=== PATIENT | male | born 1955 | race African-American/Black ===

== ENCOUNTER 2016-07-21 11:48 | Inpatient (IN) | payer MEDICAID ==
[2016-07-21] MEDS ORDERED: FUROSEMIDE INJ/PF 100 MG/10 ML SDV IV ONE (12:00)
[2016-07-21] MEDS ORDERED: METHYLPREDNISOLONE INJ 125 MG/2 ML SDV IV ONE (12:01)
[2016-07-21] MEDS ORDERED: CEFTRIAXONE 2 GM/D5W RTU 50 ML IV ONE (12:02)
[2016-07-21] MEDS ORDERED: LORAZEPAM INJ 2 MG/1 ML VIAL IV ONE (12:03)
[2016-07-21] MEDS ORDERED: AZITHROMYCIN INJ 500 MG VIAL IV ONE (12:03)
[2016-07-21] MEDS: MAGNESIUM SULFATE/D5W 100 ML IV SCH ×2 (12:11→13:30)
[2016-07-21] MEDS ORDERED: ETOMIDATE INJ/PF 20 MG/10 ML SDV IV ONE ×2 (12:16→13:26)
[2016-07-21] MEDS ORDERED: PROPOFOL 100 ML IV ONE ×4 (12:16→17:48)
[2016-07-21] MEDS ORDERED: FENTANYL CITRATE INJ/PF 100 MCG/2 ML AMPUL ONE (12:34)
[2016-07-21 12:35] LABS: ARTERIAL BLOOD BASE EXCESS -7.3 mmol/L; ARTERIAL BLOOD O2 SATURATION 66.8 % (94-98)
[2016-07-21 12:36] LABS: ABSOLUTE BASOPHILS # (AUTO) 0.1 10^3/uL (0.0-0.2); ABSOLUTE EOSINOPHILS # (AUTO) 0.1 10^3/uL (0.0-0.6); ABSOLUTE LYMPHOCYTES (AUTO) 4.2 10^3/uL (0.5-4.7); ABSOLUTE NEUT (AUTO) 7.5 10^3/uL (1.7-8.2); BASOPHILS % (AUTO) 0.8 % (0-2); EOSINOPHILS % (AUTO) 1.1 % (0-6); HEMATOCRIT 41.4 % (37.9-51.0); HEMOGLOBIN 13.7 g/dL (13.5-17.0); HGB HCT DIFFERENCE -0.3; LYMPHOCYTES % (AUTO) 32.4 % (13-45); MEAN CORPUSCULAR HEMOGLOBIN 29.9 pg (27.0-33.4); MEAN CORPUSCULAR VOLUME 91 fl (80-97); MONOCYTES % (AUTO) 7.6 % (3-13); RED BLOOD COUNT 4.58 10^6/uL (4.35-5.55); RED CELL DISTRIBUTION WIDTH 15.5 % (11.5-14.0); SEGMENTED NEUTROPHILS % (AUTO) 58.1 % (42-78); WHITE BLOOD COUNT 12.8 10^3/uL (4.0-10.5)
[2016-07-21 12:56] LABS: ALANINE AMINOTRANSFERASE 103 U/L (21-72); ALBUMIN 3.4 g/dL (3.5-5.0); ALKALINE PHOSPHATASE 108 U/L (38-126); ANION GAP 15 (5-19); ASPARTATE AMINO TRANSFERASE 94 U/L (17-59); BILIRUBIN,TOTAL 0.3 mg/dL (0.2-1.3); BLOOD UREA NITROGEN 31 mg/dL (7-20); CALCIUM 8.5 mg/dL (8.4-10.2); CARBON DIOXIDE 21 mmol/L (22-30); CHLORIDE 109 mmol/L (98-107); CREATINE KINASE 73 U/L (55-170); CREATININE RESULT 3.71 mg/dL (0.52-1.25); GLUCOSE 215 mg/dL (75-110); POTASSIUM 4.3 mmol/L (3.6-5.0); SODIUM 144.7 mmol/L (137-145); TOTAL PROTEIN 6.2 g/dL (6.3-8.2)
--- NOTE | 2016-07-21 12:58 | ER Document Report ---
ED General - General Mode of Arrival: Medic Information source: Patient, Emergency Med Personnel TRAVEL OUTSIDE OF THE [place] IN LAST 30 DAYS: No - HPI Patient complains to provider of: Respiratory Distress Onset: This morning Onset/Duration: Gradual, Worse Associated symptoms: Shortness of breath <JOSÉ GARAY - Last Filed: 07/21/16 12:34> <LIZZETHGABRIELA - Last Filed: 07/21/16 13:58> <LUCIANA ANNE - Last Filed: 07/21/16 17:05> - General Chief Complaint: Breathing Difficulty Stated Complaint: SHORTNESS OF BREATH Notes: Patient is a 61-year-old male presenting to the emergency department via EMS concerned of difficulty breathing onset 06:00 this morning. EMS states that the patient called around 08:30 this morning, but he decided he did not want to come into the emergency department because his symptoms appeared to be resolving. Approximately 5 minutes after EMS left, they were called back to the patient's home, and the patient was in respiratory distress. Patient had a blood pressure of 206/119 and a heart rate of 109 according to EMS. Patient has a history of HIV, and patient states that yesterday he used a gram of cocaine. EMS states that patient's EKG was normal. Patient stated that his bilateral lower extremity amputation was due to blood clots. (JOSÉ GARAY) - Related Data Allergies/Adverse Reactions: No Known Allergies Allergy (Verified 02/27/16 15:21) Past Medical History - General Information source: Patient, Emergency Med Personnel - Social History Smoking Status: Current Every Day Smoker Drug Abuse: Cocaine Family History: Reviewed & Not Pertinent, CAD, CVA, DM, Hyperlipidemia, Hypertension, Malignancy - Past Medical History Cardiac Medical History: Reports: Hx DVT, Hx Heart Attack, Hx Hypercholesterolemia, Hx Hypertension, Hx Peripheral Vascular Disease, Hx Pulmonary Embolism Pulmonary Medical History: Reports: Hx Bronchitis Endocrine Medical History: Reports: Hx Diabetes Mellitus Type 1, Hx Diabetes Mellitus Type 2 Renal/ Medical History: Reports: Hx Renal Insufficiency GI Medical History: Reports: Hx Gastroesophageal Reflux Disease Musculoskeltal Medical History: 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, Reports Hx Musculoskeletal Trauma Infectious Medical History: Reports: Hx HIV Past Surgical History: Reports: Hx Orthopedic Surgery - bilateral amputation, R BKA, L AKA, Hx Vascular Surgery - stents right chest, left arm clot removed, IVC filter - Immunizations Immunizations up to date: Yes Hx Diphtheria, Pertussis, Tetanus Vaccination: Yes - 2012 Hx Pneumococcal Vaccination: 07/21/10 <JARRODJOSÉ - Last Filed: 07/21/16 12:34> Review of Systems - Review of Systems -: Yes ROS unobtainable due to patient's medical condition - Patient unable to speak well secondary severe respiratory distress. <JOSÉ GARAY - Last Filed: 07/21/16 12:34> Physical Exam - Vital signs Interpretation: Hypertensive, Tachycardic, Hypoxic, Tachypneic - General General appearance: Alert In distress: Severe - HEENT Head: Normocephalic, Atraumatic Eyes: Normal Pupils: PERRL - Respiratory Respiratory status: Respiratory distress, Tripod position Breath sounds: Decreased air movement - Bilaterally, Rales - Abdominal Inspection: Obese Bowel sounds: Normal Tenderness: Nontender Organomegaly: No organomegaly - Back Back: Normal, Nontender - Extremities General upper extremity: Normal inspection General lower extremity: Other - Bilateral Amputations. - Neurological Neuro grossly intact: Yes Cognition: Normal Star Coma Scale Eye Opening: Spontaneous Star Coma Scale Verbal: Oriented Sandy Coma Scale Motor: Obeys Commands Star Coma Scale Total: 15 Speech: Other - Only able to speak in one word sentences secondary respiratory distress. - Psychological Associated symptoms: Anxious - Skin Skin Temperature: Warm Skin Moisture: Diaphoretic Skin Color: Normal <JOSÉ GARAY - Last Filed: 07/21/16 12:34> Course - Laboratory Result Diagrams: 07/21/16 11:49 07/21/16 12:15 <JOSÉ GARAY - Last Filed: 07/21/16 12:34> - Laboratory Result Diagrams: 07/21/16 12:15 07/21/16 12:15 <GABRIELA MOREAU - Last Filed: 07/21/16 13:58> - Laboratory Result Diagrams: 07/21/16 12:15 07/21/16 12:15 - Diagnostic Test Radiology reviewed: Image reviewed, Reports reviewed <LUCIANA ANNE - Last Filed: 07/21/16 17:05> - Re-evaluation Re-evalutation: 07/21/16 13:58 I personally performed the services described in the documentation, reviewed and edited the documentation which was dictated to my scribe in my presence, and it accurately records my words and actions. Patient presented to the emergency department with severe respiratory distress and hypoxia tripoding also diaphoretic hypertensive reports a recent usage of cocaine. Immediately at the bedside he was satting only 75% on 100% nonrebreather. Acute stat portable chest x-ray interpreted by myself prior to radiology interpretation is acute CHF I gave him 100 of Lasix 125 of Solu- Medrol IV antibiotics he did not turn around blood gas came back after patient decision was made to intubate him. He was extremely difficult intubation which I got on one attempt but he had some deformity of his airway some soft tissue mass and very narrow cords is able to pass a 7/2 ET tube without any difficulty. Patient required multiple doses of differently and paralytics to keep him sedated. I ordered a CT PE study when asked the nurse why it hasn't been done yet she said that the tech said the radiologist refused to do because the elevated creatinine I called Dr. Jose Manuel Richard said that was my call and I'm assuming the risk because I think the the risk of missing a pulmonary embolism outweighs the creatinine level and at this time I wanted stat CT PE study because it would make a difference in her need to transfer this patient or not. (GABRIELA MOREAU) 07/21/16 17:04 Dr. Becerril contacted per Dr. Moreau request for admission to ICU. He agrees to admit to ICU. (LUCIANA ANNE) - Vital Signs Vital signs: Temp Pulse Resp BP Pulse Ox 96.3 F L 16 141/92 H 96 07/21/16 13:18 07/21/16 17:01 07/21/16 17:01 07/21/16 17:01 (GABRIELA MOREAU) (LUCIANA ANNE) - Laboratory Laboratory results interpreted by me: 07/21/16 07/21/16 07/21/16 12:11 12:15 12:15 WBC 12.8 H RDW 15.5 H Carbonic Acid 1.67 H ABG pH 7.20 L* ABG pCO2 55.4 H ABG pO2 42.3 L ABG O2 Saturation 66.8 L Chloride 109 H Carbon Dioxide 21 L BUN 31 H Creatinine 3.71 H Est GFR ( Amer) 20 L Est GFR (Non-Af Amer) 17 L Glucose 215 H Lactic Acid AST 94 H ALT 103 H Total Protein 6.2 L Albumin 3.4 L Urine Protein Urine Glucose (UA) 07/21/16 07/21/16 12:15 13:00 WBC RDW Carbonic Acid ABG pH ABG pCO2 ABG pO2 ABG O2 Saturation Chloride Carbon Dioxide BUN Creatinine Est GFR ( Amer) Est GFR (Non-Af Amer) Glucose Lactic Acid 2.6 H AST ALT Total Protein Albumin Urine Protein 100 H Urine Glucose (UA) 150 H (GABRIELA MOREAU) (LUCIANA ANNE) Procedures - Intubation Orotracheal Time of Intubation: 12:15 Airway evaluation: Poss. upper airway obst. - Large, soft fleshy tissue mass. Patient extremely difficult airway with very narrow cords. Just barely able to pass a 7 ETT tube. Seems to be some distortion of the anatomy. Medications: Etomidate, Succinylcholine, Fentanyl, Diprivan, Other - Rocuronium Intubation method: Orotracheal ETT size: 7.0 ETT secured at: Lips ETT secured at (cm): 24 Breath Sounds after Intubation: Equal End tidal CO2 confirmed: Yes Post Intubation Xray: Yes Intubation Complications: No complications <JOSÉ GARAY - Last Filed: 07/21/16 12:34> Discharge <JOSÉ GARAY - Last Filed: 07/21/16 12:34> <GABRIELA MOREAU - Last Filed: 07/21/16 13:58> - [facility] Unit Admitted: ICU <LUCIANA ANNE - Last Filed: 07/21/16 17:05> - Discharge Clinical Impression: Cocaine abuse Respiratory failure Qualifiers: Chronicity: acute Respiratory failure complication: hypoxia Qualified Code(s): J96.01 - Acute respiratory failure with hypoxia Condition: Fair Disposition: ADMITTED INPATIENT Scribe Documentation - Scribe Written by Scribe:: José Garay 07/21/2016 12:59 acting as scribe for :: Lizzeth <JOSÉ GARAY - Last Filed: 07/21/16 12:34>
[2016-07-21 13:08] LABS: CREATINE KINASE MB 2.13 ng/mL (<4.55)
[2016-07-21 13:12] LABS: TROPONIN I 0.092 ng/mL
[2016-07-21] MEDS ORDERED: VECURONIUM BROMIDE INJ 10 MG VIAL IV ONE ×2 (13:14→13:15)
[2016-07-21] MEDS ORDERED: LIDOCAINE 0.5% INJ-PF (5 MG/ML) 50 ML SDV NEB ONE (13:15)
[2016-07-21] MEDS ORDERED: SUCCINYLCHOLINE CHLORIDE INJ 200 MG/10 ML VIAL IV ONE (13:25)
[2016-07-21] MEDS ORDERED: FENTANYL CITRATE INJ/PF 100 MCG/2 ML AMPUL IV ONE (13:26)
[2016-07-21] MEDS ORDERED: ROCURONIUM BROMIDE INJ 50 MG/5 ML VIAL IV ONE ×2 (13:27→15:23)
[2016-07-21 14:01] LABS: APPEARANCE,URINE CLEAR; BILIRUBIN,URINE NEGATIVE (NEGATIVE); GLUCOSE, URINE 150 mg/dL (NEGATIVE); KETONES,URINE NEGATIVE (NEGATIVE); LEUKOCYTE ESTERASE,URINE NEGATIVE (NEGATIVE); NITRITE,URINE NEGATIVE (NEGATIVE); PROTEIN,URINE 100 mg/dL (NEGATIVE); URINE SPECIFIC GRAVITY 1.009; UROBILINOGEN,URINE NEGATIVE mg/dL (<2.0)
[2016-07-21 14:17] LABS: URINE BARBITURATES SCREEN NEGATIVE; URINE METHADONE SCREEN NEGATIVE; URINE PHENCYCLIDINE SCREEN NEGATIVE
--- NOTE | 2016-07-21 15:06 | EKG REPORT ---
SEVERITY:- ABNORMAL ECG - SINUS TACHYCARDIA LEFT AXIS DEVIATION LEFT VENTRICULAR HYPERTROPHY NONSPECIFIC ANTEROLATERAL ST-T CHANGES : Confirmed by: Marco Young MD 21-Jul-2016 15:05:54
[2016-07-21] MEDS ORDERED: SUCCINYLCHOLINE CHLORIDE INJ 200 MG/10 ML VIAL ONE (15:23)
[2016-07-21] MEDS ORDERED: ONDANSETRON HCL INJ/PF 4 MG/2 ML SDV IV PRN (17:46)
[2016-07-21] MEDS ORDERED: PROPOFOL 100 ML IV PRN (17:59)
[2016-07-21] MEDS ORDERED: FUROSEMIDE 80 MG TABLET PO SCH (18:00)
[2016-07-21] MEDS ORDERED: HYDRALAZINE HCL INJ/PF 20 MG/1 ML SDV IV PRN (18:02)
[2016-07-21] MEDS ORDERED: MIDAZOLAM HCL 100 ML IV PRN (18:02)
[2016-07-21] MEDS ORDERED: INSULIN REG, HUMAN 100 UNIT/ML 3 ML VIAL (PYX) SUBCUT PRN (18:04)
[2016-07-21] MEDS ORDERED: GLUCAGON,HUMAN RECOMB 1 MG INJ IM PRN (18:04)
[2016-07-21] MEDS ORDERED: DEXTROSE 50%-WATER 25 GM/50 ML DISP.SYRIN IV PRN ×2 (18:04)
[2016-07-21] MEDS ORDERED: DEXTROSE 40% GEL 15 GM TUBE PO PRN ×2 (18:04)
[2016-07-21] MEDS ORDERED: MIDAZOLAM HCL 100 ML IV ONE (18:17)
--- NOTE | 2016-07-21 18:26 | PDOC H&P ---
History of Present Illness Admission Date/PCP: 07/21/16 17:05 Patient complains of: Respiratory distress History of Present Illness: KRISTY CANTU is a 61 year old male with HIV and substance abuse with cocaine reportedly was doing well until early this morning an ambulance was called as the patient was complaining of shortness of breath. He was eventually getting better and the patient refused to go to the hospital as it is improving. No reported fever or chills temperature spikes or paroxysmal coughing. Patient apparently used cocaine. A few hours later the ambulance was called again as the patient is in respiratory distress. Upon arrival systolic blood pressure was 206/119. The patient was placed on nonrebreather mask and was transferred to the emergency room. In the emergency room the patient received 100 mg of Lasix as chest x-ray shows pulmonary vascular congestion. Intravenous steroid was likewise given as well as nebulizers. Magnesium were likewise given. O2 saturation in the 80s despite measures. Patient developing altered level of consciousness and eventually intubation was performed. Patient did diurese well. CT scan of the chest shows pleural effusion but no pulmonary embolism. Patient is intubated and sedated. No other information available at this time. Information unobtainable. Past Medical History Past Medical History: Medication reconciliation pending verification from the patient's pharmacist. Cardiac Medical History: Reports: DVT, Myocardial Infarction, Hyperlipidema, Hypertension, Peripheral Vascular Disease, Pulmonary Embolism Pulmonary Medical History: Reports: Bronchitis Denies: Asthma, Chronic Obstructive Pulmonary Disease (COPD), Pneumonia Neurological Medical History: Denies: Seizures GI Medical History: Reports: Gastroesophageal Reflux Disease Musculoskeltal Medical History: Denies: Arthritis Hematology: Denies: Anemia Infectious Medical History: Reports: HIV Past Surgical History Past Surgical History: Reports: Orthopedic Surgery - bilateral amputation, R BKA , L AKA, Vascular Surgery - stents right chest, left arm clot removed, IVC filter, Other - Endoscopy Social History Smoking Status: Current Every Day Smoker Frequency of Alcohol Use: Social Hx Recreational Drug Use: Yes Drugs: Cocaine Hx Prescription Drug Abuse: No Family History Family History: CAD, CVA, DM, Hyperlipidemia, Hypertension, Malignancy Family History: Unobtainable due to patient condition. Information obtained from prior records. Parental Family History Reviewed: No - unobtainable Children Family History Reviewed: No Sibling(s) Family History Reviewed.: No Medication/Allergy Home Medications: Amlodipine Besylate 10 mg PO DAILY 02/17/16 Emtricitabine/Tenofovir [Truvada 200 mg-300 mg Tablet] 1 each PO Q2D 09/06/15 Enoxaparin Sodium [Lovenox Inj 100 mg/1 ml Disp.syrin] 100 mg SUBCUT Q12 Lisinopril [Zestril] 2.5 mg PO Q12H 09/06/15 Lopinavir/Ritonavir [Kaletra 200-50 mg Tablet] 2 each PO BID 09/06/15 Pravastatin Sodium 40 mg PO DAILY 09/06/15 Oxycodone HCl/Acetaminophen [Percocet 5-325 mg Tablet] 1 - 2 tab PO Q4H PRN #15 tablet 02/09/16 Dicyclomine HCl [Bentyl 20 mg Tablet] 20 mg PO DAILY 02/27/16 Hydrocodone/Acetaminophen [[place] 5-325 mg Tablet] 1 tab PO Q4 PRN #16 tablet Ondansetron [Zofran Odt 4 mg Tablet] 1 tab PO Q4H PRN #15 tab.rapdis 03/02/16 Methylprednisolone [Medrol Dosepack (4 mg/Tab) 21 Tab/Dosepak] 4 mg PO ASDIR PRN #21 tab.ds.pk 03/05/16 Dicyclomine HCl [Bentyl 20 mg Tablet] 20 mg PO QID #20 tablet 03/15/16 Peg 3350/Na Sulf,Bicarb,Cl/KCl [Golytely Packet] 1 each PO ONCE PRN #1 powd.pack 03/15/16 Allergies/Adverse Reactions: No Known Allergies Allergy (Verified 02/27/16 15:21) Review of Systems ROS unobtainable: Due to endotracheal tube, Due to mental status Physical Exam Vital Signs: Temp Pulse Resp BP Pulse Ox 96.3 F L 16 141/92 H 97 07/21/16 13:18 07/21/16 17:06 07/21/16 17:06 07/21/16 17:06 Intake & Output 07/20/16 07/21/16 07/22/16 06:59 06:59 06:59 Output Total 1700 Balance -1700 General appearance: PRESENT: no acute distress, other - Intubated, sedated Head exam: PRESENT: atraumatic, normocephalic Eye exam: PRESENT: conjunctiva pale, other - Pupils are sluggish bilateral. ABSENT: conjunctival injection, nystagmus, scleral icterus Ear exam: PRESENT: normal external ear exam. ABSENT: drainage Mouth exam: PRESENT: moist, neck supple Neck exam: ABSENT: carotid bruit, JVD, thyromegaly Respiratory exam: PRESENT: clear to auscultation ramila - Anteriorly, crackles - Occasional posteriorly, rales - Posteriorly in the lower fisher. ABSENT: accessory muscle use, rhonchi, wheezes Cardiovascular exam: PRESENT: RRR, tachycardia. ABSENT: diastolic murmur, gallop, systolic murmur Pulses: PRESENT: normal carotid pulses Vascular exam: PRESENT: normal capillary refill GI/Abdominal exam: PRESENT: hypoactive bowel sounds, soft. ABSENT: distended, organolmegaly Rectal exam: PRESENT: deferred Gentrourinary exam: PRESENT: indwelling catheter Extremities exam: PRESENT: other - Above-knee amputation and left, below knee amputation on the right Neurological exam: PRESENT: altered - Sedated and intubated on Diprivan drip Psychiatric exam: ABSENT: agitated Focused psych exam: ABSENT: restlessness Skin exam: PRESENT: dry, warm. ABSENT: cyanosis Results Impressions: Chest X-Ray 07/21/16 11:49 IMPRESSION: CARDIAC ENLARGEMENT. VASCULAR CONGESTION WITH SMALL RIGHT PLEURAL EFFUSION. Chest/Abdomen CTA 07/21/16 13:00 IMPRESSION: NO PULMONARY EMBOLI. SMALL BILATERAL PLEURAL EFFUSIONS. SATISFACTORY PLACEMENT ENDOTRACHEAL TUBE AND NASOGASTRIC TUBE. OTHERWISE STABLE APPEARANCE OF THE CHEST. Assessment & Plan - Diagnosis (1) Acute hypoxemic respiratory failure Is this a current diagnosis for this admission?: Yes (2) Acute on chronic combined systolic and diastolic congestive heart failure Is this a current diagnosis for this admission?: Yes (3) Hypertensive emergency Is this a current diagnosis for this admission?: Yes (4) Leukocytosis Qualifiers: Leukocytosis type: unspecified Qualified Code(s): D72.829 - Elevated white blood cell count, unspecified Is this a current diagnosis for this admission?: Yes (5) Chronic kidney disease, stage IV (severe) Is this a current diagnosis for this admission?: Yes (6) Cocaine abuse Is this a current diagnosis for this admission?: Yes (7) History of pulmonary embolism Is this a current diagnosis for this admission?: Yes (8) Hyperlipidemia Qualifiers: Hyperlipidemia type: unspecified Qualified Code(s): E78.5 - Hyperlipidemia, unspecified Is this a current diagnosis for this admission?: Yes (9) Hypercoagulable state Is this a current diagnosis for this admission?: Yes (10) HIV (human immunodeficiency virus infection) Is this a current diagnosis for this admission?: Yes - Time Time Spent: 50 to 70 Minutes - Inpatient Certification Based on my medical assessment, after consideration of the patient's comorbidities, presenting symptoms, or acuity I expect that the services needed warrant INPATIENT care.: Yes I certify that my determination is in accordance with my understanding of Medicare's requirements for reasonable and necessary INPATIENT services [42 CFR 412.3e].: Yes Medical Necessity: Significant Comorbidiites Make Outpatient Treatment Too Risky , Need Close Monitoring Due to Risk of Patient Decompensation, Need For Continuous Telemetry Monitoring, Risk of Complication if Not Cared For in Hospital, Risk of Diagnosis Which Will Require Inpatient Eval/Care/Monitoring Post Hospital Care: D/C Fire Official Documentation - Plan Summary Plan Summary: The patient will be admitted to the intensive care unit. We will continue ventilatory support and consult pulmonary for management. In the meantime will obtain 2-D echocardiogram and begin intravenous Lasix with the addition of Zaroxolyn and serially monitoring creatinine and electrolytes. We will continue on antihypertensive medication at home, add nitroglycerin paste and as needed hydralazine intravenously for systolic blood pressure greater than 180. We will send cultures of the blood and sputum. We will send sputum for PCP. We will check CD4 count. Empiric antibiotic with cefepime intravenously. Heparin for DVT prophylaxis. We will continue diprivan, add Versed if needed. We will insert nasogastric tube. Place the patient on [place] catheter for input and output. Further testing depends on initial evaluation and response to treatment as outlined above.
[2016-07-21 18:30] LABS: ARTERIAL BLOOD BASE EXCESS -5.2 mmol/L; ARTERIAL BLOOD O2 SATURATION 95.5 % (94-98)
[2016-07-21] MEDS: PROPOFOL 100 ML IV PRN ×2 (18:56→20:48)
[2016-07-21 19:41] LABS: THYROID STIMULATING HORMONE 0.41 uIU/mL (0.47-4.68)
[2016-07-21] MEDS: NITROGLYCERIN 2% OINTMENT 1 GM PACKET TP SCH (19:59)
[2016-07-21] MEDS ORDERED: INFLUENZA ADLT QUAD (36MOS+) 2016-17 VAC 0.5 ML SYR IM PRN (21:12)
[2016-07-21] MEDS ORDERED: CEFEPIME 1 GM/D5W RTU 1 GM/50 ML RTUPB IV ONE (21:37)
[2016-07-21] MEDS: HEPARIN SOD (PORCINE) 5,000 UNIT/ML 1 ML SYRINGE SUBCUT SCH (21:49)
[2016-07-21] MEDS: FAMOTIDINE INJ/PF 20 MG/2 ML SDV IV SCH (21:49)
[2016-07-21] MEDS: CEFEPIME 1 GM/D5W RTU 50 ML IV SCH (21:50)
[2016-07-21] MEDS ORDERED: METOLAZONE 2.5 MG TABLET NG SCH (22:00)
[2016-07-22] MEDS: NITROGLYCERIN 2% OINTMENT 1 GM PACKET TP SCH ×4 (01:01→17:49)
[2016-07-22] MEDS: PROPOFOL 100 ML IV PRN ×4 (02:15→17:48)
[2016-07-22] MEDS: MIDAZOLAM HCL 100 ML IV PRN (02:15)
[2016-07-22] MEDS: HEPARIN SOD (PORCINE) 5,000 UNIT/ML 1 ML SYRINGE SUBCUT SCH ×3 (05:13→22:07)
[2016-07-22 05:43] LABS: ARTERIAL BLOOD O2 SATURATION 94.3 % (94-98)
[2016-07-22 06:17] LABS: ABSOLUTE BASOPHILS # (AUTO) 0.1 10^3/uL (0.0-0.2); ABSOLUTE LYMPHOCYTES (AUTO) 1.4 10^3/uL (0.5-4.7); ABSOLUTE MONOCYTES (AUTO) 1.1 10^3/uL (0.1-1.4); ABSOLUTE NEUT (AUTO) 8.3 10^3/uL (1.7-8.2); BASOPHILS % (AUTO) 0.5 % (0-2); EOSINOPHILS % (AUTO) 0.1 % (0-6); HEMATOCRIT 37.2 % (37.9-51.0); HEMOGLOBIN 12.5 g/dL (13.5-17.0); HGB HCT DIFFERENCE 0.3; LYMPHOCYTES % (AUTO) 12.6 % (13-45); MEAN CORPUSCULAR HEMOGLOBIN 30.2 pg (27.0-33.4); MEAN CORPUSCULAR HGB CONC 33.7 g/dL (32.0-36.0); MEAN CORPUSCULAR VOLUME 90 fl (80-97); MONOCYTES % (AUTO) 10.4 % (3-13); RED BLOOD COUNT 4.16 10^6/uL (4.35-5.55); RED CELL DISTRIBUTION WIDTH 15.2 % (11.5-14.0); SEGMENTED NEUTROPHILS % (AUTO) 76.4 % (42-78); WHITE BLOOD COUNT 10.9 10^3/uL (4.0-10.5)
[2016-07-22 06:36] LABS: ALANINE AMINOTRANSFERASE 86 U/L (21-72); ALBUMIN 3.5 g/dL (3.5-5.0); ALKALINE PHOSPHATASE 109 U/L (38-126); ANION GAP 13 (5-19); ASPARTATE AMINO TRANSFERASE 46 U/L (17-59); BILIRUBIN,TOTAL 0.3 mg/dL (0.2-1.3); BLOOD UREA NITROGEN 40 mg/dL (7-20); CALCIUM 8.4 mg/dL (8.4-10.2); CARBON DIOXIDE 22 mmol/L (22-30); CHLORIDE 106 mmol/L (98-107); CREATINE KINASE 53 U/L (55-170); CREATININE RESULT 4.22 mg/dL (0.52-1.25); GLUCOSE 90 mg/dL (75-110); MAGNESIUM 2.5 mg/dL (1.6-2.3); POTASSIUM 4.4 mmol/L (3.6-5.0); TOTAL PROTEIN 5.9 g/dL (6.3-8.2)
[2016-07-22 06:46] LABS: TROPONIN I 0.282 ng/mL
--- NOTE | 2016-07-22 08:21 | PDOC PROGRESS REPORT ---
Subjective Progress Note for:: 07/22/16 Subjective:: Patient on ventilator. On Versed and Diprivan for sedation. Blood pressure is in the low normal side. Chest x-ray shows some mild congestion. No reported chills or fever. No diarrhea or temperature spikes reported. Creatinine increased. Last ejection fraction is 35%. Patient presented acutely rather than chronic to suggest PCP. Physical Exam Vital Signs: Temp Pulse Resp BP Pulse Ox 99.1 F 92 16 127/87 H 95 07/22/16 07:00 07/22/16 04:00 07/22/16 06:00 07/22/16 05:46 07/22/16 07:00 Intake & Output 07/21/16 07/22/16 07/23/16 06:59 06:59 06:59 Intake Total 614 Output Total 1850 Balance -1236 Weight 70.5 kg General appearance: PRESENT: other - Intubated and sedated Head exam: PRESENT: normocephalic Eye exam: PRESENT: conjunctiva pale Mouth exam: PRESENT: moist, neck supple Neck exam: ABSENT: JVD Respiratory exam: PRESENT: clear to auscultation ramila. ABSENT: rhonchi, wheezes Cardiovascular exam: PRESENT: RRR GI/Abdominal exam: PRESENT: hypoactive bowel sounds, soft. ABSENT: distended, tenderness Extremities exam: PRESENT: other - Above-knee amputation on the left below-knee amputation on the right Neurological exam: PRESENT: altered - Sedated Skin exam: PRESENT: dry, warm. ABSENT: cyanosis Results Laboratory Results: 07/22/16 06:07 07/22/16 06:07 07/21/16 07/21/16 07/22/16 18:19 18:38 05:24 WBC RBC Hgb Hct MCV MCH MCHC RDW Plt Count Seg Neutrophils % Lymphocytes % Monocytes % Eosinophils % Basophils % Absolute Neutrophils Absolute Lymphocytes Absolute Monocytes Absolute Eosinophils Absolute Basophils Carbonic Acid 1.27 1.24 HCO3/H2CO3 Ratio 16:1 18:1 ABG pH 7.31 L 7.37 ABG pCO2 42.1 41.3 ABG pO2 84.3 73.1 L ABG HCO3 20.8 23.2 ABG O2 Saturation 95.5 94.3 ABG Base Excess -5.2 -2.0 FiO2 40% 30% Sodium Potassium Chloride Carbon Dioxide Anion Gap BUN Creatinine Est GFR ( Amer) Est GFR (Non-Af Amer) Glucose Calcium Magnesium Total Bilirubin AST ALT Alkaline Phosphatase Total Protein Albumin TSH 0.41 L Free T4 1.25 07/22/16 07/22/16 06:07 06:07 WBC 10.9 H RBC 4.16 L Hgb 12.5 L Hct 37.2 L MCV 90 MCH 30.2 MCHC 33.7 RDW 15.2 H Plt Count 215 Seg Neutrophils % 76.4 Lymphocytes % 12.6 L Monocytes % 10.4 Eosinophils % 0.1 Basophils % 0.5 Absolute Neutrophils 8.3 H Absolute Lymphocytes 1.4 Absolute Monocytes 1.1 Absolute Eosinophils 0.0 Absolute Basophils 0.1 Carbonic Acid HCO3/H2CO3 Ratio ABG pH ABG pCO2 ABG pO2 ABG HCO3 ABG O2 Saturation ABG Base Excess FiO2 Sodium 141.0 Potassium 4.4 Chloride 106 Carbon Dioxide 22 Anion Gap 13 BUN 40 H Creatinine 4.22 H Est GFR ( Amer) 17 L Est GFR (Non-Af Amer) 14 L Glucose 90 Calcium 8.4 Magnesium 2.5 H Total Bilirubin 0.3 AST 46 ALT 86 H Alkaline Phosphatase 109 Total Protein 5.9 L Albumin 3.5 TSH Free T4 07/21/16 07/21/16 07/22/16 18:38 18:38 00:29 Creatine Kinase 72 55 Troponin I 0.186 NT-Pro-B Natriuret Pep 07/22/16 07/22/16 07/22/16 00:29 06:07 06:07 Creatine Kinase 53 L Troponin I 0.261 0.282 NT-Pro-B Natriuret Pep 25932 H Impressions: Chest/Abdomen CTA 07/21/16 13:00 IMPRESSION: NO PULMONARY EMBOLI. SMALL BILATERAL PLEURAL EFFUSIONS. SATISFACTORY PLACEMENT ENDOTRACHEAL TUBE AND NASOGASTRIC TUBE. OTHERWISE STABLE APPEARANCE OF THE CHEST. Chest X-Ray 07/22/16 06:00 IMPRESSION: Stable cardiomegaly with mild pulmonary vascular congestion. No focal opacities. Support tubes and lines are unchanged. SUPPORT DEVICE(S) IN EXPECTED LOCATIONS. Assessment & Plan - Diagnosis (1) Acute hypoxemic respiratory failure Is this a current diagnosis for this admission?: Yes (2) Acute on chronic combined systolic and diastolic congestive heart failure Is this a current diagnosis for this admission?: Yes (3) Hypertensive emergency Is this a current diagnosis for this admission?: Yes (4) Leukocytosis Qualifiers: Leukocytosis type: unspecified Qualified Code(s): D72.829 - Elevated white blood cell count, unspecified Is this a current diagnosis for this admission?: Yes (5) Chronic kidney disease, stage IV (severe) Is this a current diagnosis for this admission?: Yes (6) Cocaine abuse Is this a current diagnosis for this admission?: Yes (7) History of pulmonary embolism Is this a current diagnosis for this admission?: Yes (8) Hyperlipidemia Qualifiers: Hyperlipidemia type: unspecified Qualified Code(s): E78.5 - Hyperlipidemia, unspecified Is this a current diagnosis for this admission?: Yes (9) Hypercoagulable state Is this a current diagnosis for this admission?: Yes (10) HIV (human immunodeficiency virus infection) Is this a current diagnosis for this admission?: Yes - Time Time Spent with patient: 25-34 minutes - Plan Summary Plan Summary: Consult pulmonary for ventilator management. Consult nephrology for worsening creatinine. Probably over diuresis. We will give 500 mL of normal saline and decrease diuretics to 40 mg daily of Lasix. We will discontinue Zaroxolyn. Recheck chest x-ray and creatinine. Obtain a renal ultrasound. We will continue current antibiotic. We will obtain sputum for PCP. Follow cultures. Awaiting echocardiogram.
[2016-07-22] MEDS: AMLODIPINE BESYLATE 10 MG TABLET NG SCH (10:24)
[2016-07-22] MEDS: FUROSEMIDE 80 MG TABLET PO SCH (10:24)
[2016-07-22] MEDS: FAMOTIDINE INJ/PF 20 MG/2 ML SDV IV SCH ×2 (10:24→22:08)
[2016-07-22] MEDS: CEFEPIME 1 GM/D5W RTU 50 ML IV SCH ×2 (11:16→22:08)
--- NOTE | 2016-07-22 12:20 | EKG REPORT ---
SEVERITY:- ABNORMAL ECG - SINUS RHYTHM PROLONGED QT INTERVAL : Confirmed by: Beulah Storm 22-Jul-2016 12:20:17
--- NOTE | 2016-07-22 12:33 | PDOC CONSULTATION ---
Consultation Consult Date: 07/22/16 Attending physician:: ALBERT BECERRIL Consult reason:: I was asked by Dr. Martinez to see this patient because of worsening kidney function. History of Present Illness Admission Date/PCP: 07/21/16 17:46 History of Present Illness: KRISTY CANTU is a 61 year old male with HIV and substance abuse with cocaine reportedly was doing well until early this morning an ambulance was called as the patient was complaining of shortness of breath. He was eventually getting better and the patient refused to go to the hospital as it is improving. No reported fever or chills temperature spikes or paroxysmal coughing. Patient apparently used cocaine. A few hours later the ambulance was called again as the patient is in respiratory distress. Upon arrival systolic blood pressure was 206/119. The patient was placed on nonrebreather mask and was transferred to the emergency room. In the emergency room the patient received 100 mg of Lasix as chest x-ray shows pulmonary vascular congestion. Intravenous steroid was likewise given as well as nebulizers. Magnesium were likewise given. O2 saturation in the 80s despite measures. Patient developing altered level of consciousness and eventually intubation was performed. Patient did diurese well. CT scan of the chest with IV contrast shows pleural effusion but no pulmonary embolism. Patient is intubated and sedated. There is a history of cocaine use in this patient and a possible use prior to admission. No other information available at this time. Information unobtainable. Patient was diurese overnight. So far he has -3 L of fluid balance based on intake and output. His blood pressure has gone down to as low as 76/50 for about 15 minutes according to the nurse early this morning. Currently his blood pressure ranging anywhere from 140s to 150s over 80s to 90s. When he came his kidney function shows a BUN of 31 creatinine of 3.71 today they are 40 and 4.22 with estimated GFR of 17 respectively. Review of records revealed that the patient does have underlying chronic kidney disease and on March 14, 2016 he had a BUN of 22 creatinine of 2.6 with estimated GFR for around 30. It' s not known whether he is following up with a casino attendant based from records. His urinalysis shows shown some mild amount of proteinuria. His diuretics dose has been reduced by Dr. Becerril on this morning. He also had a kidney ultrasound done which has not been officially read yet. I reviewed a kidney ultrasound and he does have bilateral small kidneys with right kidney measuring only at 7.8 cm in the left kidney is about 6.7 cm. There is increase in echogenicity bilaterally. The left kidney has some questionable either extrarenal pelvis or a complex is, we will wait for official radiology report to confirm this. Past Medical History Cardiac Medical History: Reports: DVT, Hyperlipidemia, Myocardial Infarction, Peripheral Vascular Disease, Pulmonary Embolism Pulmonary Medical History: Reports: Bronchitis Endocrine Medical History: Reports: Diabetes Mellitus Type 1, Diabetes Mellitus Type 2 GI Medical History: Reports: Gastroesophageal Reflux Disease Infectious Medical History: Reports: HIV Past Surgical History Past Surgical History: Reports: Orthopedic Surgery - bilateral amputation, R BKA , L AKA, Vascular Surgery - stents right chest, left arm clot removed, IVC filter, Other - Endoscopy Social History Information Source: [facility] Records Lives with: Alone Smoking Status: Current Every Day Smoker Frequency of Alcohol Use: Social Hx Recreational Drug Use: Yes Drugs: Cocaine Hx Prescription Drug Abuse: No Family History Family History: Other - Not obtainable at this time due to being sedated and intubated. Parental Family History Reviewed: No - patient sedated and intubated Children Family History Reviewed: No Sibling(s) Family History Reviewed.: No Medication/Allergy Home Medications: Amlodipine Besylate 10 mg PO DAILY 09/06/15 Emtricitabine/Tenofovir [Truvada 200 mg-300 mg Tablet] 1 each PO Q2D 09/06/15 Lisinopril [Zestril] 2.5 mg PO Q12H 09/06/15 Lopinavir/Ritonavir [Kaletra 200-50 mg Tablet] 2 each PO BID 09/06/15 Pravastatin Sodium 40 mg PO DAILY 09/06/15 Pantoprazole Sodium [Protonix] 40 mg PO DAILY 07/22/16 Allergies/Adverse Reactions: No Known Allergies Allergy (Verified 02/27/16 15:21) Review of Systems ROS unobtainable: Due to endotracheal tube, Due to mental status Physical Exam Vital Signs: Temp Pulse Resp BP Pulse Ox 99.9 F 100 13 151/92 H 99 07/22/16 10:25 07/22/16 10:00 07/22/16 10:25 07/22/16 10:25 07/22/16 10:25 Intake & Output 07/21/16 07/22/1607/23/17 06:59 06:59 06:59 Intake Total 614 Output Total 1850 200 Balance -1236 -200 Weight 70.5 kg 70.5 kg Exam: General appearance: Patient is intubated and sedated, well-developed, well- nourished Head exam: PRESENT: atraumatic, normocephalic Eye exam: PRESENT: Conjunctiva [place], EOMI, PERRLA. ABSENT: conjunctival injection, scleral icterus Mouth exam: PRESENT: ET tube in place Neck exam: PRESENT: full ROM. ABSENT: carotid bruit, JVD, lymphadenopathy, thyromegaly Respiratory exam: PRESENT: Coarse to auscultation bilaterally. Positive diffuse bilateral rhonchi and crackles ABSENT: stridor, wheezes Cardiovascular exam: PRESENT: RRR, +S1, +S2. ABSENT: systolic murmur Pulses: PRESENT: normal radial pulses GI/Abdominal exam: PRESENT: normal bowel sounds, soft. ABSENT: guarding, mass, tenderness Rectal exam: deferred Extremities exam: PRESENT: Has right BKA stump and left AKA stump ABSENT: pedal edema Musculoskeletal: PRESENT: full ROM. ABSENT: deformity Neurological exam: PRESENT: Sedated, CN II-XII grossly intact. ABSENT: motor sensory deficit Psychiatric exam: Cannot be assessed at this time Skin exam: PRESENT: intact, dry, warm. ABSENT: rash Results Laboratory Results: 07/22/16 06:07 07/22/16 06:07 07/21/16 07/21/16 07/22/16 18:19 18:38 05:24 WBC RBC Hgb Hct MCV MCH MCHC RDW Plt Count Seg Neutrophils % Lymphocytes % Monocytes % Eosinophils % Basophils % Absolute Neutrophils Absolute Lymphocytes Absolute Monocytes Absolute Eosinophils Absolute Basophils Carbonic Acid 1.27 1.24 HCO3/H2CO3 Ratio 16:1 18:1 ABG pH 7.31 L 7.37 ABG pCO2 42.1 41.3 ABG pO2 84.3 73.1 L ABG HCO3 20.8 23.2 ABG O2 Saturation 95.5 94.3 ABG Base Excess -5.2 -2.0 FiO2 40% 30% Sodium Potassium Chloride Carbon Dioxide Anion Gap BUN Creatinine Est GFR ( Amer) Est GFR (Non-Af Amer) Glucose Calcium Magnesium Total Bilirubin AST ALT Alkaline Phosphatase Total Protein Albumin TSH 0.41 L Free T4 1.25 07/22/16 07/22/16 06:07 06:07 WBC 10.9 H RBC 4.16 L Hgb 12.5 L Hct 37.2 L MCV 90 MCH 30.2 MCHC 33.7 RDW 15.2 H Plt Count 215 Seg Neutrophils % 76.4 Lymphocytes % 12.6 L Monocytes % 10.4 Eosinophils % 0.1 Basophils % 0.5 Absolute Neutrophils 8.3 H Absolute Lymphocytes 1.4 Absolute Monocytes 1.1 Absolute Eosinophils 0.0 Absolute Basophils 0.1 Carbonic Acid HCO3/H2CO3 Ratio ABG pH ABG pCO2 ABG pO2 ABG HCO3 ABG O2 Saturation ABG Base Excess FiO2 Sodium 141.0 Potassium 4.4 Chloride 106 Carbon Dioxide 22 Anion Gap 13 BUN 40 H Creatinine 4.22 H Est GFR ( Amer) 17 L Est GFR (Non-Af Amer) 14 L Glucose 90 Calcium 8.4 Magnesium 2.5 H Total Bilirubin 0.3 AST 46 ALT 86 H Alkaline Phosphatase 109 Total Protein 5.9 L Albumin 3.5 TSH Free T4 07/21/16 07/21/16 07/22/16 18:38 18:38 00:29 Creatine Kinase 72 55 Troponin I 0.186 NT-Pro-B Natriuret Pep 07/22/16 07/22/16 07/22/16 00:29 06:07 06:07 Creatine Kinase 53 L Troponin I 0.261 0.282 NT-Pro-B Natriuret Pep 60214 H 03/14/16 22:51 BUN 22 H Creatinine 2.61 H Est GFR ( Amer) 30 L Impressions: Chest/Abdomen CTA 07/21/16 13:00 IMPRESSION: NO PULMONARY EMBOLI. SMALL BILATERAL PLEURAL EFFUSIONS. SATISFACTORY PLACEMENT ENDOTRACHEAL TUBE AND NASOGASTRIC TUBE. OTHERWISE STABLE APPEARANCE OF THE CHEST. Chest X-Ray 07/22/16 06:00 IMPRESSION: Stable cardiomegaly with mild pulmonary vascular congestion. No focal opacities. Support tubes and lines are unchanged. SUPPORT DEVICE(S) IN EXPECTED LOCATIONS. Kidney ultrasound done and report is pending. Assessment & Plan - Diagnosis (1) Acute kidney injury superimposed on chronic kidney disease Is this a current diagnosis for this admission?: YesPlan: Patient is nonoliguric. There are multifactorial causes causing worsening of kidney function. This factors include giving IV contrast, hemodynamic factors including hypertensive emergency with drastic decrease of blood pressure and acute onset of congestive heart failure pulmonary edema, and rapid diuresis. The patient's underlying chronic kidney disease could be secondary to hypertension with HIV as a risk factor. Patient seems to have underlying mild proteinuria and possible microhematuria. Patient has bilateral small and echogenic kidneys which confirmed chronic kidney disease. Agree with decreasing the dose of diuretics today. Continue to monitor kidney function and urine output. There is no urgent indication for any renal replacement therapy today but needs to be monitored very closely. Avoid any nephrotoxic agents. Maintain systolic blood pressure to around the range of 140 to 150s since the patient seems to have a known elevated baseline blood pressure. We'll check some labs. I will closely monitor the patient follow the patient with you. (2) Contrast dye induced nephropathy Is this a current diagnosis for this admission?: YesPlan: This most likely has a significant effect on worsening of the patient's kidney function acutely. (3) Hypertensive emergency Is this a current diagnosis for this admission?: YesPlan: If the patient did use cocaine acutely this could be induced by cocaine use. This could also have resulted to acute flash pulmonary edema leading to acute congestive heart failure. As mentioned maintain systolic blood pressure between 140 to 150s in this patient. Continue current medication. (4) Acute on chronic combined systolic and diastolic congestive heart failure Is this a current diagnosis for this admission?: YesPlan: Agree with low-dose diuretics for now (5) Acute hypoxemic respiratory failure Is this a current diagnosis for this admission?: Yes (6) Cocaine abuse Is this a current diagnosis for this admission?: Yes (7) HIV (human immunodeficiency virus infection) Is this a current diagnosis for this admission?: Yes - Notes Notes: Thank you very much for this consultation. Discussed with Dr. Becerril. - Time Time Spent: 50 to 70 Minutes
[2016-07-23] MEDS: NITROGLYCERIN 2% OINTMENT 1 GM PACKET TP SCH ×4 (00:08→18:00)
[2016-07-23] MEDS: PROPOFOL 100 ML IV PRN ×6 (00:24→21:51)
[2016-07-23] MEDS: ACETAMINOPHEN 325 MG TABLET NG PRN (00:24)
[2016-07-23 04:07] LABS: HEMATOCRIT 37.1 % (37.9-51.0); HEMOGLOBIN 12.5 g/dL (13.5-17.0); HGB HCT DIFFERENCE 0.4; MEAN CORPUSCULAR HEMOGLOBIN 29.8 pg (27.0-33.4); MEAN CORPUSCULAR HGB CONC 33.7 g/dL (32.0-36.0); MEAN CORPUSCULAR VOLUME 89 fl (80-97); RED BLOOD COUNT 4.19 10^6/uL (4.35-5.55); RED CELL DISTRIBUTION WIDTH 15.6 % (11.5-14.0); WHITE BLOOD COUNT 9.2 10^3/uL (4.0-10.5)
[2016-07-23] MEDS: MIDAZOLAM HCL 100 ML IV PRN (04:23)
[2016-07-23 04:43] LABS: ANION GAP 15 (5-19); BLOOD UREA NITROGEN 52 mg/dL (7-20); CARBON DIOXIDE 22 mmol/L (22-30); CHLORIDE 103 mmol/L (98-107); CREATININE RESULT 5.14 mg/dL (0.52-1.25); GLUCOSE 94 mg/dL (75-110); MAGNESIUM 2.4 mg/dL (1.6-2.3); PHOSPHORUS 7.9 mg/dL (2.5-4.5); SODIUM 140.4 mmol/L (137-145)
[2016-07-23 05:53] LABS: ARTERIAL BLOOD BASE EXCESS -1.1 mmol/L; ARTERIAL BLOOD O2 SATURATION 97.8 % (94-98)
[2016-07-23] MEDS: HEPARIN SOD (PORCINE) 5,000 UNIT/ML 1 ML SYRINGE SUBCUT SCH ×3 (06:50→21:00)
--- NOTE | 2016-07-23 10:30 | PDOC PROGRESS REPORT ---
Subjective Progress Note for:: 07/23/16 Subjective:: Patient is intubated and sedated. Physical Exam Vital Signs: Temp Pulse Resp BP Pulse Ox 98.1 F 90 26 H 103/56 L 97 07/23/16 08:00 07/23/16 08:00 07/23/16 08:00 07/23/16 08:00 07/23/16 08:00 Intake & Output 07/22/16 07/23/16 07/24/16 06:59 06:59 06:59 Intake Total 614 727 Output Total 1850 2790 150 Balance -1236 -2063 -150 Weight 70.5 kg 69.6 kg General appearance: PRESENT: no acute distress Head exam: PRESENT: atraumatic, normocephalic Eye exam: PRESENT: conjunctiva pink Ear exam: PRESENT: normal external ear exam Mouth exam: PRESENT: moist, tongue midline, other - ET tube in place. Neck exam: ABSENT: JVD, lymphadenopathy Respiratory exam: PRESENT: clear to auscultation ramila Cardiovascular exam: PRESENT: RRR. ABSENT: diastolic murmur, rubs, systolic murmur GI/Abdominal exam: PRESENT: normal bowel sounds, soft. ABSENT: distended, guarding, mass, organolmegaly, rebound, tenderness Extremities exam: PRESENT: full ROM, other - Patient is status post bilateral amputations.. ABSENT: calf tenderness, clubbing Neurological exam: PRESENT: other - Intubated and sedated. Psychiatric exam: PRESENT: other - Unable to assess Skin exam: PRESENT: dry, intact, warm. ABSENT: cyanosis, rash Results Laboratory Results: 07/23/16 03:44 07/23/16 03:44 07/23/16 07/23/16 07/23/16 03:44 03:44 05:45 WBC 9.2 RBC 4.19 L Hgb 12.5 L Hct 37.1 L MCV 89 MCH 29.8 MCHC 33.7 RDW 15.6 H Plt Count 183 Carbonic Acid 1.26 HCO3/H2CO3 Ratio 19:1 ABG pH 7.38 ABG pCO2 41.9 ABG pO2 106.1 H ABG HCO3 24.1 ABG O2 Saturation 97.8 ABG Base Excess -1.1 FiO2 35% Sodium 140.4 Potassium 4.0 Chloride 103 Carbon Dioxide 22 Anion Gap 15 BUN 52 H Creatinine 5.14 H Est GFR ( Amer) 14 L Est GFR (Non-Af Amer) 11 L Glucose 94 Calcium 8.0 L Phosphorus 7.9 H Magnesium 2.4 H 07/21/16 07/21/16 07/22/16 18:38 18:38 00:29 Creatine Kinase 72 55 Troponin I 0.186 NT-Pro-B Natriuret Pep 07/22/16 07/22/16 07/22/16 00:29 06:07 06:07 Creatine Kinase 53 L Troponin I 0.261 0.282 NT-Pro-B Natriuret Pep 95576 H Impressions: Chest/Abdomen CTA 07/21/16 13:00 IMPRESSION: NO PULMONARY EMBOLI. SMALL BILATERAL PLEURAL EFFUSIONS. SATISFACTORY PLACEMENT ENDOTRACHEAL TUBE AND NASOGASTRIC TUBE. OTHERWISE STABLE APPEARANCE OF THE CHEST. Renal Ultrasound 07/22/16 00:00 IMPRESSION: As above. Since 2011, kidneys have undergone atrophy and are quite echogenic. No mass. No obstruction. Chest X-Ray 07/23/16 06:00 IMPRESSION: Endotracheal and nasogastric tubes in good positioning. Minimal left basilar atelectasis Assessment & Plan - Diagnosis (1) Acute hypoxemic respiratory failure Is this a current diagnosis for this admission?: YesPlan: Most likely this was secondary to hypertensive urgency with acute pulmonary edema. Patient has improved and will possibly check weaning parameters if his neck CT is unremarkable. There was concern there possibly might be a mass when he was intubated. (2) Acute kidney injury superimposed on chronic kidney disease Is this a current diagnosis for this admission?: YesPlan: Patient most likely has ATN from hypertensive urgency and cocaine use. He is still making urine and will try to match his I&O. Nephrology has been consulted and we appreciate their input. (3) Cocaine abuse Is this a current diagnosis for this admission?: YesPlan: This most likely led to his hypertensive emergency but is improving. (4) HIV (human immunodeficiency virus infection) Is this a current diagnosis for this admission?: YesPlan: We are awaiting a CD4 count. His overall white blood cell count however has been appropriate. (5) Hypertensive emergency Is this a current diagnosis for this admission?: YesPlan: Improving. Our goal is to keep his blood pressure around the 150. (6) History of pulmonary embolism Is this a current diagnosis for this admission?: YesPlan: Continue with subcutaneous heparin. (7) Hyperlipidemia Qualifiers: Hyperlipidemia type: unspecified Qualified Code(s): E78.5 - Hyperlipidemia, unspecified Is this a current diagnosis for this admission?: Yes - Time Critical Time spent with patient: 15-24 minutes - Inpatient Certification Medical Necessity: Need Close Monitoring Due to Risk of Patient Decompensation
[2016-07-23] MEDS: FUROSEMIDE 80 MG TABLET PO SCH (10:34)
[2016-07-23] MEDS: AMLODIPINE BESYLATE 10 MG TABLET NG SCH (10:34)
[2016-07-23] MEDS: FAMOTIDINE INJ/PF 20 MG/2 ML SDV IV SCH ×2 (10:34→21:00)
--- NOTE | 2016-07-23 16:07 | PDOC PROGRESS REPORT ---
Subjective Progress Note for:: 07/23/16 Subjective:: Patient remains to be intubated and sedated. He continues to make good amount of urine output and has been -6 L with cumulative fluid balance since admission here in the ICU. Physical Exam Vital Signs: Temp Pulse Resp BP Pulse Ox 98.8 F 93 18 151/97 H 96 07/23/16 12:00 07/23/16 14:00 07/23/16 14:00 07/23/16 14:00 07/23/16 14:00 Intake & Output 07/22/16 07/23/16 07/24/16 06:59 06:59 06:59 Intake Total 614 727 Output Total 1850 2790 850 Balance -1235 -2062 -850 Weight 70.5 kg 69.6 kg Exam: General appearance: PRESENT: Patient is intubated and sedated Head exam: PRESENT: atraumatic, normocephalic Eye exam: PRESENT: conjunctiva slightly pale, PERRLA. ABSENT: scleral icterus Neck exam: ABSENT: JVD Respiratory exam: PRESENT: Normal breath sounds. ABSENT: crackles, rales, rhonchi, unlabored, wheezes Cardiovascular exam: PRESENT: Regular rate rhythm -+S1, +S2. ABSENT: diastolic murmur, systolic murmur GI/Abdominal exam: PRESENT: normal bowel sounds, soft. ABSENT: guarding, mass, tenderness Extremities exam: ABSENT: No edema Neurological exam: PRESENT: See dictated Skin exam: PRESENT: dry, warm, Results Laboratory Results: 07/23/16 03:44 07/23/16 03:44 07/23/16 07/23/16 07/23/16 03:44 03:44 05:45 WBC 9.2 RBC 4.19 L Hgb 12.5 L Hct 37.1 L MCV 89 MCH 29.8 MCHC 33.7 RDW 15.6 H Plt Count 183 Carbonic Acid 1.26 HCO3/H2CO3 Ratio 19:1 ABG pH 7.38 ABG pCO2 41.9 ABG pO2 106.1 H ABG HCO3 24.1 ABG O2 Saturation 97.8 ABG Base Excess -1.1 FiO2 35% Sodium 140.4 Potassium 4.0 Chloride 103 Carbon Dioxide 22 Anion Gap 15 BUN 52 H Creatinine 5.14 H Est GFR ( Amer) 14 L Est GFR (Non-Af Amer) 11 L Glucose 94 Calcium 8.0 L Phosphorus 7.9 H Magnesium 2.4 H 07/21/16 07/21/16 07/22/16 18:38 18:38 00:29 Creatine Kinase 72 55 Troponin I 0.186 NT-Pro-B Natriuret Pep 07/22/16 07/22/16 07/22/16 00:29 06:07 06:07 Creatine Kinase 53 L Troponin I 0.261 0.282 NT-Pro-B Natriuret Pep 96756 H Impressions: Chest/Abdomen CTA 07/21/16 13:00 IMPRESSION: NO PULMONARY EMBOLI. SMALL BILATERAL PLEURAL EFFUSIONS. SATISFACTORY PLACEMENT ENDOTRACHEAL TUBE AND NASOGASTRIC TUBE. OTHERWISE STABLE APPEARANCE OF THE CHEST. Renal Ultrasound 07/22/16 00:00 IMPRESSION: As above. Since 2011, kidneys have undergone atrophy and are quite echogenic. No mass. No obstruction. Soft Tissue Neck CT 07/23/16 00:00 IMPRESSION: Patient has an endotracheal tube in place, this obscures visualization of the hypopharynx, supraglottic laryngeal structures, and vocal cords. Obstructive lung disease Endotracheal tube in good positioning Chest X-Ray 07/23/16 06:00 IMPRESSION: Endotracheal and nasogastric tubes in good positioning. Minimal left basilar atelectasis Assessment & Plan - Diagnosis (1) Acute kidney injury superimposed on chronic kidney disease Is this a current diagnosis for this admission?: YesPlan: Secondary to multifactorial ATN due to contrast, hemodynamic changes due to hypertensive emergency, lowering of blood pressure and diuresis. Currently still making excellent urine output with negative fluid balance. I will discontinue the Lasix. Continue to monitor kidney function and urine output and electrolytes. Currently he is on potassium and his bicarbonate are within acceptable normal limits. If however his kidney function continued to gets worse and he starts to have electrolyte abnormalities he may need renal replacement therapy. At this time there is no indication for [employer] yet. We'll continue to follow very closely. (2) Contrast dye induced nephropathy Is this a current diagnosis for this admission?: YesPlan: This most likely has a significant effect on worsening of the patient's kidney function acutely. (3) Hypertensive emergency Is this a current diagnosis for this admission?: YesPlan: If the patient did use cocaine acutely this could be induced by cocaine use. This could also have resulted to acute flash pulmonary edema leading to acute congestive heart failure. As mentioned maintain systolic blood pressure between 140 to 150s in this patient. Continue current medication. (4) Acute on chronic combined systolic and diastolic congestive heart failure Is this a current diagnosis for this admission?: YesPlan: Now resolved. (5) Acute hypoxemic respiratory failure Is this a current diagnosis for this admission?: Yes (6) Cocaine abuse Is this a current diagnosis for this admission?: Yes (7) HIV (human immunodeficiency virus infection) Is this a current diagnosis for this admission?: Yes - Time Time with patient: 15-25 minutes
--- NOTE | 2016-07-23 17:47 | XCELERA REPORT ---
[address] [address] Transthoracic Echocardiogram Report Name: KRISTY CANTU Age: 61 yrs Gender: Male : 1955 Patient Status: Inpatient Patient Location: ICU\S\602\S\A Study Date: 07/23/2016 09:22 AM Height: 50 in Weight: 168 lb BSA: 1.5 m2 Procedure: A two-dimensional transthoracic echocardiogram with color flow and Doppler was performed. The study was technically difficult with many images being suboptimal in quality. Reason For Study: CHF History: CHF. Ordering Physician: ALBERT DOMINIQUE Performed By: Jesenia George Interpretation Summary The left ventricle is borderline dilated. There is normal left ventricular wall thickness. LV EF is 25% to30% Left ventricular systolic function is severely reduced. Doppler measurements suggest impaired left ventricular relaxation, which is associated with grade I/IV or mild diastolic dysfunction In a setting of severe diffuse hypokinesis there is akinesis of the inferior wall. There is no thrombus. The left atrial size is normal. There is no evidence of mitral valve prolapse. There is no mitral valve stenosis. There is no mitral regurgitation noted. There is no aortic valve stenosis There is no LVOT obstruction. No aortic regurgitation is present. There is no tricuspid stenosis. No tricuspid regurgitation. Unable to calculate RVSP due to insufficient TR jet. There is no pericardial effusion. MMode/2D Measurements \T\ Calculations RVDd: 2.3 cm LVIDd: 5.6 cm FS: 17.1 % Ao root diam: 3.6 cm IVSd: 1.0 cm LVIDs: 4.6 cm EDV(Teich): 151.4 ml LVPWd: 0.99 cm ESV(Teich): 97.8 ml Ao root area: 10.2 cm2 EF(Teich): 35.4 % LA dimension: 3.7 cm Doppler Measurements \T\ Calculations MV E max kalyn: MV P1/2t max kalyn: Ao V2 max: LV V1 max P.1 cm/sec 39.0 cm/sec 97.7 cm/sec 2.9 mmHg MV A max kalyn: MV P1/2t: 54.6 msec Ao max PG: LV V1 max: 78.8 cm/sec 3.8 mmHg 85.7 cm/sec MV E/A: 0.48 MVA(P1/2t): 4.0 cm2 MV dec slope: 209.1 cm/sec2 MV dec time: 0.18 sec PA V2 max: 85.7 cm/sec PA max P.9 mmHg Left Ventricle The left ventricle is borderline dilated. There is normal left ventricular wall thickness. LV EF is 25% to30%. Left ventricular systolic function is severely reduced. Doppler measurements suggest impaired left ventricular relaxation, which is associated with grade I/IV or mild diastolic dysfunction. In a setting of severe diffuse hypokinesis there is akinesis of the inferior wall. There is no thrombus. Right Ventricle The right ventricle is grossly normal size. The right ventricle is not well visualized secondary to technical limitations. Atria The right atrium is normal. The left atrial size is normal. Mitral Valve There is no evidence of mitral valve prolapse. There is no vegetation seen on the mitral valve. There is no mitral valve stenosis. There is no mitral regurgitation noted. Aortic Valve There is no aortic valvular vegetation. There is no aortic valve stenosis. There is no LVOT obstruction. No aortic regurgitation is present. Tricuspid Valve There is no tricuspid stenosis. No tricuspid regurgitation. Unable to calculate RVSP due to insufficient TR jet. Pulmonic Valve There is no pulmonic valvular stenosis. There is no pulmonic valvular regurgitation. Great Vessels The aortic root is normal size. Effusions There is no pericardial effusion. : ALBERT DOMINIQUE > Annita Coker
[2016-07-23] MEDS: CEFEPIME 1 GM/D5W RTU 1 GM/50 ML RTUPB IV SCH (21:02)
[2016-07-24] MEDS: DEXAMETHASONE SOD PHOSPHATE INJ 4 MG/1 ML VIAL IV SCH ×5 (00:11→23:52)
[2016-07-24] MEDS: NITROGLYCERIN 2% OINTMENT 1 GM PACKET TP SCH ×5 (02:07→23:52)
[2016-07-24] MEDS: PROPOFOL 100 ML IV PRN ×2 (03:11→07:02)
[2016-07-24 04:16] LABS: ABSOLUTE LYMPHOCYTES (AUTO) 0.8 10^3/uL (0.5-4.7); ABSOLUTE MONOCYTES (AUTO) 0.7 10^3/uL (0.1-1.4); ABSOLUTE NEUT (AUTO) 7.3 10^3/uL (1.7-8.2); BASOPHILS % (AUTO) 0.5 % (0-2); EOSINOPHILS % (AUTO) 0.1 % (0-6); HEMATOCRIT 39.9 % (37.9-51.0); HEMOGLOBIN 13.4 g/dL (13.5-17.0); HGB HCT DIFFERENCE 0.3; LYMPHOCYTES % (AUTO) 9.4 % (13-45); MEAN CORPUSCULAR HEMOGLOBIN 29.9 pg (27.0-33.4); MEAN CORPUSCULAR HGB CONC 33.5 g/dL (32.0-36.0); MEAN CORPUSCULAR VOLUME 89 fl (80-97); MONOCYTES % (AUTO) 7.6 % (3-13); RED BLOOD COUNT 4.47 10^6/uL (4.35-5.55); RED CELL DISTRIBUTION WIDTH 15.5 % (11.5-14.0); SEGMENTED NEUTROPHILS % (AUTO) 82.4 % (42-78); WHITE BLOOD COUNT 8.9 10^3/uL (4.0-10.5)
[2016-07-24 04:27] LABS: ANION GAP 18 (5-19); BLOOD UREA NITROGEN 59 mg/dL (7-20); CALCIUM 7.9 mg/dL (8.4-10.2); CARBON DIOXIDE 22 mmol/L (22-30); CHLORIDE 103 mmol/L (98-107); GLUCOSE 99 mg/dL (75-110); MAGNESIUM 2.7 mg/dL (1.6-2.3); SODIUM 143.4 mmol/L (137-145)
[2016-07-24] MEDS: HEPARIN SOD (PORCINE) 5,000 UNIT/ML 1 ML SYRINGE SUBCUT SCH ×3 (06:17→21:43)
[2016-07-24 06:37] LABS: ARTERIAL BLOOD BASE EXCESS -3.2 mmol/L; ARTERIAL BLOOD O2 SATURATION 95.7 % (94-98)
[2016-07-24] MEDS ORDERED: LEVALBUTEROL HCL NEB 1.25 MG/3 ML AMPUL NEB ONE (10:21)
[2016-07-24] MEDS ORDERED: LEVALBUTEROL HCL NEB 1.25 MG/3 ML AMPUL NEB PRN (10:50)
[2016-07-24 11:39] LABS: ABSOLUTE CD 4 HELPER 473 /uL (359-1519); CD BASOPHILS 0 % (.); CD EOSINOPHILS 0 % (.); CD LYMPHS 15 % (.); CD MONOCYTES 7 % (.); CD NEUTROPHILS 78 % (.); HEMATOCRIT . 38.4 % (37.5-51.0); HEMOGLOBIN 12.3 g/dL (12.6-17.7); IMMATURE GRANULOCYTES 0 % (.); LYMPHS(ABSOLUTE) 1.5 x10E3/uL (0.7-3.1); MCH 29.4 pg (26.6-33.0); MCV 92 fL (79-97); PLATELETS 236 x10E3/uL (150-379); RBC 4.19 x10E6/uL (4.14-5.80); RDW 15.6 % (12.3-15.4); WBC 10.3 x10E3/uL (3.4-10.8)
[2016-07-24] MEDS: AMLODIPINE BESYLATE 10 MG TABLET NG SCH (11:40)
[2016-07-24] MEDS: FAMOTIDINE INJ/PF 20 MG/2 ML SDV IV SCH ×2 (11:40→21:42)
--- NOTE | 2016-07-24 12:40 | PDOC PROGRESS REPORT ---
Subjective Progress Note for:: 07/24/16 Subjective:: Patient is intubated and sedated at the time of my exam Physical Exam Vital Signs: Temp Pulse Resp BP Pulse Ox 98.8 F 91 19 150/87 H 97 07/24/16 12:00 07/24/16 10:09 07/24/16 12:00 07/24/16 11:20 07/24/16 12:00 Intake & Output 07/23/16 07/24/16 07/25/16 06:59 06:59 06:59 Intake Total 727 826 Output Total 2790 2030 275 Balance -2063 -1204 -275 Weight 69.6 kg 67.2 kg General appearance: PRESENT: no acute distress Eye exam: PRESENT: conjunctiva pink Mouth exam: PRESENT: moist, tongue midline Neck exam: ABSENT: JVD Respiratory exam: PRESENT: decreased breath sounds Cardiovascular exam: PRESENT: RRR. ABSENT: diastolic murmur, rubs, systolic murmur GI/Abdominal exam: PRESENT: normal bowel sounds, soft. ABSENT: distended, guarding, mass, organolmegaly, rebound, tenderness Extremities exam: PRESENT: other - Has had bilateral amputations. ABSENT: calf tenderness, clubbing Neurological exam: PRESENT: other - Sedated and intubated. Psychiatric exam: PRESENT: other - Unable to assess Skin exam: PRESENT: dry, intact, warm. ABSENT: cyanosis, rash Results Laboratory Results: 07/24/16 03:38 07/24/16 03:38 07/23/16 07/24/16 07/24/16 03:44 03:38 03:38 WBC 8.9 RBC 4.47 Hgb 13.4 L Hct 39.9 MCV 89 MCH 29.9 MCHC 33.5 RDW 15.5 H Plt Count 196 Seg Neutrophils % 82.4 H Lymphocytes % 9.4 L Monocytes % 7.6 Eosinophils % 0.1 Basophils % 0.5 Absolute Neutrophils 7.3 Absolute Lymphocytes 0.8 Absolute Monocytes 0.7 Absolute Eosinophils 0.0 Absolute Basophils 0.0 Carbonic Acid HCO3/H2CO3 Ratio ABG pH ABG pCO2 ABG pO2 ABG HCO3 ABG O2 Saturation ABG Base Excess FiO2 Sodium 143.4 Potassium 4.0 Chloride 103 Carbon Dioxide 22 Anion Gap 18 BUN 59 H Creatinine 5.30 H Est GFR ( Amer) 13 L Est GFR (Non-Af Amer) 11 L Glucose 99 Calcium 7.9 L Magnesium 2.7 H PTH Intact 693 H 07/24/16 06:30 WBC RBC Hgb Hct MCV MCH MCHC RDW Plt Count Seg Neutrophils % Lymphocytes % Monocytes % Eosinophils % Basophils % Absolute Neutrophils Absolute Lymphocytes Absolute Monocytes Absolute Eosinophils Absolute Basophils Carbonic Acid 1.13 HCO3/H2CO3 Ratio 19:1 ABG pH 7.38 ABG pCO2 37.7 ABG pO2 80.7 ABG HCO3 21.6 ABG O2 Saturation 95.7 ABG Base Excess -3.2 FiO2 30% Sodium Potassium Chloride Carbon Dioxide Anion Gap BUN Creatinine Est GFR ( Amer) Est GFR (Non-Af Amer) Glucose Calcium Magnesium PTH Intact 07/21/16 20:13 Tracheal Aspirate Gram Stain - Final 07/21/16 20:13 Tracheal Aspirate Sputum Culture - Final Group F Beta Streptococcus Normal Sarah 07/21/16 07/21/16 07/22/16 18:38 18:38 00:29 Creatine Kinase 72 55 Troponin I 0.186 NT-Pro-B Natriuret Pep 07/22/16 07/22/16 07/22/16 00:29 06:07 06:07 Creatine Kinase 53 L Troponin I 0.261 0.282 NT-Pro-B Natriuret Pep 89239 H Impressions: Chest/Abdomen CTA 07/21/16 13:00 IMPRESSION: NO PULMONARY EMBOLI. SMALL BILATERAL PLEURAL EFFUSIONS. SATISFACTORY PLACEMENT ENDOTRACHEAL TUBE AND NASOGASTRIC TUBE. OTHERWISE STABLE APPEARANCE OF THE CHEST. Renal Ultrasound 07/22/16 00:00 IMPRESSION: As above. Since 2011, kidneys have undergone atrophy and are quite echogenic. No mass. No obstruction. Soft Tissue Neck CT 07/23/16 00:00 IMPRESSION: Patient has an endotracheal tube in place, this obscures visualization of the hypopharynx, supraglottic laryngeal structures, and vocal cords. Obstructive lung disease Endotracheal tube in good positioning Chest X-Ray 07/24/16 06:00 IMPRESSION: Stable chest with appropriate support lines and tubes. Assessment & Plan - Diagnosis (1) Acute hypoxemic respiratory failure Is this a current diagnosis for this admission?: YesPlan: Most likely this was secondary to hypertensive urgency with acute pulmonary edema. The patient's neck CT did not show any obvious mass. There was concern there possibly might be a mass when he was intubated. He hopefully can be extubated today. Will defer to pulmonary medicine has been consulted. (2) Acute kidney injury superimposed on chronic kidney disease Is this a current diagnosis for this admission?: YesPlan: Patient most likely has ATN from hypertensive urgency and cocaine use. He is still making urine and will try to match his I&O. Nephrology has been consulted and we appreciate their input. (3) Cocaine abuse Is this a current diagnosis for this admission?: YesPlan: This most likely led to his hypertensive emergency but is improving. (4) HIV (human immunodeficiency virus infection) Is this a current diagnosis for this admission?: YesPlan: We are awaiting a CD4 count. His overall white blood cell count however has been appropriate. (5) Hypertensive emergency Is this a current diagnosis for this admission?: YesPlan: Improving. Our goal is to keep his blood pressure around the 150. (6) History of pulmonary embolism Is this a current diagnosis for this admission?: YesPlan: Continue with subcutaneous heparin. (7) Hyperlipidemia Qualifiers: Hyperlipidemia type: unspecified Qualified Code(s): E78.5 - Hyperlipidemia, unspecified Is this a current diagnosis for this admission?: Yes - Time Time Spent with patient: 25-34 minutes - Inpatient Certification Medical Necessity: Need Close Monitoring Due to Risk of Patient Decompensation - Plan Summary Plan Summary: We'll hopefully extubate the patient today.
[2016-07-24] MEDS: LEVALBUTEROL HCL NEB 1.25 MG/3 ML AMPUL NEB SCH ×2 (13:38→20:31)
--- NOTE | 2016-07-24 15:29 | PDOC PROGRESS REPORT ---
Subjective Progress Note for:: 07/24/16 Subjective:: Patient got extubated earlier this afternoon and is currently doing fine except his seems to be still lethargic somewhat. He answers few questions. He said his PCPs the care team in [place]. He could not tell me if he has seen a textile designer before. He denies any chest pains nor shortness of breath and didn 't voice any other complaints when prompted. His blood pressure fluctuates a little bit but acceptable at this point. He continues to make good amount of urine output and has been negative fluid balance until this time. Physical Exam Vital Signs: Temp Pulse Resp BP Pulse Ox 99.0 F 96 21 H 168/92 H 100 07/24/16 14:20 07/24/16 13:40 07/24/16 14:20 07/24/16 14:20 07/24/16 14:20 Intake & Output 07/23/16 07/24/16 07/25/16 06:59 06:59 06:59 Intake Total 727 826 Output Total 2790 2030 375 Balance -2062375 Weight 69.6 kg 67.2 kg Exam: General appearance: PRESENT: no acute distress, cooperative, well-developed, well-nourished Head exam: PRESENT: atraumatic, normocephalic Eye exam: PRESENT: conjunctiva pink, PERRLA. ABSENT: scleral icterus Neck exam: ABSENT: JVD Respiratory exam: PRESENT: Diminished breath sounds. ABSENT: crackles, rales, rhonchi, unlabored, wheezes Cardiovascular exam: PRESENT: Regular rate rhythm -+S1, +S2. ABSENT: diastolic murmur, systolic murmur GI/Abdominal exam: PRESENT: normal bowel sounds, soft. ABSENT: guarding, mass, tenderness Extremities exam: ABSENT: No edema Neurological exam: PRESENT: Lethargic, oriented to person, place but not to time. Skin exam: PRESENT: dry, warm, Results Laboratory Results: 07/24/16 03:38 07/24/16 03:38 07/23/16 07/24/16 07/24/16 03:44 03:38 03:38 WBC 8.9 RBC 4.47 Hgb 13.4 L Hct 39.9 MCV 89 MCH 29.9 MCHC 33.5 RDW 15.5 H Plt Count 196 Seg Neutrophils % 82.4 H Lymphocytes % 9.4 L Monocytes % 7.6 Eosinophils % 0.1 Basophils % 0.5 Absolute Neutrophils 7.3 Absolute Lymphocytes 0.8 Absolute Monocytes 0.7 Absolute Eosinophils 0.0 Absolute Basophils 0.0 Carbonic Acid HCO3/H2CO3 Ratio ABG pH ABG pCO2 ABG pO2 ABG HCO3 ABG O2 Saturation ABG Base Excess FiO2 Sodium 143.4 Potassium 4.0 Chloride 103 Carbon Dioxide 22 Anion Gap 18 BUN 59 H Creatinine 5.30 H Est GFR ( Amer) 13 L Est GFR (Non-Af Amer) 11 L Glucose 99 Calcium 7.9 L Magnesium 2.7 H PTH Intact 693 H 07/24/16 06:30 WBC RBC Hgb Hct MCV MCH MCHC RDW Plt Count Seg Neutrophils % Lymphocytes % Monocytes % Eosinophils % Basophils % Absolute Neutrophils Absolute Lymphocytes Absolute Monocytes Absolute Eosinophils Absolute Basophils Carbonic Acid 1.13 HCO3/H2CO3 Ratio 19:1 ABG pH 7.38 ABG pCO2 37.7 ABG pO2 80.7 ABG HCO3 21.6 ABG O2 Saturation 95.7 ABG Base Excess -3.2 FiO2 30% Sodium Potassium Chloride Carbon Dioxide Anion Gap BUN Creatinine Est GFR ( Amer) Est GFR (Non-Af Amer) Glucose Calcium Magnesium PTH Intact 07/21/16 20:13 Tracheal Aspirate Gram Stain - Final 07/21/16 20:13 Tracheal Aspirate Sputum Culture - Final Group F Beta Streptococcus Normal Sarah 07/21/16 07/21/16 07/22/16 18:38 18:38 00:29 Creatine Kinase 72 55 Troponin I 0.186 NT-Pro-B Natriuret Pep 07/22/16 07/22/16 07/22/16 00:29 06:07 06:07 Creatine Kinase 53 L Troponin I 0.261 0.282 NT-Pro-B Natriuret Pep 54410 H Impressions: Chest/Abdomen CTA 07/21/16 13:00 IMPRESSION: NO PULMONARY EMBOLI. SMALL BILATERAL PLEURAL EFFUSIONS. SATISFACTORY PLACEMENT ENDOTRACHEAL TUBE AND NASOGASTRIC TUBE. OTHERWISE STABLE APPEARANCE OF THE CHEST. Renal Ultrasound 07/22/16 00:00 IMPRESSION: As above. Since 2011, kidneys have undergone atrophy and are quite echogenic. No mass. No obstruction. Soft Tissue Neck CT 07/23/16 00:00 IMPRESSION: Patient has an endotracheal tube in place, this obscures visualization of the hypopharynx, supraglottic laryngeal structures, and vocal cords. Obstructive lung disease Endotracheal tube in good positioning Chest X-Ray 07/24/16 06:00 IMPRESSION: Stable chest with appropriate support lines and tubes. Assessment & Plan - Diagnosis (1) Acute kidney injury superimposed on chronic kidney disease Is this a current diagnosis for this admission?: YesPlan: Secondary to multifactorial ATN due to contrast, hemodynamic changes due to hypertensive emergency, lowering of blood pressure and diuresis. Currently still making excellent urine output with negative fluid balance. I will discontinue the Lasix. Continue to monitor kidney function and urine output and electrolytes. Currently his potassium and his bicarbonate are within acceptable normal limits. If however his kidney function continued to gets worse and he starts to have electrolyte abnormalities he may need renal replacement therapy. At this time there is no indication for [employer] LO[employer] yet. We'll continue to follow very closely. I will start the patient on half-normal saline at 150 mL/ hour for 1 L. I ask him if he would undergo dialysis if needed and he said he would need to. (2) Contrast dye induced nephropathy Is this a current diagnosis for this admission?: YesPlan: This most likely has a significant effect on worsening of the patient's kidney function acutely. (3) Hypertensive emergency Is this a current diagnosis for this admission?: YesPlan: If the patient did use cocaine acutely this could be induced by cocaine use. This could also have resulted to acute flash pulmonary edema leading to acute congestive heart failure. As mentioned maintain systolic blood pressure between 140 to 150s in this patient. Continue current medication. (4) Acute hypoxemic respiratory failure Is this a current diagnosis for this admission?: YesPlan: Status post extubation today. (5) Cocaine abuse Is this a current diagnosis for this admission?: Yes (6) HIV (human immunodeficiency virus infection) Is this a current diagnosis for this admission?: Yes (7) Hyperphosphatemia Is this a current diagnosis for this admission?: YesPlan: Secondary to kidney disease. We will start phosphorus binders once he starts eating. (8) Secondary hyperparathyroidism (of renal origin) Is this a current diagnosis for this admission?: YesPlan: We'll start vitamin D analog once he starts taking medicines by mouth. (9) Hypermagnesemia Is this a current diagnosis for this admission?: YesPlan: Due to kidney disease. - Time Time with patient: 15-25 minutes
[2016-07-24] MEDS ORDERED: 1/2 NORMAL SALINE 1,000 ML IV ONE (15:30)
--- NOTE | 2016-07-24 15:52 | EKG REPORT ---
SEVERITY:- ABNORMAL ECG - SINUS RHYTHM LEFT ATRIAL ABNORMALITY LVH BORDERLINE PROLONGED QT INTERVAL : Confirmed by: Beulah Storm 24-Jul-2016 15:51:35
--- NOTE | 2016-07-24 16:47 | PDOC CONSULTATION ---
Consultation Consult Date: 07/22/16 Attending physician:: ALBERT DOMINIQUE Consult reason:: acute resp fail History of Present Illness Admission Date/PCP: 07/21/16 17:46 History of Present Illness: KRISTY CANTU is a 61 year old male with HIV and substance abuse with cocaine reportedly was doing well until early this morning an ambulance was called as the patient was complaining of shortness of breath. He was eventually getting better and the patient refused to go to the hospital as it is improving. No reported fever or chills temperature spikes or paroxysmal coughing. Patient apparently used cocaine. A few hours later the ambulance was called again as the patient is in respiratory distress. Upon arrival systolic blood pressure was 206/119. The patient was placed on nonrebreather mask and was transferred to the emergency room. In the emergency room the patient received 100 mg of Lasix as chest x-ray shows pulmonary vascular congestion. Intravenous steroid was likewise given as well as nebulizers. Magnesium were likewise given. O2 saturation in the 80s despite measures. Patient developing altered level of consciousness and eventually intubation was performed. Patient did diurese well. CT scan of the chest with IV contrast shows no pulmonary embolism. Patient is intubated and sedated. There is a history of cocaine use in this patient and a possible use prior to admission. No other information available at this time. Patient currently intubated and sedated Past Medical History Cardiac Medical History: Reports: DVT, Myocardial Infarction, Hyperlipidema, Hypertension, Peripheral Vascular Disease, Pulmonary Embolism Pulmonary Medical History: Reports: Bronchitis Denies: Asthma, Chronic Obstructive Pulmonary Disease (COPD), Pneumonia Neurological Medical History: Denies: Seizures Endocrine Medical History: Reports: Diabetes Mellitus Type 1, Diabetes Mellitus Type 2 GI Medical History: Reports: Gastroesophageal Reflux Disease Musculoskeltal Medical History: Denies: Arthritis Hematology: Denies: Anemia Infectious Medical History: Reports: HIV Past Surgical History Past Surgical History: Reports: Orthopedic Surgery - bilateral amputation, R BKA , L AKA, Vascular Surgery - stents right chest, left arm clot removed, IVC filter, Other - Endoscopy Social History Information Source: [facility] Records Smoking Status: Current Every Day Smoker Cigarettes Packs Per Day: 2 Passive smoke exposure as: Both Frequency of Alcohol Use: Social Hx Recreational Drug Use: Yes Drugs: Cocaine Hx Prescription Drug Abuse: No Family History Family History: CAD, CVA, DM, Hyperlipidemia, Hypertension, Malignancy Parental Family History Reviewed: No Children Family History Reviewed: No Sibling(s) Family History Reviewed.: No Medication/Allergy Home Medications: Amlodipine Besylate 10 mg PO DAILY 09/06/15 Emtricitabine/Tenofovir [Truvada 200 mg-300 mg Tablet] 1 each PO Q2D 09/06/15 Lisinopril [Zestril] 2.5 mg PO Q12H 09/06/15 Lopinavir/Ritonavir [Kaletra 200-50 mg Tablet] 2 each PO BID 09/06/15 Pravastatin Sodium 40 mg PO DAILY 09/06/15 Pantoprazole Sodium [Protonix] 40 mg PO DAILY 07/22/16 Allergies/Adverse Reactions: No Known Allergies Allergy (Verified 02/27/16 15:21) Review of Systems ROS unobtainable: Due to endotracheal tube Physical Exam Vital Signs: Temp Pulse Resp BP Pulse Ox 99.9 F 100 13 151/92 H 99 07/22/16 10:25 07/22/16 10:00 07/22/16 10:25 07/22/16 10:25 07/22/16 10:25 Intake & Output 07/21/16 07/22/16 07/23/16 06:59 06:59 06:59 Intake Total 614 Output Total 1850 200 Balance -1236 -200 Weight 70.5 kg 70.5 kg General appearance: PRESENT: no acute distress, disheveled, well-developed, well -nourished Head exam: PRESENT: atraumatic, normocephalic Eye exam: PRESENT: conjunctiva pale Mouth exam: PRESENT: dry mucosa, neck supple, tongue midline, other - ET tube in place Neck exam: ABSENT: carotid bruit, JVD, lymphadenopathy, thyromegaly Respiratory exam: PRESENT: decreased breath sounds, prolonged expiratory phas, rhonchi, symmetrical, unlabored, wheezes Cardiovascular exam: PRESENT: rubs, +S1 GI/Abdominal exam: PRESENT: normal bowel sounds, soft. ABSENT: distended, guarding, mass, organolmegaly, rebound, tenderness Rectal exam: PRESENT: deferred Gentrourinary exam: PRESENT: indwelling catheter Musculoskeletal exam: PRESENT: other - Status post bilateral BKA's Skin exam: PRESENT: dry Results Laboratory Results: 07/22/16 06:07 07/22/16 06:07 07/21/16 07/21/16 07/22/16 18:19 18:38 05:24 WBC RBC Hgb Hct MCV MCH MCHC RDW Plt Count Seg Neutrophils % Lymphocytes % Monocytes % Eosinophils % Basophils % Absolute Neutrophils Absolute Lymphocytes Absolute Monocytes Absolute Eosinophils Absolute Basophils Carbonic Acid 1.27 1.24 HCO3/H2CO3 Ratio 16:1 18:1 ABG pH 7.31 L 7.37 ABG pCO2 42.1 41.3 ABG pO2 84.3 73.1 L ABG HCO3 20.8 23.2 ABG O2 Saturation 95.5 94.3 ABG Base Excess -5.2 -2.0 FiO2 40% 30% Sodium Potassium Chloride Carbon Dioxide Anion Gap BUN Creatinine Est GFR ( Amer) Est GFR (Non-Af Amer) Glucose Calcium Magnesium Total Bilirubin AST ALT Alkaline Phosphatase Total Protein Albumin TSH 0.41 L Free T4 1.25 07/22/16 07/22/16 06:07 06:07 WBC 10.9 H RBC 4.16 L Hgb 12.5 L Hct 37.2 L MCV 90 MCH 30.2 MCHC 33.7 RDW 15.2 H Plt Count 215 Seg Neutrophils % 76.4 Lymphocytes % 12.6 L Monocytes % 10.4 Eosinophils % 0.1 Basophils % 0.5 Absolute Neutrophils 8.3 H Absolute Lymphocytes 1.4 Absolute Monocytes 1.1 Absolute Eosinophils 0.0 Absolute Basophils 0.1 Carbonic Acid HCO3/H2CO3 Ratio ABG pH ABG pCO2 ABG pO2 ABG HCO3 ABG O2 Saturation ABG Base Excess FiO2 Sodium 141.0 Potassium 4.4 Chloride 106 Carbon Dioxide 22 Anion Gap 13 BUN 40 H Creatinine 4.22 H Est GFR ( Amer) 17 L Est GFR (Non-Af Amer) 14 L Glucose 90 Calcium 8.4 Magnesium 2.5 H Total Bilirubin 0.3 AST 46 ALT 86 H Alkaline Phosphatase 109 Total Protein 5.9 L Albumin 3.5 TSH Free T4 07/21/16 07/21/16 07/22/16 18:38 18:38 00:29 Creatine Kinase 72 55 Troponin I 0.186 NT-Pro-B Natriuret Pep 07/22/16 07/22/16 07/22/16 00:29 06:07 06:07 Creatine Kinase 53 L Troponin I 0.261 0.282 NT-Pro-B Natriuret Pep [id number] H Impressions: Chest/Abdomen CTA 07/21/16 13:00 IMPRESSION: NO PULMONARY EMBOLI. SMALL BILATERAL PLEURAL EFFUSIONS. SATISFACTORY PLACEMENT ENDOTRACHEAL TUBE AND NASOGASTRIC TUBE. OTHERWISE STABLE APPEARANCE OF THE CHEST. Chest X-Ray 07/22/16 06:00 IMPRESSION: Stable cardiomegaly with mild pulmonary vascular congestion. No focal opacities. Support tubes and lines are unchanged. SUPPORT DEVICE(S) IN EXPECTED LOCATIONS. Assessment & Plan - Diagnosis (1) Acute hypoxemic respiratory failure Is this a current diagnosis for this admission?: YesPlan: Suspect this is induced by acute congestive heart failure secondary to drug overdose (2) Cocaine abuse Is this a current diagnosis for this admission?: YesPlan: Chronic drug abuser (3) HIV (human immunodeficiency virus infection) Is this a current diagnosis for this admission?: YesPlan: Allegedly compliant with [facility]NE[facility] regimen (4) SIRS (systemic inflammatory response syndrome) Is this a current diagnosis for this admission?: Yes - Time Critical Time spent with patient: 35 or more minutes - 50 minute
--- NOTE | 2016-07-24 16:50 | PDOC PROGRESS REPORT ---
Subjective Progress Note for:: 07/23/16 Subjective:: Intubated and sedated Physical Exam Vital Signs: Temp Pulse Resp BP Pulse Ox 98.8 F 93 18 151/97 H 96 07/23/16 12:00 07/23/16 14:00 07/23/16 14:00 07/23/16 14:00 07/23/16 14:00 Intake & Output 07/22/16 07/23/16 07/24/16 06:59 06:59 06:59 Intake Total 614 727 Output Total 1859 2790 850 Balance -1236 -2063 -850 Weight 70.5 kg 69.6 kg General appearance: PRESENT: no acute distress, disheveled, well-developed, well -nourished Head exam: PRESENT: atraumatic, normocephalic Eye exam: PRESENT: conjunctiva pale Mouth exam: PRESENT: moist, neck supple, tongue midline, other Neck exam: ABSENT: carotid bruit, JVD, lymphadenopathy, thyromegaly Respiratory exam: PRESENT: prolonged expiratory phas, rhonchi, symmetrical, unlabored Cardiovascular exam: PRESENT: RRR, +S1, +S2 Pulses: PRESENT: normal radial pulses GI/Abdominal exam: PRESENT: normal bowel sounds, soft. ABSENT: distended, guarding, mass, organolmegaly, rebound, tenderness Rectal exam: PRESENT: deferred Gentrourinary exam: PRESENT: indwelling catheter Extremities exam: PRESENT: other - Status post bilateral BKA Skin exam: PRESENT: dry Results Laboratory Results: 07/23/16 03:44 07/23/16 03:44 07/23/16 07/23/16 07/23/16 03:44 03:44 05:45 WBC 9.2 RBC 4.19 L Hgb 12.5 L Hct 37.1 L MCV 89 MCH 29.8 MCHC 33.7 RDW 15.6 H Plt Count 183 Carbonic Acid 1.26 HCO3/H2CO3 Ratio 19:1 ABG pH 7.38 ABG pCO2 41.9 ABG pO2 106.1 H ABG HCO3 24.1 ABG O2 Saturation 97.8 ABG Base Excess -1.1 FiO2 35% Sodium 140.4 Potassium 4.0 Chloride 103 Carbon Dioxide 22 Anion Gap 15 BUN 52 H Creatinine 5.14 H Est GFR ( Amer) 14 L Est GFR (Non-Af Amer) 11 L Glucose 94 Calcium 8.0 L Phosphorus 7.9 H Magnesium 2.4 H 07/21/16 07/21/16 07/22/16 18:38 18:38 00:29 Creatine Kinase 72 55 Troponin I 0.186 NT-Pro-B Natriuret Pep 07/22/16 07/22/16 07/22/16 00:29 06:07 06:07 Creatine Kinase 53 L Troponin I 0.261 0.282 NT-Pro-B Natriuret Pep 15908 H Impressions: Chest/Abdomen CTA 07/21/16 13:00 IMPRESSION: NO PULMONARY EMBOLI. SMALL BILATERAL PLEURAL EFFUSIONS. SATISFACTORY PLACEMENT ENDOTRACHEAL TUBE AND NASOGASTRIC TUBE. OTHERWISE STABLE APPEARANCE OF THE CHEST. Renal Ultrasound 07/22/16 00:00 IMPRESSION: As above. Since 2011, kidneys have undergone atrophy and are quite echogenic. No mass. No obstruction. Soft Tissue Neck CT 07/23/16 00:00 IMPRESSION: Patient has an endotracheal tube in place, this obscures visualization of the hypopharynx, supraglottic laryngeal structures, and vocal cords. Obstructive lung disease Endotracheal tube in good positioning Chest X-Ray 07/23/16 06:00 IMPRESSION: Endotracheal and nasogastric tubes in good positioning. Minimal left basilar atelectasis Assessment & Plan - Diagnosis (1) Acute hypoxemic respiratory failure Is this a current diagnosis for this admission?: YesPlan: Upon reviewing ER records it appears that there was a "fleshy partially obstructive mass in the airway CT scan soft tissue of the neck (2) Chronic kidney disease, stage IV (severe) Is this a current diagnosis for this admission?: YesPlan: Unchanged (3) HIV (human immunodeficiency virus infection) Is this a current diagnosis for this admission?: YesPlan: Unchanged - Time Critical Time spent with patient: 35 or more minutes - 45 minutes
--- NOTE | 2016-07-24 16:52 | PDOC PROGRESS REPORT ---
Subjective Progress Note for:: 07/24/16 Subjective:: Intubated and sedated Physical Exam Vital Signs: Temp Pulse Resp BP Pulse Ox 98.2 F 88 16 135/86 H 96 07/24/16 08:20 07/24/16 08:27 07/24/16 08:20 07/24/16 08:20 07/24/16 08:20 Intake & Output 07/23/16 07/24/16 07/25/16 06:59 06:59 06:59 Intake Total 727 826 Output Total 8950 2030 60 Balance -2063 -1204 -60 Weight 69.6 kg 67.2 kg General appearance: PRESENT: no acute distress, disheveled, well-developed, well -nourished Head exam: PRESENT: atraumatic, normocephalic Eye exam: PRESENT: conjunctiva pale Mouth exam: PRESENT: moist, neck supple, tongue midline, other - ET tube in place Neck exam: ABSENT: carotid bruit, JVD, lymphadenopathy, thyromegaly Respiratory exam: PRESENT: decreased breath sounds, prolonged expiratory phas, rhonchi, symmetrical, unlabored Cardiovascular exam: PRESENT: RRR, +S1, +S2 Pulses: PRESENT: normal radial pulses GI/Abdominal exam: PRESENT: normal bowel sounds, soft. ABSENT: distended, guarding, mass, organolmegaly, rebound, tenderness Rectal exam: PRESENT: deferred Gentrourinary exam: PRESENT: indwelling catheter Extremities exam: PRESENT: other - Status post bilateral BKA Skin exam: PRESENT: dry, warm Results Laboratory Results: 07/24/16 03:38 07/24/16 03:38 07/23/16 07/24/16 07/24/16 03:44 03:38 03:38 WBC 8.9 RBC 4.47 Hgb 13.4 L Hct 39.9 MCV 89 MCH 29.9 MCHC 33.5 RDW 15.5 H Plt Count 196 Seg Neutrophils % 82.4 H Lymphocytes % 9.4 L Monocytes % 7.6 Eosinophils % 0.1 Basophils % 0.5 Absolute Neutrophils 7.3 Absolute Lymphocytes 0.8 Absolute Monocytes 0.7 Absolute Eosinophils 0.0 Absolute Basophils 0.0 Carbonic Acid HCO3/H2CO3 Ratio ABG pH ABG pCO2 ABG pO2 ABG HCO3 ABG O2 Saturation ABG Base Excess FiO2 Sodium 143.4 Potassium 4.0 Chloride 103 Carbon Dioxide 22 Anion Gap 18 BUN 59 H Creatinine 5.30 H Est GFR ( Amer) 13 L Est GFR (Non-Af Amer) 11 L Glucose 99 Calcium 7.9 L Magnesium 2.7 H PTH Intact 693 H 07/24/16 06:30 WBC RBC Hgb Hct MCV MCH MCHC RDW Plt Count Seg Neutrophils % Lymphocytes % Monocytes % Eosinophils % Basophils % Absolute Neutrophils Absolute Lymphocytes Absolute Monocytes Absolute Eosinophils Absolute Basophils Carbonic Acid 1.13 HCO3/H2CO3 Ratio 19:1 ABG pH 7.38 ABG pCO2 37.7 ABG pO2 80.7 ABG HCO3 21.6 ABG O2 Saturation 95.7 ABG Base Excess -3.2 FiO2 30% Sodium Potassium Chloride Carbon Dioxide Anion Gap BUN Creatinine Est GFR ( Amer) Est GFR (Non-Af Amer) Glucose Calcium Magnesium PTH Intact 07/21/16 20:13 Tracheal Aspirate Gram Stain - Final 07/21/16 20:13 Tracheal Aspirate Sputum Culture - Final Group F Beta Streptococcus Normal Sarah 07/21/16 07/21/16 07/22/16 18:38 18:38 00:29 Creatine Kinase 72 55 Troponin I 0.186 NT-Pro-B Natriuret Pep 07/22/16 07/22/16 07/22/16 00:29 06:07 06:07 Creatine Kinase 53 L Troponin I 0.261 0.282 NT-Pro-B Natriuret Pep 87411 H Impressions: Chest/Abdomen CTA 07/21/16 13:00 IMPRESSION: NO PULMONARY EMBOLI. SMALL BILATERAL PLEURAL EFFUSIONS. SATISFACTORY PLACEMENT ENDOTRACHEAL TUBE AND NASOGASTRIC TUBE. OTHERWISE STABLE APPEARANCE OF THE CHEST. Renal Ultrasound 07/22/16 00:00 IMPRESSION: As above. Since 2011, kidneys have undergone atrophy and are quite echogenic. No mass. No obstruction. Soft Tissue Neck CT 07/23/16 00:00 IMPRESSION: Patient has an endotracheal tube in place, this obscures visualization of the hypopharynx, supraglottic laryngeal structures, and vocal cords. Obstructive lung disease Endotracheal tube in good positioning Chest X-Ray 07/24/16 06:00 IMPRESSION: Stable chest with appropriate support lines and tubes. Assessment & Plan - Diagnosis (1) Acute hypoxemic respiratory failure Is this a current diagnosis for this admission?: YesPlan: Minute volume, FiO2, airway pressures, respiratory rate all suggest successful extubation patient had been placed on Decadron for the last 18 hours will proceed with extubation (2) Chronic kidney disease, stage IV (severe) Is this a current diagnosis for this admission?: YesPlan: Unchanged (3) HIV (human immunodeficiency virus infection) Is this a current diagnosis for this admission?: YesPlan: Unchanged - Time Critical Time spent with patient: 35 or more minutes - 55 minutes
[2016-07-24] MEDS: CEFEPIME 1 GM/D5W RTU 1 GM/50 ML RTUPB IV SCH (21:42)
[2016-07-25] MEDS: LEVALBUTEROL HCL NEB 1.25 MG/3 ML AMPUL NEB SCH ×4 (02:12→20:27)
[2016-07-25 04:40] LABS: ABSOLUTE BASOPHILS # (AUTO) 0.1 10^3/uL (0.0-0.2); ABSOLUTE LYMPHOCYTES (AUTO) 0.7 10^3/uL (0.5-4.7); ABSOLUTE MONOCYTES (AUTO) 0.5 10^3/uL (0.1-1.4); BASOPHILS % (AUTO) 0.6 % (0-2); EOSINOPHILS % (AUTO) 0.1 % (0-6); HEMOGLOBIN 13.1 g/dL (13.5-17.0); HGB HCT DIFFERENCE 1.3; LYMPHOCYTES % (AUTO) 7.4 % (13-45); MEAN CORPUSCULAR HEMOGLOBIN 30.3 pg (27.0-33.4); MEAN CORPUSCULAR HGB CONC 34.3 g/dL (32.0-36.0); MEAN CORPUSCULAR VOLUME 88 fl (80-97); MONOCYTES % (AUTO) 5.8 % (3-13); RED BLOOD COUNT 4.31 10^6/uL (4.35-5.55); RED CELL DISTRIBUTION WIDTH 15.1 % (11.5-14.0); SEGMENTED NEUTROPHILS % (AUTO) 86.1 % (42-78); WHITE BLOOD COUNT 9.3 10^3/uL (4.0-10.5)
[2016-07-25 05:01] LABS: BLOOD UREA NITROGEN 67 mg/dL (7-20); CALCIUM 8.7 mg/dL (8.4-10.2); GLUCOSE 100 mg/dL (75-110); POTASSIUM 3.4 mmol/L (3.6-5.0)
[2016-07-25] MEDS: HEPARIN SOD (PORCINE) 5,000 UNIT/ML 1 ML SYRINGE SUBCUT SCH ×3 (05:43→21:56)
[2016-07-25] MEDS: NITROGLYCERIN 2% OINTMENT 1 GM PACKET TP SCH ×3 (05:43→17:47)
[2016-07-25] MEDS: DEXAMETHASONE SOD PHOSPHATE INJ 4 MG/1 ML VIAL IV SCH ×3 (05:43→17:47)
[2016-07-25 05:53] LABS: ARTERIAL BLOOD BASE EXCESS -3.3 mmol/L; ARTERIAL BLOOD O2 SATURATION 93.8 % (94-98)
[2016-07-25 05:55] LABS: ALANINE AMINOTRANSFERASE 64 U/L (21-72); ALBUMIN 3.3 g/dL (3.5-5.0); ALKALINE PHOSPHATASE 96 U/L (38-126); ANION GAP 17 (5-19); ASPARTATE AMINO TRANSFERASE 36 U/L (17-59); BILIRUBIN,TOTAL 0.4 mg/dL (0.2-1.3); CARBON DIOXIDE 23 mmol/L (22-30); CHLORIDE 105 mmol/L (98-107); CREATININE RESULT 5.04 mg/dL (0.52-1.25); MAGNESIUM 2.9 mg/dL (1.6-2.3); SODIUM 144.9 mmol/L (137-145); TOTAL PROTEIN 6.1 g/dL (6.3-8.2)
[2016-07-25] MEDS: AMLODIPINE BESYLATE 10 MG TABLET NG SCH (09:08)
[2016-07-25] MEDS: FAMOTIDINE INJ/PF 20 MG/2 ML SDV IV SCH ×2 (09:08→21:56)
--- NOTE | 2016-07-25 11:13 | PDOC PROGRESS REPORT ---
Subjective Progress Note for:: 07/25/16 Subjective:: Patient denies any complains. He was extubated without difficulty. Physical Exam Vital Signs: Temp Pulse Resp BP Pulse Ox 97.0 F 62 12 140/84 H 100 07/25/16 08:00 07/25/16 08:32 07/25/16 08:32 07/25/16 08:00 07/25/16 08:32 Intake & Output 07/24/16 07/25/16 07/26/16 06:59 06:59 06:59 Intake Total 826 1075 300 Output Total 2030 1720 200 Balance -1204 -645 100 Weight 67.2 kg 65.3 kg General appearance: PRESENT: no acute distress Eye exam: PRESENT: conjunctiva pink Mouth exam: PRESENT: moist, tongue midline Neck exam: ABSENT: JVD Respiratory exam: PRESENT: clear to auscultation ramila. ABSENT: rales, rhonchi, wheezes Cardiovascular exam: PRESENT: RRR. ABSENT: diastolic murmur, rubs, systolic murmur GI/Abdominal exam: PRESENT: normal bowel sounds, soft. ABSENT: distended, guarding, mass, organolmegaly, rebound, tenderness Extremities exam: PRESENT: other - Bilateral amputee. Neurological exam: PRESENT: alert, awake, oriented to person, oriented to place , oriented to time, oriented to situation Psychiatric exam: PRESENT: appropriate affect Skin exam: PRESENT: dry, intact, warm. ABSENT: cyanosis, rash Results Laboratory Results: 07/25/16 04:10 07/25/16 04:10 07/25/16 07/25/16 07/25/16 04:10 04:10 05:40 WBC 9.3 RBC 4.31 L Hgb 13.1 L Hct 38.0 MCV 88 MCH 30.3 MCHC 34.3 RDW 15.1 H Plt Count 212 Seg Neutrophils % 86.1 H Lymphocytes % 7.4 L Monocytes % 5.8 Eosinophils % 0.1 Basophils % 0.6 Absolute Neutrophils 8.0 Absolute Lymphocytes 0.7 Absolute Monocytes 0.5 Absolute Eosinophils 0.0 Absolute Basophils 0.1 Carbonic Acid 1.09 HCO3/H2CO3 Ratio 19:1 ABG pH 7.38 ABG pCO2 36.3 ABG pO2 69.4 L ABG HCO3 21.1 ABG O2 Saturation 93.8 L ABG Base Excess -3.3 FiO2 ROOM AIR Sodium 144.9 Potassium 3.4 L Chloride 105 Carbon Dioxide 23 Anion Gap 17 BUN 67 H Creatinine 5.04 H Est GFR ( Amer) 14 L Est GFR (Non-Af Amer) 12 L Glucose 100 Calcium 8.7 Magnesium 2.9 H Total Bilirubin 0.4 AST 36 ALT 64 Alkaline Phosphatase 96 Total Protein 6.1 L Albumin 3.3 L 07/21/16 20:13 Tracheal Aspirate Gram Stain - Final 07/21/16 20:13 Tracheal Aspirate Sputum Culture - Final Group F Beta Streptococcus Normal Sarah 07/21/16 07/21/16 07/22/16 18:38 18:38 00:29 Creatine Kinase 72 55 Troponin I 0.186 NT-Pro-B Natriuret Pep 07/22/16 07/22/16 07/22/16 00:29 06:07 06:07 Creatine Kinase 53 L Troponin I 0.261 0.282 NT-Pro-B Natriuret Pep 51189 H Impressions: Chest/Abdomen CTA 07/21/16 13:00 IMPRESSION: NO PULMONARY EMBOLI. SMALL BILATERAL PLEURAL EFFUSIONS. SATISFACTORY PLACEMENT ENDOTRACHEAL TUBE AND NASOGASTRIC TUBE. OTHERWISE STABLE APPEARANCE OF THE CHEST. Renal Ultrasound 07/22/16 00:00 IMPRESSION: As above. Since 2011, kidneys have undergone atrophy and are quite echogenic. No mass. No obstruction. Soft Tissue Neck CT 07/23/16 00:00 IMPRESSION: Patient has an endotracheal tube in place, this obscures visualization of the hypopharynx, supraglottic laryngeal structures, and vocal cords. Obstructive lung disease Endotracheal tube in good positioning Chest X-Ray 07/25/16 06:00 IMPRESSION: Stable chest status post extubation. Assessment & Plan - Diagnosis (1) Acute hypoxemic respiratory failure Is this a current diagnosis for this admission?: YesPlan: Most likely this was secondary to hypertensive urgency with acute pulmonary edema. The patient's neck CT did not show any obvious mass. There was concern there possibly might be a mass when he was intubated. The patient has done well after being extubated. We'll try to quickly wean down his steroids. (2) Acute kidney injury superimposed on chronic kidney disease Is this a current diagnosis for this admission?: YesPlan: Patient most likely has ATN from hypertensive urgency and cocaine use. His creatinine appears to have stabilized. He is still making urine and will try to match his I&O. Nephrology has been consulted and we appreciate their input. (3) Cocaine abuse Is this a current diagnosis for this admission?: YesPlan: This most likely led to his hypertensive emergency but is improving. (4) HIV (human immunodeficiency virus infection) Is this a current diagnosis for this admission?: YesPlan: His CD4 count is 473. His overall white blood cell count however has been appropriate. (5) Hypertensive emergency Is this a current diagnosis for this admission?: YesPlan: Improving. Our goal is to keep his blood pressure around the 150. (6) History of pulmonary embolism Is this a current diagnosis for this admission?: YesPlan: Continue with subcutaneous heparin. (7) Hyperlipidemia Qualifiers: Hyperlipidemia type: unspecified Qualified Code(s): E78.5 - Hyperlipidemia, unspecified Is this a current diagnosis for this admission?: Yes - Time Time Spent with patient: 25-34 minutes - Inpatient Certification Medical Necessity: Need Close Monitoring Due to Risk of Patient Decompensation, Need For IV Fluids - Plan Summary Plan Summary: Patient will be transferred out of the intensive care unit to a floor bed.
[2016-07-25] MEDS ORDERED: POTASSIUM CHLORIDE 10 MEQ TABLET.SA PO ONE (13:00)
[2016-07-25] MEDS: POTASSI CL 20 MEQ/1/2NS 1L 20 MEQ/1,000 ML RTUINJ IV SCH (13:54)
[2016-07-25] MEDS ORDERED: EMTRICITABINE/TENOFOVIR 200-300 MG TABLET PO ONE (16:00)
--- NOTE | 2016-07-25 19:07 | PDOC PROGRESS REPORT ---
Subjective Progress Note for:: 07/25/16 Subjective:: Patient is doing good today. He was downgraded now to IMCU. He is still making good amount of urine output. Blood pressure so for acceptable. He complains of some headache. Otherwise he denies any chest pains nor shortness of breath nor any other complaints. He is now eating better. I asked the patient regarding any knowledge of any kidney disease in the past and patient told me that he was told he has normal kidney function. He doesn't seem to be aware of any abnormal kidney disease in the past. Physical Exam Vital Signs: Temp Pulse Resp BP Pulse Ox 97.8 F 84 19 158/82 H 97 07/25/16 15:25 07/25/16 15:25 07/25/16 15:25 07/25/16 15:25 07/25/16 15:25 Intake & Output 07/24/16 07/25/16 07/26/16 06:59 06:59 06:59 Intake Total 826 1075 2302 Output Total 2030 1720 200 Balance -1204 -645 2102 Weight 67.2 kg 65.3 kg Exam: General appearance: PRESENT: no acute distress, cooperative, well-developed, well-nourished Head exam: PRESENT: atraumatic, normocephalic Eye exam: PRESENT: conjunctiva pink, PERRLA. ABSENT: scleral icterus Neck exam: ABSENT: JVD Respiratory exam: PRESENT: Diminished breath sounds. ABSENT: crackles, rales, rhonchi, unlabored, wheezes Cardiovascular exam: PRESENT: Regular rate rhythm -+S1, +S2. ABSENT: diastolic murmur, systolic murmur GI/Abdominal exam: PRESENT: normal bowel sounds, soft. ABSENT: guarding, mass, tenderness Extremities exam: ABSENT: No edema on the lateral stumps Neurological exam: PRESENT: alert, awake, oriented to person, place and time. Skin exam: PRESENT: dry, warm, Results Laboratory Results: 07/25/16 04:10 07/25/16 04:10 07/25/16 07/25/16 07/25/16 04:10 04:10 05:40 WBC 9.3 RBC 4.31 L Hgb 13.1 L Hct 38.0 MCV 88 MCH 30.3 MCHC 34.3 RDW 15.1 H Plt Count 212 Seg Neutrophils % 86.1 H Lymphocytes % 7.4 L Monocytes % 5.8 Eosinophils % 0.1 Basophils % 0.6 Absolute Neutrophils 8.0 Absolute Lymphocytes 0.7 Absolute Monocytes 0.5 Absolute Eosinophils 0.0 Absolute Basophils 0.1 Carbonic Acid 1.09 HCO3/H2CO3 Ratio 19:1 ABG pH 7.38 ABG pCO2 36.3 ABG pO2 69.4 L ABG HCO3 21.1 ABG O2 Saturation 93.8 L ABG Base Excess -3.3 FiO2 ROOM AIR Sodium 144.9 Potassium 3.4 L Chloride 105 Carbon Dioxide 23 Anion Gap 17 BUN 67 H Creatinine 5.04 H Est GFR ( Amer) 14 L Est GFR (Non-Af Amer) 12 L Glucose 100 Calcium 8.7 Magnesium 2.9 H Total Bilirubin 0.4 AST 36 ALT 64 Alkaline Phosphatase 96 Total Protein 6.1 L Albumin 3.3 L 07/21/16 20:13 Tracheal Aspirate Gram Stain - Final 07/21/16 20:13 Tracheal Aspirate Sputum Culture - Final Group F Beta Streptococcus Normal Sarah 07/21/16 07/21/16 07/22/16 18:38 18:38 00:29 Creatine Kinase 72 55 Troponin I 0.186 NT-Pro-B Natriuret Pep 07/22/16 07/22/16 07/22/16 00:29 06:07 06:07 Creatine Kinase 53 L Troponin I 0.261 0.282 NT-Pro-B Natriuret Pep 47622 H Impressions: Chest/Abdomen CTA 07/21/16 13:00 IMPRESSION: NO PULMONARY EMBOLI. SMALL BILATERAL PLEURAL EFFUSIONS. SATISFACTORY PLACEMENT ENDOTRACHEAL TUBE AND NASOGASTRIC TUBE. OTHERWISE STABLE APPEARANCE OF THE CHEST. Renal Ultrasound 07/22/16 00:00 IMPRESSION: As above. Since 2011, kidneys have undergone atrophy and are quite echogenic. No mass. No obstruction. Soft Tissue Neck CT 07/23/16 00:00 IMPRESSION: Patient has an endotracheal tube in place, this obscures visualization of the hypopharynx, supraglottic laryngeal structures, and vocal cords. Obstructive lung disease Endotracheal tube in good positioning Chest X-Ray 07/25/16 06:00 IMPRESSION: Stable chest status post extubation. Assessment & Plan - Diagnosis (1) Acute kidney injury superimposed on chronic kidney disease Is this a current diagnosis for this admission?: YesPlan: Secondary to multifactorial ATN due to contrast, hemodynamic changes due to hypertensive emergency, lowering of blood pressure and diuresis. Currently still making excellent urine output with negative fluid balance. I discontinued the Lasix. Continue to monitor kidney function and urine output and electrolytes. Currently his potassium and his bicarbonate are within acceptable normal limits. If however his kidney function continued to gets worse and he starts to have electrolyte abnormalities he may need renal replacement therapy. At this time there is no indication for HEEL COVERER yet. We'll continue to follow very closely. I ask him if he would undergo dialysis if needed and he said he would need to. I started the patient on half-normal saline with 20 mEq of potassium at 100 mL an hour for 2 L today. Hoping that hydrating him a little bit though help improve his kidney function. We'll continue to follow. (2) Contrast dye induced nephropathy Is this a current diagnosis for this admission?: YesPlan: This most likely has a significant effect on worsening of the patient's kidney function acutely. (3) Hypertensive emergency Is this a current diagnosis for this admission?: YesPlan: If the patient did use cocaine acutely this could be induced by cocaine use. This could also have resulted to acute flash pulmonary edema leading to acute congestive heart failure. As mentioned maintain systolic blood pressure between 140 to 150s in this patient. Continue current medication. (4) Acute hypoxemic respiratory failure Is this a current diagnosis for this admission?: YesPlan: Status post extubation . (5) Cocaine abuse Is this a current diagnosis for this admission?: Yes (6) HIV (human immunodeficiency virus infection) Is this a current diagnosis for this admission?: Yes (7) Hyperphosphatemia Is this a current diagnosis for this admission?: YesPlan: Secondary to kidney disease. We will start phosphorus binders, PhosLo 3 times a day with meals. We will recheck phosphorus level tomorrow. (8) Secondary hyperparathyroidism (of renal origin) Is this a current diagnosis for this admission?: YesPlan: Start calcitriol 0.25 g by mouth daily. (9) Hypermagnesemia Is this a current diagnosis for this admission?: YesPlan: Due to kidney disease. - Time Time with patient: 15-25 minutes
[2016-07-25] MEDS: CEFEPIME 1 GM/D5W RTU 1 GM/50 ML RTUPB IV SCH (21:56)
[2016-07-25] MEDS ORDERED: LOPINAVIR/RITONAVIR 200-50 MG TABLET PO SCH (22:00)
[2016-07-26] MEDS: DEXAMETHASONE SOD PHOSPHATE INJ 4 MG/1 ML VIAL IV SCH ×2 (01:21→05:28)
[2016-07-26] MEDS: NITROGLYCERIN 2% OINTMENT 1 GM PACKET TP SCH ×2 (01:22→05:28)
[2016-07-26] MEDS: POTASSI CL 20 MEQ/1/2NS 1L 20 MEQ/1,000 ML RTUINJ IV SCH (01:28)
[2016-07-26] MEDS: LEVALBUTEROL HCL NEB 1.25 MG/3 ML AMPUL NEB SCH ×2 (02:15→08:09)
[2016-07-26 04:16] LABS: ABSOLUTE MONOCYTES (AUTO) 0.8 10^3/uL (0.1-1.4); ABSOLUTE NEUT (AUTO) 6.4 10^3/uL (1.7-8.2); BASOPHILS % (AUTO) 0.5 % (0-2); EOSINOPHILS % (AUTO) 0.1 % (0-6); HEMATOCRIT 35.8 % (37.9-51.0); HEMOGLOBIN 11.9 g/dL (13.5-17.0); HGB HCT DIFFERENCE -0.1; LYMPHOCYTES % (AUTO) 11.6 % (13-45); MEAN CORPUSCULAR HEMOGLOBIN 29.6 pg (27.0-33.4); MEAN CORPUSCULAR HGB CONC 33.3 g/dL (32.0-36.0); MEAN CORPUSCULAR VOLUME 89 fl (80-97); MONOCYTES % (AUTO) 10.1 % (3-13); RED BLOOD COUNT 4.03 10^6/uL (4.35-5.55); RED CELL DISTRIBUTION WIDTH 14.3 % (11.5-14.0); SEGMENTED NEUTROPHILS % (AUTO) 77.7 % (42-78); WHITE BLOOD COUNT 8.3 10^3/uL (4.0-10.5)
[2016-07-26 04:43] LABS: ANION GAP 13 (5-19); BLOOD UREA NITROGEN 69 mg/dL (7-20); CALCIUM 8.5 mg/dL (8.4-10.2); CARBON DIOXIDE 20 mmol/L (22-30); CHLORIDE 106 mmol/L (98-107); CREATININE RESULT 3.97 mg/dL (0.52-1.25); GLUCOSE 109 mg/dL (75-110); POTASSIUM 4.1 mmol/L (3.6-5.0)
--- NOTE | 2016-07-26 05:12 | EKG REPORT ---
SEVERITY:- ABNORMAL ECG - SINUS RHYTHM PROBABLE LEFT ATRIAL ABNORMALITY LEFT AXIS DEVIATION LEFT VENTRICULAR HYPERTROPHY BORDERLINE PROLONGED QT INTERVAL : Confirmed by: Beulah Storm 26-Jul-2016 05:10:44
[2016-07-26] MEDS: HEPARIN SOD (PORCINE) 5,000 UNIT/ML 1 ML SYRINGE SUBCUT SCH (05:27)
[2016-07-26] MEDS: ACETAMINOPHEN 325 MG TABLET NG PRN (06:40)
[2016-07-26] MEDS ORDERED: CALCIUM ACETATE 667 MG CAPSULE PO SCH (08:00)
[2016-07-26 09:14] VITALS: BP 173/94
[2016-07-26] MEDS ORDERED: CALCITRIOL 0.25 MCG CAPSULE PO SCH (10:00)
--- NOTE | 2016-07-26 10:59 | PDOC DISCHARGE SUMMARY ---
General - Admit/Disc Date/PCP Admission Date/Primary Care Provider: 07/21/16 17:46 Discharge Date: 07/26/16 - Discharge Diagnosis (1) Acute hypoxemic respiratory failure Is this a current diagnosis for this admission?: YesSummary: The patient had hypertensive emergency secondary to cocaine use that led to acute pulmonary edema requiring mechanical intubation. (2) Acute kidney injury superimposed on chronic kidney disease Is this a current diagnosis for this admission?: YesSummary: Secondary acute tubular necrosis because of the hypertensive emergency as well as cocaine. Creatinine reached as high as 5 but is now down to 3.9. (3) Cocaine abuse Is this a current diagnosis for this admission?: YesSummary: Patient has been counseled that he needs to quit using cocaine. (4) HIV (human immunodeficiency virus infection) Is this a current diagnosis for this admission?: Yes (5) Hypertensive emergency Is this a current diagnosis for this admission?: YesSummary: Secondary to cocaine. His blood pressure has returned to normal. (6) History of pulmonary embolism Is this a current diagnosis for this admission?: Yes (7) Hyperlipidemia Is this a current diagnosis for this admission?: Yes - Additional Information Resuscitation Status: Full Code Discharge Diet: Cardiac Discharge Activity: Activity As Tolerated, Balance Activity w/Rest, Weigh Daily Home Medications: Amlodipine Besylate 10 mg PO DAILY 09/06/15 Emtricitabine/Tenofovir [Truvada 200 mg-300 mg Tablet] 1 each PO Q2D 09/06/15 Lisinopril [Zestril] 2.5 mg PO Q12H 09/06/15 Lopinavir/Ritonavir [Kaletra 200-50 mg Tablet] 2 each PO BID 09/06/15 Pravastatin Sodium 40 mg PO DAILY 09/06/15 Pantoprazole Sodium [Protonix] 40 mg PO DAILY 07/22/16 Calcitriol [Rocaltrol 0.25 mcg Capsule] 0.25 mcg PO DAILY #30 capsule 07/26/16 Calcium Acetate [Phoslo 667 mg Capsule] 1,334 mg PO MEALS #90 capsule 07/26/16 Methylprednisolone [Medrol Dosepack (4 mg/Tab) 21 Tab/Dosepak] 4 mg PO ASDIR PRN #21 tab.ds.pk 07/26/16 History of Present Illness History of Present Illness: KRISTY CANTU is a 61 year old male who presented with respiratory distress. The patient is an HIV patient who had been abusing cocaine and he began complaining of shortness of breath. The patient called an ambulance and at the time that he was picked up by the ambulance his blood pressure was 206/119. Patient was found to be in congestive heart failure and because of a decreased level of consciousness he was intubated. Hospital Course Hospital Course: 61-year-old gentleman with HIV and cocaine abuse who presented with shortness of breath secondary to pulmonary edema. Patient was found to be very hypertensive and he had decreased level of consciousness requiring intubation. It's felt this patient had hypertensive emergency brought on by cocaine use. He did have mental status changes as well as pulmonary edema and acute renal failure. The patient blood pressure was lowered and his bradycardia was treated with diuretics. This improved. The patient also had acute renal failure felt secondary to acute tubular necrosis because of the hypertensive urgency as well as IV contrast that he received on admission. Nephrology was consulted and on the day of discharge the patient's creatinine was down to 3.9. The patient also had dilation by cardiology because of the pulmonary edema. The patient on the day of discharge is back to his baseline respiratory concepcion and his creatinine was improving and he was continued to make urine and it was felt that he was stable for discharge to home. The patient will follow-up with his infectious disease doctor the next 1-2 weeks. He also will follow up with Dr. Mitchell of nephrology in the next 1-2 weeks. During this hospitalization there was concern at the time of intubation there may be a soft tissue mass in the neck. CT of the neck showed no evidence of abnormalities. Because of the risk the patient was started on steroids prior to extubation and will finish a steroid taper. Physical Exam Vital Signs: Temp Pulse Resp BP Pulse Ox 97.8 F 71 18 173/94 H 96 07/26/16 09:11 07/26/16 09:11 07/26/16 09:11 07/26/16 09:11 07/26/16 09:11 Intake & Output 07/25/16 07/26/16 07/27/16 06:59 06:59 06:59 Intake Total 1075 4524 Output Total 1720 1300 Balance -645 3224 Weight 65.3 kg 65.7 kg General appearance: PRESENT: no acute distress Eye exam: PRESENT: conjunctiva pink Mouth exam: PRESENT: moist, tongue midline Neck exam: ABSENT: JVD Respiratory exam: PRESENT: clear to auscultation ramila. ABSENT: rales, rhonchi, wheezes Cardiovascular exam: PRESENT: RRR. ABSENT: diastolic murmur, rubs, systolic murmur GI/Abdominal exam: PRESENT: normal bowel sounds, soft. ABSENT: distended, guarding, mass, organolmegaly, rebound, tenderness Extremities exam: PRESENT: other - Status post bilateral amputation Neurological exam: PRESENT: alert, awake, oriented to person, oriented to place , oriented to time, oriented to situation Psychiatric exam: PRESENT: appropriate affect Skin exam: PRESENT: dry, intact, warm. ABSENT: cyanosis, rash Results Laboratory Results: 07/26/16 03:38 07/26/16 03:38 07/26/16 07/26/16 03:38 03:38 WBC 8.3 RBC 4.03 L Hgb 11.9 L Hct 35.8 L MCV 89 MCH 29.6 MCHC 33.3 RDW 14.3 H Plt Count 220 Seg Neutrophils % 77.7 Lymphocytes % 11.6 L Monocytes % 10.1 Eosinophils % 0.1 Basophils % 0.5 Absolute Neutrophils 6.4 Absolute Lymphocytes 1.0 Absolute Monocytes 0.8 Absolute Eosinophils 0.0 Absolute Basophils 0.0 Sodium 139.0 Potassium 4.1 Chloride 106 Carbon Dioxide 20 L Anion Gap 13 BUN 69 H Creatinine 3.97 H Est GFR ( Amer) 19 L Est GFR (Non-Af Amer) 15 L Glucose 109 Calcium 8.5 Phosphorus 5.0 H 07/21/16 07/21/16 07/22/16 18:38 18:38 00:29 Creatine Kinase 72 55 Troponin I 0.186 NT-Pro-B Natriuret Pep 07/22/16 07/22/16 07/22/16 00:29 06:07 06:07 Creatine Kinase 53 L Troponin I 0.261 0.282 NT-Pro-B Natriuret Pep 12159 H Impressions: Chest/Abdomen CTA 07/21/16 13:00 IMPRESSION: NO PULMONARY EMBOLI. SMALL BILATERAL PLEURAL EFFUSIONS. SATISFACTORY PLACEMENT ENDOTRACHEAL TUBE AND NASOGASTRIC TUBE. OTHERWISE STABLE APPEARANCE OF THE CHEST. Renal Ultrasound 07/22/16 00:00 IMPRESSION: As above. Since 2011, kidneys have undergone atrophy and are quite echogenic. No mass. No obstruction. Soft Tissue Neck CT 07/23/16 00:00 IMPRESSION: Patient has an endotracheal tube in place, this obscures visualization of the hypopharynx, supraglottic laryngeal structures, and vocal cords. Obstructive lung disease Endotracheal tube in good positioning Chest X-Ray 07/25/16 06:00 IMPRESSION: Stable chest status post extubation. Qualifiers PATEINT BEING DISCHARGED WITH ANY OF THE FOLLOWING DIAGNOSIS?: Heart Failure Reason(s) for not prescribing ACEI:: Procedure Contraindicated HF Pt being discharged on ARBS for LVEF less than 40%?: No Reason(s) for not prescribing ARBS:: Procedure Contraindicated HF Pt discharged on evidence-based Beta Johanna?: No Reason(s) for not prescribing evidence-based Beta Johanna:: Contraindicated Plan Discharge Plan: Discharge to home in stable condition.
[2016-07-27] MEDS ORDERED: EMTRICITABINE/TENOFOVIR 200-300 MG TABLET PO SCH (10:00)
== END 2016-07-26 09:44 | disposition home or self-care (01) | DRG 291 ==
LOC: ER 11:48 → UNDOADMIN 17:05 → EH 17:05 → ICU 17:35 → EH 17:46 → ICU 17:46 → 3N 07-25 15:19
PROC: 0BH17EZ Insertion of Endotracheal Airway into Trachea, Via Natural or Artificial Opening (ICD-10-PCS; principal; 2016-07-21)
PROC: 5A1945Z Respiratory Ventilation, 24-96 Consecutive Hours (ICD-10-PCS; 2016-07-21)
DX: I13.0 Hypertensive heart and chronic kidney disease with heart failure and stage 1 through stage 4 chronic kidney disease, or unspecified chronic kidney disease (principal); I50.43 Acute on chronic combined systolic (congestive) and diastolic (congestive) heart failure; J96.01 Acute respiratory failure with hypoxia; B20 Human immunodeficiency virus [HIV] disease; N17.0 Acute kidney failure with tubular necrosis; I16.1 Hypertensive emergency; N18.4 Chronic kidney disease, stage 4 (severe); N25.81 Secondary hyperparathyroidism of renal origin; F17.210 Nicotine dependence, cigarettes, uncomplicated; E11.51 Type 2 diabetes mellitus with diabetic peripheral angiopathy without gangrene; E11.22 Type 2 diabetes mellitus with diabetic chronic kidney disease; I25.2 Old myocardial infarction; K21.9 Gastro-esophageal reflux disease without esophagitis; F14.10 Cocaine abuse, uncomplicated; E78.5 Hyperlipidemia, unspecified; E83.41 Hypermagnesemia; T50.8X5A Adverse effect of diagnostic agents, initial encounter; R80.9 Proteinuria, unspecified; Z86.718 Personal history of other venous thrombosis and embolism; Z79.899 Other long term (current) drug therapy; R79.1 Abnormal coagulation profile; Z89.511 Acquired absence of right leg below knee; Z89.612 Acquired absence of left leg above knee; Z82.49 Family history of ischemic heart disease and other diseases of the circulatory system; Z83.3 Family history of diabetes mellitus; Z80.9 Family history of malignant neoplasm, unspecified
CPT/HCPCS: 36415; 70490; 71010; 71275; 76770; 80048; 80053; 80076; 80307; 81001; 82550; 82553; 82570; 82803; 82962; 83036; 83605; 83735; 83880; 83970; 84100; 84439; 84443; 84484; 85025; 85027; 86360; 87040; 87070; 87077; 87205; 88312; 93005; 93010; 93306; 94002; 94003; 94799; J0330; J0456; J0692; J0696; J1100; J1644; J1940; J2250; J2704; J2930; J3010; J3475; J3480; J3490; S0028

== ENCOUNTER → 2016-08-02 | Outpatient (CLI) | payer MEDICAID ==
[2016-08-02 12:31] LABS: HEMATOCRIT 41.6 % (37.9-51.0); HEMOGLOBIN 12.9 g/dL (13.5-17.0); HGB HCT DIFFERENCE -2.9; MEAN CORPUSCULAR HEMOGLOBIN 28.3 pg (27.0-33.4); MEAN CORPUSCULAR HGB CONC 31.1 g/dL (32.0-36.0); MEAN CORPUSCULAR VOLUME 91 fl (80-97); RED BLOOD COUNT 4.57 10^6/uL (4.35-5.55); RED CELL DISTRIBUTION WIDTH 14.8 % (11.5-14.0); WHITE BLOOD COUNT 7.9 10^3/uL (4.0-10.5)
[2016-08-05 15:38] LABS: ABSOLUTE CD 4 HELPER 636 /uL (359-1519); CD BASOPHILS 0 % (.); CD EOSINOPHILS 2 % (.); CD LYMPHS 27 % (.); CD MONOCYTES 12 % (.); CD NEUTROPHILS 59 % (.); HEMATOCRIT . 39.5 % (37.5-51.0); HEMOGLOBIN 13.3 g/dL (12.6-17.7); IMMATURE GRANULOCYTES 0 % (.); LYMPHS(ABSOLUTE) 2.1 x10E3/uL (0.7-3.1); MCH 29.4 pg (26.6-33.0); MCHC 33.7 g/dL (31.5-35.7); MCV 87 fL (79-97); NEUTROPHILS(ABSOLUTE) 4.6 x10E3/uL (1.4-7.0); PLATELETS 260 x10E3/uL (150-379); RBC 4.52 x10E6/uL (4.14-5.80); RDW 14.6 % (12.3-15.4); WBC 7.7 x10E3/uL (3.4-10.8)
[2016-08-06 07:09] LABS: HIV-1 RNA LOG10.. 2.342 (.); HIV-1 RNA PCR QUANT 220 copies/mL (.)
== END ==
LOC: OD 11:05
PROVIDERS: ATTEND Nurse Practitioner
DX: B20 Human immunodeficiency virus [HIV] disease (principal)
CPT/HCPCS: 36415; 85027; 86361; 87536

== ENCOUNTER 2016-10-07 08:39 | Observation (INO) | payer MEDICAID ==
[2016-10-07] MEDS ORDERED: IPRATROPIUM/ALBUTEROL 0.5-2.5 MG/3 ML AMPUL NEB ONE (08:55)
[2016-10-07 10:02] LABS: APPEARANCE,URINE CLEAR; BILIRUBIN,URINE NEGATIVE (NEGATIVE); GLUCOSE, URINE 50 mg/dL (NEGATIVE); KETONES,URINE NEGATIVE (NEGATIVE); LEUKOCYTE ESTERASE,URINE NEGATIVE (NEGATIVE); NITRITE,URINE NEGATIVE (NEGATIVE); PROTEIN,URINE 100 mg/dL (NEGATIVE); URINE SPECIFIC GRAVITY 1.006; UROBILINOGEN,URINE NEGATIVE mg/dL (<2.0)
[2016-10-07 10:14] LABS: ABSOLUTE EOSINOPHILS # (AUTO) 0.1 10^3/uL (0.0-0.6); ABSOLUTE LYMPHOCYTES (AUTO) 1.1 10^3/uL (0.5-4.7); ABSOLUTE MONOCYTES (AUTO) 0.6 10^3/uL (0.1-1.4); BASOPHILS % (AUTO) 0.6 % (0-2); EOSINOPHILS % (AUTO) 0.8 % (0-6); HEMATOCRIT 36.5 % (37.9-51.0); HEMOGLOBIN 12.1 g/dL (13.5-17.0); HGB HCT DIFFERENCE -0.2; LYMPHOCYTES % (AUTO) 14.7 % (13-45); MEAN CORPUSCULAR HEMOGLOBIN 30.7 pg (27.0-33.4); MEAN CORPUSCULAR HGB CONC 33.1 g/dL (32.0-36.0); MEAN CORPUSCULAR VOLUME 93 fl (80-97); MONOCYTES % (AUTO) 7.4 % (3-13); RED BLOOD COUNT 3.94 10^6/uL (4.35-5.55); RED CELL DISTRIBUTION WIDTH 15.5 % (11.5-14.0); SEGMENTED NEUTROPHILS % (AUTO) 76.5 % (42-78); WHITE BLOOD COUNT 7.8 10^3/uL (4.0-10.5)
[2016-10-07 10:33] LABS: ALANINE AMINOTRANSFERASE 183 U/L (21-72); ALBUMIN 3.6 g/dL (3.5-5.0); ALKALINE PHOSPHATASE 150 U/L (38-126); ANION GAP 13 (5-19); ASPARTATE AMINO TRANSFERASE 156 U/L (17-59); BILIRUBIN,DIRECT 0.2 mg/dL (0.0-0.4); BILIRUBIN,TOTAL 0.5 mg/dL (0.2-1.3); BLOOD UREA NITROGEN 25 mg/dL (7-20); CARBON DIOXIDE 17 mmol/L (22-30); CHLORIDE 119 mmol/L (98-107); CREATINE KINASE 87 U/L (55-170); CREATININE RESULT 3.87 mg/dL (0.52-1.25); GLUCOSE 128 mg/dL (75-110); POTASSIUM 4.3 mmol/L (3.6-5.0); TOTAL PROTEIN 6.3 g/dL (6.3-8.2)
[2016-10-07 10:45] LABS: CREATINE KINASE MB 2.12 ng/mL (<4.55)
[2016-10-07 10:51] LABS: TROPONIN I 0.054 ng/mL
[2016-10-07] MEDS ORDERED: ACETAMINOPHEN 325 MG TABLET PO ONE (11:59)
--- NOTE | 2016-10-07 13:40 | EKG REPORT ---
SEVERITY:- ABNORMAL ECG - SINUS RHYTHM PROBABLE LEFT ATRIAL ABNORMALITY LEFT AXIS DEVIATION LEFT VENTRICULAR HYPERTROPHY BORDERLINE PROLONGED QT INTERVAL : Confirmed by: Marco Young MD 07-Oct-2016 13:39:24
--- NOTE | 2016-10-07 13:48 | ER Document Report ---
ED General - General Chief Complaint: Shortness Of Breath Stated Complaint: DIFFICULTY BREATHING Mode of Arrival: Ambulatory Information source: Patient Notes: 61 yr old male hx of chf, bilateral lower extremity amputation post dvts presents with complaints of sob and chest pain. pt notes pain started today. pt admits ot cocaine use 2 days prior. pt notes sob with ambulation TRAVEL OUTSIDE OF THE [place] IN LAST 30 DAYS: No - HPI Onset: Just prior to arrival Onset/Duration: Sudden Quality of pain: Pressure Severity: Mild Pain Level: 1 Associated symptoms: Chest pain, Shortness of breath Exacerbated by: Walking Relieved by: Denies Similar symptoms previously: Yes Recently seen / treated by doctor: Yes - Related Data Allergies/Adverse Reactions: No Known Allergies Allergy (Verified 02/27/16 15:21) Past Medical History - Social History Smoking Status: Current Every Day Smoker Cigarette use (# per day): Yes Chew tobacco use (# tins/day): No Smoking Education Provided: Yes - Patient counselled regarding cessation for 4 minutes Frequency of alcohol use: None Drug Abuse: Cocaine Family History: CAD, CVA, DM, Hyperlipidemia, Hypertension, Malignancy Patient has suicidal ideation: No Patient has homicidal ideation: No - Past Medical History Cardiac Medical History: Reports: Hx DVT, Hx Heart Attack, Hx Hypercholesterolemia, Hx Hypertension, Hx Peripheral Vascular Disease, Hx Pulmonary Embolism Pulmonary Medical History: Reports: Hx Bronchitis, Hx Pneumonia Denies: Hx Asthma, Hx COPD Neurological Medical History: Denies: Hx Seizures Endocrine Medical History: Reports: Hx Diabetes Mellitus Type 1, Hx Diabetes Mellitus Type 2 Renal/ Medical History: Reports: Hx Renal Insufficiency. Denies: Hx Peritoneal Dialysis GI Medical History: Reports: Hx Gastroesophageal Reflux Disease Musculoskeltal Medical History: Denies Hx Arthritis, 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, Reports Hx Musculoskeletal Trauma Psychiatric Medical History: Infectious Medical History: Reports: Hx HIV Past Surgical History: Reports: Hx Orthopedic Surgery - bilateral amputation, R BKA, L AKA, Hx Vascular Surgery - stents right chest, left arm clot removed, IVC filter, Other - Endoscopy - Immunizations Immunizations up to date: Yes Hx Diphtheria, Pertussis, Tetanus Vaccination: Yes Hx Pneumococcal Vaccination: 07/21/10 Review of Systems - Review of Systems Notes: REVIEW OF SYSTEMS: CONSTITUTIONAL : Denies fever, chills, or sweats. Denies recent illness. EENT: Denies eye, ear, throat, or mouth pain or symptoms. Denies nasal or sinus congestion or discharge. Denies throat, tongue, or mouth swelling or difficulty swallowing. CARDIOVASCULAR: Admits to chest pain shortness breath RESPIRATORY: Denies cough, cold, or chest congestion. Denies shortness of breath, difficulty breathing, or wheezing. GASTROINTESTINAL: Denies abdominal pain or distention. Denies nausea, vomiting , or diarrhea. Denies blood in vomitus, stools, or per rectum. Denies black, tarry stools. Denies constipation. GENITOURINARY: Denies difficulty urinating, painful urination, burning, frequency, blood in urine, or discharge. MUSCULOSKELETAL: Denies back or neck pain or stiffness. Denies joint pain or swelling. SKIN: Denies rash, lesions or sores. HEMATOLOGIC : Denies easy bruising or bleeding. LYMPHATIC: Denies swollen, enlarged glands. NEUROLOGICAL: Denies confusion or altered mental status. Denies passing out or loss of consciousness. Denies dizziness or lightheadedness. Denies headache. Denies weakness or paralysis or loss of use of either side. Denies problems with gait or speech. Denies sensory loss, numbness, or tingling. Denies seizures. PSYCHIATRIC: Denies anxiety or stress. Denies depression, suicidal ideation, or homicidal ideation. ALL OTHER SYSTEMS REVIEWED AND NEGATIVE. Dictation was performed using [employer] voice recognition software PHYSICAL EXAMINATION: GENERAL: Well-appearing, well-nourished and in no acute distress. HEAD: Atraumatic, normocephalic. EYES: Pupils equal round and reactive to light, extraocular movements intact, sclera anicteric, conjunctiva are normal. ENT: Nares patent, oropharynx clear without exudates. Moist mucous membranes. NECK: Normal range of motion, supple without lymphadenopathy LUNGS: Breath sounds clear to auscultation bilaterally and equal. No wheezes rales or rhonchi. HEART: Regular rate and rhythm without murmurs ABDOMEN: Soft, nontender, nondistended abdomen. No guarding, no rebound. No masses appreciated. Musculoskeletal: Left knee below-knee amputation right above knee amputation NEUROLOGICAL: Cranial nerves grossly intact. Normal speech, normal gait. Normal sensory, motor exams PSYCH: Normal mood, normal affect. SKIN: Warm, Dry, normal turgor, no rashes or lesions noted. Physical Exam - Vital signs Vitals: Pulse Ox 94 03/20/17 08:41 Course - Re-evaluation Re-evalutation: 10/07/16 13:53 Patient's lab work notes chronic kidney disease with congestive heart failure. Patient appears in no distress at this time however given history of chest pain I do believe an ACS rule out is necessary with his cocaine abuse - Vital Signs Vital signs: Temp Pulse Resp BP Pulse Ox 18 158/73 H 97 10/07/16 13:15 10/07/16 13:15 10/07/16 13:15 - Laboratory Result Diagrams: 10/07/16 09:55 10/07/16 09:55 Laboratory results interpreted by me: 10/07/16 10/07/16 10/07/16 09:41 09:55 09:55 RBC 3.94 L Hgb 12.1 L Hct 36.5 L RDW 15.5 H Sodium 149.0 H Chloride 119 H Carbon Dioxide 17 L BUN 25 H Creatinine 3.87 H Est GFR ( Amer) 19 L Est GFR (Non-Af Amer) 16 L Glucose 128 H AST 156 H ALT 183 H Alkaline Phosphatase 150 H NT-Pro-B Natriuret Pep Urine Protein 100 H Urine Glucose (UA) 50 H Urine Blood SMALL H 10/07/16 09:55 RBC Hgb Hct RDW Sodium Chloride Carbon Dioxide BUN Creatinine Est GFR ( Amer) Est GFR (Non-Af Amer) Glucose AST ALT Alkaline Phosphatase NT-Pro-B Natriuret Pep 90408 H Urine Protein Urine Glucose (UA) Urine Blood - Diagnostic Test Radiology reviewed: Image reviewed, Reports reviewed - EKG Interpretation by Me EKG shows normal: Sinus rhythm, [place], Intervals, QRS Complexes Discharge - Discharge Clinical Impression: Cocaine abuse, Chronic kidney disease, stage IV (severe), Acute on chronic combined systolic and diastolic congestive heart failure Chest pain Qualifiers: Chest pain type: unspecified Qualified Code(s): R07.9 - Chest pain, unspecified Condition: Stable Disposition: ADMITTED OBSERVATION Admitting Provider: Hospitalist Unit Admitted: Telemetry
[2016-10-07] MEDS ORDERED: NITROGLYCERIN 0.4 MG/TAB 25 TAB/BOTTLE SL PRN (14:20)
[2016-10-07] MEDS ORDERED: ENOXAPARIN SODIUM INJ 30 MG/0.3 ML DISP.SYRIN SUBCUT ONE (16:00)
[2016-10-07] MEDS ORDERED: POTASSIUM CHLORIDE 10 MEQ TABLET.SA PO ONE (16:00)
[2016-10-07] MEDS ORDERED: FUROSEMIDE INJ/PF 100 MG/10 ML SDV IV ONE (16:00)
[2016-10-07] MEDS: LANSOPRAZOLE 30 MG TAB.RAP.DR PO SCH (17:40)
[2016-10-07] MEDS: HEPARIN SOD (PORCINE) 5,000 UNIT/ML 1 ML SYRINGE SUBCUT SCH (17:40)
[2016-10-07] MEDS ORDERED: BECLOMETHASONE DIPROPIONATE IH PRN (18:27)
[2016-10-07] MEDS ORDERED: ALBUTEROL SULFATE HFA (90 MCG/PUFF) 8 GM MDI (1 MDI/ER DISP) IH PRN (18:27)
[2016-10-07] MEDS ORDERED: ALBUTEROL SULFATE HFA (90 MCG/PUFF) 200 PUFF/8.5 GM MDI IH PRN (18:45)
[2016-10-07] MEDS ORDERED: LOPINAVIR PO SCH (22:00)
[2016-10-07] MEDS ORDERED: RITONAVIR PO SCH (22:00)
[2016-10-07] MEDS ORDERED: ATORVASTATIN CALCIUM 20 MG TABLET PO SCH (22:00)
[2016-10-07] MEDS: LOPINAVIR/RITONAVIR 200-50 MG TABLET PO SCH (22:26)
[2016-10-08 06:08] LABS: CHOLESTEROL 117.97 mg/dL (0-200); Direct HDL 48 mg/dL (>40); TRIGLYCERIDES 72 mg/dL (<150)
[2016-10-08 06:20] LABS: DIRECT LDL 44 mg/dL (<100)
[2016-10-08] MEDS: LANSOPRAZOLE 30 MG TAB.RAP.DR PO SCH (06:30)
[2016-10-08] MEDS: HEPARIN SOD (PORCINE) 5,000 UNIT/ML 1 ML SYRINGE SUBCUT SCH (06:30)
[2016-10-08] MEDS ORDERED: ENOXAPARIN SODIUM INJ 30 MG/0.3 ML DISP.SYRIN SUBCUT SCH (08:00)
[2016-10-08 08:16] VITALS: BP 166/96
[2016-10-08] MEDS ORDERED: AMLODIPINE BESYLATE 10 MG TABLET PO SCH (10:00)
[2016-10-08] MEDS ORDERED: CALCITRIOL 0.25 MCG CAPSULE PO SCH (10:00)
[2016-10-08] MEDS ORDERED: EMTRICITABINE/TENOFOVIR 200-300 MG TABLET PO SCH (10:00)
[2016-10-08] MEDS ORDERED: (PENDING PHARMACY ID) (Pravastatin Sodium [Pravachol] 40 MG) PO SCH (10:00)
[2016-10-08] MEDS ORDERED: CALCIUM ACETATE 667 MG CAPSULE PO SCH (10:00)
[2016-10-08] MEDS ORDERED: LISINOPRIL 5 MG TABLET PO SCH (10:00)
[2016-10-08] MEDS ORDERED: FUROSEMIDE 40 MG TABLET PO SCH (10:00)
[2016-10-08] MEDS ORDERED: ASPIRIN 81 MG TABLET, ENT COATED PO SCH (10:00)
[2016-10-08] MEDS: LOPINAVIR/RITONAVIR 200-50 MG TABLET PO SCH (10:23)
--- NOTE | 2016-10-08 16:35 | PDOC DISCHARGE SUMMARY ---
General - Admit/Disc Date/PCP Admission Date/Primary Care Provider: 10/07/16 14:47 Outpatient and consulting Barbering Teacher: Dr. Storm Discharge Date: 10/08/16 - Discharge Diagnosis (1) Acute on chronic combined systolic and diastolic congestive heart failure Is this a current diagnosis for this admission?: Yes (2) Chronic kidney disease, stage IV (severe) Is this a current diagnosis for this admission?: Yes (3) Cocaine abuse Is this a current diagnosis for this admission?: Yes (4) Tobacco abuse Is this a current diagnosis for this admission?: Yes (5) HIV (human immunodeficiency virus infection) Is this a current diagnosis for this admission?: Yes (6) Hyperlipidemia Is this a current diagnosis for this admission?: Yes (7) Secondary hyperparathyroidism (of renal origin) Is this a current diagnosis for this admission?: Yes (8) Sleep disorder breathing Is this a current diagnosis for this admission?: Yes (9) Hypertensive urgency Is this a current diagnosis for this admission?: Yes (10) Transaminitis Is this a current diagnosis for this admission?: YesSummary: Denies any abdominal pain and is elected to evaluate this in outpatient basis. - Additional Information Resuscitation Status: Full Code Discharge Diet: As Tolerated Discharge Activity: Activity As Tolerated, Balance Activity w/Rest, Weigh Daily Home Medications: Albuterol Sulfate [Proair HFA] 2 puff IH Q4 PRN 10/07/16 Amlodipine Besylate [Norvasc 10 mg Tablet] 10 mg PO DAILY 10/07/16 Beclomethasone Dipropionate [Qvar] 1 inh IH BID PRN 10/07/16 Calcitriol [Rocaltrol 0.25 mcg Capsule] 1 cap PO DAILY 10/07/16 Calcium Acetate [Phoslo 667 mg Capsule] 667 mg PO DAILY 10/07/16 Emtricitabine/Tenofovir [Truvada 200 mg-300 mg Tablet] 1 each PO Q2D 10/07/16 Lisinopril [Prinivil 5 mg Tablet] 5 mg PO DAILY 10/07/16 Lopinavir/Ritonavir [Kaletra 200-50 mg Tablet] 1 each PO Q12 10/07/16 Pantoprazole Sodium [Protonix] 40 mg PO DAILY 10/07/16 Pravastatin Sodium [Pravachol] 40 mg PO DAILY 10/07/16 Aspirin [Ecotrin 81 mg EC Tablet] 81 mg PO DAILY #30 tabec 10/08/16 Furosemide [Lasix] 40 mg PO DAILY #30 tablet 10/08/16 Additional Information: Hold statin until evaluated by primary care provider for transaminitis. 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 Patient notes pain started today. Patient admits to cocaine use 2 days prior. Patient notes sob with ambulation. The patient has been seen and evaluated by cardiology in the past. The patient is noted to have significant cardiomyopathy however the patient currently is not taking any diuretic at home. The patient is quite eager for discharge. Hospital Course Hospital Course: The patient was admitted to continuous telemetry unit. The patient was diuresed with IV diuretic and continued on home medications including aspirin, DANIE inhibitor. Beta gregorio has been deferred given the patient's consistent cocaine use. The patient had significant improvement in symptoms. The patient received education and was instructed on dietary habits as well as daily weights. The patient will follow-up with cardiology in outpatient basis. Physical Exam Vital Signs: Temp Pulse Resp BP Pulse Ox 98.7 F 88 16 166/96 H 100 10/08/16 10:28 10/08/16 10:28 10/08/16 10:28 10/08/16 10:28 10/08/16 10:28 Intake & Output 10/06/16 10/07/16 10/08/16 23:59 23:59 23:59 Intake Total 2 800 Output Total 1420 Balance 2 -620 Weight 68.3 kg Results Laboratory Results: Labs- Last Values WBC 7.8 10^3/uL (4.0-10.5) 10/07/16 09:55 RBC 3.94 10^6/uL (4.35-5.55) L 10/07/16 09:55 Hgb 12.1 g/dL (13.5-17.0) L 10/07/16 09:55 Hct 36.5 % (37.9-51.0) L 10/07/16 09:55 MCV 93 fl (80-97) 10/07/16 09:55 MCH 30.7 pg (27.0-33.4) 10/07/16 09:55 MCHC 33.1 g/dL (32.0-36.0) 10/07/16 09:55 RDW 15.5 % (11.5-14.0) H 10/07/16 09:55 Plt Count 173 10^3/uL (150-450) 10/07/16 09:55 Seg Neutrophils % 76.5 % (42-78) 10/07/16 09:55 Lymphocytes % 14.7 % (13-45) 10/07/16 09:55 Monocytes % 7.4 % (3-13) 10/07/16 09:55 Eosinophils % 0.8 % (0-6) 10/07/16 09:55 Basophils % 0.6 % (0-2) 10/07/16 09:55 Absolute Neutrophils 6.0 10^3/uL (1.7-8.2) 10/07/16 09:55 Absolute Lymphocytes 1.1 10^3/uL (0.5-4.7) 10/07/16 09:55 Absolute Monocytes 0.6 10^3/uL (0.1-1.4) 10/07/16 09:55 Absolute Eosinophils 0.1 10^3/uL (0.0-0.6) 10/07/16 09:55 Absolute Basophils 0.0 10^3/uL (0.0-0.2) 10/07/16 09:55 Sodium 149.0 mmol/L (137-145) H 10/07/16 09:55 Potassium 4.3 mmol/L (3.6-5.0) 10/07/16 09:55 Chloride 119 mmol/L (98-107) H 10/07/16 09:55 Carbon Dioxide 17 mmol/L (22-30) L 10/07/16 09:55 Anion Gap 13 (5-19) 10/07/16 09:55 BUN 25 mg/dL (7-20) H 10/07/16 09:55 Creatinine 3.87 mg/dL (0.52-1.25) H 10/07/16 09:55 Est GFR ( Amer) 19 (>60) L 10/07/16 09:55 Est GFR (Non-Af Amer) 16 (>60) L 10/07/16 09:55 Glucose 128 mg/dL (75-110) H 10/07/16 09:55 Calcium 9.0 mg/dL (8.4-10.2) 10/07/16 09:55 Total Bilirubin 0.5 mg/dL (0.2-1.3) 10/07/16 09:55 Direct Bilirubin 0.2 mg/dL (0.0-0.4) 10/07/16 09:55 AST 156 U/L (17-59) H 10/07/16 09:55 ALT 183 U/L (21-72) H 10/07/16 09:55 Alkaline Phosphatase 150 U/L (38-126) H 10/07/16 09:55 Creatine Kinase 87 U/L (55-170) 10/07/16 09:55 CK-MB (CK-2) 2.12 ng/mL (<4.55) 10/07/16 09:55 Troponin I 0.054 ng/mL 10/07/16 09:55 NT-Pro-B Natriuret Pep 41457 pg/mL (5-900) H 10/07/16 09:55 Total Protein 6.3 g/dL (6.3-8.2) 10/07/16 09:55 Albumin 3.6 g/dL (3.5-5.0) 10/07/16 09:55 Triglycerides 72 mg/dL (<150) 10/08/16 04:40 Cholesterol 117.97 mg/dL (0-200) 10/08/16 04:40 LDL Cholesterol Direct 44 mg/dL (<100) 10/08/16 04:40 VLDL Cholesterol 14.0 mg/dL (10-31) 10/08/16 04:40 HDL Cholesterol 48 mg/dL (>40) 10/08/16 04:40 Urine Color COLORLESS 10/07/16 09:41 Urine Appearance CLEAR 10/07/16 09:41 Urine pH 7.0 (5.0-9.0) 10/07/16 09:41 Ur Specific [place] 1.006 10/07/16 09:41 Urine Protein 100 mg/dL (NEGATIVE) H 10/07/16 09:41 Urine Glucose (UA) 50 mg/dL (NEGATIVE) H 10/07/16 09:41 Urine Ketones NEGATIVE mg/dL (NEGATIVE) 10/07/16 09:41 Urine Blood SMALL (NEGATIVE) H 10/07/16 09:41 Urine Nitrite NEGATIVE (NEGATIVE) 10/07/16 09:41 Urine Bilirubin NEGATIVE (NEGATIVE) 10/07/16 09:41 Urine Urobilinogen NEGATIVE mg/dL (<2.0) 10/07/16 09:41 Ur Leukocyte Esterase NEGATIVE (NEGATIVE) 10/07/16 09:41 Urine WBC (Auto) 0 /HPF 10/07/16 09:41 Urine RBC (Auto) 2 /HPF 10/07/16 09:41 Urine Ascorbic Acid NEGATIVE (NEGATIVE) 10/07/16 09:41 Impressions: Chest X-Ray 10/07/16 08:41 IMPRESSION: Borderline /slight cardiomegaly with slight vascular congestion and patchy right basilar density. Lung Scan-[facility] 10/07/16 10:37 IMPRESSION: NORMAL VENTILATION-PERFUSION LUNG SCAN. NEGATIVE FOR PULMONARY EMBOLI. Qualifiers PATEINT BEING DISCHARGED WITH ANY OF THE FOLLOWING DIAGNOSIS?: Heart Failure HF Pt being discharged on ACEI for LVEF less than 40%?: Yes HF Pt being discharged on ARBS for LVEF less than 40%?: No Reason(s) for not prescribing ARBS:: Not indicated HF Pt discharged on evidence-based Beta Gregorio?: No Reason(s) for not prescribing evidence-based Beta Gregorio:: Contraindicated - Cocaine use Plan Time Spent: Less than 30 Minutes
--- NOTE | 2016-10-08 18:18 | PDOC H&P ---
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 His oxygen saturation on room air is 95%. His chest x-ray showed mild vascular congestion. EKG was unremarkable for any ST or T-wave changes. He was hospitalized in July after doing crack cocaine with acute on chronic diastolic heart failure requiring intubation at that time. He reports no significant dietary modifications or restrictions. He has not been able to find a primary care provider. He admits to using crack cocaine 2 days prior to his presentation here. He is followed by [place] [facility] for his HIV. He is scheduled to follow with Dr. Renteria nephrology in October. He states his chest pain occurred at rest and after shortness of breath head are restarted. He does not ambulate. He has a jalil for transportation. He denies any chest pain at the present time. He states chest pain was only one time and short interval. It went away with no intervention. He has no prior history of SD after using cocaine. He smokes 1/2 pack per day. Pain was midsternal, it did not radiate There was no associated diaphoresis or palpitations. He denies any nausea. He denies any gastroesophageal reflux disease. Past Medical History Cardiac Medical History: Reports: DVT, Myocardial Infarction, Hyperlipidema, Hypertension, Peripheral Vascular Disease, Pulmonary Embolism Pulmonary Medical History: Reports: Bronchitis, Pneumonia Denies: Asthma, Chronic Obstructive Pulmonary Disease (COPD) EENT Medical History: Reports: None Neurological Medical History: Reports: None Denies: Seizures Renal/ Medical History: Reports: Chronic Kidney Disease Malignancy Medical History: Reports: None GI Medical History: Reports: Gastroesophageal Reflux Disease Musculoskeltal Medical History: Denies: Arthritis Skin Medical History: Reports: None Psychiatric Medical History: Reports: Alcohol Dependency Hematology: Reports: None Denies: Anemia Infectious Medical History: Reports: HIV Past Surgical History Past Surgical History: Reports: Orthopedic Surgery - bilateral amputation, R BKA , L AKA, Vascular Surgery - stents right chest, left arm clot removed, IVC filter, Other - Endoscopy Social History Information Source: Patient Lives with: Alone Smoking Status: Current Every Day Smoker Cigarettes Packs Per Day: 0.5 Number of Years Smokin Frequency of Alcohol Use: Social Hx Recreational Drug Use: Yes Drugs: Cocaine Hx Prescription Drug Abuse: No - Advance Directive Resuscitation Status: Full Code Surrogate healthcare decision maker:: Brother Kennedy in [place] Family History Family History: CAD, CVA, DM, Hyperlipidemia, Hypertension, Malignancy Parental Family History Reviewed: Yes Children Family History Reviewed: No Sibling(s) Family History Reviewed.: Yes Medication/Allergy Home Medications: Albuterol Sulfate [Proair HFA] 2 puff IH Q4 PRN 10/07/16 Amlodipine Besylate [Norvasc 10 mg Tablet] 10 mg PO DAILY 10/07/16 Beclomethasone Dipropionate [Qvar] 1 inh IH BID PRN 10/07/16 Calcitriol [Rocaltrol 0.25 Mcg Capsule] 1 cap PO DAILY 10/07/16 Calcium Acetate [Phoslo 667 Mg Capsule] 667 mg PO DAILY 10/07/16 Emtricitabine/Tenofovir [Truvada 200 mg-300 mg Tablet] 1 each PO Q2D 10/07/16 Lisinopril [Prinivil 5 mg Tablet] 5 mg PO DAILY 10/07/16 Lopinavir/Ritonavir [Kaletra 200-50 mg Tablet] 1 each PO Q12 10/07/16 Pantoprazole Sodium [Protonix] 40 mg PO DAILY 10/07/16 Pravastatin Sodium [Pravachol] 40 mg PO DAILY 10/07/16 Allergies/Adverse Reactions: No Known Allergies Allergy (Verified 02/27/16 15:21) Review of Systems Constitutional: ABSENT: chills, fever(s), headache(s), weight gain, weight loss Eyes: ABSENT: visual disturbances Ears: ABSENT: hearing changes Cardiovascular: PRESENT: chest pain, dyspnea on exertion Respiratory: PRESENT: cough Gastrointestinal: ABSENT: abdominal pain, constipation, diarrhea, hematemesis, hematochezia, nausea, vomiting Genitourinary: ABSENT: dysuria, hematuria Musculoskeletal: ABSENT: joint swelling Integumentary: ABSENT: rash, wounds Neurological: ABSENT: abnormal gait, abnormal speech, confusion, dizziness, focal weakness, syncope Psychiatric: ABSENT: anxiety, depression, homidical ideation, suicidal ideation Endocrine: ABSENT: cold intolerance, heat intolerance, polydipsia, polyuria Hematologic/Lymphatic: ABSENT: easy bleeding, easy bruising Physical Exam Vital Signs: Temp Pulse Resp BP Pulse Ox 15 146/79 H 99 10/07/16 16:31 10/07/16 16:31 10/07/16 16:31 General appearance: PRESENT: no acute distress, well-developed, well-nourished Head exam: PRESENT: atraumatic Eye exam: PRESENT: conjunctiva pink, EOMI, PERRLA. ABSENT: scleral icterus Ear exam: PRESENT: normal external ear exam Mouth exam: PRESENT: moist, tongue midline Neck exam: ABSENT: carotid bruit, JVD, lymphadenopathy, thyromegaly Respiratory exam: PRESENT: crackles, other - bilateral bases. ABSENT: rales, rhonchi, wheezes Cardiovascular exam: PRESENT: RRR. ABSENT: diastolic murmur, rubs, systolic murmur Pulses: PRESENT: normal dorsalis pedis pul Vascular exam: PRESENT: normal capillary refill GI/Abdominal exam: PRESENT: normal bowel sounds, soft. ABSENT: distended, guarding, mass, organolmegaly, rebound, tenderness Rectal exam: PRESENT: deferred Extremities exam: PRESENT: full ROM. ABSENT: calf tenderness, clubbing, pedal edema Musculoskeletal exam: PRESENT: other - bilateral BKA, no prosthesis Neurological exam: PRESENT: alert, awake, oriented to person, oriented to place , oriented to time, oriented to situation, CN II-XII grossly intact. ABSENT: motor sensory deficit Psychiatric exam: PRESENT: appropriate affect, normal mood. ABSENT: homicidal ideation, suicidal ideation Skin exam: PRESENT: dry, intact, warm. ABSENT: cyanosis, rash Results Impressions: Chest X-Ray 10/07/16 08:41 IMPRESSION: Borderline /slight cardiomegaly with slight vascular congestion and patchy right basilar density. Lung Scan-[facility] 10/07/16 10:37 IMPRESSION: NORMAL VENTILATION-PERFUSION LUNG SCAN. NEGATIVE FOR PULMONARY EMBOLI. Assessment & Plan - Diagnosis (1) Acute on chronic combined systolic and diastolic congestive heart failure Is this a current diagnosis for this admission?: YesPlan: Patient was given Lasix 80 mg 1. We'll continue to monitor. He presently does not require oxygen. His counseled on dietary modifications he needs to make. As well as not using crack cocaine. (2) Chest pain Qualifiers: Chest pain type: unspecified Qualified Code(s): R07.9 - Chest pain, unspecified Is this a current diagnosis for this admission?: YesPlan: Chief negative troponin and EKG. We will admit to telemetry as observation patient serial troponins overnight. (3) Chronic kidney disease, stage IV (severe) Is this a current diagnosis for this admission?: YesPlan: Patient has chronic kidney disease stage IV he is going to follow-up with Dr. Renteria, nephrology. We will avoid nephrotoxic drugs and dosages. She consult on him during his last hospitalization here. (4) Cocaine abuse Is this a current diagnosis for this admission?: YesPlan: Patient was counseled on the need to stop using cocaine with his heart. (5) Tobacco abuse Is this a current diagnosis for this admission?: YesPlan: Counseled - Time Time Spent: 50 to 70 Minutes Critical Time spent with patient: 25-34 minutes Smoking Cessation Education: 3 to 10 minutes Medications reviewed and adjusted accordingly: Yes - Inpatient Certification Based on my medical assessment, after consideration of the patient's comorbidities, presenting symptoms, or acuity I expect that the services needed warrant INPATIENT care.: Yes I certify that my determination is in accordance with my understanding of Medicare's requirements for reasonable and necessary INPATIENT services [42 CFR 412.3e].: Yes
== END 2016-10-08 11:00 | disposition home or self-care (01) ==
LOC: ER 08:39 → EH 14:47 → 5 17:19
PROVIDERS: ADMIT Family Medicine; ATTEND Family Medicine
DX: I13.2 Hypertensive heart and chronic kidney disease with heart failure and with stage 5 chronic kidney disease, or end stage renal disease (principal); N18.5 Chronic kidney disease, stage 5; I50.43 Acute on chronic combined systolic (congestive) and diastolic (congestive) heart failure; I16.0 Hypertensive urgency; F14.10 Cocaine abuse, uncomplicated; Z71.6 Tobacco abuse counseling; Z72.0 Tobacco use; B20 Human immunodeficiency virus [HIV] disease; E78.5 Hyperlipidemia, unspecified; G47.30 Sleep apnea, unspecified; R74.0 Nonspecific elevation of levels of transaminase and lactic acid dehydrogenase [LDH]
CPT/HCPCS: 93005; 99406; 94640; 99285; 96374; 36415 ×2; 82553; 82550; 85025; 80053; 81001; 84484; 80061; 83880; 71010; 78582; 93010; G0378 ×3; A9540; A9567; J3490 ×10; J1644 ×2; J1940; J7620; Q9969

== ENCOUNTER 2016-11-07 04:56 | Emergency (ER) | payer MEDICAID | END 2016-11-07 05:15 | disposition left against medical advice (07) | LOC: ER 04:56 | DX: Z53.21 Procedure and treatment not carried out due to patient leaving prior to being seen by health care provider (principal) ==

== ENCOUNTER → 2016-11-29 | Outpatient (CLI) | payer MEDICAID ==
[2016-11-29 12:15] LABS: APPEARANCE,URINE CLEAR; BILIRUBIN,URINE NEGATIVE (NEGATIVE); GLUCOSE, URINE NEGATIVE (NEGATIVE); KETONES,URINE NEGATIVE (NEGATIVE); LEUKOCYTE ESTERASE,URINE NEGATIVE (NEGATIVE); NITRITE,URINE NEGATIVE (NEGATIVE); PROTEIN,URINE 100 mg/dL (NEGATIVE); URINE SPECIFIC GRAVITY 1.008; UROBILINOGEN,URINE NEGATIVE mg/dL (<2.0)
[2016-11-29 12:19] LABS: ABSOLUTE BASOPHILS # (AUTO) 0.1 10^3/uL (0.0-0.2); ABSOLUTE EOSINOPHILS # (AUTO) 0.3 10^3/uL (0.0-0.6); ABSOLUTE LYMPHOCYTES (AUTO) 2.5 10^3/uL (0.5-4.7); ABSOLUTE MONOCYTES (AUTO) 0.4 10^3/uL (0.1-1.4); EOSINOPHILS % (AUTO) 6.5 % (0-6); HEMATOCRIT 37.5 % (37.9-51.0); HEMOGLOBIN 12.6 g/dL (13.5-17.0); HGB HCT DIFFERENCE 0.3; LYMPHOCYTES % (AUTO) 47.4 % (13-45); MEAN CORPUSCULAR HEMOGLOBIN 31.2 pg (27.0-33.4); MEAN CORPUSCULAR HGB CONC 33.7 g/dL (32.0-36.0); MEAN CORPUSCULAR VOLUME 93 fl (80-97); MONOCYTES % (AUTO) 8.1 % (3-13); RED BLOOD COUNT 4.04 10^6/uL (4.35-5.55); RED CELL DISTRIBUTION WIDTH 14.7 % (11.5-14.0); WHITE BLOOD COUNT 5.3 10^3/uL (4.0-10.5)
[2016-11-29 12:57] LABS: URINE CREATININE 59.3 mg/dL (22-328); URINE PROTEIN 110.5 mg/dL (<12)
[2016-11-29 13:53] LABS: FOLATE 7.69 ng/mL (>2.76)
[2016-11-29 13:58] LABS: CALCIUM 9.1 mg/dL (8.4-10.2); GLUCOSE 82 mg/dL (75-110)
[2016-11-29 13:59] LABS: ALBUMIN 3.6 g/dL (3.5-5.0); ANION GAP 11 (5-19); BLOOD UREA NITROGEN 30 mg/dL (7-20); CARBON DIOXIDE 14 mmol/L (22-30); CHLORIDE 115 mmol/L (98-107); CREATININE RESULT 3.98 mg/dL (0.52-1.25); PHOSPHORUS 4.6 mg/dL (2.5-4.5); POTASSIUM 4.8 mmol/L (3.6-5.0)
[2016-11-30 12:26] LABS: VITAMIN D 25-HYDROXY 19.5 ng/mL (30.0-100.0)
== END ==
LOC: OD 11:16
PROVIDERS: ATTEND Internal Medicine Nephrology
DX: N18.4 Chronic kidney disease, stage 4 (severe) (principal); E21.3 Hyperparathyroidism, unspecified
CPT/HCPCS: 36415; 80048; 81001; 82040; 82306; 82570; 82728; 82746; 83540; 83550; 83970; 84100; 84156; 85025

== ENCOUNTER → 2017-03-14 | Outpatient (CLI) | payer MEDICAID ==
[2017-03-14 15:19] LABS: ABSOLUTE EOSINOPHILS # (AUTO) 0.3 10^3/uL (0.0-0.6); ABSOLUTE LYMPHOCYTES (AUTO) 2.4 10^3/uL (0.5-4.7); ABSOLUTE MONOCYTES (AUTO) 0.6 10^3/uL (0.1-1.4); ABSOLUTE NEUT (AUTO) 2.2 10^3/uL (1.7-8.2); BASOPHILS % (AUTO) 0.8 % (0-2); EOSINOPHILS % (AUTO) 5.8 % (0-6); HEMATOCRIT 34.3 % (37.9-51.0); HEMOGLOBIN 11.7 g/dL (13.5-17.0); HGB HCT DIFFERENCE 0.8; MEAN CORPUSCULAR HEMOGLOBIN 31.8 pg (27.0-33.4); MEAN CORPUSCULAR VOLUME 93 fl (80-97); RED BLOOD COUNT 3.67 10^6/uL (4.35-5.55); RED CELL DISTRIBUTION WIDTH 13.6 % (11.5-14.0); SEGMENTED NEUTROPHILS % (AUTO) 39.4 % (42-78); WHITE BLOOD COUNT 5.5 10^3/uL (4.0-10.5)
[2017-03-14 15:26] LABS: APPEARANCE,URINE CLEAR; BILIRUBIN,URINE NEGATIVE (NEGATIVE); GLUCOSE, URINE NEGATIVE (NEGATIVE); KETONES,URINE NEGATIVE (NEGATIVE); LEUKOCYTE ESTERASE,URINE NEGATIVE (NEGATIVE); NITRITE,URINE NEGATIVE (NEGATIVE); PROTEIN,URINE 30 mg/dL (NEGATIVE); URINE SPECIFIC GRAVITY 1.009; UROBILINOGEN,URINE NEGATIVE mg/dL (<2.0)
[2017-03-14 15:48] LABS: ALANINE AMINOTRANSFERASE 23 U/L (21-72); ALBUMIN 3.8 g/dL (3.5-5.0); ALKALINE PHOSPHATASE 89 U/L (38-126); ANION GAP 10 (5-19); BILIRUBIN,DIRECT 0.4 mg/dL (0.0-0.4); BILIRUBIN,TOTAL 0.5 mg/dL (0.2-1.3); BLOOD UREA NITROGEN 65 mg/dL (7-20); CALCIUM 8.9 mg/dL (8.4-10.2); CARBON DIOXIDE 16 mmol/L (22-30); CHLORIDE 113 mmol/L (98-107); CREATININE RESULT 5.17 mg/dL (0.52-1.25); GLUCOSE 86 mg/dL (75-110); POTASSIUM 4.9 mmol/L (3.6-5.0); SODIUM 138.6 mmol/L (137-145); TOTAL PROTEIN 6.3 g/dL (6.3-8.2)
[2017-03-14 16:03] LABS: ASPARTATE AMINO TRANSFERASE 14 U/L (17-59)
[2017-03-14 16:47] LABS: CHLAM PCR NOT DETECTED (NOT DETECT)
[2017-03-16 21:07] LABS: ABSOLUTE CD 4 HELPER 777 /uL (359-1519); CD BASOPHILS 1 % (.); CD EOSINOPHILS 5 % (.); CD MONOCYTES 8 % (.); CD NEUTROPHILS 41 % (.); HEMATOCRIT . 34.8 % (37.5-51.0); HEMOGLOBIN 11.3 g/dL (12.6-17.7); IMMATURE GRANULOCYTES 0 % (.); LYMPHS(ABSOLUTE) 2.6 x10E3/uL (0.7-3.1); MCH 30.4 pg (26.6-33.0); MCHC 32.5 g/dL (31.5-35.7); MCV 94 fL (79-97); NEUTROPHILS(ABSOLUTE) 2.4 x10E3/uL (1.4-7.0); PLATELETS 183 x10E3/uL (150-379); RBC 3.72 x10E6/uL (4.14-5.80); RDW 14.2 % (12.3-15.4); WBC 5.8 x10E3/uL (3.4-10.8)
[2017-03-17 11:49] LABS: HIV-1 RNA PCR QUANT <20 copies/mL (.)
== END ==
LOC: OD 14:23
PROVIDERS: ATTEND Nurse Practitioner
DX: B20 Human immunodeficiency virus [HIV] disease (principal); Z11.3 Encounter for screening for infections with a predominantly sexual mode of transmission; Z79.899 Other long term (current) drug therapy
CPT/HCPCS: 36415; 80053; 81001; 85025; 86360; 86592; 87491; 87536; 87591

== ENCOUNTER 2017-03-29 04:15 | Inpatient (IN) | payer MEDICAID ==
[2017-03-29] MEDS ORDERED: ALBUTEROL SULFATE 0.083% NEB 2.5 MG/3 ML AMPUL NEB ONE (04:25)
[2017-03-29] MEDS ORDERED: ASPIRIN 81 MG TABLET, CHEWABLE PO ONE (04:28)
[2017-03-29] MEDS ORDERED: MAGNESIUM SULFATE/D5W 1 GM/100 ML RTUPB IV ONE (04:29)
[2017-03-29] MEDS ORDERED: NITROGLYCERIN/D5W 50 MG/250 ML RTUINJ IV PRN (04:29)
[2017-03-29] MEDS ORDERED: NITROGLYCERIN/D5W 50 MG/250 ML RTUINJ IV ONE (04:31)
[2017-03-29 04:37] LABS: ABSOLUTE BASOPHILS # (AUTO) 0.1 10^3/uL (0.0-0.2); ABSOLUTE EOSINOPHILS # (AUTO) 0.4 10^3/uL (0.0-0.6); ABSOLUTE LYMPHOCYTES (AUTO) 5.4 10^3/uL (0.5-4.7); ABSOLUTE MONOCYTES (AUTO) 0.8 10^3/uL (0.1-1.4); ABSOLUTE NEUT (AUTO) 4.1 10^3/uL (1.7-8.2); BASOPHILS % (AUTO) 0.6 % (0-2); EOSINOPHILS % (AUTO) 3.6 % (0-6); HEMATOCRIT 37.3 % (37.9-51.0); HGB HCT DIFFERENCE -1.3; LYMPHOCYTES % (AUTO) 50.7 % (13-45); MEAN CORPUSCULAR HEMOGLOBIN 31.1 pg (27.0-33.4); MEAN CORPUSCULAR HGB CONC 32.3 g/dL (32.0-36.0); MEAN CORPUSCULAR VOLUME 96 fl (80-97); MONOCYTES % (AUTO) 7.3 % (3-13); RED BLOOD COUNT 3.86 10^6/uL (4.35-5.55); RED CELL DISTRIBUTION WIDTH 13.8 % (11.5-14.0); SEGMENTED NEUTROPHILS % (AUTO) 37.8 % (42-78); WHITE BLOOD COUNT 10.7 10^3/uL (4.0-10.5)
--- NOTE | 2017-03-29 04:38 | ER Document Report ---
ED Respiratory Problem - General Stated Complaint: CHEST PAIN Time Seen by Provider: 03/29/17 04:37 Notes: Patient is a 61-year-old male that comes by EMS for chief complaint of difficulty breathing. He states he woke up at about 130 and felt like he could not breathe and he has just gotten worse. He denies fever. Past medical history of hypertension, OR, chronic kidney disease. He is not on dialysis. He also has a history of DVT with secondary BKA. He is supposed to be on Lovenox. He smokes daily. He denies any history of drug abuse. TRAVEL OUTSIDE OF THE [place] IN LAST 30 DAYS: No - Related Data Allergies/Adverse Reactions: No Known Allergies Allergy (Verified 02/27/16 15:21) Past Medical History - General Information source: Patient - Social History Smoking Status: Current Every Day Smoker Smoking Education Provided: Yes - <3 min Frequency of alcohol use: None Drug Abuse: Other - denies, but hx of cocaine Lives with: Alone Family History: CAD, CVA, DM, Hyperlipidemia, Hypertension, Malignancy - Past Medical History Cardiac Medical History: Reports: Hx DVT, Hx Heart Attack, Hx Hypercholesterolemia, Hx Hypertension, Hx Peripheral Vascular Disease, Hx Pulmonary Embolism Pulmonary Medical History: Reports: Hx Bronchitis, Hx Pneumonia Denies: Hx Asthma, Hx COPD Neurological Medical History: Denies: Hx Seizures Endocrine Medical History: Reports: Hx Diabetes Mellitus Type 2 Renal/ Medical History: Reports: Hx Renal Insufficiency. Denies: Hx Peritoneal Dialysis GI Medical History: Reports: Hx Gastroesophageal Reflux Disease Musculoskeltal Medical History: Denies Hx Arthritis, 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, Reports Hx Musculoskeletal Trauma Psychiatric Medical History: Infectious Medical History: Reports: Hx HIV Past Surgical History: Reports: Hx Orthopedic Surgery - bilateral amputation, R BKA, L AKA, Hx Vascular Surgery - stents right chest, left arm clot removed, IVC filter, Other - Endoscopy - Immunizations Immunizations up to date: Yes Hx Diphtheria, Pertussis, Tetanus Vaccination: Yes Hx Pneumococcal Vaccination: 07/21/10 Review of Systems - Review of Systems Constitutional: No symptoms reported EENT: No symptoms reported Cardiovascular: See HPI Respiratory: See HPI Gastrointestinal: No symptoms reported Genitourinary: No symptoms reported Male Genitourinary: No symptoms reported Musculoskeletal: No symptoms reported Skin: No symptoms reported Hematologic/Lymphatic: No symptoms reported Neurological/Psychological: No symptoms reported Physical Exam - Vital signs Vitals: Pulse Ox 93 03/29/17 04:21 Interpretation: Normal - General General appearance: Alert, Anxious In distress: Severe - Patient tachypneic, diaphoretic, appears to be in respiratory distress - HEENT Head: Normocephalic, Atraumatic Eyes: Normal Conjunctiva: Normal Extraocular movements intact: Yes Eyelashes: Normal Pupils: PERRL Nasal: Normal Mouth/Lips: Normal Mucous membranes: Normal Pharynx: Normal Neck: Normal - Respiratory Respiratory status: Respiratory distress, Labored, Tachypnea Breath sounds: Decreased air movement, Rales - Loud rales throughout all lung fisher Chest palpation: Normal - Cardiovascular Rhythm: Regular, Tachycardia Heart sounds: Normal auscultation, S1 appreciated, S2 appreciated Murmur: No - Abdominal Inspection: Normal Distension: No distension Bowel sounds: Normal Tenderness: Nontender. No: Tender, Guarding Organomegaly: No organomegaly - Back Back: Normal, Nontender. No: Tender - Extremities General lower extremity: Other - Bilateral BKA's - Neurological Neuro grossly intact: Yes Cognition: Normal Orientation: AAOx4 Star Coma Scale Eye Opening: Spontaneous Star Coma Scale Verbal: Oriented [place] Coma Scale Motor: Obeys Commands Star Coma Scale Total: 15 Speech: Normal Motor strength normal: LUE, RUE, LLE, RLE Sensory: Normal - Psychological Associated symptoms: Normal affect, Normal mood - Skin Skin Temperature: Warm Skin Moisture: Dry Skin Color: Normal Course - Re-evaluation Re-evalutation: On initial presentation patient in respiratory distress, diaphoretic, extremely hypertensive, lung auscultation consistent with rales and some scattered rhonchi. Patient immediately placed on BiPAP. Dr. Nunez to bedside, evaluated patient. Patient placed on nitroglycerin drip. He has also been given 324 mg of aspirin. He has Conor been given 1 sublingual nitroglycerin. Oxygen saturation 100%, patient mildly tachycardic. Workup pending. Will monitor closely. 03/29/17 04:41 Medical history shows history of HIV and cocaine abuse. Patient did deny this. Patient reevaluated at bedside, he is improving, breathing is less labored, he is no longer diaphoretic, he appears slightly more relaxed. He is still very hypertensive. Increased nitroglycerin drip to 100 mcg/min. Chest x-ray showing pulmonary vascular congestion. Mild leukocytosis. No fever. No reported fever. Chemistry shows chronic kidney disease without significant change from prior. BNP is of course elevated. Troponin is elevated at 0.21, similar to prior, suspect this is from flash pulmonary edema and probably cocaine abuse despite patient denying this. Potassium slightly elevated at 5.4, no peaked T waves. Discussed with Dr. Nunez recommends completing pending workup and discuss with hospitalist for admission. 03/29/17 05:37 Blood pressure improved. Given Lasix as well. Lowering nitroglycerin drip. Patient continues to look more comfortable. - Vital Signs Vital signs: Temp Pulse Resp BP Pulse Ox 14 149/90 H 99 03/29/17 07:00 03/29/17 06:56 03/29/17 07:00 - Laboratory Result Diagrams: 03/29/17 04:27 03/29/17 04:27 Laboratory results interpreted by me: 03/29/17 03/29/17 03/29/17 04:27 04:27 04:27 WBC 10.7 H RBC 3.86 L Hgb 12.0 L Hct 37.3 L Seg Neutrophils % 37.8 L Lymphocytes % 50.7 H Absolute Lymphocytes 5.4 H VBG pH VBG HCO3 Potassium 5.4 H Chloride 114 H Carbon Dioxide 18 L BUN 50 H Creatinine 5.01 H Est GFR ( Amer) 14 L Est GFR (Non-Af Amer) 12 L Glucose 133 H AST 172 H ALT 164 H NT-Pro-B Natriuret Pep 35812 H 03/29/17 05:30 WBC RBC Hgb Hct Seg Neutrophils % Lymphocytes % Absolute Lymphocytes VBG pH 7.18 L* VBG HCO3 17.3 L Potassium Chloride Carbon Dioxide BUN Creatinine Est GFR ( Amer) Est GFR (Non-Af Amer) Glucose AST ALT NT-Pro-B Natriuret Pep Critical Care Note - Critical Care Note Total time excluding time spent on procedures (mins): 40 - flash pulmonary edema , respiratory distress Comments: Please allow 40 minutes of critical care time for care of patient with flash pulmonary edema, respiratory distress. Treatments and intervention including nitroglycerin drip with multiple adjustments, Lasix, BiPAP therapy. Multiple re -evaluations. Review of previous records. Consultation and admission to the hospital. Discharge - Discharge Clinical Impression: Flash pulmonary edema, Respiratory distress, Cocaine abuse, Shortness of breath Condition: Stable Disposition: ADMITTED INPATIENT Admitting Provider: Hospitalist Unit Admitted: [facility]
[2017-03-29 04:45] LABS: PROTHROMBIN TIME 13.4 SEC (11.4-15.4)
[2017-03-29 04:52] LABS: ALANINE AMINOTRANSFERASE 164 U/L (21-72); ALKALINE PHOSPHATASE 112 U/L (38-126); ANION GAP 13 (5-19); ASPARTATE AMINO TRANSFERASE 172 U/L (17-59); BILIRUBIN,DIRECT 0.3 mg/dL (0.0-0.4); BILIRUBIN,TOTAL 0.3 mg/dL (0.2-1.3); BLOOD UREA NITROGEN 50 mg/dL (7-20); CALCIUM 9.1 mg/dL (8.4-10.2); CARBON DIOXIDE 18 mmol/L (22-30); CHLORIDE 114 mmol/L (98-107); CREATINE KINASE 78 U/L (55-170); CREATININE RESULT 5.01 mg/dL (0.52-1.25); GLUCOSE 133 mg/dL (75-110); POTASSIUM 5.4 mmol/L (3.6-5.0); SODIUM 144.7 mmol/L (137-145); TOTAL PROTEIN 6.6 g/dL (6.3-8.2)
[2017-03-29 05:04] LABS: CREATINE KINASE MB 1.62 ng/mL (<4.55)
[2017-03-29 05:06] LABS: TROPONIN I 0.217 ng/mL
--- NOTE | 2017-03-29 05:07 | RADIOLOGY REPORT (SQ) ---
EXAM DESCRIPTION: CHEST SINGLE VIEW COMPLETED DATE/TIME: 03/29/2017 4:55 am REASON FOR STUDY: shortness of breath COMPARISON: Chest x-ray 10/07/2016. CT angiogram chest 07/21/2016. EXAM PARAMETERS: NUMBER OF VIEWS: One view. TECHNIQUE: Single frontal radiographic view of the chest acquired. RADIATION DOSE: NA LIMITATIONS: None. FINDINGS: LUNGS AND PLEURA: Hyperlucent lungs, suggestive of emphysema. No consolidation, pleural e ffusion or pneumothorax. MEDIASTINUM AND HILAR STRUCTURES: No masses. Contour normal. HEART AND VASCULAR STRUCTURES: The heart is mildly enlarged. There is mild central vascular congesti on. BONES: Degenerative changes in the spine. HARDWARE: None in the chest. IMPRESSION: Mild cardiomegaly and central vascular congestion. Emphysema. TECHNICAL DOCUMENTATION: JOB ID: [id number]
[2017-03-29] MEDS ORDERED: FUROSEMIDE INJ/PF 40 MG/4 ML SDV IV ONE (05:20)
[2017-03-29 05:42] LABS: VENOUS BLOOD BASE EXCESS -10.7 mmol/L; VENOUS BLOOD HCO3 17.3 mmol/L (20-32)
[2017-03-29 05:48] LABS: VENOUS BLOOD PH 7.18 (7.30-7.42)
[2017-03-29 07:01] LABS: URINE BARBITURATES SCREEN NEGATIVE; URINE METHADONE SCREEN NEGATIVE; URINE OPIATES LOW NEGATIVE; URINE PHENCYCLIDINE SCREEN NEGATIVE
[2017-03-29] MEDS ORDERED: BECLOMETHASONE DIPROPIONATE IH PRN (08:16)
[2017-03-29] MEDS ORDERED: AMLODIPINE BESYLATE 10 MG TABLET PO ONE (08:18)
[2017-03-29] MEDS ORDERED: EMTRICITABINE/TENOFOVIR 200-300 MG TABLET PO SCH (08:30)
[2017-03-29] MEDS ORDERED: ONDANSETRON HCL INJ/PF 4 MG/2 ML SDV IV PRN (08:37)
--- NOTE | 2017-03-29 09:12 | PDOC H&P ---
History of Present Illness Admission Date/PCP: 03/29/17 07:57 Patient complains of: Shortness of breath History of Present Illness: KRISTY CANTU is a 61 year old male, with history of cardiomyopathy, HIV, hypertension, substance abuse with cocaine apparently ran out of medicines for the past few days started developing acute shortness of breath and chest congestion and discomfort last night. There is cough with clear phlegm. There is no chills nor fever. No sinus congestion or pressure. The patient went to the emergency room for evaluation. Systolic blood pressure was greater than 200 and diastolic blood pressure greater than 100, chest x-ray revealed pulmonary vascular congestion, intravenous Lasix was given. She was placed on BiPAP. Nitroglycerin drip was likewise started. The patient was then referred for admission. Patient currently feels better. He denies having any chest pressure but reports congestion. There is no nausea or vomiting nor abdominal pain. He is a bilateral amputee. Past Medical History Cardiac Medical History: Reports: DVT, Myocardial Infarction, Hyperlipidema, Hypertension, Peripheral Vascular Disease, Pulmonary Embolism Pulmonary Medical History: Reports: Bronchitis, Pneumonia Denies: Asthma, Chronic Obstructive Pulmonary Disease (COPD) Neurological Medical History: Denies: Seizures Endocrine Medical History: Reports: Diabetes Mellitus Type 1, Diabetes Mellitus Type 2 Renal/ Medical History: Reports: Chronic Kidney Disease GI Medical History: Reports: Gastroesophageal Reflux Disease Musculoskeltal Medical History: Denies: Arthritis Psychiatric Medical History: Hematology: Denies: Anemia Infectious Medical History: Reports: HIV Past Surgical History Past Surgical History: Reports: Orthopedic Surgery - bilateral amputation, R BKA , L AKA, Vascular Surgery - stents right chest, left arm clot removed, IVC filter, Other - Endoscopy Social History Information Source: Patient Lives with: Alone Smoking Status: Current Every Day Smoker Frequency of Alcohol Use: Social Hx Recreational Drug Use: Yes Drugs: Cocaine Hx Prescription Drug Abuse: No - Advance Directive Resuscitation Status: Full Code Family History Family History: CAD, CVA, DM, Hyperlipidemia, Hypertension, Malignancy Parental Family History Reviewed: Yes Children Family History Reviewed: Yes Sibling(s) Family History Reviewed.: Yes Medication/Allergy Allergies/Adverse Reactions: No Known Allergies Allergy (Verified 02/27/16 15:21) Review of Systems Constitutional: PRESENT: headache(s) - After started on nitroglycerin drip. ABSENT: chills, fever(s), weight gain, weight loss Eyes: ABSENT: visual disturbances Ears: ABSENT: hearing changes Nose, Mouth, and Throat: PRESENT: mouth pain, sore throat Cardiovascular: PRESENT: chest pain, dyspnea on exertion - Chronic. ABSENT: edema, orthropnea, palpitations Respiratory: PRESENT: cough, sputum - Clear. ABSENT: hemoptysis Gastrointestinal: ABSENT: abdominal pain, bloating, constipation, diarrhea, hematemesis, hematochezia, melena, nausea, vomiting Genitourinary: ABSENT: dysuria, hematuria Musculoskeletal: PRESENT: other - Right below-knee amputation left above-knee amputation. ABSENT: joint swelling Integumentary: ABSENT: rash, wounds Neurological: ABSENT: abnormal gait, abnormal speech, confusion, dizziness, focal weakness, syncope Psychiatric: ABSENT: anxiety, depression, homidical ideation, suicidal ideation Endocrine: ABSENT: cold intolerance, heat intolerance, polydipsia, polyuria Hematologic/Lymphatic: ABSENT: easy bleeding, easy bruising Physical Exam Vital Signs: Temp Pulse Resp BP Pulse Ox 14 161/91 H 99 03/29/17 08:36 03/29/17 08:36 03/29/17 08:36 General appearance: PRESENT: no acute distress, cooperative, other - On BiPAP Head exam: PRESENT: atraumatic, normocephalic Eye exam: PRESENT: conjunctiva pale, EOMI, PERRLA. ABSENT: scleral icterus Ear exam: PRESENT: normal external ear exam Mouth exam: PRESENT: moist, neck supple, tongue midline Throat exam: ABSENT: post pharyngeal erythema, tonsillar erythema Neck exam: ABSENT: carotid bruit, JVD, lymphadenopathy, thyromegaly Respiratory exam: PRESENT: clear to auscultation ramila, rales - Lower lung fisher posteriorly bilateral. ABSENT: rhonchi, wheezes Cardiovascular exam: PRESENT: RRR, +S1, +S2. ABSENT: diastolic murmur, rubs, systolic murmur Pulses: PRESENT: normal dorsalis pedis pul Vascular exam: PRESENT: normal capillary refill GI/Abdominal exam: PRESENT: normal bowel sounds, soft. ABSENT: distended, guarding, mass, organolmegaly, rebound, tenderness Rectal exam: PRESENT: deferred Extremities exam: PRESENT: full ROM. ABSENT: clubbing Neurological exam: PRESENT: alert, awake, oriented to person, oriented to place , oriented to time, oriented to situation Psychiatric exam: PRESENT: appropriate affect, normal mood. ABSENT: homicidal ideation, suicidal ideation Skin exam: PRESENT: dry, intact, warm. ABSENT: cyanosis, rash Results Impressions: Chest X-Ray 03/29/17 04:28 IMPRESSION: Mild cardiomegaly and central vascular congestion. Emphysema. Assessment & Plan - Diagnosis (1) Acute respiratory failure with hypoxia Is this a current diagnosis for this admission?: Yes (2) Flash pulmonary edema Is this a current diagnosis for this admission?: Yes (3) Hypertensive urgency Is this a current diagnosis for this admission?: Yes (4) Abnormal cardiac enzyme level Is this a current diagnosis for this admission?: Yes (5) Hyperkalemia Is this a current diagnosis for this admission?: Yes (6) Alcohol abuse Is this a current diagnosis for this admission?: Yes (7) Cocaine abuse Is this a current diagnosis for this admission?: Yes (8) Chronic kidney disease, stage IV (severe) Is this a current diagnosis for this admission?: Yes (9) HIV (human immunodeficiency virus infection) Is this a current diagnosis for this admission?: Yes (10) Hyperlipidemia Qualifiers: Hyperlipidemia type: unspecified Qualified Code(s): E78.5 - Hyperlipidemia , unspecified Is this a current diagnosis for this admission?: Yes (11) Secondary hyperparathyroidism (of renal origin) Is this a current diagnosis for this admission?: Yes (12) Transaminitis Is this a current diagnosis for this admission?: Yes - Time Time Spent: 50 to 70 Minutes Within: within 72 hours - Inpatient Certification Based on my medical assessment, after consideration of the patient's comorbidities, presenting symptoms, or acuity I expect that the services needed warrant INPATIENT care.: Yes I certify that my determination is in accordance with my understanding of Medicare's requirements for reasonable and necessary INPATIENT services [42 CFR 412.3e].: Yes Medical Necessity: Significant Comorbidiites Make Outpatient Treatment Too Risky , Need Close Monitoring Due to Risk of Patient Decompensation, Risk of Complication if Not Cared For in Hospital, Risk of Diagnosis Which Will Require Inpatient Eval/Care/Monitoring Post Hospital Care: D/C Pegger Dobby Looms Documentation - Plan Summary Plan Summary: The patient will be admitted to [facility]. We will wean nitroglycerin drip to off. We will begin metoprolol as well as resume the Norvasc. We will serially monitor cardiac enzymes and consult cardiology opinion regarding the mild elevation. This would be related to uncontrolled blood pressure as well as worsening kidney function. In the meantime I will put the patient on intravenous diuretics. Respiratory to titrate BiPAP per protocol. DVT prophylaxis with heparin will be placed. We will recheck potassium. I will resume the patient's HIV medications. Further testing depends on the initial evaluation and per cardiology recommendation as outlined above. Patient had a known low ejection fraction.
[2017-03-29] MEDS ORDERED: RITONAVIR PO SCH (10:00)
[2017-03-29] MEDS ORDERED: METOPROLOL TARTRATE 25 MG TABLET PO SCH (10:00)
[2017-03-29] MEDS ORDERED: ASPIRIN 81 MG TABLET, ENT COATED PO SCH (10:00)
[2017-03-29] MEDS ORDERED: LOPINAVIR PO SCH (10:00)
[2017-03-29 10:31] LABS: CREATINE KINASE MB 2.14 ng/mL (<4.55)
--- NOTE | 2017-03-29 10:41 | PDOC CONSULTATION ---
Consultation Consult Date: 03/29/17 Attending physician:: ALBERT DOMINIQUE Consult reason:: CHF History of Present Illness Admission Date/PCP: 03/29/17 08:37 Patient complains of: Shortness of breath History of Present Illness: KRISTY CANTU is a 61 year old male, with history of cardiomyopathy, HIV, hypertension, substance abuse with cocaine apparently ran out of medicines for the past few days started developing acute shortness of breath and chest congestion and discomfort last night. There is cough with clear phlegm. There is no chills nor fever. No sinus congestion or pressure. The patient went to the emergency room for evaluation. Systolic blood pressure was greater than 200 and diastolic blood pressure greater than 100, chest x-ray revealed pulmonary vascular congestion, intravenous Lasix was given. She was placed on BiPAP. Nitroglycerin drip was likewise started. The patient was then referred for admission. Patient currently feels better. He denies having any chest pressure but reports congestion. There is no nausea or vomiting nor abdominal pain. He is a bilateral amputee. Patient does give history of sleep apnea syndrome but claims that he lost significant amount of weight and no longer has sleep apnea. Patient did used to see me in the office but claims that he has not seen me recently. Patient currently denying any chest pain. His blood pressure is still high needing nitroglycerin drip. Past Medical History Cardiac Medical History: Reports: DVT, Myocardial Infarction, Hyperlipidema, Hypertension, Peripheral Vascular Disease, Pulmonary Embolism Pulmonary Medical History: Reports: Bronchitis, Pneumonia Denies: Asthma, Chronic Obstructive Pulmonary Disease (COPD) Neurological Medical History: Denies: Seizures Endocrine Medical History: Reports: Diabetes Mellitus Type 1, Diabetes Mellitus Type 2 Renal/ Medical History: Reports: Chronic Kidney Disease GI Medical History: Reports: Gastroesophageal Reflux Disease Musculoskeltal Medical History: Denies: Arthritis Psychiatric Medical History: Hematology: Denies: Anemia Infectious Medical History: Reports: HIV Past Surgical History Past Surgical History: Reports: Orthopedic Surgery - bilateral amputation, R BKA , L AKA, Vascular Surgery - stents right chest, left arm clot removed, IVC filter, Other - Endoscopy Social History Information Source: Patient Lives with: Alone Smoking Status: Current Every Day Smoker Cigarettes Packs Per Day: 1 Number of Years Smokin Last Time Smoked: 03/28/17 Frequency of Alcohol Use: None Hx Recreational Drug Use: Yes Drugs: Cocaine Hx Prescription Drug Abuse: No - Advance Directive Resuscitation Status: Full Code Surrogate healthcare decision maker:: Does not want to identify a surrogate decision maker. Family History Family History: CAD, CVA, DM, Hyperlipidemia, Hypertension, Malignancy Parental Family History Reviewed: Yes Children Family History Reviewed: Yes Sibling(s) Family History Reviewed.: Yes Medication/Allergy Allergies/Adverse Reactions: No Known Allergies Allergy (Verified 02/27/16 15:21) Review of Systems Review of Systems: Please see history of present illness and past medical history as wall. Constitutional: No fever or chills reported. Head : No recent chronic headaches, recent head injury. Currently complaining of headaches Eyes: No recent eye pain, diplopia, redness, discharge, acute visual changes. Ears: No recent chronic ear pain, acute hearing loss, ear discharge. Oral cavity: No recent ulcerations, bleeding, oral cavity discomfort. Neck: No recent acute neck pain reported. Hematologic: No recent easy bruising or bleeding or hematologic malignancy reported. History of blood clot formation very easily. Lymphatic: No recent lymphatic malignancy, chronic lymphadenopathy reported yet Cardiovascular system review: See history of present illness. Respiratory system review: No recent chronic cough, hemoptysis, positive history of blood clots in the lungs reported. Mild Shortness of breath on exertion Gastrointestinal system review: Negative for any recent acute or chronic abdominal pain, hematemesis, melena, recent change in bowel habits. Genitourinary system review: No recent acute or chronic hematuria, flank pain, UTI etc. reported. Skin system review: Negative for any recent abnormal bruising, no rash, no pruritus reported. Neurologic: No prior history of strokes, mini strokes, seizure disorder. Psychologic: No history of major psychosis or major depression reported. Musculoskeletal: Minor aches and pains reported. No acute joint swelling reported. Bilateral amputation of lower extremity. Endocrine: No recent polyuria, polydipsia, recent heat or cold intolerance. Physical Exam Vital Signs: Temp Pulse Resp BP Pulse Ox 76 14 161/91 H 99 03/29/17 09:43 03/29/17 08:36 03/29/17 08:36 03/29/17 08:36 Intake & Output 03/28/17 03/29/17 03/30/17 06:59 06:59 06:59 Weight 70.6 kg Exam: GENERAL: well-nourished and in no acute distress. Alert and oriented x3 HEAD: Atraumatic, normocephalic. EYES: Pupils equal round and reactive to light, extraocular movements intact, sclera anicteric, conjunctiva are normal. ENT: TMs normal, nares patent, oropharynx clear without exudates. Moist mucous membranes. No oral ulcerations or bleeding gums noted NECK: supple without lymphadenopathy. Trachea is central. No cervical or axillary lymphadenopathy noted. Carotids are 2+, JVD 8-10 cm LUNGS: Respiration seems nonlabored, no significant accessory muscle action noted. Bibasilar fine crackles noted. No dullness noted. CHEST: Palpation of the chest wall shows no significant chest wall tenderness. No other significant abnormalities noted. HEART: [place] [employer], No PSH, 1/6 SUJIT aortic area, 1/6 rodriguez systolic murmur mitral area, no rubs, no gallops. ABDOMEN: Soft, no significant tenderness appreciated, normoactive bowel sounds. No guarding, no rebound. No rigidity noted . No masses appreciated. EXTREMITIES: Above-knee amputation on the left and below knee amputation on the right. NEUROLOGICAL: Focused neurological exam showed no significant neurologic deficit. Normal speech, no focal weakness appreciated. PSYCH: Normal mood, normal affect. Judgment and insight within normal limits. SKIN: No significant ecchymosis, rash, ulcerations or signs of pruritus noted. MUSCULOSKELETAL EXAM: No significant joint swelling noted. Results Impressions: Chest X-Ray 03/29/17 04:28 IMPRESSION: Mild cardiomegaly and central vascular congestion. Emphysema. Assessment & Plan - Diagnosis (1) Abnormal cardiac enzyme level Is this a current diagnosis for this admission?: Yes (2) Acute on chronic combined systolic and diastolic congestive heart failure Is this a current diagnosis for this admission?: Yes (3) Hypertensive urgency Is this a current diagnosis for this admission?: Yes (4) Sleep disorder breathing Is this a current diagnosis for this admission?: Yes (5) Tobacco abuse Is this a current diagnosis for this admission?: Yes (6) Chronic kidney disease (CKD) Qualifiers: Chronic kidney disease stage: stage 5, not on chronic dialysis Qualified Code(s): N18.5 - Chronic kidney disease, stage 5 Is this a current diagnosis for this admission?: Yes - Notes Notes: Hypertensive urgency: Most likely precipitated by running out of medications. Have switched patient to carvedilol from metoprolol tartrate. Have also patient started patient on BiDil therapy. Patient would be a good candidate for entresto but currently have very advanced renal function abnormalities. Continue IV Lasix. Congestive heart failure: Acute on chronic combined systolic and diastolic heart failure. Continue with IV Lasix and good control of blood pressure. Chronic kidney disease: Currently probably stage V. Recommend renal consultation. Sleep disordered breathing: Patient used to have this diagnosis but claims that he no longer has it but may need to be restudied. Tobacco abuse: Patient advised to quit smoking. Hypercoagulable disorder: Patient has seen glove finisher oncologist Dr. Gonzales before. It may be worthwhile to consult him again in view of significant renal dysfunction. I believe he previously used to be on Lovenox therapy. Abnormal troponin I elevation: most likely related to severe hypertension. Patient to report any recurrence of chest pain. An EKG was not available for review, will be ordered. Patient may benefit from ischemia evaluation once CHF and blood pressure under good control. - Time Time Spent: 30 to 50 Minutes - CODE STATUS was discussed, patient remains full code. Surrogate decision-maker unchanged. Multiple medical problems were addressed. More than 50% of the time spent coordinating care, discussing management plans with involved caregivers. Management plans discussed with involved personnels. Medical decision making was of moderate to high complexity , patient's has multiple comorbidities. Medications reviewed and adjusted accordingly: Yes
[2017-03-29 10:44] LABS: TROPONIN I 0.213 ng/mL
[2017-03-29] MEDS: AMLODIPINE BESYLATE 10 MG TABLET PO SCH (11:10)
[2017-03-29] MEDS: CALCITRIOL 0.25 MCG CAPSULE PO SCH (11:11)
[2017-03-29] MEDS: ASPIRIN 81 MG TABLET, ENT COATED PO SCH (11:11)
[2017-03-29] MEDS: CLOPIDOGREL BISULFATE 75 MG TABLET PO SCH (11:12)
[2017-03-29] MEDS: CALCIUM ACETATE 667 MG CAPSULE PO SCH (11:12)
[2017-03-29] MEDS: CARVEDILOL 12.5 MG TABLET PO SCH ×2 (11:13→22:41)
[2017-03-29] MEDS: FUROSEMIDE INJ/PF 40 MG/4 ML SDV IV SCH ×2 (11:13→21:36)
[2017-03-29] MEDS: DOCUSATE SODIUM 100 MG CAPSULE PO SCH (11:20)
[2017-03-29] MEDS: ISOSORB DINIT/HYDRALAZINE HCL 20-37.5 MG TABLET PO SCH ×3 (12:36→19:35)
[2017-03-29] MEDS: LOPINAVIR/RITONAVIR 200-50 MG TABLET PO SCH ×2 (12:36→22:41)
[2017-03-29] MEDS: ACETAMINOPHEN 325 MG TABLET PO PRN ×2 (12:36→17:17)
[2017-03-29] MEDS: HEPARIN SOD (PORCINE) 5,000 UNIT/ML 1 ML SYRINGE SUBCUT SCH ×2 (15:01→21:36)
[2017-03-29 16:34] LABS: CREATINE KINASE MB 2.12 ng/mL (<4.55); TROPONIN I 0.217 ng/mL
[2017-03-29 17:18] LABS: APPEARANCE,URINE CLEAR; BILIRUBIN,URINE NEGATIVE (NEGATIVE); GLUCOSE, URINE NEGATIVE (NEGATIVE); KETONES,URINE NEGATIVE (NEGATIVE); LEUKOCYTE ESTERASE,URINE NEGATIVE (NEGATIVE); NITRITE,URINE NEGATIVE (NEGATIVE); PROTEIN,URINE 30 mg/dL (NEGATIVE); URINE SPECIFIC GRAVITY 1.005; UROBILINOGEN,URINE NEGATIVE mg/dL (<2.0)
[2017-03-29] MEDS ORDERED: MORPHINE SULFATE 10 MG/ML INJ IV ONE (21:00)
[2017-03-29 22:02] LABS: CREATINE KINASE MB 1.84 ng/mL (<4.55); TROPONIN I 0.221 ng/mL
[2017-03-30] MEDS: LANSOPRAZOLE 30 MG TAB.RAP.DR PO SCH (05:22)
[2017-03-30] MEDS: HEPARIN SOD (PORCINE) 5,000 UNIT/ML 1 ML SYRINGE SUBCUT SCH ×3 (05:22→22:32)
[2017-03-30 06:33] LABS: BLOOD UREA NITROGEN 55 mg/dL (7-20); CALCIUM 8.3 mg/dL (8.4-10.2); CHLORIDE 108 mmol/L (98-107); CREATININE RESULT 5.26 mg/dL (0.52-1.25); GLUCOSE 85 mg/dL (75-110); POTASSIUM 4.6 mmol/L (3.6-5.0)
[2017-03-30 06:34] LABS: ALANINE AMINOTRANSFERASE 96 U/L (21-72); ALBUMIN 3.5 g/dL (3.5-5.0); ALKALINE PHOSPHATASE 91 U/L (38-126); ANION GAP 12 (5-19); ASPARTATE AMINO TRANSFERASE 49 U/L (17-59); BILIRUBIN,DIRECT 0.4 mg/dL (0.0-0.4); BILIRUBIN,TOTAL 0.4 mg/dL (0.2-1.3); CARBON DIOXIDE 19 mmol/L (22-30); TOTAL PROTEIN 5.9 g/dL (6.3-8.2)
--- NOTE | 2017-03-30 08:08 | EKG REPORT ---
SEVERITY:- ABNORMAL ECG - SINUS RHYTHM ATRIAL PREMATURE COMPLEX LEFT AXIS DEVIATION LEFT VENTRICULAR HYPERTROPHY : Confirmed by: Marco Young MD 30-Mar-2017 08:07:59
[2017-03-30] MEDS: ASPIRIN 81 MG TABLET, ENT COATED PO SCH (10:36)
[2017-03-30] MEDS: CALCIUM ACETATE 667 MG CAPSULE PO SCH (10:36)
[2017-03-30] MEDS: CALCITRIOL 0.25 MCG CAPSULE PO SCH (10:36)
[2017-03-30] MEDS: CLOPIDOGREL BISULFATE 75 MG TABLET PO SCH (10:37)
[2017-03-30] MEDS: CARVEDILOL 12.5 MG TABLET PO SCH ×2 (10:37→22:32)
[2017-03-30] MEDS: AMLODIPINE BESYLATE 10 MG TABLET PO SCH (10:38)
[2017-03-30] MEDS: FUROSEMIDE INJ/PF 40 MG/4 ML SDV IV SCH (10:38)
[2017-03-30] MEDS: LOPINAVIR/RITONAVIR 200-50 MG TABLET PO SCH ×2 (10:39→22:32)
[2017-03-30] MEDS: DOCUSATE SODIUM 100 MG CAPSULE PO SCH (10:51)
--- NOTE | 2017-03-30 11:34 | PDOC PROGRESS REPORT ---
Subjective Progress Note for:: 03/30/17 Subjective:: Shortness of breath is much better. Denies any PND orthopnea. No chest pain, nausea or vomiting, abdominal pain chills nor fever. Patient started to have a headache however. He is off the nitroglycerin drip. Physical Exam Vital Signs: Temp Pulse Resp BP Pulse Ox 98.0 F 62 18 137/70 H 100 03/30/17 07:46 03/30/17 07:46 03/30/17 07:46 03/30/17 07:46 03/30/17 07:46 Intake & Output 03/29/17 03/30/17 03/31/17 06:59 06:59 06:59 Intake Total 3746 Output Total 3525 Balance 221 Weight 67.4 kg General appearance: PRESENT: no acute distress, cooperative Head exam: PRESENT: normocephalic Eye exam: PRESENT: EOMI Mouth exam: PRESENT: moist, neck supple Neck exam: ABSENT: JVD Respiratory exam: PRESENT: clear to auscultation ramila - Anteriorly bilateral, rales - Posteriorly on the lower lung fisher Cardiovascular exam: PRESENT: RRR. ABSENT: gallop GI/Abdominal exam: PRESENT: soft. ABSENT: distended, tenderness Extremities exam: PRESENT: other - Below-knee amputation on the right above- knee amputation on the left Neurological exam: PRESENT: alert, awake, oriented to situation Skin exam: PRESENT: dry, warm. ABSENT: cyanosis Results Laboratory Results: 03/30/17 05:30 03/29/17 03/29/17 03/30/17 12:30 17:00 05:30 Sodium 139.0 Potassium 4.2 D 4.6 Chloride 108 H Carbon Dioxide 19 L Anion Gap 12 BUN 55 H Creatinine 5.26 H Est GFR ( Amer) 13 L Est GFR (Non-Af Amer) 11 L Glucose 85 Calcium 8.3 L Total Bilirubin 0.4 AST 49 ALT 96 H Alkaline Phosphatase 91 Total Protein 5.9 L Albumin 3.5 Urine Color STRAW Urine Appearance CLEAR Urine pH 6.0 Ur Specific [place] 1.005 Urine Protein 30 H Urine Glucose (UA) NEGATIVE Urine Ketones NEGATIVE Urine Blood NEGATIVE Urine Nitrite NEGATIVE Ur Leukocyte Esterase NEGATIVE Urine WBC (Auto) 1 Urine RBC (Auto) 0 03/29/17 03/29/17 03/29/17 09:44 09:44 15:45 Creatine Kinase 82 83 CK-MB (CK-2) 2.14 Troponin I 0.213 NT-Pro-B Natriuret Pep 03/29/17 03/29/17 03/29/17 15:45 21:30 21:30 Creatine Kinase 91 CK-MB (CK-2) 2.12 1.84 Troponin I 0.217 0.221 NT-Pro-B Natriuret Pep 03/30/17 03/30/17 05:30 05:30 Creatine Kinase CK-MB (CK-2) Troponin I 0.199 NT-Pro-B Natriuret Pep 56285 H Impressions: Chest X-Ray 03/29/17 04:28 IMPRESSION: Mild cardiomegaly and central vascular congestion. Emphysema. Assessment & Plan - Diagnosis (1) Acute respiratory failure with hypoxia Is this a current diagnosis for this admission?: Yes (2) Flash pulmonary edema Is this a current diagnosis for this admission?: Yes (3) Hypertensive urgency Is this a current diagnosis for this admission?: Yes (4) Abnormal cardiac enzyme level Is this a current diagnosis for this admission?: Yes (5) Hyperkalemia Is this a current diagnosis for this admission?: Yes (6) Alcohol abuse Is this a current diagnosis for this admission?: Yes (7) Cocaine abuse Is this a current diagnosis for this admission?: Yes (8) Chronic kidney disease, stage IV (severe) Is this a current diagnosis for this admission?: Yes (9) HIV (human immunodeficiency virus infection) Is this a current diagnosis for this admission?: Yes (10) Hyperlipidemia Qualifiers: Hyperlipidemia type: unspecified Qualified Code(s): E78.5 - Hyperlipidemia , unspecified Is this a current diagnosis for this admission?: Yes (11) Secondary hyperparathyroidism (of renal origin) Is this a current diagnosis for this admission?: Yes (12) Transaminitis Is this a current diagnosis for this admission?: Yes - Time Time Spent with patient: 25-34 minutes - Plan Summary Plan Summary: We will decrease diuretics. As needed Percocet for headache. Continue cardiac medications. We will monitor creatinine and electrolytes. Continue supportive care.
[2017-03-30] MEDS: ISOSORB DINIT/HYDRALAZINE HCL 20-37.5 MG TABLET PO SCH ×3 (12:09→19:32)
[2017-03-30] MEDS: OXYCODONE-ACETAMINOPHEN 5-325 MG TABLET PO PRN ×2 (14:24→22:35)
[2017-03-31] MEDS: LANSOPRAZOLE 30 MG TAB.RAP.DR PO SCH (05:34)
[2017-03-31] MEDS: HEPARIN SOD (PORCINE) 5,000 UNIT/ML 1 ML SYRINGE SUBCUT SCH ×3 (05:35→21:09)
[2017-03-31 06:58] LABS: ANION GAP 15 (5-19); BLOOD UREA NITROGEN 67 mg/dL (7-20); CALCIUM 8.6 mg/dL (8.4-10.2); CARBON DIOXIDE 18 mmol/L (22-30); CHLORIDE 106 mmol/L (98-107); GLUCOSE 82 mg/dL (75-110); POTASSIUM 4.8 mmol/L (3.6-5.0); SODIUM 138.6 mmol/L (137-145)
[2017-03-31] MEDS: AMLODIPINE BESYLATE 10 MG TABLET PO SCH (09:08)
[2017-03-31] MEDS: CLOPIDOGREL BISULFATE 75 MG TABLET PO SCH (09:09)
[2017-03-31] MEDS: ASPIRIN 81 MG TABLET, ENT COATED PO SCH (09:09)
[2017-03-31] MEDS: CALCITRIOL 0.25 MCG CAPSULE PO SCH (09:09)
[2017-03-31] MEDS: CALCIUM ACETATE 667 MG CAPSULE PO SCH (09:09)
[2017-03-31] MEDS: ISOSORB DINIT/HYDRALAZINE HCL 20-37.5 MG TABLET PO SCH ×3 (09:09→18:30)
[2017-03-31] MEDS: DOCUSATE SODIUM 100 MG CAPSULE PO SCH ×2 (09:18→18:26)
[2017-03-31] MEDS ORDERED: FUROSEMIDE INJ/PF 40 MG/4 ML SDV IV SCH (10:00)
[2017-03-31] MEDS: CARVEDILOL 12.5 MG TABLET PO SCH ×2 (12:03→22:07)
[2017-03-31] MEDS: OXYCODONE-ACETAMINOPHEN 5-325 MG TABLET PO PRN ×2 (12:04→21:09)
[2017-03-31] MEDS: LOPINAVIR/RITONAVIR 200-50 MG TABLET PO SCH ×2 (12:04→22:07)
[2017-03-31] MEDS ORDERED: ACETAMINOPHEN 325 MG TABLET PO PRN (13:28)
[2017-03-31] MEDS ORDERED: ONDANSETRON HCL INJ/PF 4 MG/2 ML SDV IV PRN (13:30)
--- NOTE | 2017-03-31 16:07 | PDOC PROGRESS REPORT ---
Subjective Progress Note for:: 03/31/17 Subjective:: Still having some mild headache otherwise shortness of breath significantly improved. There is no wheezing. No PND orthopnea. There is no nausea vomiting or chest pain. Patient is off the BiPAP. Still w/ mild headache. Physical Exam Vital Signs: Temp Pulse Resp BP Pulse Ox 97.7 F 74 16 136/75 H 96 03/31/17 15:55 03/31/17 15:55 03/31/17 15:55 03/31/17 15:55 03/31/17 15:55 Intake & Output 03/30/17 03/31/17 04/01/17 06:59 06:59 06:59 Intake Total 3746 2497 573 Output Total 5881 2586 850 Balance 221 -079 -007 Weight 67.4 kg 67.4 kg General appearance: PRESENT: no acute distress, cooperative Head exam: PRESENT: normocephalic Eye exam: PRESENT: EOMI Mouth exam: PRESENT: moist, neck supple Neck exam: ABSENT: JVD Respiratory exam: PRESENT: clear to auscultation ramila - Anteriorly bilateral. ABSENT: rhonchi, wheezes Cardiovascular exam: PRESENT: RRR. ABSENT: gallop GI/Abdominal exam: PRESENT: normal bowel sounds, soft Extremities exam: PRESENT: other - Below knee amputation on the right above- knee amputation on the left Neurological exam: PRESENT: alert, awake, oriented to situation Skin exam: PRESENT: dry, warm. ABSENT: cyanosis Results Laboratory Results: 03/31/17 05:44 03/31/17 05:44 Sodium 138.6 Potassium 4.8 Chloride 106 Carbon Dioxide 18 L Anion Gap 15 BUN 67 H Creatinine 5.30 H Est GFR ( Amer) 13 L Est GFR (Non-Af Amer) 11 L Glucose 82 Calcium 8.6 03/29/17 03/29/17 03/29/17 09:44 09:44 15:45 Creatine Kinase 82 83 CK-MB (CK-2) 2.14 Troponin I 0.213 NT-Pro-B Natriuret Pep 03/29/17 03/29/17 03/29/17 15:45 21:30 21:30 Creatine Kinase 91 CK-MB (CK-2) 2.12 1.84 Troponin I 0.217 0.221 NT-Pro-B Natriuret Pep 03/30/17 03/30/17 05:30 05:30 Creatine Kinase CK-MB (CK-2) Troponin I 0.199 NT-Pro-B Natriuret Pep [id number] H Impressions: Chest X-Ray 03/29/17 04:28 IMPRESSION: Mild cardiomegaly and central vascular congestion. Emphysema. Assessment & Plan - Diagnosis (1) Acute respiratory failure with hypoxia Is this a current diagnosis for this admission?: Yes (2) Flash pulmonary edema Is this a current diagnosis for this admission?: Yes (3) Hypertensive urgency Is this a current diagnosis for this admission?: Yes (4) Abnormal cardiac enzyme level Is this a current diagnosis for this admission?: Yes (5) Hyperkalemia Is this a current diagnosis for this admission?: Yes (6) Alcohol abuse Is this a current diagnosis for this admission?: Yes (7) Cocaine abuse Is this a current diagnosis for this admission?: Yes (8) Chronic kidney disease, stage IV (severe) Is this a current diagnosis for this admission?: Yes (9) HIV (human immunodeficiency virus infection) Is this a current diagnosis for this admission?: Yes (10) Hyperlipidemia Qualifiers: Hyperlipidemia type: unspecified Qualified Code(s): E78.5 - Hyperlipidemia , unspecified Is this a current diagnosis for this admission?: Yes (11) Secondary hyperparathyroidism (of renal origin) Is this a current diagnosis for this admission?: Yes (12) Transaminitis Is this a current diagnosis for this admission?: Yes - Time Time Spent with patient: 25-34 minutes - Plan Summary Plan Summary: We will increase patient's pain medication for relief. Continue diuretics but shift to oral. Consult nephrology for the increasing creatinine. Had a recent renal ultrasound that was negative other than atrophy. We will continue to follow.
--- NOTE | 2017-03-31 20:52 | PDOC CONSULTATION ---
Consultation Consult Date: 03/31/17 Attending physician:: ALBERT BECERRIL Consult reason:: I was asked by Dr. Becerril to see this patient because of worsening kidney failure. History of Present Illness Admission Date/PCP: 03/29/17 08:37 History of Present Illness: The patient is a 61-year-old -[place] gentleman known to me with history of chronic kidney disease baseline stage IV secondary to hypertensive nephrosclerosis associated with bilateral atrophic kidney and nonnephrotic range proteinuria, hypertension, anemia of chronic kidney disease, chronic congestive heart failure, and renal osteodystrophy he was admitted on Friday, March 29 for acute onset of shortness of breath. Patient apparently ran out of his medications a day prior to presentation and his blood pressure shot up to 200/100 100. So on presentation he was diagnosed with acute respiratory failure with flash pulmonary edema likely secondary to hypertensive emergency. He also has mild hyperkalemia with potassium of 5.4. In terms of his kidney function he came in with a BUN of 50 creatinine of 5.01 estimated GFR 14 and today he has a BUN of 67 creatinine of 5.3 with estimated GFR of 13. When I saw him in the clinic last November he had a BUN of 30 creatinine of 3.98 with estimated GFR of 19. Patient was treated with intravenous Lasix 40 mg once a day which is now switched to oral. He was also initially on BiPAP and now has improved to the point that he is no longer on any oxygen supplement. Cardiology was also consulted who made some changes in his medications starting him on BiDil and carvedilol. Patient also has known HIV and is taking antiretrovirals. Currently the patient said that he just feels tired and have some little bit of a headache but denies any more chest pains no shortness of breath off oxygen therapy. He has a little bit of nausea but no vomiting. He claims he has good urine output and denies any swelling on his bilateral stumps. His blood pressure is currently well controlled on current regimen. His potassium is also within acceptable normal limits. His bicarbonate has been borderline low between 18-19. Patient supposed to be on oral sodium bicarbonate but is not being given at this point. He does not have any other complaints otherwise. Past Medical History Cardiac Medical History: Reports: CHF-Diastolic, DVT, Hyperlipidemia, Myocardial Infarction, Peripheral Vascular Disease, Pulmonary Embolism Pulmonary Medical History: Reports: Bronchitis, Chronic Obstructive Pulmonary Disease (COPD), Pneumonia Renal/ Medical History: Reports: Chronic Kidney Disease Stage IV, Hyperphosphatemia, Metabolic Acidosis, Secondary Hyperparathyroidism GI Medical History: Reports: Gastroesophageal Reflux Disease Musculoskeltal Medical History: Reports: Arthritis Psychiatric Medical History: Infectious Medical History: Reports: HIV Hematology Medical History: Reports Anemia of Chronic Kidney Disease Past Surgical History Past Surgical History: Reports: Orthopedic Surgery - bilateral amputation, R BKA , L AKA, Vascular Surgery - stents right chest, left arm clot removed, IVC filter, Other - Endoscopy Social History Information Source: Patient Lives with: Alone Smoking Status: Current Every Day Smoker Cigarettes Packs Per Day: 1 Number of Years Smokin Last Time Smoked: 03/28/17 Frequency of Alcohol Use: None Hx Recreational Drug Use: Yes Drugs: Cocaine Hx Prescription Drug Abuse: No - Advance Directive Resuscitation Status: Full Code Family History Family History: CAD - Father, Chronic Kidney Disease - Brother had ESRD and was , DM - Brother and grandmother, Malignancy - Mother and brother Parental Family History Reviewed: Yes Children Family History Reviewed: Unknown Sibling(s) Family History Reviewed.: Yes Medication/Allergy Home Medications: Albuterol Sulfate [Proair Hfa] 1 puff IH DAILY 03/29/17 Beclomethasone Dipropionate [Qvar] 80 mcg IH Q12 03/29/17 Cholecalciferol (Vitamin D3) [Vitamin D3 2000 unit Tablet] 2,000 unit PO DAILY 03/29/17 Emtricitabine/Tenofovir [Truvada 200 mg-300 mg Tablet] 1 tab PO Q2D 03/29/17 Hydralazine HCl 100 mg PO Q12 03/29/17 Lisinopril [Prinivil 5 mg Tablet] 5 mg PO Q12 03/29/17 Lopinavir/Ritonavir [Kaletra 200-50 mg Tablet] 2 tab PO Q12 03/29/17 Nitroglycerin [Nitrostat] 0.4 mg SL PRN PRN 03/29/17 Pravastatin Sodium [Pravachol] 40 mg PO DAILY 03/29/17 Allergies/Adverse Reactions: No Known Allergies Allergy (Verified 02/27/16 15:21) Review of Systems All systems: reviewed and no additional remarkable complaints except as stated Review of Systems: Constitutional: ABSENT: chills, fever(s), weight gain, weight loss; admits feeling tired Eyes: ABSENT: visual disturbances Ears: ABSENT: hearing changes Cardiovascular: ABSENT: chest pain, dyspnea on exertion, edema, orthropnea, palpitations Respiratory: ABSENT: cough, dyspnea, hemoptysis Gastrointestinal: ABSENT: abdominal pain, constipation, diarrhea, hematemesis, hematochezia, vomiting; admits nausea Genitourinary: ABSENT: dysuria, hematuria Musculoskeletal: ABSENT: joint swelling Integumentary: ABSENT: rash, wounds Neurological: ABSENT: abnormal gait, abnormal speech, confusion, dizziness, focal weakness, numbness, syncope; admits some headache Psychiatric: ABSENT: anxiety, depression Endocrine: ABSENT: cold intolerance, heat intolerance, polydipsia, polyuria Hematologic/Lymphatic: ABSENT: easy bleeding, easy bruising, lymphadenopathy Physical Exam Vital Signs: Temp Pulse Resp BP Pulse Ox 97.4 F 73 16 125/59 L 95 03/31/17 19:43 03/31/17 19:43 03/31/17 19:43 03/31/17 19:43 03/31/17 19:43 Intake & Output 03/30/17 03/31/17 04/01/17 06:59 06:59 06:59 Intake Total 3746 2497 938 Output Total 3525 3026 2150 Balance 221 -129 1212 Weight 67.4 kg 67.4 kg Exam: General appearance: no acute distress, cooperative, well-developed, well- nourished Head exam: PRESENT: atraumatic, normocephalic Eye exam: PRESENT: Conjunctiva [place], EOMI, PERRLA. ABSENT: conjunctival injection, scleral icterus Mouth exam: PRESENT: moist, neck supple, tongue midline Neck exam: PRESENT: full ROM. ABSENT: carotid bruit, JVD, lymphadenopathy, thyromegaly Respiratory exam: PRESENT: Diminished to auscultation bilaterally. ABSENT: rales, rhonchi, stridor, wheezes Cardiovascular exam: PRESENT: RRR, +S1, +S2. ABSENT: systolic murmur Pulses: PRESENT: normal radial pulses, normal dorsalis pedis pulses GI/Abdominal exam: PRESENT: normal bowel sounds, soft. ABSENT: guarding, mass, tenderness Rectal exam: deferred Extremities exam: PRESENT: full ROM. ABSENT: calf tenderness, pedal edema Musculoskeletal: PRESENT: Right AKA and left BKA Neurological exam: PRESENT: alert, Awake, Oriented to person, Oriented to place , Oriented to time, reflexes normal, CN II-XII grossly intact. ABSENT: motor sensory deficit Psychiatric exam: PRESENT: appropriate affect, normal mood. ABSENT: homicidal ideation, suicidal ideation Skin exam: PRESENT: intact, dry, warm. ABSENT: rash Results Laboratory Results: 03/31/17 05:44 03/31/17 05:44 Sodium 138.6 Potassium 4.8 Chloride 106 Carbon Dioxide 18 L Anion Gap 15 BUN 67 H Creatinine 5.30 H Est GFR ( Amer) 13 L Est GFR (Non-Af Amer) 11 L Glucose 82 Calcium 8.6 03/29/17 03/29/17 03/29/17 09:44 09:44 15:45 Creatine Kinase 82 83 CK-MB (CK-2) 2.14 Troponin I 0.213 NT-Pro-B Natriuret Pep 03/29/17 03/29/17 03/29/17 15:45 21:30 21:30 Creatine Kinase 91 CK-MB (CK-2) 2.12 1.84 Troponin I 0.217 0.221 NT-Pro-B Natriuret Pep 03/30/17 03/30/17 05:30 05:30 Creatine Kinase CK-MB (CK-2) Troponin I 0.199 NT-Pro-B Natriuret Pep [id number] H Impressions: Chest X-Ray 03/29/17 04:28 IMPRESSION: Mild cardiomegaly and central vascular congestion. Emphysema. Assessment & Plan - Diagnosis (1) Chronic kidney disease, stage V (very severe) Is this a current diagnosis for this admission?: Yes Plan: This is due to progressive deterioration of his baseline hypertensive nephrosclerosis associated with nonnephrotic range proteinuria and bilateral atrophic kidneys. The patient's kidney function seems to be deteriorating for the last couple months. This contributes to elevated blood pressure, and episode of flash pulmonary edema. Currently the patient seems to be fairly stable although his chronic kidney disease is stage V level. He does not need any urgent initiation of renal replacement therapy however he will soon need to be started on it. If his kidney function continues to deteriorate in the next few days he will need to be started on hemodialysis while here in the hospital. However if he remains to be stable at the same level and everything else is the same and he remains to be nonuremic that we might have time to prepare him with a vascular access by placing an AV fistula very very soon. I talked to the patient about this. Patient is agreeable to start on renal replacement therapy as deemed necessary. I talked to him about placing an AV fistula very soon or placing a PermCath if we need to initiate hemodialysis while here in the hospital. We will monitor the patient's kidney function in the next few days and decide accordingly. (2) Metabolic acidosis Is this a current diagnosis for this admission?: Yes Plan: Restart sodium bicarbonate 650 mg p.o. twice daily. (3) Anemia in chronic kidney disease (CKD) Qualifiers: Chronic kidney disease stage: stage 5, not on chronic dialysis Qualified Code(s): N18.5 - Chronic kidney disease, stage 5; D63.1 - Anemia in chronic kidney disease Is this a current diagnosis for this admission?: Yes (4) Hypertension Is this a current diagnosis for this admission?: Yes Plan: Currently improved and well controlled on current regimen. (5) Secondary hyperparathyroidism (of renal origin) Is this a current diagnosis for this admission?: Yes Plan: Continue calcitriol and PhosLo. Will check phosphorus and PTH levels. (6) Chronic diastolic (congestive) heart failure Is this a current diagnosis for this admission?: Yes Plan: Continue diuretics. (7) HIV (human immunodeficiency virus infection) Is this a current diagnosis for this admission?: Yes - Notes Notes: Thank you very much for allowing me to participate in the care of this patient. I will follow the patient with you. - Time Time Spent: Greater than 70 Minutes
[2017-03-31] MEDS: SODIUM BICARBONATE 650 MG TABLET PO SCH (21:42)
[2017-04-01] MEDS: HEPARIN SOD (PORCINE) 5,000 UNIT/ML 1 ML SYRINGE SUBCUT SCH ×3 (05:22→22:38)
[2017-04-01] MEDS: LANSOPRAZOLE 30 MG TAB.RAP.DR PO SCH (05:22)
[2017-04-01 07:34] LABS: ANION GAP 14 (5-19); BLOOD UREA NITROGEN 70 mg/dL (7-20); CARBON DIOXIDE 19 mmol/L (22-30); CHLORIDE 105 mmol/L (98-107); CREATININE RESULT 5.14 mg/dL (0.52-1.25); GLUCOSE 79 mg/dL (75-110); PHOSPHORUS 4.6 mg/dL (2.5-4.5); POTASSIUM 4.4 mmol/L (3.6-5.0)
[2017-04-01] MEDS: AMLODIPINE BESYLATE 10 MG TABLET PO SCH (10:17)
[2017-04-01] MEDS: CARVEDILOL 12.5 MG TABLET PO SCH ×2 (10:18→22:37)
[2017-04-01] MEDS: SODIUM BICARBONATE 650 MG TABLET PO SCH ×2 (10:18→22:38)
[2017-04-01] MEDS: DOCUSATE SODIUM 100 MG CAPSULE PO SCH (10:19)
[2017-04-01] MEDS: CLOPIDOGREL BISULFATE 75 MG TABLET PO SCH (10:20)
[2017-04-01] MEDS: FUROSEMIDE 40 MG TABLET PO SCH (10:20)
[2017-04-01] MEDS: CALCIUM ACETATE 667 MG CAPSULE PO SCH (10:20)
[2017-04-01] MEDS: ISOSORB DINIT/HYDRALAZINE HCL 20-37.5 MG TABLET PO SCH ×3 (10:20→17:32)
[2017-04-01] MEDS: ASPIRIN 81 MG TABLET, ENT COATED PO SCH (10:20)
[2017-04-01] MEDS: LOPINAVIR/RITONAVIR 200-50 MG TABLET PO SCH ×2 (10:21→22:37)
[2017-04-01] MEDS: CALCITRIOL 0.25 MCG CAPSULE PO SCH (10:26)
[2017-04-01] MEDS: OXYCODONE-ACETAMINOPHEN 5-325 MG TABLET PO PRN ×2 (14:09→22:40)
--- NOTE | 2017-04-01 15:19 | PDOC PROGRESS REPORT ---
Subjective Progress Note for:: 04/01/17 Subjective:: Denies any complaints Physical Exam Vital Signs: Temp Pulse Resp BP Pulse Ox 98.2 F 67 18 133/63 H 93 04/01/17 11:28 04/01/17 14:00 04/01/17 11:28 04/01/17 11:28 04/01/17 11:28 Intake & Output 03/31/17 04/01/17 04/02/17 06:59 06:59 06:59 Intake Total 2497 1223 711 Output Total 3026 3100 800 Balance -529 -1877 -89 Weight 67.4 kg 67.7 kg General appearance: PRESENT: no acute distress Eye exam: PRESENT: conjunctiva pink. ABSENT: scleral icterus Mouth exam: PRESENT: moist, tongue midline Neck exam: ABSENT: JVD Respiratory exam: PRESENT: clear to auscultation ramila. ABSENT: rales, rhonchi, wheezes Cardiovascular exam: PRESENT: RRR. ABSENT: diastolic murmur, rubs, systolic murmur GI/Abdominal exam: PRESENT: normal bowel sounds, soft. ABSENT: distended, guarding, mass, organolmegaly, rebound, tenderness Extremities exam: PRESENT: other - Bilateral amputee. ABSENT: calf tenderness, clubbing, pedal edema Neurological exam: PRESENT: alert, awake, oriented to person, oriented to place , oriented to time, oriented to situation, CN II-XII grossly intact. ABSENT: motor sensory deficit Psychiatric exam: PRESENT: appropriate affect Skin exam: PRESENT: dry, intact, warm. ABSENT: cyanosis, rash Results Laboratory Results: 04/01/17 06:10 04/01/17 06:10 Sodium 138.0 Potassium 4.4 Chloride 105 Carbon Dioxide 19 L Anion Gap 14 BUN 70 H Creatinine 5.14 H Est GFR ( Amer) 14 L Est GFR (Non-Af Amer) 11 L Glucose 79 Calcium 9.0 Phosphorus 4.6 H 03/29/17 03/29/17 03/29/17 09:44 09:44 15:45 Creatine Kinase 82 83 CK-MB (CK-2) 2.14 Troponin I 0.213 NT-Pro-B Natriuret Pep 03/29/17 03/29/17 03/29/17 15:45 21:30 21:30 Creatine Kinase 91 CK-MB (CK-2) 2.12 1.84 Troponin I 0.217 0.221 NT-Pro-B Natriuret Pep 03/30/17 03/30/17 05:30 05:30 Creatine Kinase CK-MB (CK-2) Troponin I 0.199 NT-Pro-B Natriuret Pep [id number] H Impressions: Chest X-Ray 03/29/17 04:28 IMPRESSION: Mild cardiomegaly and central vascular congestion. Emphysema. Assessment & Plan - Diagnosis (1) Acute respiratory failure with hypoxia Is this a current diagnosis for this admission?: Yes Plan: Patient most likely had flash pulmonary edema from hypertensive urgency. This has resolved. (2) Flash pulmonary edema Is this a current diagnosis for this admission?: Yes Plan: This was secondary to hypertensive urgency. His blood pressure is doing better and his pulmonary edema has improved. (3) Hypertensive urgency Is this a current diagnosis for this admission?: Yes Plan: Blood pressures are improved. (4) Anemia in chronic kidney disease (CKD) Qualifiers: Chronic kidney disease stage: stage 5, not on chronic dialysis Qualified Code(s): N18.5 - Chronic kidney disease, stage 5; D63.1 - Anemia in chronic kidney disease Is this a current diagnosis for this admission?: Yes (5) Chronic diastolic (congestive) heart failure Is this a current diagnosis for this admission?: Yes (6) Chronic kidney disease, stage V (very severe) Is this a current diagnosis for this admission?: Yes Plan: The patient is being followed by nephrology. His creatinine has remained stable. (7) Hyperkalemia Is this a current diagnosis for this admission?: Yes Plan: Resolved (8) HIV (human immunodeficiency virus infection) Is this a current diagnosis for this admission?: Yes (9) Hyperlipidemia Qualifiers: Hyperlipidemia type: unspecified Qualified Code(s): E78.5 - Hyperlipidemia , unspecified Is this a current diagnosis for this admission?: Yes (10) Tobacco abuse Is this a current diagnosis for this admission?: Yes Plan: He is encouraged to quit - Time Time Spent with patient: 25-34 minutes - Inpatient Certification Medical Necessity: Need Close Monitoring Due to Risk of Patient Decompensation
--- NOTE | 2017-04-01 16:54 | PDOC PROGRESS REPORT ---
Subjective Progress Note for:: 04/01/17 Subjective:: Patient is doing well. Except for the headache he does not really have any other complaints including chest pains or shortness of breath. He denies any nausea or vomiting. Physical Exam Vital Signs: Temp Pulse Resp BP Pulse Ox 98.3 F 71 18 138/65 H 94 04/01/17 15:16 04/01/17 15:16 04/01/17 15:16 04/01/17 15:16 04/01/17 15:16 Intake & Output 03/31/17 04/01/17 04/02/17 06:59 06:59 06:59 Intake Total 2497 1223 711 Output Total 3026 3100 800 Balance -529 -1877 -89 Weight 67.4 kg 67.7 kg Exam: General appearance: PRESENT: no acute distress, cooperative, well-developed, well-nourished Head exam: PRESENT: atraumatic, normocephalic Eye exam: PRESENT: conjunctiva pink, PERRLA. ABSENT: scleral icterus Neck exam: ABSENT: JVD Respiratory exam: PRESENT: Diminished breath sounds. ABSENT: crackles, rales, rhonchi, unlabored, wheezes Cardiovascular exam: PRESENT: Regular rate rhythm -+S1, +S2. ABSENT: diastolic murmur, systolic murmur GI/Abdominal exam: PRESENT: normal bowel sounds, soft. ABSENT: guarding, mass, tenderness Extremities exam: ABSENT: No edema Neurological exam: PRESENT: alert, awake, oriented to person, place and time. Skin exam: PRESENT: dry, warm, Results Laboratory Results: 04/01/17 06:10 04/01/17 06:10 Sodium 138.0 Potassium 4.4 Chloride 105 Carbon Dioxide 19 L Anion Gap 14 BUN 70 H Creatinine 5.14 H Est GFR ( Amer) 14 L Est GFR (Non-Af Amer) 11 L Glucose 79 Calcium 9.0 Phosphorus 4.6 H 03/29/17 03/29/17 03/29/17 09:44 09:44 15:45 Creatine Kinase 82 83 CK-MB (CK-2) 2.14 Troponin I 0.213 NT-Pro-B Natriuret Pep 03/29/17 03/29/17 03/29/17 15:45 21:30 21:30 Creatine Kinase 91 CK-MB (CK-2) 2.12 1.84 Troponin I 0.217 0.221 NT-Pro-B Natriuret Pep 03/30/17 03/30/17 05:30 05:30 Creatine Kinase CK-MB (CK-2) Troponin I 0.199 NT-Pro-B Natriuret Pep 27244 H Impressions: Chest X-Ray 03/29/17 04:28 IMPRESSION: Mild cardiomegaly and central vascular congestion. Emphysema. Assessment & Plan - Diagnosis (1) Chronic kidney disease, stage V (very severe) Is this a current diagnosis for this admission?: Yes Plan: This is due to progressive deterioration of his baseline hypertensive nephrosclerosis associated with nonnephrotic range proteinuria and bilateral atrophic kidneys. The patient's kidney function seems to be deteriorating for the last couple months. This contributes to elevated blood pressure, and episode of flash pulmonary edema. Currently the patient seems to be fairly stable although his chronic kidney disease is stage V level. He does not need any urgent initiation of renal replacement therapy however he will soon need to be started on it. If his kidney function continues to deteriorate in the next few days he will need to be started on hemodialysis while here in the hospital. However if he remains to be stable at the same level and everything else is the same and he remains to be nonuremic that we might have time to prepare him with a vascular access by placing an AV fistula very very soon. I talked to the patient about this. Patient is agreeable to start on renal replacement therapy as deemed necessary. I talked to him about placing an AV fistula very soon or placing a PermCath if we need to initiate hemodialysis while here in the hospital. We will monitor the patient's kidney function in the next few days and decide accordingly. Today the patient is clinically stable and the patient's kidney function is also stable. I think we have time to place AV fistula as an outpatient. From nephrology standpoint I think he can be discharged home to follow with me in the clinic in the next 1-2 weeks so we can arrange AV fistula placement. We will follow him closely as an outpatient. Emphasized to the patient importance of follow-up in the clinic. I discussed this recommendation with Dr. Su today. (2) Metabolic acidosis Is this a current diagnosis for this admission?: Yes Plan: Restart sodium bicarbonate 650 mg p.o. twice daily. (3) Anemia in chronic kidney disease (CKD) Qualifiers: Chronic kidney disease stage: stage 5, not on chronic dialysis Qualified Code(s): N18.5 - Chronic kidney disease, stage 5; D63.1 - Anemia in chronic kidney disease Is this a current diagnosis for this admission?: Yes (4) Hypertension Is this a current diagnosis for this admission?: Yes Plan: Currently improved and well controlled on current regimen. (5) Secondary hyperparathyroidism (of renal origin) Is this a current diagnosis for this admission?: Yes Plan: Continue calcitriol and PhosLo. Will check phosphorus and PTH levels. (6) Chronic diastolic (congestive) heart failure Is this a current diagnosis for this admission?: Yes Plan: Continue diuretics. (7) HIV (human immunodeficiency virus infection) Is this a current diagnosis for this admission?: Yes - Time Time with patient: 15-25 minutes
[2017-04-02] MEDS: HEPARIN SOD (PORCINE) 5,000 UNIT/ML 1 ML SYRINGE SUBCUT SCH (05:27)
[2017-04-02] MEDS: LANSOPRAZOLE 30 MG TAB.RAP.DR PO SCH (05:27)
[2017-04-02 05:57] LABS: ABSOLUTE BASOPHILS # (AUTO) 0.1 10^3/uL (0.0-0.2); ABSOLUTE EOSINOPHILS # (AUTO) 0.6 10^3/uL (0.0-0.6); ABSOLUTE LYMPHOCYTES (AUTO) 2.7 10^3/uL (0.5-4.7); ABSOLUTE MONOCYTES (AUTO) 0.8 10^3/uL (0.1-1.4); BASOPHILS % (AUTO) 0.9 % (0-2); EOSINOPHILS % (AUTO) 9.7 % (0-6); HEMATOCRIT 34.7 % (37.9-51.0); HEMOGLOBIN 11.6 g/dL (13.5-17.0); HGB HCT DIFFERENCE 0.1; MEAN CORPUSCULAR HEMOGLOBIN 31.3 pg (27.0-33.4); MEAN CORPUSCULAR HGB CONC 33.3 g/dL (32.0-36.0); MEAN CORPUSCULAR VOLUME 94 fl (80-97); MONOCYTES % (AUTO) 12.9 % (3-13); RED CELL DISTRIBUTION WIDTH 13.3 % (11.5-14.0); SEGMENTED NEUTROPHILS % (AUTO) 32.5 % (42-78); WHITE BLOOD COUNT 6.1 10^3/uL (4.0-10.5)
[2017-04-02 06:09] LABS: ANION GAP 14 (5-19); BLOOD UREA NITROGEN 71 mg/dL (7-20); CALCIUM 9.7 mg/dL (8.4-10.2); CARBON DIOXIDE 20 mmol/L (22-30); CHLORIDE 106 mmol/L (98-107); CREATININE RESULT 5.19 mg/dL (0.52-1.25); GLUCOSE 85 mg/dL (75-110); POTASSIUM 4.7 mmol/L (3.6-5.0); SODIUM 139.5 mmol/L (137-145)
[2017-04-02] MEDS: SODIUM BICARBONATE 650 MG TABLET PO SCH (09:46)
[2017-04-02] MEDS: ISOSORB DINIT/HYDRALAZINE HCL 20-37.5 MG TABLET PO SCH (09:46)
[2017-04-02] MEDS: OXYCODONE-ACETAMINOPHEN 5-325 MG TABLET PO PRN (09:47)
[2017-04-02] MEDS: CALCITRIOL 0.25 MCG CAPSULE PO SCH (09:47)
[2017-04-02] MEDS: CALCIUM ACETATE 667 MG CAPSULE PO SCH (09:47)
[2017-04-02] MEDS: FUROSEMIDE 40 MG TABLET PO SCH (09:48)
[2017-04-02] MEDS: ASPIRIN 81 MG TABLET, ENT COATED PO SCH (09:48)
[2017-04-02] MEDS: AMLODIPINE BESYLATE 10 MG TABLET PO SCH (09:48)
[2017-04-02] MEDS: CLOPIDOGREL BISULFATE 75 MG TABLET PO SCH (09:48)
[2017-04-02 10:07] VITALS: BP 148/86
[2017-04-02] MEDS: LOPINAVIR/RITONAVIR 200-50 MG TABLET PO SCH (10:20)
[2017-04-02] MEDS: CARVEDILOL 12.5 MG TABLET PO SCH (10:21)
--- NOTE | 2017-04-02 12:02 | PDOC DISCHARGE SUMMARY ---
General - Admit/Disc Date/PCP Admission Date/Primary Care Provider: 03/29/17 08:37 Discharge Date: 04/02/17 - Discharge Diagnosis (1) Acute respiratory failure with hypoxia Is this a current diagnosis for this admission?: Yes Summary: [place] to be secondary to acute pulmonary edema secondary to hypertensive emergency. (2) Flash pulmonary edema Is this a current diagnosis for this admission?: Yes Summary: Secondary to hypertensive emergency. (3) Hypertensive urgency Is this a current diagnosis for this admission?: Yes (4) Anemia in chronic kidney disease (CKD) Is this a current diagnosis for this admission?: Yes (5) Chronic diastolic (congestive) heart failure Is this a current diagnosis for this admission?: Yes Summary: Patient had acute on chronic congestive heart failure this hospitalization. (6) Chronic kidney disease, stage V (very severe) Is this a current diagnosis for this admission?: Yes (7) Hyperkalemia Is this a current diagnosis for this admission?: Yes (8) HIV (human immunodeficiency virus infection) Is this a current diagnosis for this admission?: Yes (9) Hyperlipidemia Is this a current diagnosis for this admission?: Yes (10) Tobacco abuse Is this a current diagnosis for this admission?: Yes - Additional Information Resuscitation Status: Full Code Discharge Diet: Cardiac Discharge Activity: Activity As Tolerated, Balance Activity w/Rest, Weigh Daily Home Medications: Albuterol Sulfate [Proair HFA] 1 puff IH DAILY 03/29/17 Beclomethasone Dipropionate [Qvar] 80 mcg IH Q12 03/29/17 Cholecalciferol (Vitamin D3) [Vitamin D3 2000 unit Tablet] 2,000 unit PO DAILY 03/29/17 Emtricitabine/Tenofovir [Truvada 200 mg-300 mg Tablet] 1 tab PO Q2D 03/29/17 Hydralazine HCl 100 mg PO Q12 03/29/17 Lisinopril [Prinivil 5 mg Tablet] 5 mg PO Q12 03/29/17 Lopinavir/Ritonavir [Kaletra 200-50 mg Tablet] 2 tab PO Q12 03/29/17 Nitroglycerin [Nitrostat] 0.4 mg SL PRN PRN 03/29/17 Pravastatin Sodium [Pravachol] 40 mg PO DAILY 03/29/17 Amlodipine Besylate [Norvasc 10 mg Tablet] 10 mg PO DAILY #30 tablet 04/02/17 Aspirin [Ecotrin 81 mg EC Tablet] 81 mg PO DAILY tabec 04/02/17 Calcitriol [Rocaltrol 0.25 mcg Capsule] 0.25 mcg PO DAILY #30 capsule 04/02/17 Calcium Acetate [Phoslo 667 mg Capsule] 667 mg PO DAILY #30 capsule 04/02/17 Carvedilol [Coreg 12.5 mg Tablet] 25 mg PO Q12@1100,2300 #60 tablet 04/02/17 Clopidogrel Bisulfate [Plavix 75 mg Tablet] 75 mg PO DAILY #30 tablet 04/02/17 Furosemide [Lasix 40 mg Tablet] 40 mg PO DAILY #30 tablet 04/02/17 Oxycodone HCl/Acetaminophen [Percocet 5-325 mg Tablet] 1 tab PO Q6HP PRN #10 tablet 04/02/17 Sodium Bicarbonate [Sodium Bicarbonate 650 mg Tablet] 650 mg PO Q12 #60 tablet 04/02/17 History of Present Illness History of Present Illness: KRISTY CANTU is a 61 year old male with history of diastolic congestive heart failure and history of substance abuse who ran out of his medications for the several days prior to admission. The patient developed worsening shortness of breath, chest congestion and orthopnea PND. The patient went to the emergency room and was found to have a systolic blood pressure greater than 200. Patient' s chest x-ray showed pulmonary edema and patient was started on BiPAP and given IV Lasix. [place] the patient has hypertensive urgency causing acute congestive heart failure. Hospital Course Hospital Course: 61-year-old gentleman with history diastolic congestive heart failure as well as chronic renal failure who presented with acute pulmonary edema and acute on chronic diastolic congestive heart failure secondary to hypertensive urgency. The patient had ran out of his medication several days prior to presentation. Patient was restarted on his medications and his blood pressure returned to the normal range. Patient was given IV Lasix also initially. The patient's creatinine was elevated and nephrology was consulted. His creatinine remained stable and was felt that he did not need dialysis at this time. Patient was started on a combination medication of nitrates and hydralazine but he has complained of significant headache and wishes to stop this. This medication was stopped and he was put back on his previous dose of hydralazine. The patient is back at his baseline and his blood pressure is under adequate control. 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 We will discharge the patient back to home and he is instructed to monitor his blood pressure at home. Physical Exam Vital Signs: Temp Pulse Resp BP Pulse Ox 98.5 F 72 20 148/86 H 94 04/02/17 10:02 04/02/17 10:02 04/02/17 10:02 04/02/17 10:02 04/02/17 10:02 Intake & Output 04/01/17 04/02/17 04/03/17 06:59 06:59 06:59 Intake Total 1223 1068 Output Total 3100 2150 Balance -1877 -1082 Weight 67.7 kg 67.5 kg General appearance: PRESENT: no acute distress Eye exam: PRESENT: conjunctiva pink. ABSENT: scleral icterus Mouth exam: PRESENT: moist, tongue midline Neck exam: ABSENT: JVD Respiratory exam: PRESENT: clear to auscultation ramila. ABSENT: rales, rhonchi, wheezes Cardiovascular exam: PRESENT: RRR. ABSENT: diastolic murmur, rubs, systolic murmur GI/Abdominal exam: PRESENT: normal bowel sounds, soft. ABSENT: distended, guarding, mass, organolmegaly, rebound, tenderness Extremities exam: PRESENT: other - Patient is a bilateral amputee.. ABSENT: calf tenderness, clubbing, pedal edema Neurological exam: PRESENT: alert, awake, oriented to person, oriented to place , oriented to time, oriented to situation, CN II-XII grossly intact. ABSENT: motor sensory deficit Psychiatric exam: PRESENT: appropriate affect Skin exam: PRESENT: dry, intact, warm. ABSENT: cyanosis, rash Results Laboratory Results: 04/02/17 05:11 04/02/17 05:11 04/01/17 04/02/17 04/02/17 06:10 05:11 05:11 WBC 6.1 RBC 3.70 L Hgb 11.6 L Hct 34.7 L MCV 94 MCH 31.3 MCHC 33.3 RDW 13.3 Plt Count 203 Seg Neutrophils % 32.5 L Lymphocytes % 44.0 Monocytes % 12.9 Eosinophils % 9.7 H Basophils % 0.9 Absolute Neutrophils 2.0 Absolute Lymphocytes 2.7 Absolute Monocytes 0.8 Absolute Eosinophils 0.6 Absolute Basophils 0.1 Sodium 139.5 Potassium 4.7 Chloride 106 Carbon Dioxide 20 L Anion Gap 14 BUN 71 H Creatinine 5.19 H Est GFR ( Amer) 14 L Est GFR (Non-Af Amer) 11 L Glucose 85 Calcium 9.7 PTH Intact 274 H 03/29/17 03/29/17 03/29/17 09:44 09:44 15:45 Creatine Kinase 82 83 CK-MB (CK-2) 2.14 Troponin I 0.213 NT-Pro-B Natriuret Pep 03/29/17 03/29/17 03/29/17 15:45 21:30 21:30 Creatine Kinase 91 CK-MB (CK-2) 2.12 1.84 Troponin I 0.217 0.221 NT-Pro-B Natriuret Pep 03/30/17 03/30/17 05:30 05:30 Creatine Kinase CK-MB (CK-2) Troponin I 0.199 NT-Pro-B Natriuret Pep 96352 H Impressions: Chest X-Ray 03/29/17 04:28 IMPRESSION: Mild cardiomegaly and central vascular congestion. Emphysema. Qualifiers PATEINT BEING DISCHARGED WITH ANY OF THE FOLLOWING DIAGNOSIS?: Heart Failure HF Pt discharged on evidence-based Beta Johanna:: Yes Plan Discharge Plan: Patient is discharged home in stable condition. Will follow up with Dr. Renteria in the next 2 weeks. Time Spent: Greater than 30 Minutes
== END 2017-04-02 10:36 | disposition home or self-care (01) | DRG 189 ==
LOC: ER 04:15 → UNDOADMIN 07:57 → EH 07:57 → 3S 08:37 → EH 09:06
PROC: 5A09357 Assistance with Respiratory Ventilation, Less than 24 Consecutive Hours, Continuous Positive Airway Pressure (ICD-10-PCS; principal; 2017-03-29)
DX: J96.01 Acute respiratory failure with hypoxia (principal); I13.0 Hypertensive heart and chronic kidney disease with heart failure and stage 1 through stage 4 chronic kidney disease, or unspecified chronic kidney disease; I50.32 Chronic diastolic (congestive) heart failure; N18.4 Chronic kidney disease, stage 4 (severe); D63.1 Anemia in chronic kidney disease; I16.0 Hypertensive urgency; E87.5 Hyperkalemia; Z21 Asymptomatic human immunodeficiency virus [HIV] infection status; K21.9 Gastro-esophageal reflux disease without esophagitis; E78.5 Hyperlipidemia, unspecified; Z79.899 Other long term (current) drug therapy; Z79.02 Long term (current) use of antithrombotics/antiplatelets; Z86.718 Personal history of other venous thrombosis and embolism; I25.2 Old myocardial infarction; Z89.511 Acquired absence of right leg below knee; Z89.612 Acquired absence of left leg above knee; F17.210 Nicotine dependence, cigarettes, uncomplicated
CPT/HCPCS: 36415; 71010; 80048; 80053; 80076; 80307; 81001; 82550; 82553; 82803; 83880; 83970; 84100; 84132; 84443; 84484; 85025; 85610; 87040; 93005; 93010; 94640; 94660; 96374; 99291; J1644; J1940; J2270; J3490

== ENCOUNTER 2017-05-05 15:42 | Emergency (ER) | payer MEDICAID ==
[2017-05-05 16:12] LABS: ABSOLUTE EOSINOPHILS # (AUTO) 0.5 10^3/uL (0.0-0.6); ABSOLUTE LYMPHOCYTES (AUTO) 2.9 10^3/uL (0.5-4.7); ABSOLUTE MONOCYTES (AUTO) 0.6 10^3/uL (0.1-1.4); ABSOLUTE NEUT (AUTO) 3.7 10^3/uL (1.7-8.2); BASOPHILS % (AUTO) 0.2 % (0-2); EOSINOPHILS % (AUTO) 6.4 % (0-6); HEMATOCRIT 36.3 % (37.9-51.0); HEMOGLOBIN 12.1 g/dL (13.5-17.0); LYMPHOCYTES % (AUTO) 37.6 % (13-45); MEAN CORPUSCULAR HEMOGLOBIN 30.1 pg (27.0-33.4); MEAN CORPUSCULAR HGB CONC 33.3 g/dL (32.0-36.0); MEAN CORPUSCULAR VOLUME 90 fl (80-97); MONOCYTES % (AUTO) 8.3 % (3-13); RED BLOOD COUNT 4.02 10^6/uL (4.35-5.55); RED CELL DISTRIBUTION WIDTH 13.1 % (11.5-14.0); SEGMENTED NEUTROPHILS % (AUTO) 47.5 % (42-78); WHITE BLOOD COUNT 7.8 10^3/uL (4.0-10.5)
--- NOTE | 2017-05-05 16:35 | ER Document Report ---
ED Cardiac - General Chief Complaint: Chest Pain Stated Complaint: CHEST PAIN Time Seen by Provider: 05/05/17 15:56 Notes: 61-year-old male presents emergency department complaining of shortness of breath and chest pain. This began last night. He reports pressure and tightness in the middle part of his chest. He reports having had a similar episode before when he had "fluid on the lungs". He confirms a history of congestive heart failure. He also confirms that he has had a heart attack in the past. The patient denies any peripheral edema in his arms. He is a bilateral amputee but denies any changes or swelling in his lower abdomen or stumps. Patient denies any nausea, vomiting, or diaphoresis. TRAVEL OUTSIDE OF THE [place] IN LAST 30 DAYS: No - Related Data Allergies/Adverse Reactions: No Known Allergies Allergy (Verified 05/05/17 16:07) Past Medical History - Social History Smoking Status: Current Every Day Smoker Chew tobacco use (# tins/day): No Frequency of alcohol use: None Drug Abuse: None Family History: CAD, CVA, DM, Hyperlipidemia, Hypertension, Malignancy - Past Medical History Cardiac Medical History: Reports: Hx DVT, Hx Heart Attack, Hx Hypercholesterolemia, Hx Hypertension, Hx Peripheral Vascular Disease, Hx Pulmonary Embolism Pulmonary Medical History: Reports: Hx Bronchitis, Hx COPD, Hx Pneumonia Denies: Hx Asthma Neurological Medical History: Denies: Hx Seizures Endocrine Medical History: Reports: Hx Diabetes Mellitus Type 1, Hx Diabetes Mellitus Type 2 Renal/ Medical History: Reports: Hx Renal Insufficiency. 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, Reports Hx Musculoskeletal Trauma Psychiatric Medical History: Infectious Medical History: Reports: Hx HIV Past Surgical History: Reports: Hx Orthopedic Surgery - bilateral amputation, R BKA, L AKA, Hx Vascular Surgery - stents right chest, left arm clot removed, IVC filter, Other - Endoscopy - Immunizations Immunizations up to date: Yes Hx Diphtheria, Pertussis, Tetanus Vaccination: Yes Hx Pneumococcal Vaccination: 07/21/10 Review of Systems - Review of Systems Notes: REVIEW OF SYSTEMS: CONSTITUTIONAL : Denies fever, chills, or sweats. Denies recent illness. EENT: Denies eye, ear, throat, or mouth pain or symptoms. Denies nasal or sinus congestion or discharge. CARDIOVASCULAR: Positive for chest pain. Denies palpitations or racing or irregular heart beat. RESPIRATORY: Denies cough, cold, or chest congestion. Positive for shortness of breath, see HPI. GASTROINTESTINAL: Denies abdominal pain or distention. Denies nausea, vomiting , or diarrhea. GENITOURINARY: Denies difficulty urinating, painful urination, burning, frequency, blood in urine, or discharge. MUSCULOSKELETAL: Denies back or neck pain or stiffness. Bilateral amputee. Below the knee on the right, above the knee on the left. SKIN: Denies rash, lesions or sores. LYMPHATIC: Denies swollen, enlarged glands. NEUROLOGICAL: Denies confusion or altered mental status. Denies passing out or loss of consciousness. Denies dizziness or lightheadedness. Denies headache. ALL OTHER SYSTEMS REVIEWED AND NEGATIVE. Physical Exam - Vital signs Vitals: Resp 22 H 05/05/17 15:49 - Notes Notes: PHYSICAL EXAMINATION: GENERAL: Health increased work of breathing. HEAD: Atraumatic, normocephalic. ENT: Nares patent, oropharynx clear without exudates. Moist mucous membranes. NECK: Normal range of motion, supple without lymphadenopathy LUNGS: Breath sounds clear to auscultation bilaterally and equal. No wheezes rales or rhonchi. HEART: Regular rate and rhythm without murmurs ABDOMEN: Soft, nontender, nondistended abdomen. No guarding, no rebound. No masses appreciated. Musculoskeletal: BKA on the right. AKA on the left. No deformity or edema noted in arms or elsewhere. NEUROLOGICAL: Cranial nerves grossly intact. Normal speech, normal gait. Normal sensory, motor exams PSYCH: Normal mood, normal affect. SKIN: Warm, Dry, no rashes or lesions noted. Course - Re-evaluation Re-evalutation: 05/05/17 18:28 Patient troponin is slightly elevated at 0.026. He has renal dysfunction. This appears to be slightly better than usual, but is still with a BUN in the 50s and creatinine of 4.5. Chest x-ray does show pulmonary edema. Reevaluation the patient find some with mild dyspnea but overall appearing comfortable. The patient tells me he was not aware of how bad his kidney function was. I have asked for the patient to agree to admission even his comorbidities, including prior myocardial infarction, congestive heart failure, and his noted renal dysfunction. He is agreed to do this. I spoke with the hospitalist service here at [facility]. They are advising it is best to transfer the patient due to lack of nephrology coverage this week and no dialysis. I discussed this with the patient. Will move to transfer him to [place] where he has been seen remotely before. Of note, the patient, who is a bilateral amputee, tells me he did lose his legs due to blood clots. He is supposed to be on Lovenox injections. He reports he discontinued this recently because he was tired of sticking himself with needles. With this additional piece of information, we would need to consider the possibility of pulmonary emboli for this patient. Due to his renal function, we are unable do a CTA. Given the need for transfer anyway, we will wait on definitive testing for pulmonary emboli. I will treat the patient with Lovenox currently. 05/05/17 19:[address] Mays at [facility]. She will accept him in transfer. 05/05/17 19:37 Patient accepted at [facility] pending bed availability. The attending physician who would be the accepting physician is Dr. Slava Malin. I have ordered nitroglycerin paste. I will ask 1 of my colleagues to assume care for the patient while we wait for a bed at [facility] and transportation. - Vital Signs Vital signs: Temp Pulse Resp BP Pulse Ox 98.1 F 77 19 169/94 H 98 05/05/17 16:05 05/05/17 16:05 05/05/17 19:15 05/05/17 16:05 05/05/17 19:15 - Laboratory Result Diagrams: 05/05/17 15:54 05/05/17 15:54 Laboratory results interpreted by me: 05/05/17 05/05/17 05/05/17 15:54 15:54 15:54 RBC 4.02 L Hgb 12.1 L Hct 36.3 L Eosinophils % 6.4 H Sodium 147.4 H Chloride 118 H Carbon Dioxide 15 L BUN 53 H Creatinine 4.58 H Est GFR ( Amer) 16 L Est GFR (Non-Af Amer) 13 L AST 151 H ALT 162 H Alkaline Phosphatase 129 H NT-Pro-B Natriuret Pep 6510 H Urine Protein Urine Blood 05/05/17 19:11 RBC Hgb Hct Eosinophils % Sodium Chloride Carbon Dioxide BUN Creatinine Est GFR ( Amer) Est GFR (Non-Af Amer) AST ALT Alkaline Phosphatase NT-Pro-B Natriuret Pep Urine Protein 100 H Urine Blood SMALL H - EKG Interpretation by Me Additional EKG results interpreted by me: 05/05/17 16:35 EKG obtained at 1549 shows sinus rhythm at a rate of 70 with evidence of left ventricular hypertrophy. No ST depression or elevation noted. Discharge - Discharge Clinical Impression: Chronic renal failure Qualifiers: Chronic kidney disease stage: unspecified stage Qualified Code(s): N18.9 - Chronic kidney disease, unspecified Congestive heart failure Qualifiers: Congestive heart failure type: unspecified congestive heart failure type Congestive heart failure chronicity: acute on chronic Qualified Code(s): I50.9 - Heart failure, unspecified Pulmonary edema Qualifiers: Chronicity: acute Qualified Code(s): J81.0 - Acute pulmonary edema Chest pain Qualifiers: Chest pain type: unspecified Qualified Code(s): R07.9 - Chest pain, unspecified Condition: Fair Disposition: [facility]LY [facility], [facility]
[2017-05-05 16:38] LABS: ALANINE AMINOTRANSFERASE 162 U/L (21-72); ALBUMIN 4.1 g/dL (3.5-5.0); ALKALINE PHOSPHATASE 129 U/L (38-126); ANION GAP 14 (5-19); ASPARTATE AMINO TRANSFERASE 151 U/L (17-59); BILIRUBIN,DIRECT 0.4 mg/dL (0.0-0.4); BILIRUBIN,TOTAL 0.4 mg/dL (0.2-1.3); BLOOD UREA NITROGEN 53 mg/dL (7-20); CALCIUM 8.4 mg/dL (8.4-10.2); CARBON DIOXIDE 15 mmol/L (22-30); CHLORIDE 118 mmol/L (98-107); CREATINE KINASE 89 U/L (55-170); CREATININE RESULT 4.58 mg/dL (0.52-1.25); GLUCOSE 86 mg/dL (75-110); POTASSIUM 4.8 mmol/L (3.6-5.0); SODIUM 147.4 mmol/L (137-145)
[2017-05-05 16:47] LABS: CREATINE KINASE MB 1.03 ng/mL (<4.55); TROPONIN I 0.026 ng/mL
--- NOTE | 2017-05-05 16:48 | RADIOLOGY REPORT (SQ) ---
EXAM DESCRIPTION: CHEST SINGLE VIEW COMPLETED DATE/TIME: 05/05/2017 4:33 pm REASON FOR STUDY: chest pain COMPARISON: CT angio chest 07/21/2016 Chest film 07/25/2016, 10/07/2016, 03/29/2017 EXAM PARAMETERS: NUMBER OF VIEWS: One view. TECHNIQUE: Single frontal radiographic view of the chest acquired. RADIATION DOSE: NA LIMITATIONS: None. FINDINGS: LUNGS AND PLEURA: Obstructive lung disease. Pulmonary vascular congestion with few Bogdan lines at both bases, worrisome for mild fluid overload or congestive failure superimposed on obstructive disease. No pneumothorax. MEDIASTINUM AND HILAR STRUCTURES: No masses. Contour normal. HEART AND VASCULAR STRUCTURES: Moderate cardiomegaly BONES: No acute findings. HARDWARE: None in the chest. OTHER: No other significant finding. IMPRESSION: Fluid overload or congestive failure superimposed on obstructive lung disease TECHNICAL DOCUMENTATION: JOB ID: [id number]
[2017-05-05] MEDS ORDERED: FUROSEMIDE INJ/PF 40 MG/4 ML SDV IV ONE (18:18)
--- NOTE | 2017-05-05 18:34 | EKG REPORT ---
SEVERITY:- ABNORMAL ECG - SINUS RHYTHM LEFT VENTRICULAR HYPERTROPHY : Confirmed by: Beulah Storm 05-May-2017 18:34:04
[2017-05-05] MEDS ORDERED: ENOXAPARIN SODIUM INJ 80 MG/0.8 ML DISP.SYRIN SUBCUT ONE (18:45)
[2017-05-05] MEDS ORDERED: NITROGLYCERIN 2% OINTMENT 1 GM PACKET TP ONE (19:02)
[2017-05-05 19:31] LABS: APPEARANCE,URINE CLEAR; BILIRUBIN,URINE NEGATIVE (NEGATIVE); GLUCOSE, URINE NEGATIVE (NEGATIVE); KETONES,URINE NEGATIVE (NEGATIVE); LEUKOCYTE ESTERASE,URINE NEGATIVE (NEGATIVE); NITRITE,URINE NEGATIVE (NEGATIVE); PROTEIN,URINE 100 mg/dL (NEGATIVE); URINE SPECIFIC GRAVITY 1.006; UROBILINOGEN,URINE NEGATIVE mg/dL (<2.0)
[2017-05-05 19:48] LABS: URINE BARBITURATES SCREEN NEGATIVE; URINE METHADONE SCREEN NEGATIVE; URINE OPIATES LOW NEGATIVE; URINE PHENCYCLIDINE SCREEN NEGATIVE
[2017-05-05 23:30] VITALS: BP 167/87
== END 2017-05-05 23:44 | disposition short-term general hospital (02) ==
LOC: ER 15:42
DX: N18.9 Chronic kidney disease, unspecified (principal); J81.0 Acute pulmonary edema; I50.9 Heart failure, unspecified; R07.9 Chest pain, unspecified; R06.02 Shortness of breath; I25.2 Old myocardial infarction; Z89.511 Acquired absence of right leg below knee; Z89.612 Acquired absence of left leg above knee; R79.89 Other specified abnormal findings of blood chemistry
CPT/HCPCS: 93005; 99285; 96372; 36415; 82553; 82550; 85025; 80053; 81001; 84484; 80307; 83880; 71010; 93010; J3490; J1650

== ENCOUNTER 2017-06-19 22:10 | Emergency (ER) | payer MEDICAID ==
[2017-06-19 23:03] LABS: ABSOLUTE BASOPHILS # (AUTO) 0.1 10^3/uL (0.0-0.2); ABSOLUTE EOSINOPHILS # (AUTO) 0.2 10^3/uL (0.0-0.6); ABSOLUTE LYMPHOCYTES (AUTO) 1.5 10^3/uL (0.5-4.7); ABSOLUTE MONOCYTES (AUTO) 0.7 10^3/uL (0.1-1.4); ABSOLUTE NEUT (AUTO) 4.9 10^3/uL (1.7-8.2); BASOPHILS % (AUTO) 0.8 % (0-2); EOSINOPHILS % (AUTO) 2.2 % (0-6); HEMATOCRIT 35.2 % (37.9-51.0); HEMOGLOBIN 11.8 g/dL (13.5-17.0); HGB HCT DIFFERENCE 0.2; LYMPHOCYTES % (AUTO) 20.3 % (13-45); MEAN CORPUSCULAR HEMOGLOBIN 30.4 pg (27.0-33.4); MEAN CORPUSCULAR HGB CONC 33.6 g/dL (32.0-36.0); MEAN CORPUSCULAR VOLUME 91 fl (80-97); MONOCYTES % (AUTO) 9.1 % (3-13); RED BLOOD COUNT 3.89 10^6/uL (4.35-5.55); SEGMENTED NEUTROPHILS % (AUTO) 67.6 % (42-78); WHITE BLOOD COUNT 7.2 10^3/uL (4.0-10.5)
--- NOTE | 2017-06-19 23:06 | RADIOLOGY REPORT (SQ) ---
EXAM DESCRIPTION: CHEST SINGLE VIEW COMPLETED DATE/TIME: 06/19/2017 10:31 pm REASON FOR STUDY: difficulty breathing COMPARISON: 05/05/2017 EXAM PARAMETERS: NUMBER OF VIEWS: One view. TECHNIQUE: Single frontal radiographic view of the chest acquired. RADIATION DOSE: NA LIMITATIONS: None. FINDINGS: LUNGS AND PLEURA: Increased interstitial thickening bilaterally with increased alveolar op acities in both lung bases. Small bilateral pleural effusions have increased since the prior study. MEDIASTINUM AND HILAR STRUCTURES: Stable. HEART AND VASCULAR STRUCTURES: Cardiomegaly. Mild increased vascularity. BONES: No acute findings. HARDWARE: None in the chest. OTHER: No other significant finding. IMPRESSION: Increased pulmonary edema and pleural effusions. TECHNICAL DOCUMENTATION: JOB ID: [id number] [employer]- All Rights Reserved
[2017-06-19] MEDS ORDERED: FUROSEMIDE INJ/PF 100 MG/10 ML SDV IV ONE (23:14)
[2017-06-19] MEDS ORDERED: NITROGLYCERIN/D5W 50 MG/250 ML RTUINJ IV ONE (23:18)
--- NOTE | 2017-06-19 23:20 | ER Document Report ---
ED General - General Chief Complaint: Breathing Difficulty Stated Complaint: DIFFICULTY BREATHING Time Seen by Provider: 06/19/17 23:04 Notes: Patient is a 62-year-old male with a past medical history of HIV, chronic kidney disease, hypertension, congestive heart failure, cocaine abuse, who presents with severe shortness of breath. Patient presents in distress by EMS. History is somewhat limited secondary to patient's initial vitals and air hunger. He reports that he ran out of all his medicines approximately 24 hours ago and has missed his most recent dose of furosemide 80 mg. He describes a progressively worsening shortness of breath over the last 2-3 hours. Nothing improves or worsens the symptoms. He states he has had similar symptoms in the past when his lungs have filled up with fluid. He denies any chest pain. He notes that he no longer has a primary care doctor. TRAVEL OUTSIDE OF THE [place] IN LAST 30 DAYS: No - Related Data Allergies/Adverse Reactions: No Known Allergies Allergy (Verified 05/05/17 16:07) Past Medical History - General Information source: Patient - Social History Smoking Status: Current Every Day Smoker Frequency of alcohol use: None Drug Abuse: Cocaine Lives with: Spouse/Significant other Family History: CAD, CVA, DM, Hyperlipidemia, Hypertension, Malignancy Patient has suicidal ideation: No Patient has homicidal ideation: No - Past Medical History Cardiac Medical History: Reports: Hx DVT, Hx Heart Attack, Hx Hypercholesterolemia, Hx Hypertension, Hx Peripheral Vascular Disease, Hx Pulmonary Embolism Pulmonary Medical History: Reports: Hx Bronchitis, Hx COPD, Hx Pneumonia Denies: Hx Asthma Neurological Medical History: Denies: Hx Seizures Endocrine Medical History: Reports: Hx Diabetes Mellitus Type 1, Hx Diabetes Mellitus Type 2 Renal/ Medical History: Reports: Hx Renal Insufficiency. 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, Reports Hx Musculoskeletal Trauma Psychiatric Medical History: Infectious Medical History: Reports: Hx HIV Past Surgical History: Reports: Hx Orthopedic Surgery - bilateral amputation, R BKA, L AKA, Hx Vascular Surgery - stents right chest, left arm clot removed, IVC filter, Other - Endoscopy - Immunizations Immunizations up to date: Yes Hx Diphtheria, Pertussis, Tetanus Vaccination: Yes Hx Pneumococcal Vaccination: 07/21/10 Review of Systems - Review of Systems Notes: Constitutional: Negative for fever. HENT: Negative for sore throat. Eyes: Negative for visual changes. Cardiovascular: Negative for chest pain. Respiratory: Positive for shortness of breath. Gastrointestinal: Negative for abdominal pain, vomiting or diarrhea. Genitourinary: Negative for dysuria. Musculoskeletal: Negative for back pain. Skin: Negative for rash. Neurological: Negative for headaches, weakness or numbness. 10 point ROS negative except as marked above and in HPI. Physical Exam - Vital signs Vitals: Resp 26 H 06/19/17 22:15 Interpretation: Tachycardic, Tachypneic Notes: PHYSICAL EXAMINATION: GENERAL: Appears uncomfortable, in moderate respiratory distress HEAD: Atraumatic, normocephalic. EYES: Pupils equal round and reactive to light, extraocular movements intact, sclera anicteric, conjunctiva are normal. ENT: nares patent, oropharynx clear without exudates. Moist mucous membranes. NECK: Normal range of motion, supple without lymphadenopathy LUNGS: Diminished breath sounds at the bases bilaterally. Scattered rales throughout. HEART: Regular rate and rhythm, systolic ejection murmur ABDOMEN: Soft, nontender, normoactive bowel sounds. No guarding, no rebound. No masses appreciated. EXTREMITIES: BKA's bilaterally NEUROLOGICAL: No focal neurological deficits. Moves all extremities spontaneously and on command. PSYCH: Normal mood, normal affect. SKIN: Warm, Dry, normal turgor, no rashes or lesions noted. Course - Re-evaluation Re-evalutation: 06/19/17 23:18 Patient presents in acute respiratory distress. Patient setting 90% on room air , tachypneic with initial respiratory rate of 28 and severely hypertensive with initial blood pressure of 211 and 144. Patient has a history of congestive heart failure, currently taking Lasix 80 mg daily but states he ran out yesterday. Presentation is most consistent with pulmonary edema in the setting of congestive heart failure. Initially patient was placed on a nitro paste and BiPAP. However unfortunately he can persisted with severe hypertension despite Nitropaste so he will be transitioned to a nitroglycerin infusion. Will start 80 mcg/min. Will also provide Lasix 80 mg IV. Labs will be obtained. Initial chest x-ray does demonstrate pulmonary edema and cardiomegaly. Will continue to reassess recently as patient is critically ill at this time. 06/19/17 23:50 Patient's laboratories do show market elevation of the patient's BNP at 30,000. Creatinine is also worsened and his GFR has gone from 16-11. Patient's work of breathing continues to improve on BiPAP and now on the nitroglycerin infusion his blood pressure is down trended to 166/97. Will continue to monitor closely 06/20/17 00:10 Patient continues to require BiPAP. Drip at 80mcg/min. He admits to cocaine use on friday. We do not have nephrology and given his worsening kidney function I have initiated transfer to [facility]. 06/20/17 01:16 I have discussed this case with and [facility] who has agreed to accepted that patient in transfer. He remains stable on 80mcg/min on nitro and bipap. 0220-patient remains stable for transport. Drip at 110 mcg/min - Vital Signs Vital signs: Temp Pulse Resp BP Pulse Ox 98 F 87 19 156/88 H 100 06/20/17 02:48 06/20/17 02:48 06/20/17 02:48 06/20/17 02:48 06/20/17 02:48 - Laboratory Result Diagrams: 06/19/17 22:40 06/19/17 22:40 Laboratory results interpreted by me: 06/19/17 06/19/17 06/19/17 22:40 22:40 22:40 RBC 3.89 L Hgb 11.8 L Hct 35.2 L VBG pCO2 VBG HCO3 Chloride 110 H Carbon Dioxide 18 L BUN 53 H Creatinine 6.35 H Est GFR ( Amer) 11 L Est GFR (Non-Af Amer) 9 L Calcium 7.2 L Direct Bilirubin 0.5 H AST 144 H ALT 229 H Alkaline Phosphatase 194 H NT-Pro-B Natriuret Pep 51613 H Urine Protein Urine Glucose (UA) 06/19/17 06/19/17 22:40 23:57 RBC Hgb Hct VBG pCO2 31.6 L VBG HCO3 17.6 L Chloride Carbon Dioxide BUN Creatinine Est GFR ( Amer) Est GFR (Non-Af Amer) Calcium Direct Bilirubin AST ALT Alkaline Phosphatase NT-Pro-B Natriuret Pep Urine Protein >=500 H Urine Glucose (UA) 50 H - Diagnostic Test Radiology reviewed: Image reviewed, Reports reviewed Radiology results interpreted by me: 06/20/17 01:19 Chest x-ray: Pulmonary vascular congestion, pulmonary edema, cardiomegaly - EKG Interpretation by Me Additional EKG results interpreted by me: 06/20/17 01:18 Sinus tachycardia. Rate 106. LVH. Repolarization abnormality associated with LVH. QTC is 498. Critical Care Note - Critical Care Note Total time excluding time spent on procedures (mins): 40 Comments: Critical care time spent obtaining history from patient or surrogate, discussions with consultants, development of treatment plan with patient or surrogate, evaluation of patient's response to treatment, examination of patient , ordering and performing treatments and interventions, ordering and review of laboratory studies, re-evaluation of patient's condition, ordering and review of radiographic studies and review of old charts Discharge - Discharge Clinical Impression: Cocaine abuse, HIV (human immunodeficiency virus infection), Hypertensive emergency, Flash pulmonary edema Acute on chronic renal failure Qualifiers: Acute renal failure type: unspecified Chronic kidney disease stage: unspecified stage Qualified Code(s): N17.9 - Acute kidney failure, unspecified; N18.9 - Chronic kidney disease, unspecified; N18.9 - Chronic kidney disease, unspecified Condition: Stable Disposition: [facility]
[2017-06-19] MEDS: NITROGLYCERIN/D5W 50 MG/250 ML RTUINJ IV PRN (23:23)
[2017-06-19 23:33] LABS: ALANINE AMINOTRANSFERASE 229 U/L (21-72); ALBUMIN 3.6 g/dL (3.5-5.0); ALKALINE PHOSPHATASE 194 U/L (38-126); ANION GAP 15 (5-19); ASPARTATE AMINO TRANSFERASE 144 U/L (17-59); BILIRUBIN,DIRECT 0.5 mg/dL (0.0-0.4); BILIRUBIN,TOTAL 0.5 mg/dL (0.2-1.3); BLOOD UREA NITROGEN 53 mg/dL (7-20); CALCIUM 7.2 mg/dL (8.4-10.2); CARBON DIOXIDE 18 mmol/L (22-30); CHLORIDE 110 mmol/L (98-107); CREATININE RESULT 6.35 mg/dL (0.52-1.25); GLUCOSE 107 mg/dL (75-110); POTASSIUM 3.7 mmol/L (3.6-5.0); SODIUM 142.7 mmol/L (137-145); TOTAL PROTEIN 6.3 g/dL (6.3-8.2)
[2017-06-19 23:39] LABS: VENOUS BLOOD BASE EXCESS -6.2 mmol/L; VENOUS BLOOD HCO3 17.6 mmol/L (20-32); VENOUS BLOOD PCO2 31.6 mmHg (35-63); VENOUS BLOOD PH 7.36 (7.30-7.42)
[2017-06-20 00:23] LABS: APPEARANCE,URINE CLEAR; BILIRUBIN,URINE NEGATIVE (NEGATIVE); GLUCOSE, URINE 50 mg/dL (NEGATIVE); KETONES,URINE NEGATIVE (NEGATIVE); LEUKOCYTE ESTERASE,URINE NEGATIVE (NEGATIVE); NITRITE,URINE NEGATIVE (NEGATIVE); PROTEIN,URINE >=500 mg/dL (NEGATIVE); URINE SPECIFIC GRAVITY 1.013; UROBILINOGEN,URINE NEGATIVE mg/dL (<2.0)
[2017-06-20] MEDS: NITROGLYCERIN/D5W 50 MG/250 ML RTUINJ IV PRN ×2 (01:05→01:38)
[2017-06-20 02:18] VITALS: BP 156/88
--- NOTE | 2017-06-20 06:38 | EKG REPORT ---
SEVERITY:- ABNORMAL ECG - SINUS TACHYCARDIA VENTRICULAR PREMATURE COMPLEX PROBABLE LEFT ATRIAL ABNORMALITY LVH WITH SECONDARY REPOLARIZATION ABNORMALITY BORDERLINE PROLONGED QT INTERVAL : Confirmed by: Marco Young MD 20-Jun-2017 06:37:53
== END 2017-06-20 02:27 | disposition short-term general hospital (02) ==
LOC: ER 22:10
DX: I12.9 Hypertensive chronic kidney disease with stage 1 through stage 4 chronic kidney disease, or unspecified chronic kidney disease (principal); N18.9 Chronic kidney disease, unspecified; N17.9 Acute kidney failure, unspecified; J81.1 Chronic pulmonary edema; I16.0 Hypertensive urgency; R06.02 Shortness of breath; B20 Human immunodeficiency virus [HIV] disease; I50.9 Heart failure, unspecified; F14.10 Cocaine abuse, uncomplicated; F17.200 Nicotine dependence, unspecified, uncomplicated
CPT/HCPCS: 93005; 99291; 96375; 96365; 96366; 36415; 85025; 80053; 81001; 84484; 82803; 83880; 71010; 93010; 94660; J1940; J3490 ×2

== ENCOUNTER 2017-07-07 21:34 | Emergency (ER) | payer MEDICAID ==
[2017-07-07] MEDS ORDERED: NITROGLYCERIN/D5W 50 MG/250 ML RTUINJ IV PRN (22:09)
--- NOTE | 2017-07-07 22:10 | ER Document Report ---
ED General - General Chief Complaint: Shortness Of Breath Stated Complaint: TROUBLE BREATHING Time Seen by Provider: 07/07/17 22:01 Notes: Patient is a pleasant 62-year-old male who is well-known to her ER. She presents frequently with difficulty breathing. Has a history of pulmonary edema this recurrent. He has history of cocaine abuse and poorly controlled hypertension. He also has a history of HIV. He says he takes medications as prescribed. He says his viral load is nondetectable and CD4 counts have been good. He says her phone some difficulty breathing tonight. When paramedics arrived he was 92% on room air with difficulty breathing. She says peaks in about 2-3 word sentences. He does have some tachypnea. Patient denies any chest pain. He denies any recent fevers or infections. She does have history of chronic kidney disease but has never required dialysis. During his last visit to the ER here was transferred to [facility] because of worsening creatinine. He says during his stay [facility] he did not require any dialysis and was eventually discharged home. He does have a history of cocaine abuse. Says his last cocaine abuse was probably Friday night. He has no other complaints at this time. TRAVEL OUTSIDE OF THE [place] IN LAST 30 DAYS: No - Related Data Allergies/Adverse Reactions: No Known Allergies Allergy (Verified 05/05/17 16:07) Past Medical History - Social History Smoking Status: Current Some Day Smoker Frequency of alcohol use: None Drug Abuse: Cocaine Family History: CAD, CVA, DM, Hyperlipidemia, Hypertension, Malignancy Patient has suicidal ideation: No Patient has homicidal ideation: No - Past Medical History Cardiac Medical History: Reports: Hx DVT, Hx Heart Attack, Hx Hypercholesterolemia, Hx Hypertension, Hx Peripheral Vascular Disease, Hx Pulmonary Embolism Pulmonary Medical History: Reports: Hx Bronchitis, Hx COPD, Hx Pneumonia Denies: Hx Asthma Neurological Medical History: Denies: Hx Seizures Endocrine Medical History: Reports: Hx Diabetes Mellitus Type 1, Hx Diabetes Mellitus Type 2 Renal/ Medical History: Reports: Hx Renal Insufficiency. 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, Reports Hx Musculoskeletal Trauma Psychiatric Medical History: Infectious Medical History: Reports: Hx HIV Past Surgical History: Reports: Hx Orthopedic Surgery - bilateral amputation, R BKA, L AKA, Hx Vascular Surgery - stents right chest, left arm clot removed, IVC filter, Other - Endoscopy - Immunizations Immunizations up to date: Yes Hx Diphtheria, Pertussis, Tetanus Vaccination: Yes Hx Pneumococcal Vaccination: 07/21/10 Review of Systems - Review of Systems Notes: My Normal Review Basic REVIEW OF SYSTEMS: CONSTITUTIONAL : Denies fever, chills, or sweats. Denies recent illness. EENT: Denies eye, ear, throat, or mouth pain or symptoms. Denies nasal or sinus congestion. CARDIOVASCULAR: Denies chest pain. RESPIRATORY: Denies cough, cold, or chest congestion. Difficulty breathing. GASTROINTESTINAL: Denies abdominal pain. Denies nausea, vomiting, or diarrhea. Denies constipation. Last BM: MUSCULOSKELETAL: Denies neck or back pain or joint pain or swelling. SKIN: Denies rash or skin lesions. NEUROLOGICAL: Denies altered mental status or loss of consciousness. Denies headache. Denies weakness or paralysis or loss of use of either side. Denies problems with gait or speech. Denies sensory or motor loss. ALL OTHER SYSTEMS REVIEWED AND NEGATIVE. Physical Exam - Vital signs Vitals: Temp Resp BP Pulse Ox 98.5 F 21 H 159/100 H 98 07/07/17 21:49 07/07/17 21:49 07/07/17 21:49 07/07/17 21:49 - Notes Notes: General Appearance: Well nourished, alert, cooperative, moderate acute distress , no obvious discomfort. Tachypnea Vitals: reviewed, See vital signs table. Head: no swelling or tenderness to the head Eyes: PERRL, EOMI, Conjuctiva clear Mouth: No decreasd moisture Throat: No tonsillar inflammation, No airway obstruction, No lymphadenopathy Neck: Supple, no neck tenderness, No thyromegaly Lungs: Basilar rales. Tachypnea. Speaking in 2-3 word sentences. Heart: Normal rate, Regular rythm, No murmur, no rub Abdomen: Normal BS, soft, No rigidity, No abdominal tenderness, No guarding, no rebound, no abdominal masses, no organomegaly Extremities: strength 5/5 in all extremities, good pulses in all extremities, bilateral lower leg amputations. Skin: warm, dry, appropriate color, no rash Neuro: speech clear, oriented x 3, normal affect, responds appropriately to questions. Course - Re-evaluation Re-evalutation: 07/07/17 23:42 Patient is much improved on BiPAP. His lung fisher now sound clear. I do not have a rales in the bases anymore. I did give him a trial off BiPAP. After approximately 5 minutes on BiPAP he started to have tachypnea again and started to speech and only 3 word sentences. I placed his BiPAP back on them. Patient initially said he did not want to be transferred to the facility. I did call our hospitalist. I did inform her of his request but also the concern about his continually increasing serum creatinine with some metabolic acidosis. Dr. Mayberry said should be willing to admit him here if he refuses to ever have dialysis as her concern is that if he worsens that she would not have acute dialysis to be able to improve him. This is a understandable concern and I therefore went back and spoke with the patient. I informed him of her concerns. I informed him that I cannot guarantee him that he will need dialysis in next 24-48 hours; however, there is a possibility based on his worsening creatinine and his current respiratory status. Patient says he understands now agrees to be transferred. 07/08/17 00:51 I discussed the case with Dr. Hank Marie. He agrees to accept the patient for transfer. 07/08/17 00:53 07/08/17 05:15 Paramedics arrived and tried to transition him to their CPAP. The patient does not like CPAP. We took him off of BiPAP and watched him. He continues that he feels fine. He continues have clear lung fisher with no rales. He is doing well with nasal cannula. I informed him that I am okay with him going by nasal cannula however if he starts having shortness of breath during transfer he must allow the paramedics to use their CPAP. He is agreeable to this. I explained this to the paramedics and they show understanding. Patient is stable for transfer. Dictation of this chart was performed using voice recognition software; therefore, there may be some unintended grammatical errors. - Vital Signs Vital signs: Temp Pulse Resp BP Pulse Ox 98.5 F 11 L 140/91 H 100 07/07/17 21:49 07/08/17 04:50 07/08/17 04:46 07/08/17 04:50 - Laboratory Result Diagrams: 07/07/17 22:11 07/07/17 22:11 Laboratory results interpreted by me: 07/07/17 07/07/17 07/07/17 22:11 22:11 22:11 Hgb 13.4 L RDW 14.8 H Chloride 109 H Carbon Dioxide 18 L BUN 55 H Creatinine 6.65 H Est GFR ( Amer) 10 L Est GFR (Non-Af Amer) 8 L Calcium 7.6 L AST 90 H ALT 120 H Alkaline Phosphatase 140 H NT-Pro-B Natriuret Pep 48690 H - EKG Interpretation by Me Additional EKG results interpreted by me: 07/07/17 22:11 EKG is reviewed and interpreted by me. EKG shows normal sinus rhythm with a rate of [address] segment elevation or depression. Patient does have T- wave inversion in lead aVL but this is unchanged comparison to his old EKG from June 19, 2017. NE interval, QRS duration are within normal range. QTc interval is prolonged. 07/07/17 22:11 Discharge - Discharge Referrals: DENIS SALOMON DO [Primary Care Provider] - Follow up as needed
[2017-07-07 22:33] LABS: ABSOLUTE BASOPHILS # (AUTO) 0.1 10^3/uL (0.0-0.2); ABSOLUTE EOSINOPHILS # (AUTO) 0.2 10^3/uL (0.0-0.6); ABSOLUTE LYMPHOCYTES (AUTO) 2.2 10^3/uL (0.5-4.7); ABSOLUTE MONOCYTES (AUTO) 0.7 10^3/uL (0.1-1.4); ABSOLUTE NEUT (AUTO) 2.8 10^3/uL (1.7-8.2); BASOPHILS % (AUTO) 1.1 % (0-2); EOSINOPHILS % (AUTO) 3.1 % (0-6); HEMATOCRIT 39.9 % (37.9-51.0); HEMOGLOBIN 13.4 g/dL (13.5-17.0); LYMPHOCYTES % (AUTO) 36.9 % (13-45); MEAN CORPUSCULAR HEMOGLOBIN 30.7 pg (27.0-33.4); MEAN CORPUSCULAR HGB CONC 33.4 g/dL (32.0-36.0); MEAN CORPUSCULAR VOLUME 92 fl (80-97); MONOCYTES % (AUTO) 11.6 % (3-13); PLATELET COUNT 208 10^3/uL (150-450); RED BLOOD COUNT 4.36 10^6/uL (4.35-5.55); RED CELL DISTRIBUTION WIDTH 14.8 % (11.5-14.0); SEGMENTED NEUTROPHILS % (AUTO) 47.3 % (42-78); TOTAL CELLS COUNTED % (AUTO) 100 %
[2017-07-07 22:37] LABS: VENOUS BLOOD BASE EXCESS -4.2 mmol/L; VENOUS BLOOD HCO3 20.4 mmol/L (20-32); VENOUS BLOOD PCO2 36.2 mmHg (35-63); VENOUS BLOOD PH 7.37 (7.30-7.42)
[2017-07-07 22:55] LABS: ALANINE AMINOTRANSFERASE 120 U/L (21-72); ALKALINE PHOSPHATASE 140 U/L (38-126); ANION GAP 16 (5-19); ASPARTATE AMINO TRANSFERASE 90 U/L (17-59); BILIRUBIN,DIRECT 0.3 mg/dL (0.0-0.4); BILIRUBIN,TOTAL 0.3 mg/dL (0.2-1.3); BLOOD UREA NITROGEN 55 mg/dL (7-20); CALCIUM 7.6 mg/dL (8.4-10.2); CARBON DIOXIDE 18 mmol/L (22-30); CHLORIDE 109 mmol/L (98-107); CREATINE KINASE 147 U/L (55-170); GLUCOSE 104 mg/dL (75-110); POTASSIUM 4.2 mmol/L (3.6-5.0); SODIUM 143.2 mmol/L (137-145)
[2017-07-07 23:07] LABS: CREATINE KINASE MB 1.98 ng/mL (<4.55)
[2017-07-07 23:09] LABS: TROPONIN I 0.055 ng/mL
--- NOTE | 2017-07-08 04:47 | RADIOLOGY REPORT (SQ) ---
EXAM DESCRIPTION: CHEST SINGLE VIEW CLINICAL HISTORY: 62 years, Male, dyspnea COMPARISON: None. NUMBER OF VIEWS: 1 FINDINGS: Mild interstitial markings with lower predominance, mild increased lung volume, normal cardiac silhouette size, right upper hemithoracic clips, and intact bony thorax. IMPRESSION: Mild interstitial markings; differential diagnosis includes mild pulmonary edema, mild chronic interstitial lung disease, and/or atypical pneumonitis. 2011 [employer]- All Rights Reserved
[2017-07-08 05:11] VITALS: BP 140/91
--- NOTE | 2017-07-08 08:05 | EKG REPORT ---
SEVERITY:- ABNORMAL ECG - SINUS RHYTHM PROBABLE LEFT ATRIAL ABNORMALITY LEFT ANTERIOR FASCICULAR BLOCK LEFT VENTRICULAR HYPERTROPHY BORDERLINE PROLONGED QT INTERVAL NONSPECIFIC ST-T CHANGES LATERAL LEADS. : Confirmed by: Marco Young MD 08-Jul-2017 08:05:21
== END 2017-07-08 05:17 | disposition short-term general hospital (02) ==
LOC: ER 21:34
DX: I12.9 Hypertensive chronic kidney disease with stage 1 through stage 4 chronic kidney disease, or unspecified chronic kidney disease (principal); E11.22 Type 2 diabetes mellitus with diabetic chronic kidney disease; N18.9 Chronic kidney disease, unspecified; N17.9 Acute kidney failure, unspecified; R06.02 Shortness of breath; I25.2 Old myocardial infarction; F14.10 Cocaine abuse, uncomplicated; F17.200 Nicotine dependence, unspecified, uncomplicated; Z21 Asymptomatic human immunodeficiency virus [HIV] infection status; Z86.718 Personal history of other venous thrombosis and embolism; Z86.711 Personal history of pulmonary embolism; Z82.49 Family history of ischemic heart disease and other diseases of the circulatory system; Z87.01 Personal history of pneumonia (recurrent)
CPT/HCPCS: 93005; 99285; 96365; 96366; 36415; 82553; 82550; 85025; 80053; 84484; 82803; 83880; 71010; 93010; 94660; J3490

== ENCOUNTER 2017-07-22 10:40 | Emergency (ER) | payer MEDICAID ==
[2017-07-22] MEDS ORDERED: IPRATROPIUM/ALBUTEROL 0.5-2.5 MG/3 ML AMPUL NEB ONE (11:15)
[2017-07-22] MEDS ORDERED: METHYLPREDNISOLONE INJ 125 MG/2 ML SDV IV ONE (11:15)
[2017-07-22] MEDS ORDERED: ALBUTEROL SULFATE 0.083% NEB 2.5 MG/3 ML AMPUL NEB ONE ×2 (11:16→11:17)
[2017-07-22 11:23] LABS: ABSOLUTE BASOPHILS # (AUTO) 0.1 10^3/uL (0.0-0.2); ABSOLUTE EOSINOPHILS # (AUTO) 0.1 10^3/uL (0.0-0.6); ABSOLUTE LYMPHOCYTES (AUTO) 1.9 10^3/uL (0.5-4.7); ABSOLUTE MONOCYTES (AUTO) 0.5 10^3/uL (0.1-1.4); BASOPHILS % (AUTO) 1.1 % (0-2); EOSINOPHILS % (AUTO) 2.3 % (0-6); HEMATOCRIT 37.4 % (37.9-51.0); HEMOGLOBIN 12.3 g/dL (13.5-17.0); LYMPHOCYTES % (AUTO) 33.3 % (13-45); MEAN CORPUSCULAR HEMOGLOBIN 29.8 pg (27.0-33.4); MEAN CORPUSCULAR HGB CONC 32.9 g/dL (32.0-36.0); MEAN CORPUSCULAR VOLUME 91 fl (80-97); MONOCYTES % (AUTO) 9.5 % (3-13); PLATELET COUNT 160 10^3/uL (150-450); RED BLOOD COUNT 4.13 10^6/uL (4.35-5.55); RED CELL DISTRIBUTION WIDTH 14.9 % (11.5-14.0); SEGMENTED NEUTROPHILS % (AUTO) 53.8 % (42-78); TOTAL CELLS COUNTED % (AUTO) 100 %; WHITE BLOOD COUNT 5.6 10^3/uL (4.0-10.5)
[2017-07-22 11:40] LABS: INTERNATIONAL RATION (INR) 1.79; PROTHROMBIN TIME 21.8 SEC (11.4-15.4)
[2017-07-22 11:42] LABS: ALANINE AMINOTRANSFERASE 71 U/L (21-72); ALBUMIN 3.6 g/dL (3.5-5.0); ALKALINE PHOSPHATASE 95 U/L (38-126); ANION GAP 14 (5-19); ASPARTATE AMINO TRANSFERASE 66 U/L (17-59); BILIRUBIN,DIRECT 0.3 mg/dL (0.0-0.4); BILIRUBIN,TOTAL 0.5 mg/dL (0.2-1.3); BLOOD UREA NITROGEN 64 mg/dL (7-20); CALCIUM 7.7 mg/dL (8.4-10.2); CARBON DIOXIDE 19 mmol/L (22-30); CHLORIDE 110 mmol/L (98-107); GLUCOSE 141 mg/dL (75-110); POTASSIUM 3.7 mmol/L (3.6-5.0); SODIUM 142.5 mmol/L (137-145); TOTAL PROTEIN 6.1 g/dL (6.3-8.2)
[2017-07-22 11:54] LABS: CREATINE KINASE MB 1.27 ng/mL (<4.55)
[2017-07-22 12:07] LABS: TROPONIN I 0.052 ng/mL
--- NOTE | 2017-07-22 12:09 | RADIOLOGY REPORT (SQ) ---
EXAM DESCRIPTION: CHEST SINGLE VIEW portable COMPLETED DATE/TIME: 07/22/2017 11:54 am REASON FOR STUDY: Shortness of breath, COPD COMPARISON: 07/07/2017 EXAM PARAMETERS: NUMBER OF VIEWS: One view. TECHNIQUE: Single frontal radiographic view of the chest acquired. Portable RADIATION DOSE: NA LIMITATIONS: None. FINDINGS: LUNGS AND PLEURA: No areas of consolidation or large pleural effusion. Minor interstitial / vascular prominence again noted, concerning for vascular congestion. MEDIASTINUM AND HILAR STRUCTURES: No masses. Contour normal. HEART AND VASCULAR STRUCTURES: Cardiomegaly stable. Mild interstitial/ vascular prominence. BONES: No acute findings. HARDWARE: Surgical clips high in the right axilla. OTHER: No other significant finding. IMPRESSION: Cardiomegaly stable. Mild interstitial/ vascular prominence noted. TECHNICAL DOCUMENTATION: JOB ID: [id number] [employer]- All Rights Reserved
--- NOTE | 2017-07-22 12:14 | ER Document Report ---
ED Respiratory Problem - General Chief Complaint: Shortness Of Breath Stated Complaint: SHORTNESS OF BREATH Time Seen by Provider: 07/22/17 11:14 Notes: Patient brought in by EMS for difficulty breathing. Patient has had multiple episodes like this 1 in the past, was in [facility] just before [place]. He was told he has bronchitis. He does have home nebulizer, but is not on home oxygen. Says he is had this problem for many years, off and on. At one time, he says he awakened from a 6 a day, that started like this. He says he has had a cough with congestion producing some phlegm. Denies any fever. Has some heavy feeling in the front of his chest. Patient has a history of kidney disease and insufficiency. 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 He is currently on warfarin. PMH: Hypertension, CHF, COPD, denies diabetes. TRAVEL OUTSIDE OF THE [place] IN LAST 30 DAYS: No - Related Data Allergies/Adverse Reactions: No Known Allergies Allergy (Verified 07/22/17 12:45) Past Medical History - Social History Smoking Status: Current Every Day Smoker Family History: Reviewed & Not Pertinent, CAD, CVA, DM, Hyperlipidemia, Hypertension, Malignancy - Past Medical History Cardiac Medical History: Reports: Hx DVT, Hx Heart Attack, Hx Hypercholesterolemia, Hx Hypertension, Hx Peripheral Vascular Disease, Hx Pulmonary Embolism Pulmonary Medical History: Reports: Hx Bronchitis, Hx COPD, Hx Pneumonia Neurological Medical History: Renal/ Medical History: Reports: Hx Renal Insufficiency GI Medical History: Reports: Hx Gastroesophageal Reflux Disease Musculoskeltal Medical History: Reports Hx Arthritis, 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, Reports Hx Musculoskeletal Trauma Psychiatric Medical History: Infectious Medical History: Reports: Hx HIV Past Surgical History: Reports: Hx Orthopedic Surgery - bilateral amputation, R BKA, L AKA, Hx Vascular Surgery - stents right chest, left arm clot removed, IVC filter, Other - Endoscopy - Immunizations Immunizations up to date: Yes Hx Diphtheria, Pertussis, Tetanus Vaccination: Yes Hx Pneumococcal Vaccination: 07/21/10 Review of Systems - Review of Systems Notes: REVIEW OF SYSTEMS: CONSTITUTIONAL : Denies fever. EENT: Denies eye, ear, nose or mouth or throat pain or other symptoms. CARDIOVASCULAR: Denies chest pain. Chest feels heavy at times. RESPIRATORY: See HPI. GASTROINTESTINAL: Denies abdominal pain or nausea, vomiting, or diarrhea. GENITOURINARY: Denies difficulty or painful urinating, urinary frequency, blood in urine. MUSCULOSKELETAL: Left AKA and right BKA. SKIN: Denies rash or skin lesions. NEUROLOGICAL: Denies LOC or altered mental status. Denies headache. Denies sensory loss or motor deficits. ALL OTHER SYSTEMS REVIEWED AND NEGATIVE. Physical Exam - Vital signs Vitals: Resp 17 07/22/17 10:50 Interpretation: Normal, Hypertensive - Minimal - Notes Notes: PHYSICAL EXAMINATION: GENERAL: Well-appearing, in no acute distress. Looks depressed. HEAD: Atraumatic, normocephalic. ENT: oropharynx clear without exudates. Moist mucous membranes. NECK: Normal range of motion, supple. LUNGS: Bilateral breath sounds with good airflow. O2 sat was 98% at the scene by EMS.. HEART: Regular rate and rhythm without murmurs. ABDOMEN: Soft, nontender. No guarding or rebound. No masses. BACK: No tenderness throughout entire back. EXTREMITIES: Left AKA and right BKA. Other or so unremarkable.. NEUROLOGICAL: Normal speech, normal gait. Normal sensory, motor, and reflex exams. Awake, alert, and oriented x3. Cranial nerves normal. PSYCH: Normal mood, normal affect. SKIN: Warm, dry, no rashes. Course - Re-evaluation Re-evalutation: 07/22/17 13:52 Patient is doing much better. He has had 3 nebulizer treatments. His lungs are clear bilaterally. Oxygen saturation is 97% on room air. Other vital signs are all normal. I think we can give him a try going home with steroids. His only complaint is of a headache. - Vital Signs Vital signs: Temp Pulse Resp BP Pulse Ox 98.2 F 25 H 140/95 H 99 07/22/17 14:20 07/22/17 14:02 07/22/17 14:02 07/22/17 14:02 - Laboratory Result Diagrams: 07/22/17 10:50 07/22/17 10:50 Laboratory results interpreted by me: 07/22/17 07/22/17 07/22/17 10:50 10:50 10:50 RBC 4.13 L Hgb 12.3 L Hct 37.4 L RDW 14.9 H PT 21.8 H Chloride 110 H Carbon Dioxide 19 L BUN 64 H Creatinine 6.60 H Est GFR ( Amer) 10 L Est GFR (Non-Af Amer) 9 L Glucose 141 H Calcium 7.7 L AST 66 H NT-Pro-B Natriuret Pep Total Protein 6.1 L 07/22/17 10:50 RBC Hgb Hct RDW PT Chloride Carbon Dioxide BUN Creatinine Est GFR ( Amer) Est GFR (Non-Af Amer) Glucose Calcium AST NT-Pro-B Natriuret Pep 18756 H Total Protein 07/22/17 18:36 Renal labs are about the same as they were on previous visits here. - Diagnostic Test Radiology results interpreted by me: 07/22/17 12:19 Chest x-ray shows cardiomegaly and some mild increased vascular congestion. - EKG Interpretation by Me EKG shows normal: Sinus rhythm Rate: Normal Rhythm: NSR Voltage: Consistant with LVH Discharge - Discharge Clinical Impression: COPD exacerbation Condition: Stable Disposition: HOME, SELF-CARE Additional Instructions: Chronic Obstructive Lung Disease You have chronic obstructive lung disease (COPD). The symptoms come from emphysema (damage to small airways, with trapping of air in large sacks in the lung) and chronic bronchitis (repeated infection and damage to larger airways). The cause is almost always cigarette smoking, although dust exposure, asthma, and infections contribute. You should avoid fumes, dust, and smoke (especially tobacco smoke). Your condition will flare from time to time. There is no cure, but the symptoms can be treated. Bronchodilators (asthma medicine) are often helpful. Antibiotics help when infection is present. When shortness of breath is severe, we may prescribe cortisone medication. If medicine doesn't help enough, we can arrange for you to have an oxygen tank at home. Notify your doctor at once if sputum becomes thick, foul, or bloody, if you develop a fever or chest pain, or if your shortness of breath worsens. STEROID MEDICATION: You have been given an injection of or oral medicine of the cortisone/ steroid class. This medication is used to control inflammation or allergy. Kaden t is usually only given for a short period of time, until the acute process subsides. There are usually no side effects from short-term use of cortisone-like medications. Some persons feel an increased sense of well-being and are not sleepy at bedtime. Long-term use of cortisone medications is best avoided, unless required for a severe condition. If your condition does not remit, or relapses after the course of corticosteroid medication, you should consult your physician. INHALED BRONCHODILATORS: You have received treatment(s) of and/or prescription for an inhaled bronchodilator -- a medication which stimulates the airways in the lung to dilate. This improves the flow of air in asthma, bronchitis, and emphysema. These medicines have some similarity to adrenaline, and can cause similar side effects: shakiness, racing heart, and a sense of nervousness. These side effects decrease with time. Contact your doctor if these side effects are severe. Do not over-use the medicine. Too-frequent use of the inhaler may make it ineffective. Call your doctor if the inhaler is not controlling your symptoms at the prescribed doses. SMOKING: If you smoke, you should stop smoking. The tar and chemicals in cigarette smoke are harmful. Smoking has been shown to cause: emphysema chronic bronchitis lung cancer mouth and throat cancer stomach and pancreas cancer premature aging defects In addition, smoking increases ear and lung infections in children of smokers. USE OF ACETAMINOPHEN: Acetaminophen may be taken for pain relief or fever control. It's much safer than aspirin, offering a wider range of "safe" dosages. It is safe during . Some brand names are Tylenol, Panadol, Datril, Anacin 3, Tempra, and Liquiprin. Acetaminophen can be repeated every four hours. The following are maximum recommended dosages: FOLLOW-UP CARE: If you have been referred to a physician for follow-up care, call the physician s office for an appointment as you were instructed or within the next two days. If you experience worsening or a significant change in your symptoms, notify the physician immediately or return to the Emergency Department at any time for re-evaluation. Prescriptions: Ipratropium/Albuterol Sulfate [Duoneb 3 ml Ampul] 3 ml NEB Q6HP PRN #30 vial.neb PRN Reason: Albuterol Sulfate [Albuterol Sulfate 2.5mg/3 mL] 2.5 mg IH Q4 #25 ml Prednisone [Deltasone 10 mg Tablet] 10 mg PO ASDIR PRN #21 tablet PRN Reason:
[2017-07-22] MEDS ORDERED: OXYCODONE-ACETAMINOPHEN 5-325 MG TABLET PO ONE (13:53)
[2017-07-22] MEDS ORDERED: PROMETHAZINE HCL 25 MG TABLET PO ONE (13:53)
[2017-07-22 14:20] VITALS: BP 140/95
--- NOTE | 2017-07-23 10:30 | EKG REPORT ---
SEVERITY:- ABNORMAL ECG - SINUS RHYTHM LEFT VENTRICULAR HYPERTROPHY PROLONGED QT INTERVAL : Confirmed by: Beulah Storm 23-Jul-2017 10:29:43
== END 2017-07-22 14:32 | disposition home or self-care (01) ==
LOC: ER 10:40
DX: J44.1 Chronic obstructive pulmonary disease with (acute) exacerbation (principal); F17.200 Nicotine dependence, unspecified, uncomplicated; E78.00 Pure hypercholesterolemia, unspecified; I10 Essential (primary) hypertension; Z21 Asymptomatic human immunodeficiency virus [HIV] infection status; Z86.718 Personal history of other venous thrombosis and embolism; I25.2 Old myocardial infarction; Z89.511 Acquired absence of right leg below knee; Z89.612 Acquired absence of left leg above knee
CPT/HCPCS: 93005; 94640 ×2; 99285; 96374; 36415; 82553; 85025; 85610; 80053; 84484; 83880; 71045; 93010; J2930; J3490; J7620

== ENCOUNTER 2017-07-24 20:39 | Emergency (ER) | payer MEDICAID ==
[2017-07-24] MEDS ORDERED: NITROGLYCERIN 2% OINTMENT 1 GM PACKET TP ONE (20:52)
[2017-07-24] MEDS ORDERED: MAGNESIUM SULFATE/D5W 1 GM/100 ML RTUPB IV ONE ×2 (20:52→20:53)
[2017-07-24] MEDS ORDERED: IPRATROPIUM/ALBUTEROL 0.5-2.5 MG/3 ML AMPUL NEB ONE ×3 (20:52→22:41)
[2017-07-24] MEDS ORDERED: NITROGLYCERIN 2% OINTMENT 1 GM PACKET ONE (20:53)
--- NOTE | 2017-07-24 21:07 | RADIOLOGY REPORT (SQ) ---
EXAM DESCRIPTION: CHEST SINGLE VIEW COMPLETED DATE/TIME: 07/24/2017 8:57 pm REASON FOR STUDY: sob COMPARISON: 07/22/2017. NUMBER OF VIEWS: One view. TECHNIQUE: Single frontal radiographic view of the chest acquired. LIMITATIONS: None. FINDINGS: LUNGS AND PLEURA: No opacities, masses or pneumothorax. No pleural effusion. MEDIASTINUM AND HILAR STRUCTURES: No masses. Contour normal. HEART AND VASCULAR STRUCTURES: Heart enlarged without failure. Normal vasculature. BONES: No acute findings. HARDWARE: None in the chest. OTHER: No other significant finding. IMPRESSION: HEART ENLARGED WITHOUT FAILURE. NO OTHER SIGNIFICANT RADIOGRAPHIC FINDING IN THE CHEST. TECHNICAL DOCUMENTATION: JOB ID: [id number] [employer]- All Rights Reserved
[2017-07-24 21:22] LABS: ABSOLUTE LYMPHOCYTES (AUTO) 2.5 10^3/uL (0.5-4.7); ABSOLUTE MONOCYTES (AUTO) 0.5 10^3/uL (0.1-1.4); BASOPHILS % (AUTO) 0.5 % (0-2); EOSINOPHILS % (AUTO) 0.4 % (0-6); HEMATOCRIT 40.1 % (37.9-51.0); HEMOGLOBIN 13.2 g/dL (13.5-17.0); LYMPHOCYTES % (AUTO) 34.7 % (13-45); MEAN CORPUSCULAR HEMOGLOBIN 29.9 pg (27.0-33.4); MEAN CORPUSCULAR HGB CONC 32.8 g/dL (32.0-36.0); MEAN CORPUSCULAR VOLUME 91 fl (80-97); MONOCYTES % (AUTO) 7.7 % (3-13); PLATELET COUNT 163 10^3/uL (150-450); RED CELL DISTRIBUTION WIDTH 15.5 % (11.5-14.0); SEGMENTED NEUTROPHILS % (AUTO) 56.7 % (42-78); TOTAL CELLS COUNTED % (AUTO) 100 %; WHITE BLOOD COUNT 7.1 10^3/uL (4.0-10.5)
--- NOTE | 2017-07-24 21:24 | ER Document Report ---
ED General - General Chief Complaint: Breathing Difficulty Stated Complaint: SHORTNESS OF BREATH Time Seen by Provider: 07/24/17 20:46 Mode of Arrival: Ambulatory Information source: Patient Notes: This is a 62-year-old man with a history of COPD, coronary artery disease ([place] in the past), chronic kidney disease, hypertension, HIV (left viral load nondetectable as per patient), peripheral vascular disease (status post right BKA, status post left AKA). The patient presents to the emergency room with shortness of breath and wheezing. He was brought in by EMS. He was given a dual neb and 125 mg of Solu-Medrol on transport. The patient was last in the emergency room 2 days ago and treated. He states he felt good and was discharged home. The shortness of breath slowly came back to the point where he called EMS tonight. TRAVEL OUTSIDE OF THE [place] IN LAST 30 DAYS: No - HPI Onset: Last week Onset/Duration: Gradual Quality of pain: No pain Severity: None Pain Level: Denies Associated symptoms: Chills, Fever, Shortness of breath Exacerbated by: Denies Relieved by: Denies Similar symptoms previously: No Recently seen / treated by doctor: No - Related Data Allergies/Adverse Reactions: No Known Allergies Allergy (Verified 07/22/17 12:45) Home Medications: Current Home Medications Abacavir Sulfate [Abacavir 300 mg Tablet] 300 mg PO DAILY 07/24/17 [History] Albuterol Sulfate [Proair HFA] 1 - 2 puff IH Q4 PRN 07/24/17 [History] Amlodipine Besylate [Norvasc 5 mg Tablet] 10 mg PO DAILY 07/24/17 [History] Beclomethasone Dipropionate [Qvar] 1 - 2 inh IH BID PRN 07/24/17 [History] Calcitriol 1 cap PO DAILY 07/24/17 [History] Carvedilol [Coreg 25 mg Tablet] 1 tab PO Q12 07/24/17 [History] Dolutegravir Sodium [Tivicay] 50 mg PO DAILY 07/24/17 [History] Furosemide [Lasix 80 mg Tablet] 80 mg PO QAM 07/24/17 [History] Hydralazine HCl 100 mg PO Q8H 07/24/17 [History] Isosorbide Mononitrate [Isosorbide Mononitrate ER] 120 mg PO DAILY 07/24/17 [ History] Lamivudine [Epivir] 5 ml PO DAILY 07/24/17 [History] Nitroglycerin [Nitrostat] 0.4 mg SL ASDIR PRN 07/24/17 [History] Pantoprazole Sodium [Protonix] 40 mg PO DAILY 07/24/17 [History] Pravastatin Sodium 40 mg PO QHS 07/24/17 [History] Prednisone [Sterapred Ds] 1 pkg PO ASDIR PRN 07/24/17 [History] Sodium Bicarbonate [Sodium Bicarbonate 650 mg Tablet] 2 tab PO TID 07/24/17 [ History] Warfarin Sodium 7.5 mg PO DAILY 07/24/17 [History] Past Medical History - General Information source: Patient - Social History Smoking Status: Never Smoker Cigarette use (# per day): No Chew tobacco use (# tins/day): No Frequency of alcohol use: None Drug Abuse: None Lives with: Family Family History: Reviewed & Not Pertinent, CAD, CVA, DM, Hyperlipidemia, Hypertension, Malignancy - Past Medical History Cardiac Medical History: Reports: Hx DVT, Hx Heart Attack, Hx Hypercholesterolemia, Hx Hypertension, Hx Peripheral Vascular Disease, Hx Pulmonary Embolism Pulmonary Medical History: Reports: Hx Bronchitis, Hx COPD, Hx Pneumonia Denies: Hx Asthma Neurological Medical History: Denies: Hx Seizures Endocrine Medical History: Reports: Hx Diabetes Mellitus Type 1, Hx Diabetes Mellitus Type 2 Renal/ Medical History: Reports: Hx Renal Insufficiency. 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, Reports Hx Musculoskeletal Trauma Psychiatric Medical History: Infectious Medical History: Reports: Hx HIV Past Surgical History: Reports: Hx Orthopedic Surgery - bilateral amputation, R BKA, L AKA, Hx Vascular Surgery - stents right chest, left arm clot removed, IVC filter, Other - Endoscopy - Immunizations Immunizations up to date: Yes Hx Diphtheria, Pertussis, Tetanus Vaccination: Yes Hx Pneumococcal Vaccination: 07/21/10 Review of Systems - Review of Systems Constitutional: denies: Chills, Fever EENT: No symptoms reported Cardiovascular: No symptoms reported Respiratory: See HPI Gastrointestinal: No symptoms reported Genitourinary: No symptoms reported Male Genitourinary: No symptoms reported Musculoskeletal: No symptoms reported Skin: No symptoms reported Hematologic/Lymphatic: No symptoms reported Neurological/Psychological: No symptoms reported Physical Exam - Vital signs Vitals: Pulse Ox 97 07/24/17 20:50 Notes: Physical exam: GENERAL: 62-year-old man, alert and oriented 3, moderate respiratory distress HEAD: Atraumatic, normocephalic. EYES: Pupils equal round and reactive to light, extraocular movements intact, sclera anicteric, conjunctiva are normal. ENT: TMs normal, nares patent, oropharynx clear without exudates. Dry mucous membranes. NECK: Normal range of motion, supple without obvious mass or JVD. LUNGS: Lateral wheezing HEART: Regular rate and rhythm without murmurs, rubs or gallops. ABDOMEN: Soft, normoactive bowel sounds. No tenderness to palpation. No guarding, no rebound. No masses appreciated. EXTREMITIES: Right lower extremity BKA, left lower extremity AKA. NEUROLOGICAL: Cranial nerves II through XII grossly intact. Normal speech. PSYCH: Normal mood, normal affect. SKIN: Warm, Dry, normal turgor, no rashes or lesions noted. Course - Re-evaluation Re-evalutation: 07/25/17 03:40 Note: The patient was given Solu-Medrol and duo nebs by EMS. Nebulizers were continued here. He was hypertensive and was treated for his blood pressure. He was also given IV Lasix and has had close to a liter output. On reassessment , is breathing much better and appears comfortable. I think the presentation of shortness of breath was a combination of his COPD, elevated blood pressure and mild fluid overload. I have advised him to follow-up with his primary care doctor. - Vital Signs Vital signs: Temp Pulse Resp BP Pulse Ox 97.9 F 85 16 160/90 H 99 07/24/17 21:05 07/25/17 02:15 07/25/17 02:15 07/25/17 02:15 07/25/17 02:15 - Laboratory Result Diagrams: 07/24/17 21:15 07/24/17 21:15 Laboratory results interpreted by me: 07/24/17 07/24/17 07/24/17 21:15 21:15 21:15 Hgb 13.2 L RDW 15.5 H PT 27.8 H Chloride 111 H Carbon Dioxide 20 L BUN 63 H Creatinine 6.29 H Est GFR ( Amer) 11 L Est GFR (Non-Af Amer) 9 L Calcium 7.8 L AST 71 H ALT 102 H - Diagnostic Test Radiology reviewed: Image reviewed, Reports reviewed - Chest x-ray shows cardiomegaly without signs of failure. - EKG Interpretation by Me Rate: Normal Rhythm: NSR - EKG shows normal sinus rhythm with a ventricular rate of 75, left anterior hemiblock, LVH, no significant change from previous. Discharge - Discharge Clinical Impression: COPD, Hypertension Condition: Stable Disposition: HOME, SELF-CARE Additional Instructions: Recommendations: Continue current medicines Continue the inhalers as needed. Follow-up with your primary care doctor as well as her specialist in [place]. Return to the emergency room for any worsening shortness of breath or concerns or getting worse per
[2017-07-24 21:38] LABS: ALANINE AMINOTRANSFERASE 102 U/L (21-72); ALKALINE PHOSPHATASE 107 U/L (38-126); ANION GAP 13 (5-19); ASPARTATE AMINO TRANSFERASE 71 U/L (17-59); BILIRUBIN,DIRECT 0.4 mg/dL (0.0-0.4); BILIRUBIN,TOTAL 0.5 mg/dL (0.2-1.3); BLOOD UREA NITROGEN 63 mg/dL (7-20); CALCIUM 7.8 mg/dL (8.4-10.2); CARBON DIOXIDE 20 mmol/L (22-30); CHLORIDE 111 mmol/L (98-107); CREATINE KINASE 109 U/L (55-170); GLUCOSE 105 mg/dL (75-110); POTASSIUM 4.2 mmol/L (3.6-5.0); SODIUM 143.5 mmol/L (137-145); TOTAL PROTEIN 6.8 g/dL (6.3-8.2)
[2017-07-24 21:50] LABS: CREATINE KINASE MB 1.76 ng/mL (<4.55)
[2017-07-24 21:55] LABS: TROPONIN I 0.039 ng/mL
[2017-07-24 23:34] LABS: A TYPE INFLUENZA AG NEGATIVE (NEGATIVE); B INFLUENZA AG NEGATIVE (NEGATIVE)
[2017-07-25 00:02] LABS: INTERNATIONAL RATION (INR) 2.45; PROTHROMBIN TIME 27.8 SEC (11.4-15.4)
[2017-07-25] MEDS ORDERED: FUROSEMIDE INJ/PF 40 MG/4 ML SDV IV ONE ×2 (00:07→01:24)
[2017-07-25] MEDS ORDERED: HYDRALAZINE HCL 50 MG TABLET PO ONE (01:23)
[2017-07-25 04:03] VITALS: BP 162/89
--- NOTE | 2017-07-25 09:20 | EKG REPORT ---
SEVERITY:- ABNORMAL ECG - SINUS RHYTHM LEFT ANTERIOR FASCICULAR BLOCK LEFT VENTRICULAR HYPERTROPHY : Confirmed by: Beulah Storm 25-Jul-2017 09:19:57
[2017-07-30] MEDS ORDERED: OXYCODONE-ACETAMINOPHEN 5-325 MG TABLET PO ONE (00:26)
== END 2017-07-25 04:50 | disposition home or self-care (01) ==
LOC: ER 20:39
DX: J44.9 Chronic obstructive pulmonary disease, unspecified (principal); I10 Essential (primary) hypertension; R06.02 Shortness of breath; R50.9 Fever, unspecified; I51.7 Cardiomegaly; I25.10 Atherosclerotic heart disease of native coronary artery without angina pectoris; I25.2 Old myocardial infarction; E11.51 Type 2 diabetes mellitus with diabetic peripheral angiopathy without gangrene; Z89.511 Acquired absence of right leg below knee; Z89.612 Acquired absence of left leg above knee; Z86.718 Personal history of other venous thrombosis and embolism; Z86.711 Personal history of pulmonary embolism; Z87.01 Personal history of pneumonia (recurrent); Z21 Asymptomatic human immunodeficiency virus [HIV] infection status
CPT/HCPCS: 93005; 96376; 94640 ×2; 99285; 96375; 96365; 36415; 82553; 82550; 85025; 85610; 80053; 84484; 87804; 71045; 93010; J3490 ×2; J1940; J3475; J7620

== ENCOUNTER 2017-07-27 13:00 | Inpatient (IN) | payer MEDICAID ==
[2017-07-28] MEDS ORDERED: NORMAL SALINE 1000 ML 1,000 ML IV PRN (00:46)
[2017-07-28] MEDS ORDERED: ACETAMINOPHEN 325 MG TABLET PO PRN (01:02)
[2017-07-28] MEDS ORDERED: LEVALBUTEROL HCL NEB 1.25 MG/3 ML AMPUL NEB PRN ×2 (01:02→15:30)
[2017-07-28] MEDS ORDERED: HYDRALAZINE HCL INJ/PF 20 MG/1 ML SDV IV PRN (01:03)
[2017-07-28] MEDS: IPRATROPIUM/ALBUTEROL 0.5-2.5 MG/3 ML AMPUL NEB SCH ×4 (01:45→20:47)
[2017-07-28 02:17] LABS: ABSOLUTE EOSINOPHILS # (AUTO) 0.1 10^3/uL (0.0-0.6); ABSOLUTE LYMPHOCYTES (AUTO) 2.3 10^3/uL (0.5-4.7); ABSOLUTE MONOCYTES (AUTO) 0.6 10^3/uL (0.1-1.4); ABSOLUTE NEUT (AUTO) 4.1 10^3/uL (1.7-8.2); BASOPHILS % (AUTO) 0.4 % (0-2); EOSINOPHILS % (AUTO) 0.9 % (0-6); HEMATOCRIT 31.9 % (37.9-51.0); HEMOGLOBIN 10.7 g/dL (13.5-17.0); LYMPHOCYTES % (AUTO) 32.2 % (13-45); MEAN CORPUSCULAR HEMOGLOBIN 30.2 pg (27.0-33.4); MEAN CORPUSCULAR HGB CONC 33.4 g/dL (32.0-36.0); MEAN CORPUSCULAR VOLUME 90 fl (80-97); MONOCYTES % (AUTO) 8.4 % (3-13); PLATELET COUNT 143 10^3/uL (150-450); RED BLOOD COUNT 3.53 10^6/uL (4.35-5.55); RED CELL DISTRIBUTION WIDTH 15.3 % (11.5-14.0); SEGMENTED NEUTROPHILS % (AUTO) 58.1 % (42-78); TOTAL CELLS COUNTED % (AUTO) 100 %; WHITE BLOOD COUNT 7.1 10^3/uL (4.0-10.5)
[2017-07-28 02:42] LABS: PROTHROMBIN TIME 31.7 SEC (11.4-15.4)
[2017-07-28 03:51] LABS: ABSOLUTE BASOPHILS # (AUTO) 0.1 10^3/uL (0.0-0.2); ABSOLUTE EOSINOPHILS # (AUTO) 0.1 10^3/uL (0.0-0.6); ABSOLUTE LYMPHOCYTES (AUTO) 2.3 10^3/uL (0.5-4.7); ABSOLUTE MONOCYTES (AUTO) 0.6 10^3/uL (0.1-1.4); ABSOLUTE NEUT (AUTO) 4.5 10^3/uL (1.7-8.2); BASOPHILS % (AUTO) 0.7 % (0-2); EOSINOPHILS % (AUTO) 1.5 % (0-6); HEMATOCRIT 35.3 % (37.9-51.0); HEMOGLOBIN 11.6 g/dL (13.5-17.0); LYMPHOCYTES % (AUTO) 30.3 % (13-45); MEAN CORPUSCULAR HEMOGLOBIN 29.7 pg (27.0-33.4); MEAN CORPUSCULAR HGB CONC 32.9 g/dL (32.0-36.0); MEAN CORPUSCULAR VOLUME 90 fl (80-97); MONOCYTES % (AUTO) 7.8 % (3-13); PLATELET COUNT 158 10^3/uL (150-450); RED BLOOD COUNT 3.91 10^6/uL (4.35-5.55); RED CELL DISTRIBUTION WIDTH 15.4 % (11.5-14.0); SEGMENTED NEUTROPHILS % (AUTO) 59.7 % (42-78); TOTAL CELLS COUNTED % (AUTO) 100 %; WHITE BLOOD COUNT 7.5 10^3/uL (4.0-10.5)
[2017-07-28] MEDS: METHYLPREDNISOLONE INJ 40 MG/1 ML SDV IV SCH ×2 (05:23→13:56)
[2017-07-28 06:13] LABS: A TYPE INFLUENZA AG NEGATIVE (NEGATIVE); B INFLUENZA AG NEGATIVE (NEGATIVE)
[2017-07-28 07:05] LABS: INTERNATIONAL RATION (INR) 2.63; PROTHROMBIN TIME 29.4 SEC (11.4-15.4)
--- NOTE | 2017-07-28 07:07 | ER Document Report ---
ED General - General Mode of Arrival: Medic Information source: Patient Notes: 62-year-old male extensive medical history HIV chronic kidney disease presents with complaints of shortness of breath. Patient notes he has been short of breath for the past week, he has a history of PE HIV CHF COPD. Patient was found by EMS to be satting 90% on room air, he has been here twice this week has been discharged home. Patient was given 2 DuoNeb's by EMS and continued to wheeze. TRAVEL OUTSIDE OF THE [place] IN LAST 30 DAYS: No - HPI Onset: Last week Onset/Duration: Persistent, Worse Quality of pain: Achy Severity: Mild Pain Level: 1 Associated symptoms: Body/muscle aches, Nonproductive cough, Shortness of breath Exacerbated by: Walking Relieved by: Denies Similar symptoms previously: Yes Recently seen / treated by doctor: Yes - Related Data Allergies/Adverse Reactions: No Known Allergies Allergy (Verified 07/22/17 12:45) Past Medical History - Social History Smoking Status: Current Every Day Smoker Cigarette use (# per day): Yes Chew tobacco use (# tins/day): No Smoking Education Provided: No Family History: Reviewed & Not Pertinent, CAD, CVA, DM, Hyperlipidemia, Hypertension, Malignancy - Past Medical History Cardiac Medical History: Reports: Hx Congestive Heart Failure, Hx DVT, Hx Heart Attack, Hx Hypercholesterolemia, Hx Hypertension, Hx Peripheral Vascular Disease , Hx Pulmonary Embolism Pulmonary Medical History: Reports: Hx Bronchitis, Hx COPD, Hx Pneumonia Denies: Hx Asthma Neurological Medical History: Denies: Hx Seizures Endocrine Medical History: Reports: Hx Diabetes Mellitus Type 1, Hx Diabetes Mellitus Type 2 Renal/ Medical History: Reports: Hx Renal Insufficiency. 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, Reports Hx Musculoskeletal Trauma Psychiatric Medical History: Infectious Medical History: Reports: Hx HIV Past Surgical History: Reports: Hx Orthopedic Surgery - bilateral amputation, R BKA, L AKA, Hx Vascular Surgery - stents right chest, left arm clot removed, IVC filter, Other - Endoscopy - Immunizations Immunizations up to date: Yes Hx Diphtheria, Pertussis, Tetanus Vaccination: Yes Hx Pneumococcal Vaccination: 07/21/10 Review of Systems - Review of Systems Notes: REVIEW OF SYSTEMS: CONSTITUTIONAL : Denies fever, chills, or sweats. Denies recent illness. EENT: Denies eye, ear, throat, or mouth pain or symptoms. Denies nasal or sinus congestion or discharge. Denies throat, tongue, or mouth swelling or difficulty swallowing. CARDIOVASCULAR: Denies chest pain. Denies palpitations or racing or irregular heart beat. Denies ankle edema. RESPIRATORY: Admits to difficulty breathing admits shortness of breath GASTROINTESTINAL: Denies abdominal pain or distention. Denies nausea, vomiting , or diarrhea. Denies blood in vomitus, stools, or per rectum. Denies black, tarry stools. Denies constipation. GENITOURINARY: Denies difficulty urinating, painful urination, burning, frequency, blood in urine, or discharge. MUSCULOSKELETAL: Denies back or neck pain or stiffness. Denies joint pain or swelling. SKIN: Denies rash, lesions or sores. HEMATOLOGIC : Denies easy bruising or bleeding. LYMPHATIC: Denies swollen, enlarged glands. NEUROLOGICAL: Denies confusion or altered mental status. Denies passing out or loss of consciousness. Denies dizziness or lightheadedness. Denies headache. Denies weakness or paralysis or loss of use of either side. Denies problems with gait or speech. Denies sensory loss, numbness, or tingling. Denies seizures. PSYCHIATRIC: Denies anxiety or stress. Denies depression, suicidal ideation, or homicidal ideation. ALL OTHER SYSTEMS REVIEWED AND NEGATIVE. Dictation was performed using [employer] voice recognition software PHYSICAL EXAMINATION: GENERAL: Well-appearing, well-nourished and in moderate respiratory acute distress. HEAD: Atraumatic, normocephalic. EYES: Pupils equal round and reactive to light, extraocular movements intact, sclera anicteric, conjunctiva are normal. ENT: Nares patent, oropharynx clear without exudates. Moist mucous membranes. NECK: Normal range of motion, supple without lymphadenopathy LUNGS: Coarse inspiratory expiratory wheezing HEART: Tachycardic ABDOMEN: Soft, nontender, nondistended abdomen. No guarding, no rebound. No masses appreciated. Musculoskeletal: Lower extremity amputations NEUROLOGICAL: Cranial nerves grossly intact. Normal speech, normal gait. Normal sensory, motor exams PSYCH: Normal mood, normal affect. SKIN: Warm, Dry, normal turgor, no rashes or lesions noted. Physical Exam - Vital signs Vitals: Pulse 77 07/27/17 19:00 Course - Re-evaluation Re-evalutation: 07/28/17 07:21 Patient's presentation is consistent with COPD versus CHF exacerbation, he was diagnosed as CHF exacerbation a few days prior was given Lasix and its did not improve his symptoms. Patient is wheezing extensively, he was immediately given further breathing treatments, his O2 saturation did improve but was placed on 4 L nasal cannula to do so. Given patient's presentation I will admit him to the hospitalist service, they did request a ventilation perfusion scan which has been ordered as well - Vital Signs Vital signs: Temp Pulse Resp BP Pulse Ox 98.5 F 80 16 159/87 H 96 07/28/17 03:00 07/28/17 03:00 07/28/17 03:00 07/28/17 03:00 07/28/17 03:00 - Laboratory Result Diagrams: 07/28/17 01:17 07/27/17 11:56 Laboratory results interpreted by me: 07/27/17 07/27/17 11:56 15:32 RBC 3.91 L Hgb 11.6 L Hct 35.3 L RDW 15.4 H PT 31.7 H - Diagnostic Test Radiology reviewed: Image reviewed, Reports reviewed Discharge - Discharge Clinical Impression: Acute on chronic combined systolic and diastolic congestive heart failure, COPD exacerbation Condition: Fair Disposition: ADMITTED INPATIENT Admitting Provider: Hospitalist Unit Admitted: Telemetry
[2017-07-28] MEDS ORDERED: FUROSEMIDE INJ/PF 20 MG/2 ML SDV IV ONE (08:15)
--- NOTE | 2017-07-28 08:50 | Physician Advisory Note ---
Physician Advisor ProgressNote .: Pursuant to the plan for [facility], I have reviewed the medical record for this patient. Physician Advisor Statement: (H&P not yet available for review - please forgive the mention of dx.s that are already being noted in H&P.) Please consider documenting, if you agree: 1. ? - "Acute Hypoxemic REspiratory FAilure, evidenced by requiring '4L O2 in ED to improve O2 sat', with 'mod acute resp distress' in ED" - Has there been an O2 sat <90% on RA, or <96% on 2L? If so, please mention it. 2. "Acute on Chronic systolic & diastolic CHF, EF 25-30%" 3. "Acute exac COPD" 4. Medical necessity: see below Status: 62yo Medicaid pt has spent 1 night already in ED under tx, & sounds highly likely to require at least a 2nd [place] of hospital care & monitoring. Has already failed outpt mgmt via the ED this week w/2 visits. If he cannot be safely d/c'd later today, please document ongoing reasons & consider change to Inpatient status before end of day. Thanks! CK
--- NOTE | 2017-07-28 08:56 | RADIOLOGY REPORT (SQ) ---
EXAM DESCRIPTION: NM LUNG VENT/PERF SCAN COMPLETED DATE/TIME: 07/28/2017 8:10 am REASON FOR STUDY: dyspnea COMPARISON: None. RADIONUCLIDE AND DOSE: 5.41 millicuries TC-99m MAA Intravenous 31.4 millicuries TC-99m DTPA Inhaled aerosol TECHNIQUE: Eight views of the lungs acquired post ventilation of DTPA aerosol. Eight matching views of the lungs acquired following injection of MAA. LIMITATIONS: None. FINDINGS: VENTILATION: Symmetric and homogeneous distribution of DTPA aerosol during ventilatory pha se. No significant areas of photopenia. PERFUSION: Perfusion images with normal homogenous activity and no wedge-shaped or segmental defects. No ventilation-perfusion mismatches. OTHER: No other significant finding. IMPRESSION: NORMAL VENTILATION-PERFUSION LUNG SCAN. NEGATIVE FOR PULMONARY EMBOLI. TECHNICAL DOCUMENTATION: JOB ID: [id number] [employer]- All Rights Reserved
[2017-07-28 09:22] LABS: INTERNATIONAL RATION (INR) 2.29; PROTHROMBIN TIME 26.4 SEC (11.4-15.4)
[2017-07-28 09:34] LABS: ANION GAP 11 (5-19); BLOOD UREA NITROGEN 56 mg/dL (7-20); CALCIUM 7.2 mg/dL (8.4-10.2); CARBON DIOXIDE 21 mmol/L (22-30); CHLORIDE 107 mmol/L (98-107); GLUCOSE 221 mg/dL (75-110); POTASSIUM 4.7 mmol/L (3.6-5.0); SODIUM 138.9 mmol/L (137-145)
--- NOTE | 2017-07-28 09:51 | RADIOLOGY REPORT (SQ) ---
EXAM DESCRIPTION: CHEST PA/LAT COMPLETED DATE/TIME: 07/28/2017 2:58 am REASON FOR STUDY: SOB COMPARISON: None. NUMBER OF VIEWS: Two views. TECHNIQUE: Frontal and lateral radiographic views of the chest acquired. LIMITATIONS: None. FINDINGS: LUNGS AND PLEURA: No opacities, masses or pneumothorax. No pleural effusion. MEDIASTINUM AND HILAR STRUCTURES: No masses or contour abnormality. HEART AND VASCULAR STRUCTURES: Cardiac enlargement. Vascular congestion. BONES: No acute findings. HARDWARE: None in the chest. OTHER: No other significant finding. IMPRESSION: CARDIAC ENLARGEMENT. VASCULAR CONGESTION. TECHNICAL DOCUMENTATION: JOB ID: [id number] [employer]- All Rights Reserved
[2017-07-28] MEDS ORDERED: WARFARIN SODIUM 7.5 MG TABLET PO SCH (10:00)
[2017-07-28] MEDS ORDERED: GUAIFENESIN 600 MG TABLET.SA PO SCH (10:00)
[2017-07-28 10:59] LABS: BLOOD UREA NITROGEN 55 mg/dL (7-20); CALCIUM 7.3 mg/dL (8.4-10.2); GLUCOSE 99 mg/dL (75-110); POTASSIUM 4.8 mmol/L (3.6-5.0)
[2017-07-28 11:00] LABS: ANION GAP 11 (5-19); CARBON DIOXIDE 21 mmol/L (22-30); CHLORIDE 109 mmol/L (98-107); SODIUM 140.6 mmol/L (137-145)
[2017-07-28 11:01] LABS: CREATINE KINASE MB 1.32 ng/mL (<4.55)
[2017-07-28 11:02] LABS: TROPONIN I 0.041 ng/mL
[2017-07-28 11:03] LABS: BLOOD UREA NITROGEN 51 mg/dL (7-20); CALCIUM 7.2 mg/dL (8.4-10.2); GLUCOSE 92 mg/dL (75-110); POTASSIUM 4.3 mmol/L (3.6-5.0)
[2017-07-28 11:04] LABS: CARBON DIOXIDE 20 mmol/L (22-30); CHLORIDE 110 mmol/L (98-107)
[2017-07-28 11:05] LABS: ANION GAP 12 (5-19); SODIUM 141.9 mmol/L (137-145)
[2017-07-28 11:06] LABS: ALANINE AMINOTRANSFERASE 101 U/L (21-72); ALBUMIN 3.4 g/dL (3.5-5.0); ALKALINE PHOSPHATASE 85 U/L (38-126); ASPARTATE AMINO TRANSFERASE 81 U/L (17-59); BILIRUBIN,DIRECT 0.1 mg/dL (0.0-0.4); BILIRUBIN,TOTAL 0.1 mg/dL (0.2-1.3); CREATINE KINASE 64 U/L (55-170); TOTAL PROTEIN 5.7 g/dL (6.3-8.2)
--- NOTE | 2017-07-28 14:38 | PDOC H&P ---
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 This is actually his third evaluation by the emergency department for the same complaint this week. He was previously placed on a prednisone taper and discharged to home. Today, he woke with worsening dyspnea that did not improve after nebulizer treatments prompting him to call EMS who found him to be hypoxic in the 80s. He was placed on BiPAP and provided Solu-Medrol and neb treatments. Evaluation in the ER revealed a creatinine of 5.7 with a normal potassium and a chest x-ray demonstrating cardiac enlargement and vascular congestion. The patient is now maintaining saturations on supplemental oxygen via nasal cannula. He is referred to the hospitalist service for admission. Past Medical History Cardiac Medical History: Reports: Congestive Heart Failure, DVT, Myocardial Infarction, Hyperlipidema, Hypertension, Peripheral Vascular Disease, Pulmonary Embolism Pulmonary Medical History: Reports: Bronchitis, Chronic Obstructive Pulmonary Disease (COPD), Pneumonia Denies: Asthma Neurological Medical History: Denies: Hemorrhagic CVA, Ischemic CVA, Migraine, Seizures Endocrine Medical History: Reports: Diabetes Mellitus Type 1, Diabetes Mellitus Type 2 Renal/ Medical History: Reports: Chronic Kidney Disease Malignancy Medical History: Reports: None GI Medical History: Reports: Gastroesophageal Reflux Disease Musculoskeltal Medical History: Reports: Arthritis Skin Medical History: Reports: None Psychiatric Medical History: Reports: None Hematology: Denies: Anemia Infectious Medical History: Reports: HIV Past Surgical History Past Surgical History: Reports: Orthopedic Surgery - bilateral amputation, R BKA , L AKA, Vascular Surgery - stents right chest, left arm clot removed, IVC filter, Other - Endoscopy Social History Information Source: Patient Lives with: Alone Smoking Status: Current Every Day Smoker Frequency of Alcohol Use: None Hx Recreational Drug Use: Yes Drugs: Cocaine Hx Prescription Drug Abuse: No - Advance Directive Resuscitation Status: Full Code Family History Family History: Reviewed & Not Pertinent, CAD, CVA, DM, Hyperlipidemia, Hypertension, Malignancy Parental Family History Reviewed: Yes Children Family History Reviewed: Yes Sibling(s) Family History Reviewed.: Yes Medication/Allergy Home Medications: Abacavir Sulfate [Abacavir 300 mg Tablet] 600 mg PO DAILY 07/24/17 Albuterol Sulfate [Proair HFA] 2 puff IH Q6HP PRN 07/24/17 Amlodipine Besylate [Norvasc 5 mg Tablet] 5 mg PO DAILY 07/24/17 Beclomethasone Dipropionate [Qvar] 1 puff IH BID 07/24/17 Calcitriol 0.25 mcg PO DAILY 07/24/17 Carvedilol [Coreg 25 mg Tablet] 25 mg PO Q12 07/24/17 Dolutegravir Sodium [Tivicay] 50 mg PO DAILY 07/24/17 Furosemide [Lasix 80 mg Tablet] 80 mg PO QAM 07/24/17 Hydralazine HCl 100 mg PO Q8 07/24/17 Isosorbide Mononitrate [Isosorbide Mononitrate ER] 120 mg PO DAILY 07/24/17 Lamivudine [Epivir] 5 ml PO DAILY 07/24/17 Nitroglycerin [Nitrostat] 0.4 mg SL Q5MP PRN 07/24/17 Pantoprazole Sodium [Protonix] 40 mg PO DAILY 07/24/17 Pravastatin Sodium 40 mg PO QHS 07/24/17 Sodium Bicarbonate [Sodium Bicarbonate 650 mg Tablet] 650 mg PO BID 07/24/17 Warfarin Sodium 7.5 mg PO DAILY 07/24/17 Allergies/Adverse Reactions: No Known Allergies Allergy (Verified 07/22/17 12:45) Review of Systems Constitutional: ABSENT: chills, fever(s), headache(s), weight gain, weight loss Eyes: ABSENT: visual disturbances Ears: ABSENT: hearing changes Cardiovascular: PRESENT: as per HPI, dyspnea on exertion, orthropnea. ABSENT: chest pain, edema, palpitations Respiratory: PRESENT: cough, dyspnea. ABSENT: hemoptysis Gastrointestinal: ABSENT: abdominal pain, constipation, diarrhea, hematemesis, hematochezia, nausea, vomiting Genitourinary: ABSENT: dysuria, hematuria Musculoskeletal: ABSENT: joint swelling Integumentary: ABSENT: rash, wounds Neurological: ABSENT: abnormal gait, abnormal speech, confusion, dizziness, focal weakness, syncope Psychiatric: ABSENT: anxiety, depression, homidical ideation, suicidal ideation Endocrine: ABSENT: cold intolerance, heat intolerance, polydipsia, polyuria Hematologic/Lymphatic: ABSENT: easy bleeding, easy bruising Physical Exam Vital Signs: Temp Pulse Resp BP Pulse Ox 98.5 F 84 16 159/87 H 96 07/28/17 03:00 07/28/17 13:22 07/28/17 13:22 07/28/17 03:00 07/28/17 13:22 Intake & Output 07/27/17 07/28/17 07/29/17 06:59 06:59 06:59 Intake Total 800 Output Total 300 Balance 500 Weight 76.6 kg General appearance: PRESENT: no acute distress, well-developed, well-nourished Head exam: PRESENT: atraumatic, normocephalic Eye exam: PRESENT: conjunctiva pink, EOMI, PERRLA. ABSENT: scleral icterus Ear exam: PRESENT: normal external ear exam Mouth exam: PRESENT: moist, tongue midline Neck exam: ABSENT: carotid bruit, JVD, lymphadenopathy, thyromegaly Respiratory exam: PRESENT: prolonged expiratory phas, wheezes. ABSENT: crackles , rales, rhonchi Cardiovascular exam: PRESENT: RRR. ABSENT: diastolic murmur, rubs, systolic murmur Pulses: PRESENT: normal radial pulses, normal femoral pulses Vascular exam: PRESENT: normal capillary refill GI/Abdominal exam: PRESENT: normal bowel sounds, soft. ABSENT: distended, guarding, mass, organolmegaly, rebound, tenderness Rectal exam: PRESENT: deferred Extremities exam: PRESENT: full ROM, other - Bilateral leg amputations. ABSENT : calf tenderness, clubbing, pedal edema Neurological exam: PRESENT: alert, awake, oriented to person, oriented to place , oriented to time, oriented to situation, CN II-XII grossly intact. ABSENT: motor sensory deficit Psychiatric exam: PRESENT: appropriate affect, normal mood. ABSENT: homicidal ideation, suicidal ideation Skin exam: PRESENT: dry, intact, warm. ABSENT: cyanosis, rash Results Laboratory Results: 07/28/17 01:17 07/28/17 08:54 07/28/17 07/28/17 01:17 08:54 WBC 7.1 RBC 3.53 L Hgb 10.7 L Hct 31.9 L MCV 90 MCH 30.2 MCHC 33.4 RDW 15.3 H Plt Count 143 L Seg Neutrophils % 58.1 Lymphocytes % 32.2 Monocytes % 8.4 Eosinophils % 0.9 Basophils % 0.4 Absolute Neutrophils 4.1 Absolute Lymphocytes 2.3 Absolute Monocytes 0.6 Absolute Eosinophils 0.1 Absolute Basophils 0.0 Sodium 138.9 Potassium 4.7 Chloride 107 Carbon Dioxide 21 L Anion Gap 11 BUN 56 H Creatinine 5.80 H Est GFR ( Amer) 12 L Est GFR (Non-Af Amer) 10 L Glucose 221 H Calcium 7.2 L 07/28/17 08:54 NT-Pro-B Natriuret Pep [id number] H Impressions: Chest X-Ray 07/27/17 00:00 IMPRESSION: CARDIAC ENLARGEMENT. VASCULAR CONGESTION. Lung Scan-VQ NM 07/27/17 00:00 IMPRESSION: NORMAL VENTILATION-PERFUSION LUNG SCAN. NEGATIVE FOR PULMONARY EMBOLI. Assessment & Plan - Diagnosis (1) Acute respiratory failure with hypoxia Is this a current diagnosis for this admission?: Yes Plan: The patient was initially found to be hypoxic at 80% on room air wearing BiPAP to maintain saturations. He was provided nebulizer treatments by the emergency department as well as 125 mg of IV Solu-Medrol with improved respiratory status. The patient is now maintaining his oxygen saturations on supplemental oxygen via nasal cannula at 4 L/min He will be admitted to the floor on continuous cardiac telemetry. Supplemental oxygen via nasal cannula to keep sats greater than 91%. BiPAP nightly and as needed. Scheduled duo nebs with Xopenex as needed for shortness of breath, wheeze. IV Solu-Medrol every 8 hours. Mucinex twice daily. The patient is afebrile with a normal WBC and no evidence of infiltrates on chest x-ray; no indications for antibiotic therapy at this time. (2) Acute on chronic combined systolic and diastolic congestive heart failure Is this a current diagnosis for this admission?: Yes Plan: Secondary to [employer] downtime, the patient's previous proBNP and echocardiogram were unavailable. Additionally, the patient's previous creatinine and GFR were unavailable for review. The patient was a poor historian and unable to provide details on these diagnoses. I was concerned that he may be having an acute worsening of his kidney failure. Therefore, his furosemide was held and the patient was placed on a cardiac diet , strict I's and O's, and daily weights. (3) Anticoagulated on Coumadin Is this a current diagnosis for this admission?: Yes Plan: PT/INR are appropriate. We will continue the patient's home dose of Coumadin 7.5 mg daily and monitor INR daily. (4) COPD exacerbation Is this a current diagnosis for this admission?: Yes Plan: The patient has been seen in the emergency department 2 other times for a similar complaint. He was previously diagnosed with a COPD exacerbation and placed on a steroid taper. Therefore will continue with IV Solu-Medrol. Remaining plan as above. (5) Chronic kidney disease, stage V (very severe) Is this a current diagnosis for this admission?: Yes Plan: The patient's creatinine on admission was noted to be 5.57. His previous kidney function is unavailable for review secondary to [employer] downtime. The patient's potassium is normal at 4.8 and he appears to be euvolemic. Fortunately, the patient is a poor historian and does not know his baseline kidney function. We will hold furosemide tonight and repeat chemistry in the a.m. He is placed on normal saline at 30 mL's per hour. He is placed on a cardiac diet with strict I's and O's and daily weights. (6) Hyperlipidemia Qualifiers: Hyperlipidemia type: unspecified Qualified Code(s): E78.5 - Hyperlipidemia , unspecified Is this a current diagnosis for this admission?: Yes Plan: We will continue the patient's home medications; atorvastatin. (7) Hypertensive urgency Is this a current diagnosis for this admission?: Yes Plan: IV hydralazine as needed for pressures. Will resume the patient's home medications once reconciliation is complete. (8) HIV (human immunodeficiency virus infection) Is this a current diagnosis for this admission?: Yes Plan: To continue his HAART therapy. (9) Tobacco use Is this a current diagnosis for this admission?: Yes Plan: Smoking cessation is encouraged and nicotine replacement therapy is provided - Time Time Spent: Greater than 70 Minutes Smoking Cessation Education: 3 to 10 minutes Medications reviewed and adjusted accordingly: Yes
--- NOTE | 2017-07-28 14:52 | PDOC PROGRESS REPORT ---
Subjective Progress Note for:: 07/28/17 Subjective:: The patient is seen on morning rounds for a follow-up of acute respiratory failure secondary to CHF and COPD exacerbations. He is found sitting upright in bed on room air eating his breakfast. He is very upset about his breakfast, stating that he is not been provided enough to eat. He states that he took off his oxygen sometime during the middle of the night. He does complain of continued dyspnea and orthopnea that is worse than his baseline but declines to put the oxygen back on at this time. He denies fever, chills, chest pain, cough. Reason For Visit: ACUTE RESPIRATORY FAILURE WITH HYPOXIA, COPD Physical Exam Vital Signs: Temp Pulse Resp BP Pulse Ox 98.5 F 84 16 159/87 H 96 07/28/17 03:00 07/28/17 13:22 07/28/17 13:22 07/28/17 03:00 07/28/17 13:22 Intake & Output 07/27/17 07/28/17 07/29/17 06:59 06:59 06:59 Intake Total 800 Output Total 300 Balance 500 Weight 76.6 kg General appearance: PRESENT: no acute distress, well-developed, well-nourished Head exam: PRESENT: atraumatic, normocephalic Eye exam: PRESENT: conjunctiva pink, EOMI, PERRLA. ABSENT: scleral icterus Ear exam: PRESENT: normal external ear exam Mouth exam: PRESENT: moist, tongue midline Neck exam: ABSENT: carotid bruit, JVD, lymphadenopathy, thyromegaly Respiratory exam: PRESENT: crackles - Bibasilar, symmetrical, unlabored. ABSENT : rales, rhonchi, wheezes Cardiovascular exam: PRESENT: RRR. ABSENT: diastolic murmur, rubs, systolic murmur Pulses: PRESENT: normal dorsalis pedis pul Vascular exam: PRESENT: normal capillary refill GI/Abdominal exam: PRESENT: normal bowel sounds, soft. ABSENT: distended, guarding, mass, organolmegaly, rebound, tenderness Rectal exam: PRESENT: deferred Extremities exam: PRESENT: full ROM, other - Bilateral leg amputations. ABSENT : calf tenderness, clubbing, pedal edema Neurological exam: PRESENT: alert, awake, oriented to person, oriented to place , oriented to time, oriented to situation, CN II-XII grossly intact. ABSENT: motor sensory deficit Psychiatric exam: PRESENT: appropriate affect, normal mood. ABSENT: homicidal ideation, suicidal ideation Skin exam: PRESENT: dry, intact, warm. ABSENT: cyanosis, rash Results Laboratory Results: 07/28/17 01:17 07/28/17 08:54 07/28/17 07/28/17 01:17 08:54 WBC 7.1 RBC 3.53 L Hgb 10.7 L Hct 31.9 L MCV 90 MCH 30.2 MCHC 33.4 RDW 15.3 H Plt Count 143 L Seg Neutrophils % 58.1 Lymphocytes % 32.2 Monocytes % 8.4 Eosinophils % 0.9 Basophils % 0.4 Absolute Neutrophils 4.1 Absolute Lymphocytes 2.3 Absolute Monocytes 0.6 Absolute Eosinophils 0.1 Absolute Basophils 0.0 Sodium 138.9 Potassium 4.7 Chloride 107 Carbon Dioxide 21 L Anion Gap 11 BUN 56 H Creatinine 5.80 H Est GFR ( Amer) 12 L Est GFR (Non-Af Amer) 10 L Glucose 221 H Calcium 7.2 L 07/28/17 08:54 NT-Pro-B Natriuret Pep [id number] H Impressions: Chest X-Ray 07/27/17 00:00 IMPRESSION: CARDIAC ENLARGEMENT. VASCULAR CONGESTION. Lung Scan-VQ NM 07/27/17 00:00 IMPRESSION: NORMAL VENTILATION-PERFUSION LUNG SCAN. NEGATIVE FOR PULMONARY EMBOLI. Assessment & Plan - Diagnosis (1) Acute respiratory failure with hypoxia Is this a current diagnosis for this admission?: Yes Plan: Improved. Although, the patient is clinically improved, I am concerned that he is not yet ready to discharge as he has previously failed outpatient therapy. Continue to observe him overnight and anticipate discharge in the a.m. The patient was initially found to be hypoxic at 80% on room air wearing BiPAP to maintain saturations. He was provided nebulizer treatments by the emergency department as well as 125 mg of IV Solu-Medrol with improved respiratory status. The patient is now maintaining his oxygen saturations on supplemental oxygen via nasal cannula at 4 L/min A VQ scan has ruled out pulmonary embolus. He will be admitted to the floor on continuous cardiac telemetry. Supplemental oxygen via nasal cannula to keep sats greater than 91%. BiPAP nightly and as needed. Scheduled duo nebs with Xopenex as needed. We will begin weaning steroids today. Will discontinue Mucinex. We will begin providing diuresis with IV Lasix. The patient is afebrile with a normal WBC and no evidence of infiltrates on chest x-ray; no indications for antibiotic therapy at this time. (2) Acute on chronic combined systolic and diastolic congestive heart failure Is this a current diagnosis for this admission?: Yes Plan: The patient was noted to have vascular congestion by x-ray with a proBNP of greater than 31,000 and crackles to the bilateral lower lung fisher. Echocardiogram completed at his previous admission on 07/23/16 showed an ejection fraction of 25-30% with severe systolic dysfunction and mild diastolic dysfunction. He is placed on a cardiac diet with strict I's and O's and daily weights. We will begin diuresing with IV furosemide. Patient's room air oxygen saturations are now 92% while at rest. Anticipate that the patient will be stable for discharge home in the morning. (3) COPD exacerbation Is this a current diagnosis for this admission?: Yes Plan: The patient has been seen in the emergency department 2 other times for a similar complaint. He was previously diagnosed with a COPD exacerbation and placed on a steroid taper. The patient denies a cough and therefore will discontinue Mucinex today. We will begin weaning steroids. Remaining plan as above. (4) Chronic kidney disease, stage V (very severe) Is this a current diagnosis for this admission?: Yes Plan: Stable. The patient's creatinine on admission was noted to be 5.57, which appears to be close to his baseline. Potassium is normal and he appears to be euvolemic. We will resume the patient's home medications; Calcitrol, sodium bicarb He is placed on a cardiac diet with strict I's and O's and daily weights. (5) Hyperlipidemia Qualifiers: Hyperlipidemia type: unspecified Qualified Code(s): E78.5 - Hyperlipidemia , unspecified Is this a current diagnosis for this admission?: Yes Plan: We will continue the patient's home medications; atorvastatin. (6) Hypertensive urgency Is this a current diagnosis for this admission?: Yes Plan: His home medications are resumed; carvedilol, hydralazine, isosorbide Continue IV hydralazine as needed for pressures. (7) HIV (human immunodeficiency virus infection) Is this a current diagnosis for this admission?: Yes Plan: To continue his HAART therapy. (8) Tobacco use Is this a current diagnosis for this admission?: Yes Plan: Smoking cessation is encouraged and nicotine replacement therapy is provided (9) Anticoagulated on Coumadin Is this a current diagnosis for this admission?: Yes Plan: PT/INR are appropriate. We will continue the patient's home dose of Coumadin 7.5 mg daily and monitor INR daily. - Time Time Spent with patient: 25-34 minutes Smoking Cessation Education: 3 to 10 minutes Medications reviewed and adjusted accordingly: Yes Anticipated discharge: Home Within: within 24 hours - Inpatient Certification Based on my medical assessment, after consideration of the patient's comorbidities, presenting symptoms, or acuity I expect that the services needed warrant INPATIENT care.: Yes I certify that my determination is in accordance with my understanding of Medicare's requirements for reasonable and necessary INPATIENT services [42 CFR 412.3e].: Yes Medical Necessity: Failure to Improve With Outpatient Therapy, Need Close Monitoring Due to Risk of Patient Decompensation
[2017-07-28] MEDS ORDERED: NICOTINE 21 MG/24 HR PATCH.TD24 TD ONE (15:45)
[2017-07-28] MEDS: SODIUM BICARBONATE 650 MG TABLET PO SCH (17:12)
[2017-07-28] MEDS: FUROSEMIDE INJ/PF 40 MG/4 ML SDV IV SCH (17:13)
[2017-07-28] MEDS ORDERED: METHYLPREDNISOLONE INJ 40 MG/1 ML SDV IV SCH (22:00)
[2017-07-28] MEDS ORDERED: (PENDING PHARMACY ID) (Pravastatin Sodium [Pravastatin Sodium] 40 MG) PO SCH (22:00)
[2017-07-28] MEDS ORDERED: (PENDING PHARMACY ID) (Hydralazine Hcl [Hydralazine Hcl] 100 MG) PO SCH (22:00)
[2017-07-28] MEDS: WARFARIN SODIUM 7.5 MG TABLET PO SCH (22:48)
[2017-07-28] MEDS: CARVEDILOL 12.5 MG TABLET PO SCH (22:48)
[2017-07-28] MEDS: HYDRALAZINE HCL 50 MG TABLET PO SCH (22:49)
[2017-07-29] MEDS: IPRATROPIUM/ALBUTEROL 0.5-2.5 MG/3 ML AMPUL NEB SCH ×3 (02:02→16:13)
[2017-07-29] MEDS: HYDRALAZINE HCL 50 MG TABLET PO SCH ×3 (06:51→21:06)
[2017-07-29] MEDS: FUROSEMIDE INJ/PF 40 MG/4 ML SDV IV SCH ×2 (06:51→17:50)
[2017-07-29 07:05] LABS: HEMATOCRIT 32.2 % (37.9-51.0); HEMOGLOBIN 10.7 g/dL (13.5-17.0); MEAN CORPUSCULAR HEMOGLOBIN 30.1 pg (27.0-33.4); MEAN CORPUSCULAR HGB CONC 33.3 g/dL (32.0-36.0); MEAN CORPUSCULAR VOLUME 90 fl (80-97); PLATELET COUNT 151 10^3/uL (150-450); RED BLOOD COUNT 3.56 10^6/uL (4.35-5.55); RED CELL DISTRIBUTION WIDTH 15.2 % (11.5-14.0); WHITE BLOOD COUNT 6.6 10^3/uL (4.0-10.5)
[2017-07-29 07:14] LABS: INTERNATIONAL RATION (INR) 2.69; PROTHROMBIN TIME 29.9 SEC (11.4-15.4)
[2017-07-29 07:30] LABS: ANION GAP 13 (5-19); BLOOD UREA NITROGEN 65 mg/dL (7-20); CARBON DIOXIDE 19 mmol/L (22-30); CHLORIDE 104 mmol/L (98-107); GLUCOSE 140 mg/dL (75-110); POTASSIUM 4.7 mmol/L (3.6-5.0); SODIUM 136.2 mmol/L (137-145)
[2017-07-29 07:38] LABS: CALCIUM 7.2 mg/dL (8.4-10.2)
[2017-07-29] MEDS ORDERED: FUROSEMIDE 80 MG TABLET PO SCH (08:00)
[2017-07-29] MEDS: ATORVASTATIN CALCIUM 10 MG TABLET PO SCH ×2 (08:16→21:06)
[2017-07-29] MEDS ORDERED: AMLODIPINE BESYLATE 5 MG TABLET PO SCH ×2 (10:00→10:14)
[2017-07-29] MEDS ORDERED: ABACAVIR SULFATE 600 MG PO SCH (10:00)
[2017-07-29] MEDS ORDERED: (PENDING PHARMACY ID) (Dolutegravir Sodium [Tivicay] 50 MG) PO SCH (10:00)
[2017-07-29] MEDS ORDERED: CALCITRIOL 0.25 MCG CAPSULE PO SCH (10:00)
[2017-07-29] MEDS ORDERED: LAMIVUDINE PO SCH (10:00)
[2017-07-29] MEDS ORDERED: (PENDING PHARMACY ID) (Isosorbide Mononitrate [Isosorbide Mononitrate Er] 120 MG) PO SCH (10:00)
[2017-07-29] MEDS ORDERED: (PENDING PHARMACY ID) (Warfarin Sodium 7.5 MG) PO SCH (10:00)
[2017-07-29] MEDS ORDERED: ISOSORBIDE MONONITRATE 60 MG TAB.ER.24H PO SCH (10:00)
[2017-07-29] MEDS ORDERED: NICOTINE 21 MG/24 HR PATCH.TD24 TD SCH (10:00)
[2017-07-29] MEDS: CARVEDILOL 12.5 MG TABLET PO SCH ×2 (10:15→21:06)
[2017-07-29] MEDS: SODIUM BICARBONATE 650 MG TABLET PO SCH ×2 (10:17→17:51)
--- NOTE | 2017-07-29 10:18 | PDOC PROGRESS REPORT ---
Subjective Progress Note for:: 07/29/17 Subjective:: Patient reports that his breathing is better today. Patient states that he is trying to have the hospital help him with getting a battery for his wheelchair. Patient states without having a battery for his wheelchair he is not able to be mobile. Patient states that he is supposed to follow-up with a renal doctor here in town however has not made the appointment yet. Patient states he is aware that his renal function continues to worsen. Reason For Visit: ACUTE RESPIRATORY FAILURE WITH HYPOXIA Physical Exam Vital Signs: Temp Pulse Resp BP Pulse Ox 97.9 F 79 16 152/76 H 99 07/29/17 08:00 07/29/17 08:00 07/29/17 08:00 07/29/17 08:00 07/29/17 08:00 Intake & Output 07/28/17 07/29/17 07/30/17 06:59 06:59 06:59 Intake Total 413 Output Total 800 Balance -387 Weight 76.4 kg General appearance: PRESENT: no acute distress, well-developed, well-nourished Head exam: PRESENT: atraumatic, normocephalic Eye exam: PRESENT: conjunctiva pink, EOMI. ABSENT: scleral icterus Ear exam: PRESENT: normal external ear exam Mouth exam: PRESENT: moist, tongue midline Neck exam: ABSENT: carotid bruit, JVD, lymphadenopathy, thyromegaly Respiratory exam: PRESENT: clear to auscultation ramila. ABSENT: rales, rhonchi, wheezes Cardiovascular exam: PRESENT: RRR. ABSENT: diastolic murmur, rubs, systolic murmur Pulses: PRESENT: normal dorsalis pedis pul Vascular exam: PRESENT: normal capillary refill GI/Abdominal exam: PRESENT: normal bowel sounds, soft. ABSENT: distended, guarding, mass, organolmegaly, rebound, tenderness Rectal exam: PRESENT: deferred Extremities exam: PRESENT: other - Left leg thigh amputation, right below the knee amputation Musculoskeletal exam: PRESENT: other - Left mid thigh amputation of lower extremity, right below the knee amputation Neurological exam: PRESENT: alert, awake, oriented to person, oriented to place , oriented to time, oriented to situation, CN II-XII grossly intact. ABSENT: motor sensory deficit Psychiatric exam: PRESENT: appropriate affect, normal mood. ABSENT: homicidal ideation, suicidal ideation Skin exam: PRESENT: dry, intact, warm, other - Patient noted to have a lipoma on back of neck. ABSENT: cyanosis, rash Results Laboratory Results: 07/29/17 06:20 07/29/17 06:20 07/29/17 07/29/17 06:20 06:20 WBC 6.6 RBC 3.56 L Hgb 10.7 L Hct 32.2 L MCV 90 MCH 30.1 MCHC 33.3 RDW 15.2 H Plt Count 151 Sodium 136.2 L Potassium 4.7 Chloride 104 Carbon Dioxide 19 L Anion Gap 13 BUN 65 H Creatinine 5.47 H Est GFR ( Amer) 13 L Est GFR (Non-Af Amer) 11 L Glucose 140 H Calcium 7.2 L 07/29/17 06:40 NT-Pro-B Natriuret Pep [id number] H Impressions: Chest X-Ray 07/27/17 00:00 IMPRESSION: CARDIAC ENLARGEMENT. VASCULAR CONGESTION. Lung Scan-VQ NM 07/27/17 00:00 IMPRESSION: NORMAL VENTILATION-PERFUSION LUNG SCAN. NEGATIVE FOR PULMONARY EMBOLI. Assessment & Plan - Diagnosis (1) Acute respiratory failure with hypoxia Is this a current diagnosis for this admission?: Yes Plan: Secondary to COPD acute exacerbation and acute on chronic systolic/diastolic congestive heart failure: Resolved. Patient is on room air. Change Solu- Medrol to once daily. (2) Acute on chronic combined systolic and diastolic congestive heart failure Is this a current diagnosis for this admission?: Yes Plan: We will continue IV Lasix. (3) COPD exacerbation Is this a current diagnosis for this admission?: Yes Plan: Will change IV solumedrol Daily and DuoNeb treatments to every 8 hours. (4) HIV (human immunodeficiency virus infection) Is this a current diagnosis for this admission?: Yes Plan: We will continue patient's HAART therapy (5) Tobacco use Is this a current diagnosis for this admission?: Yes Plan: Encouraged discontinuation of tobacco use. (6) Chronic kidney disease, stage V (very severe) Is this a current diagnosis for this admission?: Yes Plan: Encourage patient to follow with renal. At time of discharge will refer patient to kidney doctor. (7) Hypertensive urgency Is this a current diagnosis for this admission?: Yes Plan: Will increase Norvasc 10 mg PO Qdaily. (8) DVT prophylaxis Is this a current diagnosis for this admission?: Yes Plan: Coumadin. - Time Time Spent with patient: 15-24 minutes - Plan to discharge home tomorrow.
--- NOTE | 2017-07-29 19:22 | XCELERA REPORT ---
[address] [address] Transthoracic Echocardiogram Report Name: KRISTY CANTU Age: 62 yrs Gender: Male : 1955 Patient Status: Inpatient Patient Location: [address] [place] [address] Study Date: 07/29/2017 01:51 PM Height: 48 in Weight: 168 lb BSA: 1.5 m2 Procedure: A complete two-dimensional transthoracic echocardiogram was performed (2D, M-mode, spectral and color flow Doppler). The study was technically adequate with some images being suboptimal in quality. Reason For Study: CHF exacerbation Ordering Physician: DARION MOISEC Performed By: Nella Machado Interpretation Summary LV EF is 40% Left ventricular systolic function is mild to moderately reduced. There is mild concentric left ventricular hypertrophy. The left ventricle is grossly normal size. Doppler measurements suggest pseudonormalized left ventricular relaxation, which is associated with grade II/IV or mild to moderate diastolic dysfunction There is mild to moderate global hypokinesis of the left ventricle. Regional wall motion abnormalities cannot be excluded due to limited visualization. The right ventricle is mildly dilated. The right ventricular systolic function is normal. The right atrium is mildly dilated. The left atrium is moderately dilated. There is a moderate amount of mitral regurgitation There is no mitral valve stenosis. There is no aortic valve stenosis There is a trace amount of aortic regurgitation There is a trace or physiologic amount of tricuspid regurgitation Tricuspid regurgitation jet envelope not well defined to measure RV systolic pressure accurately. The aortic root is not well visualized but is probably normal size. The inferior vena cava was not visualized Minimal pericardial effusion. MMode/2D Measurements & Calculations RVDd: 3.0 cm LVIDd: 5.6 cm FS: 18.1 % MV Diam: 2.6 cm IVSd: 1.2 cm LVIDs: 4.6 cm EDV(Teich): 151.0 ml LVPWd: 1.2 cm ESV(Teich): 94.9 ml EF(Teich): 37.2 % Ao root diam: 3.6 cm LVOT diam: 2.4 cm Ao root area: 10.0 om6HSLB area: 4.4 cm2 LA dimension: 4.4 cm Doppler Measurements & Calculations MV E max kalyn: MV area (1 diam): MV P1/2t max kalyn: Ao V2 max: 102.7 cm/sec 5.3 cm2 104.6 cm/sec 184.8 cm/sec MV A max kalyn: MV Flow area MV P1/2t: 53.9 msec Ao max P.8 cm/sec (1diam): 5.3 cm2 MVA(P1/2t): 4.1 cm2 13.7 mmHg MV E/A: 1.9 MV dec slope: THANG(V,D): 568.8 cm/sec2 2.0 cm2 LV V1 max PG: MR max kalyn: PA V2 max: 2.8 mmHg 551.6 cm/sec 57.3 cm/sec LV V1 max: MR max PG: PA max P.3 mmHg 84.4 cm/sec 121.7 mmHg LV dP/dt: 1010 mmHg/s Left Ventricle The left ventricle is grossly normal size. There is mild concentric left ventricular hypertrophy. Left ventricular systolic function is mild to moderately reduced. LV EF is 40%. Doppler measurements suggest pseudonormalized left ventricular relaxation, which is associated with grade II/IV or mild to moderate diastolic dysfunction. There is mild to moderate global hypokinesis of the left ventricle. Regional wall motion abnormalities cannot be excluded due to limited visualization. Right Ventricle The right ventricle is mildly dilated. There is normal right ventricular wall thickness. The right ventricular systolic function is normal. Atria The right atrium is mildly dilated. The left atrium is moderately dilated. Interarterial septum not well visualized and not well dopplered. Cannot comment on ASD/PFO presence. Mitral Valve The mitral valve leaflets are sclerotic, but show no functional abnormalities. There is no mitral valve stenosis. There is a moderate amount of mitral regurgitation. Aortic Valve The aortic valve is not well visualized secondary to technical limitations. There is no aortic valve stenosis. There is a trace amount of aortic regurgitation. Tricuspid Valve The tricuspid valve is not well visualized secondary to technical limitations. There is no tricuspid stenosis. There is a trace or physiologic amount of tricuspid regurgitation. Tricuspid regurgitation jet envelope not well defined to measure RV systolic pressure accurately. Pulmonic Valve The pulmonic valve is not well visualized. Great Vessels The aortic root is not well visualized but is probably normal size. The inferior vena cava was not visualized. Effusions Minimal pericardial effusion. : HEATHER MOISE > Beulah Storm
[2017-07-29] MEDS: WARFARIN SODIUM 7.5 MG TABLET PO SCH (21:06)
[2017-07-30] MEDS: IPRATROPIUM/ALBUTEROL 0.5-2.5 MG/3 ML AMPUL NEB SCH ×2 (00:42→07:56)
[2017-07-30] MEDS: OXYCODONE-ACETAMINOPHEN 5-325 MG TABLET PO PRN ×2 (01:55→08:10)
[2017-07-30] MEDS: FUROSEMIDE INJ/PF 40 MG/4 ML SDV IV SCH (05:51)
[2017-07-30] MEDS: HYDRALAZINE HCL 50 MG TABLET PO SCH (05:51)
[2017-07-30 06:59] LABS: ABSOLUTE LYMPHOCYTES (AUTO) 2.6 10^3/uL (0.5-4.7); ABSOLUTE MONOCYTES (AUTO) 0.8 10^3/uL (0.1-1.4); ABSOLUTE NEUT (AUTO) 5.7 10^3/uL (1.7-8.2); BASOPHILS % (AUTO) 0.2 % (0-2); HEMATOCRIT 34.3 % (37.9-51.0); HEMOGLOBIN 11.4 g/dL (13.5-17.0); LYMPHOCYTES % (AUTO) 28.5 % (13-45); MEAN CORPUSCULAR HGB CONC 33.2 g/dL (32.0-36.0); MEAN CORPUSCULAR VOLUME 90 fl (80-97); MONOCYTES % (AUTO) 8.9 % (3-13); PLATELET COUNT 170 10^3/uL (150-450); RED CELL DISTRIBUTION WIDTH 15.1 % (11.5-14.0); SEGMENTED NEUTROPHILS % (AUTO) 62.4 % (42-78); TOTAL CELLS COUNTED % (AUTO) 100 %; WHITE BLOOD COUNT 9.1 10^3/uL (4.0-10.5)
[2017-07-30 07:25] LABS: BLOOD UREA NITROGEN 74 mg/dL (7-20); CALCIUM 7.1 mg/dL (8.4-10.2); CARBON DIOXIDE 19 mmol/L (22-30); GLUCOSE 85 mg/dL (75-110); MAGNESIUM 2.2 mg/dL (1.6-2.3); POTASSIUM 4.3 mmol/L (3.6-5.0); SODIUM 139.5 mmol/L (137-145)
[2017-07-30 07:37] LABS: ANION GAP 15 (5-19); CHLORIDE 106 mmol/L (98-107)
--- NOTE | 2017-07-30 09:34 | DISCHARGE SUMMARY E ---
Discharge Summary NAME: KRISTY CANTU : 1955 AGE: 62Y ADMITTED: 07/28/2017 DISCHARGED: 07/30/2017 CODE STATUS: FULL CODE. PRIMARY CARE PROVIDER: Dr. Lopez DISCHARGE DIAGNOSES: Includes: 1. Acute on chronic systolic and diastolic congestive heart failure with an EF of 40%. 2. Acute respiratory failure with hypoxia, resolved. 3. Chronic obstructive pulmonary disease exacerbation. 4. Human immunodeficiency virus. 5. Tobacco dependency, continuous. 6. Chronic kidney disease stage 5. 7. Hypertensive urgency. 8. Medical noncompliance. 9. Secondary hyperparathyroidism. 10. Metabolic acidosis, chronic. 11. 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 DISCHARGE MEDICATIONS: Include: 1. Abacavir 600 mg p.o. daily. 2. ProAir HFA 2 puffs inhalation q. 6 hours p.r.n. 3. Norvasc 5 mg p.o. daily, 30 tablets, 0 refills. 4. Qvar 1 puff inhalation b.i.d. 5. Calcitriol 0.25 mcg p.o. daily. 6. Coreg 25 mg p.o. q. 12 hours. 7. Tivicay 50 mg p.o. daily. 8. Lasix 80 mg p.o. q. a.m. 9. Hydralazine 100 mg p.o. q. 8 hours. 10. Isosorbide mononitrate 120 mg p.o. daily. 11. Epivir 5 mL p.o. daily. 12. Nitrostat 0.4 mg sublingually q. 5 minutes p.r.n. 13. Protonix 40 mg p.o. daily. 14. Pravastatin 40 mg p.o. q. hour of sleep. 15. Sodium bicarbonate 650 mg p.o. b.i.d. 16. Warfarin 5 mg p.o. daily. DIET: Heart healthy, as tolerated. ACTIVITY: As tolerated. Home Health physical therapy. DIAGNOSTICS: Lab values are as follows: Hematology obtained on 07/30/2017: WBCs are 9.1, hemoglobin is 11.4, hematocrit is 34.3, platelet count is 170,000. Coagulation obtained on 07/29/2017: PT is 29.9, INR is 2.67. Chemistry obtained on 07/30/2017: Sodium is 139, potassium 4.3, chloride is 106, carbon dioxide 19, BUN 74, creatinine is 5.62. Glucose 85, calcium is 7.1, magnesium is 2.2. Bilirubin is 0.1, AST 81, ALT is 105, Alk phos 85, CK 64, CK-MB is 1.32, troponin is 0.041. Total protein 5.7, albumin 3.4. Serology: Influenza A and B are negative. Chest x-ray obtained on 07/27/2017 reveals cardiac enlargement and vascular congestion. V/Q scan obtained on 07/27/2017 reveals normal ventilation perfusion lung scan, negative for pulmonary emboli. Echocardiogram obtained on 07/29/2017 reveals EF of 40% with [id number] diastolic dysfunction with moderate global hypokinesis of the left ventricle. HISTORY OF PRESENT ILLNESS: The patient is a 62-year-old -Thai male with a past medical history of HIV and CHF. The patient presented to the emergency department with a chief complaint of dyspnea. The patient presented with a 1 week history of dyspnea and a productive cough. This is actually the third evaluation in the emergency department this week with the same complaint. The patient had previously been placed on a prednisone taper and discharged home. However, he was awakened worsening in the morning with dyspnea, which did not improve after a nebulizer. The patient notified EMS and he was found to be hypoxic in the 80s. The patient was placed on BiPAP and was given Solu-Medrol, nebs. Evaluation in the emergency department revealed a creatinine of 5.7, a normal potassium. Chest x-ray revealing cardiac enlargement, vascular congestion, and the patient was referred to the hospitalist for admission and management. HOSPITAL COURSE: The patient was admitted to continuous telemetry unit. The patient was placed on a steroid taper, but additionally was diuresed. The patient did have excellent output with diuresis. The patient's creatinine trended from 5.7 down to 5.62, which in review of previous labs, is not significantly off from baseline. The patient is actually followed by Nephrology and the patient's actual last outpatient lab was 6.29. The patient has been off oxygen for greater than 24 hours with no desaturation. The patient's INR is therapeutic. The patient has been weaned from steroids. The patient denies any significant cough. No sputum production. The patient is able to fully complete sentences and actually recite the alphabet without taking a breath. The patient's lungs are completely clear and he is ready for discharge. Spent 3 minutes discussing smoking cessation education. The patient declines any pharmacological intervention at this time. I have highly encouraged the patient to stop smoking due to his multiple comorbidities. DISCHARGE PLANNING: The patient is to follow up with Dr. Lowe as already scheduled for hospital followup. Time spent on this discharge including assessment, plan, physical examination, patient education, review of records is 25 minutes. DICTATING PHYSICIAN: MADI VIGIL NP [id number] PHY#: [id number] ID: [id number] JOB#: [id number] ACCT: [id number] cc:SEBASTIEN PAYAN M.D. >
[2017-07-30 09:38] VITALS: BP 159/87
[2017-07-30] MEDS ORDERED: METHYLPREDNISOLONE INJ 40 MG/1 ML SDV IV SCH (10:00)
== END 2017-07-30 10:20 | disposition home or self-care (01) | DRG 291 ==
LOC: ER 13:00 → EH 20:53 → INTOOBSV 20:53 → 5 21:36 → OBSVTOIN 07-28 16:28
PROVIDERS: ADMIT Internal Medicine; ATTEND Internal Medicine
DX: I13.2 Hypertensive heart and chronic kidney disease with heart failure and with stage 5 chronic kidney disease, or end stage renal disease (principal); B20 Human immunodeficiency virus [HIV] disease; J96.01 Acute respiratory failure with hypoxia; I50.43 Acute on chronic combined systolic (congestive) and diastolic (congestive) heart failure; J44.1 Chronic obstructive pulmonary disease with (acute) exacerbation; N18.5 Chronic kidney disease, stage 5; I16.0 Hypertensive urgency; E78.5 Hyperlipidemia, unspecified; F17.210 Nicotine dependence, cigarettes, uncomplicated; Z60.2 Problems related to living alone; Z86.711 Personal history of pulmonary embolism; Z79.01 Long term (current) use of anticoagulants; Z79.899 Other long term (current) drug therapy; Z79.51 Long term (current) use of inhaled steroids; Z89.511 Acquired absence of right leg below knee; Z89.612 Acquired absence of left leg above knee
CPT/HCPCS: 36415; 71046; 78582; 80048; 80053; 82550; 82553; 83735; 83880; 84484; 85025; 85027; 85610; 87804; 93306; 94640; 96374; 99285; A9540; A9567; G0378; J1940; J2920; J3490; J7620; Q9969

== ENCOUNTER 2017-08-11 09:42 | Emergency (ER) | payer MEDICAID ==
--- NOTE | 2017-08-11 10:57 | ER Document Report ---
ED Medical Screen (RME) - General Chief Complaint: Shortness Of Breath Stated Complaint: DIFFICULTY BREATHING Time Seen by Provider: 08/11/17 10:53 Notes: Patient was recently admitted for respiratory failure from CHF. He presents with chest pressure and shortness of breath. TRAVEL OUTSIDE OF THE [place] IN LAST 30 DAYS: No - Related Data Allergies/Adverse Reactions: No Known Allergies Allergy (Verified 08/11/17 09:44) Past Medical History - Social History Frequency of alcohol use: None Drug Abuse: None Family history: Reviewed & Not Pertinent - Past Medical History Cardiac Medical History: Reports: Hx Congestive Heart Failure, Hx DVT, Hx Heart Attack, Hx Hypercholesterolemia, Hx Hypertension, Hx Peripheral Vascular Disease , Hx Pulmonary Embolism Pulmonary Medical History: Reports: Hx Bronchitis, Hx COPD, Hx Pneumonia Denies: Hx Asthma Neurological Medical History: Denies: Hx Migraine, Hx Seizures Endocrine Medical History: Reports: Hx Diabetes Mellitus Type 1, Hx Diabetes Mellitus Type 2 Renal/ Medical History: Reports: Hx Renal Insufficiency. 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, Reports Hx Musculoskeletal Trauma Psychiatric Medical History: Infectious Medical History: Reports: Hx HIV Past Surgical History: Reports: Hx Orthopedic Surgery - bilateral amputation, R BKA, L AKA, Hx Vascular Surgery - stents right chest, left arm clot removed, IVC filter, Other - Endoscopy - Immunizations Immunizations up to date: Yes Hx Diphtheria, Pertussis, Tetanus Vaccination: Yes History of Influenza Vaccine for 04/2017 - 09/2017 Season: Yes Influenza Administration Date for 04/2017 - 09/2017 Season: 04/20/17 Physical Exam - Vital signs Vitals: Temp Pulse Resp BP Pulse Ox 98.2 F 77 18 172/93 H 96 08/11/17 10:15 08/11/17 10:15 08/11/17 10:15 08/11/17 10:15 08/11/17 10:15 Course - Vital Signs Vital signs: Temp Pulse Resp BP Pulse Ox 98.2 F 77 18 172/93 H 96 08/11/17 10:15 08/11/17 10:15 08/11/17 10:15 08/11/17 10:15 08/11/17 10:15
[2017-08-11 11:55] LABS: ABSOLUTE BASOPHILS # (AUTO) 0.1 10^3/uL (0.0-0.2); ABSOLUTE EOSINOPHILS # (AUTO) 0.1 10^3/uL (0.0-0.6); ABSOLUTE LYMPHOCYTES (AUTO) 1.4 10^3/uL (0.5-4.7); ABSOLUTE MONOCYTES (AUTO) 0.4 10^3/uL (0.1-1.4); ABSOLUTE NEUT (AUTO) 4.3 10^3/uL (1.7-8.2); BASOPHILS % (AUTO) 1.3 % (0-2); EOSINOPHILS % (AUTO) 2.1 % (0-6); HEMATOCRIT 37.6 % (37.9-51.0); HEMOGLOBIN 12.6 g/dL (13.5-17.0); LYMPHOCYTES % (AUTO) 21.7 % (13-45); MEAN CORPUSCULAR HEMOGLOBIN 29.9 pg (27.0-33.4); MEAN CORPUSCULAR HGB CONC 33.4 g/dL (32.0-36.0); MEAN CORPUSCULAR VOLUME 89 fl (80-97); MONOCYTES % (AUTO) 6.8 % (3-13); PLATELET COUNT 195 10^3/uL (150-450); RED BLOOD COUNT 4.21 10^6/uL (4.35-5.55); RED CELL DISTRIBUTION WIDTH 15.3 % (11.5-14.0); SEGMENTED NEUTROPHILS % (AUTO) 68.1 % (42-78); TOTAL CELLS COUNTED % (AUTO) 100 %; WHITE BLOOD COUNT 6.4 10^3/uL (4.0-10.5)
--- NOTE | 2017-08-11 12:07 | RADIOLOGY REPORT (SQ) ---
EXAM DESCRIPTION: CHEST PA/LAT COMPLETED DATE/TIME: 08/11/2017 11:52 am REASON FOR STUDY: cp/sob COMPARISON: 07/27/2017 EXAM PARAMETERS: NUMBER OF VIEWS: two views TECHNIQUE: Digital Frontal and Lateral radiographic views of the chest acquired. RADIATION DOSE: NA LIMITATIONS: none FINDINGS: LUNGS AND PLEURA: Residual blunting costophrenic angles. Interval improvement vascular co ngestion. No areas of consolidation. MEDIASTINUM AND HILAR STRUCTURES: Stable. HEART AND VASCULAR STRUCTURES: Cardiomegaly stable. Interval improvement vascular congestion. BONES: No acute findings. HARDWARE: Surgical clips right subclavicular region. OTHER: No other significant finding. IMPRESSION: Cardiomegaly. Interval improvement vascular congestion peer TECHNICAL DOCUMENTATION: JOB ID: [id number] [employer]- All Rights Reserved
[2017-08-11 12:16] LABS: ALANINE AMINOTRANSFERASE 74 U/L (21-72); ALBUMIN 3.8 g/dL (3.5-5.0); ALKALINE PHOSPHATASE 87 U/L (38-126); ANION GAP 15 (5-19); ASPARTATE AMINO TRANSFERASE 48 U/L (17-59); BILIRUBIN,DIRECT 0.3 mg/dL (0.0-0.4); BILIRUBIN,TOTAL 0.4 mg/dL (0.2-1.3); BLOOD UREA NITROGEN 71 mg/dL (7-20); CALCIUM 7.6 mg/dL (8.4-10.2); CARBON DIOXIDE 18 mmol/L (22-30); CHLORIDE 113 mmol/L (98-107); GLUCOSE 107 mg/dL (75-110); POTASSIUM 4.3 mmol/L (3.6-5.0); SODIUM 145.5 mmol/L (137-145); TOTAL PROTEIN 6.2 g/dL (6.3-8.2)
[2017-08-11 12:30] LABS: TROPONIN I 0.044 ng/mL
--- NOTE | 2017-08-11 13:06 | ER Document Report ---
ED General - General Chief Complaint: Shortness Of Breath Stated Complaint: DIFFICULTY BREATHING Time Seen by Provider: 08/11/17 10:53 Mode of Arrival: Ambulatory Information source: Patient Notes: 62-year-old male history COPD CHF with recent admission, HIV PE presents with complaints of shortness of breath only when he lays flat. He notes he gets short of breath but when he sits up he is in no distress. Patient denies any nausea vomiting or diarrhea. He denies any actual chest pain notes his chest gets tight when he is laying flat. Patient admits to a intermittent productive cough when lying flat. Patient notes this is similar to his previous presentations where he was admitted for CHF exacerbation TRAVEL OUTSIDE OF THE [place] IN LAST 30 DAYS: No - HPI Onset: Last week Onset/Duration: Intermittent Quality of pain: No pain Severity: Mild Pain Level: Denies Associated symptoms: Productive cough, Shortness of breath Exacerbated by: Supine Relieved by: Denies Similar symptoms previously: Yes Recently seen / treated by doctor: Yes - Related Data Allergies/Adverse Reactions: No Known Allergies Allergy (Verified 08/11/17 09:44) Past Medical History - Social History Smoking Status: Current Every Day Smoker Cigarette use (# per day): Yes Chew tobacco use (# tins/day): No Smoking Education Provided: No Frequency of alcohol use: None Drug Abuse: None Family History: Reviewed & Not Pertinent, CAD, CVA, DM, Hyperlipidemia, Hypertension, Malignancy Patient has suicidal ideation: No Patient has homicidal ideation: No - Past Medical History Cardiac Medical History: Reports: Hx Congestive Heart Failure, Hx DVT, Hx Heart Attack, Hx Hypercholesterolemia, Hx Hypertension, Hx Peripheral Vascular Disease , Hx Pulmonary Embolism Pulmonary Medical History: Reports: Hx Bronchitis, Hx COPD, Hx Pneumonia Denies: Hx Asthma Neurological Medical History: Denies: Hx Migraine, Hx Seizures Endocrine Medical History: Reports: Hx Diabetes Mellitus Type 1, Hx Diabetes Mellitus Type 2 Renal/ Medical History: Reports: Hx Renal Insufficiency. 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, Reports Hx Musculoskeletal Trauma Psychiatric Medical History: Infectious Medical History: Reports: Hx HIV Past Surgical History: Reports: Hx Orthopedic Surgery - bilateral amputation, R BKA, L AKA, Hx Vascular Surgery - stents right chest, left arm clot removed, IVC filter, Other - Endoscopy - Immunizations Immunizations up to date: Yes Hx Diphtheria, Pertussis, Tetanus Vaccination: Yes Hx Pneumococcal Vaccination: 07/21/10 Review of Systems - Review of Systems Notes: REVIEW OF SYSTEMS: CONSTITUTIONAL : Denies fever, chills, or sweats. Denies recent illness. EENT: Denies eye, ear, throat, or mouth pain or symptoms. Denies nasal or sinus congestion or discharge. Denies throat, tongue, or mouth swelling or difficulty swallowing. CARDIOVASCULAR: Denies chest pain. Denies palpitations or racing or irregular heart beat. Denies ankle edema. RESPIRATORY: Admits shortness breath difficulty breathing when lying flat GASTROINTESTINAL: Denies abdominal pain or distention. Denies nausea, vomiting , or diarrhea. Denies blood in vomitus, stools, or per rectum. Denies black, tarry stools. Denies constipation. GENITOURINARY: Denies difficulty urinating, painful urination, burning, frequency, blood in urine, or discharge. MUSCULOSKELETAL: Denies back or neck pain or stiffness. Denies joint pain or swelling. SKIN: Denies rash, lesions or sores. HEMATOLOGIC : Denies easy bruising or bleeding. LYMPHATIC: Denies swollen, enlarged glands. NEUROLOGICAL: Denies confusion or altered mental status. Denies passing out or loss of consciousness. Denies dizziness or lightheadedness. Denies headache. Denies weakness or paralysis or loss of use of either side. Denies problems with gait or speech. Denies sensory loss, numbness, or tingling. Denies seizures. PSYCHIATRIC: Denies anxiety or stress. Denies depression, suicidal ideation, or homicidal ideation. ALL OTHER SYSTEMS REVIEWED AND NEGATIVE. Dictation was performed using [employer] recognition software PHYSICAL EXAMINATION: GENERAL: Well-appearing, well-nourished and in no acute distress. Sitting up patient has absolutely no complaints HEAD: Atraumatic, normocephalic. EYES: Pupils equal round and reactive to light, extraocular movements intact, sclera anicteric, conjunctiva are normal. ENT: Nares patent, oropharynx clear without exudates. Moist mucous membranes. NECK: Normal range of motion, supple without lymphadenopathy LUNGS: Breath sounds clear to auscultation bilaterally and equal. No wheezes rales or rhonchi. HEART: Regular rate and rhythm without murmurs ABDOMEN: Soft, nontender, nondistended abdomen. No guarding, no rebound. No masses appreciated. Musculoskeletal: Normal range of motion, no pitting or edema. No cyanosis. NEUROLOGICAL: Cranial nerves grossly intact. Normal speech, normal gait. Normal sensory, motor exams PSYCH: Normal mood, normal affect. SKIN: Warm, Dry, normal turgor, no rashes or lesions noted. Physical Exam - Vital signs Vitals: Temp Pulse Resp BP Pulse Ox 98.2 F 77 18 172/93 H 96 08/11/17 10:15 08/11/17 10:15 08/11/17 10:15 08/11/17 10:15 08/11/17 10:15 Course - Re-evaluation Re-evalutation: 08/11/17 13:06 Dr Rios consulted for medications and dc patient looks well is in no distress, I believe medication changes need to be performed for the patient, the chest x- ray shows improvement in vascular congestion he is in no respiratory distress 08/11/17 13:13 - Vital Signs Vital signs: Temp Pulse Resp BP Pulse Ox 98.2 F 77 18 172/93 H 96 08/11/17 10:15 08/11/17 10:15 08/11/17 10:15 08/11/17 10:15 08/11/17 10:15 - Laboratory Result Diagrams: 08/11/17 11:39 08/11/17 11:39 Laboratory results interpreted by me: 08/11/17 08/11/17 08/11/17 11:39 11:39 11:39 RBC 4.21 L Hgb 12.6 L Hct 37.6 L RDW 15.3 H Sodium 145.5 H Chloride 113 H Carbon Dioxide 18 L BUN 71 H Creatinine 6.71 H Est GFR ( Amer) 10 L Est GFR (Non-Af Amer) 8 L Calcium 7.6 L ALT 74 H NT-Pro-B Natriuret Pep 24029 H Total Protein 6.2 L Discharge - Discharge Referrals: TRISTON FRANCOIS MD [Primary Care Provider] - Follow up as needed
[2017-08-11] MEDS ORDERED: HYDRALAZINE HCL INJ/PF 20 MG/1 ML SDV IV ONE (14:01)
[2017-08-11 14:39] VITALS: BP 172/90
--- NOTE | 2017-08-11 18:43 | EKG REPORT ---
SEVERITY:- ABNORMAL ECG - SINUS RHYTHM VENTRICULAR PREMATURE COMPLEX PROBABLE LEFT ATRIAL ABNORMALITY LEFT VENTRICULAR HYPERTROPHY PROLONGED QT INTERVAL : Confirmed by: Beulah Storm 11-Aug-2017 18:42:42
== END 2017-08-11 17:10 | disposition home or self-care (01) ==
LOC: ER 09:42
DX: I11.0 Hypertensive heart disease with heart failure (principal); I50.9 Heart failure, unspecified; J44.9 Chronic obstructive pulmonary disease, unspecified; R06.02 Shortness of breath; R05 Cough; I25.2 Old myocardial infarction; E11.51 Type 2 diabetes mellitus with diabetic peripheral angiopathy without gangrene; F17.210 Nicotine dependence, cigarettes, uncomplicated; Z86.711 Personal history of pulmonary embolism; Z21 Asymptomatic human immunodeficiency virus [HIV] infection status; Z82.49 Family history of ischemic heart disease and other diseases of the circulatory system
CPT/HCPCS: 36415; 71046; 80053; 83880; 84484; 85025; 93005; 93010; 99285

== ENCOUNTER 2017-09-02 05:40 | Inpatient (IN) | payer MEDICAID ==
--- NOTE | 2017-09-02 06:55 | RADIOLOGY REPORT (SQ) ---
EXAM DESCRIPTION: CHEST SINGLE VIEW CLINICAL HISTORY: 62 years, Male, DIFFICULTY BREATHING COMPARISON: August 11, 2017 NUMBER OF VIEWS: One TECHNIQUE: Frontal AP portable LIMITATIONS: None. FINDINGS: Small patchiness-effusion of the right lung base mild interstitial markings, small blunting-effusion of the left costophrenic angle mild enlargement of the cardiac silhouette, and mild osteoarthritis. Right upper thoracic clips. IMPRESSION: Interval worsening includes a mild CHF pattern. Differential diagnosis includes small right basilar pneumonia/atelectasis.
[2017-09-02 07:13] LABS: APPEARANCE,URINE CLEAR; BILIRUBIN,URINE NEGATIVE (NEGATIVE); COLOR,URINE YELLOW; GLUCOSE, URINE 50 mg/dL (NEGATIVE); KETONES,URINE NEGATIVE (NEGATIVE); LEUKOCYTE ESTERASE,URINE NEGATIVE (NEGATIVE); NITRITE,URINE NEGATIVE (NEGATIVE); PROTEIN,URINE >=500 mg/dL (NEGATIVE); URINE SPECIFIC GRAVITY 1.011; UROBILINOGEN,URINE NEGATIVE mg/dL (<2.0)
[2017-09-02 07:27] LABS: ABSOLUTE BASOPHILS # (AUTO) 0.1 10^3/uL (0.0-0.2); ABSOLUTE EOSINOPHILS # (AUTO) 0.2 10^3/uL (0.0-0.6); ABSOLUTE LYMPHOCYTES (AUTO) 1.5 10^3/uL (0.5-4.7); ABSOLUTE MONOCYTES (AUTO) 0.4 10^3/uL (0.1-1.4); ABSOLUTE NEUT (AUTO) 5.1 10^3/uL (1.7-8.2); BASOPHILS % (AUTO) 0.9 % (0-2); EOSINOPHILS % (AUTO) 2.4 % (0-6); HEMATOCRIT 37.6 % (37.9-51.0); HEMOGLOBIN 12.2 g/dL (13.5-17.0); LYMPHOCYTES % (AUTO) 20.5 % (13-45); MEAN CORPUSCULAR HEMOGLOBIN 29.5 pg (27.0-33.4); MEAN CORPUSCULAR HGB CONC 32.6 g/dL (32.0-36.0); MEAN CORPUSCULAR VOLUME 91 fl (80-97); MONOCYTES % (AUTO) 5.6 % (3-13); PLATELET COUNT 220 10^3/uL (150-450); RED BLOOD COUNT 4.15 10^6/uL (4.35-5.55); RED CELL DISTRIBUTION WIDTH 15.1 % (11.5-14.0); SEGMENTED NEUTROPHILS % (AUTO) 70.6 % (42-78); TOTAL CELLS COUNTED % (AUTO) 100 %; WHITE BLOOD COUNT 7.2 10^3/uL (4.0-10.5)
[2017-09-02 07:29] LABS: VENOUS BLOOD BASE EXCESS -9.2 mmol/L; VENOUS BLOOD HCO3 14.9 mmol/L (20-32); VENOUS BLOOD PCO2 27.6 mmHg (35-63); VENOUS BLOOD PH 7.35 (7.30-7.42)
[2017-09-02 07:49] LABS: ALANINE AMINOTRANSFERASE 78 U/L (21-72); ALBUMIN 3.9 g/dL (3.5-5.0); ALKALINE PHOSPHATASE 136 U/L (38-126); ANION GAP 11 (5-19); ASPARTATE AMINO TRANSFERASE 83 U/L (17-59); BILIRUBIN,DIRECT 0.5 mg/dL (0.0-0.4); BILIRUBIN,TOTAL 0.5 mg/dL (0.2-1.3); BLOOD UREA NITROGEN 54 mg/dL (7-20); CARBON DIOXIDE 17 mmol/L (22-30); CHLORIDE 115 mmol/L (98-107); CREATINE KINASE 76 U/L (55-170); GLUCOSE 105 mg/dL (75-110); POTASSIUM 4.4 mmol/L (3.6-5.0); SODIUM 143.2 mmol/L (137-145)
[2017-09-02 08:02] LABS: CREATINE KINASE MB 1.33 ng/mL (<4.55)
[2017-09-02 08:08] LABS: TROPONIN I 0.04 ng/mL
[2017-09-02 08:39] LABS: PARTIAL THROMBOPLASTIN TIME 36.1 SEC (23.5-35.8)
[2017-09-02] MEDS ORDERED: FUROSEMIDE INJ/PF 40 MG/4 ML SDV IV ONE (08:55)
--- NOTE | 2017-09-02 09:29 | EKG REPORT ---
SEVERITY:- ABNORMAL ECG - SINUS RHYTHM PROBABLE LEFT ATRIAL ABNORMALITY LEFT VENTRICULAR HYPERTROPHY PROLONGED QT INTERVAL : Confirmed by: Beulah Storm 02-Sep-2017 09:27:29
[2017-09-02] MEDS ORDERED: CLONIDINE HCL 0.1 MG TABLET PO ONE (10:11)
[2017-09-02] MEDS ORDERED: HYDRALAZINE HCL 50 MG TABLET PO ONE (10:11)
--- NOTE | 2017-09-02 10:25 | ER Document Report ---
ED General - General Chief Complaint: Shortness Of Breath Stated Complaint: TROUBLE BREATHING Time Seen by Provider: 09/02/17 06:18 TRAVEL OUTSIDE OF THE [place] IN LAST 30 DAYS: No - HPI Patient complains to provider of: Shortness of breath Notes: Patient coming in for evaluation of shortness of breath. Patient states he is compliant with medication has a history of HIV COPD severe renal disease diabetes patient does have amputations of his bilateral lower extremities. Patient states no new medications has been watching his fluid intake and also watching his salt intake. Patient denies any recent travel denies any changes medications. Patient denies fevers chills nausea vomiting chest pain abdominal pain. Patient states worsening some shortness of breath when moving around - Related Data Allergies/Adverse Reactions: No Known Allergies Allergy (Verified 08/11/17 09:44) Past Medical History - Social History Smoking Status: Smoker,Current Status Unk Family History: Reviewed & Not Pertinent, CAD, CVA, DM, Hyperlipidemia, Hypertension, Malignancy Patient has suicidal ideation: No Patient has homicidal ideation: No - Past Medical History Cardiac Medical History: Reports: Hx Congestive Heart Failure, Hx DVT, Hx Heart Attack, Hx Hypercholesterolemia, Hx Hypertension, Hx Peripheral Vascular Disease , Hx Pulmonary Embolism Pulmonary Medical History: Reports: Hx Bronchitis, Hx COPD, Hx Pneumonia Denies: Hx Asthma Neurological Medical History: Denies: Hx Migraine, Hx Seizures Endocrine Medical History: Reports: Hx Diabetes Mellitus Type 1, Hx Diabetes Mellitus Type 2 Renal/ Medical History: Reports: Hx Renal Insufficiency. 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, Reports Hx Musculoskeletal Trauma Psychiatric Medical History: Infectious Medical History: Reports: Hx HIV Past Surgical History: Reports: Hx Orthopedic Surgery - bilateral amputation, R BKA, L AKA, Hx Vascular Surgery - stents right chest, left arm clot removed, IVC filter, Other - Endoscopy - Immunizations Immunizations up to date: Yes Hx Diphtheria, Pertussis, Tetanus Vaccination: Yes Hx Pneumococcal Vaccination: 07/21/10 Review of Systems - Review of Systems Constitutional: No symptoms reported EENT: No symptoms reported Cardiovascular: No symptoms reported Respiratory: Short of breath Gastrointestinal: No symptoms reported Genitourinary: No symptoms reported Male Genitourinary: No symptoms reported Musculoskeletal: No symptoms reported Skin: No symptoms reported Hematologic/Lymphatic: No symptoms reported Neurological/Psychological: No symptoms reported -: Yes All other systems reviewed and negative Physical Exam - Vital signs Vitals: Temp Pulse Resp BP Pulse Ox 97.8 F 91 19 177/109 H 99 09/02/17 05:42 09/02/17 05:42 09/02/17 05:42 09/02/17 05:42 09/02/17 05:42 Interpretation: Normal - General General appearance: Appears well, Alert - HEENT Head: Normocephalic, Atraumatic Eyes: Normal Pupils: PERRL - Respiratory Respiratory status: No respiratory distress Chest status: Nontender Breath sounds: Rales, Rhonchi Chest palpation: Normal - Cardiovascular Rhythm: Regular Heart sounds: Normal auscultation Murmur: No - Abdominal Inspection: Normal Distension: No distension Bowel sounds: Normal Tenderness: Nontender Organomegaly: No organomegaly - Back Back: Normal, Nontender - Extremities General upper extremity: Normal inspection, Nontender, Normal color, Normal ROM , Normal temperature General lower extremity: Nontender, Normal temperature. No: Normal inspection - Bilateral amputations of lower extremity - Neurological Neuro grossly intact: Yes Cognition: Normal Orientation: AAOx4 Star Coma Scale Eye Opening: Spontaneous Star Coma Scale Verbal: Oriented Mccrory Coma Scale Motor: Obeys Commands Star Coma Scale Total: 15 Speech: Normal Motor strength normal: LUE, RUE, LLE, RLE Sensory: Normal - Psychological Associated symptoms: Normal affect, Normal mood - Skin Skin Temperature: Warm Skin Moisture: Dry Skin Color: Normal Course - Re-evaluation Re-evalutation: 09/02/17 15:02 Chest x-ray shows worsening CHF with elevated BNP. Patient was given 40 Lasix to p.o. approximate 500 cc however patient continues to complain of dyspnea and some difficulty breathing. Patient will be admitted for CHF exacerbation. - Vital Signs Vital signs: Temp Pulse Resp BP Pulse Ox 97.8 F 81 18 166/90 H 96 09/02/17 13:52 09/02/17 13:52 09/02/17 13:52 09/02/17 13:52 09/02/17 13:52 - Laboratory Result Diagrams: 09/02/17 07:12 09/02/17 07:12 Laboratory results interpreted by me: 02/13/18 02/13/18 02/13/18 06:55 07:12 07:12 RBC 4.15 L Hgb 12.2 L Hct 37.6 L RDW 15.1 H PT APTT VBG pCO2 VBG HCO3 Chloride 115 H Carbon Dioxide 17 L BUN 54 H Creatinine 6.82 H Est GFR ( Amer) 10 L Est GFR (Non-Af Amer) 8 L Calcium 8.0 L Direct Bilirubin 0.5 H AST 83 H ALT 78 H Alkaline Phosphatase 136 H NT-Pro-B Natriuret Pep Urine Protein >=500 H Urine Glucose (UA) 50 H 09/02/17 09/02/17 09/02/17 07:12 07:12 07:12 RBC Hgb Hct RDW PT 16.0 H APTT 36.1 H VBG pCO2 27.6 L VBG HCO3 14.9 L Chloride Carbon Dioxide BUN Creatinine Est GFR ( Amer) Est GFR (Non-Af Amer) Calcium Direct Bilirubin AST ALT Alkaline Phosphatase NT-Pro-B Natriuret Pep 52925 H Urine Protein Urine Glucose (UA) Discharge - Discharge Clinical Impression: Anticoagulated on Coumadin, HIV (human immunodeficiency virus infection) Chronic kidney disease (CKD) Qualifiers: Chronic kidney disease stage: unspecified stage Qualified Code(s): N18.9 - Chronic kidney disease, unspecified CHF (congestive heart failure) Qualifiers: Heart failure type: unspecified Heart failure chronicity: unspecified Qualified Code(s): I50.9 - Heart failure, unspecified Condition: Good Disposition: ADMITTED INPATIENT Admitting Provider: Hospitalist - Omar/Sascha Unit Admitted: [facility]
[2017-09-02] MEDS ORDERED: HYDRALAZINE HCL INJ/PF 20 MG/1 ML SDV IV PRN (10:57)
[2017-09-02] MEDS ORDERED: FUROSEMIDE INJ/PF 20 MG/2 ML SDV IV PRN (11:53)
[2017-09-02] MEDS ORDERED: ONDANSETRON HCL INJ/PF 4 MG/2 ML SDV IV PRN (11:53)
[2017-09-02] MEDS ORDERED: AMLODIPINE BESYLATE 10 MG TABLET PO ONE (12:30)
[2017-09-02] MEDS ORDERED: SODIUM BICARBONATE 650 MG TABLET PO ONE (13:00)
[2017-09-02 13:16] LABS: INTERNATIONAL RATION (INR) 1.15; PROTHROMBIN TIME 15.5 SEC (11.4-15.4)
--- NOTE | 2017-09-02 15:27 | RADIOLOGY REPORT (SQ) ---
EXAM DESCRIPTION: CT CHEST WITHOUT COMPLETED DATE/TIME: 09/02/2017 3:13 pm REASON FOR STUDY: respiratory failure, hypoxia, rule out pna COMPARISON: Chest x-ray dated 09/02/2017. Chest CTA dated 07/21/2016. TECHNIQUE: CT scan performed of the chest without intravenous contrast. Images reviewed with lung, soft tissue and bone windows. Reconstructed coronal and sagittal MPR images reviewed. All images st ored on PACS. All CT scanners at this facility use dose modulation, iterative reconstruction, and/or weight based d osing when appropriate to reduce radiation dose to as low as reasonably achievable (ALARA). [facility]: Dose Right [facility]: CareDose [facility]: Dose Right [facility]: Teradose 4D [facility]: [employer] RADIATION DOSE: CT Rad equipment meets quality standard of care and radiation dose reduction techniq ues were employed. CTDIvol: 8.8 mGy. DLP: 342 mGy-cm. mGy. LIMITATIONS: No technical limitations. FINDINGS: LUNGS AND PLEURA: Emphysematous changes primarily in the upper lobes. Scattered linear ma rkings in the lower lobes. Small pleural effusions. No focal consolidation. HILAR AND MEDIASTINAL STRUCTURES: No identified masses or abnormal nodes. No obvious aneurysm. HEART AND VASCULAR STRUCTURES: No aneurysm. Cardiomegaly. No pericardial effusion. UPPER ABDOMEN: No significant findings. Limited exam. THYROID AND OTHER SOFT TISSUES: No masses. No adenopathy. BONES: No significant finding. HARDWARE: Vascular shunt in the soft tissues of the right chest. OTHER: No other significant findings. IMPRESSION: 1. EMPHYSEMATOUS CHANGES. SMALL PLEURAL EFFUSIONS WITH LINEAR BASILAR ATELECTASIS/SCARRING. 2. CARDIOMEGALY. TECHNICAL DOCUMENTATION: JOB ID: [id number] Quality ID # [id number]: Final reports with documentation of one or more dose reduction techniques (e.g., Au tomated exposure control, adjustment of the mA and/or kV according to patient size, use of iterative reconstruction technique) 2010 [employer]- All Rights Reserved
[2017-09-02] MEDS ORDERED: NITROGLYCERIN 0.4 MG/TAB 25 TAB/BOTTLE SL PRN (16:31)
[2017-09-02] MEDS ORDERED: LAMIVUDINE 50 MG PO SCH (16:45)
[2017-09-02] MEDS ORDERED: (PENDING PHARMACY ID) (Pravastatin Sodium [Pravachol] 40 MG) PO SCH (16:45)
[2017-09-02] MEDS ORDERED: ABACAVIR SULFATE 600 MG PO SCH (16:45)
--- NOTE | 2017-09-02 17:07 | PDOC H&P ---
History of Present Illness Admission Date/PCP: 09/02/17 10:31 Dr Forbes [employer] Aide: Dr Lowe History of Present Illness: The patient is an extremely pleasant but unfortunate 62-year-old - [place] male. His past medical history is significant for chronic kidney disease stage V. He has not yet been transitioned to dialysis. He apparently has been seen referred to Dr. Lowe's office but his nose showed a rescheduled on several occasions. In addition the patient has a history of peripheral vascular disease and has bilateral amputations of his lower extremities. He has known congestive heart failure, hypertension, COPD etc. as well as cocaine abuse. He also has a history of HIV maintained on antiretrovirals. He states his last viral load was undetectable. In any event the patient presented to the emergency room with increased shortness of breath and cough. He states that he was unable to lay flat. In the emergency room labs were drawn revealing a creatinine of 6.8, BNP of 35,000, CO2 of 17 and a calcium of 8.0. He was treated with IV Lasix. A chest x-ray and CT scan of the chest were both performed which revealed volume overload due to see congestive heart failure. There was no evidence of pneumonia. Past Medical History Cardiac Medical History: Reports: Congestive Heart Failure, DVT, Myocardial Infarction, Hyperlipidema, Hypertension, Peripheral Vascular Disease, Pulmonary Embolism Pulmonary Medical History: Reports: Bronchitis, Chronic Obstructive Pulmonary Disease (COPD), Pneumonia Denies: Asthma Neurological Medical History: Denies: Migraine, Seizures Endocrine Medical History: Reports: Diabetes Mellitus Type 1, Diabetes Mellitus Type 2 Renal/ Medical History: Reports: Chronic Kidney Disease, Other - The patient has chronic kidney disease stage V Malignancy Medical History: Reports: None GI Medical History: Reports: Gastroesophageal Reflux Disease Musculoskeltal Medical History: Reports: Arthritis Psychiatric Medical History: Reports: Substance Abuse Traumatic Medical History: Reports: None Hematology: Denies: Anemia Infectious Medical History: Reports: HIV Past Surgical History Past Surgical History: Reports: Orthopedic Surgery - bilateral amputation, R BKA , L AKA, Vascular Surgery - stents right chest, left arm clot removed, IVC filter, Other - The patient has bilateral amputations of his lower extremities. Social History Information Source: Patient Lives with: Alone Smoking Status: Smoker,Current Status Unk Cigarettes Packs Per Day: 1 Frequency of Alcohol Use: None Hx Recreational Drug Use: Yes Drugs: Cocaine Hx Prescription Drug Abuse: No - Advance Directive Resuscitation Status: Full Code Surrogate healthcare decision maker:: Mary Marin (sister) [phone], Parmjit Peraza (brother) Family History Family History: CAD, CVA, DM, Hyperlipidemia, Hypertension, Malignancy Parental Family History Reviewed: Yes Children Family History Reviewed: Yes Sibling(s) Family History Reviewed.: Yes Medication/Allergy Home Medications: Abacavir Sulfate [Ziagen] 600 mg PO DAILY 09/02/17 Albuterol Sulfate [Albuterol Sulfate 2.5mg/3 mL] 3 ml NEB Q8 09/02/17 Albuterol Sulfate [Ventolin HFA MDI 18 GM] 2 puff IH Q6HP PRN 09/02/17 Amlodipine Besylate [Norvasc 5 mg Tablet] 5 mg PO DAILY 09/02/17 Beclomethasone Dipropionate [Qvar] 2 puff IH Q12 09/02/17 Calcitriol [Rocaltrol 0.25 mcg Capsule] 0.25 mcg PO DAILY 09/02/17 Carvedilol [Coreg 25 mg Tablet] 25 mg PO Q12 09/02/17 Clonidine HCl [Catapres 0.1 mg Tablet] 0.1 mg PO Q12 09/02/17 Dolutegravir Sodium [Tivicay] 50 mg PO DAILY 09/02/17 Furosemide [Lasix 80 mg Tablet] 80 mg PO DAILY 09/02/17 Hydralazine HCl 100 mg PO Q8 09/02/17 Ipratropium/Albuterol Sulfate [Iprat-Albut 0.5-3(2.5) mg/3 ml] 3 ml NEB Q6 09/02 Isosorbide Mononitrate [Isosorbide Mononitrate ER] 120 mg PO DAILY 09/02/17 Lamivudine [Epivir] 50 mg PO DAILY 09/02/17 Nicotine [Nicoderm 21 mg/24 Hr Transderm Patch] 1 patch TOP DAILY 09/02/17 Nitroglycerin [Nitrostat] 0.4 mg SL Q5MP PRN 09/02/17 Pantoprazole Sodium [Protonix] 40 mg PO DAILY 09/02/17 Pravastatin Sodium [Pravachol] 40 mg PO DAILY 09/02/17 Sodium Bicarbonate [Sodium Bicarbonate 650 mg Tablet] 1,300 mg PO TID 09/02/17 Warfarin Sodium [Coumadin] 10 mg PO DAILY 09/02/17 Allergies/Adverse Reactions: No Known Allergies Allergy (Verified 08/11/17 09:44) Review of Systems Constitutional: PRESENT: fatigue. ABSENT: chills, fever(s), headache(s) Eyes: ABSENT: visual disturbances Ears: ABSENT: hearing changes Cardiovascular: PRESENT: chest pain, dyspnea on exertion, orthropnea Respiratory: PRESENT: cough, dyspnea. ABSENT: sputum Gastrointestinal: ABSENT: abdominal pain, constipation, diarrhea, hematemesis, hematochezia, nausea, vomiting Genitourinary: PRESENT: other - Decreased urine production Musculoskeletal: ABSENT: joint swelling Integumentary: ABSENT: rash, wounds Neurological: ABSENT: abnormal gait, abnormal speech, confusion, dizziness, focal weakness, syncope Psychiatric: ABSENT: anxiety, depression, homidical ideation, suicidal ideation Endocrine: ABSENT: cold intolerance, heat intolerance, polydipsia, polyuria Hematologic/Lymphatic: ABSENT: easy bleeding, easy bruising Physical Exam Vital Signs: Temp Pulse Resp BP Pulse Ox 98.0 F 81 22 H 165/91 H 99 09/02/17 15:34 09/02/17 15:34 09/02/17 15:34 09/02/17 15:34 09/02/17 15:34 Intake & Output 09/01/17 09/02/17 09/03/17 06:59 06:59 06:59 Weight 73 kg General appearance: PRESENT: no acute distress, cooperative, disheveled Head exam: PRESENT: atraumatic, normocephalic Eye exam: PRESENT: conjunctiva pink, EOMI, PERRLA. ABSENT: scleral icterus Mouth exam: PRESENT: moist, tongue midline Neck exam: ABSENT: carotid bruit, JVD, lymphadenopathy, thyromegaly Respiratory exam: PRESENT: crackles, rales. ABSENT: chest wall tenderness Cardiovascular exam: PRESENT: RRR. ABSENT: diastolic murmur, rubs, systolic murmur Vascular exam: PRESENT: other - Bilateral lower extremity amputations GI/Abdominal exam: PRESENT: normal bowel sounds, soft. ABSENT: distended, guarding, mass, organolmegaly, rebound, tenderness Rectal exam: PRESENT: deferred Extremities exam: PRESENT: other - Both lower extremities are surgically absent Musculoskeletal exam: PRESENT: other - He is wheelchair-bound. ABSENT: ambulatory Neurological exam: PRESENT: alert, awake, oriented to person, oriented to place , oriented to time, oriented to situation, CN II-XII grossly intact. ABSENT: motor sensory deficit Psychiatric exam: PRESENT: appropriate affect, normal mood. ABSENT: homicidal ideation, suicidal ideation Skin exam: PRESENT: dry, intact, warm. ABSENT: cyanosis, rash Results Impressions: Chest CT 09/02/17 00:00 IMPRESSION: 1. EMPHYSEMATOUS CHANGES. SMALL PLEURAL EFFUSIONS WITH LINEAR BASILAR ATELECTASIS/SCARRING. 2. CARDIOMEGALY. Chest X-Ray 09/02/17 06:15 IMPRESSION: Interval worsening includes a mild CHF pattern. Differential diagnosis includes small right basilar pneumonia/atelectasis. Assessment & Plan - Diagnosis (1) Acute and chronic respiratory failure Qualifiers: Respiratory failure complication: hypoxia Qualified Code(s): J96.21 - Acute and chronic respiratory failure with hypoxia Is this a current diagnosis for this admission?: Yes Plan: The patient is requiring more oxygen than baseline. This is due to his congestive heart failure exacerbation and volume overloaded state. (2) Acute on chronic combined systolic and diastolic congestive heart failure Is this a current diagnosis for this admission?: Yes Plan: He was given 80 mg of IV Lasix in the emergency room. I gave him an additional 40 mg as well. I will start him on 80 mg twice daily starting tonight. Hopefully we will get some fluid off. We will obtain strict I's and O's and await further recommendations from nephrology. (3) Acute on chronic renal failure Qualifiers: Chronic kidney disease stage: stage 5, not on chronic dialysis Is this a current diagnosis for this admission?: Yes Plan: The patient seems to have worsening renal function. He does have a history of noncompliance. I am not sure what nephrology is going to want to do about this. I have consulted Dr. Lowe for his recommendations we certainly appreciate his assistance. For now I will place him back on his home regimen of medications and we will let them adjust further. He will be diuresed 80 mg of IV Lasix twice daily. (4) Hypertensive emergency Is this a current diagnosis for this admission?: Yes Plan: Improving. He had markedly high blood pressures at the time of admission. He has been placed back on his home regimen of medication. He has IV hydralazine available as needed. (5) History of DVT (deep vein thrombosis) Is this a current diagnosis for this admission?: Yes Plan: The patient will continue Coumadin. We will obtain daily PT/INRs. He does have an IVC filter in place. (6) Anticoagulated on Coumadin Is this a current diagnosis for this admission?: Yes Plan: As above (7) Peripheral vascular disease Is this a current diagnosis for this admission?: Yes Plan: The patient certainly is a vasculopath. He has had multiple interventions. He will continue his home regimen at this point. He seems to be stable from a vascular disease standpoint. (8) COPD (chronic obstructive pulmonary disease) Is this a current diagnosis for this admission?: Yes Plan: Continue bronchodilators. He does have underlying emphysema. He will have DuoNeb treatments available as well. At this point I believe this is more a congestive heart failure event. He does not seem to be having an acute exacerbation just yet. (9) HIV (human immunodeficiency virus infection) Is this a current diagnosis for this admission?: Yes Plan: Fortunately he has his medications with him. I have informed the nursing staff that these may be relabeled for him to use here in the hospital. He only has about 3 or 4 days left however. We need to make efforts to either get family members to refill his medications or the pharmacy here to get the here if he is not discharged in the next day or 2. I am ordering a CD4 count as well as a viral load. He states his last viral load was undetectable. He does have a history of noncompliance. We will see where we are at with this. (10) GERD (gastroesophageal reflux disease) Is this a current diagnosis for this admission?: Yes Plan: Continue PPI (11) Cocaine abuse Is this a current diagnosis for this admission?: Yes Plan: I will obtain a urine drug screen (12) Tobacco abuse Is this a current diagnosis for this admission?: Yes Plan: The patient states that he has been wearing a nicotine patch. He states he is only smoked 1 cigarette in the past couple of weeks. He was commended for this. We will continue nicotine patch here in the hospital (13) Anemia in chronic kidney disease (CKD) Qualifiers: Chronic kidney disease stage: stage 5, not on chronic dialysis Qualified Code(s): N18.5 - Chronic kidney disease, stage 5; D63.1 - Anemia in chronic kidney disease Is this a current diagnosis for this admission?: Yes Plan: He will have a CBC drawn in the morning (14) Full code status Is this a current diagnosis for this admission?: Yes Plan: I did discuss this with the patient and he states that he is not ready to . He would want full aggressive measures to include chest compressions, pressors and intubation if necessary. - Time Time Spent: 50 to 70 Minutes - Inpatient Certification Medical Necessity: Significant Comorbidiites Make Outpatient Treatment Too Risky , Need Close Monitoring Due to Risk of Patient Decompensation, Other - The patient has multiple comorbidities. He has renal function that is worsened to the point that he will likely be requiring dialysis. I am not sure due to his complicated history of noncompliance and drug abuse whether nephrology is going to want to dialyze him or not. He is being treated for congestive heart failure exacerbation with IV Lasix. Timing of disposition will be determined by his clinical course. His prognosis is quite guarded at this point. It is not safe for him to go home. I fully expect his hospitalization to span greater than 2 midnights. He will be made an inpatient.
[2017-09-02] MEDS: LANSOPRAZOLE 30 MG TAB.RAP.DR PO SCH (17:32)
[2017-09-02] MEDS: FUROSEMIDE INJ/PF 40 MG/4 ML SDV IV SCH (17:32)
[2017-09-02] MEDS: NICOTINE 21 MG/24 HR PATCH.TD24 TOP SCH (17:32)
--- NOTE | 2017-09-02 19:20 | PDOC CONSULTATION ---
Consultation Consult Date: 09/02/17 Consult reason:: Worsening renal failure History of Present Illness Admission Date/PCP: 09/02/17 10:31 History of Present Illness: KRISTY CANTU is a 62 year old male who has a history CKD 5, CHF, hypertension, COPD, cocaine abuse, and HIV. [facility] by [facility] 2017 and June 2017 for CHF and uncontrolled hypertension. In April his creatinine was 4.2. In June of 2017 it was 6.2. He has been referred to Dr. Lowe' office, but has no showed or rescheduled 4 times. According to notes from [facility] he has history of non-compliance. He came in to the ER due to SOB. He says that his shortness of breath started on Friday and got worse as the week went on. This morning he decided that he need to go to the ER because his SOB was getting worse. He denied having chest pain at the time. He does have a cough with occasional clearish production. In the ER labs were drawn showing a creatinine of 6.8, BNP of 35,700, CO2 of 17 and calcium of 8.0. He was given an inital dose of IV lasix, which helped with urine production. Chest CT and X-ray were done, both showing possible fluid overload due to CHF. Upon examination the patient denies decreased urine production, decreased appetite, nausea/vomiting or any other uremic s/s. Past Medical History Cardiac Medical History: Reports: CHF-Diastolic, DVT, Hyperlipidemia, Myocardial Infarction, Pulmonary Embolism Pulmonary Medical History: Reports: Bronchitis, Chronic Obstructive Pulmonary Disease (COPD), Pneumonia Denies: Asthma Neurological Medical History: Denies: Migraine, Seizures Endocrine Medical History: Reports: Diabetes Mellitus Type 1, Diabetes Mellitus Type 2 Renal/ Medical History: Reports: Chronic Kidney Disease Stage IV, Hyperphosphatemia, Metabolic Acidosis GI Medical History: Reports: Gastroesophageal Reflux Disease Musculoskeltal Medical History: Reports: Arthritis Psychiatric Medical History: Infectious Medical History: Reports: HIV Past Surgical History Past Surgical History: Reports: Orthopedic Surgery - bilateral amputation, R BKA , L AKA, Vascular Surgery - stents right chest, left arm clot removed, IVC filter, Other - Endoscopy Social History Smoking Status: Smoker,Current Status Unk Cigarettes Packs Per Day: 1 Frequency of Alcohol Use: None Hx Recreational Drug Use: Yes Drugs: Cocaine Hx Prescription Drug Abuse: No - Advance Directive Resuscitation Status: Full Code Family History Parental Family History Reviewed: No Children Family History Reviewed: NA Sibling(s) Family History Reviewed.: NA Medication/Allergy Home Medications: Abacavir Sulfate [Ziagen] 600 mg PO DAILY 09/02/17 Albuterol Sulfate [Albuterol Sulfate 2.5mg/3 mL] 3 ml NEB Q8 09/02/17 Albuterol Sulfate [Ventolin HFA MDI 18 GM] 2 puff IH Q6HP PRN 09/02/17 Amlodipine Besylate [Norvasc 5 mg Tablet] 5 mg PO DAILY 09/02/17 Beclomethasone Dipropionate [Qvar] 2 puff IH Q12 09/02/17 Calcitriol [Rocaltrol 0.25 mcg Capsule] 0.25 mcg PO DAILY 09/02/17 Carvedilol [Coreg 25 mg Tablet] 25 mg PO Q12 09/02/17 Clonidine HCl [Catapres 0.1 mg Tablet] 0.1 mg PO Q12 09/02/17 Dolutegravir Sodium [Tivicay] 50 mg PO DAILY 09/02/17 Furosemide [Lasix 80 mg Tablet] 80 mg PO DAILY 09/02/17 Hydralazine HCl 100 mg PO Q8 09/02/17 Ipratropium/Albuterol Sulfate [Iprat-Albut 0.5-3(2.5) mg/3 ml] 3 ml NEB Q6 09/02 Isosorbide Mononitrate [Isosorbide Mononitrate ER] 120 mg PO DAILY 09/02/17 Lamivudine [Epivir] 50 mg PO DAILY 09/02/17 Nicotine [Nicoderm 21 mg/24 Hr Transderm Patch] 1 patch TOP DAILY 09/02/17 Nitroglycerin [Nitrostat] 0.4 mg SL Q5MP PRN 09/02/17 Pantoprazole Sodium [Protonix] 40 mg PO DAILY 09/02/17 Pravastatin Sodium [Pravachol] 40 mg PO DAILY 09/02/17 Sodium Bicarbonate [Sodium Bicarbonate 650 mg Tablet] 1,300 mg PO TID 09/02/17 Warfarin Sodium [Coumadin] 10 mg PO DAILY 09/02/17 Allergies/Adverse Reactions: No Known Allergies Allergy (Verified 08/11/17 09:44) Review of Systems Constitutional: PRESENT: headache(s). ABSENT: anorexia, chills, fever(s), weakness Eyes: ABSENT: visual disturbances Cardiovascular: PRESENT: dyspnea on exertion. ABSENT: chest pain, edema, orthropnea, palpitations Respiratory: PRESENT: cough, dyspnea Genitourinary: ABSENT: difficulty urinating, dysuria Musculoskeletal: ABSENT: muscle weakness Neurological: ABSENT: confusion, dizziness, numbness, weakness Physical Exam Vital Signs: Temp Pulse Resp BP Pulse Ox 97.8 F 81 18 166/90 H 96 09/02/17 13:52 09/02/17 13:52 09/02/17 13:52 09/02/17 13:52 09/02/17 13:52 Intake & Output 09/01/17 09/02/17 09/03/17 06:59 06:59 06:59 Weight 73 kg General appearance: PRESENT: no acute distress, well-developed, well-nourished Eye exam: PRESENT: PERRLA. ABSENT: scleral icterus Mouth exam: PRESENT: moist, neck supple Neck exam: PRESENT: full ROM. ABSENT: JVD Respiratory exam: PRESENT: crackles, rales, rhonchi, wheezes. ABSENT: accessory muscle use, clear to auscultation ramila Cardiovascular exam: PRESENT: RRR, +S1, +S2 GI/Abdominal exam: PRESENT: soft. ABSENT: ascites, firm, tenderness Extremities exam: PRESENT: pedal edema - -trace+ Musculoskeletal exam: PRESENT: normal inspection. ABSENT: tenderness Neurological exam: PRESENT: alert, awake, oriented to person, oriented to place , oriented to time, oriented to situation Psychiatric exam: PRESENT: appropriate affect, normal mood Skin exam: PRESENT: dry, intact, warm Results Impressions: Chest CT 09/02/17 00:00 IMPRESSION: 1. EMPHYSEMATOUS CHANGES. SMALL PLEURAL EFFUSIONS WITH LINEAR BASILAR ATELECTASIS/SCARRING. 2. CARDIOMEGALY. Chest X-Ray 09/02/17 06:15 IMPRESSION: Interval worsening includes a mild CHF pattern. Differential diagnosis includes small right basilar pneumonia/atelectasis. Assessment & Plan - Diagnosis (1) Acute and chronic respiratory failure Qualifiers: Respiratory failure complication: hypoxia Qualified Code(s): J96.21 - Acute and chronic respiratory failure with hypoxia Is this a current diagnosis for this admission?: Yes Plan: currently on O2 and duonebs. Also diuresing fluid off. Other differentials include COPD exacerbation and pneumonia. Pneumonia is less likely because the CT did no show strong evidence towards pneumonia. (2) Acute on chronic combined systolic and diastolic congestive heart failure Plan: Will continue current lasix regiment. May need metolazone if he does not react to being given the high dose lasix. Also agree with strict I/O's. (3) Chronic kidney disease, stage V (very severe) Plan: Patient looks to have worsening chronic kidney disease. This due to noncompliance with home bp medications and the current CHF exacerbation. 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 Currently there is no indication for dialysis. Will reassess fluid states tomorrow after he has received lasix for 24 hours. (4) Hypocalcemia Plan: starting him on PO calcium replacement, also checking a phos and PTH (5) HIV (human immunodeficiency virus infection) Plan: currently on antiretrovirals, getting a current CD4 count,last CD4 count was from 1 year ago (6) Hypertension Plan: currently better controlled, as fluid comes off he will be better controlled. Will reassess now that he is on home bp regiment. (8) Metabolic acidosis Plan: currently on sodium bicarb - Notes Notes: Patient case and care plan was discussed with Dr. Lowe.
[2017-09-02] MEDS: IPRATROPIUM/ALBUTEROL 0.5-2.5 MG/3 ML AMPUL NEB SCH (20:14)
[2017-09-02] MEDS: SODIUM BICARBONATE 650 MG TABLET PO SCH (21:45)
[2017-09-02] MEDS: HYDRALAZINE HCL 50 MG TABLET PO SCH (21:45)
[2017-09-02] MEDS: ATORVASTATIN CALCIUM 10 MG TABLET PO SCH (21:46)
[2017-09-02] MEDS: CLONIDINE HCL 0.1 MG TABLET PO SCH (21:47)
[2017-09-02] MEDS: WARFARIN SODIUM 5 MG TABLET PO SCH (21:47)
[2017-09-02] MEDS: CARVEDILOL 12.5 MG TABLET PO SCH (21:47)
[2017-09-02] MEDS ORDERED: (PENDING PHARMACY ID) (Hydralazine Hcl [Hydralazine Hcl] 100 MG) PO SCH (22:00)
[2017-09-02] MEDS ORDERED: BECLOMETHASONE DIPROPIONATE IH SCH (22:00)
[2017-09-02 23:45] LABS: URINE AMPHETAMINES SCREEN NEGATIVE; URINE BARBITURATES SCREEN NEGATIVE; URINE BENZODIAZEPINES SCREEN NEGATIVE; URINE MARIJUANA (THC) SCREEN NEGATIVE; URINE METHADONE SCREEN NEGATIVE; URINE PHENCYCLIDINE SCREEN NEGATIVE
[2017-09-02 23:47] LABS: URINE COCAINE SCREEN UNCONFIRMED POSITIVE
[2017-09-03] MEDS: IPRATROPIUM/ALBUTEROL 0.5-2.5 MG/3 ML AMPUL NEB SCH ×4 (01:37→20:45)
[2017-09-03] MEDS: SODIUM BICARBONATE 650 MG TABLET PO SCH ×3 (05:32→21:44)
[2017-09-03] MEDS: HYDRALAZINE HCL 50 MG TABLET PO SCH ×3 (05:32→21:45)
[2017-09-03] MEDS: FUROSEMIDE INJ/PF 40 MG/4 ML SDV IV SCH (05:32)
[2017-09-03 06:49] LABS: ABSOLUTE LYMPHOCYTES (AUTO) 1.9 10^3/uL (0.5-4.7); ABSOLUTE MONOCYTES (AUTO) 0.7 10^3/uL (0.1-1.4); ABSOLUTE NEUT (AUTO) 3.5 10^3/uL (1.7-8.2); BASOPHILS % (AUTO) 0.2 % (0-2); EOSINOPHILS % (AUTO) 0.2 % (0-6); HEMATOCRIT 33.3 % (37.9-51.0); HEMOGLOBIN 11.1 g/dL (13.5-17.0); LYMPHOCYTES % (AUTO) 30.7 % (13-45); MEAN CORPUSCULAR HEMOGLOBIN 29.5 pg (27.0-33.4); MEAN CORPUSCULAR HGB CONC 33.2 g/dL (32.0-36.0); MEAN CORPUSCULAR VOLUME 89 fl (80-97); MONOCYTES % (AUTO) 11.7 % (3-13); PLATELET COUNT 188 10^3/uL (150-450); RED BLOOD COUNT 3.75 10^6/uL (4.35-5.55); RED CELL DISTRIBUTION WIDTH 15.5 % (11.5-14.0); SEGMENTED NEUTROPHILS % (AUTO) 57.2 % (42-78); TOTAL CELLS COUNTED % (AUTO) 100 %; WHITE BLOOD COUNT 6.1 10^3/uL (4.0-10.5)
[2017-09-03 07:01] LABS: ALANINE AMINOTRANSFERASE 55 U/L (21-72); ALBUMIN 3.5 g/dL (3.5-5.0); ALKALINE PHOSPHATASE 105 U/L (38-126); ANION GAP 13 (5-19); ASPARTATE AMINO TRANSFERASE 30 U/L (17-59); BILIRUBIN,DIRECT 0.2 mg/dL (0.0-0.4); BILIRUBIN,TOTAL 0.2 mg/dL (0.2-1.3); BLOOD UREA NITROGEN 59 mg/dL (7-20); CALCIUM 7.8 mg/dL (8.4-10.2); CARBON DIOXIDE 18 mmol/L (22-30); CHLORIDE 111 mmol/L (98-107); CHOLESTEROL 141.04 mg/dL (0-200); GLUCOSE 107 mg/dL (75-110); POTASSIUM 3.9 mmol/L (3.6-5.0); SODIUM 141.6 mmol/L (137-145); TOTAL PROTEIN 5.7 g/dL (6.3-8.2); TRIGLYCERIDES 61 mg/dL (<150)
[2017-09-03 07:12] LABS: DIRECT LDL 76 mg/dL (<100)
[2017-09-03] MEDS: CALCITRIOL 0.25 MCG CAPSULE PO SCH (09:01)
[2017-09-03] MEDS: AMLODIPINE BESYLATE 5 MG TABLET PO SCH (09:03)
[2017-09-03] MEDS: DOCUSATE SODIUM 100 MG CAPSULE PO SCH (09:03)
[2017-09-03] MEDS: CLONIDINE HCL 0.1 MG TABLET PO SCH ×2 (09:04→21:48)
[2017-09-03] MEDS: CARVEDILOL 12.5 MG TABLET PO SCH ×2 (09:04→21:48)
[2017-09-03] MEDS: ISOSORBIDE MONONITRATE 60 MG TAB.ER.24H PO SCH (09:04)
--- NOTE | 2017-09-03 09:30 | EKG REPORT ---
SEVERITY:- ABNORMAL ECG - SINUS RHYTHM LEFT VENTRICULAR HYPERTROPHY ANTERIOR Q WAVES, POSSIBLY DUE TO LVH PROLONGED QT INTERVAL : Confirmed by: Beulah Storm 03-Sep-2017 09:29:38
--- NOTE | 2017-09-03 09:54 | RADIOLOGY REPORT (SQ) ---
EXAM DESCRIPTION: CHEST SINGLE VIEW COMPLETED DATE/TIME: 09/03/2017 9:41 am REASON FOR STUDY: chf COMPARISON: 09/02/2017 NUMBER OF VIEWS: One view. TECHNIQUE: Single frontal radiographic image of the chest acquired. LIMITATIONS: None. FINDINGS: LUNGS AND PLEURA: Increasing parenchymal density partially silhouetting the left diaphrag m. Residual subsegmental airspace disease in the right lower lobe. There is a background of chronic interstitial changes. MEDIASTINUM AND HEART: Stable heart size and mediastinal structures. BONY STRUCTURES: No acute findings. HARDWARE: None. OTHER: No other significant finding. IMPRESSION: Residual asymmetric edema versus superimposed infection or aspiration left lower lobe. Clinical correlation is needed. TECHNICAL DOCUMENTATION: JOB ID: [id number]
[2017-09-03] MEDS ORDERED: (PENDING PHARMACY ID) (Dolutegravir Sodium [Tivicay] 50 MG) PO SCH (10:00)
[2017-09-03] MEDS ORDERED: FUROSEMIDE 80 MG TABLET PO SCH (10:00)
[2017-09-03] MEDS ORDERED: (PENDING PHARMACY ID) (Isosorbide Mononitrate [Isosorbide Mononitrate Er] 120 MG) PO SCH (10:00)
[2017-09-03] MEDS ORDERED: (PENDING PHARMACY ID) (Warfarin Sodium [Coumadin] 10 MG) PO SCH (10:00)
[2017-09-03] MEDS ORDERED: CALCIUM CARBONATE 500 MG TABLET PO ONE (11:30)
[2017-09-03 13:14] LABS: APPEARANCE,URINE CLEAR; BILIRUBIN,URINE NEGATIVE (NEGATIVE); COLOR,URINE STRAW; GLUCOSE, URINE 50 mg/dL (NEGATIVE); KETONES,URINE NEGATIVE (NEGATIVE); LEUKOCYTE ESTERASE,URINE NEGATIVE (NEGATIVE); NITRITE,URINE NEGATIVE (NEGATIVE); PROTEIN,URINE 100 mg/dL (NEGATIVE); URINE SPECIFIC GRAVITY 1.005; UROBILINOGEN,URINE NEGATIVE mg/dL (<2.0)
[2017-09-03] MEDS ORDERED: 1/2 NORMAL SALINE 1,000 ML IV PRN (16:22)
[2017-09-03] MEDS: CALCIUM CARBONATE 500 MG TABLET PO SCH (17:01)
[2017-09-03] MEDS: LANSOPRAZOLE 30 MG TAB.RAP.DR PO SCH (17:01)
[2017-09-03] MEDS: NICOTINE 21 MG/24 HR PATCH.TD24 TOP SCH (17:01)
--- NOTE | 2017-09-03 17:05 | PDOC PROGRESS REPORT ---
Subjective Progress Note for:: 09/03/17 Reason For Visit: Patient sen today. He is generally feeling almost back to his old self.Dyspnea is relieved.No uremic symptoms. No chest pains. Labs and medications were reviewed with patient. I also did review his recent ECHO showing systolic/diastolic heart failure with EF of 40 %. Physical Exam Vital Signs: Temp Pulse Resp BP Pulse Ox 97.6 F 70 17 122/72 100 09/03/17 12:50 09/03/17 14:15 09/03/17 14:15 09/03/17 12:50 09/03/17 12:50 Intake & Output 09/02/17 09/03/17 09/04/17 06:59 06:59 06:59 Intake Total 425 Output Total 1400 Balance -975 Weight 73.9 kg General appearance: PRESENT: no acute distress Respiratory exam: PRESENT: clear to auscultation ramila. ABSENT: crackles, rhonchi Cardiovascular exam: PRESENT: RRR, +S1, +S2 GI/Abdominal exam: PRESENT: normal bowel sounds, soft. ABSENT: ascites, firm, organomegaly, tenderness Extremities exam: ABSENT: pedal edema Neurological exam: PRESENT: alert, awake, oriented to person, oriented to place , oriented to time Skin exam: PRESENT: dry. ABSENT: cyanosis, erythema Results Laboratory Results: 09/03/17 06:38 09/03/17 06:38 09/03/17 09/03/17 09/03/17 06:38 06:38 06:38 WBC 6.1 RBC 3.75 L Hgb 11.1 L Hct 33.3 L MCV 89 MCH 29.5 MCHC 33.2 RDW 15.5 H Plt Count 188 Seg Neutrophils % 57.2 Lymphocytes % 30.7 Monocytes % 11.7 Eosinophils % 0.2 Basophils % 0.2 Absolute Neutrophils 3.5 Absolute Lymphocytes 1.9 Absolute Monocytes 0.7 Absolute Eosinophils 0.0 Absolute Basophils 0.0 Sodium 141.6 Potassium 3.9 Chloride 111 H Carbon Dioxide 18 L Anion Gap 13 BUN 59 H Creatinine 7.35 H Est GFR ( Amer) 9 L Est GFR (Non-Af Amer) 8 L Glucose 107 Calcium 7.8 L Phosphorus Magnesium 2.2 Total Bilirubin 0.2 AST 30 ALT 55 Alkaline Phosphatase 105 Total Protein 5.7 L Albumin 3.5 Triglycerides 61 Cholesterol 141.04 LDL Cholesterol Direct 76 VLDL Cholesterol 12.0 HDL Cholesterol 57 TSH 0.28 L PTH Intact Urine Color Urine Appearance Urine pH Ur Specific [place] Urine Protein Urine Glucose (UA) Urine Ketones Urine Blood Urine Nitrite Ur Leukocyte Esterase Urine RBC (Auto) 09/03/17 09/03/17 09/03/17 06:38 12:24 12:35 WBC RBC Hgb Hct MCV MCH MCHC RDW Plt Count Seg Neutrophils % Lymphocytes % Monocytes % Eosinophils % Basophils % Absolute Neutrophils Absolute Lymphocytes Absolute Monocytes Absolute Eosinophils Absolute Basophils Sodium Potassium Chloride Carbon Dioxide Anion Gap BUN Creatinine Est GFR ( Amer) Est GFR (Non-Af Amer) Glucose Calcium Phosphorus 4.4 Magnesium Total Bilirubin AST ALT Alkaline Phosphatase Total Protein Albumin Triglycerides Cholesterol LDL Cholesterol Direct VLDL Cholesterol HDL Cholesterol TSH PTH Intact 680.4 H Urine Color STRAW Urine Appearance CLEAR Urine pH 7.0 Ur Specific [place] 1.005 Urine Protein 100 H Urine Glucose (UA) 50 H Urine Ketones NEGATIVE Urine Blood NEGATIVE Urine Nitrite NEGATIVE Ur Leukocyte Esterase NEGATIVE Urine RBC (Auto) 0 09/03/17 06:38 NT-Pro-B Natriuret Pep [id number] H Impressions: Chest CT 09/02/17 00:00 IMPRESSION: 1. EMPHYSEMATOUS CHANGES. SMALL PLEURAL EFFUSIONS WITH LINEAR BASILAR ATELECTASIS/SCARRING. 2. CARDIOMEGALY. Chest X-Ray 09/03/17 06:00 IMPRESSION: Residual asymmetric edema versus superimposed infection or aspiration left lower lobe. Clinical correlation is needed. Assessment & Plan - Diagnosis (1) Combined systolic and diastolic congestive heart failure Plan: Currently resloved. Overdiursed. So hold off diuretics and monitor. (2) Acute on chronic renal failure Qualifiers: Chronic kidney disease stage: stage 5, not on chronic dialysis Is this a current diagnosis for this admission?: Yes Plan: Initially from CHF and now over diuresis. Holding off diuretics temporarily and start gentle hydration. No acute indication for DIRECTOR COMPENSATION.Needs to follow as OP as he is very close to being on DIRECTOR COMPENSATION. Adv patient to follow with me as OP when released as he has failed to keep multiple appts earlier. (3) CKD stage 5 secondary to hypertension Plan: Now with WALT.Monitor. Needs OP follow up to start preparing for initiation of DIRECTOR COMPENSATION . (4) HIV (human immunodeficiency virus infection) Is this a current diagnosis for this admission?: Yes Plan: On HAART. (5) History of DVT (deep vein thrombosis) Is this a current diagnosis for this admission?: Yes (6) Hypertensive emergency Is this a current diagnosis for this admission?: Yes Plan: Improved. (7) Metabolic acidosis Plan: On bicarb.Monitor. (8) Secondary hyperparathyroidism (of renal origin) Plan: Began on Calcitriol.Monitor as OP.
--- NOTE | 2017-09-03 18:12 | PDOC PROGRESS REPORT ---
Subjective Progress Note for:: 09/03/17 Subjective:: Patient is a 62-year-old male who has multiple underlying medical problems to include chronic kidney disease stage V, both systolic and diastolic congestive heart failure and underlying HIV. He came in with uncontrolled hypertension and volume overload. He was diuresed. He is now back to baseline. However he has had an increase in his creatinine. Reason For Visit: HEART FAILURE,RENAL FAILURE,HIV Physical Exam Vital Signs: Temp Pulse Resp BP Pulse Ox 97.6 F 70 17 122/72 100 09/03/17 12:50 09/03/17 14:15 09/03/17 14:15 09/03/17 12:50 09/03/17 12:50 Intake & Output 09/02/17 09/03/17 09/04/17 06:59 06:59 06:59 Intake Total 425 Output Total 1400 Balance -975 Weight 73.9 kg Additional comments: The patient was on room air when I walked in. He does not appear to be uncomfortable whatsoever. His cognition and mentation are appropriate. His facial appearance is unremarkable. He had minimal crackles in the posterior lung fisher. His cardiac exam demonstrated a regular rate and rhythm without murmurs, gallops or rubs. The abdomen is soft and flat. The patient has bilateral amputations of the legs. Otherwise, his skin is clean, warm, dry and intact. Results Laboratory Results: 09/03/17 06:38 09/03/17 06:38 09/03/17 09/03/17 09/03/17 06:38 06:38 06:38 WBC 6.1 RBC 3.75 L Hgb 11.1 L Hct 33.3 L MCV 89 MCH 29.5 MCHC 33.2 RDW 15.5 H Plt Count 188 Seg Neutrophils % 57.2 Lymphocytes % 30.7 Monocytes % 11.7 Eosinophils % 0.2 Basophils % 0.2 Absolute Neutrophils 3.5 Absolute Lymphocytes 1.9 Absolute Monocytes 0.7 Absolute Eosinophils 0.0 Absolute Basophils 0.0 Sodium 141.6 Potassium 3.9 Chloride 111 H Carbon Dioxide 18 L Anion Gap 13 BUN 59 H Creatinine 7.35 H Est GFR ( Amer) 9 L Est GFR (Non-Af Amer) 8 L Glucose 107 Calcium 7.8 L Phosphorus Magnesium 2.2 Total Bilirubin 0.2 AST 30 ALT 55 Alkaline Phosphatase 105 Total Protein 5.7 L Albumin 3.5 Triglycerides 61 Cholesterol 141.04 LDL Cholesterol Direct 76 VLDL Cholesterol 12.0 HDL Cholesterol 57 TSH 0.28 L PTH Intact Urine Color Urine Appearance Urine pH Ur Specific [place] Urine Protein Urine Glucose (UA) Urine Ketones Urine Blood Urine Nitrite Ur Leukocyte Esterase Urine RBC (Auto) 09/03/17 09/03/17 09/03/17 06:38 12:24 12:35 WBC RBC Hgb Hct MCV MCH MCHC RDW Plt Count Seg Neutrophils % Lymphocytes % Monocytes % Eosinophils % Basophils % Absolute Neutrophils Absolute Lymphocytes Absolute Monocytes Absolute Eosinophils Absolute Basophils Sodium Potassium Chloride Carbon Dioxide Anion Gap BUN Creatinine Est GFR ( Amer) Est GFR (Non-Af Amer) Glucose Calcium Phosphorus 4.4 Magnesium Total Bilirubin AST ALT Alkaline Phosphatase Total Protein Albumin Triglycerides Cholesterol LDL Cholesterol Direct VLDL Cholesterol HDL Cholesterol TSH PTH Intact 680.4 H Urine Color STRAW Urine Appearance CLEAR Urine pH 7.0 Ur Specific [place] 1.005 Urine Protein 100 H Urine Glucose (UA) 50 H Urine Ketones NEGATIVE Urine Blood NEGATIVE Urine Nitrite NEGATIVE Ur Leukocyte Esterase NEGATIVE Urine RBC (Auto) 0 09/03/17 06:38 NT-Pro-B Natriuret Pep [id number] H Impressions: Chest CT 09/02/17 00:00 IMPRESSION: 1. EMPHYSEMATOUS CHANGES. SMALL PLEURAL EFFUSIONS WITH LINEAR BASILAR ATELECTASIS/SCARRING. 2. CARDIOMEGALY. Chest X-Ray 09/03/17 06:00 IMPRESSION: Residual asymmetric edema versus superimposed infection or aspiration left lower lobe. Clinical correlation is needed. Assessment & Plan - Diagnosis (1) Anticoagulated on Coumadin Is this a current diagnosis for this admission?: Yes (2) CHF (congestive heart failure) Qualifiers: Heart failure type: unspecified Heart failure chronicity: unspecified Qualified Code(s): I50.9 - Heart failure, unspecified Is this a current diagnosis for this admission?: Yes (3) CKD stage 5 secondary to hypertension Is this a current diagnosis for this admission?: Yes (4) COPD (chronic obstructive pulmonary disease) Is this a current diagnosis for this admission?: Yes (5) HIV (human immunodeficiency virus infection) Is this a current diagnosis for this admission?: Yes (6) Hypertensive urgency Is this a current diagnosis for this admission?: Yes - Time Time Spent with patient: 15-24 minutes - Inpatient Certification Medical Necessity: Failure to Improve With Outpatient Therapy, Significant Comorbidiites Make Outpatient Treatment Too Risky, Need Close Monitoring Due to Risk of Patient Decompensation, Risk of Complication if Not Cared For in Hospital - Plan Summary Plan Summary: Dr. Lowe's input is greatly appreciated. At this point in time we are not giving the patient any additional Lasix, but I will refrain from IV fluids. He is on therapy for metabolic acidosis. He will be continued on his HIV medications. We will repeat labs in the morning. Discharge is expected in the morning.
[2017-09-03] MEDS: WARFARIN SODIUM 5 MG TABLET PO SCH (21:45)
[2017-09-03] MEDS: ATORVASTATIN CALCIUM 10 MG TABLET PO SCH (21:48)
[2017-09-03] MEDS: ACETAMINOPHEN 325 MG TABLET PO PRN (23:42)
[2017-09-04] MEDS: IPRATROPIUM/ALBUTEROL 0.5-2.5 MG/3 ML AMPUL NEB SCH ×4 (02:24→21:06)
[2017-09-04] MEDS: HYDRALAZINE HCL 50 MG TABLET PO SCH ×3 (05:29→23:04)
[2017-09-04] MEDS: SODIUM BICARBONATE 650 MG TABLET PO SCH ×3 (05:30→23:05)
--- NOTE | 2017-09-04 08:45 | RADIOLOGY REPORT (SQ) ---
EXAM DESCRIPTION: CHEST SINGLE VIEW COMPLETED DATE/TIME: 09/04/2017 8:35 am REASON FOR STUDY: chf COMPARISON: 09/03/2017. EXAM PARAMETERS: NUMBER OF VIEWS: One view. TECHNIQUE: Single frontal radiographic view of the chest acquired. RADIATION DOSE: NA LIMITATIONS: None. FINDINGS: LUNGS AND PLEURA: There is no significant change in left retrocardiac infiltrate and right basilar infiltrate. Bilateral pleural thickening noted. MEDIASTINUM AND HILAR STRUCTURES: No masses . Contour normal. HEART AND VASCULAR STRUCTURES: Persistent cardiomegaly. The pulmonary vasculature is unchanged. BONES: Degenerative changes both AC joints. HARDWARE: None in the chest. OTHER: Postsurgical changes right axilla. IMPRESSION: Cardiomegaly. Persistent bibasilar infiltrates and pleural thickening. TECHNICAL DOCUMENTATION: JOB ID: [id number] [employer]- All Rights Reserved
--- NOTE | 2017-09-04 08:54 | EKG REPORT ---
SEVERITY:- ABNORMAL ECG - SINUS RHYTHM PROBABLE LEFT ATRIAL ABNORMALITY LEFT VENTRICULAR HYPERTROPHY ABNORMAL T, CONSIDER ISCHEMIA, LATERAL LEADS BORDERLINE PROLONGED QT INTERVAL : Confirmed by: Beulah Storm 04-Sep-2017 08:54:05
[2017-09-04] MEDS: ISOSORBIDE MONONITRATE 60 MG TAB.ER.24H PO SCH (10:18)
[2017-09-04] MEDS: CLONIDINE HCL 0.1 MG TABLET PO SCH ×2 (10:18→23:06)
[2017-09-04] MEDS: DOCUSATE SODIUM 100 MG CAPSULE PO SCH (10:19)
[2017-09-04] MEDS: CALCIUM CARBONATE 500 MG TABLET PO SCH ×2 (10:19→17:41)
[2017-09-04] MEDS: CALCITRIOL 0.25 MCG CAPSULE PO SCH (10:19)
[2017-09-04] MEDS: CARVEDILOL 12.5 MG TABLET PO SCH ×2 (10:20→23:05)
[2017-09-04] MEDS: AMLODIPINE BESYLATE 5 MG TABLET PO SCH (10:23)
[2017-09-04 11:40] LABS: % CD 4 POS LYMPH 20.3 % (30.8-58.5); ABSOLUTE CD 4 HELPER 203 /uL (359-1519); ABSOLUTE CD 8 SUPPRESSOR 650 /uL (109-897); CD BASOPHILS 0 % (Not Estab.); CD EOSINOPHILS 0 % (Not Estab.); CD MONOCYTES 1 % (Not Estab.); CD NEUTROPHILS 73 % (Not Estab.); CD4/CD8 RATIO 0.31 (0.92-3.72); HEMOGLOBIN 11.4 g/dL (13.0-17.7); IMMATURE GRANULOCYTES 0 % (Not Estab.); MCH 29.3 pg (26.6-33.0); MCHC 33.5 g/dL (31.5-35.7); MCV 87 fL (79-97); MONOCYTES(ABSOLUTE) 0.1 x10E3/uL (0.1-0.9); NEUTROPHILS(ABSOLUTE) 2.8 x10E3/uL (1.4-7.0); PLATELETS 222 x10E3/uL (150-379); RBC 3.89 x10E6/uL (4.14-5.80); RDW 15.6 % (12.3-15.4); WBC 3.8 x10E3/uL (3.4-10.8)
--- NOTE | 2017-09-04 11:41 | Physician Advisory Note ---
Physician Advisor ProgressNote .: Pursuant to the plan for [facility], I have reviewed the medical record for this patient. Physician Advisor Statement: Please consider documenting, if you agree: 1. "Acute on chronic systolic & diastolic CHF, evidenced by SOB, cough, orthopnea, rales, , cardiomegaly, & acute pleural effusions" 2. "Acute on chronic respiratory failure requiring more O2 than baseline initially" 3. "Anemia of CKD" 4. Please list Principal Dx requiring admission as dx #1 in each note. Thanks! CK
[2017-09-04 13:38] LABS: % CD 4 POS LYMPH 32.8 % (30.8-58.5); ABSOLUTE CD 4 HELPER 656 /uL (359-1519); ABSOLUTE CD 8 SUPPRESSOR 1100 /uL (109-897); CD BASOPHILS 0 % (Not Estab.); CD EOSINOPHILS 0 % (Not Estab.); CD MONOCYTES 12 % (Not Estab.); CD NEUTROPHILS 57 % (Not Estab.); HEMOGLOBIN 10.5 g/dL (13.0-17.7); IMMATURE GRANULOCYTES 0 % (Not Estab.); MCHC 33.1 g/dL (31.5-35.7); MCV 88 fL (79-97); MONOCYTES(ABSOLUTE) 0.8 x10E3/uL (0.1-0.9); NEUTROPHILS(ABSOLUTE) 3.7 x10E3/uL (1.4-7.0); PLATELETS 194 x10E3/uL (150-379); RBC 3.62 x10E6/uL (4.14-5.80); RDW 15.3 % (12.3-15.4); WBC 6.5 x10E3/uL (3.4-10.8)
--- NOTE | 2017-09-04 16:55 | RADIOLOGY REPORT (SQ) ---
EXAM DESCRIPTION: CAROTID DOPPLER COMPLETED DATE/TIME: 09/04/2017 4:44 pm REASON FOR STUDY: carotid bruit COMPARISON: None. TECHNIQUE: Grayscale ultrasound, Doppler velocity and spectra, and color Doppler images acquired of the extra-cranial carotid and vertebral arteries. Images stored on PACS. LIMITATIONS: None. FINDINGS: RIGHT CAROTID CCA Velocities: Within normal limits. ICA Velocities Peak systolic 0.68 m/s. End diastolic 0.24 m/s. Proximal ICA/CCA peak systolic ratio 0.6. Spectra normal. No significant plaque. LEFT CAROTID CCA Velocities: Within normal limits. ICA Velocities Peak systolic 0.80 m/s. End diastolic 0.23 m/s. Proximal ICA/CCA peak systolic ratio 0.8. Spectra normal. No significant plaque. VERTEBRAL ARTERIES: Antegrade flow. Normal waveforms. SUBCLAVIAN ARTERIES: No finding. OTHER: No other significant finding. IMPRESSION: NO HEMODYNAMICALLY SIGNIFICANT STENOSIS. COMMENT: Quality ID #[id number]: Velocity criteria are extrapolated from the diameter data as defined by t he Society of Radiologists in Ultrasound Consensus Conference. Radiology 2003: 229; 340-346. TECHNICAL DOCUMENTATION: JOB ID: [id number] [employer]- All Rights Reserved
--- NOTE | 2017-09-04 17:06 | PDOC PROGRESS REPORT ---
Subjective Progress Note for:: 09/04/17 Subjective:: The patient presented with acute on chronic systolic and diastolic congestive heart failure. He presented with respiratory distress, shortness of breath, cough, orthopnea, rails. He required noninvasive ventilation with BiPAP followed by oxygen. His radiographs indicated cardiomegaly and acute pleural effusions consistent with acute congestive heart failure exacerbation. The patient is now on room air. He was initially treated with noninvasive ventilation and Lasix. However, he did have an increase in his creatinine and therefore the Lasix was discontinued. Carotid Dopplers were performed and they do not show any significant stenosis. Nephrology has been consulted and they are assisting with management. Supplemental calcium has been added. The patient remains on bicarbonate for his metabolic acidosis. Dr. Lowe also wants to get Doppler information prior to when the patient leaves. I am assuming that this will assist with planning and management for dialysis access. Reason For Visit: HEART FAILURE,RENAL FAILURE,HIV Physical Exam Vital Signs: Temp Pulse Resp BP Pulse Ox 97.3 F 67 18 140/93 H 100 09/04/17 08:41 09/04/17 14:00 09/04/17 08:41 09/04/17 08:41 09/04/17 08:41 Intake & Output 09/03/17 09/04/17 09/05/17 06:59 06:59 06:59 Intake Total 425 3285 Output Total 1400 2250 Balance -975 1035 Weight 73.9 kg 72.8 kg Additional comments: The patient is sitting up in bed. He is on room air. He does complain of a slight sore throat but says this is been present well before this current admission. His facial appearance and oropharynx are benign. The patient's lungs are clear again today. They are both clear both anteriorly and posteriorly. His cardiac exam is slightly distant but regular. I do not appreciate any murmurs, gallops or rubs. The patient's abdominal exam is benign. He does not have any guarding or rebound noted there are no hernias or masses present. The patient is a bilateral amputee. Results Laboratory Results: 09/03/17 06:38 09/03/17 06:38 09/03/17 06:38 NT-Pro-B Natriuret Pep [id number] H Impressions: Chest CT 09/02/17 00:00 IMPRESSION: 1. EMPHYSEMATOUS CHANGES. SMALL PLEURAL EFFUSIONS WITH LINEAR BASILAR ATELECTASIS/SCARRING. 2. CARDIOMEGALY. Carotid Doppler Study 09/04/17 00:00 IMPRESSION: NO HEMODYNAMICALLY SIGNIFICANT STENOSIS. Chest X-Ray 09/04/17 06:00 IMPRESSION: Cardiomegaly. Persistent bibasilar infiltrates and pleural thickening. Assessment & Plan - Diagnosis (1) CHF (congestive heart failure) Qualifiers: Heart failure type: unspecified Heart failure chronicity: unspecified Qualified Code(s): I50.9 - Heart failure, unspecified Is this a current diagnosis for this admission?: Yes (2) Hypertensive urgency Is this a current diagnosis for this admission?: Yes (3) Anticoagulated on Coumadin Is this a current diagnosis for this admission?: Yes (4) CKD stage 5 secondary to hypertension Is this a current diagnosis for this admission?: Yes (5) COPD (chronic obstructive pulmonary disease) Is this a current diagnosis for this admission?: Yes (6) HIV (human immunodeficiency virus infection) Is this a current diagnosis for this admission?: Yes - Time Time Spent with patient: 15-24 minutes - Plan Summary Plan Summary: The patient presented with acute on chronic decompensated systolic and diastolic congestive heart failure. He presented with respiratory distress initially requiring noninvasive ventilation. He was then titrated to supplemental oxygen. After diuresis with Lasix he is now on room air. Additional doses of Lasix have been held per nephrology's recommendation secondary to an increase in the patient's creatinine. He has underlying chronic kidney disease stage V which is being managed intermittently with Lasix. He is receiving supplemental bicarbonate, calcitriol and he now he is on calcium. He will need access for dialysis which is thought will be needed in the near future. He had carotid Dopplers today which did not demonstrate any significant disease. HIV labs are pending at this time.
[2017-09-04] MEDS: NICOTINE 21 MG/24 HR PATCH.TD24 TOP SCH (17:42)
[2017-09-04] MEDS: LANSOPRAZOLE 30 MG TAB.RAP.DR PO SCH (17:43)
--- NOTE | 2017-09-04 20:57 | PDOC PROGRESS REPORT ---
Subjective Progress Note for:: 09/04/17 Subjective:: Patient was seen sitting up in his bed. At the time he was not short of breath but he was complaining of a sore throat. Reason For Visit: HEART FAILURE,RENAL FAILURE,HIV Physical Exam Vital Signs: Temp Pulse Resp BP Pulse Ox 98.1 F 83 16 132/68 H 98 09/04/17 16:03 09/04/17 16:03 09/04/17 16:03 09/04/17 16:03 09/04/17 16:03 Intake & Output 09/03/17 09/04/17 09/05/17 06:59 06:59 06:59 Intake Total 425 3285 980 Output Total 1400 2250 900 Balance -975 1035 80 Weight 73.9 kg 72.8 kg General appearance: PRESENT: no acute distress, well-developed, well-nourished Mouth exam: PRESENT: moist, neck supple Throat exam: ABSENT: post pharyngeal erythema, tonsillar exudate Neck exam: PRESENT: full ROM. ABSENT: JVD, lymphadenopathy, tracheal deviation Respiratory exam: PRESENT: clear to auscultation ramila. ABSENT: accessory muscle use, crackles, rales, rhonchi, wheezes Cardiovascular exam: PRESENT: RRR, +S1, +S2 GI/Abdominal exam: PRESENT: normal bowel sounds, soft. ABSENT: ascites, firm, organomegaly, tenderness Extremities exam: ABSENT: joint swelling, pedal edema, tenderness Musculoskeletal exam: PRESENT: deformity - -BKA left and right. ABSENT: normal inspection, tenderness Neurological exam: PRESENT: alert, awake, oriented to person, oriented to place , oriented to time, oriented to situation Psychiatric exam: PRESENT: agitated. ABSENT: anxious Skin exam: PRESENT: dry, intact, warm Results Laboratory Results: 09/03/17 06:38 09/03/17 06:38 09/04/17 06:38 Free T4 1.30 09/03/17 06:38 NT-Pro-B Natriuret Pep [id number] H Impressions: Chest CT 09/02/17 00:00 IMPRESSION: 1. EMPHYSEMATOUS CHANGES. SMALL PLEURAL EFFUSIONS WITH LINEAR BASILAR ATELECTASIS/SCARRING. 2. CARDIOMEGALY. Carotid Doppler Study 09/04/17 00:00 IMPRESSION: NO HEMODYNAMICALLY SIGNIFICANT STENOSIS. Chest X-Ray 09/04/17 06:00 IMPRESSION: Cardiomegaly. Persistent bibasilar infiltrates and pleural thickening. Assessment & Plan - Diagnosis (1) Acute and chronic respiratory failure Qualifiers: Respiratory failure complication: hypoxia Qualified Code(s): J96.21 - Acute and chronic respiratory failure with hypoxia Is this a current diagnosis for this admission?: Yes Plan: After a day of hydration will assess the kidney function. Labs that were ordered today were not drawn. If labs are not drawn tomorrow patient can be followed up as out patient at Dr. Lowe' office (2) Acute on chronic combined systolic and diastolic congestive heart failure Is this a current diagnosis for this admission?: Yes Plan: looks to have resolved (5) HIV (human immunodeficiency virus infection) Is this a current diagnosis for this admission?: Yes Plan: currently on HAART (6) Hypertension Plan: looks to be better controlled (7) Cocaine abuse Is this a current diagnosis for this admission?: Yes - Notes Notes: Patients case and plan was discussed with Dr. Lowe.
[2017-09-04] MEDS ORDERED: SODIUM CHLORIDE NASAL SPRAY 44 ML NASL PRN (21:30)
[2017-09-04] MEDS: ACETAMINOPHEN 325 MG TABLET PO PRN (21:58)
[2017-09-04] MEDS: WARFARIN SODIUM 5 MG TABLET PO SCH (23:06)
[2017-09-04] MEDS: ATORVASTATIN CALCIUM 10 MG TABLET PO SCH (23:07)
[2017-09-05] MEDS: IPRATROPIUM/ALBUTEROL 0.5-2.5 MG/3 ML AMPUL NEB SCH ×3 (02:17→14:24)
[2017-09-05] MEDS: SODIUM BICARBONATE 650 MG TABLET PO SCH ×2 (06:41→13:00)
[2017-09-05] MEDS: HYDRALAZINE HCL 50 MG TABLET PO SCH ×2 (06:42→13:00)
[2017-09-05 07:27] LABS: ALANINE AMINOTRANSFERASE 41 U/L (21-72); ALBUMIN 3.4 g/dL (3.5-5.0); ALKALINE PHOSPHATASE 82 U/L (38-126); ANION GAP 14 (5-19); ASPARTATE AMINO TRANSFERASE 17 U/L (17-59); BILIRUBIN,TOTAL < 0.1 mg/dL (0.2-1.3); BLOOD UREA NITROGEN 64 mg/dL (7-20); CALCIUM 7.6 mg/dL (8.4-10.2); CARBON DIOXIDE 19 mmol/L (22-30); CHLORIDE 108 mmol/L (98-107); GLUCOSE 84 mg/dL (75-110); POTASSIUM 4.4 mmol/L (3.6-5.0); SODIUM 140.6 mmol/L (137-145); TOTAL PROTEIN 5.5 g/dL (6.3-8.2)
[2017-09-05] MEDS: CLONIDINE HCL 0.1 MG TABLET PO SCH (09:09)
[2017-09-05] MEDS: ISOSORBIDE MONONITRATE 60 MG TAB.ER.24H PO SCH (09:09)
[2017-09-05] MEDS: CALCITRIOL 0.25 MCG CAPSULE PO SCH (09:10)
[2017-09-05] MEDS: DOCUSATE SODIUM 100 MG CAPSULE PO SCH (09:10)
[2017-09-05] MEDS: CARVEDILOL 12.5 MG TABLET PO SCH (09:11)
[2017-09-05] MEDS: CALCIUM CARBONATE 500 MG TABLET PO SCH (09:11)
[2017-09-05] MEDS: AMLODIPINE BESYLATE 5 MG TABLET PO SCH (09:11)
[2017-09-05 09:35] LABS: INTERNATIONAL RATION (INR) 1.66; PROTHROMBIN TIME 20.6 SEC (11.4-15.4)
[2017-09-05 10:51] LABS: HIV-1 RNA PCR QUANT <20 copies/mL (.)
--- NOTE | 2017-09-05 11:03 | EKG REPORT ---
SEVERITY:- ABNORMAL ECG - SINUS RHYTHM LEFT VENTRICULAR HYPERTROPHY ABNORMAL T, CONSIDER ISCHEMIA, LATERAL LEADS VS LVH PROLONGED QT INTERVAL : Confirmed by: Beulah Storm 05-Sep-2017 11:02:10
--- NOTE | 2017-09-05 12:08 | RADIOLOGY REPORT (SQ) ---
EXAM DESCRIPTION: CHEST SINGLE VIEW COMPLETED DATE/TIME: 09/05/2017 10:17 am REASON FOR STUDY: chf COMPARISON: 09/04/2017 NUMBER OF VIEWS: One view. TECHNIQUE: Single frontal radiographic image of the chest acquired. LIMITATIONS: None. FINDINGS: LUNGS AND PLEURA: Improved aeration in the right lung. Persistent small left pleural effu hever and associated airspace disease. MEDIASTINUM AND HEART: Stable heart size and mediastinal structures. BONY STRUCTURES: No acute findings. HARDWARE: None. OTHER: No other significant finding. IMPRESSION: Improving CHF. TECHNICAL DOCUMENTATION: JOB ID: [id number]
--- NOTE | 2017-09-05 12:52 | PDOC DISCHARGE SUMMARY ---
General - Admit/Disc Date/PCP Admission Date/Primary Care Provider: 09/02/17 10:31 Discharge Date: 09/05/17 - Discharge Diagnosis (1) CHF (congestive heart failure) Is this a current diagnosis for this admission?: Yes (2) Hypertensive urgency Is this a current diagnosis for this admission?: Yes (3) Anticoagulated on Coumadin Is this a current diagnosis for this admission?: Yes (4) CKD stage 5 secondary to hypertension Is this a current diagnosis for this admission?: Yes (5) COPD (chronic obstructive pulmonary disease) Is this a current diagnosis for this admission?: Yes (6) HIV (human immunodeficiency virus infection) Is this a current diagnosis for this admission?: Yes - Additional Information Resuscitation Status: Full Code Discharge Diet: Cardiac, Other (Comments) Discharge Activity: Activity As Tolerated, Balance Activity w/Rest Home Medications: Abacavir Sulfate [Ziagen] 600 mg PO DAILY 09/02/17 Albuterol Sulfate [Albuterol Sulfate 2.5mg/3 mL] 3 ml NEB Q8 09/02/17 Albuterol Sulfate [Ventolin HFA MDI 18 GM] 2 puff IH Q6HP PRN 09/02/17 Amlodipine Besylate [Norvasc 5 mg Tablet] 5 mg PO DAILY 09/02/17 Beclomethasone Dipropionate [Qvar] 2 puff IH Q12 09/02/17 Calcitriol [Rocaltrol 0.25 mcg Capsule] 0.25 mcg PO DAILY 09/02/17 Carvedilol [Coreg 25 mg Tablet] 25 mg PO Q12 09/02/17 Clonidine HCl [Catapres 0.1 mg Tablet] 0.1 mg PO Q12 09/02/17 Dolutegravir Sodium [Tivicay] 50 mg PO DAILY 09/02/17 Furosemide [Lasix 80 mg Tablet] 80 mg PO DAILY 09/02/17 Hydralazine HCl 100 mg PO Q8 09/02/17 Ipratropium/Albuterol Sulfate [Iprat-Albut 0.5-3(2.5) mg/3 ml] 3 ml NEB Q6 09/02 Isosorbide Mononitrate [Isosorbide Mononitrate ER] 120 mg PO DAILY 09/02/17 Lamivudine [Epivir] 50 mg PO DAILY 09/02/17 Nicotine [Nicoderm 21 mg/24 Hr Transderm Patch] 1 patch TOP DAILY 09/02/17 Nitroglycerin [Nitrostat] 0.4 mg SL Q5MP PRN 09/02/17 Pantoprazole Sodium [Protonix] 40 mg PO DAILY 09/02/17 Pravastatin Sodium [Pravachol] 40 mg PO DAILY 09/02/17 Sodium Bicarbonate [Sodium Bicarbonate 650 mg Tablet] 1,300 mg PO TID 09/02/17 Warfarin Sodium [Coumadin] 10 mg PO DAILY 09/02/17 Calcium Carbonate [Os-Farhad 500 mg Tablet (Oyster-Shell)] 500 mg PO BID tablet Sodium Chloride [Venango Nasal Telferner 44 ml Bottle] 1 spray NASL Q4HP PRN bottle 09/05/17 History of Present Illness History of Present Illness: KRISTY CANTU is a 62 year old male. The patient is an extremely pleasant but unfortunate 62-year-old -English male. His past medical history is significant for chronic kidney disease stage V. He has not yet been transitioned to dialysis. He apparently has been seen referred to Dr. Lowe's office but his nose showed a rescheduled on several occasions. In addition the patient has a history of peripheral vascular disease and has bilateral amputations of his lower extremities. He has known congestive heart failure, hypertension, COPD etc. as well as cocaine abuse. He also has a history of HIV maintained on antiretrovirals. He states his last viral load was undetectable. In any event the patient presented to the emergency room with increased shortness of breath and cough. He states that he was unable to lay flat. In the emergency room labs were drawn revealing a creatinine of 6.8, BNP of 35,000 , CO2 of 17 and a calcium of 8.0. He was treated with IV Lasix. A chest x-ray and CT scan of the chest were both performed which revealed volume overload due to see congestive heart failure. There was no evidence of pneumonia. Hospital Course Hospital Course: The patient presented with acute on chronic systolic and diastolic congestive heart failure. He presented with respiratory distress, shortness of breath, cough, orthopnea, rales on exam. He required noninvasive ventilation with BiPAP followed by oxygen. His radiographs indicated cardiomegaly and acute pleural effusions consistent with acute congestive heart failure exacerbation. The patient is now on room air. He was initially treated with noninvasive ventilation and Lasix. However, he did have an increase in his creatinine and therefore the Lasix was discontinued. Carotid Dopplers were performed and they do not show any significant stenosis. Nephrology has been consulted and they are assisting with management. Supplemental calcium has been added. The patient remains on bicarbonate for his metabolic acidosis. The patient also has a history of cocaine use. His tox screen is positive for cocaine. At the present time the patient is on all of his routine medications. He is on room air. He appears to be back to his baseline. Dr. Lowe has arranged for the patient have close follow-up as he is nearing the need for dialysis. Physical Exam Vital Signs: Temp Pulse Resp BP Pulse Ox 98.0 F 73 16 130/73 H 97 09/05/17 11:27 09/05/17 11:27 09/05/17 11:27 09/05/17 11:27 09/05/17 11:27 Intake & Output 09/04/17 09/05/17 09/06/17 06:59 06:59 06:59 Intake Total 3285 1485 Output Total 2250 1350 Balance 1035 135 Weight 72.8 kg 73.4 kg Additional comments: The patient was not in any distress this morning. His cognition and mentation are appropriate. He is again extremely pleasant and polite. His facial appearance is unremarkable. His lungs remain clear to auscultation bilaterally. His cardiac exam is regular. I do not appreciate any murmurs, gallops or rubs. The abdomen is soft. Bowel sounds are present in the lower quadrants. He does not have guarding or rebound present. There are no hernias or masses present. The patient is a bilateral amputee. Results Laboratory Results: 09/03/17 06:38 09/05/17 07:03 09/04/17 09/05/17 06:38 07:03 Sodium 140.6 Potassium 4.4 Chloride 108 H Carbon Dioxide 19 L Anion Gap 14 BUN 64 H Creatinine 6.97 H Est GFR ( Amer) 10 L Est GFR (Non-Af Amer) 8 L Glucose 84 Calcium 7.6 L Total Bilirubin < 0.1 L AST 17 ALT 41 Alkaline Phosphatase 82 Total Protein 5.5 L Albumin 3.4 L Free T4 1.30 09/03/17 06:38 NT-Pro-B Natriuret Pep 58223 H Impressions: Chest CT 09/02/17 00:00 IMPRESSION: 1. EMPHYSEMATOUS CHANGES. SMALL PLEURAL EFFUSIONS WITH LINEAR BASILAR ATELECTASIS/SCARRING. 2. CARDIOMEGALY. Carotid Doppler Study 09/04/17 00:00 IMPRESSION: NO HEMODYNAMICALLY SIGNIFICANT STENOSIS. Chest X-Ray 09/05/17 06:00 IMPRESSION: Improving CHF. Plan Discharge Plan: The patient will be discharged to home. He will need close follow-up with Dr. Lowe of nephrology. He will need to initiate dialysis in the near future. The patient will also be an panel to a new primary care provider and he will continue to follow-up with his HIV specialist. Time Spent: Less than 30 Minutes
[2017-09-05 13:55] VITALS: BP 132/70
--- NOTE | 2017-09-05 14:52 | PDOC PROGRESS REPORT ---
Subjective Progress Note for:: 09/05/17 Subjective:: Patient was seen sitting in his chair. He was comfortable and said that his throat no longer hurt. He said that he is ready to get out of the hospital. Reason For Visit: HEART FAILURE,RENAL FAILURE,HIV Physical Exam Vital Signs: Temp Pulse Resp BP Pulse Ox 98.0 F 73 16 132/70 H 97 09/05/17 13:53 09/05/17 13:53 09/05/17 13:53 09/05/17 13:53 09/05/17 13:53 Intake & Output 09/04/17 09/05/17 09/06/17 06:59 06:59 06:59 Intake Total 3285 1485 Output Total 2250 1350 Balance 1035 135 Weight 72.8 kg 73.4 kg General appearance: PRESENT: no acute distress, well-developed, well-nourished Mouth exam: PRESENT: moist, neck supple Throat exam: ABSENT: post pharyngeal erythema, tonsillar erythema, tonsillar exudate, tonsillogmegaly Neck exam: PRESENT: full ROM. ABSENT: JVD, lymphadenopathy Respiratory exam: PRESENT: clear to auscultation ramila. ABSENT: accessory muscle use, crackles, rales, rhonchi, wheezes Cardiovascular exam: PRESENT: RRR, +S1, +S2 GI/Abdominal exam: PRESENT: normal bowel sounds, soft. ABSENT: ascites, firm, organomegaly, tenderness Extremities exam: ABSENT: pedal edema, tenderness Musculoskeletal exam: PRESENT: deformity - Bilaterial BKA. ABSENT: tenderness Neurological exam: PRESENT: alert, awake, oriented to person, oriented to place , oriented to time, oriented to situation Psychiatric exam: PRESENT: appropriate affect, normal mood Skin exam: PRESENT: dry, intact, warm Results Laboratory Results: 09/03/17 06:38 09/05/17 07:03 09/04/17 09/05/17 06:38 07:03 Sodium 140.6 Potassium 4.4 Chloride 108 H Carbon Dioxide 19 L Anion Gap 14 BUN 64 H Creatinine 6.97 H Est GFR ( Amer) 10 L Est GFR (Non-Af Amer) 8 L Glucose 84 Calcium 7.6 L Total Bilirubin < 0.1 L AST 17 ALT 41 Alkaline Phosphatase 82 Total Protein 5.5 L Albumin 3.4 L Free T4 1.30 09/03/17 06:38 NT-Pro-B Natriuret Pep [id number] H Impressions: Chest CT 09/02/17 00:00 IMPRESSION: 1. EMPHYSEMATOUS CHANGES. SMALL PLEURAL EFFUSIONS WITH LINEAR BASILAR ATELECTASIS/SCARRING. 2. CARDIOMEGALY. Carotid Doppler Study 09/04/17 00:00 IMPRESSION: NO HEMODYNAMICALLY SIGNIFICANT STENOSIS. Chest X-Ray 09/05/17 06:00 IMPRESSION: Improving CHF. Assessment & Plan - Diagnosis (1) Acute and chronic respiratory failure Qualifiers: Respiratory failure complication: hypoxia Qualified Code(s): J96.21 - Acute and chronic respiratory failure with hypoxia Is this a current diagnosis for this admission?: Yes Plan: resolved (2) Acute on chronic combined systolic and diastolic congestive heart failure Is this a current diagnosis for this admission?: Yes Plan: resolved (3) Chronic kidney disease, stage V (very severe) Plan: looks to be remaining in the 6s, closely evaluate as outpatient. (4) Renal osteodystrophy Plan: PTH was elevated, starting on calcitriol (5) Hypocalcemia Plan: corrected calcium is 8.2, on calcium replacement. (6) HIV (human immunodeficiency virus infection) Is this a current diagnosis for this admission?: Yes Plan: currently on HAART (7) Hypertension Plan: looks to be better controlled (8) Cocaine abuse Is this a current diagnosis for this admission?: Yes
== END 2017-09-05 14:46 | disposition home or self-care (01) | DRG 291 ==
LOC: ER 05:40 → EH 10:31 → 3S 13:31
PROVIDERS: ADMIT Emergency Medicine; ATTEND Emergency Medicine
DX: I13.2 Hypertensive heart and chronic kidney disease with heart failure and with stage 5 chronic kidney disease, or end stage renal disease (principal); B20 Human immunodeficiency virus [HIV] disease; I50.43 Acute on chronic combined systolic (congestive) and diastolic (congestive) heart failure; J96.21 Acute and chronic respiratory failure with hypoxia; N17.9 Acute kidney failure, unspecified; N18.5 Chronic kidney disease, stage 5; N25.81 Secondary hyperparathyroidism of renal origin; E87.2 Acidosis; I16.0 Hypertensive urgency; E11.22 Type 2 diabetes mellitus with diabetic chronic kidney disease; J44.9 Chronic obstructive pulmonary disease, unspecified; D63.1 Anemia in chronic kidney disease; E83.51 Hypocalcemia; K21.9 Gastro-esophageal reflux disease without esophagitis; J02.9 Acute pharyngitis, unspecified; I73.9 Peripheral vascular disease, unspecified; F14.10 Cocaine abuse, uncomplicated; F17.210 Nicotine dependence, cigarettes, uncomplicated; Z79.01 Long term (current) use of anticoagulants; Z79.51 Long term (current) use of inhaled steroids; Z79.899 Other long term (current) drug therapy; Z89.512 Acquired absence of left leg below knee; Z89.511 Acquired absence of right leg below knee; Z91.19 Patient's noncompliance with other medical treatment and regimen
CPT/HCPCS: 36415; 71045; 71250; 80048; 80053; 80061; 80076; 80307; 81001; 82550; 82553; 82803; 82962; 83036; 83735; 83880; 83970; 84100; 84439; 84443; 84484; 85025; 85610; 85730; 86360; 87086; 87088; 87186; 87536; 93005; 93010; 93880; 94640; 96374; 99285; J1940; J3490; J7620

== ENCOUNTER 2017-09-08 05:42 | Emergency (ER) | payer MEDICAID ==
[2017-09-08] MEDS ORDERED: FUROSEMIDE INJ/PF 40 MG/4 ML SDV IV ONE (06:25)
[2017-09-08] MEDS ORDERED: HYDRALAZINE HCL 50 MG TABLET PO ONE (06:27)
[2017-09-08] MEDS ORDERED: CLONIDINE HCL 0.1 MG TABLET PO ONE (06:27)
--- NOTE | 2017-09-08 06:45 | EKG REPORT ---
SEVERITY:- ABNORMAL ECG - SINUS RHYTHM PROBABLE LEFT ATRIAL ABNORMALITY LEFT VENTRICULAR HYPERTROPHY PROLONGED QT INTERVAL : Confirmed by: Marco Young MD 08-Sep-2017 06:45:14
[2017-09-08 06:49] LABS: ABSOLUTE BASOPHILS # (AUTO) 0.1 10^3/uL (0.0-0.2); ABSOLUTE EOSINOPHILS # (AUTO) 0.1 10^3/uL (0.0-0.6); ABSOLUTE LYMPHOCYTES (AUTO) 2.1 10^3/uL (0.5-4.7); ABSOLUTE MONOCYTES (AUTO) 0.6 10^3/uL (0.1-1.4); ABSOLUTE NEUT (AUTO) 3.1 10^3/uL (1.7-8.2); BASOPHILS % (AUTO) 0.9 % (0-2); EOSINOPHILS % (AUTO) 2.2 % (0-6); HEMATOCRIT 32.9 % (37.9-51.0); HEMOGLOBIN 10.9 g/dL (13.5-17.0); LYMPHOCYTES % (AUTO) 35.3 % (13-45); MEAN CORPUSCULAR HEMOGLOBIN 29.7 pg (27.0-33.4); MEAN CORPUSCULAR HGB CONC 33.3 g/dL (32.0-36.0); MEAN CORPUSCULAR VOLUME 89 fl (80-97); MONOCYTES % (AUTO) 9.5 % (3-13); PLATELET COUNT 199 10^3/uL (150-450); RED BLOOD COUNT 3.69 10^6/uL (4.35-5.55); RED CELL DISTRIBUTION WIDTH 15.4 % (11.5-14.0); SEGMENTED NEUTROPHILS % (AUTO) 52.1 % (42-78); TOTAL CELLS COUNTED % (AUTO) 100 %; WHITE BLOOD COUNT 5.9 10^3/uL (4.0-10.5)
[2017-09-08 06:54] LABS: INTERNATIONAL RATION (INR) 2.57; PROTHROMBIN TIME 28.9 SEC (11.4-15.4)
--- NOTE | 2017-09-08 07:17 | RADIOLOGY REPORT (SQ) ---
EXAM DESCRIPTION: CHEST SINGLE VIEW CLINICAL HISTORY: 62 years Male, cp COMPARISON: 09/05/17 NUMBER OF VIEWS/TECHNIQUE: 1/AP LIMITATIONS: None. FINDINGS: Mild interstitial markings, small streakiness of the right lung base, improved aeration of the left lung base, small blunting-effusion of bilateral costophrenic angles, small right hilar fullness, no pneumothorax, moderate enlargement cardiac silhouette, right upper thoracic clips. No acute bone defect. IMPRESSION: No significant change.
[2017-09-08 08:27] LABS: ALANINE AMINOTRANSFERASE 87 U/L (21-72); ALBUMIN 3.3 g/dL (3.5-5.0); ALKALINE PHOSPHATASE 90 U/L (38-126); ANION GAP 11 (5-19); ASPARTATE AMINO TRANSFERASE 92 U/L (17-59); BILIRUBIN,DIRECT 0.3 mg/dL (0.0-0.4); BILIRUBIN,TOTAL 0.3 mg/dL (0.2-1.3); BLOOD UREA NITROGEN 63 mg/dL (7-20); CALCIUM 7.3 mg/dL (8.4-10.2); CARBON DIOXIDE 19 mmol/L (22-30); CHLORIDE 112 mmol/L (98-107); CREATINE KINASE 76 U/L (55-170); GLUCOSE 92 mg/dL (75-110); POTASSIUM 4.2 mmol/L (3.6-5.0); SODIUM 141.6 mmol/L (137-145); TOTAL PROTEIN 5.7 g/dL (6.3-8.2)
[2017-09-08 08:37] LABS: CREATINE KINASE MB 1.07 ng/mL (<4.55)
[2017-09-08 08:40] LABS: TROPONIN I 0.035 ng/mL
--- NOTE | 2017-09-08 08:55 | ER Document Report ---
ED General - General Chief Complaint: Breathing Difficulty Stated Complaint: CHEST PAIN,PRESSURE Time Seen by Provider: 09/08/17 06:14 TRAVEL OUTSIDE OF THE [place] IN LAST 30 DAYS: No - HPI Patient complains to provider of: Shortness of breath chest pressure Notes: Patient coming in for evaluation shortness of breath and chest pressure. Patient recently seen by myself in admitted for acute exacerbation of CHF. Patient also has HIV COPD and renal failure. At that time patient was discharged plans for the patient start dialysis approximately 2 weeks. Patient states otherwise compliant with medication workup around 1 2:00 was and chest pressure and shortness of breath. Upon my evaluation patient sleeping easily arousable. Patient on monitor no signs of tachycardia or hypoxia. Again patient is compliant with his medication. Denies any fever chills abdominal pain denies any chest pain at this time. Patient is complaining of his right BKA stump being slightly swollen. - Related Data Allergies/Adverse Reactions: No Known Allergies Allergy (Verified 08/11/17 09:44) Past Medical History - Social History Smoking Status: Unknown if Ever Smoked Family History: CAD, CVA, DM, Hyperlipidemia, Hypertension, Malignancy Patient has suicidal ideation: No Patient has homicidal ideation: No - Past Medical History Cardiac Medical History: Reports: Hx Congestive Heart Failure, Hx DVT, Hx Heart Attack, Hx Hypercholesterolemia, Hx Hypertension, Hx Peripheral Vascular Disease , Hx Pulmonary Embolism Pulmonary Medical History: Reports: Hx Bronchitis, Hx COPD, Hx Pneumonia Denies: Hx Asthma Neurological Medical History: Denies: Hx Migraine, Hx Seizures Endocrine Medical History: Reports: Hx Diabetes Mellitus Type 1, Hx Diabetes Mellitus Type 2 Renal/ Medical History: Reports: Hx Renal Insufficiency. 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, Reports Hx Musculoskeletal Trauma Psychiatric Medical History: Infectious Medical History: Reports: Hx HIV Past Surgical History: Reports: Hx Orthopedic Surgery - bilateral amputation, R BKA, L AKA, Hx Vascular Surgery - stents right chest, left arm clot removed, IVC filter, Other - Endoscopy - Immunizations Immunizations up to date: Yes Hx Diphtheria, Pertussis, Tetanus Vaccination: Yes Hx Pneumococcal Vaccination: 07/21/10 Review of Systems - Review of Systems Constitutional: No symptoms reported EENT: No symptoms reported Cardiovascular: Chest pain Respiratory: Short of breath Gastrointestinal: No symptoms reported Genitourinary: No symptoms reported Male Genitourinary: No symptoms reported Musculoskeletal: No symptoms reported Skin: No symptoms reported Hematologic/Lymphatic: No symptoms reported Neurological/Psychological: No symptoms reported -: Yes All other systems reviewed and negative Physical Exam - Vital signs Vitals: Resp Pulse Ox 18 98 09/08/17 06:00 09/08/17 06:00 Interpretation: Normal - General General appearance: Appears well, Alert - HEENT Head: Normocephalic, Atraumatic Eyes: Normal Pupils: PERRL - Respiratory Respiratory status: No respiratory distress Chest status: Nontender Breath sounds: Normal Chest palpation: Normal - Cardiovascular Rhythm: Regular Heart sounds: Normal auscultation Murmur: No - Abdominal Inspection: Normal Distension: No distension Bowel sounds: Normal Tenderness: Nontender Organomegaly: No organomegaly - Back Back: Normal, Nontender - Extremities General upper extremity: Normal inspection, Nontender, Normal color, Normal ROM , Normal temperature General lower extremity: Nontender. No: Normal inspection - Bilateral lower leg and patient's - Neurological Neuro grossly intact: Yes Cognition: Normal Orientation: AAOx4 [place] Coma Scale Eye Opening: Spontaneous Star Coma Scale Verbal: Oriented Star Coma Scale Motor: Obeys Commands [place] Coma Scale Total: 15 Speech: Normal Motor strength normal: LUE, RUE, LLE, RLE Sensory: Normal - Psychological Associated symptoms: Normal affect, Normal mood - Skin Skin Temperature: Warm Skin Moisture: Dry Skin Color: Normal Course - Re-evaluation Re-evalutation: 09/08/17 11:53 Patient chest x-ray laboratory findings did not show any signs of any acute disease. coumadin therapeutic patient again resting comfortably upon my reevaluation. No signs of hypoxia. Patient was given a dose of his home Lasix and a dose of his blood pressure medications. No signs of acute distress at this time patient was encouraged follow-up primary care physician will be transported back to his place of residence. Transport unfortunately would not be available to 1500 hrs. this afternoon. 09/08/17 11:53 - Vital Signs Vital signs: Temp Pulse Resp BP Pulse Ox 98.3 F 16 152/91 H 97 09/08/17 06:10 09/08/17 08:01 09/08/17 08:01 09/08/17 08:01 - Laboratory Result Diagrams: 09/08/17 06:25 09/08/17 07:57 Laboratory results interpreted by me: 09/08/17 09/08/17 09/08/17 06:25 06:25 07:57 RBC 3.69 L Hgb 10.9 L Hct 32.9 L RDW 15.4 H PT 28.9 H Chloride 112 H Carbon Dioxide 19 L BUN 63 H Creatinine 6.29 H Est GFR ( Amer) 11 L Est GFR (Non-Af Amer) 9 L Calcium 7.3 L AST 92 H ALT 87 H Total Protein 5.7 L Albumin 3.3 L Discharge - Discharge Clinical Impression: Anticoagulated on Coumadin, HIV (human immunodeficiency virus infection), Chest pressure, dyspena reported Chronic kidney disease (CKD) Qualifiers: Chronic kidney disease stage: unspecified stage Qualified Code(s): N18.9 - Chronic kidney disease, unspecified CHF (congestive heart failure) Qualifiers: Heart failure type: unspecified Heart failure chronicity: unspecified Qualified Code(s): I50.9 - Heart failure, unspecified Condition: Good Disposition: HOME, SELF-CARE Instructions: Chest Wall Pain ([facility]), Chest Pain of Unclear Cause ([facility]), High Blood Pressure, Requiring Treatment ([facility]), Kidney Failure ([facility]) Additional Instructions: Your chest x-ray laboratory studies and monitoring of her vital signs not show any acute abnormalities today. Please continue to take all your home prescribed medications. We did give you a dose of Lasix 80 mg a dose of hydralazine and a dose of clonidine this morning here in the hospital. Please continue your other medications as scheduled. Please follow-up with your primary care physician.
[2017-09-08 13:20] VITALS: BP 150/84
== END 2017-09-08 13:40 | disposition home or self-care (01) ==
LOC: ER 05:42
DX: R07.9 Chest pain, unspecified (principal); R06.00 Dyspnea, unspecified; I50.9 Heart failure, unspecified; B20 Human immunodeficiency virus [HIV] disease; N18.9 Chronic kidney disease, unspecified; J44.9 Chronic obstructive pulmonary disease, unspecified; Z79.01 Long term (current) use of anticoagulants
CPT/HCPCS: 93005; 99285; 96374; 36415; 82553; 82550; 85025; 85610; 80053; 84484; 71045; 93010; J3490 ×2; J1940

== ENCOUNTER 2017-09-10 14:15 | Inpatient (IN) | payer MEDICAID ==
--- NOTE | 2017-09-10 15:01 | ER Document Report ---
ED Medical Screen (RME) - General Chief Complaint: Leg Swelling Stated Complaint: LEGS SWOLLEN Time Seen by Provider: 09/10/17 15:00 Notes: states Dr. Lowe told him his kidneys are failing and he needed to come to hospital for dialysis TRAVEL OUTSIDE OF THE [place] IN LAST 30 DAYS: No - Related Data Allergies/Adverse Reactions: No Known Allergies Allergy (Verified 09/10/17 14:18) Past Medical History - Social History Chew tobacco use (# tins/day): No Frequency of alcohol use: None Drug Abuse: Cocaine Family history: Reviewed & Not Pertinent - Past Medical History Cardiac Medical History: Reports: Hx Congestive Heart Failure, Hx DVT, Hx Heart Attack, Hx Hypercholesterolemia, Hx Hypertension, Hx Peripheral Vascular Disease , Hx Pulmonary Embolism Pulmonary Medical History: Reports: Hx Bronchitis, Hx COPD, Hx Pneumonia Denies: Hx Asthma Neurological Medical History: Denies: Hx Migraine, Hx Seizures Endocrine Medical History: Reports: Hx Diabetes Mellitus Type 1, Hx Diabetes Mellitus Type 2 Renal/ Medical History: Reports: Hx Renal Insufficiency. 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, Reports Hx Musculoskeletal Trauma Psychiatric Medical History: Infectious Medical History: Reports: Hx HIV Past Surgical History: Reports: Hx Orthopedic Surgery - bilateral amputation, R BKA, L AKA, Hx Vascular Surgery - left arm clot removed, IVC filter, Other - Endoscopy - Immunizations Immunizations up to date: Yes Hx Diphtheria, Pertussis, Tetanus Vaccination: Yes History of Influenza Vaccine for 04/2017 - 09/2017 Season: Yes Influenza Administration Date for 04/2017 - 09/2017 Season: 04/20/17 Physical Exam - Vital signs Vitals: Temp Pulse Resp BP Pulse Ox 98.0 F 89 24 H 173/78 H 96 09/10/17 14:21 09/10/17 14:21 09/10/17 14:21 09/10/17 14:21 09/10/17 14:21 Course - Vital Signs Vital signs: Temp Pulse Resp BP Pulse Ox 98.0 F 89 24 H 173/78 H 96 09/10/17 14:21 09/10/17 14:21 09/10/17 14:21 09/10/17 14:21 09/10/17 14:21
[2017-09-10 16:19] LABS: ABSOLUTE BASOPHILS # (AUTO) 0.1 10^3/uL (0.0-0.2); ABSOLUTE MONOCYTES (AUTO) 0.4 10^3/uL (0.1-1.4); ABSOLUTE NEUT (AUTO) 5.5 10^3/uL (1.7-8.2); BASOPHILS % (AUTO) 0.7 % (0-2); EOSINOPHILS % (AUTO) 0.1 % (0-6); HEMATOCRIT 34.6 % (37.9-51.0); HEMOGLOBIN 11.5 g/dL (13.5-17.0); LYMPHOCYTES % (AUTO) 13.9 % (13-45); MEAN CORPUSCULAR HEMOGLOBIN 29.8 pg (27.0-33.4); MEAN CORPUSCULAR HGB CONC 33.4 g/dL (32.0-36.0); MEAN CORPUSCULAR VOLUME 89 fl (80-97); MONOCYTES % (AUTO) 5.8 % (3-13); PLATELET COUNT 192 10^3/uL (150-450); RED BLOOD COUNT 3.88 10^6/uL (4.35-5.55); RED CELL DISTRIBUTION WIDTH 15.3 % (11.5-14.0); SEGMENTED NEUTROPHILS % (AUTO) 79.5 % (42-78); TOTAL CELLS COUNTED % (AUTO) 100 %; WHITE BLOOD COUNT 6.9 10^3/uL (4.0-10.5)
[2017-09-10 16:41] LABS: ALANINE AMINOTRANSFERASE 59 U/L (21-72); ALBUMIN 3.8 g/dL (3.5-5.0); ALKALINE PHOSPHATASE 86 U/L (38-126); ANION GAP 15 (5-19); ASPARTATE AMINO TRANSFERASE 28 U/L (17-59); BILIRUBIN,DIRECT 0.3 mg/dL (0.0-0.4); BILIRUBIN,TOTAL 0.3 mg/dL (0.2-1.3); BLOOD UREA NITROGEN 67 mg/dL (7-20); CALCIUM 7.1 mg/dL (8.4-10.2); CARBON DIOXIDE 15 mmol/L (22-30); CHLORIDE 114 mmol/L (98-107); GLUCOSE 139 mg/dL (75-110); POTASSIUM 4.1 mmol/L (3.6-5.0); SODIUM 143.7 mmol/L (137-145); TOTAL PROTEIN 5.9 g/dL (6.3-8.2)
[2017-09-10] MEDS ORDERED: NORMAL SALINE 1000 ML 500 ML IV ONE (17:05)
--- NOTE | 2017-09-10 18:20 | ER Document Report ---
ED General - General Mode of Arrival: Wheelchair Information source: Patient TRAVEL OUTSIDE OF THE [place] IN LAST 30 DAYS: No <ARUN PAULA - Last Filed: 09/10/17 20:17> <MARTHAGRZEGORZ Ivan - Last Filed: 09/11/17 03:46> - General Chief Complaint: Leg Swelling Stated Complaint: LEGS SWOLLEN Time Seen by Provider: 09/10/17 15:00 Notes: Patient is a 62 year old male with a history of CHF, HIV, COPD, pulmonary embolism and renal failure was sent to the emergency department by Dr. Lowe for dialysis. Patient states he went to Dr. Lowe this morning due to bilateral leg swelling and difficulty breathing and was told his kidneys were failing and needed to come to the emergency department. Patient states he has not had dialysis before but aware of his history of chronic renal failure. Patient then reports he feels like he is fluid overloaded. Patient also complains of headaches and cough. Patient denies any fevers. Patient also states that he has been taking nebulizer treatments at home but feel it as not helped with his breathing. Patient has not been taking his Coumadin for the last 2 days due to him running out. (ARUN PAULA) - Related Data Allergies/Adverse Reactions: No Known Allergies Allergy (Verified 09/10/17 14:18) Past Medical History - General Information source: Patient - Social History Smoking Status: Current Every Day Smoker Chew tobacco use (# tins/day): No Frequency of alcohol use: None Drug Abuse: Cocaine Family History: CAD, CVA, DM, Hyperlipidemia, Hypertension, Malignancy Patient has suicidal ideation: No Patient has homicidal ideation: No - Past Medical History Cardiac Medical History: Reports: Hx Congestive Heart Failure, Hx DVT, Hx Heart Attack, Hx Hypercholesterolemia, Hx Hypertension, Hx Peripheral Vascular Disease , Hx Pulmonary Embolism Pulmonary Medical History: Reports: Hx Bronchitis, Hx COPD, Hx Pneumonia Neurological Medical History: Endocrine Medical History: Reports: Hx Diabetes Mellitus Type 1, Hx Diabetes Mellitus Type 2 Renal/ Medical History: Reports: Hx Renal Insufficiency GI Medical History: Reports: Hx Gastroesophageal Reflux Disease Musculoskeltal Medical History: Reports Hx Arthritis, 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, Reports Hx Musculoskeletal Trauma Psychiatric Medical History: Infectious Medical History: Reports: Hx HIV Past Surgical History: Reports: Hx Orthopedic Surgery - bilateral amputation, R BKA, L AKA, Hx Vascular Surgery - left arm clot removed, IVC filter, Other - Endoscopy - Immunizations Immunizations up to date: Yes Hx Diphtheria, Pertussis, Tetanus Vaccination: Yes Hx Pneumococcal Vaccination: 07/21/10 <ARUN PAULA - Last Filed: 09/10/17 20:17> Review of Systems - Review of Systems Constitutional: No symptoms reported EENT: No symptoms reported Cardiovascular: No symptoms reported Respiratory: See HPI Gastrointestinal: No symptoms reported Genitourinary: No symptoms reported Male Genitourinary: No symptoms reported Musculoskeletal: See HPI Skin: No symptoms reported Hematologic/Lymphatic: No symptoms reported Neurological/Psychological: No symptoms reported -: Yes All other systems reviewed and negative <ARUN PAULA - Last Filed: 09/10/17 20:17> Physical Exam <ARUN PAULA - Last Filed: 09/10/17 20:17> <GRZEGORZ THOMAS - Last Filed: 09/11/17 03:46> - Vital signs Vitals: Temp Pulse Resp BP Pulse Ox 98.0 F 89 24 H 173/78 H 96 09/10/17 14:21 09/10/17 14:21 09/10/17 14:21 09/10/17 14:21 09/10/17 14:21 - Notes Notes: GENERAL: Alert, interacts well. No acute distress. HEAD: Normocephalic, atraumatic. EYES: Pupils equal, round, and reactive to light. Extraocular movements intact. ENT: Oral mucosa moist, tongue midline. NECK: Full range of motion. Supple. Trachea midline. LUNGS: Clear to auscultation bilaterally, no wheezes, rales, or rhonchi. No respiratory distress. HEART: Regular rate and rhythm. No murmurs, gallops, or rubs. ABDOMEN: Soft, non-tender. Non-distended. Bowel sounds present in all 4 quadrants. EXTREMITIES: Moves all 4 extremities spontaneously. BKA bilaterally. NEUROLOGICAL: Alert and oriented x3. Normal speech. PSYCH: Normal affect, normal mood. SKIN: Warm, dry, normal turgor. No rashes or lesions noted. (ARUN PAULA) Course - Laboratory Result Diagrams: 09/10/17 15:35 09/10/17 15:35 - Consults Dr. Lowe Time consulted: 16:28 - Dr. Lowe stated to consult Dr. Sutton in terms of placing port. Dr. Carrasco Time consulted: 20:06 - States she will visit patient. <ARUN PAULA - Last Filed: 09/10/17 20:17> - Laboratory Result Diagrams: 09/10/17 15:35 09/10/17 15:35 - Diagnostic Test Radiology reviewed: Image reviewed - EKG Interpretation by Me EKG shows normal: Sinus rhythm Rate: Normal Rhythm: NSR [place]/QRS: Left axis deviation When compared to previous EKG there are: No significant change <GRZEGORZ THOMAS Marzena - Last Filed: 09/11/17 03:46> - Re-evaluation Re-evalutation: 09/10/17 19:04 Patient no acute distress and is well-appearing upon initial encounter and revisit. Patient's x-ray does show some atelectasis although pneumonia cannot be excluded but patient does not have any recent fevers or chills and not coughing up any mucus. Pending INR and BNP at this time. Chest x-ray does not show any fluid overload and his bilateral lower extremity amputations do not have any pitting edema do not appear fluid overloaded to me. Discussed with patient providing hour-long DuoNeb nebulizer and need to take deeper breaths as he does not show fluid overload on chest x-ray but does show atelectasis. Will provide hour-long DuoNeb and reevaluate. 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 Sutton would be the one who placed the catheter but at this time do not feel there is any urgent nature at this time. If nebulizer helps I will discharge patient instructed to use nebulizer every 4 hours at his home and follow-up with his crop insurance claims adjuster regarding scheduled appointment for his vascular catheter for dialysis (GRZEGORZ THOMAS) - Vital Signs Vital signs: Temp Pulse Resp BP Pulse Ox 98.0 F 73 17 152/73 H 97 09/10/17 23:40 09/10/17 23:40 09/10/17 23:40 09/10/17 23:40 09/10/17 23:40 - Laboratory Laboratory results interpreted by me: 09/10/17 09/10/17 09/10/17 15:35 15:35 18:59 RBC 3.88 L Hgb 11.5 L Hct 34.6 L RDW 15.3 H Seg Neutrophils % 79.5 H PT Chloride 114 H Carbon Dioxide 15 L BUN 67 H Creatinine 6.77 H Est GFR ( Amer) 10 L Est GFR (Non-Af Amer) 8 L Glucose 139 H Calcium 7.1 L NT-Pro-B Natriuret Pep 67710 H Total Protein 5.9 L 09/10/17 18:59 RBC Hgb Hct RDW Seg Neutrophils % PT 19.8 H Chloride Carbon Dioxide BUN Creatinine Est GFR ( Amer) Est GFR (Non-Af Amer) Glucose Calcium NT-Pro-B Natriuret Pep Total Protein - Diagnostic Test Radiology results interpreted by me: 09/10/17 19:07 Atelectasis and no clinical signs of pneumonia (GRZEGORZ THOMAS) Discharge - Discharge Admitting Provider: Hospitalist - [facility] Unit Admitted: Telemetry <ARUN PAULA - Last Filed: 09/10/17 20:17> <GRZEGORZ THOMAS - Last Filed: 09/11/17 03:46> - Discharge Clinical Impression: Shortness of breath Chronic renal failure Qualifiers: Chronic kidney disease stage: unspecified stage Qualified Code(s): N18.9 - Chronic kidney disease, unspecified CHF (congestive heart failure) Qualifiers: Heart failure type: unspecified Heart failure chronicity: unspecified Qualified Code(s): I50.9 - Heart failure, unspecified Condition: Stable Disposition: ADMITTED INPATIENT Scribe Attestation: 09/11/17 03:46 I personally performed the services described documentation, reviewed and edited the documentation which was dictated to describe my presence, and it accurately records my words and actions. (GRZEGORZ THOMAS) Scribe Documentation - Scribe Written by Sammyibe:: Chayo Watters, 09/10/2017 18:44 acting as scribe for :: Martha <ARUN PAULA - Last Filed: 09/10/17 20:17>
--- NOTE | 2017-09-10 18:24 | EKG REPORT ---
SEVERITY:- ABNORMAL ECG - SINUS RHYTHM VENTRICULAR PREMATURE COMPLEX LEFT AXIS DEVIATION LEFT VENTRICULAR HYPERTROPHY PROLONGED QT INTERVAL NONSPECIFIC ST-T CHANGES LATERAL LEADS. : Confirmed by: Marco Young MD 10-Sep-2017 18:23:48
--- NOTE | 2017-09-10 18:49 | RADIOLOGY REPORT (SQ) ---
EXAM DESCRIPTION: CHEST PA/LAT COMPLETED DATE/TIME: 09/10/2017 6:35 pm REASON FOR STUDY: leg swelling, sob COMPARISON: None. EXAM PARAMETERS: NUMBER OF VIEWS: two views TECHNIQUE: Digital Frontal and Lateral radiographic views of the chest acquired. RADIATION DOSE: NA LIMITATIONS: none FINDINGS: LUNGS AND PLEURA: COPD most prominently in the right upper lobe. Minimal increased densit y in the bases primarily linear which may all represent atelectasis although component of pneumonia p articularly in the left base cannot be excluded. MEDIASTINUM AND HILAR STRUCTURES: No masses or contour abnormalities. HEART AND VASCULAR STRUCTURES: Mild cardiomegaly. No evidence failure. BONES: No acute findings. HARDWARE: None in the chest. OTHER: No other significant finding. IMPRESSION: 1. COPD. 2. Mild basilar atelectasis or pneumonia. 3. Mild cardiomegaly. TECHNICAL DOCUMENTATION: JOB ID: [id number] [employer]- All Rights Reserved
[2017-09-10 19:15] LABS: INTERNATIONAL RATION (INR) 1.58; PROTHROMBIN TIME 19.8 SEC (11.4-15.4)
[2017-09-10 19:16] LABS: PARTIAL THROMBOPLASTIN TIME 34.9 SEC (23.5-35.8)
[2017-09-10] MEDS ORDERED: ALBUTEROL SULFATE 0.083% NEB 2.5 MG/3 ML AMPUL NEB ONE (19:19)
[2017-09-10] MEDS ORDERED: IPRATROPIUM BROMIDE 0.02% NEB 0.5 MG/2.5 ML AMPUL NEB ONE (19:20)
[2017-09-10 19:55] LABS: TROPONIN I 0.045 ng/mL
[2017-09-10] MEDS ORDERED: DOCUSATE SODIUM 100 MG CAPSULE PO PRN (20:07)
[2017-09-10] MEDS ORDERED: ONDANSETRON 4 MG TAB.RAPDIS PO PRN (20:18)
[2017-09-10] MEDS ORDERED: ACETAMINOPHEN 325 MG TABLET PO PRN (20:23)
[2017-09-10] MEDS ORDERED: BUMETANIDE INJ/PF 1 MG/4 ML SDV IV STA (21:43)
[2017-09-10] MEDS ORDERED: NITROGLYCERIN 0.4 MG/TAB 25 TAB/BOTTLE SL PRN (21:44)
[2017-09-10] MEDS: HEPARIN SOD (PORCINE) 5,000 UNIT/ML 1 ML SYRINGE SUBCUT SCH (22:07)
[2017-09-10] MEDS: CLONIDINE HCL 0.1 MG TABLET PO SCH (22:07)
[2017-09-11] MEDS ORDERED: ATORVASTATIN CALCIUM 10 MG TABLET PO ONE (01:00)
[2017-09-11] MEDS ORDERED: CARVEDILOL 12.5 MG TABLET PO ONE (01:00)
[2017-09-11] MEDS ORDERED: HYDRALAZINE HCL 50 MG TABLET PO ONE (01:00)
--- NOTE | 2017-09-11 01:36 | PDOC H&P ---
History of Present Illness Admission Date/PCP: KENIA FRANCIS MD Patient complains of: Persistent shortness of breath for over a month. 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 The patient was last hospitalized here from 09/02/2017 08/22/2017 with CHF/COPD exacerbation. He was seen today at Dr. Lowe' office and was advised to come to the ED for further management and treatment. Patient complains of chest tightness intermittently, the last time was this morning. He also is complaining of worsening shortness of breath with productive cough, unable to bring up any sputum. He denies any fever chills or any sick contact. He uses his nebulizer every 6 hours with some relief. And He denies any abdominal pain but complains of feeling bloated. He also denies any nausea vomiting but complains of diaphoresis, no diarrhea or constipation. He is still able to void and he denies any urinary symptoms. He noticed increased swelling of his stumps bilaterally and he has orthopnea (he sleeps on the couch almost sitting up). He also has PND. He is able to transfer and uses an electric wheelchair. He is not on any home oxygen. In the ED, his temperature was 98, heart rate 89, respiratory rate 24, blood pressure 173/78 with oxygen saturation of 96% on room air. His WBC was 6.9 and his hemoglobin 11.5. His INR was 1.58 and his potassium was 4.1 with BUN/ creatinine = 67/6.77 respectively. His troponin was 0.045. He received DuoNeb treatment which seemed to help somewhat. Past Medical History Cardiac Medical History: Reports: Congestive Heart Failure, DVT, Myocardial Infarction, Hyperlipidema, Hypertension, Peripheral Vascular Disease Pulmonary Medical History: Reports: Bronchitis, Chronic Obstructive Pulmonary Disease (COPD), Pneumonia Denies: Asthma Neurological Medical History: Denies: Migraine, Seizures Renal/ Medical History: Reports: Chronic Kidney Disease, End Stage Renal Disease - not on dialysis yet. GI Medical History: Reports: Gastroesophageal Reflux Disease Musculoskeltal Medical History: Reports: Arthritis Psychiatric Medical History: Hematology: Denies: Anemia Infectious Medical History: Reports: HIV Past Surgical History Past Surgical History: Reports: Orthopedic Surgery - bilateral amputation, R BKA , L AKA, Vascular Surgery - left arm clot removed, IVC filter, Other - Endoscopy ; Vascular surgery. Social History Smoking Status: Current Every Day Smoker Cigarettes Packs Per Day: 0.5 - for 48 years Frequency of Alcohol Use: None Hx Recreational Drug Use: Yes Drugs: Cocaine Hx Prescription Drug Abuse: No Family History Family History: CAD, CVA, DM, Hyperlipidemia, Hypertension, Malignancy Parental Family History Reviewed: Yes - Father: [place], mother cancer, brother [place]/ chronic kidney disease. Children Family History Reviewed: No Sibling(s) Family History Reviewed.: Yes Medication/Allergy Home Medications: Abacavir Sulfate [Ziagen 300 mg Tablet] 600 mg PO DAILY 09/10/17 Albuterol Sulfate [Albuterol Sulfate 2.5mg/3 mL] 3 ml NEB Q8 09/10/17 Albuterol Sulfate [Ventolin HFA MDI 18 GM] 2 puff IH Q6HP PRN 09/10/17 Amlodipine Besylate [Norvasc 5 mg Tablet] 5 mg PO DAILY 09/10/17 Beclomethasone Dipropionate [Qvar] 2 puff IH Q12 09/10/17 Calcitriol [Rocaltrol 0.25 mcg Capsule] 0.25 mcg PO DAILY 09/10/17 Carvedilol [Coreg 25 mg Tablet] 25 mg PO Q12 09/10/17 Clonidine HCl [Catapres 0.1 mg Tablet] 0.1 mg PO Q12 09/10/17 Dolutegravir Sodium [Tivicay] 50 mg PO DAILY 09/10/17 Furosemide [Lasix 80 mg Tablet] 80 mg PO DAILY 09/10/17 Hydralazine HCl 100 mg PO Q8 09/10/17 Ipratropium/Albuterol Sulfate [Iprat-Albut 0.5-3(2.5) mg/3 ml] 3 ml NEB Q6 09/10 Isosorbide Mononitrate [Isosorbide Mononitrate ER] 120 mg PO DAILY 09/10/17 Lamivudine [Epivir] 50 mg PO DAILY 09/10/17 Nicotine [Nicoderm 21 mg/24 Hr Transderm Patch] 1 patch TOP DAILY 09/10/17 Nitroglycerin [Nitrostat] 0.4 mg SL Q5MP PRN 09/10/17 Pantoprazole Sodium [Protonix] 40 mg PO DAILY 09/10/17 Pravastatin Sodium [Pravachol] 40 mg PO DAILY 09/10/17 Sodium Bicarbonate [Sodium Bicarbonate 650 mg Tablet] 1,300 mg PO TID 09/10/17 Warfarin Sodium [Coumadin] 10 mg PO DAILY 09/10/17 Allergies/Adverse Reactions: No Known Allergies Allergy (Verified 09/10/17 14:18) Review of Systems Constitutional: PRESENT: as per HPI, weight gain. ABSENT: chills, fever(s), headache(s) Eyes: PRESENT: as per HPI Ears: PRESENT: as per HPI Nose, Mouth, and Throat: PRESENT: as per HPI Breasts: PRESENT: as per HPI Cardiovascular: PRESENT: dyspnea on exertion, orthropnea Respiratory: PRESENT: dyspnea. ABSENT: cough Gastrointestinal: ABSENT: abdominal pain, constipation, diarrhea, nausea, vomiting Genitourinary: ABSENT: dysuria, hematuria Musculoskeletal: PRESENT: joint swelling Integumentary: ABSENT: rash, wounds Neurological: ABSENT: focal weakness, syncope Psychiatric: ABSENT: homidical ideation, suicidal ideation Endocrine: ABSENT: polydipsia, polyuria Physical Exam Vital Signs: Temp Pulse Resp BP Pulse Ox 98.0 F 89 24 H 173/78 H 96 09/10/17 14:21 09/10/17 14:21 09/10/17 14:21 09/10/17 14:21 09/10/17 14:21 Intake & Output 09/09/17 09/10/17 09/11/17 06:59 06:59 06:59 Weight 74.1 kg General appearance: PRESENT: mild distress, well-developed, well-nourished Head exam: PRESENT: atraumatic, normocephalic Eye exam: PRESENT: conjunctiva pink, PERRLA. ABSENT: scleral icterus Mouth exam: PRESENT: moist, tongue midline Neck exam: ABSENT: carotid bruit, JVD Respiratory exam: PRESENT: decreased breath sounds - bilaterally. ABSENT: wheezes Cardiovascular exam: PRESENT: RRR - S1 S2 normal. Pulses: PRESENT: normal dorsalis pedis pul Vascular exam: PRESENT: normal capillary refill GI/Abdominal exam: PRESENT: distended, normal bowel sounds, soft. ABSENT: guarding, rebound, tenderness Rectal exam: PRESENT: deferred Extremities exam: PRESENT: other - stump edema right >left Neurological exam: PRESENT: alert, awake, oriented to person, oriented to place , oriented to time, oriented to situation Psychiatric exam: PRESENT: appropriate affect, normal mood. ABSENT: homicidal ideation, suicidal ideation Skin exam: PRESENT: dry, intact, warm. ABSENT: cyanosis, rash Results Laboratory Results: 09/10/17 15:35 09/10/17 15:35 09/10/17 09/10/17 09/10/17 15:35 15:35 15:35 WBC 6.9 RBC 3.88 L Hgb 11.5 L Hct 34.6 L MCV 89 MCH 29.8 MCHC 33.4 RDW 15.3 H Plt Count 192 Seg Neutrophils % 79.5 H Lymphocytes % 13.9 Monocytes % 5.8 Eosinophils % 0.1 Basophils % 0.7 Absolute Neutrophils 5.5 Absolute Lymphocytes 1.0 Absolute Monocytes 0.4 Absolute Eosinophils 0.0 Absolute Basophils 0.1 Sodium 143.7 Potassium 4.1 Chloride 114 H Carbon Dioxide 15 L Anion Gap 15 BUN 67 H Creatinine 6.77 H Est GFR ( Amer) 10 L Est GFR (Non-Af Amer) 8 L Glucose 139 H Calcium 7.1 L Magnesium 2.3 Total Bilirubin 0.3 AST 28 ALT 59 Alkaline Phosphatase 86 Total Protein 5.9 L Albumin 3.8 09/10/17 18:59 Troponin I 0.045 NT-Pro-B Natriuret Pep 76916 H EKG Comments: 12 lead EKG, sinus rhythm, ventricular rate 80, axis -30, QTc prolongation, LVH , no acute changes. No previous EKG to compare. Impressions: Chest X-Ray 09/10/17 18:10 IMPRESSION: 1. COPD. 2. Mild basilar atelectasis or pneumonia. 3. Mild cardiomegaly. Assessment & Plan - Diagnosis (1) Dyspnea Qualifiers: Dyspnea type: unspecified Qualified Code(s): R06.00 - Dyspnea, unspecified Is this a current diagnosis for this admission?: Yes Plan: Secondary to acute on chronic combined congestive heart failure (NYHA IV) and/ or volume overload in the setting of advanced kidney disease. We will continue to cycle cardiac enzymes and repeat 12 lead EKG. He had a recent echocardiogram on 07/29/2017 so will not repeat. Chest x-ray was reviewed. Will give Bumex 2 milligram IV 1 and started on BiPAP as needed. Strict I's and O' s. Further workup per nephrology consulted by the ED physician. (2) Elevated troponin Is this a current diagnosis for this admission?: Yes Plan: in the setting of acute CHF/cardiomyopathy and chronic kidney disease. His troponin levels seem to be in this range when reviewing previous records. Management as mentioned previously. (3) ESRD needing dialysis Is this a current diagnosis for this admission?: Yes Plan: Further management per nephrology consulted by the ED physician. The plan is to start him on dialysis but there is no need for urgent dialysis tonight. (4) Essential hypertension Is this a current diagnosis for this admission?: Yes Plan: We will resume his home BP medications and adjust doses as needed. (5) HIV (human immunodeficiency virus infection) Is this a current diagnosis for this admission?: Yes Plan: We will hold his HAART medications during hospitalization. the patient follows with ID as outpatient. (6) History of DVT (deep vein thrombosis) Is this a current diagnosis for this admission?: No Plan: Bilateral lower extremities and left arm. The patient is supposed to be on Coumadin. His INR is subtherapeutic. Will hold Coumadin for now awaiting further workup by nephrology. (7) Smoker Is this a current diagnosis for this admission?: Yes Plan: About half a pack a day for many years. He does not seem to be motivated to quit. He agreed to a nicotine patch. (8) Cocaine use Is this a current diagnosis for this admission?: Yes Plan: Possible abuse. The patient tested positive for cocaine during his most recent hospitalization. We will repeat a urine drug screen. - Time Time Spent: Greater than 70 Minutes Medications reviewed and adjusted accordingly: No - unable to verify at this time Anticipated discharge: Home - Inpatient Certification Based on my medical assessment, after consideration of the patient's comorbidities, presenting symptoms, or acuity I expect that the services needed warrant INPATIENT care.: Yes I certify that my determination is in accordance with my understanding of Medicare's requirements for reasonable and necessary INPATIENT services [42 CFR 412.3e].: Yes
[2017-09-11 07:22] LABS: HEMATOCRIT 31.7 % (37.9-51.0); HEMOGLOBIN 10.6 g/dL (13.5-17.0); MEAN CORPUSCULAR HGB CONC 33.3 g/dL (32.0-36.0); MEAN CORPUSCULAR VOLUME 90 fl (80-97); PLATELET COUNT 164 10^3/uL (150-450); RED BLOOD COUNT 3.52 10^6/uL (4.35-5.55); RED CELL DISTRIBUTION WIDTH 15.4 % (11.5-14.0); WHITE BLOOD COUNT 7.1 10^3/uL (4.0-10.5)
[2017-09-11 07:40] LABS: ANION GAP 13 (5-19); BLOOD UREA NITROGEN 69 mg/dL (7-20); CARBON DIOXIDE 16 mmol/L (22-30); CHLORIDE 114 mmol/L (98-107); GLUCOSE 90 mg/dL (75-110); PHOSPHORUS 4.9 mg/dL (2.5-4.5); POTASSIUM 4.4 mmol/L (3.6-5.0); SODIUM 142.6 mmol/L (137-145)
[2017-09-11 07:43] LABS: INTERNATIONAL RATION (INR) 1.42; PROTHROMBIN TIME 18.3 SEC (11.4-15.4)
--- NOTE | 2017-09-11 08:02 | EKG REPORT ---
SEVERITY:- ABNORMAL ECG - SINUS RHYTHM BORDERLINE LEFT AXIS DEVIATION NONSPECIFIC T ABNORMALITIES, LATERAL LEADS BORDERLINE PROLONGED QT INTERVAL : Confirmed by: Marco Young MD 11-Sep-2017 08:01:48
[2017-09-11] MEDS ORDERED: CALCIUM CHLORIDE 10% PF/INJ 1000 MG/10 ML SDV IV PRN (08:46)
[2017-09-11] MEDS: IPRATROPIUM/ALBUTEROL 0.5-2.5 MG/3 ML AMPUL NEB PRN ×2 (09:00→23:23)
[2017-09-11] MEDS: HEPARIN SOD (PORCINE) 5,000 UNIT/ML 1 ML SYRINGE SUBCUT SCH ×2 (09:42→21:36)
[2017-09-11] MEDS ORDERED: AMLODIPINE BESYLATE 5 MG TABLET PO SCH (10:00)
[2017-09-11] MEDS ORDERED: CALCIUM GLUCONATE 2,000 MG in DEXTROSE 5%-WATER 100 ML IV ONE (11:00)
[2017-09-11] MEDS: SODIUM BICARBONATE 650 MG TABLET PO SCH ×3 (12:44→18:11)
[2017-09-11] MEDS: CALCITRIOL 0.25 MCG CAPSULE PO SCH (12:44)
[2017-09-11] MEDS: ISOSORBIDE MONONITRATE 60 MG TAB.ER.24H PO SCH (12:45)
[2017-09-11] MEDS: LANSOPRAZOLE 30 MG TAB.RAP.DR PO SCH (12:45)
[2017-09-11] MEDS: CARVEDILOL 12.5 MG TABLET PO SCH ×2 (12:46→21:35)
[2017-09-11] MEDS: CLONIDINE HCL 0.1 MG TABLET PO SCH ×2 (12:46→21:35)
[2017-09-11] MEDS: HYDRALAZINE HCL 50 MG TABLET PO SCH ×2 (12:46→18:11)
[2017-09-11] MEDS: NICOTINE 14 MG/24 HR PATCH.TD24 TD SCH (12:48)
--- NOTE | 2017-09-11 14:12 | PDOC PROGRESS REPORT ---
Subjective Progress Note for:: 09/11/17 Reason For Visit: SHORTNESS OF BREATH Physical Exam Vital Signs: Temp Pulse Resp BP Pulse Ox 97.6 F 77 18 158/91 H 98 09/11/17 03:45 09/11/17 03:45 09/11/17 03:45 09/11/17 03:45 09/11/17 03:45 Intake & Output 09/10/17 09/11/17 09/12/17 06:59 06:59 06:59 Intake Total 0 Output Total 1000 Balance -1000 Weight 74 kg Results Laboratory Results: 09/11/17 06:51 09/11/17 06:51 WBC 7.1 RBC 3.52 L Hgb 10.6 L Hct 31.7 L MCV 90 MCH 30.0 MCHC 33.3 RDW 15.4 H Plt Count 164 09/11/17 00:56 Troponin I 0.038 Impressions: Chest X-Ray 09/10/17 18:10 IMPRESSION: 1. COPD. 2. Mild basilar atelectasis or pneumonia. 3. Mild cardiomegaly. Assessment & Plan - Diagnosis (1) Acute on chronic systolic and diastolic heart failure, NYHA class 3 Is this a current diagnosis for this admission?: Yes Plan: Clinically improved when compared to admission. Goal will be to diuresis (2) Anemia in chronic kidney disease (CKD) Qualifiers: Chronic kidney disease stage: stage 5, not on chronic dialysis Qualified Code(s): N18.5 - Chronic kidney disease, stage 5; D63.1 - Anemia in chronic kidney disease Is this a current diagnosis for this admission?: Yes Plan: Stable when considering advanced kidney disease. To trend (3) Chronic kidney disease, stage V (very severe) Is this a current diagnosis for this admission?: Yes Plan: Renal have been consulted and will proceed to consult endovascular for evaluation for dialysis cath (4) HIV (human immunodeficiency virus infection) Is this a current diagnosis for this admission?: Yes Plan: Will continue with outpatient regimen (5) History of DVT (deep vein thrombosis) Is this a current diagnosis for this admission?: Yes Plan: Patient is uncertain the reason for him being on long-standing Coumadin. He admits that he does not take it on a regular basis. PT and INR subtherapeutic. Since Eliquis recently approved for PE and DVT on end-stage renal disease will start after surgical procedure if any (6) Hypocalcemia Is this a current diagnosis for this admission?: Yes Plan: Will proceed to infuse calcium gluconate and will follow up CMP (7) Metabolic acidosis Is this a current diagnosis for this admission?: Yes Plan: Likely due to tubular acidosis. Manage as per renal (8) Secondary hyperparathyroidism (of renal origin) Is this a current diagnosis for this admission?: Yes Plan: Due to end-stage renal disease. Managed per renal (9) Uncontrolled hypertension Is this a current diagnosis for this admission?: Yes Plan: Will continue with outpatient regimen for now - Time Time Spent with patient: 15-24 minutes Medications reviewed and adjusted accordingly: Yes Anticipated discharge: Home with Homehealth Within: within 72 hours - Inpatient Certification Based on my medical assessment, after consideration of the patient's comorbidities, presenting symptoms, or acuity I expect that the services needed warrant INPATIENT care.: Yes I certify that my determination is in accordance with my understanding of Medicare's requirements for reasonable and necessary INPATIENT services [42 CFR 412.3e].: Yes Medical Necessity: Need For Continuous Telemetry Monitoring - May need initiation of dialysis
[2017-09-11 14:15] LABS: URINE AMPHETAMINES SCREEN NEGATIVE; URINE BARBITURATES SCREEN NEGATIVE; URINE BENZODIAZEPINES SCREEN NEGATIVE; URINE MARIJUANA (THC) SCREEN NEGATIVE; URINE METHADONE SCREEN NEGATIVE; URINE PHENCYCLIDINE SCREEN NEGATIVE
[2017-09-11 14:20] LABS: URINE COCAINE SCREEN UNCONFIRMED POSITIVE
--- NOTE | 2017-09-11 19:40 | PDOC CONSULTATION ---
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 He called Dr. Lowe office and spoke to one of the nurses about being short of breath. At that time the nurse told him that he needed to go to the ER for evaluation. He then stopped by the office on his way to the ER. The other nurse in the office say him and examined him finding abnormal lung sounds and pedal edema. He was told by her to keep going to the ER. The patient has never been seen at the office by Dr. Lowe or me. He has been scheduled several times but never showed up. He was scheduled to be seen at the beginning of september. The patient was last hospitalized here from 09/02/2017 09/05/2017 with CHF/COPD exacerbation. Patient complains of chest tightness intermittently, the last time was the morning he came into the hospital. He also is complaining of worsening shortness of breath with productive cough, unable to bring up any sputum. This has been going since the day after he got out of the office. He admits to orthopnea. He denies any fever or chills. He admits to drinking about 3L of water a day. He is urinating still. Denies N/V/D/C. He also admits to noncompliance on medications and proper diet. In the ED labs were drawn, chest x-ray was done and he received IV bumex. His calcium was also found to be low so he received calcium gluconate. Past Medical History Cardiac Medical History: Reports: CHF-Diastolic, DVT, Hyperlipidemia, Myocardial Infarction, Peripheral Vascular Disease, Pulmonary Embolism Pulmonary Medical History: Reports: Bronchitis, Chronic Obstructive Pulmonary Disease (COPD), Pneumonia Denies: Asthma Neurological Medical History: Denies: Migraine, Seizures Endocrine Medical History: Reports: Diabetes Mellitus Type 1, Diabetes Mellitus Type 2 Renal/ Medical History: Reports: Chronic Kidney Disease Stage IV, End Stage Renal Disease - not on dialysis yet., Hyperphosphatemia, Metabolic Acidosis GI Medical History: Reports: Gastroesophageal Reflux Disease Musculoskeltal Medical History: Reports: Arthritis Psychiatric Medical History: Infectious Medical History: Reports: HIV Past Surgical History Past Surgical History: Reports: Orthopedic Surgery - bilateral amputation, R BKA , L AKA, Vascular Surgery - left arm clot removed, IVC filter, Other - Endoscopy ; Vascular surgery. Social History Smoking Status: Current Every Day Smoker Cigarettes Packs Per Day: 0.5 - for 48 years Frequency of Alcohol Use: None Hx Recreational Drug Use: Yes Drugs: Cocaine Hx Prescription Drug Abuse: No Family History Parental Family History Reviewed: No Children Family History Reviewed: NA Sibling(s) Family History Reviewed.: NA Medication/Allergy Home Medications: Abacavir Sulfate [Ziagen 300 mg Tablet] 600 mg PO DAILY 09/10/17 Albuterol Sulfate [Albuterol Sulfate 2.5mg/3 mL] 3 ml NEB Q8 09/10/17 Albuterol Sulfate [Ventolin HFA MDI 18 GM] 2 puff IH Q6HP PRN 09/10/17 Amlodipine Besylate [Norvasc 5 mg Tablet] 5 mg PO DAILY 09/10/17 Beclomethasone Dipropionate [Qvar] 2 puff IH Q12 09/10/17 Calcitriol [Rocaltrol 0.25 mcg Capsule] 0.25 mcg PO DAILY 09/10/17 Carvedilol [Coreg 25 mg Tablet] 25 mg PO Q12 09/10/17 Clonidine HCl [Catapres 0.1 mg Tablet] 0.1 mg PO Q12 09/10/17 Dolutegravir Sodium [Tivicay] 50 mg PO DAILY 09/10/17 Furosemide [Lasix 80 mg Tablet] 80 mg PO DAILY 09/10/17 Hydralazine HCl 100 mg PO Q8 09/10/17 Ipratropium/Albuterol Sulfate [Iprat-Albut 0.5-3(2.5) mg/3 ml] 3 ml NEB Q6 09/10 Isosorbide Mononitrate [Isosorbide Mononitrate ER] 120 mg PO DAILY 09/10/17 Lamivudine [Epivir] 50 mg PO DAILY 09/10/17 Nicotine [Nicoderm 21 mg/24 Hr Transderm Patch] 1 patch TOP DAILY 09/10/17 Nitroglycerin [Nitrostat] 0.4 mg SL Q5MP PRN 09/10/17 Pantoprazole Sodium [Protonix] 40 mg PO DAILY 09/10/17 Pravastatin Sodium [Pravachol] 40 mg PO DAILY 09/10/17 Sodium Bicarbonate [Sodium Bicarbonate 650 mg Tablet] 1,300 mg PO TID 09/10/17 Warfarin Sodium [Coumadin] 10 mg PO DAILY 09/10/17 Allergies/Adverse Reactions: No Known Allergies Allergy (Verified 09/10/17 14:18) Review of Systems Constitutional: ABSENT: chills, fever(s), headache(s), weakness Eyes: ABSENT: visual disturbances Cardiovascular: PRESENT: dyspnea on exertion, edema, orthropnea. ABSENT: chest pain, palpitations Respiratory: PRESENT: cough, dyspnea. ABSENT: sputum Gastrointestinal: PRESENT: bloating. ABSENT: abdominal pain, constipation, diarrhea, nausea, vomiting Genitourinary: ABSENT: difficulty urinating, dysuria, hematuria Musculoskeletal: ABSENT: muscle weakness Neurological: ABSENT: confusion, dizziness, weakness Physical Exam Vital Signs: Temp Pulse Resp BP Pulse Ox 98.2 F 73 17 142/67 H 96 09/11/17 15:44 09/11/17 15:44 09/11/17 15:44 09/11/17 15:44 09/11/17 15:44 Intake & Output 09/10/17 09/11/17 09/12/17 06:59 06:59 06:59 Intake Total 0 488 Output Total 1000 400 Balance -1000 88 Weight 74 kg General appearance: PRESENT: no acute distress, well-developed, well-nourished Eye exam: PRESENT: EOMI, PERRLA Mouth exam: PRESENT: moist, neck supple Neck exam: PRESENT: full ROM, JVD. ABSENT: tracheal deviation Respiratory exam: PRESENT: crackles, wheezes. ABSENT: accessory muscle use, clear to auscultation ramila Cardiovascular exam: PRESENT: RRR, +S1, +S2 GI/Abdominal exam: PRESENT: soft. ABSENT: ascites, rebound, tenderness Extremities exam: PRESENT: pedal edema, +1 edema. ABSENT: tenderness Musculoskeletal exam: PRESENT: tenderness. ABSENT: normal inspection Neurological exam: PRESENT: alert, awake, oriented to person, oriented to place , oriented to time, oriented to situation Psychiatric exam: PRESENT: appropriate affect, normal mood Skin exam: PRESENT: dry, intact, warm. ABSENT: cyanosis Results Laboratory Results: 09/11/17 06:51 09/11/17 06:51 09/11/17 09/11/17 06:51 06:51 WBC 7.1 RBC 3.52 L Hgb 10.6 L Hct 31.7 L MCV 90 MCH 30.0 MCHC 33.3 RDW 15.4 H Plt Count 164 Sodium 142.6 Potassium 4.4 Chloride 114 H Carbon Dioxide 16 L Anion Gap 13 BUN 69 H Creatinine 6.19 H Est GFR ( Amer) 11 L Est GFR (Non-Af Amer) 9 L Glucose 90 Calcium 7.0 L* Phosphorus 4.9 H Magnesium 2.3 09/11/17 09/11/17 09/11/17 00:56 06:51 13:36 Troponin I 0.038 0.044 0.037 Impressions: Chest X-Ray 09/10/17 18:10 IMPRESSION: 1. COPD. 2. Mild basilar atelectasis or pneumonia. 3. Mild cardiomegaly. Assessment & Plan - Diagnosis (1) ESRD (end stage renal disease) Is this a current diagnosis for this admission?: Yes Plan: Patient was examined and appeared to be showing some improvement of fluid overload. Due to recurrent hospital admissions for fluid overload/CHF and noncompliance with medications and diet at this time I feel it appropriate to start him on dialysis. Patient agreed and Dr. Sutton was informed of the need of a perma cath. He is planning on evaluating and placing one tomorrow. The patient will hopefully start dialysis tomorrow afternoon. A PPD was ordered, Hep panel was ordered at last visit. (2) CHF (congestive heart failure) Qualifiers: Heart failure type: unspecified Heart failure chronicity: unspecified Qualified Code(s): I50.9 - Heart failure, unspecified Plan: will start dialysis tomorrow to stop the reoccurrence if CHF exacerbations. (3) Essential hypertension Is this a current diagnosis for this admission?: Yes Plan: currently medications are being managed by hospitalist, will re-evaluate tomorrow (4) Hypocalcemia Is this a current diagnosis for this admission?: Yes Plan: recently received calcium gluconate, will start him on PO calcium too. (5) Metabolic acidosis Is this a current diagnosis for this admission?: Yes Plan: on 1,300mg of sodium bicarb TID a day (6) COPD exacerbation Plan: receiving duonebs (7) Cocaine use Is this a current diagnosis for this admission?: Yes (8) HIV (human immunodeficiency virus infection) Is this a current diagnosis for this admission?: Yes Plan: being managed by hospitalist - Notes Notes: patient's case and plan was discussed with Dr. Lowe.
[2017-09-11] MEDS ORDERED: TUBERCULIN,PURIF.PROT.DERIV. 5 TU/0.1 ML TEST 1 ML VIAL ID ONE (20:30)
[2017-09-11] MEDS: ATORVASTATIN CALCIUM 10 MG TABLET PO SCH (21:35)
[2017-09-12] MEDS: HYDRALAZINE HCL 50 MG TABLET PO SCH ×3 (02:24→17:42)
[2017-09-12 08:03] LABS: INTERNATIONAL RATION (INR) 1.26; PROTHROMBIN TIME 16.7 SEC (11.4-15.4)
[2017-09-12 08:05] LABS: ALANINE AMINOTRANSFERASE 54 U/L (21-72); ALBUMIN 3.2 g/dL (3.5-5.0); ALKALINE PHOSPHATASE 67 U/L (38-126); ANION GAP 12 (5-19); ASPARTATE AMINO TRANSFERASE 18 U/L (17-59); BILIRUBIN,DIRECT 0.2 mg/dL (0.0-0.4); BILIRUBIN,TOTAL 0.2 mg/dL (0.2-1.3); BLOOD UREA NITROGEN 68 mg/dL (7-20); CALCIUM 7.2 mg/dL (8.4-10.2); CARBON DIOXIDE 18 mmol/L (22-30); CHLORIDE 113 mmol/L (98-107); GLUCOSE 88 mg/dL (75-110); POTASSIUM 4.8 mmol/L (3.6-5.0); SODIUM 142.5 mmol/L (137-145); TOTAL PROTEIN 5.3 g/dL (6.3-8.2)
[2017-09-12] MEDS ORDERED: CEFAZOLIN INJ 1 GM VIAL ONE (09:56)
[2017-09-12] MEDS ORDERED: LIDOCAINE 0.5% INJ-PF (5 MG/ML) 50 ML SDV ONE (09:56)
[2017-09-12] MEDS ORDERED: MIDAZOLAM 2 MG/2 ML INJ ONE (09:56)
[2017-09-12] MEDS ORDERED: FENTANYL CITRATE INJ/PF 100 MCG/2 ML AMPUL ONE (09:56)
[2017-09-12] MEDS ORDERED: BACITRACIN INJ 50,000 UNIT VIAL ONE (09:57)
--- NOTE | 2017-09-12 10:25 | PDOC PROGRESS REPORT ---
Subjective Progress Note for:: 09/12/17 Subjective:: No complaints. He is concerned about the procedure. He had been talking with his brother who is the POA and handed his cell phone to me. Patient's brother was advised as to contact surgeon that will perform procedure as to properly address his concerns. Talk to nurse and accordingly Dr. Sutton had discussed with patient the pros and cons and he verbalized understanding. Patient was also informed that he stated positive for cocaine and he states that he is planning to quit Review of systems All organ systems reviewed and negative except as in subjective All significant laboratories and diagnostics have been reviewed Reason For Visit: NEED FOR VASCULAR ACCESS Physical Exam Vital Signs: Temp Pulse Resp BP Pulse Ox 98.2 F 65 13 151/86 H 98 09/12/17 03:00 09/12/17 03:00 09/12/17 03:00 09/12/17 03:00 09/12/17 03:00 Intake & Output 09/10/17 09/11/17 09/12/17 06:59 06:59 06:59 Intake Total 0 854 Output Total 1000 1225 Balance -1000 -371 Weight 74 kg 75 kg General appearance: PRESENT: cooperative, well-developed, well-nourished Head exam: PRESENT: atraumatic, normocephalic Eye exam: PRESENT: conjunctiva pink, EOMI, PERRLA Mouth exam: PRESENT: moist Neck exam: PRESENT: full ROM. ABSENT: JVD, lymphadenopathy, tenderness Respiratory exam: PRESENT: crackles. ABSENT: tachypnea, unlabored Cardiovascular exam: PRESENT: RRR. ABSENT: diastolic murmur, systolic murmur Vascular exam: PRESENT: normal capillary refill GI/Abdominal exam: PRESENT: normal bowel sounds, soft. ABSENT: tenderness Extremities exam: ABSENT: joint swelling Neurological exam: PRESENT: alert, awake, oriented to person, oriented to place , oriented to time, oriented to situation, CN II-XII grossly intact Psychiatric exam: PRESENT: appropriate affect, normal mood Skin exam: PRESENT: intact, normal color Results Laboratory Results: 09/11/17 06:51 09/11/17 06:51 09/11/17 09/11/17 06:51 06:51 WBC 7.1 RBC 3.52 L Hgb 10.6 L Hct 31.7 L MCV 90 MCH 30.0 MCHC 33.3 RDW 15.4 H Plt Count 164 Sodium 142.6 Potassium 4.4 Chloride 114 H Carbon Dioxide 16 L Anion Gap 13 BUN 69 H Creatinine 6.19 H Est GFR ( Amer) 11 L Est GFR (Non-Af Amer) 9 L Glucose 90 Calcium 7.0 L* Phosphorus 4.9 H Magnesium 2.3 09/11/17 09/11/17 09/11/17 00:56 06:51 13:36 Troponin I 0.038 0.044 0.037 Impressions: Chest X-Ray 09/10/17 18:10 IMPRESSION: 1. COPD. 2. Mild basilar atelectasis or pneumonia. 3. Mild cardiomegaly. Assessment & Plan - Diagnosis (1) Acute on chronic systolic and diastolic heart failure, NYHA class 3 Is this a current diagnosis for this admission?: Yes Plan: Improved when compared to admission (2) Anemia in chronic kidney disease (CKD) Qualifiers: Chronic kidney disease stage: stage 5, not on chronic dialysis Qualified Code(s): N18.5 - Chronic kidney disease, stage 5; D63.1 - Anemia in chronic kidney disease Is this a current diagnosis for this admission?: Yes Plan: Stable when considering advanced kidney disease. (3) Chronic kidney disease, stage V (very severe) Is this a current diagnosis for this admission?: Yes Plan: For dialysis cath today and hopefully he will get dialysis once cleared by surgery (4) HIV (human immunodeficiency virus infection) Is this a current diagnosis for this admission?: Yes Plan: Continue with outpatient regimen (5) History of DVT (deep vein thrombosis) Is this a current diagnosis for this admission?: Yes Plan: We will continue Eliquis since recently for end-stage renal disease (6) Hypocalcemia Is this a current diagnosis for this admission?: Yes Plan: Replace IV and p.o. To trend (7) Metabolic acidosis Is this a current diagnosis for this admission?: Yes Plan: Likely due to tubular acidosis. Managed as per renal (8) Secondary hyperparathyroidism (of renal origin) Is this a current diagnosis for this admission?: Yes Plan: As per renal (9) Uncontrolled hypertension Is this a current diagnosis for this admission?: Yes Plan: Continue current regimen (10) Cocaine abuse Is this a current diagnosis for this admission?: Yes Plan: Patient advised to quit - Time Time Spent with patient: 15-24 minutes Medications reviewed and adjusted accordingly: Yes Anticipated discharge: Home with Homehealth Within: within 72 hours - Inpatient Certification Based on my medical assessment, after consideration of the patient's comorbidities, presenting symptoms, or acuity I expect that the services needed warrant INPATIENT care.: Yes I certify that my determination is in accordance with my understanding of Medicare's requirements for reasonable and necessary INPATIENT services [42 CFR 412.3e].: Yes Medical Necessity: Need Close Monitoring Due to Risk of Patient Decompensation
[2017-09-12] MEDS ORDERED: CALCIUM GLUCONATE 2,222 MG in DEXTROSE 5%-WATER 100 ML IV ONE (11:30)
[2017-09-12] MEDS ORDERED: NITROGLYCERIN 0.4 MG/TAB 25 TAB/BOTTLE SL PRN (12:27)
[2017-09-12] MEDS ORDERED: FUROSEMIDE INJ/PF 100 MG/10 ML SDV ONE (12:28)
[2017-09-12] MEDS ORDERED: NITROGLYCERIN 0.4 MG/TAB 25 TAB/BOTTLE ONE (12:28)
[2017-09-12] MEDS ORDERED: LABETALOL HCL INJ 20 MG/4 ML DISP.SYRIN IV ONE ×2 (12:37→12:38)
[2017-09-12] MEDS ORDERED: AMLODIPINE BESYLATE 5 MG TABLET PO ONE (12:38)
[2017-09-12] MEDS ORDERED: HYDRALAZINE HCL INJ/PF 20 MG/1 ML SDV IV PRN ×2 (12:39→12:56)
[2017-09-12] MEDS ORDERED: HYDRALAZINE HCL INJ/PF 20 MG/1 ML SDV ONE (12:42)
[2017-09-12] MEDS ORDERED: FUROSEMIDE INJ/PF 20 MG/2 ML SDV IV ONE (12:45)
[2017-09-12] MEDS ORDERED: MORPHINE SULFATE 10 MG/ML INJ ONE (12:47)
[2017-09-12] MEDS ORDERED: AMLODIPINE BESYLATE 10 MG TABLET PO ONE (12:59)
[2017-09-12] MEDS ORDERED: MORPHINE SULFATE 10 MG/ML INJ IV PRN (13:00)
--- NOTE | 2017-09-12 13:15 | PDOC PROGRESS REPORT ---
Subjective Progress Note for:: 09/12/17 Reason For Visit: Seen today.He was in the cath labs getting ready for a IJ cath. However he has been having progressive dyspnea since this AM finally culminating in severe orthopnea.Denied chest pains.However unable to lie flat to have any catheter placement as per discussion with Dr Sutton. He is being evaluated by hospitalist who has administered IV hydralazine, lasix and MS.Labs and meds reviewed.Given severity of his respiratory failure and inability to lie flat and still will have to postpone HD while we get him out of this crisis,Will order for vigorous diuresis while other temporising measures are being instituted.Labs and meds reviewed. Discussions done with treating hospitalist and RN. Physical Exam Vital Signs: Temp Pulse Resp BP Pulse Ox 97.9 F 65 18 157/88 H 98 09/12/17 08:34 09/12/17 08:34 09/12/17 12:28 09/12/17 08:34 09/12/17 12:28 Intake & Output 09/11/17 09/12/17 09/13/17 06:59 06:59 06:59 Intake Total 0 854 Output Total 1000 1225 Balance -1000 -371 Weight 74 kg 75 kg Exam: in severe distress as he is very orthopneic.He is a non rebreather and awaiting bipap placement Respiratory exam: PRESENT: clear to auscultation ramila, crackles - in bases, rhonchi, other - bilateral and scattered Cardiovascular exam: PRESENT: RRR, +S1, +S2 GI/Abdominal exam: PRESENT: soft. ABSENT: ascites, rebound, tenderness Extremities exam: PRESENT: +1 edema Neurological exam: PRESENT: awake, oriented to person Results Laboratory Results: 09/11/17 06:51 09/12/17 07:05 09/12/17 07:05 Sodium 142.5 Potassium 4.8 Chloride 113 H Carbon Dioxide 18 L Anion Gap 12 BUN 68 H Creatinine 6.04 H Est GFR ( Amer) 11 L Est GFR (Non-Af Amer) 9 L Glucose 88 Calcium 7.2 L Total Bilirubin 0.2 AST 18 ALT 54 Alkaline Phosphatase 67 Total Protein 5.3 L Albumin 3.2 L 09/11/17 09/11/17 09/11/17 00:56 06:51 13:36 Troponin I 0.038 0.044 0.037 Assessment & Plan - Diagnosis (1) Acute on chronic systolic and diastolic heart failure, NYHA class 3 Is this a current diagnosis for this admission?: Yes Plan: Severe heart failure. Unable to get a IJ catheter for urgent dialysis as he is very orthopneic and liiks like in immediate need for intubation. patient examined and discussed with Hospitalist in the Cardiac cath labs and gain in the ICU. Will postpone plans for acute HD while he is getting over the current crisis.Meanwhile I have written orders for vigorous diuresis with IV diuretics and hope he responds and avoids to being intubated.Discussed with his treating RN at the ICU. (2) Cocaine use Is this a current diagnosis for this admission?: Yes Plan: Discussed to stop it. (3) ESRD needing dialysis Is this a current diagnosis for this admission?: Yes Plan: Plan was to initiate dialysis today but I have to postpone it given his severe Orthopnea and inability to lie flat and still to get any form of dialysis catheter. Discussed with Dr Sutton, Surgery and he will try later or on friday. Discussed with hospitalist and treating RN in the ICU.Meanwhile wrote orders for diuretics and other meds. (4) Nicotine abuse Is this a current diagnosis for this admission?: Yes Plan: discussed to quit.will broach this topic when out of crisis. (5) Acute respiratory failure with hypoxia Plan: Looks like he needs to be intubated.Monitor closely and see if he will respond to the medications beinbg given. He is to be put on CPAP in the mean while. (6) Hypocalcemia Is this a current diagnosis for this admission?: Yes Plan: Monitor. (7) Metabolic acidosis Is this a current diagnosis for this admission?: Yes Plan: monitor. (8) Renal osteodystrophy Plan: to start calcitriol.
--- NOTE | 2017-09-12 13:22 | Progress Note ---
Provider Note Provider Note: Patient was in the [facility] for insertion of the dialysis cath he became acutely short of breath. Accordingly patient was not able to lay flat. At that time Dr. Sutton aborted procedure. Nurse posteriorly notified about persistent distress despite repositioning patient. Order was given for Lasix 100 mg IV and And 3 nitroglycerin sublingual. Open arrival to seed analysis laboratory assistant noted that blood pressure was systolic higher than 220. Further orders were given for hydralazine, labetalol and morphine IV. BiPAP order had been given initially as well. Patient was then transferred to intensive care unit however at that time his heart rate was in the 70s and systolic blood pressure was 177. Patient began to report a small improvement in his breathing. We were able to find out that patient had not gotten all his regular medications prior to the procedure. A second dose of hydralazine was requested. Patient's nurse was advised to administer his regular medications which included an increase on Norvasc to [address] Lowe also saw the patient while he was in the [facility]. He had a diuretic to patient's regimen. Patient began telling the nurse that he was hungry
--- NOTE | 2017-09-12 13:36 | RADIOLOGY REPORT (SQ) ---
EXAM DESCRIPTION: CHEST SINGLE VIEW COMPLETED DATE/TIME: 09/12/2017 1:07 pm REASON FOR STUDY: Resp. Distress COMPARISON: Chest films 09/10/2017, 09/08/2017, 09/05/2017 EXAM PARAMETERS: NUMBER OF VIEWS: One view. TECHNIQUE: Single frontal radiographic view of the chest acquired. RADIATION DOSE: NA LIMITATIONS: None. FINDINGS: LUNGS AND PLEURA: Upper lobes are hyperlucent. Mid and lower lungs exhibit increased pulm onary vascularity with multiple Bogdan lines from mild fluid overload or congestive failure with inte rstitial edema. No gross pleural effusions or pneumothorax. Bandlike scarring or atelectasis left retrocardiac region MEDIASTINUM AND HILAR STRUCTURES: No masses. Contour normal. HEART AND VASCULAR STRUCTURES: Moderate cardiomegaly BONES: No acute findings. HARDWARE: None in the chest. OTHER: No other significant finding. IMPRESSION: Fluid overload with pulmonary vascular congestion and mild interstitial edema. This is similar compared to 09/10/2017 TECHNICAL DOCUMENTATION: JOB ID: [id number] [employer]- All Rights Reserved Reading location - IP/workstation name: [email or web address]
[2017-09-12] MEDS ORDERED: FUROSEMIDE INJ/PF 100 MG/10 ML SDV IV SCH (14:00)
[2017-09-12] MEDS: LANSOPRAZOLE 30 MG TAB.RAP.DR PO SCH (14:13)
[2017-09-12] MEDS: CALCITRIOL 0.25 MCG CAPSULE PO SCH (14:13)
[2017-09-12] MEDS: ISOSORBIDE MONONITRATE 60 MG TAB.ER.24H PO SCH (14:13)
[2017-09-12] MEDS: CALCIUM CARBONATE 500 MG TABLET PO SCH ×2 (14:13→18:00)
[2017-09-12] MEDS: HEPARIN SOD (PORCINE) 5,000 UNIT/ML 1 ML SYRINGE SUBCUT SCH ×2 (14:14→21:41)
[2017-09-12] MEDS: CARVEDILOL 12.5 MG TABLET PO SCH ×2 (14:14→21:40)
[2017-09-12] MEDS: NICOTINE 14 MG/24 HR PATCH.TD24 TD SCH (14:16)
[2017-09-12] MEDS: CLONIDINE HCL 0.1 MG TABLET PO SCH ×2 (15:19→21:41)
[2017-09-12] MEDS: IPRATROPIUM/ALBUTEROL 0.5-2.5 MG/3 ML AMPUL NEB PRN (19:40)
[2017-09-12] MEDS: FUROSEMIDE INJ/PF 100 MG/10 ML SDV IV SCH (21:39)
[2017-09-12] MEDS: LORAZEPAM 0.5 MG TABLET PO PRN (21:40)
[2017-09-12] MEDS: ATORVASTATIN CALCIUM 10 MG TABLET PO SCH (21:40)
[2017-09-13] MEDS: HYDRALAZINE HCL 50 MG TABLET PO SCH ×3 (01:08→17:07)
[2017-09-13 04:28] LABS: INTERNATIONAL RATION (INR) 1.08; PROTHROMBIN TIME 14.8 SEC (11.4-15.4)
[2017-09-13 04:36] LABS: ANION GAP 12 (5-19); BLOOD UREA NITROGEN 66 mg/dL (7-20); CALCIUM 7.5 mg/dL (8.4-10.2); CARBON DIOXIDE 18 mmol/L (22-30); CHLORIDE 111 mmol/L (98-107); GLUCOSE 83 mg/dL (75-110); POTASSIUM 4.4 mmol/L (3.6-5.0); SODIUM 140.8 mmol/L (137-145)
[2017-09-13] MEDS: CLONIDINE HCL 0.1 MG TABLET PO SCH ×3 (06:40→21:34)
[2017-09-13] MEDS: FUROSEMIDE INJ/PF 100 MG/10 ML SDV IV SCH ×3 (06:40→21:34)
[2017-09-13] MEDS: IPRATROPIUM/ALBUTEROL 0.5-2.5 MG/3 ML AMPUL NEB PRN ×2 (09:30→15:40)
[2017-09-13] MEDS: NICOTINE 14 MG/24 HR PATCH.TD24 TD SCH (10:07)
[2017-09-13] MEDS: CALCITRIOL 0.25 MCG CAPSULE PO SCH (10:08)
[2017-09-13] MEDS: CARVEDILOL 12.5 MG TABLET PO SCH ×2 (10:08→21:35)
[2017-09-13] MEDS: AMLODIPINE BESYLATE 5 MG TABLET PO SCH (10:09)
[2017-09-13] MEDS: METOLAZONE 5 MG TABLET PO SCH (10:09)
[2017-09-13] MEDS: ISOSORBIDE MONONITRATE 60 MG TAB.ER.24H PO SCH (10:09)
[2017-09-13] MEDS: LANSOPRAZOLE 30 MG TAB.RAP.DR PO SCH (10:09)
[2017-09-13] MEDS: HEPARIN SOD (PORCINE) 5,000 UNIT/ML 1 ML SYRINGE SUBCUT SCH ×2 (10:10→21:36)
[2017-09-13] MEDS: LORAZEPAM 0.5 MG TABLET PO PRN ×2 (10:22→21:35)
[2017-09-13] MEDS: CALCIUM CARBONATE 500 MG TABLET PO SCH ×2 (10:23→17:51)
--- NOTE | 2017-09-13 16:09 | PDOC PROGRESS REPORT ---
Subjective Progress Note for:: 09/13/17 Subjective:: Patient refers is still short of breath but is better. Patient was placed on the recumbent position and he was able to tolerate without immediately getting short of breath Review of systems All organ systems reviewed and negative except as in subjective All significant laboratories and diagnostics have been reviewed Reason For Visit: NEED FOR VASCULAR ACCESS Physical Exam Vital Signs: Temp Pulse Resp BP Pulse Ox 97.5 F 69 10 L 143/77 H 100 09/13/17 06:00 09/12/17 22:27 09/13/17 06:00 09/13/17 05:59 09/13/17 06:00 Intake & Output 09/12/17 09/13/17 09/14/17 06:59 06:59 06:59 Intake Total 854 50 Output Total 1225 6455 Balance -371 -3578 Weight 75 kg 74.1 kg General appearance: PRESENT: cooperative, obese Head exam: PRESENT: atraumatic, normocephalic Eye exam: PRESENT: conjunctiva pink, EOMI, PERRLA Ear exam: PRESENT: normal external ear exam Neck exam: PRESENT: full ROM. ABSENT: JVD, lymphadenopathy, tenderness Respiratory exam: PRESENT: crackles. ABSENT: tachypnea, unlabored Cardiovascular exam: PRESENT: RRR. ABSENT: diastolic murmur, systolic murmur Vascular exam: PRESENT: normal capillary refill GI/Abdominal exam: PRESENT: normal bowel sounds, soft. ABSENT: tenderness Extremities exam: ABSENT: full ROM, pedal edema Musculoskeletal exam: ABSENT: ambulatory Neurological exam: PRESENT: alert, awake, oriented to person, oriented to place , oriented to time, oriented to situation, CN II-XII grossly intact Psychiatric exam: PRESENT: appropriate affect, normal mood Skin exam: PRESENT: intact, normal color Results Laboratory Results: 09/11/17 06:51 09/13/17 04:00 09/12/17 09/13/17 07:05 04:00 Sodium 142.5 140.8 Potassium 4.8 4.4 Chloride 113 H 111 H Carbon Dioxide 18 L 18 L Anion Gap 12 12 BUN 68 H 66 H Creatinine 6.04 H 5.96 H Est GFR ( Amer) 11 L 12 L Est GFR (Non-Af Amer) 9 L 10 L Glucose 88 83 Calcium 7.2 L 7.5 L Magnesium 2.2 Total Bilirubin 0.2 AST 18 ALT 54 Alkaline Phosphatase 67 Total Protein 5.3 L Albumin 3.2 L 09/11/17 09/11/17 09/11/17 00:56 06:51 13:36 Troponin I 0.038 0.044 0.037 Impressions: Chest X-Ray 09/12/17 13:03 IMPRESSION: Fluid overload with pulmonary vascular congestion and mild interstitial edema. This is similar compared to 09/10/2017 Assessment & Plan - Diagnosis (1) Acute on chronic systolic and diastolic heart failure, NYHA class 3 Is this a current diagnosis for this admission?: Yes Plan: Continue with blood pressure management and diuresis (2) Anemia in chronic kidney disease (CKD) Qualifiers: Chronic kidney disease stage: stage 5, not on chronic dialysis Qualified Code(s): N18.5 - Chronic kidney disease, stage 5; D63.1 - Anemia in chronic kidney disease Is this a current diagnosis for this admission?: Yes (3) Chronic kidney disease, stage V (very severe) Is this a current diagnosis for this admission?: Yes Plan: Patient was unable to lay flat for dialysis cath. Renal had added diuretics. Hopefully patient will be ready for insertion of dialysis cath on Friday (4) HIV (human immunodeficiency virus infection) Is this a current diagnosis for this admission?: Yes Plan: Continue with outpatient regimen (5) History of DVT (deep vein thrombosis) Is this a current diagnosis for this admission?: Yes Plan: We will continue Eliquis since recently for end-stage renal disease (6) Hypocalcemia Is this a current diagnosis for this admission?: Yes Plan: Replaced (7) Metabolic acidosis Is this a current diagnosis for this admission?: Yes Plan: Likely due to tubular acidosis. Managed as per renal (8) Secondary hyperparathyroidism (of renal origin) Is this a current diagnosis for this admission?: Yes Plan: As per renal (9) Uncontrolled hypertension Is this a current diagnosis for this admission?: Yes Plan: Continue current regimen (10) Cocaine abuse Is this a current diagnosis for this admission?: Yes Plan: Patient advised to quit - Time Time Spent with patient: 15-24 minutes Medications reviewed and adjusted accordingly: Yes Anticipated discharge: Home with Homehealth Within: within 72 hours - Inpatient Certification Based on my medical assessment, after consideration of the patient's comorbidities, presenting symptoms, or acuity I expect that the services needed warrant INPATIENT care.: Yes I certify that my determination is in accordance with my understanding of Medicare's requirements for reasonable and necessary INPATIENT services [42 CFR 412.3e].: Yes Medical Necessity: Need Close Monitoring Due to Risk of Patient Decompensation
[2017-09-13] MEDS ORDERED: CALCIUM CARBONATE 500 MG TABLET ONE (17:47)
[2017-09-13] MEDS: ATORVASTATIN CALCIUM 10 MG TABLET PO SCH (21:35)
[2017-09-14] MEDS: HYDRALAZINE HCL 50 MG TABLET PO SCH ×3 (02:16→18:07)
[2017-09-14 04:10] LABS: ABSOLUTE BASOPHILS # (AUTO) 0.1 10^3/uL (0.0-0.2); ABSOLUTE EOSINOPHILS # (AUTO) 0.4 10^3/uL (0.0-0.6); ABSOLUTE LYMPHOCYTES (AUTO) 1.9 10^3/uL (0.5-4.7); ABSOLUTE NEUT (AUTO) 4.4 10^3/uL (1.7-8.2); BASOPHILS % (AUTO) 1.2 % (0-2); EOSINOPHILS % (AUTO) 4.6 % (0-6); HEMATOCRIT 30.4 % (37.9-51.0); HEMOGLOBIN 10.3 g/dL (13.5-17.0); LYMPHOCYTES % (AUTO) 24.5 % (13-45); MEAN CORPUSCULAR HEMOGLOBIN 30.1 pg (27.0-33.4); MEAN CORPUSCULAR HGB CONC 33.9 g/dL (32.0-36.0); MEAN CORPUSCULAR VOLUME 89 fl (80-97); MONOCYTES % (AUTO) 12.9 % (3-13); PLATELET COUNT 164 10^3/uL (150-450); RED BLOOD COUNT 3.43 10^6/uL (4.35-5.55); RED CELL DISTRIBUTION WIDTH 15.2 % (11.5-14.0); SEGMENTED NEUTROPHILS % (AUTO) 56.8 % (42-78); TOTAL CELLS COUNTED % (AUTO) 100 %; WHITE BLOOD COUNT 7.7 10^3/uL (4.0-10.5)
[2017-09-14 04:23] LABS: ALANINE AMINOTRANSFERASE 41 U/L (21-72); ALBUMIN 3.3 g/dL (3.5-5.0); ALKALINE PHOSPHATASE 66 U/L (38-126); ANION GAP 19 (5-19); ASPARTATE AMINO TRANSFERASE 20 U/L (17-59); BILIRUBIN,DIRECT 0.4 mg/dL (0.0-0.4); BILIRUBIN,TOTAL 0.4 mg/dL (0.2-1.3); BLOOD UREA NITROGEN 66 mg/dL (7-20); CALCIUM 7.3 mg/dL (8.4-10.2); CARBON DIOXIDE 19 mmol/L (22-30); CHLORIDE 101 mmol/L (98-107); GLUCOSE 114 mg/dL (75-110); POTASSIUM 4.2 mmol/L (3.6-5.0); SODIUM 138.6 mmol/L (137-145); TOTAL PROTEIN 5.7 g/dL (6.3-8.2)
[2017-09-14] MEDS: CLONIDINE HCL 0.1 MG TABLET PO SCH ×3 (06:24→22:57)
[2017-09-14] MEDS: FUROSEMIDE INJ/PF 100 MG/10 ML SDV IV SCH ×3 (06:24→22:55)
[2017-09-14] MEDS: NICOTINE 14 MG/24 HR PATCH.TD24 TD SCH (09:21)
[2017-09-14] MEDS: POLYETHYLENE GLYCOL 3350 POWDER 17 GM/1 PACKET PO SCH (09:21)
[2017-09-14] MEDS: ISOSORBIDE MONONITRATE 60 MG TAB.ER.24H PO SCH (09:23)
[2017-09-14] MEDS: METOLAZONE 5 MG TABLET PO SCH (09:24)
[2017-09-14] MEDS: CARVEDILOL 12.5 MG TABLET PO SCH ×2 (09:24→23:00)
[2017-09-14] MEDS: CALCITRIOL 0.25 MCG CAPSULE PO SCH (09:24)
[2017-09-14] MEDS: AMLODIPINE BESYLATE 5 MG TABLET PO SCH (09:25)
[2017-09-14] MEDS: LANSOPRAZOLE 30 MG TAB.RAP.DR PO SCH (09:25)
[2017-09-14] MEDS: HEPARIN SOD (PORCINE) 5,000 UNIT/ML 1 ML SYRINGE SUBCUT SCH ×2 (09:38→22:56)
[2017-09-14] MEDS: CALCIUM CARBONATE 500 MG TABLET PO SCH ×2 (10:44→18:08)
--- NOTE | 2017-09-14 14:55 | PDOC PROGRESS REPORT ---
Subjective Progress Note for:: 09/14/17 Subjective:: Patient refers that shortness of breath is better. He complains of constipation Review of systems All organ systems reviewed and negative except as in subjective All significant laboratories and diagnostics have been reviewed Reason For Visit: NEED FOR VASCULAR ACCESS Physical Exam Vital Signs: Temp Pulse Resp BP Pulse Ox 97.7 F 62 14 133/68 H 96 09/14/17 06:00 09/14/17 07:27 09/14/17 06:00 09/13/17 19:59 09/14/17 06:00 Intake & Output 09/13/17 09/14/17 09/15/17 06:59 06:59 06:59 Intake Total 50 20 Output Total 5027 7493 Balance -6712 -5996 Weight 74.1 kg 73 kg General appearance: PRESENT: cooperative, obese Head exam: PRESENT: atraumatic, normocephalic Eye exam: PRESENT: conjunctiva pink, EOMI, PERRLA Ear exam: PRESENT: normal external ear exam Mouth exam: PRESENT: moist Neck exam: PRESENT: full ROM. ABSENT: JVD, lymphadenopathy, tenderness Respiratory exam: PRESENT: crackles - Soft basilar crackles with adequate movement of air Cardiovascular exam: PRESENT: RRR. ABSENT: diastolic murmur, systolic murmur Vascular exam: PRESENT: normal capillary refill GI/Abdominal exam: PRESENT: normal bowel sounds, soft. ABSENT: tenderness Extremities exam: ABSENT: joint swelling Musculoskeletal exam: ABSENT: ambulatory Neurological exam: PRESENT: alert, awake, oriented to person, oriented to place , oriented to time, oriented to situation, CN II-XII grossly intact Psychiatric exam: PRESENT: appropriate affect, normal mood Skin exam: PRESENT: intact, normal color Results Laboratory Results: 09/14/17 04:01 09/14/17 04:01 09/14/17 09/14/17 04:01 04:01 WBC 7.7 RBC 3.43 L Hgb 10.3 L Hct 30.4 L MCV 89 MCH 30.1 MCHC 33.9 RDW 15.2 H Plt Count 164 Seg Neutrophils % 56.8 Lymphocytes % 24.5 Monocytes % 12.9 Eosinophils % 4.6 Basophils % 1.2 Absolute Neutrophils 4.4 Absolute Lymphocytes 1.9 Absolute Monocytes 1.0 Absolute Eosinophils 0.4 Absolute Basophils 0.1 Sodium 138.6 Potassium 4.2 Chloride 101 Carbon Dioxide 19 L Anion Gap 19 BUN 66 H Creatinine 6.15 H Est GFR ( Amer) 11 L Est GFR (Non-Af Amer) 9 L Glucose 114 H Calcium 7.3 L Total Bilirubin 0.4 AST 20 ALT 41 Alkaline Phosphatase 66 Total Protein 5.7 L Albumin 3.3 L 09/11/17 09/11/17 09/11/17 00:56 06:51 13:36 Troponin I 0.038 0.044 0.037 Impressions: Chest X-Ray 09/12/17 13:03 IMPRESSION: Fluid overload with pulmonary vascular congestion and mild interstitial edema. This is similar compared to 09/10/2017 Assessment & Plan - Diagnosis (1) Acute on chronic systolic and diastolic heart failure, NYHA class 3 Is this a current diagnosis for this admission?: Yes Plan: Acute component resolved now recommending chronic. Hopefully patient might be able to tolerate laying flat for placement of a dialysis cath in a.m. (2) Anemia in chronic kidney disease (CKD) Qualifiers: Chronic kidney disease stage: stage 5, not on chronic dialysis Qualified Code(s): N18.5 - Chronic kidney disease, stage 5; D63.1 - Anemia in chronic kidney disease Is this a current diagnosis for this admission?: Yes Plan: Stable when considering advanced kidney disease. (3) Chronic kidney disease, stage V (very severe) Is this a current diagnosis for this admission?: Yes Plan: Patient was unable to lay flat for dialysis cath. Renal had added diuretics. Hopefully patient will be ready for insertion of dialysis cath tomorrow (4) HIV (human immunodeficiency virus infection) Is this a current diagnosis for this admission?: Yes Plan: Continue with outpatient regimen (5) History of DVT (deep vein thrombosis) Is this a current diagnosis for this admission?: Yes Plan: Patient had been on Coumadin as outpatient but he was not taking it consistently. Once he gets a dialysis cath placed recommend to place him on Eliquis since recently approved for end-stage renal disease patients (6) Hypocalcemia Is this a current diagnosis for this admission?: Yes Plan: Replaced (7) Metabolic acidosis Is this a current diagnosis for this admission?: Yes Plan: Likely due to tubular acidosis. Managed as per renal (8) Secondary hyperparathyroidism (of renal origin) Is this a current diagnosis for this admission?: Yes Plan: As per renal (9) Uncontrolled hypertension Is this a current diagnosis for this admission?: Yes Plan: Continue current regimen. Input from renal appreciated since sometimes renal refers higher blood pressures (10) Cocaine abuse Is this a current diagnosis for this admission?: Yes Plan: Patient advised to quit (11) Nicotine abuse Is this a current diagnosis for this admission?: Yes Plan: Continue nicotine patch. Patient educated about quitting smoking. Relates that is somewhat difficult because he had been smoking for a good amount of time (12) Constipation Qualifiers: Constipation type: unspecified constipation type Qualified Code(s): K59.00 - Constipation, unspecified Is this a current diagnosis for this admission?: Yes Plan: To place on bowel regimen - Time Time Spent with patient: 15-24 minutes Medications reviewed and adjusted accordingly: Yes Anticipated discharge: Home with Homehealth Within: within 72 hours - Inpatient Certification Based on my medical assessment, after consideration of the patient's comorbidities, presenting symptoms, or acuity I expect that the services needed warrant INPATIENT care.: Yes I certify that my determination is in accordance with my understanding of Medicare's requirements for reasonable and necessary INPATIENT services [42 CFR 412.3e].: Yes Medical Necessity: Need Close Monitoring Due to Risk of Patient Decompensation, Need For Continuous Telemetry Monitoring
[2017-09-14] MEDS: LACTULOSE SYRUP 20 GM/30 ML UDCUP PO SCH (22:55)
[2017-09-14] MEDS: ATORVASTATIN CALCIUM 10 MG TABLET PO SCH (22:58)
[2017-09-14] MEDS: LORAZEPAM 0.5 MG TABLET PO PRN (23:00)
[2017-09-15] MEDS: HYDRALAZINE HCL 50 MG TABLET PO SCH ×3 (01:10→17:33)
[2017-09-15] MEDS: FUROSEMIDE INJ/PF 100 MG/10 ML SDV IV SCH ×2 (05:36→13:34)
[2017-09-15] MEDS: CLONIDINE HCL 0.1 MG TABLET PO SCH ×3 (05:38→21:43)
[2017-09-15 06:13] LABS: ABSOLUTE BASOPHILS # (AUTO) 0.1 10^3/uL (0.0-0.2); ABSOLUTE EOSINOPHILS # (AUTO) 0.3 10^3/uL (0.0-0.6); ABSOLUTE LYMPHOCYTES (AUTO) 2.5 10^3/uL (0.5-4.7); ABSOLUTE MONOCYTES (AUTO) 0.9 10^3/uL (0.1-1.4); ABSOLUTE NEUT (AUTO) 2.9 10^3/uL (1.7-8.2); BASOPHILS % (AUTO) 0.9 % (0-2); EOSINOPHILS % (AUTO) 5.1 % (0-6); HEMATOCRIT 34.7 % (37.9-51.0); HEMOGLOBIN 11.7 g/dL (13.5-17.0); LYMPHOCYTES % (AUTO) 37.3 % (13-45); MEAN CORPUSCULAR HEMOGLOBIN 29.9 pg (27.0-33.4); MEAN CORPUSCULAR HGB CONC 33.9 g/dL (32.0-36.0); MEAN CORPUSCULAR VOLUME 88 fl (80-97); MONOCYTES % (AUTO) 13.6 % (3-13); PLATELET COUNT 201 10^3/uL (150-450); RED BLOOD COUNT 3.93 10^6/uL (4.35-5.55); RED CELL DISTRIBUTION WIDTH 15.1 % (11.5-14.0); SEGMENTED NEUTROPHILS % (AUTO) 43.1 % (42-78); TOTAL CELLS COUNTED % (AUTO) 100 %; WHITE BLOOD COUNT 6.8 10^3/uL (4.0-10.5)
[2017-09-15 06:30] LABS: ANION GAP 19 (5-19); BLOOD UREA NITROGEN 76 mg/dL (7-20); CARBON DIOXIDE 24 mmol/L (22-30); CHLORIDE 97 mmol/L (98-107); GLUCOSE 96 mg/dL (75-110); POTASSIUM 4.2 mmol/L (3.6-5.0)
[2017-09-15] MEDS ORDERED: MIDAZOLAM 2 MG/2 ML INJ ONE (07:55)
[2017-09-15] MEDS ORDERED: CEFAZOLIN INJ 1 GM VIAL ONE (07:55)
[2017-09-15] MEDS ORDERED: LIDOCAINE 0.5% INJ-PF (5 MG/ML) 50 ML SDV ONE (07:55)
[2017-09-15] MEDS ORDERED: FENTANYL CITRATE INJ/PF 100 MCG/2 ML AMPUL ONE (07:56)
[2017-09-15] MEDS ORDERED: BACITRACIN INJ 50,000 UNIT VIAL ONE (07:56)
--- NOTE | 2017-09-15 09:56 | RADIOLOGY REPORT (SQ) ---
EXAM DESCRIPTION: TUNNELED CENTRAL LINE; GUIDANCE FLUOROSCOPIC COMPLETED DATE/TIME: 09/15/2017 9:32 am REASON FOR STUDY: NEED FOR VASCULAR ACCESS COMPARISON: AP chest 09/12/2017, 09/10/2017 FLUOROSCOPY TIME: 1 minutes 21 series of digital images saved to PACS. TECHNIQUE: Intra-operative images acquired during surgical procedure to evaluate progress. NUMBER OF IMAGES: Cine fluoroscopic images. LIMITATIONS: None. FINDINGS: Intra procedural imaging and fluoro during placement of a left-sided tunneled central veno us dialysis catheter with the tip in the SVC/right atrium. IMPRESSION: Intra procedural imaging and fluoro COMMENT: Quality ID [id number]: Final reports for procedures using fluoroscopy that document radiation exp osure indices, or exposure time and number of fluorographic images (if radiation exposure indices are not available) Please consult full operative report of the attending physician for description of the procedure. TECHNICAL DOCUMENTATION: JOB ID: [id number] [employer]- All Rights Reserved Reading location - IP/workstation name: [email or web address]
--- NOTE | 2017-09-15 09:56 | RADIOLOGY REPORT (SQ) ---
EXAM DESCRIPTION: TUNNELED CENTRAL LINE; GUIDANCE FLUOROSCOPIC COMPLETED DATE/TIME: 09/15/2017 9:32 am REASON FOR STUDY: NEED FOR VASCULAR ACCESS COMPARISON: AP chest 09/12/2017, 09/10/2017 FLUOROSCOPY TIME: 1 minutes 21 series of digital images saved to PACS. TECHNIQUE: Intra-operative images acquired during surgical procedure to evaluate progress. NUMBER OF IMAGES: Cine fluoroscopic images. LIMITATIONS: None. FINDINGS: Intra procedural imaging and fluoro during placement of a left-sided tunneled central veno us dialysis catheter with the tip in the SVC/right atrium. IMPRESSION: Intra procedural imaging and fluoro COMMENT: Quality ID [id number]: Final reports for procedures using fluoroscopy that document radiation exp osure indices, or exposure time and number of fluorographic images (if radiation exposure indices are not available) Please consult full operative report of the attending physician for description of the procedure. TECHNICAL DOCUMENTATION: JOB ID: [id number] [employer]- All Rights Reserved Reading location - IP/workstation name: [email or web address]
[2017-09-15] MEDS: HEPARIN SOD (PORCINE) 5,000 UNIT/ML 1 ML SYRINGE SUBCUT SCH ×2 (09:59→21:43)
[2017-09-15] MEDS: METOLAZONE 5 MG TABLET PO SCH (10:00)
[2017-09-15] MEDS ORDERED: ONDANSETRON 4 MG TAB.RAPDIS PO PRN (10:00)
[2017-09-15] MEDS: AMLODIPINE BESYLATE 5 MG TABLET PO SCH (10:00)
[2017-09-15] MEDS: CARVEDILOL 12.5 MG TABLET PO SCH ×2 (10:00→21:43)
[2017-09-15] MEDS: ISOSORBIDE MONONITRATE 60 MG TAB.ER.24H PO SCH (10:01)
[2017-09-15] MEDS: CALCIUM CARBONATE 500 MG TABLET PO SCH ×2 (10:01→17:33)
[2017-09-15] MEDS: LANSOPRAZOLE 30 MG TAB.RAP.DR PO SCH (10:01)
[2017-09-15] MEDS: CALCITRIOL 0.25 MCG CAPSULE PO SCH (10:01)
[2017-09-15] MEDS: NICOTINE 14 MG/24 HR PATCH.TD24 TD SCH (10:02)
[2017-09-15] MEDS: POLYETHYLENE GLYCOL 3350 POWDER 17 GM/1 PACKET PO SCH (10:02)
[2017-09-15] MEDS ORDERED: HEPARIN SOD (PORCINE) 1,000 UNIT/ML 10 ML VIAL IV PRN (10:08)
[2017-09-15] MEDS: OXYCODONE HCL IR 5 MG TABLET PO PRN ×2 (12:12→21:43)
[2017-09-15] MEDS ORDERED: LORAZEPAM 0.5 MG TABLET PO PRN (15:00)
[2017-09-15] MEDS ORDERED: ACETAMINOPHEN 325 MG TABLET PO PRN (15:00)
[2017-09-15] MEDS ORDERED: HYDRALAZINE HCL INJ/PF 20 MG/1 ML SDV IV PRN (15:00)
--- NOTE | 2017-09-15 16:19 | PDOC PROGRESS REPORT ---
Subjective Progress Note for:: 09/15/17 Reason For Visit: Seen on dialysis.Patient feeling lots better regards his dyspnea especially the orthopnea. Had a IJ catheter done this AM. No issues with that. Now undergoing dialysis without any issues. No chest pains, fever or chills.Labs and meds were reviewed with him.Very good urine out put.Has foleys. Physical Exam Vital Signs: Temp Pulse Resp BP Pulse Ox 97.8 F 73 18 100/56 L 97 09/15/17 15:17 09/15/17 15:17 09/15/17 15:17 09/15/17 15:17 09/15/17 15:17 Intake & Output 09/14/17 09/15/17 09/16/17 06:59 06:59 06:59 Intake Total 20 1477 Output Total 5526 5308 Balance -2867 -9366 Weight 73 kg 65.5 kg General appearance: PRESENT: no acute distress Respiratory exam: PRESENT: clear to auscultation ramila. ABSENT: crackles, rhonchi Cardiovascular exam: PRESENT: RRR, +S1, +S2 GI/Abdominal exam: PRESENT: soft. ABSENT: ascites, rebound, tenderness Neurological exam: PRESENT: alert, awake, oriented to person, oriented to place Results Laboratory Results: 09/15/17 05:42 09/15/17 05:42 09/15/17 09/15/17 05:42 05:42 WBC 6.8 RBC 3.93 L Hgb 11.7 L Hct 34.7 L MCV 88 MCH 29.9 MCHC 33.9 RDW 15.1 H Plt Count 201 Seg Neutrophils % 43.1 Lymphocytes % 37.3 Monocytes % 13.6 H Eosinophils % 5.1 Basophils % 0.9 Absolute Neutrophils 2.9 Absolute Lymphocytes 2.5 Absolute Monocytes 0.9 Absolute Eosinophils 0.3 Absolute Basophils 0.1 Sodium 140.0 Potassium 4.2 Chloride 97 L Carbon Dioxide 24 Anion Gap 19 BUN 76 H Creatinine 6.94 H Est GFR ( Amer) 10 L Est GFR (Non-Af Amer) 8 L Glucose 96 Calcium 8.0 L 09/11/17 09/11/17 09/11/17 00:56 06:51 13:36 Troponin I 0.038 0.044 0.037 Impressions: Chest X-Ray 09/12/17 13:03 IMPRESSION: Fluid overload with pulmonary vascular congestion and mild interstitial edema. This is similar compared to 09/10/2017 Central Venous Line 09/15/17 00:00 IMPRESSION: Intra procedural imaging and fluoro Guidance Fluoroscopy 09/15/17 00:00 IMPRESSION: Intra procedural imaging and fluoro Assessment & Plan - Diagnosis (1) Acute on chronic systolic and diastolic heart failure, NYHA class 3 Is this a current diagnosis for this admission?: Yes Plan: Resolved.Titrate down diuretics. (2) Cocaine use Is this a current diagnosis for this admission?: Yes Plan: adv to quit. (3) ESRD (end stage renal disease) Is this a current diagnosis for this admission?: Yes Plan: Initiated on HD.Beingseen onHD which is being supervised to ensure a safe and smooth procedure. VS stable but for mild episode of hypotension as he is clinically dry. Will therefore keep him positive by 400 cc. Orders were discussed with treating JARROD Fontaine. conference planner to cordinate next dialysis as an out patient at [facility]. (4) HIV (human immunodeficiency virus infection) Is this a current diagnosis for this admission?: Yes Plan: As per hospitalist. (5) Metabolic acidosis Is this a current diagnosis for this admission?: Yes Plan: Resolved. (6) Renal osteodystrophy Plan: On calcitriol.
--- NOTE | 2017-09-15 16:56 | PDOC PROGRESS REPORT ---
Subjective Progress Note for:: 09/15/17 Subjective:: PermCath catheter placed today Patient to undergo dialysis Patient was somewhat nauseous and hypotensive when he reached the floor; blood pressure meds were held No chest pain no shortness of breath Recheck later is feeling better; patient likely had a vasovagal episode Reason For Visit: NEED FOR VASCULAR ACCESS Physical Exam Vital Signs: Temp Pulse Resp BP Pulse Ox 97.8 F 73 18 100/56 L 97 09/15/17 15:17 09/15/17 15:17 09/15/17 15:17 09/15/17 15:17 09/15/17 15:17 Intake & Output 09/14/17 09/15/17 09/16/17 00:59 00:59 00:59 Intake Total 20 1467 10 Output Total 5470 5325 1600 Balance -5613 -3334 -5780 Weight 74.1 kg 73 kg 65.5 kg General appearance: PRESENT: Appears chronically ill in no acute distress; anxious Head exam: PRESENT: atraumatic, normocephalic Eye exam: PRESENT: conjunctiva pink, EOMI, PERRLA Ear exam: PRESENT: normal external ear exam Mouth exam: PRESENT: moist Left chest : PermCath in place Neck exam: PRESENT: full ROM. ABSENT: JVD, lymphadenopathy, tenderness Respiratory exam: PRESENT: crackles - Soft basilar crackles with adequate movement of air Cardiovascular exam: PRESENT: RRR. ABSENT: diastolic murmur, systolic murmur Vascular exam: PRESENT: normal capillary refill GI/Abdominal exam: PRESENT: normal bowel sounds, soft. ABSENT: tenderness Extremities exam: ABSENT: joint swelling Musculoskeletal exam: ABSENT: ambulatory Neurological exam: PRESENT: alert, awake, oriented to person, oriented to place , oriented to time, oriented to situation, CN II-XII grossly intact Results Laboratory Results: 09/15/17 05:42 09/15/17 05:42 09/15/17 09/15/17 05:42 05:42 WBC 6.8 RBC 3.93 L Hgb 11.7 L Hct 34.7 L MCV 88 MCH 29.9 MCHC 33.9 RDW 15.1 H Plt Count 201 Seg Neutrophils % 43.1 Lymphocytes % 37.3 Monocytes % 13.6 H Eosinophils % 5.1 Basophils % 0.9 Absolute Neutrophils 2.9 Absolute Lymphocytes 2.5 Absolute Monocytes 0.9 Absolute Eosinophils 0.3 Absolute Basophils 0.1 Sodium 140.0 Potassium 4.2 Chloride 97 L Carbon Dioxide 24 Anion Gap 19 BUN 76 H Creatinine 6.94 H Est GFR ( Amer) 10 L Est GFR (Non-Af Amer) 8 L Glucose 96 Calcium 8.0 L 09/11/17 09/11/17 09/11/17 00:56 06:51 13:36 Troponin I 0.038 0.044 0.037 Impressions: Chest X-Ray 09/12/17 13:03 IMPRESSION: Fluid overload with pulmonary vascular congestion and mild interstitial edema. This is similar compared to 09/10/2017 Central Venous Line 09/15/17 00:00 IMPRESSION: Intra procedural imaging and fluoro Guidance Fluoroscopy 09/15/17 00:00 IMPRESSION: Intra procedural imaging and fluoro Assessment & Plan - Time Time Spent with patient: (1) Acute on chronic systolic and diastolic heart failure, NYHA class 3 Is this a current diagnosis for this admission?: Yes Plan: Initiate hemodialysis as per nephrology (2) Anemia in chronic kidney disease (CKD) Qualifiers: Chronic kidney disease stage: stage 5, not on chronic dialysis Qualified Code(s): N18.5 - Chronic kidney disease, stage 5; D63.1 - Anemia in chronic kidney disease Is this a current diagnosis for this admission?: Yes Plan: Stable when considering advanced kidney disease. (3) Chronic kidney disease, stage V (very severe) Is this a current diagnosis for this admission?: Yes Plan: Patient was unable to lay flat for dialysis cath. Renal had added diuretics. Hopefully patient will be ready for insertion of dialysis cath tomorrow (4) HIV (human immunodeficiency virus infection) Is this a current diagnosis for this admission?: Yes Plan: Continue with outpatient regimen (5) History of DVT (deep vein thrombosis) Is this a current diagnosis for this admission?: Yes Plan: Patient had been on Coumadin as outpatient but he was not taking it consistently. Once he gets a dialysis cath placed recommend to place him on Eliquis since recently approved for end-stage renal disease patients; will discuss anticoagulation with Dr. Lowe in a.m. (6) Hypocalcemia Is this a current diagnosis for this admission?: Yes Plan: Replaced (7) Metabolic acidosis Is this a current diagnosis for this admission?: Yes Plan: Likely due to tubular acidosis. Managed as per renal (8) Secondary hyperparathyroidism (of renal origin) Is this a current diagnosis for this admission?: Yes Plan: As per renal (9) Uncontrolled hypertension Is this a current diagnosis for this admission?: Yes Plan: Continue current regimen. Input from renal appreciated since sometimes renal refers higher blood pressures (10) Cocaine abuse Is this a current diagnosis for this admission?: Yes Plan: Patient advised to quit (11) Nicotine abuse Is this a current diagnosis for this admission?: Yes Plan: Continue nicotine patch. Patient educated about quitting smoking. Relates that is somewhat difficult because he had been smoking for a good amount of time (12) Constipation Qualifiers: Constipation type: unspecified constipation type Qualified Code(s): K59.00 - Constipation, unspecified Is this a current diagnosis for this admission?: Yes Plan: To place on bowel regimen continue present management Time Spent with patient: 25-34 minutes
[2017-09-15] MEDS: ATORVASTATIN CALCIUM 10 MG TABLET PO SCH (21:43)
[2017-09-15] MEDS: LACTULOSE SYRUP 20 GM/30 ML UDCUP PO SCH (21:44)
[2017-09-15] MEDS ORDERED: FUROSEMIDE INJ/PF 20 MG/2 ML SDV IV SCH (22:00)
[2017-09-16] MEDS: HYDRALAZINE HCL 50 MG TABLET PO SCH ×3 (02:04→18:08)
[2017-09-16] MEDS: OXYCODONE HCL IR 5 MG TABLET PO PRN ×3 (02:06→21:22)
[2017-09-16] MEDS: CLONIDINE HCL 0.1 MG TABLET PO SCH ×3 (06:03→21:23)
[2017-09-16] MEDS: LANSOPRAZOLE 30 MG TAB.RAP.DR PO SCH (06:03)
[2017-09-16 06:39] LABS: HEPATITS B SURFACE ANTIGEN Negative (Negative)
[2017-09-16 07:10] LABS: ANION GAP 14 (5-19); BLOOD UREA NITROGEN 50 mg/dL (7-20); CALCIUM 7.5 mg/dL (8.4-10.2); CARBON DIOXIDE 23 mmol/L (22-30); CHLORIDE 100 mmol/L (98-107); GLUCOSE 117 mg/dL (75-110); POTASSIUM 4.1 mmol/L (3.6-5.0); SODIUM 136.5 mmol/L (137-145)
[2017-09-16 07:16] LABS: HEPATITIS B CORE AB TOT Positive (Negative); HEPATITIS B SURFACE AB QUANT >1000.0 mIU/mL (Immunity>9.9)
--- NOTE | 2017-09-16 08:44 | Operative Report ---
Operative Report DATE OF SURGERY: 09/15/17 PREOPERATIVE DIAGNOSIS: 1. End-stage renal disease requiring hemodynamic dialysis. 2. Multiple comorbidities. POSTOPERATIVE DIAGNOSIS: 1. End-stage renal disease requiring hemodynamic dialysis. 2. Multiple comorbidities. OPERATION: 1. Ultrasound evaluation of the left internal jugular vein. 2. Insertion of PermCath via real-time access in the left internal jugular vein. 3. Angiogram and interpretation. SURGEON: SHIV GIVENS ROLLED MATERIALS WORKER: None ANESTHESIA: Moderate Sedation TISSUE REMOVED OR ALTERED: Not applicable. COMPLICATIONS: None. ESTIMATED BLOOD LOSS: 5 mL. INTRAOPERATIVE FINDINGS: Of satisfactory and safe axis in the left internal jugular vein. Negotiating recurrence of the junctions of the innominate and superior vena cava challenging for the larger catheters. Soft by use of a stiff Glidewire. Satisfactory position with the tip down in the right atrium. Easy egress of blood and ingress of heparinized solution. Satisfactory angiogram with smooth flow of contrast through the right atrium, ventricle and pulmonary outflow tract. PROCEDURE: After obtaining informed consent, the patient was taken to the [[facility]] and positioned supine. The [left neck] and chest were prepared with chlorhexidine and draped out with sterile linen. After the " universal timeout", in which it was verified that the patient continued to receive antibiotic, the procedure commenced. A steriley sheathed ultrasound probe was used to evaluate the [ left internal jugular] vein. Local anesthesia was infiltrated adjacent to the probe. Access into the [left internal jugular] vein was obtained using a micropuncture needle, followed by micropuncture wire and then a micropuncture catheter. This was followed by introduction of a 0.035 guidewire the tip of which was placed down into the inferior vena cava . A 27 cm long [split catheter] was now positioned over the chest and an exit site marked and locally anesthetized ,the catheter was placed between the 2 incisions. It proved difficult to transit the innominate, superior vena cava junction. For this reason the guidewire was switched to the Glidewire. Still challenging at this the entrance of the junction. The Glidewire was now replaced using a Kumpe catheter and then a zip Glidewire. This proved satisfactory support. Proximally, the catheter was now positioned using a peel-away sheath, after dilation. Easy ingress of heparinized solution and egress of blood obtained through both ports. A completion angiogram was done by injecting contrast. The findings were as dictated. The neck incision was now closed using interrupted 3-0 PDS to the subcutaneous tissues, the catheter was anchored at the exit site using 3-0 PDS. A Biopatch device was now placed adjacent to the catheter. Dressings were applied and the procedure concluded. Copies of the dictated operative report for Dr. Shiv Sutton MD.concluded. Copies of the dictated operative report for Dr. Shiv Sutton MD.
[2017-09-16] MEDS ORDERED: AMLODIPINE BESYLATE 10 MG TABLET PO SCH (10:00)
[2017-09-16] MEDS: HEPARIN SOD (PORCINE) 5,000 UNIT/ML 1 ML SYRINGE SUBCUT SCH ×2 (10:03→21:23)
[2017-09-16] MEDS: CARVEDILOL 12.5 MG TABLET PO SCH ×2 (10:04→21:23)
[2017-09-16] MEDS: CALCITRIOL 0.25 MCG CAPSULE PO SCH (10:04)
[2017-09-16] MEDS: ISOSORBIDE MONONITRATE 60 MG TAB.ER.24H PO SCH (10:04)
[2017-09-16] MEDS: CALCIUM CARBONATE 500 MG TABLET PO SCH ×2 (10:04→18:08)
[2017-09-16] MEDS: FUROSEMIDE 20 MG TABLET PO SCH (10:05)
[2017-09-16] MEDS: POLYETHYLENE GLYCOL 3350 POWDER 17 GM/1 PACKET PO SCH (10:06)
[2017-09-16] MEDS: NICOTINE 14 MG/24 HR PATCH.TD24 TD SCH (10:06)
--- NOTE | 2017-09-16 18:11 | PDOC PROGRESS REPORT ---
Subjective Progress Note for:: 09/16/17 Subjective:: Patient has no complaints today and is feeling well Blood pressures improved Patient to undergo dialysis tomorrow and will be discharged after Reason For Visit: NEED FOR VASCULAR ACCESS Physical Exam Vital Signs: Temp Pulse Resp BP Pulse Ox 98.3 F 75 16 124/71 97 09/16/17 16:00 09/16/17 16:00 09/16/17 16:00 09/16/17 16:00 09/16/17 16:00 Intake & Output 09/15/17 09/16/17 09/17/17 00:59 00:59 00:59 Intake Total 1467 10 Output Total 5325 1600 Balance -1711 -7467 Weight 73 kg 65.5 kg 77.1 kg General appearance: PRESENT: Appears chronically ill in no acute distress; anxious Head exam: PRESENT: atraumatic, normocephalic Eye exam: PRESENT: conjunctiva pink, EOMI, PERRLA Ear exam: PRESENT: normal external ear exam Mouth exam: PRESENT: moist Left chest : PermCath in place Neck exam: PRESENT: full ROM. ABSENT: JVD, lymphadenopathy, tenderness Respiratory exam: PRESENT: crackles - Soft basilar crackles with adequate movement of air Cardiovascular exam: PRESENT: RRR. ABSENT: diastolic murmur, systolic murmur Vascular exam: PRESENT: normal capillary refill GI/Abdominal exam: PRESENT: normal bowel sounds, soft. ABSENT: tenderness Extremities exam: ABSENT: joint swelling Musculoskeletal exam: ABSENT: ambulatory Neurological exam: PRESENT: alert, awake, oriented to person, oriented to place , oriented to time, oriented to situation, CN II-XII grossly intact Results Laboratory Results: 09/15/17 05:42 09/16/17 06:36 09/16/17 06:36 Sodium 136.5 L Potassium 4.1 Chloride 100 Carbon Dioxide 23 Anion Gap 14 BUN 50 H Creatinine 4.96 H Est GFR ( Amer) 14 L Est GFR (Non-Af Amer) 12 L Glucose 117 H Calcium 7.5 L 09/11/17 09/11/17 09/11/17 00:56 06:51 13:36 Troponin I 0.038 0.044 0.037 Impressions: Chest X-Ray 09/12/17 13:03 IMPRESSION: Fluid overload with pulmonary vascular congestion and mild interstitial edema. This is similar compared to 09/10/2017 Central Venous Line 09/15/17 00:00 IMPRESSION: Intra procedural imaging and fluoro Guidance Fluoroscopy 09/15/17 00:00 IMPRESSION: Intra procedural imaging and fluoro Assessment & Plan - Time Time Spent with patient: (1) Acute on chronic systolic and diastolic heart failure, NYHA class 3 Is this a current diagnosis for this admission?: Yes Plan: Initiate hemodialysis as per nephrology (2) Anemia in chronic kidney disease (CKD) Qualifiers: Chronic kidney disease stage: stage 5, not on chronic dialysis Qualified Code(s): N18.5 - Chronic kidney disease, stage 5; D63.1 - Anemia in chronic kidney disease Is this a current diagnosis for this admission?: Yes Plan: Stable when considering advanced kidney disease. (3) Chronic kidney disease, stage V (very severe) Is this a current diagnosis for this admission?: Yes Plan: Patient was unable to lay flat for dialysis cath. Renal had added diuretics. Hopefully patient will be ready for insertion of dialysis cath tomorrow (4) HIV (human immunodeficiency virus infection) Is this a current diagnosis for this admission?: Yes Plan: Continue with outpatient regimen (5) History of DVT (deep vein thrombosis) Is this a current diagnosis for this admission?: Yes Plan: Patient had been on Coumadin as outpatient but he was not taking it consistently. Once he gets a dialysis cath placed recommend to place him on Eliquis since recently approved for end-stage renal disease patients; will discuss anticoagulation with Dr. Lowe in a.m. (6) Hypocalcemia Is this a current diagnosis for this admission?: Yes Plan: Replaced (7) Metabolic acidosis Is this a current diagnosis for this admission?: Yes Plan: Likely due to tubular acidosis. Managed as per renal (8) Secondary hyperparathyroidism (of renal origin) Is this a current diagnosis for this admission?: Yes Plan: As per renal (9) Uncontrolled hypertension Is this a current diagnosis for this admission?: Yes Plan: Continue current regimen. Input from renal appreciated since sometimes renal refers higher blood pressures (10) Cocaine abuse Is this a current diagnosis for this admission?: Yes Plan: Patient advised to quit (11) Nicotine abuse Is this a current diagnosis for this admission?: Yes Plan: Continue nicotine patch. Patient educated about quitting smoking. Relates that is somewhat difficult because he had been smoking for a good amount of time Time Spent with patient: 25-34 minutes - Plan Summary Plan Summary: Discharge patient after dialysis tomorrow Patient will continue dialysis at [facility] on Friday
--- NOTE | 2017-09-16 20:21 | PDOC PROGRESS REPORT ---
Subjective Progress Note for:: 09/16/17 Subjective:: At the time he was laying in bed comfortably, not short of breath. Admits to being tired after dialysis. Currently denies chest pain, fevers or chills. He does have a cough and says it is producing clear sputum occasionally. Reason For Visit: NEED FOR VASCULAR ACCESS Physical Exam Vital Signs: Temp Pulse Resp BP Pulse Ox 98.3 F 75 16 124/71 97 09/16/17 16:00 09/16/17 16:00 09/16/17 16:00 09/16/17 16:00 09/16/17 16:00 Intake & Output 09/15/17 09/16/17 09/17/17 06:59 06:59 06:59 Intake Total 1477 810 Output Total 5300 950 Balance -3823 -140 Weight 65.5 kg 77.1 kg General appearance: PRESENT: no acute distress, well-developed, well-nourished Neck exam: PRESENT: full ROM. ABSENT: JVD Respiratory exam: PRESENT: crackles, rales. ABSENT: accessory muscle use, clear to auscultation ramila, wheezes Cardiovascular exam: PRESENT: RRR, +S1, +S2 GI/Abdominal exam: PRESENT: soft. ABSENT: ascites, rebound, tenderness Extremities exam: PRESENT: pedal edema - -trace+. ABSENT: tenderness Musculoskeletal exam: PRESENT: normal inspection. ABSENT: tenderness Neurological exam: PRESENT: alert, awake, oriented to person, oriented to place , oriented to time, oriented to situation Skin exam: PRESENT: dry, intact, warm Results Laboratory Results: 09/15/17 05:42 09/16/17 06:36 09/16/17 06:36 Sodium 136.5 L Potassium 4.1 Chloride 100 Carbon Dioxide 23 Anion Gap 14 BUN 50 H Creatinine 4.96 H Est GFR ( Amer) 14 L Est GFR (Non-Af Amer) 12 L Glucose 117 H Calcium 7.5 L 09/11/17 09/11/17 09/11/17 00:56 06:51 13:36 Troponin I 0.038 0.044 0.037 Impressions: Chest X-Ray 09/12/17 13:03 IMPRESSION: Fluid overload with pulmonary vascular congestion and mild interstitial edema. This is similar compared to 09/10/2017 Central Venous Line 09/15/17 00:00 IMPRESSION: Intra procedural imaging and fluoro Guidance Fluoroscopy 09/15/17 00:00 IMPRESSION: Intra procedural imaging and fluoro Assessment & Plan - Diagnosis (1) ESRD (end stage renal disease) Is this a current diagnosis for this admission?: Yes Plan: will arrange for more dialysis tomorrow. Then look to discharge. Need to coordinate discharge planning for outpatient dialysis at [facility] dialysis unit (2) CHF (congestive heart failure) Qualifiers: Heart failure type: unspecified Heart failure chronicity: unspecified Qualified Code(s): I50.9 - Heart failure, unspecified Plan: patient is noncompliant with fluid restriction, will dialysis to remove fluid. (3) Essential hypertension Is this a current diagnosis for this admission?: Yes Plan: improved at the hospital, patient needs compliance and to stop using cocaine (4) Hypocalcemia Is this a current diagnosis for this admission?: Yes Plan: on PO calcium replacement (5) Metabolic acidosis Is this a current diagnosis for this admission?: Yes Plan: on 1,300mg of sodium bicarb TID a day, will look to decrease due to being on dialysis (6) COPD exacerbation Plan: receiving duonebs (7) Cocaine use Is this a current diagnosis for this admission?: Yes (8) HIV (human immunodeficiency virus infection) Is this a current diagnosis for this admission?: Yes Plan: being managed by hospitalist - Notes Notes: patient was discussed with Dr. Lowe
[2017-09-16] MEDS: LACTULOSE SYRUP 20 GM/30 ML UDCUP PO SCH (21:08)
[2017-09-16] MEDS: ATORVASTATIN CALCIUM 10 MG TABLET PO SCH (21:22)
[2017-09-17] MEDS: HYDRALAZINE HCL 50 MG TABLET PO SCH ×2 (01:27→12:53)
[2017-09-17] MEDS: CLONIDINE HCL 0.1 MG TABLET PO SCH (05:28)
[2017-09-17] MEDS: LANSOPRAZOLE 30 MG TAB.RAP.DR PO SCH (05:28)
[2017-09-17 07:30] LABS: ANION GAP 15 (5-19); BLOOD UREA NITROGEN 58 mg/dL (7-20); CALCIUM 7.8 mg/dL (8.4-10.2); CARBON DIOXIDE 23 mmol/L (22-30); CHLORIDE 98 mmol/L (98-107); GLUCOSE 193 mg/dL (75-110); POTASSIUM 3.8 mmol/L (3.6-5.0); SODIUM 136.2 mmol/L (137-145)
[2017-09-17 10:38] LABS: HEPATITIS C QUANTITATION HCV Not Detected IU/mL (.)
[2017-09-17] MEDS ORDERED: HEPARIN SOD (PORCINE) 1,000 UNIT/ML 10 ML VIAL IV PRN (11:11)
[2017-09-17] MEDS: HEPARIN SOD (PORCINE) 5,000 UNIT/ML 1 ML SYRINGE SUBCUT SCH (12:51)
--- NOTE | 2017-09-17 12:51 | PDOC DISCHARGE SUMMARY ---
General - Admit/Disc Date/PCP Admission Date/Primary Care Provider: 09/10/17 20:58 KENIA FRANCIS MD Discharge Date: 09/17/17 - Additional Information Resuscitation Status: Full Code Discharge Diet: Cardiac Discharge Activity: Activity As Tolerated, Balance Activity w/Rest Prescriptions: Oxycodone HCl [Oxy-Ir 5 mg Tablet] 5 mg PO Q4HP PRN #15 tablet PRN Reason: Apixaban [Eliquis 2.5 mg Tablet] 2.5 mg PO BID 30 Days #60 tablet Furosemide [Lasix 20 mg Tablet] 20 mg PO DAILY 30 Days #30 tablet Nicotine [Nicoderm 14 mg/24 Hr Transdermal Patch] 1 each TD DAILY 30 Days #30 patch.td24 Polyethylene Glycol 3350 [Miralax Powder 17 gm/Packet] 17 gm PO DAILY 30 Days # 30 powd.pack Home Medications: Abacavir Sulfate [Ziagen 300 mg Tablet] 600 mg PO DAILY 09/10/17 Albuterol Sulfate [Albuterol Sulfate 2.5mg/3 mL] 3 ml NEB Q8 09/10/17 Albuterol Sulfate [Ventolin HFA MDI 18 GM] 2 puff IH Q6HP PRN 09/10/17 Beclomethasone Dipropionate [Qvar] 2 puff IH Q12 09/10/17 Calcitriol [Rocaltrol 0.25 mcg Capsule] 0.25 mcg PO DAILY 09/10/17 Carvedilol [Coreg 25 mg Tablet] 25 mg PO Q12 09/10/17 Clonidine HCl [Catapres 0.1 mg Tablet] 0.1 mg PO Q12 09/10/17 Dolutegravir Sodium [Tivicay] 50 mg PO DAILY 09/10/17 Hydralazine HCl 100 mg PO Q8 09/10/17 Ipratropium/Albuterol Sulfate [Iprat-Albut 0.5-3(2.5) mg/3 ml] 3 ml NEB Q6 09/10 Isosorbide Mononitrate [Isosorbide Mononitrate ER] 120 mg PO DAILY 09/10/17 Lamivudine [Epivir] 50 mg PO DAILY 09/10/17 Nicotine [Nicoderm 21 mg/24 Hr Transderm Patch] 1 patch TOP DAILY 09/10/17 Nitroglycerin [Nitrostat] 0.4 mg SL Q5MP PRN 09/10/17 Pantoprazole Sodium [Protonix] 40 mg PO DAILY 09/10/17 Pravastatin Sodium [Pravachol] 40 mg PO DAILY 09/10/17 Sodium Bicarbonate [Sodium Bicarbonate 650 mg Tablet] 1,300 mg PO TID 09/10/17 Apixaban [Eliquis 2.5 mg Tablet] 2.5 mg PO BID 30 Days #60 tablet 09/17/17 Furosemide [Lasix 20 mg Tablet] 20 mg PO DAILY 30 Days #30 tablet 09/17/17 Lactulose [Cephulac Syrup 20 gm/30 ml Udcup] 20 gm PO QHS 30 Days #120 udc 09/17 Nicotine [Nicoderm 14 mg/24 Hr Transdermal Patch] 1 each TD DAILY 30 Days #30 patch.td24 09/17/17 Oxycodone HCl [Oxy-Ir 5 mg Tablet] 5 mg PO Q4HP PRN #15 tablet 09/17/17 Polyethylene Glycol 3350 [Miralax Powder 17 gm/Packet] 17 gm PO DAILY 30 Days # 30 powd.pack 09/17/17 History of Present Illness Patient complains of: swelling legs , SOB , needs dialysis History of Present Illness: KRISTY CANTU is a 62 year old male smoker with history of CHF/cardiomyopathy, 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 The patient was last hospitalized here from 09/02/2017 08/22/2017 with CHF/COPD exacerbation. He was seen today at Dr. Lowe' office and was advised to come to the ED for further management and treatment. Hospital Course Hospital Course: (1) Acute on chronic systolic and diastolic heart failure, NYHA class 3 Echocardiogram performed on 07/24/2017 showed an EF of 40% and moderate diastolic dysfunction Open admission patient was in pulmonary edema; vigorous diuresis was ordered, hydralazine Lasix and morphine He was admitted to the intensive care unit Patient was scheduled to have hemodialysis access to initiate dialysis as soon as possible Patient did extremely well fluid overload improved (2) Anemia in chronic kidney disease (CKD (3) Chronic kidney disease, stage V (very severe) Patient is now hemodialysis dependent Will have dialysis at [facility] Wednesdays and Fridays ; transportation has been arranged (4) HIV (human immunodeficiency virus infection) patient was continued on his outpatient regimen (5) History of DVT (deep vein thrombosis) Patient has been on Coumadin in the past 18 years on and off patient gives a history of arterial and Venous thrombosis . Likely has a diagnosis of hypercoagulability syndrome We will discharge him on Eliquis 2.5 mg po bid Physical Exam Vital Signs: Temp Pulse Resp BP Pulse Ox 98.3 F 70 16 141/83 H 98 09/17/17 05:21 09/17/17 07:00 09/17/17 05:21 09/17/17 05:21 09/17/17 05:21 Intake & Output 09/16/17 09/17/17 09/18/17 00:59 00:59 00:59 Intake Total 10 810 940 Output Total 7714 993 1936 Balance -1590 -140 -410 Weight 65.5 kg 77.1 kg 81.5 kg General appearance: PRESENT: Appears chronically ill in no acute distress; anxious Head exam: PRESENT: atraumatic, normocephalic Eye exam: PRESENT: conjunctiva pink, EOMI, PERRLA Ear exam: PRESENT: normal external ear exam Mouth exam: PRESENT: moist Left chest : PermCath in place Neck exam: PRESENT: full ROM. ABSENT: JVD, lymphadenopathy, tenderness Respiratory exam: PRESENT: crackles - Soft basilar crackles with adequate movement of air Cardiovascular exam: PRESENT: RRR. ABSENT: diastolic murmur, systolic murmur Vascular exam: PRESENT: normal capillary refill GI/Abdominal exam: PRESENT: normal bowel sounds, soft. ABSENT: tenderness Extremities exam: ABSENT:bilateral amputations Musculoskeletal exam: ABSENT: ambulatory Neurological exam: PRESENT: alert, awake, oriented to person, oriented to place , oriented to time, oriented to situation, CN II-XII grossly intact Results Laboratory Results: 09/15/17 05:42 09/17/17 06:18 09/17/17 06:18 Sodium 136.2 L Potassium 3.8 Chloride 98 Carbon Dioxide 23 Anion Gap 15 BUN 58 H Creatinine 5.72 H Est GFR ( Amer) 12 L Est GFR (Non-Af Amer) 10 L Glucose 193 H Calcium 7.8 L 09/11/17 09/11/17 09/11/17 00:56 06:51 13:36 Troponin I 0.038 0.044 0.037 Impressions: Chest X-Ray 09/12/17 13:03 IMPRESSION: Fluid overload with pulmonary vascular congestion and mild interstitial edema. This is similar compared to 09/10/2017 Central Venous Line 09/15/17 00:00 IMPRESSION: Intra procedural imaging and fluoro Guidance Fluoroscopy 09/15/17 00:00 IMPRESSION: Intra procedural imaging and fluoro Qualifiers - * PATEINT BEING DISCHARGED WITH ANY OF THE FOLLOWING DIAGNOSIS?: Heart Failure HF Pt being discharged on ACEI for LVEF less than 40%?: No Reason(s) for not prescribing ACEI:: Medical Contraindication - CKD HF Pt being discharged on ARBS for LVEF less than 40%?: No Reason(s) for not prescribing ARBS:: Medical Contraindication - CKD HF Pt with Afib discharged with Warfarin?: No Reason(s) for not prescribing Warfarin:: Not indicated - discharged patient on eliquis HF Pt discharged on evidence-based Beta Johanna:: Yes Plan Discharge Plan: discharge home dialysis on friday
[2017-09-17] MEDS: CALCIUM CARBONATE 500 MG TABLET PO SCH (12:52)
[2017-09-17] MEDS: ISOSORBIDE MONONITRATE 60 MG TAB.ER.24H PO SCH (12:52)
[2017-09-17] MEDS: CARVEDILOL 12.5 MG TABLET PO SCH (12:52)
[2017-09-17] MEDS: CALCITRIOL 0.25 MCG CAPSULE PO SCH (12:53)
[2017-09-17] MEDS: FUROSEMIDE 20 MG TABLET PO SCH (12:53)
[2017-09-17] MEDS: NICOTINE 14 MG/24 HR PATCH.TD24 TD SCH (12:55)
[2017-09-17] MEDS: POLYETHYLENE GLYCOL 3350 POWDER 17 GM/1 PACKET PO SCH (12:55)
--- NOTE | 2017-09-17 13:07 | PDOC PROGRESS REPORT ---
Subjective Progress Note for:: 09/17/17 Reason For Visit: Seen on dialysis today.Undergoing procedure without any issues.He denies any chest pains, dyspnea. Eating good.Labs and meds were reviewed with him. Physical Exam Vital Signs: Temp Pulse Resp BP Pulse Ox 98.3 F 70 16 141/83 H 98 09/17/17 05:21 09/17/17 07:00 09/17/17 05:21 09/17/17 05:21 09/17/17 05:21 Intake & Output 09/16/17 09/17/17 09/18/17 06:59 06:59 06:59 Intake Total 1750 Output Total 2300 Balance -550 Weight 77.1 kg 81.5 kg General appearance: PRESENT: no acute distress Respiratory exam: PRESENT: clear to auscultation ramila. ABSENT: crackles Cardiovascular exam: PRESENT: RRR, +S1, +S2 GI/Abdominal exam: PRESENT: soft. ABSENT: ascites, rebound, tenderness Extremities exam: ABSENT: pedal edema Neurological exam: PRESENT: alert, awake, oriented to person, oriented to place Results Laboratory Results: 09/15/17 05:42 09/17/17 06:18 09/17/17 06:18 Sodium 136.2 L Potassium 3.8 Chloride 98 Carbon Dioxide 23 Anion Gap 15 BUN 58 H Creatinine 5.72 H Est GFR ( Amer) 12 L Est GFR (Non-Af Amer) 10 L Glucose 193 H Calcium 7.8 L 09/11/17 09/11/17 09/11/17 00:56 06:51 13:36 Troponin I 0.038 0.044 0.037 Impressions: Chest X-Ray 09/12/17 13:03 IMPRESSION: Fluid overload with pulmonary vascular congestion and mild interstitial edema. This is similar compared to 09/10/2017 Central Venous Line 09/15/17 00:00 IMPRESSION: Intra procedural imaging and fluoro Guidance Fluoroscopy 09/15/17 00:00 IMPRESSION: Intra procedural imaging and fluoro Assessment & Plan - Diagnosis (1) Acute on chronic systolic and diastolic heart failure, NYHA class 3 Is this a current diagnosis for this admission?: Yes Plan: Resolved.Compensated.Discussed on diet and compliance with meds and HD rxs.Adv on quitting Cocaine which can lead to hypertensive crisis and CHF (2) Cocaine use Is this a current diagnosis for this admission?: Yes Plan: Discussed to stop it. (3) ESRD needing dialysis Is this a current diagnosis for this admission?: Yes Plan: Sen on dialysis today. Undergoing Dialysis without any issues.Its being supervised to ensure a safe and smooth procedure.Orders discussed with treating RN.He can be discharged to [facility] later today and continue OP dialysis. (4) Nicotine abuse Is this a current diagnosis for this admission?: Yes (5) Acute respiratory failure with hypoxia Plan: Resolved. (6) Hypocalcemia Is this a current diagnosis for this admission?: Yes Plan: Resolved. Monitor. (7) Metabolic acidosis Is this a current diagnosis for this admission?: Yes Plan: Resolved. (8) Renal osteodystrophy Plan: On calcitriol.
[2017-09-17 13:21] VITALS: BP 169/93
== END 2017-09-17 13:38 | disposition home or self-care (01) | DRG 291 ==
LOC: ER 14:15 → EH 20:58 → 5 23:05 → ICU 09-12 13:00 → 5 09-14 23:19
PROVIDERS: ADMIT Internal Medicine Geriatric Medicine; ATTEND Internal Medicine Geriatric Medicine
PROC: 3E0F73Z Introduction of Anti-inflammatory into Respiratory Tract, Via Natural or Artificial Opening (ICD-10-PCS; 2017-09-11)
PROC: 5A09457 Assistance with Respiratory Ventilation, 24-96 Consecutive Hours, Continuous Positive Airway Pressure (ICD-10-PCS; 2017-09-12)
PROC: 5A1D70Z Performance of Urinary Filtration, Intermittent, Less than 6 Hours Per Day (ICD-10-PCS; principal; 2017-09-15)
PROC: 02HV33Z Insertion of Infusion Device into Superior Vena Cava, Percutaneous Approach (ICD-10-PCS; 2017-09-15)
PROC: B548ZZA Ultrasonography of Superior Vena Cava, Guidance (ICD-10-PCS; 2017-09-15)
PROC: B5181ZZ Fluoroscopy of Superior Vena Cava using Low Osmolar Contrast (ICD-10-PCS; 2017-09-15)
PROC: 5A1D70Z Performance of Urinary Filtration, Intermittent, Less than 6 Hours Per Day (ICD-10-PCS; 2017-09-17)
DX: I13.2 Hypertensive heart and chronic kidney disease with heart failure and with stage 5 chronic kidney disease, or end stage renal disease (principal); N18.6 End stage renal disease; I50.43 Acute on chronic combined systolic (congestive) and diastolic (congestive) heart failure; J96.01 Acute respiratory failure with hypoxia; E87.2 Acidosis; J44.1 Chronic obstructive pulmonary disease with (acute) exacerbation; N25.81 Secondary hyperparathyroidism of renal origin; E78.00 Pure hypercholesterolemia, unspecified; E11.51 Type 2 diabetes mellitus with diabetic peripheral angiopathy without gangrene; K21.9 Gastro-esophageal reflux disease without esophagitis; M19.90 Unspecified osteoarthritis, unspecified site; F14.10 Cocaine abuse, uncomplicated; D63.1 Anemia in chronic kidney disease; F17.210 Nicotine dependence, cigarettes, uncomplicated; E83.51 Hypocalcemia; I42.9 Cardiomyopathy, unspecified; K59.00 Constipation, unspecified; N25.0 Renal osteodystrophy; Z21 Asymptomatic human immunodeficiency virus [HIV] infection status; Z91.14 Patient's other noncompliance with medication regimen; I25.2 Old myocardial infarction; Z86.711 Personal history of pulmonary embolism; Z89.511 Acquired absence of right leg below knee; Z89.612 Acquired absence of left leg above knee; Z79.899 Other long term (current) drug therapy; Z79.01 Long term (current) use of anticoagulants; Z99.2 Dependence on renal dialysis; Z91.11 Patient's noncompliance with dietary regimen; Z82.3 Family history of stroke; Z82.49 Family history of ischemic heart disease and other diseases of the circulatory system; Z83.3 Family history of diabetes mellitus; Z80.9 Family history of malignant neoplasm, unspecified
CPT/HCPCS: 36415; 36558; 71045; 71046; 76937; 77001; 80048; 80053; 80307; 80353; 83735; 83880; 84100; 84484; 85025; 85027; 85610; 85730; 86317; 86704; 87340; 87522; 93005; 93010; 94640; 94660; 99285; C1713; C1752; C1769; C1887; G0480; J0360; J0610; J0690; J1644; J1940; J2250; J2270; J3010; J3490; J7620; Q9967; S0119

== ENCOUNTER 2017-09-27 01:52 | Emergency (ER) | payer MEDICAID ==
[2017-09-27 02:33] LABS: ABSOLUTE EOSINOPHILS # (AUTO) 0.4 10^3/uL (0.0-0.6); ABSOLUTE LYMPHOCYTES (AUTO) 3.2 10^3/uL (0.5-4.7); ABSOLUTE MONOCYTES (AUTO) 0.9 10^3/uL (0.1-1.4); ABSOLUTE NEUT (AUTO) 3.3 10^3/uL (1.7-8.2); BASOPHILS % (AUTO) 0.5 % (0-2); EOSINOPHILS % (AUTO) 5.3 % (0-6); HEMATOCRIT 33.2 % (37.9-51.0); LYMPHOCYTES % (AUTO) 40.8 % (13-45); MEAN CORPUSCULAR HEMOGLOBIN 29.7 pg (27.0-33.4); MEAN CORPUSCULAR HGB CONC 33.2 g/dL (32.0-36.0); MEAN CORPUSCULAR VOLUME 90 fl (80-97); MONOCYTES % (AUTO) 11.2 % (3-13); PLATELET COUNT 149 10^3/uL (150-450); RED CELL DISTRIBUTION WIDTH 14.3 % (11.5-14.0); SEGMENTED NEUTROPHILS % (AUTO) 42.2 % (42-78); TOTAL CELLS COUNTED % (AUTO) 100 %; WHITE BLOOD COUNT 7.7 10^3/uL (4.0-10.5)
[2017-09-27 02:39] LABS: ALANINE AMINOTRANSFERASE 30 U/L (21-72); ALBUMIN 3.7 g/dL (3.5-5.0); ALKALINE PHOSPHATASE 77 U/L (38-126); ANION GAP 13 (5-19); ASPARTATE AMINO TRANSFERASE 25 U/L (17-59); BILIRUBIN,DIRECT 0.3 mg/dL (0.0-0.4); BILIRUBIN,TOTAL 0.3 mg/dL (0.2-1.3); BLOOD UREA NITROGEN 30 mg/dL (7-20); CALCIUM 7.1 mg/dL (8.4-10.2); CARBON DIOXIDE 23 mmol/L (22-30); CHLORIDE 106 mmol/L (98-107); GLUCOSE 113 mg/dL (75-110); POTASSIUM 3.6 mmol/L (3.6-5.0); SODIUM 142.4 mmol/L (137-145); TOTAL PROTEIN 6.3 g/dL (6.3-8.2)
--- NOTE | 2017-09-27 02:40 | RADIOLOGY REPORT (SQ) ---
EXAM DESCRIPTION: CHEST SINGLE VIEW CLINICAL HISTORY: cp COMPARISON: 07/12/2018 FINDINGS: Single frontal view of the chest. Left tunneled hemodialysis catheter with tip in the high right atrium. Cardiomegaly. Tortuosity of thoracic aorta. No consolidation, pneumothorax, or pleural effusion. No acute osseous abnormality. Postoperative change in the right chest wall. Upper abdominal soft tissues are unremarkable. IMPRESSION: 1. No acute pulmonary process identified.
[2017-09-27 02:45] LABS: INTERNATIONAL RATION (INR) 1.05; PROTHROMBIN TIME 14.5 SEC (11.4-15.4)
--- NOTE | 2017-09-27 02:56 | ER Document Report ---
ED General - General Chief Complaint: Chest Pain Stated Complaint: CHEST PAIN Time Seen by Provider: 09/27/17 01:58 Mode of Arrival: Medic Information source: Patient, Transfer Record, [facility] Records TRAVEL OUTSIDE OF THE [place] IN LAST 30 DAYS: No - HPI Patient complains to provider of: chest pain-now resolved Onset: Just prior to arrival Onset/Duration: Sudden Quality of pain: Pressure Severity: Moderate Associated symptoms: None Exacerbated by: Denies Relieved by: Denies Similar symptoms previously: Yes Recently seen / treated by doctor: Yes - HD today 3 hours(one hour short) - Related Data Allergies/Adverse Reactions: No Known Allergies Allergy (Verified 09/10/17 14:18) Past Medical History - General Information source: Patient, [facility] Records - Social History Smoking Status: Never Smoker Chew tobacco use (# tins/day): No Frequency of alcohol use: Rare Drug Abuse: None Lives with: Family Family History: CAD, CVA, DM, Hyperlipidemia, Hypertension, Malignancy Patient has suicidal ideation: No Patient has homicidal ideation: No - Past Medical History Cardiac Medical History: Reports: Hx Congestive Heart Failure, Hx DVT, Hx Heart Attack, Hx Hypercholesterolemia, Hx Hypertension, Hx Peripheral Vascular Disease , Hx Pulmonary Embolism Pulmonary Medical History: Reports: Hx Bronchitis, Hx COPD, Hx Pneumonia Denies: Hx Asthma Neurological Medical History: Denies: Hx Migraine, Hx Seizures Endocrine Medical History: Reports: Hx Diabetes Mellitus Type 1, Hx Diabetes Mellitus Type 2 Renal/ Medical History: Reports: Hx End Stage Renal Disease - not on dialysis yet., Hx Renal Insufficiency. 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, Reports Hx Musculoskeletal Trauma Psychiatric Medical History: Infectious Medical History: Reports: Hx HIV Past Surgical History: Reports: Hx Orthopedic Surgery - bilateral amputation, R BKA, L AKA, Hx Vascular Surgery - left arm clot removed, IVC filter, Other - Endoscopy; Vascular surgery. - Immunizations Immunizations up to date: Yes Hx Diphtheria, Pertussis, Tetanus Vaccination: Yes Hx Pneumococcal Vaccination: 07/21/10 Review of Systems - Review of Systems Constitutional: No symptoms reported EENT: No symptoms reported Cardiovascular: See HPI Respiratory: See HPI Gastrointestinal: No symptoms reported Genitourinary: No symptoms reported Male Genitourinary: No symptoms reported Musculoskeletal: No symptoms reported Skin: No symptoms reported Hematologic/Lymphatic: No symptoms reported Neurological/Psychological: No symptoms reported Physical Exam - Vital signs Vitals: Resp Pulse Ox 16 99 09/27/17 02:17 09/27/17 02:17 - Notes Notes: PHYSICAL EXAMINATION: GENERAL: Well-appearing, well-nourished and in no acute distress. Sitting up in bed talking in full sentences HEAD: Atraumatic, normocephalic. EYES: Pupils equal round and reactive to light, extraocular movements intact, sclera anicteric, conjunctiva are normal. ENT: Nares patent, oropharynx clear without exudates. Moist mucous membranes. NECK: Normal range of motion, supple without lymphadenopathy LUNGS: Breath sounds clear to auscultation bilaterally and equal. No wheezes rales or rhonchi. HEART: Regular rate and rhythm with murmur ABDOMEN: Soft, nontender, nondistended abdomen. No guarding, no rebound. No masses appreciated. Musculoskeletal: righ BKA L AKA NEUROLOGICAL: Cranial nerves grossly intact. Normal speech, normal gait. Normal sensory, motor exams PSYCH: Normal mood, normal affect. SKIN: Warm, Dry, normal turgor, no rashes or lesions noted. Course - Re-evaluation Re-evalutation: 09/27/17 03:27 He had no chest pain throughout his stay in the emergency department. Labs- All tests 24 hr 09/27/17 09/27/17 09/27/17 02:20 02:20 02:20 WBC 7.7 RBC 3.70 L Hgb 11.0 L Hct 33.2 L MCV 90 MCH 29.7 MCHC 33.2 RDW 14.3 H Plt Count 149 L Seg Neutrophils % 42.2 Lymphocytes % 40.8 Monocytes % 11.2 Eosinophils % 5.3 Basophils % 0.5 Absolute Neutrophils 3.3 Absolute Lymphocytes 3.2 Absolute Monocytes 0.9 Absolute Eosinophils 0.4 Absolute Basophils 0.0 PT 14.5 INR 1.05 Sodium 142.4 Potassium 3.6 Chloride 106 Carbon Dioxide 23 Anion Gap 13 BUN 30 H Creatinine 4.47 H Est GFR ( Amer) 16 L Est GFR (Non-Af Amer) 13 L Glucose 113 H Calcium 7.1 L Magnesium 1.8 Total Bilirubin 0.3 Direct Bilirubin 0.3 Neonat Total Bilirubin Not Reportable Neonat Direct Bilirubin Not Reportable Neonat Indirect Bili Not Reportable AST 25 ALT 30 Alkaline Phosphatase 77 Troponin I Total Protein 6.3 Albumin 3.7 09/27/17 02:20 WBC RBC Hgb Hct MCV MCH MCHC RDW Plt Count Seg Neutrophils % Lymphocytes % Monocytes % Eosinophils % Basophils % Absolute Neutrophils Absolute Lymphocytes Absolute Monocytes Absolute Eosinophils Absolute Basophils PT INR Sodium Potassium Chloride Carbon Dioxide Anion Gap BUN Creatinine Est GFR ( Amer) Est GFR (Non-Af Amer) Glucose Calcium Magnesium Total Bilirubin Direct Bilirubin Neonat Total Bilirubin Neonat Direct Bilirubin Neonat Indirect Bili AST ALT Alkaline Phosphatase Troponin I 0.031 Total Protein Albumin Chest X-Ray 09/27/17 01:58 IMPRESSION: 1. No acute pulmonary process identified. - Vital Signs Vital signs: Temp Pulse Resp BP Pulse Ox 18 163/91 H 98 09/27/17 02:33 09/27/17 02:33 09/27/17 02:33 - Laboratory Result Diagrams: 09/27/17 02:20 09/27/17 02:20 Laboratory results interpreted by me: 09/27/17 09/27/17 02:20 02:20 RBC 3.70 L Hgb 11.0 L Hct 33.2 L RDW 14.3 H Plt Count 149 L BUN 30 H Creatinine 4.47 H Est GFR ( Amer) 16 L Est GFR (Non-Af Amer) 13 L Glucose 113 H Calcium 7.1 L - Diagnostic Test Radiology reviewed: Image reviewed, Reports reviewed - EKG Interpretation by Mt EKG shows normal: Sinus rhythm - 91 When compared to previous EKG there are: No significant change Discharge - Discharge Clinical Impression: ESRD (end stage renal disease), Chest pain Condition: Stable Disposition: HOME, SELF-CARE Instructions: Chest Pain of Unclear Cause ([facility]) Additional Instructions: Follow up with your physician tomorrow for further care or return to the ED IMMEDIATELY if symptoms worsen or new concerns occur. If you cannot afford to follow up with your primary care physician a list of low cost clinics have been provided at the end of your discharge papers as well. Referrals: KENIA FRANCIS MD [Primary Care Provider] - Follow up as needed
[2017-09-27 03:59] VITALS: BP 144/87
--- NOTE | 2017-09-27 10:15 | EKG REPORT ---
SEVERITY:- ABNORMAL ECG - SINUS RHYTHM VENTRICULAR PREMATURE COMPLEX PROBABLE LEFT ATRIAL ABNORMALITY LEFT AXIS DEVIATION LVH WITH SECONDARY REPOLARIZATION ABNORMALITY BORDERLINE PROLONGED QT INTERVAL : Confirmed by: Beulah Storm 27-Sep-2017 10:14:56
== END 2017-09-27 03:59 | disposition home or self-care (01) ==
LOC: ER 01:52
DX: R07.9 Chest pain, unspecified (principal); I12.0 Hypertensive chronic kidney disease with stage 5 chronic kidney disease or end stage renal disease; E11.22 Type 2 diabetes mellitus with diabetic chronic kidney disease; N18.6 End stage renal disease; I25.2 Old myocardial infarction; Z86.711 Personal history of pulmonary embolism; Z86.718 Personal history of other venous thrombosis and embolism; Z82.49 Family history of ischemic heart disease and other diseases of the circulatory system
CPT/HCPCS: 36415; 71045; 80053; 83735; 84484; 85025; 85610; 93005; 93010; 99285

== ENCOUNTER 2017-10-27 13:36 | Emergency (ER) | payer MEDICAID ==
[2017-10-27] MEDS ORDERED: ASPIRIN 81 MG TABLET, CHEWABLE PO ONE (13:40)
--- NOTE | 2017-10-27 14:13 | RADIOLOGY REPORT (SQ) ---
EXAM DESCRIPTION: CHEST SINGLE VIEW COMPLETED DATE/TIME: 10/27/2017 1:57 pm REASON FOR STUDY: cp COMPARISON: CT chest 09/02/2017 Chest films 09/12/2017, 09/27/2017 EXAM PARAMETERS: NUMBER OF VIEWS: One view. TECHNIQUE: Single frontal radiographic view of the chest acquired. RADIATION DOSE: NA LIMITATIONS: None. FINDINGS: LUNGS AND PLEURA: Lungs are grossly clear. No pleural effusion, pneumothorax or acute inf iltrates. Upper lobes are hyperlucent from obstructive disease. MEDIASTINUM AND HILAR STRUCTURES: No masses. Contour normal. HEART AND VASCULAR STRUCTURES: Heart normal in size. Normal vasculature. BONES: No acute findings. HARDWARE: Left-sided central venous dialysis catheter tip in the superior vena cava OTHER: No other significant finding. IMPRESSION: Obstructive lung disease. No acute findings. TECHNICAL DOCUMENTATION: JOB ID: [id number] [employer]- All Rights Reserved Reading location - IP/workstation name: [facility]
[2017-10-27 14:24] LABS: ABSOLUTE EOSINOPHILS # (AUTO) 0.2 10^3/uL (0.0-0.6); ABSOLUTE LYMPHOCYTES (AUTO) 1.9 10^3/uL (0.5-4.7); ABSOLUTE MONOCYTES (AUTO) 0.4 10^3/uL (0.1-1.4); ABSOLUTE NEUT (AUTO) 7.5 10^3/uL (1.7-8.2); BASOPHILS % (AUTO) 0.4 % (0-2); EOSINOPHILS % (AUTO) 2.2 % (0-6); HEMATOCRIT 37.9 % (37.9-51.0); HEMOGLOBIN 12.7 g/dL (13.5-17.0); LYMPHOCYTES % (AUTO) 18.4 % (13-45); MEAN CORPUSCULAR HEMOGLOBIN 29.9 pg (27.0-33.4); MEAN CORPUSCULAR HGB CONC 33.5 g/dL (32.0-36.0); MEAN CORPUSCULAR VOLUME 89 fl (80-97); MONOCYTES % (AUTO) 4.3 % (3-13); PLATELET COUNT 178 10^3/uL (150-450); RED BLOOD COUNT 4.24 10^6/uL (4.35-5.55); RED CELL DISTRIBUTION WIDTH 15.5 % (11.5-14.0); SEGMENTED NEUTROPHILS % (AUTO) 74.7 % (42-78); TOTAL CELLS COUNTED % (AUTO) 100 %; WHITE BLOOD COUNT 10.1 10^3/uL (4.0-10.5)
[2017-10-27 14:42] LABS: ALANINE AMINOTRANSFERASE 17 U/L (21-72); ALBUMIN 3.8 g/dL (3.5-5.0); ALKALINE PHOSPHATASE 80 U/L (38-126); ANION GAP 13 (5-19); ASPARTATE AMINO TRANSFERASE 21 U/L (17-59); BILIRUBIN,DIRECT 0.3 mg/dL (0.0-0.4); BILIRUBIN,TOTAL 0.6 mg/dL (0.2-1.3); BLOOD UREA NITROGEN 39 mg/dL (7-20); CALCIUM 8.4 mg/dL (8.4-10.2); CARBON DIOXIDE 23 mmol/L (22-30); CHLORIDE 103 mmol/L (98-107); CREATINE KINASE 105 U/L (55-170); GLUCOSE 98 mg/dL (75-110); POTASSIUM 3.7 mmol/L (3.6-5.0); SODIUM 138.7 mmol/L (137-145); TOTAL PROTEIN 6.4 g/dL (6.3-8.2)
[2017-10-27 14:57] LABS: CREATINE KINASE MB 2.46 ng/mL (<4.55)
[2017-10-27 15:01] LABS: TROPONIN I 0.07 ng/mL
[2017-10-27 18:14] VITALS: BP 153/93
--- NOTE | 2017-10-27 18:37 | ER Document Report ---
ED General - General Chief Complaint: Chest Pain Stated Complaint: CHEST PAIN Time Seen by Provider: 10/27/17 14:15 TRAVEL OUTSIDE OF THE [place] IN LAST 30 DAYS: No - HPI Patient complains to provider of: Chest pain left leg pain Notes: Patient has a history of diabetes and is on dialysis states he was having chest pain earlier this morning however analysis chest pain worsened therefore his dialysis was stopped after an hour came in for evaluation in the ER. Patient currently chest pain-free denies any nausea vomiting fevers chills denies any radiation of his pain. Patient also complains of sharp shooting pain at the end of his stump. Patient states surgery was performed 2006. Patient resting comfortably upon my evaluation. - Related Data Allergies/Adverse Reactions: No Known Allergies Allergy (Verified 09/10/17 14:18) Past Medical History - Social History Smoking Status: Unknown if Ever Smoked Family History: CAD, CVA, DM, Hyperlipidemia, Hypertension, Malignancy Patient has suicidal ideation: No Patient has homicidal ideation: No - Past Medical History Cardiac Medical History: Reports: Hx Congestive Heart Failure, Hx DVT, Hx Heart Attack, Hx Hypercholesterolemia, Hx Hypertension, Hx Peripheral Vascular Disease , Hx Pulmonary Embolism Pulmonary Medical History: Reports: Hx Bronchitis, Hx COPD, Hx Pneumonia Denies: Hx Asthma Neurological Medical History: Denies: Hx Migraine, Hx Seizures Endocrine Medical History: Reports: Hx Diabetes Mellitus Type 1, Hx Diabetes Mellitus Type 2 Renal/ Medical History: Reports: Hx End Stage Renal Disease, Hx Renal Insufficiency. 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, Reports Hx Musculoskeletal Trauma Psychiatric Medical History: Infectious Medical History: Reports: Hx HIV Past Surgical History: Reports: Hx Orthopedic Surgery - bilateral amputation, R BKA, L AKA, Hx Vascular Surgery - left arm clot removed, IVC filter, Other - Endoscopy; Vascular surgery. - Immunizations Immunizations up to date: Yes Hx Diphtheria, Pertussis, Tetanus Vaccination: Yes Hx Pneumococcal Vaccination: 07/21/10 Review of Systems - Review of Systems Constitutional: No symptoms reported EENT: No symptoms reported Cardiovascular: Chest pain Respiratory: No symptoms reported Gastrointestinal: No symptoms reported Genitourinary: No symptoms reported Male Genitourinary: No symptoms reported Musculoskeletal: Other - Leg pain Skin: No symptoms reported Hematologic/Lymphatic: No symptoms reported Neurological/Psychological: No symptoms reported -: Yes All other systems reviewed and negative Physical Exam - Vital signs Vitals: Pulse Ox 98 10/27/17 13:40 Interpretation: Normal - General General appearance: Appears well, Alert - HEENT Head: Normocephalic, Atraumatic Eyes: Normal Pupils: PERRL - Respiratory Respiratory status: No respiratory distress Chest status: Nontender Breath sounds: Normal Chest palpation: Normal - Cardiovascular Rhythm: Regular Heart sounds: Normal auscultation Murmur: No - Abdominal Inspection: Normal Distension: No distension Bowel sounds: Normal Tenderness: Nontender Organomegaly: No organomegaly - Back Back: Normal, Nontender - Extremities General upper extremity: Normal inspection, Nontender, Normal color General lower extremity: Normal inspection, Nontender, Normal color, Other - Bilateral AKA's - Neurological Neuro grossly intact: Yes Cognition: Normal Orientation: AAOx4 Star Coma Scale Eye Opening: Spontaneous Star Coma Scale Verbal: Oriented [place] Coma Scale Motor: Obeys Commands Star Coma Scale Total: 15 Speech: Normal Motor strength normal: LUE, RUE, LLE, RLE Sensory: Normal - Psychological Associated symptoms: Normal affect, Normal mood - Skin Skin Temperature: Warm Skin Moisture: Dry Skin Color: Normal Course - Re-evaluation Re-evalutation: 10/27/17 23:09 Patient was evaluated here EKG did not show any signs of significant pathology. Troponins 2 were negative. Patient remained chest pain-free. Did discuss patient's neurologist resident with his dialysis team Dr. Lowe at this time no signs of fluid overload sometimes recommend the patient can continue with his normal dialysis schedule. The patient has atypical chest pain as the patient's chest pain is not suggestive of pulmonary embolus, cardiac ischemia, aortic dissection, or other serious etiology. Given the extremely low risk of these diagnoses further testing and evaluation for these possibilities does not appear to be indicated at this time. The patient has been instructed to return if the symptoms worsen or change in any way. - Vital Signs Vital signs: Temp Pulse Resp BP Pulse Ox 17 153/93 H 97 10/27/17 18:01 10/27/17 18:01 10/27/17 18:01 - Laboratory Result Diagrams: 10/27/17 13:55 10/27/17 13:55 Laboratory results interpreted by me: 10/27/17 10/27/17 13:55 13:55 RBC 4.24 L Hgb 12.7 L RDW 15.5 H BUN 39 H Creatinine 5.81 H Est GFR ( Amer) 12 L Est GFR (Non-Af Amer) 10 L ALT 17 L Discharge - Discharge Clinical Impression: ESRD needing dialysis Chest pain, unspecified Qualifiers: Chest pain type: unspecified Qualified Code(s): R07.9 - Chest pain, unspecified Condition: Good Disposition: HOME, SELF-CARE Instructions: Chest Pain of Unclear Cause ([facility]), Neuropathy ([facility]) Additional Instructions: Your evaluation does not show any signs of cardiac ischemia or heart attack. I believe your leg pain is due to nerve pain I would highly recurrent follow-up with your primary care physician for the management of this. I have discussed your dialysis plan with Dr. Lowe. Please make sure to follow-up with your dialysis on her next session. Did not need any dialysis any earlier than that. Return to the ER for any concerns. Referrals: TRISTON FRANCOIS MD [Primary Care Provider] - Follow up as needed
--- NOTE | 2017-10-28 07:31 | EKG REPORT ---
SEVERITY:- ABNORMAL ECG - SINUS RHYTHM LEFT VENTRICULAR HYPERTROPHY BORDERLINE PROLONGED QT INTERVAL : Confirmed by: Marco Young MD 28-Oct-2017 07:31:08
--- NOTE | 2017-10-28 07:32 | EKG REPORT ---
SEVERITY:- ABNORMAL ECG - SINUS TACHYCARDIA LEFT AXIS DEVIATION -LAFB LVH WITH SECONDARY REPOLARIZATION ABNORMALITY BORDERLINE PROLONGED QT INTERVAL : Confirmed by: Marco Young MD 28-Oct-2017 07:32:08
== END 2017-10-27 19:11 | disposition home or self-care (01) ==
LOC: ER 13:36
DX: R07.89 Other chest pain (principal); E11.22 Type 2 diabetes mellitus with diabetic chronic kidney disease; I12.0 Hypertensive chronic kidney disease with stage 5 chronic kidney disease or end stage renal disease; N18.6 End stage renal disease; Z99.2 Dependence on renal dialysis; M79.605 Pain in left leg; Z89.511 Acquired absence of right leg below knee; Z89.612 Acquired absence of left leg above knee
CPT/HCPCS: 36415; 71045; 80053; 82550; 82553; 83690; 84484; 85025; 93005; 93010; 99285

== ENCOUNTER 2017-12-22 04:37 | Emergency (ER) | payer MEDICAID ==
--- NOTE | 2017-12-22 04:53 | ER Document Report ---
ED General - General TRAVEL OUTSIDE OF THE [place] IN LAST 30 DAYS: No <GIN KATZ - Last Filed: 12/22/17 06:56> <ELAINA JIMÉNEZ - Last Filed: 12/22/17 09:43> - General Stated Complaint: CHEST TIGHTNESS Time Seen by Provider: 12/22/17 04:41 - HPI Notes: Patient is a 62-year-old male with a history of hypertension, HIV, COPD, congestive heart failure, chronic kidney disease (on dialysis every Friday and Friday), below-knee amputations bilaterally who presents to the ED complaining of a dry nonproductive cough 1 day accompanied by intermittent shortness of breath and a sharp sternal chest pain on the right side. He had 3 nitro's sl with EMS which did improve his symptoms. Patient states that the chest pain has since resolved, but he does continue to have a cough. His last complete dialysis session was Friday. He did not go this past Friday and he is scheduled for this morning. He is otherwise eating and drinking without difficulties. Patient states that he still is producing urine and he is having normal bowel movements. Patient states he also has felt a little feverish at times, but not right now. He has been on dialysis for about 3 months. Denies any drug allergies. Denies any headache, fever, head injury, neck pain, URI, sore throat, chest pain, palpitations, syncope, wheeze, abdominal pain, nausea/ vomiting/diarrhea, dysuria, hematuria, or rash. (GIN KATZ) - Related Data Allergies/Adverse Reactions: No Known Allergies Allergy (Verified 09/10/17 14:18) Past Medical History - Social History Smoking Status: Former Smoker Family History: CAD, CVA, DM, Hyperlipidemia, Hypertension, Malignancy - Past Medical History Cardiac Medical History: Reports: Hx Congestive Heart Failure, Hx DVT, Hx Heart Attack, Hx Hypercholesterolemia, Hx Hypertension, Hx Peripheral Vascular Disease , Hx Pulmonary Embolism Pulmonary Medical History: Reports: Hx Bronchitis, Hx COPD, Hx Pneumonia Denies: Hx Asthma Neurological Medical History: Denies: Hx Migraine, Hx Seizures Endocrine Medical History: Reports: Hx Diabetes Mellitus Type 1, Hx Diabetes Mellitus Type 2 Renal/ Medical History: Reports: Hx End Stage Renal Disease, Hx Renal Insufficiency. 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, Reports Hx Musculoskeletal Trauma Psychiatric Medical History: Infectious Medical History: Reports: Hx HIV Past Surgical History: Reports: Hx Orthopedic Surgery - bilateral amputation, R BKA, L AKA, Hx Vascular Surgery - left arm clot removed, IVC filter, Other - Endoscopy; Vascular surgery. - Immunizations Immunizations up to date: Yes Hx Diphtheria, Pertussis, Tetanus Vaccination: Yes Hx Pneumococcal Vaccination: 07/21/10 <GIN KATZ - Last Filed: 12/22/17 06:56> Review of Systems - Review of Systems -: Yes All other systems reviewed and negative <GIN KATZ - Last Filed: 12/22/17 06:56> Physical Exam <GNI KATZ - Last Filed: 12/22/17 06:56> <ELAINA JIMÉNEZ - Last Filed: 12/22/17 09:43> - Vital signs Vitals: Resp BP 18 183/99 H 12/22/17 04:39 12/22/17 04:39 - Notes Notes: PHYSICAL EXAMINATION: GENERAL: Well-appearing, well-nourished and in no acute distress. A&ox4. Answers questions appropriately. HEAD: Atraumatic, normocephalic. EYES: Pupils equal round and reactive to light, extraocular movements intact, sclera anicteric, conjunctiva are normal. ENT: Nares patent and without discharge. oropharynx clear without exudates. No tonsilar hypertrophy or erythema. Moist mucous membranes. NECK: Normal range of motion, supple without lymphadenopathy Chest: + mild tenderness to the rt sternal border, somewhat correlates with pain described per patient. LUNGS: Dec breath sounds b/ll. No wheezes rales or rhonchi. HEART: Regular rate and rhythm without murmurs, rubs, gallops. ABDOMEN: Soft, nontender, nondistended abdomen. No guarding, no rebound. No masses appreciated. Normal bowel sounds present. No CVA tenderness bilaterally. Musculoskeletal: BKA b/l. Extremities: No cyanosis, clubbing, or edema b/l. Peripheral pulses 2+. Capillary refill less than 3 seconds. NEUROLOGICAL: Cranial nerves grossly intact. Normal speech. PSYCH: Normal mood, normal affect. SKIN: Warm, Dry, normal turgor, no rashes or lesions noted. (GIN KATZ) Course - Laboratory Result Diagrams: 12/22/17 05:05 12/22/17 05:05 <GIN KATZ - Last Filed: 12/22/17 06:56> - Laboratory Result Diagrams: 12/22/17 05:05 12/22/17 05:05 <ELAINA JIMÉNEZ - Last Filed: 12/22/17 09:43> - Re-evaluation Re-evalutation: 12/22/17 07:00 CBC unremarkable for any acute pathology. CMP shows chronic kidney disease. Cardiac enzyme 0.121 which is higher than his typical baseline since May of this last year. His BNP was 61,600 which is significantly higher than previous. Again, patient has not been to dialysis for 5 days due to missing his last appointment. Patient did receive nitro 3 sl prior to arrival which did improve his pain. Patient currently does not have any chest pain at this time. Chest x-ray was unremarkable aside from cardiomegaly. Reviewed with Dr. Nunez. We will need another Trop check 3 hours from initial to further assess if this is leaning towards a cardiac or renal etiology. If the Trop is elevating, he will need to be transferred; otherwise, he we will need to do a phone consult with Dr. Lowe, his building maintenance supervisor, as he will need dialysis +/- admission. Vitals currently acceptable. Pt care transferred to Elaina HOWARD (GIN KATZ) 12/22/17 09:40 Second troponin III and a half hours after the first is essentially the same at 0.126. I do believe that his elevated troponins are due to his congestive heart failure as his BNP is also higher than it has ever been. He is not fluid overloaded on chest x-ray and only has some mild wheezing on lung exam. He has not had any further chest pain. EKG is essentially the same without any significant changes as previous EKGs. Patient in no distress, not even on oxygen with normal vital signs except for some hypertension of 160/100. Patient is due for dialysis in 1 hour. I did speak to Dr. Lowe, patient's building maintenance supervisor who states that there is no reason that patient needs to be inpatient for this dialysis as long as we do not suspect cardiac ischemia. Patient to follow-up with labor gang supervisor to schedule a stress test outpatient. ( ELAINA JIMÉNEZ) - Vital Signs Vital signs: Temp Pulse Resp BP Pulse Ox 98.5 F 20 182/97 H 97 12/22/17 04:59 12/22/17 06:01 12/22/17 06:01 12/22/17 06:01 - Laboratory Laboratory results interpreted by me: 12/22/17 12/22/17 12/22/17 05:05 05:05 05:05 RBC 3.75 L Hgb 11.6 L Hct 34.0 L RDW 15.4 H VBG pCO2 VBG HCO3 Chloride 111 H Carbon Dioxide 17 L BUN 61 H Creatinine 8.15 H Est GFR ( Amer) 8 L Est GFR (Non-Af Amer) 7 L Calcium 7.5 L NT-Pro-B Natriuret Pep 08650 H 12/22/17 05:05 RBC Hgb Hct RDW VBG pCO2 28.3 L VBG HCO3 17.0 L Chloride Carbon Dioxide BUN Creatinine Est GFR ( Amer) Est GFR (Non-Af Amer) Calcium NT-Pro-B Natriuret Pep Discharge <GIN KATZ - Last Filed: 12/22/17 06:56> <ELAINA JIMÉNEZ - Last Filed: 12/22/17 09:43> - Discharge Clinical Impression: Elevated troponin Chronic renal failure Qualifiers: Chronic kidney disease stage: unspecified stage Qualified Code(s): N18.9 - Chronic kidney disease, unspecified CHF (congestive heart failure) Qualifiers: Heart failure type: unspecified Heart failure chronicity: unspecified Qualified Code(s): I50.9 - Heart failure, unspecified Condition: Stable Disposition: [facility] Additional Instructions: Return immediately for any new or worsening symptoms. Follow up with primary care provider, call tomorrow to make followup appointment. Please schedule a stress test outpatient. Referrals: MATHIEU MACIAS FNP [NO LOCAL MD] - Follow up as needed MOE PARSONS MD [ACTIVE STAFF] - Follow up as needed
[2017-12-22 05:17] LABS: VENOUS BLOOD BASE EXCESS -6.5 mmol/L; VENOUS BLOOD PCO2 28.3 mmHg (35-63); VENOUS BLOOD PH 7.4 (7.30-7.42)
[2017-12-22 05:18] LABS: ABSOLUTE BASOPHILS # (AUTO) 0.1 10^3/uL (0.0-0.2); ABSOLUTE EOSINOPHILS # (AUTO) 0.1 10^3/uL (0.0-0.6); ABSOLUTE LYMPHOCYTES (AUTO) 1.4 10^3/uL (0.5-4.7); ABSOLUTE NEUT (AUTO) 5.2 10^3/uL (1.7-8.2); BASOPHILS % (AUTO) 1.2 % (0-2); EOSINOPHILS % (AUTO) 1.8 % (0-6); HEMOGLOBIN 11.6 g/dL (13.5-17.0); LYMPHOCYTES % (AUTO) 18.2 % (13-45); MEAN CORPUSCULAR HEMOGLOBIN 30.9 pg (27.0-33.4); MEAN CORPUSCULAR HGB CONC 34.1 g/dL (32.0-36.0); MEAN CORPUSCULAR VOLUME 91 fl (80-97); MONOCYTES % (AUTO) 12.2 % (3-13); PLATELET COUNT 156 10^3/uL (150-450); RED BLOOD COUNT 3.75 10^6/uL (4.35-5.55); RED CELL DISTRIBUTION WIDTH 15.4 % (11.5-14.0); SEGMENTED NEUTROPHILS % (AUTO) 66.6 % (42-78); TOTAL CELLS COUNTED % (AUTO) 100 %; WHITE BLOOD COUNT 7.8 10^3/uL (4.0-10.5)
[2017-12-22 05:23] LABS: INTERNATIONAL RATION (INR) 1.12
[2017-12-22 05:24] LABS: PARTIAL THROMBOPLASTIN TIME 24.7 SEC (23.5-35.8)
[2017-12-22 05:37] LABS: ALANINE AMINOTRANSFERASE 29 U/L (21-72); ALBUMIN 3.6 g/dL (3.5-5.0); ALKALINE PHOSPHATASE 68 U/L (38-126); ANION GAP 16 (5-19); ASPARTATE AMINO TRANSFERASE 28 U/L (17-59); BILIRUBIN,DIRECT 0.3 mg/dL (0.0-0.4); BILIRUBIN,TOTAL 0.3 mg/dL (0.2-1.3); BLOOD UREA NITROGEN 61 mg/dL (7-20); CALCIUM 7.5 mg/dL (8.4-10.2); CARBON DIOXIDE 17 mmol/L (22-30); CHLORIDE 111 mmol/L (98-107); GLUCOSE 96 mg/dL (75-110); POTASSIUM 3.8 mmol/L (3.6-5.0); SODIUM 143.6 mmol/L (137-145); TOTAL PROTEIN 6.6 g/dL (6.3-8.2)
--- NOTE | 2017-12-22 05:47 | RADIOLOGY REPORT (SQ) ---
EXAM DESCRIPTION: Single view of the chest CLINICAL HISTORY: cough, sob COMPARISON: 10/27/2017 FINDINGS: Single frontal view of the chest. Left IJ tunneled dialysis catheter with tip in the high right atrium. Cardiomegaly. Tortuosity of the thoracic aorta. No consolidation, pneumothorax, or pleural effusion. No displaced rib fractures identified. Leads overlie the chest. Upper abdominal soft tissues are unremarkable. IMPRESSION: 1. No acute pulmonary process identified. Cardiomegaly.
[2017-12-22 05:49] LABS: TROPONIN I 0.121 ng/mL
--- NOTE | 2017-12-22 07:23 | EKG REPORT ---
SEVERITY:- ABNORMAL ECG - SINUS RHYTHM VENTRICULAR PREMATURE COMPLEX PROBABLE LEFT ATRIAL ABNORMALITY LEFT AXIS DEVIATION LVH WITH SECONDARY REPOLARIZATION ABNORMALITY PROLONGED QT INTERVAL : Confirmed by: Annita Coker MD 22-Dec-2017 07:22:25
[2017-12-22] MEDS ORDERED: OXYCODONE HCL IR 5 MG TABLET PO ONE (09:31)
[2017-12-22] MEDS ORDERED: ALBUTEROL SULFATE 0.083% NEB 2.5 MG/3 ML AMPUL NEB ONE (09:31)
[2017-12-22 10:13] VITALS: BP 170/102
--- NOTE | 2017-12-22 19:58 | EKG REPORT ---
SEVERITY:- ABNORMAL ECG - SINUS RHYTHM PROBABLE LEFT ATRIAL ABNORMALITY LEFT AXIS DEVIATION LVH WITH SECONDARY REPOLARIZATION ABNORMALITY PROLONGED QT INTERVAL : Confirmed by: Annita Coker MD 22-Dec-2017 19:57:50
== END 2017-12-22 10:15 | disposition home health service (06) ==
LOC: ER 04:37
DX: I50.9 Heart failure, unspecified (principal); R79.89 Other specified abnormal findings of blood chemistry; I12.9 Hypertensive chronic kidney disease with stage 1 through stage 4 chronic kidney disease, or unspecified chronic kidney disease; N18.9 Chronic kidney disease, unspecified; R07.9 Chest pain, unspecified; R05 Cough; B20 Human immunodeficiency virus [HIV] disease; R06.02 Shortness of breath; R50.9 Fever, unspecified; J44.9 Chronic obstructive pulmonary disease, unspecified; Z87.891 Personal history of nicotine dependence; I25.2 Old myocardial infarction; I10 Essential (primary) hypertension; E11.9 Type 2 diabetes mellitus without complications
CPT/HCPCS: 93005; 94640; 99284; 36415; 85025; 85610; 85730; 80053; 84484; 82803; 83880; 71045; 93010; J3490

== ENCOUNTER 2017-12-31 07:59 | Inpatient (IN) | payer MEDICAID ==
[2017-12-31] MEDS ORDERED: KETAMINE HCL INJ 500 MG/10 ML VIAL ONE ×2 (08:05→09:22)
[2017-12-31] MEDS ORDERED: METOCLOPRAMIDE HCL INJ/PF 10 MG/2 ML SDV IV ONE ×2 (08:10→09:26)
[2017-12-31] MEDS ORDERED: METOCLOPRAMIDE HCL INJ/PF 10 MG/2 ML SDV ONE (08:10)
[2017-12-31] MEDS ORDERED: SUCCINYLCHOLINE CHLORIDE INJ 200 MG/10 ML VIAL IV ONE ×2 (08:11→09:26)
[2017-12-31] MEDS ORDERED: PROPOFOL 1,000 MG/100 ML INFUS..BTL IV ONE (08:12)
[2017-12-31] MEDS ORDERED: FENTANYL CITRATE INJ/PF 100 MCG/2 ML AMPUL ONE ×3 (08:13→09:09)
[2017-12-31 08:43] LABS: INTERNATIONAL RATION (INR) 1.07
[2017-12-31 08:44] LABS: PARTIAL THROMBOPLASTIN TIME 31.5 SEC (23.5-35.8)
[2017-12-31 08:45] LABS: HEMATOCRIT 39.8 % (37.9-51.0); MEAN CORPUSCULAR HEMOGLOBIN 30.4 pg (27.0-33.4); MEAN CORPUSCULAR HGB CONC 32.5 g/dL (32.0-36.0); MEAN CORPUSCULAR VOLUME 93 fl (80-97); PLATELET COUNT 196 10^3/uL (150-450); PROTHROMBIN TIME 14.4 SEC (11.4-15.4); RED BLOOD COUNT 4.26 10^6/uL (4.35-5.55); RED CELL DISTRIBUTION WIDTH 15.4 % (11.5-14.0); WHITE BLOOD COUNT 8.9 10^3/uL (4.0-10.5)
[2017-12-31 08:51] LABS: ALANINE AMINOTRANSFERASE 220 U/L (21-72); ALBUMIN 3.8 g/dL (3.5-5.0); ALKALINE PHOSPHATASE 112 U/L (38-126); ANION GAP 11 (5-19); ASPARTATE AMINO TRANSFERASE 268 U/L (17-59); BILIRUBIN,DIRECT 0.2 mg/dL (0.0-0.4); BILIRUBIN,TOTAL 0.2 mg/dL (0.2-1.3); BLOOD UREA NITROGEN 56 mg/dL (7-20); CALCIUM 8.6 mg/dL (8.4-10.2); CARBON DIOXIDE 23 mmol/L (22-30); CHLORIDE 111 mmol/L (98-107); CREATINE KINASE 56 U/L (55-170); GLUCOSE 226 mg/dL (75-110); POTASSIUM 5.6 mmol/L (3.6-5.0); SODIUM 145.2 mmol/L (137-145)
[2017-12-31 08:52] LABS: ACETAMINOPHEN < 10 ug/mL (10-30); ALCOHOL < 10 mg/dL (NONE DETECTED)
--- NOTE | 2017-12-31 08:52 | RADIOLOGY REPORT (SQ) ---
EXAM DESCRIPTION: CHEST SINGLE VIEW COMPLETED DATE/TIME: 12/31/2017 8:38 am REASON FOR STUDY: Postintubation COMPARISON: CT CHEST 09/02/2017 CHEST FILMS 09/05/2017, 10/27/2017, 12/22/2017 EXAM PARAMETERS: NUMBER OF VIEWS: One view. TECHNIQUE: Single frontal radiographic view of the chest acquired. RADIATION DOSE: NA LIMITATIONS: None. FINDINGS: LUNGS AND PLEURA: Mild pulmonary vascular congestion. Few Bogdan lines at both lung bases indicating mild interstitial edema. No pleural effusion. No pneumothorax. No dense consolidation worrisome for pneumonia. MEDIASTINUM AND HILAR STRUCTURES: No masses. Contour normal. HEART AND VASCULAR STRUCTURES: Borderline cardiomegaly BONES: No acute findings. HARDWARE: Endotracheal tube tip 5 cm above the carmen. Nasogastric tube tip and side port in the sto mach. Left-sided central venous dialysis catheter tip in the superior vena cava/right atrium. OTHER: Old surgical clips right infraclavicular region from axillary-femoral vascular graft IMPRESSION: Pulmonary vascular congestion and mild interstitial pulmonary edema TECHNICAL DOCUMENTATION: JOB ID: [id number] [employer]- All Rights Reserved Reading location - IP/workstation name: [email or web address]
--- NOTE | 2017-12-31 08:57 | ER Document Report ---
ED General - General Stated Complaint: DIFFICULTY BREATHING Time Seen by Provider: 12/31/17 08:16 Mode of Arrival: Medic Information source: Emergency Med Personnel, OM Records Cannot obtain history due to: Altered mental status Notes: 62-year-old male with congestive heart failure, coronary artery disease, HIV, hypertension, hyperlipidemia, chronic kidney disease, COPD, type 1 diabetes presents via EMS from home in respiratory distress on BiPAP. Patient unable to provide history. EMS reports that the patient states that his shortness of breath started 1 day prior to arrival. Upon their arrival patient had a blood pressure reading of 300 systolic. Patient was reported to be hypoxic, tachypneic. Upon his arrival into the emergency department he is altered, diaphoretic and in severe respiratory distress. TRAVEL OUTSIDE OF THE [place] IN LAST 30 DAYS: No - HPI Onset: Just prior to arrival Onset/Duration: Sudden - Related Data Allergies/Adverse Reactions: No Known Allergies Allergy (Verified 09/10/17 14:18) Past Medical History - General Information source: Emergency Med Personnel, [facility] Records Cannot obtain history due to: Intubated, Unstable vital signs, Altered mental status - Social History Smoking Status: Unknown if Ever Smoked Family History: CAD, CVA, DM, Hyperlipidemia, Hypertension, Malignancy - Past Medical History Cardiac Medical History: Reports: Hx Congestive Heart Failure, Hx DVT, Hx Heart Attack, Hx Hypercholesterolemia, Hx Hypertension, Hx Peripheral Vascular Disease , Hx Pulmonary Embolism Pulmonary Medical History: Reports: Hx Bronchitis, Hx COPD, Hx Pneumonia Denies: Hx Asthma Neurological Medical History: Denies: Hx Migraine, Hx Seizures Endocrine Medical History: Reports: Hx Diabetes Mellitus Type 1, Hx Diabetes Mellitus Type 2 Renal/ Medical History: Reports: Hx End Stage Renal Disease, Hx Renal Insufficiency. 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, Reports Hx Musculoskeletal Trauma Psychiatric Medical History: Infectious Medical History: Reports: Hx HIV Past Surgical History: Reports: Hx Orthopedic Surgery - bilateral amputation, R BKA, L AKA, Hx Vascular Surgery - left arm clot removed, IVC filter, Other - Endoscopy; Vascular surgery. - Immunizations Immunizations up to date: Yes Hx Diphtheria, Pertussis, Tetanus Vaccination: Yes Hx Pneumococcal Vaccination: 07/21/10 Review of Systems - Review of Systems -: Yes ROS unobtainable due to patient's medical condition Physical Exam - Vital signs Vitals: Resp 27 H 12/31/17 08:02 - Notes Notes: PHYSICAL EXAMINATION: GENERAL: Ill-appearing, diaphoretic, and severe distress HEAD: Atraumatic, normocephalic. EYES: Pupils equal round and reactive to light, extraocular movements intact, sclera anicteric, conjunctiva are normal. ENT: Nares patent, oropharynx clear without exudates. Moist mucous membranes. NECK: Normal range of motion, supple without lymphadenopathy LUNGS: Diminished breath sounds in all lung fisher HEART: Tachycardic, regular rhythm without murmurs ABDOMEN: Soft, nontender, nondistended abdomen. No guarding, no rebound. No masses appreciated. Musculoskeletal: Bilateral amputee AKA NEUROLOGICAL: GCS 8 PSYCH: Altered SKIN: Diaphoretic Course - Re-evaluation Re-evalutation: Laboratory 12/31/17 12/31/17 12/31/17 08:08 08:08 08:08 WBC 8.9 RBC 4.26 L Hgb 13.0 L Hct 39.8 MCV 93 MCH 30.4 MCHC 32.5 RDW 15.4 H Plt Count 196 Total Counted 100 Seg Neutrophils % Not Reportable Seg Neuts % (Manual) 25 L Lymphocytes % Not Reportable Lymphocytes % (Manual) 48 H Atypical Lymphs % 19 Monocytes % Not Reportable Monocytes % (Manual) 7 Eosinophils % Not Reportable Eosinophils % (Manual) 1 Basophils % Not Reportable Basophils % (Manual) 0 Absolute Neutrophils Not Reportable Abs Neuts (Manual) 2.2 Absolute Lymphocytes Not Reportable Abs Lymphs (Manual) 6.0 H Absolute Monocytes Not Reportable Abs Monocytes (Manual) 0.6 Absolute Eosinophils Not Reportable Absolute Eos (Manual) 0.1 Absolute Basophils Not Reportable Abs Basophils (Manual) 0.0 Toxic Granulation 1+ Large Platelets PRESENT Platelet Comment ADEQUATE Anisocytosis SLIGHT Tear Drop Cells SLIGHT Ovalocytes SLIGHT Angélica Cells SLIGHT PT INR APTT Carbonic Acid HCO3/H2CO3 Ratio ABG pH ABG pCO2 ABG pO2 ABG HCO3 ABG Total CO2 ABG O2 Saturation ABG Base Excess FiO2 Sodium 145.2 H Potassium 5.6 H Chloride 111 H Carbon Dioxide 23 Anion Gap 11 BUN 56 H Creatinine 6.49 H Est GFR ( Amer) 11 L Est GFR (Non-Af Amer) 9 L Glucose 226 H POC Glucose Lactic Acid Calcium 8.6 Total Bilirubin 0.2 Direct Bilirubin 0.2 Neonat Total Bilirubin Not Reportable Neonat Direct Bilirubin Not Reportable Neonat Indirect Bili Not Reportable AST 268 H ALT 220 H Alkaline Phosphatase 112 Creatine Kinase 56 CK-MB (CK-2) 1.21 Troponin I 0.060 NT-Pro-B Natriuret Pep 35620 H Total Protein 7.0 Albumin 3.8 Urine Color Urine Appearance Urine pH Ur Specific Gilbert Urine Protein Urine Glucose (UA) Urine Ketones Urine Blood Urine Nitrite Urine Bilirubin Urine Urobilinogen Ur Leukocyte Esterase Urine WBC (Auto) Urine RBC (Auto) Urine Mucus (Auto) Urine Ascorbic Acid Urine Opiates Screen Urine Methadone Screen Acetaminophen < 10 L Ur Barbiturates Screen Ur Phencyclidine Scrn Ur Amphetamines Screen U Benzodiazepines Scrn Urine Cocaine Screen U Marijuana (THC) Screen Serum Alcohol < 10 Slides for Path Review PATHOLOGIST REVIEWED 12/31/17 12/31/17 12/31/17 08:08 08:08 10:25 WBC RBC Hgb Hct MCV MCH MCHC RDW Plt Count Total Counted Seg Neutrophils % Seg Neuts % (Manual) Lymphocytes % Lymphocytes % (Manual) Atypical Lymphs % Monocytes % Monocytes % (Manual) Eosinophils % Eosinophils % (Manual) Basophils % Basophils % (Manual) Absolute Neutrophils Abs Neuts (Manual) Absolute Lymphocytes Abs Lymphs (Manual) Absolute Monocytes Abs Monocytes (Manual) Absolute Eosinophils Absolute Eos (Manual) Absolute Basophils Abs Basophils (Manual) Toxic Granulation Large Platelets Platelet Comment Anisocytosis Tear Drop Cells Ovalocytes Johnson Cells PT 14.4 INR 1.07 APTT 31.5 Carbonic Acid 1.55 H HCO3/H2CO3 Ratio 13:1 ABG pH 7.21 L ABG pCO2 51.5 H ABG pO2 84.0 ABG HCO3 20.3 ABG Total CO2 21.9 L ABG O2 Saturation 94.1 ABG Base Excess -7.6 FiO2 35 Sodium Potassium Chloride Carbon Dioxide Anion Gap BUN Creatinine Est GFR ( Amer) Est GFR (Non-Af Amer) Glucose POC Glucose Lactic Acid 1.8 Calcium Total Bilirubin Direct Bilirubin Neonat Total Bilirubin Neonat Direct Bilirubin Neonat Indirect Bili AST ALT Alkaline Phosphatase Creatine Kinase CK-MB (CK-2) Troponin I NT-Pro-B Natriuret Pep Total Protein Albumin Urine Color Urine Appearance Urine pH Ur Specific Gilbert Urine Protein Urine Glucose (UA) Urine Ketones Urine Blood Urine Nitrite Urine Bilirubin Urine Urobilinogen Ur Leukocyte Esterase Urine WBC (Auto) Urine RBC (Auto) Urine Mucus (Auto) Urine Ascorbic Acid Urine Opiates Screen Urine Methadone Screen Acetaminophen Ur Barbiturates Screen Ur Phencyclidine Scrn Ur Amphetamines Screen U Benzodiazepines Scrn Urine Cocaine Screen U Marijuana (THC) Screen Serum Alcohol Slides for Path Review 12/31/17 12/31/17 12/31/17 10:49 10:49 13:00 WBC RBC Hgb Hct MCV MCH MCHC RDW Plt Count Total Counted Seg Neutrophils % Seg Neuts % (Manual) Lymphocytes % Lymphocytes % (Manual) Atypical Lymphs % Monocytes % Monocytes % (Manual) Eosinophils % Eosinophils % (Manual) Basophils % Basophils % (Manual) Absolute Neutrophils Abs Neuts (Manual) Absolute Lymphocytes Abs Lymphs (Manual) Absolute Monocytes Abs Monocytes (Manual) Absolute Eosinophils Absolute Eos (Manual) Absolute Basophils Abs Basophils (Manual) Toxic Granulation Large Platelets Platelet Comment Anisocytosis Tear Drop Cells Ovalocytes Angélica Cells PT INR APTT Carbonic Acid 1.28 HCO3/H2CO3 Ratio 16:1 ABG pH 7.32 L ABG pCO2 42.4 ABG pO2 65.5 L ABG HCO3 21.5 ABG Total CO2 22.8 L ABG O2 Saturation 91.4 L ABG Base Excess -4.4 FiO2 35% Sodium Potassium Chloride Carbon Dioxide Anion Gap BUN Creatinine Est GFR ( Amer) Est GFR (Non-Af Amer) Glucose POC Glucose Lactic Acid Calcium Total Bilirubin Direct Bilirubin Neonat Total Bilirubin Neonat Direct Bilirubin Neonat Indirect Bili AST ALT Alkaline Phosphatase Creatine Kinase CK-MB (CK-2) Troponin I NT-Pro-B Natriuret Pep Total Protein Albumin Urine Color YELLOW Urine Appearance CLOUDY Urine pH 7.0 Ur Specific Gilbert 1.015 Urine Protein >=500 H Urine Glucose (UA) 50 H Urine Ketones NEGATIVE Urine Blood NEGATIVE Urine Nitrite NEGATIVE Urine Bilirubin NEGATIVE Urine Urobilinogen NEGATIVE Ur Leukocyte Esterase NEGATIVE Urine WBC (Auto) 4 Urine RBC (Auto) 2 Urine Mucus (Auto) RARE Urine Ascorbic Acid NEGATIVE Urine Opiates Screen NEGATIVE Urine Methadone Screen NEGATIVE Acetaminophen Ur Barbiturates Screen NEGATIVE Ur Phencyclidine Scrn NEGATIVE Ur Amphetamines Screen NEGATIVE U Benzodiazepines Scrn NEGATIVE Urine Cocaine Screen UNCONFIRMED POSITIVE U Marijuana (THC) Screen NEGATIVE Serum Alcohol Slides for Path Review 12/31/17 18:43 WBC RBC Hgb Hct MCV MCH MCHC RDW Plt Count Total Counted Seg Neutrophils % Seg Neuts % (Manual) Lymphocytes % Lymphocytes % (Manual) Atypical Lymphs % Monocytes % Monocytes % (Manual) Eosinophils % Eosinophils % (Manual) Basophils % Basophils % (Manual) Absolute Neutrophils Abs Neuts (Manual) Absolute Lymphocytes Abs Lymphs (Manual) Absolute Monocytes Abs Monocytes (Manual) Absolute Eosinophils Absolute Eos (Manual) Absolute Basophils Abs Basophils (Manual) Toxic Granulation Large Platelets Platelet Comment Anisocytosis Tear Drop Cells Ovalocytes Johnson Cells PT INR APTT Carbonic Acid HCO3/H2CO3 Ratio ABG pH ABG pCO2 ABG pO2 ABG HCO3 ABG Total CO2 ABG O2 Saturation ABG Base Excess FiO2 Sodium Potassium Chloride Carbon Dioxide Anion Gap BUN Creatinine Est GFR ( Amer) Est GFR (Non-Af Amer) Glucose POC Glucose 94 Lactic Acid Calcium Total Bilirubin Direct Bilirubin Neonat Total Bilirubin Neonat Direct Bilirubin Neonat Indirect Bili AST ALT Alkaline Phosphatase Creatine Kinase CK-MB (CK-2) Troponin I NT-Pro-B Natriuret Pep Total Protein Albumin Urine Color Urine Appearance Urine pH Ur Specific Gilbert Urine Protein Urine Glucose (UA) Urine Ketones Urine Blood Urine Nitrite Urine Bilirubin Urine Urobilinogen Ur Leukocyte Esterase Urine WBC (Auto) Urine RBC (Auto) Urine Mucus (Auto) Urine Ascorbic Acid Urine Opiates Screen Urine Methadone Screen Acetaminophen Ur Barbiturates Screen Ur Phencyclidine Scrn Ur Amphetamines Screen U Benzodiazepines Scrn Urine Cocaine Screen U Marijuana (THC) Screen Serum Alcohol Slides for Path Review Chest X-Ray 12/31/17 08:32 IMPRESSION: Pulmonary vascular congestion and mild interstitial pulmonary edema KUB X-Ray 12/31/17 08:33 IMPRESSION: NG tube with its tip in the left upper quadrant presumably in the fundus of the stomach 12/31/17 19:43 62-year-old male with congestive heart failure, coronary artery disease, HIV, hypertension, hyperlipidemia, chronic kidney disease, COPD, type 1 diabetes presents via EMS from home in respiratory distress on BiPAP. Patient unable to provide history. EMS reports that the patient states that his shortness of breath started 1 day prior to arrival. Upon their arrival patient had a blood pressure reading of 300 systolic. Patient was reported to be hypoxic, tachypneic. Upon his arrival into the emergency department he is altered, diaphoretic and in severe respiratory distress. Upon arrival patient is hypoxic , tachypneic, hypertensive, tachycardic. Patient was intubated shortly after arriving to the emergency department. Patient received 1 cc of nitroglycerin, Lasix, ketamine, succinylcholine prior to intubation. Patient was successfully intubated with the glide scope, Remak and 7.5 ET tube. Chest x-ray was obtained and shows proper placement of ET tube and NG tube. Post intubation sedation was initially fentanyl, propofol. After intubations patient's blood pressure rapidly declined and nitro drip was stopped. Sedation was changed to Versed and propofol which the patient tolerated more favorably. Chest x-ray consistent with congestive heart failure. Patient has a markedly elevated BNP of 31,000. Troponin is indeterminate. CBC is without leukocytosis, anemia. CMP shows hypernatremia, hyperkalemia, elevated BUN and creatinine consistent with end-stage renal. Urine drug screen positive for cocaine. Patient accepted by hospitalist to the ICU. 12/31/17 19:43 12/31/17 19:50 - Vital Signs Vital signs: Temp Pulse Resp BP Pulse Ox 99.9 F 100 16 155/107 H 99 12/31/17 18:35 12/31/17 18:00 12/31/17 18:35 12/31/17 18:35 12/31/17 18:35 - Laboratory Result Diagrams: 12/31/17 08:08 12/31/17 08:08 Laboratory results interpreted by me: 12/31/17 12/31/17 12/31/17 08:08 08:08 08:08 RBC 4.26 L Hgb 13.0 L RDW 15.4 H Seg Neuts % (Manual) 25 L Lymphocytes % (Manual) 48 H Abs Lymphs (Manual) 6.0 H Sodium 145.2 H Potassium 5.6 H Chloride 111 H BUN 56 H Creatinine 6.49 H Est GFR ( Amer) 11 L Est GFR (Non-Af Amer) 9 L Glucose 226 H AST 268 H ALT 220 H NT-Pro-B Natriuret Pep 46927 H Acetaminophen < 10 L - Diagnostic Test Radiology reviewed: Image reviewed, Reports reviewed Procedures - Intubation Orotracheal Time of Intubation: 08:56 Airway evaluation: Normal anatomy Mallampati Classification: Class 3 Medications: Succinylcholine, Ketamine Intubation method: Orotracheal Blade type: Lyndsay Blade size: 3 Equipment used: Glidescope ETT size: 7.5 ETT secured at: Teeth ETT secured at (cm): 23 Breath Sounds after Intubation: Equal End tidal CO2 confirmed: Yes Ventilator settings: AC Tidal volume: 400 FiO2: 100 Respirations: 12 PEEP: 5 Post Intubation Xray: Yes Intubation Complications: No complications Critical Care Note - Critical Care Note Total time excluding time spent on procedures (mins): 40 - minutes of critical care time spent in direct contact evaluating and reevaluating the patient, treating symptoms, reviewing labs and studies and speaking with family and consultants excluding any procedures Discharge - Discharge Clinical Impression: Essential hypertension, HIV (human immunodeficiency virus infection), Cocaine use Respiratory failure Qualifiers: Chronicity: acute on chronic Respiratory failure complication: hypoxia Qualified Code(s): J96.21 - Acute and chronic respiratory failure with hypoxia CHF exacerbation Qualifiers: Heart failure type: unspecified Qualified Code(s): I50.9 - Heart failure, unspecified Chronic renal failure Qualifiers: Chronic kidney disease stage: stage 3 (moderate) Qualified Code(s): N18.3 - Chronic kidney disease, stage 3 (moderate) Condition: Fair Disposition: ADMITTED INPATIENT Admitting Provider: Hospitalist Unit Admitted: ICU
[2017-12-31 09:03] LABS: CREATINE KINASE MB 1.21 ng/mL (<4.55)
[2017-12-31] MEDS ORDERED: FUROSEMIDE INJ/PF 40 MG/4 ML SDV IV ONE (09:04)
[2017-12-31 09:05] LABS: TROPONIN I 0.06 ng/mL
[2017-12-31] MEDS ORDERED: FENTANYL CITRATE INJ/PF 100 MCG/2 ML AMPUL IV ONE ×2 (09:11→09:26)
[2017-12-31] MEDS ORDERED: KETAMINE HCL INJ 500 MG/10 ML VIAL IV ONE ×2 (09:23→09:26)
--- NOTE | 2017-12-31 09:25 | RADIOLOGY REPORT (SQ) ---
EXAM DESCRIPTION: KUB/ABDOMEN (SINGLE VIEW) COMPLETED DATE/TIME: 12/31/2017 9:12 am REASON FOR STUDY: ng COMPARISON: None. TECHNIQUE: AP view of the lower thorax and upper abdomen LIMITATIONS: None. FINDINGS: NG tube is seen with its tip in the left upper quadrant presumably in the fundus of the st omach. No acute consolidations are identified. A nonspecific intestinal bowel gas pattern is identi fied in the visualized portions of the bowel. IMPRESSION: NG tube with its tip in the left upper quadrant presumably in the fundus of the stomach TECHNICAL DOCUMENTATION: JOB ID: [id number] [email or web address] All Rights Reserved Reading location - IP/workstation name: [email or web address]
[2017-12-31] MEDS ORDERED: NITROGLYCERIN/D5W 50 MG/250 ML RTUINJ IV PRN ×2 (09:26→09:37)
[2017-12-31] MEDS ORDERED: SUCCINYLCHOLINE CHLORIDE INJ 200 MG/10 ML VIAL ONE (09:28)
[2017-12-31 09:33] LABS: ABSOLUTE MONOCYTES # (MANUAL) 0.6 10^3/uL (0.1-1.4); ABSOLUTE NEUTROPHILS# (MANUAL) 2.2 10^3/uL (1.7-8.2); BASOPHILS % (MANUAL) 0 % (0-2); EOSINOPHILS % (MANUAL) 1 % (0-6); LYMPHOCYTES % (MANUAL) 48 % (13-45); MONOCYTES % (MANUAL) 7 % (3-13); SEGMENTED NEUTROPHILS % (MAN) 25 % (42-78); TOTAL CELLS COUNTED 100
[2017-12-31 09:39] LABS: BURR CELLS SLIGHT; OVALOCYTES SLIGHT; TOXIC GRANULATION 1+
[2017-12-31] MEDS: PROPOFOL 1,000 MG/100 ML INFUS..BTL IV PRN ×4 (09:39→22:47)
[2017-12-31 09:40] LABS: ANISOCYTOSIS SLIGHT; PLATELET COMMENT ADEQUATE; PLATELET LARGE PRESENT; TEAR DROP CELLS SLIGHT
[2017-12-31] MEDS ORDERED: MIDAZOLAM HCL 50 MG/100 ML RTUINJ ONE (09:48)
[2017-12-31] MEDS ORDERED: MIDAZOLAM HCL 50 MG/100 ML RTUINJ IV-INFUSE PRN (09:52)
[2017-12-31 10:09] LABS: PATH REVIEW PATHOLOGIST REVIEWED
[2017-12-31] MEDS ORDERED: DEXTROSE 50%-WATER 25 GM/50 ML DISP.SYRIN IV PRN ×2 (10:46)
[2017-12-31] MEDS ORDERED: IPRATROPIUM/ALBUTEROL 0.5-2.5 MG/3 ML AMPUL NEB PRN (10:46)
[2017-12-31] MEDS ORDERED: DEXTROSE 40% GEL 15 GM TUBE PO PRN ×2 (10:46)
[2017-12-31] MEDS ORDERED: ONDANSETRON HCL INJ/PF 4 MG/2 ML SDV IV PRN (10:46)
[2017-12-31] MEDS ORDERED: GLUCAGON,HUMAN RECOMB 1 MG INJ SUBCUT PRN (10:46)
[2017-12-31] MEDS ORDERED: ACETAMINOPHEN 325 MG TABLET NG PRN (10:46)
[2017-12-31 10:47] LABS: ARTERIAL BLOOD BASE EXCESS -7.6 mmol/L; ARTERIAL BLOOD H2CO3 1.55 mmol/L (1.05-1.35); ARTERIAL BLOOD HCO3 20.3 mmol/L (20-26); ARTERIAL BLOOD O2 SATURATION 94.1 % (94-98); ARTERIAL BLOOD PCO2 51.5 mmHg (35-45); ARTERIAL BLOOD PH 7.21 (7.35-7.45); ARTERIAL BLOOD TOTAL CO2 21.9 mmol/L (23-27)
[2017-12-31 10:50] LABS: ARTERIAL BLOOD FIO2 35
--- NOTE | 2017-12-31 11:35 | PDOC CONSULTATION ---
Consultation Consult Date: 12/31/17 Attending physician:: COCO MIRANDA Consult reason:: acute resp failure History of Present Illness Admission Date/PCP: 12/31/17 10:02 MARIPOSA MALAGON PA-C History of Present Illness: KRISTY CANTU is a 62 year old male,presented to the ED by EMS with complaints of increasing shortness of breath EMS to place a CPAP mask but it did not had little effect the time he presented to the emergency room saturations in the high 80s however he was profoundly tachypneic and was subsequently intubated on history of multiple medical problems including hypertension sleep disturbances end-stage renal disease with hemodialysis COPD. He was scheduled for his dialysis today and had not missed his dialysis on Friday. Past Medical History Cardiac Medical History: Reports: Congestive Heart Failure, DVT, Myocardial Infarction, Hyperlipidema, Hypertension, Peripheral Vascular Disease, Pulmonary Embolism Pulmonary Medical History: Reports: Bronchitis, Chronic Obstructive Pulmonary Disease (COPD), Pneumonia Denies: Asthma EENT Medical History: Denies: Nose, Throat Neurological Medical History: Denies: Migraine, Seizures Endocrine Medical History: Reports: Diabetes Mellitus Type 1, Diabetes Mellitus Type 2 Renal/ Medical History: Reports: End Stage Renal Disease GI Medical History: Reports: Gastroesophageal Reflux Disease Musculoskeltal Medical History: Reports: Arthritis Skin Medical History: Denies: Eczema Psychiatric Medical History: Reports: Substance Abuse Traumatic Medical History: Denies: Traumatic Brain Injury Hematology: Denies: Anemia Infectious Medical History: Reports: HIV Past Surgical History Past Surgical History: Reports: Orthopedic Surgery - bilateral amputation, R BKA , L AKA, Vascular Surgery - left arm clot removed, IVC filter, Other - Endoscopy ; Vascular surgery. Social History Smoking Status: Former Smoker Frequency of Alcohol Use: None Hx Recreational Drug Use: Yes Drugs: Cocaine Hx Prescription Drug Abuse: No Family History Family History: CAD, CVA, DM, Hyperlipidemia, Hypertension, Malignancy Parental Family History Reviewed: No Children Family History Reviewed: No Sibling(s) Family History Reviewed.: No Medication/Allergy Home Medications: Albuterol Sulfate [Albuterol Sulfate 2.5mg/3 mL] 3 ml NEB Q8 09/10/17 Albuterol Sulfate [Ventolin HFA MDI 18 GM] 2 puff IH Q6HP PRN 09/10/17 Calcitriol [Rocaltrol 0.25 mcg Capsule] 0.25 mcg PO DAILY 09/10/17 Carvedilol [Coreg 25 mg Tablet] 25 mg PO Q12 09/10/17 Dolutegravir Sodium [Tivicay] 50 mg PO DAILY 09/10/17 Hydralazine HCl 100 mg PO Q8 09/10/17 Isosorbide Mononitrate [Isosorbide Mononitrate ER] 120 mg PO DAILY 09/10/17 Pantoprazole Sodium [Protonix] 40 mg PO DAILY 09/10/17 Pravastatin Sodium [Pravachol] 40 mg PO DAILY 09/10/17 Apixaban [Eliquis 2.5 mg Tablet] 2.5 mg PO BID 30 Days #60 tablet 09/17/17 Furosemide [Lasix 20 mg Tablet] 20 mg PO DAILY 30 Days #30 tablet 09/17/17 Clonidine [Catapres-Tts 3 (0.3 mg/24 Hr) Transderm Patch] 1 patch TD Q7D Lamivudine [Epivir] 5 ml PO DAILY 12/31/17 Allergies/Adverse Reactions: No Known Allergies Allergy (Verified 09/10/17 14:18) Review of Systems ROS unobtainable: Due to endotracheal tube Physical Exam Vital Signs: Temp Pulse Resp BP Pulse Ox 9 L 132/90 H 99 12/31/17 10:11 12/31/17 10:11 12/31/17 10:11 General appearance: PRESENT: no acute distress, disheveled, morbidly obese, well -developed, well-nourished. ABSENT: cooperative Head exam: PRESENT: normocephalic Eye exam: PRESENT: conjunctiva pale. ABSENT: EOMI, nystagmus, periorbital swelling, scleral icterus Mouth exam: PRESENT: dry mucosa, neck supple, tongue midline, other - ET tube intact Respiratory exam: PRESENT: decreased breath sounds, prolonged expiratory phas, rales, rhonchi, unlabored. ABSENT: retraction, stridor Cardiovascular exam: PRESENT: RRR, +S1, +S2, systolic murmur, tachycardia Pulses: PRESENT: normal radial pulses GI/Abdominal exam: PRESENT: diminished bowel sounds, soft Extremities exam: ABSENT: calf tenderness, clubbing, joint swelling Musculoskeletal exam: ABSENT: ambulatory, deformity, dislocation Neurological exam: ABSENT: awake, oriented to person Skin exam: PRESENT: dry, warm Results Laboratory Results: 12/31/17 10:25 Carbonic Acid 1.55 H HCO3/H2CO3 Ratio 13:1 ABG pH 7.21 L ABG pCO2 51.5 H ABG pO2 84.0 ABG HCO3 20.3 ABG O2 Saturation 94.1 ABG Base Excess -7.6 FiO2 35 Impressions: Chest X-Ray 12/31/17 08:32 IMPRESSION: Pulmonary vascular congestion and mild interstitial pulmonary edema KUB X-Ray 12/31/17 08:33 IMPRESSION: NG tube with its tip in the left upper quadrant presumably in the fundus of the stomach Assessment & Plan - Diagnosis (1) Hypertensive urgency Is this a current diagnosis for this admission?: Yes Plan: Appears to be resolved with after nitroglycerin drip (2) Flash pulmonary edema Is this a current diagnosis for this admission?: Yes (3) Acute respiratory failure with hypoxia Is this a current diagnosis for this admission?: Yes (4) Chronic kidney disease, stage V (very severe) Is this a current diagnosis for this admission?: Yes Plan: Retaining PCO2 mechanical ventilation as required hopefully he will be able to maintain his appointment and get hemodialysis today (5) COPD exacerbation Is this a current diagnosis for this admission?: Yes Plan: Bronchodilator therapy (6) HIV (human immunodeficiency virus infection) Is this a current diagnosis for this admission?: Yes Plan: Check CD4 CD8 and/or viral load - Time Total Critical Time (Minutes): 55
[2017-12-31 11:54] LABS: APPEARANCE,URINE CLOUDY; BILIRUBIN,URINE NEGATIVE (NEGATIVE); COLOR,URINE YELLOW; GLUCOSE, URINE 50 mg/dL (NEGATIVE); KETONES,URINE NEGATIVE (NEGATIVE); LEUKOCYTE ESTERASE,URINE NEGATIVE (NEGATIVE); NITRITE,URINE NEGATIVE (NEGATIVE); PROTEIN,URINE >=500 mg/dL (NEGATIVE); URINE SPECIFIC GRAVITY 1.015; UROBILINOGEN,URINE NEGATIVE mg/dL (<2.0)
[2017-12-31 12:05] LABS: URINE AMPHETAMINES SCREEN NEGATIVE; URINE BARBITURATES SCREEN NEGATIVE; URINE BENZODIAZEPINES SCREEN NEGATIVE; URINE MARIJUANA (THC) SCREEN NEGATIVE; URINE METHADONE SCREEN NEGATIVE; URINE PHENCYCLIDINE SCREEN NEGATIVE
[2017-12-31 12:17] LABS: URINE COCAINE SCREEN UNCONFIRMED POSITIVE
--- NOTE | 2017-12-31 13:21 | EKG REPORT ---
SEVERITY:- ABNORMAL ECG - SINUS TACHYCARDIA PROBABLE LEFT ATRIAL ABNORMALITY LEFT AXIS DEVIATION LVH WITH SECONDARY REPOLARIZATION ABNORMALITY : Confirmed by: Marco Young MD 31-Dec-2017 13:20:53
[2017-12-31 13:25] LABS: ARTERIAL BLOOD BASE EXCESS -4.4 mmol/L; ARTERIAL BLOOD H2CO3 1.28 mmol/L (1.05-1.35); ARTERIAL BLOOD HCO3 21.5 mmol/L (20-26); ARTERIAL BLOOD O2 SATURATION 91.4 % (94-98); ARTERIAL BLOOD PCO2 42.4 mmHg (35-45); ARTERIAL BLOOD PH 7.32 (7.35-7.45); ARTERIAL BLOOD PO2 65.5 mmHg (80-100); ARTERIAL BLOOD TOTAL CO2 22.8 mmol/L (23-27)
[2017-12-31 13:27] LABS: ARTERIAL BLOOD FIO2 35%
[2017-12-31] MEDS ORDERED: ALTEPLASE INJ 2 MG VIAL (CATH CLEARANCE) INJ PRN (16:30)
--- NOTE | 2017-12-31 18:48 | PDOC CONSULTATION ---
Consultation Consult Date: 12/31/17 Consult reason:: Emergent dialysis in the setting of acute respiratory failure from Acute CHF. History of Present Illness Admission Date/PCP: 12/31/17 10:02 MARIPOSA MALAGON PA-C History of Present Illness: KRISTY CANTU is a 62 year old male with multiple co morbidities including ESRD on Dialysis, DM, Hypertension, HIV, DVT/PE, Cocaine use was admitted with hypertensive urgency in CHF. He failed to respond to BI pap and ended being intubated. His BP has responded to IV NTG.He s currently in the ICU undergoing emergent dialysis. We are having issues with his IJ permacath and that had to be altplased and it is getting to work.Orders were discussed with the treating limerock tower loader Jenni.Labs and medications were reviewed. Past Medical History Cardiac Medical History: Reports: CHF-Diastolic, DVT, Hyperlipidemia, Hypertension-primary, Myocardial Infarction, Peripheral Vascular Disease, Pulmonary Embolism Pulmonary Medical History: Reports: Bronchitis, Chronic Obstructive Pulmonary Disease (COPD), Pneumonia Denies: Asthma EENT Medical History: Denies: Nose, Throat Neurological Medical History: Denies: Migraine, Seizures Endocrine Medical History: Reports: Diabetes Mellitus Type 2 Renal/ Medical History: Reports: End Stage Renal Disease, Hyperphosphatemia, Metabolic Acidosis, Secondary Hyperparathyroidism GI Medical History: Reports: Gastroesophageal Reflux Disease Musculoskeltal Medical History: Reports: Arthritis Skin Medical History: Denies: Eczema Psychiatric Medical History: Reports: Substance Abuse Traumatic Medical History: Denies: Traumatic Brain Injury Infectious Medical History: Reports: HIV Past Surgical History Past Surgical History: Reports: Orthopedic Surgery - bilateral amputation, R BKA , L AKA, Vascular Surgery - left arm clot removed, IVC filter, Other - Endoscopy ; Vascular surgery. Social History Lives with: Other - Unknown Smoking Status: Current Every Day Smoker Frequency of Alcohol Use: None Hx Recreational Drug Use: Yes Drugs: Cocaine Hx Prescription Drug Abuse: No - Advance Directive Resuscitation Status: Full Code Family History Parental Family History Reviewed: Yes - negative for esrd Children Family History Reviewed: No Sibling(s) Family History Reviewed.: No Medication/Allergy Home Medications: Albuterol Sulfate [Albuterol Sulfate 2.5mg/3 mL] 3 ml NEB Q8 09/10/17 Albuterol Sulfate [Ventolin HFA MDI 18 GM] 2 puff IH Q6HP PRN 09/10/17 Calcitriol [Rocaltrol 0.25 mcg Capsule] 0.25 mcg PO DAILY 09/10/17 Carvedilol [Coreg 25 mg Tablet] 25 mg PO Q12 09/10/17 Dolutegravir Sodium [Tivicay] 50 mg PO DAILY 09/10/17 Hydralazine HCl 100 mg PO Q8 09/10/17 Isosorbide Mononitrate [Isosorbide Mononitrate ER] 120 mg PO DAILY 09/10/17 Pantoprazole Sodium [Protonix] 40 mg PO DAILY 09/10/17 Pravastatin Sodium [Pravachol] 40 mg PO DAILY 09/10/17 Apixaban [Eliquis 2.5 mg Tablet] 2.5 mg PO BID 30 Days #60 tablet 09/17/17 Furosemide [Lasix 20 mg Tablet] 20 mg PO DAILY 30 Days #30 tablet 09/17/17 Clonidine [Catapres-Tts 3 (0.3 mg/24 Hr) Transderm Patch] 1 patch TD Q7D Lamivudine [Epivir] 5 ml PO DAILY 12/31/17 Allergies/Adverse Reactions: No Known Allergies Allergy (Verified 09/10/17 14:18) Review of Systems ROS unobtainable: Due to endotracheal tube, Due to mental status Review of Systems: chart review was done.discussed with 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 Constitutional: PRESENT: as per HPI Physical Exam Vital Signs: Temp Pulse Resp BP Pulse Ox 99.7 F 100 18 163/107 H 99 12/31/17 18:00 12/31/17 18:00 12/31/17 18:00 12/31/17 18:00 12/31/17 18:00 Intake & Output 12/30/17 12/31/17 01/01/18 06:59 06:59 06:59 Intake Total 0 Output Total 208 Balance -208 Weight 66.9 kg Exam: intubated and sedated. Eye exam: PRESENT: conjunctiva pink, EOMI, PERRLA Neck exam: ABSENT: lymphadenopathy, meningismus, tenderness, thyromegaly, tracheal deviation Respiratory exam: PRESENT: clear to auscultation ramila, crackles, symmetrical Cardiovascular exam: PRESENT: +S1, +S2, systolic murmur GI/Abdominal exam: PRESENT: normal bowel sounds, soft. ABSENT: distended, organomegaly, tenderness Extremities exam: PRESENT: pedal edema, other - Bilateral amputee Skin exam: ABSENT: erythema, mottled, rash Results Laboratory Results: 12/31/17 12/31/17 12/31/17 10:25 10:49 13:00 Carbonic Acid 1.55 H 1.28 HCO3/H2CO3 Ratio 13:1 16:1 ABG pH 7.21 L 7.32 L ABG pCO2 51.5 H 42.4 ABG pO2 84.0 65.5 L ABG HCO3 20.3 21.5 ABG O2 Saturation 94.1 91.4 L ABG Base Excess -7.6 -4.4 FiO2 35 35% Urine Color YELLOW Urine Appearance CLOUDY Urine pH 7.0 Ur Specific [place] 1.015 Urine Protein >=500 H Urine Glucose (UA) 50 H Urine Ketones NEGATIVE Urine Blood NEGATIVE Urine Nitrite NEGATIVE Ur Leukocyte Esterase NEGATIVE Urine WBC (Auto) 4 Urine RBC (Auto) 2 Impressions: Chest X-Ray 12/31/17 08:32 IMPRESSION: Pulmonary vascular congestion and mild interstitial pulmonary edema KUB X-Ray 12/31/17 08:33 IMPRESSION: NG tube with its tip in the left upper quadrant presumably in the fundus of the stomach Assessment & Plan - Diagnosis (1) ESRD (end stage renal disease) on dialysis Plan: Currently undergoing emergent dialysis for acute CHF.LIkely severe hypertension from cocaine use leading to flash pulmonary edema and Acute CHF. Orders discussed and reviewed with Jenni.Will plan t remove 4-5 l of fluid as tolerated.His hyperkalemia should respond to the dialysis as well. (2) HIV (human immunodeficiency virus infection) Plan: On hiv meds. (3) Acute on chronic combined systolic and diastolic congestive heart failure Plan: See response to dialysis. (4) Acute respiratory failure with hypoxia Is this a current diagnosis for this admission?: Yes Plan: FRom Acute CHF.See response to dialysis. (5) Cocaine abuse Plan: Positive drug screen.Unfortunate. (6) History of DVT (deep vein thrombosis) Plan: Recommend DVT prophylaxis. (7) Hyperkalemia Plan: Should respond to HD.Follow up with labs. (8) Hypertensive emergency Plan: Improved with NTG and also see the response to HD.
[2017-12-31] MEDS ORDERED: HEPARIN SOD (PORCINE) 1,000 UNIT/ML 10 ML VIAL ONE (18:51)
[2017-12-31] MEDS ORDERED: HEPARIN SOD (PORCINE) 1,000 UNIT/ML 10 ML VIAL IV PRN ×2 (19:00)
--- NOTE | 2017-12-31 19:16 | PDOC H&P ---
History of Present Illness Admission Date/PCP: 12/31/17 10:02 MARIPOSA MALAGON PA-C Patient complains of: Difficulty breathing and shortness of breath History of Present Illness: KRISTY CANTU is a 62 year old male Brought to the emergency room in respiratory distress. Please note this history was obtained solely from the computer records as patient is currently intubated and there is no family member available. Separately found to be in distress and was initially placed on BiPAP. He was subsequently intubated due to progressive respiratory failure. Patient's blood pressure was reportedly as high as a systolic of 300. He was started on intra-venous nitroglycerin drip and this did improve his blood pressure and was subsequently discontinued. Patient does have end-stage renal disease and his last dialysis was apparently on Friday 2 days ago. His chest x-ray did show some evidence of pulmonary vascular congestion. Although his BNP is 31,000 this is of questionable value due to his ESRD. Past Medical History Cardiac Medical History: Reports: Congestive Heart Failure, DVT, Myocardial Infarction, Hyperlipidema, Hypertension, Peripheral Vascular Disease, Pulmonary Embolism Pulmonary Medical History: Reports: Bronchitis, Chronic Obstructive Pulmonary Disease (COPD), Pneumonia Denies: Asthma EENT Medical History: Denies: Nose, Throat Neurological Medical History: Denies: Migraine, Seizures Endocrine Medical History: Reports: Diabetes Mellitus Type 1, Diabetes Mellitus Type 2 Renal/ Medical History: Reports: End Stage Renal Disease GI Medical History: Reports: Gastroesophageal Reflux Disease Musculoskeltal Medical History: Reports: Arthritis Skin Medical History: Denies: Eczema Psychiatric Medical History: Reports: Substance Abuse Traumatic Medical History: Denies: Traumatic Brain Injury Hematology: Denies: Anemia Infectious Medical History: Reports: HIV Past Surgical History Past Surgical History: Reports: Orthopedic Surgery - bilateral amputation, R BKA , L AKA, Vascular Surgery - left arm clot removed, IVC filter, Other - Endoscopy ; Vascular surgery. Social History Information Source: [facility] Records Lives with: Other - Unknown Smoking Status: Current Every Day Smoker Frequency of Alcohol Use: None Hx Recreational Drug Use: Yes Drugs: Cocaine Hx Prescription Drug Abuse: No - Advance Directive Resuscitation Status: Full Code Family History Family History: CAD, CVA, DM, Hyperlipidemia, Hypertension, Malignancy Parental Family History Reviewed: No Children Family History Reviewed: No Sibling(s) Family History Reviewed.: No Medication/Allergy Home Medications: Albuterol Sulfate [Albuterol Sulfate 2.5mg/3 mL] 3 ml NEB Q8 09/10/17 Albuterol Sulfate [Ventolin HFA MDI 18 GM] 2 puff IH Q6HP PRN 09/10/17 Calcitriol [Rocaltrol 0.25 mcg Capsule] 0.25 mcg PO DAILY 09/10/17 Carvedilol [Coreg 25 mg Tablet] 25 mg PO Q12 09/10/17 Dolutegravir Sodium [Tivicay] 50 mg PO DAILY 09/10/17 Hydralazine HCl 100 mg PO Q8 09/10/17 Isosorbide Mononitrate [Isosorbide Mononitrate ER] 120 mg PO DAILY 09/10/17 Pantoprazole Sodium [Protonix] 40 mg PO DAILY 09/10/17 Pravastatin Sodium [Pravachol] 40 mg PO DAILY 09/10/17 Apixaban [Eliquis 2.5 mg Tablet] 2.5 mg PO BID 30 Days #60 tablet 09/17/17 Furosemide [Lasix 20 mg Tablet] 20 mg PO DAILY 30 Days #30 tablet 09/17/17 Clonidine [Catapres-Tts 3 (0.3 mg/24 Hr) Transderm Patch] 1 patch TD Q7D Lamivudine [Epivir] 5 ml PO DAILY 12/31/17 Allergies/Adverse Reactions: No Known Allergies Allergy (Verified 09/10/17 14:18) Review of Systems ROS unobtainable: Due to endotracheal tube Physical Exam Vital Signs: Temp Pulse Resp BP Pulse Ox 98.8 F 92 18 150/96 H 98 12/31/17 14:00 12/31/17 16:25 12/31/17 16:25 12/31/17 14:00 12/31/17 16:25 Intake & Output 12/30/17 12/31/17 01/01/18 06:59 06:59 06:59 Intake Total 0 Output Total 125 Balance -125 Weight 66.9 kg General appearance: PRESENT: other - Patient is currently intubated sedated Head exam: PRESENT: atraumatic Eye exam: PRESENT: PERRLA Neck exam: ABSENT: carotid bruit Extremities exam: PRESENT: +1 edema, other - bilateral lower extremity amputation. L AKA, R BKA Neurological exam: PRESENT: other - sedated and intubated Results Laboratory Results: 12/31/17 12/31/17 12/31/17 10:25 10:49 13:00 Carbonic Acid 1.55 H 1.28 HCO3/H2CO3 Ratio 13:1 16:1 ABG pH 7.21 L 7.32 L ABG pCO2 51.5 H 42.4 ABG pO2 84.0 65.5 L ABG HCO3 20.3 21.5 ABG O2 Saturation 94.1 91.4 L ABG Base Excess -7.6 -4.4 FiO2 35 35% Urine Color YELLOW Urine Appearance CLOUDY Urine pH 7.0 Ur Specific [place] 1.015 Urine Protein >=500 H Urine Glucose (UA) 50 H Urine Ketones NEGATIVE Urine Blood NEGATIVE Urine Nitrite NEGATIVE Ur Leukocyte Esterase NEGATIVE Urine WBC (Auto) 4 Urine RBC (Auto) 2 Impressions: Chest X-Ray 12/31/17 08:32 IMPRESSION: Pulmonary vascular congestion and mild interstitial pulmonary edema KUB X-Ray 12/31/17 08:33 IMPRESSION: NG tube with its tip in the left upper quadrant presumably in the fundus of the stomach Assessment & Plan - Diagnosis (1) Respiratory failure Qualifiers: Chronicity: acute on chronic Respiratory failure complication: hypoxia Qualified Code(s): J96.21 - Acute and chronic respiratory failure with hypoxia Is this a current diagnosis for this admission?: Yes (2) ESRD (end stage renal disease) on dialysis Is this a current diagnosis for this admission?: Yes (3) HIV (human immunodeficiency virus infection) Is this a current diagnosis for this admission?: Yes (4) Acute on chronic systolic and diastolic heart failure, NYHA class 3 Is this a current diagnosis for this admission?: Yes (5) Acute respiratory failure with hypoxia Is this a current diagnosis for this admission?: Yes (6) Flash pulmonary edema Is this a current diagnosis for this admission?: Yes (7) Transaminitis Is this a current diagnosis for this admission?: Yes - Time Time Spent: 50 to 70 Minutes Medications reviewed and adjusted accordingly: Yes Anticipated discharge: Home Within: within 72 hours - Inpatient Certification Based on my medical assessment, after consideration of the patient's comorbidities, presenting symptoms, or acuity I expect that the services needed warrant INPATIENT care.: Yes Medical Necessity: Need For Continuous Telemetry Monitoring, Risk of Complication if Not Cared For in Hospital
[2017-12-31] MEDS ORDERED: HEPARIN SOD (PORCINE) 5,000 UNIT/ML 1 ML SYRINGE SUBCUT SCH (22:00)
[2017-12-31] MEDS: MIDAZOLAM HCL 50 MG/100 ML RTUINJ IV-INFUSE PRN (22:48)
[2018-01-01] MEDS: PROPOFOL 1,000 MG/100 ML INFUS..BTL IV PRN ×4 (03:51→23:37)
[2018-01-01 04:11] LABS: ABSOLUTE LYMPHOCYTES (AUTO) 2.2 10^3/uL (0.5-4.7); ABSOLUTE NEUT (AUTO) 3.5 10^3/uL (1.7-8.2); BASOPHILS % (AUTO) 0.5 % (0-2); EOSINOPHILS % (AUTO) 0.2 % (0-6); HEMATOCRIT 38.6 % (37.9-51.0); HEMOGLOBIN 13.1 g/dL (13.5-17.0); LYMPHOCYTES % (AUTO) 32.7 % (13-45); MEAN CORPUSCULAR HEMOGLOBIN 30.7 pg (27.0-33.4); MEAN CORPUSCULAR HGB CONC 33.9 g/dL (32.0-36.0); MEAN CORPUSCULAR VOLUME 91 fl (80-97); MONOCYTES % (AUTO) 14.4 % (3-13); PLATELET COUNT 144 10^3/uL (150-450); RED BLOOD COUNT 4.26 10^6/uL (4.35-5.55); RED CELL DISTRIBUTION WIDTH 15.3 % (11.5-14.0); SEGMENTED NEUTROPHILS % (AUTO) 52.2 % (42-78); TOTAL CELLS COUNTED % (AUTO) 100 %; WHITE BLOOD COUNT 6.6 10^3/uL (4.0-10.5)
[2018-01-01 04:21] LABS: ANION GAP 14 (5-19); BLOOD UREA NITROGEN 43 mg/dL (7-20); CALCIUM 8.9 mg/dL (8.4-10.2); CARBON DIOXIDE 24 mmol/L (22-30); CHLORIDE 106 mmol/L (98-107); GLUCOSE 96 mg/dL (75-110); POTASSIUM 4.7 mmol/L (3.6-5.0)
[2018-01-01 05:29] LABS: ARTERIAL BLOOD BASE EXCESS 1.5 mmol/L; ARTERIAL BLOOD H2CO3 1.16 mmol/L (1.05-1.35); ARTERIAL BLOOD HCO3 25.6 mmol/L (20-26); ARTERIAL BLOOD O2 SATURATION 98.3 % (94-98); ARTERIAL BLOOD PCO2 38.7 mmHg (35-45); ARTERIAL BLOOD PH 7.44 (7.35-7.45); ARTERIAL BLOOD PO2 114.3 mmHg (80-100); ARTERIAL BLOOD TOTAL CO2 26.8 mmol/L (23-27)
[2018-01-01 05:30] LABS: ARTERIAL BLOOD FIO2 40%
--- NOTE | 2018-01-01 06:36 | RADIOLOGY REPORT (SQ) ---
EXAM DESCRIPTION: XR CHEST 1 VIEW COMPLETED DATE/TME: 01/01/2018 06:00 CLINICAL HISTORY: acute ressp failure COMPARISON: 12/22/2017 FINDINGS: Single frontal view of the chest. Left IJ tunneled dialysis catheter with tip in the high right atrium. Cardiomegaly. Tortuosity of the thoracic aorta. No consolidation, pneumothorax, or pleural effusion. No displaced rib fractures identified. Leads overlie the chest. Upper abdominal soft tissues are unremarkable. IMPRESSION: 1. No acute pulmonary process identified. Cardiomegaly. Electronically signed by: Shaquille Mackey 01/01/2018 5:35 AM
[2018-01-01] MEDS ORDERED: LAMIVUDINE PO SCH (10:00)
[2018-01-01] MEDS ORDERED: (PENDING PHARMACY ID) (Dolutegravir Sodium [Tivicay] 50 MG) PO SCH (10:00)
[2018-01-01] MEDS: CALCITRIOL 0.25 MCG CAPSULE PO SCH (10:24)
[2018-01-01] MEDS: PANTOPRAZOLE SODIUM 40 MG VIAL IV SCH (10:24)
[2018-01-01] MEDS: APIXABAN 2.5 MG TABLET PO SCH ×2 (10:24→18:00)
--- NOTE | 2018-01-01 11:23 | PDOC PROGRESS REPORT ---
Subjective Progress Note for:: 01/01/18 Subjective:: intubated and sedated Reason For Visit: ACUTE RESPIRATORY FAILURE, ESRD, HIV POSITIVE Physical Exam Vital Signs: Temp Pulse Resp BP Pulse Ox 99.3 F 90 18 156/101 H 98 01/01/18 08:00 01/01/18 08:00 01/01/18 08:00 01/01/18 06:05 01/01/18 08:00 Intake & Output 12/31/17 01/01/18 01/02/18 06:59 06:59 06:59 Intake Total 328 Output Total 3113 22 Balance -2785 -22 Weight 64.4 kg General appearance: PRESENT: no acute distress, disheveled Head exam: PRESENT: atraumatic, normocephalic Eye exam: PRESENT: conjunctiva pale. ABSENT: EOMI, nystagmus, periorbital swelling, scleral icterus Mouth exam: PRESENT: dry mucosa, neck supple, tongue midline, other - ET tube Neck exam: ABSENT: carotid bruit, JVD, lymphadenopathy, thyromegaly, tracheal deviation, tracheostomy Respiratory exam: PRESENT: decreased breath sounds, prolonged expiratory phas, rhonchi, unlabored. ABSENT: retraction, stridor, tachypnea Cardiovascular exam: PRESENT: RRR, +S1, +S2 Pulses: PRESENT: normal radial pulses GI/Abdominal exam: PRESENT: diminished bowel sounds, soft Gentrourinary exam: PRESENT: urethral discharge Extremities exam: ABSENT: calf tenderness, clubbing, joint swelling Musculoskeletal exam: ABSENT: ambulatory, deformity, dislocation Neurological exam: ABSENT: awake, oriented to person Skin exam: PRESENT: dry, warm Results Laboratory Results: 01/01/18 03:46 01/01/18 03:46 12/31/17 12/31/17 12/31/17 10:25 10:49 13:00 WBC RBC Hgb Hct MCV MCH MCHC RDW Plt Count Seg Neutrophils % Lymphocytes % Monocytes % Eosinophils % Basophils % Absolute Neutrophils Absolute Lymphocytes Absolute Monocytes Absolute Eosinophils Absolute Basophils Carbonic Acid 1.55 H 1.28 HCO3/H2CO3 Ratio 13:1 16:1 ABG pH 7.21 L 7.32 L ABG pCO2 51.5 H 42.4 ABG pO2 84.0 65.5 L ABG HCO3 20.3 21.5 ABG O2 Saturation 94.1 91.4 L ABG Base Excess -7.6 -4.4 FiO2 35 35% Sodium Potassium Chloride Carbon Dioxide Anion Gap BUN Creatinine Est GFR ( Amer) Est GFR (Non-Af Amer) Glucose Calcium Phosphorus Magnesium Urine Color YELLOW Urine Appearance CLOUDY Urine pH 7.0 Ur Specific [place] 1.015 Urine Protein >=500 H Urine Glucose (UA) 50 H Urine Ketones NEGATIVE Urine Blood NEGATIVE Urine Nitrite NEGATIVE Ur Leukocyte Esterase NEGATIVE Urine WBC (Auto) 4 Urine RBC (Auto) 2 01/01/18 01/01/18 01/01/18 03:46 03:46 05:15 WBC 6.6 RBC 4.26 L Hgb 13.1 L Hct 38.6 MCV 91 MCH 30.7 MCHC 33.9 RDW 15.3 H Plt Count 144 L Seg Neutrophils % 52.2 Lymphocytes % 32.7 Monocytes % 14.4 H Eosinophils % 0.2 Basophils % 0.5 Absolute Neutrophils 3.5 Absolute Lymphocytes 2.2 Absolute Monocytes 1.0 Absolute Eosinophils 0.0 Absolute Basophils 0.0 Carbonic Acid 1.16 HCO3/H2CO3 Ratio 22:1 ABG pH 7.44 ABG pCO2 38.7 ABG pO2 114.3 H ABG HCO3 25.6 ABG O2 Saturation 98.3 H ABG Base Excess 1.5 FiO2 40% Sodium 144.0 Potassium 4.7 Chloride 106 Carbon Dioxide 24 Anion Gap 14 BUN 43 H Creatinine 6.00 H Est GFR ( Amer) 12 L Est GFR (Non-Af Amer) 10 L Glucose 96 Calcium 8.9 Phosphorus 5.0 H Magnesium 2.2 Urine Color Urine Appearance Urine pH Ur Specific [place] Urine Protein Urine Glucose (UA) Urine Ketones Urine Blood Urine Nitrite Ur Leukocyte Esterase Urine WBC (Auto) Urine RBC (Auto) Impressions: KUB X-Ray 12/31/17 08:33 IMPRESSION: NG tube with its tip in the left upper quadrant presumably in the fundus of the stomach Chest X-Ray 01/01/18 06:00 IMPRESSION: 1. No acute pulmonary process identified. Cardiomegaly. Assessment & Plan - Diagnosis (1) Hypertensive urgency Is this a current diagnosis for this admission?: Yes Plan: Appears to be resolved with after nitroglycerin drip (2) Flash pulmonary edema Is this a current diagnosis for this admission?: Yes Plan: improved (3) Acute respiratory failure with hypoxia Is this a current diagnosis for this admission?: Yes (4) Chronic kidney disease, stage V (very severe) Is this a current diagnosis for this admission?: Yes Plan: Retaining PCO2 mechanical ventilation as required hopefully he will be able to maintain his appointment and get hemodialysis today (5) COPD exacerbation Is this a current diagnosis for this admission?: Yes Plan: Bronchodilator therapy (6) HIV (human immunodeficiency virus infection) Is this a current diagnosis for this admission?: Yes Plan: Check CD4 CD8 and/or viral load - Time Total Critical Time (Minutes): 50
[2018-01-01] MEDS ORDERED: ACETAMINOPHEN SOLN 325 MG/10.15 ML UDCUP NG PRN (14:12)
--- NOTE | 2018-01-01 17:49 | PDOC PROGRESS REPORT ---
Subjective Progress Note for:: 01/01/18 Subjective:: Admitted with respiratory failure and currently intubated Reason For Visit: ACUTE RESPIRATORY FAILURE, ESRD, HIV POSITIVE Physical Exam Vital Signs: Temp Pulse Resp BP Pulse Ox 99.5 F 92 18 143/96 H 92 01/01/18 14:00 01/01/18 14:00 01/01/18 14:00 01/01/18 14:00 01/01/18 14:00 Intake & Output 12/31/17 01/01/18 01/02/18 06:59 06:59 06:59 Intake Total 328 Output Total 3113 147 Balance -3735 -147 Weight 64.4 kg General appearance: PRESENT: no acute distress, other - On mechanical ventilation Head exam: PRESENT: atraumatic Mouth exam: PRESENT: dry mucosa Respiratory exam: PRESENT: unlabored, other - Intubated. ABSENT: retraction, wheezes Cardiovascular exam: PRESENT: RRR. ABSENT: diastolic murmur, rubs, systolic murmur GI/Abdominal exam: PRESENT: normal bowel sounds, soft, tenderness. ABSENT: distended, guarding, mass, organolmegaly, rebound Gentrourinary exam: PRESENT: indwelling catheter Extremities exam: PRESENT: other - Left AKA and right below-knee amputation Neurological exam: PRESENT: other - Sedated Results Laboratory Results: 01/01/18 03:46 01/01/18 03:46 01/01/18 01/01/18 01/01/18 03:46 03:46 05:15 WBC 6.6 RBC 4.26 L Hgb 13.1 L Hct 38.6 MCV 91 MCH 30.7 MCHC 33.9 RDW 15.3 H Plt Count 144 L Seg Neutrophils % 52.2 Lymphocytes % 32.7 Monocytes % 14.4 H Eosinophils % 0.2 Basophils % 0.5 Absolute Neutrophils 3.5 Absolute Lymphocytes 2.2 Absolute Monocytes 1.0 Absolute Eosinophils 0.0 Absolute Basophils 0.0 Carbonic Acid 1.16 HCO3/H2CO3 Ratio 22:1 ABG pH 7.44 ABG pCO2 38.7 ABG pO2 114.3 H ABG HCO3 25.6 ABG O2 Saturation 98.3 H ABG Base Excess 1.5 FiO2 40% Sodium 144.0 Potassium 4.7 Chloride 106 Carbon Dioxide 24 Anion Gap 14 BUN 43 H Creatinine 6.00 H Est GFR ( Amer) 12 L Est GFR (Non-Af Amer) 10 L Glucose 96 Calcium 8.9 Phosphorus 5.0 H Magnesium 2.2 Impressions: KUB X-Ray 12/31/17 08:33 IMPRESSION: NG tube with its tip in the left upper quadrant presumably in the fundus of the stomach Chest X-Ray 01/01/18 06:00 IMPRESSION: 1. No acute pulmonary process identified. Cardiomegaly. Assessment & Plan - Diagnosis (1) Respiratory failure Qualifiers: Chronicity: acute on chronic Respiratory failure complication: hypoxia Qualified Code(s): J96.21 - Acute and chronic respiratory failure with hypoxia Is this a current diagnosis for this admission?: Yes Plan: Appreciate market master input. We will continue with mechanical ventilation and wean as tolerated (2) ESRD (end stage renal disease) on dialysis Is this a current diagnosis for this admission?: Yes Plan: Continue hemodialysis as per nephrology orders (3) HIV (human immunodeficiency virus infection) Is this a current diagnosis for this admission?: Yes Plan: We will continue his HIDAL[place] ART medications (4) Acute on chronic systolic and diastolic heart failure, NYHA class 3 Is this a current diagnosis for this admission?: Yes Plan: Although patient came with pulmonary edema this is likely related to volume overload from his ESRD. Echocardiogram done in July of this year reveal mild to moderate reduced LV ejection fraction at about 40% as well as grade 2 diastolic dysfunction with mild to moderate global hypokinesis of the left ventricle. His BNP is more than 30,000 however this is of limited value due to his kidney function as well as his other comorbidities. I will hold off obtaining another echo at this time. (5) Acute respiratory failure with hypoxia Is this a current diagnosis for this admission?: Yes Plan: There is concern that patient may also have had cardiogenic edema due to a drug use as there is a history of substance abuse. Drug screen is positive for cocaine. As patient apparently had not missed any dialysis yet this is a possible etiology for his pulmonary edema (6) Flash pulmonary edema Is this a current diagnosis for this admission?: Yes Plan: Likely multifactorial including cocaine, ESRD and CHF (7) Transaminitis Is this a current diagnosis for this admission?: Yes (8) Hypertensive urgency, malignant Is this a current diagnosis for this admission?: Yes Plan: This goes along with cocaine ingestion. Blood pressure has been better controlled today. Will adjust his medications for optimal blood pressure control - Time Time Spent with patient: 25-34 minutes Medications reviewed and adjusted accordingly: Yes Anticipated discharge: Home Within: within 72 hours - Inpatient Certification Based on my medical assessment, after consideration of the patient's comorbidities, presenting symptoms, or acuity I expect that the services needed warrant INPATIENT care.: Yes Medical Necessity: Risk of Complication if Not Cared For in Hospital, Risk of Diagnosis Which Will Require Inpatient Eval/Care/Monitoring, Other - Mechanical ventilation
[2018-01-01] MEDS: MIDAZOLAM HCL 50 MG/100 ML RTUINJ IV-INFUSE PRN (18:01)
[2018-01-02] MEDS: PROPOFOL 1,000 MG/100 ML INFUS..BTL IV PRN ×3 (03:46→22:21)
[2018-01-02 04:17] LABS: ABSOLUTE BASOPHILS # (AUTO) 0.1 10^3/uL (0.0-0.2); ABSOLUTE EOSINOPHILS # (AUTO) 0.1 10^3/uL (0.0-0.6); ABSOLUTE LYMPHOCYTES (AUTO) 1.7 10^3/uL (0.5-4.7); ABSOLUTE MONOCYTES (AUTO) 0.9 10^3/uL (0.1-1.4); ABSOLUTE NEUT (AUTO) 4.5 10^3/uL (1.7-8.2); BASOPHILS % (AUTO) 0.9 % (0-2); EOSINOPHILS % (AUTO) 0.8 % (0-6); HEMATOCRIT 38.4 % (37.9-51.0); HEMOGLOBIN 12.9 g/dL (13.5-17.0); LYMPHOCYTES % (AUTO) 23.1 % (13-45); MEAN CORPUSCULAR HEMOGLOBIN 30.5 pg (27.0-33.4); MEAN CORPUSCULAR HGB CONC 33.7 g/dL (32.0-36.0); MEAN CORPUSCULAR VOLUME 91 fl (80-97); MONOCYTES % (AUTO) 12.4 % (3-13); PLATELET COUNT 143 10^3/uL (150-450); RED BLOOD COUNT 4.23 10^6/uL (4.35-5.55); RED CELL DISTRIBUTION WIDTH 15.4 % (11.5-14.0); SEGMENTED NEUTROPHILS % (AUTO) 62.8 % (42-78); TOTAL CELLS COUNTED % (AUTO) 100 %; WHITE BLOOD COUNT 7.1 10^3/uL (4.0-10.5)
[2018-01-02 04:34] LABS: ANION GAP 17 (5-19); BLOOD UREA NITROGEN 54 mg/dL (7-20); CALCIUM 8.5 mg/dL (8.4-10.2); CARBON DIOXIDE 21 mmol/L (22-30); CHLORIDE 106 mmol/L (98-107); GLUCOSE 96 mg/dL (75-110); POTASSIUM 4.8 mmol/L (3.6-5.0)
[2018-01-02 05:59] LABS: ARTERIAL BLOOD BASE EXCESS -2.5 mmol/L; ARTERIAL BLOOD HCO3 21.2 mmol/L (20-26); ARTERIAL BLOOD PCO2 33.3 mmHg (35-45); ARTERIAL BLOOD PH 7.42 (7.35-7.45); ARTERIAL BLOOD PO2 88.7 mmHg (80-100); ARTERIAL BLOOD TOTAL CO2 22.2 mmol/L (23-27)
[2018-01-02 06:04] LABS: ARTERIAL BLOOD FIO2 28%
[2018-01-02] MEDS ORDERED: PHENYLEPHRINE HCL INJ/PF 10 MG/1 ML SDV ONE (08:09)
[2018-01-02] MEDS ORDERED: HEPARIN SOD (PORCINE) 1,000 UNIT/ML 10 ML VIAL IV PRN (08:13)
--- NOTE | 2018-01-02 09:01 | RADIOLOGY REPORT (SQ) ---
EXAM DESCRIPTION: CHEST SINGLE VIEW COMPLETED DATE/TIME: 01/02/2018 5:12 am REASON FOR STUDY: resp failure COMPARISON: 01/01/2018. EXAM PARAMETERS: NUMBER OF VIEWS: One view. TECHNIQUE: Single frontal radiographic view of the chest acquired. RADIATION DOSE: NA LIMITATIONS: None. FINDINGS: LUNGS AND PLEURA: No opacities, masses or pneumothorax. No pleural effusion. MEDIASTINUM AND HILAR STRUCTURES: No masses. Contour normal. HEART AND VASCULAR STRUCTURES: Heart normal in size. Normal vasculature. BONES: No acute findings. HARDWARE: Stable endotracheal tube, nasogastric tube, and central line. Surgical clips. OTHER: No other significant finding. IMPRESSION: STABLE APPEARANCE. NO ACUTE RADIOGRAPHIC FINDING IN THE CHEST. TECHNICAL DOCUMENTATION: JOB ID: [id number] [employer]- All Rights Reserved Reading location - IP/workstation name: [email or web address]
[2018-01-02] MEDS: ACETAMINOPHEN SOLN 325 MG/10.15 ML UDCUP NG PRN ×2 (09:35→19:48)
--- NOTE | 2018-01-02 11:11 | PDOC PROGRESS REPORT ---
Subjective Progress Note for:: 01/02/18 Subjective:: intubated and sedated Reason For Visit: ACUTE RESPIRATORY FAILURE, ESRD, HIV POSITIVE Physical Exam Vital Signs: Temp Pulse Resp BP Pulse Ox 99.3 F 99 20 183/108 H 100 01/02/18 08:00 01/02/18 08:00 01/02/18 08:00 01/02/18 08:00 01/02/18 08:00 Intake & Output 01/01/18 01/02/18 01/03/18 06:59 06:59 06:59 Intake Total 328 472 Output Total 3113 397 25 Balance -2785 75 -25 Weight 64.4 kg 62.5 kg General appearance: PRESENT: no acute distress, disheveled. ABSENT: cooperative Head exam: PRESENT: atraumatic, normocephalic Eye exam: PRESENT: conjunctiva pale, EOMI. ABSENT: nystagmus, periorbital swelling, scleral icterus Mouth exam: PRESENT: dry mucosa, neck supple, tongue midline, other - ET tube Neck exam: ABSENT: carotid bruit, JVD, lymphadenopathy, thyromegaly, tracheal deviation, tracheostomy Respiratory exam: PRESENT: decreased breath sounds, prolonged expiratory phas, rhonchi, unlabored. ABSENT: retraction, stridor Cardiovascular exam: PRESENT: RRR, +S1, +S2 Pulses: PRESENT: normal radial pulses GI/Abdominal exam: PRESENT: hypoactive bowel sounds, soft Extremities exam: ABSENT: calf tenderness, clubbing Musculoskeletal exam: ABSENT: ambulatory, deformity, dislocation Neurological exam: PRESENT: awake. ABSENT: oriented to person, oriented to place, oriented to time, oriented to situation Skin exam: PRESENT: dry, warm Results Laboratory Results: 01/02/18 04:01 01/02/18 04:01 01/02/18 01/02/18 01/02/18 04:01 04:01 05:50 WBC 7.1 RBC 4.23 L Hgb 12.9 L Hct 38.4 MCV 91 MCH 30.5 MCHC 33.7 RDW 15.4 H Plt Count 143 L Seg Neutrophils % 62.8 Lymphocytes % 23.1 Monocytes % 12.4 Eosinophils % 0.8 Basophils % 0.9 Absolute Neutrophils 4.5 Absolute Lymphocytes 1.7 Absolute Monocytes 0.9 Absolute Eosinophils 0.1 Absolute Basophils 0.1 Carbonic Acid 1.00 L HCO3/H2CO3 Ratio 21:1 ABG pH 7.42 ABG pCO2 33.3 L ABG pO2 88.7 ABG HCO3 21.2 ABG O2 Saturation 97.0 ABG Base Excess -2.5 FiO2 28% Sodium 144.0 Potassium 4.8 Chloride 106 Carbon Dioxide 21 L Anion Gap 17 BUN 54 H Creatinine 8.17 H Est GFR ( Amer) 8 L Est GFR (Non-Af Amer) 7 L Glucose 96 Calcium 8.5 Magnesium 2.2 Impressions: KUB X-Ray 12/31/17 08:33 IMPRESSION: NG tube with its tip in the left upper quadrant presumably in the fundus of the stomach Assessment & Plan - Diagnosis (1) Hypertensive urgency Is this a current diagnosis for this admission?: Yes Plan: Appears to be resolved with after nitroglycerin drip (2) Flash pulmonary edema Is this a current diagnosis for this admission?: Yes (3) Acute respiratory failure with hypoxia Is this a current diagnosis for this admission?: Yes (4) Chronic kidney disease, stage V (very severe) Is this a current diagnosis for this admission?: Yes Plan: Labs- All tests 24 hr 12/31/17 12/31/17 01/01/18 08:08 08:08 03:46 BUN 56 H 43 H Creatinine 6.49 H 6.00 H NT-Pro-B Natriuret Pep 07322 H 01/02/18 04:01 BUN 54 H Creatinine 8.17 H NT-Pro-B Natriuret Pep (5) COPD exacerbation Is this a current diagnosis for this admission?: Yes Plan: Bronchodilator therapy (6) HIV (human immunodeficiency virus infection) Is this a current diagnosis for this admission?: Yes Plan: Check CD4 CD8 and/or viral load - Time Total Critical Time (Minutes): 45
--- NOTE | 2018-01-02 11:15 | PDOC PROGRESS REPORT ---
Subjective Progress Note for:: 01/02/18 Reason For Visit: ACUTE RESPIRATORY FAILURE, ESRD, HIV POSITIVE was seen on dialysis.Still intubated and in the process of starting weaning .Orders were reviewed with treating sausage smoker.Labs and medications were reviewed. Physical Exam Vital Signs: Temp Pulse Resp BP Pulse Ox 99.5 F 103 H 18 137/90 H 99 01/02/18 10:00 01/02/18 10:00 01/02/18 10:00 01/02/18 10:00 01/02/18 10:00 Intake & Output 01/01/18 01/02/18 01/03/18 06:59 06:59 06:59 Intake Total 328 472 Output Total 3113 397 65 Balance -2785 75 -65 Weight 64.4 kg 62.5 kg General appearance: PRESENT: no acute distress Respiratory exam: PRESENT: clear to auscultation ramila. ABSENT: crackles, rhonchi Cardiovascular exam: PRESENT: +S1, +S2, systolic murmur GI/Abdominal exam: PRESENT: normal bowel sounds, soft. ABSENT: distended, organomegaly, tenderness Results Laboratory Results: 01/02/18 04:01 01/02/18 04:01 01/02/18 01/02/18 01/02/18 04:01 04:01 05:50 WBC 7.1 RBC 4.23 L Hgb 12.9 L Hct 38.4 MCV 91 MCH 30.5 MCHC 33.7 RDW 15.4 H Plt Count 143 L Seg Neutrophils % 62.8 Lymphocytes % 23.1 Monocytes % 12.4 Eosinophils % 0.8 Basophils % 0.9 Absolute Neutrophils 4.5 Absolute Lymphocytes 1.7 Absolute Monocytes 0.9 Absolute Eosinophils 0.1 Absolute Basophils 0.1 Carbonic Acid 1.00 L HCO3/H2CO3 Ratio 21:1 ABG pH 7.42 ABG pCO2 33.3 L ABG pO2 88.7 ABG HCO3 21.2 ABG O2 Saturation 97.0 ABG Base Excess -2.5 FiO2 28% Sodium 144.0 Potassium 4.8 Chloride 106 Carbon Dioxide 21 L Anion Gap 17 BUN 54 H Creatinine 8.17 H Est GFR ( Amer) 8 L Est GFR (Non-Af Amer) 7 L Glucose 96 Calcium 8.5 Magnesium 2.2 Impressions: KUB X-Ray 12/31/17 08:33 IMPRESSION: NG tube with its tip in the left upper quadrant presumably in the fundus of the stomach Chest X-Ray 01/02/18 06:00 IMPRESSION: STABLE APPEARANCE. NO ACUTE RADIOGRAPHIC FINDING IN THE CHEST. Assessment & Plan - Diagnosis (1) ESRD (end stage renal disease) on dialysis Is this a current diagnosis for this admission?: Yes Plan: Patient still intubated but undergoing HD without any issues.VS stable.Its being supervised to ensure a safe and smooth procedure. Orders were discussed with treating RN.Plan to UF 1-2 L as tolerated. (2) HIV (human immunodeficiency virus infection) Is this a current diagnosis for this admission?: Yes Plan: As per hospitalist. (3) Acute on chronic combined systolic and diastolic congestive heart failure Plan: Improving.Continue current meds. (4) Acute respiratory failure with hypoxia Is this a current diagnosis for this admission?: Yes Plan: Stable and being weaned. (5) Cocaine abuse Plan: Unfortunate. (6) History of DVT (deep vein thrombosis) Plan: ON DVT prophylaxis. (7) Hyperkalemia Plan: Resolved. (8) Hypertensive emergency Plan: Resolved.Likely cocaine induced?.
[2018-01-02] MEDS: MIDAZOLAM HCL 50 MG/100 ML RTUINJ IV-INFUSE PRN ×2 (11:16→22:22)
[2018-01-02] MEDS: APIXABAN 2.5 MG TABLET PO SCH (13:02)
[2018-01-02] MEDS: CALCITRIOL 0.25 MCG CAPSULE PO SCH (13:02)
[2018-01-02] MEDS: PANTOPRAZOLE SODIUM 40 MG VIAL IV SCH (13:03)
--- NOTE | 2018-01-02 13:54 | PDOC PROGRESS REPORT ---
Subjective Progress Note for:: 01/02/18 Subjective:: Admitted with respiratory failure and still intubated and sedated, unable to obtain any information Reason For Visit: ACUTE RESPIRATORY FAILURE, ESRD, HIV POSITIVE Physical Exam Vital Signs: Temp Pulse Resp BP Pulse Ox 99.5 F 104 H 18 163/103 H 99 01/02/18 13:00 01/02/18 13:00 01/02/18 13:00 01/02/18 13:00 01/02/18 13:00 Intake & Output 01/01/18 01/02/18 01/03/18 06:59 06:59 06:59 Intake Total 328 472 Output Total 3113 397 115 Balance -2785 75 -115 Weight 64.4 kg 62.5 kg General appearance: PRESENT: no acute distress, well-developed, well-nourished, other - intubated Head exam: PRESENT: atraumatic, normocephalic Eye exam: PRESENT: EOMI, PERRLA, scleral icterus Ear exam: PRESENT: normal external ear exam Mouth exam: PRESENT: moist Neck exam: ABSENT: carotid bruit, JVD, lymphadenopathy, thyromegaly Respiratory exam: PRESENT: decreased breath sounds. ABSENT: rales, rhonchi, wheezes Cardiovascular exam: PRESENT: RRR. ABSENT: diastolic murmur, rubs, systolic murmur Pulses: PRESENT: normal dorsalis pedis pul Vascular exam: PRESENT: normal capillary refill GI/Abdominal exam: PRESENT: normal bowel sounds, soft. ABSENT: distended, guarding, mass, organolmegaly, rebound Rectal exam: PRESENT: deferred Extremities exam: PRESENT: full ROM. ABSENT: calf tenderness, clubbing, pedal edema Musculoskeletal exam: PRESENT: other - L AKA, R BKA Neurological exam: PRESENT: other - sedated. ABSENT: motor sensory deficit Psychiatric exam: ABSENT: homicidal ideation, suicidal ideation Skin exam: PRESENT: intact, warm. ABSENT: cyanosis, rash Results Laboratory Results: 01/02/18 04:01 01/02/18 04:01 01/02/18 01/02/18 01/02/18 04:01 04:01 05:50 WBC 7.1 RBC 4.23 L Hgb 12.9 L Hct 38.4 MCV 91 MCH 30.5 MCHC 33.7 RDW 15.4 H Plt Count 143 L Seg Neutrophils % 62.8 Lymphocytes % 23.1 Monocytes % 12.4 Eosinophils % 0.8 Basophils % 0.9 Absolute Neutrophils 4.5 Absolute Lymphocytes 1.7 Absolute Monocytes 0.9 Absolute Eosinophils 0.1 Absolute Basophils 0.1 Carbonic Acid 1.00 L HCO3/H2CO3 Ratio 21:1 ABG pH 7.42 ABG pCO2 33.3 L ABG pO2 88.7 ABG HCO3 21.2 ABG O2 Saturation 97.0 ABG Base Excess -2.5 FiO2 28% Sodium 144.0 Potassium 4.8 Chloride 106 Carbon Dioxide 21 L Anion Gap 17 BUN 54 H Creatinine 8.17 H Est GFR ( Amer) 8 L Est GFR (Non-Af Amer) 7 L Glucose 96 Calcium 8.5 Magnesium 2.2 12/31/17 16:30 Tracheal Aspirate Gram Stain - Final 12/31/17 16:30 Tracheal Aspirate Sputum Culture - Final NORMAL FADI Impressions: KUB X-Ray 12/31/17 08:33 IMPRESSION: NG tube with its tip in the left upper quadrant presumably in the fundus of the stomach Chest X-Ray 01/02/18 06:00 IMPRESSION: STABLE APPEARANCE. NO ACUTE RADIOGRAPHIC FINDING IN THE CHEST. Assessment & Plan - Diagnosis (1) Respiratory failure Qualifiers: Chronicity: acute on chronic Respiratory failure complication: hypoxia Qualified Code(s): J96.21 - Acute and chronic respiratory failure with hypoxia Is this a current diagnosis for this admission?: Yes (2) ESRD (end stage renal disease) on dialysis Is this a current diagnosis for this admission?: Yes (3) HIV (human immunodeficiency virus infection) Is this a current diagnosis for this admission?: Yes (4) Acute on chronic systolic and diastolic heart failure, NYHA class 3 Is this a current diagnosis for this admission?: Yes (5) Acute respiratory failure with hypoxia Is this a current diagnosis for this admission?: Yes (6) Flash pulmonary edema Is this a current diagnosis for this admission?: Yes (7) Transaminitis Is this a current diagnosis for this admission?: Yes (8) Hypertensive urgency, malignant Is this a current diagnosis for this admission?: Yes - Time Time Spent with patient: 15-24 minutes Medications reviewed and adjusted accordingly: Yes Anticipated discharge: Home Within: within 72 hours - Inpatient Certification Based on my medical assessment, after consideration of the patient's comorbidities, presenting symptoms, or acuity I expect that the services needed warrant INPATIENT care.: Yes Medical Necessity: Other - Mechanical Ventilation
[2018-01-02] MEDS ORDERED: (PENDING PHARMACY ID) (Isosorbide Mononitrate [Isosorbide Mononitrate Er] 120 MG) PO SCH (14:00)
[2018-01-02] MEDS ORDERED: (PENDING PHARMACY ID) (Hydralazine Hcl [Hydralazine Hcl] 100 MG) PO SCH (14:00)
[2018-01-02] MEDS ORDERED: METOPROLOL TARTRATE PF/INJ 5 MG/5 ML SDV IV ONE (15:10)
[2018-01-02] MEDS ORDERED: CLONIDINE 0.3 MG/24 HR PATCH.TDWK TD SCH (16:00)
[2018-01-02] MEDS: APIXABAN 2.5 MG TABLET NG SCH (17:18)
--- NOTE | 2018-01-02 19:32 | EKG REPORT ---
SEVERITY:- ABNORMAL ECG - SINUS TACHYCARDIA MULTIFORM VENTRICULAR PREMATURE COMPLEXES BIATRIAL ABNORMALITIES BORDERLINE LEFT AXIS DEVIATION ABNORMAL T, CONSIDER ISCHEMIA, ANT-LAT LEADS BORDERLINE PROLONGED QT INTERVAL : Confirmed by: Marco Young MD 02-Jan-2018 19:32:26
[2018-01-02] MEDS: HYDRALAZINE HCL 50 MG TABLET NG SCH (21:27)
[2018-01-02] MEDS ORDERED: ATORVASTATIN CALCIUM 10 MG TABLET NG SCH (22:00)
[2018-01-02] MEDS ORDERED: CARVEDILOL 12.5 MG TABLET NG SCH (22:00)
[2018-01-02] MEDS ORDERED: HYDRALAZINE HCL 50 MG TABLET PO SCH (22:00)
[2018-01-02] MEDS ORDERED: CARVEDILOL 12.5 MG TABLET PO SCH (22:00)
[2018-01-02] MEDS ORDERED: ATORVASTATIN CALCIUM 10 MG TABLET PO SCH (22:00)
[2018-01-03 04:26] LABS: HEMATOCRIT 39.5 % (37.9-51.0); HEMOGLOBIN 13.1 g/dL (13.5-17.0); MEAN CORPUSCULAR HGB CONC 33.2 g/dL (32.0-36.0); MEAN CORPUSCULAR VOLUME 90 fl (80-97); PLATELET COUNT 153 10^3/uL (150-450); RED BLOOD COUNT 4.39 10^6/uL (4.35-5.55); RED CELL DISTRIBUTION WIDTH 15.2 % (11.5-14.0); WHITE BLOOD COUNT 6.3 10^3/uL (4.0-10.5)
[2018-01-03 04:38] LABS: BLOOD UREA NITROGEN 33 mg/dL (7-20); CALCIUM 8.3 mg/dL (8.4-10.2); CARBON DIOXIDE 23 mmol/L (22-30); CHLORIDE 100 mmol/L (98-107); GLUCOSE 96 mg/dL (75-110); PHOSPHORUS 6.6 mg/dL (2.5-4.5); POTASSIUM 4.2 mmol/L (3.6-5.0)
[2018-01-03 04:51] LABS: SODIUM 142.5 mmol/L (137-145)
[2018-01-03 04:54] LABS: ANION GAP 20 (5-19)
[2018-01-03 04:58] LABS: ABSOLUTE LYMPHOCYTES# (MANUAL) 1.4 10^3/uL (0.5-4.7); ABSOLUTE MONOCYTES # (MANUAL) 0.6 10^3/uL (0.1-1.4); ABSOLUTE NEUTROPHILS# (MANUAL) 4.2 10^3/uL (1.7-8.2); BASOPHILS % (MANUAL) 1 % (0-2); EOSINOPHILS % (MANUAL) 0 % (0-6); LYMPHOCYTES % (MANUAL) 23 % (13-45); MONOCYTES % (MANUAL) 9 % (3-13); SEGMENTED NEUTROPHILS % (MAN) 67 % (42-78); TOTAL CELLS COUNTED 100
[2018-01-03 04:59] LABS: PLATELET COMMENT ADEQUATE; RBC MORPHOLOGY COMMENT NORMO-CYTIC/CHROMIC
[2018-01-03 05:02] LABS: ARTERIAL BLOOD BASE EXCESS 2.9 mmol/L; ARTERIAL BLOOD HCO3 25.5 mmol/L (20-26); ARTERIAL BLOOD O2 SATURATION 97.8 % (94-98); ARTERIAL BLOOD PCO2 33.2 mmHg (35-45); ARTERIAL BLOOD PO2 93.7 mmHg (80-100); ARTERIAL BLOOD TOTAL CO2 26.6 mmol/L (23-27)
[2018-01-03 05:04] LABS: ARTERIAL BLOOD FIO2 28%
[2018-01-03] MEDS: PROPOFOL 1,000 MG/100 ML INFUS..BTL IV PRN (05:26)
[2018-01-03] MEDS: HYDRALAZINE HCL 50 MG TABLET NG SCH ×2 (05:27→14:45)
[2018-01-03] MEDS ORDERED: METOPROLOL TARTRATE PF/INJ 5 MG/5 ML SDV IV ONE ×2 (05:56→06:15)
[2018-01-03] MEDS ORDERED: CARVEDILOL 12.5 MG TABLET NG ONE (08:00)
--- NOTE | 2018-01-03 08:34 | RADIOLOGY REPORT (SQ) ---
EXAM DESCRIPTION: CHEST SINGLE VIEW COMPLETED DATE/TIME: 01/03/2018 6:52 am REASON FOR STUDY: resp failure COMPARISON: Chest films 01/02/2018, 01/01/2018, 12/31/2017, 12/22/2017 EXAM PARAMETERS: NUMBER OF VIEWS: One view. TECHNIQUE: Single frontal radiographic view of the chest acquired. RADIATION DOSE: NA LIMITATIONS: None. FINDINGS: LUNGS AND PLEURA: Hyperinflated. Grossly free of focal infiltrates. No pleural effusion. No pneumothorax. MEDIASTINUM AND HILAR STRUCTURES: No masses. Contour normal. HEART AND VASCULAR STRUCTURES: Heart normal in size. Normal vasculature. BONES: No acute findings. HARDWARE: And endotracheal tube tip 7 cm above the carmen. Left-sided central venous dialysis cathet er tip in the superior vena cava. Nasogastric tube tip and side port in the stomach. Old surgical c lips in the right axilla. OTHER: No other significant finding. IMPRESSION: No focal infiltrates. Lungs are hyperlucent and hyperinflated PICC clear. Tubes and lines in good positioning. TECHNICAL DOCUMENTATION: JOB ID: [id number] [employer]- All Rights Reserved Reading location - IP/workstation name: [email or web address]
[2018-01-03] MEDS ORDERED: (PENDING PHARMACY ID) (Pravastatin Sodium [Pravachol] 40 MG) PO SCH (10:00)
[2018-01-03] MEDS ORDERED: AMLODIPINE BESYLATE 10 MG TABLET NG SCH (10:00)
[2018-01-03] MEDS: CALCITRIOL 0.25 MCG CAPSULE PO SCH (10:27)
[2018-01-03] MEDS: APIXABAN 2.5 MG TABLET NG SCH (10:27)
[2018-01-03] MEDS: PANTOPRAZOLE SODIUM 40 MG VIAL IV SCH (10:28)
[2018-01-03] MEDS: ISOSORBIDE MONONITRATE 60 MG TAB.ER.24H PO SCH (10:30)
--- NOTE | 2018-01-03 11:26 | PDOC PROGRESS REPORT ---
Subjective Progress Note for:: 01/03/18 Subjective:: intubated and sedated Reason For Visit: ACUTE RESPIRATORY FAILURE, ESRD, HIV POSITIVE Physical Exam Vital Signs: Temp Pulse Resp BP Pulse Ox 97.7 F 80 18 181/117 H 97 01/03/18 06:00 01/03/18 04:00 01/03/18 06:00 01/03/18 05:48 01/03/18 06:00 Intake & Output 01/02/18 01/03/18 01/04/18 06:59 06:59 06:59 Intake Total 472 468 Output Total 397 1275 30 Balance 75 -807 -30 Weight 62.5 kg 60 kg General appearance: PRESENT: no acute distress, disheveled Head exam: PRESENT: atraumatic, normocephalic Eye exam: PRESENT: conjunctiva pale. ABSENT: nystagmus, periorbital swelling, scleral icterus Mouth exam: PRESENT: dry mucosa, neck supple, tongue midline, other - ET tube in place Neck exam: ABSENT: carotid bruit, JVD, lymphadenopathy, thyromegaly, tracheal deviation, tracheostomy Respiratory exam: PRESENT: decreased breath sounds, prolonged expiratory phas, rhonchi, unlabored. ABSENT: rales, retraction, stridor, tachypnea Cardiovascular exam: PRESENT: RRR, +S1, +S2. ABSENT: tachycardia Pulses: PRESENT: normal radial pulses GI/Abdominal exam: PRESENT: diminished bowel sounds, soft Extremities exam: ABSENT: calf tenderness, clubbing Musculoskeletal exam: ABSENT: ambulatory, deformity, dislocation Neurological exam: ABSENT: awake Skin exam: PRESENT: dry, warm Results Laboratory Results: 01/03/18 04:03 01/03/18 04:03 01/03/18 01/03/18 01/03/18 04:03 04:03 04:54 WBC 6.3 RBC 4.39 Hgb 13.1 L Hct 39.5 MCV 90 MCH 30.0 MCHC 33.2 RDW 15.2 H Plt Count 153 Seg Neutrophils % Not Reportable Lymphocytes % Not Reportable Monocytes % Not Reportable Eosinophils % Not Reportable Basophils % Not Reportable Absolute Neutrophils Not Reportable Absolute Lymphocytes Not Reportable Absolute Monocytes Not Reportable Absolute Eosinophils Not Reportable Absolute Basophils Not Reportable Carbonic Acid 1.00 L HCO3/H2CO3 Ratio 25:1 ABG pH 7.50 H ABG pCO2 33.2 L ABG pO2 93.7 ABG HCO3 25.5 ABG O2 Saturation 97.8 ABG Base Excess 2.9 FiO2 28% Sodium 142.5 Potassium 4.2 Chloride 100 Carbon Dioxide 23 Anion Gap 20 H BUN 33 H Creatinine 6.52 H Est GFR ( Amer) 10 L Est GFR (Non-Af Amer) 9 L Glucose 96 Calcium 8.3 L Phosphorus 6.6 H Magnesium 2.1 12/31/17 16:30 Tracheal Aspirate Gram Stain - Final 12/31/17 16:30 Tracheal Aspirate Sputum Culture - Final NORMAL FADI Impressions: KUB X-Ray 12/31/17 08:33 IMPRESSION: NG tube with its tip in the left upper quadrant presumably in the fundus of the stomach Chest X-Ray 01/03/18 06:00 IMPRESSION: No focal infiltrates. Lungs are hyperlucent and hyperinflated PICC clear. Tubes and lines in good positioning. Assessment & Plan - Diagnosis (1) Hypertensive urgency Is this a current diagnosis for this admission?: Yes Plan: Appears to be resolved (2) Flash pulmonary edema Is this a current diagnosis for this admission?: Yes Plan: Resolved (3) Acute respiratory failure with hypoxia Is this a current diagnosis for this admission?: Yes Plan: Respiratory rate FiO2 minute ventilation airway pressures all suggest successful extubation will proceed with extubation (4) Chronic kidney disease, stage V (very severe) Is this a current diagnosis for this admission?: Yes Plan: Labs- All tests 24 hr 12/31/17 12/31/17 01/01/18 08:08 08:08 03:46 BUN 56 H 43 H Creatinine 6.49 H 6.00 H NT-Pro-B Natriuret Pep 01086 H 01/02/18 04:01 BUN 54 H Creatinine 8.17 H NT-Pro-B Natriuret Pep (5) COPD exacerbation Is this a current diagnosis for this admission?: Yes Plan: Bronchodilator therapy (6) HIV (human immunodeficiency virus infection) Is this a current diagnosis for this admission?: Yes - Time Total Critical Time (Minutes): 55
--- NOTE | 2018-01-03 14:52 | PDOC PROGRESS REPORT ---
Subjective Progress Note for:: 01/03/18 Subjective:: Admitted with respiratory failure and still intubated and sedated, Patient appears to be improving and tentatively plan for extubation today if weaning successful Reason For Visit: ACUTE RESPIRATORY FAILURE, ESRD, HIV POSITIVE Physical Exam Vital Signs: Temp Pulse Resp BP Pulse Ox 98.1 F 78 17 176/112 H 96 01/03/18 10:23 01/03/18 10:00 01/03/18 10:23 01/03/18 10:23 01/03/18 10:23 Intake & Output 01/02/18 01/03/18 01/04/18 06:59 06:59 06:59 Intake Total 472 468 20 Output Total 397 1275 40 Balance 75 -807 -20 Weight 62.5 kg 60 kg General appearance: PRESENT: no acute distress, well-developed, well-nourished Head exam: PRESENT: atraumatic, normocephalic Eye exam: PRESENT: conjunctiva pink, EOMI, PERRLA. ABSENT: scleral icterus Ear exam: PRESENT: normal external ear exam Mouth exam: PRESENT: moist, tongue midline Neck exam: ABSENT: carotid bruit, JVD, lymphadenopathy, thyromegaly Respiratory exam: PRESENT: clear to auscultation ramila, other - On mechanical ventilation. ABSENT: rales, rhonchi, wheezes Cardiovascular exam: PRESENT: RRR. ABSENT: diastolic murmur, rubs, systolic murmur Vascular exam: PRESENT: normal capillary refill GI/Abdominal exam: PRESENT: normal bowel sounds, soft. ABSENT: distended, guarding, mass, organolmegaly, rebound, tenderness Rectal exam: PRESENT: deferred Extremities exam: PRESENT: pedal edema. ABSENT: calf tenderness, clubbing Musculoskeletal exam: PRESENT: other - Left AKA right BKA Neurological exam: ABSENT: motor sensory deficit Psychiatric exam: PRESENT: appropriate affect, normal mood. ABSENT: homicidal ideation, suicidal ideation Skin exam: PRESENT: dry, intact, warm. ABSENT: cyanosis, rash Results Laboratory Results: 01/03/18 04:03 01/03/18 04:03 01/03/18 01/03/18 01/03/18 04:03 04:03 04:54 WBC 6.3 RBC 4.39 Hgb 13.1 L Hct 39.5 MCV 90 MCH 30.0 MCHC 33.2 RDW 15.2 H Plt Count 153 Seg Neutrophils % Not Reportable Lymphocytes % Not Reportable Monocytes % Not Reportable Eosinophils % Not Reportable Basophils % Not Reportable Absolute Neutrophils Not Reportable Absolute Lymphocytes Not Reportable Absolute Monocytes Not Reportable Absolute Eosinophils Not Reportable Absolute Basophils Not Reportable Carbonic Acid 1.00 L HCO3/H2CO3 Ratio 25:1 ABG pH 7.50 H ABG pCO2 33.2 L ABG pO2 93.7 ABG HCO3 25.5 ABG O2 Saturation 97.8 ABG Base Excess 2.9 FiO2 28% Sodium 142.5 Potassium 4.2 Chloride 100 Carbon Dioxide 23 Anion Gap 20 H BUN 33 H Creatinine 6.52 H Est GFR ( Amer) 10 L Est GFR (Non-Af Amer) 9 L Glucose 96 Calcium 8.3 L Phosphorus 6.6 H Magnesium 2.1 12/31/17 16:30 Tracheal Aspirate Gram Stain - Final 12/31/17 16:30 Tracheal Aspirate Sputum Culture - Final NORMAL FADI Impressions: KUB X-Ray 12/31/17 08:33 IMPRESSION: NG tube with its tip in the left upper quadrant presumably in the fundus of the stomach Chest X-Ray 01/03/18 06:00 IMPRESSION: No focal infiltrates. Lungs are hyperlucent and hyperinflated PICC clear. Tubes and lines in good positioning. Assessment & Plan - Diagnosis (1) Respiratory failure Qualifiers: Chronicity: acute on chronic Respiratory failure complication: hypoxia Qualified Code(s): J96.21 - Acute and chronic respiratory failure with hypoxia Is this a current diagnosis for this admission?: Yes Plan: Wean and extubate as tolerated (2) ESRD (end stage renal disease) on dialysis Is this a current diagnosis for this admission?: Yes (3) HIV (human immunodeficiency virus infection) Is this a current diagnosis for this admission?: Yes Plan: Continue HAART (4) Acute on chronic systolic and diastolic heart failure, NYHA class 3 Is this a current diagnosis for this admission?: Yes Plan: Although patient came with pulmonary edema this is likely related to volume overload from his ESRD. Echocardiogram done in July of this year reveal mild to moderate reduced LV ejection fraction at about 40% as well as grade 2 diastolic dysfunction with mild to moderate global hypokinesis of the left ventricle. His BNP is more than 30,000 however this is of limited value due to his kidney function as well as his other comorbidities. I will hold off obtaining another echo at this time. (5) Acute respiratory failure with hypoxia Is this a current diagnosis for this admission?: Yes Plan: There is concern that patient may also have had cardiogenic edema due to a drug use as there is a history of substance abuse. Drug screen is positive for cocaine. As patient apparently had not missed any dialysis yet this is a possible etiology for his pulmonary edema respiratory failure (6) Flash pulmonary edema Is this a current diagnosis for this admission?: Yes (7) Transaminitis Is this a current diagnosis for this admission?: Yes Plan: We will follow-up on liver function test (8) Hypertensive urgency, malignant Is this a current diagnosis for this admission?: Yes Plan: Resolved - Time Time Spent with patient: 15-24 minutes Medications reviewed and adjusted accordingly: Yes Anticipated discharge: Home Within: within 72 hours - Inpatient Certification Based on my medical assessment, after consideration of the patient's comorbidities, presenting symptoms, or acuity I expect that the services needed warrant INPATIENT care.: Yes Medical Necessity: Other - Patient is still intubated and needs intensive care
[2018-01-03 15:37] LABS: ARTERIAL BLOOD BASE EXCESS 0.3 mmol/L; ARTERIAL BLOOD H2CO3 1.03 mmol/L (1.05-1.35); ARTERIAL BLOOD HCO3 23.6 mmol/L (20-26); ARTERIAL BLOOD O2 SATURATION 96.7 % (94-98); ARTERIAL BLOOD PCO2 34.1 mmHg (35-45); ARTERIAL BLOOD PH 7.46 (7.35-7.45); ARTERIAL BLOOD PO2 82.2 mmHg (80-100); ARTERIAL BLOOD TOTAL CO2 24.6 mmol/L (23-27)
[2018-01-03 15:38] LABS: ARTERIAL BLOOD FIO2 40%
[2018-01-03] MEDS ORDERED: ACETAMINOPHEN SOLN 325 MG/10.15 ML UDCUP PO PRN (18:00)
[2018-01-03] MEDS: APIXABAN 2.5 MG TABLET PO SCH (18:45)
[2018-01-03] MEDS: HYDRALAZINE HCL 50 MG TABLET PO SCH (22:38)
[2018-01-03] MEDS: CARVEDILOL 12.5 MG TABLET PO SCH (22:38)
[2018-01-03] MEDS: ATORVASTATIN CALCIUM 10 MG TABLET PO SCH (22:38)
[2018-01-04] MEDS ORDERED: MORPHINE SULFATE 10 MG/ML INJ IV PRN (01:54)
[2018-01-04 04:11] LABS: ABSOLUTE EOSINOPHILS # (AUTO) 0.1 10^3/uL (0.0-0.6); ABSOLUTE LYMPHOCYTES (AUTO) 1.4 10^3/uL (0.5-4.7); ABSOLUTE MONOCYTES (AUTO) 0.9 10^3/uL (0.1-1.4); ABSOLUTE NEUT (AUTO) 2.9 10^3/uL (1.7-8.2); BASOPHILS % (AUTO) 0.6 % (0-2); EOSINOPHILS % (AUTO) 2.7 % (0-6); HEMATOCRIT 37.5 % (37.9-51.0); HEMOGLOBIN 12.7 g/dL (13.5-17.0); LYMPHOCYTES % (AUTO) 26.9 % (13-45); MEAN CORPUSCULAR HEMOGLOBIN 30.5 pg (27.0-33.4); MEAN CORPUSCULAR HGB CONC 33.7 g/dL (32.0-36.0); MEAN CORPUSCULAR VOLUME 90 fl (80-97); MONOCYTES % (AUTO) 16.4 % (3-13); PLATELET COUNT 162 10^3/uL (150-450); RED BLOOD COUNT 4.16 10^6/uL (4.35-5.55); RED CELL DISTRIBUTION WIDTH 15.1 % (11.5-14.0); SEGMENTED NEUTROPHILS % (AUTO) 53.4 % (42-78); TOTAL CELLS COUNTED % (AUTO) 100 %; WHITE BLOOD COUNT 5.4 10^3/uL (4.0-10.5)
[2018-01-04 04:32] LABS: BLOOD UREA NITROGEN 44 mg/dL (7-20); CALCIUM 7.5 mg/dL (8.4-10.2); GLUCOSE 79 mg/dL (75-110)
[2018-01-04 04:38] LABS: CARBON DIOXIDE 22 mmol/L (22-30); CHLORIDE 101 mmol/L (98-107); SODIUM 144.1 mmol/L (137-145)
[2018-01-04 04:47] LABS: ANION GAP 21 (5-19)
[2018-01-04 06:20] LABS: ARTERIAL BLOOD BASE EXCESS -0.9 mmol/L; ARTERIAL BLOOD H2CO3 1.12 mmol/L (1.05-1.35); ARTERIAL BLOOD HCO3 23.3 mmol/L (20-26); ARTERIAL BLOOD O2 SATURATION 96.5 % (94-98); ARTERIAL BLOOD PCO2 37.1 mmHg (35-45); ARTERIAL BLOOD PH 7.42 (7.35-7.45); ARTERIAL BLOOD TOTAL CO2 24.4 mmol/L (23-27)
[2018-01-04 06:21] LABS: ARTERIAL BLOOD FIO2 2L
[2018-01-04] MEDS: HYDRALAZINE HCL 50 MG TABLET PO SCH ×3 (07:10→21:42)
[2018-01-04] MEDS ORDERED: HYDROMORPHONE HCL INJ/PF 2 MG/ML AMPULE ONE (09:34)
[2018-01-04] MEDS: AMLODIPINE BESYLATE 10 MG TABLET PO SCH (09:40)
[2018-01-04] MEDS: CARVEDILOL 12.5 MG TABLET PO SCH ×2 (09:40→21:42)
[2018-01-04] MEDS: CALCITRIOL 0.25 MCG CAPSULE PO SCH (09:40)
[2018-01-04] MEDS: ISOSORBIDE MONONITRATE 60 MG TAB.ER.24H PO SCH (09:40)
[2018-01-04] MEDS: APIXABAN 2.5 MG TABLET PO SCH ×2 (09:40→18:55)
[2018-01-04] MEDS ORDERED: PHENOL/SODIUM PHENOLATE 100 SPRAY/177 ML BOTTLE PO PRN (10:49)
[2018-01-04] MEDS ORDERED: HYDRALAZINE HCL INJ/PF 20 MG/1 ML SDV IV ONE (11:00)
[2018-01-04] MEDS: HYDRALAZINE HCL INJ/PF 20 MG/1 ML SDV IV SCH ×2 (11:31→18:55)
[2018-01-04] MEDS: NITROGLYCERIN 2% OINTMENT 1 GM PACKET TP SCH ×2 (11:34→18:54)
--- NOTE | 2018-01-04 14:20 | PDOC PROGRESS REPORT ---
Subjective Progress Note for:: 01/04/18 Subjective:: Admitted with respiratory failure and still intubated and sedated, Patient extubated and respiratory concepcion he appears to be stable. He is having difficulty swallowing though so we unable to give him anything orally Reason For Visit: ACUTE RESPIRATORY FAILURE, ESRD, HIV POSITIVE Physical Exam Vital Signs: Temp Pulse Resp BP Pulse Ox 97.9 F 76 14 161/78 H 94 01/04/18 14:00 01/04/18 10:00 01/04/18 14:00 01/04/18 13:26 01/04/18 14:00 Intake & Output 01/03/18 01/04/18 01/05/18 06:59 06:59 06:59 Intake Total 468 199 0 Output Total 1275 520 190 Balance -807 -321 -190 Weight 60 kg 62.6 kg General appearance: PRESENT: no acute distress, well-developed, well-nourished, other - Lethargic but easily arousable Eye exam: PRESENT: PERRLA Neck exam: ABSENT: carotid bruit, JVD, lymphadenopathy, thyromegaly Respiratory exam: PRESENT: decreased breath sounds, unlabored. ABSENT: accessory muscle use, rhonchi, tachypnea, wheezes Cardiovascular exam: PRESENT: RRR. ABSENT: diastolic murmur, rubs, systolic murmur Pulses: PRESENT: normal dorsalis pedis pul Rectal exam: PRESENT: deferred Extremities exam: PRESENT: other - Left AKA and right BKA Neurological exam: PRESENT: alert, oriented to person, oriented to place, oriented to time, oriented to situation Psychiatric exam: PRESENT: appropriate affect Results Laboratory Results: 01/04/18 03:36 01/04/18 03:36 01/03/18 01/04/18 01/04/18 15:20 03:36 03:36 WBC 5.4 RBC 4.16 L Hgb 12.7 L Hct 37.5 L MCV 90 MCH 30.5 MCHC 33.7 RDW 15.1 H Plt Count 162 Seg Neutrophils % 53.4 Lymphocytes % 26.9 Monocytes % 16.4 H Eosinophils % 2.7 Basophils % 0.6 Absolute Neutrophils 2.9 Absolute Lymphocytes 1.4 Absolute Monocytes 0.9 Absolute Eosinophils 0.1 Absolute Basophils 0.0 Carbonic Acid 1.03 L HCO3/H2CO3 Ratio 22:1 ABG pH 7.46 H ABG pCO2 34.1 L ABG pO2 82.2 ABG HCO3 23.6 ABG O2 Saturation 96.7 ABG Base Excess 0.3 FiO2 40% Sodium 144.1 Potassium 4.0 Chloride 101 Carbon Dioxide 22 Anion Gap 21 H BUN 44 H Creatinine 7.84 H Est GFR ( Amer) 8 L Est GFR (Non-Af Amer) 7 L Glucose 79 Calcium 7.5 L Magnesium 2.2 01/04/18 06:00 WBC RBC Hgb Hct MCV MCH MCHC RDW Plt Count Seg Neutrophils % Lymphocytes % Monocytes % Eosinophils % Basophils % Absolute Neutrophils Absolute Lymphocytes Absolute Monocytes Absolute Eosinophils Absolute Basophils Carbonic Acid 1.12 HCO3/H2CO3 Ratio 20:1 ABG pH 7.42 ABG pCO2 37.1 ABG pO2 84.0 ABG HCO3 23.3 ABG O2 Saturation 96.5 ABG Base Excess -0.9 FiO2 2L Sodium Potassium Chloride Carbon Dioxide Anion Gap BUN Creatinine Est GFR ( Amer) Est GFR (Non-Af Amer) Glucose Calcium Magnesium Impressions: KUB X-Ray 12/31/17 08:33 IMPRESSION: NG tube with its tip in the left upper quadrant presumably in the fundus of the stomach Chest X-Ray 01/03/18 06:00 IMPRESSION: No focal infiltrates. Lungs are hyperlucent and hyperinflated PICC clear. Tubes and lines in good positioning. Assessment & Plan - Diagnosis (1) Respiratory failure Qualifiers: Chronicity: acute on chronic Respiratory failure complication: hypoxia Qualified Code(s): J96.21 - Acute and chronic respiratory failure with hypoxia Is this a current diagnosis for this admission?: Yes Plan: Status post mechanical ventilation. Patient's respiratory status appears to be relatively stable (2) ESRD (end stage renal disease) on dialysis Is this a current diagnosis for this admission?: Yes Plan: Continue hemodialysis as per nephrology (3) HIV (human immunodeficiency virus infection) Is this a current diagnosis for this admission?: Yes Plan: Continue his current medications (4) Acute on chronic systolic and diastolic heart failure, NYHA class 3 Is this a current diagnosis for this admission?: Yes Plan: Although patient came with pulmonary edema this is likely related to volume overload from his ESRD. Echocardiogram 2017 reveal mild to moderate reduced LV ejection fraction at about 40% as well as grade 2 diastolic dysfunction with mild to moderate global hypokinesis of the left ventricle. His BNP is more than 30,000 however this is of limited value due to his kidney function as well as his other comorbidities. (5) Acute respiratory failure with hypoxia Is this a current diagnosis for this admission?: Yes (6) Flash pulmonary edema Is this a current diagnosis for this admission?: Yes Plan: Likely multifactorial including cocaine, ESRD and CHF (7) Transaminitis Is this a current diagnosis for this admission?: Yes Plan: We will follow-up on liver function test (8) Hypertensive urgency, malignant Is this a current diagnosis for this admission?: Yes Plan: Resolved Continue his chronic antihypertensives - Time Time Spent with patient: 15-24 minutes Medications reviewed and adjusted accordingly: Yes Anticipated discharge: Home Within: within 48 hours - Inpatient Certification Based on my medical assessment, after consideration of the patient's comorbidities, presenting symptoms, or acuity I expect that the services needed warrant INPATIENT care.: Yes Medical Necessity: Significant Comorbidiites Make Outpatient Treatment Too Risky , Need Close Monitoring Due to Risk of Patient Decompensation - Plan Summary Plan Summary: He can be moved out of the intensive care unit
[2018-01-04] MEDS: HYDROMORPHONE HCL INJ/PF 2 MG/ML AMPULE IV PRN ×2 (14:25→20:00)
[2018-01-04] MEDS: ATORVASTATIN CALCIUM 10 MG TABLET PO SCH (21:42)
[2018-01-05] MEDS: NITROGLYCERIN 2% OINTMENT 1 GM PACKET TP SCH ×3 (00:05→13:08)
[2018-01-05] MEDS: HYDROMORPHONE HCL INJ/PF 2 MG/ML AMPULE IV PRN ×3 (00:06→19:10)
[2018-01-05] MEDS: HYDRALAZINE HCL INJ/PF 20 MG/1 ML SDV IV SCH ×3 (00:06→13:08)
[2018-01-05 04:29] LABS: HEMATOCRIT 41.7 % (37.9-51.0); MEAN CORPUSCULAR HEMOGLOBIN 29.9 pg (27.0-33.4); MEAN CORPUSCULAR HGB CONC 33.6 g/dL (32.0-36.0); MEAN CORPUSCULAR VOLUME 89 fl (80-97); RED BLOOD COUNT 4.69 10^6/uL (4.35-5.55); RED CELL DISTRIBUTION WIDTH 15.2 % (11.5-14.0)
[2018-01-05] MEDS: HYDRALAZINE HCL 50 MG TABLET PO SCH ×3 (05:01→17:41)
[2018-01-05 05:41] LABS: ABSOLUTE LYMPHOCYTES# (MANUAL) 2.1 10^3/uL (0.5-4.7); ABSOLUTE MONOCYTES # (MANUAL) 0.5 10^3/uL (0.1-1.4); ABSOLUTE NEUTROPHILS# (MANUAL) 3.9 10^3/uL (1.7-8.2); BASOPHILS % (MANUAL) 0 % (0-2); EOSINOPHILS % (MANUAL) 7 % (0-6); LYMPHOCYTES % (MANUAL) 30 % (13-45); MONOCYTES % (MANUAL) 7 % (3-13); SEGMENTED NEUTROPHILS % (MAN) 56 % (42-78); TOTAL CELLS COUNTED 100
[2018-01-05 05:42] LABS: PLATELET COMMENT DECREASED; RBC MORPHOLOGY COMMENT NORMO-CYTIC/CHROMIC
[2018-01-05 05:44] LABS: PLATELET COUNT 131 10^3/uL (150-450)
[2018-01-05 06:04] LABS: BLOOD UREA NITROGEN 64 mg/dL (7-20); CALCIUM 8.3 mg/dL (8.4-10.2); GLUCOSE 67 mg/dL (75-110); POTASSIUM 4.6 mmol/L (3.6-5.0)
[2018-01-05 06:05] LABS: CARBON DIOXIDE 18 mmol/L (22-30); CHLORIDE 104 mmol/L (98-107); SODIUM 146.9 mmol/L (137-145)
[2018-01-05 06:08] LABS: ANION GAP 25 (5-19)
[2018-01-05] MEDS: AMLODIPINE BESYLATE 10 MG TABLET PO SCH (09:32)
[2018-01-05] MEDS: APIXABAN 2.5 MG TABLET PO SCH ×2 (09:33→17:41)
[2018-01-05] MEDS: CARVEDILOL 12.5 MG TABLET PO SCH ×2 (09:33→17:41)
[2018-01-05] MEDS: CALCITRIOL 0.25 MCG CAPSULE PO SCH (09:33)
[2018-01-05] MEDS: ISOSORBIDE MONONITRATE 60 MG TAB.ER.24H PO SCH (09:34)
--- NOTE | 2018-01-05 11:09 | PDOC PROGRESS REPORT ---
Subjective Progress Note for:: 01/04/18 Subjective:: Complains of being hungry Reason For Visit: ACUTE RESPIRATORY FAILURE, ESRD, HIV POSITIVE Physical Exam Vital Signs: Temp Pulse Resp BP Pulse Ox 98.1 F 86 16 138/86 H 96 01/04/18 06:00 01/03/18 22:00 01/04/18 06:00 01/04/18 05:23 01/04/18 06:00 Intake & Output 01/03/18 01/04/18 01/05/18 06:59 06:59 06:59 Intake Total 468 199 Output Total 1275 520 Balance -807 -321 Weight 60 kg 62.6 kg General appearance: PRESENT: no acute distress, cooperative, disheveled Head exam: PRESENT: atraumatic, normocephalic Eye exam: PRESENT: conjunctiva pale, EOMI. ABSENT: nystagmus, periorbital swelling, scleral icterus Mouth exam: PRESENT: dry mucosa, neck supple, tongue midline Teeth exam: PRESENT: poor dentation Neck exam: ABSENT: carotid bruit, JVD, lymphadenopathy, thyromegaly, tracheal deviation, tracheostomy Respiratory exam: PRESENT: crackles, decreased breath sounds, prolonged expiratory phas, rhonchi, unlabored. ABSENT: rales, retraction, stridor Cardiovascular exam: PRESENT: RRR, +S1, +S2. ABSENT: tachycardia Pulses: PRESENT: normal radial pulses GI/Abdominal exam: PRESENT: hypoactive bowel sounds, soft Extremities exam: ABSENT: calf tenderness, clubbing Musculoskeletal exam: ABSENT: ambulatory, deformity, dislocation Neurological exam: PRESENT: awake Psychiatric exam: PRESENT: flat affect Skin exam: PRESENT: dry, warm Results Laboratory Results: 01/04/18 03:36 01/04/18 03:36 01/03/18 01/04/18 01/04/18 15:20 03:36 03:36 WBC 5.4 RBC 4.16 L Hgb 12.7 L Hct 37.5 L MCV 90 MCH 30.5 MCHC 33.7 RDW 15.1 H Plt Count 162 Seg Neutrophils % 53.4 Lymphocytes % 26.9 Monocytes % 16.4 H Eosinophils % 2.7 Basophils % 0.6 Absolute Neutrophils 2.9 Absolute Lymphocytes 1.4 Absolute Monocytes 0.9 Absolute Eosinophils 0.1 Absolute Basophils 0.0 Carbonic Acid 1.03 L HCO3/H2CO3 Ratio 22:1 ABG pH 7.46 H ABG pCO2 34.1 L ABG pO2 82.2 ABG HCO3 23.6 ABG O2 Saturation 96.7 ABG Base Excess 0.3 FiO2 40% Sodium 144.1 Potassium 4.0 Chloride 101 Carbon Dioxide 22 Anion Gap 21 H BUN 44 H Creatinine 7.84 H Est GFR ( Amer) 8 L Est GFR (Non-Af Amer) 7 L Glucose 79 Calcium 7.5 L Magnesium 2.2 01/04/18 06:00 WBC RBC Hgb Hct MCV MCH MCHC RDW Plt Count Seg Neutrophils % Lymphocytes % Monocytes % Eosinophils % Basophils % Absolute Neutrophils Absolute Lymphocytes Absolute Monocytes Absolute Eosinophils Absolute Basophils Carbonic Acid 1.12 HCO3/H2CO3 Ratio 20:1 ABG pH 7.42 ABG pCO2 37.1 ABG pO2 84.0 ABG HCO3 23.3 ABG O2 Saturation 96.5 ABG Base Excess -0.9 FiO2 2L Sodium Potassium Chloride Carbon Dioxide Anion Gap BUN Creatinine Est GFR ( Amer) Est GFR (Non-Af Amer) Glucose Calcium Magnesium Impressions: KUB X-Ray 12/31/17 08:33 IMPRESSION: NG tube with its tip in the left upper quadrant presumably in the fundus of the stomach Chest X-Ray 01/03/18 06:00 IMPRESSION: No focal infiltrates. Lungs are hyperlucent and hyperinflated PICC clear. Tubes and lines in good positioning. Assessment & Plan - Diagnosis (1) Hypertensive urgency Is this a current diagnosis for this admission?: No (2) Flash pulmonary edema Is this a current diagnosis for this admission?: Yes Plan: Resolved (3) Acute respiratory failure with hypoxia Is this a current diagnosis for this admission?: Yes Plan: 24 hours status post extubation stable on 2 L (4) Chronic kidney disease, stage V (very severe) Is this a current diagnosis for this admission?: Yes Plan: Labs- All tests 24 hr 12/31/17 12/31/17 01/01/18 08:08 08:08 03:46 BUN 56 H 43 H Creatinine 6.49 H 6.00 H NT-Pro-B Natriuret Pep [id number] H 01/02/18 04:01 BUN 54 H Creatinine 8.17 H NT-Pro-B Natriuret Pep (5) COPD exacerbation Is this a current diagnosis for this admission?: Yes Plan: Scattered wheezes and rhonchi (6) HIV (human immunodeficiency virus infection) Is this a current diagnosis for this admission?: Yes - Time Total Critical Time (Minutes): 45 - Plan Summary Plan Summary: Patient failed RN swallow study 3 will go for medical modified barium swallow
--- NOTE | 2018-01-05 11:11 | PDOC PROGRESS REPORT ---
Subjective Progress Note for:: 01/05/18 Subjective:: Complains of being hungry Reason For Visit: ACUTE RESPIRATORY FAILURE, ESRD, HIV POSITIVE Physical Exam Vital Signs: Temp Pulse Resp BP Pulse Ox 98.4 F 84 15 172/88 H 96 01/05/18 06:00 01/04/18 22:00 01/05/18 06:00 01/05/18 03:23 01/05/18 06:00 Intake & Output 01/04/18 01/05/18 01/06/18 06:59 06:59 06:59 Intake Total 199 80 Output Total 520 815 Balance -321 -735 Weight 62.6 kg 64.8 kg General appearance: PRESENT: no acute distress, cooperative, disheveled Head exam: PRESENT: atraumatic, normocephalic Eye exam: PRESENT: conjunctiva pale, EOMI. ABSENT: nystagmus, periorbital swelling, scleral icterus Mouth exam: PRESENT: dry mucosa, neck supple, tongue midline Teeth exam: PRESENT: poor dentation Neck exam: ABSENT: carotid bruit, JVD, lymphadenopathy, thyromegaly, tracheal deviation, tracheostomy Respiratory exam: PRESENT: crackles, decreased breath sounds, prolonged expiratory phas, rhonchi, unlabored. ABSENT: rales, retraction, stridor Cardiovascular exam: PRESENT: RRR, +S1, +S2. ABSENT: tachycardia Pulses: PRESENT: normal radial pulses GI/Abdominal exam: PRESENT: normal bowel sounds, soft Extremities exam: ABSENT: calf tenderness, clubbing Musculoskeletal exam: ABSENT: deformity, dislocation Neurological exam: PRESENT: awake, oriented to person, oriented to place Psychiatric exam: PRESENT: flat affect Skin exam: PRESENT: dry, warm Results Laboratory Results: 01/05/18 04:11 01/05/18 04:11 01/05/18 01/05/18 04:11 04:11 WBC 7.0 RBC 4.69 Hgb 14.0 Hct 41.7 MCV 89 MCH 29.9 MCHC 33.6 RDW 15.2 H Plt Count 131 L Seg Neutrophils % Not Reportable Lymphocytes % Not Reportable Monocytes % Not Reportable Eosinophils % Not Reportable Basophils % Not Reportable Absolute Neutrophils Not Reportable Absolute Lymphocytes Not Reportable Absolute Monocytes Not Reportable Absolute Eosinophils Not Reportable Absolute Basophils Not Reportable Sodium 146.9 H Potassium 4.6 Chloride 104 Carbon Dioxide 18 L Anion Gap 25 H BUN 64 H Creatinine 9.85 H Est GFR ( Amer) 6 L Est GFR (Non-Af Amer) 5 L Glucose 67 L Calcium 8.3 L Impressions: KUB X-Ray 12/31/17 08:33 IMPRESSION: NG tube with its tip in the left upper quadrant presumably in the fundus of the stomach Chest X-Ray 01/03/18 06:00 IMPRESSION: No focal infiltrates. Lungs are hyperlucent and hyperinflated PICC clear. Tubes and lines in good positioning. Assessment & Plan - Diagnosis (1) Hypertensive urgency Is this a current diagnosis for this admission?: No (2) Flash pulmonary edema Is this a current diagnosis for this admission?: No (3) Acute respiratory failure with hypoxia Is this a current diagnosis for this admission?: Yes Plan: 48 hours status post extubation stable on 2 L (4) Chronic kidney disease, stage V (very severe) Is this a current diagnosis for this admission?: Yes Plan: Labs- All tests 24 hr 12/31/17 12/31/17 01/01/18 08:08 08:08 03:46 BUN 56 H 43 H Creatinine 6.49 H 6.00 H NT-Pro-B Natriuret Pep [id number] H 01/02/18 04:01 BUN 54 H Creatinine 8.17 H NT-Pro-B Natriuret Pep (5) COPD exacerbation Is this a current diagnosis for this admission?: Yes (6) HIV (human immunodeficiency virus infection) Is this a current diagnosis for this admission?: Yes - Time Total Critical Time (Minutes): 45
--- NOTE | 2018-01-05 11:21 | RADIOLOGY REPORT (SQ) ---
EXAM DESCRIPTION: COOKIE SWALLOW COMPLETED DATE/TIME: 01/05/2018 9:11 am REASON FOR STUDY: Repeated failed swallow eval COMPARISON: None. TECHNIQUE: Videofluoroscopic swallowing examination was performed in conjunction with speech patholo gy. Videofluoroscopic imaging was obtained and reviewed and these are the findings: RADIATION DOSE: Fluoro time 1.46 minutes 1 images saved to PACS. LIMITATIONS: None FINDINGS: The patient was brought into the fluoro room and placed upright on a modified barium swall ow chair. The patient was then given multiple consistencies mixed with barium to swallow under live fluoroscopic video guidance. According to the Speech Pathologist there was laryngeal penetration wit hout aspiration was seen with thin barium. All other consistencies were swallowed without incident. Please refer to the speech pathology report for further details. IMPRESSION: LARYNGEAL PENETRATION WITHOUT ASPIRATION SEEN WITH THIN BARIUM.PLEASE SEE SPEECH PATHOLO GIST REPORT FOR OTHER FINDINGS AND RECOMMENDATIONS. COMMENT: NONE Quality ID [id number]: Final reports for procedures using fluoroscopy that document radiation exposure arlyn april, or exposure time and number of fluorographic images (if radiation exposure indices are not avail able) TECHNICAL DOCUMENTATION: JOB ID: [id number] [employer]- All Rights Reserved Reading location - IP/workstation name: [email or web address]
--- NOTE | 2018-01-05 13:50 | PDOC PROGRESS REPORT ---
Subjective Progress Note for:: 01/05/18 Reason For Visit: ACUTE RESPIRATORY FAILURE, ESRD, HIV POSITIVE was seen in the ICU today.He has been extubated and remained such. He is awake alert and oriented 3. He is being seen on dialysis. Undergoing dialysis without any issues.He says he get rid of the cocaine habit from now onwards. Labs and medications were reviewed with the patient. Physical Exam Vital Signs: Temp Pulse Resp BP Pulse Ox 98.4 F 91 18 155/105 H 93 01/05/18 09:23 01/05/18 09:49 01/05/18 10:00 01/05/18 09:23 01/05/18 10:00 Intake & Output 01/04/18 01/05/18 01/06/18 06:59 06:59 06:59 Intake Total 199 80 240 Output Total 520 815 35 Balance -321 -735 205 Weight 62.6 kg 64.8 kg General appearance: PRESENT: no acute distress Respiratory exam: PRESENT: clear to auscultation ramila. ABSENT: crackles, rhonchi Cardiovascular exam: PRESENT: +S1, +S2, systolic murmur GI/Abdominal exam: PRESENT: normal bowel sounds, soft. ABSENT: distended, organomegaly, tenderness Extremities exam: ABSENT: pedal edema Neurological exam: PRESENT: alert, awake, oriented to person, oriented to place , oriented to time Skin exam: ABSENT: erythema, mottled Results Laboratory Results: 01/05/18 04:11 01/05/18 04:11 01/05/18 01/05/18 04:11 04:11 WBC 7.0 RBC 4.69 Hgb 14.0 Hct 41.7 MCV 89 MCH 29.9 MCHC 33.6 RDW 15.2 H Plt Count 131 L Seg Neutrophils % Not Reportable Lymphocytes % Not Reportable Monocytes % Not Reportable Eosinophils % Not Reportable Basophils % Not Reportable Absolute Neutrophils Not Reportable Absolute Lymphocytes Not Reportable Absolute Monocytes Not Reportable Absolute Eosinophils Not Reportable Absolute Basophils Not Reportable Sodium 146.9 H Potassium 4.6 Chloride 104 Carbon Dioxide 18 L Anion Gap 25 H BUN 64 H Creatinine 9.85 H Est GFR ( Amer) 6 L Est GFR (Non-Af Amer) 5 L Glucose 67 L Calcium 8.3 L Impressions: KUB X-Ray 12/31/17 08:33 IMPRESSION: NG tube with its tip in the left upper quadrant presumably in the fundus of the stomach Chest X-Ray 01/03/18 06:00 IMPRESSION: No focal infiltrates. Lungs are hyperlucent and hyperinflated PICC clear. Tubes and lines in good positioning. Modified Barium Swallow 01/05/18 00:00 IMPRESSION: LARYNGEAL PENETRATION WITHOUT ASPIRATION SEEN WITH THIN BARIUM.PLEASE SEE SPEECH PATHOLOGIST REPORT FOR OTHER FINDINGS AND RECOMMENDATIONS. Assessment & Plan - Diagnosis (1) ESRD (end stage renal disease) on dialysis Is this a current diagnosis for this admission?: Yes Plan: Patient still intubated but undergoing HD without any issues.VS stable.Its being supervised to ensure a safe and smooth procedure. Orders were discussed with treating RN.Plan to UF 1-2 L as tolerated. (2) HIV (human immunodeficiency virus infection) Is this a current diagnosis for this admission?: Yes Plan: As per hospitalist. (3) Acute on chronic combined systolic and diastolic congestive heart failure Plan: Resolved.Continue current meds. (4) Acute respiratory failure with hypoxia Is this a current diagnosis for this admission?: Yes Plan: Resolved and is now extubated and stable.. (5) Cocaine abuse Plan: Unfortunate.Counseled. He states he will kick the habit from now onwards. We will wait and see.He has had this in the past before. (6) History of DVT (deep vein thrombosis) Plan: ON DVT prophylaxis. (8) Hypertensive emergency Plan: Resolved.Likely cocaine induced?.
--- NOTE | 2018-01-05 16:38 | ST Inp Modified Barium Swallow ---
Medical Diagnosis - Medical Diagnoses Medical Diagnosis Description & ICD-10 Code(s): Respiratory failure; dysphagia [place] [facility] [place]: 01/05/18 Date of Onset: 12/31/17 - History History Obtained From: Other - EMR -: Medical - Per EMR, history of end stage renal disease, pulmonary vascular congestion. Admitted on 12/31/17 due to difficulty breathing; intubated upon admission. Extubated on 01/03/18. Nursing reports difficulty with swallowing upon extubation. Medications: Medications Reviewed Allergies: Refer to medical record - Subjective Current Nutritional Means: NPO Current PO Diet: N/A (NPO) Current Symptoms: Coughing - Failed swallow screen Pain: 5/5 - Patient stated that he could tolerate procedure despite stating he had 5/5 arm pain., denies pain - Objective Assessment: Upright, Left Lateral - Food Trials Food Trials Used: Thin liquids, Pureed, Regular The Patient: Was Able to Self Feed, via cup, via spoon - Assessment Labial Function: Within Normal Limits Lingual Function: Within Normal Limits Mandibular Function: Within Normal Limits Dentition: Partial Laryngeal Function: Volitional Swallow, clear voicing - Pharyngeal Stage Initiation of Pharyngeal Stage: Normal Decreased Laryngeal Elevation: No Reduced Velo-Pharyngeal Closure: no Reduced Pressure Generation: No Reduced Tongue Base Retraction: No Pre-Swallowing Pooling in Valleculae: None Pre-Swallowing Pooling in Pyriforms: None Reduced Thyro-Hyiod Approximation: No Reduced Epiglottic Excursion: No Reduced Pharyngeal Peristalsis: No - Impression/Summary Laryngeal Penetration: Flash, during swallow - seen on thin liquid trials inconsistently Tracheal Aspiration: no Patient Presents With: Normal swallow at eval Risk of Aspiration: Mild Risk of Nutritional Compromise: None Risk Due To: flash penetration of thin liquids inconsistently - Recommendations Solid Diet Recommendations: Regular Liquid Diet Recommendations: Thin Regular Diet: Yes Dysphagia Therapy with TECHNICIAN INVENTORY SPECIALIST: No Recommended Techniques: Fully Upright During Meal, Small Bites and Sips Supervision: Independent - Time Total Time: 20 Total Timed Minutes: 20
--- NOTE | 2018-01-05 17:16 | PDOC PROGRESS REPORT ---
Subjective Progress Note for:: 01/05/18 Subjective:: Admitted with respiratory failure and still intubated and sedated, Patient extubated and respiratory concepcion he has been stable. Swallowing evaluation done today was acceptable so patient has been started on oral feeding as well as his medications Patient has no major complaints. His blood pressure is noted to be low after getting his oral antihypertensives today so I did decrease the dose of his hydralazine as well as Coreg. This can be re-adjusted once his blood pressure picks back up. Reason For Visit: ACUTE RESPIRATORY FAILURE, ESRD, HIV POSITIVE Physical Exam Vital Signs: Temp Pulse Resp BP Pulse Ox 98.4 F 91 18 110/66 96 01/05/18 09:23 01/05/18 09:49 01/05/18 14:45 01/05/18 14:45 01/05/18 14:45 Intake & Output 01/04/18 01/05/18 01/06/18 06:59 06:59 06:59 Intake Total 199 80 240 Output Total 520 815 35 Balance -321 -735 205 Weight 62.6 kg 64.8 kg General appearance: PRESENT: no acute distress, well-developed, well-nourished Head exam: PRESENT: atraumatic, normocephalic Eye exam: PRESENT: conjunctiva pink, EOMI, PERRLA. ABSENT: scleral icterus Ear exam: PRESENT: normal external ear exam Mouth exam: PRESENT: moist, tongue midline Neck exam: ABSENT: carotid bruit, JVD, lymphadenopathy, thyromegaly Respiratory exam: PRESENT: clear to auscultation ramila. ABSENT: rales, rhonchi, wheezes Cardiovascular exam: PRESENT: RRR. ABSENT: diastolic murmur, rubs, systolic murmur Pulses: PRESENT: normal dorsalis pedis pul Vascular exam: PRESENT: normal capillary refill GI/Abdominal exam: PRESENT: normal bowel sounds, soft. ABSENT: distended, guarding, mass, organolmegaly, rebound, tenderness Rectal exam: PRESENT: deferred Extremities exam: PRESENT: full ROM, other - L AKA, R BKA. ABSENT: calf tenderness, clubbing, pedal edema Neurological exam: PRESENT: alert, awake, oriented to person, oriented to place , oriented to time, oriented to situation, CN II-XII grossly intact. ABSENT: motor sensory deficit Psychiatric exam: PRESENT: appropriate affect, normal mood. ABSENT: homicidal ideation, suicidal ideation Skin exam: PRESENT: dry, intact, warm. ABSENT: cyanosis, rash Results Laboratory Results: 01/05/18 04:11 01/05/18 04:11 01/05/18 01/05/18 04:11 04:11 WBC 7.0 RBC 4.69 Hgb 14.0 Hct 41.7 MCV 89 MCH 29.9 MCHC 33.6 RDW 15.2 H Plt Count 131 L Seg Neutrophils % Not Reportable Lymphocytes % Not Reportable Monocytes % Not Reportable Eosinophils % Not Reportable Basophils % Not Reportable Absolute Neutrophils Not Reportable Absolute Lymphocytes Not Reportable Absolute Monocytes Not Reportable Absolute Eosinophils Not Reportable Absolute Basophils Not Reportable Sodium 146.9 H Potassium 4.6 Chloride 104 Carbon Dioxide 18 L Anion Gap 25 H BUN 64 H Creatinine 9.85 H Est GFR ( Amer) 6 L Est GFR (Non-Af Amer) 5 L Glucose 67 L Calcium 8.3 L Impressions: KUB X-Ray 12/31/17 08:33 IMPRESSION: NG tube with its tip in the left upper quadrant presumably in the fundus of the stomach Chest X-Ray 01/03/18 06:00 IMPRESSION: No focal infiltrates. Lungs are hyperlucent and hyperinflated PICC clear. Tubes and lines in good positioning. Modified Barium Swallow 01/05/18 00:00 IMPRESSION: LARYNGEAL PENETRATION WITHOUT ASPIRATION SEEN WITH THIN BARIUM.PLEASE SEE SPEECH PATHOLOGIST REPORT FOR OTHER FINDINGS AND RECOMMENDATIONS. Assessment & Plan - Diagnosis (1) Respiratory failure Qualifiers: Chronicity: acute on chronic Respiratory failure complication: hypoxia Qualified Code(s): J96.21 - Acute and chronic respiratory failure with hypoxia Is this a current diagnosis for this admission?: Yes Plan: Status post mechanical ventilation. Patient's respiratory status remains relatively stable (2) ESRD (end stage renal disease) on dialysis Is this a current diagnosis for this admission?: Yes Plan: Continue hemodialysis as per nephrology (3) HIV (human immunodeficiency virus infection) Is this a current diagnosis for this admission?: Yes Plan: Continue his current medications (4) Acute on chronic systolic and diastolic heart failure, NYHA class 3 Is this a current diagnosis for this admission?: Yes Plan: Although patient came with pulmonary edema this is likely related to volume overload from his ESRD. Echocardiogram 2017 reveal mild to moderate reduced LV ejection fraction at about 40% as well as grade 2 diastolic dysfunction with mild to moderate global hypokinesis of the left ventricle. (5) Acute respiratory failure with hypoxia Is this a current diagnosis for this admission?: Yes Plan: Likely from cardiogenic edema due to drug use as there is a history of substance abuse. Drug screen is positive for cocaine. (6) Flash pulmonary edema Is this a current diagnosis for this admission?: No Plan: Likely multifactorial including cocaine, ESRD and CHF (7) Transaminitis Is this a current diagnosis for this admission?: Yes (8) Hypertensive urgency, malignant Is this a current diagnosis for this admission?: Yes Plan: Resolved Continue his chronic antihypertensives, see discussions above - Time Time Spent with patient: 15-24 minutes Medications reviewed and adjusted accordingly: Yes Anticipated discharge: Home Within: within 48 hours - Inpatient Certification Based on my medical assessment, after consideration of the patient's comorbidities, presenting symptoms, or acuity I expect that the services needed warrant INPATIENT care.: Yes Medical Necessity: Need Close Monitoring Due to Risk of Patient Decompensation, Risk of Complication if Not Cared For in Hospital
[2018-01-05] MEDS: ATORVASTATIN CALCIUM 10 MG TABLET PO SCH (21:05)
[2018-01-06] MEDS: HYDRALAZINE HCL 50 MG TABLET PO SCH ×2 (02:32→09:38)
[2018-01-06] MEDS: HYDROMORPHONE HCL INJ/PF 2 MG/ML AMPULE IV PRN ×2 (02:39→09:38)
[2018-01-06] MEDS: CARVEDILOL 12.5 MG TABLET PO SCH (06:26)
[2018-01-06 09:11] VITALS: BP 118/68
[2018-01-06] MEDS: CALCITRIOL 0.25 MCG CAPSULE PO SCH (09:38)
[2018-01-06] MEDS: APIXABAN 2.5 MG TABLET PO SCH (09:38)
[2018-01-06] MEDS: ISOSORBIDE MONONITRATE 60 MG TAB.ER.24H PO SCH (09:39)
[2018-01-06] MEDS: AMLODIPINE BESYLATE 10 MG TABLET PO SCH (09:39)
--- NOTE | 2018-01-06 20:08 | PDOC DISCHARGE SUMMARY ---
General - Admit/Disc Date/PCP Admission Date/Primary Care Provider: 12/31/17 10:02 MARIPOSA MALAGON PA-C Discharge Date: 01/06/18 - Discharge Diagnosis (1) Acute respiratory failure with hypoxia Is this a current diagnosis for this admission?: Yes Summary: Required intubation, and once we got the fluid off of him were able to extubate him successfully. (2) Acute on chronic systolic and diastolic heart failure, NYHA class 3 Is this a current diagnosis for this admission?: Yes Summary: He has heart failure, and he also has ESRD on dialysis, and he was smoking crack and the resulting hypertension and increased workload on his heart probably got him fluid overloaded, and so when he missed dialysis he got even more so, and subsequently went up here in the hospital. We were able to dialyze him and get fluid off and this resolved the fluid overload (3) ESRD (end stage renal disease) on dialysis Is this a current diagnosis for this admission?: Yes Summary: Nephrology was consulted and ordered his dialysis. (4) Cocaine use Is this a current diagnosis for this admission?: Yes Summary: He says he is going to quit. - Additional Information Resuscitation Status: Full Code Discharge Diet: Other (Comments) - cardiac diet with renal restrictions Discharge Activity: Activity As Tolerated, Balance Activity w/Rest Prescriptions: Amlodipine Besylate [Norvasc 10 mg Tablet] 10 mg PO DAILY #30 tablet Carvedilol [Coreg 12.5 mg Tablet] 25 mg PO Q12A #60 tablet Hydralazine HCl [Apresoline 50 mg Tablet] 50 mg PO Q8A #90 tablet Isosorbide Mononitrate [Imdur 60 mg Tablet.er] 120 mg PO DAILY #30 tab.er.24h Home Medications: Albuterol Sulfate [Albuterol Sulfate 2.5mg/3 mL] 3 ml NEB Q8 09/10/17 Albuterol Sulfate [Ventolin HFA MDI 18 GM] 2 puff IH Q6HP PRN 09/10/17 Calcitriol [Rocaltrol 0.25 mcg Capsule] 0.25 mcg PO DAILY 09/10/17 Dolutegravir Sodium [Tivicay] 50 mg PO DAILY 09/10/17 Pantoprazole Sodium [Protonix] 40 mg PO DAILY 09/10/17 Pravastatin Sodium [Pravachol] 40 mg PO DAILY 09/10/17 Apixaban [Eliquis 2.5 mg Tablet] 2.5 mg PO BID 30 Days #60 tablet 09/17/17 Furosemide [Lasix 20 mg Tablet] 20 mg PO DAILY 30 Days #30 tablet 09/17/17 Clonidine [Catapres-Tts 3 (0.3 mg/24 Hr) Transderm Patch] 1 patch TD Q7D Lamivudine [Epivir] 5 ml PO DAILY 12/31/17 Amlodipine Besylate [Norvasc 10 mg Tablet] 10 mg PO DAILY #30 tablet 01/06/18 Carvedilol [Coreg 12.5 mg Tablet] 25 mg PO Q12A #60 tablet 01/06/18 Hydralazine HCl [Apresoline 50 mg Tablet] 50 mg PO Q8A #90 tablet 01/06/18 Isosorbide Mononitrate [Imdur 60 mg Tablet.er] 120 mg PO DAILY #30 tab.er.24h History of Present Illness History of Present Illness: KRISTY CANTU is a 62 year old male Hospital Course Hospital Course: This 62-year-old male with a history of HIV, chronic systolic and diastolic heart failure with reduced ejection fraction, end-stage renal disease on hemodialysis, and a history of chronic crack cocaine use smoked crack again and the increased workload on his heart got him fluid overloaded. He was supposed to go to dialysis and missed his session this made the problem even worse. He came in the hospital in respiratory failure and required intubation and mechanical ventilation. Once we are able to dialyze him reduce the workload on his heart rate would get his fluid status poor balance. He was successfully extubated. He was hypertensive and once he had been off the cocaine for a few days his blood pressure was actually pretty easy to control we actually had to reduce the dosages of several of his home medications. He was provided prescriptions with new dosages. We strongly encouraged him to stop using drugs as he has multiple major chronic medical problems and even for a healthy person , use of crack cocaine is dangerous. He says he is going to quit. His labs were reassuring and he was discharged home today in good condition. Physical Exam Vital Signs: Temp Pulse Resp BP Pulse Ox 98.5 F 69 14 118/68 94 01/06/18 10:29 01/06/18 10:29 01/06/18 10:29 01/06/18 10:29 01/06/18 10:29 Intake & Output 01/05/18 01/06/18 01/07/18 06:59 06:59 06:59 Intake Total 80 250 210 Output Total 815 35 Balance -735 215 210 Weight 64.8 kg 61.2 kg General appearance: PRESENT: no acute distress, cooperative, disheveled Head exam: PRESENT: atraumatic, normocephalic Teeth exam: PRESENT: poor dentation Respiratory exam: PRESENT: clear to auscultation ramila, unlabored. ABSENT: accessory muscle use, chest wall tenderness, crackles, rales, rhonchi, wheezes Cardiovascular exam: PRESENT: RRR. ABSENT: diastolic murmur, gallop, rubs, systolic murmur Vascular exam: PRESENT: normal capillary refill GI/Abdominal exam: PRESENT: normal bowel sounds, soft. ABSENT: ascites, distended, guarding, rebound, tenderness Extremities exam: PRESENT: other - He had a left AKA with unremarkable stump, and he had a right BKA with an unremarkable stump. Results Laboratory Results: 01/05/18 04:11 01/05/18 04:11 Impressions: KUB X-Ray 12/31/17 08:33 IMPRESSION: NG tube with its tip in the left upper quadrant presumably in the fundus of the stomach Chest X-Ray 01/03/18 06:00 IMPRESSION: No focal infiltrates. Lungs are hyperlucent and hyperinflated PICC clear. Tubes and lines in good positioning. Modified Barium Swallow 01/05/18 00:00 IMPRESSION: LARYNGEAL PENETRATION WITHOUT ASPIRATION SEEN WITH THIN BARIUM.PLEASE SEE SPEECH PATHOLOGIST REPORT FOR OTHER FINDINGS AND RECOMMENDATIONS. Qualifiers - * PATIENT BEING DISCHARGED WITH ANY OF THE FOLLOWING DIAGNOSIS: Heart Failure HF Pt being discharged on ACEI for LVEF less than 40%?: No Reason(s) for not prescribing ACEI:: Medical Contraindication - ESRD HF Pt being discharged on [facility] for LVEF less than 40%?: No Reason(s) for not prescribing [facility]:: Medical Contraindication - ESRD HF Pt with Afib discharged with Warfarin?: No Reason(s) for not prescribing Warfarin:: Procedure not indicated HF Pt discharged on evidence-based Beta Johanna:: Yes
== END 2018-01-06 11:30 | disposition home or self-care (01) | DRG 208 ==
LOC: ER 07:59 → EH 10:02 → ICU 12:55
PROVIDERS: ADMIT Internal Medicine; ATTEND Internal Medicine
PROC: 5A1945Z Respiratory Ventilation, 24-96 Consecutive Hours (ICD-10-PCS; principal; 2017-12-31)
PROC: 0BH17EZ Insertion of Endotracheal Airway into Trachea, Via Natural or Artificial Opening (ICD-10-PCS; 2017-12-31)
PROC: 3E0F73Z Introduction of Anti-inflammatory into Respiratory Tract, Via Natural or Artificial Opening (ICD-10-PCS; 2017-12-31)
PROC: 5A1D70Z Performance of Urinary Filtration, Intermittent, Less than 6 Hours Per Day (ICD-10-PCS; 2017-12-31)
PROC: 5A1D70Z Performance of Urinary Filtration, Intermittent, Less than 6 Hours Per Day (ICD-10-PCS; 2018-01-02)
PROC: 5A09357 Assistance with Respiratory Ventilation, Less than 24 Consecutive Hours, Continuous Positive Airway Pressure (ICD-10-PCS; 2018-01-03)
PROC: 5A1D70Z Performance of Urinary Filtration, Intermittent, Less than 6 Hours Per Day (ICD-10-PCS; 2018-01-05)
DX: J96.21 Acute and chronic respiratory failure with hypoxia (principal); N18.6 End stage renal disease; I50.43 Acute on chronic combined systolic (congestive) and diastolic (congestive) heart failure; I13.2 Hypertensive heart and chronic kidney disease with heart failure and with stage 5 chronic kidney disease, or end stage renal disease; N25.81 Secondary hyperparathyroidism of renal origin; I16.1 Hypertensive emergency; J44.1 Chronic obstructive pulmonary disease with (acute) exacerbation; Z21 Asymptomatic human immunodeficiency virus [HIV] infection status; F14.90 Cocaine use, unspecified, uncomplicated; E11.22 Type 2 diabetes mellitus with diabetic chronic kidney disease; E78.00 Pure hypercholesterolemia, unspecified; E11.51 Type 2 diabetes mellitus with diabetic peripheral angiopathy without gangrene; E83.39 Other disorders of phosphorus metabolism; K21.9 Gastro-esophageal reflux disease without esophagitis; M19.90 Unspecified osteoarthritis, unspecified site; F17.210 Nicotine dependence, cigarettes, uncomplicated; I16.0 Hypertensive urgency; E87.5 Hyperkalemia; I25.2 Old myocardial infarction; Z86.711 Personal history of pulmonary embolism; Z86.718 Personal history of other venous thrombosis and embolism; Z89.612 Acquired absence of left leg above knee; Z91.15 Patient's noncompliance with renal dialysis; Z79.899 Other long term (current) drug therapy; Z78.1 Physical restraint status; Z89.511 Acquired absence of right leg below knee; Z82.3 Family history of stroke; Z83.3 Family history of diabetes mellitus; Z80.9 Family history of malignant neoplasm, unspecified; Z82.49 Family history of ischemic heart disease and other diseases of the circulatory system
CPT/HCPCS: 36415; 71045; 74018; 74230; 80048; 80053; 80307; 81001; 82550; 82553; 82803; 82962; 83605; 83735; 83880; 84100; 84484; 85025; 85610; 85730; 87070; 87205; 93005; 93010; 94002; 94003; 94799; 96374; 99291; J0330; J0360; J1170; J1644; J1940; J2250; J2270; J2704; J2765; J2997; J3010; J3490; S0164

== ENCOUNTER 2018-03-11 02:00 | Emergency (ER) | payer MEDICAID ==
[2018-03-11] MEDS ORDERED: MORPHINE SULFATE 10 MG/ML INJ IV ONE ×2 (02:07→05:11)
[2018-03-11] MEDS ORDERED: HYDRALAZINE HCL INJ/PF 20 MG/1 ML SDV IV ONE ×2 (02:08→04:09)
--- NOTE | 2018-03-11 02:10 | ER Document Report ---
ED General - General Stated Complaint: TROUBLE BREATHING Time Seen by Provider: 03/11/18 02:07 Notes: Patient is a 62-year-old male who is on dialysis he does dialysis Friday who presents with complaint of difficulty breathing. Some chest pressure. Said that she is per the paramedics got there is should have a headache as well. Blood pressure has been high. Supposed to take hydralazine 3 times a day. He just took it this morning. He also takes carvedilol which he did take. He does have a clonidine patch on that he abuses both on Sundays but he forgot to put it on. He denies any fevers. No vomiting. No abdominal pain. No other complaints at this time. His senior piping designer is Dr. Lowe. Patient missed dialysis Friday. Therefore, his last dialysis was Friday of last week. TRAVEL OUTSIDE OF THE [place] IN LAST 30 DAYS: No - Related Data Allergies/Adverse Reactions: No Known Allergies Allergy (Verified 09/10/17 14:18) Past Medical History - Social History Smoking Status: Unknown if Ever Smoked Frequency of alcohol use: None Drug Abuse: None Family History: CAD, CVA, DM, Hyperlipidemia, Hypertension, Malignancy - Past Medical History Cardiac Medical History: Reports: Hx Congestive Heart Failure, Hx DVT, Hx Heart Attack, Hx Hypercholesterolemia, Hx Hypertension, Hx Peripheral Vascular Disease , Hx Pulmonary Embolism Pulmonary Medical History: Reports: Hx Bronchitis, Hx COPD, Hx Pneumonia Denies: Hx Asthma Neurological Medical History: Denies: Hx Migraine, Hx Seizures Endocrine Medical History: Reports: Hx Diabetes Mellitus Type 1, Hx Diabetes Mellitus Type 2 Renal/ Medical History: Reports: Hx End Stage Renal Disease, Hx Renal Insufficiency. Denies: Hx Peritoneal Dialysis GI Medical History: Reports: Hx Gastroesophageal Reflux Disease Musculoskeletal Medical History: Reports Hx Arthritis, 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, Reports Hx Musculoskeletal Trauma Skin Medical History: Denies Hx Eczema Psychiatric Medical History: Traumatic Medical History: Denies: Hx Traumatic Brain Injury Infectious Medical History: Reports: Hx HIV Past Surgical History: Reports: Hx Orthopedic Surgery - bilateral amputation, R BKA, L AKA, Hx Vascular Surgery - left arm clot removed, IVC filter, Other - Endoscopy; Vascular surgery. - Immunizations Immunizations up to date: Yes Hx Diphtheria, Pertussis, Tetanus Vaccination: Yes Hx Pneumococcal Vaccination: 07/21/10 Review of Systems - Review of Systems Notes: My Normal Review Basic REVIEW OF SYSTEMS: CONSTITUTIONAL : Denies fever, chills, or sweats. Denies recent illness. EENT: Denies eye, ear, throat, or mouth pain or symptoms. Denies nasal or sinus congestion. CARDIOVASCULAR: Chest Tightness RESPIRATORY: Difficulty breathing GASTROINTESTINAL: Denies abdominal pain. Denies nausea, vomiting, or diarrhea. GENITOURINARY: Denies difficulty urinating, painful urination, burning, frequency, or blood in urine. MUSCULOSKELETAL: Denies neck or back pain or joint pain or swelling. SKIN: Denies rash or skin lesions. NEUROLOGICAL: Denies altered mental status or loss of consciousness. Has a headache. Denies weakness or paralysis or loss of use of either side. Denies problems with gait or speech. Denies sensory or motor loss. ALL OTHER SYSTEMS REVIEWED AND NEGATIVE. Physical Exam - Vital signs Vitals: BP 201/120 H 03/11/18 02:05 - Notes Notes: General Appearance: Well nourished, alert, cooperative, mild acute distress, no obvious discomfort. Vitals: reviewed, See vital signs table. Head: no swelling or tenderness to the head Eyes: PERRL, EOMI, Conjuctiva clear Mouth: No decreasd moisture Throat: No tonsillar inflammation, No airway obstruction, No lymphadenopathy Neck: Supple, no neck tenderness, No thyromegaly Lungs: Scattered wheezing, some basilar rales, No rhonci, No accessory muscle use, good air exchange bilaterally. Heart: Normal rate, Regular rythm, No murmur, no rub Abdomen: Normal BS, soft, No rigidity, No abdominal tenderness, No guarding, no rebound, no abdominal masses, no organomegaly Extremities:amputation of lower extremities., good pulses in all extremities, no swelling or tenderness in the extremities, no edema. Skin: warm, dry, appropriate color, no rash Neuro: speech clear, oriented x 3, normal affect, responds appropriately to questions. Cranial nerves II through XII are intact. Distal sensation intact. Patient moves upper extremities without difficulty. Lower extremities are amputated. Course - Re-evaluation Re-evalutation: 03/11/18 05:11 Patient is feeling some better but she still feels some dyspnea still has mild headache. Headache is a lot better than when he first arrived. No chest pain at this time. I will try 1 more dose of IV antihypertensive. If this does not work then he will have to be admitted for dialysis. 03/11/18 05:59 Patient symptoms are slowly improving but he still fairly hypertensive and still has low tachycardia with heart rate in the low 100s. Oxygen saturations 96% on 2 L. He said oxygen does help him feel some better. His chest pain is improving. His headache is improving. I am still concerned that he is having some continued symptoms with hypertension that is somewhat refractory to medication. I feel it is appropriate to admit for hypertensive urgency. Suspect his blood pressure probably improve once he does get dialysis. His senior piping designer is Dr. Pablo Lowe and therefore I have ordered a consult for him. I did speak with the hospitalist, , who agrees to take down the patient's information for admission. I did speak with the warehouse freight handler, Amber, who says we do have beds with dialysis capacity today. - Vital Signs Vital signs: Temp Pulse Resp BP Pulse Ox 16 201/102 H 96 03/11/18 03:45 03/11/18 03:45 03/11/18 03:30 - Laboratory Result Diagrams: 03/11/18 02:07 03/11/18 02:21 Laboratory results interpreted by me: 03/11/18 03/11/18 02:07 02:21 RBC 4.34 L Hgb 13.1 L RDW 14.6 H Plt Count 149 L Seg Neutrophils % 39.8 L Lymphocytes % 47.9 H Sodium 145.2 H Chloride 111 H Carbon Dioxide 16 L BUN 45 H Creatinine 8.74 H Est GFR ( Amer) 7 L Est GFR (Non-Af Amer) 6 L Calcium 8.3 L - EKG Interpretation by Me Additional EKG results interpreted by me: 03/11/18 02:47 EKG is reviewed and interpreted by me. EKG shows sinus rhythm with rate [address] segment elevation or depression. AK interval, QRS duration are within normal range. QTc interval is borderline. Discharge - Discharge Clinical Impression: Hypertensive urgency Chronic renal failure Qualifiers: Chronic kidney disease stage: unspecified stage Qualified Code(s): N18.9 - Chronic kidney disease, unspecified Hypertension Qualifiers: Hypertension type: renovascular hypertension Qualified Code(s): I15.0 - Renovascular hypertension Condition: Stable Disposition: ADMITTED OBSERVATION Admitting Provider: Hospitalist Unit Admitted: [facility]
[2018-03-11 02:44] LABS: ABSOLUTE EOSINOPHILS # (AUTO) 0.1 10^3/uL (0.0-0.6); ABSOLUTE LYMPHOCYTES (AUTO) 4.1 10^3/uL (0.5-4.7); ABSOLUTE MONOCYTES (AUTO) 0.9 10^3/uL (0.1-1.4); ABSOLUTE NEUT (AUTO) 3.4 10^3/uL (1.7-8.2); BASOPHILS % (AUTO) 0.5 % (0-2); EOSINOPHILS % (AUTO) 1.6 % (0-6); HEMATOCRIT 39.7 % (37.9-51.0); HEMOGLOBIN 13.1 g/dL (13.5-17.0); LYMPHOCYTES % (AUTO) 47.9 % (13-45); MEAN CORPUSCULAR HEMOGLOBIN 30.1 pg (27.0-33.4); MEAN CORPUSCULAR HGB CONC 32.9 g/dL (32.0-36.0); MEAN CORPUSCULAR VOLUME 91 fl (80-97); MONOCYTES % (AUTO) 10.2 % (3-13); PLATELET COUNT 149 10^3/uL (150-450); RED BLOOD COUNT 4.34 10^6/uL (4.35-5.55); RED CELL DISTRIBUTION WIDTH 14.6 % (11.5-14.0); SEGMENTED NEUTROPHILS % (AUTO) 39.8 % (42-78); TOTAL CELLS COUNTED % (AUTO) 100 %; WHITE BLOOD COUNT 8.6 10^3/uL (4.0-10.5)
[2018-03-11 03:05] LABS: ALANINE AMINOTRANSFERASE 34 U/L (21-72); ALBUMIN 3.7 g/dL (3.5-5.0); ALKALINE PHOSPHATASE 68 U/L (38-126); ANION GAP 18 (5-19); ASPARTATE AMINO TRANSFERASE 49 U/L (17-59); BILIRUBIN,DIRECT 0.3 mg/dL (0.0-0.4); BILIRUBIN,TOTAL 0.3 mg/dL (0.2-1.3); BLOOD UREA NITROGEN 45 mg/dL (7-20); CALCIUM 8.3 mg/dL (8.4-10.2); CARBON DIOXIDE 16 mmol/L (22-30); CHLORIDE 111 mmol/L (98-107); GLUCOSE 109 mg/dL (75-110); POTASSIUM 4.9 mmol/L (3.6-5.0); SODIUM 145.2 mmol/L (137-145); TOTAL PROTEIN 7.5 g/dL (6.3-8.2)
--- NOTE | 2018-03-11 03:19 | RADIOLOGY REPORT (SQ) ---
EXAM DESCRIPTION: XR CHEST 1 VIEW COMPLETED DATE/TIME: 03/11/2018 02:07 CLINICAL HISTORY: 62 years, Male, dyspnea COMPARISON: Prior chest x-ray performed on 01/03/2018. NUMBER OF VIEWS: One view TECHNIQUE: Portable AP upright LIMITATIONS: None. FINDINGS: The lungs are hyperinflated. There is stable increased lucency in the right upper lobe likely due to underlying emphysema. There is trace blunting of the lateral costophrenic sulci possibly due to small effusions or atelectasis. No dense airspace consolidation is identified. The cardiac silhouette is mildly enlarged. A dual-lumen left-sided dialysis catheter is present. The tip overlies the region of the superior vena cava. Surgical clips project over the superior lateral right chest wall. IMPRESSION: 1. Hyperinflation of the lungs with increased lucency in the right upper lobe likely due to underlying emphysema. 2. Blunting of the lateral costophrenic sulci possibly due to small effusions or atelectasis. 3. Cardiomegaly. 4. Grossly stable left sided dual lumen dialysis catheter.
[2018-03-11] MEDS ORDERED: CLONIDINE 0.3 MG/24 HR PATCH.TDWK TD ONE (03:54)
--- NOTE | 2018-03-11 04:32 | RADIOLOGY REPORT (SQ) ---
EXAM DESCRIPTION: CT HEAD WITHOUT IV CONTRAST COMPLETED DATE/TME: 03/11/2018 02:07 CLINICAL HISTORY: headache COMPARISON: 10/31/2015 TECHNIQUE: Axial CT of the head obtained from the skull apex to the skull base without contrast. FINDINGS: No acute intracranial hemorrhage identified. No mass, mass effect, shift of the midline, abnormal extra-axial fluid collection or CT evidence of acute ischemic change identified. The ventricular system and sulcal spaces are mildly enlarged compatible with mild cerebral atrophy. Scattered areas of hypodensity throughout the supratentorial white matter are nonspecific and may be related to chronic small vessel ischemic change. The visualized paranasal sinuses and the mastoids are clear. No skull fracture identified. Visualized orbits and globes are unremarkable. Atherosclerotic calcification of the intracranial internal carotid arteries. DLP: 1096.98 mGy-cm IMPRESSION: 1. No acute intracranial abnormality by CT criteria. This exam was performed according to our departmental dose-optimization program, which includes automated exposure control, adjustment of the mA and/or kV according to patient size and/or use of iterative reconstruction technique.
[2018-03-11] MEDS ORDERED: LABETALOL HCL INJ 20 MG/4 ML DISP.SYRIN IV ONE (05:10)
--- NOTE | 2018-03-11 08:00 | ER Document Report ---
Doctor's Note Notes: 03/11/18 07:58 This 62-year-old male patient came to the emergency room with high blood pressure shortness of breath. He did not put his Catapres patch on on Friday, 3 days ago and he did not go to dialysis on Friday as he is supposed to. His chemistries are reviewed and he is stable to go to dialysis this morning. His blood pressure has come down with treatment and he is stable to go to dialysis this morning. Dr. Lowe was consulted, and he agrees with sending the patient to dialysis, and made arrangements for him to start about 1130 this morning. The financial secretary will make arrangements for transport to come crab picker the patient at 11:00 to take him to dialysis this morning.
--- NOTE | 2018-03-11 08:40 | EKG REPORT ---
SEVERITY:- ABNORMAL ECG - SINUS RHYTHM PROBABLE LEFT ATRIAL ABNORMALITY LEFT ANTERIOR FASCICULAR BLOCK LVH WITH SECONDARY REPOLARIZATION ABNORMALITY BORDERLINE PROLONGED QT INTERVAL : Confirmed by: Beulah Storm 11-Mar-2018 08:38:40
[2018-03-11 11:04] VITALS: BP 171/96
== END 2018-03-11 11:05 | disposition home health service (06) ==
LOC: ER 02:00 → UNDOADMOB 06:07 → EH 06:07
DX: I16.0 Hypertensive urgency (principal); I12.0 Hypertensive chronic kidney disease with stage 5 chronic kidney disease or end stage renal disease; N18.9 Chronic kidney disease, unspecified; R51 Headache; R06.02 Shortness of breath; E11.22 Type 2 diabetes mellitus with diabetic chronic kidney disease; N18.6 End stage renal disease; E78.00 Pure hypercholesterolemia, unspecified; B20 Human immunodeficiency virus [HIV] disease; Z86.718 Personal history of other venous thrombosis and embolism; Z89.511 Acquired absence of right leg below knee; Z89.612 Acquired absence of left leg above knee
CPT/HCPCS: 93005; 96376; 99285; 96374; 96375; 36415; 85025; 80053; 84484; 71045; 70450; 93010; J3490; J0360; J2270

== ENCOUNTER 2018-03-14 12:19 | Emergency (ER) | payer MEDICAID ==
[2018-03-14] MEDS ORDERED: DIPHENHYDRAMINE HCL 50 MG/ML VIAL IV ONE (13:10)
[2018-03-14] MEDS ORDERED: IPRATROPIUM/ALBUTEROL 0.5-2.5 MG/3 ML AMPUL NEB ONE (13:10)
[2018-03-14] MEDS ORDERED: METOCLOPRAMIDE HCL INJ/PF 10 MG/2 ML SDV IV ONE (13:10)
[2018-03-14] MEDS ORDERED: FENTANYL CITRATE INJ/PF 100 MCG/2 ML AMPUL IV ONE (13:37)
[2018-03-14 13:49] LABS: ABSOLUTE EOSINOPHILS # (AUTO) 0.2 10^3/uL (0.0-0.6); ABSOLUTE LYMPHOCYTES (AUTO) 2.1 10^3/uL (0.5-4.7); ABSOLUTE MONOCYTES (AUTO) 0.5 10^3/uL (0.1-1.4); ABSOLUTE NEUT (AUTO) 3.6 10^3/uL (1.7-8.2); BASOPHILS % (AUTO) 0.5 % (0-2); EOSINOPHILS % (AUTO) 2.5 % (0-6); HEMATOCRIT 37.6 % (37.9-51.0); HEMOGLOBIN 12.7 g/dL (13.5-17.0); LYMPHOCYTES % (AUTO) 32.8 % (13-45); MEAN CORPUSCULAR HEMOGLOBIN 30.8 pg (27.0-33.4); MEAN CORPUSCULAR HGB CONC 33.7 g/dL (32.0-36.0); MEAN CORPUSCULAR VOLUME 91 fl (80-97); MONOCYTES % (AUTO) 7.7 % (3-13); PLATELET COUNT 133 10^3/uL (150-450); RED BLOOD COUNT 4.12 10^6/uL (4.35-5.55); RED CELL DISTRIBUTION WIDTH 14.3 % (11.5-14.0); SEGMENTED NEUTROPHILS % (AUTO) 56.5 % (42-78); TOTAL CELLS COUNTED % (AUTO) 100 %; WHITE BLOOD COUNT 6.4 10^3/uL (4.0-10.5)
[2018-03-14 13:52] LABS: APPEARANCE,URINE CLEAR; BILIRUBIN,URINE NEGATIVE (NEGATIVE); COLOR,URINE YELLOW; GLUCOSE, URINE 150 mg/dL (NEGATIVE); KETONES,URINE NEGATIVE (NEGATIVE); LEUKOCYTE ESTERASE,URINE TRACE (NEGATIVE); NITRITE,URINE NEGATIVE (NEGATIVE); PROTEIN,URINE >=500 mg/dL (NEGATIVE); URINE SPECIFIC GRAVITY 1.011; UROBILINOGEN,URINE NEGATIVE mg/dL (<2.0)
[2018-03-14 13:54] LABS: ALANINE AMINOTRANSFERASE 24 U/L (21-72); ALBUMIN 3.5 g/dL (3.5-5.0); ALKALINE PHOSPHATASE 51 U/L (38-126); ANION GAP 13 (5-19); ASPARTATE AMINO TRANSFERASE 24 U/L (17-59); BILIRUBIN,DIRECT 0.4 mg/dL (0.0-0.4); BILIRUBIN,TOTAL 0.4 mg/dL (0.2-1.3); BLOOD UREA NITROGEN 36 mg/dL (7-20); CALCIUM 8.5 mg/dL (8.4-10.2); CARBON DIOXIDE 21 mmol/L (22-30); CHLORIDE 108 mmol/L (98-107); CREATINE KINASE 53 U/L (55-170); GLUCOSE 158 mg/dL (75-110); POTASSIUM 4.3 mmol/L (3.6-5.0)
--- NOTE | 2018-03-14 13:55 | RADIOLOGY REPORT (SQ) ---
EXAM DESCRIPTION: CHEST 2 VIEWS COMPLETED DATE/TIME: 03/14/2018 1:46 pm REASON FOR STUDY: sob COMPARISON: 09/10/2017. NUMBER OF VIEWS: Two view. TECHNIQUE: Frontal and lateral radiographic views of the chest acquired. LIMITATIONS: None. FINDINGS: LUNGS AND PLEURA: No opacities, masses or pneumothorax. No pleural effusion. Attenuated bl ood vessels and flattened franklin-diaphragms. MEDIASTINUM AND HILAR STRUCTURES: No masses. No contour abnormalities. HEART AND VASCULAR STRUCTURES: Heart normal in size and contour. No evidence for failure. BONES: No acute findings. HARDWARE: Multi lumen catheter. Surgical clips. OTHER: No other significant finding. IMPRESSION: COPD. NO ACUTE RADIOGRAPHIC FINDING IN THE CHEST. TECHNICAL DOCUMENTATION: JOB ID: [id number] [employer]- All Rights Reserved Reading location - IP/workstation name: [email or web address]
[2018-03-14 14:10] LABS: TROPONIN I 0.04 ng/mL
[2018-03-14 14:19] LABS: CREATINE KINASE MB 0.9 ng/mL (<4.55)
--- NOTE | 2018-03-14 15:02 | ER Document Report ---
ED General - General Chief Complaint: Chest Pain Stated Complaint: HEADACHE,COUGH,DIFFICULTY BREATHING Time Seen by Provider: 03/14/18 12:54 Mode of Arrival: Medic Information source: Patient, [facility] Records Notes: 62-year-old male with coronary artery disease, congestive heart failure, hypertension, chronic kidney disease, hyperlipidemia, type 1 diabetes presents with complaint of headache, shortness of breath that started just prior to arrival. Patient is wheelchair bound secondary to bilateral BKA's and states that he has experienced dyspnea on exertion. He denies any leg swelling, abdominal distention, chest pain. Patient also complaining of a generalized headache. Headache is described as aching, throbbing and without associated nausea, vomiting or photophobia. Patient denies fever, chills, chest pain. He does admit to associated productive cough. TRAVEL OUTSIDE OF THE [place] IN LAST 30 DAYS: No - HPI Onset: Just prior to arrival Onset/Duration: Sudden, Persistent Quality of pain: Achy, Throbbing Severity: Mild Associated symptoms: Productive cough, Headache, Shortness of breath. denies: Chest pain Exacerbated by: Denies Relieved by: Denies Similar symptoms previously: Yes Recently seen / treated by doctor: Yes - 03/08/18 [facility] emergency department - Related Data Allergies/Adverse Reactions: No Known Allergies Allergy (Verified 03/15/18 08:44) Past Medical History - General Information source: Patient, [facility] Records - Social History Smoking Status: Former Smoker Frequency of alcohol use: Rare Drug Abuse: Cocaine Lives with: Alone Family History: CAD, CVA, DM, Hyperlipidemia, Hypertension, Malignancy Patient has suicidal ideation: No Patient has homicidal ideation: No - Past Medical History Cardiac Medical History: Reports: Hx Congestive Heart Failure, Hx DVT, Hx Heart Attack, Hx Hypercholesterolemia, Hx Hypertension, Hx Peripheral Vascular Disease , Hx Pulmonary Embolism Pulmonary Medical History: Reports: Hx Bronchitis, Hx COPD, Hx Pneumonia Denies: Hx Asthma Neurological Medical History: Denies: Hx Migraine, Hx Seizures Endocrine Medical History: Reports: Hx Diabetes Mellitus Type 1, Hx Diabetes Mellitus Type 2 Renal/ Medical History: Reports: Hx End Stage Renal Disease, Hx Renal Insufficiency. Denies: Hx Peritoneal Dialysis GI Medical History: Reports: Hx Gastroesophageal Reflux Disease Musculoskeletal Medical History: Reports Hx Arthritis, 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, Reports Hx Musculoskeletal Trauma Skin Medical History: Denies Hx Eczema Psychiatric Medical History: Traumatic Medical History: Denies: Hx Traumatic Brain Injury Infectious Medical History: Reports: Hx HIV Past Surgical History: Reports: Hx Orthopedic Surgery - bilateral amputation, R BKA, L AKA, Hx Vascular Surgery - left arm clot removed, IVC filter, Other - Endoscopy; Vascular surgery. - Immunizations Immunizations up to date: Yes Hx Diphtheria, Pertussis, Tetanus Vaccination: Yes Hx Pneumococcal Vaccination: 07/21/10 Review of Systems - Review of Systems Notes: REVIEW OF SYSTEMS: CONSTITUTIONAL : Denies fever, chills, or sweats. Denies recent illness. Denies weight loss, recent hospitalizations. EENT: Denies visual changes, eye pain. Denies nasal or sinus congestion or discharge. Denies sore throat, oral lesions, difficulty swallowing. CARDIOVASCULAR: Denies chest pain. Denies palpitations. Denies lower extremity edema. RESPIRATORY: Denies cough, cold, or chest congestion. GASTROINTESTINAL: Denies abdominal pain or distention. Denies nausea, vomiting , or diarrhea. Denies blood in vomitus, stools, or per rectum. Denies black, tarry stools. Denies constipation. GENITOURINARY: Denies difficulty urinating, painful urination, frequency, blood in urine, or vaginal discharge. MUSCULOSKELETAL: Denies back or neck pain or stiffness. Denies joint pain or swelling. SKIN: Denies rash, lesions or sores. HEMATOLOGIC : Denies easy bruising or bleeding. LYMPHATIC: Denies swollen glands. NEUROLOGICAL: Denies confusion or altered mental status. Denies passing out or loss of consciousness. Denies dizziness or lightheadedness. Denies weakness or paralysis. Denies problems difficulty with ambulation, slurred speech. Denies sensory loss, numbness, or tingling. Denies seizures. PSYCHIATRIC: Denies anxiety or stress. Denies depression, suicidal ideation, or homicidal ideation. Denies visual or auditory hallucinations. Physical Exam - Vital signs Vitals: Temp Pulse Resp BP Pulse Ox 98.8 F 92 18 174/84 H 97 03/14/18 12:35 03/14/18 12:35 03/14/18 12:35 03/14/18 12:35 03/14/18 12:35 - Notes Notes: PHYSICAL EXAMINATION: GENERAL: Well-appearing, well-nourished and in no acute distress. HEAD: Atraumatic, normocephalic. EYES: Pupils equal round and reactive to light, extraocular movements intact, sclera anicteric, conjunctiva are normal. ENT: Nares patent, oropharynx clear without exudates. Moist mucous membranes. NECK: Normal range of motion, supple without lymphadenopathy LUNGS: Breath sounds clear to auscultation bilaterally and equal. No wheezes rales or rhonchi. No respiratory distress, no retractions, patient is able to speak in full sentences. HEART: Regular rate and rhythm without murmurs ABDOMEN: Soft, nontender, nondistended abdomen. No guarding, no rebound. No masses appreciated. Musculoskeletal: Normal range of motion, no pitting or edema. No cyanosis. NEUROLOGICAL: Cranial nerves grossly intact. Normal speech, normal gait. Normal sensory, motor exams PSYCH: Normal mood, normal affect. SKIN: Warm, Dry, normal turgor, no rashes or lesions noted. Course - Re-evaluation Re-evalutation: Laboratory 03/14/18 03/14/18 03/14/18 12:57 12:57 12:57 WBC 6.4 RBC 4.12 L Hgb 12.7 L Hct 37.6 L MCV 91 MCH 30.8 MCHC 33.7 RDW 14.3 H Plt Count 133 L Seg Neutrophils % 56.5 Lymphocytes % 32.8 Monocytes % 7.7 Eosinophils % 2.5 Basophils % 0.5 Absolute Neutrophils 3.6 Absolute Lymphocytes 2.1 Absolute Monocytes 0.5 Absolute Eosinophils 0.2 Absolute Basophils 0.0 Sodium 142.0 Potassium 4.3 Chloride 108 H Carbon Dioxide 21 L Anion Gap 13 BUN 36 H Creatinine 5.63 H Est GFR ( Amer) 12 L Est GFR (Non-Af Amer) 10 L Glucose 158 H Calcium 8.5 Total Bilirubin 0.4 Direct Bilirubin 0.4 Neonat Total Bilirubin Not Reportable Neonat Direct Bilirubin Not Reportable Neonat Indirect Bili Not Reportable AST 24 ALT 24 Alkaline Phosphatase 51 Creatine Kinase 53 L CK-MB (CK-2) 0.90 Troponin I 0.040 NT-Pro-B Natriuret Pep 86429 H Total Protein 7.0 Albumin 3.5 Urine Color Urine Appearance Urine pH Ur Specific [place] Urine Protein Urine Glucose (UA) Urine Ketones Urine Blood Urine Nitrite Urine Bilirubin Urine Urobilinogen Ur Leukocyte Esterase Urine WBC (Auto) Urine RBC (Auto) Urine Mucus (Auto) Urine Ascorbic Acid 03/14/18 12:57 WBC RBC Hgb Hct MCV MCH MCHC RDW Plt Count Seg Neutrophils % Lymphocytes % Monocytes % Eosinophils % Basophils % Absolute Neutrophils Absolute Lymphocytes Absolute Monocytes Absolute Eosinophils Absolute Basophils Sodium Potassium Chloride Carbon Dioxide Anion Gap BUN Creatinine Est GFR ( Amer) Est GFR (Non-Af Amer) Glucose Calcium Total Bilirubin Direct Bilirubin Neonat Total Bilirubin Neonat Direct Bilirubin Neonat Indirect Bili AST ALT Alkaline Phosphatase Creatine Kinase CK-MB (CK-2) Troponin I NT-Pro-B Natriuret Pep Total Protein Albumin Urine Color YELLOW Urine Appearance CLEAR Urine pH 8.0 Ur Specific [place] 1.011 Urine Protein >=500 H Urine Glucose (UA) 150 H Urine Ketones NEGATIVE Urine Blood NEGATIVE Urine Nitrite NEGATIVE Urine Bilirubin NEGATIVE Urine Urobilinogen NEGATIVE Ur Leukocyte Esterase TRACE H Urine WBC (Auto) 6 Urine RBC (Auto) 1 Urine Mucus (Auto) RARE Urine Ascorbic Acid NEGATIVE Chest X-Ray 03/14/18 13:01 IMPRESSION: COPD. NO ACUTE RADIOGRAPHIC FINDING IN THE CHEST. 62-year-old male with coronary artery disease, congestive heart failure, hypertension, chronic kidney disease, hyperlipidemia, type 1 diabetes presents with complaint of headache, shortness of breath that started just prior to arrival. Patient is wheelchair bound secondary to bilateral BKA's and states that he has experienced dyspnea on exertion. He denies any leg swelling, abdominal distention, chest pain. Patient also complaining of a generalized headache. Headache is described as aching, throbbing and without associated nausea, vomiting or photophobia. Patient denies fever, chills, chest pain. He does admit to associated productive cough. Upon arrival patient is well- appearing. He has no retractions, tachypnea, hypoxia or respiratory distress. He is saturating percent on room air. Patient did receive Reglan, Benadryl for his headache as well as a DuoNeb for his shortness of breath. CBC shows no leukocytosis and mild anemia. CMP is consistent with chronic kidney disease. Patient does have an elevated BNP but no evidence of vascular congestion on chest x-ray. Elevated BNP could be associated with chronic kidney disease. Patient does not have any peripheral edema. Vital signs stable. Patient did receive Reglan, Benadryl for his headache and a DuoNeb breathing treatment for his shortness of breath. Bedside ultrasound shows a lines with out multiple B lines that would be consistent with interstitial edema. I did discuss the findings with the patient who is agreeable with discharge home. 03/14/18 15:01 Patient reports complete resolution of his headache and shortness of breath after receiving Reglan, Benadryl and a DuoNeb. Patient provided the opportunity to ask questions, and express concerns. Discharge instructions discussed. Patient is agreeable with discharge home. Return indications explained and discussed with the patient who displays understanding. Patient encouraged to return to the emergency department immediately with any concerns. - Vital Signs Vital signs: Temp Pulse Resp BP Pulse Ox 98.2 F 92 18 162/85 H 99 03/14/18 15:00 03/14/18 12:35 03/14/18 14:01 03/14/18 14:01 03/14/18 14:01 - Laboratory Result Diagrams: 03/14/18 12:57 03/14/18 12:57 Laboratory results interpreted by me: 03/14/18 03/14/18 03/14/18 12:57 12:57 12:57 RBC 4.12 L Hgb 12.7 L Hct 37.6 L RDW 14.3 H Plt Count 133 L Chloride 108 H Carbon Dioxide 21 L BUN 36 H Creatinine 5.63 H Est GFR ( Amer) 12 L Est GFR (Non-Af Amer) 10 L Glucose 158 H Creatine Kinase 53 L NT-Pro-B Natriuret Pep 94625 H Urine Protein Urine Glucose (UA) Ur Leukocyte Esterase 03/14/18 12:57 RBC Hgb Hct RDW Plt Count Chloride Carbon Dioxide BUN Creatinine Est GFR ( Amer) Est GFR (Non-Af Amer) Glucose Creatine Kinase NT-Pro-B Natriuret Pep Urine Protein >=500 H Urine Glucose (UA) 150 H Ur Leukocyte Esterase TRACE H - Diagnostic Test Radiology reviewed: Image reviewed, Reports reviewed - EKG Interpretation by Me EKG shows normal: Sinus rhythm Rate: Normal Rhythm: NSR [place]/QRS: Left axis deviation When compared to previous EKG there are: No significant change Discharge - Discharge Clinical Impression: Essential hypertension, ESRD (end stage renal disease) on dialysis, Elevated brain natriuretic peptide (BNP) level Dyspnea Qualifiers: Dyspnea type: dyspnea on exertion Qualified Code(s): R06.09 - Other forms of dyspnea Chronic renal failure Qualifiers: Chronic kidney disease stage: unspecified stage Qualified Code(s): N18.9 - Chronic kidney disease, unspecified COPD (chronic obstructive pulmonary disease) Qualifiers: COPD type: unspecified COPD Qualified Code(s): J44.9 - Chronic obstructive pulmonary disease, unspecified Headache Qualifiers: Headache type: unspecified Headache chronicity pattern: unspecified pattern Intractability: not intractable Qualified Code(s): R51 - Headache Condition: Good Disposition: HOME, SELF-CARE Instructions: Chronic Obstructive Lung Disease ([facility]), Chest Pain of Unclear Cause ([facility]), Headache ([facility]) Forms: Elevated Blood Pressure, Smoking Cessation Education
[2018-03-14 15:23] VITALS: BP 162/85
--- NOTE | 2018-03-14 20:49 | EKG REPORT ---
SEVERITY:- ABNORMAL ECG - SINUS RHYTHM PROBABLE LEFT ATRIAL ABNORMALITY LEFT AXIS DEVIATION LVH WITH SECONDARY REPOLARIZATION ABNORMALITY CONSIDER ANTERIOR INFARCT BORDERLINE PROLONGED QT INTERVAL : Confirmed by: Beulah Strom 14-Mar-2018 20:49:09
--- NOTE | 2018-03-16 07:55 | EKG REPORT ---
SEVERITY:- ABNORMAL ECG - SINUS TACHYCARDIA PROBABLE LEFT ATRIAL ABNORMALITY LEFT ANTERIOR FASCICULAR BLOCK LVH WITH SECONDARY REPOLARIZATION ABNORMALITY : Confirmed by: Marco Young MD 16-Mar-2018 07:54:39
== END 2018-03-14 15:22 | disposition home or self-care (01) ==
LOC: ER 12:19
DX: I11.0 Hypertensive heart disease with heart failure (principal); N18.6 End stage renal disease; I13.2 Hypertensive heart and chronic kidney disease with heart failure and with stage 5 chronic kidney disease, or end stage renal disease; E10.22 Type 1 diabetes mellitus with diabetic chronic kidney disease; R07.9 Chest pain, unspecified; R51 Headache; R06.09 Other forms of dyspnea; J44.9 Chronic obstructive pulmonary disease, unspecified; R05 Cough; I25.10 Atherosclerotic heart disease of native coronary artery without angina pectoris; I50.9 Heart failure, unspecified; B20 Human immunodeficiency virus [HIV] disease; Z89.612 Acquired absence of left leg above knee; Z89.511 Acquired absence of right leg below knee; I25.2 Old myocardial infarction; Z86.711 Personal history of pulmonary embolism; Z99.2 Dependence on renal dialysis
CPT/HCPCS: 93005; 94640; 99285; 96374; 96375; 36415; 82553; 82550; 85025; 80053; 81001; 84484; 83880; 71046; 93010; J1200; J2765; J7620

== ENCOUNTER 2018-03-15 08:14 | Inpatient (IN) | payer MEDICAID ==
[2018-03-15] MEDS ORDERED: NITROGLYCERIN/D5W 50 MG/250 ML RTUINJ IV ONE (08:18)
[2018-03-15 08:44] LABS: ABSOLUTE EOSINOPHILS # (AUTO) 0.2 10^3/uL (0.0-0.6); ABSOLUTE LYMPHOCYTES (AUTO) 4.8 10^3/uL (0.5-4.7); ABSOLUTE MONOCYTES (AUTO) 0.7 10^3/uL (0.1-1.4); ABSOLUTE NEUT (AUTO) 3.3 10^3/uL (1.7-8.2); BASOPHILS % (AUTO) 0.4 % (0-2); EOSINOPHILS % (AUTO) 2.4 % (0-6); HEMATOCRIT 40.9 % (37.9-51.0); HEMOGLOBIN 13.7 g/dL (13.5-17.0); LYMPHOCYTES % (AUTO) 53.4 % (13-45); MEAN CORPUSCULAR HEMOGLOBIN 30.9 pg (27.0-33.4); MEAN CORPUSCULAR HGB CONC 33.4 g/dL (32.0-36.0); MEAN CORPUSCULAR VOLUME 92 fl (80-97); MONOCYTES % (AUTO) 7.5 % (3-13); PLATELET COUNT 149 10^3/uL (150-450); RED BLOOD COUNT 4.43 10^6/uL (4.35-5.55); RED CELL DISTRIBUTION WIDTH 14.8 % (11.5-14.0); SEGMENTED NEUTROPHILS % (AUTO) 36.3 % (42-78); TOTAL CELLS COUNTED % (AUTO) 100 %
[2018-03-15 08:45] LABS: VENOUS BLOOD BASE EXCESS -10.9 mmol/L; VENOUS BLOOD HCO3 18.2 mmol/L (20-32)
[2018-03-15 08:48] LABS: VENOUS BLOOD PH 7.15 (7.30-7.42)
[2018-03-15 08:49] LABS: INTERNATIONAL RATION (INR) 1.06; PROTHROMBIN TIME 14.4 SEC (11.4-15.4)
--- NOTE | 2018-03-15 08:49 | RADIOLOGY REPORT (SQ) ---
EXAM DESCRIPTION: CHEST SINGLE VIEW COMPLETED DATE/TIME: 03/15/2018 8:41 am REASON FOR STUDY: sob COMPARISON: 03/14/2018. NUMBER OF VIEWS: One view. TECHNIQUE: Single frontal radiographic view of the chest acquired. LIMITATIONS: None. FINDINGS: LUNGS AND PLEURA: Mild chronic interstitial changes. No opacities, masses or pneumothorax . No pleural effusion. Attenuated blood vessels and flattened franklin-diaphragms. MEDIASTINUM AND HILAR STRUCTURES: No masses. Contour normal. HEART AND VASCULAR STRUCTURES: Heart normal in size. Normal vasculature. BONES: No acute findings. HARDWARE: Multi lumen catheter. OTHER: No other significant finding. IMPRESSION: COPD. NO ACUTE RADIOGRAPHIC FINDING IN THE CHEST. TECHNICAL DOCUMENTATION: JOB ID: [id number] [email or web address] Rights Reserved Reading location - IP/workstation name: [email or web address]
[2018-03-15] MEDS ORDERED: NITROGLYCERIN/D5W 50 MG/250 ML RTUINJ IV PRN (09:14)
[2018-03-15 09:18] LABS: ALANINE AMINOTRANSFERASE 96 U/L (21-72); ALBUMIN 3.7 g/dL (3.5-5.0); ALKALINE PHOSPHATASE 70 U/L (38-126); ANION GAP 15 (5-19); ASPARTATE AMINO TRANSFERASE 106 U/L (17-59); BILIRUBIN,DIRECT 0.5 mg/dL (0.0-0.4); BILIRUBIN,TOTAL 0.5 mg/dL (0.2-1.3); BLOOD UREA NITROGEN 46 mg/dL (7-20); CALCIUM 8.4 mg/dL (8.4-10.2); CARBON DIOXIDE 16 mmol/L (22-30); CHLORIDE 113 mmol/L (98-107); GLUCOSE 179 mg/dL (75-110); SODIUM 144.2 mmol/L (137-145); TOTAL PROTEIN 7.3 g/dL (6.3-8.2)
[2018-03-15 09:25] LABS: POTASSIUM 5.5 mmol/L (3.6-5.0)
[2018-03-15 09:31] LABS: TROPONIN I 0.053 ng/mL
[2018-03-15] MEDS ORDERED: ACETAMINOPHEN 325 MG TABLET PO ONE (10:22)
--- NOTE | 2018-03-15 11:31 | ER Document Report ---
ED General - General Chief Complaint: Respiratory Distress Stated Complaint: BREATHING DIFFICULTY Time Seen by Provider: 03/15/18 08:26 TRAVEL OUTSIDE OF THE [place] IN LAST 30 DAYS: No - HPI Patient complains to provider of: Difficulty breathing respiratory distress Notes: Patient coming in for evaluation shortness of breath. Patient according EMS was found the patient hypoxic with SPO2 of 79. Patient had a heart rate 150 with a blood pressure greater than 250. Patient does have a history of HIV and end-stage renal disease on dialysis CHF diabetes. Patient upon our evaluation here in ER transition over to BiPAP. Patient was diaphoretic at the time was tachycardic with a blood pressure now in the 180s. Patient received albuterol Solu-Medrol by EMS in transport. Patient was able to speak stating he has minimal improvement at this time. Patient states he has been compliant with his dialysis Friday has not missed any. Patient also has a significant history for cocaine abuse however currently denies any cocaine ingestion. Patient was monitored in the trauma bay for approximate 5 minutes with great improvement after BiPAP heart rate continues to gradually go down from 150s-110. Blood pressure also improved from EMS 251st check in the ER 180 systolic and gradually came down to 150 patient also had 1 inch of Nitropaste on his chest. Denies any chest pain fevers chills nausea vomiting - Related Data Allergies/Adverse Reactions: No Known Allergies Allergy (Verified 03/15/18 08:44) Past Medical History - Social History Smoking Status: Current Some Day Smoker Frequency of alcohol use: None Drug Abuse: None Family History: CAD, CVA, DM, Hyperlipidemia, Hypertension, Malignancy Patient has suicidal ideation: No Patient has homicidal ideation: No - Past Medical History Cardiac Medical History: Reports: Hx Congestive Heart Failure, Hx DVT, Hx Heart Attack, Hx Hypercholesterolemia, Hx Hypertension, Hx Peripheral Vascular Disease , Hx Pulmonary Embolism Pulmonary Medical History: Reports: Hx Bronchitis, Hx COPD, Hx Pneumonia Denies: Hx Asthma Neurological Medical History: Denies: Hx Migraine, Hx Seizures Endocrine Medical History: Reports: Hx Diabetes Mellitus Type 1, Hx Diabetes Mellitus Type 2 Renal/ Medical History: Reports: Hx End Stage Renal Disease, Hx Renal Insufficiency. Denies: Hx Peritoneal Dialysis - dialysis M/W/F GI Medical History: Reports: Hx Gastroesophageal Reflux Disease Musculoskeletal Medical History: Reports Hx Arthritis, 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, Reports Hx Musculoskeletal Trauma Skin Medical History: Denies Hx Eczema Psychiatric Medical History: Traumatic Medical History: Denies: Hx Traumatic Brain Injury Infectious Medical History: Reports: Hx HIV Past Surgical History: Reports: Hx Orthopedic Surgery - bilateral amputation, R BKA, L AKA, Hx Vascular Surgery - left arm clot removed, IVC filter, Other - Endoscopy; Vascular surgery. - Immunizations Immunizations up to date: Yes Hx Diphtheria, Pertussis, Tetanus Vaccination: Yes Hx Pneumococcal Vaccination: 07/21/10 Review of Systems - Review of Systems Constitutional: No symptoms reported EENT: No symptoms reported Cardiovascular: No symptoms reported Respiratory: Short of breath Gastrointestinal: No symptoms reported Genitourinary: No symptoms reported Male Genitourinary: No symptoms reported Musculoskeletal: No symptoms reported Skin: No symptoms reported Hematologic/Lymphatic: No symptoms reported Neurological/Psychological: No symptoms reported -: Yes All other systems reviewed and negative Physical Exam - Vital signs Vitals: Resp Pulse Ox 28 H 100 03/15/18 08:17 03/15/18 08:17 Interpretation: Hypertensive, Tachycardic - General General appearance: Alert In distress: Moderate - HEENT Head: Normocephalic, Atraumatic Eyes: Normal Pupils: PERRL - Respiratory Respiratory status: Respiratory distress Chest status: Nontender Breath sounds: Rhonchi, Wheezing Chest palpation: Normal Notes: Dialysis port left upper chest with no blushing of the dressing no signs of infection - Cardiovascular Rhythm: Regular Heart sounds: Normal auscultation Murmur: No - Abdominal Inspection: Normal Distension: No distension Bowel sounds: Normal Tenderness: Nontender Organomegaly: No organomegaly - Back Back: Normal, Nontender - Extremities General upper extremity: Normal inspection, Nontender, Normal color, Normal ROM , Normal temperature General lower extremity: Nontender, Normal color, Normal temperature. No: Normal inspection - Bilateral lower leg amputations - Neurological Neuro grossly intact: Yes Cognition: Normal Orientation: AAOx4 Star Coma Scale Eye Opening: Spontaneous Star Coma Scale Verbal: Oriented [place] Coma Scale Motor: Obeys Commands [place] Coma Scale Total: 15 Speech: Normal Motor strength normal: LUE, RUE, LLE, RLE Sensory: Normal - Psychological Associated symptoms: Normal affect, Normal mood - Skin Skin Temperature: Warm Skin Moisture: Dry Skin Color: Normal Course - Re-evaluation Re-evalutation: 03/15/18 11:30 Patient coming in for evaluation of respiratory distress. Patient was transitioned from CPAP to BiPAP. He in this report and significantly elevated blood pressure and tachycardia. Chest x-ray showed some slight cephalization consistent with vascular congestion. Patient does have end-stage renal disease and is on dialysis. At the BiPAP patient's respiratory distress improved dramatically. Laboratory studies also showed a slight hyperkalemia with a potassium of 5.4. EKG does not show any acute changes consistent with hyperkalemia. 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 Lowe waiting on a return phone call. Otherwise patient stable at this time. 03/15/18 15:07 Did not receive a phone call back from Dr. Lowe. Did discuss with the hospitalist at this time patient does not look to require emergent dialysis but will require dialysis tomorrow. Continue using BiPAP however we were able to initially wean him off to nasal cannula 3 L. Patient urinalysis that was done day prior to arrival had a drug screen performed on that showing positive for cocaine. Most likely etiology of the patient's acute respiratory distress and acute compromise. Patient's case was discussed with the hospitalist will admit the patient for further evaluation - Vital Signs Vital signs: Temp Pulse Resp BP Pulse Ox 18 167/101 H 99 03/15/18 13:51 03/15/18 13:51 03/15/18 13:51 - Laboratory Result Diagrams: 03/15/18 08:20 03/15/18 12:55 Laboratory results interpreted by me: 03/15/18 03/15/18 03/15/18 08:20 08:20 08:20 RDW 14.8 H Plt Count 149 L Seg Neutrophils % 36.3 L Lymphocytes % 53.4 H Absolute Lymphocytes 4.8 H ABG pO2 ABG HCO3 ABG Total CO2 VBG pH 7.15 L* VBG HCO3 18.2 L Potassium 5.5 H D Chloride 113 H Carbon Dioxide 16 L BUN 46 H Creatinine 6.65 H Est GFR ( Amer) 10 L Est GFR (Non-Af Amer) 8 L Glucose 179 H Lactic Acid Direct Bilirubin 0.5 H AST 106 H ALT 96 H NT-Pro-B Natriuret Pep Urine Protein Urine Glucose (UA) Ur Leukocyte Esterase 03/15/18 03/15/18 03/15/18 08:20 11:33 12:47 RDW Plt Count Seg Neutrophils % Lymphocytes % Absolute Lymphocytes ABG pO2 110.3 H ABG HCO3 19.7 L ABG Total CO2 20.8 L VBG pH VBG HCO3 Potassium Chloride Carbon Dioxide BUN Creatinine Est GFR ( Amer) Est GFR (Non-Af Amer) Glucose Lactic Acid Direct Bilirubin AST ALT NT-Pro-B Natriuret Pep 82072 H Urine Protein 100 H Urine Glucose (UA) 50 H Ur Leukocyte Esterase TRACE H 03/15/18 03/15/18 12:55 12:55 RDW Plt Count Seg Neutrophils % Lymphocytes % Absolute Lymphocytes ABG pO2 ABG HCO3 ABG Total CO2 VBG pH VBG HCO3 Potassium 5.5 H Chloride 111 H Carbon Dioxide 16 L BUN 48 H Creatinine 6.76 H Est GFR ( Amer) 10 L Est GFR (Non-Af Amer) 8 L Glucose 152 H Lactic Acid 2.8 H Direct Bilirubin AST ALT NT-Pro-B Natriuret Pep Urine Protein Urine Glucose (UA) Ur Leukocyte Esterase Critical Care Note - Critical Care Note Total time excluding time spent on procedures (mins): 40 Comments: Multiple evaluation for patient requiring BiPAP respiratory distress Discharge - Discharge Clinical Impression: Chronic renal failure, HIV (human immunodeficiency virus infection), Cocaine abuse, Tobacco abuse, CHF (congestive heart failure), Hyperkalemia, Respiratory distress Condition: Good Disposition: ADMITTED INPATIENT Admitting Provider: Hospitalist - Eugenio Unit Admitted: [facility]
[2018-03-15 12:16] LABS: ARTERIAL BLOOD BASE EXCESS -5.2 mmol/L; ARTERIAL BLOOD H2CO3 1.09 mmol/L (1.05-1.35); ARTERIAL BLOOD HCO3 19.7 mmol/L (20-26); ARTERIAL BLOOD O2 SATURATION 97.9 % (94-98); ARTERIAL BLOOD PCO2 36.3 mmHg (35-45); ARTERIAL BLOOD PH 7.35 (7.35-7.45); ARTERIAL BLOOD PO2 110.3 mmHg (80-100); ARTERIAL BLOOD TOTAL CO2 20.8 mmol/L (23-27)
[2018-03-15 12:17] LABS: ARTERIAL BLOOD FIO2 30%
[2018-03-15] MEDS ORDERED: NITROGLYCERIN 2% OINTMENT 1 GM PACKET TP ONE ×2 (12:33→17:30)
[2018-03-15 13:18] LABS: APPEARANCE,URINE CLEAR; BILIRUBIN,URINE NEGATIVE (NEGATIVE); COLOR,URINE YELLOW; GLUCOSE, URINE 50 mg/dL (NEGATIVE); KETONES,URINE NEGATIVE (NEGATIVE); LEUKOCYTE ESTERASE,URINE TRACE (NEGATIVE); NITRITE,URINE NEGATIVE (NEGATIVE); PROTEIN,URINE 100 mg/dL (NEGATIVE); URINE SPECIFIC GRAVITY 1.011; UROBILINOGEN,URINE NEGATIVE mg/dL (<2.0)
[2018-03-15 13:22] LABS: ANION GAP 16 (5-19); BLOOD UREA NITROGEN 48 mg/dL (7-20); CALCIUM 8.5 mg/dL (8.4-10.2); CARBON DIOXIDE 16 mmol/L (22-30); CHLORIDE 111 mmol/L (98-107); GLUCOSE 152 mg/dL (75-110); POTASSIUM 5.5 mmol/L (3.6-5.0); SODIUM 142.6 mmol/L (137-145)
[2018-03-15 13:23] LABS: URINE AMPHETAMINES SCREEN NEGATIVE; URINE BARBITURATES SCREEN NEGATIVE; URINE BENZODIAZEPINES SCREEN NEGATIVE; URINE COCAINE SCREEN UNCONFIRMED POSITIVE; URINE MARIJUANA (THC) SCREEN NEGATIVE; URINE METHADONE SCREEN NEGATIVE; URINE PHENCYCLIDINE SCREEN NEGATIVE
[2018-03-15] MEDS: HEPARIN SOD (PORCINE) 5,000 UNIT/ML 1 ML SYRINGE SUBCUT SCH ×2 (15:18→21:11)
[2018-03-15] MEDS ORDERED: HYDRALAZINE HCL INJ/PF 20 MG/1 ML SDV IV PRN (16:45)
[2018-03-15] MEDS ORDERED: BUMETANIDE INJ/PF 1 MG/4 ML SDV IV SCH (16:45)
[2018-03-15] MEDS ORDERED: AMLODIPINE BESYLATE 10 MG TABLET PO ONE (17:00)
[2018-03-15] MEDS ORDERED: ISOSORBIDE MONONITRATE 60 MG TAB.ER.24H PO ONE (17:00)
[2018-03-15] MEDS ORDERED: CARVEDILOL 12.5 MG TABLET PO SCH (17:00)
--- NOTE | 2018-03-15 17:31 | RADIOLOGY REPORT (SQ) ---
EXAM DESCRIPTION: CHEST SINGLE VIEW COMPLETED DATE/TIME: 03/15/2018 5:22 pm REASON FOR STUDY: Dyspnea, hypoxia, ?pulmonary edema COMPARISON: 03/15/2018 EXAM PARAMETERS: NUMBER OF VIEWS: One view. TECHNIQUE: Single frontal radiographic view of the chest acquired. RADIATION DOSE: NA LIMITATIONS: None. FINDINGS: LUNGS AND PLEURA: Minimal bibasilar densities are identified which could represent develop ing infiltrates or pulmonary edema. Remaining lung fisher are clear. Again there is evidence for pu lmonary embolic disease. MEDIASTINUM AND HILAR STRUCTURES: No masses. Contour normal. HEART AND VASCULAR STRUCTURES: The configuration of the heart mediastinal structures is unchanged BONES: No acute findings. HARDWARE: Dual lumen central line is unchanged in position OTHER: No other significant finding. IMPRESSION: Minimal bibasilar densities as noted above which could represent developing infiltrates or pulmonary edema. Remaining lung fisher are clear. Other findings as noted above. TECHNICAL DOCUMENTATION: JOB ID: [id number] [email or web address] All Rights Reserved Reading location - IP/workstation name: [email or web address]
[2018-03-15] MEDS ORDERED: BUMETANIDE INJ/PF 1 MG/4 ML SDV IV ONE (18:15)
[2018-03-15] MEDS ORDERED: BUMETANIDE INJ/PF 1 MG/4 ML SDV ONE (18:35)
[2018-03-15] MEDS: LEVALBUTEROL HCL NEB 1.25 MG/3 ML AMPUL NEB PRN (18:43)
[2018-03-15] MEDS ORDERED: NICOTINE 21 MG/24 HR PATCH.TD24 TD PRN (18:59)
--- NOTE | 2018-03-15 18:59 | PDOC H&P ---
History of Present Illness Admission Date/PCP: 03/15/18 13:48 Primary CARE provider: CAIO Childress Outpatient chief of hospital medicine: Dr. Lowe Patient complains of: "I cannot breathe" History of Present Illness: KRISTY CANTU is a 62 year old male with a past medical history of end-stage renal disease on hemodialysis and human immunodeficiency virus. The patient presented to the emergency department via EMS with a chief complaint of not being able to breathe. The patient is well-known to the hospitalist service and was last seen in the emergency department 24 hours prior to this presentation. Since July of this year the patient has been seen in the emergency department on 9 separate visits and has been admitted an additional 5 visits. According EMS was found the patient hypoxic with SPO2 of 79. Patient had a heart rate 150 with a systolic blood pressure greater than 250. Upon our evaluation in ER the patient was transitioned over to BiPAP. Patient was diaphoretic at the time was tachycardic with a presenting systolic blood pressure of 180. Patient received albuterol and Solu-Medrol by EMS in transport. Patient was able to speak stating he had minimal improvement at that time. Patient stated he has been compliant with his dialysis Friday has not missed any. Patient also has a significant history for cocaine abuse however currently denies any cocaine ingestion in spite of persistently positive urine drug screens. Patient was monitored in the trauma bay for approximate 5 minutes with great improvement after BiPAP heart rate continued to gradually go down from 150s- 110. Blood pressure gradually came down to 150 systolically patient also had 1 inch of Nitropaste on his chest. Denied any chest pain fevers chills nausea vomiting. While in the emergency department chest x-ray showed some slight cephalization consistent with vascular congestion. The BiPAP patient's respiratory distress improved dramatically. The patient was started on a nitro drip and has been titrated off of this and transitioned over to Nitropaste. Laboratory studies also showed a slight hyperkalemia with a potassium of 5.4. EKG does not show any acute changes consistent with hyperkalemia. Patient urinalysis that was done day prior to arrival had a drug screen performed on that showing positive for cocaine. Most likely etiology of the patient's acute respiratory distress and acute compromise. Past Medical History Cardiac Medical History: Reports: Congestive Heart Failure - EF is 40%, with moderate diastolic dysfunction, DVT, Myocardial Infarction, Hyperlipidema, Hypertension, Peripheral Vascular Disease, Pulmonary Embolism Pulmonary Medical History: Reports: Bronchitis, Chronic Obstructive Pulmonary Disease (COPD), Pneumonia Endocrine Medical History: Reports: Diabetes Mellitus Type 1 - 1.5 Renal/ Medical History: Reports: End Stage Renal Disease - Stage GI Medical History: Reports: Gastroesophageal Reflux Disease Musculoskeltal Medical History: Reports: Arthritis Psychiatric Medical History: Reports: Substance Abuse Infectious Medical History: Reports: HIV Past Surgical History Past Surgical History: Reports: Orthopedic Surgery - bilateral amputation, R BKA , L AKA, Vascular Surgery - left arm clot removed, IVC filter, Other - Endoscopy ; Vascular surgery. Social History Information Source: Patient Occupation: Unemployed Lives with: Family Smoking Status: Current Some Day Smoker Cigarettes Packs Per Day: 0.5 Number of Years Smokin Frequency of Alcohol Use: Heavy - Denies currently drinking Hx Recreational Drug Use: Yes Drugs: Cocaine Hx Prescription Drug Abuse: No - Advance Directive Resuscitation Status: Full Code Surrogate healthcare decision maker:: Deon Cantu he can be reached at [phone] Family History Family History: CAD, CVA, DM, Hyperlipidemia, Hypertension, Malignancy Parental Family History Reviewed: Yes Children Family History Reviewed: Yes Sibling(s) Family History Reviewed.: Yes Medication/Allergy Home Medications: Amlodipine Besylate [Norvasc 10 mg Tablet] 10 mg PO DAILY 03/15/18 Apixaban [Eliquis 2.5 mg Tablet] 2.5 mg PO Q12 03/15/18 Calcitriol [Rocaltrol 0.5 mcg Capsule] 0.5 mcg PO DAILY 03/15/18 Carvedilol [Coreg 12.5 mg Tablet] 12.5 mg PO Q12 03/15/18 Clonidine [Catapres-Tts 3 (0.3 mg/24 Hr) Transderm Patch] 0.3 mg TOP GUTIÉRREZ@1000 Dolutegravir Sodium [Tivicay] 50 mg PO DAILY 03/15/18 Furosemide [Lasix 20 mg Tablet] 20 mg PO QAM 03/15/18 Isosorbide Mononitrate [Imdur 60 mg Tablet.er] 60 mg PO DAILY 03/15/18 Lamivudine [Epivir Hbv] 5 mg PO DAILY 03/15/18 Allergies/Adverse Reactions: No Known Allergies Allergy (Verified 03/15/18 08:44) Review of Systems Constitutional: PRESENT: weight gain. ABSENT: chills, fever(s), headache(s), weight loss Eyes: ABSENT: visual disturbances Ears: ABSENT: hearing changes Cardiovascular: PRESENT: edema, orthropnea, palpitations. ABSENT: chest pain Respiratory: PRESENT: dyspnea. ABSENT: cough, hemoptysis, sputum Gastrointestinal: ABSENT: abdominal pain, constipation, diarrhea, hematemesis, hematochezia, nausea, vomiting Genitourinary: ABSENT: dysuria, hematuria Musculoskeletal: ABSENT: joint swelling Integumentary: ABSENT: rash, wounds Neurological: ABSENT: abnormal gait, abnormal speech, confusion, dizziness, focal weakness, syncope Psychiatric: ABSENT: anxiety, depression, homidical ideation, suicidal ideation Endocrine: ABSENT: cold intolerance, heat intolerance, polydipsia, polyuria Hematologic/Lymphatic: ABSENT: easy bleeding, easy bruising Physical Exam Vital Signs: Temp Pulse Resp BP Pulse Ox 98.1 F 18 157/94 H 98 03/15/18 15:21 03/15/18 15:51 03/15/18 15:41 03/15/18 15:51 General appearance: PRESENT: cooperative, mild distress, well-nourished Head exam: PRESENT: atraumatic, normocephalic Eye exam: PRESENT: conjunctiva pink, EOMI, PERRLA, other - [place] sclera. ABSENT : scleral icterus Ear exam: PRESENT: normal external ear exam Mouth exam: PRESENT: moist, tongue midline Neck exam: PRESENT: JVD - To the right clavicle. ABSENT: lymphadenopathy, thyromegaly, tracheal deviation Respiratory exam: PRESENT: crackles - Bilateral basal crackles, decreased breath sounds, symmetrical, unlabored. ABSENT: rales, rhonchi, tachypnea, wheezes Cardiovascular exam: PRESENT: RRR. ABSENT: rubs Pulses: PRESENT: other - Bilateral amputee Vascular exam: PRESENT: normal capillary refill GI/Abdominal exam: PRESENT: firm, normal bowel sounds. ABSENT: distended, guarding, mass, organolmegaly, rebound, tenderness Rectal exam: PRESENT: deferred Extremities exam: ABSENT: clubbing Musculoskeletal exam: ABSENT: ambulatory Neurological exam: PRESENT: alert, awake, oriented to person, oriented to place , oriented to time, oriented to situation, CN II-XII grossly intact. ABSENT: motor sensory deficit Psychiatric exam: PRESENT: unusual affect. ABSENT: homicidal ideation, suicidal ideation Skin exam: PRESENT: dry, intact, warm. ABSENT: cyanosis, rash Results Laboratory Results: Labs- Last Values WBC 9.0 10^3/uL (4.0-10.5) 03/15/18 08:20 RBC 4.43 10^6/uL (4.35-5.55) 03/15/18 08:20 Hgb 13.7 g/dL (13.5-17.0) 03/15/18 08:20 Hct 40.9 % (37.9-51.0) 03/15/18 08:20 MCV 92 fl (80-97) 03/15/18 08:20 MCH 30.9 pg (27.0-33.4) 03/15/18 08:20 MCHC 33.4 g/dL (32.0-36.0) 03/15/18 08:20 RDW 14.8 % (11.5-14.0) H 03/15/18 08:20 Plt Count 149 10^3/uL (150-450) L 03/15/18 08:20 Seg Neutrophils % 36.3 % (42-78) L 03/15/18 08:20 Lymphocytes % 53.4 % (13-45) H 03/15/18 08:20 Monocytes % 7.5 % (3-13) 03/15/18 08:20 Eosinophils % 2.4 % (0-6) 03/15/18 08:20 Basophils % 0.4 % (0-2) 03/15/18 08:20 Absolute Neutrophils 3.3 10^3/uL (1.7-8.2) 03/15/18 08:20 Absolute Lymphocytes 4.8 10^3/uL (0.5-4.7) H 03/15/18 08:20 Absolute Monocytes 0.7 10^3/uL (0.1-1.4) 03/15/18 08:20 Absolute Eosinophils 0.2 10^3/uL (0.0-0.6) 03/15/18 08:20 Absolute Basophils 0.0 10^3/uL (0.0-0.2) 03/15/18 08:20 PT 14.4 SEC (11.4-15.4) 03/15/18 08:20 INR 1.06 03/15/18 08:20 Carbonic Acid 1.09 mmol/L (1.05-1.35) 03/15/18 11:33 HCO3/H2CO3 Ratio 18:1 03/15/18 11:33 ABG pH 7.35 (7.35-7.45) 03/15/18 11:33 ABG pCO2 36.3 mmHg (35-45) 03/15/18 11:33 ABG pO2 110.3 mmHg (80-100) H 03/15/18 11:33 ABG HCO3 19.7 mmol/L (20-26) L 03/15/18 11:33 ABG Total CO2 20.8 mmol/L (23-27) L 03/15/18 11:33 ABG O2 Saturation 97.9 % (94-98) 03/15/18 11:33 ABG Base Excess -5.2 mmol/L 03/15/18 11:33 VBG pH 7.15 (7.30-7.42) L* 03/15/18 08:20 VBG pCO2 53.0 mmHg (35-63) 03/15/18 08:20 VBG HCO3 18.2 mmol/L (20-32) L 03/15/18 08:20 VBG Base Excess -10.9 mmol/L 03/15/18 08:20 FiO2 30% 03/15/18 11:33 Sodium 142.6 mmol/L (137-145) 03/15/18 12:55 Potassium 5.5 mmol/L (3.6-5.0) H 03/15/18 12:55 Chloride 111 mmol/L (98-107) H 03/15/18 12:55 Carbon Dioxide 16 mmol/L (22-30) L 03/15/18 12:55 Anion Gap 16 (5-19) 03/15/18 12:55 BUN 48 mg/dL (7-20) H 03/15/18 12:55 Creatinine 6.76 mg/dL (0.52-1.25) H 03/15/18 12:55 Est GFR ( Amer) 10 (>60) L 03/15/18 12:55 Est GFR (Non-Af Amer) 8 (>60) L 03/15/18 12:55 Glucose 152 mg/dL (75-110) H 03/15/18 12:55 Lactic Acid 2.8 mmol/L (0.7-2.1) H 03/15/18 12:55 Calcium 8.5 mg/dL (8.4-10.2) 03/15/18 12:55 Total Bilirubin 0.5 mg/dL (0.2-1.3) 03/15/18 08:20 Direct Bilirubin 0.5 mg/dL (0.0-0.4) H 03/15/18 08:20 Neonat Total Bilirubin Not Reportable 03/15/18 08:20 Neonat Direct Bilirubin Not Reportable 03/15/18 08:20 Neonat Indirect Bili Not Reportable 03/15/18 08:20 AST 106 U/L (17-59) H 03/15/18 08:20 ALT 96 U/L (21-72) H 03/15/18 08:20 Alkaline Phosphatase 70 U/L (38-126) 03/15/18 08:20 Troponin I 0.053 ng/mL 03/15/18 08:20 NT-Pro-B Natriuret Pep 58427 pg/mL (5-900) H 03/15/18 08:20 Total Protein 7.3 g/dL (6.3-8.2) 03/15/18 08:20 Albumin 3.7 g/dL (3.5-5.0) 03/15/18 08:20 Urine Color YELLOW 03/15/18 12:47 Urine Appearance CLEAR 03/15/18 12:47 Urine pH 8.0 (5.0-9.0) 03/15/18 12:47 Ur Specific [place] 1.011 03/15/18 12:47 Urine Protein 100 mg/dL (NEGATIVE) H 03/15/18 12:47 Urine Glucose (UA) 50 mg/dL (NEGATIVE) H 03/15/18 12:47 Urine Ketones NEGATIVE mg/dL (NEGATIVE) 03/15/18 12:47 Urine Blood NEGATIVE (NEGATIVE) 03/15/18 12:47 Urine Nitrite NEGATIVE (NEGATIVE) 03/15/18 12:47 Urine Bilirubin NEGATIVE (NEGATIVE) 03/15/18 12:47 Urine Urobilinogen NEGATIVE mg/dL (<2.0) 03/15/18 12:47 Ur Leukocyte Esterase TRACE (NEGATIVE) H 03/15/18 12:47 Urine WBC (Auto) 11 /HPF 03/15/18 12:47 Urine RBC (Auto) 1 /HPF 03/15/18 12:47 Urine Mucus (Auto) RARE /LPF 03/15/18 12:47 Urine Ascorbic Acid NEGATIVE (NEGATIVE) 03/15/18 12:47 Urine Opiates Screen NEGATIVE 03/14/18 13:10 Urine Methadone Screen NEGATIVE 03/14/18 13:10 Ur Barbiturates Screen NEGATIVE 03/14/18 13:10 Ur Phencyclidine Scrn NEGATIVE 03/14/18 13:10 Ur Amphetamines Screen NEGATIVE 03/14/18 13:10 U Benzodiazepines Scrn NEGATIVE 03/14/18 13:10 Urine Cocaine Screen UNCONFIRMED POSITIVE 03/14/18 13:10 U Marijuana (THC) Screen NEGATIVE 03/14/18 13:10 Impressions: Chest X-Ray 03/15/18 08:28 IMPRESSION: COPD. NO ACUTE RADIOGRAPHIC FINDING IN THE CHEST. Assessment & Plan - Diagnosis (1) Pulmonary edema Qualifiers: Chronicity: acute Qualified Code(s): J81.0 - Acute pulmonary edema Is this a current diagnosis for this admission?: Yes Plan: In reading the patient's previous admissions it appears that this is been a cycle of the patient using crack cocaine and subsequently increasing cardiac output resulting in failure and pulmonary edema. Patient is stable at this point in time from the airway and does not appear to need urgent dialysis. Will consult nephrology, repeat chemistries in the a.m. the patient still makes a decent amount of urine therefore we will give him a dose of Bumex and monitor for output. (2) Acute on chronic combined systolic and diastolic heart failure Is this a current diagnosis for this admission?: Yes Plan: We will hold the patient's beta blockers at this point given he is current cocaine use. The patient is also hyperkalemic will defer DANIE inhibitor. In the interim we will continue Nitropaste. (3) Acute on chronic respiratory failure with hypoxemia Is this a current diagnosis for this admission?: Yes Plan: Secondary to the above. We will use the BiPAP as needed. At the time of admission the patient is tolerating nasal cannula without issue. The patient does not have any conversational dyspnea and oxygen saturations have been in the high 90s on 2 L. Patient has been treated and released from the emergency department as well as had admissions associated with the exact same presentation. The patient does get acutely short of breath and pulmonary edema happens after this. It appears this is related to the patient's cocaine use. Both myself and various providers as well as ER providers is counseled the patient regarding this however he will adamantly refuses use although he has persistently positive cocaine screens. (4) Hypertensive emergency Is this a current diagnosis for this admission?: Yes Plan: Of course this is contributory to the patient's pulmonary edema. Patient has a long history of this. Patient has been titrated off the nitro drip will continue nitro paste as well as Norvasc and add as needed Apresoline. The patient's beta blockers are on hold at this point. (5) Cocaine use Is this a current diagnosis for this admission?: Yes Plan: Has been counseled (6) Chronic kidney disease stage Is this a current diagnosis for this admission?: Yes Plan: Consult nephrology for dialysis in the a.m. (7) HIV (human immunodeficiency virus infection) Is this a current diagnosis for this admission?: Yes Plan: Resume home antiviral medications (8) Metabolic acidosis Is this a current diagnosis for this admission?: Yes Plan: Chronic and secondary to ESRD (9) Hyperkalemia Is this a current diagnosis for this admission?: Yes Plan: Appears to have a persistent issue with this. No acute EKG changes. Will repeat chemistries in the a.m. and follow. (10) GERD (gastroesophageal reflux disease) Qualifiers: Esophagitis presence: esophagitis presence not specified Qualified Code(s) : K21.9 - Gastro-esophageal reflux disease without esophagitis Is this a current diagnosis for this admission?: Yes Plan: Will continue home medications. (11) Hyperlipidemia Qualifiers: Hyperlipidemia type: unspecified Qualified Code(s): E78.5 - Hyperlipidemia , unspecified Is this a current diagnosis for this admission?: Yes (12) COPD (chronic obstructive pulmonary disease) Qualifiers: COPD type: unspecified COPD Qualified Code(s): J44.9 - Chronic obstructive pulmonary disease, unspecified Is this a current diagnosis for this admission?: Yes Plan: Defer steroids does not sound wheezy at this point. (13) History of DVT (deep vein thrombosis) Is this a current diagnosis for this admission?: Yes Plan: Continue renal dose apixaban (14) Anemia of chronic disease Is this a current diagnosis for this admission?: Yes Plan: Hemoglobin appears to be at baseline. (15) Secondary hyperparathyroidism (of renal origin) Is this a current diagnosis for this admission?: Yes Plan: As per nephrology. (16) Peripheral vascular disease Is this a current diagnosis for this admission?: Yes (17) Tobacco abuse Is this a current diagnosis for this admission?: Yes Plan: Spent 3 minutes discussing smoking cessation education. The patient declines any pharmacological intervention at this time however will add a PRN nicotine patch. (18) Full code status Is this a current diagnosis for this admission?: Yes - Time Time Spent: Greater than 70 Minutes Medications reviewed and adjusted accordingly: Yes Anticipated discharge: Home Within: within 48 hours Disposition: The patient is a full code. Pending patient's symptomatology and diagnostic findings will reevaluate in the a.m. Will admit the patient to inpatient IMCU as the patient suspected length of sedation surpass 2 midnights. - Inpatient Certification Based on my medical assessment, after consideration of the patient's comorbidities, presenting symptoms, or acuity I expect that the services needed warrant INPATIENT care.: Yes I certify that my determination is in accordance with my understanding of Medicare's requirements for reasonable and necessary INPATIENT services [42 CFR 412.3e].: Yes Medical Necessity: Failure to Improve With Outpatient Therapy, Need For Continuous Telemetry Monitoring, Risk of Complication if Not Cared For in Hospital Post Hospital Care: D/C Private Investigator Documentation
[2018-03-15] MEDS ORDERED: APIXABAN 2.5 MG TABLET PO SCH (22:00)
[2018-03-16] MEDS ORDERED: TRAMADOL HCL 50 MG TABLET PO ONE (02:00)
[2018-03-16] MEDS: HEPARIN SOD (PORCINE) 5,000 UNIT/ML 1 ML SYRINGE SUBCUT SCH ×2 (05:51→14:00)
[2018-03-16 07:13] LABS: HEMATOCRIT 31.8 % (37.9-51.0); MEAN CORPUSCULAR HEMOGLOBIN 30.5 pg (27.0-33.4); MEAN CORPUSCULAR HGB CONC 33.6 g/dL (32.0-36.0); MEAN CORPUSCULAR VOLUME 91 fl (80-97); PLATELET COUNT 124 10^3/uL (150-450); RED CELL DISTRIBUTION WIDTH 14.5 % (11.5-14.0); WHITE BLOOD COUNT 7.3 10^3/uL (4.0-10.5)
[2018-03-16 07:15] LABS: HEMOGLOBIN 10.7 g/dL (13.5-17.0)
[2018-03-16 07:39] LABS: ANION GAP 13 (5-19); BLOOD UREA NITROGEN 62 mg/dL (7-20); CALCIUM 8.4 mg/dL (8.4-10.2); CARBON DIOXIDE 18 mmol/L (22-30); CHLORIDE 108 mmol/L (98-107); GLUCOSE 84 mg/dL (75-110); PHOSPHORUS 4.3 mg/dL (2.5-4.5); POTASSIUM 5.2 mmol/L (3.6-5.0); SODIUM 138.8 mmol/L (137-145)
[2018-03-16] MEDS: LEVALBUTEROL HCL NEB 1.25 MG/3 ML AMPUL NEB PRN (09:48)
[2018-03-16] MEDS ORDERED: (PENDING PHARMACY ID) (Dolutegravir Sodium [Tivicay] 50 MG) PO SCH (10:00)
[2018-03-16] MEDS ORDERED: CALCITRIOL 0.25 MCG CAPSULE PO SCH (10:00)
[2018-03-16] MEDS ORDERED: LAMIVUDINE PO SCH (10:00)
[2018-03-16] MEDS: ISOSORBIDE MONONITRATE 60 MG TAB.ER.24H PO SCH ×2 (11:16→17:28)
[2018-03-16] MEDS: AMLODIPINE BESYLATE 10 MG TABLET PO SCH ×2 (11:16→17:28)
--- NOTE | 2018-03-16 13:43 | PDOC CONSULTATION ---
Consultation Consult Date: 03/16/18 Consult reason:: Urgent dialysis. History of Present Illness Admission Date/PCP: 03/15/18 13:48 History of Present Illness: KRISTY CANTU is a 62 year old male with a history of ESRD in the background of HIV, hypertension and cocaine abuse was admitted with history of progressive shortness of breath. Evaluations in the ER revealed that the patient was in congestive heart failure with hypertensive emergency. He was treated conservatively with IV nitro/Nitropaste/BiPAP and responded conservatively. He is now currently feeling better. Currently being seen while he is undergoing dialysis. Vital signs better. He was found to be positive for cocaine even the patient denies that he has been taking it!!!.He denies any history of chest pains, fever or chills. Patient has had multiple admissions with hypertensive emergency and congestive heart failure the background of repeated and persistent cocaine abuse. Labs and vital signs were reviewed. Orders were reviewed with the treating dialysis nurse. Past Medical History Cardiac Medical History: Reports: CHF-Diastolic, DVT, Hyperlipidemia, Hypertension-primary, Myocardial Infarction, Peripheral Vascular Disease, Pulmonary Embolism Pulmonary Medical History: Reports: Bronchitis, Chronic Obstructive Pulmonary Disease (COPD), Pneumonia Denies: Asthma Neurological Medical History: Denies: Migraine, Seizures Endocrine Medical History: Reports: Diabetes Mellitus Type 2 Renal/ Medical History: Reports: End Stage Renal Disease - Stage , Hyperphosphatemia, Metabolic Acidosis, Secondary Hyperparathyroidism GI Medical History: Reports: Gastroesophageal Reflux Disease Musculoskeltal Medical History: Reports: Arthritis Skin Medical History: Denies: Eczema Psychiatric Medical History: Reports: Substance Abuse Denies: Depression Traumatic Medical History: Denies: Traumatic Brain Injury Infectious Medical History: Reports: HIV Hematology Medical History: Reports Anemia of Chronic Kidney Disease Past Surgical History Past Surgical History: Reports: Orthopedic Surgery - bilateral amputation, R BKA , L AKA, Vascular Surgery - left arm clot removed, IVC filter, Other - Endoscopy ; Vascular surgery. Social History Lives with: Family Smoking Status: Current Some Day Smoker Cigarettes Packs Per Day: 0.5 Number of Years Smokin Frequency of Alcohol Use: Heavy - Denies currently drinking Hx Recreational Drug Use: Yes Drugs: Cocaine Hx Prescription Drug Abuse: No - Advance Directive Resuscitation Status: Full Code Family History Parental Family History Reviewed: Yes - Negative for ESRD Children Family History Reviewed: No Sibling(s) Family History Reviewed.: No Medication/Allergy Home Medications: Amlodipine Besylate [Norvasc 10 mg Tablet] 10 mg PO DAILY 03/15/18 Apixaban [Eliquis 2.5 mg Tablet] 2.5 mg PO Q12 03/15/18 Calcitriol [Rocaltrol 0.5 mcg Capsule] 0.5 mcg PO DAILY 03/15/18 Carvedilol [Coreg 12.5 mg Tablet] 12.5 mg PO Q12 03/15/18 Clonidine [Catapres-Tts 3 (0.3 mg/24 Hr) Transderm Patch] 0.3 mg TOP GUTIÉRREZ@1000 Dolutegravir Sodium [Tivicay] 50 mg PO DAILY 03/15/18 Furosemide [Lasix 20 mg Tablet] 20 mg PO QAM 03/15/18 Isosorbide Mononitrate [Imdur 60 mg Tablet.er] 60 mg PO DAILY 03/15/18 Lamivudine [Epivir Hbv] 5 mg PO DAILY 03/15/18 Allergies/Adverse Reactions: No Known Allergies Allergy (Verified 03/15/18 08:44) Review of Systems Constitutional: PRESENT: headache(s). ABSENT: fatigue, fever(s), night sweats, weakness Nose, Mouth, and Throat: ABSENT: mouth pain, sore throat Cardiovascular: PRESENT: dyspnea on exertion. ABSENT: chest pain, edema, orthropnea, palpitations Respiratory: PRESENT: dyspnea. ABSENT: cough, hemoptysis Gastrointestinal: ABSENT: abdominal pain, bloating, coffee ground emesis, hematemesis Genitourinary: ABSENT: dysuria, hematuria Neurological: ABSENT: confusion, convulsions, focal weakness Hematologic/Lymphatic: ABSENT: easy bruising, lymphadenopathy Physical Exam Vital Signs: Temp Pulse Resp BP Pulse Ox 98.1 F 95 17 151/84 H 100 03/16/18 11:54 03/16/18 11:54 03/16/18 11:54 03/16/18 11:54 03/16/18 11:54 Intake & Output 03/15/18 03/16/18 03/17/18 06:59 06:59 06:59 Intake Total 605 355 Output Total 450 200 Balance 155 155 Weight 74 kg General appearance: PRESENT: no acute distress Eye exam: PRESENT: conjunctiva pink, EOMI, PERRLA Ear exam: PRESENT: normal external ear exam Mouth exam: PRESENT: moist, neck supple Neck exam: ABSENT: lymphadenopathy, meningismus, tenderness, thyromegaly, tracheal deviation Respiratory exam: PRESENT: clear to auscultation ramila, crackles. ABSENT: rhonchi Cardiovascular exam: PRESENT: +S1, +S2, systolic murmur GI/Abdominal exam: PRESENT: normal bowel sounds, soft. ABSENT: organomegaly, tenderness Extremities exam: PRESENT: other - Bilateral amputee. Neurological exam: PRESENT: alert, awake, oriented to person, oriented to place , oriented to time Skin exam: ABSENT: mottled, rash Results Laboratory Results: 03/16/18 06:24 03/16/18 06:24 03/16/18 03/16/18 06:24 06:24 WBC 7.3 RBC 3.50 L Hgb 10.7 L D Hct 31.8 L MCV 91 MCH 30.5 MCHC 33.6 RDW 14.5 H Plt Count 124 L Sodium 138.8 Potassium 5.2 H Chloride 108 H Carbon Dioxide 18 L Anion Gap 13 BUN 62 H Creatinine 7.29 H Est GFR ( Amer) 9 L Est GFR (Non-Af Amer) 8 L Glucose 84 Calcium 8.4 Phosphorus 4.3 Magnesium 2.6 H Impressions: Chest X-Ray 03/15/18 08:28 IMPRESSION: COPD. NO ACUTE RADIOGRAPHIC FINDING IN THE CHEST. Assessment & Plan - Diagnosis (1) ESRD on hemodialysis Is this a current diagnosis for this admission?: Yes Plan: Patient admitted with hypertensive urgency and congestive heart failure. Initially has responded partially to conservative measures. Now undergoing dialysis without any issues vital signs are stable blood pressure under better control dialysis is being supervised to ensure safe and smooth procedure. We will plan to remove between 3 and 4 L as tolerated. Orders were reviewed with the treating dialysis nurse. (2) Acute on chronic combined systolic and diastolic heart failure Is this a current diagnosis for this admission?: Yes Plan: Patient has unfortunate persistent cocaine abuse which is obviously leading to his heart disease and hypertensive emergencies. Multiple admissions for similar presentation. Multiple advised to stop cocaine as failed on diffuse. Reviewed echocardiogram done earlier this year. Patient responding to conservative management followed by urgent hemodialysis. (3) Anemia of chronic disease Is this a current diagnosis for this admission?: Yes Plan: Hemoglobin at 10.7 with no indications for erythropoietin currently. (4) COPD (chronic obstructive pulmonary disease) Qualifiers: COPD type: unspecified COPD Qualified Code(s): J44.9 - Chronic obstructive pulmonary disease, unspecified Is this a current diagnosis for this admission?: Yes Plan: As per hospitalist. (5) Cocaine use Is this a current diagnosis for this admission?: Yes Plan: Positive again. Multiple admissions with cocaine as a precipitant for similar admissions. Discussed the implications but always falling on deaf years unfortunately. (6) HIV (human immunodeficiency virus infection) Is this a current diagnosis for this admission?: Yes Plan: As per hospitalist. (7) History of DVT (deep vein thrombosis) Is this a current diagnosis for this admission?: Yes Plan: Recommend DVT prophylaxis appropriately. (8) Hypertensive emergency Is this a current diagnosis for this admission?: Yes Plan: Has responded partially to conservative measures and currently undergoing dialysis which should also add to better control. Advised compliance with his blood pressure medications and to stop using cocaine. (9) Secondary hyperparathyroidism (of renal origin) Is this a current diagnosis for this admission?: Yes Plan: on his calcitriol.
--- NOTE | 2018-03-16 13:56 | PDOC DISCHARGE SUMMARY ---
General - Admit/Disc Date/PCP Admission Date/Primary Care Provider: 03/15/18 13:48 Discharge Date: 03/16/18 - Discharge Diagnosis (1) Anemia of chronic disease Is this a current diagnosis for this admission?: Yes (2) ESRD on hemodialysis Is this a current diagnosis for this admission?: Yes (3) Hyperkalemia Is this a current diagnosis for this admission?: Yes (4) COPD (chronic obstructive pulmonary disease) Is this a current diagnosis for this admission?: Yes (5) Cocaine use Is this a current diagnosis for this admission?: Yes (6) HIV (human immunodeficiency virus infection) Is this a current diagnosis for this admission?: Yes (7) History of DVT (deep vein thrombosis) Is this a current diagnosis for this admission?: Yes (8) Hypertensive emergency Is this a current diagnosis for this admission?: Yes (9) Peripheral vascular disease Is this a current diagnosis for this admission?: Yes (10) Secondary hyperparathyroidism (of renal origin) Is this a current diagnosis for this admission?: Yes (11) Tobacco abuse Is this a current diagnosis for this admission?: Yes - Additional Information Resuscitation Status: Full Code Discharge Diet: As Tolerated Discharge Activity: Activity As Tolerated, Weigh Daily Home Medications: Amlodipine Besylate [Norvasc 10 mg Tablet] 10 mg PO DAILY 03/15/18 Apixaban [Eliquis 2.5 mg Tablet] 2.5 mg PO Q12 03/15/18 Calcitriol [Rocaltrol 0.5 mcg Capsule] 0.5 mcg PO DAILY 03/15/18 Carvedilol [Coreg 12.5 mg Tablet] 12.5 mg PO Q12 03/15/18 Clonidine [Catapres-Tts 3 (0.3 mg/24 Hr) Transderm Patch] 0.3 mg TOP GUTIÉRREZ@1000 Dolutegravir Sodium [Tivicay] 50 mg PO DAILY 03/15/18 Furosemide [Lasix 20 mg Tablet] 20 mg PO QAM 03/15/18 Isosorbide Mononitrate [Imdur 60 mg Tablet.er] 60 mg PO DAILY 03/15/18 Lamivudine [Epivir Hbv] 5 mg PO DAILY 03/15/18 Levalbuterol HCl [Xopenex Neb 1.25 mg/3 ml Ampul] 1.25 mg NEB [id number] PRN vial.neb 03/16/18 Nicotine [Nicoderm 21 mg/24 Hr Transderm Patch] 1 each TD DAILYP PRN patch.td24 03/16/18 History of Present Illness History of Present Illness: KRISTY CANTU is a 62 year old male with a past medical history of end-stage renal disease on hemodialysis and human immunodeficiency virus. The patient presented to the emergency department via EMS with a chief complaint of not being able to breathe. The patient is well-known to the hospitalist service and was last seen in the emergency department 24 hours prior to this presentation. Since July of this year the patient has been seen in the emergency department on 9 separate visits and has been admitted an additional 5 visits. According EMS was found the patient hypoxic with SPO2 of 79. Patient had a heart rate 150 with a systolic blood pressure greater than 250. Upon our evaluation in ER the patient was transitioned over to BiPAP. Patient was diaphoretic at the time was tachycardic with a presenting systolic blood pressure of 180. Patient received albuterol and Solu-Medrol by EMS in transport. Patient was able to speak stating he had minimal improvement at that time. Patient stated he has been compliant with his dialysis Friday has not missed any. Patient also has a significant history for cocaine abuse however currently denies any cocaine ingestion in spite of persistently positive urine drug screens. Patient was monitored in the trauma bay for approximate 5 minutes with great improvement after BiPAP heart rate continued to gradually go down from 150s- 110. Blood pressure gradually came down to 150 systolically patient also had 1 inch of Nitropaste on his chest. Denied any chest pain fevers chills nausea vomiting. While in the emergency department chest x-ray showed some slight cephalization consistent with vascular congestion. The BiPAP patient's respiratory distress improved dramatically. The patient was started on a nitro drip and has been titrated off of this and transitioned over to Nitropaste. Laboratory studies also showed a slight hyperkalemia with a potassium of 5.4. EKG does not show any acute changes consistent with hyperkalemia. Patient urinalysis that was done day prior to arrival had a drug screen performed on that showing positive for cocaine. Most likely etiology of the patient's acute respiratory distress and acute compromise. Hospital Course Hospital Course: Patient received BiPAP treatment and nitro drip. He also received dialysis. He significantly improved and currently off oxygen altogether. He was seen on dialysis. His pressure improved and respiratory status improved. He has stable for discharge. He was counseled extensively regarding stopping cocaine. He mentioned that he was hanging out with friends that he might have inhaled secondhand but denies any use. Physical Exam Vital Signs: Temp Pulse Resp BP Pulse Ox 98.1 F 95 17 151/84 H 100 03/16/18 11:54 03/16/18 11:54 03/16/18 11:54 03/16/18 11:54 03/16/18 11:54 Intake & Output 03/15/18 03/16/18 03/17/18 06:59 06:59 06:59 Intake Total 605 355 Output Total 450 200 Balance 155 155 Weight 163 lb 2.273 oz General appearance: PRESENT: no acute distress, cooperative Head exam: PRESENT: atraumatic Eye exam: ABSENT: conjunctival injection Mouth exam: PRESENT: moist Throat exam: ABSENT: post pharyngeal erythema Neck exam: ABSENT: meningismus, tenderness, thyromegaly Respiratory exam: PRESENT: clear to auscultation ramila. ABSENT: accessory muscle use Cardiovascular exam: PRESENT: RRR Pulses: PRESENT: normal radial pulses GI/Abdominal exam: PRESENT: normal bowel sounds. ABSENT: ascites Extremities exam: PRESENT: other - Bilateral amputee Psychiatric exam: ABSENT: agitated, anxious, depressed Results Laboratory Results: 03/16/18 06:24 03/16/18 06:24 03/16/18 03/16/18 06:24 06:24 WBC 7.3 RBC 3.50 L Hgb 10.7 L D Hct 31.8 L MCV 91 MCH 30.5 MCHC 33.6 RDW 14.5 H Plt Count 124 L Sodium 138.8 Potassium 5.2 H Chloride 108 H Carbon Dioxide 18 L Anion Gap 13 BUN 62 H Creatinine 7.29 H Est GFR ( Amer) 9 L Est GFR (Non-Af Amer) 8 L Glucose 84 Calcium 8.4 Phosphorus 4.3 Magnesium 2.6 H Impressions: Chest X-Ray 03/15/18 08:28 IMPRESSION: COPD. NO ACUTE RADIOGRAPHIC FINDING IN THE CHEST. Qualifiers - * PATIENT BEING DISCHARGED WITH ANY OF THE FOLLOWING DIAGNOSIS: No
[2018-03-16] MEDS ORDERED: HEPARIN SOD (PORCINE) 1,000 UNIT/ML 10 ML VIAL IV SCH (14:30)
[2018-03-16] MEDS ORDERED: HEPARIN SOD (PORCINE) 1,000 UNIT/ML 10 ML VIAL IV ONE ×4 (14:30→16:15)
[2018-03-16 18:55] VITALS: BP 137/72
[2018-03-22] MEDS ORDERED: CLONIDINE 0.3 MG/24 HR PATCH.TDWK TOP SCH (10:00)
== END 2018-03-16 19:26 | disposition home or self-care (01) | DRG 291 ==
LOC: ER 08:14 → EH 13:48 → 3S 16:17
PROVIDERS: ADMIT Internal Medicine; ATTEND Internal Medicine
PROC: 5A09457 Assistance with Respiratory Ventilation, 24-96 Consecutive Hours, Continuous Positive Airway Pressure (ICD-10-PCS; 2018-03-15)
PROC: 5A1D70Z Performance of Urinary Filtration, Intermittent, Less than 6 Hours Per Day (ICD-10-PCS; principal; 2018-03-16)
DX: I13.0 Hypertensive heart and chronic kidney disease with heart failure and stage 1 through stage 4 chronic kidney disease, or unspecified chronic kidney disease (principal); I50.43 Acute on chronic combined systolic (congestive) and diastolic (congestive) heart failure; J96.01 Acute respiratory failure with hypoxia; N18.6 End stage renal disease; J96.21 Acute and chronic respiratory failure with hypoxia; I16.1 Hypertensive emergency; N18.4 Chronic kidney disease, stage 4 (severe); E87.2 Acidosis; N25.81 Secondary hyperparathyroidism of renal origin; Z21 Asymptomatic human immunodeficiency virus [HIV] infection status; E11.22 Type 2 diabetes mellitus with diabetic chronic kidney disease; E87.5 Hyperkalemia; E11.51 Type 2 diabetes mellitus with diabetic peripheral angiopathy without gangrene; D63.1 Anemia in chronic kidney disease; E21.3 Hyperparathyroidism, unspecified; F14.10 Cocaine abuse, uncomplicated; Z86.718 Personal history of other venous thrombosis and embolism; E78.5 Hyperlipidemia, unspecified; J44.9 Chronic obstructive pulmonary disease, unspecified; K21.9 Gastro-esophageal reflux disease without esophagitis; M19.90 Unspecified osteoarthritis, unspecified site; F17.210 Nicotine dependence, cigarettes, uncomplicated; Z99.2 Dependence on renal dialysis; I25.2 Old myocardial infarction; Z89.511 Acquired absence of right leg below knee; Z79.899 Other long term (current) drug therapy; Z83.3 Family history of diabetes mellitus; Z82.49 Family history of ischemic heart disease and other diseases of the circulatory system
CPT/HCPCS: 36415; 71045; 80048; 80053; 80307; 81001; 82803; 83605; 83735; 83880; 84100; 84484; 85025; 85027; 85610; 87040; 87086; 94640; 94660; 96365; 96366; 99291; J1644; J3490

== ENCOUNTER 2018-03-22 03:07 | Emergency (ER) | payer MEDICAID ==
--- NOTE | 2018-03-22 03:32 | ER Document Report ---
Addendum entered and electronically signed by KAYLAH BHAGAT NP 03/28/18 15:52 : Discharge - Discharge Clinical Impression: Right-sided chest pain, Cough Condition: Stable Disposition: [facility] Additional Instructions: Your workup shows potassium that is slowly elevating. Please follow-up with your dialysis first thing in the morning tomorrow. Your liver enzymes are slightly trending upwards, these need to be monitored with repeat testing. Your chest x-ray is normal. Remaining workup was nonspecific. Return to the emergency department if you worsen including difficulty breathing , passing out, fever, or any other concerning or worsening symptoms. Referrals: YOSHI JEAN-BAPTISTE NP [Primary Care Provider] - Follow up as needed Addendum entered and electronically signed by CATRINA ESPOSITO PA 03/22/18 19:10: Discharge - Discharge Clinical Impression: Right-sided chest pain, Cough Condition: Stable Disposition: HOME, SELF-CARE Additional Instructions: Your workup shows potassium that is slowly elevating. Please follow-up with your dialysis first thing in the morning tomorrow. Your liver enzymes are slightly trending upwards, these need to be monitored with repeat testing. Your chest x-ray is normal. Remaining workup was nonspecific. Return to the emergency department if you worsen including difficulty breathing , passing out, fever, or any other concerning or worsening symptoms. Referrals: YOSHI JEAN-BAPTISTE NP [Primary Care Provider] - Follow up as needed Original Note: ED General - General TRAVEL OUTSIDE OF THE [place] IN LAST 30 DAYS: No <CATRINA ESPOSITO - Last Filed: 03/22/18 05:43> <KAYLAH BHAGAT - Last Filed: 03/22/18 11:50> - General Stated Complaint: BREATHING ISSUES Time Seen by Provider: 03/22/18 03:17 Notes: Patient is a 62-year-old male that comes to the emergency department by EMS for chief complaint of worsening cough and right-sided chest pain. He also complains of shooting pain going into his left leg. Patient denies fever, he was given 324 mg of aspirin and 3 sublingual nitro doses by EMS and he states he no longer has pain. Past medical history includes hypertension, end-stage renal disease (Friday dialysis, had dialysis Friday), COPD, tobacco abuse, HIV, CHF, cocaine abuse. He has an IVC filter. He has bilateral BKAs. He is not on home oxygen. He continues to smoke, his last cocaine use he reports was almost 1 week ago on Friday. Patient was discharged from the hospital on Friday. (CATRINA ESPOSITO) - Related Data Allergies/Adverse Reactions: No Known Allergies Allergy (Verified 03/22/18 03:56) Past Medical History - General Information source: Patient - Social History Smoking Status: Current Every Day Smoker Smoking Education Provided: Yes - <3 min Drug Abuse: Cocaine Lives with: Alone Family History: CAD, CVA, DM, Hyperlipidemia, Hypertension, Malignancy - Past Medical History Cardiac Medical History: Reports: Hx Congestive Heart Failure - EF is 40%, with moderate diastolic dysfunction, Hx DVT, Hx Heart Attack, Hx Hypercholesterolemia , Hx Hypertension, Hx Peripheral Vascular Disease, Hx Pulmonary Embolism Pulmonary Medical History: Reports: Hx Bronchitis, Hx COPD, Hx Pneumonia Denies: Hx Asthma Neurological Medical History: Denies: Hx Migraine, Hx Seizures Endocrine Medical History: Reports: Hx Diabetes Mellitus Type 2 - insulin dependent Renal/ Medical History: Reports: Hx End Stage Renal Disease - Stage , Hx Renal Insufficiency. Denies: Hx Peritoneal Dialysis - dialysis M/W/F GI Medical History: Reports: Hx Gastroesophageal Reflux Disease Musculoskeletal Medical History: Reports Hx Arthritis, 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, Reports Hx Musculoskeletal Trauma Skin Medical History: Denies Hx Eczema Psychiatric Medical History: Denies: Hx Depression Traumatic Medical History: Denies: Hx Traumatic Brain Injury Infectious Medical History: Reports: Hx HIV Past Surgical History: Reports: Hx Orthopedic Surgery - bilateral amputation, R BKA, L AKA, Hx Vascular Surgery - left arm clot removed, IVC filter, Other - Endoscopy; Vascular surgery. - Immunizations Immunizations up to date: Yes Hx Diphtheria, Pertussis, Tetanus Vaccination: Yes Hx Pneumococcal Vaccination: 07/21/10 <CATRINA ESPOSITO - Last Filed: 03/22/18 05:43> Review of Systems - Review of Systems Constitutional: No symptoms reported EENT: No symptoms reported Cardiovascular: See HPI Respiratory: See HPI Gastrointestinal: No symptoms reported Genitourinary: No symptoms reported Male Genitourinary: No symptoms reported Musculoskeletal: No symptoms reported Skin: No symptoms reported Hematologic/Lymphatic: No symptoms reported Neurological/Psychological: No symptoms reported <CATRINA ESPOSITO - Last Filed: 03/22/18 05:43> Physical Exam <CATRINA ESPOSITO - Last Filed: 03/22/18 05:43> <KAYLAH BHAGAT - Last Filed: 03/22/18 11:50> - Vital signs Vitals: Temp Resp Pulse Ox 98.3 F 23 H 94 03/22/18 03:14 03/22/18 03:14 03/22/18 03:14 - Notes Notes: GENERAL: Alert, interacts well. No acute distress. HEAD: Normocephalic, atraumatic. EYES: Pupils equal, round, and reactive to light. Extraocular movements intact. ENT: Oral mucosa moist, tongue midline. Unremarkable oral pharyngeal exam. NECK: Full range of motion. Supple. Trachea midline. LUNGS: Decreased breath sounds bilaterally. Soft rales in the right lower lung. No overt wheezes, no tachypnea, no respiratory distress. HEART: Borderline tachycardia, regular rate, no murmur ABDOMEN: Soft, non-tender. Non-distended. Bowel sounds present in all 4 quadrants. EXTREMITIES: Bilateral BKA's. BACK: no cervical, thoracic, lumbar midline tenderness. No saddle anesthesia, normal distal neurovascular exam. NEUROLOGICAL: Alert and oriented x3. Normal speech. [cranial nerves II through XII grossly intact]. PSYCH: Normal affect, normal mood. SKIN: Warm, dry, normal turgor. No rashes or lesions noted. (CATRINA ESPOSITO) Course - Laboratory Result Diagrams: 03/22/18 03:40 03/22/18 03:40 <CATRINA ESPOSITO - Last Filed: 03/22/18 05:43> - Laboratory Result Diagrams: 03/22/18 03:40 03/22/18 03:40 <KAYLAH BHAGAT - Last Filed: 03/22/18 11:50> - Re-evaluation Re-evalutation: Patient without any chest pain on my evaluation. He is alert, talkative, well- appearing. Benign abdomen. He does have decreased breath sounds and some minimal soft rales in the right lower lung, he is not in respiratory distress, no hypoxia. Borderline tachycardia. Patient's chest pain was very atypical, he states he comes back when he has coughing episodes. EKG showing borderline T-wave inversions laterally, no ST segment changes, no significant change from prior. Borderline QTC, left axis deviation. Chest x-ray unremarkable with no rales or consolidation. CBC unremarkable. Blood gas is normal. (CATRINA ESPOSITO) 03/22/18 08:16 Patient's troponin mildly elevated from previous, currently 0.217. Spoke with my attending physician, Dr. Villanueva who recommends patient be transferred. Discussed this with the patient who is requesting [facility] as he states he has been there before. Call placed to transfer center, awaiting callback. 03/22/18 08:40 Dr Nelson from [facility] is accepting this patient under the service of Dr. Menjivar. Pending bed placement at this time. Patient continues to be chest pain-free. 03/22/18 11:20 Patient requesting medication for headache as well as shortness of breath. Medication orders placed. 03/22/18 11:49 [facility] transport crew is at bedside at this time. Patient reexamined, denies any chest pain. Vital signs are stable. Patient stable for transport. (KAYLAH BHAGAT) - Vital Signs Vital signs: Temp Pulse Resp BP Pulse Ox 98.3 F 19 151/86 H 94 03/22/18 09:01 03/22/18 10:30 03/22/18 10:30 03/22/18 10:30 - Laboratory Laboratory results interpreted by me: 03/22/18 03/22/18 03/22/18 03:40 03:40 03:40 RBC 3.85 L Hgb 11.8 L Hct 34.8 L RDW 14.5 H Plt Count 137 L Potassium 5.7 H Chloride 110 H Carbon Dioxide 19 L BUN 53 H Creatinine 9.16 H Est GFR ( Amer) 7 L Est GFR (Non-Af Amer) 6 L Calcium 8.2 L AST 175 H ALT 110 H Lipase 534.2 H Discharge <CATRINA ESPOSITO - Last Filed: 03/22/18 05:43> <KAYLAH BHAGAT - Last Filed: 03/22/18 11:50> - Discharge Clinical Impression: Right-sided chest pain, Cough Condition: Stable Disposition: HOME, SELF-CARE Additional Instructions: Your workup shows potassium that is slowly elevating. Please follow-up with your dialysis first thing in the morning tomorrow. Your liver enzymes are slightly trending upwards, these need to be monitored with repeat testing. Your chest x-ray is normal. Remaining workup was nonspecific. Return to the emergency department if you worsen including difficulty breathing , passing out, fever, or any other concerning or worsening symptoms. Referrals: YOSHI JEAN-BAPTISTE, DYE WORKER [Primary Care Provider] - Follow up as needed
[2018-03-22 03:55] LABS: ABSOLUTE BASOPHILS # (AUTO) 0.1 10^3/uL (0.0-0.2); ABSOLUTE EOSINOPHILS # (AUTO) 0.2 10^3/uL (0.0-0.6); ABSOLUTE LYMPHOCYTES (AUTO) 1.6 10^3/uL (0.5-4.7); ABSOLUTE MONOCYTES (AUTO) 0.9 10^3/uL (0.1-1.4); ABSOLUTE NEUT (AUTO) 4.2 10^3/uL (1.7-8.2); BASOPHILS % (AUTO) 0.8 % (0-2); EOSINOPHILS % (AUTO) 2.3 % (0-6); HEMATOCRIT 34.8 % (37.9-51.0); HEMOGLOBIN 11.8 g/dL (13.5-17.0); LYMPHOCYTES % (AUTO) 23.9 % (13-45); MEAN CORPUSCULAR HEMOGLOBIN 30.6 pg (27.0-33.4); MEAN CORPUSCULAR HGB CONC 33.8 g/dL (32.0-36.0); MEAN CORPUSCULAR VOLUME 90 fl (80-97); MONOCYTES % (AUTO) 12.9 % (3-13); PLATELET COUNT 137 10^3/uL (150-450); RED BLOOD COUNT 3.85 10^6/uL (4.35-5.55); RED CELL DISTRIBUTION WIDTH 14.5 % (11.5-14.0); SEGMENTED NEUTROPHILS % (AUTO) 60.1 % (42-78); TOTAL CELLS COUNTED % (AUTO) 100 %; WHITE BLOOD COUNT 6.9 10^3/uL (4.0-10.5)
[2018-03-22 03:56] LABS: VENOUS BLOOD BASE EXCESS -3.7 mmol/L; VENOUS BLOOD HCO3 20.9 mmol/L (20-32); VENOUS BLOOD PH 7.38 (7.30-7.42)
--- NOTE | 2018-03-22 03:59 | RADIOLOGY REPORT (SQ) ---
PROCEDURE: XR CHEST 1 VIEW HISTORY: chest pain, cough COMPARISON: 03/15/2018 TECHNIQUE: The study was done on 03/22/2018 at 3:50 AM Single projection of the chest was done. FINDINGS: There is no interval change in the position of the left-sided venous access catheter . There are no discrete airspace infiltrates, pneumothoraces or pleural effusions. The pulmonary vascularity is normal. The cardiomediastinal silhouette is stable. IMPRESSION: There is no acute pleural-parenchymal process seen in the imaged lung fisher. Location of Interpretation: [facility]
[2018-03-22 04:09] LABS: ALANINE AMINOTRANSFERASE 110 U/L (21-72); ALBUMIN 3.6 g/dL (3.5-5.0); ALKALINE PHOSPHATASE 95 U/L (38-126); ANION GAP 13 (5-19); ASPARTATE AMINO TRANSFERASE 175 U/L (17-59); BILIRUBIN,DIRECT 0.4 mg/dL (0.0-0.4); BILIRUBIN,TOTAL 0.5 mg/dL (0.2-1.3); BLOOD UREA NITROGEN 53 mg/dL (7-20); CALCIUM 8.2 mg/dL (8.4-10.2); CARBON DIOXIDE 19 mmol/L (22-30); CHLORIDE 110 mmol/L (98-107); GLUCOSE 101 mg/dL (75-110); POTASSIUM 5.7 mmol/L (3.6-5.0); SODIUM 141.9 mmol/L (137-145); TOTAL PROTEIN 6.7 g/dL (6.3-8.2)
[2018-03-22] MEDS ORDERED: LEVALBUTEROL HCL NEB 1.25 MG/3 ML AMPUL NEB ONE (06:01)
[2018-03-22] MEDS ORDERED: ISOSORBIDE MONONITRATE 60 MG TAB.ER.24H PO ONE (06:04)
[2018-03-22] MEDS ORDERED: APIXABAN 2.5 MG TABLET PO ONE (06:04)
[2018-03-22] MEDS ORDERED: AMLODIPINE BESYLATE 10 MG TABLET PO ONE (06:04)
[2018-03-22] MEDS ORDERED: CARVEDILOL 12.5 MG TABLET PO ONE (06:05)
[2018-03-22] MEDS ORDERED: FUROSEMIDE INJ/PF 40 MG/4 ML SDV IV ONE (06:06)
--- NOTE | 2018-03-22 09:39 | EKG REPORT ---
SEVERITY:- ABNORMAL ECG - SINUS RHYTHM PROBABLE LEFT ATRIAL ABNORMALITY LVH WITH SECONDARY REPOLARIZATION ABNORMALITY BORDERLINE PROLONGED QT INTERVAL : Confirmed by: Marco Young MD 22-Mar-2018 09:38:44
[2018-03-22 10:47] VITALS: BP 151/86
[2018-03-22] MEDS ORDERED: IPRATROPIUM/ALBUTEROL 0.5-2.5 MG/3 ML AMPUL NEB ONE (11:04)
[2018-03-22] MEDS ORDERED: MORPHINE SULFATE 10 MG/ML INJ IV ONE (11:04)
== END 2018-03-22 12:00 | disposition short-term general hospital (02) ==
LOC: ER 03:07
DX: R07.9 Chest pain, unspecified (principal); R05 Cough; M79.605 Pain in left leg; J44.9 Chronic obstructive pulmonary disease, unspecified; R74.8 Abnormal levels of other serum enzymes; I12.0 Hypertensive chronic kidney disease with stage 5 chronic kidney disease or end stage renal disease; E11.22 Type 2 diabetes mellitus with diabetic chronic kidney disease; N18.6 End stage renal disease; Z99.2 Dependence on renal dialysis; Z79.4 Long term (current) use of insulin; F17.200 Nicotine dependence, unspecified, uncomplicated; R51 Headache; R06.02 Shortness of breath; Z21 Asymptomatic human immunodeficiency virus [HIV] infection status; Z89.512 Acquired absence of left leg below knee; Z89.511 Acquired absence of right leg below knee; Z86.718 Personal history of other venous thrombosis and embolism; Z86.711 Personal history of pulmonary embolism
CPT/HCPCS: 93005; 94640; 99285; 96374; 96375; 36415; 87040; 83690; 85025; 80053; 84484; 82803; 71045; 93010; J1940; J2270; J3490; J7620

== ENCOUNTER 2018-04-02 05:58 | Emergency (ER) | payer MEDICAID ==
--- NOTE | 2018-04-02 06:26 | RADIOLOGY REPORT (SQ) ---
EXAM DESCRIPTION: XR CHEST 1 VIEW COMPLETED DATE/TME: 04/02/2018 06:08 CLINICAL HISTORY: 62 years Male, sob COMPARISON: 9.2.18 NUMBER OF VIEWS/TECHNIQUE: 1/AP FINDINGS: Small obscuration-fusion of bilateral costophrenic angles, pulmonary vascular congestion, small left lower retrocardiac atelectasis or scar, right upper thoracic clips, left jugular double lumen catheter tip at the cavoatrial junction. No pneumothorax. Stable bony thorax. IMPRESSION: No significant change.
[2018-04-02 06:32] LABS: ABSOLUTE EOSINOPHILS # (AUTO) 0.2 10^3/uL (0.0-0.6); ABSOLUTE LYMPHOCYTES (AUTO) 2.1 10^3/uL (0.5-4.7); ABSOLUTE MONOCYTES (AUTO) 0.7 10^3/uL (0.1-1.4); ABSOLUTE NEUT (AUTO) 4.5 10^3/uL (1.7-8.2); BASOPHILS % (AUTO) 0.4 % (0-2); EOSINOPHILS % (AUTO) 2.6 % (0-6); HEMATOCRIT 34.9 % (37.9-51.0); HEMOGLOBIN 11.6 g/dL (13.5-17.0); LYMPHOCYTES % (AUTO) 28.5 % (13-45); MEAN CORPUSCULAR HEMOGLOBIN 30.3 pg (27.0-33.4); MEAN CORPUSCULAR HGB CONC 33.2 g/dL (32.0-36.0); MEAN CORPUSCULAR VOLUME 91 fl (80-97); MONOCYTES % (AUTO) 8.8 % (3-13); PLATELET COUNT 217 10^3/uL (150-450); RED BLOOD COUNT 3.82 10^6/uL (4.35-5.55); SEGMENTED NEUTROPHILS % (AUTO) 59.7 % (42-78); TOTAL CELLS COUNTED % (AUTO) 100 %; WHITE BLOOD COUNT 7.5 10^3/uL (4.0-10.5)
[2018-04-02] MEDS ORDERED: IPRATROPIUM/ALBUTEROL 0.5-2.5 MG/3 ML AMPUL NEB ONE (06:37)
[2018-04-02] MEDS ORDERED: FUROSEMIDE INJ/PF 40 MG/4 ML SDV IV ONE (06:38)
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
[2018-04-02 06:49] LABS: ALANINE AMINOTRANSFERASE 90 U/L (21-72); ALBUMIN 3.7 g/dL (3.5-5.0); ALKALINE PHOSPHATASE 106 U/L (38-126); ANION GAP 12 (5-19); ASPARTATE AMINO TRANSFERASE 122 U/L (17-59); BILIRUBIN,DIRECT 0.4 mg/dL (0.0-0.4); BILIRUBIN,TOTAL 0.4 mg/dL (0.2-1.3); BLOOD UREA NITROGEN 84 mg/dL (7-20); CALCIUM 7.9 mg/dL (8.4-10.2); CARBON DIOXIDE 15 mmol/L (22-30); CHLORIDE 115 mmol/L (98-107); GLUCOSE 106 mg/dL (75-110); POTASSIUM 5.3 mmol/L (3.6-5.0); TOTAL PROTEIN 7.4 g/dL (6.3-8.2)
[2018-04-02] MEDS ORDERED: ALBUTEROL SULFATE 0.083% NEB 2.5 MG/3 ML AMPUL NEB ONE (07:31)
[2018-04-02] MEDS ORDERED: SODIUM POLYSTYRENE SULFONATE 15 GM/60 ML PO ONE ×2 (07:31→08:00)
[2018-04-02] MEDS ORDERED: METHYLPREDNISOLONE INJ 125 MG/2 ML SDV IV ONE (07:52)
[2018-04-02] MEDS ORDERED: NITROGLYCERIN 2% OINTMENT 1 GM PACKET TP ONE (08:58)
--- NOTE | 2018-04-02 09:26 | EKG REPORT ---
SEVERITY:- ABNORMAL ECG - SINUS RHYTHM LEFT AXIS DEVIATION LVH WITH SECONDARY REPOLARIZATION ABNORMALITY PROLONGED QT INTERVAL : Confirmed by: Beulah Storm 02-Apr-2018 09:26:02
[2018-04-02 10:20] VITALS: BP 168/95
== END 2018-04-02 10:20 | disposition home or self-care (01) ==
LOC: ER 05:58
DX: I13.2 Hypertensive heart and chronic kidney disease with heart failure and with stage 5 chronic kidney disease, or end stage renal disease (principal); E11.22 Type 2 diabetes mellitus with diabetic chronic kidney disease; N18.6 End stage renal disease; Z99.2 Dependence on renal dialysis; R06.00 Dyspnea, unspecified; Z91.15 Patient's noncompliance with renal dialysis; Z79.4 Long term (current) use of insulin; F17.200 Nicotine dependence, unspecified, uncomplicated; J44.9 Chronic obstructive pulmonary disease, unspecified; K21.9 Gastro-esophageal reflux disease without esophagitis; I25.2 Old myocardial infarction; Z86.711 Personal history of pulmonary embolism; Z86.718 Personal history of other venous thrombosis and embolism; Z89.511 Acquired absence of right leg below knee; Z89.612 Acquired absence of left leg above knee
CPT/HCPCS: 93005; 94640 ×2; 99285; 96374; 96375; 36415; 85025; 80053; 84484; 71045; 93010; J3490 ×2; J1940; J2930; J7620

== ENCOUNTER 2018-04-04 12:38 | Emergency (ER) | payer MEDICAID ==
[2018-04-04] MEDS ORDERED: FUROSEMIDE INJ/PF 40 MG/4 ML SDV IV ONE (12:57)
[2018-04-04 14:47] LABS: ABSOLUTE BASOPHILS # (AUTO) 0.1 10^3/uL (0.0-0.2); ABSOLUTE EOSINOPHILS # (AUTO) 0.1 10^3/uL (0.0-0.6); ABSOLUTE LYMPHOCYTES (AUTO) 1.7 10^3/uL (0.5-4.7); ABSOLUTE MONOCYTES (AUTO) 0.5 10^3/uL (0.1-1.4); ABSOLUTE NEUT (AUTO) 2.3 10^3/uL (1.7-8.2); BASOPHILS % (AUTO) 1.1 % (0-2); EOSINOPHILS % (AUTO) 2.4 % (0-6); HEMOGLOBIN 10.2 g/dL (13.5-17.0); LYMPHOCYTES % (AUTO) 37.1 % (13-45); MEAN CORPUSCULAR HEMOGLOBIN 30.7 pg (27.0-33.4); MEAN CORPUSCULAR HGB CONC 34.1 g/dL (32.0-36.0); MEAN CORPUSCULAR VOLUME 90 fl (80-97); MONOCYTES % (AUTO) 11.5 % (3-13); PLATELET COUNT 215 10^3/uL (150-450); RED BLOOD COUNT 3.34 10^6/uL (4.35-5.55); RED CELL DISTRIBUTION WIDTH 15.2 % (11.5-14.0); SEGMENTED NEUTROPHILS % (AUTO) 47.9 % (42-78); TOTAL CELLS COUNTED % (AUTO) 100 %; WHITE BLOOD COUNT 4.7 10^3/uL (4.0-10.5)
[2018-04-04 15:04] LABS: ANION GAP 12 (5-19); BLOOD UREA NITROGEN 88 mg/dL (7-20); CARBON DIOXIDE 16 mmol/L (22-30); CHLORIDE 114 mmol/L (98-107); GLUCOSE 96 mg/dL (75-110); POTASSIUM 4.3 mmol/L (3.6-5.0); SODIUM 141.8 mmol/L (137-145)
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
[2018-04-04 15:51] VITALS: BP 148/85
--- NOTE | 2018-04-04 21:20 | EKG REPORT ---
SEVERITY:- ABNORMAL ECG - SINUS RHYTHM PROBABLE LEFT ATRIAL ABNORMALITY LEFT VENTRICULAR HYPERTROPHY PROLONGED QT INTERVAL : Confirmed by: Beulah Storm 04-Apr-2018 21:20:04
== END 2018-04-04 15:51 | disposition home or self-care (01) ==
LOC: ER 12:38
DX: T82.9XXA Unspecified complication of cardiac and vascular prosthetic device, implant and graft, initial encounter (principal); R06.02 Shortness of breath; F14.10 Cocaine abuse, uncomplicated; I12.0 Hypertensive chronic kidney disease with stage 5 chronic kidney disease or end stage renal disease; E11.22 Type 2 diabetes mellitus with diabetic chronic kidney disease; N18.6 End stage renal disease; Z99.2 Dependence on renal dialysis; Z79.4 Long term (current) use of insulin; X06.3XXA Exposure to melting of other clothing and apparel, initial encounter
CPT/HCPCS: 93005; 99285; 96374; 36415; 85025; 80048; 93010; J1940

== ENCOUNTER → 2018-04-22 | Outpatient (CLI) | payer MEDICAID ==
[2018-04-22 17:31] LABS: ABSOLUTE EOSINOPHILS # (AUTO) 0.2 10^3/uL (0.0-0.6); ABSOLUTE MONOCYTES (AUTO) 0.7 10^3/uL (0.1-1.4); ABSOLUTE NEUT (AUTO) 2.3 10^3/uL (1.7-8.2); BASOPHILS % (AUTO) 0.7 % (0-2); EOSINOPHILS % (AUTO) 4.1 % (0-6); HEMOGLOBIN 14.2 g/dL (13.5-17.0); LYMPHOCYTES % (AUTO) 38.2 % (13-45); MEAN CORPUSCULAR HEMOGLOBIN 31.9 pg (27.0-33.4); MEAN CORPUSCULAR HGB CONC 34.6 g/dL (32.0-36.0); MEAN CORPUSCULAR VOLUME 92 fl (80-97); MONOCYTES % (AUTO) 13.6 % (3-13); PLATELET COUNT 150 10^3/uL (150-450); RED BLOOD COUNT 4.44 10^6/uL (4.35-5.55); RED CELL DISTRIBUTION WIDTH 15.9 % (11.5-14.0); SEGMENTED NEUTROPHILS % (AUTO) 43.4 % (42-78); TOTAL CELLS COUNTED % (AUTO) 100 %; WHITE BLOOD COUNT 5.2 10^3/uL (4.0-10.5)
[2018-04-22 18:19] LABS: ALANINE AMINOTRANSFERASE 58 U/L (21-72); ALBUMIN 4.6 g/dL (3.5-5.0); ALKALINE PHOSPHATASE 85 U/L (38-126); ANION GAP 17 (5-19); ASPARTATE AMINO TRANSFERASE 38 U/L (17-59); BILIRUBIN,DIRECT 0.5 mg/dL (0.0-0.4); BILIRUBIN,TOTAL 0.5 mg/dL (0.2-1.3); BLOOD UREA NITROGEN 41 mg/dL (7-20); CALCIUM 8.4 mg/dL (8.4-10.2); CARBON DIOXIDE 22 mmol/L (22-30); CHLORIDE 104 mmol/L (98-107); GLUCOSE 81 mg/dL (75-110); SODIUM 142.5 mmol/L (137-145); TOTAL PROTEIN 8.4 g/dL (6.3-8.2)
[2018-04-24 16:39] LABS: % CD 4 POS LYMPH 20.9 % (30.8-58.5); ABSOLUTE CD 4 HELPER 481 /uL (359-1519); CD BASOPHILS 1 % (Not Estab.); CD EOSINOPHILS 3 % (Not Estab.); CD MONOCYTES 10 % (Not Estab.); CD NEUTROPHILS 45 % (Not Estab.); EOSINOPHILS (ABSOLUTE) 0.2 x10E3/uL (0.0-0.4); HEMOGLOBIN 13.6 g/dL (13.0-17.7); IMMATURE GRANULOCYTES 0 % (Not Estab.); LYMPHS(ABSOLUTE) 2.3 x10E3/uL (0.7-3.1); MCH 30.4 pg (26.6-33.0); MCHC 32.8 g/dL (31.5-35.7); MCV 93 fL (79-97); MONOCYTES(ABSOLUTE) 0.5 x10E3/uL (0.1-0.9); NEUTROPHILS(ABSOLUTE) 2.6 x10E3/uL (1.4-7.0); PLATELETS 153 x10E3/uL (150-379); RBC 4.48 x10E6/uL (4.14-5.80); RDW 15.8 % (12.3-15.4); WBC 5.6 x10E3/uL (3.4-10.8)
== END ==
LOC: OD 16:14
PROVIDERS: ATTEND Nurse Practitioner
DX: B20 Human immunodeficiency virus [HIV] disease (principal); Z11.3 Encounter for screening for infections with a predominantly sexual mode of transmission
CPT/HCPCS: 36415; 80053; 85025; 86361; 86592; 87536

== ENCOUNTER 2018-05-02 05:09 | Observation (INO) | payer MEDICAID ==
[2018-05-02] MEDS ORDERED: ASPIRIN 81 MG TABLET, CHEWABLE PO ONE (05:20)
--- NOTE | 2018-05-02 05:29 | ER Document Report ---
ED Medical Screen (RME) - General Stated Complaint: CHEST TIGHTNESS Time Seen by Provider: 05/02/18 05:27 Mode of Arrival: Ambulatory Information source: Patient Notes: Patient is a 62-year-old male who presents with chief complaint of chest pain and hypertension. Patient reports he is a dialysis patient and yesterday during dialysis he began having chest pain and they measured his blood pressure and it was 200 systolic. Patient reports he then went and picked up his blood pressure medications from the pharmacy and decided not to come to the ER. Patient reports when he woke up this morning at 4 AM he had increased chest pain with shortness of breath. Patient is a known cocaine user states he last used cocaine on Friday. Patient denies any nausea or diaphoresis. Exam: Chest wall nontender with palpation. Heart sounds S1-S2 present. Lung sounds clear to auscultation bilaterally. Patient alert and oriented with no distress noted. Skin warm and dry. I have greeted and performed a rapid initial assessment of this patient. A comprehensive ED assessment and evaluation of the patient, analysis of test results and completion of the medical decision making process will be conducted by additional ED providers. Dictation of this chart was performed using voice recognition software; therefore, there may be some unintended grammatical errors. TRAVEL OUTSIDE OF THE [place] IN LAST 30 DAYS: No - Related Data Allergies/Adverse Reactions: No Known Allergies Allergy (Verified 03/22/18 03:56) Past Medical History - Social History Family history: Reviewed & Not Pertinent - Past Medical History Cardiac Medical History: Reports: Hx Congestive Heart Failure - EF is 40%, with moderate diastolic dysfunction, Hx DVT, Hx Heart Attack, Hx Hypercholesterolemia , Hx Hypertension, Hx Peripheral Vascular Disease, Hx Pulmonary Embolism Pulmonary Medical History: Reports: Hx Bronchitis, Hx COPD, Hx Pneumonia Denies: Hx Asthma Neurological Medical History: Denies: Hx Migraine, Hx Seizures Endocrine Medical History: Reports: Hx Diabetes Mellitus Type 1 - 1.5, Hx Diabetes Mellitus Type 2 - insulin dependent Renal/ Medical History: Reports: Hx End Stage Renal Disease - Stage , Hx Peritoneal Dialysis, Hx Renal Insufficiency GI Medical History: Reports: Hx Gastroesophageal Reflux Disease Musculoskeltal Medical History: Reports Hx Arthritis, 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, Reports Hx Musculoskeletal Trauma Skin Medical History: Denies Hx Eczema Psychiatric Medical History: Denies: Hx Depression Traumatic Medical History: Denies: Hx Traumatic Brain Injury Infectious Medical History: Reports: Hx HIV Past Surgical History: Reports: Hx Orthopedic Surgery - bilateral amputation, R BKA, L AKA, Hx Vascular Surgery - left arm clot removed, IVC filter, Other - Endoscopy; Vascular surgery. - Immunizations Immunizations up to date: Yes Hx Diphtheria, Pertussis, Tetanus Vaccination: Yes History of Influenza Vaccine for 04/2017 - 09/2017 Season: Yes Influenza Administration Date for 04/2017 - 09/2017 Season: 04/20/17 Doctor's Discharge - Discharge Referrals: MATHIEU MACIAS FNP [Primary Care Provider] - Follow up as needed
[2018-05-02 05:33] LABS: ABSOLUTE BASOPHILS # (AUTO) 0.1 10^3/uL (0.0-0.2); ABSOLUTE EOSINOPHILS # (AUTO) 0.3 10^3/uL (0.0-0.6); ABSOLUTE LYMPHOCYTES (AUTO) 2.8 10^3/uL (0.5-4.7); ABSOLUTE MONOCYTES (AUTO) 0.7 10^3/uL (0.1-1.4); ABSOLUTE NEUT (AUTO) 2.2 10^3/uL (1.7-8.2); EOSINOPHILS % (AUTO) 4.4 % (0-6); HEMOGLOBIN 12.6 g/dL (13.5-17.0); LYMPHOCYTES % (AUTO) 46.2 % (13-45); MEAN CORPUSCULAR HGB CONC 34.1 g/dL (32.0-36.0); MEAN CORPUSCULAR VOLUME 91 fl (80-97); MONOCYTES % (AUTO) 11.4 % (3-13); PLATELET COUNT 153 10^3/uL (150-450); RED BLOOD COUNT 4.07 10^6/uL (4.35-5.55); RED CELL DISTRIBUTION WIDTH 15.1 % (11.5-14.0); TOTAL CELLS COUNTED % (AUTO) 100 %
[2018-05-02 05:46] LABS: ALANINE AMINOTRANSFERASE 17 U/L (21-72); ALBUMIN 3.5 g/dL (3.5-5.0); ALKALINE PHOSPHATASE 78 U/L (38-126); ANION GAP 12 (5-19); ASPARTATE AMINO TRANSFERASE 20 U/L (17-59); BILIRUBIN,DIRECT 0.4 mg/dL (0.0-0.4); BILIRUBIN,TOTAL 0.4 mg/dL (0.2-1.3); BLOOD UREA NITROGEN 54 mg/dL (7-20); CALCIUM 7.1 mg/dL (8.4-10.2); CARBON DIOXIDE 23 mmol/L (22-30); CHLORIDE 108 mmol/L (98-107); CREATINE KINASE 60 U/L (55-170); GLUCOSE 98 mg/dL (75-110); POTASSIUM 3.9 mmol/L (3.6-5.0); SODIUM 142.8 mmol/L (137-145); TOTAL PROTEIN 6.6 g/dL (6.3-8.2)
--- NOTE | 2018-05-02 05:49 | RADIOLOGY REPORT (SQ) ---
EXAM DESCRIPTION: XR CHEST 1 VIEW COMPLETED DATE/TME: 05/02/2018 05:20 CLINICAL HISTORY: 62 years, Male, chest pain COMPARISON: 04/02/2018 NUMBER OF VIEWS: One TECHNIQUE: AP view the chest LIMITATIONS: None. FINDINGS: There is improvement of the pulmonary vascular congestion. There is no focal consolidation. There is left basilar scarring/atelectasis. The heart size is stable. There is no pneumothorax or pleural effusion. The left-sided dialysis catheter has been removed. There is no acute fracture. IMPRESSION: No acute cardiopulmonary abnormality 2010 [employer]- All Rights Reserved
[2018-05-02 05:59] LABS: CREATINE KINASE MB 1.58 ng/mL (<4.55)
[2018-05-02 06:15] LABS: TROPONIN I 0.085 ng/mL
[2018-05-02] MEDS ORDERED: NITROGLYCERIN 2% OINTMENT 1 GM PACKET TP ONE (06:43)
--- NOTE | 2018-05-02 06:49 | ER Document Report ---
ED General - General Chief Complaint: Chest Tightness Stated Complaint: CHEST TIGHTNESS Time Seen by Provider: 05/02/18 05:27 Mode of Arrival: Ambulatory TRAVEL OUTSIDE OF THE [place] IN LAST 30 DAYS: No - HPI Notes: Patient is a 82-year-old male that presents to the emergency department for chief complaint of chest pain. Patient reports around 4 AM this morning he started having chest tightness. It is substernal and nonradiating. He reports associated nausea diaphoresis and shortness of breath. He has a history of SC in the past but is not sure how long ago. He is also on dialysis and had a treatment yesterday that was stopped early because of an issue with his fistula. Patient did receive aspirin and 2 sublingual nitro prior to arrival and states he feels much better. His pain has almost completely resolved. Past Medical History: Hypertension, DVT, SC, CKD Past Surgical History: Bilateral leg amputations Social History: Denies drugs alcohol and tobacco Family History: Reviewed and noncontributory for presenting illness Allergies: Reviewed, see documented allergy list. REVIEW OF SYSTEMS: CONSTITUTIONAL : No fever No chills diaphoresis No recent illness EENT: No vision changes No congestion No sore throat CARDIOVASCULAR: chest pain No palpitations RESPIRATORY: shortness of breath No cough No difficulty breathing GASTROINTESTINAL: No abdominal pain nausea No vomiting No diarrhea GENITOURINARY: No dysuria No hematuria No difficulty urinating MUSCULOSKELETAL: No back pain No leg pain No arm pain SKIN: No rashes No lesions LYMPHATIC: No swollen, enlarged glands. NEUROLOGICAL: No lightheadedness No headache No weakness No paresthesias PSYCHIATRIC: No anxiety No depression PHYSICAL EXAMINATION: Vital signs reviewed, nursing noted reviewed. GENERAL: Well-appearing, well-nourished and in no acute distress. HEAD: Atraumatic, normocephalic. EYES: Eyes appear normal, extraocular movements intact, sclera anicteric, conjunctiva are normal. ENT: nares patent, oropharynx clear without exudates. Moist mucous membranes. NECK: Normal range of motion, supple without lymphadenopathy LUNGS: Breath sounds clear to auscultation bilaterally and equal. No wheezes rales or rhonchi. HEART: Regular rate and rhythm without murmurs. Left arm dialysis fistula good bruit and thrill, no bleeding. ABDOMEN: Soft, nontender, normoactive bowel sounds. No rebound, guarding, or rigidity. No masses appreciated. EXTREMITIES: Nontender, good range of motion, no pitting or edema. NEUROLOGICAL: No focal neurological deficits. Moves all extremities spontaneously Motor and sensory grossly intact on exam. Left AKA, right BKA PSYCH: Normal mood, normal affect. SKIN: Warm, Dry, normal turgor, no rashes or lesions noted on exposed skin - Related Data Allergies/Adverse Reactions: No Known Allergies Allergy (Verified 03/22/18 03:56) Past Medical History - General Information source: Patient - Social History Smoking Status: Current Every Day Smoker Frequency of alcohol use: Rare Drug Abuse: Cocaine Family History: CAD, CVA, DM, Hyperlipidemia, Hypertension, Malignancy Patient has suicidal ideation: No Patient has homicidal ideation: No - Past Medical History Cardiac Medical History: Reports: Hx Congestive Heart Failure - EF is 40%, with moderate diastolic dysfunction, Hx DVT, Hx Heart Attack, Hx Hypercholesterolemia , Hx Hypertension, Hx Peripheral Vascular Disease, Hx Pulmonary Embolism Pulmonary Medical History: Reports: Hx Bronchitis, Hx COPD, Hx Pneumonia Denies: Hx Asthma Neurological Medical History: Denies: Hx Migraine, Hx Seizures Endocrine Medical History: Reports: Hx Diabetes Mellitus Type 1 - 1.5, Hx Diabetes Mellitus Type 2 - insulin dependent Renal/ Medical History: Reports: Hx End Stage Renal Disease - Stage , Hx Renal Insufficiency. Denies: Hx Peritoneal Dialysis GI Medical History: Reports: Hx Gastroesophageal Reflux Disease Musculoskeletal Medical History: Reports Hx Arthritis, 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, Reports Hx Musculoskeletal Trauma Skin Medical History: Denies Hx Eczema Psychiatric Medical History: Denies: Hx Depression Traumatic Medical History: Denies: Hx Traumatic Brain Injury Infectious Medical History: Reports: Hx HIV Past Surgical History: Reports: Hx Orthopedic Surgery - bilateral amputation, R BKA, L AKA, Hx Vascular Surgery - left arm clot removed, IVC filter, Other - Endoscopy; Vascular surgery. - Immunizations Immunizations up to date: Yes Hx Diphtheria, Pertussis, Tetanus Vaccination: Yes Hx Pneumococcal Vaccination: 07/21/10 Review of Systems - Review of Systems Notes: Dictated Physical Exam - Vital signs Vitals: Resp Pulse Ox 15 96 05/02/18 05:14 05/02/18 05:14 - Notes Notes: Dictated Course - Re-evaluation Re-evalutation: 05/02/18 06:47 Vitals reviewed. Nursing notes reviewed. EKG shows no acute ischemia. Patient had significant relief after nitro and nitro paste was placed on his chest. Patient remained on telemetry monitoring. His lab work shows his chronic renal failure with a normal potassium. Troponin is indeterminate at 0.085. Patient will be admitted to the hospital for continued evaluation of his chest pain and indeterminate troponin. Laboratory 05/02/18 05/02/18 05/02/18 05:22 05:22 05:22 WBC 6.0 RBC 4.07 L Hgb 12.6 L Hct 37.0 L MCV 91 MCH 31.0 MCHC 34.1 RDW 15.1 H Plt Count 153 Seg Neutrophils % 37.0 L Lymphocytes % 46.2 H Monocytes % 11.4 Eosinophils % 4.4 Basophils % 1.0 Absolute Neutrophils 2.2 Absolute Lymphocytes 2.8 Absolute Monocytes 0.7 Absolute Eosinophils 0.3 Absolute Basophils 0.1 Sodium 142.8 Potassium 3.9 Chloride 108 H Carbon Dioxide 23 Anion Gap 12 BUN 54 H Creatinine 6.30 H Est GFR ( Amer) 11 L Est GFR (Non-Af Amer) 9 L Glucose 98 Calcium 7.1 L Total Bilirubin 0.4 Direct Bilirubin 0.4 Neonat Total Bilirubin Not Reportable Neonat Direct Bilirubin Not Reportable Neonat Indirect Bili Not Reportable AST 20 ALT 17 L Alkaline Phosphatase 78 Creatine Kinase 60 CK-MB (CK-2) 1.58 Troponin I 0.085 NT-Pro-B Natriuret Pep 00395 H Total Protein 6.6 Albumin 3.5 Chest X-Ray 05/02/18 05:20 IMPRESSION: No acute cardiopulmonary abnormality 2010 [employer]- All Rights Reserved 05/02/18 07:58 Patient reports complete relief of chest pain. Case discussed with Dr. Newton and Deepti Almanza who accepts admission. - Vital Signs Vital signs: Temp Pulse Resp BP Pulse Ox 98.4 F 90 16 170/93 H 99 05/02/18 05:20 05/02/18 05:20 05/02/18 07:01 05/02/18 07:00 05/02/18 07:01 - Laboratory Result Diagrams: 05/02/18 05:22 05/02/18 05:22 Laboratory results interpreted by me: 05/02/18 05/02/18 05/02/18 05:22 05:22 05:22 RBC 4.07 L Hgb 12.6 L Hct 37.0 L RDW 15.1 H Seg Neutrophils % 37.0 L Lymphocytes % 46.2 H Chloride 108 H BUN 54 H Creatinine 6.30 H Est GFR ( Amer) 11 L Est GFR (Non-Af Amer) 9 L Calcium 7.1 L ALT 17 L NT-Pro-B Natriuret Pep 74878 H - EKG Interpretation by Me Additional EKG results interpreted by me: 05/02/18 06:48 Interpreted by myself 518: Normal sinus rhythm, rate 90, left axis, LVH, lateral T wave flattening Discharge - Discharge Clinical Impression: Elevated troponin Chest pain Qualifiers: Chest pain type: unspecified Qualified Code(s): R07.9 - Chest pain, unspecified Condition: Stable Disposition: ADMITTED OBSERVATION Admitting Provider: Hospitalist Unit Admitted: Telemetry Referrals: MATHIEU MACIAS FNP [Primary Care Provider] - Follow up as needed
[2018-05-02] MEDS ORDERED: ONDANSETRON HCL INJ/PF 4 MG/2 ML SDV IV PRN (08:43)
--- NOTE | 2018-05-02 09:34 | EKG REPORT ---
SEVERITY:- ABNORMAL ECG - SINUS RHYTHM LEFT AXIS DEVIATION LEFT VENTRICULAR HYPERTROPHY ABNORMAL T, CONSIDER ISCHEMIA, LATERAL LEADS PROLONGED QT INTERVAL : Confirmed by: Annita Coker MD 02-May-2018 09:34:00
[2018-05-02] MEDS ORDERED: CARVEDILOL 12.5 MG TABLET PO SCH (10:00)
[2018-05-02] MEDS ORDERED: LAMIVUDINE PO SCH (10:00)
[2018-05-02] MEDS ORDERED: (PENDING PHARMACY ID) (Dolutegravir Sodium [Tivicay] 50 MG) PO SCH (10:00)
[2018-05-02] MEDS ORDERED: (PENDING PHARMACY ID) (Calcitriol [Rocaltrol 0.5 Mcg Capsule] 0.5 MCG) PO SCH (10:00)
[2018-05-02] MEDS ORDERED: SODIUM POLYSTYRENE SULFONATE 15 GM/60 ML PO SCH (10:00)
[2018-05-02] MEDS: NITROGLYCERIN 2.5 MG (0.1 MG/HR) PATCH.TD24 TD SCH (10:05)
[2018-05-02] MEDS ORDERED: ACETAMINOPHEN 325 MG TABLET ONE (11:08)
[2018-05-02] MEDS ORDERED: ACETAMINOPHEN 325 MG TABLET PO PRN (11:08)
[2018-05-02] MEDS: APIXABAN 2.5 MG TABLET PO SCH ×2 (11:22→22:51)
[2018-05-02] MEDS: ASPIRIN 81 MG TABLET, ENT COATED PO SCH (11:22)
[2018-05-02] MEDS: AMLODIPINE BESYLATE 10 MG TABLET PO SCH (11:22)
[2018-05-02] MEDS: FAMOTIDINE 20 MG TABLET PO SCH ×2 (11:23→22:52)
[2018-05-02] MEDS: CALCITRIOL 0.25 MCG CAPSULE PO SCH ×2 (11:45→12:07)
[2018-05-02] MEDS ORDERED: IBUPROFEN 600 MG TABLET PO PRN (12:46)
[2018-05-02] MEDS ORDERED: CLONIDINE 0.3 MG/24 HR PATCH.TDWK TD SCH (13:00)
[2018-05-02] MEDS: CLONIDINE HCL 0.2 MG TABLET PO SCH ×2 (13:59→22:52)
[2018-05-02] MEDS ORDERED: DEXTROSE 50%-WATER 25 GM/50 ML DISP.SYRIN IV PRN ×2 (17:16)
[2018-05-02] MEDS ORDERED: DEXTROSE 40% GEL 15 GM TUBE PO PRN ×2 (17:16)
[2018-05-02] MEDS ORDERED: INSULIN LISPRO 100 UNIT/ML 3 ML VIAL SUBCUT PRN (17:16)
[2018-05-02] MEDS ORDERED: GLUCAGON,HUMAN RECOMB 1 MG INJ IM PRN (17:16)
--- NOTE | 2018-05-02 17:40 | PDOC H&P ---
History of Present Illness Admission Date/PCP: 05/02/18 08:28 ARUN MORA Patient complains of: chest tightness History of Present Illness: KRISTY CANTU is a 62 year old male, who is well-known to our service, with a past medical history of ESRD on hemodialysis MWF, CHF (LVEF 40%), DVT, UT, PE, chronically anticoagulated on Eliquis, HTN, HLD, PVD, COPD, GERD, substance abuse with continuous use, and HIV who presented to the emergency department today with a complaint of chest tightness and shortness of breath he noted after waking this morning. He reports that he had a half session of dialysis yesterday which was discontinued early when his AV fistula began leaking and malfunctioning. He states he was told at that time to report to the emergency department for evaluation of the fistula and management of severe hypertension. Instead, the patient decided to go home and attempt his home medications ( which he is known to be frequently noncompliant with). The remainder of his evening was uneventful. This morning, he called EMS due to his chest discomfort which was relieved by 2 tabs of nitroglycerin. He does endorse recent cocaine use. Evaluation in the emergency department reveals his baseline anemia, mildly elevated creatinine and BUN compared to his baseline, normal potassium, indeterminately elevated troponins (again minimally elevated compared to his baseline), and elevated proBNP of 46,000 (at baseline), an unremarkable chest x- ray, and EKG demonstrating normal sinus with LVH, inverted T waves to lateral leads, and a prolonged QT interval which is essentially unchanged from his previous EKG in March 2018. He is referred to the hospitalist service for observational admission and chest pain rule out. Past Medical History Cardiac Medical History: Reports: Congestive Heart Failure - EF is 40%, with moderate diastolic dysfunction, DVT, Myocardial Infarction, Hyperlipidema, Hypertension, Peripheral Vascular Disease, Pulmonary Embolism Pulmonary Medical History: Reports: Bronchitis, Chronic Obstructive Pulmonary Disease (COPD), Pneumonia Denies: Asthma EENT Medical History: Reports: None Neurological Medical History: Denies: Migraine, Seizures Endocrine Medical History: Reports: Diabetes Mellitus Type 2 - insulin dependent Renal/ Medical History: Reports: End Stage Renal Disease - on dialysis Malignancy Medical History: Reports: None GI Medical History: Reports: Gastroesophageal Reflux Disease Musculoskeltal Medical History: Reports: Arthritis Skin Medical History: Denies: Eczema Psychiatric Medical History: Reports: Substance Abuse Denies: Depression Traumatic Medical History: Denies: Traumatic Brain Injury Hematology: Reports: Anemia Infectious Medical History: Reports: HIV Past Surgical History Past Surgical History: Reports: Orthopedic Surgery - bilateral amputation, R BKA , L AKA, Vascular Surgery - left arm clot removed, IVC filter, Other - Endoscopy ; Vascular surgery. Social History Information Source: Patient Lives with: Alone Smoking Status: Current Every Day Smoker Cigarettes Packs Per Day: 0.5 Cigars Per Day: 0 Pipes Per Day: 0 Frequency of Alcohol Use: None Hx Recreational Drug Use: Yes - last used 04/29/2018 Drugs: Cocaine Hx Prescription Drug Abuse: No - Advance Directive Resuscitation Status: Full Code Family History Family History: CAD, CVA, DM, Hyperlipidemia, Hypertension, Malignancy Parental Family History Reviewed: Yes Children Family History Reviewed: Yes Sibling(s) Family History Reviewed.: Yes Medication/Allergy Home Medications: Amlodipine Besylate [Norvasc 10 mg Tablet] 10 mg PO DAILY 05/02/18 Apixaban [Eliquis] 2.5 mg PO Q12 05/02/18 Calcitriol [Rocaltrol 0.5 mcg Capsule] 0.5 mcg PO DAILY 05/02/18 Carvedilol [Coreg 12.5 mg Tablet] 12.5 mg PO Q12 05/02/18 Clonidine [Catapres-Tts 3 (0.3 mg/24 Hr) Transderm Patch] 1 patch TD GUTIÉRREZ@1000 Dolutegravir Sodium [Tivicay] 50 mg PO DAILY 05/02/18 Furosemide [Lasix 20 mg Tablet] 20 mg PO QAM 05/02/18 Isosorbide Mononitrate [Isosorbide Mononitrate ER] 60 mg PO DAILY 05/02/18 Lamivudine [Lamivudine Hbv] 5 mg PO DAILY 05/02/18 Sodium Polystyrene Sulfonate [Kayexalate 15 gm/60 ml Susp 60 ml] 15 gm PO DAILY 05/02/18 Allergies/Adverse Reactions: No Known Allergies Allergy (Verified 05/02/18 14:44) Review of Systems Constitutional: PRESENT: headache(s). ABSENT: chills, fever(s), weight gain, weight loss Eyes: ABSENT: visual disturbances Ears: ABSENT: hearing changes Cardiovascular: PRESENT: chest pain. ABSENT: dyspnea on exertion, edema, orthropnea, palpitations Respiratory: PRESENT: dyspnea. ABSENT: cough, hemoptysis Gastrointestinal: ABSENT: abdominal pain, constipation, diarrhea, hematemesis, hematochezia, nausea, vomiting Genitourinary: ABSENT: dysuria, hematuria Musculoskeletal: ABSENT: joint swelling Integumentary: ABSENT: rash, wounds Neurological: ABSENT: abnormal gait, abnormal speech, confusion, dizziness, focal weakness, syncope Psychiatric: ABSENT: anxiety, depression, homidical ideation, suicidal ideation Endocrine: ABSENT: cold intolerance, heat intolerance, polydipsia, polyuria Hematologic/Lymphatic: ABSENT: easy bleeding, easy bruising Physical Exam Vital Signs: Temp Pulse Resp BP Pulse Ox 98.3 F 87 17 154/84 H 99 05/02/18 15:16 05/02/18 15:16 05/02/18 15:16 05/02/18 15:16 05/02/18 15:16 Intake & Output 05/01/18 05/02/18 05/03/18 06:59 06:59 06:59 Weight 72.7 kg General appearance: PRESENT: no acute distress, obese, well-developed, well- nourished Head exam: PRESENT: atraumatic, normocephalic Eye exam: PRESENT: conjunctiva pink, EOMI, PERRLA. ABSENT: scleral icterus Ear exam: PRESENT: normal external ear exam Mouth exam: PRESENT: moist, tongue midline Neck exam: ABSENT: carotid bruit, JVD, lymphadenopathy, thyromegaly Respiratory exam: PRESENT: clear to auscultation ramila, symmetrical, unlabored. ABSENT: rales, rhonchi, wheezes Cardiovascular exam: PRESENT: RRR, +S1, +S2. ABSENT: diastolic murmur, rubs, systolic murmur Pulses: PRESENT: normal radial pulses Vascular exam: PRESENT: normal capillary refill GI/Abdominal exam: PRESENT: normal bowel sounds, soft. ABSENT: distended, guarding, mass, organolmegaly, rebound, tenderness Rectal exam: PRESENT: deferred Extremities exam: PRESENT: other - Bilateral leg amputee. ABSENT: calf tenderness, clubbing, pedal edema Neurological exam: PRESENT: alert, awake, oriented to person, oriented to place , oriented to time, oriented to situation, CN II-XII grossly intact. ABSENT: motor sensory deficit Psychiatric exam: PRESENT: appropriate affect, normal mood. ABSENT: homicidal ideation, suicidal ideation Skin exam: PRESENT: dry, intact, warm. ABSENT: cyanosis, rash Results Laboratory Results: 05/02/18 05/02/18 05/02/18 09:58 09:58 14:55 CK-MB (CK-2) 1.54 Troponin I 0.064 0.053 Impressions: Chest X-Ray 05/02/18 05:20 IMPRESSION: No acute cardiopulmonary abnormality 2010 [employer]- All Rights Reserved Assessment & Plan - Diagnosis (1) Chest pain Qualifiers: Chest pain type: unspecified Qualified Code(s): R07.9 - Chest pain, unspecified Is this a current diagnosis for this admission?: Yes Plan: After waking this morning the patient noted chest discomfort described as tightness associated with shortness of breath. The pain was nonradiating; no aggravating factors. He reports that the pain improved following sublingual nitroglycerin. Discomfort was likely multifactorial secondary to severe HTN ( BP 160/100 at time of arrival), CHF and COPD resulting in increased work of breathing in patient with continuous tobacco use, and possible vasospasm r/t recent cocaine use. EKG is unchanged from his previous study in March 2018. Initial troponin was indeterminately elevated, but near his baseline given his end-stage renal disease. Trended down x3 and no longer following. CKMB nml. ProBNP is elevated to >40k; at baseline. CXR unremarkable. The patient is admitted on continuous telemetry. We will continue his home dose of Eliquis 2.5 mg twice daily. Daily aspirin and atorvastatin therapy. Cardiac diet. Aggressive blood pressure control. We will ask cardiology to evaluate for necessity of stress testing. (2) Hypertension Is this a current diagnosis for this admission?: Yes Plan: The patient presented with blood pressure 160/100; improved to 154/84 with resumption of antihypertensives. He is placed on a cardiac and renal diet. Continue amlodipine 10 mg daily. Increase carvedilol to 25 mg twice daily. Clonidine 0.3 mg every 8 hours. Lisinopril 5 mg daily. Nitroglycerin 0.1 mg/h transdermal patch. Daily weights and strict I&Os. (3) Elevated troponin Is this a current diagnosis for this admission?: Yes Plan: Likely related to partial dialysis session yesterday. On arrival the patient was found to have an indeterminably elevated troponin; 0.085--> 0.064--> 0.053. Baseline of 0.06 Plan as above. (4) Anemia of chronic disease Is this a current diagnosis for this admission?: Yes Plan: Hgb 12.6 on arrival; baseline 11.0 No evidence of active bleeding. The registered phlebotomist part time is consulted. Nephrology is consulted. Will continue to monitor. (5) ESRD on hemodialysis Is this a current diagnosis for this admission?: Yes Plan: Dialysis patient on Mon, Wed, Fri. Sees Dr. Lowe. The patient reports a partial dialysis session yesterday due to fistula malfunction. AV fistula site to Lt forearm did not have a palpable thrill today. Will obtain a Duplex of the fistula. Nephrology is consulted. Continue outpatient meds: Eliquis, Calcitrol, Kayexalate. Renal and Cardiac diet. Daily weights, strict I&Os. (6) GERD (gastroesophageal reflux disease) Qualifiers: Esophagitis presence: esophagitis presence not specified Qualified Code(s) : K21.9 - Gastro-esophageal reflux disease without esophagitis Is this a current diagnosis for this admission?: Yes Plan: Pepcid twice daily. (7) HIV (human immunodeficiency virus infection) Is this a current diagnosis for this admission?: Yes Plan: Continue his home medications. (8) Tobacco abuse Is this a current diagnosis for this admission?: Yes Plan: Tobacco cessation encouraged; nicotine replacement therapy is provided. (9) Substance abuse, continuous Is this a current diagnosis for this admission?: Yes Plan: Pt endorses recent cocaine use. He acknowledges that this has been the cause of previous MIs and is likely complicating his current cardiac health; "I know is bad for me, I just got angry and turned to it." Declines mental health consultation. Discharge planning is consulted. (10) Full code status Is this a current diagnosis for this admission?: Yes - Time Time Spent: 50 to 70 Minutes Medications reviewed and adjusted accordingly: Yes Anticipated discharge: Home Within: within 24 hours
[2018-05-02] MEDS: NICOTINE 7 MG/24 HR PATCH.TD24 TD SCH (19:19)
[2018-05-02 21:19] LABS: APPEARANCE,URINE CLEAR; BILIRUBIN,URINE NEGATIVE (NEGATIVE); COLOR,URINE YELLOW; GLUCOSE, URINE 150 mg/dL (NEGATIVE); KETONES,URINE NEGATIVE (NEGATIVE); LEUKOCYTE ESTERASE,URINE SMALL (NEGATIVE); NITRITE,URINE NEGATIVE (NEGATIVE); PROTEIN,URINE 100 mg/dL (NEGATIVE); URINE SPECIFIC GRAVITY 1.013; UROBILINOGEN,URINE NEGATIVE mg/dL (<2.0)
[2018-05-02 21:28] LABS: URINE AMPHETAMINES SCREEN NEGATIVE; URINE BARBITURATES SCREEN NEGATIVE; URINE BENZODIAZEPINES SCREEN NEGATIVE; URINE MARIJUANA (THC) SCREEN NEGATIVE; URINE METHADONE SCREEN NEGATIVE; URINE PHENCYCLIDINE SCREEN NEGATIVE
[2018-05-02] MEDS ORDERED: APIXABAN 2.5 MG TABLET PO SCH (22:00)
[2018-05-02 22:22] LABS: URINE COCAINE SCREEN UNCONFIRMED POSITIVE
[2018-05-02] MEDS: ATORVASTATIN CALCIUM 80 MG TABLET PO SCH (22:51)
[2018-05-02] MEDS: CARVEDILOL 12.5 MG TABLET PO SCH (22:51)
[2018-05-03 05:42] LABS: HEMATOCRIT 32.7 % (37.9-51.0); HEMOGLOBIN 11.1 g/dL (13.5-17.0); MEAN CORPUSCULAR HEMOGLOBIN 31.4 pg (27.0-33.4); MEAN CORPUSCULAR HGB CONC 33.9 g/dL (32.0-36.0); MEAN CORPUSCULAR VOLUME 93 fl (80-97); PLATELET COUNT 144 10^3/uL (150-450); RED BLOOD COUNT 3.53 10^6/uL (4.35-5.55); RED CELL DISTRIBUTION WIDTH 15.5 % (11.5-14.0); WHITE BLOOD COUNT 5.1 10^3/uL (4.0-10.5)
[2018-05-03 06:05] LABS: ANION GAP 17 (5-19); BLOOD UREA NITROGEN 63 mg/dL (7-20); CALCIUM 7.1 mg/dL (8.4-10.2); CARBON DIOXIDE 19 mmol/L (22-30); CHLORIDE 103 mmol/L (98-107); GLUCOSE 94 mg/dL (75-110); POTASSIUM 4.1 mmol/L (3.6-5.0); SODIUM 138.8 mmol/L (137-145)
[2018-05-03] MEDS: CLONIDINE HCL 0.2 MG TABLET PO SCH ×3 (06:19→21:34)
[2018-05-03] MEDS: FUROSEMIDE 20 MG TABLET PO SCH (08:40)
[2018-05-03] MEDS: NICOTINE 7 MG/24 HR PATCH.TD24 TD SCH (09:46)
[2018-05-03] MEDS: LISINOPRIL 5 MG TABLET PO SCH (09:47)
[2018-05-03] MEDS: ASPIRIN 81 MG TABLET, ENT COATED PO SCH (09:47)
[2018-05-03] MEDS: APIXABAN 2.5 MG TABLET PO SCH ×2 (09:47→21:34)
[2018-05-03] MEDS: NITROGLYCERIN 2.5 MG (0.1 MG/HR) PATCH.TD24 TD SCH (09:47)
[2018-05-03] MEDS: AMLODIPINE BESYLATE 10 MG TABLET PO SCH (09:47)
[2018-05-03] MEDS: CARVEDILOL 12.5 MG TABLET PO SCH ×2 (09:47→21:34)
[2018-05-03] MEDS: FAMOTIDINE 20 MG TABLET PO SCH ×2 (09:47→21:34)
[2018-05-03] MEDS: CALCITRIOL 0.25 MCG CAPSULE PO SCH (09:48)
[2018-05-03] MEDS ORDERED: (PENDING PHARMACY ID) (Dolutegravir Sodium [Tivicay] 50 MG) PO SCH (10:00)
[2018-05-03] MEDS ORDERED: LAMIVUDINE PO SCH (10:00)
[2018-05-03] MEDS ORDERED: (PENDING PHARMACY ID) (Calcitriol [Rocaltrol 0.5 Mcg Capsule] 0.5 MCG) PO SCH (10:00)
--- NOTE | 2018-05-03 15:42 | PDOC CONSULTATION ---
Consultation Consult Date: 05/02/18 Attending physician:: TARIK MENDEZ Consult reason:: Chest pain History of Present Illness Admission Date/PCP: 05/02/18 08:28 ARUN MORA Patient complains of: Chest pain History of Present Illness: KRISTY CANTU is a 62 year old male, who is well-known to our service, with a past medical history of ESRD on hemodialysis MWF, CHF (LVEF 40%), DVT, IL, PE, chronically anticoagulated on Eliquis, HTN, HLD, PVD, COPD, GERD, substance abuse with cocaine use, and HIV who presented to the emergency department today with a complaint of chest tightness and shortness of breath he noted after waking this morning. He reports that he had a half session of dialysis yesterday which was discontinued early when his AV fistula began leaking and malfunctioning. He states he was told at that time to report to the emergency department for evaluation of the fistula and management of severe hypertension. Instead, the patient decided to go home and attempt his home medications ( which he is known to be frequently noncompliant with). The remainder of his evening was uneventful. This morning, he called EMS due to his chest discomfort which was relieved by 2 tabs of nitroglycerin. He does endorse recent cocaine use. Evaluation in the emergency department reveals his baseline anemia, mildly elevated creatinine and BUN compared to his baseline, normal potassium, indeterminately elevated troponins (again minimally elevated compared to his baseline), and elevated proBNP of 46,000 (at baseline), an unremarkable chest x- ray, and EKG demonstrating normal sinus with LVH, inverted T waves to lateral leads, and a prolonged QT interval which is essentially unchanged from his previous EKG in March 2018. He is referred to the hospitalist service for observational admission and chest pain rule out. This history was reviewed and confirmed with the patient. Patient did tell me that he had recently evaluated both at [facility] and subsequently at [facility]. He had a heart catheterization towards the middle of March through right radial approach during which he was told that he had no blockages. These reports are being requested. Past Medical History Cardiac Medical History: Reports: Congestive Heart Failure - EF is 40%, with moderate diastolic dysfunction, DVT, Myocardial Infarction, Hyperlipidema, Hypertension, Peripheral Vascular Disease, Pulmonary Embolism Pulmonary Medical History: Reports: Bronchitis, Chronic Obstructive Pulmonary Disease (COPD), Pneumonia Denies: Asthma EENT Medical History: Reports: None Neurological Medical History: Denies: Migraine, Seizures Endocrine Medical History: Reports: Diabetes Mellitus Type 1 - 1.5, Diabetes Mellitus Type 2 - insulin dependent Renal/ Medical History: Reports: End Stage Renal Disease - on dialysis Malignancy Medical History: Reports: None GI Medical History: Reports: Gastroesophageal Reflux Disease Musculoskeltal Medical History: Reports: Arthritis Skin Medical History: Denies: Eczema Psychiatric Medical History: Reports: Substance Abuse Denies: Depression Traumatic Medical History: Denies: Traumatic Brain Injury Hematology: Reports: Anemia Infectious Medical History: Reports: HIV Past Surgical History Past Surgical History: Reports: Orthopedic Surgery - bilateral amputation, R BKA , L AKA, Vascular Surgery - left arm clot removed, IVC filter, Other - Endoscopy ; Vascular surgery. Social History Information Source: Patient Lives with: Alone Smoking Status: Current Every Day Smoker Cigarettes Packs Per Day: 0.5 Cigars Per Day: 0 Pipes Per Day: 0 Frequency of Alcohol Use: None Hx Recreational Drug Use: Yes - last used 04/29/2018 Drugs: Cocaine Hx Prescription Drug Abuse: No - Advance Directive Resuscitation Status: Full Code Family History Family History: CAD, CVA, DM, Hyperlipidemia, Hypertension, Malignancy Parental Family History Reviewed: Yes Children Family History Reviewed: Yes Sibling(s) Family History Reviewed.: Yes Medication/Allergy Home Medications: Amlodipine Besylate [Norvasc 10 mg Tablet] 10 mg PO DAILY 05/02/18 Apixaban [Eliquis] 2.5 mg PO Q12 05/02/18 Calcitriol [Rocaltrol 0.5 mcg Capsule] 0.5 mcg PO DAILY 05/02/18 Carvedilol [Coreg 12.5 mg Tablet] 12.5 mg PO Q12 05/02/18 Clonidine [Catapres-Tts 3 (0.3 mg/24 Hr) Transderm Patch] 1 patch TD GUTIÉRREZ@1000 Dolutegravir Sodium [Tivicay] 50 mg PO DAILY 05/02/18 Furosemide [Lasix 20 mg Tablet] 20 mg PO QAM 05/02/18 Isosorbide Mononitrate [Isosorbide Mononitrate ER] 60 mg PO DAILY 05/02/18 Lamivudine [Lamivudine Hbv] 5 mg PO DAILY 05/02/18 Sodium Polystyrene Sulfonate [Kayexalate 15 gm/60 ml Susp 60 ml] 15 gm PO DAILY 05/02/18 Allergies/Adverse Reactions: No Known Allergies Allergy (Verified 05/02/18 14:44) Review of Systems Review of Systems: Please see history of present illness and past medical history as wall. Constitutional: No fever or chills reported. History of HIV, substance abuse. Head : No recent chronic headaches, recent head injury. Eyes: No recent eye pain, diplopia, redness, discharge, acute visual changes. Ears: No recent chronic ear pain, acute hearing loss, ear discharge. Oral cavity: No recent ulcerations, bleeding, oral cavity discomfort. Neck: No recent acute neck pain reported. Hematologic: No recent easy bruising or bleeding. Lymphatic: No recent lymph node enlargement reported. Cardiovascular system review: See history of present illness. Respiratory system review: No hemoptysis or blood clots in the lungs reported.Shortness of breath on exertion Gastrointestinal system review: Negative for any recent acute hematemesis, melena. Genitourinary system review: No recent acute or chronic hematuria, flank pain, UTI etc. reported. Skin system review: Negative for any recent abnormal bruising, no rash, no pruritus reported. Neurologic: No prior history of strokes, mini strokes, seizure disorder. Psychologic: No history of major psychosis or major depression reported. Musculoskeletal: Minor aches and pains reported. No acute joint swelling reported. bilateral amputation, R BKA, L AKA Endocrine: No recent polyuria, polydipsia, recent heat or cold intolerance. Physical Exam Vital Signs: Temp Pulse Resp BP Pulse Ox 98.0 F 83 14 148/78 H 99 05/02/18 19:34 05/02/18 19:34 05/02/18 19:34 05/02/18 19:34 05/02/18 19:34 Intake & Output 05/01/18 05/02/18 05/03/18 06:59 06:59 06:59 Intake Total 266 Balance 266 Weight 72.7 kg Exam: GENERAL: well-nourished and in no acute distress. Alert and oriented x3 HEAD: Atraumatic, normocephalic. EYES: Pupils equal round and reactive to light, extraocular movements intact, sclera anicteric, conjunctiva are normal. ENT: TMs normal, nares patent, oropharynx clear without exudates. Moist mucous membranes. No oral ulcerations or bleeding gums noted NECK: supple without lymphadenopathy. Trachea is central. No cervical or axillary lymphadenopathy noted. Carotids are 2+, JVD WNL LUNGS: Respiration seems nonlabored, no significant accessory muscle action noted. Breath sounds clear to auscultation bilaterally and equal noted. No wheezes rales or rhonchi noted. No significant dullness noted on percussion. CHEST: Palpation of the chest wall shows no significant chest wall tenderness. HEART: [place] [employer], No PSH, 2/6 SUJIT aortic area, 1/6 rodriguez systolic murmur mitral area , no rubs, no gallops. ABDOMEN: Soft, no significant tenderness appreciated, normoactive bowel sounds. No guarding, no rebound. No rigidity noted . No masses appreciated. EXTREMITIES: Pedal pulses are 1-2+, no calf tenderness noted. No clubbing or cyanosis. negative pedal edema noted NEUROLOGICAL: Focused neurological exam showed no significant neurologic deficit. Normal speech, no focal weakness appreciated. PSYCH: Normal mood, normal affect. Judgment and insight within normal limits. SKIN: No significant ecchymosis, skin is noted to be warm. MUSCULOSKELETAL EXAM: No significant acute joint swelling noted. Patient is status post bilateral amputation, R BKA, L AKA Results Laboratory Results: 05/02/18 05/02/18 05/02/18 09:58 09:58 14:55 CK-MB (CK-2) 1.54 Troponin I 0.064 0.053 Impressions: Chest X-Ray 05/02/18 05:20 IMPRESSION: No acute cardiopulmonary abnormality 2010 [employer]- All Rights Reserved Assessment & Plan - Diagnosis (1) Chest pain Qualifiers: Chest pain type: unspecified Qualified Code(s): R07.9 - Chest pain, unspecified Is this a current diagnosis for this admission?: Yes (2) Hypertension Qualifiers: Hypertension type: essential hypertension Qualified Code(s): I10 - Essential (primary) hypertension Is this a current diagnosis for this admission?: Yes (3) Acute on chronic combined systolic and diastolic heart failure Is this a current diagnosis for this admission?: Yes (4) ESRD on hemodialysis Is this a current diagnosis for this admission?: Yes (5) Substance abuse, continuous Is this a current diagnosis for this admission?: Yes (6) Elevated troponin Is this a current diagnosis for this admission?: Yes - Notes Notes: Patient had a recent heart catheterization at [facility]. We will try to obtain those records. Patient is having some problems at hemodialysis due to AV fistula problems. Chest pain: Exact etiology not clear but cannot rule out vasospasm. Patient has been advised to quit smoking and cocaine abuse. At this point recommend dual antiplatelet therapy for 1 month. No ischemia workup planned and until we get the reports of his previous evaluation. Recommend nitroglycerin and Norvasc. Beta-blockers currently relatively contraindicated. Hypertension: Blood pressure goal should be 140/90. Will let bench assembly inspector handle this. Acute on chronic combined systolic and diastolic heart failure: Patient would benefit from intermittent fluid removal on dialysis. Recommend DANIE inhibitor/ ARB/entresto therapy. End-stage renal disease on dialysis: Currently stable. Patient has dialysis access site problem, this is being handled by the bench assembly inspector and vascular surgeon. Substance abuse: Patient has polysubstance abuse. Patient advised to quit these abuses. Elevated troponin I: Probably not significant in the setting of end-stage renal disease CHF etc. could be related to coronary vasospasm. No ischemia workup planned at this point. May consider a 2D echocardiogram. - Time Time Spent: 30 to 50 Minutes - More than 50% of the time spent coordinating care , discussing management plans with involved caregivers. Management plans discussed with involved personnels. Medical decision making was of moderate to high complexity, patient's has multiple comorbidities.
--- NOTE | 2018-05-03 15:46 | PDOC PROGRESS REPORT ---
Subjective Progress Note for:: 05/03/18 Subjective:: Patient seems to be doing better with gradual improvement. Patient somewhat upset as he is out of HIV meds and the hospital pharmacy does not carry it. Also patient cardiac catheter report is available from [facility]. He is noted to have widely patent coronary arteries. LVEDP was noted to be elevated. This was just recently performed within the last 1 month. Pt is denying any chest arm or neck discomfort. Patient denying any PND, orthopnea. Patient denied any sustained palpitations, dizziness, syncope, near syncope. Patient denying any fever chills. Patient denying any other significant discomfort. Patient is maintaining sinus rhythm. Review of systems: Rest review of systems negative. Medications: Medications have been reviewed. Reason For Visit: CHEST PAIN,HTN,ESRD ON DIALYSIS Physical Exam Vital Signs: Temp Pulse Resp BP Pulse Ox 98.0 F 65 16 119/69 99 05/03/18 15:00 05/03/18 15:00 05/03/18 15:00 05/03/18 15:00 05/03/18 15:00 Intake & Output 05/02/18 05/03/18 05/04/18 06:59 06:59 06:59 Intake Total 532 Output Total 600 Balance -68 Weight 72.7 kg Exam: GENERAL: well-nourished and in no acute distress. Alert and oriented x3 HEAD: Atraumatic, normocephalic. EYES: Pupils equal round and reactive to light, extraocular movements intact, sclera anicteric, conjunctiva are normal. ENT: TMs normal, nares patent, oropharynx clear without exudates. Moist mucous membranes. No oral ulcerations or bleeding gums noted NECK: supple without lymphadenopathy. Trachea is central. No cervical or axillary lymphadenopathy noted. Carotids are 2+, JVD WNL LUNGS: Respiration seems nonlabored, no significant accessory muscle action noted. Breath sounds clear to auscultation bilaterally and equal noted. No wheezes rales or rhonchi noted. No significant dullness noted on percussion. CHEST: Palpation of the chest wall shows no significant chest wall tenderness. 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 ABDOMEN: Soft, no significant tenderness appreciated, normoactive bowel sounds. No guarding, no rebound. No rigidity noted . No masses appreciated. EXTREMITIES: Pedal pulses are 1-2+, no calf tenderness noted. No clubbing or cyanosis. negative pedal edema noted NEUROLOGICAL: Focused neurological exam showed no significant neurologic deficit. Normal speech, no focal weakness appreciated. PSYCH: Normal mood, normal affect. Judgment and insight within normal limits. SKIN: No significant ecchymosis, skin is noted to be warm. MUSCULOSKELETAL EXAM: No significant acute joint swelling noted. Patient is status post bilateral amputation, R BKA, L AKA Results Laboratory Results: 05/03/18 04:42 05/03/18 04:42 05/02/18 05/03/18 05/03/18 21:02 04:42 04:42 WBC 5.1 RBC 3.53 L Hgb 11.1 L Hct 32.7 L MCV 93 MCH 31.4 MCHC 33.9 RDW 15.5 H Plt Count 144 L Sodium 138.8 Potassium 4.1 Chloride 103 Carbon Dioxide 19 L Anion Gap 17 BUN 63 H Creatinine 7.43 H Est GFR ( Amer) 9 L Est GFR (Non-Af Amer) 7 L Glucose 94 Calcium 7.1 L Urine Color YELLOW Urine Appearance CLEAR Urine pH 6.0 Ur Specific [place] 1.013 Urine Protein 100 H Urine Glucose (UA) 150 H Urine Ketones NEGATIVE Urine Blood NEGATIVE Urine Nitrite NEGATIVE Ur Leukocyte Esterase SMALL H Urine WBC (Auto) 8 Urine RBC (Auto) 1 05/02/18 05/02/18 05/02/18 09:58 09:58 14:55 CK-MB (CK-2) 1.54 Troponin I 0.064 0.053 EKG Comments: Sinus rhythm, no sustained tachycardia or bradycardia arrhythmias noted. Impressions: Chest X-Ray 05/02/18 05:20 IMPRESSION: No acute cardiopulmonary abnormality 2010 [employer]- All Rights Reserved Assessment & Plan - Diagnosis (1) Chest pain Qualifiers: Chest pain type: unspecified Qualified Code(s): R07.9 - Chest pain, unspecified Is this a current diagnosis for this admission?: Yes (2) Hypertension Qualifiers: Hypertension type: essential hypertension Qualified Code(s): I10 - Essential (primary) hypertension Is this a current diagnosis for this admission?: Yes (3) Acute on chronic combined systolic and diastolic heart failure Is this a current diagnosis for this admission?: Yes (4) ESRD on hemodialysis Is this a current diagnosis for this admission?: Yes (5) Substance abuse, continuous Is this a current diagnosis for this admission?: Yes (6) Elevated troponin Is this a current diagnosis for this admission?: Yes - Notes Notes: Chest pain: [place] to be related to vasospasm in view of widely patent coronaries being noted on recent heart cath less than a month ago. Patient has been advised to quit smoking and cocaine abuse. At this point recommend dual antiplatelet therapy for 1 month. No ischemia workup planned. Recommend nitroglycerin and Norvasc. Beta-blockers currently relatively contraindicated. Hypertension: Blood pressure goal should be 140/90. Will let masticator handle this. Acute on chronic combined systolic and diastolic heart failure: Patient would benefit from intermittent fluid removal on dialysis. Recommend DANIE inhibitor/ ARB/entresto therapy. End-stage renal disease on dialysis: Currently stable. Patient has dialysis access site problem, this is being handled by the masticator and vascular surgeon. Substance abuse: Patient has polysubstance abuse. Patient advised to quit these abuses. Elevated troponin I: Probably not significant in the setting of end-stage renal disease CHF etc. could be related to coronary vasospasm. No ischemia workup planned at this point. May consider a 2D echocardiogram. - Time Time with patient: Greater than 35 minutes - Cardiac cath results were reviewed with the patient. More than 50% of the time spent coordinating care, discussing management plans with involved caregivers. Management plans discussed with involved personnels. Medical decision making was of moderate to high complexity, patient's has multiple comorbidities. Medications reviewed and adjusted accordingly: Yes
--- NOTE | 2018-05-03 16:50 | PDOC PROGRESS REPORT ---
Subjective Progress Note for:: 05/03/18 Subjective:: The patient is a 62 year old male, who is well-known to our service, with a past medical history of ESRD on hemodialysis MWF, CHF (LVEF 40%), DVT, GA, PE, chronically anticoagulated on Eliquis, HTN, HLD, PVD, COPD, GERD, substance abuse with continuous use, and HIV who was admitted 05/02/18 for chest pain and severe hypertension. The patient was seen on afternoon rounds. He was found resting in bed comfortably on room air. He reports a slight nonproductive cough but denies dyspnea, orthopnea. He also complains of constipation, although he did have a bowel movement today. He reports that he has a sensation of generalized abdominal fullness without discomfort, but denies nausea, vomiting, diarrhea. He further denies headache, dizziness, chest pain, and palpitations. Overall, he reports that he is feeling much better than he did yesterday. He has had no new questions or concerns. No concerns per nursing. Reason For Visit: CHEST PAIN,HTN,ESRD ON DIALYSIS Physical Exam Vital Signs: Temp Pulse Resp BP Pulse Ox 98.0 F 65 16 119/69 99 05/03/18 15:00 05/03/18 15:00 05/03/18 15:00 05/03/18 15:00 05/03/18 15:00 Intake & Output 05/02/18 05/03/18 05/04/18 06:59 06:59 06:59 Intake Total 532 Output Total 600 Balance -68 Weight 72.7 kg General appearance: PRESENT: no acute distress, obese, well-developed, well- nourished Head exam: PRESENT: atraumatic, normocephalic Eye exam: PRESENT: conjunctiva pink, EOMI, PERRLA. ABSENT: scleral icterus Ear exam: PRESENT: normal external ear exam Mouth exam: PRESENT: moist, tongue midline Neck exam: ABSENT: carotid bruit, JVD, lymphadenopathy, thyromegaly Respiratory exam: PRESENT: clear to auscultation ramila, symmetrical, unlabored, other - Room air. ABSENT: rales, rhonchi, wheezes Cardiovascular exam: PRESENT: RRR, +S1, +S2. ABSENT: diastolic murmur, rubs, systolic murmur Pulses: PRESENT: normal dorsalis pedis pul Vascular exam: PRESENT: normal capillary refill GI/Abdominal exam: PRESENT: normal bowel sounds, soft. ABSENT: distended, guarding, mass, organolmegaly, rebound, tenderness Rectal exam: PRESENT: deferred Extremities exam: PRESENT: other - Bilateral leg amputee. ABSENT: calf tenderness, clubbing, pedal edema Neurological exam: PRESENT: alert, awake, oriented to person, oriented to place , oriented to time, oriented to situation, CN II-XII grossly intact. ABSENT: motor sensory deficit Psychiatric exam: PRESENT: appropriate affect, normal mood. ABSENT: homicidal ideation, suicidal ideation Skin exam: PRESENT: dry, intact, warm. ABSENT: cyanosis, rash Results Laboratory Results: 05/03/18 04:42 05/03/18 04:42 05/02/18 05/03/18 05/03/18 21:02 04:42 04:42 WBC 5.1 RBC 3.53 L Hgb 11.1 L Hct 32.7 L MCV 93 MCH 31.4 MCHC 33.9 RDW 15.5 H Plt Count 144 L Sodium 138.8 Potassium 4.1 Chloride 103 Carbon Dioxide 19 L Anion Gap 17 BUN 63 H Creatinine 7.43 H Est GFR ( Amer) 9 L Est GFR (Non-Af Amer) 7 L Glucose 94 Calcium 7.1 L Urine Color YELLOW Urine Appearance CLEAR Urine pH 6.0 Ur Specific [place] 1.013 Urine Protein 100 H Urine Glucose (UA) 150 H Urine Ketones NEGATIVE Urine Blood NEGATIVE Urine Nitrite NEGATIVE Ur Leukocyte Esterase SMALL H Urine WBC (Auto) 8 Urine RBC (Auto) 1 05/02/18 05/02/18 05/02/18 09:58 09:58 14:55 CK-MB (CK-2) 1.54 Troponin I 0.064 0.053 Impressions: Chest X-Ray 05/02/18 05:20 IMPRESSION: No acute cardiopulmonary abnormality 2010 [employer]- All Rights Reserved Assessment & Plan - Diagnosis (1) Chest pain Qualifiers: Chest pain type: unspecified Qualified Code(s): R07.9 - Chest pain, unspecified Is this a current diagnosis for this admission?: Yes Plan: Resolved; discomfort was likely multifactorial secondary to severe HTN (BP 160/ 100 at time of arrival), CHF and COPD resulting in increased work of breathing in patient with continuous tobacco use, and possible vasospasm r/t recent cocaine use. EKG is unchanged from his previous study in March 2018. Initial troponin was indeterminately elevated, but near his baseline given his end-stage renal disease. Trended down x3 and no longer following. CKMB nml. ProBNP is elevated to >40k; at baseline. CXR unremarkable. The patient is admitted on continuous telemetry. We will continue his home dose of Eliquis 2.5 mg twice daily. Daily aspirin and atorvastatin therapy. Dual antiplatelet therapy recommended by cardiology; have started Plavix. Cardiac diet. Aggressive blood pressure control. Cardiology was consulted; appreciate their evaluation recommendations. At this time, they have no further plans for cardiac workup. (2) Hypertension Qualifiers: Hypertension type: essential hypertension Qualified Code(s): I10 - Essential (primary) hypertension Is this a current diagnosis for this admission?: Yes Plan: Significantly improved; blood pressures now 119/69. He is placed on a cardiac and renal diet. Continue amlodipine 10 mg daily. Increase carvedilol to 25 mg twice daily. Clonidine 0.3 mg every 8 hours. Lisinopril 5 mg daily. Nitroglycerin 0.1 mg/h transdermal patch. Daily weights and strict I&Os. (3) Elevated troponin Is this a current diagnosis for this admission?: Yes Plan: Likely related to partial dialysis session yesterday. On arrival the patient was found to have an indeterminably elevated troponin; 0.085--> 0.064--> 0.053. Baseline of 0.06 Plan as above. (4) Anemia of chronic disease Is this a current diagnosis for this admission?: Yes Plan: Hgb 12.6 on arrival; baseline 11.0 No evidence of active bleeding. The registered mail clerk is consulted. Nephrology is consulted. Will continue to monitor. (5) ESRD on hemodialysis Is this a current diagnosis for this admission?: Yes Plan: Dialysis patient on Fri, Fri, Fri. Sees Dr. Lowe. The patient reports a partial dialysis session Friday due to fistula malfunction. AV fistula site to Lt forearm has a very slight palpable thrill distally. Will obtain a Duplex of the fistula; exam has been completed, report is not yet available. Nephrology is consulted. Continue outpatient meds: Eliquis, Calcitrol, Kayexalate. Renal and Cardiac diet. Daily weights, strict I&Os. (6) GERD (gastroesophageal reflux disease) Qualifiers: Esophagitis presence: esophagitis presence not specified Qualified Code(s) : K21.9 - Gastro-esophageal reflux disease without esophagitis Is this a current diagnosis for this admission?: Yes Plan: Pepcid twice daily. (7) HIV (human immunodeficiency virus infection) Is this a current diagnosis for this admission?: Yes Plan: Continue his home medications. The patient reports that he ran out of his medications on Friday; he is instructed to contact his pharmacy to request refills and have a friend or family member bring them to him. (8) Tobacco abuse Is this a current diagnosis for this admission?: Yes Plan: Tobacco cessation encouraged; nicotine replacement therapy is provided. (9) Substance abuse, continuous Is this a current diagnosis for this admission?: Yes Plan: Pt endorses recent cocaine use. He acknowledges that this has been the cause of previous MIs and is likely complicating his current cardiac health; "I know is bad for me, I just got angry and turned to it." Declines mental health consultation. Discharge planning is consulted. (10) Full code status Is this a current diagnosis for this admission?: Yes - Time Time Spent with patient: 15-24 minutes Medications reviewed and adjusted accordingly: Yes Anticipated discharge: Home Within: within 24 hours - Once cleared by Dr. Lowe; may require dialysis prior to discharge.
[2018-05-03] MEDS: ATORVASTATIN CALCIUM 80 MG TABLET PO SCH (21:34)
[2018-05-04 04:57] LABS: HEMATOCRIT 32.9 % (37.9-51.0); HEMOGLOBIN 11.2 g/dL (13.5-17.0); MEAN CORPUSCULAR HEMOGLOBIN 31.4 pg (27.0-33.4); MEAN CORPUSCULAR HGB CONC 33.9 g/dL (32.0-36.0); MEAN CORPUSCULAR VOLUME 93 fl (80-97); PLATELET COUNT 151 10^3/uL (150-450); RED BLOOD COUNT 3.56 10^6/uL (4.35-5.55); RED CELL DISTRIBUTION WIDTH 15.1 % (11.5-14.0); WHITE BLOOD COUNT 5.4 10^3/uL (4.0-10.5)
[2018-05-04 05:25] LABS: ANION GAP 16 (5-19); BLOOD UREA NITROGEN 74 mg/dL (7-20); CALCIUM 7.5 mg/dL (8.4-10.2); CARBON DIOXIDE 18 mmol/L (22-30); CHLORIDE 104 mmol/L (98-107); GLUCOSE 101 mg/dL (75-110); POTASSIUM 4.2 mmol/L (3.6-5.0); SODIUM 137.6 mmol/L (137-145)
--- NOTE | 2018-05-04 08:45 | XCELERA REPORT ---
[address] [address] Upper Extremity Venous Evaluation Name: KRISTY CANTU Age: 62 yrs Gender: Male : 1955 Patient Status: Inpatient Patient Location: [address] [place] [address] Study Date: 05/03/2018 02:15 PM Procedure: Unilateral duplex scan of the left upper extremity veins was performed, including responses to compression and other maneuvers. Reason For Study: Fistula malfunction during dialysis, no thrill Ordering Physician: HEATHER MOISE Performed By: Faye Villa Left Sided Venous Evaluation Slurred waveform, consistent with open AV fistula noted in the Radial artery. Fistula itself not completely evaluated. Normal vessel filling wall to wall, compression and augmentation as well as Colour flow down to the forearm veins. Interpretation Summary No duplex evidence of DVT or obstruction in the left upper extremity. AV fistula functioning, degree of function not evaluated. : HEATHER MOISE > Eusebio Sutton
[2018-05-04] MEDS ORDERED: CLOPIDOGREL BISULFATE 75 MG TABLET PO SCH (10:00)
[2018-05-04] MEDS: CALCITRIOL 0.25 MCG CAPSULE PO SCH ×2 (10:05→10:39)
[2018-05-04] MEDS: FAMOTIDINE 20 MG TABLET PO SCH (10:06)
[2018-05-04] MEDS: FUROSEMIDE 20 MG TABLET PO SCH (10:06)
[2018-05-04] MEDS ORDERED: ALBUTEROL SULFATE HFA (90 MCG/PUFF) 200 PUFF/8.5 GM MDI IH PRN (10:53)
[2018-05-04] MEDS ORDERED: ALBUTEROL SULFATE 0.083% NEB 2.5 MG/3 ML AMPUL NEB SCH (11:00)
[2018-05-04] MEDS ORDERED: ONDANSETRON HCL INJ/PF 4 MG/2 ML SDV IV PRN (11:30)
[2018-05-04] MEDS ORDERED: ACETAMINOPHEN 325 MG TABLET PO PRN (12:00)
[2018-05-04 12:11] VITALS: BP 119/69
[2018-05-04] MEDS: NICOTINE 7 MG/24 HR PATCH.TD24 TD SCH (12:21)
[2018-05-04] MEDS: APIXABAN 2.5 MG TABLET PO SCH (12:24)
[2018-05-04] MEDS: AMLODIPINE BESYLATE 10 MG TABLET PO SCH (12:24)
[2018-05-04] MEDS: CARVEDILOL 12.5 MG TABLET PO SCH (12:24)
[2018-05-04] MEDS: CLONIDINE HCL 0.2 MG TABLET PO SCH ×2 (12:24→13:10)
[2018-05-04] MEDS: NITROGLYCERIN 2.5 MG (0.1 MG/HR) PATCH.TD24 TD SCH (12:25)
[2018-05-04] MEDS: LISINOPRIL 5 MG TABLET PO SCH (12:26)
--- NOTE | 2018-05-04 12:52 | XCELERA REPORT ---
[address] [address] Transthoracic Echocardiogram Report Name: KRISTY CANTU Age: 62 yrs Gender: Male : 1955 Patient Status: Inpatient Patient Location: [address] [place] [address] Study Date: 05/04/2018 09:36 AM Procedure: A complete two-dimensional transthoracic echocardiogram was performed (2D, M-mode, spectral and color flow Doppler). The study was technically adequate with some images being suboptimal in quality. Reason For Study: CHF, elevated troponin I Ordering Physician: BEULAH HERNANDEZ Performed By: Jany Cuevas Interpretation Summary The left ventricular ejection fraction is normal. There is mild concentric left ventricular hypertrophy. The left ventricle is grossly normal size. Doppler measurements suggest pseudonormalized left ventricular relaxation, which is associated with grade II/IV or mild to moderate diastolic dysfunction Wall motion cannot be accurately commented on, but no definite regional wall motion abnormalities noted. The right ventricular systolic function is normal. Borderline left atrial enlargement. The right atrium is normal in size There is a trace to mild amount of mitral regurgitation There is no mitral valve stenosis. There is a trace amount of aortic regurgitation There is no aortic valve stenosis There is a trace amount of tricuspid regurgitation Tricuspid regurgitation jet envelope not well defined to measure RV systolic pressure accurately. The aortic root is not well visualized but is probably normal size. The inferior vena cava appeared normal and decreased > 50% with respiration (RAP 5-10 mmHg) There is no pericardial effusion. MMode/2D Measurements & Calculations RVDd: 3.4 cm LVIDd: 6.1 cm FS: 32.3 % Ao root diam: 3.8 cm IVSd: 0.93 cm LVIDs: 4.1 cm EDV(Teich): 187.2 ml Ao root area: 11.1 cm2 LVPWd: 1.2 cm ESV(Teich): 75.6 ml EF(Teich): 59.6 % Doppler Measurements & Calculations MV E max kalyn: MV dec slope: Ao V2 max: LV V1 max P.5 cm/sec 132.7 cm/sec 4.8 mmHg MV A max kalyn: 511.7 cm/sec2 Ao max PG: LV V1 max: 79.4 cm/sec MV dec time: 0.15 sec7.0 mmHg 110.1 cm/sec MV E/A: 0.96 PA V2 max: TR max kalyn: 101.3 cm/sec 257.3 cm/sec PA max P.1 mmHg TR max P.5 mmHg Left Ventricle The left ventricle is grossly normal size. There is mild concentric left ventricular hypertrophy. The left ventricular ejection fraction is normal. Doppler measurements suggest pseudonormalized left ventricular relaxation, which is associated with grade II/IV or mild to moderate diastolic dysfunction. Wall motion cannot be accurately commented on, but no definite regional wall motion abnormalities noted. Right Ventricle The right ventricle is grossly normal size. There is normal right ventricular wall thickness. The right ventricular systolic function is normal. Atria The right atrium is normal in size. Borderline left atrial enlargement. Interarterial septum not well visualized and not well dopplered. Cannot comment on ASD/PFO presence. Mitral Valve The mitral valve is grossly normal. There is no mitral valve stenosis. There is a trace to mild amount of mitral regurgitation. Aortic Valve The aortic valve is not well visualized secondary to technical limitations. There is no aortic valve stenosis. There is a trace amount of aortic regurgitation. Tricuspid Valve The tricuspid valve is not well visualized, but is grossly normal. There is no tricuspid stenosis. There is a trace amount of tricuspid regurgitation. Tricuspid regurgitation jet envelope not well defined to measure RV systolic pressure accurately. Pulmonic Valve The pulmonic valve is not well visualized. Great Vessels The aortic root is not well visualized but is probably normal size. The inferior vena cava appeared normal and decreased > 50% with respiration (RAP 5-10 mmHg). Effusions There is no pericardial effusion. : BEULAH HERNANDEZ > Beulah Hernandez
[2018-05-04] MEDS ORDERED: (PENDING PHARMACY ID) (Beclomethasone Dipropionate [Qvar] 1 PUFF) IH SCH (18:00)
--- NOTE | 2018-05-04 18:21 | PDOC PROGRESS REPORT ---
Subjective Progress Note for:: 05/04/18 Subjective:: Patient seems to be doing better with gradual improvement. Patient denied any chest arm or neck discomfort. He claims to be doing reasonably well. Also patient cardiac catheter report is available from [facility]. He is noted to have widely patent coronary arteries. LVEDP was noted to be elevated. This was just recently performed within the last 1 month. Pt is denying any chest arm or neck discomfort. Patient denying any PND, orthopnea. Patient denied any sustained palpitations, dizziness, syncope, near syncope. Patient denying any fever chills. Patient denying any other significant discomfort. Patient is maintaining sinus rhythm. 2D echocardiogram reviewed showed actually normal LVEF. This is surprising since patient has history of LV systolic dysfunction as well as diastolic dysfunction. Review of systems: Rest review of systems negative. Medications: Medications have been reviewed. Reason For Visit: CHEST PAIN,HTN,ESRD ON DIALYSIS Physical Exam Vital Signs: Temp Pulse Resp BP Pulse Ox 97.7 F 73 12 119/69 96 05/04/18 11:47 05/04/18 11:47 05/04/18 11:47 05/04/18 11:47 05/04/18 11:47 Intake & Output 05/03/18 05/04/18 05/05/18 06:59 06:59 06:59 Intake Total 532 1381 Output Total 600 1000 Balance -68 381 Weight 72.7 kg 71.9 kg Exam: GENERAL: well-nourished and in no acute distress. Alert and oriented x3 HEAD: Atraumatic, normocephalic. EYES: Pupils equal round and reactive to light, extraocular movements intact, sclera anicteric, conjunctiva are normal. ENT: TMs normal, nares patent, oropharynx clear without exudates. Moist mucous membranes. No oral ulcerations or bleeding gums noted NECK: supple without lymphadenopathy. Trachea is central. No cervical or axillary lymphadenopathy noted. Carotids are 2+, JVD WNL LUNGS: Respiration seems nonlabored, no significant accessory muscle action noted. Breath sounds clear to auscultation bilaterally and equal noted. No wheezes rales or rhonchi noted. No significant dullness noted on percussion. CHEST: Palpation of the chest wall shows no significant chest wall tenderness. HEART: [place] [employer], No PSH, 1/6 SUJIT aortic area, 1/6 rodriguez systolic murmur mitral area, no rubs, no gallops. ABDOMEN: Soft, no significant tenderness appreciated, normoactive bowel sounds. No guarding, no rebound. No rigidity noted . No masses appreciated. EXTREMITIES: Pedal pulses are 1-2+, no calf tenderness noted. No clubbing or cyanosis. negative pedal edema noted NEUROLOGICAL: Focused neurological exam showed no significant neurologic deficit. Normal speech, no focal weakness appreciated. PSYCH: Normal mood, normal affect. Judgment and insight within normal limits. SKIN: No significant ecchymosis, skin is noted to be warm. MUSCULOSKELETAL EXAM: No significant acute joint swelling noted. 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 Results Laboratory Results: 05/04/18 04:09 05/04/18 04:09 05/04/18 05/04/18 04:09 04:09 WBC 5.4 RBC 3.56 L Hgb 11.2 L Hct 32.9 L MCV 93 MCH 31.4 MCHC 33.9 RDW 15.1 H Plt Count 151 Sodium 137.6 Potassium 4.2 Chloride 104 Carbon Dioxide 18 L Anion Gap 16 BUN 74 H Creatinine 8.04 H Est GFR ( Amer) 8 L Est GFR (Non-Af Amer) 7 L Glucose 101 Calcium 7.5 L 05/02/18 05/02/18 05/02/18 09:58 09:58 14:55 CK-MB (CK-2) 1.54 Troponin I 0.064 0.053 EKG Comments: Telemetry shows sinus rhythm, no sustained tachycardia or bradycardia noted. Impressions: Chest X-Ray 05/02/18 05:20 IMPRESSION: No acute cardiopulmonary abnormality 2010 [employer]- All Rights Reserved Assessment & Plan - Diagnosis (1) Chest pain Qualifiers: Chest pain type: unspecified Qualified Code(s): R07.9 - Chest pain, unspecified Is this a current diagnosis for this admission?: Yes (2) Hypertension Qualifiers: Hypertension type: essential hypertension Qualified Code(s): I10 - Essential (primary) hypertension Is this a current diagnosis for this admission?: Yes (3) Acute on chronic combined systolic and diastolic heart failure Is this a current diagnosis for this admission?: Yes (4) ESRD on hemodialysis Is this a current diagnosis for this admission?: Yes (5) Substance abuse, continuous Is this a current diagnosis for this admission?: Yes (6) Elevated troponin Is this a current diagnosis for this admission?: Yes - Notes Notes: Chest pain: [place] to be related to vasospasm in view of widely patent coronaries being noted on recent heart cath less than a month ago. Patient has been advised to quit smoking and cocaine abuse. At this point recommend dual antiplatelet therapy for 1 month. No ischemia workup planned. Recommend nitroglycerin and Norvasc. Hypertension: Blood pressure goal should be 140/90. Will let regional refrigerated cdl truck driver handle this. Diastolic heart failure: Patient would benefit from intermittent fluid removal on dialysis. 2D echo actually shows significant improvement in his LVEF. This was surprising. End-stage renal disease on dialysis: Currently stable. Patient has dialysis access site problem, this is being handled by the regional refrigerated cdl truck driver and vascular surgeon. Substance abuse: Patient has polysubstance abuse. Patient advised to quit these abuses. Elevated troponin I: Probably not significant in the setting of end-stage renal disease CHF etc. could be related to coronary vasospasm. No ischemia workup planned at this point. 2D echocardiogram obtained showed normal LVEF, no definite wall motion normalities noted. 2D echo report was reviewed with the patient. Patient has been encouraged to quit tobacco, alcohol and illicit drug abuse. - Time Time with patient: Greater than 35 minutes - CODE STATUS was discussed, patient remains full code. More than 50% of the time spent coordinating care, discussing management plans with involved caregivers. Management plans discussed with involved personnels. Medical decision making was of moderate to high complexity, patient's has multiple comorbidities. Medications reviewed and adjusted accordingly: Yes
[2018-05-05] MEDS ORDERED: FAMOTIDINE 20 MG TABLET PO SCH (10:00)
[2018-05-05] MEDS ORDERED: ASPIRIN 81 MG TABLET, ENT COATED PO SCH (10:00)
--- NOTE | 2018-05-05 17:10 | PDOC DISCHARGE SUMMARY ---
General - Admit/Disc Date/PCP Admission Date/Primary Care Provider: 05/02/18 08:28 MATHIEU MACIAS ARUN Discharge Date: 05/04/18 - Discharge Diagnosis (1) Chest pain Is this a current diagnosis for this admission?: Yes Summary: Resolved; discomfort was likely multifactorial secondary to severe HTN (BP 160/ 100 at time of arrival), CHF and COPD resulting in increased work of breathing in patient with continuous tobacco use, and possible vasospasm r/t recent cocaine use. EKG is unchanged from his previous study in March 2018. Initial troponin was indeterminately elevated, but near his baseline given his end-stage renal disease. Trended down x3 and no longer following. CKMB nml. ProBNP is elevated to >40k; at baseline. CXR unremarkable. The patient was admitted on continuous telemetry. His home antihypertensives, aspirin, statin, and Eliquis were continued. Cardiology was consulted and recommended dual antiplatelet therapy; he was placed on Plavix. No further plans for cardiac workup. At time of discharge, the patient was in stable condition and had been chest- pain free for >24 hours. (2) Hypertension Is this a current diagnosis for this admission?: Yes Summary: Normotensive with resumption of his home medication regiment. (3) Elevated troponin Is this a current diagnosis for this admission?: Yes Summary: Likely related to partial dialysis session on Friday. On arrival the patient was found to have an indeterminably elevated troponin; 0.085--> 0.064--> 0.053. Baseline of 0.06 (4) Anemia of chronic disease Is this a current diagnosis for this admission?: Yes Summary: Hgb 12.6 on arrival has trended down to 11.2. Baseline 11.0 No evidence of active bleeding. (5) ESRD on hemodialysis Is this a current diagnosis for this admission?: Yes Summary: Dialysis patient on Fri, Fri, Fri. Sees Dr. Lowe. The patient reports a partial dialysis session Friday due to fistula malfunction. AV fistula site to Lt forearm has a very slight palpable thrill distally. Duplex ultrasound of the fistula is normal. Arrangements were made for the patient to have a dialysis session Friday. The patients nephrology PA, Mr. Doe Maged was notified of the admission, evaluation, and plan. (6) GERD (gastroesophageal reflux disease) Is this a current diagnosis for this admission?: Yes (7) HIV (human immunodeficiency virus infection) Is this a current diagnosis for this admission?: Yes Summary: The patient is instructed to follow up with the HIV clinic as scheduled. (8) Tobacco abuse Is this a current diagnosis for this admission?: Yes Summary: The patient reports that he recently resumed cigarettes; he was strongly encouraged to stop smoking and was provided a prescription for Nicoderm patches at discharge. (9) Substance abuse, continuous Is this a current diagnosis for this admission?: Yes Summary: Pt endorses recent cocaine use. He acknowledges that this has been the cause of previous MIs and is likely complicating his current cardiac health; "I know is bad for me, I just got angry and turned to it." UDS positive for cocaine only. Declines mental health consultation or outpatient substance abuse referral. (10) Full code status Is this a current diagnosis for this admission?: Yes - Additional Information Resuscitation Status: Full Code Discharge Diet: Cardiac, Other (Comments) Discharge Activity: Activity As Tolerated, Balance Activity w/Rest, Weigh Daily Prescriptions: Lisinopril [Prinivil 5 mg Tablet] 5 mg PO DAILY #30 tablet Nicotine [Nicoderm 7 mg/24 Hr Transdermal Patch] 1 each TD DAILY #14 patch.td24 Home Medications: Amlodipine Besylate [Norvasc 10 mg Tablet] 10 mg PO DAILY 05/02/18 Apixaban [Eliquis] 2.5 mg PO Q12 05/02/18 Calcitriol [Rocaltrol 0.5 mcg Capsule] 0.5 mcg PO DAILY 05/02/18 Carvedilol [Coreg 12.5 mg Tablet] 12.5 mg PO Q12 05/02/18 Clonidine [Catapres-Tts 3 (0.3 mg/24 Hr) Transderm Patch] 1 patch TD GUTIÉRREZ@1000 Dolutegravir Sodium [Tivicay] 50 mg PO DAILY 05/02/18 Furosemide [Lasix 20 mg Tablet] 20 mg PO QAM 05/02/18 Isosorbide Mononitrate [Isosorbide Mononitrate ER] 60 mg PO DAILY 05/02/18 Lamivudine [Lamivudine Hbv] 5 mg PO DAILY 05/02/18 Sodium Polystyrene Sulfonate [Kayexalate 15 gm/60 ml Susp 60 ml] 15 gm PO DAILY 05/02/18 Acetaminophen [Tylenol 325 mg Tablet] 650 mg PO Q6HP PRN tablet 05/04/18 Albuterol Sulfate [Proair HFA Inhalation Aerosol 8.5 gm MDI] 2 puff IH Q6HP PRN 05/04/18 Amlodipine Besylate [Norvasc 10 mg Tablet] 10 mg PO DAILY tablet 05/04/18 Apixaban [Eliquis 2.5 mg Tablet] 2.5 mg PO Q12 tablet 05/04/18 Aspirin [Ecotrin 81 mg EC Tablet] 81 mg PO DAILY tabec 05/04/18 Beclomethasone Dipropionate [Qvar] 1 puff IH BID 05/04/18 Carvedilol [Coreg 12.5 mg Tablet] 25 mg PO Q12 tablet 05/04/18 Furosemide [Lasix 20 mg Tablet] 20 mg PO QAM tablet 05/04/18 Lisinopril [Prinivil 5 mg Tablet] 5 mg PO DAILY #30 tablet 05/04/18 Nicotine [Nicoderm 7 mg/24 Hr Transdermal Patch] 1 each TD DAILY #14 patch.td24 05/04/18 History of Present Illness History of Present Illness: KRISTY CANTU is a 62 year old male, who is well-known to our service, with a past medical history of ESRD on hemodialysis MWF, CHF (LVEF 40%), DVT, VT, PE, chronically anticoagulated on Eliquis, HTN, HLD, PVD, COPD, GERD, substance abuse with continuous use, and HIV who presented to the emergency department today with a complaint of chest tightness and shortness of breath he noted after waking this morning. He reports that he had a half session of dialysis yesterday which was discontinued early when his AV fistula began leaking and malfunctioning. He states he was told at that time to report to the emergency department for evaluation of the fistula and management of severe hypertension. Instead, the patient decided to go home and attempt his home medications ( which he is known to be frequently noncompliant with). The remainder of his evening was uneventful. This morning, he called EMS due to his chest discomfort which was relieved by 2 tabs of nitroglycerin. He does endorse recent cocaine use. Evaluation in the emergency department reveals his baseline anemia, mildly elevated creatinine and BUN compared to his baseline, normal potassium, indeterminately elevated troponins (again minimally elevated compared to his baseline), and elevated proBNP of 46,000 (at baseline), an unremarkable chest x- ray, and EKG demonstrating normal sinus with LVH, inverted T waves to lateral leads, and a prolonged QT interval which is essentially unchanged from his previous EKG in March 2018. He is referred to the hospitalist service for observational admission and chest pain rule out. Physical Exam Vital Signs: Temp Pulse Resp BP Pulse Ox 97.7 F 73 12 119/69 96 05/04/18 11:47 05/04/18 11:47 05/04/18 11:47 05/04/18 11:47 05/04/18 11:47 Intake & Output 05/04/18 05/05/18 05/06/18 06:59 06:59 06:59 Intake Total 1381 Output Total 1000 Balance 381 Weight 71.9 kg General appearance: PRESENT: no acute distress, well-developed, well-nourished Head exam: PRESENT: atraumatic, normocephalic Eye exam: PRESENT: conjunctiva pink, EOMI, PERRLA. ABSENT: scleral icterus Ear exam: PRESENT: normal external ear exam Mouth exam: PRESENT: moist, tongue midline Neck exam: ABSENT: carotid bruit, JVD, lymphadenopathy, thyromegaly Respiratory exam: PRESENT: clear to auscultation ramila. ABSENT: rales, rhonchi, wheezes Cardiovascular exam: PRESENT: RRR. ABSENT: diastolic murmur, rubs, systolic murmur Pulses: PRESENT: normal dorsalis pedis pul Vascular exam: PRESENT: normal capillary refill GI/Abdominal exam: PRESENT: normal bowel sounds, soft. ABSENT: distended, guarding, mass, organolmegaly, rebound, tenderness Rectal exam: PRESENT: deferred Extremities exam: PRESENT: full ROM, other - bilateral amputee. ABSENT: calf tenderness, clubbing, pedal edema Neurological exam: PRESENT: alert, awake, oriented to person, oriented to place , oriented to time, oriented to situation, CN II-XII grossly intact. ABSENT: motor sensory deficit Psychiatric exam: PRESENT: appropriate affect, normal mood. ABSENT: homicidal ideation, suicidal ideation Skin exam: PRESENT: dry, intact, warm. ABSENT: cyanosis, rash Results Laboratory Results: 05/04/18 04:09 05/04/18 04:09 10/05/02/18 05/02/18 09:58 09:58 14:55 CK-MB (CK-2) 1.54 Troponin I 0.064 0.053 Impressions: Chest X-Ray 05/02/18 05:20 IMPRESSION: No acute cardiopulmonary abnormality 2010 [employer]- All Rights Reserved Qualifiers - * PATIENT BEING DISCHARGED WITH ANY OF THE FOLLOWING DIAGNOSIS: Heart Failure HF Pt being discharged on ACEI for LVEF less than 40%?: Yes HF Pt being discharged on ARBS for LVEF less than 40%?: No Reason(s) for not prescribing ARBS:: Not indicated - Patient on DANIE. HF Pt with Afib discharged with Warfarin?: No Reason(s) for not prescribing Warfarin:: Not indicated - Does not have afib. HF Pt discharged on evidence-based Beta Johanna:: Yes Plan Discharge Plan: Patient is discharged to home. Arrangements have been made for the patient to have dialysis tomorrow, Friday, as he had only a partial dialysis on Friday and will have transportation difficulty to/from dialysis following discharge today. He is to follow up with his primary care provider within 1 week. Follow up with nephrology and cardiology as previously scheduled. Time Spent: Less than 30 Minutes
== END 2018-05-04 13:46 | disposition home or self-care (01) ==
LOC: ER 05:09 → EH 08:28 → 4S 11:01
PROVIDERS: ADMIT Internal Medicine; ATTEND Internal Medicine
DX: R07.89 Other chest pain (principal); J44.9 Chronic obstructive pulmonary disease, unspecified; I13.2 Hypertensive heart and chronic kidney disease with heart failure and with stage 5 chronic kidney disease, or end stage renal disease; N18.6 End stage renal disease; I50.43 Acute on chronic combined systolic (congestive) and diastolic (congestive) heart failure; E11.22 Type 2 diabetes mellitus with diabetic chronic kidney disease; I50.9 Heart failure, unspecified; D63.8 Anemia in other chronic diseases classified elsewhere; R79.89 Other specified abnormal findings of blood chemistry; K21.9 Gastro-esophageal reflux disease without esophagitis; B20 Human immunodeficiency virus [HIV] disease; F14.10 Cocaine abuse, uncomplicated; I73.9 Peripheral vascular disease, unspecified; F17.210 Nicotine dependence, cigarettes, uncomplicated; R51 Headache; F19.10 Other psychoactive substance abuse, uncomplicated; K59.00 Constipation, unspecified; E66.9 Obesity, unspecified; Z68.41 Body mass index [BMI] 40.0-44.9, adult; I25.2 Old myocardial infarction; Z99.2 Dependence on renal dialysis; Z79.899 Other long term (current) drug therapy; Z79.82 Long term (current) use of aspirin; Z86.718 Personal history of other venous thrombosis and embolism; Z79.02 Long term (current) use of antithrombotics/antiplatelets; Z86.711 Personal history of pulmonary embolism; Z89.511 Acquired absence of right leg below knee; Z89.612 Acquired absence of left leg above knee; Z82.49 Family history of ischemic heart disease and other diseases of the circulatory system; Z79.4 Long term (current) use of insulin; Z23 Encounter for immunization
CPT/HCPCS: 93005; 99285; 36415 ×3; 82553; 82550; 85025; 85027 ×2; 80048 ×2; 80053; 81001; 84484; 80307; 83880; 93971 ×2; 93306; 71045; 90686; 93010; 94640; G0378 ×4; G0008; J3490 ×19; 90471

== ENCOUNTER 2018-05-14 06:02 | Emergency (ER) | payer MEDICAID ==
--- NOTE | 2018-05-14 06:26 | ER Document Report ---
ED General - General Mode of Arrival: Ambulatory Information source: Patient TRAVEL OUTSIDE OF THE [place] IN LAST 30 DAYS: No <DANIEL HERNANDEZ - Last Filed: 05/14/18 06:36> <JORGE DAY - Last Filed: 05/14/18 10:26> - General Chief Complaint: Headache Stated Complaint: BLOOD PRESSURE PROBLEMS Time Seen by Provider: 05/14/18 06:06 Notes: 62-year-old male who presents to the emergency department today with complaints of a chest burning sensation upon awakening with elevated blood pressures. Patient states today his blood pressure was 208/150 when he woke up. Patient states he normally takes his blood pressure medicine at about 0630 or 0700 in the morning. Patient adds that he had not taken his medicine yet this morning when he took his blood pressure. Patient states his blood pressures usually run 170s-180s systolic. Patient states he missed dialysis yesterday because of diarrhea. Patient does make urine, stating he urinates x1-3 times a day usually. Patient states he feels like he has to take short breaths because when he takes deep breaths he coughs. Patient states the burning has somewhat subsided but he now has a tightness. Patient was asked if he was continuing to wear his Catapres patches as prescribed and states he is not. Patient states the last time he went to pick them up from the pharmacy he was told the insurance company would no longer cover them. Patient neglected to tell his doctor this. The patient is not sure how long it has been since he has been out of them but it has been at least since the last time he was discharged from this facility on 05/02. (DANIEL HERNANDEZ) - Related Data Allergies/Adverse Reactions: calcitriol Allergy (Verified 05/04/18 10:50) itching Past Medical History - General Information source: Patient, [facility] Records - Social History Smoking Status: Current Every Day Smoker Cigarette use (# per day): Yes Frequency of alcohol use: Social Drug Abuse: Cocaine Family History: Reviewed & Not Pertinent, CAD, CVA, DM, Hyperlipidemia, Hypertension, Malignancy - Past Medical History Cardiac Medical History: Reports: Hx Congestive Heart Failure - EF is 40%, with moderate diastolic dysfunction, Hx DVT, Hx Heart Attack, Hx Hypercholesterolemia , Hx Hypertension, Hx Peripheral Vascular Disease, Hx Pulmonary Embolism Pulmonary Medical History: Reports: Hx Bronchitis, Hx COPD, Hx Pneumonia Neurological Medical History: Endocrine Medical History: Reports: Hx Diabetes Mellitus Type 2 - insulin dependent Renal/ Medical History: Reports: Hx End Stage Renal Disease - on dialysis, Hx Peritoneal Dialysis, Hx Renal Insufficiency GI Medical History: Reports: Hx Gastroesophageal Reflux Disease Musculoskeletal Medical History: Reports Hx Arthritis, 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, Reports Hx Musculoskeletal Trauma Infectious Medical History: Reports: Hx HIV Past Surgical History: Reports: Hx Orthopedic Surgery - bilateral amputation, R BKA, L AKA, Hx Vascular Surgery - left arm clot removed, IVC filter, Other - Endoscopy; Vascular surgery. - Immunizations Immunizations up to date: Yes Hx Diphtheria, Pertussis, Tetanus Vaccination: Yes Hx Pneumococcal Vaccination: 07/21/10 <DANIEL HERNANDEZ - Last Filed: 05/14/18 06:36> Review of Systems - Review of Systems Constitutional: No symptoms reported EENT: No symptoms reported Cardiovascular: See HPI, Other - chest burning upon awakening, now described as "tightness". elevated blood pressures. Respiratory: No symptoms reported Gastrointestinal: No symptoms reported Genitourinary: No symptoms reported Male Genitourinary: No symptoms reported Musculoskeletal: No symptoms reported Skin: No symptoms reported Hematologic/Lymphatic: No symptoms reported Neurological/Psychological: No symptoms reported -: Yes All other systems reviewed and negative <DANIEL HERNANDEZ - Last Filed: 05/14/18 06:36> Physical Exam <DANIEL HERNANDEZ - Last Filed: 05/14/18 06:36> <JROGE DAY - Last Filed: 05/14/18 10:26> - Vital signs Vitals: Temp Resp BP Pulse Ox 98.2 F 16 155/115 H 98 05/14/18 06:05 05/14/18 06:05 05/14/18 06:05 05/14/18 06:05 - Notes Notes: Physical Exam: General: Alert. HEENT: Normocephalic. Atraumatic. PERRL. Extraocular movements intact. Oropharynx clear. Neck: Supple. Non-tender. Respiratory: No respiratory distress. Diffuse wheezing consistent with smoking history. Anterior chest wall tenderness with palpation. Cardiovascular: Regular rate and rhythm. Abdominal: Epigastric tenderness with palpation. No distension. Normal Bowel Sounds. Back: Non-tender. No deformity or step off. Extremities: Moves all four extremities. Upper extremities: Normal inspection. Normal ROM. Lower extremities: Right BKA left AKA. Normal ROM. Neurological: Normal cognition. AAOx4. Normal speech. Psychological: Normal affect. Normal Mood. Skin: Warm. Dry. Normal color. (DANIEL HERNANDEZ) Course - Laboratory Result Diagrams: 05/14/18 06:10 05/14/18 06:10 <DANIEL HERNANDEZ - Last Filed: 05/14/18 06:36> - Laboratory Result Diagrams: 05/14/18 06:10 05/14/18 06:10 - Diagnostic Test Radiology reviewed: Image reviewed, Reports reviewed - Chest x-ray does not show any pulmonary vascular congestion or heart failure - EKG Interpretation by Md EKG shows normal: Sinus rhythm, [place], QRS Complexes, ST-T Waves. abnormal: Intervals - Prolonged QT interval Rate: Normal - 98 Rhythm: NSR Voltage: Consistant with LVH P Waves: LAE - Consults Dr. Lowe Time consulted: 07:50 Consulted provider: other - Will make arrangements for patient to go over to dialysis from here. <JORGE DAY - Last Filed: 05/14/18 10:26> - Vital Signs Vital signs: Temp Pulse Resp BP Pulse Ox 98.2 F 15 144/90 H 95 05/14/18 06:05 05/14/18 10:01 05/14/18 10:00 05/14/18 10:01 - Laboratory Laboratory results interpreted by sc: 05/14/18 05/14/18 05/14/18 06:10 06:10 06:10 RBC 4.10 L Hgb 12.6 L Hct 37.6 L RDW 14.9 H Seg Neutrophils % 38.6 L Lymphocytes % 46.0 H Potassium 5.5 H Chloride 110 H Carbon Dioxide 19 L BUN 56 H Creatinine 8.11 H Est GFR ( Amer) 8 L Est GFR (Non-Af Amer) 7 L Calcium 8.0 L ALT 17 L NT-Pro-B Natriuret Pep 81907 H Critical Care Note - Critical Care Note Total time excluding time spent on procedures (mins): 35 <JORGE DAY - Last Filed: 05/14/18 10:26> Discharge <DANIEL HERNANDEZ - Last Filed: 05/14/18 06:36> <JORGE DAY - Last Filed: 05/14/18 10:26> - Discharge Clinical Impression: Epigastric abdominal tenderness on direct palpation, Chest wall pain, ESRD on hemodialysis, Hyperkalemia, Non-compliance Hypertension Qualifiers: Hypertension type: essential hypertension Qualified Code(s): I10 - Essential ( primary) hypertension GERD (gastroesophageal reflux disease) Qualifiers: Esophagitis presence: esophagitis presence not specified Qualified Code(s): K21.9 - Gastro-esophageal reflux disease without esophagitis Chest pain Qualifiers: Chest pain type: unspecified Qualified Code(s): R07.9 - Chest pain, unspecified Condition: Stable Disposition: DAVITA Additional Instructions: Try not to miss your regularly scheduled dialysis in the future. Be sure to take your regular medications as prescribed on time. Get your Clonidine patch medication refilled--- talk with your doctor if there are issues getting that medication refilled. RETURN TO THE EMERGENCY ROOM IF ANY NEW OR WORSENING SYMPTOMS. Referrals: MATHIEU MACIAS FNP [NO LOCAL MD] - Follow up as needed Scribe Attestation: 05/14/18 08:45 I personally performed the services described in the documentation, reviewed and edited the documentation which was dictated to the scribe in my presence, and it accurately records my words and actions. (JORGE DAY) Scribe Documentation - Scribe Written by Chayo:: Chayo Ortiz, 05/14/2018 0626 acting as scribe for :: Saida <DANIEL HERNANDEZ - Last Filed: 05/14/18 06:36>
[2018-05-14] MEDS ORDERED: LIDOCAINE 2% VISCOUS SOLN 20 ML UDCUP PO ONE (06:30)
[2018-05-14] MEDS ORDERED: MAG HYDROX/AL HYDROX/SIMETH SUSP 30 ML UDCUP PO ONE (06:30)
[2018-05-14] MEDS ORDERED: IPRATROPIUM/ALBUTEROL 0.5-2.5 MG/3 ML AMPUL NEB ONE (06:30)
[2018-05-14 06:31] LABS: ABSOLUTE EOSINOPHILS # (AUTO) 0.2 10^3/uL (0.0-0.6); ABSOLUTE LYMPHOCYTES (AUTO) 3.6 10^3/uL (0.5-4.7); BASOPHILS % (AUTO) 0.4 % (0-2); EOSINOPHILS % (AUTO) 2.6 % (0-6); HEMATOCRIT 37.6 % (37.9-51.0); HEMOGLOBIN 12.6 g/dL (13.5-17.0); MEAN CORPUSCULAR HEMOGLOBIN 30.6 pg (27.0-33.4); MEAN CORPUSCULAR HGB CONC 33.4 g/dL (32.0-36.0); MEAN CORPUSCULAR VOLUME 92 fl (80-97); MONOCYTES % (AUTO) 12.4 % (3-13); PLATELET COUNT 199 10^3/uL (150-450); RED CELL DISTRIBUTION WIDTH 14.9 % (11.5-14.0); SEGMENTED NEUTROPHILS % (AUTO) 38.6 % (42-78); TOTAL CELLS COUNTED % (AUTO) 100 %; WHITE BLOOD COUNT 7.9 10^3/uL (4.0-10.5)
[2018-05-14 06:36] LABS: ALANINE AMINOTRANSFERASE 17 U/L (21-72); ALBUMIN 3.9 g/dL (3.5-5.0); ALKALINE PHOSPHATASE 82 U/L (38-126); ANION GAP 11 (5-19); ASPARTATE AMINO TRANSFERASE 39 U/L (17-59); BILIRUBIN,DIRECT 0.3 mg/dL (0.0-0.4); BILIRUBIN,TOTAL 0.4 mg/dL (0.2-1.3); BLOOD UREA NITROGEN 56 mg/dL (7-20); CARBON DIOXIDE 19 mmol/L (22-30); CHLORIDE 110 mmol/L (98-107); CREATINE KINASE 71 U/L (55-170); GLUCOSE 95 mg/dL (75-110); POTASSIUM 5.5 mmol/L (3.6-5.0); SODIUM 140.2 mmol/L (137-145); TOTAL PROTEIN 7.3 g/dL (6.3-8.2)
[2018-05-14 06:39] LABS: INTERNATIONAL RATION (INR) 1.02; PROTHROMBIN TIME 13.9 SEC (11.4-15.4)
[2018-05-14 06:48] LABS: CREATINE KINASE MB 1.51 ng/mL (<4.55)
[2018-05-14 06:52] LABS: TROPONIN I 0.062 ng/mL
--- NOTE | 2018-05-14 06:52 | RADIOLOGY REPORT (SQ) ---
EXAM DESCRIPTION: XR CHEST 1 VIEW COMPLETED DATE/TME: 05/14/2018 06:22 CLINICAL HISTORY: 62 years, Male, SOB, CP COMPARISON: 05/02/2018 NUMBER OF VIEWS: One TECHNIQUE: AP view of the chest LIMITATIONS: None. FINDINGS: The lungs are clear. The heart is enlarged. There is no pneumothorax or pleural effusion. There is no acute fracture. IMPRESSION: No acute cardiopulmonary abnormality 2010 [employer]- All Rights Reserved
[2018-05-14] MEDS ORDERED: CLONIDINE HCL 0.2 MG TABLET PO ONE (06:57)
[2018-05-14] MEDS ORDERED: SODIUM POLYSTYRENE SULFONATE 15 GM/60 ML PO ONE (06:57)
--- NOTE | 2018-05-14 09:12 | EKG REPORT ---
SEVERITY:- ABNORMAL ECG - SINUS RHYTHM PROBABLE LEFT ATRIAL ABNORMALITY LEFT VENTRICULAR HYPERTROPHY PROLONGED QT INTERVAL : Confirmed by: Beulah Storm 14-May-2018 09:11:34
[2018-05-14] MEDS ORDERED: ACETAMINOPHEN 325 MG TABLET PO ONE (10:03)
[2018-05-14 11:36] VITALS: BP 152/94
== END 2018-05-14 11:36 | disposition home health service (06) ==
LOC: ER 06:02
DX: I12.0 Hypertensive chronic kidney disease with stage 5 chronic kidney disease or end stage renal disease (principal); N18.6 End stage renal disease; R07.9 Chest pain, unspecified; E87.5 Hyperkalemia; Z91.19 Patient's noncompliance with other medical treatment and regimen; R10.13 Epigastric pain; K21.9 Gastro-esophageal reflux disease without esophagitis; R51 Headache; F17.200 Nicotine dependence, unspecified, uncomplicated
CPT/HCPCS: 93005; 94640; 99291; 36415; 82553; 82550; 85025; 85610; 80053; 84484; 83880; 71045; 93010; J3490 ×5; J7620

== ENCOUNTER 2018-06-03 11:03 | Emergency (ER) | payer MEDICARE, MEDICAID ==
[2018-06-03] MEDS ORDERED: IPRATROPIUM/ALBUTEROL 0.5-2.5 MG/3 ML AMPUL NEB ONE (11:33)
[2018-06-03] MEDS ORDERED: PREDNISONE 20 MG TABLET PO ONE (11:33)
--- NOTE | 2018-06-03 11:34 | ER Document Report ---
ED Medical Screen (RME) - General Chief Complaint: Congestion Stated Complaint: COUGH CONGESTION Time Seen by Provider: 06/03/18 11:30 Notes: 63 years old male was seen couple weeks ago in the ER presents back again with cough and wheezing for the last couple of days. Claims that she is short of breath. No fever chills or other constitutional symptoms. No chest pain. Bilateral expiratory rhonchi's were heard throughout the lung field. Scattered TRAVEL OUTSIDE OF THE [place] IN LAST 30 DAYS: No - Related Data Allergies/Adverse Reactions: calcitriol Allergy (Verified 06/03/18 11:07) itching Past Medical History - Social History Family history: Reviewed & Not Pertinent - Past Medical History Cardiac Medical History: Reports: Hx Congestive Heart Failure - EF is 40%, with moderate diastolic dysfunction, Hx DVT, Hx Heart Attack, Hx Hypercholesterolemia , Hx Hypertension, Hx Peripheral Vascular Disease, Hx Pulmonary Embolism Pulmonary Medical History: Reports: Hx Bronchitis, Hx COPD, Hx Pneumonia Denies: Hx Asthma Neurological Medical History: Denies: Hx Migraine, Hx Seizures Endocrine Medical History: Reports: Hx Diabetes Mellitus Type 2 - insulin dependentComment Only: Hx Diabetes Mellitus Type 1 - 1.5 Renal/ Medical History: Reports: Hx End Stage Renal Disease - on dialysis, Hx Renal Insufficiency. 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, Reports Hx Musculoskeletal Trauma Psychiatric Medical History: Denies: Hx Depression Infectious Medical History: Reports: Hx HIV Past Surgical History: Reports: Hx Orthopedic Surgery - bilateral amputation, R BKA, L AKA, Hx Vascular Surgery - left arm clot removed, IVC filter, thrombectomy 05/18/2018 left arm, Other - Endoscopy; Vascular surgery. - Immunizations Immunizations up to date: Yes Hx Diphtheria, Pertussis, Tetanus Vaccination: Yes History of Influenza Vaccine for 04/2017 - 09/2017 Season: Yes Influenza Administration Date for 04/2017 - 09/2017 Season: 04/20/17 Physical Exam - Vital signs Vitals: Temp Pulse Resp BP Pulse Ox 98.5 F 96 20 160/78 H 95 06/03/18 11:10 06/03/18 11:10 06/03/18 11:10 06/03/18 11:10 06/03/18 11:10 Course - Vital Signs Vital signs: Temp Pulse Resp BP Pulse Ox 98.5 F 96 20 160/78 H 95 06/03/18 11:10 06/03/18 11:10 06/03/18 11:10 06/03/18 11:10 06/03/18 11:10 Doctor's Discharge - Discharge Referrals: [facility]OS[facility] [employer] [Primary Care Provider] - Follow up as needed
[2018-06-03] MEDS: ALBUTEROL SULFATE 0.083% NEB 2.5 MG/3 ML AMPUL NEB SCH ×2 (11:42→12:08)
--- NOTE | 2018-06-03 12:15 | RADIOLOGY REPORT (SQ) ---
EXAM DESCRIPTION: CHEST SINGLE VIEW COMPLETED DATE/TIME: 06/03/2018 12:00 pm REASON FOR STUDY: Cough and shortness of breath COMPARISON: 05/14/2018 EXAM PARAMETERS: NUMBER OF VIEWS: One view. TECHNIQUE: Single frontal radiographic view of the chest acquired. RADIATION DOSE: NA LIMITATIONS: None. FINDINGS: LUNGS AND PLEURA: No opacities, masses or pneumothorax. No pleural effusion. MEDIASTINUM AND HILAR STRUCTURES: No masses. Contour normal. HEART AND VASCULAR STRUCTURES: Cardiac silhouette remains enlarged and is unchanged in configuration BONES: No acute findings. HARDWARE: None in the chest. OTHER: No other significant finding. IMPRESSION: NO ACUTE RADIOGRAPHIC FINDING IN THE CHEST. Other findings as noted above TECHNICAL DOCUMENTATION: JOB ID: [id number] [employer]- All Rights Reserved Reading location - IP/workstation name: [email or web address]
--- NOTE | 2018-06-03 12:38 | ER Document Report ---
ED Respiratory Problem - General Chief Complaint: Congestion Stated Complaint: COUGH CONGESTION Time Seen by Provider: 06/03/18 11:30 Notes: Patient is here to be evaluated for a "bad cough" that is causing him to be short of breath. He says he is coughing up yellow mucus. Also says he has a sore throat. Having generalized body aches. Began feeling badly in the past 24 hours. Patient has had a flu shot. Has also had some diarrhea. Has a history of COPD and uses home inhalers. Has had a headache as well. Patient is a dialysis patient who normally goes Friday, Friday, and Friday. He did not go Friday because of the holiday but was dialyzed yesterday. History of hypertension. On dialysis. Makes urine independently as well. 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 TRAVEL OUTSIDE OF THE [place] IN LAST 30 DAYS: No - Related Data Allergies/Adverse Reactions: calcitriol Allergy (Verified 06/03/18 11:07) itching Past Medical History - Social History Smoking Status: Current Every Day Smoker Chew tobacco use (# tins/day): No Frequency of alcohol use: None Drug Abuse: None Family History: Reviewed & Not Pertinent, CAD, CVA, DM, Hyperlipidemia, Hypertension, Malignancy Patient has suicidal ideation: No Patient has homicidal ideation: No - Past Medical History Cardiac Medical History: Reports: Hx Congestive Heart Failure - EF is 40%, with moderate diastolic dysfunction, Hx DVT, Hx Heart Attack, Hx Hypercholesterolemia , Hx Hypertension, Hx Peripheral Vascular Disease, Hx Pulmonary Embolism Pulmonary Medical History: Reports: Hx Bronchitis, Hx COPD, Hx Pneumonia Neurological Medical History: Endocrine Medical History: Reports: Hx Diabetes Mellitus Type 2 - insulin dependentComment Only: Hx Diabetes Mellitus Type 1 - 1.5 Renal/ Medical History: Reports: Hx End Stage Renal Disease - on dialysis, Hx Renal Insufficiency GI Medical History: Reports: Hx Gastroesophageal Reflux Disease Musculoskeletal Medical History: Reports Hx Arthritis, 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, Reports Hx Musculoskeletal Trauma Infectious Medical History: Reports: Hx HIV Past Surgical History: Reports: Hx Orthopedic Surgery - bilateral amputation, R BKA, L AKA, Hx Vascular Surgery - left arm clot removed, IVC filter, thrombectomy 05/18/2018 left arm, Other - Endoscopy; Vascular surgery. - Immunizations Immunizations up to date: Yes Hx Diphtheria, Pertussis, Tetanus Vaccination: Yes Hx Pneumococcal Vaccination: 07/21/10 Review of Systems - Review of Systems Notes: REVIEW OF SYSTEMS: CONSTITUTIONAL : Denies fever. EENT: Denies eye, ear, nose or mouth or throat pain or other symptoms. CARDIOVASCULAR: Denies chest pain. RESPIRATORY: See HPI GASTROINTESTINAL: See HPI. GENITOURINARY: Denies difficulty or painful urinating, urinary frequency, blood in urine. MUSCULOSKELETAL: Denies back or neck pain. Denies joint pain or swelling. SKIN: Denies rash or skin lesions. NEUROLOGICAL: Denies LOC or altered mental status. Has a headache. Denies sensory loss or motor deficits. ALL OTHER SYSTEMS REVIEWED AND NEGATIVE. Physical Exam - Vital signs Vitals: Temp Pulse Resp BP Pulse Ox 98.5 F 96 20 160/78 H 95 06/03/18 11:10 06/03/18 11:10 06/03/18 11:10 06/03/18 11:10 06/03/18 11:10 Interpretation: Normal, Hypertensive - Mild - Notes Notes: PHYSICAL EXAMINATION: GENERAL: Well-appearing, in no acute distress. Vital signs all essentially normal except for mild hypertension. HEAD: Atraumatic, normocephalic. EYES: Pupils equal round and reactive to light, extraocular movements intact. ENT: oropharynx clear without exudates. Moist mucous membranes. NECK: Normal range of motion, supple. LUNGS: Breath sounds clear and equal bilaterally. No wheezes heard. HEART: Regular rate and rhythm without murmurs. ABDOMEN: Soft, nontender. No guarding or rebound. No masses. BACK: No tenderness throughout entire back. EXTREMITIES: Bilateral leg amputations, right BKA, left AKA. NEUROLOGICAL: Normal speech, normal gait. Normal sensory, motor, and reflex exams. Awake, alert, and oriented x3. Cranial nerves normal. PSYCH: Normal mood, normal affect. SKIN: Warm, dry, no rashes. Course - Vital Signs Vital signs: Temp Pulse Resp BP Pulse Ox 98.2 F 89 18 153/75 H 97 06/03/18 13:01 06/03/18 13:01 06/03/18 13:01 06/03/18 13:01 06/03/18 13:01 - Diagnostic Test Radiology results interpreted by me: 06/03/18 20:15 Chest x-ray shows no evidence of pneumonia or infiltrates. Discharge - Discharge Clinical Impression: Respiratory illness, Bronchitis Condition: Stable Disposition: HOME, SELF-CARE Additional Instructions: UPPER RESPIRATORY ILLNESS: You have a viral infection of the respiratory passages -- a "cold." This common infection causes nasal congestion, drainage, and often sore throat and cough. It is highly contagious. The disease usually lasts about 10 to 14 days. There is no "cure" for the viral infection -- it must run its course. If there is a complication, such as bacterial infection in the nose, sinuses, middle ear, or bronchial tubes, antibiotics may be required. The antibiotics won't affect the virus. Drink plenty of fluids. A humidifier may help. An expectorant medication or decongestant may make you more comfortable. Use acetaminophen or ibuprofen for fever or aches. See the doctor if fever persists over two days, if there is any significant worsening of your symptoms, or if you simply fail to improve as expected. Bronchitis You have acute bronchitis. This disease is an infection or inflammation of the air passageways in your lungs. Symptoms usually include cough, low grade fever, shortness of breath, and wheezing. The cough usually persists for a couple of weeks. Most cases of bronchitis get better without antibiotics. We prescribe antibiotics when we believe bacteria are damaging your airways, or if there's high risk the bronchitis will worsen into pneumonia. Increase your fluid intake. A cool mist humidifier may make your lungs more comfortable. An expectorant (cough medicine that loosens phlegm) can help. If you smoke, STOP!!! Recovery from bronchitis can be somewhat slow, but you should see improvement within a day or two. Repeated episodes of bronchitis may result in lung damage -- for example, chronic bronchitis, recurrent pneumonias, or emphysema. Call the doctor if you develop increasing fever, shortness of breath, chest pain, bloody sputum, or otherwise worsen. If you have not improved at all after several days, contact the physician. Azithromycin Azithromycin (Zithromax) is a broad spectrum antibiotic in the same class as erythromycin. It can treat a variety of bacterial infections, but is most frequently used for respiratory infections. Azithromycin is extremely long-lasting. It accumulates in body tissues and continues to kill bacteria for many days. In order to improve absorption, Azithromycin should be taken at least one hour before or two hours after a meal. It does not have the same strong tendency to upset the stomach as erythromycin and is usually very well tolerated. Patients who have had a rash or other true allergic reactions to erythromycin should not take this medication. Call if you develop gastrointestinal distress, severe diarrhea, rash, hives, itching, or shortness of breath. COUGH-SUPPRESSANT & EXPECTORANT MEDICATION: You are to use a cough medication as needed for relief of symptoms. This medicine is a combination of an expectorant (to make the mucous thinner and more easily "coughed up") and a cough suppressant (to reduce the frequency of coughing). The cough-suppressant medicine is related to narcotics. You may experience mild nausea and sleepiness. Some patients who are very sensitive to narcotics may have stomach pain from this medicine. Taking the medicine with food reduces these side effects. Do not drive or work with machinery until you know how this medicine affects you. The expectorant should have no side effects. Iodine-containing expectorants (such as organidin) should not be taken by persons with active thyroid disease unless approved by your doctor. Call the doctor if you develop shortness of breath, hives, rash, itching, lightheadedness, or severe nausea and vomiting. SMOKING: If you smoke, you should stop smoking. The tar and chemicals in cigarette smoke are harmful. Smoking has been shown to cause: emphysema chronic bronchitis lung cancer mouth and throat cancer stomach and pancreas cancer premature aging defects In addition, smoking increases ear and lung infections in children of smokers. FOLLOW-UP CARE: If you have been referred to a physician for follow-up care, call the physician s office for an appointment as you were instructed or within the next two days. If you experience worsening or a significant change in your symptoms, notify the physician immediately or return to the Emergency Department at any time for re-evaluation. Prescriptions: Hydrocodone/Acetaminophen [Tracy 5-325 mg Tablet] 1 tab PO Q4HP PRN #10 tablet PRN Reason: Cough Azithromycin [Zithromax 250 mg Tablet] 250 mg PO ASDIR PRN #6 tablet PRN Reason: Referrals: YOSHI JEAN-BAPTISTE NP [Primary Care Provider] - Follow up as needed
[2018-06-03] MEDS ORDERED: AZITHROMYCIN 250 MG TABLET PO ONE (12:52)
[2018-06-03] MEDS ORDERED: HYDROCODONE/ACETAMINOPHEN 5-325 MG (6 TAB/ER DISP) PO PRN (12:53)
[2018-06-03 13:03] VITALS: BP 153/75
== END 2018-06-03 13:01 | disposition home or self-care (01) ==
LOC: ER 11:03
DX: J40 Bronchitis, not specified as acute or chronic (principal); J44.9 Chronic obstructive pulmonary disease, unspecified; Z79.899 Other long term (current) drug therapy; R05 Cough; R06.02 Shortness of breath; J02.9 Acute pharyngitis, unspecified; R19.7 Diarrhea, unspecified; R51 Headache; I12.0 Hypertensive chronic kidney disease with stage 5 chronic kidney disease or end stage renal disease; E11.22 Type 2 diabetes mellitus with diabetic chronic kidney disease; N18.6 End stage renal disease; Z99.2 Dependence on renal dialysis; E11.51 Type 2 diabetes mellitus with diabetic peripheral angiopathy without gangrene; F17.200 Nicotine dependence, unspecified, uncomplicated; Z88.8 Allergy status to other drugs, medicaments and biological substances
CPT/HCPCS: 94640; 99284; 71045; A9270 ×5; J7512; J7620

== ENCOUNTER → 2018-06-08 | Outpatient (CLI) | payer MEDICARE, MEDICAID ==
[2018-06-08 13:11] LABS: ABSOLUTE EOSINOPHILS # (AUTO) 0.4 10^3/uL (0.0-0.6); ABSOLUTE LYMPHOCYTES (AUTO) 2.6 10^3/uL (0.5-4.7); ABSOLUTE MONOCYTES (AUTO) 0.5 10^3/uL (0.1-1.4); ABSOLUTE NEUT (AUTO) 3.3 10^3/uL (1.7-8.2); BASOPHILS % (AUTO) 0.7 % (0-2); EOSINOPHILS % (AUTO) 5.1 % (0-6); HEMATOCRIT 30.9 % (37.9-51.0); HEMOGLOBIN 10.6 g/dL (13.5-17.0); LYMPHOCYTES % (AUTO) 38.1 % (13-45); MEAN CORPUSCULAR HEMOGLOBIN 32.9 pg (27.0-33.4); MEAN CORPUSCULAR HGB CONC 34.5 g/dL (32.0-36.0); MEAN CORPUSCULAR VOLUME 95 fl (80-97); MONOCYTES % (AUTO) 7.9 % (3-13); PLATELET COUNT 189 10^3/uL (150-450); RED BLOOD COUNT 3.24 10^6/uL (4.35-5.55); RED CELL DISTRIBUTION WIDTH 15.1 % (11.5-14.0); SEGMENTED NEUTROPHILS % (AUTO) 48.2 % (42-78); TOTAL CELLS COUNTED % (AUTO) 100 %; WHITE BLOOD COUNT 6.8 10^3/uL (4.0-10.5)
[2018-06-08 13:33] LABS: ALANINE AMINOTRANSFERASE 10 U/L (21-72); ALBUMIN 3.6 g/dL (3.5-5.0); ALKALINE PHOSPHATASE 66 U/L (38-126); ANION GAP 16 (5-19); ASPARTATE AMINO TRANSFERASE 16 U/L (17-59); BILIRUBIN,DIRECT 0.4 mg/dL (0.0-0.4); BILIRUBIN,TOTAL 0.4 mg/dL (0.2-1.3); BLOOD UREA NITROGEN 41 mg/dL (7-20); CALCIUM 8.3 mg/dL (8.4-10.2); CARBON DIOXIDE 18 mmol/L (22-30); CHLORIDE 110 mmol/L (98-107); GLUCOSE 92 mg/dL (75-110); POTASSIUM 4.2 mmol/L (3.6-5.0); SODIUM 143.9 mmol/L (137-145); TOTAL PROTEIN 6.6 g/dL (6.3-8.2)
[2018-06-09 12:38] LABS: ABSOLUTE CD 4 HELPER 650 /uL (359-1519); CD BASOPHILS 0 % (Not Estab.); CD EOSINOPHILS 5 % (Not Estab.); CD MONOCYTES 9 % (Not Estab.); CD NEUTROPHILS 46 % (Not Estab.); EOSINOPHILS (ABSOLUTE) 0.3 x10E3/uL (0.0-0.4); HEMOGLOBIN 10.2 g/dL (13.0-17.7); IMMATURE GRANULOCYTES 0 % (Not Estab.); LYMPHS(ABSOLUTE) 2.6 x10E3/uL (0.7-3.1); MCH 30.3 pg (26.6-33.0); MCHC 34.1 g/dL (31.5-35.7); MCV 89 fL (79-97); MONOCYTES(ABSOLUTE) 0.6 x10E3/uL (0.1-0.9); PLATELETS 201 x10E3/uL (150-379); RBC 3.37 x10E6/uL (4.14-5.80); RDW 15.3 % (12.3-15.4); WBC 6.6 x10E3/uL (3.4-10.8)
[2018-06-11 09:54] LABS: HIV-1 RNA LOG10.. 1.699 (.); HIV-1 RNA PCR QUANT 50 copies/mL (.)
== END ==
LOC: OD 12:07
PROVIDERS: ATTEND Nurse Practitioner
DX: B20 Human immunodeficiency virus [HIV] disease (principal)
CPT/HCPCS: 36415; 80053; 85025; 86361; 87536

== ENCOUNTER 2018-06-17 06:34 | Emergency (ER) | payer MEDICARE, MEDICAID ==
[2018-06-17] MEDS ORDERED: ASPIRIN 81 MG TABLET, CHEWABLE PO ONE (07:10)
--- NOTE | 2018-06-17 07:37 | EKG REPORT ---
SEVERITY:- ABNORMAL ECG - SINUS RHYTHM LEFT AXIS DEVIATION LEFT VENTRICULAR HYPERTROPHY BORDERLINE PROLONGED QT INTERVAL : Confirmed by: Marco Young MD 17-Jun-2018 07:36:47
[2018-06-17 07:41] LABS: ALANINE AMINOTRANSFERASE 56 U/L (21-72); ALBUMIN 3.5 g/dL (3.5-5.0); ALKALINE PHOSPHATASE 102 U/L (38-126); ANION GAP 14 (5-19); ASPARTATE AMINO TRANSFERASE 86 U/L (17-59); BILIRUBIN,DIRECT 0.4 mg/dL (0.0-0.4); BILIRUBIN,TOTAL 0.4 mg/dL (0.2-1.3); BLOOD UREA NITROGEN 60 mg/dL (7-20); CALCIUM 7.6 mg/dL (8.4-10.2); CARBON DIOXIDE 16 mmol/L (22-30); CHLORIDE 113 mmol/L (98-107); CREATINE KINASE 139 U/L (55-170); GLUCOSE 102 mg/dL (75-110); SODIUM 143.2 mmol/L (137-145); TOTAL PROTEIN 6.4 g/dL (6.3-8.2)
[2018-06-17 07:44] LABS: INTERNATIONAL RATION (INR) 1.06; PROTHROMBIN TIME 14.4 SEC (11.4-15.4)
[2018-06-17 07:46] LABS: D-DIMER 3.07 ug/mL (0.00-0.50)
--- NOTE | 2018-06-17 07:50 | RADIOLOGY REPORT (SQ) ---
EXAM DESCRIPTION: X-ray single view chest. CLINICAL HISTORY: 63 years Male, chest pain COMPARISON: 06/03/2018 TECHNIQUE: Single portable view of the chest performed on 06/17/2018 at 7:26 AM FINDINGS: The lungs are hyperinflated. No airspace process is identified. There is stable blunting of the lateral costophrenic sulci. There is no evidence of a pneumothorax. The cardiac silhouette is stable and appears mildly enlarged. The mediastinal contours are normal. No acute osseous abnormality is identified. There is an old fracture through the mid left clavicle. No focal soft tissue abnormalities are seen. Multiple surgical clips are noted projecting over the right superior lateral hemithorax. Lines and tubes: None. IMPRESSION: 1. No definite acute intrathoracic disease. 2. Stable hyperinflation of the lungs and stable prominence of the cardiac silhouette. 3. Other chronic findings as described above.
[2018-06-17 07:51] LABS: CREATINE KINASE MB 2.71 ng/mL (<4.55)
[2018-06-17 07:54] LABS: ABSOLUTE EOSINOPHILS # (AUTO) 0.7 10^3/uL (0.0-0.6); ABSOLUTE LYMPHOCYTES (AUTO) 2.7 10^3/uL (0.5-4.7); ABSOLUTE MONOCYTES (AUTO) 0.5 10^3/uL (0.1-1.4); ABSOLUTE NEUT (AUTO) 4.2 10^3/uL (1.7-8.2); BASOPHILS % (AUTO) 0.6 % (0-2); EOSINOPHILS % (AUTO) 8.3 % (0-6); HEMATOCRIT 31.3 % (37.9-51.0); HEMOGLOBIN 10.6 g/dL (13.5-17.0); LYMPHOCYTES % (AUTO) 33.7 % (13-45); MEAN CORPUSCULAR HEMOGLOBIN 31.8 pg (27.0-33.4); MEAN CORPUSCULAR HGB CONC 33.9 g/dL (32.0-36.0); MEAN CORPUSCULAR VOLUME 94 fl (80-97); MONOCYTES % (AUTO) 6.2 % (3-13); PLATELET COUNT 186 10^3/uL (150-450); RED BLOOD COUNT 3.33 10^6/uL (4.35-5.55); RED CELL DISTRIBUTION WIDTH 15.9 % (11.5-14.0); SEGMENTED NEUTROPHILS % (AUTO) 51.2 % (42-78); TOTAL CELLS COUNTED % (AUTO) 100 %; WHITE BLOOD COUNT 8.1 10^3/uL (4.0-10.5)
[2018-06-17 08:05] LABS: TROPONIN I 0.073 ng/mL
--- NOTE | 2018-06-17 09:03 | ER Document Report ---
ED Respiratory Problem - General Chief Complaint: Shortness Of Breath Stated Complaint: shortness of breath Time Seen by Provider: 06/17/18 07:01 Mode of Arrival: Wheelchair Notes: Patient is a well-nourished well-developed 63-year-old male who has a history of AKA, BKA. States these were due to severe blood clots. He also has a history of HIV, congestive heart failure and renal failure. Patient is currently a dialysis patient who sees Dr. Lowe and is on dialysis Wednesdays and Fridays. Comes into the emergency room today complaining of a 2- 3-day onset of increasing shortness of breath with exertion. 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 Went home last night ate dinner got up this morning to go to the bathroom while in the bathroom became exceptionally short of breath and contacted EMS. They came out he was able to recover from his shortness of breath. Went back to bed and laid there for a while got up to go take a shower and again during the shower he became excessively short of breath again and has some anterior chest discomfort with deep inhalation. He states he has had some coughing fits that he is producing yellowish sputum. He also states he was seen here approximately a week or 10 days ago for similar presentation of shortness of breath and was placed on an antibiotic. He states that the antibiotic did not help at all. He also informs me that his breathing machine at home broke down so he does not have access to his nebulized treatments. He also informs me that this past week he went to [facility] and had blood clots removed from around his dialysis shunt. He also denies being on any type of blood thinner. TRAVEL OUTSIDE OF THE [place] IN LAST 30 DAYS: No - HPI Patient complains to provider of: Chest pain, CHF, Cough, Hurts to breath, Short of breath Onset: Other - 3 days ago Duration: Continuous, Worse/persistent Initiating Event: URI Quality of pain: Achy Severity: Moderate Pain Level: 3 Context: Hx CHF, Smoker Short of Breath: Severe Cough: Productive Sputum amount: Small Sputum color: Yellow Sputum consistency: Thick At home treatment: Bronchodilators, Diuretics Associated symptoms: Congestion, Cough, Difficulty breathing, PND Worsened by: Any type of activity Similar symptoms previously: Yes Recently seen / treated by doctor: Yes - Related Data Allergies/Adverse Reactions: calcitriol Allergy (Verified 06/03/18 11:07) itching Past Medical History - General Information source: Patient, [facility] Records - Social History Smoking Status: Current Every Day Smoker Cigarette use (# per day): Yes - Quarter pack of cigarettes a day Chew tobacco use (# tins/day): No Smoking Education Provided: Yes Frequency of alcohol use: None Drug Abuse: None Lives with: Alone Family History: Reviewed & Not Pertinent, CAD, CVA, DM, Hyperlipidemia, Hypertension, Malignancy Patient has suicidal ideation: No Patient has homicidal ideation: No - Past Medical History Cardiac Medical History: Reports: Hx Congestive Heart Failure - EF is 40%, with moderate diastolic dysfunction, Hx DVT, Hx Heart Attack, Hx Hypercholesterolemia , Hx Hypertension, Hx Peripheral Vascular Disease, Hx Pulmonary Embolism Pulmonary Medical History: Reports: Hx Bronchitis, Hx COPD, Hx Pneumonia Denies: Hx Asthma Neurological Medical History: Denies: Hx Migraine, Hx Seizures Endocrine Medical History: Reports: Hx Diabetes Mellitus Type 2 - insulin dependentComment Only: Hx Diabetes Mellitus Type 1 - 1.5 Renal/ Medical History: Reports: Hx End Stage Renal Disease - on dialysis, Hx Renal Insufficiency. Denies: Hx Peritoneal Dialysis GI Medical History: Reports: Hx Gastroesophageal Reflux Disease Musculoskeletal Medical History: Reports Hx Arthritis, 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, Reports Hx Musculoskeletal Trauma Skin Medical History: Denies Hx Eczema Psychiatric Medical History: Denies: Hx Depression Traumatic Medical History: Denies: Hx Traumatic Brain Injury Infectious Medical History: Reports: Hx HIV Past Surgical History: Reports: Hx Orthopedic Surgery - bilateral amputation, R BKA, L AKA, Hx Vascular Surgery - left arm clot removed, IVC filter, thrombectomy 05/18/2018 left arm, Other - Endoscopy; Vascular surgery. - Immunizations Immunizations up to date: Yes Hx Diphtheria, Pertussis, Tetanus Vaccination: Yes Hx Pneumococcal Vaccination: 07/21/10 Review of Systems - Review of Systems Constitutional: No symptoms reported EENT: No symptoms reported Cardiovascular: See HPI, Chest pain Respiratory: See HPI, Cough, Short of breath Gastrointestinal: No symptoms reported Genitourinary: No symptoms reported Male Genitourinary: No symptoms reported Musculoskeletal: No symptoms reported Skin: No symptoms reported Hematologic/Lymphatic: No symptoms reported Neurological/Psychological: No symptoms reported -: Yes All other systems reviewed and negative Physical Exam - Vital signs Vitals: Temp Pulse Resp BP Pulse Ox 97.9 F 82 19 177/99 H 99 06/17/18 07:00 06/17/18 07:00 06/17/18 07:00 06/17/18 07:00 06/17/18 07:00 Interpretation: Normal, Hypertensive - Notes Notes: PHYSICAL EXAMINATION: GENERAL: Patient is a well-nourished well-developed 63-year-old male who does have a BKA and AKA. These were just secondary to blood clots in the past. Patient is no distress at this time although does appear to be mildly short of breath and slightly worried. HEAD: Atraumatic, normocephalic. EYES: Pupils equal round and reactive to light, extraocular movements intact, sclera anicteric, conjunctiva are normal. ENT: Examination head and upper airway showed nasal mucosa to be erythematous and edematous with some rhinorrhea noted. He has bilateral nasal congestion is also noted. There is no frontal or maxillary sinus tenderness to palpation. Bilateral TMs bulging with air but no fluid levels. External canals have some moderate amount of cerumen although they do not obscured the view of the TM. Further examination of the oral cavity shows the posterior pharynx to be mildly erythematous with no exudate noted uvula is midline with erythema no exudate. There is no encroachment upon the uvula. Airway is patent currently. NECK: Normal range of motion, supple without lymphadenopathy LUNGS: Patient displays bilateral breath sounds breath sounds moderately decreased throughout there is a faint inspiratory expiratory wheeze noted. There is no rhonchi or rales heard at this time. HEART: Regular rate and rhythm without murmurs ABDOMEN: Soft, nontender, nondistended abdomen. No guarding, no rebound. No masses appreciated. Musculoskeletal: As stated patient has a BKA and AKA. Examination of his left upper arm where he had a blood clot removed this past week shows no sign of infection and good flow distally in the nailbeds of the left hand. NEUROLOGICAL: Normal speech, normal gait. Normal sensory, motor exams PSYCH: Normal mood, normal affect. SKIN: Warm, Dry, normal turgor, no rashes or lesions noted. Course - Re-evaluation Re-evalutation: 06/17/18 09:08 I have discussed case with Dr. Jami Caldera secondary to patient having an elevated d-dimer to 3.4. Patient's renal functions are baseline for him with a creatinine of 8.8. So we have decided to contact Dr. Lowe the test and turn up technician and we are waiting on his call back. At this point to discuss the options of doing a CT with contrast with Dr. Lowe and the availability of getting believe the patient has clinical PE until proven otherwise. Dialysis afterwards. Also possibility to go ahead and anticoagulate the as well. We find out that Dr. Lowe is taking a personal leave today and Dr. Renteria is covering for him at this time. She did return my call and I informed her of the situation and asked her opinion on which way we needed to go. She agrees with the CTA of the chest with contrast and we have 2 scenarios. One is if patient is negative on his PE I am to call her back and she will try to get him into dialysis either later today or first thing in the morning. 2 is that if he is positive for PE we are going to have to transport for him to another facility because we are full in-house on her dialysis. Either way I will contact her back for more guidance and to inform her of how patient is doing. Which is called by the radiologist who informed me the patient does have a PE right lower lobe. I recontacted Dr. Renteria and she again reinforced the patient want needs to be transferred to a hospital for the PE and dialysis and transition to Eliquis. I first attempted patient's normal hospital which is [facility] and I was informed by the transfer center there that they are not taking any patients unless they are STEMI patients or trauma patients. I then started with the next hospital for availability which was [facility] and was also informed that they were taken no patient's either unless they were trauma patients or cardiac patients. I contacted [facility] and personally spoke to their place me holding contacted the test and turn up technician whom I did not speak with and was able to find the connect to Dr. Haq the hospitalist. I explained to Dr. Haq that we have already started the heparin drip and gave a bolus. He did wonder why we just did not bolus the patient and sending to dialysis outpatient and put him on Eliquis. In my response to that was the Dr. Henning's orders were to me to have them shipped to hospital to start that process and to transition into the Eliquis. This way patient could be monitored for hemodynamic stability and to make sure that everything went well. Dr. Catherine was kind enough to accept the patient and we are be sending him over to [facility] as soon as a transport is available. Prior to all of the above going on I was concerned as to why patient is stopped his Eliquis R who had stopped his Eliquis. I contacted the pharmacy [facility] here in [place] I spoke with the pharmacist there and they told me that the last time he had Eliquis felt was in January. I then contacted his primary care provider who is Cindy Ignacio who is a nurse practitioner with [facility] physician group and their number is [phone]. I spoke with Cindy and she went back into her [employer] EMR and it was not able to tell me much more than patient had a shunt placement for his dialysis back in January by and Eliquis was stopped prior to surgery. Believe the most likely this was patient misunderstanding and he is never restarted it again. And he was admitted to the hospital here in April and the order said continue Eliquis so it is difficult to really say where the error occurred. But since it did and patient is now having a PE we will move forward. I have informed patient of all of these findings and informed him that he needs to be more diligent in his handling of his medications and of his body he is to ask questions and keep a log. Patient has been stable hemodynamically here in the hospital currently his vital signs show a blood pressure 168/94 a heart rate of 74 and a sat of 98% . 06/17/18 10:16 06/17/18 12:53 - Vital Signs Vital signs: Temp Pulse Resp BP Pulse Ox 97.9 F 82 19 177/99 H 99 06/17/18 07:00 06/17/18 07:00 06/17/18 07:00 06/17/18 07:00 06/17/18 14:03 - Laboratory Result Diagrams: 06/17/18 06:50 06/17/18 06:50 Laboratory results interpreted by me: 06/17/18 06/17/18 06/17/18 06:50 06:50 06:50 RBC 3.33 L Hgb 10.6 L Hct 31.3 L RDW 15.9 H Eosinophils % 8.3 H Absolute Eosinophils 0.7 H D-Dimer 3.07 H Chloride 113 H Carbon Dioxide 16 L BUN 60 H Creatinine 8.88 H Est GFR ( Amer) 7 L Est GFR (Non-Af Amer) 6 L Calcium 7.6 L AST 86 H NT-Pro-B Natriuret Pep 06/17/18 06:50 RBC Hgb Hct RDW Eosinophils % Absolute Eosinophils D-Dimer Chloride Carbon Dioxide BUN Creatinine Est GFR ( Amer) Est GFR (Non-Af Amer) Calcium AST NT-Pro-B Natriuret Pep 16308 H Critical Care Note - Critical Care Note Total time excluding time spent on procedures (mins): 100 Comments: Please read the notes in the section under course of stay. I spent extensive amount of time calling and making phone calls. Originally I called for Dr. Lowe who is patient's test and turn up technician I waited over an hour without a call back and I called the gear hobber operator again she called and found out the doctor Myra was covering for him waited for 15 minutes before she call back unable to leave the desk at that time because of the call. After which I attempted to contact her primary care provider the nurse practitioner and the pharmacy never made multiple calls to the hospital on hold waiting to find out if patient could be accepted. Because of all the phone calls and the weights I have extensively exhausted my time with him. For which she absolutely needed the time. Discharge - Discharge Clinical Impression: Pulmonary embolism Qualifiers: Pulmonary embolism type: other Chronicity: acute Acute cor pulmonale presence: without acute cor pulmonale Qualified Code(s): I26.99 - Other pulmonary embolism without acute cor pulmonale Renal failure (ARF), acute on chronic Qualifiers: Acute renal failure type: with other specified pathological lesion Chronic kidney disease stage: stage 4 (severe) Qualified Code(s): N17.8 - Other acute kidney failure; N18.4 - Chronic kidney disease, stage 4 (severe); N18.4 - Chronic kidney disease, stage 4 (severe); N18.4 - Chronic kidney disease, stage 4 (severe); N18.4 - Chronic kidney disease, stage 4 (severe) Condition: Stable Disposition: [facility] Admitting Provider: Hospitalist Unit Admitted: Telemetry Referrals: MACIAS,LESHONDA, WEB USER EXPERIENCE STRATEGIST [Primary Care Provider] - Follow up as needed
--- NOTE | 2018-06-17 12:13 | RADIOLOGY REPORT (SQ) ---
EXAM DESCRIPTION: CTA CHEST COMPLETED DATE/TIME: 06/17/2018 11:24 am REASON FOR STUDY: SOB,PE/ Cleared bY Dr Renteria to have contrast COMPARISON: AP chest 06/17/2018, 05/14/2018 CT chest without contrast 09/02/2017 TECHNIQUE: CT scan of the chest performed using helical scanning technique with dynamic intravenous contrast injection. Images reviewed with lung, soft tissue and bone windows. Reconstructed coronal and sagittal MPR images reviewed. Additional 3 dimensional post-processing performed to develop Maximal Intensity Projection images (CA P). All images stored on PACS. All CT scanners at this facility use dose modulation, iterative reconstruction, and/or weight based d osing when appropriate to reduce radiation dose to as low as reasonably achievable (ALARA). [facility]: Dose Right [facility]: CareDose [facility]: Dose Right [facility]: Teradose 4D [facility]: Soundwave CONTRAST TYPE AND DOSE: contrast/concentration: Isovue 350.00 mg/ml; Total Contrast Delivered: 67.0 ml; Total Saline Delivered: 90.0 ml Contrast bolus optimized for the pulmonary arteries. Not diagnostic for the aorta. RENAL FUNCTION: Creatinine 9, cleared by Dr. Renteria to have IV contrast, dialysis patient RADIATION DOSE: CT Rad equipment meets quality standard of care and radiation dose reduction techniq ues were employed. CTDIvol: 19.0 - 19.8 mGy. DLP: 765 mGy-cm. . LIMITATIONS: None. FINDINGS: LUNGS AND PLEURA: Wedge-shaped foci of airspace disease are present in the right and left posterior costophrenic sulci likely small pulmonary infarct. There are enlarged airspaces throughout the upper lobes from obstructive lung disease. No pleural effusion or pneumothorax. No worrisome pulmonary nodules. Airways are patent. AORTA AND GREAT VESSELS: No aneurysm. Contrast bolus not optimized for the aorta. HEART: No pericardial effusion. No significant coronary artery calcifications. PULMONARY ARTERIES: Filling defects in the right lower lobe segmental pulmonary arteries from acute p ulmonary emboli, lateral and anterior basal segments on axial images 75-87. This report was called t charles Crandall, 1150 hours 06/17/2018 HILAR AND MEDIASTINAL STRUCTURES: No identified masses or abnormal nodes. HARDWARE: Occluded right axillary-femoral arterial vascular graft UPPER ABDOMEN: Tiny nonfunctioning kidneys. THYROID AND OTHER SOFT TISSUES: No masses. No adenopathy. BONES: No acute or significant finding. 3D MIPS: Confirm above findings. OTHER: No other significant finding. IMPRESSION: Acute pulmonary emboli to the right lower lobe lateral and anterobasal segmental pulmona ry arteries COMMENT: Pertinent findings on the imaging study reported as a CRITICAL RESULT to JULITA TOSCANO at12:06 on 06/17/2018. Category of Critical Result: Acute right lower lobe pulmonary emboli Quality ID # [id number]: Final reports with documentation of one or more dose reduction techniques (e.g., Au tomated exposure control, adjustment of the mA and/or kV according to patient size, use of iterative reconstruction technique) TECHNICAL DOCUMENTATION: JOB ID: [id number] [employer]- All Rights Reserved Reading location - IP/workstation name: [email or web address]
[2018-06-17] MEDS ORDERED: HEPARIN SODIUM,PORCINE/D5W 25,000 UNIT/250 ML RTUINJ IV PRN (12:17)
[2018-06-17] MEDS ORDERED: HEPARIN SOD (PORCINE) 1,000 UNIT/ML 10 ML VIAL IV ONE (12:17)
[2018-06-17 13:58] LABS: INTERNATIONAL RATION (INR) 1.09; PROTHROMBIN TIME 14.6 SEC (11.4-15.4)
[2018-06-17 13:59] LABS: PARTIAL THROMBOPLASTIN TIME 33.9 SEC (23.5-35.8)
[2018-06-17 14:30] LABS: APPEARANCE,URINE CLEAR; BILIRUBIN,URINE NEGATIVE (NEGATIVE); COLOR,URINE STRAW; GLUCOSE, URINE 50 mg/dL (NEGATIVE); KETONES,URINE NEGATIVE (NEGATIVE); LEUKOCYTE ESTERASE,URINE NEGATIVE (NEGATIVE); NITRITE,URINE NEGATIVE (NEGATIVE); PROTEIN,URINE 100 mg/dL (NEGATIVE); URINE SPECIFIC GRAVITY 1.015; UROBILINOGEN,URINE NEGATIVE mg/dL (<2.0)
[2018-06-17] MEDS ORDERED: HEPARIN SOD (PORCINE) 1,000 UNIT/ML 10 ML VIAL IV PRN (15:18)
[2018-06-17] MEDS ORDERED: MORPHINE SULFATE 10 MG/ML INJ IV ONE (20:38)
[2018-06-17] MEDS ORDERED: ONDANSETRON HCL INJ/PF 4 MG/2 ML SDV IV ONE (20:38)
[2018-06-17] MEDS ORDERED: ACETAMINOPHEN WITH CODEINE #3 TABLET PO ONE (20:48)
[2018-06-17 21:28] VITALS: BP 180/109
== END 2018-06-17 20:50 | disposition short-term general hospital (02) ==
LOC: ER 06:34
DX: I26.99 Other pulmonary embolism without acute cor pulmonale (principal); I13.0 Hypertensive heart and chronic kidney disease with heart failure and stage 1 through stage 4 chronic kidney disease, or unspecified chronic kidney disease; E11.22 Type 2 diabetes mellitus with diabetic chronic kidney disease; E11.51 Type 2 diabetes mellitus with diabetic peripheral angiopathy without gangrene; N18.4 Chronic kidney disease, stage 4 (severe); I50.9 Heart failure, unspecified; N17.9 Acute kidney failure, unspecified; Z99.2 Dependence on renal dialysis; J44.9 Chronic obstructive pulmonary disease, unspecified; T48.6X6A Underdosing of antiasthmatics, initial encounter; Z91.128 Patient's intentional underdosing of medication regimen for other reason; Z91.14 Patient's other noncompliance with medication regimen; R05 Cough; R09.82 Postnasal drip; H61.23 Impacted cerumen, bilateral; R09.81 Nasal congestion; J34.89 Other specified disorders of nose and nasal sinuses; F17.210 Nicotine dependence, cigarettes, uncomplicated; Z21 Asymptomatic human immunodeficiency virus [HIV] infection status; Z87.01 Personal history of pneumonia (recurrent); Z98.890 Other specified postprocedural states; Z79.899 Other long term (current) drug therapy; Z88.8 Allergy status to other drugs, medicaments and biological substances; Z89.511 Acquired absence of right leg below knee; Z89.612 Acquired absence of left leg above knee
CPT/HCPCS: 93005; 96376; 99291; 99292; 96375; 96365; 96366; 36415; 82553; 82550; 85025; 85610; 85730; 80053; 81001; 84484; 85379; 83880; 71045; 71275; 93010; A9270 ×2; J1644 ×2; J2270; J2405

== ENCOUNTER 2018-06-27 16:10 | Emergency (ER) | payer MEDICARE, MEDICAID ==
--- NOTE | 2018-06-27 17:36 | ER Document Report ---
ED Medical Screen (RME) - General Chief Complaint: Breathing Difficulty Stated Complaint: DIFFICULTY BREATHING Time Seen by Provider: 06/27/18 17:31 Notes: Patient is here complaining of a sharp pain in the right chest area worsened by breathing. He feels short of breath, as well. He has a history of blood clots in his lungs. Was seen here about a week ago and sent to [facility] where he was started on Coumadin that he says he is taking. He was discharged from [facility] on . He is a dialysis patient and says he was dialyzed at [facility] on Friday. He says he does make a large amount of urine. Has had some cough and congestion. No fevers. Patient says he does use cocaine frequently and has had some in the past few days. History of right BKA and left AKA. TRAVEL OUTSIDE OF THE [place] IN LAST 30 DAYS: No - Related Data Allergies/Adverse Reactions: calcitriol Allergy (Verified 06/27/18 16:11) itching Past Medical History - Social History Chew tobacco use (# tins/day): No Frequency of alcohol use: None Drug Abuse: Cocaine Family history: Reviewed & Not Pertinent - Past Medical History Cardiac Medical History: Reports: Hx Congestive Heart Failure - EF is 40%, with moderate diastolic dysfunction, Hx DVT, Hx Heart Attack, Hx Hypercholesterolemia , Hx Hypertension, Hx Peripheral Vascular Disease, Hx Pulmonary Embolism Pulmonary Medical History: Reports: Hx Bronchitis, Hx COPD, Hx Pneumonia Denies: Hx Asthma Neurological Medical History: Denies: Hx Migraine, Hx Seizures Endocrine Medical History: Reports: Hx Diabetes Mellitus Type 2 - insulin dependentComment Only: Hx Diabetes Mellitus Type 1 - 1.5 Renal/ Medical History: Reports: Hx End Stage Renal Disease - on dialysis, Hx Renal Insufficiency. 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, Reports Hx Musculoskeletal Trauma Skin Medical History: Denies Hx Eczema Psychiatric Medical History: Denies: Hx Depression Traumatic Medical History: Denies: Hx Traumatic Brain Injury Infectious Medical History: Reports: Hx HIV Past Surgical History: Reports: Hx Orthopedic Surgery - bilateral amputation, R BKA, L AKA, Hx Vascular Surgery - left arm clot removed, IVC filter, thrombectomy 05/18/2018 left arm, Other - Endoscopy; Vascular surgery. - Immunizations Immunizations up to date: Yes Hx Diphtheria, Pertussis, Tetanus Vaccination: Yes History of Influenza Vaccine for 04/2017 - 09/2017 Season: Yes Influenza Administration Date for 04/2017 - 09/2017 Season: 04/20/17 Physical Exam - Vital signs Vitals: Temp Pulse Resp BP Pulse Ox 98.2 F 101 H 20 148/64 H 100 06/27/18 16:13 06/27/18 16:13 06/27/18 16:13 06/27/18 16:13 06/27/18 16:13 Course - Vital Signs Vital signs: Temp Pulse Resp BP Pulse Ox 98.2 F 101 H 20 148/64 H 100 06/27/18 16:13 06/27/18 16:13 06/27/18 16:13 06/27/18 16:13 06/27/18 16:13 Doctor's Discharge - Discharge Referrals: MATHIEU MACIAS FNP [Primary Care Provider] - Follow up as needed
[2018-06-27] MEDS ORDERED: IPRATROPIUM/ALBUTEROL 0.5-2.5 MG/3 ML AMPUL NEB ONE (18:04)
--- NOTE | 2018-06-27 18:07 | ER Document Report ---
ED General - General Chief Complaint: Breathing Difficulty Stated Complaint: DIFFICULTY BREATHING Time Seen by Provider: 06/27/18 17:31 Mode of Arrival: Wheelchair Information source: Patient Notes: This is a 63-year-old man with a history of HIV, CHF, end-stage renal disease ( hemodialysis Mondays, Wednesdays, Fridays), recent diagnosis of PE who presents to the emergency room with some chest heaviness, some shortness of breath with deep inspiration and nasal congestion. Patient was just released from [facility] 2 days ago. He was last dialyzed at that time. His next dialysis is scheduled for Friday. Patient states that his pain is not is worse when he originally came to this hospital (before transfer to [place]) but is not resolved completely. The patient does smoke a quarter of a pack of cigarettes a day and does have a history of some COPD as well. He does report nasal congestion and a runny nose. He denies fever or sputum production. TRAVEL OUTSIDE OF THE [place] IN LAST 30 DAYS: No - HPI Onset: Other - Symptoms over the past month Onset/Duration: Gradual Quality of pain: Dull Severity: Moderate Pain Level: 2 Associated symptoms: denies: Chills, Fever, Shortness of breath Exacerbated by: Deep breathing Relieved by: Denies Similar symptoms previously: Yes Recently seen / treated by doctor: Yes - Related Data Allergies/Adverse Reactions: calcitriol Allergy (Verified 06/27/18 16:11) itching Past Medical History - General Information source: Patient - Social History Smoking Status: Current Every Day Smoker Cigarette use (# per day): Yes - Half a pack per day Chew tobacco use (# tins/day): No Frequency of alcohol use: None Drug Abuse: Cocaine Lives with: Spouse/Significant other Family History: Reviewed & Not Pertinent, CAD, CVA, DM, Hyperlipidemia, Hypertension, Malignancy Patient has suicidal ideation: No Patient has homicidal ideation: No - Past Medical History Cardiac Medical History: Reports: Hx Congestive Heart Failure - EF is 40%, with moderate diastolic dysfunction, Hx DVT, Hx Heart Attack, Hx Hypercholesterolemia , Hx Hypertension, Hx Peripheral Vascular Disease, Hx Pulmonary Embolism Pulmonary Medical History: Reports: Hx Bronchitis, Hx COPD, Hx Pneumonia Denies: Hx Asthma Neurological Medical History: Denies: Hx Migraine, Hx Seizures Endocrine Medical History: Reports: Hx Diabetes Mellitus Type 2 - insulin dependentComment Only: Hx Diabetes Mellitus Type 1 - 1.5 Renal/ Medical History: Reports: Hx End Stage Renal Disease - on dialysis, Hx Renal Insufficiency. Denies: Hx Peritoneal Dialysis GI Medical History: Reports: Hx Gastroesophageal Reflux Disease Musculoskeletal Medical History: Reports Hx Arthritis, 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, Reports Hx Musculoskeletal Trauma Skin Medical History: Denies Hx Eczema Psychiatric Medical History: Denies: Hx Depression Traumatic Medical History: Denies: Hx Traumatic Brain Injury Infectious Medical History: Reports: Hx HIV Past Surgical History: Reports: Hx Orthopedic Surgery - bilateral amputation, R BKA, L AKA, Hx Vascular Surgery - left arm clot removed, IVC filter, thrombectomy 05/18/2018 left arm, Other - Endoscopy; Vascular surgery. - Immunizations Immunizations up to date: Yes Hx Diphtheria, Pertussis, Tetanus Vaccination: Yes Hx Pneumococcal Vaccination: 07/21/10 Review of Systems - Review of Systems Constitutional: denies: Chills, Fever EENT: No symptoms reported Cardiovascular: See HPI Respiratory: See HPI Gastrointestinal: No symptoms reported Genitourinary: No symptoms reported Male Genitourinary: No symptoms reported Musculoskeletal: See HPI Skin: No symptoms reported Hematologic/Lymphatic: No symptoms reported Neurological/Psychological: No symptoms reported Physical Exam - Vital signs Vitals: Temp Pulse Resp BP Pulse Ox 98.2 F 101 H 20 148/64 H 100 06/27/18 16:13 06/27/18 16:13 06/27/18 16:13 06/27/18 16:13 06/27/18 16:13 Notes: Physical exam: GENERAL: She is alert and oriented x3, he is in no distress, he looks very comfortable. He looks good. HEAD: Atraumatic, normocephalic. EYES: Pupils equal round and reactive to light, extraocular movements intact, sclera anicteric, conjunctiva are normal. ENT: TMs normal, nares patent, oropharynx clear without exudates. Moist mucous membranes. NECK: Normal range of motion, supple without obvious mass or JVD. LUNGS: Scattered wheezing, no significant respiratory distress, no accessory muscle use. HEART: Regular rate and rhythm without murmurs, rubs or gallops. ABDOMEN: Soft, normoactive bowel sounds. No tenderness to palpation. No guarding, no rebound. No masses appreciated. EXTREMITIES: Patient has a chronic right BKA, left AKA. NEUROLOGICAL: Cranial nerves II through XII grossly intact. Normal speech, moving all extremities. PSYCH: Normal mood, normal affect. SKIN: Warm, Dry, normal turgor, no rashes or lesions noted. Course - Re-evaluation Re-evalutation: 06/27/18 19:43 Note: Patient looks great today. His EKG is unchanged and his chest x-ray is clear. I did confront him about the cocaine in the urine and he states he had not had that until before his last hospitalization with [place]. He is adamant that he has not had any cocaine in the last 5 days. As far as his pain , he states that the chest wall pain seems to be actually better than it was during the first time he was evaluated (before transfer over to [place]). I did call Italia Maki who is over in [place] and found that the dose of Coumadin (5 mg daily) and I advised him to increase this to 10 mg daily for the next 2 days. I have advised him also to follow-up with his doctor on Friday for repeat Coumadin level. - Vital Signs Vital signs: Temp Pulse Resp BP Pulse Ox 98.0 F 87 16 135/61 H 97 06/27/18 19:28 06/27/18 19:28 06/27/18 19:28 06/27/18 19:28 06/27/18 19:28 - Laboratory Result Diagrams: 06/27/18 18:18 06/27/18 18:18 Laboratory results interpreted by me: 06/27/18 06/27/18 06/27/18 17:36 18:18 18:18 RBC 3.63 L Hgb 11.7 L Hct 34.2 L RDW 16.5 H Eosinophils % 6.3 H PT Potassium 5.3 H Chloride 113 H Carbon Dioxide 14 L BUN 75 H Creatinine 9.75 H Est GFR ( Amer) 7 L Est GFR (Non-Af Amer) 5 L Calcium 7.8 L Urine Protein 100 H Urine Glucose (UA) 50 H Urine Blood SMALL H Ur Leukocyte Esterase MODERATE H 06/27/18 18:18 RBC Hgb Hct RDW Eosinophils % PT 15.8 H Potassium Chloride Carbon Dioxide BUN Creatinine Est GFR ( Amer) Est GFR (Non-Af Amer) Calcium Urine Protein Urine Glucose (UA) Urine Blood Ur Leukocyte Esterase - Diagnostic Test Radiology reviewed: Image reviewed, Reports reviewed - Chest x-ray shows no infiltrates or effusions - EKG Interpretation by Me Rate: Normal Rhythm: NSR - EKG shows normal sinus rhythm with a ventricular rate of 79, no acute ST-T wave changes Discharge - Discharge Clinical Impression: Chest wall pain Condition: Stable Disposition: HOME, SELF-CARE Additional Instructions: As we discussed, your test x-ray looked good today. Your electrolytes were fine. I want you to take 2 Coumadin's tonight (10 mg) as well as to Coumadin's tomorrow (10 mg). I want you to follow-up with your primary care doctor or kidney doctor on Friday because his Coumadin level will have to get rechecked. The level was a little bit low and we wanted a little bit higher. The other concerning thing tonight is that I absolutely want you to not use cocaine. Even though you have not used it for 5 days, it is still in your system (the urine test showed it) and this can be dangerous. Cocaine can cause an acute stroke or an acute heart attack and lead to sudden . It is absolutely imperative that you know that this is very dangerous and you should not be doing it. Return to the ER for worsening chest pain or shortness of breath or any concerns or getting worse. Prescriptions: Oxycodone HCl 5 mg PO Q6HP PRN #20 ml PRN Reason: Referrals: MATHIEU MACIAS FNP [Primary Care Provider] - Follow up as needed
[2018-06-27 18:10] LABS: AMORPHOUS SEDIMENT,URINE TRACE /HPF; APPEARANCE,URINE CLEAR; BILIRUBIN,URINE NEGATIVE (NEGATIVE); COLOR,URINE STRAW; GLUCOSE, URINE 50 mg/dL (NEGATIVE); KETONES,URINE NEGATIVE (NEGATIVE); LEUKOCYTE ESTERASE,URINE MODERATE (NEGATIVE); NITRITE,URINE NEGATIVE (NEGATIVE); PROTEIN,URINE 100 mg/dL (NEGATIVE); UROBILINOGEN,URINE NEGATIVE mg/dL (<2.0)
[2018-06-27 18:25] LABS: URINE AMPHETAMINES SCREEN NEGATIVE; URINE BARBITURATES SCREEN NEGATIVE; URINE BENZODIAZEPINES SCREEN NEGATIVE; URINE COCAINE SCREEN UNCONFIRMED POSITIVE; URINE MARIJUANA (THC) SCREEN NEGATIVE; URINE METHADONE SCREEN NEGATIVE; URINE PHENCYCLIDINE SCREEN NEGATIVE
[2018-06-27 18:26] LABS: ABSOLUTE BASOPHILS # (AUTO) 0.1 10^3/uL (0.0-0.2); ABSOLUTE EOSINOPHILS # (AUTO) 0.4 10^3/uL (0.0-0.6); ABSOLUTE LYMPHOCYTES (AUTO) 2.3 10^3/uL (0.5-4.7); ABSOLUTE MONOCYTES (AUTO) 0.6 10^3/uL (0.1-1.4); ABSOLUTE NEUT (AUTO) 2.9 10^3/uL (1.7-8.2); BASOPHILS % (AUTO) 0.9 % (0-2); EOSINOPHILS % (AUTO) 6.3 % (0-6); HEMATOCRIT 34.2 % (37.9-51.0); HEMOGLOBIN 11.7 g/dL (13.5-17.0); LYMPHOCYTES % (AUTO) 36.3 % (13-45); MEAN CORPUSCULAR HEMOGLOBIN 32.2 pg (27.0-33.4); MEAN CORPUSCULAR HGB CONC 34.2 g/dL (32.0-36.0); MEAN CORPUSCULAR VOLUME 94 fl (80-97); MONOCYTES % (AUTO) 10.2 % (3-13); PLATELET COUNT 208 10^3/uL (150-450); RED BLOOD COUNT 3.63 10^6/uL (4.35-5.55); RED CELL DISTRIBUTION WIDTH 16.5 % (11.5-14.0); SEGMENTED NEUTROPHILS % (AUTO) 46.3 % (42-78); TOTAL CELLS COUNTED % (AUTO) 100 %; WHITE BLOOD COUNT 6.3 10^3/uL (4.0-10.5)
[2018-06-27 18:34] LABS: PROTHROMBIN TIME 15.8 SEC (11.4-15.4)
[2018-06-27 18:40] LABS: ALANINE AMINOTRANSFERASE 23 U/L (21-72); ALBUMIN 3.9 g/dL (3.5-5.0); ALKALINE PHOSPHATASE 79 U/L (38-126); ANION GAP 17 (5-19); ASPARTATE AMINO TRANSFERASE 17 U/L (17-59); BILIRUBIN,DIRECT 0.4 mg/dL (0.0-0.4); BILIRUBIN,TOTAL 0.4 mg/dL (0.2-1.3); BLOOD UREA NITROGEN 75 mg/dL (7-20); CALCIUM 7.8 mg/dL (8.4-10.2); CARBON DIOXIDE 14 mmol/L (22-30); CHLORIDE 113 mmol/L (98-107); GLUCOSE 84 mg/dL (75-110); POTASSIUM 5.3 mmol/L (3.6-5.0); SODIUM 143.5 mmol/L (137-145); TOTAL PROTEIN 6.7 g/dL (6.3-8.2)
[2018-06-27 18:52] LABS: CREATINE KINASE MB 1.59 ng/mL (<4.55)
[2018-06-27 18:58] LABS: TROPONIN I 0.05 ng/mL
--- NOTE | 2018-06-27 19:04 | RADIOLOGY REPORT (SQ) ---
EXAM DESCRIPTION: CHEST 2 VIEWS COMPLETED DATE/TIME: 06/27/2018 6:52 pm REASON FOR STUDY: Right-sided chest pain COMPARISON: 06/17/2018 EXAM PARAMETERS: NUMBER OF VIEWS: two views TECHNIQUE: Digital Frontal and Lateral radiographic views of the chest acquired. RADIATION DOSE: NA LIMITATIONS: none FINDINGS: LUNGS AND PLEURA: No opacities, masses or pneumothorax. No pleural effusion. MEDIASTINUM AND HILAR STRUCTURES: No masses or contour abnormalities. HEART AND VASCULAR STRUCTURES: Heart normal size. No evidence for failure. BONES: No acute findings. HARDWARE: None in the chest. OTHER: No other significant finding. IMPRESSION: NO ACUTE RADIOGRAPHIC FINDING IN THE CHEST. TECHNICAL DOCUMENTATION: JOB ID: [id number] [employer]- All Rights Reserved Reading location - IP/workstation name: [email or web address]
[2018-06-27 19:29] VITALS: BP 135/61
[2018-06-27] MEDS ORDERED: OXYCODONE HCL IR 5 MG TABLET PO ONE (19:40)
--- NOTE | 2018-06-28 10:38 | EKG REPORT ---
SEVERITY:- ABNORMAL ECG - SINUS RHYTHM PROBABLE LEFT VENTRICULAR HYPERTROPHY : Confirmed by: Beulah Storm 28-Jun-2018 10:38:07
== END 2018-06-27 19:57 | disposition home or self-care (01) ==
LOC: ER 16:10
DX: I26.99 Other pulmonary embolism without acute cor pulmonale (principal); R07.89 Other chest pain; I12.0 Hypertensive chronic kidney disease with stage 5 chronic kidney disease or end stage renal disease; E11.22 Type 2 diabetes mellitus with diabetic chronic kidney disease; N18.6 End stage renal disease; Z99.2 Dependence on renal dialysis; E11.51 Type 2 diabetes mellitus with diabetic peripheral angiopathy without gangrene; J44.9 Chronic obstructive pulmonary disease, unspecified; R09.81 Nasal congestion; R09.89 Other specified symptoms and signs involving the circulatory and respiratory systems; R06.02 Shortness of breath; F14.10 Cocaine abuse, uncomplicated; F17.210 Nicotine dependence, cigarettes, uncomplicated; Z21 Asymptomatic human immunodeficiency virus [HIV] infection status; Z89.511 Acquired absence of right leg below knee; Z89.612 Acquired absence of left leg above knee; Z88.8 Allergy status to other drugs, medicaments and biological substances
CPT/HCPCS: 93005; 94640; 99285; 36415; 82553; 85025; 85610; 80053; 81001; 84484; 80307; 71046; 93010; A9270 ×2; J7620

== ENCOUNTER 2018-07-06 17:56 | Emergency (ER) | payer MEDICARE, MEDICAID ==
[2018-07-06 18:04] VITALS: BP 171/90
[2018-07-06] MEDS ORDERED: ACETAMINOPHEN 325 MG TABLET PO ONE (18:25)
--- NOTE | 2018-07-06 18:30 | ER Document Report ---
ED Medical Screen (RME) - General Chief Complaint: Abnormal Lab Results Stated Complaint: HEADACHE,ABNORMAL LABS Time Seen by Provider: 07/06/18 18:23 Mode of Arrival: Wheelchair Information source: Patient, [facility] Records Notes: 63-year-old male with hypertension, DVT, PE, end-stage renal disease presents with complaint of "the doctor said my blood is too thick" and a headache. Patient reports that he is on Coumadin for pulmonary embolism. He did undergo dialysis today. States that he was called by the nurse and told to come to the emergency department for being subtherapeutic. INR drawn earlier today was 2.10. I have greeted and performed a rapid initial assessment of this patient. A comprehensive ED assessment and evaluation of the patient, analysis of test results and completion of medical decision making process we will be contacted by additional ED providers. PHYSICAL EXAMINATION: Vital signs reviewed-hypertensive GENERAL: Well-appearing, well-nourished and in no acute distress. LUNGS: No respiratory distress NEUROLOGICAL: Normal speech, PSYCH: Normal mood, normal affect. SKIN: Warm, Dry, normal turgor, no rashes or lesions noted. TRAVEL OUTSIDE OF THE [place] IN LAST 30 DAYS: No - HPI Onset: Just prior to arrival Onset/Duration: Gradual Quality of pain: Achy Associated Symptoms: Headache Exacerbated by: Denies Relieved by: Denies Similar symptoms previously: Yes Recently seen / treated by doctor: Yes - Related Data Smoking: Cigarettes Frequency of alcohol use: None Drug Abuse: Cocaine Allergies/Adverse Reactions: calcitriol Allergy (Verified 06/27/18 16:11) itching Past Medical History - Social History Family history: Reviewed & Not Pertinent - Past Medical History Cardiac Medical History: Reports: Hx Congestive Heart Failure - EF is 40%, with moderate diastolic dysfunction, Hx DVT, Hx Heart Attack, Hx Hypercholesterolemia , Hx Hypertension, Hx Peripheral Vascular Disease, Hx Pulmonary Embolism Pulmonary Medical History: Reports: Hx Bronchitis, Hx COPD, Hx Pneumonia Denies: Hx Asthma Neurological Medical History: Denies: Hx Migraine, Hx Seizures Endocrine Medical History: Reports: Hx Diabetes Mellitus Type 2 - insulin dependentComment Only: Hx Diabetes Mellitus Type 1 - 1.5 Renal/ Medical History: Reports: Hx End Stage Renal Disease - on dialysis, Hx Renal Insufficiency. 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, Reports Hx Musculoskeletal Trauma Skin Medical History: Denies Hx Eczema Psychiatric Medical History: Denies: Hx Depression Traumatic Medical History: Denies: Hx Traumatic Brain Injury Infectious Medical History: Reports: Hx HIV Past Surgical History: Reports: Hx Orthopedic Surgery - bilateral amputation, R BKA, L AKA, Hx Vascular Surgery - left arm clot removed, IVC filter, thrombectomy 05/18/2018 left arm, Other - Endoscopy; Vascular surgery. - Immunizations Immunizations up to date: Yes Hx Diphtheria, Pertussis, Tetanus Vaccination: Yes History of Influenza Vaccine for 04/2017 - 09/2017 Season: Yes Influenza Administration Date for 04/2017 - 09/2017 Season: 04/20/17 Physical Exam - Vital signs Vitals: Temp Pulse Resp BP Pulse Ox 98.5 F 78 16 171/90 H 97 07/06/18 18:03 07/06/18 18:03 07/06/18 18:03 07/06/18 18:03 07/06/18 18:03 Course - Vital Signs Vital signs: Temp Pulse Resp BP Pulse Ox 98.5 F 78 16 171/90 H 97 07/06/18 18:03 07/06/18 18:03 07/06/18 18:03 07/06/18 18:03 07/06/18 18:03 Doctor's Discharge - Discharge Referrals: YOSHI JEAN-BAPTISTE NP [Primary Care Provider] - Follow up as needed
[2018-07-06 18:58] LABS: ABSOLUTE BASOPHILS # (AUTO) 0.1 10^3/uL (0.0-0.2); ABSOLUTE EOSINOPHILS # (AUTO) 0.3 10^3/uL (0.0-0.6); ABSOLUTE LYMPHOCYTES (AUTO) 2.3 10^3/uL (0.5-4.7); ABSOLUTE MONOCYTES (AUTO) 0.5 10^3/uL (0.1-1.4); ABSOLUTE NEUT (AUTO) 1.9 10^3/uL (1.7-8.2); BASOPHILS % (AUTO) 1.1 % (0-2); EOSINOPHILS % (AUTO) 5.1 % (0-6); HEMATOCRIT 36.2 % (37.9-51.0); HEMOGLOBIN 12.4 g/dL (13.5-17.0); LYMPHOCYTES % (AUTO) 46.2 % (13-45); MEAN CORPUSCULAR HEMOGLOBIN 31.7 pg (27.0-33.4); MEAN CORPUSCULAR HGB CONC 34.1 g/dL (32.0-36.0); MEAN CORPUSCULAR VOLUME 93 fl (80-97); PLATELET COUNT 208 10^3/uL (150-450); RED CELL DISTRIBUTION WIDTH 15.7 % (11.5-14.0); SEGMENTED NEUTROPHILS % (AUTO) 37.6 % (42-78); TOTAL CELLS COUNTED % (AUTO) 100 %; WHITE BLOOD COUNT 4.9 10^3/uL (4.0-10.5)
[2018-07-06 19:06] LABS: INTERNATIONAL RATION (INR) 1.92; PROTHROMBIN TIME 22.9 SEC (11.4-15.4)
[2018-07-06 19:17] LABS: ALANINE AMINOTRANSFERASE 15 U/L (21-72); ALBUMIN 4.1 g/dL (3.5-5.0); ALKALINE PHOSPHATASE 93 U/L (38-126); ANION GAP 12 (5-19); ASPARTATE AMINO TRANSFERASE 21 U/L (17-59); BILIRUBIN,DIRECT 0.4 mg/dL (0.0-0.4); BILIRUBIN,TOTAL 0.5 mg/dL (0.2-1.3); BLOOD UREA NITROGEN 27 mg/dL (7-20); CALCIUM 8.9 mg/dL (8.4-10.2); CARBON DIOXIDE 26 mmol/L (22-30); CHLORIDE 103 mmol/L (98-107); GLUCOSE 89 mg/dL (75-110); POTASSIUM 3.5 mmol/L (3.6-5.0); SODIUM 141.4 mmol/L (137-145)
== END 2018-07-06 19:45 | disposition left against medical advice (07) ==
LOC: ER 17:56
DX: R51 Headache (principal); E11.22 Type 2 diabetes mellitus with diabetic chronic kidney disease; I13.2 Hypertensive heart and chronic kidney disease with heart failure and with stage 5 chronic kidney disease, or end stage renal disease; N18.6 End stage renal disease; E78.00 Pure hypercholesterolemia, unspecified; J44.9 Chronic obstructive pulmonary disease, unspecified; B20 Human immunodeficiency virus [HIV] disease; Z99.2 Dependence on renal dialysis; I25.2 Old myocardial infarction; Z79.01 Long term (current) use of anticoagulants; Z86.718 Personal history of other venous thrombosis and embolism; Z86.711 Personal history of pulmonary embolism; Z89.512 Acquired absence of left leg below knee; Z89.511 Acquired absence of right leg below knee
CPT/HCPCS: 36415; 80053; 85025; 85610; 99281

== ENCOUNTER → 2018-07-06 | Outpatient (CLI) | payer MEDICARE, MEDICAID ==
[2018-07-06 17:03] LABS: PROTHROMBIN TIME 24.6 SEC (11.4-15.4)
== END ==
LOC: OD 15:32
PROVIDERS: ATTEND Nurse Practitioner
DX: I26.99 Other pulmonary embolism without acute cor pulmonale (principal); Z79.01 Long term (current) use of anticoagulants
CPT/HCPCS: 36415; 85610

== ENCOUNTER 2018-07-15 04:00 | Observation (INO) | payer MEDICARE, MEDICAID ==
[2018-07-15 04:17] LABS: ABSOLUTE BASOPHILS # (AUTO) 0.1 10^3/uL (0.0-0.2); ABSOLUTE EOSINOPHILS # (AUTO) 0.3 10^3/uL (0.0-0.6); ABSOLUTE LYMPHOCYTES (AUTO) 1.9 10^3/uL (0.5-4.7); ABSOLUTE MONOCYTES (AUTO) 0.6 10^3/uL (0.1-1.4); ABSOLUTE NEUT (AUTO) 5.8 10^3/uL (1.7-8.2); BASOPHILS % (AUTO) 1.1 % (0-2); EOSINOPHILS % (AUTO) 3.6 % (0-6); HEMATOCRIT 33.7 % (37.9-51.0); HEMOGLOBIN 11.4 g/dL (13.5-17.0); MEAN CORPUSCULAR HEMOGLOBIN 31.8 pg (27.0-33.4); MEAN CORPUSCULAR HGB CONC 33.9 g/dL (32.0-36.0); MEAN CORPUSCULAR VOLUME 94 fl (80-97); MONOCYTES % (AUTO) 7.2 % (3-13); PLATELET COUNT 212 10^3/uL (150-450); RED BLOOD COUNT 3.59 10^6/uL (4.35-5.55); SEGMENTED NEUTROPHILS % (AUTO) 66.1 % (42-78); TOTAL CELLS COUNTED % (AUTO) 100 %; WHITE BLOOD COUNT 8.8 10^3/uL (4.0-10.5)
[2018-07-15 04:18] LABS: VENOUS BLOOD BASE EXCESS -11.1 mmol/L; VENOUS BLOOD HCO3 13.5 mmol/L (20-32); VENOUS BLOOD PH 7.32 (7.30-7.42)
[2018-07-15 04:32] LABS: ALANINE AMINOTRANSFERASE 66 U/L (21-72); ALBUMIN 3.9 g/dL (3.5-5.0); ALKALINE PHOSPHATASE 92 U/L (38-126); ANION GAP 16 (5-19); BILIRUBIN,DIRECT 0.5 mg/dL (0.0-0.4); BILIRUBIN,TOTAL 0.5 mg/dL (0.2-1.3); BLOOD UREA NITROGEN 64 mg/dL (7-20); CARBON DIOXIDE 13 mmol/L (22-30); CHLORIDE 115 mmol/L (98-107); CREATINE KINASE 211 U/L (55-170); GLUCOSE 94 mg/dL (75-110); POTASSIUM 4.3 mmol/L (3.6-5.0); SODIUM 143.6 mmol/L (137-145); TOTAL PROTEIN 6.7 g/dL (6.3-8.2)
[2018-07-15 04:33] LABS: ASPARTATE AMINO TRANSFERASE 79 U/L (17-59)
--- NOTE | 2018-07-15 04:37 | ER Document Report ---
ED Respiratory Problem - General Chief Complaint: Breathing Difficulty Stated Complaint: DIFFICULTY BREATHING Time Seen by Provider: 07/15/18 04:15 Notes: Patient is a 63-year-old male presents to the emergency department for generalized shortness of breath and chest tightness. Patient states he woke up to use the restroom and as he was trying to get himself to the bathroom he got very winded and developed tightness in his chest. Patient states at that time he got very diaphoretic. Patient states he then called 911. Patient also admits to a generalized cough, congestion and subjective fever for the last couple of weeks. States he was seen at this facility on 06/17/2018 dx with a PE and placed on Coumadin. Pt. has been to this facility twice since then for "thick blood" and CP, cough, congestion, SOB. Past medical history: Pulmonary embolism, chronic kidney failure with dialysis, COPD, HIV, hypertension, coronary artery disease, congestive heart failure Medications: Clonidine, Coumadin, nitroglycerin, Lasix, isosorbide, albuterol, Doluteqravir, Abacavir, Hydralazine Allergies: Calcitriol TRAVEL OUTSIDE OF THE [place] IN LAST 30 DAYS: No - Related Data Allergies/Adverse Reactions: calcitriol Allergy (Verified 06/27/18 16:11) itching Past Medical History - General Information source: Patient - Social History Smoking Status: Current Every Day Smoker Chew tobacco use (# tins/day): No Frequency of alcohol use: None Drug Abuse: Cocaine Family History: Reviewed & Not Pertinent, CAD, CVA, DM, Hyperlipidemia, Hypertension, Malignancy Patient has suicidal ideation: No Patient has homicidal ideation: No - Past Medical History Cardiac Medical History: Reports: Hx Congestive Heart Failure - EF is 40%, with moderate diastolic dysfunction, Hx DVT, Hx Heart Attack, Hx Hypercholesterolemia, Hx Hypertension, Hx Peripheral Vascular Disease, Hx Pulmonary Embolism Pulmonary Medical History: Reports: Hx Bronchitis, Hx COPD, Hx Pneumonia Denies: Hx Asthma Neurological Medical History: Denies: Hx Migraine, Hx Seizures Endocrine Medical History: Reports: Hx Diabetes Mellitus Type 2 - insulin dependentComment Only: Hx Diabetes Mellitus Type 1 - 1.5 Renal/ Medical History: Reports: Hx End Stage Renal Disease - on dialysis, Hx Renal Insufficiency. Denies: Hx Peritoneal Dialysis GI Medical History: Reports: Hx Gastroesophageal Reflux Disease Musculoskeletal Medical History: Reports Hx Arthritis, Reports Hx M usculoskeletal Deformity - double amputee, Reports Hx Musculoskeletal Trauma Skin Medical History: Denies Hx Eczema Psychiatric Medical History: Denies: Hx Depression Traumatic Medical History: Denies: Hx Traumatic Brain Injury Infectious Medical History: Reports: Hx HIV Past Surgical History: Reports: Hx Orthopedic Surgery - bilateral amputation, R BKA, L AKA, Hx Vascular Surgery - left arm clot removed, IVC filter, thrombectomy 05/18/2018 left arm, Other - Endoscopy; Vascular surgery. - Immunizations Immunizations up to date: Yes Hx Diphtheria, Pertussis, Tetanus Vaccination: Yes Hx Pneumococcal Vaccination: 07/21/10 Review of Systems - Review of Systems Constitutional: See HPI EENT: See HPI Cardiovascular: See HPI Respiratory: See HPI Gastrointestinal: No symptoms reported Genitourinary: No symptoms reported Male Genitourinary: No symptoms reported Musculoskeletal: No symptoms reported Skin: No symptoms reported Hematologic/Lymphatic: No symptoms reported Neurological/Psychological: No symptoms reported Physical Exam - Vital signs Vitals: Temp Resp BP Pulse Ox 97.9 F 20 181/107 H 94 07/15/18 04:04 07/15/18 04:04 07/15/18 04:04 07/15/18 04:04 - Notes Notes: GENERAL: Alert, interacts well. No acute distress. HEAD: Normocephalic, atraumatic. EYES: Pupils equal, round, and reactive to light. Extraocular movements intact. ENT: Oral mucosa moist, tongue midline. [Nares patent, no nasal septal hematoma, TM's intact.] NECK: Full range of motion. Supple. Trachea midline. LUNGS: Diminished to auscultation bilaterally, no distinct wheezes, rales, or rhonchi. No respiratory distress. HEART: Regular rate and rhythm. No murmur ABDOMEN: Soft, non-tender. Non-distended. Bowel sounds present in all 4 quadrants. EXTREMITIES: Moves all 4 extremities spontaneously. Patient is a bilateral leg amputee, right is below the knee, left is above the knee. BACK: no cervical, thoracic, lumbar midline tenderness. No saddle anesthesia, normal distal neurovascular exam. NEUROLOGICAL: Alert and oriented x3. Normal speech. cranial nerves II through XII grossly intact PSYCH: Normal affect, normal mood. SKIN: Warm, dry, normal turgor. No rashes or lesions noted. Course - Re-evaluation Re-evalutation: Patient's initial blood pressure was 221/111 was given 10 mg of labetalol by EMS. Patient denies headache, dizziness, lightheadedness, weakness. Discussed case with hospitalist Dr. Marin who states he will come down to see the patient in the emergency room. Patient labs did reveal hypocalcemia of 6.4 with Albumin of 3.9 and a total protein of 6.7, treated with 1 g of calcium gluconate. Patient's 12-lead shows a sinus rhythm at a rate of 95 with LVH and a prolonged QT at 523. No ST segment elevations or depressions noted. 07/15/18 07:14 Dr. Marin is requesting another serum calcium and ionized calcium after calcium gluconate in the emergency room. He states to recall the hospitalist at that time to discuss admission. Repeat calcium is 7.5 with an ionized calcium of 1.01. Discussed case with Dr. Schreiber who stated he will see the pt. Pt. report handed off to Dr. Villanueva for continued care. Hopeful admission via Dr. Schreiber. - Vital Signs Vital signs: Temp Pulse Resp BP Pulse Ox 97.9 F 22 H 179/104 H 98 07/15/18 04:04 07/15/18 07:06 07/15/18 07:06 07/15/18 07:06 - Laboratory Result Diagrams: 07/15/18 04:05 07/15/18 04:05 Laboratory results interpreted by me: 07/15/18 07/15/18 07/15/18 04:05 04:05 04:05 RBC 3.59 L Hgb 11.4 L Hct 33.7 L RDW 15.0 H PT VBG pCO2 27.0 L VBG HCO3 13.5 L Chloride 115 H Carbon Dioxide 13 L BUN 64 H Creatinine 9.27 H Est GFR ( Amer) 7 L Est GFR (Non-Af Amer) 6 L Calcium 6.4 L* Ionized Calcium Jane Direct Bilirubin 0.5 H AST 79 H Creatine Kinase 211 H NT-Pro-B Natriuret Pep 07/15/18 07/15/18 07/15/18 04:05 04:05 06:30 RBC Hgb Hct RDW PT 22.3 H VBG pCO2 VBG HCO3 Chloride Carbon Dioxide BUN Creatinine Est GFR ( Amer) Est GFR (Non-Af Amer) Calcium 7.5 L Ionized Calcium Jane Direct Bilirubin AST Creatine Kinase NT-Pro-B Natriuret Pep [id number] H 07/15/18 06:30 RBC Hgb Hct RDW PT VBG pCO2 VBG HCO3 Chloride Carbon Dioxide BUN Creatinine Est GFR ( Amer) Est GFR (Non-Af Amer) Calcium Ionized Calcium Jane 1.01 L Direct Bilirubin AST Creatine Kinase NT-Pro-B Natriuret Pep Discharge - Discharge Referrals: YOSHI JEAN-BAPTISTE NP [COMMUNITY BASED STAFF] - Follow up as needed
[2018-07-15 04:44] LABS: CREATINE KINASE MB 3.62 ng/mL (<4.55)
--- NOTE | 2018-07-15 04:47 | RADIOLOGY REPORT (SQ) ---
EXAM DESCRIPTION: XR CHEST 1 VIEW COMPLETED DATE/TME: 07/15/2018 04:12 CLINICAL HISTORY: 63 years, Male, shortness of breath and chest pain COMPARISON: 06/27/2018 chest NUMBER OF VIEWS: 1 TECHNIQUE: Portable upright chest LIMITATIONS: None. FINDINGS: Cardiomegaly. Osteopenia.. Mild interstitial edema. Tiny bibasilar effusions and/or pleural thickening. No pneumothorax. Surgical clips over the right hemithorax IMPRESSION: Cardiomegaly with interstitial edema and tiny bibasilar effusions and/or pleural thickening. copyright 2010 [employer]- All Rights Reserved
[2018-07-15] MEDS: NITROGLYCERIN 0.4 MG/TAB 25 TAB/BOTTLE SL PRN ×3 (04:48→05:01)
[2018-07-15 04:49] LABS: INTERNATIONAL RATION (INR) 1.86; PROTHROMBIN TIME 22.3 SEC (11.4-15.4)
[2018-07-15 04:55] LABS: CALCIUM 6.4 mg/dL (8.4-10.2); TROPONIN I 0.196 ng/mL
[2018-07-15 05:21] LABS: A TYPE INFLUENZA AG NEGATIVE (NEGATIVE)
[2018-07-15 05:22] LABS: B INFLUENZA AG NEGATIVE (NEGATIVE)
[2018-07-15] MEDS ORDERED: ACETAMINOPHEN 325 MG TABLET PO ONE (05:38)
[2018-07-15] MEDS ORDERED: CALCIUM GLUCONATE 1000 MG/10 ML INJ IV ONE (05:38)
[2018-07-15 07:02] LABS: ALBUMIN 3.6 g/dL (3.5-5.0); CALCIUM 7.5 mg/dL (8.4-10.2)
--- NOTE | 2018-07-15 08:38 | ER Document Report ---
Discharge - Discharge Clinical Impression: Hypocalcemia Hypertension Qualifiers: Hypertension type: unspecified Qualified Code(s): I10 - Essential (primary) hypertension Chest pain Qualifiers: Chest pain type: unspecified Qualified Code(s): R07.9 - Chest pain, unspecified Pulmonary edema Qualifiers: Chronicity: acute Qualified Code(s): J81.0 - Acute pulmonary edema Condition: Stable Disposition: ADMITTED INPATIENT Admitting Provider: Hospitalist Unit Admitted: Telemetry - [facility] Referrals: YOSHI JEAN-BAPTISTE NP [COMMUNITY BASED STAFF] - Follow up as needed
[2018-07-15] MEDS ORDERED: PROMETHAZINE HCL 25 MG TABLET PO PRN (09:09)
[2018-07-15] MEDS ORDERED: ACETAMINOPHEN 325 MG TABLET PO PRN (09:09)
[2018-07-15] MEDS ORDERED: (PENDING PHARMACY ID) (Oxycodone Hcl [Oxycodone Hcl] 5 MG) PO PRN (09:31)
[2018-07-15] MEDS ORDERED: ALBUTEROL SULFATE HFA (90 MCG/PUFF) 200 PUFF/8.5 GM MDI IH PRN (09:31)
[2018-07-15] MEDS ORDERED: (PENDING PHARMACY ID) (Dolutegravir Sodium [Tivicay] 50 MG) PO SCH (10:00)
[2018-07-15] MEDS ORDERED: (PENDING PHARMACY ID) (Calcitriol [Rocaltrol 0.5 Mcg Capsule] 0.5 MCG) PO SCH (10:00)
[2018-07-15] MEDS ORDERED: LAMIVUDINE PO SCH (10:00)
--- NOTE | 2018-07-15 10:10 | PDOC H&P ---
History of Present Illness Admission Date/PCP: 07/15/18 08:38 ARUN MORA Patient complains of: Nausea and vomiting. Shortness of breath. Cough History of Present Illness: KRISTY CANTU is a 63 year old male with a complex past medical history was fee ling short of breath and having chest discomfort and presented to the emergency room. He was just in the emergency room several weeks ago and diagnosed with bilateral pulmonary emboli. He has an end-stage kidney patient who undergoes hemodialysis on Friday, Friday and Friday. His blood pressure was elevated and he admits to cocaine use on Friday. He does have a cough but this is most likely from his congestive heart failure. He is afebrile and has no elevated white blood cell count. Serum calcium was low with an ionized calcium 1.01. Past Medical History Cardiac Medical History: Reports: Congestive Heart Failure - EF is 40%, with moderate diastolic dysfunction, DVT, Myocardial Infarction, Hyperlipidema, Hypertension, Peripheral Vascular Disease, Pulmonary Embolism Pulmonary Medical History: Reports: Bronchitis, Chronic Obstructive Pulmonary Disease (COPD), Pneumonia Denies: Asthma Neurological Medical History: Denies: Migraine, Seizures Endocrine Medical History: Reports: Diabetes Mellitus Type 2 - insulin dependent Comment Only: Diabetes Mellitus Type 1 - 1.5 Renal/ Medical History: Reports: End Stage Renal Disease - on dialysis GI Medical History: Reports: Gastroesophageal Reflux Disease Musculoskeltal Medical History: Reports: Arthritis Skin Medical History: Denies: Eczema Psychiatric Medical History: Denies: Depression Traumatic Medical History: Denies: Traumatic Brain Injury Hematology: Reports: Anemia Infectious Medical History: Reports: HIV Past Surgical History Past Surgical History: Reports: Orthopedic Surgery - bilateral amputation, R BKA, L AKA, Vascular Surgery - left arm clot removed, IVC filter, thrombectomy 05/18/2018 left arm, Other - Endoscopy; Vascular surgery. Social History Information Source: Patient Lives with: Alone Smoking Status: Current Every Day Smoker Frequency of Alcohol Use: None Hx Recreational Drug Use: Yes - Last used 07/11/2018 Drugs: Cocaine Hx Prescription Drug Abuse: No - Advance Directive Resuscitation Status: Full Code Family History Family History: CAD, CVA, DM, Hyperlipidemia, Hypertension, Malignancy Parental Family History Reviewed: Yes Children Family History Reviewed: Yes Sibling(s) Family History Reviewed.: Yes Medication/Allergy Home Medications: Amlodipine Besylate [Norvasc 10 mg Tablet] 10 mg PO DAILY 05/02/18 Apixaban [Eliquis] 2.5 mg PO Q12 05/02/18 Calcitriol [Rocaltrol 0.5 mcg Capsule] 0.5 mcg PO DAILY 05/02/18 Carvedilol [Coreg 12.5 mg Tablet] 12.5 mg PO Q12 05/02/18 Clonidine [Catapres-Tts 3 (0.3 mg/24 Hr) Transderm Patch] 1 patch TD GUTIÉRREZ@1000 05/02/18 Dolutegravir Sodium [Tivicay] 50 mg PO DAILY 05/02/18 Furosemide [Lasix 20 mg Tablet] 20 mg PO QAM 05/02/18 Isosorbide Mononitrate [Isosorbide Mononitrate ER] 60 mg PO DAILY 05/02/18 Lamivudine [Lamivudine Hbv] 5 mg PO DAILY 05/02/18 Sodium Polystyrene Sulfonate [Kayexalate 15 gm/60 ml Susp 60 ml] 15 gm PO DAILY 05/02/18 Acetaminophen [Tylenol 325 mg Tablet] 650 mg PO Q6HP PRN tablet 05/04/18 Albuterol Sulfate [Proair HFA Inhalation Aerosol 8.5 gm MDI] 2 puff IH Q6HP PRN 05/04/18 Amlodipine Besylate [Norvasc 10 mg Tablet] 10 mg PO DAILY tablet 05/04/18 Apixaban [Eliquis 2.5 mg Tablet] 2.5 mg PO Q12 tablet 05/04/18 Aspirin [Ecotrin 81 mg EC Tablet] 81 mg PO DAILY tabec 05/04/18 Beclomethasone Dipropionate [Qvar] 1 puff IH BID 05/04/18 Carvedilol [Coreg 12.5 mg Tablet] 25 mg PO Q12 tablet 05/04/18 Furosemide [Lasix 20 mg Tablet] 20 mg PO QAM tablet 05/04/18 Lisinopril [Prinivil 5 mg Tablet] 5 mg PO DAILY #30 tablet 05/04/18 Nicotine [Nicoderm 7 mg/24 Hr Transdermal Patch] 1 each TD DAILY #14 patch.td24 05/04/18 Azithromycin [Zithromax 250 mg Tablet] 250 mg PO ASDIR PRN #6 tablet 06/03/18 Hydrocodone/Acetaminophen [[place] 5-325 mg Tablet] 1 tab PO Q4HP PRN #10 tablet 11/14/18 Oxycodone HCl 5 mg PO Q6HP PRN #20 ml 06/27/18 Allergies/Adverse Reactions: calcitriol Allergy (Verified 06/27/18 16:11) itching Review of Systems Constitutional: PRESENT: fatigue, headache(s) Eyes: ABSENT: visual disturbances Ears: ABSENT: hearing changes Nose, Mouth, and Throat: ABSENT: mouth pain, sore throat Cardiovascular: PRESENT: chest pain, dyspnea on exertion. ABSENT: palpitations Respiratory: PRESENT: cough Gastrointestinal: PRESENT: nausea Genitourinary: ABSENT: dysuria, hematuria Musculoskeletal: PRESENT: other - Bilateral lower extremity amputee Neurological: ABSENT: abnormal movements, abnormal speech, confusion Psychiatric: PRESENT: depression Endocrine: ABSENT: cold intolerance, heat intolerance Hematologic/Lymphatic: ABSENT: easy bleeding, easy bruising Allergic/Immunologic: ABSENT: seasonal rhinorrhea Physical Exam Vital Signs: Temp Pulse Resp BP Pulse Ox 97.6 F 99 24 H 171/89 H 97 07/15/18 09:46 07/15/18 09:46 07/15/18 09:46 07/15/18 09:46 07/15/18 09:46 Intake & Output 07/14/18 07/15/18 07/16/18 06:59 06:59 06:59 Weight 69.4 kg 72.9 kg General appearance: PRESENT: no acute distress, cooperative, well-developed Head exam: PRESENT: atraumatic, normocephalic Eye exam: PRESENT: conjunctiva pink. ABSENT: conjunctival injection, scleral icterus Ear exam: PRESENT: normal external ear exam Mouth exam: PRESENT: moist, tongue midline Neck exam: PRESENT: other - Lipoma left occipital area Respiratory exam: PRESENT: crackles, symmetrical, unlabored. ABSENT: accessory muscle use, rhonchi, wheezes Cardiovascular exam: PRESENT: RRR, +S1, +S2 GI/Abdominal exam: PRESENT: normal bowel sounds, soft. ABSENT: tenderness Extremities exam: PRESENT: other - Bilateral lower extremity amputee Musculoskeletal exam: ABSENT: normal inspection Neurological exam: PRESENT: alert, awake, oriented to person, oriented to place, oriented to time, oriented to situation, CN II-XII grossly intact Psychiatric exam: PRESENT: appropriate affect. ABSENT: agitated, anxious Focused psych exam: ABSENT: restlessness Skin exam: PRESENT: other - Multiple scars. AV fistula left forearm. Results Laboratory Results: 07/15/18 04:05 07/15/18 04:05 07/15/18 07/15/18 07/15/18 04:05 04:05 04:05 WBC 8.8 RBC 3.59 L Hgb 11.4 L Hct 33.7 L MCV 94 MCH 31.8 MCHC 33.9 RDW 15.0 H Plt Count 212 Seg Neutrophils % 66.1 Lymphocytes % 22.0 Monocytes % 7.2 Eosinophils % 3.6 Basophils % 1.1 Absolute Neutrophils 5.8 Absolute Lymphocytes 1.9 Absolute Monocytes 0.6 Absolute Eosinophils 0.3 Absolute Basophils 0.1 VBG pH 7.32 VBG pCO2 27.0 L VBG HCO3 13.5 L VBG Base Excess -11.1 Sodium 143.6 Potassium 4.3 Chloride 115 H Carbon Dioxide 13 L Anion Gap 16 BUN 64 H Creatinine 9.27 H Est GFR ( Amer) 7 L Est GFR (Non-Af Amer) 6 L Glucose 94 Calcium 6.4 L* Ionized Calcium Jane Total Bilirubin 0.5 AST 79 H ALT 66 Alkaline Phosphatase 92 Total Protein 6.7 Albumin 3.9 07/15/18 07/15/18 06:30 06:30 WBC RBC Hgb Hct MCV MCH MCHC RDW Plt Count Seg Neutrophils % Lymphocytes % Monocytes % Eosinophils % Basophils % Absolute Neutrophils Absolute Lymphocytes Absolute Monocytes Absolute Eosinophils Absolute Basophils VBG pH VBG pCO2 VBG HCO3 VBG Base Excess Sodium Potassium Chloride Carbon Dioxide Anion Gap BUN Creatinine Est GFR ( Amer) Est GFR (Non-Af Amer) Glucose Calcium 7.5 L Ionized Calcium Jane 1.01 L Total Bilirubin AST ALT Alkaline Phosphatase Total Protein Albumin 3.6 07/15/18 07/15/18 07/15/18 04:05 04:05 04:05 Creatine Kinase 211 H CK-MB (CK-2) 3.62 Troponin I 0.196 NT-Pro-B Natriuret Pep [id number] H 07/15/18 07/15/18 04:48 06:30 Creatine Kinase CK-MB (CK-2) Troponin I Cancelled 0.184 NT-Pro-B Natriuret Pep Impressions: Chest X-Ray 07/15/18 04:12 IMPRESSION: Cardiomegaly with interstitial edema and tiny bibasilar effusions and/or pleural thickening. copyright 2011 [employer]- All Rights Reserved Assessment & Plan - Diagnosis (1) Chronic kidney disease requiring chronic dialysis Is this a current diagnosis for this admission?: Yes Plan: Today as a scheduled day for the patient's hemodialysis. Because of his blood pressure and low calcium levels he will be admitted to observation status and undergo hemodialysis later today. (2) Hypertension Qualifiers: Hypertension type: unspecified Qualified Code(s): I10 - Essential (primary) hypertension Is this a current diagnosis for this admission?: Yes Plan: We will continue his current medication regimen. We will continue to monitor his blood pressure. We will adjust medications if clinically indicated. Compliance has been an issue in the past. We will need to monitor for low blood pressure by continue his current regimen if he has not been taking his medications. (3) Hypocalcemia Is this a current diagnosis for this admission?: Yes Plan: He was given 1 g of calcium gluconate in the emergency room. He does admit that he is supposed to be on calcium supplement at home that she does not take. (4) Acute on chronic combined systolic and diastolic heart failure Is this a current diagnosis for this admission?: Yes Plan: He is on furosemide daily. He does make urine and with dialysis today this should resolve some of his failure issues (5) HIV (human immunodeficiency virus infection) Is this a current diagnosis for this admission?: Yes Plan: Continue current medications (6) Substance abuse, continuous Is this a current diagnosis for this admission?: Yes Plan: Continue to encourage cessation (7) Hx pulmonary embolism Is this a current diagnosis for this admission?: Yes Plan: Continue chronic anticoagulation - Time Time Spent: Greater than 70 Minutes Smoking Cessation Education: 3 to 10 minutes Medications reviewed and adjusted accordingly: Yes Anticipated discharge: Home Within: within 24 hours
[2018-07-15] MEDS: NICOTINE 7 MG/24 HR PATCH.TD24 TD SCH (10:37)
[2018-07-15] MEDS: LISINOPRIL 5 MG TABLET PO SCH (10:38)
[2018-07-15] MEDS: AMLODIPINE BESYLATE 10 MG TABLET PO SCH (10:38)
[2018-07-15] MEDS: ASPIRIN 81 MG TABLET, ENT COATED PO SCH (10:39)
[2018-07-15] MEDS: CALCIUM CARBONATE 500 MG TABLET PO SCH ×2 (10:39→18:36)
[2018-07-15] MEDS: CARVEDILOL 12.5 MG TABLET PO SCH ×2 (10:39→21:47)
[2018-07-15] MEDS: APIXABAN 2.5 MG TABLET PO SCH ×2 (10:39→21:47)
[2018-07-15] MEDS: ISOSORBIDE MONONITRATE 30 MG TAB.ER.24H PO SCH (10:39)
--- NOTE | 2018-07-15 13:11 | EKG REPORT ---
SEVERITY:- ABNORMAL ECG - SINUS RHYTHM VENTRICULAR PREMATURE COMPLEX PROBABLE LEFT ATRIAL ABNORMALITY LEFT AXIS DEVIATION LVH WITH SECONDARY REPOLARIZATION ABNORMALITY PROLONGED QT INTERVAL : Confirmed by: Beulah Storm 15-Jul-2018 13:10:46
--- NOTE | 2018-07-15 13:53 | PDOC CONSULTATION ---
Consultation Consult Date: 07/15/18 Consult reason:: ESRD for HD. History of Present Illness Admission Date/PCP: 07/15/18 08:38 ARUN MORA History of Present Illness: KRISTY CANTU is a 63 year old male with past medical history of ESRD on HD, Hypertension, cociane addiction, PVD was admitted with pogressive shortness of breath since yesterday leading to orthopnea early this AM and having chest discomfort. He was just in the emergency room several weeks ago and diagnosed with bilateral pulmonary emboli. He has an end-stage kidney patient who undergoes hemodialysis on Friday, Friday and Friday. His last HD was friday and then missed HD on Friday. Unfortunately he is known to be non compliant with dialysis treatments, medications and coupled with his addiction to cocaine makes him highly vulnerable to life shortening consequences. His blood pressure was severely elevated and he admits to cocaine use on Friday. Evaluations reveals he is in CHF.His labs and medications were reviewed with him.He is being seen on HD now. Past Medical History Cardiac Medical History: Reports: CHF-Diastolic, DVT, Hyperlipidemia, Hypertension-primary, Myocardial Infarction, Peripheral Vascular Disease, Pulmonary Embolism Pulmonary Medical History: Reports: Bronchitis, Chronic Obstructive Pulmonary Disease (COPD), Pneumonia Denies: Asthma Neurological Medical History: Denies: Migraine, Seizures Endocrine Medical History: Reports: Diabetes Mellitus Type 2 - insulin dependent Comment Only: Diabetes Mellitus Type 1 - 1.5 Renal/ Medical History: Reports: End Stage Renal Disease - on dialysis, Hyperphosphatemia, Metabolic Acidosis, Secondary Hyperparathyroidism GI Medical History: Reports: Gastroesophageal Reflux Disease Musculoskeltal Medical History: Reports: Arthritis Skin Medical History: Denies: Eczema Psychiatric Medical History: Denies: Depression Traumatic Medical History: Denies: Traumatic Brain Injury Infectious Medical History: Reports: HIV Hematology Medical History: Reports Anemia of Chronic Kidney Disease Past Surgical History Past Surgical History: Reports: Orthopedic Surgery - bilateral amputation, R BKA, L AKA, Vascular Surgery - left arm clot removed, IVC filter, thrombectomy 05/18/2018 left arm, Other - Endoscopy; Vascular surgery. Social History Lives with: Alone Smoking Status: Current Every Day Smoker Cigarettes Packs Per Day: 1 Number of Years Smokin Last Time Smoked: 07/14/18 Frequency of Alcohol Use: None Hx Recreational Drug Use: Yes - Last used 07/11/2018 Drugs: Cocaine Hx Prescription Drug Abuse: No - Advance Directive Resuscitation Status: Full Code Family History Parental Family History Reviewed: Yes - Negative for ESRD Children Family History Reviewed: No Sibling(s) Family History Reviewed.: No Medication/Allergy Home Medications: Abacavir Sulfate [Abacavir 300 mg Tablet] 600 mg PO DAILY 07/15/18 Clonidine [Catapres-Tts 3 (0.3 mg/24 Hr) Transderm Patch] 1 patch TD GUTIÉRREZ@1000 07/15/18 Dolutegravir Sodium [Tivicay] 50 mg PO DAILY 07/15/18 Furosemide [Lasix 80 mg Tablet] 80 mg PO DAILY 07/15/18 Isosorbide Mononitrate [Isosorbide Mononitrate ER] 120 mg PO DAILY 07/15/18 Nicotine [Nicoderm 14 mg/24 Hr Transdermal Patch] 1 patch TD DAILYP PRN 07/15/18 Nicotine [Nicoderm 7 mg/24 Hr Transdermal Patch] 1 patch TD DAILYP PRN 07/15/18 Nitroglycerin [Nitrostat 0.4 mg (1/150 Gr) Tabs 25/Bottle] 1 tab SL Q5MP PRN 07/15/18 RX: Hydralazine HCl 100 mg PO Q8 07/15/18 Warfarin Sodium [Coumadin 5 mg Tablet] 5 mg PO DAILY 07/15/18 Allergies/Adverse Reactions: calcitriol Allergy (Verified 06/27/18 16:11) itching Review of Systems Constitutional: PRESENT: fatigue. ABSENT: fever(s) Nose, Mouth, and Throat: ABSENT: mouth pain, sore throat Cardiovascular: PRESENT: dyspnea on exertion. ABSENT: chest pain, edema, orthropnea, palpitations Gastrointestinal: ABSENT: diarrhea, dysphagia, heartburn, hematemesis, hematochezia Genitourinary: ABSENT: dysuria, hematuria Integumentary: ABSENT: erythema, pruritus, rash Neurological: ABSENT: abnormal gait, abnormal speech, confusion, convulsions, focal weakness Hematologic/Lymphatic: ABSENT: easy bruising, lymphadenopathy Physical Exam Vital Signs: Temp Pulse Resp BP Pulse Ox 97.6 F 99 24 H 171/89 H 97 07/15/18 09:46 07/15/18 09:46 07/15/18 09:46 07/15/18 09:46 07/15/18 09:46 Intake & Output 07/14/18 07/15/18 07/16/18 06:59 06:59 06:59 Weight 69.4 kg 72.9 kg General appearance: PRESENT: no acute distress Eye exam: PRESENT: EOMI, PERRLA Mouth exam: PRESENT: moist, neck supple Neck exam: ABSENT: lymphadenopathy, meningismus, tenderness, thyromegaly, tracheal deviation Respiratory exam: PRESENT: clear to auscultation ramila, crackles, decreased breath sounds, tachypnea Cardiovascular exam: PRESENT: +S1, +S2 GI/Abdominal exam: PRESENT: normal bowel sounds, soft. ABSENT: organomegaly, tenderness Extremities exam: PRESENT: pedal edema Neurological exam: PRESENT: alert, awake, oriented to person, oriented to place Skin exam: ABSENT: erythema, mottled, rash Results Laboratory Results: 07/15/18 04:05 07/15/18 04:05 07/15/18 07/15/18 07/15/18 04:05 04:05 04:05 WBC 8.8 RBC 3.59 L Hgb 11.4 L Hct 33.7 L MCV 94 MCH 31.8 MCHC 33.9 RDW 15.0 H Plt Count 212 Seg Neutrophils % 66.1 Lymphocytes % 22.0 Monocytes % 7.2 Eosinophils % 3.6 Basophils % 1.1 Absolute Neutrophils 5.8 Absolute Lymphocytes 1.9 Absolute Monocytes 0.6 Absolute Eosinophils 0.3 Absolute Basophils 0.1 VBG pH 7.32 VBG pCO2 27.0 L VBG HCO3 13.5 L VBG Base Excess -11.1 Sodium 143.6 Potassium 4.3 Chloride 115 H Carbon Dioxide 13 L Anion Gap 16 BUN 64 H Creatinine 9.27 H Est GFR ( Amer) 7 L Est GFR (Non-Af Amer) 6 L Glucose 94 Calcium 6.4 L* Ionized Calcium Jane Total Bilirubin 0.5 AST 79 H ALT 66 Alkaline Phosphatase 92 Total Protein 6.7 Albumin 3.9 07/15/18 07/15/18 06:30 06:30 WBC RBC Hgb Hct MCV MCH MCHC RDW Plt Count Seg Neutrophils % Lymphocytes % Monocytes % Eosinophils % Basophils % Absolute Neutrophils Absolute Lymphocytes Absolute Monocytes Absolute Eosinophils Absolute Basophils VBG pH VBG pCO2 VBG HCO3 VBG Base Excess Sodium Potassium Chloride Carbon Dioxide Anion Gap BUN Creatinine Est GFR ( Amer) Est GFR (Non-Af Amer) Glucose Calcium 7.5 L Ionized Calcium Jane 1.01 L Total Bilirubin AST ALT Alkaline Phosphatase Total Protein Albumin 3.6 07/15/18 07/15/18 07/15/18 04:05 04:05 04:05 Creatine Kinase 211 H CK-MB (CK-2) 3.62 Troponin I 0.196 NT-Pro-B Natriuret Pep [id number] H 07/15/18 07/15/18 04:48 06:30 Creatine Kinase CK-MB (CK-2) Troponin I Cancelled 0.184 NT-Pro-B Natriuret Pep Impressions: Chest X-Ray 07/15/18 04:12 IMPRESSION: Cardiomegaly with interstitial edema and tiny bibasilar effusions and/or pleural thickening. copyright 2011 [employer]- All Rights Reserved Assessment & Plan - Diagnosis (1) Acute on chronic combined systolic and diastolic heart failure Is this a current diagnosis for this admission?: Yes Plan: Patient is in overt congestive heart failure. He presents with malignant hypertension and congestive heart failure because of noncompliance with his medications, dialysis treatments and usage of cocaine.He should respond to dialysis which has been instituted. We discussed the implications of the above especially the noncompliance issues. (2) ESRD needing dialysis Plan: Patient presenting with malignant hypertension and overt congestive heart failure requiring urgent hemodialysis which has been instituted. We discussed these issues at length about compliance issues. He is undergoing dialysis currently without any issues which is being supervised to ensure safe and smooth procedure. Vital signs are stable though blood pressure is high plan to remove approximately 5 L. Discuss orders with the treating dialysis nurse. (3) Hypocalcemia Is this a current diagnosis for this admission?: Yes Plan: Replace and monitor. (4) Hx pulmonary embolism Is this a current diagnosis for this admission?: Yes Plan: On anticoagulants. Discussed compliance with his medications for noncompliance can lead to fatal consequences. (5) HIV (human immunodeficiency virus infection) Is this a current diagnosis for this admission?: Yes Plan: As per hospitalist. Patient on appropriate medications. (6) Metabolic acidosis Plan: Patient has missed his last hemodialysis treatments. Should respond to current hemodialysis treatments. (7) Substance abuse, continuous Is this a current diagnosis for this admission?: Yes Plan: Discussed stopping his cocaine addiction. Many such advices in the past few years has fell on deaf years unfortunately. (8) Hypertensive urgency Plan: Presenting as overt congestive heart failure. Patient has been instituted on medications and now being started on dialysis should hopefully see the response.
[2018-07-15] MEDS ORDERED: OXYCODONE HCL IR 5 MG TABLET PO PRN (14:27)
[2018-07-15] MEDS: CALCITRIOL 0.25 MCG CAPSULE PO SCH (18:38)
[2018-07-16 06:19] LABS: ABSOLUTE BASOPHILS # (AUTO) 0.1 10^3/uL (0.0-0.2); ABSOLUTE EOSINOPHILS # (AUTO) 0.5 10^3/uL (0.0-0.6); ABSOLUTE MONOCYTES (AUTO) 0.7 10^3/uL (0.1-1.4); ABSOLUTE NEUT (AUTO) 3.3 10^3/uL (1.7-8.2); BASOPHILS % (AUTO) 0.9 % (0-2); EOSINOPHILS % (AUTO) 7.7 % (0-6); LYMPHOCYTES % (AUTO) 30.3 % (13-45); MEAN CORPUSCULAR HEMOGLOBIN 32.2 pg (27.0-33.4); MEAN CORPUSCULAR HGB CONC 34.4 g/dL (32.0-36.0); MEAN CORPUSCULAR VOLUME 94 fl (80-97); MONOCYTES % (AUTO) 10.7 % (3-13); PLATELET COUNT 195 10^3/uL (150-450); RED BLOOD COUNT 3.74 10^6/uL (4.35-5.55); RED CELL DISTRIBUTION WIDTH 14.9 % (11.5-14.0); SEGMENTED NEUTROPHILS % (AUTO) 50.4 % (42-78); TOTAL CELLS COUNTED % (AUTO) 100 %; WHITE BLOOD COUNT 6.5 10^3/uL (4.0-10.5)
[2018-07-16 06:39] LABS: ALBUMIN 3.9 g/dL (3.5-5.0); ANION GAP 13 (5-19); BLOOD UREA NITROGEN 34 mg/dL (7-20); CALCIUM 8.2 mg/dL (8.4-10.2); CARBON DIOXIDE 27 mmol/L (22-30); CHLORIDE 102 mmol/L (98-107); GLUCOSE 93 mg/dL (75-110); PHOSPHORUS 4.3 mg/dL (2.5-4.5); POTASSIUM 3.6 mmol/L (3.6-5.0); SODIUM 141.5 mmol/L (137-145)
[2018-07-16] MEDS ORDERED: FUROSEMIDE 20 MG TABLET PO SCH (08:00)
[2018-07-16] MEDS: ASPIRIN 81 MG TABLET, ENT COATED PO SCH (10:07)
[2018-07-16] MEDS: CALCITRIOL 0.25 MCG CAPSULE PO SCH ×2 (10:07→10:15)
[2018-07-16] MEDS: CALCIUM CARBONATE 500 MG TABLET PO SCH (10:07)
[2018-07-16] MEDS: CARVEDILOL 12.5 MG TABLET PO SCH (10:08)
[2018-07-16] MEDS: APIXABAN 2.5 MG TABLET PO SCH (10:08)
[2018-07-16] MEDS: AMLODIPINE BESYLATE 10 MG TABLET PO SCH (10:08)
[2018-07-16] MEDS: ISOSORBIDE MONONITRATE 30 MG TAB.ER.24H PO SCH (10:08)
[2018-07-16] MEDS: NICOTINE 7 MG/24 HR PATCH.TD24 TD SCH (10:09)
[2018-07-16] MEDS: LISINOPRIL 5 MG TABLET PO SCH (10:10)
[2018-07-16 16:16] VITALS: BP 147/62
[2018-07-19] MEDS ORDERED: CLONIDINE 0.3 MG/24 HR PATCH.TDWK TD SCH (10:00)
--- NOTE | 2018-07-20 08:55 | PDOC DISCHARGE SUMMARY ---
General - Admit/Disc Date/PCP Admission Date/Primary Care Provider: 07/15/18 08:38 ARUN MORA Discharge Date: 07/16/18 - Discharge Diagnosis (1) Hypocalcemia Is this a current diagnosis for this admission?: Yes (2) Chronic kidney disease requiring chronic dialysis Is this a current diagnosis for this admission?: Yes (3) Acute on chronic combined systolic and diastolic heart failure Is this a current diagnosis for this admission?: Yes (4) HIV (human immunodeficiency virus infection) Is this a current diagnosis for this admission?: Yes (5) Hx pulmonary embolism Is this a current diagnosis for this admission?: Yes (6) Hypertension Is this a current diagnosis for this admission?: Yes (7) Substance abuse, continuous Is this a current diagnosis for this admission?: Yes - Additional Information Resuscitation Status: Full Code Discharge Diet: Cardiac Discharge Activity: Activity As Tolerated, Balance Activity w/Rest, Weigh Daily Home Medications: Abacavir Sulfate [Abacavir 300 mg Tablet] 600 mg PO DAILY 07/15/18 Clonidine [Catapres-Tts 3 (0.3 mg/24 Hr) Transderm Patch] 1 patch TD GUTIÉRREZ@1000 07/15/18 Dolutegravir Sodium [Tivicay] 50 mg PO DAILY 07/15/18 Furosemide [Lasix 80 mg Tablet] 80 mg PO DAILY 07/15/18 Hydralazine HCl 100 mg PO Q8 07/15/18 Isosorbide Mononitrate [Isosorbide Mononitrate ER] 120 mg PO DAILY 07/15/18 Nicotine [Nicoderm 14 mg/24 Hr Transdermal Patch] 1 patch TD DAILYP PRN 07/15/18 Nicotine [Nicoderm 7 mg/24 Hr Transdermal Patch] 1 patch TD DAILYP PRN 07/15/18 Nitroglycerin [Nitrostat 0.4 mg (1/150 Gr) Tabs 25/Bottle] 1 tab SL Q5MP PRN 07/15/18 Warfarin Sodium [Coumadin 5 mg Tablet] 5 mg PO DAILY 07/15/18 History of Present Illness History of Present Illness: Patient was admitted after presentation as in HPI below: "KRISTY CANTU is a 63 year old male with a complex past medical history was feeling short of breath and having chest discomfort and presented to the emergency room. He was just in the emergency room several weeks ago and diagnosed with bilateral pulmonary emboli. He has an end-stage kidney patient who undergoes hemodialysis on Friday, Friday and Friday. His blood pressure was elevated and he admits to cocaine use on Friday. He does have a cough but this is most likely from his congestive heart failure. He is afebrile and has no elevated white blood cell count. Serum calcium was low with an ionized calcium 1.01." Physical Exam Vital Signs: Temp Pulse Resp BP Pulse Ox 98.1 F 85 16 120/59 L 92 07/16/18 12:23 07/16/18 12:23 07/16/18 12:23 07/16/18 12:23 07/16/18 12:23 Intake & Output 07/15/18 07/16/18 07/17/18 06:59 06:59 06:59 Intake Total 350 Output Total 4850 Balance -4500 Weight 69.4 kg 72.8 kg General appearance: PRESENT: no acute distress, cooperative, well-developed Head exam: PRESENT: atraumatic, normocephalic Neck exam: PRESENT: other - Lipoma left occipital area Respiratory exam: PRESENT: Clear bilaterally, symmetrical, unlabored. ABSENT: accessory muscle use, rhonchi, wheezes Cardiovascular exam: PRESENT: RRR, +S1, +S2 GI/Abdominal exam: PRESENT: normal bowel sounds, soft. ABSENT: tenderness Extremities exam: PRESENT: other - Bilateral lower extremity amputee Musculoskeletal exam: ABSENT: normal inspection Neurological exam: PRESENT: alert, awake, oriented to person, oriented to place, oriented to time, oriented to situation, CN II-XII grossly intact Psychiatric exam: PRESENT: appropriate affect. ABSENT: agitated, anxious Focused psych exam: ABSENT: restlessness Skin exam: PRESENT: other - Multiple scars. AV fistula left forearm. Results Laboratory Results: 07/16/18 05:30 07/16/18 05:30 07/16/18 07/16/18 05:30 05:30 WBC 6.5 RBC 3.74 L Hgb 12.0 L Hct 35.0 L MCV 94 MCH 32.2 MCHC 34.4 RDW 14.9 H Plt Count 195 Seg Neutrophils % 50.4 Lymphocytes % 30.3 Monocytes % 10.7 Eosinophils % 7.7 H Basophils % 0.9 Absolute Neutrophils 3.3 Absolute Lymphocytes 2.0 Absolute Monocytes 0.7 Absolute Eosinophils 0.5 Absolute Basophils 0.1 Sodium 141.5 Potassium 3.6 Chloride 102 Carbon Dioxide 27 Anion Gap 13 BUN 34 H Creatinine 5.80 H Est GFR ( Amer) 12 L Est GFR (Non-Af Amer) 10 L Glucose 93 Calcium 8.2 L Phosphorus 4.3 Magnesium 2.0 Albumin 3.9 07/15/18 07/15/18 07/15/18 04:05 04:05 04:05 Creatine Kinase 211 H CK-MB (CK-2) 3.62 Troponin I 0.196 NT-Pro-B Natriuret Pep 44068 H 07/15/18 07/15/18 04:48 06:30 Creatine Kinase CK-MB (CK-2) Troponin I Cancelled 0.184 NT-Pro-B Natriuret Pep Impressions: Chest X-Ray 07/15/18 04:12 IMPRESSION: Cardiomegaly with interstitial edema and tiny bibasilar effusions and/or pleural thickening. copyright 2010 [employer].- All Rights Reserved Qualifiers - * PATIENT BEING DISCHARGED WITH ANY OF THE FOLLOWING DIAGNOSIS: No Plan Discharge Plan: (1) Chronic kidney disease requiring chronic dialysis Is this a current diagnosis for this admission?: Yes Plan: Because of his blood pressure and low calcium levels he was admitted to observation status and had hemodialysis, which helped his blood pressure and calcium. (2) Hypertension Qualifiers: Hypertension type: unspecified Qualified Code(s): I10 - Essential (primary) hypertension Is this a current diagnosis for this admission?: Yes Plan: He wasl continued on his medication regimen. Compliance has been an issue in the past. He was counseled on the importance of taking his medications. (3) Hypocalcemia Is this a current diagnosis for this admission?: Yes Plan: He was given 1 g of calcium gluconate in the emergency room. He admitted that he is supposed to be on calcium supplement at home but that he does not take. He was counseled about compliance with his medications. (4) Acute on chronic combined systolic and diastolic heart failure Is this a current diagnosis for this admission?: Yes Plan: He had dialysis which resolved some of his failure issues. (5) HIV (human immunodeficiency virus infection) Is this a current diagnosis for this admission?: Yes Plan: Continued on his home medications (6) Substance abuse, continuous Is this a current diagnosis for this admission?: Yes Plan: Continued to encourage cessation. He is not interested in rehab at this time, states that he can stop and plans to. States he will go to outpatient programs if he feels he needs it. (7) Hx pulmonary embolism Is this a current diagnosis for this admission?: Yes Plan: Continue anticoagulation. Disposition: Patient is being discharged in stable condition. He is to follow-up with his PCP within 1 week. He is also to continue to follow-up with nephrology and dialysis clinics. Time Spent: Greater than 30 Minutes
== END 2018-07-16 15:30 | disposition home or self-care (01) ==
LOC: ER 04:00 → INTOOBSV 08:38 → EH 08:38 → 4N 09:30
PROVIDERS: ADMIT Hospitalist; ATTEND Hospitalist
PROC: HZ31ZZZ Individual Counseling for Substance Abuse Treatment, Behavioral (ICD-10-PCS; principal; 2018-07-15)
PROC: 5A1D70Z Performance of Urinary Filtration, Intermittent, Less than 6 Hours Per Day (ICD-10-PCS; 2018-07-15)
DX: E83.51 Hypocalcemia (principal); I13.2 Hypertensive heart and chronic kidney disease with heart failure and with stage 5 chronic kidney disease, or end stage renal disease; E11.22 Type 2 diabetes mellitus with diabetic chronic kidney disease; N18.6 End stage renal disease; I50.43 Acute on chronic combined systolic (congestive) and diastolic (congestive) heart failure; B20 Human immunodeficiency virus [HIV] disease; F19.10 Other psychoactive substance abuse, uncomplicated; R05 Cough; E11.51 Type 2 diabetes mellitus with diabetic peripheral angiopathy without gangrene; D17.79 Benign lipomatous neoplasm of other sites; F14.10 Cocaine abuse, uncomplicated; F17.210 Nicotine dependence, cigarettes, uncomplicated; E87.2 Acidosis; F32.9 Major depressive disorder, single episode, unspecified; Z91.14 Patient's other noncompliance with medication regimen; Z99.2 Dependence on renal dialysis; Z86.711 Personal history of pulmonary embolism; Z79.899 Other long term (current) drug therapy; Z79.01 Long term (current) use of anticoagulants; Z86.718 Personal history of other venous thrombosis and embolism; Z79.4 Long term (current) use of insulin; Z89.511 Acquired absence of right leg below knee; Z89.612 Acquired absence of left leg above knee; Z91.15 Patient's noncompliance with renal dialysis; Z82.49 Family history of ischemic heart disease and other diseases of the circulatory system
CPT/HCPCS: 99406; G0257; 36415; 71045; 80053; 80069; 82040; 82310; 82330; 82550; 82553; 82803; 83735; 83880; 84484; 85025; 85610; 87804; 93005; 93010; 96374; 99285; J0610; J3490

== ENCOUNTER 2018-07-27 06:13 | Emergency (ER) | payer MEDICARE, MEDICAID ==
[2018-07-27 06:38] LABS: ABSOLUTE BASOPHILS # (AUTO) 0.1 10^3/uL (0.0-0.2); ABSOLUTE EOSINOPHILS # (AUTO) 0.3 10^3/uL (0.0-0.6); ABSOLUTE LYMPHOCYTES (AUTO) 2.4 10^3/uL (0.5-4.7); ABSOLUTE MONOCYTES (AUTO) 0.5 10^3/uL (0.1-1.4); ABSOLUTE NEUT (AUTO) 4.8 10^3/uL (1.7-8.2); EOSINOPHILS % (AUTO) 4.1 % (0-6); HEMATOCRIT 33.1 % (37.9-51.0); HEMOGLOBIN 11.1 g/dL (13.5-17.0); LYMPHOCYTES % (AUTO) 29.3 % (13-45); MEAN CORPUSCULAR HEMOGLOBIN 31.7 pg (27.0-33.4); MEAN CORPUSCULAR HGB CONC 33.4 g/dL (32.0-36.0); MEAN CORPUSCULAR VOLUME 95 fl (80-97); MONOCYTES % (AUTO) 6.5 % (3-13); PLATELET COUNT 189 10^3/uL (150-450); RED BLOOD COUNT 3.49 10^6/uL (4.35-5.55); RED CELL DISTRIBUTION WIDTH 14.3 % (11.5-14.0); SEGMENTED NEUTROPHILS % (AUTO) 59.1 % (42-78); TOTAL CELLS COUNTED % (AUTO) 100 %; WHITE BLOOD COUNT 8.1 10^3/uL (4.0-10.5)
[2018-07-27 06:56] LABS: ALANINE AMINOTRANSFERASE 38 U/L (21-72); ALBUMIN 3.8 g/dL (3.5-5.0); ALKALINE PHOSPHATASE 81 U/L (38-126); ANION GAP 14 (5-19); ASPARTATE AMINO TRANSFERASE 65 U/L (17-59); BILIRUBIN,DIRECT 0.6 mg/dL (0.0-0.4); BILIRUBIN,TOTAL 0.6 mg/dL (0.2-1.3); BLOOD UREA NITROGEN 56 mg/dL (7-20); CALCIUM 7.7 mg/dL (8.4-10.2); CARBON DIOXIDE 17 mmol/L (22-30); CHLORIDE 110 mmol/L (98-107); GLUCOSE 97 mg/dL (75-110); SODIUM 140.9 mmol/L (137-145)
--- NOTE | 2018-07-27 07:14 | RADIOLOGY REPORT (SQ) ---
EXAM DESCRIPTION: XR CHEST 1 VIEW COMPLETED DATE/TME: 07/27/2018 06:28 CLINICAL HISTORY: 63 years Male, difficulty breathing COMPARISON: July 15, 2018 NUMBER OF VIEWS/TECHNIQUE: 1/AP FINDINGS: Mild interstitial markings, and normal cardiac silhouette. Right upper thoracic clips.Atherosclerotic vascular disease. No pneumothorax. Stable bony thorax. IMPRESSION: No significant change.
--- NOTE | 2018-07-27 07:17 | ER Document Report ---
ED General - General Chief Complaint: Shortness Of Breath Stated Complaint: SHORTNESS OF BREATH Time Seen by Provider: 07/27/18 06:55 Mode of Arrival: Medic Information source: Patient, Emergency Med Personnel, [facility] Records Notes: This 63-year-old male patient past history of HIV, diabetes, hypertension, chronic renal failure on dialysis, prior DVTs and possible PE. He reports he became short of breath at 4:00 this morning, did a breathing treatment before coming in. At this time his room air pulse ox is 99%. He also complains of stiffness in his neck and cramping causing a headache. That has been a complaint in the past. He also complains of tightness in his chest. He is supposed to be at dialysis at noon today. At one time in the past she was on Eliquis, I began asking him about that and he states that he is taking it, but he ran out because his doctor increased his dose. On reviewing the medicines in his bag it appears he is not on Eliquis but is on Coumadin and the Coumadin was the medication that was increased. He states he was on 5 mg a day and they increased him to 10 and then to 15 mg. He states he did take 15 mg yesterday morning at 7 AM, and that was the last of his medicine and there are no refills left on the bottle. Primary care provider is Cindy DIAS. Patient does continue to be a heavy smoker and periodically uses cocaine. TRAVEL OUTSIDE OF THE [place] IN LAST 30 DAYS: No - Related Data Allergies/Adverse Reactions: calcitriol Allergy (Verified 07/27/18 06:39) itching Past Medical History - General Information source: Patient, Emergency Med Personnel, [facility] Records - Social History Smoking Status: Current Every Day Smoker Cigarette use (# per day): Yes Frequency of alcohol use: None Drug Abuse: Cocaine Lives with: Friend Family History: CAD, CVA, DM, Hyperlipidemia, Hypertension, Malignancy Patient has suicidal ideation: No Patient has homicidal ideation: No - Past Medical History Cardiac Medical History: Reports: Hx Congestive Heart Failure - EF is 40%, with moderate diastolic dysfunction, Hx DVT, Hx Heart Attack, Hx Hypercholesterolemia, Hx Hypertension, Hx Peripheral Vascular Disease, Hx Pulmonary Embolism Pulmonary Medical History: Reports: Hx Bronchitis, Hx COPD, Hx Pneumonia Neurological Medical History: Reports: None Endocrine Medical History: Reports: Hx Diabetes Mellitus Type 2 - insulin dependent Renal/ Medical History: Reports: Hx End Stage Renal Disease, Hx Hemodialysis GI Medical History: Reports: Hx Gastroesophageal Reflux Disease Musculoskeletal Medical History: Reports Hx Arthritis, 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, Reports Hx Musculoskeletal Trauma Infectious Medical History: Reports: Hx HIV Past Surgical History: Reports: Hx Orthopedic Surgery - bilateral amputation, R BKA, L AKA, Hx Vascular Surgery - left arm clot removed, IVC filter, thrombectomy 05/18/2018 left arm, Other - Endoscopy; Vascular surgery. - Immunizations Immunizations up to date: Yes Hx Diphtheria, Pertussis, Tetanus Vaccination: Yes Hx Pneumococcal Vaccination: 07/21/10 Review of Systems - Review of Systems Constitutional: No symptoms reported EENT: No symptoms reported Cardiovascular: No symptoms reported Respiratory: Cough, Short of breath, Wheezing Gastrointestinal: No symptoms reported Musculoskeletal: No symptoms reported Skin: No symptoms reported Hematologic/Lymphatic: No symptoms reported Neurological/Psychological: Headaches Physical Exam - Vital signs Vitals: Temp Pulse Resp BP Pulse Ox 97.7 F 90 17 164/96 H 100 07/27/18 06:13 07/27/18 06:13 07/27/18 06:13 07/27/18 06:13 07/27/18 06:13 Interpretation: Hypertensive. No: Hypoxic - General General appearance: Appears well, Alert In distress: None - HEENT Head: Normocephalic, Atraumatic Eyes: Normal Pupils: PERRL Neck: Other - Posterior cervical and trapezius muscles are tender to palpate - Respiratory Respiratory status: No respiratory distress Chest status: Nontender Breath sounds: Rhonchi - Rhonchi and wheezes heard on forced cough Chest palpation: Normal - Cardiovascular Rhythm: Regular Heart sounds: Normal auscultation Murmur: No - Abdominal Inspection: Normal Bowel sounds: Normal Tenderness: Nontender - Back Back: Normal - Extremities General lower extremity: Other - Right BKA and left AKA - Neurological Neuro grossly intact: Yes - Psychological Associated symptoms: Depressed - Skin Skin Temperature: Warm Skin Moisture: Dry Skin Color: Normal Course - Re-evaluation Re-evalutation: 07/27/18 08:10 The patient's INR is only 1.25, he will be given 10 mg of warfarin PO and 65 mg of Lovenox SC at this time. His troponin is elevated at 0.503, this is much higher than his previous numbers over the past few years. The troponin level will be repeated, and a UDS to confirm his continued cocaine use will be done. 07/27/18 10:03 The patient's repeat troponin is 0.430 which is significantly lower than the initial troponin. Urine drug screen is once again positive for cocaine as it usually is. I suspect the elevated troponins are related to his cocaine abuse and his chronic renal failure. There are no acute EKG changes. The patient's room air pulse ox remains at 98%. He will be discharged to go to dialysis and follow-up with his doctor to get his prescriptions renewed that he has run out of. - Vital Signs Vital signs: Temp Pulse Resp BP Pulse Ox 97.7 F 90 17 164/96 H 100 07/27/18 06:13 07/27/18 06:13 07/27/18 06:13 07/27/18 06:13 07/27/18 06:13 - Laboratory Result Diagrams: 07/27/18 06:19 07/27/18 06:19 Laboratory results interpreted by me: 07/27/18 07/27/18 07/27/18 06:19 06:19 06:19 RBC 3.49 L Hgb 11.1 L Hct 33.1 L RDW 14.3 H PT 16.3 H Chloride 110 H Carbon Dioxide 17 L BUN 56 H Creatinine 7.74 H Est GFR ( Amer) 9 L Est GFR (Non-Af Amer) 7 L Calcium 7.7 L Direct Bilirubin 0.6 H AST 65 H Urine Protein Urine Glucose (UA) 07/27/18 09:00 RBC Hgb Hct RDW PT Chloride Carbon Dioxide BUN Creatinine Est GFR ( Amer) Est GFR (Non-Af Amer) Calcium Direct Bilirubin AST Urine Protein 100 H Urine Glucose (UA) 50 H - Diagnostic Test Radiology reviewed: Image reviewed, Reports reviewed - Chest x-ray shows mild interstitial changes without change from previous films - EKG Interpretation by Me EKG shows normal: Sinus rhythm, Griffin, QRS Complexes, ST-T Waves. abnormal: Intervals - Prolonged QT interval Rate: Normal - 86 Rhythm: NSR, PVC's Voltage: Consistant with LVH When compared to previous EKG there are: No significant change Critical Care Note - Critical Care Note Total time excluding time spent on procedures (mins): 40 Discharge - Discharge Clinical Impression: Shortness of breath, Chronic kidney disease requiring chronic dialysis, Cocaine abuse, Subtherapeutic international normalized ratio (INR) Condition: Stable Disposition: HOME, SELF-CARE Additional Instructions: Your chest x-ray and EKG did not show any acute changes. Your lab work shows an elevated troponin which is most likely due to a combination of your cocaine abuse and chronic renal failure. Your INR bleeding time was subtherapeutic at 1.25, you were given an additional dose of Coumadin and Lovenox. You should follow-up with your doctor today to get your Coumadin prescription refilled. You should be sure to go to dialysis today as scheduled. You may have to call your doctor from dialysis to get your Coumadin prescription refilled if you are unable to make it to the office today. RETURN TO THE EMERGENCY ROOM IF ANY NEW OR WORSENING SYMPTOMS. Referrals: MATHIEU MACIAS FNP [Primary Care Provider] - Follow up as needed
[2018-07-27 07:24] LABS: CREATINE KINASE 130 U/L (55-170)
[2018-07-27 07:33] LABS: INTERNATIONAL RATION (INR) 1.25; PROTHROMBIN TIME 16.3 SEC (11.4-15.4)
--- NOTE | 2018-07-27 07:36 | EKG REPORT ---
SEVERITY:- ABNORMAL ECG - SINUS RHYTHM VENTRICULAR PREMATURE COMPLEX LVH WITH SECONDARY REPOLARIZATION ABNORMALITY PROLONGED QT INTERVAL NONSPECIFIC ST-T CHANGES LATERAL LEADS. : Confirmed by: Marco Young MD 27-Jul-2018 07:34:56
[2018-07-27 07:38] LABS: CREATINE KINASE MB 2.77 ng/mL (<4.55)
[2018-07-27 07:40] LABS: TROPONIN I 0.503 ng/mL
[2018-07-27] MEDS ORDERED: ENOXAPARIN SODIUM INJ 80 MG/0.8 ML DISP.SYRIN SUBCUT ONE (08:09)
[2018-07-27] MEDS ORDERED: WARFARIN SODIUM 5 MG TABLET PO ONE (08:09)
[2018-07-27 09:22] LABS: APPEARANCE,URINE CLEAR; BILIRUBIN,URINE NEGATIVE (NEGATIVE); COLOR,URINE YELLOW; GLUCOSE, URINE 50 mg/dL (NEGATIVE); KETONES,URINE NEGATIVE (NEGATIVE); LEUKOCYTE ESTERASE,URINE NEGATIVE (NEGATIVE); NITRITE,URINE NEGATIVE (NEGATIVE); PROTEIN,URINE 100 mg/dL (NEGATIVE); URINE SPECIFIC GRAVITY 1.012; UROBILINOGEN,URINE NEGATIVE mg/dL (<2.0)
[2018-07-27 09:42] LABS: URINE AMPHETAMINES SCREEN NEGATIVE; URINE BARBITURATES SCREEN NEGATIVE; URINE BENZODIAZEPINES SCREEN NEGATIVE; URINE COCAINE SCREEN UNCONFIRMED POSITIVE; URINE MARIJUANA (THC) SCREEN NEGATIVE; URINE METHADONE SCREEN NEGATIVE; URINE PHENCYCLIDINE SCREEN NEGATIVE
[2018-07-27 10:22] VITALS: BP 155/98
== END 2018-07-27 10:22 | disposition home or self-care (01) ==
LOC: ER 06:13
DX: R06.02 Shortness of breath (principal); F14.10 Cocaine abuse, uncomplicated; R79.1 Abnormal coagulation profile; E11.22 Type 2 diabetes mellitus with diabetic chronic kidney disease; I13.2 Hypertensive heart and chronic kidney disease with heart failure and with stage 5 chronic kidney disease, or end stage renal disease; I50.9 Heart failure, unspecified; N18.6 End stage renal disease; Z99.2 Dependence on renal dialysis; Z79.4 Long term (current) use of insulin; F17.210 Nicotine dependence, cigarettes, uncomplicated; I25.2 Old myocardial infarction; Z86.718 Personal history of other venous thrombosis and embolism; E78.00 Pure hypercholesterolemia, unspecified; Z89.511 Acquired absence of right leg below knee; Z89.612 Acquired absence of left leg above knee; B20 Human immunodeficiency virus [HIV] disease; Z79.02 Long term (current) use of antithrombotics/antiplatelets
CPT/HCPCS: 93005; 99291; 96372; 36415; 82553; 82550; 85025; 85610; 80053; 81001; 84484; 80307; 71045; 93010; A9270; J1650

== ENCOUNTER 2018-07-28 18:29 | Inpatient (IN) | payer MEDICARE, MEDICAID ==
[2018-07-28] MEDS ORDERED: ASPIRIN 81 MG TABLET, CHEWABLE PO ONE (18:52)
[2018-07-28] MEDS ORDERED: FUROSEMIDE INJ/PF 40 MG/4 ML SDV IV ONE (18:58)
[2018-07-28 19:08] LABS: ABSOLUTE BASOPHILS # (AUTO) 0.1 10^3/uL (0.0-0.2); ABSOLUTE EOSINOPHILS # (AUTO) 0.3 10^3/uL (0.0-0.6); ABSOLUTE LYMPHOCYTES (AUTO) 3.3 10^3/uL (0.5-4.7); ABSOLUTE MONOCYTES (AUTO) 0.4 10^3/uL (0.1-1.4); ABSOLUTE NEUT (AUTO) 3.5 10^3/uL (1.7-8.2); BASOPHILS % (AUTO) 0.8 % (0-2); EOSINOPHILS % (AUTO) 4.1 % (0-6); HEMATOCRIT 38.9 % (37.9-51.0); HEMOGLOBIN 12.7 g/dL (13.5-17.0); LYMPHOCYTES % (AUTO) 43.5 % (13-45); MEAN CORPUSCULAR HEMOGLOBIN 31.7 pg (27.0-33.4); MEAN CORPUSCULAR HGB CONC 32.7 g/dL (32.0-36.0); MEAN CORPUSCULAR VOLUME 97 fl (80-97); MONOCYTES % (AUTO) 5.3 % (3-13); PLATELET COUNT 210 10^3/uL (150-450); RED BLOOD COUNT 4.01 10^6/uL (4.35-5.55); SEGMENTED NEUTROPHILS % (AUTO) 46.3 % (42-78); TOTAL CELLS COUNTED % (AUTO) 100 %; WHITE BLOOD COUNT 7.5 10^3/uL (4.0-10.5)
[2018-07-28 19:13] LABS: INTERNATIONAL RATION (INR) 1.31
[2018-07-28 19:14] LABS: PARTIAL THROMBOPLASTIN TIME 25.4 SEC (23.5-35.8)
--- NOTE | 2018-07-28 19:19 | ER Document Report ---
ED General - General Chief Complaint: Shortness Of Breath Stated Complaint: DIFFICULTY BREATHING Time Seen by Provider: 07/28/18 18:45 Mode of Arrival: Medic Notes: 63-year-old male with a past medical history of end-stage renal disease on hemodialysis, hypertension, cocaine addiction, pulmonary embolus, HIV, congestiv e heart failure presents the emergency department by EMS for respiratory distress. Patient missed his dialysis yesterday. His last dialysis was Friday. Patient was seen in the ED yesterday for shortness of breath and told to make his dialysis appointment. He said he didn't have a ride to dialysis. EMS placed on BiPAP and brought to the emergency department. EMS gave the patient 20 mg of labetalol in route as he was hypertensive and tachycardic. Patient admits to cocaine abuse. He states that the last time he used cocaine was on Friday. Patient's medication list was reviewed yesterday. Patient is not on Eliquis. He is currently on Coumadin. Patient was increased to 15 mg a day. He states that he did take his medication Friday morning. He did not take it since then because he ran out of pills and not have a refill. Patient was given Lovenox and warfarin in the emergency department yesterday. TRAVEL OUTSIDE OF THE [place] IN LAST 30 DAYS: No - HPI Onset: Just prior to arrival Onset/Duration: Sudden Quality of pain: No pain Severity: Severe Pain Level: Denies Associated symptoms: Shortness of breath Exacerbated by: Denies Relieved by: Denies Similar symptoms previously: Yes Recently seen / treated by doctor: Yes - Related Data Allergies/Adverse Reactions: calcitriol Allergy (Verified 07/27/18 06:39) itching Past Medical History - General Information source: Patient, Emergency Med Personnel - Social History Smoking Status: Current Some Day Smoker Family History: CAD, CVA, DM, Hyperlipidemia, Hypertension, Malignancy - Past Medical History Cardiac Medical History: Reports: Hx Congestive Heart Failure - EF is 40%, with moderate diastolic dysfunction, Hx DVT, Hx Heart Attack, Hx Hypercholesterolemia, Hx Hypertension, Hx Peripheral Vascular Disease, Hx Pulmonary Embolism Pulmonary Medical History: Reports: Hx Bronchitis, Hx COPD, Hx Pneumonia Denies: Hx Asthma Neurological Medical History: Denies: Hx Migraine, Hx Seizures Endocrine Medical History: Reports: Hx Diabetes Mellitus Type 2 - insulin dependentComment Only: Hx Diabetes Mellitus Type 1 - 1.5 Renal/ Medical History: Reports: Hx End Stage Renal Disease, Hx Hemodialysis, Hx Renal Insufficiency. Denies: Hx Peritoneal Dialysis GI Medical History: Reports: Hx Gastroesophageal Reflux Disease Musculoskeletal Medical History: Reports Hx Arthritis, 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, Reports Hx Musculoskeletal Trauma Skin Medical History: Denies Hx Eczema Psychiatric Medical History: Denies: Hx Depression Traumatic Medical History: Denies: Hx Traumatic Brain Injury Infectious Medical History: Reports: Hx HIV Past Surgical History: Reports: Hx Orthopedic Surgery - bilateral amputation, R BKA, L AKA, Hx Vascular Surgery - left arm clot removed, IVC filter, thrombectomy 05/18/2018 left arm, Other - Endoscopy; Vascular surgery. - Immunizations Immunizations up to date: Yes Hx Diphtheria, Pertussis, Tetanus Vaccination: Yes Hx Pneumococcal Vaccination: 07/21/10 Review of Systems - Review of Systems Constitutional: No symptoms reported EENT: No symptoms reported Cardiovascular: No symptoms reported Respiratory: Short of breath Gastrointestinal: No symptoms reported Genitourinary: No symptoms reported Musculoskeletal: No symptoms reported Skin: No symptoms reported Hematologic/Lymphatic: No symptoms reported Neurological/Psychological: No symptoms reported -: Yes All other systems reviewed and negative Physical Exam - Vital signs Vitals: Resp Pulse Ox 23 H 100 07/28/18 18:31 07/28/18 18:31 - Notes Notes: PHYSICAL EXAMINATION: GENERAL: patient in respiratory distress. HEAD: Atraumatic, normocephalic. EYES: Pupils equal round and reactive to light, extraocular movements intact, sclera anicteric, conjunctiva are normal. ENT: Nares patent, oropharynx clear without exudates. Moist mucous membranes. NECK: Normal range of motion, supple without lymphadenopathy LUNGS: Tight lung sounds with decreased air movement. No wheezing or rhonci appreciated. HEART: Regular rate and rhythm without murmurs ABDOMEN: Soft, nontender, nondistended abdomen. No guarding, no rebound. No masses appreciated. Musculoskeletal: Normal range of motion, no pitting or edema. No cyanosis. R BKA. L AKA. NEUROLOGICAL: Cranial nerves grossly intact. Normal speech, Normal sensory, motor exams PSYCH: Normal mood, normal affect. SKIN: Warm, Dry, normal turgor, no rashes or lesions noted. Course - Re-evaluation Re-evalutation: 07/28/18 19:18 EKG: Ventricular rate 104, WV interval 184, QRS duration 106, QTc 500, sinus tachycardia. No ST segment elevation. 07/29/18 02:55 Exam notable for tight lungs. Patient placed on bipap. Patient has history of COPD and CHF. Duoneb treatment and lasix ordered. Respiratory distress improved. Labs and imaging obtained. CXR shows vascular congestion. Labs significant for hyperkalemia. I contacted Dr. Lowe. He will consult on the patient. Patient to get dialysis at 6am. In the meantime, he would like patient treated with hyperkalemia protocol including insulin/glucose, bicarb, calcium gluconate, albuterol, kayexelate. I contacted the hospitalist, Dr. Marin. No ICU beds available. Patient to stay in the ED until a bed opens. Dr. Marin will see and evaluate the patient in the ED. 07/29/18 03:02 - Vital Signs Vital signs: Temp Pulse Resp BP Pulse Ox 16 148/110 H 100 07/29/18 00:55 07/28/18 23:00 07/29/18 00:55 - Laboratory Result Diagrams: 07/28/18 18:49 07/28/18 20:35 Laboratory results interpreted by me: 07/28/18 07/28/18 07/28/18 18:49 18:49 18:49 RBC 4.01 L Hgb 12.7 L RDW 15.0 H PT 17.0 H ABG pH ABG pO2 ABG HCO3 ABG Total CO2 ABG O2 Saturation Potassium Chloride Carbon Dioxide BUN Creatinine Est GFR ( Amer) Est GFR (Non-Af Amer) Calcium Magnesium AST ALT NT-Pro-B Natriuret Pep 21295 H Urine Protein Urine Glucose (UA) 07/28/18 07/28/18 07/28/18 20:15 20:35 22:18 RBC Hgb RDW PT ABG pH 7.27 L ABG pO2 129.9 H ABG HCO3 18.1 L ABG Total CO2 19.3 L ABG O2 Saturation 98.2 H Potassium 6.5 H* Chloride 110 H Carbon Dioxide 17 L BUN 66 H Creatinine 9.30 H Est GFR ( Amer) 7 L Est GFR (Non-Af Amer) 6 L Calcium 7.5 L Magnesium 2.7 H AST 223 H ALT 186 H NT-Pro-B Natriuret Pep Urine Protein 100 H Urine Glucose (UA) 50 H Discharge - Discharge Clinical Impression: Hyperkalemia, End stage renal disease Congestive heart failure Qualifiers: Heart failure type: unspecified Heart failure chronicity: acute on chronic Qualified Code(s): I50.9 - Heart failure, unspecified Condition: Serious Disposition: ADMITTED INPATIENT Admitting Provider: Hospitalist Unit Admitted: ICU
--- NOTE | 2018-07-28 19:23 | RADIOLOGY REPORT (SQ) ---
EXAM DESCRIPTION: CHEST SINGLE VIEW COMPLETED DATE/TIME: 07/28/2018 7:14 pm REASON FOR STUDY: shortness of breath COMPARISON: 07/27/2018 EXAM PARAMETERS: NUMBER OF VIEWS: One view. TECHNIQUE: Single frontal radiographic view of the chest acquired. RADIATION DOSE: NA LIMITATIONS: None. FINDINGS: LUNGS AND PLEURA: Basilar interstitial markings are prominent this may represent interstit ial edema. Findings may have progressed slightly from prior study. No focal consolidation. Lung fi elds are hyperexpanded. MEDIASTINUM AND HILAR STRUCTURES: No masses. Contour normal. HEART AND VASCULAR STRUCTURES: Heart remains enlarged. There is central vascular prominence. BONES: No acute findings. HARDWARE: None in the chest. OTHER: No other significant finding. IMPRESSION: Cardiomegaly. Suspect vascular congestion in the setting of COPD. TECHNICAL DOCUMENTATION: JOB ID: [id number] [employer]- All Rights Reserved Reading location - IP/workstation name: [email or web address]
[2018-07-28] MEDS ORDERED: IPRATROPIUM/ALBUTEROL 0.5-2.5 MG/3 ML AMPUL NEB ONE (20:16)
[2018-07-28 20:56] LABS: ARTERIAL BLOOD BASE EXCESS -8.4 mmol/L; ARTERIAL BLOOD FIO2 30%; ARTERIAL BLOOD H2CO3 1.22 mmol/L (1.05-1.35); ARTERIAL BLOOD HCO3 18.1 mmol/L (20-24); ARTERIAL BLOOD O2 SATURATION 98.2 % (94-98); ARTERIAL BLOOD PCO2 40.5 mmHg (35-45); ARTERIAL BLOOD PH 7.27 (7.35-7.45); ARTERIAL BLOOD PO2 129.9 mmHg (80-100); ARTERIAL BLOOD TOTAL CO2 19.3 mmol/L (23-27)
[2018-07-28 21:22] LABS: ALANINE AMINOTRANSFERASE 186 U/L (21-72); ALBUMIN 4.2 g/dL (3.5-5.0); ALKALINE PHOSPHATASE 121 U/L (38-126); ANION GAP 13 (5-19); ASPARTATE AMINO TRANSFERASE 223 U/L (17-59); BILIRUBIN,DIRECT 0.3 mg/dL (0.0-0.4); BILIRUBIN,TOTAL 0.3 mg/dL (0.2-1.3); BLOOD UREA NITROGEN 66 mg/dL (7-20); CALCIUM 7.5 mg/dL (8.4-10.2); CARBON DIOXIDE 17 mmol/L (22-30); CHLORIDE 110 mmol/L (98-107); GLUCOSE 90 mg/dL (75-110); SODIUM 139.7 mmol/L (137-145); TOTAL PROTEIN 6.9 g/dL (6.3-8.2)
[2018-07-28 21:26] LABS: POTASSIUM 6.5 mmol/L (3.6-5.0)
[2018-07-28] MEDS ORDERED: DEXTROSE 50%-WATER 25 GM/50 ML DISP.SYRIN IV ONE (22:45)
[2018-07-28] MEDS ORDERED: SODIUM POLYSTYRENE SULFONATE 15 GM/60 ML PO ONE (22:45)
[2018-07-28] MEDS ORDERED: INSULIN REG, HUMAN 100 UNIT/ML 3 ML VIAL (PYX) IV ONE (22:46)
[2018-07-28] MEDS ORDERED: CALCIUM GLUCONATE 1000 MG/10 ML INJ IV ONE (22:47)
[2018-07-28] MEDS ORDERED: SODIUM BICARBONATE 8.4% INJ 50 MEQ/50 ML DISP.SYRIN IV ONE (22:48)
[2018-07-28 23:48] LABS: APPEARANCE,URINE SLIGHTLY-CLOUDY; BILIRUBIN,URINE NEGATIVE (NEGATIVE); COLOR,URINE YELLOW; GLUCOSE, URINE 50 mg/dL (NEGATIVE); KETONES,URINE NEGATIVE (NEGATIVE); LEUKOCYTE ESTERASE,URINE NEGATIVE (NEGATIVE); NITRITE,URINE NEGATIVE (NEGATIVE); PROTEIN,URINE 100 mg/dL (NEGATIVE); URINE SPECIFIC GRAVITY 1.012; UROBILINOGEN,URINE NEGATIVE mg/dL (<2.0)
[2018-07-29 00:06] LABS: URINE AMPHETAMINES SCREEN NEGATIVE; URINE BARBITURATES SCREEN NEGATIVE; URINE BENZODIAZEPINES SCREEN NEGATIVE; URINE MARIJUANA (THC) SCREEN NEGATIVE; URINE METHADONE SCREEN NEGATIVE; URINE PHENCYCLIDINE SCREEN NEGATIVE
[2018-07-29 00:24] LABS: URINE COCAINE SCREEN UNCONFIRMED POSITIVE
[2018-07-29] MEDS ORDERED: MAGNESIUM HYDROXIDE SUSP 30 ML UDCUP PO PRN (00:36)
[2018-07-29] MEDS ORDERED: ONDANSETRON HCL INJ/PF 4 MG/2 ML SDV IV PRN (00:36)
[2018-07-29] MEDS ORDERED: MAG HYDROX/AL HYDROX/SIMETH SUSP 30 ML UDCUP PO PRN (00:36)
[2018-07-29] MEDS ORDERED: ONDANSETRON 4 MG TAB.RAPDIS PO PRN (00:36)
[2018-07-29] MEDS ORDERED: ACETAMINOPHEN 650 MG SUPP.RECT PR PRN (00:45)
[2018-07-29] MEDS ORDERED: ACETAMINOPHEN 325 MG TABLET PO PRN (00:45)
[2018-07-29] MEDS ORDERED: NALBUPHINE HCL INJ 10 MG/1 ML AMPULE IV PRN (00:45)
[2018-07-29] MEDS ORDERED: HYDRALAZINE HCL INJ/PF 20 MG/1 ML SDV IV PRN (00:45)
[2018-07-29] MEDS ORDERED: ALBUTEROL SULFATE HFA (90 MCG/PUFF) 200 PUFF/8.5 GM MDI IH PRN (00:46)
[2018-07-29] MEDS ORDERED: CALCIUM CARBONATE 500 MG TAB.CHEW PO PRN (00:46)
[2018-07-29] MEDS ORDERED: NITROGLYCERIN 0.4 MG/TAB 25 TAB/BOTTLE SL PRN (00:46)
--- NOTE | 2018-07-29 02:02 | PDOC H&P ---
History of Present Illness Admission Date/PCP: 07/28/18 22:58 ARUN MORA Patient complains of: Dyspnea History of Present Illness: KRISTY CANTU is a 63 year old male who presents the emergency room with a 1 day history of progressively worsening dyspnea. He states that he had a dialysis performed 4 days ago on Friday but missed his Friday appointment because he was in the emergency room and they would not send him from the ER to dialysis in time for him to get his dialysis performed. He states that his dyspnea is severe today and worse than it is many times when he comes to the emergency room. He admits to the accompanying symptoms of occasional brief sharp chest tightness and a continuous headache. The dyspnea has been present constantly as well as gradually worsening. He admits to many similar prior episodes and is certain that his dyspnea is worsened by not having dialysis performed and is definitely improved after having dialysis performed. The patient's alterations expert Dr. Lowe was contacted by the emergency room provider and agreed to treat the patient with emergency inpatient dialysis early in the morning tomorrow. Patient was therefore admitted to the hospitalist service for dialysis in the morning. Past Medical History Cardiac Medical History: Reports: Congestive Heart Failure - EF is 40%, with moderate diastolic dysfunction, DVT, Myocardial Infarction, Hyperlipidema, Hyper tension, Peripheral Vascular Disease, Pulmonary Embolism Pulmonary Medical History: Reports: Bronchitis, Chronic Obstructive Pulmonary Disease (COPD), Pneumonia, Respiratory Failure Denies: Asthma EENT Medical History: Reports: None Neurological Medical History: Reports: Other - Frequent headaches. Denies: Migraine, Multiple Sclerosis, Seizures Endocrine Medical History: Reports: Diabetes Mellitus Type 2 - insulin dependent Denies: Hyperthyroidism, Hypothyroidism Renal/ Medical History: Reports: Chronic Kidney Disease, End Stage Renal Disease Denies: Nephrolithiasis Malignancy Medical History: Reports: None GI Medical History: Reports: Gastroesophageal Reflux Disease Denies: Crohn's Disease, Ulcerative Colitis Musculoskeltal Medical History: Reports: Arthritis Denies: Fibromyalgia Skin Medical History: Denies: Eczema, Psoriasis Psychiatric Medical History: Reports: Substance Abuse, Tobacco Dependency Denies: Alcohol Dependency, Depression Traumatic Medical History: Reports: None Denies: Traumatic Brain Injury Hematology: Reports: Anemia, Bleeding Tendencies - Since being on warfarin Infectious Medical History: Reports: HIV Past Surgical History Past Surgical History: Reports: Orthopedic Surgery - bilateral amputation, R BKA, L AKA, Vascular Surgery - left arm clot removed, IVC filter, thrombectomy 05/18/2018 left arm, Other - Endoscopy; Vascular surgery. Social History Information Source: Patient Smoking Status: Current Every Day Smoker Frequency of Alcohol Use: None Hx Recreational Drug Use: Yes - Last used 07/11/2018 Drugs: Cocaine Hx Prescription Drug Abuse: No - Advance Directive Resuscitation Status: Full Code Surrogate healthcare decision maker:: Mary Marin Family History Family History: CAD, CVA, DM, Hyperlipidemia, Hypertension, Malignancy Parental Family History Reviewed: Yes Children Family History Reviewed: No Sibling(s) Family History Reviewed.: Yes Medication/Allergy Home Medications: Abacavir Sulfate [Abacavir 300 mg Tablet] 600 mg PO DAILY 07/15/18 Clonidine [Catapres-Tts 3 (0.3 mg/24 Hr) Transderm Patch] 1 patch TD GUTIÉRREZ@1000 07/15/18 Dolutegravir Sodium [Tivicay] 50 mg PO DAILY 07/15/18 Furosemide [Lasix 80 mg Tablet] 80 mg PO DAILY 07/15/18 Hydralazine HCl 100 mg PO Q8 07/15/18 Isosorbide Mononitrate [Isosorbide Mononitrate ER] 120 mg PO DAILY 07/15/18 Nitroglycerin [Nitrostat 0.4 mg (1/150 Gr) Tabs 25/Bottle] 1 tab SL Q5MP PRN 07/15/18 Warfarin Sodium [Coumadin 5 mg Tablet] 5 mg PO DAILY 07/15/18 Albuterol Sulfate [Proair Hfa Inhalation Aerosol 8.5 gm Mdi] 1 puff IH Q4 PRN 07/27/18 Calcium Acetate 667 mg PO TID 07/27/18 Calcium Carbonate [Tums Chewable 500 mg Tab.chew] 500 mg PO PRN PRN 07/27/18 Lamivudine [Epivir] 5 ml PO DAILY 07/27/18 Allergies/Adverse Reactions: calcitriol Allergy (Verified 07/27/18 06:39) itching Review of Systems Constitutional: PRESENT: as per HPI, headache(s). ABSENT: chills, fever(s) Eyes: ABSENT: visual disturbances, other - Ocular pain Ears: ABSENT: hearing changes, other - Ear pain Nose, Mouth, and Throat: ABSENT: mouth pain, sore throat Cardiovascular: PRESENT: as per HPI, chest pain, dyspnea on exertion, edema, orthropnea. ABSENT: palpitations Respiratory: PRESENT: as per HPI, dyspnea. ABSENT: cough Gastrointestinal: ABSENT: abdominal pain, constipation, diarrhea, nausea, vomiting Genitourinary: ABSENT: dysuria, hematuria Musculoskeletal: ABSENT: deformity, joint swelling Integumentary: ABSENT: pruritus, rash Neurological: ABSENT: confusion, convulsions, memory loss, tremor(s) Psychiatric: ABSENT: anxiety, depression Endocrine: ABSENT: cold intolerance, heat intolerance Hematologic/Lymphatic: PRESENT: easy bleeding, easy bruising Physical Exam Vital Signs: Temp Pulse Resp BP Pulse Ox 17 135/93 H 97 07/28/18 21:01 07/28/18 21:00 07/28/18 21:01 Intake & Output 07/26/18 07/27/18 07/28/18 23:59 23:59 23:59 Weight 74.389 kg General appearance: PRESENT: no acute distress, cooperative Head exam: PRESENT: atraumatic, normocephalic Eye exam: PRESENT: conjunctiva pink, EOMI. ABSENT: scleral icterus Ear exam: PRESENT: normal external ear exam. ABSENT: bleeding Mouth exam: PRESENT: dry mucosa, neck supple Neck exam: ABSENT: thyromegaly, tracheal deviation Respiratory exam: PRESENT: decreased breath sounds - Breath sounds are significantly decreased to the lower one half of both lung fisher with dullness to percussion also noted at the bases., rales - Bibasilar rales, symmetrical Cardiovascular exam: PRESENT: RRR. ABSENT: clicks, gallop, rubs Pulses: PRESENT: normal radial pulses Vascular exam: PRESENT: normal capillary refill. ABSENT: pallor GI/Abdominal exam: PRESENT: normal bowel sounds, soft Rectal exam: PRESENT: deferred Extremities exam: PRESENT: other - Status post BKA bilateral, LUE dialysis fistula noted.. ABSENT: joint swelling Musculoskeletal exam: ABSENT: deformity, dislocation Neurological exam: PRESENT: alert, oriented to person, oriented to place, oriented to time, oriented to situation, CN II-XII grossly intact. ABSENT: motor sensory deficit Psychiatric exam: PRESENT: appropriate affect, normal mood Skin exam: PRESENT: dry, intact, warm. ABSENT: jaundice, rash, urticaria Results Laboratory Results: 07/28/18 18:49 07/28/18 20:35 07/28/18 07/28/18 07/28/18 18:49 18:49 20:15 WBC 7.5 RBC 4.01 L Hgb 12.7 L Hct 38.9 MCV 97 MCH 31.7 MCHC 32.7 RDW 15.0 H Plt Count 210 Seg Neutrophils % 46.3 Lymphocytes % 43.5 Monocytes % 5.3 Eosinophils % 4.1 Basophils % 0.8 Absolute Neutrophils 3.5 Absolute Lymphocytes 3.3 Absolute Monocytes 0.4 Absolute Eosinophils 0.3 Absolute Basophils 0.1 Carbonic Acid 1.22 HCO3/H2CO3 Ratio 14:1 ABG pH 7.27 L ABG pCO2 40.5 ABG pO2 129.9 H ABG HCO3 18.1 L ABG O2 Saturation 98.2 H ABG Base Excess -8.4 FiO2 30% Sodium Cancelled Potassium Cancelled Chloride Cancelled Carbon Dioxide Cancelled Anion Gap Cancelled BUN Cancelled Creatinine Cancelled Est GFR ( Amer) Cancelled Est GFR (Non-Af Amer) Cancelled Glucose Cancelled Lactic Acid Calcium Cancelled Magnesium Cancelled Total Bilirubin Cancelled AST Cancelled ALT Cancelled Alkaline Phosphatase Cancelled Total Protein Cancelled Albumin Cancelled 07/28/18 07/28/18 20:35 20:35 WBC RBC Hgb Hct MCV MCH MCHC RDW Plt Count Seg Neutrophils % Lymphocytes % Monocytes % Eosinophils % Basophils % Absolute Neutrophils Absolute Lymphocytes Absolute Monocytes Absolute Eosinophils Absolute Basophils Carbonic Acid HCO3/H2CO3 Ratio ABG pH ABG pCO2 ABG pO2 ABG HCO3 ABG O2 Saturation ABG Base Excess FiO2 Sodium 139.7 Potassium 6.5 H* Chloride 110 H Carbon Dioxide 17 L Anion Gap 13 BUN 66 H Creatinine 9.30 H Est GFR ( Amer) 7 L Est GFR (Non-Af Amer) 6 L Glucose 90 Lactic Acid 0.9 Calcium 7.5 L Magnesium 2.7 H Total Bilirubin 0.3 AST 223 H ALT 186 H Alkaline Phosphatase 121 Total Protein 6.9 Albumin 4.2 07/28/18 07/28/18 07/28/18 18:49 18:49 20:35 Troponin I 0.310 0.330 NT-Pro-B Natriuret Pep [id number] H Impressions: Chest X-Ray 07/28/18 18:52 IMPRESSION: Cardiomegaly. Suspect vascular congestion in the setting of COPD. Assessment & Plan - Diagnosis (1) Acute on chronic respiratory failure with hypoxemia Is this a current diagnosis for this admission?: Yes Plan: Patient will be treated with BiPAP respiratory support for his hypoxia until he can have his fluid overload relieved with hemodialysis tomorrow. (2) Chronic kidney disease requiring chronic dialysis Is this a current diagnosis for this admission?: Yes Plan: Patient will have hemodialysis started tomorrow he has been treated for hyperkalemia in the emergency room with administration of sodium bicarbonate and Kayexalate. (3) Cephalgia Qualifiers: Headache type: unspecified Headache chronicity pattern: unspecified pattern Intractability: not intractable Qualified Code(s): R51 - Headache Is this a current diagnosis for this admission?: Yes Plan: Patient's headache will be treated with Nubain 10 mg IV every 3 hours as needed pain (4) Tobacco abuse Is this a current diagnosis for this admission?: Yes Plan: Patient will have a nicotine patch available for nicotine replacement if he desires. Smoking cessation is advised and smoking cessation counseling is given in brief. (5) HIV (human immunodeficiency virus infection) Is this a current diagnosis for this admission?: Yes Plan: Patient will be continued on his current antiviral therapy medications during his hospital course. - Time Time Spent: 30 to 50 Minutes Critical Time spent with patient: Less than 15 minutes Smoking Cessation Education: 3 to 10 minutes Medications reviewed and adjusted accordingly: Yes - Inpatient Certification Based on my medical assessment, after consideration of the patient's comorbidities, presenting symptoms, or acuity I expect that the services needed warrant INPATIENT care.: Yes I certify that my determination is in accordance with my understanding of Medicare's requirements for reasonable and necessary INPATIENT services [42 CFR 412.3e].: Yes Medical Necessity: Need Close Monitoring Due to Risk of Patient Decompensation, Need For Continuous Telemetry Monitoring, Risk of Complication if Not Cared For in Hospital
[2018-07-29] MEDS ORDERED: NICOTINE 21 MG/24 HR PATCH.TD24 TD PRN (02:19)
[2018-07-29 04:38] LABS: INTERNATIONAL RATION (INR) 1.28; PROTHROMBIN TIME 16.7 SEC (11.4-15.4)
[2018-07-29] MEDS ORDERED: HEPARIN SOD (PORCINE) 5,000 UNIT/ML 1 ML SYRINGE SUBCUT SCH (06:00)
[2018-07-29] MEDS ORDERED: HYDRALAZINE HCL 50 MG TABLET PO SCH (06:00)
--- NOTE | 2018-07-29 07:59 | EKG REPORT ---
SEVERITY:- ABNORMAL ECG - SINUS TACHYCARDIA LEFT ANTERIOR FASCICULAR BLOCK LVH WITH SECONDARY REPOLARIZATION ABNORMALITY BORDERLINE PROLONGED QT INTERVAL : Confirmed by: Marco Young MD 29-Jul-2018 07:59:10
--- NOTE | 2018-07-29 07:59 | EKG REPORT ---
SEVERITY:- ABNORMAL ECG - SINUS RHYTHM LVH WITH SECONDARY REPOLARIZATION ABNORMALITY CONSIDER ANTERIOR INFARCT PROLONGED QT INTERVAL : Confirmed by: Marco Young MD 29-Jul-2018 07:57:58
[2018-07-29] MEDS ORDERED: CALCIUM ACETATE 667 MG CAPSULE PO SCH (08:00)
[2018-07-29 08:05] LABS: ANION GAP 13 (5-19); BLOOD UREA NITROGEN 68 mg/dL (7-20); CALCIUM 7.3 mg/dL (8.4-10.2); CARBON DIOXIDE 20 mmol/L (22-30); CHLORIDE 108 mmol/L (98-107); GLUCOSE 115 mg/dL (75-110); SODIUM 141.1 mmol/L (137-145)
[2018-07-29 08:06] LABS: POTASSIUM 4.2 mmol/L (3.6-5.0)
[2018-07-29] MEDS ORDERED: HEPARIN SOD (PORCINE) 1,000 UNIT/ML 10 ML VIAL IV PRN (08:30)
[2018-07-29] MEDS ORDERED: FUROSEMIDE 80 MG TABLET PO SCH (10:00)
[2018-07-29] MEDS ORDERED: DOCUSATE SODIUM 100 MG CAPSULE PO SCH (10:00)
[2018-07-29] MEDS ORDERED: ISOSORBIDE MONONITRATE 60 MG TAB.ER.24H PO SCH (10:00)
[2018-07-29] MEDS ORDERED: (PENDING PHARMACY ID) (Warfarin Sodium 5 MG) PO SCH (10:00)
[2018-07-29] MEDS ORDERED: LAMIVUDINE PO SCH (10:00)
[2018-07-29] MEDS ORDERED: FAMOTIDINE 20 MG TABLET PO SCH (10:00)
[2018-07-29] MEDS ORDERED: ABACAVIR SULFATE 600 MG PO SCH (10:00)
[2018-07-29] MEDS ORDERED: (PENDING PHARMACY ID) (Dolutegravir Sodium [Tivicay] 50 MG) PO SCH (10:00)
--- NOTE | 2018-07-29 10:17 | PDOC PROGRESS REPORT ---
Subjective Progress Note for:: 07/29/18 Subjective:: Patient is currently on hemodialysis. He missed his Friday treatment. He is being dialyzed this morning. The goal is 5 L removal. He will be able to discharged home after hemodialysis if there are no other issues. Reason For Visit: ACUTE FLUID OVERLOAD DUE TO MISSED DIALYSIS Physical Exam Vital Signs: Temp Pulse Resp BP Pulse Ox 16 162/81 H 97 07/29/18 08:54 07/29/18 08:54 07/29/18 08:54 Intake & Output 07/28/18 07/29/18 07/30/18 06:59 06:59 06:59 Weight 74.389 kg General appearance: PRESENT: no acute distress, cooperative Head exam: PRESENT: normocephalic Respiratory exam: PRESENT: rales - At bases, symmetrical, unlabored. ABSENT: accessory muscle use, crackles, rhonchi, wheezes Cardiovascular exam: PRESENT: RRR, +S1, +S2 GI/Abdominal exam: PRESENT: normal bowel sounds, soft. ABSENT: distended, tenderness Extremities exam: PRESENT: other - Bilateral below-knee amputations Neurological exam: PRESENT: alert, awake, oriented to person, oriented to place, oriented to time, oriented to situation Psychiatric exam: PRESENT: appropriate affect. ABSENT: agitated, anxious Focused psych exam: ABSENT: delusional, restlessness Results Laboratory Results: 07/28/18 18:49 07/29/18 07:36 07/28/18 07/28/18 07/28/18 18:49 18:49 20:15 WBC 7.5 RBC 4.01 L Hgb 12.7 L Hct 38.9 MCV 97 MCH 31.7 MCHC 32.7 RDW 15.0 H Plt Count 210 Seg Neutrophils % 46.3 Lymphocytes % 43.5 Monocytes % 5.3 Eosinophils % 4.1 Basophils % 0.8 Absolute Neutrophils 3.5 Absolute Lymphocytes 3.3 Absolute Monocytes 0.4 Absolute Eosinophils 0.3 Absolute Basophils 0.1 Carbonic Acid 1.22 HCO3/H2CO3 Ratio 14:1 ABG pH 7.27 L ABG pCO2 40.5 ABG pO2 129.9 H ABG HCO3 18.1 L ABG O2 Saturation 98.2 H ABG Base Excess -8.4 FiO2 30% Sodium Cancelled Potassium Cancelled Chloride Cancelled Carbon Dioxide Cancelled Anion Gap Cancelled BUN Cancelled Creatinine Cancelled Est GFR ( Amer) Cancelled Est GFR (Non-Af Amer) Cancelled Glucose Cancelled Lactic Acid Calcium Cancelled Magnesium Cancelled Total Bilirubin Cancelled AST Cancelled ALT Cancelled Alkaline Phosphatase Cancelled Total Protein Cancelled Albumin Cancelled Urine Color Urine Appearance Urine pH Ur Specific [place] Urine Protein Urine Glucose (UA) Urine Ketones Urine Blood Urine Nitrite Ur Leukocyte Esterase Urine WBC (Auto) Urine RBC (Auto) 07/28/18 07/28/18 07/28/18 20:35 20:35 22:18 WBC RBC Hgb Hct MCV MCH MCHC RDW Plt Count Seg Neutrophils % Lymphocytes % Monocytes % Eosinophils % Basophils % Absolute Neutrophils Absolute Lymphocytes Absolute Monocytes Absolute Eosinophils Absolute Basophils Carbonic Acid HCO3/H2CO3 Ratio ABG pH ABG pCO2 ABG pO2 ABG HCO3 ABG O2 Saturation ABG Base Excess FiO2 Sodium 139.7 Potassium 6.5 H* Chloride 110 H Carbon Dioxide 17 L Anion Gap 13 BUN 66 H Creatinine 9.30 H Est GFR ( Amer) 7 L Est GFR (Non-Af Amer) 6 L Glucose 90 Lactic Acid 0.9 Calcium 7.5 L Magnesium 2.7 H Total Bilirubin 0.3 AST 223 H ALT 186 H Alkaline Phosphatase 121 Total Protein 6.9 Albumin 4.2 Urine Color YELLOW Urine Appearance SLIGHTLY-CLOUDY Urine pH 7.0 Ur Specific [place] 1.012 Urine Protein 100 H Urine Glucose (UA) 50 H Urine Ketones NEGATIVE Urine Blood NEGATIVE Urine Nitrite NEGATIVE Ur Leukocyte Esterase NEGATIVE Urine WBC (Auto) 7 Urine RBC (Auto) 1 07/29/18 07:36 WBC RBC Hgb Hct MCV MCH MCHC RDW Plt Count Seg Neutrophils % Lymphocytes % Monocytes % Eosinophils % Basophils % Absolute Neutrophils Absolute Lymphocytes Absolute Monocytes Absolute Eosinophils Absolute Basophils Carbonic Acid HCO3/H2CO3 Ratio ABG pH ABG pCO2 ABG pO2 ABG HCO3 ABG O2 Saturation ABG Base Excess FiO2 Sodium 141.1 Potassium 4.2 D Chloride 108 H Carbon Dioxide 20 L Anion Gap 13 BUN 68 H Creatinine 9.08 H Est GFR ( Amer) 7 L Est GFR (Non-Af Amer) 6 L Glucose 115 H Lactic Acid Calcium 7.3 L Magnesium Total Bilirubin AST ALT Alkaline Phosphatase Total Protein Albumin Urine Color Urine Appearance Urine pH Ur Specific [place] Urine Protein Urine Glucose (UA) Urine Ketones Urine Blood Urine Nitrite Ur Leukocyte Esterase Urine WBC (Auto) Urine RBC (Auto) 0107/28/18 07/28/18 18:49 18:49 20:35 Troponin I 0.310 0.330 NT-Pro-B Natriuret Pep [id number] H Impressions: Chest X-Ray 07/28/18 18:52 IMPRESSION: Cardiomegaly. Suspect vascular congestion in the setting of COPD. Assessment & Plan - Diagnosis (1) Acute on chronic combined systolic and diastolic heart failure Is this a current diagnosis for this admission?: Yes Plan: Patient has a history of heart failure. Unfortunately he is noncompliant with medications and his dialysis schedule. He continues to abuse cocaine. He was in the emergency department Friday night and was discharged Friday morning and instructed to go to his hemodialysis appointment. He reports that he did not have transportation. He missed his appointment. He is here today and will require hemodialysis and then be able to discharge and continue with his Friday schedule. (2) End stage renal disease Is this a current diagnosis for this admission?: Yes Plan: The goal today will be 5 L fluid removal (3) Hyperkalemia Is this a current diagnosis for this admission?: Yes Plan: Potassium was 6.5. Unfortunately he was aggressively treated for hyperkalemia despite the fact that he was going to have dialysis. At the beginning of dialysis potassium is only 4.2. I will draw a BMP after dialysis. He may need one-time supplementation prior to discharge. (4) Hypermagnesemia Is this a current diagnosis for this admission?: Yes Plan: I have asked the dietitian to educate the patient regarding foods low in magnesium. He also is not very compliant with low potassium and I suspect not very compliant with diabetic diet. We will recheck magnesium after dialysis. If he would stick to a low magnesium diet he should be stable. (5) Hypocalcemia Is this a current diagnosis for this admission?: Yes Plan: The patient acknowledges not taking his calcium supplement. We will try and encourage better compliance. (6) Cocaine abuse Is this a current diagnosis for this admission?: Yes Plan: Ongoing problem. This certainly contributes to his noncompliance. (7) Noncompliance Is this a current diagnosis for this admission?: Yes Plan: Long history of noncompliance not only with medications but diet and dialysis. - Time Time Spent with patient: 15-24 minutes Medications reviewed and adjusted accordingly: Yes Anticipated discharge: Home Within: within 24 hours
[2018-07-29 11:31] LABS: ANION GAP 15 (5-19); CALCIUM 9.2 mg/dL (8.4-10.2); CARBON DIOXIDE 28 mmol/L (22-30); CHLORIDE 98 mmol/L (98-107); GLUCOSE 90 mg/dL (75-110); SODIUM 141.4 mmol/L (137-145)
[2018-07-29 11:50] LABS: BLOOD UREA NITROGEN 24 mg/dL (7-20)
[2018-07-29 11:51] LABS: POTASSIUM 3.2 mmol/L (3.6-5.0)
[2018-07-29] MEDS ORDERED: FUROSEMIDE 80 MG TABLET PO ONE (12:00)
[2018-07-29] MEDS ORDERED: POTASSIUM CHLORIDE 10 MEQ CAPSULE.ER PO ONE (12:01)
[2018-07-29 13:55] VITALS: BP 155/90
--- NOTE | 2018-07-29 15:02 | PDOC CONSULTATION ---
Consultation Consult Date: 07/29/18 Consult reason:: Emergent dialysis for congestive heart failure and hyperkalemia. History of Present Illness Admission Date/PCP: 07/28/18 22:58 ARUN MORA History of Present Illness: KRISTY CANTU is a 63 year old male with the past medical history of hypertension,Cocaine addictionWas presented with severe hypertensive urgency in the past, HIV and severe noncompliance with diet, medications and hemodialysis treatments came to the ER with complaints of progressive shortness of breath over the last couple of days leading to orthopnea. He had missed his last dialysis on Friday and therefore his previous dialysis was on Friday. Evaluations revealed that he was in early congestive heart failure and his potassium was high at 6.5. He was given emergency treatments for both of these and instituted measures to counteract his hyperkalemia which fortunately had no EKG changes.Recently is undergoing dialysis without any issues. He admits to noncompliance. Dialysis orders were reviewed with the treating dialysis nurse. Stat potassium is being asked for. Past Medical History Cardiac Medical History: Reports: CHF-Diastolic, DVT, Hyperlipidemia, Hypertension-primary, Myocardial Infarction, Peripheral Vascular Disease, Pulmonary Embolism Pulmonary Medical History: Reports: Bronchitis, Chronic Obstructive Pulmonary Disease (COPD), Pneumonia, Respiratory Failure Denies: Asthma EENT Medical History: Reports: None Neurological Medical History: Reports: Other - Frequent headaches. Denies: Migraine, Multiple Sclerosis, Seizures Endocrine Medical History: Reports: Diabetes Mellitus Type 2 - insulin dependent Denies: Hyperthyroidism, Hypothyroidism Comment Only: Diabetes Mellitus Type 1 - 1.5 Complications of Diabetes: Reports: None Renal/ Medical History: Reports: End Stage Renal Disease, Hyperphosphatemia, Metabolic Acidosis, Secondary Hyperparathyroidism Denies: Nephrolithiasis Malignancy Medical History: Reports: None GI Medical History: Reports: Gastroesophageal Reflux Disease Denies: Crohn's Disease, Ulcerative Colitis Musculoskeltal Medical History: Reports: Arthritis Denies: Fibromyalgia Skin Medical History: Denies: Eczema, Psoriasis Psychiatric Medical History: Reports: Substance Abuse, Tobacco Dependency Denies: Alcohol Dependency, Depression Traumatic Medical History: Reports: None Denies: Traumatic Brain Injury Infectious Medical History: Reports: HIV Past Surgical History Past Surgical History: Reports: Orthopedic Surgery - bilateral amputation, R BKA, L AKA, Vascular Surgery - left arm clot removed, IVC filter, thrombectomy 05/18/2018 left arm, Other - Endoscopy; Vascular surgery. Social History Smoking Status: Current Some Day Smoker Frequency of Alcohol Use: None Hx Recreational Drug Use: Yes - Last used 07/11/2018 Drugs: Cocaine Hx Prescription Drug Abuse: No - Advance Directive Resuscitation Status: Full Code Family History Parental Family History Reviewed: Yes - Negative for ESRD Children Family History Reviewed: No Sibling(s) Family History Reviewed.: No Medication/Allergy Home Medications: Abacavir Sulfate [Abacavir 300 mg Tablet] 600 mg PO DAILY 07/15/18 Clonidine [Catapres-Tts 3 (0.3 mg/24 Hr) Transderm Patch] 1 patch TD GUTIÉRREZ@1000 07/15/18 Dolutegravir Sodium [Tivicay] 50 mg PO DAILY 07/15/18 Furosemide [Lasix 80 mg Tablet] 80 mg PO DAILY 07/15/18 Hydralazine HCl 100 mg PO Q8 07/15/18 Isosorbide Mononitrate [Isosorbide Mononitrate ER] 120 mg PO DAILY 07/15/18 Nitroglycerin [Nitrostat 0.4 mg (1/150 Gr) Tabs 25/Bottle] 1 tab SL Q5MP PRN 07/15/18 Warfarin Sodium [Coumadin 5 mg Tablet] 5 mg PO DAILY 07/15/18 Albuterol Sulfate [Proair HFA Inhalation Aerosol 8.5 gm MDI] 2 puff IH Q6HP PRN 07/27/18 Calcium Acetate 667 mg PO TID 07/27/18 Calcium Carbonate [Tums Chewable 500 mg Tab.chew] 1,000 mg PO DAILY 07/27/18 Lamivudine [Epivir] 5 ml PO DAILY 07/27/18 Allergies/Adverse Reactions: calcitriol Allergy (Verified 07/27/18 06:39) itching Review of Systems Constitutional: PRESENT: fatigue, headache(s), weakness. ABSENT: fever(s), night sweats Cardiovascular: PRESENT: dyspnea on exertion, orthropnea. ABSENT: chest pain, edema Respiratory: PRESENT: dyspnea. ABSENT: cough, hemoptysis Gastrointestinal: ABSENT: abdominal pain, diarrhea, dysphagia, heartburn, hematemesis, hematochezia Neurological: ABSENT: abnormal speech, confusion, focal weakness Hematologic/Lymphatic: ABSENT: easy bruising, lymphadenopathy Physical Exam Vital Signs: Temp Pulse Resp BP Pulse Ox 98.2 F 87 18 155/90 H 97 07/29/18 13:40 07/29/18 13:40 07/29/18 13:40 07/29/18 13:40 07/29/18 13:40 Intake & Output 07/28/18 07/29/18 07/30/18 06:59 06:59 06:59 Output Total 5000 Balance -5000 Weight 74.389 kg General appearance: PRESENT: mild distress Eye exam: PRESENT: conjunctiva pink, EOMI, PERRLA Ear exam: PRESENT: normal external ear exam Mouth exam: PRESENT: moist, neck supple Neck exam: ABSENT: lymphadenopathy, meningismus, tenderness, thyromegaly, tracheal deviation Respiratory exam: PRESENT: clear to auscultation ramila, crackles, decreased breath sounds Cardiovascular exam: PRESENT: +S1, +S2, systolic murmur GI/Abdominal exam: PRESENT: normal bowel sounds, soft. ABSENT: organomegaly, tenderness Extremities exam: PRESENT: pedal edema Neurological exam: PRESENT: alert, awake, oriented to person, oriented to place Psychiatric exam: PRESENT: anxious Skin exam: ABSENT: cyanosis, erythema, rash Results Laboratory Results: 07/28/18 18:49 07/29/18 10:47 07/28/18 07/28/18 07/28/18 18:49 18:49 20:15 WBC 7.5 RBC 4.01 L Hgb 12.7 L Hct 38.9 MCV 97 MCH 31.7 MCHC 32.7 RDW 15.0 H Plt Count 210 Seg Neutrophils % 46.3 Lymphocytes % 43.5 Monocytes % 5.3 Eosinophils % 4.1 Basophils % 0.8 Absolute Neutrophils 3.5 Absolute Lymphocytes 3.3 Absolute Monocytes 0.4 Absolute Eosinophils 0.3 Absolute Basophils 0.1 Carbonic Acid 1.22 HCO3/H2CO3 Ratio 14:1 ABG pH 7.27 L ABG pCO2 40.5 ABG pO2 129.9 H ABG HCO3 18.1 L ABG O2 Saturation 98.2 H ABG Base Excess -8.4 FiO2 30% Sodium Cancelled Potassium Cancelled Chloride Cancelled Carbon Dioxide Cancelled Anion Gap Cancelled BUN Cancelled Creatinine Cancelled Est GFR ( Amer) Cancelled Est GFR (Non-Af Amer) Cancelled Glucose Cancelled Lactic Acid Calcium Cancelled Magnesium Cancelled Total Bilirubin Cancelled AST Cancelled ALT Cancelled Alkaline Phosphatase Cancelled Total Protein Cancelled Albumin Cancelled Urine Color Urine Appearance Urine pH Ur Specific [place] Urine Protein Urine Glucose (UA) Urine Ketones Urine Blood Urine Nitrite Ur Leukocyte Esterase Urine WBC (Auto) Urine RBC (Auto) 07/28/18 07/28/18 07/28/18 20:35 20:35 22:18 WBC RBC Hgb Hct MCV MCH MCHC RDW Plt Count Seg Neutrophils % Lymphocytes % Monocytes % Eosinophils % Basophils % Absolute Neutrophils Absolute Lymphocytes Absolute Monocytes Absolute Eosinophils Absolute Basophils Carbonic Acid HCO3/H2CO3 Ratio ABG pH ABG pCO2 ABG pO2 ABG HCO3 ABG O2 Saturation ABG Base Excess FiO2 Sodium 139.7 Potassium 6.5 H* Chloride 110 H Carbon Dioxide 17 L Anion Gap 13 BUN 66 H Creatinine 9.30 H Est GFR ( Amer) 7 L Est GFR (Non-Af Amer) 6 L Glucose 90 Lactic Acid 0.9 Calcium 7.5 L Magnesium 2.7 H Total Bilirubin 0.3 AST 223 H ALT 186 H Alkaline Phosphatase 121 Total Protein 6.9 Albumin 4.2 Urine Color YELLOW Urine Appearance SLIGHTLY-CLOUDY Urine pH 7.0 Ur Specific [place] 1.012 Urine Protein 100 H Urine Glucose (UA) 50 H Urine Ketones NEGATIVE Urine Blood NEGATIVE Urine Nitrite NEGATIVE Ur Leukocyte Esterase NEGATIVE Urine WBC (Auto) 7 Urine RBC (Auto) 1 07/29/18 07/29/18 07:36 10:47 WBC RBC Hgb Hct MCV MCH MCHC RDW Plt Count Seg Neutrophils % Lymphocytes % Monocytes % Eosinophils % Basophils % Absolute Neutrophils Absolute Lymphocytes Absolute Monocytes Absolute Eosinophils Absolute Basophils Carbonic Acid HCO3/H2CO3 Ratio ABG pH ABG pCO2 ABG pO2 ABG HCO3 ABG O2 Saturation ABG Base Excess FiO2 Sodium 141.1 141.4 Potassium 4.2 D 3.2 L D Chloride 108 H 98 Carbon Dioxide 20 L 28 Anion Gap 13 15 BUN 68 H 24 H D Creatinine 9.08 H 3.86 H Est GFR ( Amer) 7 L 19 L Est GFR (Non-Af Amer) 6 L 16 L Glucose 115 H 90 Lactic Acid Calcium 7.3 L 9.2 Magnesium 2.1 Total Bilirubin AST ALT Alkaline Phosphatase Total Protein Albumin Urine Color Urine Appearance Urine pH Ur Specific [place] Urine Protein Urine Glucose (UA) Urine Ketones Urine Blood Urine Nitrite Ur Leukocyte Esterase Urine WBC (Auto) Urine RBC (Auto) 07/28/18 07/28/18 07/28/18 18:49 18:49 20:35 Troponin I 0.310 0.330 NT-Pro-B Natriuret Pep 29766 H Impressions: Chest X-Ray 07/28/18 18:52 IMPRESSION: Cardiomegaly. Suspect vascular congestion in the setting of COPD. Assessment & Plan - Diagnosis (1) Acute on chronic combined systolic and diastolic heart failure Is this a current diagnosis for this admission?: Yes Plan: Patient showing clinical features of congestive heart failure. He is being urgently dialyzed with plan to remove approximately 5 L of fluid as tolerated. Patient should get better and currently he is on nasal cannula from the BiPAP that he was on earlier. We discussed implications of noncompliance with diet medications and missing dialysis treatments. (2) End stage renal disease Is this a current diagnosis for this admission?: Yes Plan: Emergency hemodialysis being instituted. Is being supervised to ensure safe and smooth procedure. Plan to put him on a 2K bath and remove 5 L as tolerated. Check on stat potassium. Orders reviewed and discussed with the treating dialysis nurse Lucero. Discussed with patient about compliance with diet and not to miss treatments. Advised to stop cocaine use. (3) Hyperkalemia Is this a current diagnosis for this admission?: Yes Plan: Fortunately no EKG changes. He has been given dextrose, Insulin and Kayexalate. We will put him on a 2K bath and follow stat potassium labs. (4) Noncompliance Is this a current diagnosis for this admission?: Yes Plan: Discussed this at length. Unfortunately patient has been doing this for quite some time which is sad. (5) Substance abuse, continuous Plan: Discuss about stopping cocaine.
[2018-07-29] MEDS ORDERED: WARFARIN SODIUM 5 MG TABLET PO SCH (22:00)
--- NOTE | 2018-07-30 06:34 | PDOC DISCHARGE SUMMARY ---
General - Admit/Disc Date/PCP Admission Date/Primary Care Provider: 07/28/18 22:58 ARUN MOAR Discharge Date: 07/29/18 - Discharge Diagnosis (1) Acute on chronic combined systolic and diastolic heart failure Is this a current diagnosis for this admission?: Yes Summary: Primary treatment is dialysis. The patient is noncompliant with his dialysis schedule. I just admitted the patient to the hospital last month for cocaine use and missing his hemodialysis. He was dialyzed in the emergency department and released. (2) End stage renal disease Is this a current diagnosis for this admission?: Yes Summary: Continue hemodialysis (3) Hyperkalemia Is this a current diagnosis for this admission?: Yes Summary: Resolved with dialysis. In fact potassium was on the low side because the emergency department treated his hyperkalemia despite the patient needing hemodialysis. He was given 20 mEq of potassium chloride prior to discharge (4) Hypermagnesemia Is this a current diagnosis for this admission?: Yes Summary: Dietary consult was placed for education regarding low magnesium diet (5) Hypocalcemia Is this a current diagnosis for this admission?: Yes Summary: Due to noncompliance with his calcium supplement (6) Cocaine abuse Is this a current diagnosis for this admission?: Yes Summary: Recurrent problem causing severe noncompliance with his treatment plan (7) Noncompliance Is this a current diagnosis for this admission?: Yes Summary: As above - Additional Information Resuscitation Status: Full Code Discharge Diet: Other (Comments) - Renal/cardiac Discharge Activity: Activity As Tolerated, Balance Activity w/Rest, Weigh Daily Home Medications: Abacavir Sulfate [Abacavir 300 mg Tablet] 600 mg PO DAILY 07/15/18 Clonidine [Catapres-Tts 3 (0.3 mg/24 Hr) Transderm Patch] 1 patch TD GUTIÉRREZ@1000 07/15/18 Dolutegravir Sodium [Tivicay] 50 mg PO DAILY 07/15/18 Furosemide [Lasix 80 mg Tablet] 80 mg PO DAILY 07/15/18 Hydralazine HCl 100 mg PO Q8 07/15/18 Isosorbide Mononitrate [Isosorbide Mononitrate ER] 120 mg PO DAILY 07/15/18 Nitroglycerin [Nitrostat 0.4 mg (1/150 Gr) Tabs 25/Bottle] 1 tab SL Q5MP PRN 07/15/18 Warfarin Sodium [Coumadin 5 mg Tablet] 5 mg PO DAILY 07/15/18 Albuterol Sulfate [Proair HFA Inhalation Aerosol 8.5 gm MDI] 2 puff IH Q6HP PRN 07/27/18 Calcium Acetate 667 mg PO TID 07/27/18 Calcium Carbonate [Tums Chewable 500 mg Tab.chew] 1,000 mg PO DAILY 07/27/18 Lamivudine [Epivir] 5 ml PO DAILY 07/27/18 History of Present Illness Patient complains of: Shortness of breath History of Present Illness: KRISTY CANTU is a 63 year old male who continues to utilize cocaine and is noncompliant with his medical regimen. He presented to the emergency department once again with shortness of breath Hospital Course Hospital Course: Patient received hemodialysis and was discharged Physical Exam Vital Signs: Temp Pulse Resp BP Pulse Ox 98.2 F 87 18 155/90 H 97 07/29/18 13:40 07/29/18 13:40 07/29/18 13:40 07/29/18 13:40 07/29/18 13:40 Intake & Output 07/28/18 07/29/18 07/30/18 06:59 06:59 06:59 Output Total 5000 Balance -5000 Weight 74.389 kg General appearance: PRESENT: no acute distress Respiratory exam: PRESENT: rales - Bilateral Cardiovascular exam: PRESENT: RRR, +S1, +S2 GI/Abdominal exam: PRESENT: normal bowel sounds, soft. ABSENT: tenderness Extremities exam: PRESENT: other - Bilateral below-knee amputations Neurological exam: PRESENT: alert, awake, oriented to person, oriented to place, oriented to time, oriented to situation Results Laboratory Results: 07/28/18 18:49 07/29/18 10:47 07/29/18 07/29/18 07:36 10:47 Sodium 141.1 141.4 Potassium 4.2 D 3.2 L D Chloride 108 H 98 Carbon Dioxide 20 L 28 Anion Gap 13 15 BUN 68 H 24 H D Creatinine 9.08 H 3.86 H Est GFR ( Amer) 7 L 19 L Est GFR (Non-Af Amer) 6 L 16 L Glucose 115 H 90 Calcium 7.3 L 9.2 Magnesium 2.1 07/28/18 07/28/18 07/28/18 18:49 18:49 20:35 Troponin I 0.310 0.330 NT-Pro-B Natriuret Pep 53859 H Impressions: Chest X-Ray 07/28/18 18:52 IMPRESSION: Cardiomegaly. Suspect vascular congestion in the setting of COPD. Qualifiers - * PATIENT BEING DISCHARGED WITH ANY OF THE FOLLOWING DIAGNOSIS: No Plan Discharge Plan: Discharge to home. Time Spent: Less than 30 Minutes
--- NOTE | 2018-07-30 13:01 | Physician Advisory Note ---
Physician Advisor ProgressNote .: Pursuant to the plan for [facility], I have reviewed the medical record for this patient. Physician Advisor Statement: Status support: 63yo Medicare pt w/ESRD, chr syst/diast CHF w/EF 40%, HTN with episodes severe hypertensive urgency in past, ongoing cocaine abuse w/associated frequent noncompliance with meds/HD/appts, DM, HIV, prior DVT & PE being tx'd w/coumadin, COPD w/continued smoking, PVD, Rt BKA, Lt AKA, thrombectomy LUE, IVC filter, who had just been in ED 07/27 for SOB & was told to go to HD - presented 07/28 () PM to ED via EMS c/o resp distress. He reported he had no ride to HD on 07/27 (Fri) so missed HD. His last HD was Friday. EMS gave BIpap, & 20mg labetalol due to hypertension/tachycardia. In ED, initial HR 103, RR 23-24, O2 sat 100% on ? amount O2/BIpap. CXR showed vascular congestion. ED dr documents RR 23, "Resp distress, tight breath sounds, decreased air movement", and plan was Bipap, DUoneb, & Lasix - after which, ED dr documented pt did have some improvement. At 19:01, Bipap note documents "tachypnea", "unable to lie flat", FiO2 30%, "charge now". At 20:15, acute resp acidosis by ABG: ph 7.27, pCO2 19.3, bicarb 18.1, with pO2 >100 on FiO2 30%. At 21:49, nursing documentation in VS states resp effort was "SOB" and pt was receiving O2 per Bipap at that time. At 23:01, O2 sat documented 83% (presumably on RA). - Otherwise, O2 sats documented high 90s; amount O2 given not documented often, but when it is, it is consistently 30% FIO2 until mid-AM on 07/29 (Per VS section: at 19:01 on 07/28, and 00:55 & 16:54 on 07/29, + at 20:15 per ABG per Bipap notes at 19:01 & 00:55). At 23:07, attending documented bilateral rales, though also "NAD" at the time (while on Bipap). On 07/29 at 00:55, Bipap documentation note states "equipment in use" and FiO2 30%. At 07:58, Bipap documentation note states "equipment on standby", "pt stated used equipment all night and is presently receiving HD." Pt documented to be on room air on 07/29 at 10:04, 11:00, and 13:40. Therefore, pt's findings appear to have been consistent with Acute Hypoxemic Respiratory Failure at time of arrival, and ongoing until HD tx, with associated risks for progressive respiratory failure/intubation if he had not tolerated HD or worsened further before HD could be accomplished. 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 For these reasons, Inpatient status appears to have been appropriate at the time of Admission order, even though patient was able to be discharged in less than 2 MNs. CK
[2018-08-02] MEDS ORDERED: CLONIDINE 0.3 MG/24 HR PATCH.TDWK TD SCH (10:00)
== END 2018-07-29 18:31 | disposition home or self-care (01) | DRG 640 ==
LOC: ER 18:29 → EH 22:58
PROVIDERS: ADMIT Emergency Medicine; ATTEND Emergency Medicine
PROC: 5A09357 Assistance with Respiratory Ventilation, Less than 24 Consecutive Hours, Continuous Positive Airway Pressure (ICD-10-PCS; 2018-07-28)
PROC: 5A1D70Z Performance of Urinary Filtration, Intermittent, Less than 6 Hours Per Day (ICD-10-PCS; principal; 2018-07-29)
DX: E87.5 Hyperkalemia (principal); N18.6 End stage renal disease; J96.01 Acute respiratory failure with hypoxia; I13.2 Hypertensive heart and chronic kidney disease with heart failure and with stage 5 chronic kidney disease, or end stage renal disease; I50.42 Chronic combined systolic (congestive) and diastolic (congestive) heart failure; E11.22 Type 2 diabetes mellitus with diabetic chronic kidney disease; Z21 Asymptomatic human immunodeficiency virus [HIV] infection status; F14.10 Cocaine abuse, uncomplicated; E83.41 Hypermagnesemia; E11.51 Type 2 diabetes mellitus with diabetic peripheral angiopathy without gangrene; I50.84 End stage heart failure; M19.90 Unspecified osteoarthritis, unspecified site; K21.9 Gastro-esophageal reflux disease without esophagitis; E83.51 Hypocalcemia; E78.5 Hyperlipidemia, unspecified; F17.200 Nicotine dependence, unspecified, uncomplicated; R51 Headache; Z99.2 Dependence on renal dialysis; Z91.15 Patient's noncompliance with renal dialysis; Z86.718 Personal history of other venous thrombosis and embolism; Z79.01 Long term (current) use of anticoagulants; I25.2 Old myocardial infarction; Z86.711 Personal history of pulmonary embolism; Z79.4 Long term (current) use of insulin; Z89.511 Acquired absence of right leg below knee; Z89.612 Acquired absence of left leg above knee; Z82.49 Family history of ischemic heart disease and other diseases of the circulatory system; Z83.3 Family history of diabetes mellitus; Z82.3 Family history of stroke; Z91.19 Patient's noncompliance with other medical treatment and regimen
CPT/HCPCS: 36415; 71045; 80048; 80053; 80307; 81001; 82550; 82553; 82803; 82962; 83605; 83735; 83880; 84484; 85025; 85610; 85730; 87040; 87077; 93005; 93010; 94640; 94660; 96374; 99285; G0257; J0610; J1644; J1815; J1940; J3490; J7620

== ENCOUNTER 2018-08-07 01:37 | Emergency (ER) | payer MEDICARE, MEDICAID ==
--- NOTE | 2018-08-07 01:57 | ER Document Report ---
ED General - General Mode of Arrival: Medic Information source: Patient TRAVEL OUTSIDE OF THE [place] IN LAST 30 DAYS: No <ARUN PAULA - Last Filed: 08/07/18 02:04> <JORGE DAY - Last Filed: 08/07/18 03:59> - General Chief Complaint: Shortness Of Breath Stated Complaint: SHORTNESS OF BREATH Time Seen by Provider: 08/07/18 01:43 Notes: Patient is a 63 year old male with ESRD (on dialysis) HIV, diabetes, HTN, CHF and a history of DVT's, PE and cocaine abuse presents to the emergency department via EMS complaining of shortness of breath. Patient states he laid down and began to have chest tightness and shortness of breath around 0000 this morning. He proceeded to check his blood pressure and found it to be elevated. P josé miguelsami mentions running out of his Coumadin 4 days ago. (ARUN PAULA) The patient was seen here on 07/27/2018 and had not been taking his Coumadin at that time. He had been abusing cocaine as he frequently does. He was worked up, treated, and discharged in the morning and plenty of time to go to dialysis, but he did not go. He will return the emergency room the next day with pulmonary vascular congestion and was admitted. He told the hospitalist that he was not discharged in time to make it to dialysis, which is 1 of many untruths. Today he claims that he ran out of his Coumadin on 08/03/2018. He does not bring his medications with him to allow us to look at the bottles, and our computerized record systems did not show what occasions he fills or when he fills his medicines. He is complaining of feeling short of breath. He is not tachycardic and his room air pulse ox is 97%. He wants to know how can he tell that he is not getting blood clots. He does not seem so concerned about preventing the blood clots. He claims he has not been able to get his medication refilled because it has only been 2 days. I pointed out it is now 5 days since he ran out. He knew he was going to run out sooner than the day he ran out. He then states he does not have the money to get his medicine refilled, he is on Medicare and Medicaid and is on multiple medications and I do not believe that he has to pay for his Coumadin. Either way, he has plenty of money for his cocaine and cigarette abuse. (JORGE DAY) - Related Data Allergies/Adverse Reactions: calcitriol Allergy (Verified 07/27/18 06:39) itching Past Medical History - General Information source: Patient - Social History Smoking Status: Current Every Day Smoker Cigarette use (# per day): Yes Chew tobacco use (# tins/day): No Smoking Education Provided: No Drug Abuse: Cocaine Family History: CAD, CVA, DM, Hyperlipidemia, Hypertension, Malignancy - Past Medical History Cardiac Medical History: Reports: Hx Congestive Heart Failure - EF is 40%, with moderate diastolic dysfunction, Hx DVT, Hx Heart Attack, Hx Hypercholesterolemia, Hx Hypertension, Hx Peripheral Vascular Disease, Hx Pulmonary Embolism Pulmonary Medical History: Reports: Hx Bronchitis, Hx COPD, Hx Pneumonia, Hx Respiratory Failure Neurological Medical History: Endocrine Medical History: Reports: Hx Diabetes Mellitus Type 2 - insulin dependentComment Only: Hx Diabetes Mellitus Type 1 - 1.5 Renal/ Medical History: Reports: Hx End Stage Renal Disease, Hx Hemodialysis, Hx Renal Insufficiency GI Medical History: Reports: Hx Gastroesophageal Reflux Disease Musculoskeletal Medical History: Reports Hx Arthritis, 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, Reports Hx Musculoskeletal Trauma Infectious Medical History: Reports: Hx HIV Past Surgical History: Reports: Hx Orthopedic Surgery - bilateral amputation, R BKA, L AKA, Hx Vascular Surgery - left arm clot removed, IVC filter, thrombectom y 05/18/2018 left arm, Other - Endoscopy; Vascular surgery. - Immunizations Immunizations up to date: Yes Hx Diphtheria, Pertussis, Tetanus Vaccination: Yes Hx Pneumococcal Vaccination: 07/21/10 <ARUN PAULA - Last Filed: 08/07/18 02:04> Review of Systems - Review of Systems Constitutional: No symptoms reported EENT: No symptoms reported Cardiovascular: No symptoms reported Respiratory: See HPI, Short of breath Gastrointestinal: No symptoms reported Genitourinary: No symptoms reported Male Genitourinary: No symptoms reported Musculoskeletal: No symptoms reported Skin: No symptoms reported Hematologic/Lymphatic: No symptoms reported Neurological/Psychological: No symptoms reported -: Yes All other systems reviewed and negative <ARUN PAULA - Last Filed: 08/07/18 02:04> Physical Exam <ARUN PAULA - Last Filed: 08/07/18 02:04> - Vital signs Vitals: Resp 14 08/07/18 01:55 - Notes Notes: GENERAL: Alert, interacts well. No acute distress. HEAD: Normocephalic, atraumatic. EYES: Pupils equal, round, and reactive to light. Extraocular movements intact. ENT: Oral mucosa moist, tongue midline. NECK: Full range of motion. Supple. Trachea midline. LUNGS: Clear to auscultation bilaterally, no wheezes, rales, or rhonchi. No respiratory distress. HEART: Regular rate and rhythm, approximately 100 bpm. No murmurs, gallops, or rubs. ABDOMEN: Soft, non-tender. Non-distended. Bowel sounds present in all 4 quadrants. EXTREMITIES: Moves all 4 extremities spontaneously. Right BKA, left AKA. NEUROLOGICAL: Alert and oriented x3. Normal speech. PSYCH: Normal affect, normal mood. SKIN: Warm, dry, normal turgor. No rashes or lesions noted. (ARUN PAULA) Course - Laboratory Result Diagrams: 08/07/18 02:04 08/07/18 02:04 - Diagnostic Test Radiology reviewed: Image reviewed, Reports reviewed - Chest x-ray does not show any acute abnormality - EKG Interpretation by Me EKG shows normal: Sinus rhythm, [place], ST-T Waves. abnormal: Intervals - Prolonged QT interval, QRS Complexes - Consider anterior infarct Rate: Tachycardia - 101 [place]/QRS: LAHB/LAFB Voltage: Consistant with LVH When compared to previous EKG there are: No significant change <JORGE DAY - Last Filed: 08/07/18 03:59> - Re-evaluation Re-evalutation: 08/07/18 03:55 The patient is complaining of feeling shortness of breath, but his room air pulse ox is 98-99% with a pulse of about 96. His lungs are clear to auscultation, and his chest x-ray does not show infiltrate or pulmonary vascular congestion. He will receive a dose of Lovenox, Coumadin, hydralazine, Lasix, and Imdur and discharged home to take the rest of his daily medications. He is encouraged to go to dialysis today and talk with his doctors about his Coumadin acquisition problems. (JORGE DAY) - Vital Signs Vital signs: Temp Pulse Resp BP Pulse Ox 99.1 F 20 160/94 H 98 08/07/18 02:09 08/07/18 03:01 08/07/18 03:01 08/07/18 03:01 - Laboratory Laboratory results interpreted by me: 08/07/18 08/07/18 02:04 02:04 RBC 3.77 L Hgb 12.2 L Hct 35.3 L RDW 14.2 H Eosinophils % 7.2 H Chloride 108 H BUN 54 H Creatinine 6.93 H Est GFR ( Amer) 10 L Est GFR (Non-Af Amer) 8 L Calcium 7.9 L Creatine Kinase 212 H Discharge <ARUN PAULA - Last Filed: 08/07/18 02:04> <JORGE DAY - Last Filed: 08/07/18 03:59> - Discharge Clinical Impression: History of DVT (deep vein thrombosis), Substance abuse, continuous, Hx pulmonary embolism, ESRD needing dialysis, Noncompliance, Tobacco abuse Dyspnea Qualifiers: Dyspnea type: unspecified Qualified Code(s): R06.00 - Dyspnea, unspecified Hypertension Qualifiers: Hypertension type: essential hypertension Qualified Code(s): I10 - Essential (primary) hypertension HIV (human immunodeficiency virus infection) Qualifiers: HIV symptom status: unspecified Qualified Code(s): B20 - Human immunodeficiency virus [HIV] disease Condition: Stable Disposition: HOME, SELF-CARE Additional Instructions: Be sure to go to dialysis today. Talk to your doctors about obtaining your Coumadin prescription so you do not run out again. RETURN TO THE EMERGENCY ROOM IF ANY NEW OR WORSENING SYMPTOMS. Referrals: MATHIEU MACIAS FNP [Primary Care Provider] - Follow up as needed Scribe Attestation: 08/07/18 03:59 I personally performed the services described in the documentation, reviewed and edited the documentation which was dictated to the scribe in my presence, and it accurately records my words and actions. (JORGE DAY) Scribe Documentation - Scribe Written by Scribe:: Chayo Watters, 08/07/2018 01:59 acting as scribe for :: Saida <ARUN PAULA - Last Filed: 08/07/18 02:04>
[2018-08-07 02:22] LABS: ABSOLUTE BASOPHILS # (AUTO) 0.1 10^3/uL (0.0-0.2); ABSOLUTE EOSINOPHILS # (AUTO) 0.5 10^3/uL (0.0-0.6); ABSOLUTE MONOCYTES (AUTO) 0.8 10^3/uL (0.1-1.4); ABSOLUTE NEUT (AUTO) 3.9 10^3/uL (1.7-8.2); BASOPHILS % (AUTO) 1.1 % (0-2); EOSINOPHILS % (AUTO) 7.2 % (0-6); HEMATOCRIT 35.3 % (37.9-51.0); HEMOGLOBIN 12.2 g/dL (13.5-17.0); LYMPHOCYTES % (AUTO) 27.5 % (13-45); MEAN CORPUSCULAR HEMOGLOBIN 32.3 pg (27.0-33.4); MEAN CORPUSCULAR HGB CONC 34.5 g/dL (32.0-36.0); MEAN CORPUSCULAR VOLUME 94 fl (80-97); MONOCYTES % (AUTO) 10.5 % (3-13); PLATELET COUNT 219 10^3/uL (150-450); RED BLOOD COUNT 3.77 10^6/uL (4.35-5.55); RED CELL DISTRIBUTION WIDTH 14.2 % (11.5-14.0); SEGMENTED NEUTROPHILS % (AUTO) 53.7 % (42-78); TOTAL CELLS COUNTED % (AUTO) 100 %; WHITE BLOOD COUNT 7.3 10^3/uL (4.0-10.5)
[2018-08-07 02:29] LABS: INTERNATIONAL RATION (INR) 1.06; PROTHROMBIN TIME 14.3 SEC (11.4-15.4)
--- NOTE | 2018-08-07 02:42 | RADIOLOGY REPORT (SQ) ---
EXAM DESCRIPTION: XR CHEST 1 VIEW COMPLETED DATE/TME: 08/07/2018 01:54 CLINICAL HISTORY: 63 years, Male, SOB Comparison: July 28 2018 1914 hours FINDINGS: No focal lung consolidation. No pleural effusion. No pneumothorax. Cardiac and mediastinal silhouette is unremarkable. No acute osseous abnormality. Soft tissues are unremarkable. IMPRESSION: No acute findings. No focal lung consolidation.
[2018-08-07 02:44] LABS: ALANINE AMINOTRANSFERASE 27 U/L (21-72); ALBUMIN 4.4 g/dL (3.5-5.0); ALKALINE PHOSPHATASE 103 U/L (38-126); ANION GAP 11 (5-19); ASPARTATE AMINO TRANSFERASE 23 U/L (17-59); BILIRUBIN,DIRECT 0.4 mg/dL (0.0-0.4); BILIRUBIN,TOTAL 0.4 mg/dL (0.2-1.3); BLOOD UREA NITROGEN 54 mg/dL (7-20); CALCIUM 7.9 mg/dL (8.4-10.2); CARBON DIOXIDE 23 mmol/L (22-30); CHLORIDE 108 mmol/L (98-107); CREATINE KINASE 212 U/L (55-170); GLUCOSE 97 mg/dL (75-110); POTASSIUM 4.8 mmol/L (3.6-5.0); SODIUM 142.1 mmol/L (137-145); TOTAL PROTEIN 7.3 g/dL (6.3-8.2)
[2018-08-07 02:55] LABS: CREATINE KINASE MB 1.54 ng/mL (<4.55)
[2018-08-07 03:03] LABS: TROPONIN I 0.102 ng/mL
[2018-08-07] MEDS ORDERED: ENOXAPARIN SODIUM INJ 80 MG/0.8 ML DISP.SYRIN SUBCUT ONE (03:28)
[2018-08-07] MEDS ORDERED: WARFARIN SODIUM 5 MG TABLET PO ONE (03:33)
[2018-08-07] MEDS ORDERED: HYDRALAZINE HCL 50 MG TABLET PO ONE (03:36)
[2018-08-07] MEDS ORDERED: ISOSORBIDE MONONITRATE 60 MG TAB.ER.24H PO ONE (03:37)
[2018-08-07] MEDS ORDERED: FUROSEMIDE 80 MG TABLET PO ONE (03:44)
[2018-08-07] MEDS ORDERED: FUROSEMIDE 80 MG TABLET ONE (04:07)
[2018-08-07 06:35] VITALS: BP 168/96
--- NOTE | 2018-08-07 09:22 | EKG REPORT ---
SEVERITY:- ABNORMAL ECG - SINUS TACHYCARDIA LEFT ANTERIOR FASCICULAR BLOCK LVH WITH SECONDARY REPOLARIZATION ABNORMALITY CONSIDER ANTERIOR INFARCT PROLONGED QT INTERVAL : Confirmed by: Beulah Storm 07-Aug-2018 09:21:06
== END 2018-08-07 06:35 | disposition home or self-care (01) ==
LOC: ER 01:37
DX: I12.0 Hypertensive chronic kidney disease with stage 5 chronic kidney disease or end stage renal disease (principal); E11.22 Type 2 diabetes mellitus with diabetic chronic kidney disease; N18.6 End stage renal disease; Z99.2 Dependence on renal dialysis; E11.51 Type 2 diabetes mellitus with diabetic peripheral angiopathy without gangrene; J44.9 Chronic obstructive pulmonary disease, unspecified; Z86.711 Personal history of pulmonary embolism; Z86.718 Personal history of other venous thrombosis and embolism; T45.516A Underdosing of anticoagulants, initial encounter; Z91.120 Patient's intentional underdosing of medication regimen due to financial hardship; Z91.14 Patient's other noncompliance with medication regimen; F14.10 Cocaine abuse, uncomplicated; F17.210 Nicotine dependence, cigarettes, uncomplicated; Z21 Asymptomatic human immunodeficiency virus [HIV] infection status; R07.89 Other chest pain; R06.02 Shortness of breath; Z88.8 Allergy status to other drugs, medicaments and biological substances; I44.4 Left anterior fascicular block
CPT/HCPCS: 93005; 99285; 96372; 36415; 82553; 82550; 85025; 85610; 80053; 84484; 71045; 93010; A9270 ×4; J1650; J3490

== ENCOUNTER 2018-08-16 16:37 | Emergency (ER) | payer MEDICARE, MEDICAID ==
[2018-08-16 17:24] LABS: ABSOLUTE BASOPHILS # (AUTO) 0.1 10^3/uL (0.0-0.2); ABSOLUTE EOSINOPHILS # (AUTO) 0.3 10^3/uL (0.0-0.6); ABSOLUTE LYMPHOCYTES (AUTO) 2.2 10^3/uL (0.5-4.7); ABSOLUTE MONOCYTES (AUTO) 0.5 10^3/uL (0.1-1.4); ABSOLUTE NEUT (AUTO) 4.1 10^3/uL (1.7-8.2); EOSINOPHILS % (AUTO) 4.6 % (0-6); HEMOGLOBIN 11.8 g/dL (13.5-17.0); LYMPHOCYTES % (AUTO) 30.5 % (13-45); MEAN CORPUSCULAR HEMOGLOBIN 31.8 pg (27.0-33.4); MEAN CORPUSCULAR HGB CONC 33.7 g/dL (32.0-36.0); MEAN CORPUSCULAR VOLUME 94 fl (80-97); MONOCYTES % (AUTO) 7.1 % (3-13); PLATELET COUNT 195 10^3/uL (150-450); RED CELL DISTRIBUTION WIDTH 14.3 % (11.5-14.0); SEGMENTED NEUTROPHILS % (AUTO) 56.8 % (42-78); TOTAL CELLS COUNTED % (AUTO) 100 %; WHITE BLOOD COUNT 7.3 10^3/uL (4.0-10.5)
--- NOTE | 2018-08-16 17:25 | RADIOLOGY REPORT (SQ) ---
EXAM DESCRIPTION: CHEST SINGLE VIEW COMPLETED DATE/TIME: 08/16/2018 5:13 pm REASON FOR STUDY: cp COMPARISON: 08/07/2018 EXAM PARAMETERS: NUMBER OF VIEWS: One view. TECHNIQUE: Single frontal radiographic view of the chest acquired. RADIATION DOSE: NA LIMITATIONS: None. FINDINGS: LUNGS AND PLEURA: Linear opacity at the left base. Right lung is clear. MEDIASTINUM AND HILAR STRUCTURES: No masses. Contour normal. HEART AND VASCULAR STRUCTURES: Cardiac enlargement. Mild vascular congestion. Bogdan B-lines. BONES: No acute findings. HARDWARE: None in the chest. OTHER: No other significant finding. IMPRESSION: Acute pneumonitis at the left base. Interstitial pulmonary edema. TECHNICAL DOCUMENTATION: JOB ID: [id number] [employer]- All Rights Reserved Reading location - IP/workstation name: [email or web address]
[2018-08-16 17:43] LABS: ALANINE AMINOTRANSFERASE 49 U/L (21-72); ALBUMIN 4.1 g/dL (3.5-5.0); ALKALINE PHOSPHATASE 108 U/L (38-126); ANION GAP 9 (5-19); ASPARTATE AMINO TRANSFERASE 68 U/L (17-59); BILIRUBIN,DIRECT 0.3 mg/dL (0.0-0.4); BILIRUBIN,TOTAL 0.3 mg/dL (0.2-1.3); BLOOD UREA NITROGEN 47 mg/dL (7-20); CALCIUM 8.4 mg/dL (8.4-10.2); CARBON DIOXIDE 26 mmol/L (22-30); CHLORIDE 105 mmol/L (98-107); CREATINE KINASE 71 U/L (55-170); GLUCOSE 102 mg/dL (75-110); POTASSIUM 4.8 mmol/L (3.6-5.0); SODIUM 140.3 mmol/L (137-145); TOTAL PROTEIN 6.9 g/dL (6.3-8.2)
[2018-08-16 17:55] LABS: CREATINE KINASE MB 1.2 ng/mL (<4.55)
[2018-08-16 17:57] LABS: TROPONIN I 0.101 ng/mL
--- NOTE | 2018-08-16 18:07 | ER Document Report ---
ED General - General Chief Complaint: Chest Pain Stated Complaint: CHEST PAIN Time Seen by Provider: 08/16/18 17:35 Primary Care Provider: MATHIEU MACIAS FNP [Primary Care Provider] - Follow up as needed Mode of Arrival: Medic Information source: Patient TRAVEL OUTSIDE OF THE [place] IN LAST 30 DAYS: No - HPI Patient complains to provider of: Chest pain Onset: Other - 63-year-old man with a history of recurrent chest pain as well as cocaine abuse and a myriad of medical problems who presents for evaluation of right-sided chest pain which he says reminds him previously of similar episodes of pulmonary emboli, he is on blood thinning medications because of pulmonary emboli in the past as a result of DVTs which he has had mostly because of his loss of his limbs. He notes that the pain began today spontaneously without any preceding event. He is not take anything to try and help with it nothing is making it any better. Denies fevers or chills does note that he has been out of his warfarin because of the cost associated with it for 7 days he does not care to take any more. - Related Data Allergies/Adverse Reactions: calcitriol Allergy (Verified 08/16/18 17:54) itching Past Medical History - General Information source: Patient - Social History Smoking Status: Current Every Day Smoker Frequency of alcohol use: Occasional Drug Abuse: Cocaine Lives with: Alone Family History: CAD, CVA, DM, Hyperlipidemia, Hypertension, Malignancy Patient has suicidal ideation: No Patient has homicidal ideation: No - Past Medical History Cardiac Medical History: Reports: Hx Congestive Heart Failure - EF is 40%, with moderate diastolic dysfunction, Hx DVT, Hx Heart Attack, Hx Hypercholesterolemia, Hx Hypertension, Hx Peripheral Vascular Disease, Hx Pulmonary Embolism Pulmonary Medical History: Reports: Hx Bronchitis, Hx COPD, Hx Pneumonia, Hx Respiratory Failure Denies: Hx Asthma Neurological Medical History: Denies: Hx Migraine, Hx Seizures Endocrine Medical History: Reports: Hx Diabetes Mellitus Type 2 - insulin dependent. Denies: Hx Hyperthyroidism, Hx Hypothyroidism. Comment Only: Hx Diabetes Mellitus Type 1 - 1.5 Renal/ Medical History: Reports: Hx End Stage Renal Disease, Hx Hemodialysis, Hx Renal Insufficiency. Denies: Hx Peritoneal Dialysis GI Medical History: Reports: Hx Gastroesophageal Reflux Disease. Denies: Hx Crohn's Disease, Hx Ulcerative Colitis Musculoskeletal Medical History: Reports Hx Arthritis, Denies Hx Fibromyalgia, 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, Reports Hx Musculoskeletal Trauma Skin Medical History: Denies Hx Eczema, Denies Hx Psoriasis Psychiatric Medical History: Denies: Hx Depression Traumatic Medical History: Denies: Hx Traumatic Brain Injury Infectious Medical History: Reports: Hx HIV Past Surgical History: Reports: Hx Orthopedic Surgery - bilateral amputation, R BKA, L AKA, Hx Vascular Surgery - left arm clot removed, IVC filter, thrombectomy 05/18/2018 left arm, Other - Endoscopy; Vascular surgery. - Immunizations Immunizations up to date: Yes Hx Diphtheria, Pertussis, Tetanus Vaccination: Yes Hx Pneumococcal Vaccination: 07/21/10 Review of Systems - Review of Systems -: Yes All other systems reviewed and negative Physical Exam - Vital signs Vitals: Resp Pulse Ox 17 96 08/16/18 16:44 08/16/18 16:44 - General General appearance: Alert In distress: None - HEENT Head: Normocephalic Eyes: Normal Conjunctiva: Normal Cornea: Normal Extraocular movements intact: Yes Eyelashes: Normal Pupils: PERRL - Respiratory Respiratory status: No respiratory distress Chest status: Nontender Breath sounds: Normal Chest palpation: Normal - Cardiovascular Rhythm: Regular Heart sounds: Normal auscultation Murmur: No - Abdominal Inspection: Normal Distension: No distension Tenderness: Nontender - Back Back: Normal - Extremities General upper extremity: Normal inspection, Nontender, Normal color, Normal ROM, Normal temperature General lower extremity: Other - Bilateral lower amputee - Neurological Neuro grossly intact: Yes Cognition: Normal Orientation: AAOx4 [place] Coma Scale Eye Opening: Spontaneous [place] Coma Scale Verbal: Oriented [place] Coma Scale Motor: Obeys Commands [place] Coma Scale Total: 15 Speech: Normal Motor strength normal: LUE, RUE Sensory: Normal Course - Re-evaluation Re-evalutation: 63-year-old man with chronic chest pain as well as end-stage renal disease and multiple pulmonary embolisms in the past as well as cocaine abuse with chest pain on the right side. We will obtain CTA of the chest to troponins and reassess. Patient is a low level positive troponin which is consistent with his previous episodes, noteworthy that this is the patient's long interval for his dialysis and is not missed any episodes of dialysis. CTA does not demonstrate any blood clot in the lung. Will dose patient's warfarin, he notes that he is out of his warfarin in the out patient setting, did speak to him about the importance of obtaining warfarin, give him a prescription for warfarin, decided to dose him with Lovenox as a bridge until he is able to continue his low warfarin however he notes that he will just go to dialysis tomorrow and see what he can do. Rosalia this gentleman continues to smoke and use other medications stated that his blood thinning medications because he says it is inconvenient. Following 2- troponins in the emergency department with his CT I believe is likely safe for discharge with return precautions at this time he will follow-up in dialysis tomorrow to have his normal session - Vital Signs Vital signs: Temp Pulse Resp BP Pulse Ox 98.6 F 22 H 175/111 H 97 08/16/18 23:53 08/16/18 23:53 08/16/18 23:53 08/16/18 23:53 - Laboratory Result Diagrams: 08/16/18 17:11 08/16/18 17:11 Laboratory results interpreted by me: 08/16/18 08/16/18 17:11 17:11 RBC 3.70 L Hgb 11.8 L Hct 35.0 L RDW 14.3 H BUN 47 H Creatinine 7.32 H Est GFR ( Amer) 9 L Est GFR (Non-Af Amer) 8 L AST 68 H Discharge - Discharge Clinical Impression: ESRD needing dialysis, Noncompliance Chest pain Qualifiers: Chest pain type: unspecified Qualified Code(s): R07.9 - Chest pain, unspecified Hypertension Qualifiers: Hypertension type: unspecified Qualified Code(s): I10 - Essential (primary) hypertension Condition: Good Disposition: HOME, SELF-CARE Instructions: Coumadin (warfarin) ([facility]), Chest Pain of Unclear Cause ([facility]) Additional Instructions: You were seen today in the emergency department for the pain in your chest. You had evaluation including a physical exam as well as blood test and a CAT scan of your chest. No blood clot was identified. You have been given a prescription for your blood thinning medicine. You have been given a dose of blood thinning medicine to try and keep you from having a clot. You need to go for your dialysis tomorrow. In case of worsening chest pain shortness of breath coughing up blood or other symptoms please return to the emergency room as it could be a more serious condition. Prescriptions: Warfarin Sodium 5 mg PO DAILY #7 tablet Referrals: MATHIEU MACIAS FNP [Primary Care Provider] - Follow up as needed
--- NOTE | 2018-08-16 18:27 | RADIOLOGY REPORT (SQ) ---
EXAM DESCRIPTION: CTA CHEST COMPLETED DATE/TIME: 08/16/2018 6:11 pm REASON FOR STUDY: Shortness of breath. Dialysis patient. Concern for pulmonary emboli. COMPARISON: Chest x-ray 08/16/2018. CT angiogram chest 06/17/2018. TECHNIQUE: CT scan of the chest performed using helical scanning technique with dynamic intravenous contrast injection. Images reviewed with lung, soft tissue and bone windows. Reconstructed coronal and sagittal MPR images reviewed. Additional 3 dimensional post-processing performed to develop Maximal Intensity Projection images (OK P). All images stored on PACS. All CT scanners at this facility use dose modulation, iterative reconstruction, and/or weight based d osing when appropriate to reduce radiation dose to as low as reasonably achievable (ALARA). [facility]: Dose Right [facility]: CareDose [facility]: Dose Right [facility]: Teradose 4D [facility]: Health Essentials CONTRAST TYPE AND DOSE: contrast/concentration: Isovue 350.00 mg/ml; Total Contrast Delivered: 73.0 ml; Total Saline Delivered: 80.0 ml Contrast bolus optimized for the pulmonary arteries. Not diagnostic for the aorta. RENAL FUNCTION: Creatinine 6.93. Dialysis patient. RADIATION DOSE: CT Rad equipment meets quality standard of care and radiation dose reduction techniq ues were employed. CTDIvol: 16.3 - 19.8 mGy. DLP: 630 mGy-cm. . LIMITATIONS: None. FINDINGS: LUNGS AND PLEURA: There are mild bilateral emphysematous changes. Subsegmental atelectasi s at the lingula and the bilateral lower lobes. Trace right pleural effusion. No pneumothorax. AORTA AND GREAT VESSELS: No thoracic aortic aneurysm. Contrast bolus not optimized for the aorta. R edemonstration of occluded right axillary- femoral arterial vascular graft. HEART: No pericardial effusion. Scattered coronary artery calcifications. PULMONARY ARTERIES: No emboli visualized in the main pulmonary arteries or the segmental branches. HILAR AND MEDIASTINAL STRUCTURES: No identified masses or abnormal nodes. HARDWARE: None in the chest. UPPER ABDOMEN: Bilateral renal cortical atrophy. THYROID AND OTHER SOFT TISSUES: No masses. No adenopathy. BONES: Degenerative changes are noted at the spine. 3D MIPS: Confirm above findings. IMPRESSION: 1. No pulmonary emboli. 2. Mild emphysema. 3. Subsegmental atelectasis at the lingula and bilateral lower lobes. Trace right pleural effusion. COMMENT: Quality ID # [id number]: Final reports with documentation of one or more dose reduction techniques (e.g., Automated exposure control, adjustment of the mA and/or kV according to patient size, use of iterative reconstruction technique) TECHNICAL DOCUMENTATION: JOB ID: [id number] 2010 [employer]- All Rights Reserved Reading location - IP/workstation name: [email or web address]
[2018-08-16 19:21] LABS: INTERNATIONAL RATION (INR) 1.01; PROTHROMBIN TIME 13.8 SEC (11.4-15.4)
[2018-08-16] MEDS ORDERED: WARFARIN SODIUM 5 MG TABLET PO ONE (20:15)
[2018-08-16] MEDS ORDERED: CLONIDINE HCL 0.1 MG TABLET PO ONE (20:18)
[2018-08-16] MEDS ORDERED: ACETAMINOPHEN 325 MG TABLET PO ONE (20:18)
[2018-08-16] MEDS ORDERED: ENOXAPARIN SODIUM INJ 30 MG/0.3 ML DISP.SYRIN SUBCUT SCH (23:00)
[2018-08-16 23:56] VITALS: BP 175/111
--- NOTE | 2018-08-17 07:27 | EKG REPORT ---
SEVERITY:- ABNORMAL ECG - SINUS RHYTHM PROBABLE LEFT ATRIAL ABNORMALITY RIGHT AXIS DEVIATION ABNORMAL T, CONSIDER ISCHEMIA, INFERIOR LEADS PROLONGED QT INTERVAL : Confirmed by: Annita Coker MD 17-Aug-2018 07:26:35
== END 2018-08-16 23:56 | disposition home or self-care (01) ==
LOC: ER 16:37
DX: R07.9 Chest pain, unspecified (principal); E13.22 Other specified diabetes mellitus with diabetic chronic kidney disease; I13.2 Hypertensive heart and chronic kidney disease with heart failure and with stage 5 chronic kidney disease, or end stage renal disease; N18.6 End stage renal disease; F17.200 Nicotine dependence, unspecified, uncomplicated; I50.9 Heart failure, unspecified; E78.00 Pure hypercholesterolemia, unspecified; Z99.2 Dependence on renal dialysis; Z86.711 Personal history of pulmonary embolism; Z89.511 Acquired absence of right leg below knee; Z89.612 Acquired absence of left leg above knee; I25.2 Old myocardial infarction
CPT/HCPCS: 93005; 99285; 96372; 36415; 82553; 82550; 85025; 85610; 80053; 84484; 71045; 71275; 93010; A9270 ×3; J1650

== ENCOUNTER 2018-08-20 21:28 | Emergency (ER) | payer MEDICARE, MEDICAID ==
[2018-08-20 22:00] LABS: ABSOLUTE EOSINOPHILS # (AUTO) 0.2 10^3/uL (0.0-0.6); ABSOLUTE LYMPHOCYTES (AUTO) 1.9 10^3/uL (0.5-4.7); ABSOLUTE MONOCYTES (AUTO) 0.5 10^3/uL (0.1-1.4); ABSOLUTE NEUT (AUTO) 5.8 10^3/uL (1.7-8.2); BASOPHILS % (AUTO) 0.3 % (0-2); EOSINOPHILS % (AUTO) 2.1 % (0-6); HEMATOCRIT 34.6 % (37.9-51.0); HEMOGLOBIN 11.8 g/dL (13.5-17.0); LYMPHOCYTES % (AUTO) 22.4 % (13-45); MEAN CORPUSCULAR HGB CONC 34.2 g/dL (32.0-36.0); MEAN CORPUSCULAR VOLUME 94 fl (80-97); MONOCYTES % (AUTO) 5.7 % (3-13); PLATELET COUNT 198 10^3/uL (150-450); RED BLOOD COUNT 3.69 10^6/uL (4.35-5.55); RED CELL DISTRIBUTION WIDTH 14.1 % (11.5-14.0); SEGMENTED NEUTROPHILS % (AUTO) 69.5 % (42-78); TOTAL CELLS COUNTED % (AUTO) 100 %; WHITE BLOOD COUNT 8.3 10^3/uL (4.0-10.5)
[2018-08-20 22:15] LABS: ALANINE AMINOTRANSFERASE 38 U/L (21-72); ALBUMIN 4.2 g/dL (3.5-5.0); ALKALINE PHOSPHATASE 100 U/L (38-126); ANION GAP 16 (5-19); ASPARTATE AMINO TRANSFERASE 32 U/L (17-59); BILIRUBIN,DIRECT 0.3 mg/dL (0.0-0.4); BILIRUBIN,TOTAL 0.3 mg/dL (0.2-1.3); BLOOD UREA NITROGEN 66 mg/dL (7-20); CALCIUM 7.9 mg/dL (8.4-10.2); CARBON DIOXIDE 18 mmol/L (22-30); CHLORIDE 107 mmol/L (98-107); CREATINE KINASE 139 U/L (55-170); GLUCOSE 118 mg/dL (75-110); POTASSIUM 4.6 mmol/L (3.6-5.0); SODIUM 140.5 mmol/L (137-145); TOTAL PROTEIN 6.6 g/dL (6.3-8.2)
--- NOTE | 2018-08-20 22:29 | RADIOLOGY REPORT (SQ) ---
XR CHEST 1 VIEW HISTORY: sob COMPARISON: 08/16/2018 FINDINGS: Query cardiomegaly with mild pulmonary vascular congestion. There is unchanged opacity at the left lung base. Right lung base atelectasis is also present. No large pleural effusions or pneumothorax. There are no acute osseous findings. IMPRESSION: Left lung base opacity. No large pleural effusions. Mild pulmonary edema.
--- NOTE | 2018-08-20 22:37 | ER Document Report ---
ED General - General Chief Complaint: Respiratory Distress Stated Complaint: DIFFICULTY BREATHING Time Seen by Provider: 08/20/18 21:47 Primary Care Provider: GRZEGORZ SCHILLING DO [ASSOCIATE] - Follow up as needed MATHIEU MACIAS FNP [Primary Care Provider] - Follow up as needed JUNITO CALLEJAS MD [ACTIVE STAFF] - Follow up as needed Notes: 63-year-old -L[place] male, bilateral BKA, renal failure on dialysis, h istory of CVA, history of cocaine abuse to the emergency department for evaluation of shortness of breath. EMS arrived and found patient with significant difficulty breathing. Had reportedly used some bronchodilator but was not getting better. EMS states initial blood pressure was 250/120. Crack les at the base bilaterally. Nitropaste was placed. Patient was given Vasotec. Placed on CPAP. Brought to the ED. On arrival, patient feeling much better. Patient was immediately placed on BiPAP. Also, patient states that he has had a large amount of swelling in his neck. States that the swelling in the neck started today. TRAVEL OUTSIDE OF THE [place] IN LAST 30 DAYS: No - HPI Onset: This morning Onset/Duration: Gradual, Worse Severity: Severe Associated symptoms: Other - Neck swelling - Related Data Allergies/Adverse Reactions: calcitriol Allergy (Verified 08/16/18 17:54) itching Past Medical History - General Information source: Patient, Emergency Med Personnel - Social History Smoking Status: Current Every Day Smoker Frequency of alcohol use: Occasional Drug Abuse: Cocaine Lives with: Alone Family History: CAD, CVA, DM, Hyperlipidemia, Hypertension, Malignancy Patient has suicidal ideation: No Patient has homicidal ideation: No - Past Medical History Cardiac Medical History: Reports: Hx Congestive Heart Failure - EF is 40%, with moderate diastolic dysfunction, Hx DVT, Hx Heart Attack, Hx Hyperch olesterolemia, Hx Hypertension, Hx Peripheral Vascular Disease, Hx Pulmonary Embolism Pulmonary Medical History: Reports: Hx Bronchitis, Hx COPD, Hx Pneumonia, Hx Respiratory Failure Denies: Hx Asthma Neurological Medical History: Denies: Hx Migraine, Hx Seizures Endocrine Medical History: Reports: Hx Diabetes Mellitus Type 2 - insulin dependent. Denies: Hx Hyperthyroidism, Hx Hypothyroidism. Comment Only: Hx Diabetes Mellitus Type 1 - 1.5 Renal/ Medical History: Reports: Hx End Stage Renal Disease, Hx Hemodialysis, Hx Renal Insufficiency. Denies: Hx Peritoneal Dialysis GI Medical History: Reports: Hx Gastroesophageal Reflux Disease. Denies: Hx Crohn's Disease, Hx Ulcerative Colitis Musculoskeletal Medical History: Reports Hx Arthritis, Denies Hx Fibromyalgia, 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, Reports Hx Muscul oskeletal Trauma Skin Medical History: Denies Hx Eczema, Denies Hx Psoriasis Psychiatric Medical History: Denies: Hx Depression Traumatic Medical History: Denies: Hx Traumatic Brain Injury Infectious Medical History: Reports: Hx HIV Past Surgical History: Reports: Hx Orthopedic Surgery - bilateral amputation, R BKA, L AKA, Hx Vascular Surgery - left arm clot removed, IVC filter, thrombectomy 05/18/2018 left arm, Other - Endoscopy; Vascular surgery. - Immunizations Immunizations up to date: Yes Hx Diphtheria, Pertussis, Tetanus Vaccination: Yes Hx Pneumococcal Vaccination: 07/21/10 Review of Systems - Review of Systems -: Yes ROS unobtainable due to patient's medical condition - Patient is in in extremis and on BiPAP making communication nearly impossib Physical Exam - Vital signs Vitals: Pulse Ox 100 08/20/18 21:33 Interpretation: Hypertensive, Tachycardic, Tachypneic - General General appearance: Appears well, Alert, Anxious In distress: Moderate - HEENT Head: Normocephalic, Atraumatic Eyes: Normal Pupils: PERRL Nasal: Normal Mouth/Lips: Normal Mucous membranes: Normal Pharynx: Normal Neck: Neck mass, Other - Patient has very large swollen bilateral submandibular salivary glands versus lymph nodes. No liquids angina. No swelling of the tongue. Range of motion of the neck. No stridor.. No: Meningismus - Respiratory Respiratory status: No respiratory distress Chest status: Nontender Breath sounds: Rales. No: Stridor, Wheezing Chest palpation: Normal - Cardiovascular Rhythm: Tachycardia Heart sounds: Normal auscultation Murmur: No - Abdominal Inspection: Normal Distension: No distension Bowel sounds: Normal Tenderness: Nontender Organomegaly: No organomegaly - Back Back: Normal, Nontender - Extremities General upper extremity: Normal inspection, Nontender, Normal color, Normal ROM, Normal temperature, Other - Positive thrill and bruit in the left upper extremity AV fistula site. General lower extremity: Normal inspection, Nontender, Normal color, Normal ROM, Normal temperature, Other - Bilateral below the knee amputee.. No: Jun's sign - Neurological Neuro grossly intact: Yes Cognition: Normal Orientation: AAOx4 Star Coma Scale Eye Opening: Spontaneous [place] Coma Scale Verbal: Oriented Star Coma Scale Motor: Obeys Commands [place] Coma Scale Total: 15 Speech: Normal Motor strength normal: LUE, RUE, LLE, RLE Sensory: Normal - Psychological Associated symptoms: Normal affect, Normal mood - Skin Skin Temperature: Warm Skin Moisture: Dry Skin Color: Normal Course - Re-evaluation Re-evalutation: 08/21/18 03:50 08/20/18 21:41 08/20/18 21:41 MCV 94 fl (80-97) 08/20/18 21:41 MCH 32.0 pg (27.0-33.4) 08/20/18 21:41 MCHC 34.2 g/dL (32.0-36.0) 08/20/18 21:41 RDW 14.1 % (11.5-14.0) H 08/20/18 21:41 Seg Neutrophils % 69.5 % (42-78) 08/20/18 21:41 Lymphocytes % 22.4 % (13-45) 08/20/18 21:41 Monocytes % 5.7 % (3-13) 08/20/18 21:41 Eosinophils % 2.1 % (0-6) 08/20/18 21:41 Basophils % 0.3 % (0-2) 08/20/18 21:41 Absolute Neutrophils 5.8 10^3/uL (1.7-8.2) 08/20/18 21:41 Absolute Lymphocytes 1.9 10^3/uL (0.5-4.7) 08/20/18 21:41 Absolute Monocytes 0.5 10^3/uL (0.1-1.4) 08/20/18 21:41 Absolute Eosinophils 0.2 10^3/uL (0.0-0.6) 08/20/18 21:41 Absolute Basophils 0.0 10^3/uL (0.0-0.2) 08/20/18 21:41 Carbonic Acid 1.01 mmol/L (1.05-1.35) L 08/20/18 23:25 HCO3/H2CO3 Ratio 18:1 08/20/18 23:25 ABG pH 7.36 (7.35-7.45) 08/20/18 23:25 ABG pCO2 33.7 mmHg (35-45) L 08/20/18 23:25 ABG pO2 116.5 mmHg (80-100) H 08/20/18 23:25 ABG HCO3 18.7 mmol/L (20-24) L 08/20/18 23:25 ABG O2 Saturation 98.2 % (94-98) H 08/20/18 23:25 ABG Base Excess -5.9 mmol/L 08/20/18 23:25 FiO2 30% 08/20/18 23:25 Chloride 107 mmol/L (98-107) 08/20/18 21:41 Carbon Dioxide 18 mmol/L (22-30) L 08/20/18 21:41 Anion Gap 16 (5-19) 08/20/18 21:41 Est GFR ( Amer) 8 (>60) L 08/20/18 21:41 Est GFR (Non-Af Amer) 6 (>60) L 08/20/18 21:41 Glucose 118 mg/dL (75-110) H 08/20/18 21:41 Calcium 7.9 mg/dL (8.4-10.2) L 08/20/18 21:41 Total Bilirubin 0.3 mg/dL (0.2-1.3) 08/20/18 21:41 AST 32 U/L (17-59) 08/20/18 21:41 ALT 38 U/L (21-72) 08/20/18 21:41 Alkaline Phosphatase 100 U/L (38-126) 08/20/18 21:41 Total Protein 6.6 g/dL (6.3-8.2) 08/20/18 21:41 Albumin 4.2 g/dL (3.5-5.0) 08/20/18 21:41 Urine Color YELLOW 08/21/18 01:45 Urine Appearance CLEAR 08/21/18 01:45 Urine pH 8.0 (5.0-9.0) 08/21/18 01:45 Ur Specific [place] 1.013 08/21/18 01:45 Urine Protein 100 mg/dL (NEGATIVE) H 08/21/18 01:45 Urine Glucose (UA) 50 mg/dL (NEGATIVE) H 08/21/18 01:45 Urine Ketones NEGATIVE mg/dL (NEGATIVE) 08/21/18 01:45 Urine Blood NEGATIVE (NEGATIVE) 08/21/18 01:45 Urine Nitrite NEGATIVE (NEGATIVE) 08/21/18 01:45 Ur Leukocyte Esterase NEGATIVE (NEGATIVE) 08/21/18 01:45 Urine WBC (Auto) 4 /HPF 08/21/18 01:45 Urine RBC (Auto) 1 /HPF 08/21/18 01:45 08/20/18 08/20/18 21:41 21:41 Creatine Kinase 139 CK-MB (CK-2) 1.46 Troponin I 0.063 NT-Pro-B Natriuret Pep 53943 H Chest X-Ray 08/20/18 21:48 IMPRESSION: Left lung base opacity. No large pleural effusions. Mild pulmonary edema. Chest X-Ray 08/20/18 21:48 IMPRESSION: Left lung base opacity. No large pleural effusions. Mild pulmonary edema. Patient's blood pressure is normalized nicely. Has been off BiPAP now for enrike ral hours with oxygen levels normal, blood pressure in the 120s over 80s. Sats are 100% on room air. CT scan shows swollen salivary glands bilaterally but no airway involvement. At this time patient more likely had some flash pulmonary edema with his hypertension and dialysis as well as cocaine abuse. Patient advised that he needs to follow-up with ENT. Also advised strictly to have his dialysis today because of the contrast which we gave him for the CT scan. Patient's labs are at baseline or better. Will give some Decadron here today. Will DC in stable condition. - Vital Signs Vital signs: Temp Pulse Resp BP Pulse Ox 14 132/77 H 100 08/21/18 02:31 08/21/18 02:31 08/21/18 02:31 - Laboratory Result Diagrams: 08/20/18 21:41 08/20/18 21:41 Laboratory results interpreted by me: 08/20/18 08/20/18 08/20/18 21:41 21:41 21:41 RBC 3.69 L Hgb 11.8 L Hct 34.6 L RDW 14.1 H Carbonic Acid ABG pCO2 ABG pO2 ABG HCO3 ABG Total CO2 ABG O2 Saturation Carbon Dioxide 18 L BUN 66 H Creatinine 8.60 H Est GFR ( Amer) 8 L Est GFR (Non-Af Amer) 6 L Glucose 118 H Calcium 7.9 L NT-Pro-B Natriuret Pep 67557 H Urine Protein Urine Glucose (UA) 08/20/18 08/21/18 23:25 01:45 RBC Hgb Hct RDW Carbonic Acid 1.01 L ABG pCO2 33.7 L ABG pO2 116.5 H ABG HCO3 18.7 L ABG Total CO2 19.7 L ABG O2 Saturation 98.2 H Carbon Dioxide BUN Creatinine Est GFR ( Amer) Est GFR (Non-Af Amer) Glucose Calcium NT-Pro-B Natriuret Pep Urine Protein 100 H Urine Glucose (UA) 50 H Critical Care Note - Critical Care Note Total time excluding time spent on procedures (mins): 45 Comments: Hypertension, tachycardia, respiratory distress. Discharge - Discharge Clinical Impression: Flash pulmonary edema, Cocaine abuse, Acute sialoadenitis Condition: Good Disposition: HOME, SELF-CARE Instructions: Cocaine Abuse ([facility]), Congestive Heart Failure ([facility]) Additional Instructions: The salivary glands in her neck appear to be swollen. The most common cause for this on both sides would be a viral process. This more more than likely resolve on its own. We gave you some steroids here which may help. We are advising that you follow-up with a neck specialist called an ENT physician. Please call their office for an appointment as soon as possible. Referrals: MATHIEU MACIAS FNP [Primary Care Provider] - Follow up as needed JUNITO CALLEJAS MD [ACTIVE STAFF] - Follow up as needed GRZEGORZ SCHILLING DO [ASSOCIATE] - Follow up as needed
[2018-08-20 22:39] LABS: CREATINE KINASE MB 1.46 ng/mL (<4.55)
[2018-08-20 22:48] LABS: TROPONIN I 0.063 ng/mL
[2018-08-20 23:42] LABS: ARTERIAL BLOOD BASE EXCESS -5.9 mmol/L; ARTERIAL BLOOD H2CO3 1.01 mmol/L (1.05-1.35); ARTERIAL BLOOD HCO3 18.7 mmol/L (20-24); ARTERIAL BLOOD O2 SATURATION 98.2 % (94-98); ARTERIAL BLOOD PCO2 33.7 mmHg (35-45); ARTERIAL BLOOD PH 7.36 (7.35-7.45); ARTERIAL BLOOD PO2 116.5 mmHg (80-100); ARTERIAL BLOOD TOTAL CO2 19.7 mmol/L (23-27)
[2018-08-20 23:43] LABS: ARTERIAL BLOOD FIO2 30%
--- NOTE | 2018-08-21 01:45 | RADIOLOGY REPORT (SQ) ---
EXAM DESCRIPTION: CT NECK CHEST WITH IV CONTRAST COMPLETED DATE/TME: 08/20/2018 23:54 CLINICAL HISTORY: 63 years Male, neck mass Comparison: July 23, 2016. CT, head, March 11, 2018, March 01, 2016. Technique: IV contrast. Coronal and sagittal reformat. This exam was performed according to our departmental dose-optimization program, which includes automated exposure control, adjustment of the mA and/or kV according to patient size and/or use of iterative reconstruction technique. [facility]: Dose Right [facility]: CareDose [facility]: Dose Right [facility]: Teradose 4D [facility]: [employer] LIMITATIONS: None Findings: Orbits, paranasal sinuses, and skull base: Normal. Nasopharynx: Normal. Suprahyoid neck: Normal oropharynx, oral cavity, parapharyngeal space, and retropharyngeal space. Infrahyoid neck: Normal larynx, hypopharynx, and supraglottis. Thyroid: Normal. Thoracic inlet: Normal lung apices and brachial plexus. Lymph nodes: Normal. No lymphadenopathy. Vascular structures: Normal. Other findings: Mild-moderate diffuse enlargement of the salivary glands. No sialolith. Mild disc desiccation between the C4 and C6 levels. Small mucous at the carmen and right main bronchus. Atherosclerotic vascular disease. Impression: Mild/moderate diffuse enlargement of the salivary glands suggestive of acute viral sialadenitis. Differential etiologies include Sjogren's syndrome, sarcoidosis, and metastatic/neoplastic processes.
[2018-08-21 02:08] LABS: APPEARANCE,URINE CLEAR; BILIRUBIN,URINE NEGATIVE (NEGATIVE); COLOR,URINE YELLOW; GLUCOSE, URINE 50 mg/dL (NEGATIVE); KETONES,URINE NEGATIVE (NEGATIVE); LEUKOCYTE ESTERASE,URINE NEGATIVE (NEGATIVE); NITRITE,URINE NEGATIVE (NEGATIVE); PROTEIN,URINE 100 mg/dL (NEGATIVE); URINE SPECIFIC GRAVITY 1.013; UROBILINOGEN,URINE NEGATIVE mg/dL (<2.0)
[2018-08-21 02:30] LABS: URINE AMPHETAMINES SCREEN NEGATIVE; URINE BARBITURATES SCREEN NEGATIVE; URINE BENZODIAZEPINES SCREEN NEGATIVE; URINE COCAINE SCREEN UNCONFIRMED POSITIVE; URINE MARIJUANA (THC) SCREEN NEGATIVE; URINE METHADONE SCREEN NEGATIVE; URINE PHENCYCLIDINE SCREEN NEGATIVE
[2018-08-21] MEDS ORDERED: DEXAMETHASONE SOD PHOS INJ 10 MG/1 ML VIAL IV ONE (02:53)
[2018-08-21 04:48] VITALS: BP 141/74
--- NOTE | 2018-08-21 07:57 | EKG REPORT ---
SEVERITY:- ABNORMAL ECG - SINUS TACHYCARDIA PROBABLE LEFT ATRIAL ABNORMALITY LVH WITH SECONDARY REPOLARIZATION ABNORMALITY PROLONGED QT INTERVAL LAFB : Confirmed by: Marco Young MD 21-Aug-2018 07:57:09
== END 2018-08-21 03:48 | disposition home or self-care (01) ==
LOC: ER 21:28
DX: J81.1 Chronic pulmonary edema (principal); I12.0 Hypertensive chronic kidney disease with stage 5 chronic kidney disease or end stage renal disease; E11.22 Type 2 diabetes mellitus with diabetic chronic kidney disease; N18.6 End stage renal disease; Z99.2 Dependence on renal dialysis; E11.51 Type 2 diabetes mellitus with diabetic peripheral angiopathy without gangrene; F14.10 Cocaine abuse, uncomplicated; K11.21 Acute sialoadenitis; R00.0 Tachycardia, unspecified; F17.200 Nicotine dependence, unspecified, uncomplicated; R06.02 Shortness of breath; Z88.8 Allergy status to other drugs, medicaments and biological substances; Z21 Asymptomatic human immunodeficiency virus [HIV] infection status; Z89.512 Acquired absence of left leg below knee; Z89.511 Acquired absence of right leg below knee
CPT/HCPCS: 93005; 99291; 96374; 36415; 82553; 82803; 82550; 85025; 86308; 80053; 81001; 84484; 80307; 83880; 71045; 70491; 93010; 94660; J1100

== ENCOUNTER 2018-08-31 09:40 | Emergency (ER) | payer MEDICARE, MEDICAID ==
[2018-08-31] MEDS ORDERED: ACETAMINOPHEN 325 MG TABLET PO ONE (10:07)
[2018-08-31] MEDS ORDERED: IPRATROPIUM/ALBUTEROL 0.5-2.5 MG/3 ML AMPUL NEB ONE (10:07)
--- NOTE | 2018-08-31 10:42 | RADIOLOGY REPORT (SQ) ---
EXAM DESCRIPTION: CHEST SINGLE VIEW COMPLETED DATE/TIME: 08/31/2018 10:20 am REASON FOR STUDY: Dyspnea COMPARISON: 08/20/2018 EXAM PARAMETERS: NUMBER OF VIEWS: One view. TECHNIQUE: Single frontal radiographic view of the chest acquired. RADIATION DOSE: NA LIMITATIONS: None. FINDINGS: LUNGS AND PLEURA: Increased mild, diffuse bilateral interstitial pulmonary opacity. No si gnificant change in minimal left basilar heterogeneous opacity and small bilateral pleural effusions and/or pleural thickening. MEDIASTINUM AND HILAR STRUCTURES: No masses. Contour normal. HEART AND VASCULAR STRUCTURES: Unchanged cardiomegaly. BONES: No acute findings. HARDWARE: None in the chest. OTHER: No other significant finding. IMPRESSION: Increased mild, diffuse bilateral interstitial pulmonary opacity, likely pulmonary edema in the setting of cardiomegaly. No significant change in minimal left basilar heterogeneous opacity and small bilateral pleural effusions and/or pleural thickening. TECHNICAL DOCUMENTATION: JOB ID: [id number] [employer]- All Rights Reserved Reading location - IP/workstation name: [email or web address]
[2018-08-31 10:54] LABS: ABSOLUTE LYMPHOCYTES (AUTO) 1.1 10^3/uL (0.5-4.7); ABSOLUTE MONOCYTES (AUTO) 0.4 10^3/uL (0.1-1.4); ABSOLUTE NEUT (AUTO) 4.6 10^3/uL (1.7-8.2); BASOPHILS % (AUTO) 0.3 % (0-2); EOSINOPHILS % (AUTO) 0.6 % (0-6); HEMATOCRIT 32.2 % (37.9-51.0); HEMOGLOBIN 10.9 g/dL (13.5-17.0); LYMPHOCYTES % (AUTO) 18.3 % (13-45); MEAN CORPUSCULAR HEMOGLOBIN 31.7 pg (27.0-33.4); MEAN CORPUSCULAR HGB CONC 33.6 g/dL (32.0-36.0); MEAN CORPUSCULAR VOLUME 94 fl (80-97); MONOCYTES % (AUTO) 6.3 % (3-13); PLATELET COUNT 212 10^3/uL (150-450); RED BLOOD COUNT 3.42 10^6/uL (4.35-5.55); RED CELL DISTRIBUTION WIDTH 14.2 % (11.5-14.0); SEGMENTED NEUTROPHILS % (AUTO) 74.5 % (42-78); TOTAL CELLS COUNTED % (AUTO) 100 %; WHITE BLOOD COUNT 6.2 10^3/uL (4.0-10.5)
[2018-08-31 11:14] LABS: ALANINE AMINOTRANSFERASE 186 U/L (21-72); ALBUMIN 3.8 g/dL (3.5-5.0); ALKALINE PHOSPHATASE 107 U/L (38-126); ANION GAP 15 (5-19); ASPARTATE AMINO TRANSFERASE 187 U/L (17-59); BILIRUBIN,DIRECT 0.3 mg/dL (0.0-0.4); BILIRUBIN,TOTAL 0.3 mg/dL (0.2-1.3); BLOOD UREA NITROGEN 80 mg/dL (7-20); CALCIUM 7.4 mg/dL (8.4-10.2); CARBON DIOXIDE 19 mmol/L (22-30); CHLORIDE 109 mmol/L (98-107); CREATINE KINASE 118 U/L (55-170); GLUCOSE 116 mg/dL (75-110); POTASSIUM 4.6 mmol/L (3.6-5.0); SODIUM 142.8 mmol/L (137-145); TOTAL PROTEIN 6.3 g/dL (6.3-8.2)
[2018-08-31] MEDS ORDERED: FUROSEMIDE INJ/PF 100 MG/10 ML SDV IV ONE (12:38)
[2018-08-31 13:06] LABS: INTERNATIONAL RATION (INR) 1.11; PROTHROMBIN TIME 14.9 SEC (11.4-15.4)
[2018-08-31 13:56] LABS: APPEARANCE,URINE CLEAR; BILIRUBIN,URINE NEGATIVE (NEGATIVE); COLOR,URINE YELLOW; GLUCOSE, URINE 50 mg/dL (NEGATIVE); KETONES,URINE NEGATIVE (NEGATIVE); LEUKOCYTE ESTERASE,URINE TRACE (NEGATIVE); NITRITE,URINE NEGATIVE (NEGATIVE); PROTEIN,URINE 100 mg/dL (NEGATIVE); URINE SPECIFIC GRAVITY 1.013; UROBILINOGEN,URINE NEGATIVE mg/dL (<2.0)
[2018-08-31 14:14] LABS: URINE AMPHETAMINES SCREEN NEGATIVE; URINE BARBITURATES SCREEN NEGATIVE; URINE BENZODIAZEPINES SCREEN NEGATIVE; URINE COCAINE SCREEN UNCONFIRMED POSITIVE; URINE MARIJUANA (THC) SCREEN NEGATIVE; URINE METHADONE SCREEN NEGATIVE; URINE PHENCYCLIDINE SCREEN NEGATIVE
--- NOTE | 2018-08-31 19:24 | PDOC CONSULTATION ---
Consultation Consult Date: 08/31/18 Attending physician:: JORGE DAY Consult reason:: I was asked to see the patient to evaluate for need for emergency dialysis due to acute pulmonary edema. History of Present Illness Admission Date/PCP: ARUN MORA History of Present Illness: KRISTY CANTU is a 63 year old male with known history of end-stage renal disease on hemodialysis on Mondays, Wednesdays and Fridays, hypertension, HIV positive, cocaine addiction, and peripheral vascular disease status post bilateral amputation who presented himself to the emergency room today because of shortness of breath. Patient relates that he was just discharged from [facility] yesterday after he was admitted from Friday, August 29 to yesterday August 30. This paperwork indicated that he must have been admitted for possibility of bronchitis and pneumonia as he claims. He was discharged on doxycycline and prednisone and has an appointment with infectious disease on September 03. He relates that this morning while he was preparing getting dressed up to go to [facility] for his hemodialysis he felt short of breath so he went to the emergency room instead. Initial chest x-ray showed findings consistent with acute pulmonary edema. Patient's last dialysis was Friday of last week. He has an appointment on Friday to see an ENT specialist for his lymphadenopathy so he arranged for dialysis at [facility] here in [place] on Friday. However as mentioned above he was admitted to [facility] but unfortunately did not get any dialysis treatment over there. He reports some dry cough and some chest tightness but denies any fever, nausea or vomiting. He claims he had a diarrhea this morning but has now resolved. Since today is the patient's dialysis day and he has missed his dialysis treatment on Friday with findings of acute pulmonary edema today I arrange for an emergency dialysis treatment in the emergency room. So I am seeing the pat iegasper on dialysis in the emergency room earlier tonight. He seems to be very comfortable actually not requiring any oxygen. He is tolerating dialysis very well without any problems. He is being closely monitored by our dialysis nurse. Past Medical History Cardiac Medical History: Reports: CHF-Diastolic, DVT, Hyperlipidemia, Hypertension-primary, Myocardial Infarction, Peripheral Vascular Disease, Pulmonary Embolism Pulmonary Medical History: Reports: Bronchitis, Chronic Obstructive Pulmonary Disease (COPD), Pneumonia, Respiratory Failure Endocrine Medical History: Reports: Diabetes Mellitus Type 2 - insulin dependent Comment Only: Diabetes Mellitus Type 1 - 1.5 Renal/ Medical History: Reports: End Stage Renal Disease, Hyperphosphatemia, Metabolic Acidosis, Secondary Hyperparathyroidism GI Medical History: Reports: Gastroesophageal Reflux Disease Musculoskeltal Medical History: Reports: Arthritis Infectious Medical History: Reports: HIV Hematology Medical History: Reports Anemia of Chronic Kidney Disease Past Surgical History Past Surgical History: Reports: Dialysis Access Surgery AVF, Orthopedic Surgery - bilateral amputation: R BKA, L AKA, Vascular Surgery - left arm clot removed, IVC filter, thrombectomy 05/18/2018 left arm, Other - Endoscopy; Vascular surgery. Social History Information Source: Patient Lives with: Alone Smoking Status: Current Every Day Smoker Frequency of Alcohol Use: None Hx Recreational Drug Use: Yes - Last used 07/11/2018 Drugs: Cocaine Hx Prescription Drug Abuse: No Family History Family History: End Stage Renal Disease - Brother was on dialysis, Hypertension - Brother Parental Family History Reviewed: Yes Children Family History Reviewed: NA Sibling(s) Family History Reviewed.: Yes Medication/Allergy Home Medications: Abacavir Sulfate [Abacavir 300 mg Tablet] 600 mg PO DAILY 07/15/18 Clonidine [Catapres-Tts 3 (0.3 mg/24 Hr) Transderm Patch] 1 patch TD GUTIÉRREZ@1000 07/15/18 Dolutegravir Sodium [Tivicay] 50 mg PO DAILY 07/15/18 Furosemide [Lasix 80 mg Tablet] 80 mg PO DAILY 07/15/18 Hydralazine HCl 100 mg PO Q8 07/15/18 Isosorbide Mononitrate [Isosorbide Mononitrate ER] 120 mg PO DAILY 07/15/18 Nitroglycerin [Nitrostat 0.4 mg (1/150 Gr) Tabs 25/Bottle] 1 tab SL Q5MP PRN 07/15/18 Warfarin Sodium [Coumadin 5 mg Tablet] 5 mg PO DAILY 07/15/18 Albuterol Sulfate [Proair HFA Inhalation Aerosol 8.5 gm MDI] 2 puff IH Q6HP PRN 07/27/18 Calcium Acetate 667 mg PO TID 07/27/18 Calcium Carbonate [Tums Chewable 500 mg Tab.chew] 1,000 mg PO DAILY 07/27/18 Lamivudine [Epivir] 5 ml PO DAILY 07/27/18 Warfarin Sodium 5 mg PO DAILY #7 tablet 08/16/18 Allergies/Adverse Reactions: calcitriol Allergy (Verified 08/31/18 14:27) itching Review of Systems All systems: reviewed and no additional remarkable complaints except as stated Review of Systems: Constitutional: ABSENT: chills, fatigue, fever(s), headache(s), weight gain, weight loss Eyes: ABSENT: visual disturbances Ears: ABSENT: hearing changes Cardiovascular: ABSENT: chest pain, edema, orthropnea, palpitations; admits shortness of breath Respiratory: ABSENT: Hemoptysis; admits some dry cough Gastrointestinal: ABSENT: abdominal pain, constipation, diarrhea, hematemesis, hematochezia, nausea, vomiting Genitourinary: ABSENT: dysuria, hematuria Musculoskeletal: ABSENT: joint swelling Integumentary: ABSENT: rash, wounds Neurological: ABSENT: abnormal gait, abnormal speech, confusion, dizziness, focal weakness, numbness, syncope Psychiatric: ABSENT: anxiety, depression Endocrine: ABSENT: cold intolerance, heat intolerance, polydipsia, polyuria Hematologic/Lymphatic: ABSENT: easy bleeding, easy bruising, lymphadenopathy Physical Exam Vital Signs: Temp Pulse Resp BP Pulse Ox 98.2 F 93 17 120/69 97 08/31/18 14:34 08/31/18 09:48 08/31/18 18:45 08/31/18 18:45 08/31/18 18:45 Intake & Output 08/30/18 08/31/18 09/01/18 06:59 06:59 06:59 Weight 73.5 kg Vitals during dialysis: Blood pressure 130/71, heart rate of 89, oxygen saturation of 97%, respiration of 20, blood flow rate of 450 mL/min, dialysate flow rate of 800 mL/min. Exam: General appearance: No acute distress, cooperative, well-developed, well- nourished Head exam: PRESENT: atraumatic, normocephalic Eye exam: PRESENT: Conjunctiva [place], EOMI, PERRLA. ABSENT: conjunctival in jection, scleral icterus Mouth exam: PRESENT: moist, neck supple, tongue midline Neck exam: PRESENT: full ROM. Positive lymphadenopathy ABSENT: carotid bruit, JVD, thyromegaly Respiratory exam: PRESENT: Diminished to auscultation bilaterally. ABSENT: rales, rhonchi, stridor, wheezes Cardiovascular exam: PRESENT: RRR, +S1, +S2. ABSENT: systolic murmur Pulses: PRESENT: normal radial pulses, normal dorsalis pedis pulses GI/Abdominal exam: PRESENT: normal bowel sounds, soft. ABSENT: guarding, mass, tenderness Rectal exam: Deferred Extremities exam: PRESENT: Bilateral amputee ABSENT: calf tenderness, pedal edema Musculoskeletal: PRESENT: full ROM. ABSENT: deformity Neurological exam: PRESENT: alert, Awake, Oriented to person, Oriented to place, Oriented to time, reflexes normal, CN II-XII grossly intact. ABSENT: motor sensory deficit Psychiatric exam: PRESENT: appropriate affect, normal mood. ABSENT: homicidal ideation, suicidal ideation Skin exam: PRESENT: intact, dry, warm. ABSENT: rash Results Laboratory Results: 08/31/18 10:27 08/31/18 10:27 08/31/18 08/31/18 08/31/18 10:27 10:27 12:37 WBC 6.2 RBC 3.42 L Hgb 10.9 L Hct 32.2 L MCV 94 MCH 31.7 MCHC 33.6 RDW 14.2 H Plt Count 212 Seg Neutrophils % 74.5 Lymphocytes % 18.3 Monocytes % 6.3 Eosinophils % 0.6 Basophils % 0.3 Absolute Neutrophils 4.6 Absolute Lymphocytes 1.1 Absolute Monocytes 0.4 Absolute Eosinophils 0.0 Absolute Basophils 0.0 Sodium 142.8 Potassium 4.6 Chloride 109 H Carbon Dioxide 19 L Anion Gap 15 BUN 80 H Creatinine 9.08 H Est GFR ( Amer) 7 L Est GFR (Non-Af Amer) 6 L Glucose 116 H Calcium 7.4 L Magnesium 2.2 Total Bilirubin 0.3 AST 187 H ALT 186 H Alkaline Phosphatase 107 Total Protein 6.3 Albumin 3.8 Urine Color YELLOW Urine Appearance CLEAR Urine pH 7.0 Ur Specific [place] 1.013 Urine Protein 100 H Urine Glucose (UA) 50 H Urine Ketones NEGATIVE Urine Blood NEGATIVE Urine Nitrite NEGATIVE Ur Leukocyte Esterase TRACE H Urine WBC (Auto) 1 Urine RBC (Auto) 0 08/31/18 08/31/18 10:27 10:27 Creatine Kinase 118 Troponin I 0.090 Impressions: Chest X-Ray 08/31/18 10:06 IMPRESSION: Increased mild, diffuse bilateral interstitial pulmonary opacity, likely pulmonary edema in the setting of cardiomegaly. No significant change in minimal left basilar heterogeneous opacity and small bilateral pleural effusions and/or pleural thickening. Assessment & Plan - Diagnosis (1) Pulmonary edema Qualifiers: Chronicity: acute Qualified Code(s): J81.0 - Acute pulmonary edema Is this a current diagnosis for this admission?: Yes Plan: Is likely secondary to missing dialysis treatment on Friday. Patient requires hemodialysis with ultrafiltration today urgently in the emergency room. (2) End stage renal disease Is this a current diagnosis for this admission?: Yes Plan: I arrange urgent hemodialysis treatment in the emergency room today. We will do dialysis today for 3 hours, using the patient's left arm AV fistula, with 2 potassium bath, blood flow rate of 450 mL per minute, dialysate flow rate of 800 mL per minute, ultrafiltration 3-4 L as tolerated, no heparin and no Procrit. Patient is closely monitored during dialysis treatment. When I saw the patient he is very comfortable and not requiring any oxygen. From nephrology standpoint if there are no other clinical issues I think he can be discharged home after dialysis treatment today. Once discharged patient to resume his regular dialysis treatment at [facility] on Mondays, Wednesdays and Fridays. (3) Anemia of chronic disease Is this a current diagnosis for this admission?: Yes (4) Hypocalcemia Is this a current diagnosis for this admission?: Yes - Notes Notes: Thank you very much for this consultation. - Time Time Spent: 50 to 70 Minutes
[2018-08-31 19:57] VITALS: BP 149/84
[2018-08-31] MEDS ORDERED: WARFARIN SODIUM 7.5 MG TABLET PO SCH (22:00)
--- NOTE | 2018-08-31 23:20 | EKG REPORT ---
SEVERITY:- ABNORMAL ECG - SINUS RHYTHM PROBABLE LEFT ATRIAL ABNORMALITY LEFT AXIS DEVIATION LEFT VENTRICULAR HYPERTROPHY BORDERLINE PROLONGED QT INTERVAL : Confirmed by: Annita Coker MD 31-Aug-2018 23:20:28
--- NOTE | 2018-09-04 07:51 | ER Document Report ---
Entered by DANIEL HERNANDEZ, JANNIEIBBeatriz 08/31/18 1005 Acting as scribe for:JORGE DAY MD ED Respiratory Problem - General Information source: Patient TRAVEL OUTSIDE OF THE [place] IN LAST 30 DAYS: No <JORGE DAY - Last Filed: 09/04/18 07:51> <BEASLEYSOL - Last Filed: 09/07/18 21:05> - General Chief Complaint: Shortness Of Breath Stated Complaint: CHEST PAIN Time Seen by Provider: 08/31/18 09:52 Primary Care Provider: MATHIEU MACIAS FNP [Primary Care Provider] - Follow up as needed Notes: 63-year-old male with HIV on dialysis who presents to the emergency department today with complaints of shortness of breath which began at 0300 this morning. Patient states he was just discharged from [facility] yesterday for a "touch of pneumonia". Patient was sent home on doxycycline. Patient states that he called EMS at 0300 this morning, they came out and gave him a breathing treatment and he went back to sleep. Patient states this morning when trying to wake up to go to dialysis he developed shortness of breath again. (DANIEL HERNANDEZ) 63-year-old male with HIV on dialysis who presents to the emergency department today with complaints of shortness of breath which began at 0300 this morning. Patient states he was just discharged from [facility] yesterday for a "touch of pneumonia". Patient was sent home on doxycycline. Patient states that he called EMS at 0300 this morning, they came out and gave him a breathing treatment and he went back to sleep. Patient states this morning when trying to wake up to go to dialysis he developed shortness of breath again. The patient is positive for cocaine metabolites in his urine 15 out of the last 16 times he has been tested over the past 3 years. (JORGE DAY) - Related Data Allergies/Adverse Reactions: calcitriol Allergy (Verified 08/31/18 14:27) itching Past Medical History - General Information source: Patient - Social History Smoking Status: Current Every Day Smoker Cigarette use (# per day): Yes Drug Abuse: Cocaine Family History: CAD, CVA, DM, Hyperlipidemia, Hypertension, Malignancy - Past Medical History Cardiac Medical History: Reports: Hx Congestive Heart Failure - EF is 40%, with moderate diastolic dysfunction, Hx DVT, Hx Heart Attack, Hx Hypercho lesterolemia, Hx Hypertension, Hx Peripheral Vascular Disease, Hx Pulmonary Embolism Pulmonary Medical History: Reports: Hx Bronchitis, Hx COPD, Hx Pneumonia, Hx Respiratory Failure Neurological Medical History: Endocrine Medical History: Reports: Hx Diabetes Mellitus Type 2 - insulin dependentComment Only: Hx Diabetes Mellitus Type 1 - 1.5 Renal/ Medical History: Reports: Hx End Stage Renal Disease, Hx Hemodialysis, Hx Renal Insufficiency GI Medical History: Reports: Hx Gastroesophageal Reflux Disease Musculoskeletal Medical History: Reports Hx Arthritis, 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, Reports Hx Musculoskeletal Trauma Infectious Medical History: Reports: Hx HIV Past Surgical History: Reports: Hx Orthopedic Surgery - bilateral amputation, R BKA, L AKA, Hx Vascular Surgery - left arm clot removed, IVC filter, thrombectomy 05/18/2018 left arm, Other - Endoscopy; Vascular surgery. - Immunizations Immunizations up to date: Yes Hx Diphtheria, Pertussis, Tetanus Vaccination: Yes Hx Pneumococcal Vaccination: 07/21/10 <JORGE DAY - Last Filed: 09/04/18 07:51> Review of Systems - Review of Systems Constitutional: No symptoms reported EENT: No symptoms reported Cardiovascular: No symptoms reported Respiratory: See HPI, Short of breath, Wheezing Gastrointestinal: No symptoms reported Genitourinary: No symptoms reported Male Genitourinary: No symptoms reported Musculoskeletal: No symptoms reported Skin: No symptoms reported Hematologic/Lymphatic: No symptoms reported Neurological/Psychological: No symptoms reported -: Yes All other systems reviewed and negative <JORGE DAY - Last Filed: 09/04/18 07:51> Physical Exam <JORGE DAY - Last Filed: 09/04/18 07:51> - Vital signs Vitals: Temp Pulse Resp BP Pulse Ox 97.8 F 93 20 162/91 H 98 08/31/18 09:48 08/31/18 09:48 08/31/18 09:48 08/31/18 09:48 08/31/18 09:48 - Notes Notes: Physical Exam: General: Alert, appears at baseline. HEENT: Normocephalic. Atraumatic. PERRL. Extraocular movements intact. Oropharynx clear. Neck: Supple. Non-tender. Respiratory: No respiratory distress. Left-sided wheezing, tachypneic with a 98% oxygen saturation. Rhonchi with forced cough. Cardiovascular: Tachycardic, regular rhythm. Abdominal: Normal Inspection. Non-tender. No distension. Normal Bowel Sounds. Back: Non-tender. No deformity or step off. Extremities: Moves all four extremities. Upper extremities: Normal inspection. Normal ROM. Lower extremities: Bilateral lower extremity amputee. Neurological: Normal cognition. AAOx4. Normal speech. Psychological: Normal affect. Normal Mood. Skin: Warm. Dry. Normal color. (DANIEL HERNANDEZ) Physical Exam: General: Alert, appears at baseline. HEENT: Normocephalic. Atraumatic. PERRL. Extraocular movements intact. Oropharynx clear. Neck: Supple. Non-tender. Respiratory: No respiratory distress. Left-sided wheezing, tachypneic with a 98% oxygen saturation. Rhonchi with forced cough. Cardiovascular: Tachycardic, regular rhythm. Abdominal: Normal Inspection. Non-tender. No distension. Normal Bowel Sounds. Back: Non-tender. No deformity or step off. Extremities: Moves all four extremities. Upper extremities: Normal inspection. Normal ROM. Lower extremities: Bilateral lower extremity amputee. Neurological: Normal cognition. AAOx4. Normal speech. Psychological: Normal affect. Normal Mood. Skin: Warm. Dry. Normal color. (JORGE DAY) Course - Laboratory Result Diagrams: 08/31/18 10:27 08/31/18 10:27 - Diagnostic Test Radiology reviewed: Image reviewed, Reports reviewed - Chest x-ray shows increased mild diffuse interstitial pulmonary opacity most likely due to pulmonary edema. - EKG Interpretation by Pr EKG shows normal: Sinus rhythm, [place], QRS Complexes, ST-T Waves. abnormal: Intervals Rate: Normal - 82 Rhythm: NSR [place]/QRS: Left axis deviation Voltage: Consistant with LVH P Waves: LAE When compared to previous EKG there are: No significant change - Consults Dr. Renteria Time consulted: 12:28 Consulted provider: other - Will dialyze in the ER, then we can see if he needs to stay or can be discharged home. - Transfer of Care Care transferred to following provider: Dr. Vincent Beasley <JOREG DAY - Last Filed: 09/04/18 07:51> - Laboratory Result Diagrams: 08/31/18 10:27 08/31/18 10:27 <SOL BEASLEY - Last Filed: 09/07/18 21:05> - Re-evaluation Re-evalutation: 08/31/18 12:30 Patient states his breathing might be a little bit better after the breathing treatment but if he tries to move around he gets short of breath. (DANIEL HERNANDEZ) 08/31/18 12:30 Patient states his breathing might be a little bit better after the breathing treatment but if he tries to move around he gets short of breath. (JORGE DAY) Was much improved after dialysis, and tolerated well, was up eating a meal, and was ready to be discharge, patient was discharged with follow-up instructions as provided by Dr. Day. (SOL BEASLEY) - Vital Signs Vital signs: Temp Pulse Resp BP Pulse Ox 98.3 F 93 22 H 149/84 H 98 08/31/18 20:01 08/31/18 09:48 08/31/18 19:45 08/31/18 19:45 08/31/18 19:45 - Laboratory Laboratory results interpreted by me: 08/31/18 08/31/18 08/31/18 10:27 10:27 12:37 RBC 3.42 L Hgb 10.9 L Hct 32.2 L RDW 14.2 H Chloride 109 H Carbon Dioxide 19 L BUN 80 H Creatinine 9.08 H Est GFR ( Amer) 7 L Est GFR (Non-Af Amer) 6 L Glucose 116 H Calcium 7.4 L AST 187 H ALT 186 H Urine Protein 100 H Urine Glucose (UA) 50 H Ur Leukocyte Esterase TRACE H - Transfer of Care Notes: 08/31/18 16:22 Patient is pending dialysis. After he has dialyzed, a repeat physical exam to check his respiratory rate and oxygenation to determine if fluid removal has improved his respiratory difficulty. The patient's discharge instructions are written up to print out if his physical exam is back to baseline. (JORGE DAY) Critical Care Note - Critical Care Note Total time excluding time spent on procedures (mins): 60 <JORGE DAY - Last Filed: 09/04/18 07:51> Discharge <JORGE DAY - Last Filed: 09/04/18 07:51> <SOL BEASLEY - Last Filed: 09/07/18 21:05> - Discharge Clinical Impression: Pulmonary edema, Dyspnea on exertion, Noncompliance, Hypertension, ESRD needing dialysis, Inadequate anticoagulation, Cocaine abuse Condition: Stable Disposition: HOME, SELF-CARE Additional Instructions: Your exam today suggests that your shortness of breath was due to fluid accumulating in your lungs. This may be due to your renal failure, and your cocaine abuse. Your bleeding time was quite low today. You should not skip your doses of Coumadin. Be sure to take all of your regular medications the way they are prescribed. Stop using cocaine. Be sure not to miss dialysis on Friday. 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 Referrals: MATHIEU MACIAS FNP [Primary Care Provider] - Follow up as needed I personally performed the services described in the documentation, reviewed and edited the documentation which was dictated to the scribe in my presence, and it accurately records my words and actions.
== END 2018-08-31 20:01 | disposition home or self-care (01) ==
LOC: ER 09:40
DX: I13.2 Hypertensive heart and chronic kidney disease with heart failure and with stage 5 chronic kidney disease, or end stage renal disease (principal); E11.22 Type 2 diabetes mellitus with diabetic chronic kidney disease; N18.6 End stage renal disease; I50.30 Unspecified diastolic (congestive) heart failure; J81.1 Chronic pulmonary edema; R06.00 Dyspnea, unspecified; Z91.19 Patient's noncompliance with other medical treatment and regimen; R06.02 Shortness of breath; R07.9 Chest pain, unspecified; B20 Human immunodeficiency virus [HIV] disease; Z99.2 Dependence on renal dialysis; F17.210 Nicotine dependence, cigarettes, uncomplicated; J44.9 Chronic obstructive pulmonary disease, unspecified; F14.10 Cocaine abuse, uncomplicated; R79.1 Abnormal coagulation profile; Z79.01 Long term (current) use of anticoagulants; Z79.899 Other long term (current) drug therapy
CPT/HCPCS: 93005; 94640; 99285; 96374; 36415; 82550; 83735; 85025; 85610; 80053; 81001; 84484; 80307; 71045; 93010; G0257; A9270 ×2; J1940; J7620

== ENCOUNTER 2018-09-28 09:49 | Observation (INO) | payer MEDICAID, MEDICARE ==
[2018-09-28 10:24] LABS: ABSOLUTE EOSINOPHILS # (AUTO) 0.3 10^3/uL (0.0-0.6); ABSOLUTE LYMPHOCYTES (AUTO) 2.6 10^3/uL (0.5-4.7); ABSOLUTE MONOCYTES (AUTO) 0.5 10^3/uL (0.1-1.4); ABSOLUTE NEUT (AUTO) 6.5 10^3/uL (1.7-8.2); BASOPHILS % (AUTO) 0.4 % (0-2); EOSINOPHILS % (AUTO) 3.3 % (0-6); HEMATOCRIT 35.7 % (37.9-51.0); HEMOGLOBIN 12.3 g/dL (13.5-17.0); LYMPHOCYTES % (AUTO) 26.2 % (13-45); MEAN CORPUSCULAR HEMOGLOBIN 31.8 pg (27.0-33.4); MEAN CORPUSCULAR HGB CONC 34.3 g/dL (32.0-36.0); MEAN CORPUSCULAR VOLUME 93 fl (80-97); MONOCYTES % (AUTO) 5.4 % (3-13); PLATELET COUNT 219 10^3/uL (150-450); RED BLOOD COUNT 3.85 10^6/uL (4.35-5.55); RED CELL DISTRIBUTION WIDTH 13.9 % (11.5-14.0); SEGMENTED NEUTROPHILS % (AUTO) 64.7 % (42-78); TOTAL CELLS COUNTED % (AUTO) 100 %
[2018-09-28 10:43] LABS: ALANINE AMINOTRANSFERASE 69 U/L (21-72); ALBUMIN 4.3 g/dL (3.5-5.0); ALKALINE PHOSPHATASE 96 U/L (38-126); ANION GAP 17 (5-19); ASPARTATE AMINO TRANSFERASE 119 U/L (17-59); BILIRUBIN,DIRECT 0.4 mg/dL (0.0-0.4); BILIRUBIN,TOTAL 0.4 mg/dL (0.2-1.3); BLOOD UREA NITROGEN 76 mg/dL (7-20); CALCIUM 7.2 mg/dL (8.4-10.2); CARBON DIOXIDE 16 mmol/L (22-30); CHLORIDE 106 mmol/L (98-107); CREATINE KINASE 281 U/L (55-170); GLUCOSE 108 mg/dL (75-110); TOTAL PROTEIN 7.3 g/dL (6.3-8.2)
[2018-09-28 10:54] LABS: CREATINE KINASE MB 3.16 ng/mL (<4.55)
[2018-09-28 10:57] LABS: TROPONIN I 0.151 ng/mL
--- NOTE | 2018-09-28 11:10 | RADIOLOGY REPORT (SQ) ---
EXAM DESCRIPTION: CHEST SINGLE VIEW COMPLETED DATE/TIME: 09/28/2018 10:53 am REASON FOR STUDY: Dyspnea COMPARISON: 08/31/2018 EXAM PARAMETERS: NUMBER OF VIEWS: One view. TECHNIQUE: Single frontal radiographic view of the chest acquired. RADIATION DOSE: NA LIMITATIONS: None. FINDINGS: LUNGS AND PLEURA: Mild prominence of the interstitial markings bilaterally with increasin g acute superimposed mixed airspace -interstitial disease suggested in the right lower lung. Slight to very mild changes also suggested in the left mid-lower lung zones. No evidence of pneumothorax or pleural effusion. MEDIASTINUM AND HILAR STRUCTURES: No masses. Contour normal. HEART AND VASCULAR STRUCTURES: Stable appearance. BONES: No acute findings. HARDWARE: Multiple stable surgical clips overlying the periphery of the right apex - upper lobe. OTHER: No other significant finding. IMPRESSION: 1. Since the previous examination dated 08/31/2018, increasing acute superimposed mixed interstitial and airspace disease in the right lower lung. Slight to very mild changes are also sugg ested in the left mid-lower lung zones. Correlation suggested. TECHNICAL DOCUMENTATION: JOB ID: [id number] [employer]- All Rights Reserved Reading location - IP/workstation name: [email or web address]
[2018-09-28 11:25] LABS: INTERNATIONAL RATION (INR) 1.32
[2018-09-28] MEDS ORDERED: ACETAMINOPHEN 325 MG TABLET PO ONE (11:42)
[2018-09-28] MEDS ORDERED: IPRATROPIUM/ALBUTEROL 0.5-2.5 MG/3 ML AMPUL NEB ONE (11:42)
[2018-09-28] MEDS ORDERED: FUROSEMIDE INJ/PF 100 MG/10 ML SDV IV ONE (12:15)
[2018-09-28] MEDS ORDERED: WARFARIN SODIUM 5 MG TABLET PO ONE (12:17)
[2018-09-28 13:02] LABS: VENOUS BLOOD BASE EXCESS -8.6 mmol/L; VENOUS BLOOD HCO3 17.1 mmol/L (20-32); VENOUS BLOOD PCO2 36.2 mmHg (35-63); VENOUS BLOOD PH 7.29 (7.30-7.42)
--- NOTE | 2018-09-28 13:34 | EKG REPORT ---
SEVERITY:- ABNORMAL ECG - SINUS TACHYCARDIA LEFT ANTERIOR FASCICULAR BLOCK LVH WITH SECONDARY REPOLARIZATION ABNORMALITY CONSIDER ANTERIOR INFARCT PROLONGED QT INTERVAL : Confirmed by: Marco Young MD 28-Sep-2018 13:33:55
[2018-09-28 14:00] LABS: APPEARANCE,URINE CLEAR; BILIRUBIN,URINE NEGATIVE (NEGATIVE); COLOR,URINE STRAW; GLUCOSE, URINE 50 mg/dL (NEGATIVE); KETONES,URINE NEGATIVE (NEGATIVE); LEUKOCYTE ESTERASE,URINE SMALL (NEGATIVE); NITRITE,URINE NEGATIVE (NEGATIVE); PROTEIN,URINE 100 mg/dL (NEGATIVE); UROBILINOGEN,URINE NEGATIVE mg/dL (<2.0)
--- NOTE | 2018-09-28 14:49 | ER Document Report ---
Entered by ARUN PAULA SCRIBE 09/28/18 1005 Acting as scribe for:JORGE DAY MD ED Respiratory Problem - General Stated Complaint: SHORTNESS OF BREATH Time Seen by Provider: 09/28/18 09:53 Primary Care Provider: MATHIEU MACIAS FNP [Primary Care Provider] - Follow up as needed Mode of Arrival: Medic Information source: Patient Notes: Patient is a 63 year old male with ESRD (MWF dialysis) HIV, HTN, CHF, and a history of cocaine abuse, DVTs and PE presents to the emergency department via EMS complaining of shortness of breath onset this morning. Patient states he was recently prescribed a Zpak although he feels this did not help his symptoms. Upon EMS arrival to the scene, EMS reports an oxygen saturation of 81% on room air. They proceeded to administer breathing treatments and 2g of mag sulfate IV and placed the patient on CPAP. Upon arrival to the ED patient was switched over to BiPAP and his pulse ox read 100%. This 63-year-old male dialysis patient who is chronically noncompliant with his medication regimen and dialysis treatment regimen. He comes emergency room for short of breath this morning. He was seen here 4 weeks ago for the same problem and ultimately dialyzed in the emergency room. Reviewing records shows that he has not taken Lasix or refill the prescription and at least a week or more. His INR remains quite subtherapeutic as it usually is. He did not bother to go to his dialysis treatment on Friday, so his last dialysis was on 09/23/2018. He chronically tests positive for cocaine on urine drug screening. TRAVEL OUTSIDE OF THE [place] IN LAST 30 DAYS: No - Related Data Allergies/Adverse Reactions: calcitriol Allergy (Verified 08/31/18 14:27) itching Past Medical History - General Information source: Patient - Social History Smoking Status: Current Every Day Smoker Cigarette use (# per day): Yes Chew tobacco use (# tins/day): No Drug Abuse: Cocaine Family History: CAD, CVA, DM, Hyperlipidemia, Hypertension, Malignancy - Past Medical History Cardiac Medical History: Reports: Hx Congestive Heart Failure - EF is 40%, with moderate diastolic dysfunction, Hx DVT, Hx Heart Attack, Hx Hypercholest erolemia, Hx Hypertension, Hx Peripheral Vascular Disease, Hx Pulmonary Embolism Pulmonary Medical History: Reports: Hx Bronchitis, Hx COPD, Hx Pneumonia, Hx Respiratory Failure Neurological Medical History: Endocrine Medical History: Reports: Hx Diabetes Mellitus Type 2 - insulin dependentComment Only: Hx Diabetes Mellitus Type 1 - 1.5 Renal/ Medical History: Reports: Hx End Stage Renal Disease, Hx Hemodialysis, Hx Renal Insufficiency GI Medical History: Reports: Hx Gastroesophageal Reflux Disease Musculoskeletal Medical History: Reports Hx Arthritis, Reports Hx Mu sculoskeletal Deformity - double amputee, Reports Hx Musculoskeletal Trauma Infectious Medical History: Reports: Hx HIV Past Surgical History: Reports: Hx Orthopedic Surgery - bilateral amputation, R BKA, L AKA, Hx Vascular Surgery - left arm clot removed, IVC filter, thrombectomy 05/18/2018 left arm, Other - Endoscopy; Vascular surgery. - Immunizations Immunizations up to date: Yes Hx Diphtheria, Pertussis, Tetanus Vaccination: Yes Hx Pneumococcal Vaccination: 07/21/10 Review of Systems - Review of Systems Constitutional: No symptoms reported EENT: No symptoms reported Cardiovascular: No symptoms reported Respiratory: See HPI, Short of breath Gastrointestinal: No symptoms reported Genitourinary: No symptoms reported Male Genitourinary: No symptoms reported Musculoskeletal: No symptoms reported Skin: No symptoms reported Hematologic/Lymphatic: No symptoms reported Neurological/Psychological: No symptoms reported -: Yes All other systems reviewed and negative Physical Exam - Vital signs Vitals: Resp Pulse Ox 21 H 100 09/28/18 09:52 09/28/18 09:52 - Notes Notes: GENERAL: Alert, interacts well. Respiratory distress. HEAD: Normocephalic, atraumatic. EYES: Pupils equal, round, and reactive to light. Extraocular movements intact. ENT: Oral mucosa moist, tongue midline. NECK: Full range of motion. Supple. Trachea midline. LUNGS: On BiPAP, 100% oxygen saturation. Tachypneic. Rales and rhonchi. Respiratory distress. HEART: Tachycardic. No murmurs, gallops, or rubs. ABDOMEN: Soft, non-tender. Non-distended. Bowel sounds present in all 4 quadrants. No guarding, rigidity, or rebound. EXTREMITIES: Moves all 4 extremities spontaneously. Right BKA, left AKA. NEUROLOGICAL: Alert and oriented x3. Normal speech. PSYCH: Normal affect, normal mood. SKIN: Warm, dry, normal turgor. No rashes or lesions noted. Course - Re-evaluation Re-evalutation: 09/28/18 13:32 I discussed the case with Dr. Renteria from nephrology service. She reports we do not have capability to do additional dialysis patients and that he would need to be transferred. I called [facility], and they are on diversion for everything except strokes, STEMI's, and major trauma. 09/28/18 13:49 I called [facility] and learned that the are not able to take any more dialysis patient today and recommended I try another facility. 09/28/18 14:55 The elementary secretary called me about 40 minutes ago to tell me she has been asked to call around to [facility] to see about dialysis capability, and found none that would be able to take this patient today. 09/28/18 15:36 The patient has remained stable on BiPAP. His potassium is 4.0, so he is not an urgent need of dialysis for any reason other than his fluid overload. Given the limited options at this point to get this patient treated, the forms examiner and hospitalist are agreeable to admitting the patient, leaving him on on BiPAP, and getting him dialyzed tomorrow. - Vital Signs Vital signs: Temp Pulse Resp BP Pulse Ox 97.4 F 21 H 191/103 H 99 09/28/18 09:56 09/28/18 13:01 09/28/18 13:01 09/28/18 13:00 - Laboratory Result Diagrams: 09/28/18 10:00 09/28/18 10:00 Laboratory results interpreted by me: 09/28/18 09/28/18 09/28/18 10:00 10:00 10:00 RBC 3.85 L Hgb 12.3 L Hct 35.7 L PT VBG pH VBG HCO3 Carbon Dioxide 16 L BUN 76 H Creatinine 10.36 H Est GFR ( Amer) 6 L Est GFR (Non-Af Amer) 5 L Lactic Acid < 0.5 L Calcium 7.2 L AST 119 H Creatine Kinase 281 H Urine Protein Urine Glucose (UA) Urine Blood Ur Leukocyte Esterase 09/28/18 09/28/18 09/28/18 10:00 12:50 13:45 RBC Hgb Hct PT 17.0 H VBG pH 7.29 L VBG HCO3 17.1 L Carbon Dioxide BUN Creatinine Est GFR ( Amer) Est GFR (Non-Af Amer) Lactic Acid Calcium AST Creatine Kinase Urine Protein 100 H Urine Glucose (UA) 50 H Urine Blood SMALL H Ur Leukocyte Esterase SMALL H - Diagnostic Test Radiology reviewed: Image reviewed, Reports reviewed - Chest x-ray shows an increase in the acute superimposed mixed interstitial and airspace disease in the right lower lung with very mild changes in the left mid lower lung zones. This is all new since the previous exam of 08/31/2018. - EKG Interpretation by Me EKG shows normal: Sinus rhythm, [place], QRS Complexes, ST-T Waves. abnormal: Intervals - Prolonged QT interval Rate: Tachycardia - 100 [place]/QRS: LAHB/LAFB Voltage: Consistant with LVH When compared to previous EKG there are: No significant change - Consults Dr. Schreiber Time consulted: 15:25 Consulted provider: will come to ER - telemetry admit. Dr. Renteria will consult. Critical Care Note - Critical Care Note Total time excluding time spent on procedures (mins): 40 Discharge - Discharge Clinical Impression: Hypoxemia, Viral upper respiratory tract infection with cough, Pulmonary vascular congestion, Non-compliant patient, Chronic kidney disease requiring chronic dialysis Dyspnea Qualifiers: Dyspnea type: shortness of breath Qualified Code(s): R06.02 - Shortness of breath; R06.00 - Dyspnea, unspecified; R06.01 - Orthopnea Chronic renal failure Qualifiers: Chronic kidney disease stage: stage 5 Qualified Code(s): N18.5 - Chronic kidney disease, stage 5 Hypertension Qualifiers: Hypertension type: essential hypertension Qualified Code(s): I10 - Essential (primary) hypertension Condition: Stable Disposition: ADMITTED OBSERVATION Admitting Provider: Hospitalist Unit Admitted: Telemetry Referrals: MATHIEU MACIAS FNP [Primary Care Provider] - Follow up as needed Scribe Attestation: 09/28/18 10:52 I personally performed the services described in the documentation, reviewed and edited the documentation which was dictated to the scribe in my presence, and it accurately records my words and actions. I personally performed the services described in the documentation, reviewed and edited the documentation which was dictated to the scribe in my presence, and it accurately records my words and actions.
[2018-09-28] MEDS ORDERED: HYDRALAZINE HCL INJ/PF 20 MG/1 ML SDV IV ONE (16:10)
[2018-09-28 16:35] LABS: URINE AMPHETAMINES SCREEN NEGATIVE; URINE BARBITURATES SCREEN NEGATIVE; URINE BENZODIAZEPINES SCREEN NEGATIVE; URINE COCAINE SCREEN UNCONFIRMED POSITIVE; URINE MARIJUANA (THC) SCREEN NEGATIVE; URINE METHADONE SCREEN NEGATIVE; URINE PHENCYCLIDINE SCREEN NEGATIVE
[2018-09-28] MEDS ORDERED: ACETAMINOPHEN 325 MG TABLET PO PRN (16:44)
[2018-09-28] MEDS ORDERED: LEVALBUTEROL HCL NEB 1.25 MG/3 ML AMPUL NEB PRN (16:44)
[2018-09-28] MEDS ORDERED: MAG HYDROX/AL HYDROX/SIMETH SUSP 30 ML UDCUP PO PRN (16:44)
[2018-09-28] MEDS ORDERED: MAGNESIUM HYDROXIDE SUSP 30 ML UDCUP PO PRN (16:44)
[2018-09-28] MEDS ORDERED: ZOLPIDEM TARTRATE 5 MG TABLET PO PRN (16:44)
[2018-09-28] MEDS ORDERED: PROMETHAZINE HCL INJ 25 MG/1 ML VIAL IV PRN (16:44)
[2018-09-28 16:57] LABS: HEMOGLOBIN 11.9 g/dL (13.5-17.0); MEAN CORPUSCULAR HEMOGLOBIN 31.4 pg (27.0-33.4); MEAN CORPUSCULAR VOLUME 93 fl (80-97); PLATELET COUNT 213 10^3/uL (150-450); RED BLOOD COUNT 3.78 10^6/uL (4.35-5.55); RED CELL DISTRIBUTION WIDTH 13.8 % (11.5-14.0); WHITE BLOOD COUNT 7.3 10^3/uL (4.0-10.5)
--- NOTE | 2018-09-28 17:20 | PDOC H&P ---
History of Present Illness Admission Date/PCP: 09/28/18 15:35 ARUN MORA Patient complains of: shortness of breath History of Present Illness: KRISTY CANTU is a 63 year old male with a past medical history significant for COPD, systolic CHF, ESRD on dialysis, noncompliance with dialysis schedule, HIV, substance abuse with continuous use, anemia of chronic disease, hypertension, hyperlipidemia, and multiple PEs/DVTs on chronic warfarin who presents to the emergency department today with a complaint of sudden onset shortness of breath upon waking this morning with intermittent productive cough over the last several days. Patient denies fever, chills, body aches, rhinorrhea, sore throat or other upper respiratory symptoms. He does report having missed his dialysis on Friday and Friday as well as having missed multiple doses of his antihyper tensive medications. He also endorses recent cocaine use. He further denies chest pain, palpitations, strokelike symptoms. On EMSs arrival, patient was found to be hypoxic to 81% on room air. He was administered breathing treatments, magnesium, and placed on CPAP. Evaluation in the emergency department is unremarkable other than his chronic anemia (hemoglobin 12.3), subtherapeutic INR (usual for patient who is persistently noncompliant with medications), known CKD but normal potassium (K4.0), troponin elevated to 0.151 (likely incidental finding as the patient has chronically elevated troponins in the setting of CHF and CKD with noncompliance; patient denies active chest pain, did recently use cocaine), unremarkable urinalysis, and UDS positive for cocaine. The patient is referred to the hospitalist service for admission and management of the above stated complaints and findings. Past Medical History Cardiac Medical History: Reports: Congestive Heart Failure - EF is 40%, with moderate diastolic dysfunction, DVT, Myocardial Infarction, Hyperlipidema, Hypertension, Peripheral Vascular Disease, Pulmonary Embolism Pulmonary Medical History: Reports: Bronchitis, Chronic Obstructive Pulmonary Disease (COPD), Pneumonia, Respiratory Failure Denies: Asthma Neurological Medical History: Denies: Migraine, Seizures Endocrine Medical History: Denies: Hyperthyroidism, Hypothyroidism Renal/ Medical History: Reports: End Stage Renal Disease - Dialysis MWF Malignancy Medical History: Reports: None GI Medical History: Reports: Gastroesophageal Reflux Disease Denies: Crohn's Disease, Ulcerative Colitis Musculoskeltal Medical History: Reports: Arthritis Denies: Fibromyalgia Skin Medical History: Denies: Eczema, Psoriasis Psychiatric Medical History: Reports: Depression, Substance Abuse, Tobacco Dependency Traumatic Medical History: Denies: Traumatic Brain Injury Hematology: Reports: Anemia Infectious Medical History: Reports: HIV Past Surgical History Past Surgical History: Reports: Orthopedic Surgery - bilateral amputation, R BKA, L AKA, Vascular Surgery - left arm clot removed, IVC filter, thrombectomy 05/18/2018 left arm, Other - Endoscopy; Vascular surgery. Social History Information Source: Patient Lives with: Alone Smoking Status: Current Every Day Smoker Frequency of Alcohol Use: None Hx Recreational Drug Use: Yes - Last used 09/26/18 Drugs: Cocaine Hx Prescription Drug Abuse: No - Advance Directive Resuscitation Status: Full Code Surrogate healthcare decision maker:: The patient's brother, Deon Cantu, Family History Family History: CAD, CVA, DM, Hyperlipidemia, Hypertension, Malignancy Parental Family History Reviewed: Yes Children Family History Reviewed: Yes Sibling(s) Family History Reviewed.: Yes Medication/Allergy Home Medications: Abacavir Sulfate [Abacavir 300 mg Tablet] 600 mg PO DAILY 07/15/18 Clonidine [Catapres-Tts 3 (0.3 mg/24 Hr) Transderm Patch] 1 patch TD GUTIÉRREZ@1000 07/15/18 Dolutegravir Sodium [Tivicay] 50 mg PO DAILY 07/15/18 Furosemide [Lasix 80 mg Tablet] 80 mg PO DAILY 07/15/18 Hydralazine HCl 100 mg PO Q8 07/15/18 Isosorbide Mononitrate [Isosorbide Mononitrate ER] 120 mg PO DAILY 07/15/18 Nitroglycerin [Nitrostat 0.4 mg (1/150 Gr) Tabs 25/Bottle] 1 tab SL Q5MP PRN 07/15/18 Warfarin Sodium [Coumadin 5 mg Tablet] 5 mg PO DAILY 07/15/18 Albuterol Sulfate [Proair HFA Inhalation Aerosol 8.5 gm MDI] 2 puff IH Q6HP PRN 07/27/18 Calcium Acetate 667 mg PO TID 07/27/18 Calcium Carbonate [Tums Chewable 500 mg Tab.chew] 1,000 mg PO DAILY 07/27/18 Lamivudine [Epivir] 5 ml PO DAILY 07/27/18 Warfarin Sodium 5 mg PO DAILY #7 tablet 08/16/18 Allergies/Adverse Reactions: calcitriol Allergy (Verified 08/31/18 14:27) itching Review of Systems Constitutional: ABSENT: chills, fever(s), headache(s), weight gain, weight loss Eyes: ABSENT: visual disturbances Ears: ABSENT: hearing changes Cardiovascular: ABSENT: chest pain, dyspnea on exertion, edema, orthropnea, palpitations Respiratory: PRESENT: cough, dyspnea, sputum. ABSENT: hemoptysis Gastrointestinal: ABSENT: abdominal pain, constipation, diarrhea, hematemesis, hematochezia, nausea, vomiting Genitourinary: ABSENT: dysuria, hematuria Musculoskeletal: ABSENT: joint swelling Integumentary: ABSENT: rash, wounds Neurological: ABSENT: abnormal gait, abnormal speech, confusion, dizziness, focal weakness, syncope Psychiatric: ABSENT: anxiety, depression, homidical ideation, suicidal ideation Endocrine: ABSENT: cold intolerance, heat intolerance, polydipsia, polyuria Hematologic/Lymphatic: ABSENT: easy bleeding, easy bruising Physical Exam Vital Signs: Temp Pulse Resp BP Pulse Ox 97.4 F 19 169/89 H 100 09/28/18 09:56 09/28/18 16:01 09/28/18 16:01 09/28/18 16:01 Intake & Output 09/27/18 09/28/18 09/29/18 06:59 06:59 06:59 Weight 75 kg General appearance: PRESENT: no acute distress, well-developed, well-nourished Head exam: PRESENT: atraumatic, normocephalic Eye exam: PRESENT: conjunctiva pink, EOMI, PERRLA. ABSENT: scleral icterus Ear exam: PRESENT: normal external ear exam Mouth exam: PRESENT: moist, tongue midline Teeth exam: PRESENT: poor dentation Neck exam: ABSENT: carotid bruit, JVD, lymphadenopathy, thyromegaly Respiratory exam: PRESENT: crackles, prolonged expiratory phas, rhonchi, symmetrical, unlabored. ABSENT: rales, wheezes Cardiovascular exam: PRESENT: RRR. ABSENT: diastolic murmur, rubs, systolic murmur Vascular exam: PRESENT: normal capillary refill GI/Abdominal exam: PRESENT: normal bowel sounds, soft. ABSENT: distended, guarding, mass, organolmegaly, rebound, tenderness Rectal exam: PRESENT: deferred Extremities exam: PRESENT: full ROM, other - Right BKA, left AKA. ABSENT: calf tenderness, clubbing, pedal edema Neurological exam: PRESENT: alert, awake, oriented to person, oriented to place, oriented to time, oriented to situation, CN II-XII grossly intact. ABSENT: motor sensory deficit Psychiatric exam: PRESENT: appropriate affect, normal mood. ABSENT: homicidal ideation, suicidal ideation Skin exam: PRESENT: dry, intact, warm. ABSENT: cyanosis, rash Results Laboratory Results: 09/28/18 10:00 09/28/18 09/28/18 09/28/18 10:00 10:00 10:00 WBC 10.0 RBC 3.85 L Hgb 12.3 L Hct 35.7 L MCV 93 MCH 31.8 MCHC 34.3 RDW 13.9 Plt Count 219 Seg Neutrophils % 64.7 Lymphocytes % 26.2 Monocytes % 5.4 Eosinophils % 3.3 Basophils % 0.4 Absolute Neutrophils 6.5 Absolute Lymphocytes 2.6 Absolute Monocytes 0.5 Absolute Eosinophils 0.3 Absolute Basophils 0.0 VBG pH VBG pCO2 VBG HCO3 VBG Base Excess Sodium 139.0 Potassium 4.0 Chloride 106 Carbon Dioxide 16 L Anion Gap 17 BUN 76 H Creatinine 10.36 H Est GFR ( Amer) 6 L Est GFR (Non-Af Amer) 5 L Glucose 108 Lactic Acid < 0.5 L Calcium 7.2 L Total Bilirubin 0.4 AST 119 H ALT 69 Alkaline Phosphatase 96 Total Protein 7.3 Albumin 4.3 Urine Color Urine Appearance Urine pH Ur Specific [place] Urine Protein Urine Glucose (UA) Urine Ketones Urine Blood Urine Nitrite Ur Leukocyte Esterase Urine WBC (Auto) Urine RBC (Auto) 09/28/18 09/28/18 12:50 13:45 WBC RBC Hgb Hct MCV MCH MCHC RDW Plt Count Seg Neutrophils % Lymphocytes % Monocytes % Eosinophils % Basophils % Absolute Neutrophils Absolute Lymphocytes Absolute Monocytes Absolute Eosinophils Absolute Basophils VBG pH 7.29 L VBG pCO2 36.2 VBG HCO3 17.1 L VBG Base Excess -8.6 Sodium Potassium Chloride Carbon Dioxide Anion Gap BUN Creatinine Est GFR ( Amer) Est GFR (Non-Af Amer) Glucose Lactic Acid Calcium Total Bilirubin AST ALT Alkaline Phosphatase Total Protein Albumin Urine Color STRAW Urine Appearance CLEAR Urine pH 6.0 Ur Specific [place] 1.010 Urine Protein 100 H Urine Glucose (UA) 50 H Urine Ketones NEGATIVE Urine Blood SMALL H Urine Nitrite NEGATIVE Ur Leukocyte Esterase SMALL H Urine WBC (Auto) 9 Urine RBC (Auto) 1 09/28/18 09/28/18 10:00 10:00 Creatine Kinase 281 H CK-MB (CK-2) 3.16 Troponin I 0.151 Impressions: Chest X-Ray 09/28/18 09:59 IMPRESSION: 1. Since the previous examination dated 08/31/2018, increasing a cute superimposed mixed interstitial and airspace disease in the right lower lung. Slight to very mild changes are also suggested in the left mid-lower lung zones. Correlation suggested. Assessment & Plan - Diagnosis (1) Acute on chronic respiratory failure with hypoxemia Is this a current diagnosis for this admission?: Yes Plan: Improved following initial treatment. Upon EMS arrival, patient was found to be hypoxic with saturation of 81% on room air, accessory muscle use, tripoding. He was provided nebulizer treatments IV magnesium, placed on BiPAP with subsequent improvement in his breathing. Emergency department provider has provided IV furosemide with additional improvement in the patient's respiratory status. He was recently treated with a Z-Moreno for upper respiratory symptoms; patient confirms continued intermittent productive cough although denies fever, chills, rhinorrhea, sore throat, body aches. WBCs are normal and patient is afebrile; unlikely to be a pneumonia. Chest x-ray does reveal interval worsening of mixed interstitial and airspace disease bibasilarly. Sputum cultures ordered. Blood cultures pending. Acute exacerbation is likely secondary to multiple missed dialysis sessions resulting in pulmonary vascular congestion. Patient is admitted to the medical floor on continuous cardiac telemetry. He is provided supplemental oxygen and BiPAP as needed to maintain oxygen saturations greater than 89%. He is placed on scheduled and as needed nebulizer treatments. We will continue to diurese with his home dose of furosemide. Nephrology has been consulted; plans for dialysis tomorrow. No indications for steroid or antibiotic therapy at this time. (2) ESRD needing dialysis Is this a current diagnosis for this admission?: Yes Plan: The patient is on a Friday, Friday, Friday schedule. He reports that he did not go to dialysis on Friday because it was raining and missed dialysis this morning due to not feeling well. Dr. Renteria is consulted; appreciate her expert assistance. (3) Congestive heart failure Qualifiers: Heart failure type: systolic Heart failure chronicity: chronic Qualified Code(s): I50.22 - Chronic systolic (congestive) heart failure Is this a current diagnosis for this admission?: Yes Plan: Echocardiogram dated 07/29/2017 demonstrated LVEF 40% with moderate diastolic dysfunction. ProBNP is and troponins are chronically elevated. On exam, patient is noted to have bilateral crackles but no dependent or periorbital edema. Patient does admit to having missed 2 dialysis sessions and having recently been noncompliant with his home medication regiment. We will resume his home medication regiment of Clonidine 0.3 mg transdermal patch, hydralazine 100 mg every 8 hours, and Imdur 120 mg daily. Will monitor blood pressures closely and consider initiating beta-gregorio. Daily weights; strict I&O's. Plans for dialysis tomorrow. (4) Elevated troponin Is this a current diagnosis for this admission?: Yes Plan: Likely secondary to ESRD, CHF, and Hypertensive urgency. Patient denies chest pain. No acute EKG changes noted. Troponin 0.151; will continue to trend. Baseline 0.090 Continue daily warfarin. Hypertensive medications as below. (5) HIV (human immunodeficiency virus infection) Qualifiers: HIV symptom status: unspecified Qualified Code(s): B20 - Human immunodeficiency virus [HIV] disease Is this a current diagnosis for this admission?: Yes Plan: Continue home medication regiment. (6) Hypertensive urgency Is this a current diagnosis for this admission?: Yes Plan: Blood pressures 190/108 on arrival to the ED; improved following IV furosemide. Currently 154/87 We will resume his home medication regiment of Clonidine 0.3 mg transdermal patch, hydralazine 100 mg every 8 hours, and Imdur 120 mg daily. Will monitor blood pressures closely and consider initiating beta-gregorio. Nephrology is consulted. (7) Substance abuse, continuous Is this a current diagnosis for this admission?: Yes Plan: UDS is positive for cocaine. Patient endorses recent use due to "being bored and lonely at home." He is advised on the importance of discontinuing illicit substances as they are likely contributing to his hypertensive urgency, CHF, and have the strong pot ential of causing a fatal event. The patient expresses understanding; "I know I made a mistake." Consider mental health consultation. (8) Tobacco abuse Is this a current diagnosis for this admission?: Yes Plan: Smoking cessation encouraged; nicotine replacement therapies are provided. (9) Noncompliance Is this a current diagnosis for this admission?: Yes Plan: Noncompliance with dialysis schedule and hypertensive medications is the primary cause of the patient's acute respiratory failure with hypoxia. - Time Time Spent: 50 to 70 Minutes Medications reviewed and adjusted accordingly: Yes Anticipated discharge: Home Within: within 24 hours - Plan Summary Plan Summary: Nephrology has been consulted; anticipate dialysis session tomorrow. Likely stable for discharge to home following dialysis.
--- NOTE | 2018-09-28 17:39 | PDOC CONSULTATION ---
Consultation Consult Date: 09/28/18 Attending physician:: TARIK MENDEZ Consult reason:: I was asked to see the patient due to acute hypoxemia with pulmonary vascular congestion in a patient who missed his hemodialysis. History of Present Illness Admission Date/PCP: 09/28/18 15:35 ARUN MORA History of Present Illness: KRISTY CANTU is a 63 year old male with history of end-stage renal disease on hemodialysis on Mondays, Wednesdays and Fridays, hypertension, HIV positive, cocaine addiction, and peripheral vascular disease status post bilateral amputation who was brought into the emergency room via EMS this morning because of acute onset of shortness of breath. Patient's last hemodialysis was last week Friday on September 23. He missed his dialysis last Friday, September 25 because he said it was raining and he could not get up through his ramp at home. So this morning while preparing and dressing up to go to hemodialysis he started having shortness of breathing to the point that he could not speak. He was trying to communicate with his sister who came down and actually called EMS for him. In route he was found to have a pulse oxygenation of 81% so he was given oxygen and magnesium sulfate 2 g IV. In the ER he was placed on BiPAP and his oxygenation was 100%. Patient usually takes Lasix 80 mg daily but ran out last Friday. He has some cough which she thought was worse than his usual cough with sputum production of any air from clear to yellowish. He otherwise denies any fever, nor chills. His chest x-ray showed increase acute superimposed mixed interstitial and airspace disease in the right lower lung. So patient has been maintained on BiPAP in the emergency room. Patient was also given 160 mg IV of Lasix as well as 10 mg IV of hydralazine. His blood pressure was elevated initially and the 196/97. He admitted missing some of his blood pressure medi cations and is currently an active cocaine user. Past Medical History Cardiac Medical History: Reports: CHF-Diastolic, DVT, Hyperlipidemia, Hypertension-primary, Myocardial Infarction, Peripheral Vascular Disease, Pulmonary Embolism Pulmonary Medical History: Reports: Bronchitis, Chronic Obstructive Pulmonary Disease (COPD), Pneumonia, Respiratory Failure Endocrine Medical History: Reports: Diabetes Mellitus Type 2 - insulin dependent Comment Only: Diabetes Mellitus Type 1 - 1.5 Renal/ Medical History: Reports: End Stage Renal Disease - Dialysis MWF, Hyperphosphatemia, Metabolic Acidosis GI Medical History: Reports: Gastroesophageal Reflux Disease Musculoskeltal Medical History: Reports: Arthritis Psychiatric Medical History: Reports: Depression, Substance Abuse, Tobacco Dependency Traumatic Medical History: Denies: Traumatic Brain Injury Infectious Medical History: Reports: HIV Hematology Medical History: Reports Anemia of Chronic Kidney Disease Past Surgical History Past Surgical History: Reports: Dialysis Access Surgery AVF, Orthopedic Surgery - bilateral amputation, R BKA, L AKA, Vascular Surgery - left arm clot removed, IVC filter, thrombectomy 05/18/2018 left arm, Other - Endoscopy; Vascular surgery. Social History Information Source: Patient Lives with: Alone Smoking Status: Current Every Day Smoker Frequency of Alcohol Use: None Hx Recreational Drug Use: Yes - Last used 09/26/18 Drugs: Cocaine Hx Prescription Drug Abuse: No - Advance Directive Resuscitation Status: Full Code Family History Family History: End Stage Renal Disease - brother who was on dialysis, Hypertension - Brother Parental Family History Reviewed: Yes Children Family History Reviewed: NA Sibling(s) Family History Reviewed.: Yes Medication/Allergy Home Medications: Abacavir Sulfate [Abacavir 300 mg Tablet] 600 mg PO DAILY 07/15/18 Clonidine [Catapres-Tts 3 (0.3 mg/24 Hr) Transderm Patch] 1 patch TD GUTIÉRREZ@1000 07/15/18 Dolutegravir Sodium [Tivicay] 50 mg PO DAILY 07/15/18 Furosemide [Lasix 80 mg Tablet] 80 mg PO DAILY 07/15/18 Hydralazine HCl 100 mg PO Q8 07/15/18 Isosorbide Mononitrate [Isosorbide Mononitrate ER] 120 mg PO DAILY 07/15/18 Nitroglycerin [Nitrostat 0.4 mg (1/150 Gr) Tabs 25/Bottle] 1 tab SL Q5MP PRN 07/15/18 Warfarin Sodium [Coumadin 5 mg Tablet] 5 mg PO DAILY 07/15/18 Albuterol Sulfate [Proair HFA Inhalation Aerosol 8.5 gm MDI] 2 puff IH Q6HP PRN 07/27/18 Calcium Acetate 667 mg PO TID 07/27/18 Calcium Carbonate [Tums Chewable 500 mg Tab.chew] 1,000 mg PO DAILY 07/27/18 Lamivudine [Epivir] 5 ml PO DAILY 07/27/18 Warfarin Sodium 5 mg PO DAILY #7 tablet 08/16/18 Allergies/Adverse Reactions: calcitriol Allergy (Verified 08/31/18 14:27) itching Review of Systems All systems: reviewed and no additional remarkable complaints except as stated Review of Systems: Constitutional: ABSENT: chills, fatigue, fever(s), headache(s), weight gain, weight loss Eyes: ABSENT: visual disturbances Ears: ABSENT: hearing changes Cardiovascular: ABSENT: chest pain, dyspnea on exertion, edema, orthropnea, palpitations Respiratory: ABSENT: Hemoptysis; admits acute onset of shortness of breath and worsening cough Gastrointestinal: ABSENT: abdominal pain, constipation, diarrhea, hematemesis, hematochezia, nausea, vomiting Genitourinary: ABSENT: dysuria, hematuria Musculoskeletal: ABSENT: joint swelling Integumentary: ABSENT: rash, wounds Neurological: ABSENT: abnormal gait, abnormal speech, confusion, dizziness, focal weakness, numbness, syncope Psychiatric: ABSENT: anxiety, depression Endocrine: ABSENT: cold intolerance, heat intolerance, polydipsia, polyuria Hematologic/Lymphatic: ABSENT: easy bleeding, easy bruising, lymphadenopathy Physical Exam Vital Signs: Temp Pulse Resp BP Pulse Ox 97.4 F 19 169/89 H 100 09/28/18 09:56 09/28/18 16:01 09/28/18 16:01 09/28/18 16:01 Intake & Output 09/27/18 09/28/18 09/29/18 06:59 06:59 06:59 Weight 75 kg Exam: General appearance: Patient was just taken off the BiPAP to see if he can tolerate without it when I walked in the room, seems to be comfortable without it and he did claim that he feels much better. Head exam: PRESENT: atraumatic, normocephalic Eye exam: PRESENT: Conjunctiva pale, EOMI, PERRLA. ABSENT: conjunctival injection, scleral icterus Mouth exam: PRESENT: moist, neck supple, tongue midline Neck exam: PRESENT: full ROM. ABSENT: carotid bruit, JVD, lymphadenopathy, thyromegaly Respiratory exam: PRESENT: Diminished to auscultation bilaterally. Bilateral b celestina crackles ABSENT: Rhonchi, stridor, wheezes Cardiovascular exam: PRESENT: RRR, +S1, +S2. ABSENT: systolic murmur Pulses: PRESENT: normal radial pulses, normal dorsalis pedis pulses GI/Abdominal exam: PRESENT: normal bowel sounds, soft. ABSENT: guarding, mass, tenderness Rectal exam: Deferred Extremities exam: PRESENT: Bilateral amputee ABSENT: calf tenderness, pedal edema Musculoskeletal: PRESENT: full ROM. ABSENT: deformity Neurological exam: PRESENT: alert, Awake, Oriented to person, Oriented to place, Oriented to time, reflexes normal, CN II-XII grossly intact. ABSENT: motor sensory deficit Psychiatric exam: PRESENT: appropriate affect, normal mood. ABSENT: homicidal ideation, suicidal ideation Skin exam: PRESENT: intact, dry, warm. ABSENT: rash Results Laboratory Results: 09/28/18 16:32 09/28/18 10:00 09/28/18 09/28/18 09/28/18 10:00 10:00 10:00 WBC 10.0 RBC 3.85 L Hgb 12.3 L Hct 35.7 L MCV 93 MCH 31.8 MCHC 34.3 RDW 13.9 Plt Count 219 Seg Neutrophils % 64.7 Lymphocytes % 26.2 Monocytes % 5.4 Eosinophils % 3.3 Basophils % 0.4 Absolute Neutrophils 6.5 Absolute Lymphocytes 2.6 Absolute Monocytes 0.5 Absolute Eosinophils 0.3 Absolute Basophils 0.0 VBG pH VBG pCO2 VBG HCO3 VBG Base Excess Sodium 139.0 Potassium 4.0 Chloride 106 Carbon Dioxide 16 L Anion Gap 17 BUN 76 H Creatinine 10.36 H Est GFR ( Amer) 6 L Est GFR (Non-Af Amer) 5 L Glucose 108 Lactic Acid < 0.5 L Calcium 7.2 L Total Bilirubin 0.4 AST 119 H ALT 69 Alkaline Phosphatase 96 Total Protein 7.3 Albumin 4.3 Urine Color Urine Appearance Urine pH Ur Specific [place] Urine Protein Urine Glucose (UA) Urine Ketones Urine Blood Urine Nitrite Ur Leukocyte Esterase Urine WBC (Auto) Urine RBC (Auto) 09/28/18 09/28/18 09/28/18 12:50 13:45 16:32 WBC 7.3 RBC 3.78 L Hgb 11.9 L Hct 35.0 L MCV 93 MCH 31.4 MCHC 34.0 RDW 13.8 Plt Count 213 Seg Neutrophils % Lymphocytes % Monocytes % Eosinophils % Basophils % Absolute Neutrophils Absolute Lymphocytes Absolute Monocytes Absolute Eosinophils Absolute Basophils VBG pH 7.29 L VBG pCO2 36.2 VBG HCO3 17.1 L VBG Base Excess -8.6 Sodium Potassium Chloride Carbon Dioxide Anion Gap BUN Creatinine Est GFR ( Amer) Est GFR (Non-Af Amer) Glucose Lactic Acid Calcium Total Bilirubin AST ALT Alkaline Phosphatase Total Protein Albumin Urine Color STRAW Urine Appearance CLEAR Urine pH 6.0 Ur Specific [place] 1.010 Urine Protein 100 H Urine Glucose (UA) 50 H Urine Ketones NEGATIVE Urine Blood SMALL H Urine Nitrite NEGATIVE Ur Leukocyte Esterase SMALL H Urine WBC (Auto) 9 Urine RBC (Auto) 1 09/28/18 09/28/18 10:00 10:00 Creatine Kinase 281 H CK-MB (CK-2) 3.16 Troponin I 0.151 Impressions: Chest X-Ray 09/28/18 09:59 IMPRESSION: 1. Since the previous examination dated 08/31/2018, increasing acute superimposed mixed interstitial and airspace disease in the right lower lung. Slight to very mild changes are also suggested in the left mid-lower lung zones. Correlation suggested. Assessment & Plan - Diagnosis (1) Acute on chronic respiratory failure with hypoxemia Is this a current diagnosis for this admission?: Yes Plan: Likely due to pulmonary vascular congestion due to missing dialysis treatment. Patient would require dialysis. Continue BiPAP and the other oxygen suppleme ntation as necessary until patient can be dialyzed. (2) End stage renal disease Is this a current diagnosis for this admission?: Yes Plan: Ideally patient could have been dialyzed today for pulmonary vascular congestion however unfortunately we do not have adequate dialysis staff to do dialysis on the patient today. Patient was attempted to be transferred to other facilities but they could not find anywhere that would accept the patient at this time. So we will upon discussion with her chief operating officer, Shira Welch in our [facility] coordinator Ora Carter agreed to have the patient admitted and be maintained on BiPAP as necessary for dialysis tomorrow morning for pulmonary congestion and fluid overload. Fortunately the patient's potassium is still acceptable. (3) Hypertension Qualifiers: Hypertension type: essential hypertension Qualified Code(s): I10 - Essential (primary) hypertension Is this a current diagnosis for this admission?: Yes Plan: Resume all home blood pressure medications. May give as needed medications with IV hydralazine as necessary. Fluid overload in hypervolemic state can also make this worse. (4) Metabolic acidosis Is this a current diagnosis for this admission?: Yes Plan: Dialysis tomorrow. (5) Noncompliance Is this a current diagnosis for this admission?: Yes (6) Anemia of chronic disease Is this a current diagnosis for this admission?: Yes (7) Hypocalcemia Is this a current diagnosis for this admission?: Yes Plan: Will use of a higher calcium bath. (8) HIV (human immunodeficiency virus infection) Qualifiers: HIV symptom status: unspecified Qualified Code(s): B20 - Human immunodeficiency virus [HIV] disease Is this a current diagnosis for this admission?: Yes Plan: Patient will try to get his medications from home to be brought by his sister so he can continue taking them while here in the hospital. (9) Substance abuse, continuous Is this a current diagnosis for this admission?: Yes Plan: Cocaine user. - Notes Notes: Case discussed the emergency room physician Dr. Cintron. Plan for dialysis tomorrow also discussed with her dialysis nurse. - Time Time Spent: 50 to 70 Minutes
[2018-09-28] MEDS ORDERED: ARIPIPRAZOLE 5 MG TABLET PO ONE (19:30)
[2018-09-28] MEDS ORDERED: DIAZEPAM INJ 10 MG/2 ML DISP.SYRIN IV ONE (19:30)
[2018-09-28] MEDS: IPRATROPIUM/ALBUTEROL 0.5-2.5 MG/3 ML AMPUL NEB SCH (19:36)
[2018-09-28] MEDS ORDERED: NITROGLYCERIN 2% OINTMENT 1 GM PACKET TP ONE (19:44)
[2018-09-28] MEDS ORDERED: CALCIUM GLUCONATE 1,000 MG in DEXTROSE 5%-WATER 50 ML IV ONE (20:03)
[2018-09-28] MEDS ORDERED: CLONIDINE HCL 0.2 MG TABLET ONE (20:03)
[2018-09-28] MEDS ORDERED: NITROGLYCERIN 2% OINTMENT 1 GM PACKET ONE (20:03)
[2018-09-28] MEDS ORDERED: CALCIUM GLUCONATE 1000 MG/10 ML INJ IV ONE ×2 (20:15→23:01)
[2018-09-28] MEDS ORDERED: FENTANYL CITRATE INJ/PF 100 MCG/2 ML AMPUL IV PRN (20:20)
[2018-09-28] MEDS ORDERED: ASPIRIN 81 MG TABLET, CHEWABLE PO ONE (20:30)
[2018-09-28] MEDS ORDERED: CLONIDINE HCL 0.2 MG TABLET PO ONE (20:30)
[2018-09-28 21:22] LABS: CREATINE KINASE MB 4.78 ng/mL (<4.55)
[2018-09-28 21:31] LABS: TROPONIN I 0.216 ng/mL
[2018-09-28] MEDS ORDERED: (PENDING PHARMACY ID) (Hydralazine Hcl [Hydralazine Hcl] 100 MG) PO SCH (22:00)
[2018-09-28] MEDS ORDERED: ASPIRIN 81 MG TABLET, CHEWABLE ONE (23:00)
[2018-09-28] MEDS: HYDRALAZINE HCL 50 MG TABLET PO SCH (23:06)
[2018-09-28] MEDS: FAMOTIDINE 20 MG TABLET PO SCH (23:08)
[2018-09-29] MEDS: DIAZEPAM INJ 10 MG/2 ML DISP.SYRIN IV PRN ×2 (02:51→09:19)
[2018-09-29 02:57] LABS: CREATINE KINASE MB 4.6 ng/mL (<4.55)
[2018-09-29 03:02] LABS: TROPONIN I 0.241 ng/mL
[2018-09-29] MEDS ORDERED: NORMAL SALINE 1000 ML 1,000 ML IV PRN (05:00)
[2018-09-29] MEDS: HYDRALAZINE HCL 50 MG TABLET PO SCH ×3 (05:43→22:51)
[2018-09-29] MEDS: IPRATROPIUM/ALBUTEROL 0.5-2.5 MG/3 ML AMPUL NEB SCH ×2 (08:24→20:06)
[2018-09-29] MEDS: CALCIUM ACETATE 667 MG CAPSULE PO SCH ×3 (08:46→16:22)
[2018-09-29] MEDS: FAMOTIDINE 20 MG TABLET PO SCH ×2 (09:17→22:51)
[2018-09-29] MEDS: ASPIRIN 81 MG TABLET, CHEWABLE PO SCH (09:17)
[2018-09-29] MEDS: NIFEDIPINE 30 MG TAB.ER.24 PO SCH (09:17)
[2018-09-29] MEDS: FUROSEMIDE 80 MG TABLET PO SCH (09:17)
[2018-09-29] MEDS: ISOSORBIDE MONONITRATE 60 MG TAB.ER.24H PO SCH (09:18)
[2018-09-29] MEDS: DOCUSATE SODIUM 100 MG CAPSULE PO SCH (09:18)
[2018-09-29] MEDS: CALCIUM CARBONATE 500 MG TAB.CHEW PO SCH (09:18)
[2018-09-29] MEDS: NICOTINE 7 MG/24 HR PATCH.TD24 TD SCH (09:18)
[2018-09-29] MEDS ORDERED: ABACAVIR SULFATE 600 MG PO SCH (10:00)
[2018-09-29] MEDS ORDERED: LAMIVUDINE PO SCH (10:00)
[2018-09-29] MEDS ORDERED: (PENDING PHARMACY ID) (Dolutegravir Sodium [Tivicay] 50 MG) PO SCH (10:00)
[2018-09-29] MEDS ORDERED: (PENDING PHARMACY ID) (Isosorbide Mononitrate [Isosorbide Mononitrate Er] 120 MG) PO SCH (10:00)
--- NOTE | 2018-09-29 10:04 | RADIOLOGY REPORT (SQ) ---
EXAM DESCRIPTION: CHEST SINGLE VIEW COMPLETED DATE/TIME: 09/29/2018 9:51 am REASON FOR STUDY: chest pain COMPARISON: CT angio chest 08/16/2018 Chest films 08/20/2018, 08/31/2018, 09/28/2018 EXAM PARAMETERS: NUMBER OF VIEWS: One view. TECHNIQUE: Single frontal radiographic view of the chest acquired. RADIATION DOSE: NA LIMITATIONS: None. FINDINGS: LUNGS AND PLEURA: Minimal bibasilar airspace disease likely atelectasis. No pleural effusions. No pneumothorax. MEDIASTINUM AND HILAR STRUCTURES: No masses. Contour normal. HEART AND VASCULAR STRUCTURES: Stable moderate cardiomegaly BONES: No acute findings. HARDWARE: Old surgical clips in the right infraclavicular region OTHER: No other significant finding. IMPRESSION: Minimal bibasilar atelectasis TECHNICAL DOCUMENTATION: JOB ID: [id number] [employer]- All Rights Reserved Reading location - IP/workstation name: [email or web address]
[2018-09-29 10:08] LABS: INTERNATIONAL RATION (INR) 1.34; PROTHROMBIN TIME 17.2 SEC (11.4-15.4)
[2018-09-29 10:18] LABS: CREATINE KINASE MB 4.04 ng/mL (<4.55); TROPONIN I 0.252 ng/mL
[2018-09-29 10:27] LABS: ANION GAP 18 (5-19); BLOOD UREA NITROGEN 82 mg/dL (7-20); CARBON DIOXIDE 14 mmol/L (22-30); CHLORIDE 104 mmol/L (98-107); CREATINE KINASE 229 U/L (55-170); GLUCOSE 217 mg/dL (75-110); POTASSIUM 3.9 mmol/L (3.6-5.0); SODIUM 136.2 mmol/L (137-145)
[2018-09-29 10:36] LABS: CALCIUM 6.9 mg/dL (8.4-10.2)
[2018-09-29] MEDS ORDERED: CALCIUM GLUCONATE 1,000 MG in DEXTROSE 5%-WATER 50 ML IV ONE (11:44)
--- NOTE | 2018-09-29 11:52 | PDOC PROGRESS REPORT ---
Subjective Progress Note for:: 09/29/18 Subjective:: I am seeing the patient during initiation of hemodialysis today. Patient seems comfortable just on nasal cannula and not on BiPAP anymore. He is not complaining of shortness of breath no chest pains at the moment. His blood pressure is better. Reason For Visit: ACUTE RESPIRATORY FAILURE WITH HYPOXIA,ESRD ON Physical Exam Vital Signs: Temp Pulse Resp BP Pulse Ox 97.8 F 77 20 148/73 H 99 09/29/18 08:23 09/29/18 08:23 09/29/18 08:23 09/29/18 08:23 09/29/18 08:23 Intake & Output 09/28/18 09/29/18 09/30/18 06:59 06:59 06:59 Weight 71.8 kg Vitals on dialysis: Blood pressure 150/73, heart rate of 86, blood flow 450 mL/min and dialysate flow rate 800ml/min. Exam: General appearance: PRESENT: no acute distress, cooperative, well-developed, well-nourished Head exam: PRESENT: atraumatic, normocephalic Eye exam: PRESENT: conjunctiva pink, PERRLA. ABSENT: scleral icterus Neck exam: ABSENT: JVD Respiratory exam: PRESENT: Diminished breath sounds. ABSENT: crackles, rales, rhonchi, unlabored, wheezes Cardiovascular exam: PRESENT: Regular rate rhythm -+S1, +S2. ABSENT: diastolic murmur, systolic murmur GI/Abdominal exam: PRESENT: normal bowel sounds, soft. ABSENT: guarding, mass, tenderness Extremities exam: ABSENT: No edema; right BKA and left AKA Neurological exam: PRESENT: alert, awake, oriented to person, place and time. Skin exam: PRESENT: dry, warm, Results Laboratory Results: 09/28/18 16:32 09/29/18 08:46 09/28/18 09/28/18 09/28/18 12:50 13:45 16:32 WBC 7.3 RBC 3.78 L Hgb 11.9 L Hct 35.0 L MCV 93 MCH 31.4 MCHC 34.0 RDW 13.8 Plt Count 213 VBG pH 7.29 L VBG pCO2 36.2 VBG HCO3 17.1 L VBG Base Excess -8.6 Sodium Potassium Chloride Carbon Dioxide Anion Gap BUN Creatinine Est GFR ( Amer) Est GFR (Non-Af Amer) Glucose Calcium Urine Color STRAW Urine Appearance CLEAR Urine pH 6.0 Ur Specific [place] 1.010 Urine Protein 100 H Urine Glucose (UA) 50 H Urine Ketones NEGATIVE Urine Blood SMALL H Urine Nitrite NEGATIVE Ur Leukocyte Esterase SMALL H Urine WBC (Auto) 9 Urine RBC (Auto) 1 09/29/18 08:46 WBC RBC Hgb Hct MCV MCH MCHC RDW Plt Count VBG pH VBG pCO2 VBG HCO3 VBG Base Excess Sodium 136.2 L Potassium 3.9 Chloride 104 Carbon Dioxide 14 L Anion Gap 18 BUN 82 H Creatinine 11.16 H Est GFR ( Amer) 6 L Est GFR (Non-Af Amer) 5 L Glucose 217 H Calcium 6.9 L* Urine Color Urine Appearance Urine pH Ur Specific [place] Urine Protein Urine Glucose (UA) Urine Ketones Urine Blood Urine Nitrite Ur Leukocyte Esterase Urine WBC (Auto) Urine RBC (Auto) 09/28/18 09/28/18 09/28/18 10:00 10:00 16:40 Creatine Kinase 281 H CK-MB (CK-2) 3.16 Troponin I 0.151 0.214 09/28/18 09/28/18 09/29/18 20:18 20:18 02:07 Creatine Kinase 281 H 238 H CK-MB (CK-2) 4.78 H Troponin I 0.216 09/29/18 09/29/18 09/29/18 02:07 08:46 08:46 Creatine Kinase 229 H CK-MB (CK-2) 4.60 H 4.04 Troponin I 0.241 0.252 Impressions: Chest X-Ray 09/29/18 00:00 IMPRESSION: Minimal bibasilar atelectasis Assessment & Plan - Diagnosis (1) Acute on chronic respiratory failure with hypoxemia Is this a current diagnosis for this admission?: Yes Plan: Currently improving on BiPAP anymore. (2) End stage renal disease Is this a current diagnosis for this admission?: Yes Plan: We will do dialysis today for 3 hours, using the patient's left arm AV fistula, with 3 potassium bath, blood flow rate of 450 mL per minute, dialysate flow rate of 800 mL per minute, ultrafiltration 3-4 L as tolerated, no heparin and no Procrit. We will also changed bath with 3 calcium bath and give the patient IV calcium gluconate. Treatment plan discussed with dialysis nurse. Patient will be monitored continuously throughout the treatment. (3) Hypertension Qualifiers: Hypertension type: essential hypertension Qualified Code(s): I10 - Essential (primary) hypertension Is this a current diagnosis for this admission?: Yes Plan: Improved blood pressure. (4) Metabolic acidosis Is this a current diagnosis for this admission?: Yes Plan: Due to missing dialysis treatments. Dialysis would improve this. (5) Noncompliance Is this a current diagnosis for this admission?: Yes (6) Anemia of chronic disease Is this a current diagnosis for this admission?: Yes (7) Hypocalcemia Is this a current diagnosis for this admission?: Yes Plan: Used 3 calcium bath on dialysis and give an amp of IV calcium gluconate (8) HIV (human immunodeficiency virus infection) Qualifiers: HIV symptom status: unspecified Qualified Code(s): B20 - Human immunodeficiency virus [HIV] disease Is this a current diagnosis for this admission?: Yes (9) Substance abuse, continuous Is this a current diagnosis for this admission?: Yes - Time Time with patient: 15-25 minutes
--- NOTE | 2018-09-29 12:12 | EKG REPORT ---
SEVERITY:- ABNORMAL ECG - SINUS RHYTHM LEFT ANTERIOR FASCICULAR BLOCK LEFT VENTRICULAR HYPERTROPHY PROLONGED QT INTERVAL : Confirmed by: Marco Young MD 29-Sep-2018 12:11:25
[2018-09-29] MEDS ORDERED: CALCIUM GLUCONATE 1000 MG/10 ML INJ IV ONE ×2 (13:00→14:00)
[2018-09-29] MEDS: LAMIVUDINE 10 MG/ML PO SCH (16:21)
[2018-09-29] MEDS: DOLUTEGRAVIR SODIUM 50 MG PO SCH (16:22)
--- NOTE | 2018-09-29 17:09 | PDOC PROGRESS REPORT ---
Subjective Progress Note for:: 09/29/18 Subjective:: The patient is resting in his bed. He has been weaned off of his BiPAP at this point. He is going to be dialyzed today and hopefully we can send him back to his facility tomorrow. He states his breathing is somewhat better. He denies fever or shaking chills. No chest pain or heart palpitations. No nausea vomiting or diarrhea. No urinary complaints. Reason For Visit: ACUTE RESPIRATORY FAILURE WITH HYPOXIA,ESRD ON Physical Exam Vital Signs: Temp Pulse Resp BP Pulse Ox 98.1 F 92 16 161/72 H 97 09/29/18 16:30 09/29/18 16:30 09/29/18 16:30 09/29/18 16:30 09/29/18 16:30 Intake & Output 09/28/18 09/29/18 09/30/18 06:59 06:59 06:59 Output Total 3500 Balance -3500 Weight 71.8 kg General appearance: PRESENT: no acute distress, well-developed, well-nourished Head exam: PRESENT: atraumatic, normocephalic Mouth exam: PRESENT: moist, tongue midline Respiratory exam: PRESENT: crackles - In the lower bases bilaterally Cardiovascular exam: PRESENT: RRR. ABSENT: diastolic murmur, rubs, systolic mu rmur GI/Abdominal exam: PRESENT: ascites Extremities exam: PRESENT: other - He has a right below the knee amputation and a left [id number] amputation. Neurological exam: PRESENT: alert, awake, oriented to person, oriented to place, oriented to time, oriented to situation, CN II-XII grossly intact. ABSENT: motor sensory deficit Psychiatric exam: PRESENT: appropriate affect, normal mood. ABSENT: homicidal ideation, suicidal ideation Skin exam: PRESENT: dry, intact, warm. ABSENT: cyanosis, rash Results Laboratory Results: 09/28/18 16:32 09/29/18 08:46 09/29/18 08:46 Sodium 136.2 L Potassium 3.9 Chloride 104 Carbon Dioxide 14 L Anion Gap 18 BUN 82 H Creatinine 11.16 H Est GFR ( Amer) 6 L Est GFR (Non-Af Amer) 5 L Glucose 217 H Calcium 6.9 L* 09/28/18 09/28/18 09/28/18 10:00 10:00 16:40 Creatine Kinase 281 H CK-MB (CK-2) 3.16 Troponin I 0.151 0.214 09/28/18 09/28/18 09/29/18 20:18 20:18 02:07 Creatine Kinase 281 H 238 H CK-MB (CK-2) 4.78 H Troponin I 0.216 09/29/18 09/29/18 09/29/18 02:07 08:46 08:46 Creatine Kinase 229 H CK-MB (CK-2) 4.60 H 4.04 Troponin I 0.241 0.252 Impressions: Chest X-Ray 09/29/18 00:00 IMPRESSION: Minimal bibasilar atelectasis Assessment & Plan - Diagnosis (1) Acute on chronic respiratory failure with hypoxemia Is this a current diagnosis for this admission?: Yes Plan: Improving. He is still requiring intermittent BiPAP support. Hopefully this will improve after dialysis today. (2) Acute on chronic combined systolic and diastolic heart failure Is this a current diagnosis for this admission?: Yes Plan: Nephrology is managing his volume status. He is decompensated because he missed dialysis (3) ESRD needing dialysis Is this a current diagnosis for this admission?: Yes Plan: He will be urgently dialyzed today. (4) HIV (human immunodeficiency virus infection) Qualifiers: HIV symptom status: unspecified Qualified Code(s): B20 - Human immunodeficiency virus [HIV] disease Is this a current diagnosis for this admission?: Yes Plan: Stable (5) Elevated troponin Is this a current diagnosis for this admission?: Yes Plan: Secondary to his underlying renal failure. Also decompensated heart failure. (6) Noncompliance Is this a current diagnosis for this admission?: Yes (7) Anemia Is this a current diagnosis for this admission?: Yes (8) Hypertensive urgency Is this a current diagnosis for this admission?: Yes Plan: Improved (9) Substance abuse, continuous Is this a current diagnosis for this admission?: Yes Plan: Certainly abstinence is recommended (10) Tobacco abuse Is this a current diagnosis for this admission?: Yes Plan: Certainly would be in his best interest to quit smoking (11) Full code status Is this a current diagnosis for this admission?: Yes - Time Time Spent with patient: 35 or more minutes - Inpatient Certification Medical Necessity: Other - Inpatient hospitalization remains necessary. The patient will be dialyzed today. He is likely volume overloaded because he had missed dialysis and still needed further fluid to get off. I am hopeful we can send him back to his facility tomorrow.
[2018-09-29] MEDS: WARFARIN SODIUM 5 MG TABLET PO SCH (22:52)
[2018-09-30 04:58] LABS: ABSOLUTE EOSINOPHILS # (AUTO) 0.4 10^3/uL (0.0-0.6); ABSOLUTE LYMPHOCYTES (AUTO) 2.3 10^3/uL (0.5-4.7); ABSOLUTE MONOCYTES (AUTO) 0.7 10^3/uL (0.1-1.4); ABSOLUTE NEUT (AUTO) 2.6 10^3/uL (1.7-8.2); BASOPHILS % (AUTO) 0.6 % (0-2); EOSINOPHILS % (AUTO) 7.2 % (0-6); HEMATOCRIT 33.2 % (37.9-51.0); HEMOGLOBIN 11.4 g/dL (13.5-17.0); LYMPHOCYTES % (AUTO) 37.3 % (13-45); MEAN CORPUSCULAR HEMOGLOBIN 31.5 pg (27.0-33.4); MEAN CORPUSCULAR HGB CONC 34.4 g/dL (32.0-36.0); MEAN CORPUSCULAR VOLUME 91 fl (80-97); MONOCYTES % (AUTO) 12.1 % (3-13); PLATELET COUNT 183 10^3/uL (150-450); RED BLOOD COUNT 3.63 10^6/uL (4.35-5.55); RED CELL DISTRIBUTION WIDTH 13.8 % (11.5-14.0); SEGMENTED NEUTROPHILS % (AUTO) 42.8 % (42-78); TOTAL CELLS COUNTED % (AUTO) 100 %; WHITE BLOOD COUNT 6.1 10^3/uL (4.0-10.5)
[2018-09-30] MEDS ORDERED: NORMAL SALINE 1000 ML 1,000 ML IV PRN (05:00)
[2018-09-30 05:06] LABS: PROTHROMBIN TIME 16.8 SEC (11.4-15.4)
[2018-09-30 05:21] LABS: CALCIUM 8.2 mg/dL (8.4-10.2); CHLORIDE 99 mmol/L (98-107); GLUCOSE 102 mg/dL (75-110); POTASSIUM 3.7 mmol/L (3.6-5.0); SODIUM 136.9 mmol/L (137-145)
[2018-09-30 05:31] LABS: ANION GAP 11 (5-19)
[2018-09-30 05:35] LABS: BLOOD UREA NITROGEN 44 mg/dL (7-20); CARBON DIOXIDE 27 mmol/L (22-30)
[2018-09-30] MEDS: HYDRALAZINE HCL 50 MG TABLET PO SCH ×3 (06:21→21:13)
[2018-09-30] MEDS: IPRATROPIUM/ALBUTEROL 0.5-2.5 MG/3 ML AMPUL NEB SCH ×2 (09:12→19:20)
[2018-09-30] MEDS: ISOSORBIDE MONONITRATE 60 MG TAB.ER.24H PO SCH (09:51)
[2018-09-30] MEDS: ASPIRIN 81 MG TABLET, CHEWABLE PO SCH (09:51)
[2018-09-30] MEDS: DOCUSATE SODIUM 100 MG CAPSULE PO SCH (09:51)
[2018-09-30] MEDS: FUROSEMIDE 80 MG TABLET PO SCH (09:51)
[2018-09-30] MEDS: CALCIUM ACETATE 667 MG CAPSULE PO SCH ×3 (09:51→18:15)
[2018-09-30] MEDS: NICOTINE 7 MG/24 HR PATCH.TD24 TD SCH (09:52)
[2018-09-30] MEDS: FAMOTIDINE 20 MG TABLET PO SCH ×2 (09:53→21:14)
[2018-09-30] MEDS: LAMIVUDINE 10 MG/ML PO SCH ×2 (09:54→14:41)
[2018-09-30] MEDS: DOLUTEGRAVIR SODIUM 50 MG PO SCH ×2 (09:54→14:41)
[2018-09-30] MEDS: NIFEDIPINE 30 MG TAB.ER.24 PO SCH (09:54)
[2018-09-30] MEDS: CALCIUM CARBONATE 500 MG TAB.CHEW PO SCH (09:54)
[2018-09-30] MEDS ORDERED: LIDOCAINE 2% VISCOUS SOLN 20 ML UDCUP PO PRN (13:52)
[2018-09-30] MEDS ORDERED: MAG HYDROX/AL HYDROX/SIMETH SUSP 30 ML UDCUP PO PRN (13:52)
[2018-09-30] MEDS ORDERED: METOCLOPRAMIDE HCL ORAL SOLN 10 MG/10 ML UDCUP PO PRN (13:52)
[2018-09-30] MEDS ORDERED: LANSOPRAZOLE 30 MG TAB.RAP.DR PO SCH (14:00)
--- NOTE | 2018-09-30 14:43 | RADIOLOGY REPORT (SQ) ---
EXAM DESCRIPTION: CHEST SINGLE VIEW COMPLETED DATE/TIME: 09/30/2018 2:28 pm REASON FOR STUDY: chest pain COMPARISON: 09/29/2018. EXAM PARAMETERS: NUMBER OF VIEWS: One view. TECHNIQUE: Single frontal radiographic view of the chest acquired. RADIATION DOSE: NA LIMITATIONS: None. FINDINGS: LUNGS AND PLEURA: Mild basilar atelectasis, slightly improved. No focal infiltrates, mass es or pneumothorax. No pleural effusion. MEDIASTINUM AND HILAR STRUCTURES: No masses. Contour normal. HEART AND VASCULAR STRUCTURES: Heart normal in size. Normal vasculature. BONES: No acute findings. HARDWARE: None in the chest. OTHER: No other significant finding. IMPRESSION: SLIGHT IMPROVEMENT IN THE MILD BASILAR ATELECTASIS. TECHNICAL DOCUMENTATION: JOB ID: [id number] [employer]- All Rights Reserved Reading location - IP/workstation name: [email or web address]
[2018-09-30] MEDS: TRAMADOL HCL 50 MG TABLET PO PRN ×2 (14:44→21:14)
[2018-09-30] MEDS: PANTOPRAZOLE SODIUM 40 MG TABLET.DR PO SCH (14:44)
--- NOTE | 2018-09-30 17:19 | PDOC PROGRESS REPORT ---
Subjective Progress Note for:: 09/30/18 Subjective:: The patient is an unfortunate 63-year-old -[place] male with a past medical history significant for COPD, chronic systolic congestive heart failure, end-stage renal disease on dialysis, noncompliance with his dialysis schedule at times. He also has a history of HIV, substance abuse anemia and multiple PEs/DVTs on chronic Coumadin therapy. He also is a bilateral amputee who lives by himself but is fully equipped at home. [facility] with sudden onset of shortness of breath. At the time of admission the patient was found to be quite hypoxic on room air. The patient has chronic only elevated troponins in the setting of CHF and chronic kidney disease. His initial troponins were trended and were flat. The patient did not have chest pain at the time of admission but had recently used cocaine. His urine drug screen confirmed this. In any event the patient had missed dialysis due to the rain and being unable to get to dialysis for treatment. He was found to be volume overloaded. He was urgently dialyzed. He was eventually weaned off of BiPAP and has been doing well. I went to see the patient this morning with the intention of discharging him. However he states that he has been having midsternal chest pain and is feeling quite nauseated. He does not feel good leaving the hospital while having active chest pain. A repeat EKG was obtained which basically is unchanged. We are going to keep him in the hospital overnight to make sure he remained stable but he likely can be discharged tomorrow. Today he denies fever or shaking chills. He states he is having chest discomfort. It is substernal and does not radiate. No heart palpitations. He does not have a cough. He is not feeling as short of breath. No vomiting but he has been nauseated. No abdominal pain. He does make a little urine and he does not have any urinary complaints Reason For Visit: ACUTE RESPIRATORY FAILURE WITH HYPOXIA,ESRD ON Physical Exam Vital Signs: Temp Pulse Resp BP Pulse Ox 98.7 F 104 H 16 154/81 H 95 09/30/18 12:01 09/30/18 14:00 09/30/18 12:01 09/30/18 12:01 09/30/18 12:01 Intake & Output 09/29/18 09/30/18 10/01/18 06:59 06:59 06:59 Intake Total 1622 Output Total 4125 3400 Balance -2503 -3400 Weight 71.8 kg 73.5 kg 73.5 kg General appearance: PRESENT: no acute distress, well-developed, well-nourished Head exam: PRESENT: atraumatic, normocephalic Respiratory exam: PRESENT: clear to auscultation ramila. ABSENT: rales, rhonchi, wheezes Cardiovascular exam: PRESENT: RRR. ABSENT: diastolic murmur, rubs, systolic murmur GI/Abdominal exam: PRESENT: normal bowel sounds, soft. ABSENT: distended, guarding, mass, organolmegaly, rebound, tenderness Rectal exam: PRESENT: deferred Extremities exam: PRESENT: other - Bilateral amputee. Neurological exam: PRESENT: alert, awake, oriented to person, oriented to place, oriented to time, oriented to situation, CN II-XII grossly intact. ABSENT: motor sensory deficit Psychiatric exam: PRESENT: appropriate affect, normal mood. ABSENT: homicidal ideation, suicidal ideation Results Laboratory Results: 09/30/18 03:56 09/30/18 03:56 09/29/18 09/30/18 09/30/18 19:50 03:56 03:56 WBC 6.1 RBC 3.63 L Hgb 11.4 L Hct 33.2 L MCV 91 MCH 31.5 MCHC 34.4 RDW 13.8 Plt Count 183 Seg Neutrophils % 42.8 Lymphocytes % 37.3 Monocytes % 12.1 Eosinophils % 7.2 H Basophils % 0.6 Absolute Neutrophils 2.6 Absolute Lymphocytes 2.3 Absolute Monocytes 0.7 Absolute Eosinophils 0.4 Absolute Basophils 0.0 Sodium 136.9 L Potassium 3.7 Chloride 99 Carbon Dioxide 27 D Anion Gap 11 BUN 44 H D Creatinine 6.55 H Est GFR ( Amer) 10 L Est GFR (Non-Af Amer) 9 L Glucose 102 Calcium 8.2 L Magnesium 2.3 Stool Occult Blood NEGATIVE 09/28/18 09/28/18 09/28/18 10:00 10:00 16:40 Creatine Kinase 281 H CK-MB (CK-2) 3.16 Troponin I 0.151 0.214 09/28/18 09/28/18 09/29/18 20:18 20:18 02:07 Creatine Kinase 281 H 238 H CK-MB (CK-2) 4.78 H Troponin I 0.216 09/29/18 09/29/18 09/29/18 02:07 08:46 08:46 Creatine Kinase 229 H CK-MB (CK-2) 4.60 H 4.04 Troponin I 0.241 0.252 09/30/18 14:18 Creatine Kinase CK-MB (CK-2) Troponin I 0.166 Impressions: Chest X-Ray 09/30/18 00:00 IMPRESSION: SLIGHT IMPROVEMENT IN THE MILD BASILAR ATELECTASIS. Assessment & Plan - Diagnosis (1) Acute on chronic respiratory failure with hypoxemia Is this a current diagnosis for this admission?: Yes Plan: Resolving. He is no longer requiring BiPAP. Currently stable on room air this morning. (2) Acute on chronic combined systolic and diastolic heart failure Is this a current diagnosis for this admission?: Yes Plan: He has been dialyzed with much improvement. Nephrology is managing his volume status. He became overloaded due to the fact that he missed dialysis. (3) Chest pain Is this a current diagnosis for this admission?: Yes Plan: I will trend his troponins again. EKG is reassuring. I am going to give him a GI cocktail as he is nauseated. He may be having some GI issues going on. We will follow-up with these results. (4) ESRD needing dialysis Is this a current diagnosis for this admission?: Yes Plan: He received dialysis both yesterday and today and is feeling much better. He dialyzes on Friday and Friday. Once again it was stressed the impo rtance of compliance (5) HIV (human immunodeficiency virus infection) Qualifiers: HIV symptom status: unspecified Qualified Code(s): B20 - Human immunodeficiency virus [HIV] disease Is this a current diagnosis for this admission?: Yes Plan: Stable (6) Elevated troponin Is this a current diagnosis for this admission?: Yes Plan: He has chronically elevated troponins due to his end-stage renal disease and heart failure. His initial troponins were flat. We will trend these today. (7) Noncompliance Is this a current diagnosis for this admission?: Yes Plan: Certainly the patient has a history of ongoing noncompliance. (8) Anemia Is this a current diagnosis for this admission?: Yes Plan: Related to his underlying end-stage renal disease. Stable (9) Hypertensive urgency Is this a current diagnosis for this admission?: Yes Plan: Resolved. Likely due to his volume overloaded state. (10) Substance abuse, continuous Is this a current diagnosis for this admission?: Yes Plan: He is recently used cocaine. He has been advised of the risks. The recommendation is abstinence. (11) Tobacco abuse Is this a current diagnosis for this admission?: Yes Plan: Certainly would be in his best interest to quit smoking (12) Full code status Is this a current diagnosis for this admission?: Yes - Time Time Spent with patient: 35 or more minutes - Inpatient Certification Medical Necessity: Other - The patient will remain in the hospital. I am concerned that he is having active chest pain. I would like to monitor him in the hospital overnight to make sure that he is not developing any sort of cardiac issue. He also could be having some GI issues as well. He will be started on Protonix and given a GI cocktail today to see if this helps.
--- NOTE | 2018-09-30 17:54 | PDOC PROGRESS REPORT ---
Subjective Progress Note for:: 09/30/18 Subjective:: I saw the patient during dialysis this morning at around 8:25 AM. Patient is very comfortable in room air and is not short of breath. He does not really have any new complaints. Reason For Visit: ACUTE RESPIRATORY FAILURE WITH HYPOXIA,ESRD ON Physical Exam Vital Signs: Temp Pulse Resp BP Pulse Ox 98.7 F 104 H 16 154/81 H 95 09/30/18 12:01 09/30/18 14:00 09/30/18 12:01 09/30/18 12:01 09/30/18 12:01 Intake & Output 09/29/18 09/30/18 10/01/18 06:59 06:59 06:59 Intake Total 1622 Output Total 4125 3400 Balance -2503 -3400 Weight 71.8 kg 73.5 kg 73.5 kg Vitals during dialysis: Blood pressure 184/85, heart rate of 85, blood flow rate of 400 mL/min, dialysate flow rate of 800 mL/min. Oxygen saturation 96% at room air. Exam: General appearance: PRESENT: no acute distress, cooperative, well-developed, well-nourished Head exam: PRESENT: atraumatic, normocephalic Eye exam: PRESENT: conjunctiva slightly pale, PERRLA. ABSENT: scleral icterus Neck exam: ABSENT: JVD Respiratory exam: PRESENT: Normal breath sounds. ABSENT: crackles, rales, rhonchi, unlabored, wheezes Cardiovascular exam: PRESENT: Regular rate rhythm -+S1, +S2. ABSENT: diastolic murmur, systolic murmur GI/Abdominal exam: PRESENT: normal bowel sounds, soft. ABSENT: guarding, mass, tenderness Extremities exam: ABSENT: No edema Neurological exam: PRESENT: alert, awake, oriented to person, place and time. Skin exam: PRESENT: dry, warm, Results Laboratory Results: 09/30/18 03:56 09/30/18 03:56 09/29/18 09/30/18 09/30/18 19:50 03:56 03:56 WBC 6.1 RBC 3.63 L Hgb 11.4 L Hct 33.2 L MCV 91 MCH 31.5 MCHC 34.4 RDW 13.8 Plt Count 183 Seg Neutrophils % 42.8 Lymphocytes % 37.3 Monocytes % 12.1 Eosinophils % 7.2 H Basophils % 0.6 Absolute Neutrophils 2.6 Absolute Lymphocytes 2.3 Absolute Monocytes 0.7 Absolute Eosinophils 0.4 Absolute Basophils 0.0 Sodium 136.9 L Potassium 3.7 Chloride 99 Carbon Dioxide 27 D Anion Gap 11 BUN 44 H D Creatinine 6.55 H Est GFR ( Amer) 10 L Est GFR (Non-Af Amer) 9 L Glucose 102 Calcium 8.2 L Magnesium 2.3 Stool Occult Blood NEGATIVE 09/28/18 09/28/18 09/28/18 10:00 10:00 16:40 Creatine Kinase 281 H CK-MB (CK-2) 3.16 Troponin I 0.151 0.214 09/28/18 09/28/18 09/29/18 20:18 20:18 02:07 Creatine Kinase 281 H 238 H CK-MB (CK-2) 4.78 H Troponin I 0.216 09/29/18 09/29/18 09/29/18 02:07 08:46 08:46 Creatine Kinase 229 H CK-MB (CK-2) 4.60 H 4.04 Troponin I 0.241 0.252 09/30/18 14:18 Creatine Kinase CK-MB (CK-2) Troponin I 0.166 Impressions: Chest X-Ray 09/30/18 00:00 IMPRESSION: SLIGHT IMPROVEMENT IN THE MILD BASILAR ATELECTASIS. Assessment & Plan - Diagnosis (1) End stage renal disease Is this a current diagnosis for this admission?: Yes Plan: We did dialysis today for 3 hours, using the patient's AV fistula, with 3 potassium bath, blood flow rate of 400 mL per minute, dialysate flow rate of 800 mL per minute, ultrafiltration 3-4 L as tolerated, no heparin and no Procrit. Patient was monitored throughout dialysis treatment and he was able to tolerate ultrafiltration without any complications. (2) Acute on chronic respiratory failure with hypoxemia Is this a current diagnosis for this admission?: Yes Plan: Resolved after dialysis last Friday. (3) Hypertension Qualifiers: Hypertension type: essential hypertension Qualified Code(s): I10 - Essential (primary) hypertension Is this a current diagnosis for this admission?: Yes Plan: Continue current blood pressure regimen. (4) Metabolic acidosis Is this a current diagnosis for this admission?: Yes Plan: Resolved with dialysis. (5) Noncompliance Is this a current diagnosis for this admission?: Yes (6) Anemia of chronic disease Is this a current diagnosis for this admission?: Yes (7) Hypocalcemia Is this a current diagnosis for this admission?: Yes Plan: Improved. Patient was dialyzed using 3 calcium bath. (8) HIV (human immunodeficiency virus infection) Qualifiers: HIV symptom status: unspecified Qualified Code(s): B20 - Human immunodeficiency virus [HIV] disease Is this a current diagnosis for this admission?: Yes (9) Substance abuse, continuous Is this a current diagnosis for this admission?: Yes - Notes Notes: From nephrology standpoint I think patient is stable enough to be discharged home. Once discharged she can continue his outpatient dialysis at [facility] on his regular scheduled time. - Time Time with patient: 15-25 minutes
--- NOTE | 2018-09-30 19:25 | EKG REPORT ---
SEVERITY:- ABNORMAL ECG - SINUS RHYTHM VENTRICULAR PREMATURE COMPLEX PROBABLE LEFT ATRIAL ABNORMALITY LEFT ANTERIOR FASCICULAR BLOCK LEFT VENTRICULAR HYPERTROPHY PROLONGED QT INTERVAL : Confirmed by: Marco Young MD 30-Sep-2018 19:24:39
[2018-09-30] MEDS: WARFARIN SODIUM 5 MG TABLET PO SCH (21:14)
[2018-10-01 05:24] LABS: PROTHROMBIN TIME 14.8 SEC (11.4-15.4)
[2018-10-01] MEDS: HYDRALAZINE HCL 50 MG TABLET PO SCH (05:34)
[2018-10-01] MEDS: PANTOPRAZOLE SODIUM 40 MG TABLET.DR PO SCH (05:36)
[2018-10-01] MEDS: IPRATROPIUM/ALBUTEROL 0.5-2.5 MG/3 ML AMPUL NEB SCH (07:34)
[2018-10-01] MEDS ORDERED: TRAMADOL HCL 50 MG TABLET PO PRN (07:48)
[2018-10-01] MEDS: CALCIUM ACETATE 667 MG CAPSULE PO SCH (09:19)
[2018-10-01] MEDS: NICOTINE 7 MG/24 HR PATCH.TD24 TD SCH (09:20)
[2018-10-01] MEDS: ISOSORBIDE MONONITRATE 60 MG TAB.ER.24H PO SCH (09:20)
[2018-10-01] MEDS: ASPIRIN 81 MG TABLET, CHEWABLE PO SCH (09:20)
[2018-10-01] MEDS: NIFEDIPINE 30 MG TAB.ER.24 PO SCH (09:20)
[2018-10-01] MEDS: FUROSEMIDE 80 MG TABLET PO SCH (09:20)
[2018-10-01] MEDS: CALCIUM CARBONATE 500 MG TAB.CHEW PO SCH (09:21)
[2018-10-01] MEDS: LAMIVUDINE 10 MG/ML PO SCH (09:23)
[2018-10-01] MEDS: DOLUTEGRAVIR SODIUM 50 MG PO SCH (09:23)
[2018-10-01] MEDS: DOCUSATE SODIUM 100 MG CAPSULE PO SCH (09:29)
[2018-10-01 11:04] VITALS: BP 170/92
--- NOTE | 2018-10-01 16:09 | PDOC DISCHARGE SUMMARY ---
General - Admit/Disc Date/PCP Admission Date/Primary Care Provider: 09/28/18 15:35 MATHIEU MACIAS ASSOCIATE PROFESSOR OF BIOLOGY Discharge Date: 10/01/18 - Discharge Diagnosis (1) Acute on chronic combined systolic and diastolic heart failure Is this a current diagnosis for this admission?: Yes Summary: We diuresed him through dialysis. He went into heart failure because he missed a couple of dialysis treatments. We got him back close to his dry weight. (2) Acute on chronic respiratory failure with hypoxemia Is this a current diagnosis for this admission?: Yes Summary: This resolved as we got the extra fluid off of him (3) Anemia of chronic disease Is this a current diagnosis for this admission?: Yes Summary: Being monitored by his reproductive endocrinologist (4) ESRD needing dialysis Is this a current diagnosis for this admission?: Yes Summary: Seen in consultation by nephrology for his hemodialysis treatments here (5) HIV (human immunodeficiency virus infection) Is this a current diagnosis for this admission?: Yes Summary: Stable on his current medication regimen (6) History of DVT (deep vein thrombosis) Is this a current diagnosis for this admission?: Yes Summary: Continued his warfarin (7) Hx pulmonary embolism Is this a current diagnosis for this admission?: Yes Summary: Continued warfarin (8) Substance abuse, continuous Is this a current diagnosis for this admission?: Yes Summary: we advised programs of abstinence - Additional Information Resuscitation Status: Full Code Discharge Diet: Cardiac Discharge Activity: Activity As Tolerated, Balance Activity w/Rest, Weigh Daily Home Medications: Abacavir Sulfate [Abacavir 300 mg Tablet] 600 mg PO BID 07/15/18 Clonidine [Catapres-Tts 3 (0.3 mg/24 Hr) Transderm Patch] 1 patch TD TH@1000 07/15/18 Dolutegravir Sodium [Tivicay] 50 mg PO DAILY 07/15/18 Furosemide [Lasix 80 mg Tablet] 80 mg PO DAILY 07/15/18 Isosorbide Mononitrate [Isosorbide Mononitrate ER] 120 mg PO DAILY 07/15/18 Nitroglycerin [Nitrostat 0.4 mg (1/150 Gr) Tabs 25/Bottle] 1 tab SL Q5MP PRN 07/15/18 Albuterol Sulfate [Proair HFA Inhalation Aerosol 8.5 gm MDI] 2 puff IH Q6HP PRN 07/27/18 Calcium Acetate 667 mg PO TID 07/27/18 Lamivudine [Epivir] 5 ml PO DAILY 07/27/18 Warfarin Sodium 5 mg PO DAILY #7 tablet 08/16/18 Nicotine [Nicoderm 14 mg/24 Hr Transdermal Patch] 1 patch TD DAILY 09/28/18 Nifedipine [Nifedipine ER] 60 mg PO DAILY 09/28/18 History of Present Illness History of Present Illness: KRISTY CANTU is a 63 year old male with a past medical history significant for COPD, systolic CHF, ESRD on dialysis, noncompliance with dialysis schedule, HIV, substance abuse with continuous use, anemia of chronic disease, hypertension, hyperlipidemia, and multiple PEs/DVTs on chronic warfarin who presents to the emergency department today with a complaint of sudden onset shortness of breath upon waking this morning with intermittent productive cough over the last several days. Patient denies fever, chills, body aches, rhinorrhea, sore throat or other upper respiratory symptoms. He does report having missed his dialysis on Friday and Friday as well as having missed multiple doses of his antihypertensive medications. He also endorses recent cocaine use. He further denies chest pain, palpitations, strokelike symptoms. On EMSs arrival, patient was found to be hypoxic to 81% on room air. He was administered breathing treatments, magnesium, and placed on CPAP. Evaluation in the emergency department is unremarkable other than his chronic anemia (hemoglobin 12.3), subtherapeutic INR (usual for patient who is persistently noncompliant with medications), known CKD but normal potassium (K4.0), troponin elevated to 0.151 (likely incidental finding as the patient has chronically elevated troponins in the setting of CHF and CKD with noncompliance; patient denies active chest pain, did recently use cocaine), unremarkable urinalysis, and UDS positive for cocaine. The patient is referred to the hospitalist service for admission and management of the above stated complaints and findings. Hospital Course Hospital Course: He got fluid overloaded because he stopped taking his antihypertensives, he missed 2 dialysis treatments, and did some coke. We got his blood pressure under control and got his fluid off through dialysis. We got him back on his medications I have advised him to quit using cocaine and other drugs and to follow-up with his surplus property disposal agent. His labs and examination were reassuring and he was discharged in good condition. Physical Exam Vital Signs: Temp Pulse Resp BP Pulse Ox 97.7 F 93 16 170/92 H 94 10/01/18 10:54 10/01/18 10:54 10/01/18 10:54 10/01/18 10:54 10/01/18 10:54 Intake & Output 09/30/18 10/01/18 10/02/18 06:59 06:59 06:59 Intake Total 1622 947 Output Total 4122 4748 Balance -4990 -2960 Weight 73.5 kg 70.9 kg General appearance: PRESENT: no acute distress, well-developed, well-nourished Head exam: PRESENT: atraumatic, normocephalic Respiratory exam: PRESENT: clear to auscultation ramila. ABSENT: rales, rhonchi, wheezes Cardiovascular exam: PRESENT: RRR. ABSENT: diastolic murmur, rubs, systolic murmur GI/Abdominal exam: PRESENT: normal bowel sounds, soft. ABSENT: distended, guarding, mass, organolmegaly, rebound, tenderness Rectal exam: PRESENT: deferred Extremities exam: PRESENT: other - Bilateral amputee. Neurological exam: PRESENT: alert, awake, oriented to person, oriented to place, oriented to time, oriented to situation, CN II-XII grossly intact. ABSENT: motor sensory deficit Psychiatric exam: PRESENT: appropriate affect, normal mood. ABSENT: homicidal ideation, suicidal ideation Results Laboratory Results: 09/30/18 03:56 09/30/18 03:56 09/29/18 15:40 Sputum Gram Stain - Final 09/29/18 15:40 Sputum Sputum Culture - Final NORMAL FADI 09/28/18 09/28/18 09/28/18 10:00 10:00 16:40 Creatine Kinase 281 H CK-MB (CK-2) 3.16 Troponin I 0.151 0.214 09/28/18 09/28/18 09/29/18 20:18 20:18 02:07 Creatine Kinase 281 H 238 H CK-MB (CK-2) 4.78 H Troponin I 0.216 09/29/18 09/29/18 09/29/18 02:07 08:46 08:46 Creatine Kinase 229 H CK-MB (CK-2) 4.60 H 4.04 Troponin I 0.241 0.252 09/30/18 14:18 Creatine Kinase CK-MB (CK-2) Troponin I 0.166 Impressions: Chest X-Ray 09/30/18 00:00 IMPRESSION: SLIGHT IMPROVEMENT IN THE MILD BASILAR ATELECTASIS. Qualifiers - * PATIENT BEING DISCHARGED WITH ANY OF THE FOLLOWING DIAGNOSIS: Heart Failure HF Pt being discharged on ACEI for LVEF less than 40%?: No Reason(s) for not prescribing ACEI:: Medical Contraindication HF Pt being discharged on ARBS for LVEF less than 40%?: No Reason(s) for not prescribing ARBS:: Medical Contraindication HF Pt with Afib discharged with Warfarin?: No Reason(s) for not prescribing Warfarin:: Not indicated HF Pt discharged on evidence-based Beta Johanna:: Yes
[2018-10-01] MEDS ORDERED: FAMOTIDINE 20 MG TABLET PO SCH (22:00)
[2018-10-04] MEDS ORDERED: CLONIDINE 0.3 MG/24 HR PATCH.TDWK TD SCH (10:00)
== END 2018-10-01 11:51 | disposition home or self-care (01) ==
LOC: ER 09:49 → EH 15:35 → 4N 18:42 → 3N 21:56
PROVIDERS: ADMIT Internal Medicine; ATTEND Internal Medicine
PROC: 5A1D70Z Performance of Urinary Filtration, Intermittent, Less than 6 Hours Per Day (ICD-10-PCS; principal; 2018-09-29)
DX: J96.21 Acute and chronic respiratory failure with hypoxia (principal); I13.2 Hypertensive heart and chronic kidney disease with heart failure and with stage 5 chronic kidney disease, or end stage renal disease; I50.43 Acute on chronic combined systolic (congestive) and diastolic (congestive) heart failure; I16.0 Hypertensive urgency; N18.6 End stage renal disease; D63.1 Anemia in chronic kidney disease; E11.22 Type 2 diabetes mellitus with diabetic chronic kidney disease; B20 Human immunodeficiency virus [HIV] disease; J44.9 Chronic obstructive pulmonary disease, unspecified; E11.51 Type 2 diabetes mellitus with diabetic peripheral angiopathy without gangrene; F14.10 Cocaine abuse, uncomplicated; E87.2 Acidosis; E83.51 Hypocalcemia; R79.89 Other specified abnormal findings of blood chemistry; R07.89 Other chest pain; R11.0 Nausea; F17.210 Nicotine dependence, cigarettes, uncomplicated; I25.2 Old myocardial infarction; Z99.2 Dependence on renal dialysis; Z91.15 Patient's noncompliance with renal dialysis; Z86.711 Personal history of pulmonary embolism; Z86.718 Personal history of other venous thrombosis and embolism; Z60.2 Problems related to living alone; Z79.899 Other long term (current) drug therapy; Z79.02 Long term (current) use of antithrombotics/antiplatelets; Z91.14 Patient's other noncompliance with medication regimen; Z89.511 Acquired absence of right leg below knee; Z89.612 Acquired absence of left leg above knee; Z84.1 Family history of disorders of kidney and ureter; Z82.49 Family history of ischemic heart disease and other diseases of the circulatory system
CPT/HCPCS: 93005 ×3; 94640 ×5; 99291; 96374; 36415 ×4; 87040; 87070; 87205; 82553 ×2; 82550 ×2; 83735; 85025 ×2; 85027; 85610 ×4; 82272; 80048 ×2; 80053; 81001; 84484 ×3; 80307; 82803; 83605; 71045 ×3; 93010 ×3; 94660 ×2; G0378 ×4; A9270 ×35; J0610 ×2; J3360 ×2; J3010; J1940; J3490 ×5; G0257; J7620

== ENCOUNTER 2018-11-04 02:47 | Emergency (ER) | payer MEDICARE, MEDICAID ==
--- NOTE | 2018-11-04 03:06 | ER Document Report ---
ED General - General Stated Complaint: TROUBLE BREATHING Time Seen by Provider: 11/04/18 02:58 Primary Care Provider: MATHIEU MACIAS FNP [Primary Care Provider] - Follow up as needed Notes: Patient is a 63-year-old male presents with complaint of sudden onset of difficulty breathing and some chest pain. She has had this happen before in the past. He has a history of hypertension and pulmonary edema. He also has history of cocaine use. He denies using any cocaine recently. He says once paramedics placed BiPAP on him given 1 single nitro his pain went away and his breathing is much improved. He is on dialysis. He gets dialysis Friday. He is due for dialysis tomorrow at noon. He did have dialysis Friday and says it was normal without any complications. Denies any recent fevers or infections. Says he did have an [place] back in July however he did not have a heart cath. He is followed by Dr. Storm. TRAVEL OUTSIDE OF THE [place] IN LAST 30 DAYS: No - Related Data Allergies/Adverse Reactions: calcitriol Allergy (Verified 08/31/18 14:27) itching Past Medical History - Social History Smoking Status: Unknown if Ever Smoked Frequency of alcohol use: None Drug Abuse: None Family History: CAD, CVA, DM, Hyperlipidemia, Hypertension, Malignancy - Past Medical History Cardiac Medical History: Reports: Hx Congestive Heart Failure - EF is 40%, with moderate diastolic dysfunction, Hx DVT, Hx Heart Attack, Hx Hypercholesterolemia, Hx Hypertension, Hx Peripheral Vascular Disease, Hx Pulmonary Embolism Pulmonary Medical History: Reports: Hx Bronchitis, Hx COPD, Hx Pneumonia, Hx Respiratory Failure Denies: Hx Asthma Neurological Medical History: Denies: Hx Migraine, Hx Seizures Endocrine Medical History: Reports: Hx Diabetes Mellitus Type 2 - insulin dependent. Denies: Hx Hyperthyroidism, Hx Hypothyroidism. Comment Only: Hx Diabetes Mellitus Type 1 - 1.5 Renal/ Medical History: Reports: Hx End Stage Renal Disease - Dialysis MWF, Hx Hemodialysis, Hx Peritoneal Dialysis, Hx Renal Insufficiency GI Medical History: Reports: Hx Gastroesophageal Reflux Disease. Denies: Hx Crohn's Disease, Hx Ulcerative Colitis Musculoskeletal Medical History: Reports Hx Arthritis, Denies Hx Fibromyalgia, 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, Reports Hx Musculoskeletal Trauma Skin Medical History: Denies Hx Eczema, Denies Hx Psoriasis Psychiatric Medical History: Reports: Hx Depression Traumatic Medical History: Denies: Hx Traumatic Brain Injury Infectious Medical History: Reports: Hx HIV Past Surgical History: Reports: Hx Orthopedic Surgery - bilateral amputation, R BKA, L AKA, Hx Vascular Surgery - left arm clot removed, IVC filter, thrombectomy 05/18/2018 left arm, Other - Endoscopy; Vascular surgery. - Immunizations Immunizations up to date: Yes Hx Diphtheria, Pertussis, Tetanus Vaccination: Yes Hx Pneumococcal Vaccination: 07/21/10 Review of Systems - Review of Systems Notes: My Normal Review Basic REVIEW OF SYSTEMS: CONSTITUTIONAL : Denies fever, chills, or sweats. Denies recent illness. CARDIOVASCULAR: had Chest pain RESPIRATORY: Difficulty breathing GASTROINTESTINAL: Denies abdominal pain. Denies nausea, vomiting, or diarrhea. GENITOURINARY: Denies difficulty urinating, painful urination, burning, frequency, or blood in urine. MUSCULOSKELETAL: Denies neck or back pain or joint pain or swelling. SKIN: Denies rash or skin lesions. NEUROLOGICAL: Denies altered mental status or loss of consciousness. Denies headache. Denies weakness or paralysis or loss of use of either side. Denies problems with gait or speech. Denies sensory or motor loss. ALL OTHER SYSTEMS REVIEWED AND NEGATIVE. Physical Exam - Vital signs Vitals: Resp 11/04/18 02:50 - Notes Notes: General Appearance: Well nourished, alert, cooperative, no acute distress, no obvious discomfort. Well-appearing on BiPAP Vitals: reviewed, See vital signs table. Head: no swelling or tenderness to the head Eyes: PERRL, EOMI, Conjuctiva clear Mouth: No decreasd moisture Lungs: No wheezing, No rales, No rhonci, No accessory muscle use, good air exchange bilaterally. Heart: Normal rate, Regular rythm, No murmur, no rub Abdomen: Normal BS, soft, No rigidity, No abdominal tenderness, No guarding, no rebound, no abdominal masses, no organomegaly Extremities: good pulses in all extremities, bilateral lower extremity amputation. Skin: warm, dry, appropriate color, no rash Neuro: speech clear, oriented x 3, normal affect, responds appropriately to questions. Course - Re-evaluation Re-evalutation: 11/04/18 04:23 Reevaluation patient continues to do well. I did take the BiPAP off from as his breathing is improved and he looks well. I will give him a trial of BiPAP to see how he does. His troponin did come back elevated. It is actually elevated to where he normally is based on his most recent admission and troponins. He is to be chest pain-free and continues to feel improved. 11/04/18 05:32 Evaluation patient continues to do well. He has been off oxygen now for over an hour. His O2 saturation is remained 95-97%. He has no increased work of breathing. Lung fisher are clear except for some very mild rales in the bases which is to be expected being that he is due for dialysis this coming morning. H is troponin again is improved in comparison to his last admission and is at what appears to be his baseline. He is not had any chest pain since he has been here. The only chest pain he had was immediately relieved with one nitro in the BiPAP. Since then his breathing has been well under control. As reviewing his records and he has been here several times for similar findings. He now does admit to me that he did do cocaine Friday night. He says he does occasionally do cocaine still and is trying to get away from it. When paramedics first picked him up he was significantly hypertensive. This is also greatly improved. I suspect he probably had hypertensive crisis which could be related to recent cocaine use which probably causes chest pain or difficulty breathing. Being the patient continues to not have any recurrent chest pain and he continues not have any recurrent difficulty breathing and looks well on room air feel that he is safe to be discharged home today can get his dialysis this morning. We will get him transport home. Strongly encouraged him return to ER immediately if he has recurrent chest pain, recurrent difficulty breathing, any fevers, or if he feels unwell. Patient agrees with plan will be discharged home. Dictation of this chart was performed using voice recognition software; therefore, there may be some unintended grammatical errors. - Vital Signs Vital signs: Temp Pulse Resp BP Pulse Ox 11/04/18 02:50 - Laboratory Result Diagrams: 11/04/18 03:04 11/04/18 03:04 Laboratory results interpreted by me: 11/04/18 11/04/18 03:04 03:04 RBC 3.84 L Hgb 12.0 L Hct 35.6 L RDW 14.5 H Eosinophils % 7.2 H Chloride 108 H Carbon Dioxide 21 L BUN 54 H Creatinine 7.18 H Est GFR ( Amer) 9 L Est GFR (Non-Af Amer) 8 L Calcium 7.2 L Direct Bilirubin 0.5 H - EKG Interpretation by Me Additional EKG results interpreted by me: 11/04/18 03:06 EKG is reviewed and interpreted by me. EKG shows sinus rhythm with a rate of [address] segment elevation or depression. No ischemic T wave inversions. MO interval, QRS duration are within normal range. QT interval is prolonged. Old EKG for comparison is from September 30, 2018. Discharge - Discharge Clinical Impression: ESRD (end stage renal disease) Chest pain Qualifiers: Chest pain type: unspecified Qualified Code(s): R07.9 - Chest pain, unspecified Dyspnea Qualifiers: Dyspnea type: shortness of breath Qualified Code(s): R06.02 - Shortness of breath; R06.00 - Dyspnea, unspecified; R06.01 - Orthopnea Condition: Good Disposition: HOME, SELF-CARE Additional Instructions: Please go to dialysis this morning. Do not miss dialysis. please have a low t hreshold to return to the ER if you have recurrent chest pain, recurrent difficulty breathing, or if you feel unwell in any way. Please continue to take your medications as prescribed. Referrals: MATHIEU MACIAS FNP [Primary Care Provider] - Follow up tomorrow
[2018-11-04 03:13] LABS: ABSOLUTE EOSINOPHILS # (AUTO) 0.6 10^3/uL (0.0-0.6); ABSOLUTE LYMPHOCYTES (AUTO) 2.6 10^3/uL (0.5-4.7); ABSOLUTE MONOCYTES (AUTO) 0.7 10^3/uL (0.1-1.4); ABSOLUTE NEUT (AUTO) 3.9 10^3/uL (1.7-8.2); BASOPHILS % (AUTO) 0.4 % (0-2); EOSINOPHILS % (AUTO) 7.2 % (0-6); HEMATOCRIT 35.6 % (37.9-51.0); MEAN CORPUSCULAR HEMOGLOBIN 31.4 pg (27.0-33.4); MEAN CORPUSCULAR HGB CONC 33.9 g/dL (32.0-36.0); MEAN CORPUSCULAR VOLUME 93 fl (80-97); PLATELET COUNT 193 10^3/uL (150-450); RED BLOOD COUNT 3.84 10^6/uL (4.35-5.55); RED CELL DISTRIBUTION WIDTH 14.5 % (11.5-14.0); SEGMENTED NEUTROPHILS % (AUTO) 50.4 % (42-78); TOTAL CELLS COUNTED % (AUTO) 100 %; WHITE BLOOD COUNT 7.8 10^3/uL (4.0-10.5)
[2018-11-04 03:25] LABS: ALANINE AMINOTRANSFERASE 35 U/L (21-72); ALKALINE PHOSPHATASE 80 U/L (38-126); ANION GAP 12 (5-19); ASPARTATE AMINO TRANSFERASE 47 U/L (17-59); BILIRUBIN,DIRECT 0.5 mg/dL (0.0-0.4); BILIRUBIN,TOTAL 0.6 mg/dL (0.2-1.3); BLOOD UREA NITROGEN 54 mg/dL (7-20); CALCIUM 7.2 mg/dL (8.4-10.2); CARBON DIOXIDE 21 mmol/L (22-30); CHLORIDE 108 mmol/L (98-107); GLUCOSE 100 mg/dL (75-110); POTASSIUM 4.7 mmol/L (3.6-5.0); SODIUM 141.3 mmol/L (137-145); TOTAL PROTEIN 7.2 g/dL (6.3-8.2)
--- NOTE | 2018-11-04 03:44 | RADIOLOGY REPORT (SQ) ---
EXAM DESCRIPTION: XR CHEST 1 VIEW COMPLETED DATE/TME: 11/04/2018 03:04 CLINICAL HISTORY: 63 years, Male, dyspnea COMPARISON: 09/30/2018 chest x-ray NUMBER OF VIEWS: 1 TECHNIQUE: Portable chest LIMITATIONS: None. FINDINGS: Cardiomegaly. Osteopenia. Mild interstitial edema. Tiny bibasilar effusions. No pneumothorax. Surgical clips right axilla IMPRESSION: Cardiomegaly with mild interstitial edema. Tiny bibasilar effusions copyright 2010 [employer]- All Rights Reserved
[2018-11-04 08:25] VITALS: BP 152/91
--- NOTE | 2018-11-04 08:31 | EKG REPORT ---
SEVERITY:- ABNORMAL ECG - SINUS RHYTHM PROBABLE LEFT ATRIAL ABNORMALITY LEFT AXIS DEVIATION LEFT VENTRICULAR HYPERTROPHY PROLONGED QT INTERVAL : Confirmed by: Annita Coker MD 04-Nov-2018 08:29:58
== END 2018-11-04 08:35 | disposition home or self-care (01) ==
LOC: ER 02:47
DX: R06.02 Shortness of breath (principal); R06.00 Dyspnea, unspecified; R06.01 Orthopnea; E11.22 Type 2 diabetes mellitus with diabetic chronic kidney disease; I13.2 Hypertensive heart and chronic kidney disease with heart failure and with stage 5 chronic kidney disease, or end stage renal disease; I50.9 Heart failure, unspecified; N18.6 End stage renal disease; J44.9 Chronic obstructive pulmonary disease, unspecified; Z99.2 Dependence on renal dialysis; Z79.4 Long term (current) use of insulin; Z86.718 Personal history of other venous thrombosis and embolism; I25.2 Old myocardial infarction; Z89.512 Acquired absence of left leg below knee; Z89.511 Acquired absence of right leg below knee
CPT/HCPCS: 36415; 71045; 80053; 84484; 85025; 93005; 93010; 94660; 99285

== ENCOUNTER 2018-11-20 07:53 | Emergency (ER) | payer MEDICARE, MEDICAID ==
[2018-11-20] MEDS ORDERED: IPRATROPIUM/ALBUTEROL 0.5-2.5 MG/3 ML AMPUL NEB ONE (08:29)
[2018-11-20 08:31] LABS: ABSOLUTE BASOPHILS # (AUTO) 0.1 10^3/uL (0.0-0.2); ABSOLUTE EOSINOPHILS # (AUTO) 0.3 10^3/uL (0.0-0.6); ABSOLUTE MONOCYTES (AUTO) 0.5 10^3/uL (0.1-1.4); ABSOLUTE NEUT (AUTO) 3.5 10^3/uL (1.7-8.2); BASOPHILS % (AUTO) 0.7 % (0-2); EOSINOPHILS % (AUTO) 3.7 % (0-6); HEMATOCRIT 36.8 % (37.9-51.0); HEMOGLOBIN 12.2 g/dL (13.5-17.0); LYMPHOCYTES % (AUTO) 41.6 % (13-45); MEAN CORPUSCULAR HEMOGLOBIN 30.5 pg (27.0-33.4); MEAN CORPUSCULAR HGB CONC 33.3 g/dL (32.0-36.0); MEAN CORPUSCULAR VOLUME 92 fl (80-97); MONOCYTES % (AUTO) 6.4 % (3-13); PLATELET COUNT 205 10^3/uL (150-450); RED BLOOD COUNT 4.01 10^6/uL (4.35-5.55); RED CELL DISTRIBUTION WIDTH 14.3 % (11.5-14.0); SEGMENTED NEUTROPHILS % (AUTO) 47.6 % (42-78); TOTAL CELLS COUNTED % (AUTO) 100 %; WHITE BLOOD COUNT 7.3 10^3/uL (4.0-10.5)
[2018-11-20] MEDS ORDERED: NITROGLYCERIN 2% OINTMENT 1 GM PACKET TP ONE (08:39)
--- NOTE | 2018-11-20 08:46 | ER Document Report ---
ED General - General Chief Complaint: Respiratory Distress Stated Complaint: DIFFICULTY BREATHING Time Seen by Provider: 11/20/18 08:19 Primary Care Provider: MATHIEU MACIAS FNP [NO LOCAL MD] - Follow up as needed Notes: 63 year old male with ESRD (MWF dialysis) HIV, HTN, CHF, and a history of cocaine abuse, DVTs and PE presents to the emergency department via EMS complaining of shortness of breath and chest pain onset this morning. Patient says he was going to go to dialysis when he started having the symptoms and called the ambulance instead. Patient is having difficulty breathing and is leaning forward in a position of comfort. Patient complains of chest pain over his left chest that is pressure-like. TRAVEL OUTSIDE OF THE [place] IN LAST 30 DAYS: No - Related Data Allergies/Adverse Reactions: calcitriol Allergy (Verified 08/31/18 14:27) itching Past Medical History - Social History Smoking Status: Unknown if Ever Smoked Family History: CAD, CVA, DM, Hyperlipidemia, Hypertension, Malignancy Patient has suicidal ideation: No Patient has homicidal ideation: No - Past Medical History Cardiac Medical History: Reports: Hx Congestive Heart Failure - EF is 40%, with moderate diastolic dysfunction, Hx DVT, Hx Heart Attack, Hx Hypercholesterolemia, Hx Hypertension, Hx Peripheral Vascular Disease, Hx Pulmonary Embolism Pulmonary Medical History: Reports: Hx Bronchitis, Hx COPD, Hx Pneumonia, Hx Respiratory Failure Denies: Hx Asthma Neurological Medical History: Denies: Hx Migraine, Hx Seizures Endocrine Medical History: Reports: Hx Diabetes Mellitus Type 2 - insulin dep endent. Denies: Hx Hyperthyroidism, Hx Hypothyroidism. Comment Only: Hx Diabetes Mellitus Type 1 - 1.5 Renal/ Medical History: Reports: Hx End Stage Renal Disease - Dialysis MWF, Hx Hemodialysis, Hx Renal Insufficiency. Denies: Hx Peritoneal Dialysis GI Medical History: Reports: Hx Gastroesophageal Reflux Disease. Denies: Hx Crohn's Disease, Hx Ulcerative Colitis Musculoskeletal Medical History: Reports Hx Arthritis, Denies Hx Fibromyalgia, 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, Reports Hx Musculos keletal Trauma Skin Medical History: Denies Hx Eczema, Denies Hx Psoriasis Psychiatric Medical History: Reports: Hx Depression Traumatic Medical History: Denies: Hx Traumatic Brain Injury Infectious Medical History: Reports: Hx HIV Past Surgical History: Reports: Hx Orthopedic Surgery - bilateral amputation, R BKA, L AKA, Hx Vascular Surgery - left arm clot removed, IVC filter, thrombectomy 05/18/2018 left arm, Other - Endoscopy; Vascular surgery. - Immunizations Immunizations up to date: Yes Hx Diphtheria, Pertussis, Tetanus Vaccination: Yes Hx Pneumococcal Vaccination: 07/21/10 Review of Systems - Review of Systems Constitutional: See HPI EENT: No symptoms reported Cardiovascular: See HPI Respiratory: See HPI Gastrointestinal: See HPI Genitourinary: See HPI Male Genitourinary: No symptoms reported Musculoskeletal: No symptoms reported Skin: No symptoms reported Hematologic/Lymphatic: No symptoms reported Neurological/Psychological: No symptoms reported Physical Exam - Vital signs Vitals: Resp Pulse Ox 17 93 11/20/18 08:03 11/20/18 08:03 - Notes Notes: PHYSICAL EXAMINATION: Reviewed vital signs and charting by RN GENERAL: Alert, interacts well. Mildly acute distress. HEAD: Normocephalic, atraumatic. EYES: Pupils equal and round. Extraocular movements intact. ENT: Oral mucosa moist, tongue midline. NECK: Full range of motion. Supple. Trachea midline. LUNGS: Patient sitting in tripod position with pursed lips, 2 L oxygen, and expiratory wheezes all fisher HEART: Regular rate and rhythm. No murmur ABDOMEN: soft, non-tender. Non-distended. Bowel sounds present. no McBurney's point tenderness, no Villalta sign. EXTREMITIES: Bilateral lower extremity amputations NEUROLOGIC: Oriented and appropriate. Normal speech. PSYCH: Normal affect, normal mood. SKIN: Warm, dry, normal turgor. No rashes or lesions noted. Course - Re-evaluation Re-evalutation: 11/20/18 08:46 Patient in mild distress. Went with Dr. Radford and used ultrasound to assess fluid status of lungs, B-lines seen in bilateral lung fisher. Will initiate BiPAP and Nitropaste. Will call Dr. Renteria, [facility] specialist on-call once work-up is complete to plan for dialysis. 11/20/18 11:[address] Renteria, and after the work-up, deemed that hE will not require admission but does need dialysis. I called [facility] and they said that they would see him this afternoon for his normally scheduled time. I arranged transport with [facility] and they will be here at 1215 to take him over. Patient has been feeling much better on the BiPAP and I am going to take him off of BiPAP now to see how he does over the next 30 minutes prior to going to dialysis treatment. - Vital Signs Vital signs: Temp Pulse Resp BP Pulse Ox 12 152/86 H 93 11/20/18 12:31 11/20/18 12:31 11/20/18 12:31 - Laboratory Result Diagrams: 11/20/18 08:08 11/20/18 08:08 Laboratory results interpreted by me: 11/20/18 11/20/18 08:08 08:08 RBC 4.01 L Hgb 12.2 L Hct 36.8 L RDW 14.3 H Carbon Dioxide 20 L BUN 77 H Creatinine 11.38 H Est GFR ( Amer) 5 L Est GFR (Non-Af Amer) 5 L Glucose 120 H Calcium 6.3 L* AST 140 H ALT 110 H Discharge - Discharge Clinical Impression: Shortness of breath Fluid overload Qualifiers: Hypervolemia type: unspecified Qualified Code(s): E87.70 - Fluid overload, unspecified Condition: Good Disposition: HOME, SELF-CARE Additional Instructions: You are seen the emergency department this morning for acute shortness of breath secondary to volume overload due to missing her dialysis. It is important that you get regular dialysis 3 days a week. We have stabilized you and are giving her right ear dialysis treatment. If you decompensate, develop acute shortness of breath, have severe chest pain, passout, or have any other concerns please immediately return to the emergency department in the future. Referrals: MATHIEU MACIAS FNP [NO LOCAL MD] - Follow up as needed
[2018-11-20 08:51] LABS: ALANINE AMINOTRANSFERASE 110 U/L (21-72); ALBUMIN 4.1 g/dL (3.5-5.0); ALKALINE PHOSPHATASE 102 U/L (38-126); ANION GAP 18 (5-19); ASPARTATE AMINO TRANSFERASE 140 U/L (17-59); BILIRUBIN,DIRECT 0.4 mg/dL (0.0-0.4); BILIRUBIN,TOTAL 0.4 mg/dL (0.2-1.3); BLOOD UREA NITROGEN 77 mg/dL (7-20); CARBON DIOXIDE 20 mmol/L (22-30); CHLORIDE 106 mmol/L (98-107); GLUCOSE 120 mg/dL (75-110); SODIUM 143.7 mmol/L (137-145); TOTAL PROTEIN 7.3 g/dL (6.3-8.2)
[2018-11-20 09:05] LABS: CALCIUM 6.3 mg/dL (8.4-10.2)
[2018-11-20] MEDS ORDERED: CALCIUM GLUCONATE 1000 MG/10 ML INJ IV ONE (09:12)
--- NOTE | 2018-11-20 10:14 | RADIOLOGY REPORT (SQ) ---
EXAM DESCRIPTION: CHEST SINGLE VIEW COMPLETED DATE/TIME: 11/20/2018 10:05 am REASON FOR STUDY: cp COMPARISON: 11/04/2018 EXAM PARAMETERS: NUMBER OF VIEWS: One view. TECHNIQUE: Single frontal radiographic view of the chest acquired. RADIATION DOSE: NA LIMITATIONS: None. FINDINGS: LUNGS AND PLEURA: No opacities, masses or pneumothorax. No pleural effusion. MEDIASTINUM AND HILAR STRUCTURES: No masses. Contour normal. HEART AND VASCULAR STRUCTURES: Cardiomegaly. BONES: No acute findings. HARDWARE: None in the chest. OTHER: No other significant finding. IMPRESSION: Cardiomegaly without acute abnormality of the lungs in AP projection. TECHNICAL DOCUMENTATION: JOB ID: [id number] [employer]- All Rights Reserved Reading location - IP/workstation name: [email or web address]
[2018-11-20 12:33] VITALS: BP 152/86
--- NOTE | 2018-11-21 11:13 | EKG REPORT ---
SEVERITY:- ABNORMAL ECG - SINUS TACHYCARDIA VENTRICULAR PREMATURE COMPLEX RIGHT ATRIAL ABNORMALITY NONSPECIFIC INTRAVENTRICULAR CONDUCTION DELAY LVH WITH SECONDARY REPOLARIZATION ABNORMALITY : Confirmed by: Beulah Storm 21-Nov-2018 11:12:52
== END 2018-11-20 12:45 | disposition home or self-care (01) ==
LOC: ER 07:53
DX: R06.02 Shortness of breath (principal); E87.70 Fluid overload, unspecified; I13.2 Hypertensive heart and chronic kidney disease with heart failure and with stage 5 chronic kidney disease, or end stage renal disease; E11.22 Type 2 diabetes mellitus with diabetic chronic kidney disease; N18.6 End stage renal disease; I50.9 Heart failure, unspecified; Z99.2 Dependence on renal dialysis; B20 Human immunodeficiency virus [HIV] disease; Z89.612 Acquired absence of left leg above knee; Z89.511 Acquired absence of right leg below knee; Z86.718 Personal history of other venous thrombosis and embolism; Z86.711 Personal history of pulmonary embolism
CPT/HCPCS: 93005; 94640; 99285; 96365; 96366; 36415; 85025; 80053; 84484; 71045; 93010; A9270 ×2; J0610; J7620

== ENCOUNTER 2018-11-29 03:44 | Emergency (ER) | payer MEDICARE, MEDICAID ==
--- NOTE | 2018-11-29 04:05 | ER Document Report ---
Addendum entered and electronically signed by CATRINA ESPOSITO PA 11/29/18 20:07: Discharge - Discharge Clinical Impression: Cough Chest pain Qualifiers: Chest pain type: unspecified Qualified Code(s): R07.9 - Chest pain, unspecified Condition: Stable Disposition: HOME, SELF-CARE Additional Instructions: Your evaluation does not show any significant change at this time. Follow-up with Dr. Storm tomorrow for additional evaluation and management. Return if you worsen including returned pain, worse pain, difficulty breathing, fever, or any other concerning symptoms. Referrals: YOSHI JEAN-BAPTISTE NP [Primary Care Provider] - Follow up as needed Original Note: ED General - General TRAVEL OUTSIDE OF THE [place] IN LAST 30 DAYS: No <CATRINA ESPOSITO - Last Filed: 11/29/18 08:08> <KAYLAH BHAGAT - Last Filed: 11/29/18 09:51> - General Chief Complaint: Shortness Of Breath Stated Complaint: CHEST PAIN Time Seen by Provider: 11/29/18 03:55 Primary Care Provider: YOSHI JEAN-BAPTISTE NP [Primary Care Provider] - Follow up as needed Notes: Patient is a 63-year-old male that comes emergency department by EMS for chief complaint of waking up tonight with pain in his chest, he states he has a cough with some sputum production, he states that he felt a little bit short of breath as well. He states now he only has chest pain when he coughs. He denies fever/chills, nausea/vomiting, abdominal pain, dizziness. Patient was given 324 mg of aspirin by EMS and also two sublingual nitroglycerin. Past medical history includes hypertension, ESRD on dialysis Friday (last dialysis was on Friday), PE, COPD, IDDM, and chronic cocaine abuse. He also smokes. He states he believes he had a heart attack in the past but he has never had stent or bypass. He follows with air cargo specialist Dr. Storm, director clinical operations Dr. Lowe. (CATRINA ESPOSITO) - Related Data Allergies/Adverse Reactions: calcitriol Allergy (Verified 08/31/18 14:27) itching Past Medical History - General Information source: Patient - Social History Smoking Status: Current Every Day Smoker Smoking Education Provided: Yes - <3 min Frequency of alcohol use: None Drug Abuse: Cocaine Lives with: Alone Family History: CAD, CVA, DM, Hyperlipidemia, Hypertension, Malignancy - Past Medical History Cardiac Medical History: Reports: Hx Congestive Heart Failure - EF is 40%, with moderate diastolic dysfunction, Hx DVT, Hx Heart Attack, Hx Hypercholesterolemia, Hx Hypertension, Hx Peripheral Vascular Disease, Hx Pulmonary Embolism Pulmonary Medical History: Reports: Hx Bronchitis, Hx COPD, Hx Pneumonia, Hx Respiratory Failure Denies: Hx Asthma Neurological Medical History: Denies: Hx Migraine, Hx Seizures Endocrine Medical History: Reports: Hx Diabetes Mellitus Type 2 - insulin dependent. Denies: Hx Hyperthyroidism, Hx Hypothyroidism. Comment Only: Hx Diabetes Mellitus Type 1 - 1.5 Renal/ Medical History: Reports: Hx End Stage Renal Disease - Dialysis MWF, Hx Hemodialysis, Hx Renal Insufficiency. Denies: Hx Peritoneal Dialysis GI Medical History: Reports: Hx Gastroesophageal Reflux Disease. Denies: Hx Crohn's Disease, Hx Ulcerative Colitis Musculoskeletal Medical History: Reports Hx Arthritis, Denies Hx Fibromyalgia, 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, Reports Hx Musculoskeletal Trauma Skin Medical History: Denies Hx Eczema, Denies Hx Psoriasis Psychiatric Medical History: Reports: Hx Depression Traumatic Medical History: Denies: Hx Traumatic Brain Injury Infectious Medical History: Reports: Hx HIV Past Surgical History: Reports: Hx Orthopedic Surgery - bilateral amputation, R BKA, L AKA, Hx Vascular Surgery - left arm clot removed, IVC filter, thrombe ctomy 05/18/2018 left arm, Other - Endoscopy; Vascular surgery. - Immunizations Immunizations up to date: Yes Hx Diphtheria, Pertussis, Tetanus Vaccination: Yes Hx Pneumococcal Vaccination: 07/21/10 <CATRINA ESPOSITO - Last Filed: 11/29/18 08:08> Review of Systems - Review of Systems Constitutional: No symptoms reported EENT: No symptoms reported Cardiovascular: See HPI Respiratory: See HPI Gastrointestinal: No symptoms reported Genitourinary: No symptoms reported Male Genitourinary: No symptoms reported Musculoskeletal: No symptoms reported Skin: No symptoms reported Hematologic/Lymphatic: No symptoms reported Neurological/Psychological: See HPI <CATRINA ESPOSITO - Last Filed: 11/29/18 08:08> Physical Exam <CATRINA ESPOSITO - Last Filed: 11/29/18 08:08> - Vital signs Vitals: Temp Pulse Resp BP Pulse Ox 98.3 F 102 H 19 180/105 H 99 11/29/18 03:48 11/29/18 03:48 11/29/18 03:48 11/29/18 03:48 11/29/18 03:48 - Notes Notes: GENERAL: Alert, interacts well. No acute distress. HEAD: Normocephalic, atraumatic. EYES: Pupils equal, round, and reactive to light. Extraocular movements intact. ENT: Oral mucosa moist, tongue midline. Oropharynx unremarkable. Airway patent. Nares patent, no nasal septal hematoma. NECK: Full range of motion. Supple. Trachea midline. LUNGS: Clear to auscultation bilaterally, no wheezes, rales, or rhonchi. No respiratory distress. HEART: Regular rate and rhythm. No murmur ABDOMEN: Soft, non-tender. Non-distended. Bowel sounds present in all 4 quadrants. GENITOURINARY: Deferred EXTREMITIES: Right BKA, left AKA BACK: no cervical, thoracic, lumbar midline tenderness. No saddle anesthesia, normal distal neurovascular exam. NEUROLOGICAL: Alert and oriented x3. Normal speech. [cranial nerves II through XII grossly intact]. PSYCH: Normal affect, normal mood. SKIN: Warm, dry, normal turgor. No rashes or lesions noted. (CATRINA ESPOSITO) Course - Laboratory Result Diagrams: 11/29/18 04:05 11/29/18 04:05 <CATRINA ESPOSITO - Last Filed: 11/29/18 08:08> - Laboratory Result Diagrams: 11/29/18 04:05 11/29/18 04:05 <KAYLAH BHAGAT - Last Filed: 11/29/18 09:51> - Re-evaluation Re-evalutation: On my evaluation patient is chest pain-free except for when he coughs. His lungs are clear, his physical examination is unremarkable. EKG without significant change from prior. Chest x-ray shows mild interstitial markings which are nonspecific. Patient does not have a fever, CBC does not show leukocytosis, chemistry at baseline. Troponin 0.136, this is actually better than prior, approximately baseline for patient as well. PT/INR shows that patient is not therapeutic with his reported Coumadin although this is also similar to prior. Patient sleeping on reevaluation. Discussed with patient. He is asymptomatic on reevaluation. Patient is here frequently for the same complaints, no significant change so far from prior. Plan is to repeat troponin, will attempt to contact patient's air cargo specialist Dr. Storm for additional recommendations, most likely patient will be going home. Patient states satisfaction agreement with plan. 11/29/18 08:06 L. Dexter ESTATE ADMINISTRATOR assuming care at this time, will follow troponin. (CATRINA ESPOSITO) 11/29/18 09:51 Repeat troponin is 0.127 which is down from previous. Patient continues to be c hest pain-free. Patient will be discharged home at this time. (KAYLAH BHAGAT) - Vital Signs Vital signs: Temp Pulse Resp BP Pulse Ox 98.3 F 102 H 18 183/106 H 98 11/29/18 03:48 11/29/18 03:48 11/29/18 08:10 11/29/18 08:10 11/29/18 08:10 - Laboratory Laboratory results interpreted by me: 11/29/18 11/29/18 04:05 04:05 RBC 3.86 L Hgb 11.9 L Hct 35.4 L BUN 43 H Creatinine 7.96 H Est GFR ( Amer) 8 L Est GFR (Non-Af Amer) 7 L Calcium 7.2 L - EKG Interpretation by Me Additional EKG results interpreted by me: 11/29/18 04:08 EKG shows sinus rhythm at a rate of 99, left axis deviation, no T wave inversions or ST segment changes in consecutive leads, no significant change from prior. Prolonged QT interval at 529, previous of 520. ND interval unremarkable. (CATRINA ESPOSITO) Discharge <CATRINA ESPOSITO - Last Filed: 11/29/18 08:08> <KAYLAH BHAGAT - Last Filed: 11/29/18 09:51> - Discharge Clinical Impression: Cough Chest pain Qualifiers: Chest pain type: unspecified Qualified Code(s): R07.9 - Chest pain, unspecified Condition: Stable Disposition: HOME, SELF-CARE Additional Instructions: Your evaluation does not show any significant change at this time. Follow-up with Dr. Storm tomorrow for additional evaluation and management. Return if you worsen including returned pain, worse pain, difficulty breathing, fever, or any other concerning symptoms. Referrals: YOSHI JEAN-BAPTISTE, [facility] RN [Primary Care Provider] - Follow up as needed
[2018-11-29] MEDS ORDERED: ACETAMINOPHEN 325 MG TABLET PO ONE (04:06)
[2018-11-29] MEDS ORDERED: ONDANSETRON HCL INJ/PF 4 MG/2 ML SDV IV ONE (04:06)
[2018-11-29 04:18] LABS: ABSOLUTE BASOPHILS # (AUTO) 0.1 10^3/uL (0.0-0.2); ABSOLUTE EOSINOPHILS # (AUTO) 0.2 10^3/uL (0.0-0.6); ABSOLUTE LYMPHOCYTES (AUTO) 2.6 10^3/uL (0.5-4.7); ABSOLUTE MONOCYTES (AUTO) 0.7 10^3/uL (0.1-1.4); ABSOLUTE NEUT (AUTO) 3.5 10^3/uL (1.7-8.2); BASOPHILS % (AUTO) 1.1 % (0-2); EOSINOPHILS % (AUTO) 2.8 % (0-6); HEMATOCRIT 35.4 % (37.9-51.0); HEMOGLOBIN 11.9 g/dL (13.5-17.0); LYMPHOCYTES % (AUTO) 37.2 % (13-45); MEAN CORPUSCULAR HEMOGLOBIN 30.7 pg (27.0-33.4); MEAN CORPUSCULAR HGB CONC 33.5 g/dL (32.0-36.0); MEAN CORPUSCULAR VOLUME 92 fl (80-97); MONOCYTES % (AUTO) 10.2 % (3-13); PLATELET COUNT 189 10^3/uL (150-450); RED BLOOD COUNT 3.86 10^6/uL (4.35-5.55); RED CELL DISTRIBUTION WIDTH 13.8 % (11.5-14.0); SEGMENTED NEUTROPHILS % (AUTO) 48.7 % (42-78); TOTAL CELLS COUNTED % (AUTO) 100 %; WHITE BLOOD COUNT 7.1 10^3/uL (4.0-10.5)
[2018-11-29 04:34] LABS: ALANINE AMINOTRANSFERASE 26 U/L (21-72); ALBUMIN 3.9 g/dL (3.5-5.0); ALKALINE PHOSPHATASE 84 U/L (38-126); ANION GAP 15 (5-19); ASPARTATE AMINO TRANSFERASE 25 U/L (17-59); BILIRUBIN,DIRECT 0.4 mg/dL (0.0-0.4); BILIRUBIN,TOTAL 0.4 mg/dL (0.2-1.3); BLOOD UREA NITROGEN 43 mg/dL (7-20); CALCIUM 7.2 mg/dL (8.4-10.2); CARBON DIOXIDE 22 mmol/L (22-30); CHLORIDE 106 mmol/L (98-107); GLUCOSE 100 mg/dL (75-110); POTASSIUM 3.8 mmol/L (3.6-5.0); TOTAL PROTEIN 6.9 g/dL (6.3-8.2)
--- NOTE | 2018-11-29 04:57 | RADIOLOGY REPORT (SQ) ---
EXAM DESCRIPTION: XR CHEST 1 VIEW COMPLETED DATE/TME: 11/29/2018 04:01 CLINICAL HISTORY: 63 years Male, cough, chest pain COMPARISON: November 20, 2018. September 29, 2018 NUMBER OF VIEWS/TECHNIQUE: 1/AP FINDINGS: Increased lung volume, mild interstitial markings, normal cardiac silhouette. No pneumothorax. Stable bony thorax. Right upper thoracic clips. IMPRESSION: Mild interstitial markings. Differential diagnosis includes pulmonary edema, atypical pneumonitis, and chronic interstitial lung disease.
[2018-11-29 05:02] LABS: INTERNATIONAL RATION (INR) 1.14; PROTHROMBIN TIME 15.2 SEC (11.4-15.4)
[2018-11-29 08:37] LABS: URINE AMPHETAMINES SCREEN NEGATIVE; URINE BARBITURATES SCREEN NEGATIVE; URINE BENZODIAZEPINES SCREEN NEGATIVE; URINE COCAINE SCREEN UNCONFIRMED POSITIVE; URINE MARIJUANA (THC) SCREEN NEGATIVE; URINE METHADONE SCREEN NEGATIVE; URINE PHENCYCLIDINE SCREEN NEGATIVE
--- NOTE | 2018-11-29 09:42 | EKG REPORT ---
SEVERITY:- ABNORMAL ECG - SINUS RHYTHM PROBABLE LEFT ATRIAL ABNORMALITY LEFT ANTERIOR FASCICULAR BLOCK LVH WITH SECONDARY REPOLARIZATION ABNORMALITY CONSIDER ANTERIOR INFARCT PROLONGED QT INTERVAL : Confirmed by: Annita Coker MD 29-Nov-2018 09:41:14
[2018-11-29 10:27] VITALS: BP 195/111
== END 2018-11-29 10:25 | disposition home or self-care (01) ==
LOC: ER 03:44
DX: R07.9 Chest pain, unspecified (principal); J44.9 Chronic obstructive pulmonary disease, unspecified; R05 Cough; R06.02 Shortness of breath; I12.0 Hypertensive chronic kidney disease with stage 5 chronic kidney disease or end stage renal disease; E11.22 Type 2 diabetes mellitus with diabetic chronic kidney disease; E11.51 Type 2 diabetes mellitus with diabetic peripheral angiopathy without gangrene; N18.6 End stage renal disease; Z99.2 Dependence on renal dialysis; Z79.4 Long term (current) use of insulin; Z87.01 Personal history of pneumonia (recurrent); F14.10 Cocaine abuse, uncomplicated; F17.200 Nicotine dependence, unspecified, uncomplicated; Z21 Asymptomatic human immunodeficiency virus [HIV] infection status; Z86.711 Personal history of pulmonary embolism; Z86.718 Personal history of other venous thrombosis and embolism; Z79.01 Long term (current) use of anticoagulants
CPT/HCPCS: 93005; 99285; 36415; 85025; 85610; 80053; 84484; 80307; 71045; 93010; A9270

== ENCOUNTER 2018-11-29 20:28 | Emergency (ER) | payer MEDICARE, MEDICAID ==
[2018-11-29] MEDS ORDERED: NITROGLYCERIN/D5W 50 MG/250 ML RTUINJ IV ONE (20:36)
[2018-11-29] MEDS: NITROGLYCERIN/D5W 50 MG/250 ML RTUINJ IV PRN (20:51)
[2018-11-29] MEDS ORDERED: FUROSEMIDE INJ/PF 40 MG/4 ML SDV IV ONE (20:54)
--- NOTE | 2018-11-29 21:00 | ER Document Report ---
ED General - General Stated Complaint: DIFFICULTY BREATHING Time Seen by Provider: 11/29/18 20:53 Primary Care Provider: YOSHI JEAN-BAPTISTE NP [Primary Care Provider] - Follow up as needed Cannot obtain history due to: Unstable vital signs Notes: Patient is a 63-year-old male with past medical history of CKD with dialysis dependence, CHF, cocaine abuse, presents in severe respiratory distress. Does arrive by EMS. Patient is not able to provide any meaningful history secondary to his degree of distress. He does report that his symptoms started several hours ago and have been worsening since that time. He denies ever having similar symptoms in the past. Due for dialysis on Friday. Denies recent cocaine use. TRAVEL OUTSIDE OF THE [place] IN LAST 30 DAYS: No - Related Data Allergies/Adverse Reactions: calcitriol Allergy (Verified 08/31/18 14:27) itching Past Medical History - General Information source: Patient - Social History Smoking Status: Current Every Day Smoker Frequency of alcohol use: None Drug Abuse: Cocaine Family History: CAD, CVA, DM, Hyperlipidemia, Hypertension, Malignancy - Past Medical History Cardiac Medical History: Reports: Hx Congestive Heart Failure - EF is 40%, with moderate diastolic dysfunction, Hx DVT, Hx Heart Attack, Hx Hypercholesterolemia, Hx Hypertension, Hx Peripheral Vascular Disease, Hx Pulmonary Embolism Pulmonary Medical History: Reports: Hx Bronchitis, Hx COPD, Hx Pneumonia, Hx Respiratory Failure Denies: Hx Asthma Neurological Medical History: Denies: Hx Migraine, Hx Seizures Endocrine Medical History: Reports: Hx Diabetes Mellitus Type 2 - insulin dependent. Denies: Hx Hyperthyroidism, Hx Hypothyroidism. Comment Only: Hx Diabetes Mellitus Type 1 - 1.5 Renal/ Medical History: Reports: Hx End Stage Renal Disease - Dialysis MWF, Hx Hemodialysis, Hx Renal Insufficiency. Denies: Hx Peritoneal Dialysis GI Medical History: Reports: Hx Gastroesophageal Reflux Disease. Denies: Hx Crohn's Disease, Hx Ulcerative Colitis Musculoskeletal Medical History: Reports Hx Arthritis, Denies Hx Fibromyalgia, 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, Reports Hx Musculoskeletal Trauma Skin Medical History: Denies Hx Eczema, Denies Hx Psoriasis Psychiatric Medical History: Reports: Hx Depression Traumatic Medical History: Denies: Hx Traumatic Brain Injury Infectious Medical History: Reports: Hx HIV Past Surgical History: Reports: Hx Orthopedic Surgery - bilateral amputation, R BKA, L AKA, Hx Vascular Surgery - left arm clot removed, IVC filter, thrombectomy 05/18/2018 left arm, Other - Endoscopy; Vascular surgery. - Immunizations Immunizations up to date: Yes Hx Diphtheria, Pertussis, Tetanus Vaccination: Yes Hx Pneumococcal Vaccination: 07/21/10 Review of Systems - Review of Systems Notes: Constitutional: Negative for fever. HENT: Negative for sore throat. Eyes: Negative for visual changes. Cardiovascular: Negative for chest pain. Respiratory: Positive for shortness of breath. Gastrointestinal: Negative for abdominal pain, vomiting or diarrhea. Genitourinary: Negative for dysuria. Musculoskeletal: Negative for back pain. Skin: Negative for rash. Neurological: Negative for headaches, weakness or numbness. 10 point ROS negative except as marked above and in HPI. Physical Exam - Vital signs Vitals: Pulse Ox 87 L 11/29/18 20:34 Interpretation: Hypertensive, Tachycardic, Hypoxic, Tachypneic Notes: PHYSICAL EXAMINATION: GENERAL: Extremely ill in appearance, diaphoretic, in severe distress HEAD: Atraumatic, normocephalic. EYES: Pupils equal round and reactive to light, extraocular movements intact, sclera anicteric, conjunctiva are normal. ENT: nares patent, oropharynx clear without exudates. Mildly dry mucous membranes. NECK: Normal range of motion, supple without lymphadenopathy LUNGS: Severe respiratory distress, rales in all lung with tachypnea rates ranging between 40 and 50 breaths/min. Retracting in the intercostal and supraclavicular spaces HEART: Regular tachycardia, unable to determine if there is a murmur secondary to adventitious lung sounds ABDOMEN: Soft, nontender, normoactive bowel sounds. No guarding, no rebound. No masses appreciated. EXTREMITIES: Normal range of motion, 2+ pitting edema in the bilateral lower extremities that is equal and symmetric NEUROLOGICAL: No focal neurological deficits. Moves all extremities spontaneou sly and on command. PSYCH: Highly anxious but appropriate to situation SKIN: Warm, diaphoretic Course - Re-evaluation Re-evalutation: 11/29/18 20:57 Documentation is delayed as I been at this patient's bedside continuously since his arrival. Patient arrives extremely ill in appearance, dripping sweat, unable to speak secondary to his labor of breathing, saturating 82% on room air. Patient was discharged from the emergency department roughly 12 hours ago, at that time had a elevated troponin but at his baseline, chronic kidney disease, chest x-ray did not show any acute infiltrates or evidence of pulmonary edema. The patient's initial blood pressures were in the 240s and 260s respectively here in the emergency department and for EMS. The patient had Nitropaste on his chest when he arrived in the emergency department. The patient immediately was bolused 1000 mcg of nitroglycerin by me. Recheck of his blood pressure continued to demonstrate markedly elevated blood pressures into the 220s systolic 3 minutes after the initial bolus of 1000 micro grams of nitroglycerin. A second bolus of 1000 mg of nitroglycerin was subsequently administered. Patient was started on a continuous infusion of nitroglycerin starting at 100 mcg/min. A stat portal chest x-ray was obtained that demonstrated pulmonary edema more prominent on the right versus the left. Bedside ultrasound was obtained prior to the chest x-ray and did demonstrate B-lines in all lung fisher. I was unable to get a good echocardiogram view as patient was unable to lie flat and there were B-lines prohibiting the appropriate view of the cardiac window. Labs are pending, patient was placed on BiPAP shortly after arrival to the emergency department with significant improvement of his work of breathing. Currently on BiPAP 12 on 6 at 50% FiO2 the patient is saturating 97% on his work of breathing is gradually improving currently breathing 27 times per minute. In critical condition and will be reassessed at regular intervals. 11/29/18 21:19 Patient's work of breathing continues to improve he is able to speak at least 4- 5 words in a sentence now at this time. He is saturating 98% on 50% FiO2 on BiPAP. His blood pressure is 188 on 108 currently nitroglycerin infusion at 140 mg/min we continued up titrate to a goal systolic of 160. We do not have dialysis of beds available in the hospital and he will require transfer as he is dialysis dependent and may need dialysis as part of his treatment plan. He is scheduled for dialysis in the morning. Awaiting laboratories. Will continue to reassess at regular intervals. 11/29/18 21:21 Chest x-ray has been read by radiology as being a possible acute pneumonia which does not make clinical sense in this context. Patient has no fever, no cough, no sputum production, no leukocytosis. His shortness of breath is also acute in onset and associated with market hypertension. The patient also has increased interstitial markings bilaterally and has diffuse B-lines bilaterally. I do not believe that he requires antibiotic treatment at this point given that his clinical history is not consistent with this diagnosis. 11/30/18 00:11 I have discussed this case with Dr. Haider as well as the stock transfer clerk on-call at [facility] . Case discussed in detail with both ysicians. Dr. Haider did accept the patient. Patient understands that he is being transferred. At this time the patient's blood pressure is currently 147/99 on 320 of nitroglycerin. I have informed nursing staff that they can continue to titrate again keeping the systolic ranges in the 160s. 11/30/18 03:06 Patient continues to clinically improve, nitroglycerin is being down titrated. The patient is frequently taking off his BiPAP mask stating that this is itching him. I have continue to advise the patient that he absolutely needs to continue to wear the BiPAP or he could have recurrence of pulmonary edema. Awaiting transport. Patient remains overall much improved and is currently in guarded condition. - Vital Signs Vital signs: Temp Pulse Resp BP Pulse Ox 97.2 F 15 155/95 H 98 11/29/18 23:00 11/30/18 02:20 11/30/18 02:20 11/30/18 02:20 - Laboratory Result Diagrams: 11/29/18 21:00 11/29/18 21:00 Laboratory results interpreted by me: 11/29/18 11/29/18 11/29/18 21:00 21:00 21:00 RBC 4.05 L Hgb 12.4 L Hct 37.4 L Seg Neutrophils % 40.4 L Lymphocytes % 48.0 H Chloride 108 H Carbon Dioxide 20 L BUN 51 H Creatinine 9.16 H Est GFR ( Amer) 7 L Est GFR (Non-Af Amer) 6 L Glucose 175 H Calcium 6.8 L* AST 68 H NT-Pro-B Natriuret Pep 05374 H - Diagnostic Test Radiology reviewed: Image reviewed, Reports reviewed Radiology results interpreted by me: 11/30/18 03:07 Chest x-ray: Pulmonary edema more dominant towards the right versus left - EKG Interpretation by Me Additional EKG results interpreted by me: 11/30/18 03:07 Sinus tachycardia, rate 101. LVH. QTC prolonged at 519. Critical Care Note - Critical Care Note Total time excluding time spent on procedures (mins): 75 Comments: Critical care time spent obtaining history from patient or surrogate, discussions with consultants, development of treatment plan with patient or surrogate, evaluation of patient's response to treatment, examination of patient, ordering and performing treatments and interventions, ordering and review of laboratory studies, re-evaluation of patient's condition, ordering and review of radiographic studies and review of old charts Discharge - Discharge Clinical Impression: Flash pulmonary edema, Respiratory distress, Acute and chronic respiratory failure with hypoxia, Hypertensive emergency Chronic kidney disease Qualifiers: Chronic kidney disease stage: unspecified stage Qualified Code(s): N18.9 - Chronic kidney disease, unspecified Condition: Fair Disposition: [facility] Referrals: YOSHI JEAN-BAPTISTE NP [Primary Care Provider] - Follow up as needed
[2018-11-29 21:08] LABS: ABSOLUTE BASOPHILS # (AUTO) 0.1 10^3/uL (0.0-0.2); ABSOLUTE EOSINOPHILS # (AUTO) 0.2 10^3/uL (0.0-0.6); ABSOLUTE MONOCYTES (AUTO) 0.7 10^3/uL (0.1-1.4); ABSOLUTE NEUT (AUTO) 3.3 10^3/uL (1.7-8.2); BASOPHILS % (AUTO) 0.7 % (0-2); EOSINOPHILS % (AUTO) 2.5 % (0-6); HEMATOCRIT 37.4 % (37.9-51.0); HEMOGLOBIN 12.4 g/dL (13.5-17.0); MEAN CORPUSCULAR HEMOGLOBIN 30.5 pg (27.0-33.4); MEAN CORPUSCULAR HGB CONC 33.1 g/dL (32.0-36.0); MEAN CORPUSCULAR VOLUME 92 fl (80-97); MONOCYTES % (AUTO) 8.4 % (3-13); PLATELET COUNT 205 10^3/uL (150-450); RED BLOOD COUNT 4.05 10^6/uL (4.35-5.55); SEGMENTED NEUTROPHILS % (AUTO) 40.4 % (42-78); TOTAL CELLS COUNTED % (AUTO) 100 %; WHITE BLOOD COUNT 8.3 10^3/uL (4.0-10.5)
[2018-11-29 21:19] LABS: INTERNATIONAL RATION (INR) 1.15; PROTHROMBIN TIME 15.3 SEC (11.4-15.4)
--- NOTE | 2018-11-29 21:19 | RADIOLOGY REPORT (SQ) ---
EXAM DESCRIPTION: [facility]: XR CHEST 1 VIEW CLINICAL HISTORY: 63 years Male, sob COMPARISON: 11/29/2018 at 0436 FINDINGS: A dense alveolar interstitial infiltrate has developed in the right lower lung field. Left lung is unchanged. No pneumothorax or pleural effusion. Right chest wall surgical clips are again noted. Mediastinum is within normal limits for this positioning. Bony structures are unremarkable. IMPRESSION: New right lower lobe infiltrate, likely acute pneumonia.
[2018-11-29 21:20] LABS: PARTIAL THROMBOPLASTIN TIME 30.6 SEC (23.5-35.8)
[2018-11-29 21:28] LABS: ALANINE AMINOTRANSFERASE 48 U/L (21-72); ALBUMIN 4.1 g/dL (3.5-5.0); ALKALINE PHOSPHATASE 99 U/L (38-126); ANION GAP 15 (5-19); ASPARTATE AMINO TRANSFERASE 68 U/L (17-59); BILIRUBIN,DIRECT 0.4 mg/dL (0.0-0.4); BILIRUBIN,TOTAL 0.4 mg/dL (0.2-1.3); BLOOD UREA NITROGEN 51 mg/dL (7-20); CARBON DIOXIDE 20 mmol/L (22-30); CHLORIDE 108 mmol/L (98-107); GLUCOSE 175 mg/dL (75-110); POTASSIUM 4.4 mmol/L (3.6-5.0); SODIUM 142.5 mmol/L (137-145); TOTAL PROTEIN 7.5 g/dL (6.3-8.2)
[2018-11-29 21:29] LABS: ALCOHOL < 10 mg/dL (NONE DETECTED)
[2018-11-29 21:34] LABS: CALCIUM 6.8 mg/dL (8.4-10.2)
[2018-11-29 22:14] LABS: TROPONIN I 0.126 ng/mL
[2018-11-30] MEDS: NITROGLYCERIN/D5W 50 MG/250 ML RTUINJ IV PRN ×2 (00:17→03:43)
[2018-11-30 03:47] VITALS: BP 161/106
[2018-11-30 03:59] LABS: APPEARANCE,URINE CLEAR; BILIRUBIN,URINE NEGATIVE (NEGATIVE); COLOR,URINE YELLOW; GLUCOSE, URINE 50 mg/dL (NEGATIVE); KETONES,URINE NEGATIVE (NEGATIVE); LEUKOCYTE ESTERASE,URINE NEGATIVE (NEGATIVE); NITRITE,URINE NEGATIVE (NEGATIVE); PROTEIN,URINE 100 mg/dL (NEGATIVE); UROBILINOGEN,URINE NEGATIVE mg/dL (<2.0)
[2018-11-30 04:14] LABS: URINE BARBITURATES SCREEN NEGATIVE; URINE BENZODIAZEPINES SCREEN NEGATIVE; URINE COCAINE SCREEN UNCONFIRMED POSITIVE; URINE MARIJUANA (THC) SCREEN NEGATIVE; URINE METHADONE SCREEN NEGATIVE; URINE PHENCYCLIDINE SCREEN NEGATIVE
[2018-11-30 04:15] LABS: URINE AMPHETAMINES SCREEN NEGATIVE
--- NOTE | 2018-11-30 07:52 | EKG REPORT ---
SEVERITY:- ABNORMAL ECG - SINUS TACHYCARDIA PROBABLE LEFT ATRIAL ABNORMALITY LEFT AXIS DEVIATION LEFT VENTRICULAR HYPERTROPHY NONSPECIFIC LATERAL ST-T CHANGES PROLONGED QT INTERVAL : Confirmed by: Marco Young MD 30-Nov-2018 07:51:44
== END 2018-11-30 03:45 | disposition short-term general hospital (02) ==
LOC: ER 20:28
DX: J96.21 Acute and chronic respiratory failure with hypoxia (principal); I16.1 Hypertensive emergency; I13.11 Hypertensive heart and chronic kidney disease without heart failure, with stage 5 chronic kidney disease, or end stage renal disease; E11.22 Type 2 diabetes mellitus with diabetic chronic kidney disease; N18.6 End stage renal disease; Z99.2 Dependence on renal dialysis; E11.51 Type 2 diabetes mellitus with diabetic peripheral angiopathy without gangrene; J81.0 Acute pulmonary edema; J44.9 Chronic obstructive pulmonary disease, unspecified; F14.10 Cocaine abuse, uncomplicated; F17.200 Nicotine dependence, unspecified, uncomplicated; R61 Generalized hyperhidrosis; R00.0 Tachycardia, unspecified; Z21 Asymptomatic human immunodeficiency virus [HIV] infection status; Z87.01 Personal history of pneumonia (recurrent); Z88.8 Allergy status to other drugs, medicaments and biological substances
CPT/HCPCS: 93005; 99291; 99292; 96375; 96365; 96366; 36415; 80307 ×2; 85025; 85610; 85730; 80053; 81001; 84484; 83880; 71045; 93010; 94660; J1940; J3490 ×2

== ENCOUNTER → 2019-01-08 | Outpatient (CLI) | payer MEDICARE, MEDICAID ==
[2019-01-08 16:29] LABS: APPEARANCE,URINE CLEAR; BILIRUBIN,URINE NEGATIVE (NEGATIVE); COLOR,URINE YELLOW; GLUCOSE, URINE 50 mg/dL (NEGATIVE); KETONES,URINE NEGATIVE (NEGATIVE); LEUKOCYTE ESTERASE,URINE NEGATIVE (NEGATIVE); NITRITE,URINE NEGATIVE (NEGATIVE); PROTEIN,URINE >=500 mg/dL (NEGATIVE); URINE SPECIFIC GRAVITY 1.013; UROBILINOGEN,URINE NEGATIVE mg/dL (<2.0)
[2019-01-08 16:55] LABS: ABSOLUTE EOSINOPHILS # (AUTO) 0.4 10^3/uL (0.0-0.6); ABSOLUTE LYMPHOCYTES (AUTO) 1.8 10^3/uL (0.5-4.7); ABSOLUTE MONOCYTES (AUTO) 0.8 10^3/uL (0.1-1.4); ABSOLUTE NEUT (AUTO) 2.4 10^3/uL (1.7-8.2); BASOPHILS % (AUTO) 0.8 % (0-2); EOSINOPHILS % (AUTO) 6.9 % (0-6); HEMATOCRIT 37.3 % (37.9-51.0); LYMPHOCYTES % (AUTO) 33.3 % (13-45); MEAN CORPUSCULAR HEMOGLOBIN 31.4 pg (27.0-33.4); MEAN CORPUSCULAR HGB CONC 34.7 g/dL (32.0-36.0); MEAN CORPUSCULAR VOLUME 90 fl (80-97); MONOCYTES % (AUTO) 15.2 % (3-13); PLATELET COUNT 197 10^3/uL (150-450); RED BLOOD COUNT 4.13 10^6/uL (4.35-5.55); RED CELL DISTRIBUTION WIDTH 14.7 % (11.5-14.0); SEGMENTED NEUTROPHILS % (AUTO) 43.8 % (42-78); TOTAL CELLS COUNTED % (AUTO) 100 %; WHITE BLOOD COUNT 5.5 10^3/uL (4.0-10.5)
[2019-01-08 17:14] LABS: ALANINE AMINOTRANSFERASE 19 U/L (21-72); ALBUMIN 4.6 g/dL (3.5-5.0); ALKALINE PHOSPHATASE 84 U/L (38-126); ANION GAP 17 (5-19); ASPARTATE AMINO TRANSFERASE 23 U/L (17-59); BILIRUBIN,DIRECT 0.5 mg/dL (0.0-0.4); BILIRUBIN,TOTAL 0.5 mg/dL (0.2-1.3); BLOOD UREA NITROGEN 30 mg/dL (7-20); CALCIUM 8.3 mg/dL (8.4-10.2); CARBON DIOXIDE 27 mmol/L (22-30); CHLORIDE 96 mmol/L (98-107); GLUCOSE 106 mg/dL (75-110); POTASSIUM 3.5 mmol/L (3.6-5.0); SODIUM 140.2 mmol/L (137-145)
[2019-01-10 17:36] LABS: % CD 4 POS LYMPH 30.7 % (30.8-58.5); ABSOLUTE CD 4 HELPER 645 /uL (359-1519); CD BASOPHILS 1 % (Not Estab.); CD EOSINOPHILS 6 % (Not Estab.); CD MONOCYTES 10 % (Not Estab.); CD NEUTROPHILS 48 % (Not Estab.); EOSINOPHILS (ABSOLUTE) 0.4 x10E3/uL (0.0-0.4); HEMOGLOBIN 12.7 g/dL (13.0-17.7); IMMATURE GRANULOCYTES 0 % (Not Estab.); LYMPHS(ABSOLUTE) 2.1 x10E3/uL (0.7-3.1); MCH 31.1 pg (26.6-33.0); MCHC 33.7 g/dL (31.5-35.7); MCV 92 fL (79-97); PLATELETS 205 x10E3/uL (150-450); RBC 4.08 x10E6/uL (4.14-5.80); RDW 15.2 % (12.3-15.4)
== END ==
LOC: OD 14:58
PROVIDERS: ATTEND Nurse Practitioner
DX: Z79.899 Other long term (current) drug therapy (principal); B20 Human immunodeficiency virus [HIV] disease; Z11.3 Encounter for screening for infections with a predominantly sexual mode of transmission
CPT/HCPCS: 36415; 80053; 81001; 85025; 86361; 86592

== ENCOUNTER 2019-01-15 01:31 | Inpatient (IN) | payer MEDICARE, MEDICAID ==
[2019-01-15] MEDS ORDERED: IPRATROPIUM/ALBUTEROL 0.5-2.5 MG/3 ML AMPUL NEB ONE (01:47)
--- NOTE | 2019-01-15 01:49 | ER Document Report ---
ED General - General Stated Complaint: CHEST PAIN Time Seen by Provider: 01/15/19 01:39 Primary Care Provider: MATHIEU MACIAS FNP [Primary Care Provider] - Follow up as needed Notes: Patient is a pleasant 63-year-old male who presents with complaint of pain in the chest. Patient states that he certainly has had some worsening difficulty breathing then developed some tightness on her left side of his chest. Patient is a dialysis patient. He says had previous NM but never had stents or heart cath. Does have previous history of cocaine use but says he has not used cocaine in 3 months because he is on a transplant list for kidney and does not want to mess up his chances of getting a kidney transplant. He gets dialysis Friday. Had dialysis Friday and said everything went well. Denies any fevers. No vomiting. No other complaints at this time. He is a smoker. Symptoms started around 11:30 PM tonight. TRAVEL OUTSIDE OF THE [place] IN LAST 30 DAYS: No - Related Data Allergies/Adverse Reactions: calcitriol Allergy (Verified 08/31/18 14:27) itching Past Medical History - Social History Smoking Status: Current Every Day Smoker Frequency of alcohol use: None Drug Abuse: None Family History: CAD, CVA, DM, Hyperlipidemia, Hypertension, Malignancy - Past Medical History Cardiac Medical History: Reports: Hx Congestive Heart Failure - EF is 40%, with moderate diastolic dysfunction, Hx DVT, Hx Heart Attack, Hx Hypercholesterolemia, Hx Hypertension, Hx Peripheral Vascular Disease, Hx Pulmonary Embolism Pulmonary Medical History: Reports: Hx Bronchitis, Hx COPD, Hx Pneumonia, Hx Respiratory Failure Denies: Hx Asthma Neurological Medical History: Denies: Hx Migraine, Hx Seizures Endocrine Medical History: Reports: Hx Diabetes Mellitus Type 2 - insulin dependent. Denies: Hx Hyperthyroidism, Hx Hypothyroidism. Comment Only: Hx Diabetes Mellitus Type 1 - 1.5 Renal/ Medical History: Reports: Hx End Stage Renal Disease - Dialysis MWF, Hx Hemodialysis, Hx Renal Insufficiency. Denies: Hx Peritoneal Dialysis GI Medical History: Reports: Hx Gastroesophageal Reflux Disease. Denies: Hx Crohn's Disease, Hx Ulcerative Colitis Musculoskeletal Medical History: Reports Hx Arthritis, Denies Hx Fibromyalgia, 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, Reports Hx Musculoskeletal Trauma Skin Medical History: Denies Hx Eczema, Denies Hx Psoriasis Psychiatric Medical History: Reports: Hx Depression Traumatic Medical History: Denies: Hx Traumatic Brain Injury Infectious Medical History: Reports: Hx HIV Past Surgical History: Reports: Hx Orthopedic Surgery - bilateral amputation, R BKA, L AKA, Hx Vascular Surgery - left arm clot removed, IVC filter, thrombectomy 05/18/2018 left arm, Other - Endoscopy; Vascular surgery. - Immunizations Immunizations up to date: Yes Hx Diphtheria, Pertussis, Tetanus Vaccination: Yes Hx Pneumococcal Vaccination: 07/21/10 Review of Systems - Review of Systems Notes: My Normal Review Basic REVIEW OF SYSTEMS: CONSTITUTIONAL : Denies fever, chills, or sweats. Denies recent illness. EENT: Denies eye, ear, throat, or mouth pain or symptoms. Denies nasal or sinus congestion. CARDIOVASCULAR: Chest tightness RESPIRATORY: Shortness of breath GASTROINTESTINAL: Denies abdominal pain. Denies nausea, vomiting, or diarrhea. MUSCULOSKELETAL: Denies neck or back pain or joint pain or swelling. SKIN: Denies rash or skin lesions. NEUROLOGICAL: Denies altered mental status or loss of consciousness. Denies headache. Denies weakness or paralysis or loss of use of either side. Denies problems with gait or speech. Denies sensory or motor loss. ALL OTHER SYSTEMS REVIEWED AND NEGATIVE. Physical Exam - Vital signs Vitals: Temp 98.1 F 01/15/19 03:12 - Notes Notes: General Appearance: Well nourished, alert, cooperative, no acute distress, no o bvious discomfort. Well-appearing. Vitals: reviewed, See vital signs table. Head: no swelling or tenderness to the head Eyes: PERRL, EOMI, Conjuctiva clear Mouth: No decreasd moisture Throat: No tonsillar inflammation, No airway obstruction, No lymphadenopathy Neck: Supple, no neck tenderness, No thyromegaly Lungs: Diffuse scattered wheezing, No rales, No rhonci, No accessory muscle use, good air exchange bilaterally. Heart: Normal rate, Regular rythm, No murmur, no rub Abdomen: Normal BS, soft, No rigidity, No abdominal tenderness, No guarding, no rebound, no abdominal masses, no organomegaly Extremities: Pulsations of bilateral lower extremities. Fistula in left forearm. Good palpable thrill and distal pulses., good pulses in all extremities, no swelling or tenderness in the extremities, no edema. Skin: warm, dry, appropriate color, no rash Neuro: speech clear, oriented x 3, normal affect, responds appropriately to questions. Course - Re-evaluation Re-evalutation: 01/15/19 04:04 Patient's chest pain improved with the nitro. He did develop a headache and therefore given morphine which relieved the headache. While bit of wheezing he had is cleared with the breathing treatment. Chest x-ray does not show any edema. Due to patient's multiple coronary artery risk factors and no stress test the last 2 years and no previous heart catheter think is appropriate to admit him for further ACS rule out. Patient is agreeable to this. I did speak with the hospitalist, Dr. Marin, who agrees to evaluate the patient for admission. Dictation of this chart was performed using voice recognition software; therefo re, there may be some unintended grammatical errors. - Vital Signs Vital signs: Temp Pulse Resp BP Pulse Ox 98.1 F 01/15/19 03:12 - Laboratory Result Diagrams: 01/15/19 02:06 01/15/19 02:06 Laboratory results interpreted by me: 01/15/19 01/15/19 02:06 02:06 RBC 3.69 L Hgb 11.5 L Hct 33.7 L RDW 14.8 H Monocytes % 13.7 H Carbon Dioxide 21 L BUN 56 H Creatinine 7.61 H Est GFR ( Amer) 9 L Est GFR (Non-Af Amer) 7 L Calcium 7.8 L - EKG Interpretation by Me Additional EKG results interpreted by me: 01/15/19 02:43 EKG is reviewed and interpreted by me. EKG shows sinus tachycardia with rate of [address] segment elevation or depression. No ischemic T wave inversions. NH interval, QRS duration are within normal range. QT interval is prolonged. Old EKG for comparison is from November 30, 2018. No concerning changes comparison to previous EKG. Discharge - Discharge Clinical Impression: End stage renal disease, ESRD needing dialysis Chest pain Qualifiers: Chest pain type: unspecified Qualified Code(s): R07.9 - Chest pain, unspecified Condition: Stable Disposition: ADMITTED OBSERVATION Admitting Provider: Tania (Hospitalist) Unit Admitted: Telemetry Referrals: MATHIEU MACIAS FNP [Primary Care Provider] - Follow up as needed
[2019-01-15 02:19] LABS: ABSOLUTE EOSINOPHILS # (AUTO) 0.4 10^3/uL (0.0-0.6); ABSOLUTE LYMPHOCYTES (AUTO) 2.5 10^3/uL (0.5-4.7); ABSOLUTE NEUT (AUTO) 3.7 10^3/uL (1.7-8.2); BASOPHILS % (AUTO) 0.3 % (0-2); EOSINOPHILS % (AUTO) 4.9 % (0-6); HEMATOCRIT 33.7 % (37.9-51.0); HEMOGLOBIN 11.5 g/dL (13.5-17.0); LYMPHOCYTES % (AUTO) 32.6 % (13-45); MEAN CORPUSCULAR HEMOGLOBIN 31.2 pg (27.0-33.4); MEAN CORPUSCULAR HGB CONC 34.2 g/dL (32.0-36.0); MEAN CORPUSCULAR VOLUME 91 fl (80-97); MONOCYTES % (AUTO) 13.7 % (3-13); PLATELET COUNT 191 10^3/uL (150-450); RED BLOOD COUNT 3.69 10^6/uL (4.35-5.55); RED CELL DISTRIBUTION WIDTH 14.8 % (11.5-14.0); SEGMENTED NEUTROPHILS % (AUTO) 48.5 % (42-78); TOTAL CELLS COUNTED % (AUTO) 100 %; WHITE BLOOD COUNT 7.6 10^3/uL (4.0-10.5)
[2019-01-15] MEDS ORDERED: NITROGLYCERIN 2% OINTMENT 1 GM PACKET TP ONE (02:21)
--- NOTE | 2019-01-15 02:33 | RADIOLOGY REPORT (SQ) ---
EXAM DESCRIPTION: XR CHEST 1 VIEW COMPLETED DATE/TME: 01/15/2019 01:46 CLINICAL HISTORY: 63 years, Male, chest pain COMPARISON: 11/29/2018 chest NUMBER OF VIEWS: 1 TECHNIQUE: Portable chest LIMITATIONS: None. FINDINGS: Stable cardiomegaly. Osteopenia. Improved aeration of the right lung base with persistent minimal airspace opacity as well as diffuse interstitial prominence. Surgical clips over the right hemithorax. No pneumothorax. IMPRESSION: Improved aeration of the right lung base. Minimal residual airspace opacity persists. Mild prominence of the pulmonary interstitium, likely reflecting mild interstitial edema copyright 2010 [employer]- All Rights Reserved
[2019-01-15 02:36] LABS: ALANINE AMINOTRANSFERASE 25 U/L (21-72); ALBUMIN 4.2 g/dL (3.5-5.0); ALKALINE PHOSPHATASE 79 U/L (38-126); ANION GAP 14 (5-19); ASPARTATE AMINO TRANSFERASE 30 U/L (17-59); BILIRUBIN,DIRECT 0.4 mg/dL (0.0-0.4); BILIRUBIN,TOTAL 0.4 mg/dL (0.2-1.3); BLOOD UREA NITROGEN 56 mg/dL (7-20); CALCIUM 7.8 mg/dL (8.4-10.2); CARBON DIOXIDE 21 mmol/L (22-30); CHLORIDE 106 mmol/L (98-107); GLUCOSE 91 mg/dL (75-110); SODIUM 141.3 mmol/L (137-145); TOTAL PROTEIN 7.9 g/dL (6.3-8.2)
[2019-01-15] MEDS ORDERED: MORPHINE SULFATE 10 MG/ML INJ IV ONE (02:42)
[2019-01-15 03:09] LABS: URINE AMPHETAMINES SCREEN NEGATIVE; URINE BARBITURATES SCREEN NEGATIVE; URINE BENZODIAZEPINES SCREEN NEGATIVE; URINE COCAINE SCREEN NEGATIVE; URINE MARIJUANA (THC) SCREEN NEGATIVE; URINE METHADONE SCREEN NEGATIVE; URINE PHENCYCLIDINE SCREEN NEGATIVE
[2019-01-15 03:55] LABS: INTERNATIONAL RATION (INR) 1.21; PROTHROMBIN TIME 15.4 SEC (11.4-15.4)
[2019-01-15] MEDS ORDERED: MAG HYDROX/AL HYDROX/SIMETH SUSP 30 ML UDCUP PO PRN (05:05)
[2019-01-15] MEDS ORDERED: MAGNESIUM HYDROXIDE SUSP 30 ML UDCUP PO PRN (05:05)
[2019-01-15] MEDS ORDERED: ONDANSETRON HCL INJ/PF 4 MG/2 ML SDV IV PRN (05:05)
[2019-01-15] MEDS ORDERED: ACETAMINOPHEN 325 MG TABLET PO PRN (05:14)
[2019-01-15] MEDS ORDERED: MORPHINE SULFATE 10 MG/ML INJ IV PRN ×5 (05:14→05:29)
[2019-01-15] MEDS ORDERED: NICOTINE 21 MG/24 HR PATCH.TD24 TD PRN (05:17)
[2019-01-15] MEDS ORDERED: HYDRALAZINE HCL INJ/PF 20 MG/1 ML SDV IV PRN (05:17)
[2019-01-15] MEDS: HEPARIN SOD (PORCINE) 5,000 UNIT/ML 1 ML SYRINGE SUBCUT SCH ×3 (06:45→22:18)
[2019-01-15] MEDS: PANTOPRAZOLE SODIUM 40 MG TABLET.DR PO SCH ×2 (06:56→17:09)
[2019-01-15] MEDS: NITROGLYCERIN 2% OINTMENT 1 GM PACKET TP SCH ×2 (06:56→12:54)
[2019-01-15] MEDS: MORPHINE SULFATE 10 MG/ML INJ IV PRN ×3 (07:02→22:14)
--- NOTE | 2019-01-15 07:03 | PDOC H&P ---
History of Present Illness Admission Date/PCP: 01/15/2019 03:59 ARUN MORA Patient complains of: Chest pain History of Present Illness: KRISTY CANTU is a 63 year old male who presented to the emergency room with acute chest pain. He admits that shortly before midnight he developed sudden onset of a constant severe tightness in the left side of his anterior mid-chest without radiation. The pain is accompanied by orthopnea and is worsened by lying flat. He admits prior similar episodes with a heart attack in the past and has not identified any other aggravating or ameliorating factors for his chest pain. The pain showed no signs of resolving after more than a half an polina r and subsequently the patient came to the emergency room for further evaluation and treatment. In the emergency room he was found to have a troponin lower than his usual baseline troponin level and an EKG that showed no evidence of acute myocardial ischemia or injury. His pain was relieved after treatment with nitroglycerin however the nitroglycerin caused a headache which then was treated with morphine. Patient was subsequently admitted to the hospital for further evaluation and treatment. Past Medical History Cardiac Medical History: Reports: Congestive Heart Failure - EF is 40%, with moderate diastolic dysfunction, Coronary Artery Disease, DVT, Myocardial Infarction, Hyperlipidema, Hypertension, Peripheral Vascular Disease, Pulmonary Embolism Denies: Atrial Fibrillation Pulmonary Medical History: Reports: Bronchitis, Chronic Obstructive Pulmonary Disease (COPD), Pneumonia, Respiratory Failure Denies: Asthma, Sleep Apnea EENT Medical History: Denies: Cataracts, Ears - Hearing aids Neurological Medical History: Denies: Hemorrhagic CVA, Ischemic CVA, Migraine, Multiple Sclerosis, Seizures Endocrine Medical History: Reports: Diabetes Mellitus Type 2 - insulin dependent Denies: Hyperthyroidism, Hypothyroidism Renal/ Medical History: Reports: End Stage Renal Disease - Dialysis MWF with Dr. Pablo Lowe Denies: Nephrolithiasis Malignancy Medical History: Reports: None GI Medical History: Reports: Gastroesophageal Reflux Disease Denies: Cirrhosis, Crohn's Disease, Hepatitis, Ulcerative Colitis Musculoskeltal Medical History: Reports: Arthritis Denies: Fibromyalgia Skin Medical History: Denies: Eczema, Psoriasis Psychiatric Medical History: Reports: Depression, Substance Abuse, Tobacco Dependency Denies: Alcohol Dependency Traumatic Medical History: Reports: None Hematology: Reports: Anemia, Bleeding Tendencies - Since being on warfarin Infectious Medical History: Reports: HIV Past Surgical History Past Surgical History: Reports: Orthopedic Surgery - bilateral amputation, R BKA, L AKA, Vascular Surgery - left arm clot removed, IVC filter, thrombectomy 05/18/2018 left arm Denies: Other - Endoscopy, dialysis shunt/tunnel graft Social History Information Source: Patient Lives with: Spouse/Significant other, Friend Smoking Status: Current Every Day Smoker Frequency of Alcohol Use: None Hx Recreational Drug Use: Yes - Last used 09/26/18 Drugs: Cocaine Hx Prescription Drug Abuse: No - Advance Directive Resuscitation Status: Full Code Surrogate healthcare decision maker:: Deon Cantu Family History Family History: CAD, CVA, DM, Hyperlipidemia, Hypertension, Malignancy Parental Family History Reviewed: Yes Children Family History Reviewed: No Sibling(s) Family History Reviewed.: Yes Medication/Allergy Home Medications: Abacavir Sulfate [Abacavir 300 mg Tablet] 600 mg PO BID 07/15/18 Clonidine [Catapres-Tts 3 (0.3 mg/24 Hr) Transderm Patch] 1 patch TD TH@1000 07/15/18 Dolutegravir Sodium [Tivicay] 50 mg PO DAILY 07/15/18 Furosemide [Lasix 80 mg Tablet] 80 mg PO DAILY 07/15/18 Isosorbide Mononitrate [Isosorbide Mononitrate ER] 120 mg PO DAILY 07/15/18 Nitroglycerin [Nitrostat 0.4 mg (1/150 Gr) Tabs 25/Bottle] 1 tab SL Q5MP PRN 07/15/18 Albuterol Sulfate [Proair HFA Inhalation Aerosol 8.5 gm MDI] 2 puff IH Q6HP PRN 07/27/18 Calcium Acetate 667 mg PO TID 07/27/18 Lamivudine [Epivir] 5 ml PO DAILY 07/27/18 Warfarin Sodium 5 mg PO DAILY #7 tablet 08/16/18 Nicotine [Nicoderm 14 mg/24 Hr Transdermal Patch] 1 patch TD DAILY 09/28/18 Nifedipine [Nifedipine ER] 60 mg PO DAILY 09/28/18 Allergies/Adverse Reactions: calcitriol Allergy (Verified 08/31/18 14:27) itching Review of Systems Constitutional: ABSENT: chills, fever(s) Eyes: ABSENT: visual disturbances, other - Eye pain Ears: ABSENT: hearing changes, other - Ear pain Nose, Mouth, and Throat: ABSENT: mouth pain, sore throat Cardiovascular: PRESENT: as per HPI, chest pain, dyspnea on exertion, orthropnea. ABSENT: edema, palpitations Respiratory: PRESENT: dyspnea. ABSENT: cough Gastrointestinal: ABSENT: abdominal pain, constipation, diarrhea, heartburn, nausea, vomiting Genitourinary: ABSENT: dysuria, hematuria Musculoskeletal: ABSENT: back pain, joint swelling, muscle weakness Integumentary: ABSENT: diaphoresis, pruritus, rash Neurological: ABSENT: confusion, convulsions, focal weakness, memory loss, syncope Psychiatric: ABSENT: anxiety, depression Endocrine: ABSENT: cold intolerance, heat intolerance Hematologic/Lymphatic: ABSENT: easy bleeding, easy bruising Physical Exam Vital Signs: Temp Pulse Resp BP Pulse Ox 98.1 F 01/15/19 03:12 Intake & Output 01/13/19 01/14/19 01/15/19 23:59 23:59 23:59 Weight 75.2 kg General appearance: PRESENT: no acute distress, cooperative Head exam: PRESENT: atraumatic, normocephalic Eye exam: ABSENT: conjunctival injection, scleral icterus Ear exam: PRESENT: normal external ear exam. ABSENT: bleeding, drainage Mouth exam: PRESENT: dry mucosa, neck supple Neck exam: PRESENT: JVD - Mild bilateral JVD @ 30 degrees HOB elevation. AB SENT: thyromegaly, tracheal deviation Respiratory exam: PRESENT: prolonged expiratory phas - Mildly prolonged expiratory phase throughout all fisher, rales - Bilateral fine basilar rales (lower one fourth of both lung fisher), symmetrical, wheezes - Mild expiratory wheezes throughout all fisher Cardiovascular exam: PRESENT: gallop - S4 gallop rhythm noted, RRR. ABSENT: clicks, rubs Pulses: PRESENT: normal radial pulses, normal dorsalis pedis pul Vascular exam: PRESENT: normal capillary refill, other - Trace presacral edema, mild edema of dependent areas of the bilateral lower extremities S/P bilateral amputation (Rt. BKA, Lft. AKA). ABSENT: pallor GI/Abdominal exam: PRESENT: normal bowel sounds, soft. ABSENT: tenderness Rectal exam: PRESENT: deferred Extremities exam: PRESENT: other - bilateral amputation, R BKA, L AKA. ABSENT: joint swelling, tenderness Musculoskeletal exam: PRESENT: other - bilateral amputation, R BKA, L AKA. ABSENT: dislocation, tenderness Neurological exam: PRESENT: alert, oriented to person, oriented to place, oriented to time, oriented to situation, CN II-XII grossly intact. ABSENT: motor sensory deficit Psychiatric exam: PRESENT: appropriate affect, normal mood Skin exam: PRESENT: dry, intact, warm. ABSENT: jaundice, rash, urticaria Results Laboratory Results: 01/15/19 02:06 01/15/19 02:06 01/15/19 01/15/19 02:06 02:06 WBC 7.6 RBC 3.69 L Hgb 11.5 L Hct 33.7 L MCV 91 MCH 31.2 MCHC 34.2 RDW 14.8 H Plt Count 191 Seg Neutrophils % 48.5 Lymphocytes % 32.6 Monocytes % 13.7 H Eosinophils % 4.9 Basophils % 0.3 Absolute Neutrophils 3.7 Absolute Lymphocytes 2.5 Absolute Monocytes 1.0 Absolute Eosinophils 0.4 Absolute Basophils 0.0 Sodium 141.3 Potassium 4.0 Chloride 106 Carbon Dioxide 21 L Anion Gap 14 BUN 56 H Creatinine 7.61 H Est GFR ( Amer) 9 L Est GFR (Non-Af Amer) 7 L Glucose 91 Calcium 7.8 L Total Bilirubin 0.4 AST 30 ALT 25 Alkaline Phosphatase 79 Total Protein 7.9 Albumin 4.2 01/15/19 02:06 Troponin I 0.086 EKG Comments: I personally reviewed this patient's electrocardiogram with the following findings there is noted to be a sinus tachycardia with a rate of 107. There is noted to be a prolonged QT interval. Is noted to be left ventricular hypertrophy with a strain pattern in the lateral leads. Left anterior hemiblock is present. Impressions: Chest X-Ray 01/15/19 01:46 IMPRESSION: Improved aeration of the right lung base. Minimal residual airspace opacity persists. Mild prominence of the pulmonary interstitium, likely reflecting mild interstitial edema copyright 2011 [employer]- All Rights Reserved Status: Image reviewed by me - I have personally reviewed this patient's chest x-ray which in my opinion reveals cardiomegaly with mild to moderate interstitial edema with a bilateral cephalization pattern noted in the pulmonary vasculature consistent with early pulmonary edema. No other acute changes are noted. Assessment and Plan - Diagnosis (1) Chest pain Qualifiers: Chest pain type: unspecified Qualified Code(s): R07.9 - Chest pain, unspecified Is this a current diagnosis for this admission?: Yes Plan: Patient will be admitted to telemetry unit for serial cardiac enzyme testing and serial EKG's. He will receive morphine sulfate 2 to 4 mg IV every 2 hours as needed for chest pain on a sliding scale basis. A cardiology consultation with Dr. Coker will be obtained. (2) ESRD needing dialysis Is this a current diagnosis for this admission?: Yes Plan: Patient will be admitted to inpatient services and will receive dialysis as an inpatient with Dr. Pablo Lowe being consulted for nephrology evaluation and treatment. (3) Acute on chronic combined systolic and diastolic heart failure Is this a current diagnosis for this admission?: Yes Plan: Patient has strong clinical evidence and radiographic evidence for acute congestive failure based on his pulmonary edema. This is most likely secondary to fluid overload due to his end-stage renal disease. In addition to a cardiac enzyme and EKG evaluation for chest pain patient will have serial CBCs, metabolic profiles and magnesium levels obtained as part of his overall evaluation for acute heart failure. He will also have a BNP obtained for comparison to baseline. (4) Pulmonary edema Qualifiers: Chronicity: acute Qualified Code(s): J81.0 - Acute pulmonary edema Is this a current diagnosis for this admission?: Yes Plan: Patient shows evidence of acute pulmonary edema both on physical exam and his chest x-ray. The pulmonary edema is relatively mild and will be treated with morphine sulfate 2 to 4 mg IV every 2 hours as needed for increased dyspnea or chest pain on a sliding scale basis. Patient will be continued on nitroglycerin paste 1 inch changed to every 6 hours until he goes to dialysis. (5) Hyperlipidemia Qualifiers: Hyperlipidemia type: unspecified Qualified Code(s): E78.5 - Hyperlipidemia, unspecified Is this a current diagnosis for this admission?: Yes Plan: Patient will be continued on his current statin therapy. A lipid profile will be obtained to assess efficacy of his current therapy. (6) Hypertension Qualifiers: Hypertension type: essential hypertension Qualified Code(s): I10 - Essential (primary) hypertension Is this a current diagnosis for this admission?: Yes Plan: Patient will begin continued on his current antihypertensive therapy. His blood pressure was monitored closely throughout his hospital course with changes to treatment made only as absolutely required. (7) HIV (human immunodeficiency virus infection) Qualifiers: HIV symptom status: unspecified Qualified Code(s): B20 - Human immunodeficiency virus [HIV] disease Is this a current diagnosis for this admission?: Yes Plan: Patient will be continued on his current HIV therapy. (8) Anemia in chronic kidney disease, on chronic dialysis Is this a current diagnosis for this admission?: Yes Plan: Patient will be continued on current therapy per Dr. Pablo Lowe's recommendations. (9) Tobacco abuse Is this a current diagnosis for this admission?: Yes Plan: Smoking cessation is advised and counseled briefly. A nicotine replacement patch is available for the patient's use. - Time Time Spent with patient: 25-34 minutes Smoking Cessation Education: 3 to 10 minutes Medications reviewed and adjusted accordingly: Yes Anticipated discharge: Home - Inpatient Certification Based on my medical assessment, after consideration of the patient's comorbidities, presenting symptoms, or acuity I expect that the services needed warrant INPATIENT care.: Yes I certify that my determination is in accordance with my understanding of Medicare's requirements for reasonable and necessary INPATIENT services [42 CFR 412.3e].: Yes Medical Necessity: Significant Comorbidiites Make Outpatient Treatment Too Risky, Need Close Monitoring Due to Risk of Patient Decompensation, Need For Continuous Telemetry Monitoring, Need for Pain Control, Risk of Complication if Not Cared For in Hospital, Risk of Diagnosis Which Will Require Inpatient Eval/Care/Monitoring
--- NOTE | 2019-01-15 07:03 | ADVANCED CARE ---
- Diagnosis (1) Chest pain Diagnosis Current: Yes (2) ESRD needing dialysis Diagnosis Current: Yes (3) Acute on chronic combined systolic and diastolic heart failure Diagnosis Current: Yes (4) Pulmonary edema Diagnosis Current: Yes (5) Hyperlipidemia Diagnosis Current: Yes (6) Hypertension Diagnosis Current: Yes (7) HIV (human immunodeficiency virus infection) Diagnosis Current: Yes (8) Anemia in chronic kidney disease, on chronic dialysis Diagnosis Current: Yes (9) Tobacco abuse Diagnosis Current: Yes Attendance: Patient and myself Resuscitation Status: Full Code Discussion: After discussion with patient is determined that he wishes to remain full code resuscitation status as his CODE STATUS for the remainder of his hospitalization in the event of a cardiac or respiratory arrest. Additionally he wishes to name Deon Peraza as his designated medical surrogate decision-maker. At this time he is not interested in discussing a living will. Care Planning Goals: 1. The patient will maintain a full code resuscitation CODE STATUS throughout his hospital course. 2. Deon Peraza will be named as the patient's designated surrogate medical decision-maker. Document(s) Completed: The following information is entered into the patient's permanent medical record and current medical orders via EMR purchase order checker: 1. The patient will maintain a full code resuscitation CODE STATUS throughout his hospital course. 2. Deon Peraza will be named as the patient's designated surrogate medical decision-maker. Time Spent: 7 minutes
[2019-01-15] MEDS: LEVALBUTEROL HCL NEB 0.63 MG/3 ML AMPUL NEB PRN (07:47)
[2019-01-15 08:40] LABS: CHOLESTEROL 182.57 mg/dL (0-200); TRIGLYCERIDES 105 mg/dL (<150)
[2019-01-15 08:52] LABS: DIRECT LDL 92 mg/dL (<100)
[2019-01-15 08:58] LABS: CREATINE KINASE MB 2.37 ng/mL (<4.55); TROPONIN I 0.088 ng/mL
[2019-01-15] MEDS: DOCUSATE SODIUM 100 MG CAPSULE PO SCH ×2 (12:53→17:09)
--- NOTE | 2019-01-15 13:01 | PDOC CONSULTATION ---
Consultation Consult Date: 01/15/19 Provider Consulted: Celeste LOWE Consult reason:: HD History of Present Illness Admission Date/PCP: 01/15/19 04:22 ARUN MORA History of Present Illness: KRISTY CANTU is a 63 year old male With a past history of ESRD on dialysis, HIV, hypertension, noncompliance, COPD, history of pulmonary embolism, history of CAD/CHF was admitted with history of chest pains. He complained of sharp anterior left-sided chest pain radiating to his right arm. It was apparently not relieved with nitroglycerin. He was then given morphine in the ER. Currently he is chest pain-free undergoing dialysis without any issues. He says he stopped using cocaine now for a few months. His tox screen was negative for cocaine. He has had a bad history of that in the past and has been admitted with history of severe hypertension and chest pains. Past Medical History Cardiac Medical History: Reports: CHF-Diastolic, Coronary Artery Disease, DVT, Hyperlipidemia, Hypertension-primary, Myocardial Infarction, Peripheral Vascular Disease, Pulmonary Embolism Denies: Atrial Fibrillation Pulmonary Medical History: Reports: Bronchitis, Chronic Obstructive Pulmonary Disease (COPD), Pneumonia, Respiratory Failure Denies: Asthma, Sleep Apnea EENT Medical History: Denies: Cataracts, Ears - Hearing aids Neurological Medical History: Denies: Hemorrhagic CVA, Ischemic CVA, Migraine, Multiple Sclerosis, Seizures Endocrine Medical History: Reports: Diabetes Mellitus Type 2 - insulin dependent Denies: Hyperthyroidism, Hypothyroidism Complications of Diabetes: Reports: None Renal/ Medical History: Reports: End Stage Renal Disease - Dialysis MWF with Dr. Pablo Lowe, Hyperphosphatemia, Metabolic Acidosis, Secondary Hyperparathyroidism Denies: Nephrolithiasis Malignancy Medical History: Reports: None GI Medical History: Reports: Gastroesophageal Reflux Disease Denies: Cirrhosis, Crohn's Disease, Hepatitis, Ulcerative Colitis Musculoskeltal Medical History: Reports: Arthritis Denies: Fibromyalgia Skin Medical History: Denies: Eczema, Psoriasis Psychiatric Medical History: Reports: Depression, Substance Abuse, Tobacco Dependency Denies: Alcohol Dependency Traumatic Medical History: Reports: None Denies: Traumatic Brain Injury Infectious Medical History: Reports: HIV Hematology Medical History: Reports Anemia of Chronic Kidney Disease Past Surgical History Past Surgical History: Reports: Dialysis Access Surgery AVF, Orthopedic Surgery - bilateral amputation, R BKA, L AKA, Vascular Surgery - left arm clot removed, IVC filter, thrombectomy 05/18/2018 left arm Denies: Other - Endoscopy, dialysis shunt/tunnel graft Social History Lives with: Spouse/Significant other, Friend Smoking Status: Current Every Day Smoker Cigars Per Day: 6 Frequency of Alcohol Use: None Hx Recreational Drug Use: Yes - Last used 09/26/18 Drugs: Cocaine Hx Prescription Drug Abuse: No - Advance Directive Resuscitation Status: Full Code Family History Parental Family History Reviewed: Yes - Negative for ESRD. Children Family History Reviewed: No Sibling(s) Family History Reviewed.: No Medication/Allergy Home Medications: Abacavir Sulfate [Abacavir 300 mg Tablet] 300 mg PO Q12 07/15/18 Clonidine [Catapres-Tts 3 (0.3 mg/24 Hr) Transderm Patch] 1 patch TD FR@1000 07/15/18 Dolutegravir Sodium [Tivicay] 50 mg PO DAILY 07/15/18 Isosorbide Mononitrate [Isosorbide Mononitrate ER] 120 mg PO DAILY 07/15/18 Nitroglycerin [Nitrostat 0.4 mg (1/150 Gr) Tabs 25/Bottle] 1 tab SL Q5MP PRN 07/15/18 Albuterol Sulfate [Proair HFA Inhalation Aerosol 8.5 gm MDI] 2 puff IH Q6HP PRN 07/27/18 Calcium Acetate 667 mg PO MEALS 07/27/18 Lamivudine [Epivir] 5 ml PO DAILY 07/27/18 Chlorthalidone [Hygroton 25 mg Tablet] 25 mg PO BID 01/15/19 Warfarin Sodium [Coumadin] 6 mg PO QHS 01/15/19 Allergies/Adverse Reactions: calcitriol Allergy (Verified 08/31/18 14:27) itching Review of Systems Constitutional: PRESENT: anorexia, headache(s). ABSENT: chills, fatigue, fever(s), night sweats, weakness Nose, Mouth, and Throat: ABSENT: mouth pain, sore throat Cardiovascular: ABSENT: chest pain, dyspnea on exertion, edema, orthropnea, palpitations Respiratory: ABSENT: cough, dyspnea, hemoptysis Gastrointestinal: PRESENT: constipation. ABSENT: abdominal pain, bloating, diarrhea, heartburn, hematemesis, nausea, vomiting Genitourinary: ABSENT: difficulty urinating, dysuria, hematuria Musculoskeletal: ABSENT: back pain Integumentary: ABSENT: diaphoresis, erythema, lesions, pruritus, rash, wounds Neurological: ABSENT: abnormal gait, abnormal movements, abnormal speech, confusion, convulsions, focal weakness, frequent falls, lack of coordination, vertigo Psychiatric: ABSENT: hallucinations, suicidal ideation Hematologic/Lymphatic: ABSENT: easy bleeding, easy bruising, lymphadenopathy Allergic/Immunologic: PRESENT: seasonal rhinorrhea Physical Exam Vital Signs: Temp Pulse Resp BP Pulse Ox 98.2 F 106 H 24 H 184/101 H 97 01/15/19 06:39 01/15/19 07:47 01/15/19 07:47 01/15/19 06:39 01/15/19 07:47 Intake & Output 01/14/19 01/15/19 01/16/19 06:59 06:59 06:59 Intake Total 0 360 Balance 0 360 Weight 74.8 kg General appearance: PRESENT: no acute distress Eye exam: PRESENT: EOMI, PERRLA Ear exam: PRESENT: normal external ear exam Mouth exam: PRESENT: moist, neck supple Neck exam: ABSENT: lymphadenopathy, meningismus, tenderness, thyromegaly, tracheal deviation Respiratory exam: PRESENT: clear to auscultation ramila, decreased breath sounds. ABSENT: accessory muscle use, crackles Cardiovascular exam: PRESENT: +S1, +S2 GI/Abdominal exam: PRESENT: normal bowel sounds, soft. ABSENT: organomegaly, tenderness Extremities exam: ABSENT: pedal edema - Of his thighs as he has bilateral amputee AKA. Neurological exam: PRESENT: alert, awake, oriented to person, oriented to place Psychiatric exam: PRESENT: appropriate affect Skin exam: ABSENT: cyanosis, erythema, mottled, rash Results Laboratory Results: 01/15/19 02:06 01/15/19 02:06 01/15/19 01/15/19 01/15/19 02:06 02:06 07:35 WBC 7.6 RBC 3.69 L Hgb 11.5 L Hct 33.7 L MCV 91 MCH 31.2 MCHC 34.2 RDW 14.8 H Plt Count 191 Seg Neutrophils % 48.5 Lymphocytes % 32.6 Monocytes % 13.7 H Eosinophils % 4.9 Basophils % 0.3 Absolute Neutrophils 3.7 Absolute Lymphocytes 2.5 Absolute Monocytes 1.0 Absolute Eosinophils 0.4 Absolute Basophils 0.0 Sodium 141.3 Potassium 4.0 Chloride 106 Carbon Dioxide 21 L Anion Gap 14 BUN 56 H Creatinine 7.61 H Est GFR ( Amer) 9 L Est GFR (Non-Af Amer) 7 L Glucose 91 Calcium 7.8 L Total Bilirubin 0.4 AST 30 ALT 25 Alkaline Phosphatase 79 Total Protein 7.9 Albumin 4.2 Triglycerides 105 Cholesterol 182.57 LDL Cholesterol Direct 92 VLDL Cholesterol 21.0 HDL Cholesterol 56 01/15/19 01/15/19 01/15/19 02:06 07:35 07:35 Creatine Kinase 187 H CK-MB (CK-2) 2.37 Troponin I 0.086 0.088 NT-Pro-B Natriuret Pep [id number] H Impressions: Chest X-Ray 01/15/19 01:46 IMPRESSION: Improved aeration of the right lung base. Minimal residual airspace opacity persists. Mild prominence of the pulmonary interstitium, likely reflecting mild interstitial edema copyright 2011 [employer]- All Rights Reserved Assessment & Plan - Diagnosis (1) Chest pain Qualifiers: Chest pain type: unspecified Qualified Code(s): R07.9 - Chest pain, unspecified Plan: As per hospitalist.Currently chest pain-free and stable. (2) ESRD needing dialysis Is this a current diagnosis for this admission?: Yes Plan: Patient currently undergoing dialysis without any issues. Dialysis is being supervised to ensure safe and smooth procedure. Vital signs are stable. Plan to remove between 2 and 3 L as tolerated. Dialysis orders were reviewed with the treating dialysis nurse. (3) Hypertensive urgency Plan: Patient on antihypertensives. See response to dialysis as well. (4) Anemia in chronic kidney disease, on chronic dialysis Is this a current diagnosis for this admission?: Yes Plan: Stable. No indication for erythropoietin now. (5) HIV (human immunodeficiency virus infection) Qualifiers: HIV symptom status: unspecified Qualified Code(s): B20 - Human immunodeficiency virus [HIV] disease Is this a current diagnosis for this admission?: Yes Plan: On HAART. (6) Hx pulmonary embolism Plan: Should be on prophylactics.
[2019-01-15 14:31] LABS: CREATINE KINASE MB 2.17 ng/mL (<4.55); TROPONIN I 0.087 ng/mL
--- NOTE | 2019-01-15 14:35 | PDOC PROGRESS REPORT ---
Subjective Progress Note for:: 01/15/19 Reason For Visit: CHEST PAIN, ACUTE ON CHRONIC COMBINED SYSTOLIC AND Physical Exam Vital Signs: Temp Pulse Resp BP Pulse Ox 98.5 F 117 H 20 152/87 H 98 01/15/19 13:23 01/15/19 13:23 01/15/19 13:23 01/15/19 13:23 01/15/19 13:23 Intake & Output 01/14/19 01/15/19 01/16/19 06:59 06:59 06:59 Intake Total 0 360 Balance 0 360 Weight 74.8 kg Results Laboratory Results: 01/15/19 02:06 01/15/19 02:06 01/15/19 01/15/19 01/15/19 02:06 02:06 07:35 WBC 7.6 RBC 3.69 L Hgb 11.5 L Hct 33.7 L MCV 91 MCH 31.2 MCHC 34.2 RDW 14.8 H Plt Count 191 Seg Neutrophils % 48.5 Lymphocytes % 32.6 Monocytes % 13.7 H Eosinophils % 4.9 Basophils % 0.3 Absolute Neutrophils 3.7 Absolute Lymphocytes 2.5 Absolute Monocytes 1.0 Absolute Eosinophils 0.4 Absolute Basophils 0.0 Sodium 141.3 Potassium 4.0 Chloride 106 Carbon Dioxide 21 L Anion Gap 14 BUN 56 H Creatinine 7.61 H Est GFR ( Amer) 9 L Est GFR (Non-Af Amer) 7 L Glucose 91 Calcium 7.8 L Total Bilirubin 0.4 AST 30 ALT 25 Alkaline Phosphatase 79 Total Protein 7.9 Albumin 4.2 Triglycerides 105 Cholesterol 182.57 LDL Cholesterol Direct 92 VLDL Cholesterol 21.0 HDL Cholesterol 56 01/15/19 01/15/19 01/15/19 02:06 07:35 07:35 Creatine Kinase 187 H CK-MB (CK-2) 2.37 Troponin I 0.086 0.088 NT-Pro-B Natriuret Pep 20355 H 01/15/19 13:43 Creatine Kinase 173 H CK-MB (CK-2) Troponin I NT-Pro-B Natriuret Pep Impressions: Chest X-Ray 01/15/19 01:46 IMPRESSION: Improved aeration of the right lung base. Minimal residual airspace opacity persists. Mild prominence of the pulmonary interstitium, likely reflecting mild interstitial edema copyright 2011 [employer]- All Rights Reserved
[2019-01-15 16:37] LABS: INTERNATIONAL RATION (INR) 1.15; PROTHROMBIN TIME 14.8 SEC (11.4-15.4)
[2019-01-15] MEDS ORDERED: CALCIUM ACETATE 667 MG PO SCH (17:00)
[2019-01-15] MEDS: FUROSEMIDE 80 MG TABLET PO SCH (17:09)
[2019-01-15] MEDS: CALCIUM ACETATE 667 MG CAPSULE PO SCH (17:10)
[2019-01-15] MEDS: CHLORTHALIDONE 25 MG TABLET PO SCH (17:10)
[2019-01-15] MEDS ORDERED: CLONIDINE 0.3 MG/24 HR PATCH.TDWK TD SCH (18:00)
[2019-01-15 20:56] LABS: CREATINE KINASE MB 1.97 ng/mL (<4.55)
[2019-01-15 21:08] LABS: TROPONIN I 0.109 ng/mL
--- NOTE | 2019-01-15 21:53 | PDOC PROGRESS REPORT ---
Subjective Progress Note for:: 01/15/19 Subjective:: The patient is resting in bed. He complains of a headache. He was admitted earlier this morning. He did undergo hemodialysis earlier today. Reason For Visit: CHEST PAIN, ACUTE ON CHRONIC COMBINED SYSTOLIC AND Physical Exam Vital Signs: Temp Pulse Resp BP Pulse Ox 98.7 F 94 18 165/90 H 96 01/15/19 20:13 01/15/19 20:13 01/15/19 20:13 01/15/19 20:13 01/15/19 20:13 Intake & Output 01/14/19 01/15/19 01/16/19 06:59 06:59 06:59 Intake Total 0 1080 Output Total 4050 Balance 0 -2970 Weight 74.8 kg General appearance: PRESENT: cooperative, mild distress, well-developed Head exam: PRESENT: atraumatic, normocephalic Eye exam: PRESENT: conjunctiva pink. ABSENT: scleral icterus Ear exam: PRESENT: normal external ear exam Mouth exam: PRESENT: dry mucosa, tongue midline Respiratory exam: PRESENT: rales - At bases, symmetrical, unlabored. ABSENT: accessory muscle use, rhonchi, tachypnea, wheezes Cardiovascular exam: PRESENT: RRR, +S1, +S2 GI/Abdominal exam: PRESENT: normal bowel sounds, soft. ABSENT: distended, tenderness Rectal exam: PRESENT: deferred Gentrourinary exam: ABSENT: indwelling catheter Extremities exam: PRESENT: other - Bilateral amputations Neurological exam: PRESENT: alert, awake, oriented to person, oriented to place, oriented to time, oriented to situation, CN II-XII grossly intact Psychiatric exam: PRESENT: appropriate affect - Affect reflects his current discomfort. ABSENT: agitated, anxious Focused psych exam: ABSENT: delusional, restlessness Results Laboratory Results: 01/15/19 02:06 01/15/19 02:06 01/15/19 01/15/19 01/15/19 02:06 02:06 07:35 WBC 7.6 RBC 3.69 L Hgb 11.5 L Hct 33.7 L MCV 91 MCH 31.2 MCHC 34.2 RDW 14.8 H Plt Count 191 Seg Neutrophils % 48.5 Lymphocytes % 32.6 Monocytes % 13.7 H Eosinophils % 4.9 Basophils % 0.3 Absolute Neutrophils 3.7 Absolute Lymphocytes 2.5 Absolute Monocytes 1.0 Absolute Eosinophils 0.4 Absolute Basophils 0.0 Sodium 141.3 Potassium 4.0 Chloride 106 Carbon Dioxide 21 L Anion Gap 14 BUN 56 H Creatinine 7.61 H Est GFR ( Amer) 9 L Est GFR (Non-Af Amer) 7 L Glucose 91 Calcium 7.8 L Total Bilirubin 0.4 AST 30 ALT 25 Alkaline Phosphatase 79 Total Protein 7.9 Albumin 4.2 Triglycerides 105 Cholesterol 182.57 LDL Cholesterol Direct 92 VLDL Cholesterol 21.0 HDL Cholesterol 56 01/15/19 01/15/19 01/15/19 02:06 07:35 07:35 Creatine Kinase 187 H CK-MB (CK-2) 2.37 Troponin I 0.086 0.088 NT-Pro-B Natriuret Pep [id number] H 01/15/19 01/15/19 01/15/19 13:43 13:43 20:03 Creatine Kinase 173 H 141 CK-MB (CK-2) 2.17 Troponin I 0.087 NT-Pro-B Natriuret Pep 01/15/19 20:03 Creatine Kinase CK-MB (CK-2) 1.97 Troponin I 0.109 NT-Pro-B Natriuret Pep Impressions: Chest X-Ray 01/15/19 01:46 IMPRESSION: Improved aeration of the right lung base. Minimal residual airspace opacity persists. Mild prominence of the pulmonary interstitium, likely reflecting mild interstitial edema copyright 2010 [employer]- All Rights Reserved Assessment and Plan - Diagnosis (1) Chest pain Qualifiers: Chest pain type: unspecified Qualified Code(s): R07.9 - Chest pain, unspecified Is this a current diagnosis for this admission?: Yes Plan: Patient will be admitted to telemetry unit for serial cardiac enzyme testing and serial EKG's. He will receive morphine sulfate 2 to 4 mg IV every 2 hours as needed for chest pain on a sliding scale basis. A cardiology consultation with Dr. Coker will be obtained. 01/15/2019-patient does have a significant cardiac history. 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 He has not used cocaine over the last several months as he wishes to be placed on a kidney transplant list. From the lock technician. I will discontinue the Nitropaste and put him back on his isosorbide mononitrate 120 mg daily. In addition, he has morphine available for pain and sublingual nitroglycerin. Of note, his troponins were in the 0.08 range. His last troponin was 0.109. This could be due to the stress of dialysis. I will repeat a troponin level tomorrow. His EKGs did not show any acute changes. (2) ESRD needing dialysis Is this a current diagnosis for this admission?: Yes Plan: Patient will be admitted to inpatient services and will receive dialysis as an inpatient with Dr. Pablo Lowe being consulted for nephrology evaluation and treatment. 01/15/2019-the patient did undergo hemodialysis this morning. He states that his breathing is better. His next hemodialysis is due on Friday. (3) Acute on chronic combined systolic and diastolic heart failure Is this a current diagnosis for this admission?: Yes Plan: Patient has strong clinical evidence and radiographic evidence for acute congestive failure based on his pulmonary edema. This is most likely secondary to fluid overload due to his end-stage renal disease. In addition to a cardiac enzyme and EKG evaluation for chest pain patient will have serial CBCs, metab olic profiles and magnesium levels obtained as part of his overall evaluation for acute heart failure. He will also have a BNP obtained for comparison to baseline. 01/15/2019-the patient did have fluid removed with dialysis. With his current medication list and hand I have restarted his isosorbide mononitrate 120 mg daily, metolazone 5 mg daily, carvedilol 25 mg twice daily, nifedipine 90 mg carmelo ly, clonidine 0.3 mg patch changed weekly. He is also on furosemide 80 mg twice daily and hydralazine 100 mg every 8 hours. We will continue to monitor his blood pressure. We will also monitor his urine output. (4) Pulmonary edema Qualifiers: Chronicity: acute Qualified Code(s): J81.0 - Acute pulmonary edema Is this a current diagnosis for this admission?: Yes Plan: Patient shows evidence of acute pulmonary edema both on physical exam and his chest x-ray. The pulmonary edema is relatively mild and will be treated with morphine sulfate 2 to 4 mg IV every 2 hours as needed for increased dyspnea or chest pain on a sliding scale basis. Patient will be continued on nitroglycerin paste 1 inch changed to every 6 hours until he goes to dialysis. 01/07/2019-medications have been resumed as noted above. He also underwent dialysis. He reports breathing better. He still has some rales. This should improve with resumption of his normal medication regimen. Continue to monitor intake and output. (5) HIV (human immunodeficiency virus infection) Qualifiers: HIV symptom status: unspecified Qualified Code(s): B20 - Human immunodeficiency virus [HIV] disease Is this a current diagnosis for this admission?: Yes Plan: Patient will be continued on his current HIV therapy. 01/15/2019-we will resume his antiretroviral medications as listed on the current medication list supplied by hemodialysis. (6) Hyperlipidemia Qualifiers: Hyperlipidemia type: unspecified Qualified Code(s): E78.5 - Hyperlipidemia, unspecified Is this a current diagnosis for this admission?: Yes Plan: Patient will be continued on his current statin therapy. A lipid profile will be obtained to assess efficacy of his current therapy. 01/15/2019-as we do not have Pravachol on formulary I have substituted 20 mg of atorvastatin. He will return to his pravastatin at discharge. (7) Hypertension Qualifiers: Hypertension type: essential hypertension Qualified Code(s): I10 - Essential (primary) hypertension Is this a current diagnosis for this admission?: Yes Plan: Patient will begin continued on his current antihypertensive therapy. His blood pressure was monitored closely throughout his hospital course with changes to treatment made only as absolutely required. 01/15/2019-based on the list of current medications from the hemodialysis center, we have resumed all of the medications listed. We will continue to monitor his blood pressure. (8) Anemia in chronic kidney disease, on chronic dialysis Is this a current diagnosis for this admission?: Yes Plan: Patient will be continued on current therapy per Dr. Pablo Lowe's recomme ndations. 01/15/2019-we will continue to monitor his hemoglobin. Currently he does not have any type of erythropoietin analog listed. I will defer to hematology for management. (9) Tobacco abuse Is this a current diagnosis for this admission?: Yes Plan: Smoking cessation is advised and counseled briefly. A nicotine replacement patch is available for the patient's use. 01/07/2019-continue nicotine patch (10) care home (current) use of anticoagulants Is this a current diagnosis for this admission?: Yes Plan: 01/15/2019-the patient's warfarin has been restarted based on the current medication list. We will check INRs regularly. (11) Frontal headache Is this a current diagnosis for this admission?: Yes Plan: 01/15/2019-the patient has complained of a frontal headache. He does feel that there is some nasal congestion. This is not typical of a nitroglycerin headache however it certainly could be related. We will initiate Flonase therapy to see if we can achieve some relief. - Time Time Spent with patient: 15-24 minutes Medications reviewed and adjusted accordingly: Yes Anticipated discharge: Home
[2019-01-15] MEDS ORDERED: (PENDING PHARMACY ID) (Warfarin Sodium [Coumadin] 6 MG) PO SCH (22:00)
[2019-01-15] MEDS ORDERED: WARFARIN SODIUM 3 MG TABLET PO SCH (22:00)
[2019-01-15] MEDS ORDERED: ABACAVIR SULFATE 300 MG PO SCH (22:00)
[2019-01-15] MEDS ORDERED: ATORVASTATIN CALCIUM 20 MG TABLET PO SCH (22:00)
[2019-01-15] MEDS: CARVEDILOL 12.5 MG TABLET PO SCH (22:17)
[2019-01-15] MEDS: HYDRALAZINE HCL 50 MG TABLET PO SCH (22:18)
[2019-01-16 05:33] LABS: HEMATOCRIT 36.9 % (37.9-51.0); HEMOGLOBIN 12.5 g/dL (13.5-17.0); MEAN CORPUSCULAR HEMOGLOBIN 31.1 pg (27.0-33.4); MEAN CORPUSCULAR HGB CONC 33.7 g/dL (32.0-36.0); MEAN CORPUSCULAR VOLUME 92 fl (80-97); PLATELET COUNT 186 10^3/uL (150-450); RED BLOOD COUNT 4.01 10^6/uL (4.35-5.55); RED CELL DISTRIBUTION WIDTH 14.9 % (11.5-14.0); WHITE BLOOD COUNT 5.3 10^3/uL (4.0-10.5)
[2019-01-16 05:47] LABS: INTERNATIONAL RATION (INR) 1.15; PROTHROMBIN TIME 14.7 SEC (11.4-15.4)
[2019-01-16 05:55] LABS: ANION GAP 16 (5-19); BLOOD UREA NITROGEN 35 mg/dL (7-20); CALCIUM 8.2 mg/dL (8.4-10.2); CARBON DIOXIDE 26 mmol/L (22-30); CHLORIDE 98 mmol/L (98-107); GLUCOSE 95 mg/dL (75-110); POTASSIUM 4.9 mmol/L (3.6-5.0); SODIUM 140.2 mmol/L (137-145)
[2019-01-16] MEDS: PANTOPRAZOLE SODIUM 40 MG TABLET.DR PO SCH (06:30)
[2019-01-16] MEDS: HYDRALAZINE HCL 50 MG TABLET PO SCH (06:30)
[2019-01-16] MEDS: HEPARIN SOD (PORCINE) 5,000 UNIT/ML 1 ML SYRINGE SUBCUT SCH (06:31)
[2019-01-16] MEDS: LEVALBUTEROL HCL NEB 0.63 MG/3 ML AMPUL NEB PRN (09:03)
[2019-01-16] MEDS ORDERED: BUDESONIDE NEB 0.5 MG/2 ML AMPUL NEB ONE ×2 (09:18)
[2019-01-16] MEDS ORDERED: FUROSEMIDE INJ/PF 20 MG/2 ML SDV IV ONE (09:41)
[2019-01-16] MEDS ORDERED: FUROSEMIDE INJ/PF 20 MG/2 ML SDV ONE (09:51)
[2019-01-16] MEDS: CALCIUM ACETATE 667 MG CAPSULE PO SCH ×2 (09:56→12:49)
[2019-01-16] MEDS: CARVEDILOL 12.5 MG TABLET PO SCH (09:58)
[2019-01-16] MEDS: CHLORTHALIDONE 25 MG TABLET PO SCH (09:59)
[2019-01-16] MEDS ORDERED: METOLAZONE 5 MG TABLET PO SCH (10:00)
[2019-01-16] MEDS ORDERED: (PENDING PHARMACY ID) (Dolutegravir Sodium [Tivicay] 50 MG) PO SCH (10:00)
[2019-01-16] MEDS ORDERED: (PENDING PHARMACY ID) (Isosorbide Mononitrate [Isosorbide Mononitrate Er] 120 MG) PO SCH (10:00)
[2019-01-16] MEDS ORDERED: NIFEDIPINE 30 MG TAB.ER.24 PO SCH (10:00)
[2019-01-16] MEDS ORDERED: LAMIVUDINE PO SCH (10:00)
[2019-01-16] MEDS ORDERED: ISOSORBIDE MONONITRATE 60 MG TAB.ER.24H PO SCH (10:00)
[2019-01-16] MEDS: FUROSEMIDE 80 MG TABLET PO SCH (10:15)
[2019-01-16] MEDS: DOCUSATE SODIUM 100 MG CAPSULE PO SCH (10:16)
[2019-01-16] MEDS ORDERED: NITROGLYCERIN 2% OINTMENT 1 GM PACKET TP SCH (12:00)
--- NOTE | 2019-01-16 12:56 | PDOC DISCHARGE SUMMARY ---
General - Admit/Disc Date/PCP Admission Date/Primary Care Provider: 01/15/19 04:22 MATHIEU MACIAS CATTLE BROKER Discharge Date: 01/16/19 - Discharge Diagnosis (1) Chest pain Is this a current diagnosis for this admission?: Yes Summary: There were no acute EKG changes. Patient's troponins were elevated due to his kidney disease. They were higher in September of this year and hit 0.5. The chest pain is most likely noncardiac. It certainly could have been strain due to the volume overload from fluid accumulation. This would have been treated somewhat with dialysis and we will continue his diuretic therapy. (2) ESRD needing dialysis Is this a current diagnosis for this admission?: Yes Summary: The patient was dialyzed yesterday. Hemodialysis removed 3.7 L of fluid. The patient certainly feels better. Because the patient does make urine he is on diuretic therapy. I will give him additional Lasix today to try and resolve the faint rales that he has. I believe this is the etiology of his cough with white frothy sputum. (3) Acute on chronic diastolic heart failure Is this a current diagnosis for this admission?: Yes Summary: Review of the patient's last echocardiogram reveals grade 2/4 diastolic failure with preserved ejection fraction. Treatment will be a combination of medications, dialysis and salt restriction. (4) Pulmonary edema Is this a current diagnosis for this admission?: Yes Summary: Treated with dialysis and resumption of diuretics (5) Anemia in chronic kidney disease, on chronic dialysis Is this a current diagnosis for this admission?: Yes Summary: Hemoglobin currently stable. This is monitored at hemodialysis. Erythropoietin analogs administered accordingly. (6) HIV (human immunodeficiency virus infection) Is this a current diagnosis for this admission?: Yes Summary: Long-standing issue. Continue current antiretroviral medications. (7) Hyperlipidemia Is this a current diagnosis for this admission?: Yes Summary: Continue statin therapy. I believe the patient is on pravastatin at home and he can resume this. The atorvastatin in the hospital was a formulary substitution. (8) Hypertension Is this a current diagnosis for this admission?: Yes Summary: The patient has difficult to treat hypertension. He is on multiple medications. See the medication list. Nephrology manages the majority of his medications. (9) Tobacco abuse Is this a current diagnosis for this admission?: Yes Summary: Encourage tobacco cessation. The patient has stopped cocaine as he wants to be on the transplant list. It would be crucial to stop smoking as well. - Additional Information Resuscitation Status: Full Code Discharge Diet: Cardiac, Other (Comments) Discharge Activity: Activity As Tolerated, Balance Activity w/Rest Home Medications: Abacavir Sulfate [Abacavir 300 mg Tablet] 300 mg PO Q12 07/15/18 Clonidine [Catapres-Tts 3 (0.3 mg/24 Hr) Transderm Patch] 1 patch TD FR@1000 1 09/15/17 Dolutegravir Sodium [Tivicay] 50 mg PO DAILY 07/15/18 Isosorbide Mononitrate [Isosorbide Mononitrate ER] 120 mg PO DAILY 07/15/18 Nitroglycerin [Nitrostat 0.4 mg (1/150 Gr) Tabs 25/Bottle] 1 tab SL Q5MP PRN 07/15/18 Albuterol Sulfate [Proair HFA Inhalation Aerosol 8.5 gm MDI] 2 puff IH Q6HP PRN 07/27/18 Calcium Acetate 667 mg PO MEALS 07/27/18 Lamivudine [Epivir] 5 ml PO DAILY 07/27/18 Chlorthalidone [Hygroton 25 mg Tablet] 25 mg PO BID 01/15/19 Warfarin Sodium [Coumadin] 6 mg PO QHS 01/15/19 Atorvastatin Calcium [Lipitor 20 mg Tablet] 20 mg PO QHS tablet 01/16/19 Carvedilol [Coreg 12.5 mg Tablet] 25 mg PO Q12 tablet 01/16/19 Dolutegravir Sodium [Tivicay] 50 mg PO .DAILY 01/16/19 Furosemide [Lasix 80 mg Tablet] 80 mg PO BID tablet 01/16/19 Hydralazine HCl [Apresoline 50 mg Tablet] 100 mg PO Q8 tablet 01/16/19 Metolazone [Zaroxolyn 5 mg Tablet] 5 mg PO DAILY tablet 01/16/19 Nicotine [Nicoderm 21 mg/24 Hr Transderm Patch] 1 each TD DAILYP PRN patch.td24 01/16/19 Nifedipine [Procardia XL 30 mg Tablet] 90 mg PO DAILY tab.er.24 01/16/19 Nitroglycerin [Nitrol 2% Ointment 1Gm Packet] 1 gm TP Q6 oint..gm. 01/16/19 History of Present Illness Patient complains of: Chest pain History of Present Illness: KRISTY CANTU is a 63 year old male with a complex cardiorenal history. He is on many medications for hypertension as well as congestive failure. He states that prior to midnight on the day before admission he developed worsening shortness of breath including orthopnea and chest pain. He was transported to the emergency department. Investigations revealed pulmonary edema by chest x- ray as well as increased work of breathing. The patient was referred to the hospitalist service for admission with plans of hemodialysis the next day. Hospital Course Hospital Course: The patient did undergo hemodialysis. He was improved. He still had rales and a cough likely from some retained fluid despite dialysis removing 3.7 L of fluid. He does make urine and so I will give him extra furosemide this morning. His troponins are elevated but they are always high and this is likely result of cardiac strain and his kidney failure. There were no acute EKG changes. The patient will be returned to his current medication regimen. He will discharge home. He has dialysis scheduled on Friday. Physical Exam Vital Signs: Temp Pulse Resp BP Pulse Ox 98.4 F 89 18 145/83 H 94 01/16/19 07:42 01/16/19 09:21 01/16/19 09:21 01/16/19 07:42 01/16/19 09:21 Intake & Output 01/15/19 01/16/19 01/17/19 06:59 06:59 06:59 Intake Total 0 1080 Output Total 4150 Balance 0 -3070 Weight 74.8 kg 74.6 kg General appearance: PRESENT: cooperative, mild distress - Congested cough, well- developed Head exam: PRESENT: atraumatic, normocephalic Eye exam: PRESENT: conjunctiva pink, EOMI, other - Wearing glasses. ABSENT: scleral icterus Ear exam: PRESENT: normal external ear exam Mouth exam: PRESENT: moist, tongue midline Respiratory exam: PRESENT: rales - Faint at bases, symmetrical, unlabored, other - Consistent cough. ABSENT: tachypnea, wheezes Cardiovascular exam: PRESENT: RRR, +S1, +S2 GI/Abdominal exam: PRESENT: normal bowel sounds, soft. ABSENT: distended, tenderness Rectal exam: PRESENT: deferred Gentrourinary exam: ABSENT: indwelling catheter Extremities exam: PRESENT: other - Bilateral lower extremity amputations Neurological exam: PRESENT: alert, awake, oriented to person, oriented to place, oriented to time, oriented to situation, CN II-XII grossly intact Psychiatric exam: PRESENT: appropriate affect, normal mood. ABSENT: agitated, anxious Focused psych exam: PRESENT: restlessness. ABSENT: delusional Skin exam: PRESENT: dry, normal color, warm. ABSENT: rash Results Laboratory Results: 01/16/19 05:08 01/16/19 05:08 01/16/19 01/16/19 05:08 05:08 WBC 5.3 RBC 4.01 L Hgb 12.5 L Hct 36.9 L MCV 92 MCH 31.1 MCHC 33.7 RDW 14.9 H Plt Count 186 Sodium 140.2 Potassium 4.9 Chloride 98 Carbon Dioxide 26 Anion Gap 16 BUN 35 H Creatinine 6.47 H Est GFR ( Amer) 11 L Est GFR (Non-Af Amer) 9 L Glucose 95 Calcium 8.2 L Magnesium 2.2 01/15/19 01/15/19 01/15/19 02:06 07:35 07:35 Creatine Kinase 187 H CK-MB (CK-2) 2.37 Troponin I 0.086 0.088 NT-Pro-B Natriuret Pep 78543 H 01/15/19 01/15/19 01/15/19 13:43 13:43 20:03 Creatine Kinase 173 H 141 CK-MB (CK-2) 2.17 Troponin I 0.087 NT-Pro-B Natriuret Pep 01/15/19 01/16/19 20:03 05:08 Creatine Kinase CK-MB (CK-2) 1.97 Troponin I 0.109 0.118 NT-Pro-B Natriuret Pep Impressions: Chest X-Ray 01/15/19 01:46 IMPRESSION: Improved aeration of the right lung base. Minimal residual airspace opacity persists. Mild prominence of the pulmonary interstitium, likely reflecting mild interstitial edema copyright 2011 [employer]- All Rights Reserved Qualifiers - * PATIENT BEING DISCHARGED WITH ANY OF THE FOLLOWING DIAGNOSIS: No Acute Heart Failure - Is this a Heart Failure Patient?: No Plan Discharge Plan: Discharge to home on current medication regimen. We had a long discussion about sodium that is contained in foods that people may not be aware of. 1 of these sources is cold cuts. He states that he does have a bologna sandwich once in a while. This has a lot of sodium. He will need to be more careful. He acknowledges that information. Time Spent: Greater than 30 Minutes
[2019-01-16 13:02] VITALS: BP 145/83
--- NOTE | 2019-01-17 00:07 | EKG REPORT ---
SEVERITY:- ABNORMAL ECG - SINUS TACHYCARDIA PROBABLE LEFT ATRIAL ABNORMALITY LEFT ANTERIOR FASCICULAR BLOCK LEFT VENTRICULAR HYPERTROPHY PROLONGED QT INTERVAL : Confirmed by: Beulah Storm 17-Jan-2019 00:07:22
--- NOTE | 2019-01-17 00:09 | EKG REPORT ---
SEVERITY:- ABNORMAL ECG - SINUS TACHYCARDIA PROBABLE LEFT ATRIAL ABNORMALITY LEFT ANTERIOR FASCICULAR BLOCK LVH WITH SECONDARY REPOLARIZATION ABNORMALITY PROLONGED QT INTERVAL : Confirmed by: Beulah Storm 17-Jan-2019 00:07:31
== END 2019-01-16 13:30 | disposition home or self-care (01) | DRG 291 ==
LOC: ER 01:31 → EH 04:22 → OBSVTOIN 04:22 → 5 06:28
PROVIDERS: ADMIT Emergency Medicine; ATTEND Emergency Medicine
PROC: 5A1D70Z Performance of Urinary Filtration, Intermittent, Less than 6 Hours Per Day (ICD-10-PCS; principal; 2019-01-15)
DX: I13.2 Hypertensive heart and chronic kidney disease with heart failure and with stage 5 chronic kidney disease, or end stage renal disease (principal); N18.6 End stage renal disease; I50.33 Acute on chronic diastolic (congestive) heart failure; E11.22 Type 2 diabetes mellitus with diabetic chronic kidney disease; Z99.2 Dependence on renal dialysis; I25.10 Atherosclerotic heart disease of native coronary artery without angina pectoris; I25.2 Old myocardial infarction; E78.5 Hyperlipidemia, unspecified; E11.51 Type 2 diabetes mellitus with diabetic peripheral angiopathy without gangrene; D63.1 Anemia in chronic kidney disease; Z86.718 Personal history of other venous thrombosis and embolism; Z21 Asymptomatic human immunodeficiency virus [HIV] infection status; I16.0 Hypertensive urgency; F17.210 Nicotine dependence, cigarettes, uncomplicated; K21.9 Gastro-esophageal reflux disease without esophagitis; M19.90 Unspecified osteoarthritis, unspecified site; F32.9 Major depressive disorder, single episode, unspecified; Z89.511 Acquired absence of right leg below knee; Z89.612 Acquired absence of left leg above knee; Z83.3 Family history of diabetes mellitus; Z82.49 Family history of ischemic heart disease and other diseases of the circulatory system; Z86.711 Personal history of pulmonary embolism; Z79.02 Long term (current) use of antithrombotics/antiplatelets; Z79.899 Other long term (current) drug therapy
CPT/HCPCS: 36415; 71045; 80048; 80053; 80061; 80307; 82550; 82553; 83735; 83880; 84484; 85025; 85027; 85610; 93005; 93010; 94640; 99285; J0360; J1644; J1940; J2270; J2405; J3490; J7614; J7620

== ENCOUNTER 2019-02-05 08:05 | Inpatient (IN) | payer MEDICARE, MEDICAID ==
[2019-02-05] MEDS ORDERED: ASPIRIN 81 MG TABLET, CHEWABLE PO ONE (08:08)
--- NOTE | 2019-02-05 08:37 | ER Document Report ---
HPI - HPI Patient complains to provider of: chest pain, sob Time Seen by Provider: 02/05/19 08:26 Onset: This morning Onset/Duration: Sudden, Persistent, Waxing and waning Quality of pain: Pressure Severity: Moderate Associated Symptoms: Chest pain, Productive cough, Nausea, Shortness of breath Exacerbated by: Movement, Deep breathing Relieved by: Sitting, Remaining still Similar symptoms previously: Yes Recently seen / treated by doctor: No Notes: 63-year-old male with multiple comorbidities to include HIV with noncompliance with his medications since he has run out over a week ago-he doesn't know his last cd4 count or viral load, hx of CHF, COPD not on home oxygen, history of PE and DVT in the past noncompliant with Coumadin as he is ran out of his Coumadin about a week ago also along with most of his other meds. Here today for s ubsternal nonradiating chest pain and shortness of breath since about 4 this morning. Pain is worse with deep breathing. He states he has also had some increased dypsnea on exertion over the last several days to the point he is not able to do his ADLs and could not go to dialysis today secondary to his increasing shortness of breath so he came to the ER for evaluation. He has not had a stress test it appears since 2014. He denies any syncope or altered mental status. He states he has tried to call his PCP for refills of his medications but he cannot remember his PCPs name and PCP apparently not refilling medications electronically to the pharmacy per his pharmacy. He is also had a mild light frothy productive cough. He was recently on some unknown antibiotic a couple weeks ago for concern of possible bronchitis however he states his cough has persisted. 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 He still does make urine. He gets his dialysis Friday, Friday, and Friday however he did not get his dialysis again today secondary to his worsening symptoms so he came here for evaluation. No fall or trauma. No other changes in medication or diet. He also states he has some abdominal pain and bloating. Bowel movements are normal. Denies any urinary symptoms. No penile discharge or lesions/testicular pain or swelling. No other complaints at this time. He has not taken anything for his symptoms. He was given aspirin and nitro in route. He did have some relief of his symptoms and pain with this. - ROS Systems Reviewed and Negative: Yes All other systems reviewed and negative - to include 10 systems, unless mentioned in the hpi Past Medical History - General Information source: Patient - Social History Smoking Status: Unknown if Ever Smoked Frequency of alcohol use: unknown Drug Abuse: Cocaine - past Lives with: Other - at home, unknown if alone or not Family History: CAD, CVA, DM, Hyperlipidemia, Hypertension, Malignancy Patient has suicidal ideation: No Patient has homicidal ideation: No - Past Medical History Cardiac Medical History: Reports: Hx Congestive Heart Failure - EF is 40%, with moderate diastolic dysfunction, Hx Coronary Artery Disease, Hx DVT, Hx Heart Attack, Hx Hypercholesterolemia, Hx Hypertension, Hx Peripheral Vascular Disease, Hx Pulmonary Embolism Denies: Hx Atrial Fibrillation Pulmonary Medical History: Reports: Hx Bronchitis, Hx COPD, Hx Pneumonia, Hx Respiratory Failure Denies: Hx Asthma, Hx Sleep Apnea Neurological Medical History: Denies: Hx Migraine, Hx Seizures Endocrine Medical History: Reports: Hx Diabetes Mellitus Type 1 - insulin. Denies: Hx Hyperthyroidism, Hx Hypothyroidism Renal/ Medical History: Reports: Hx End Stage Renal Disease - Dialysis MWF with Dr. Pablo Lowe, Hx Hemodialysis, Hx Renal Insufficiency. Denies: Hx Peritoneal Dialysis GI Medical History: Reports: Hx Gastroesophageal Reflux Disease. Denies: Hx Cirrhosis, Hx Crohn's Disease, Hx Hepatitis, Hx Ulcerative Colitis Musculoskeletal Medical History: Reports Hx Arthritis, Denies Hx Fibromyalgia, 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 bilat AKA, Reports Hx Musculoskeletal Trauma Skin Medical History: Denies Hx Eczema, Denies Hx Psoriasis Psychiatric Medical History: Reports: Hx Depression Traumatic Medical History: Denies: Hx Traumatic Brain Injury Infectious Medical History: Reports: Hx HIV - noncompliant with meds. Denies: Hx Hepatitis Past Surgical History: Reports: Hx Orthopedic Surgery - bilateral amputation, R BKA, L AKA, Hx Vascular Surgery - left arm clot removed, IVC filter, thrombectomy 05/18/2018 left arm,. Denies: Other - Endoscopy, dialysis shunt /tunnel graft-right ax-fem bypass-chron occluded - Immunizations Immunizations up to date: Yes Hx Diphtheria, Pertussis, Tetanus Vaccination: Yes Hx Pneumococcal Vaccination: 07/21/10 Vertical Provider Document - CONSTITUTIONAL Notes: >>>> PHYSICAL_EXAM: GENERAL_APPEARANCE: well_nourished, alert, cooperative, no_acute_distress, no_obvious_discomfort. pleasant, obese middle aged appearing black male, with bilat AKAs it appears, sitting up in bed, smiling, speaking in full sentences, in no sign of pain or resp distress, no one is with him VITALS: reviewed, see vital signs table. HEAD: no_swelling\tenderness on the head. normocephalic. atraumatic. no stevenson signs. no raccoons eyes. EYES: PERRL, EOMI, conjunctiva_clear. NOSE: no_nasal_discharge. MOUTH: (-)decreased moisture. THROAT: no_tonsilar_inflammation, no_airway_obstruction. no_lymphadenopathy NECK: supple, no_neck_tenderness, full rom. full strength. no jvd. no meningeal signs. BACK: no_back_tenderness. CHEST_WALL: no_chest_tenderness. no overlying skin changes LUNGS: slight crackles at bases (-)accessory muscle use, good air exchange bilateral. HEART: normal_rate, normal_rhythm, ABDOMEN: normal_BS, soft, no_abd_tenderness, (-)guarding, (-)rebound, no distension or peritoneal signs. no cva ttp EXTREMITIES: strength 5/5 in all_extremities, good pulses in all_extremities, no_swelling\tenderness in the extremities, no_edema. full rom. gait not assessed due to known chronic bilat lower extremity AKAs, good pulses. brisk cap refill. 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 NEURO: motor and sensation intact, cranial nerves 2-12 intact, cerebellar fxn intact SKIN: warm, dry, good_color, no_rash. no grossly visible overlying skin changes or signs of trauma. MENTAL_STATUS: speech_clear, oriented_X_3, normal_affect, responds_appropriately to questions. - INFECTION CONTROL TRAVEL OUTSIDE OF THE [place] IN LAST 30 DAYS: No Course - Re-evaluation Re-evalutation: pt here for worsening cp, sob, and jaimes, due for dialysis today. couldn't make it today due to worsening sob, jaimes, and cp so he came here. no recent stress per pt. hx of chronic elevated trop leak due to chronic heart strain per prior notes, and chronically elevated bnp, also chronic anemia, all unchanged. he has a hx of medication noncompliance and has been off his hiv meds and blood thin ners for atleast a week now. has a hx pe's/dvts in the past. also states he has been out of most of his other meds also. it does appear he is fluid overloaded. labs otherwise unremarkable from his baseline. he did have some improvement of his cp with asa and nitro. secondary to his hx of pe's and now with worsening cp and sob, ed attending, dr clifford, and i did proceed with a cta of the chest to r ule out acute pe, he is a dialysis pt, and dr renteria, nephrology, did agree to be able to dialyze the pt in house, right after he got his contrasted ct so this was done after, his ct was neg for acute pe and showed his chronic occluded ax- fem bypass, but was otherwise neg for anything acute per rad and reviewed by myself. cxr showed some cardiomegaly but was otherwise neg per rad and reviewed by myself. he denies any cp to me currently. he has normal o2 sats on ra with no increased work of breathing. ekg unremarkable other than some mild flipped t waves in v6 that may appear new per dr clifford. given his need for dialysis, cp, sob, risk factors, medical receptionist of contrast, we do feel it is best to admit the pt to get him tuned back up and give him his best shot at best out come given he is also out of most of his meds to include his hiv meds. no fevers. no ams. pt understands and agrees to plan. case discussed with hospitalist, dr houston who informed me to call his partner, dr mendes, hospitalist, for admission. dr mendes did graciously agree to accept the pt to their service once he finished dialyzing today for further work up and tx. care transferred to hospitalist in stable condition. vss. please refer to their note for further details of the visit. heart score: 7 On reexam, pt remained stable. nontoxic. well appearing. pain free. npo until ct resulted. then likely cardiac and diabetic diet per hospitalist. case discussed with ER Attending, Dr. clifford, who directed and agrees with plan of care and advised to admit the pt for dialysis, acs rule out with serial cardiac enz/stress/cath, and to attempt to normalize his fluid overload. Documentation achieved through voice recording which my lead to some occasional accidental typographical errors. Extensive efforts have been made to proof read documentation to make sure these are the least as possible. Category Date Time Status Continuous Cardiac Monitoring (ED) CONTINUOUS Care 02/05/19 08:08 Completed EKG Documentation STAT Care 02/05/19 08:08 Completed Oxygen (ED) Nasal Cannula 2 lpm Care 02/05/19 08:08 Active Pulse Oximeter Continuous (ED) CONTINUOUS Care 02/05/19 08:08 Active Saline Lock (ED) NOW Care 02/05/19 08:08 Active CHEST 2 VIEWS [RAD] Stat Exams 02/05/19 08:27 Completed CTA CHEST [CT] Stat Exams 02/05/19 10:47 Completed ADD ON [ADD ON TESTING BLD IN LAB] [CHEM] Stat Lab 02/05/19 10:03 Completed BNP (In-House) [NT PRO BNP] [CHEM] Stat Lab 02/05/19 10:03 Completed CBC WITH DIFF [HEME] Stat Lab 02/05/19 10:03 Completed COMPREHENSIVE METABOLIC PANEL [CHEM] Stat Lab 02/05/19 10:03 Completed CREATINE KINASE MB [CHEM] Stat Lab 02/05/19 10:03 Completed CREATINE KINASE [CHEM] Stat Lab 02/05/19 10:03 Completed LIPASE [CHEM] Stat Lab 02/05/19 10:03 Completed MAGNESIUM [CHEM] Stat Lab 02/05/19 10:03 Completed PROTHROMBIN TIME/INR [COAG] Stat Lab 02/05/19 10:03 Completed PTT [PARTIAL THROMBOPLASTIN TIME] [COAG] Stat Lab 02/05/19 10:03 Completed T4 [FREE T4 (FREE THYROXINE)] [CHEM] Stat Lab 02/05/19 10:03 Completed TROPONIN I [CHEM] Stat Lab 02/05/19 10:03 Completed TROPONIN I [CHEM] Stat Lab 02/05/19 12:08 Ordered TSH [THYROID STIMULATING HORMONE] [CHEM] Stat Lab 02/05/19 10:03 Completed URINALYSIS [URIN] Stat Lab 02/05/19 09:47 Completed URINE DRUG SCREEN [CHEM] Stat Lab 02/05/19 09:47 Completed Aspirin [Aspirin 81 mg Chewable Tablet] Med 02/05/19 08:08 Discontinued 324 mg PO NOW ONE EKG ER ONLY [ER] Stat Oth 02/05/19 Completed EKG ER ONLY [ER] Stat Oth 02/05/19 08:08 Ordered 02/06/19 02:15 02/06/19 02:33 02/06/19 02:47 - Vital Signs Vital signs: 02/05/19 14:12 Temp Resp BP Pulse Ox 02/05/19 09:01 28 H 98 02/05/19 09:00 23 H 137/82 H 98 02/05/19 08:59 29 H 98 02/05/19 08:16 98.2 F 21 H 135/87 H 98 02/05/19 08:15 12 97 02/06/19 02:31 Temp Resp BP Pulse Ox 02/05/19 09:01 28 H 98 02/05/19 09:00 23 H 137/82 H 98 02/05/19 08:59 29 H 98 02/05/19 08:16 98.2 F 21 H 135/87 H 98 02/05/19 08:15 12 97 Temp Pulse Resp BP Pulse Ox 98.2 F 80 28 H 137/82 H 98 02/05/19 17:48 02/05/19 17:48 02/05/19 17:48 02/05/19 09:00 02/05/19 17:48 - Laboratory Result Diagrams: 02/05/19 10:03 02/05/19 10:03 Laboratory results interpreted by me: 02/05/19 14:12 Labs- All tests 24 hr 02/05/19 02/05/19 02/05/19 09:47 09:47 10:03 WBC 6.5 RBC 3.74 L Hgb 11.6 L Hct 33.8 L MCV 90 MCH 30.9 MCHC 34.2 RDW 14.8 H Plt Count 171 Seg Neutrophils % 54.2 Lymphocytes % 30.1 Monocytes % 11.2 Eosinophils % 3.7 Basophils % 0.8 Absolute Neutrophils 3.5 Absolute Lymphocytes 2.0 Absolute Monocytes 0.7 Absolute Eosinophils 0.2 Absolute Basophils 0.1 PT INR APTT Sodium Potassium Chloride Carbon Dioxide Anion Gap BUN Creatinine Est GFR ( Amer) Est GFR (Non-Af Amer) Glucose Calcium Magnesium Total Bilirubin Direct Bilirubin Neonat Total Bilirubin Neonat Direct Bilirubin Neonat Indirect Bili AST ALT Alkaline Phosphatase Creatine Kinase CK-MB (CK-2) Troponin I NT-Pro-B Natriuret Pep Total Protein Albumin Lipase TSH Free T4 Urine Color YELLOW Urine Appearance CLEAR Urine pH 7.0 Ur Specific [place] 1.012 Urine Protein 100 H Urine Glucose (UA) 50 H Urine Ketones NEGATIVE Urine Blood NEGATIVE Urine Nitrite NEGATIVE Urine Bilirubin NEGATIVE Urine Urobilinogen NEGATIVE Ur Leukocyte Esterase NEGATIVE Urine WBC (Auto) 1 Squamous Epi Cells Auto <1 Urine Mucus (Auto) RARE Urine Ascorbic Acid NEGATIVE Urine Opiates Screen NEGATIVE Urine Methadone Screen NEGATIVE Ur Barbiturates Screen NEGATIVE Ur Phencyclidine Scrn NEGATIVE Ur Amphetamines Screen NEGATIVE U Benzodiazepines Scrn NEGATIVE Urine Cocaine Screen NEGATIVE U Marijuana (THC) Screen NEGATIVE 02/05/19 02/05/19 02/05/19 10:03 10:03 10:03 WBC RBC Hgb Hct MCV MCH MCHC RDW Plt Count Seg Neutrophils % Lymphocytes % Monocytes % Eosinophils % Basophils % Absolute Neutrophils Absolute Lymphocytes Absolute Monocytes Absolute Eosinophils Absolute Basophils PT INR APTT Sodium 139.6 Potassium 5.1 H Chloride 105 Carbon Dioxide 19 L Anion Gap 16 BUN 63 H Creatinine 9.13 H Est GFR ( Amer) 7 L Est GFR (Non-Af Amer) 6 L Glucose 89 Calcium 8.0 L Magnesium 2.1 Total Bilirubin 0.4 Direct Bilirubin 0.4 Neonat Total Bilirubin Not Reportable Neonat Direct Bilirubin Not Reportable Neonat Indirect Bili Not Reportable AST 23 ALT 17 L Alkaline Phosphatase 69 Creatine Kinase 107 CK-MB (CK-2) 1.35 Troponin I 0.066 NT-Pro-B Natriuret Pep 10325 H Total Protein 7.1 Albumin 4.0 Lipase 350.2 H TSH 1.33 Free T4 1.09 Urine Color Urine Appearance Urine pH Ur Specific [place] Urine Protein Urine Glucose (UA) Urine Ketones Urine Blood Urine Nitrite Urine Bilirubin Urine Urobilinogen Ur Leukocyte Esterase Urine WBC (Auto) Squamous Epi Cells Auto Urine Mucus (Auto) Urine Ascorbic Acid Urine Opiates Screen Urine Methadone Screen Ur Barbiturates Screen Ur Phencyclidine Scrn Ur Amphetamines Screen U Benzodiazepines Scrn Urine Cocaine Screen U Marijuana (THC) Screen 02/05/19 10:03 WBC RBC Hgb Hct MCV MCH MCHC RDW Plt Count Seg Neutrophils % Lymphocytes % Monocytes % Eosinophils % Basophils % Absolute Neutrophils Absolute Lymphocytes Absolute Monocytes Absolute Eosinophils Absolute Basophils PT 14.2 INR 1.10 APTT 25.2 Sodium Potassium Chloride Carbon Dioxide Anion Gap BUN Creatinine Est GFR ( Amer) Est GFR (Non-Af Amer) Glucose Calcium Magnesium Total Bilirubin Direct Bilirubin Neonat Total Bilirubin Neonat Direct Bilirubin Neonat Indirect Bili AST ALT Alkaline Phosphatase Creatine Kinase CK-MB (CK-2) Troponin I NT-Pro-B Natriuret Pep Total Protein Albumin Lipase TSH Free T4 Urine Color Urine Appearance Urine pH Ur Specific [place] Urine Protein Urine Glucose (UA) Urine Ketones Urine Blood Urine Nitrite Urine Bilirubin Urine Urobilinogen Ur Leukocyte Esterase Urine WBC (Auto) Squamous Epi Cells Auto Urine Mucus (Auto) Urine Ascorbic Acid Urine Opiates Screen Urine Methadone Screen Ur Barbiturates Screen Ur Phencyclidine Scrn Ur Amphetamines Screen U Benzodiazepines Scrn Urine Cocaine Screen U Marijuana (THC) Screen - Diagnostic Test Radiology reviewed: Image reviewed, Reports reviewed Radiology results interpreted by me: 02/05/19 14:12 Chest X-Ray 02/05/19 08:27 IMPRESSION: Cardiomegaly without acute abnormality of the lungs. Chest/Abdomen CTA 02/05/19 10:47 IMPRESSION: 1. Negative examination for pulmonary embolism. 2. Emphysema. 3. Bibasilar atelectasis or scarring. 4. There appears to be atherosclerotic occlusion of the midportion of the abdominal aorta and very atrophic bilateral kidneys. There is a right axillary- femoral lower extremity bypass graft, partially imaged and chronically occluded. 02/06/19 02:32 - EKG Interpretation by Me EKG shows normal: Sinus rhythm Rate: Normal Rhythm: NSR Voltage: Consistant with LVH P Waves: DANISHA When compared to previous EKG there are: Changes noted - New flipped T waves in V6; however, otherwise nonspecific, no STEMI, reviewed by Dr. 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 CHF exacerbation Qualifiers: Heart failure type: unspecified Qualified Code(s): I50.9 - Heart failure, unspecified Dyspnea Qualifiers: Dyspnea type: unspecified Qualified Code(s): R06.00 - Dyspnea, unspecified Fluid overload Qualifiers: Hypervolemia type: unspecified Qualified Code(s): E87.70 - Fluid overload, unspecified Chronic renal failure Qualifiers: Chronic kidney disease stage: unspecified stage Qualified Code(s): N18.9 - Chronic kidney disease, unspecified HIV (human immunodeficiency virus infection) Qualifiers: HIV symptom status: unspecified Qualified Code(s): B20 - Human immunodeficiency virus [HIV] disease Condition: Fair Disposition: ADMITTED INPATIENT Admitting Provider: Abdoul (Hospitalist) - who agreed to accept the pt. Dr Renteria-nephr, also agreed to dialyse the pt emergently prior to dr mendes examining the pt. so pt went to dialysis and dr mendes will do admission h and p after that per dr mendes. he agreed to accept the pt their service. care transferred to hospitalist and butcher's assistant in stable condition. please refer to there note for further details of the visit. vss. normal o2 sats on ra. nontoxic. Unit Admitted: Telemetry
--- NOTE | 2019-02-05 08:58 | RADIOLOGY REPORT (SQ) ---
EXAM DESCRIPTION: CHEST 2 VIEWS COMPLETED DATE/TIME: 02/05/2019 8:51 am REASON FOR STUDY: cp COMPARISON: 01/15/2018 EXAM PARAMETERS: NUMBER OF VIEWS: two views TECHNIQUE: Digital Frontal and Lateral radiographic views of the chest acquired. RADIATION DOSE: NA LIMITATIONS: none FINDINGS: LUNGS AND PLEURA: No opacities, masses or pneumothorax. No pleural effusion. MEDIASTINUM AND HILAR STRUCTURES: No masses or contour abnormalities. HEART AND VASCULAR STRUCTURES: Cardiomegaly. BONES: Disc degenerative disease of the thoracic spine. HARDWARE: None in the chest. OTHER: No other significant finding. IMPRESSION: Cardiomegaly without acute abnormality of the lungs. TECHNICAL DOCUMENTATION: JOB ID: [id number] [employer] [facility] [employer]- All Rights Reserved Reading location - IP/workstation name: [email or web address]
[2019-02-05 09:20] VITALS: BP 137/82
[2019-02-05 10:14] LABS: APPEARANCE,URINE CLEAR; BILIRUBIN,URINE NEGATIVE (NEGATIVE); COLOR,URINE YELLOW; GLUCOSE, URINE 50 mg/dL (NEGATIVE); KETONES,URINE NEGATIVE (NEGATIVE); LEUKOCYTE ESTERASE,URINE NEGATIVE (NEGATIVE); NITRITE,URINE NEGATIVE (NEGATIVE); PROTEIN,URINE 100 mg/dL (NEGATIVE); URINE SPECIFIC GRAVITY 1.012; UROBILINOGEN,URINE NEGATIVE mg/dL (<2.0)
[2019-02-05 10:18] LABS: ABSOLUTE BASOPHILS # (AUTO) 0.1 10^3/uL (0.0-0.2); ABSOLUTE EOSINOPHILS # (AUTO) 0.2 10^3/uL (0.0-0.6); ABSOLUTE MONOCYTES (AUTO) 0.7 10^3/uL (0.1-1.4); ABSOLUTE NEUT (AUTO) 3.5 10^3/uL (1.7-8.2); BASOPHILS % (AUTO) 0.8 % (0-2); EOSINOPHILS % (AUTO) 3.7 % (0-6); HEMATOCRIT 33.8 % (37.9-51.0); HEMOGLOBIN 11.6 g/dL (13.5-17.0); LYMPHOCYTES % (AUTO) 30.1 % (13-45); MEAN CORPUSCULAR HEMOGLOBIN 30.9 pg (27.0-33.4); MEAN CORPUSCULAR HGB CONC 34.2 g/dL (32.0-36.0); MEAN CORPUSCULAR VOLUME 90 fl (80-97); MONOCYTES % (AUTO) 11.2 % (3-13); PLATELET COUNT 171 10^3/uL (150-450); RED BLOOD COUNT 3.74 10^6/uL (4.35-5.55); RED CELL DISTRIBUTION WIDTH 14.8 % (11.5-14.0); SEGMENTED NEUTROPHILS % (AUTO) 54.2 % (42-78); TOTAL CELLS COUNTED % (AUTO) 100 %; WHITE BLOOD COUNT 6.5 10^3/uL (4.0-10.5)
[2019-02-05 10:19] LABS: PROTHROMBIN TIME 14.2 SEC (11.4-15.4)
[2019-02-05 10:20] LABS: PARTIAL THROMBOPLASTIN TIME 25.2 SEC (23.5-35.8)
[2019-02-05 10:36] LABS: URINE AMPHETAMINES SCREEN NEGATIVE; URINE BARBITURATES SCREEN NEGATIVE; URINE BENZODIAZEPINES SCREEN NEGATIVE; URINE COCAINE SCREEN NEGATIVE; URINE MARIJUANA (THC) SCREEN NEGATIVE; URINE METHADONE SCREEN NEGATIVE; URINE PHENCYCLIDINE SCREEN NEGATIVE
[2019-02-05 10:38] LABS: ALANINE AMINOTRANSFERASE 17 U/L (21-72); ALKALINE PHOSPHATASE 69 U/L (38-126); ANION GAP 16 (5-19); ASPARTATE AMINO TRANSFERASE 23 U/L (17-59); BILIRUBIN,DIRECT 0.4 mg/dL (0.0-0.4); BILIRUBIN,TOTAL 0.4 mg/dL (0.2-1.3); BLOOD UREA NITROGEN 63 mg/dL (7-20); CARBON DIOXIDE 19 mmol/L (22-30); CHLORIDE 105 mmol/L (98-107); CREATINE KINASE 107 U/L (55-170); GLUCOSE 89 mg/dL (75-110); LIPASE 350.2 U/L (23-300); POTASSIUM 5.1 mmol/L (3.6-5.0); SODIUM 139.6 mmol/L (137-145); TOTAL PROTEIN 7.1 g/dL (6.3-8.2)
[2019-02-05 10:51] LABS: CREATINE KINASE MB 1.35 ng/mL (<4.55)
[2019-02-05 10:53] LABS: TROPONIN I 0.066 ng/mL
[2019-02-05 10:54] LABS: FREE T4 (FREE THYROXINE) 1.09 ng/dL (0.78-2.19)
[2019-02-05 11:07] LABS: THYROID STIMULATING HORMONE 1.33 uIU/mL (0.47-4.68)
--- NOTE | 2019-02-05 13:15 | RADIOLOGY REPORT (SQ) ---
EXAM DESCRIPTION: CTA CHEST COMPLETED DATE/TIME: 02/05/2019 12:57 pm REASON FOR STUDY: rule out pe., cp, sob COMPARISON: 08/16/2018 TECHNIQUE: CT scan of the chest performed using helical scanning technique with dynamic intravenous contrast injection. Images reviewed with lung, soft tissue and bone windows. Reconstructed coronal and sagittal MPR images reviewed. Additional 3 dimensional post-processing performed to develop Maximal Intensity Projection images (VA P). All images stored on PACS. All CT scanners at this facility use dose modulation, iterative reconstruction, and/or weight based d osing when appropriate to reduce radiation dose to as low as reasonably achievable (ALARA). [facility]: Dose Right [facility]: CareDose [facility]: Dose Right [facility]: Teradose 4D [facility]: [employer] CONTRAST TYPE AND DOSE: contrast/concentration: Isovue 350.00 mg/ml; Total Contrast Delivered: 53.0 ml; Total Saline Delivered: 60.0 ml Contrast bolus optimized for the pulmonary arteries. Not diagnostic for the aorta. RENAL FUNCTION: GFR > 60. RADIATION DOSE: CT Rad equipment meets quality standard of care and radiation dose reduction techniq ues were employed. CTDIvol: 15.8 - 16.5 mGy. DLP: 644 mGy-cm. . LIMITATIONS: None. FINDINGS: LUNGS AND PLEURA: Moderate centrilobular emphysema. There is bibasilar bronchial wall thi ckening and bibasilar atelectasis or scarring. No pleural effusions or pleural calcifications. AORTA AND GREAT VESSELS: No aneurysm. Contrast bolus not optimized for the aorta. HEART: No pericardial effusion. No significant coronary artery calcifications. Cardiomegaly. PULMONARY ARTERIES: No emboli visualized in the main pulmonary arteries or the segmental branches. HILAR AND MEDIASTINAL STRUCTURES: No identified masses or abnormal nodes. HARDWARE: None in the chest. UPPER ABDOMEN: There appears to be atherosclerotic occlusion of the midportion of the abdominal aorta and very atrophic bilateral kidneys. THYROID AND OTHER SOFT TISSUES: No masses. No adenopathy. BONES: No acute or significant finding. 3D MIPS: Confirm above findings. OTHER: There is a right axillary lower extremity bypass graft, partially imaged. IMPRESSION: 1. Negative examination for pulmonary embolism. 2. Emphysema. 3. Bibasilar atelectasis or scarring. 4. There appears to be atherosclerotic occlusion of the midportion of the abdominal aorta and very at rophic bilateral kidneys. There is a right axillary lower extremity bypass graft, partially imaged. COMMENT: Quality ID # [id number]: Final reports with documentation of one or more dose reduction techniques (e.g., Automated exposure control, adjustment of the mA and/or kV according to patient size, use of iterative reconstruction technique) TECHNICAL DOCUMENTATION: JOB ID: [id number] [employer]- All Rights Reserved Reading location - IP/workstation name: [email or web address]
--- NOTE | 2019-02-05 13:44 | EKG REPORT ---
SEVERITY:- ABNORMAL ECG - SINUS RHYTHM PROBABLE LEFT ATRIAL ABNORMALITY LEFT VENTRICULAR HYPERTROPHY PROLONGED QT INTERVAL : Confirmed by: Marco Young MD 05-Feb-2019 13:43:20
[2019-02-05] MEDS ORDERED: NORMAL SALINE 1000 ML 1,000 ML IV PRN (15:03)
--- NOTE | 2019-02-05 15:33 | PDOC CONSULTATION ---
Consultation Consult Date: 02/05/19 Provider Consulted: KELLI MAYNARD Consult reason:: I was asked to see the patient for hemodialysis today. History of Present Illness Admission Date/PCP: 02/05/19 14:25 History of Present Illness: KRISTY CANTU is a 63 year old male with history of end-stage renal disease on maintenance hemodialysis on Mondays, Wednesdays and Fridays, HIV, hypertension, COPD, history of pulmonary embolism, coronary artery disease and noncompliance who presented in the emergency room today because of substernal chest pains. Patient states that he woke up this morning to prepare for his usual hemodialysis treatment when he experienced chest tightness in the substernal area. He said is worse on exertion and on coughing. This is associated with slight shortness of breath. He also mentioned that his hands feels tight and swollen but denies any leg swelling on his bilateral stumps. He otherwise denies any nausea, vomiting or diarrhea. He has a little bit of abdominal discomfort. His last dialysis was Friday but he was 50 minutes short because he had cramping. In the emergency room part of the work-up was a CTA and he received contrast. This shows negative for acute pulmonary embolism. His troponin is 0.066 with a BNP of 20,600. Potassium is 5.1. Patient was subsequently admitted for the chest pains. I am seeing the patient on dialysis. He seems to be very comfortable and not in any kind of distress. Currently tolerating dialysis. Past Medical History Cardiac Medical History: Reports: CHF-Diastolic, Coronary Artery Disease, DVT, Hyperlipidemia, Hypertension-primary, Myocardial Infarction, Peripheral Vascular Disease, Pulmonary Embolism Pulmonary Medical History: Reports: Bronchitis, Chronic Obstructive Pulmonary Disease (COPD), Pneumonia, Respiratory Failure Endocrine Medical History: Reports: Diabetes Mellitus Type 2 - insulin dependent Renal/ Medical History: Reports: End Stage Renal Disease - Dialysis MWF with Olga Lowe, Hyperphosphatemia, Metabolic Acidosis GI Medical History: Reports: Gastroesophageal Reflux Disease Musculoskeltal Medical History: Reports: Arthritis Psychiatric Medical History: Reports: Depression Infectious Medical History: Reports: HIV Hematology Medical History: Reports Anemia of Chronic Kidney Disease Past Surgical History Past Surgical History: Reports: Dialysis Access Surgery AVF, Orthopedic Surgery - bilateral amputation, R BKA, L AKA, Vascular Surgery - left arm clot removed, IVC filter, thrombectomy 05/18/2018 left arm Social History Information Source: Patient, [facility] Records Smoking Status: Current Every Day Smoker Frequency of Alcohol Use: None Hx Recreational Drug Use: Yes - Last used 09/26/18 Drugs: Cocaine Hx Prescription Drug Abuse: No Family History Family History: Reviewed & Not Pertinent, End Stage Renal Disease - Brother was on dialysis. Parental Family History Reviewed: Yes Children Family History Reviewed: Unknown Sibling(s) Family History Reviewed.: Yes Medication/Allergy Home Medications: Abacavir Sulfate [Abacavir 300 mg Tablet] 300 mg PO Q12 07/15/18 Clonidine [Catapres-Tts 3 (0.3 mg/24 Hr) Transderm Patch] 1 patch TD FR@1000 07/15/18 Isosorbide Mononitrate [Isosorbide Mononitrate ER] 120 mg PO DAILY 07/15/18 Nitroglycerin [Nitrostat 0.4 mg (1/150 Gr) Tabs 25/Bottle] 1 tab SL Q5MP PRN 07/15/18 Albuterol Sulfate [Proair HFA Inhalation Aerosol 8.5 gm MDI] 2 puff IH Q6HP PRN 07/27/18 Calcium Acetate 667 mg PO MEALS 07/27/18 Chlorthalidone [Hygroton 25 mg Tablet] 25 mg PO BID 01/15/19 Dolutegravir Sodium [Tivicay] 50 mg PO DAILY 02/05/19 Furosemide [Lasix 80 mg Tablet] 80 mg PO DAILY 02/05/19 Lamivudine [Epivir] 50 mg PO DAILY 02/05/19 Warfarin Sodium [Coumadin] 6 mg PO QHS 02/05/19 Allergies/Adverse Reactions: calcitriol Allergy (Verified 08/31/18 14:27) itching Review of Systems All systems: reviewed and no additional remarkable complaints except as stated Review of Systems: Constitutional: ABSENT: chills, fatigue, fever(s), headache(s), weight gain, weight loss Eyes: ABSENT: visual disturbances Ears: ABSENT: hearing changes Cardiovascular: ABSENT: Dyspnea on exertion, edema, orthropnea, palpitations; admits to chest pains Respiratory: ABSENT: cough, dyspnea, hemoptysis Gastrointestinal: ABSENT: Constipation, diarrhea, hematemesis, hematochezia, nausea, vomiting; admits abdominal discomfort Genitourinary: ABSENT: dysuria, hematuria Musculoskeletal: ABSENT: joint swelling Integumentary: ABSENT: rash, wounds Neurological: ABSENT: abnormal gait, abnormal speech, confusion, dizziness, focal weakness, numbness, syncope Psychiatric: ABSENT: anxiety, depression Endocrine: ABSENT: cold intolerance, heat intolerance, polydipsia, polyuria Hematologic/Lymphatic: ABSENT: easy bleeding, easy bruising, lymphadenopathy Physical Exam Vital Signs: Temp Pulse Resp BP Pulse Ox 98.2 F 28 H 137/82 H 98 02/05/19 08:16 02/05/19 09:01 02/05/19 09:00 02/05/19 09:01 Intake & Output 02/04/19 02/05/19 02/06/19 06:59 06:59 06:59 Weight 67.5 kg Vitals on dialysis: Blood pressure 174/97, heart rate of 82, blood flow rate of 400 mL/min and dialysate flow rate of 800 mL/min. Exam: General appearance: No acute distress, cooperative, well-developed, well- nourished Head exam: PRESENT: atraumatic, normocephalic Eye exam: PRESENT: Conjunctiva [place], EOMI, PERRLA. ABSENT: conjunctival injection, scleral icterus Mouth exam: PRESENT: moist, neck supple, tongue midline Neck exam: PRESENT: full ROM. ABSENT: carotid bruit, JVD, lymphadenopathy, thyromegaly Respiratory exam: PRESENT: clear to auscultation bilaterally. ABSENT: rales, rhonchi, stridor, wheezes Cardiovascular exam: PRESENT: RRR, +S1, +S2. ABSENT: systolic murmur Pulses: PRESENT: normal radial pulses, normal dorsalis pedis pulses GI/Abdominal exam: PRESENT: normal bowel sounds, soft. ABSENT: guarding, mass, tenderness Rectal exam: Deferred Extremities exam: PRESENT: Bilateral amputee, right BKA and left AKA ABSENT: calf tenderness, pedal edema Musculoskeletal: PRESENT: full ROM. ABSENT: deformity Neurological exam: PRESENT: alert, Awake, Oriented to person, Oriented to place, Oriented to time, reflexes normal, CN II-XII grossly intact. ABSENT: motor sensory deficit Psychiatric exam: PRESENT: appropriate affect, normal mood. ABSENT: homicidal ideation, suicidal ideation Skin exam: PRESENT: intact, dry, warm. ABSENT: rash Results Laboratory Results: 02/05/19 10:03 02/05/19 10:03 07/02/05/19 02/05/19 09:47 10:03 10:03 WBC 6.5 RBC 3.74 L Hgb 11.6 L Hct 33.8 L MCV 90 MCH 30.9 MCHC 34.2 RDW 14.8 H Plt Count 171 Seg Neutrophils % 54.2 Lymphocytes % 30.1 Monocytes % 11.2 Eosinophils % 3.7 Basophils % 0.8 Absolute Neutrophils 3.5 Absolute Lymphocytes 2.0 Absolute Monocytes 0.7 Absolute Eosinophils 0.2 Absolute Basophils 0.1 Sodium 139.6 Potassium 5.1 H Chloride 105 Carbon Dioxide 19 L Anion Gap 16 BUN 63 H Creatinine 9.13 H Est GFR ( Amer) 7 L Est GFR (Non-Af Amer) 6 L Glucose 89 Calcium 8.0 L Magnesium 2.1 Total Bilirubin 0.4 AST 23 ALT 17 L Alkaline Phosphatase 69 Total Protein 7.1 Albumin 4.0 Lipase 350.2 H TSH Free T4 Urine Color YELLOW Urine Appearance CLEAR Urine pH 7.0 Ur Specific [place] 1.012 Urine Protein 100 H Urine Glucose (UA) 50 H Urine Ketones NEGATIVE Urine Blood NEGATIVE Urine Nitrite NEGATIVE Ur Leukocyte Esterase NEGATIVE Urine WBC (Auto) 1 02/05/19 10:03 WBC RBC Hgb Hct MCV MCH MCHC RDW Plt Count Seg Neutrophils % Lymphocytes % Monocytes % Eosinophils % Basophils % Absolute Neutrophils Absolute Lymphocytes Absolute Monocytes Absolute Eosinophils Absolute Basophils Sodium Potassium Chloride Carbon Dioxide Anion Gap BUN Creatinine Est GFR ( Amer) Est GFR (Non-Af Amer) Glucose Calcium Magnesium Total Bilirubin AST ALT Alkaline Phosphatase Total Protein Albumin Lipase TSH 1.33 Free T4 1.09 Urine Color Urine Appearance Urine pH Ur Specific [place] Urine Protein Urine Glucose (UA) Urine Ketones Urine Blood Urine Nitrite Ur Leukocyte Esterase Urine WBC (Auto) 02/05/19 02/05/19 10:03 10:03 Creatine Kinase 107 CK-MB (CK-2) 1.35 Troponin I 0.066 NT-Pro-B Natriuret Pep 13896 H Impressions: Chest X-Ray 02/05/19 08:27 IMPRESSION: Cardiomegaly without acute abnormality of the lungs. Chest/Abdomen CTA 02/05/19 10:47 IMPRESSION: 1. Negative examination for pulmonary embolism. 2. Emphysema. 3. Bibasilar atelectasis or scarring. 4. There appears to be atherosclerotic occlusion of the midportion of the abdominal aorta and very atrophic bilateral kidneys. There is a right axillary lower extremity bypass graft, partially imaged. Assessment & Plan - Diagnosis (1) ESRD needing dialysis Is this a current diagnosis for this admission?: Yes Plan: We will do dialysis today for 3 hours, using the patient's AV fistula, with 2 potassium bath, blood flow rate of 450 mL per minute, dialysate flow rate of 800 mL per minute, ultrafiltration 2 to 3 L as tolerated, no heparin and no Pr ocrit. She will be monitored throughout dialysis treatment by our dialysis nurse. (2) Chest pain, rule out acute myocardial infarction Is this a current diagnosis for this admission?: Yes Plan: Defer to hospitalist service. (3) Anemia in chronic kidney disease, on chronic dialysis Is this a current diagnosis for this admission?: Yes (4) Hypertension Qualifiers: Hypertension type: essential hypertension Qualified Code(s): I10 - Essential (primary) hypertension Is this a current diagnosis for this admission?: Yes - Notes Notes: Thank you very much for this consultation. From nephrology standpoint if the patient was proven to have no acute cardiac event I think he can be discharge per hospitalist discretion. Next hemodialysis will be on Friday. - Time Time Spent: 50 to 70 Minutes
[2019-02-05] MEDS ORDERED: IPRATROPIUM/ALBUTEROL 0.5-2.5 MG/3 ML AMPUL NEB PRN (16:55)
[2019-02-05] MEDS ORDERED: ACETAMINOPHEN 325 MG TABLET PO PRN (16:55)
[2019-02-05] MEDS ORDERED: CALCIUM ACETATE 667 MG PO SCH (17:00)
[2019-02-05] MEDS ORDERED: NITROGLYCERIN 0.4 MG/TAB 25 TAB/BOTTLE SL PRN (17:00)
[2019-02-05] MEDS ORDERED: ALBUTEROL SULFATE HFA (90 MCG/PUFF) 200 PUFF/8.5 GM MDI IH PRN (17:00)
--- NOTE | 2019-02-05 17:29 | PDOC H&P ---
History of Present Illness Admission Date/PCP: 02/05/19 14:25 Patient complains of: Chest Pain History of Present Illness: KRISTY CANTU is a 63 year old male Past Medical History Cardiac Medical History: Reports: Congestive Heart Failure - EF is 40%, with moderate diastolic dysfunction, Coronary Artery Disease, DVT, Myocardial Infarction, Hyperlipidema, Hypertension, Peripheral Vascular Disease, Pulmonary Embolism Denies: Atrial Fibrillation Pulmonary Medical History: Reports: Bronchitis, Chronic Obstructive Pulmonary Disease (COPD), Pneumonia, Respiratory Failure Denies: Asthma, Sleep Apnea Neurological Medical History: Denies: Migraine, Seizures Endocrine Medical History: Reports: Diabetes Mellitus Type 2 - insulin dependent Denies: Hyperthyroidism, Hypothyroidism Renal/ Medical History: Reports: End Stage Renal Disease - Dialysis MWF with Dr. Pablo Lowe GI Medical History: Reports: Gastroesophageal Reflux Disease Denies: Cirrhosis, Crohn's Disease, Hepatitis, Ulcerative Colitis Musculoskeltal Medical History: Reports: Arthritis Denies: Fibromyalgia Skin Medical History: Denies: Eczema, Psoriasis Psychiatric Medical History: Reports: Depression Traumatic Medical History: Denies: Traumatic Brain Injury Hematology: Reports: Anemia, Bleeding Tendencies - Since being on warfarin Infectious Medical History: Reports: HIV Past Surgical History Past Surgical History: Reports: Orthopedic Surgery - bilateral amputation, R BKA, L AKA, Vascular Surgery - left arm clot removed, IVC filter, thrombectomy 05/18/2018 left arm Denies: Other - Endoscopy, dialysis shunt/tunnel graft Social History Information Source: Patient, [facility] Records Lives with: Alone Smoking Status: Current Every Day Smoker Frequency of Alcohol Use: None Hx Recreational Drug Use: Yes - Last used 09/26/18 Drugs: Cocaine - Clean 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 Hx Prescription Drug Abuse: No - Advance Directive Resuscitation Status: Full Code Family History Family History: CAD, CVA, DM, Hyperlipidemia, Hypertension, Malignancy Parental Family History Reviewed: Yes Children Family History Reviewed: Yes Sibling(s) Family History Reviewed.: Yes Medication/Allergy Home Medications: Abacavir Sulfate [Abacavir 300 mg Tablet] 300 mg PO Q12 07/15/18 Clonidine [Catapres-Tts 3 (0.3 mg/24 Hr) Transderm Patch] 1 patch TD FR@1000 Isosorbide Mononitrate [Isosorbide Mononitrate ER] 120 mg PO DAILY 07/15/18 Nitroglycerin [Nitrostat 0.4 mg (1/150 Gr) Tabs 25/Bottle] 1 tab SL Q5MP PRN 07/15/18 Albuterol Sulfate [Proair HFA Inhalation Aerosol 8.5 gm MDI] 2 puff IH Q6HP PRN 07/27/18 Calcium Acetate 667 mg PO MEALS 07/27/18 Chlorthalidone [Hygroton 25 mg Tablet] 25 mg PO BID 01/15/19 Acetaminophen [Tylenol 325 mg Tablet] 650 mg PO Q4HP PRN tablet 02/05/19 Dolutegravir Sodium [Tivicay] 50 mg PO DAILY 02/05/19 Doxycycline Hyclate [Vibramycin 100 mg Tablet] 100 mg PO BID #20 tablet 02/05/19 Furosemide [Lasix 80 mg Tablet] 80 mg PO DAILY 02/05/19 Lamivudine [Epivir] 50 mg PO DAILY 02/05/19 Warfarin Sodium [Coumadin] 6 mg PO QHS 30 Days #30 tablet 02/05/19 Allergies/Adverse Reactions: calcitriol Allergy (Verified 08/31/18 14:27) itching Review of Systems Constitutional: ABSENT: chills, fever(s), night sweats Eyes: ABSENT: visual disturbances Ears: ABSENT: hearing changes Nose, Mouth, and Throat: ABSENT: mouth pain, sore throat Cardiovascular: PRESENT: chest pain. ABSENT: edema, palpitations Respiratory: PRESENT: cough, dyspnea, sputum Gastrointestinal: ABSENT: abdominal pain, constipation, diarrhea, hematemesis, melena, nausea, vomiting Genitourinary: ABSENT: dysuria, hematuria Musculoskeletal: PRESENT: other - Right BKA left AKA Neurological: ABSENT: abnormal speech, confusion, memory loss Psychiatric: ABSENT: anxiety, depression Endocrine: ABSENT: cold intolerance, flushing, heat intolerance Hematologic/Lymphatic: ABSENT: easy bleeding, easy bruising Physical Exam Vital Signs: Temp Pulse Resp BP Pulse Ox 98.2 F 28 H 137/82 H 98 02/05/19 08:16 02/05/19 09:01 02/05/19 09:00 02/05/19 09:01 Intake & Output 02/04/19 02/05/19 02/06/19 06:59 06:59 06:59 Weight 67.5 kg General appearance: PRESENT: no acute distress, cooperative, well-developed Head exam: PRESENT: atraumatic, normocephalic Eye exam: PRESENT: conjunctiva pink, EOMI. ABSENT: scleral icterus Ear exam: PRESENT: normal external ear exam Mouth exam: PRESENT: dry mucosa, tongue midline Respiratory exam: PRESENT: clear to auscultation ramila, symmetrical, unlabored. ABSENT: accessory muscle use, crackles, rales, rhonchi, tachypnea, wheezes Cardiovascular exam: PRESENT: RRR, +S1, +S2, systolic murmur - 3 of 6 GI/Abdominal exam: PRESENT: normal bowel sounds, soft. ABSENT: distended, tenderness Rectal exam: PRESENT: deferred Gentrourinary exam: ABSENT: indwelling catheter Extremities exam: PRESENT: other - Right BKA, left AKA Neurological exam: PRESENT: alert, awake, oriented to person, oriented to place, oriented to time, oriented to situation, CN II-XII grossly intact Psychiatric exam: PRESENT: appropriate affect, normal mood. ABSENT: agitated, anxious Focused psych exam: ABSENT: delusional, restlessness Skin exam: PRESENT: dry, warm. ABSENT: rash Results Laboratory Results: 02/05/19 10:03 02/05/19 10:03 02/05/19 02/05/19 02/05/19 09:47 10:03 10:03 WBC 6.5 RBC 3.74 L Hgb 11.6 L Hct 33.8 L MCV 90 MCH 30.9 MCHC 34.2 RDW 14.8 H Plt Count 171 Seg Neutrophils % 54.2 Lymphocytes % 30.1 Monocytes % 11.2 Eosinophils % 3.7 Basophils % 0.8 Absolute Neutrophils 3.5 Absolute Lymphocytes 2.0 Absolute Monocytes 0.7 Absolute Eosinophils 0.2 Absolute Basophils 0.1 Sodium 139.6 Potassium 5.1 H Chloride 105 Carbon Dioxide 19 L Anion Gap 16 BUN 63 H Creatinine 9.13 H Est GFR ( Amer) 7 L Est GFR (Non-Af Amer) 6 L Glucose 89 Calcium 8.0 L Magnesium 2.1 Total Bilirubin 0.4 AST 23 ALT 17 L Alkaline Phosphatase 69 Total Protein 7.1 Albumin 4.0 Lipase 350.2 H TSH Free T4 Urine Color YELLOW Urine Appearance CLEAR Urine pH 7.0 Ur Specific [place] 1.012 Urine Protein 100 H Urine Glucose (UA) 50 H Urine Ketones NEGATIVE Urine Blood NEGATIVE Urine Nitrite NEGATIVE Ur Leukocyte Esterase NEGATIVE Urine WBC (Auto) 1 02/05/19 10:03 WBC RBC Hgb Hct MCV MCH MCHC RDW Plt Count Seg Neutrophils % Lymphocytes % Monocytes % Eosinophils % Basophils % Absolute Neutrophils Absolute Lymphocytes Absolute Monocytes Absolute Eosinophils Absolute Basophils Sodium Potassium Chloride Carbon Dioxide Anion Gap BUN Creatinine Est GFR ( Amer) Est GFR (Non-Af Amer) Glucose Calcium Magnesium Total Bilirubin AST ALT Alkaline Phosphatase Total Protein Albumin Lipase TSH 1.33 Free T4 1.09 Urine Color Urine Appearance Urine pH Ur Specific [place] Urine Protein Urine Glucose (UA) Urine Ketones Urine Blood Urine Nitrite Ur Leukocyte Esterase Urine WBC (Auto) 02/05/19 02/05/19 10:03 10:03 Creatine Kinase 107 CK-MB (CK-2) 1.35 Troponin I 0.066 NT-Pro-B Natriuret Pep 00186 H Impressions: Chest X-Ray 02/05/19 08:27 IMPRESSION: Cardiomegaly without acute abnormality of the lungs. Chest/Abdomen CTA 02/05/19 10:47 IMPRESSION: 1. Negative examination for pulmonary embolism. 2. Emphysema. 3. Bibasilar atelectasis or scarring. 4. There appears to be atherosclerotic occlusion of the midportion of the abdominal aorta and very atrophic bilateral kidneys. There is a right axillary lower extremity bypass graft, partially imaged. Assessment and Plan - Diagnosis (1) Chest pain Qualifiers: Chest pain type: unspecified Qualified Code(s): R07.9 - Chest pain, unspecified Is this a current diagnosis for this admission?: Yes Plan: The patient has a long history of chest discomfort. He typically will have troponins higher than 0.06 with negative work-up. His second troponin was only 0.065 down from 0.066. He is chest pain-free. EKG was unremarkable and unchanged from prior visits. I have arranged for an outpatient appointment with Dr. Dotty Pitt at 10 AM. He will continue on his current medication regimen (2) ESRD needing dialysis Is this a current diagnosis for this admission?: Yes Plan: The patient received hemodialysis this afternoon. He should keep his appointment at outpatient dialysis on Friday. (3) Chronic obstructive pulmonary disease Qualifiers: COPD type: chronic bronchitis Is this a current diagnosis for this admission?: Yes Plan: The patient was worried about a pulmonary embolism. He has had this in the past. He ran out of his warfarin. The CT angiogram of the chest was negative. It did show some thickening of the bronchus. With his COPD and the fact that he was coughing up grayish thick sputum I have elected to treat him with doxycycline (azithromycin interacts with warfarin) for a chronic bronchitis. - Time Time Spent with patient: 35 or more minutes Smoking Cessation Education: 3 to 10 minutes Medications reviewed and adjusted accordingly: Yes Anticipated discharge: Home Within: within 24 hours
--- NOTE | 2019-02-05 17:34 | PDOC DISCHARGE SUMMARY ---
General - Admit/Disc Date/PCP Admission Date/Primary Care Provider: 02/05/19 14:25 Discharge Date: 02/05/19 - Discharge Diagnosis (1) Chest pain Is this a current diagnosis for this admission?: Yes Summary: Negative troponins x2. No new EKG changes. Discharged on current medications and follow-up with Dr. Storm on Friday (2) ESRD needing dialysis Is this a current diagnosis for this admission?: Yes Summary: Patient received hemodialysis at the hospital today. Follow-up with his regular outpatient hemodialysis appointment on Friday (3) Chronic obstructive pulmonary disease Is this a current diagnosis for this admission?: Yes Summary: The patient has been having a productive cough intermittently over the last 3 to 4 weeks. He coughs up thick grayish colored sputum. Review of the CT angiogram showed no pulmonary embolus but in fact there is some thickening of the bronchial wall. I have opted to treat with doxycycline because a azithromycin will interact with his warfarin and this is contraindicated. (4) Elevated troponin Is this a current diagnosis for this admission?: Yes Summary: Troponin was minimally elevated and for this patient is at or below his baseline due to his end-stage kidney disease. (5) Hx pulmonary embolism Is this a current diagnosis for this admission?: Yes Summary: The patient ran out of his warfarin and I have sent a prescription to [facility] for his 6 mg daily. - Additional Information Resuscitation Status: Full Code Discharge Diet: Other (Comments) Discharge Activity: Activity As Tolerated Prescriptions: Doxycycline Hyclate [Vibramycin 100 mg Tablet] 100 mg PO BID #20 tablet Warfarin Sodium [Coumadin] 6 mg PO QHS 30 Days #30 tablet Home Medications: Abacavir Sulfate [Abacavir 300 mg Tablet] 300 mg PO Q12 07/15/18 Clonidine [Catapres-Tts 3 (0.3 mg/24 Hr) Transderm Patch] 1 patch TD FR@1000 07/15/18 Isosorbide Mononitrate [Isosorbide Mononitrate ER] 120 mg PO DAILY 07/15/18 Nitroglycerin [Nitrostat 0.4 mg (1/150 Gr) Tabs 25/Bottle] 1 tab SL Q5MP PRN 07/15/18 Albuterol Sulfate [Proair HFA Inhalation Aerosol 8.5 gm MDI] 2 puff IH Q6HP PRN 07/27/18 Calcium Acetate 667 mg PO MEALS 07/27/18 Chlorthalidone [Hygroton 25 mg Tablet] 25 mg PO BID 01/15/19 Acetaminophen [Tylenol 325 mg Tablet] 650 mg PO Q4HP PRN tablet 02/05/19 Dolutegravir Sodium [Tivicay] 50 mg PO DAILY 02/05/19 Doxycycline Hyclate [Vibramycin 100 mg Tablet] 100 mg PO BID #20 tablet 02/05/19 Furosemide [Lasix 80 mg Tablet] 80 mg PO DAILY 02/05/19 Lamivudine [Epivir] 50 mg PO DAILY 02/05/19 Warfarin Sodium [Coumadin] 6 mg PO QHS 30 Days #30 tablet 02/05/19 History of Present Illness Patient complains of: Chest pain History of Present Illness: KRISTY CANTU is a 63 year old male Hospital Course Hospital Course: The patient tolerated hemodialysis. He had 2 troponins that were in the range of his normal only slightly elevated troponin levels because of his end-stage kidney disease. He will discharge on his regular medications and I have arranged for follow-up appointment with Dr. Storm on Friday at 10:00 in the morning. The patient is in full agreement with this plan. He also will try and contact Dr. Skelton as she was originally prescribing his warfarin. Physical Exam Vital Signs: Temp Pulse Resp BP Pulse Ox 98.2 F 28 H 137/82 H 98 02/05/19 08:16 02/05/19 09:01 02/05/19 09:00 02/05/19 09:01 Intake & Output 02/04/19 02/05/19 02/06/19 06:59 06:59 06:59 Weight 67.5 kg General appearance: PRESENT: no acute distress, well-developed Head exam: PRESENT: atraumatic, normocephalic Mouth exam: PRESENT: dry mucosa, tongue midline Respiratory exam: PRESENT: clear to auscultation ramila. ABSENT: rales, rhonchi, wheezes Cardiovascular exam: PRESENT: RRR, +S1, +S2, systolic murmur - 2/6 GI/Abdominal exam: PRESENT: normal bowel sounds, soft. ABSENT: tenderness Rectal exam: PRESENT: deferred Extremities exam: PRESENT: other - Right below-knee amputation, left above-knee amputation Neurological exam: PRESENT: alert, awake, oriented to person, oriented to place, oriented to time, oriented to situation, CN II-XII grossly intact Psychiatric exam: PRESENT: appropriate affect, normal mood. ABSENT: agitated, anxious Focused psych exam: ABSENT: delusional, restlessness Results Laboratory Results: 02/05/19 10:03 02/05/19 10:03 02/05/19 02/05/19 02/05/19 09:47 10:03 10:03 WBC 6.5 RBC 3.74 L Hgb 11.6 L Hct 33.8 L MCV 90 MCH 30.9 MCHC 34.2 RDW 14.8 H Plt Count 171 Seg Neutrophils % 54.2 Lymphocytes % 30.1 Monocytes % 11.2 Eosinophils % 3.7 Basophils % 0.8 Absolute Neutrophils 3.5 Absolute Lymphocytes 2.0 Absolute Monocytes 0.7 Absolute Eosinophils 0.2 Absolute Basophils 0.1 Sodium 139.6 Potassium 5.1 H Chloride 105 Carbon Dioxide 19 L Anion Gap 16 BUN 63 H Creatinine 9.13 H Est GFR ( Amer) 7 L Est GFR (Non-Af Amer) 6 L Glucose 89 Calcium 8.0 L Magnesium 2.1 Total Bilirubin 0.4 AST 23 ALT 17 L Alkaline Phosphatase 69 Total Protein 7.1 Albumin 4.0 Lipase 350.2 H TSH Free T4 Urine Color YELLOW Urine Appearance CLEAR Urine pH 7.0 Ur Specific [place] 1.012 Urine Protein 100 H Urine Glucose (UA) 50 H Urine Ketones NEGATIVE Urine Blood NEGATIVE Urine Nitrite NEGATIVE Ur Leukocyte Esterase NEGATIVE Urine WBC (Auto) 1 02/05/19 10:03 WBC RBC Hgb Hct MCV MCH MCHC RDW Plt Count Seg Neutrophils % Lymphocytes % Monocytes % Eosinophils % Basophils % Absolute Neutrophils Absolute Lymphocytes Absolute Monocytes Absolute Eosinophils Absolute Basophils Sodium Potassium Chloride Carbon Dioxide Anion Gap BUN Creatinine Est GFR ( Amer) Est GFR (Non-Af Amer) Glucose Calcium Magnesium Total Bilirubin AST ALT Alkaline Phosphatase Total Protein Albumin Lipase TSH 1.33 Free T4 1.09 Urine Color Urine Appearance Urine pH Ur Specific [place] Urine Protein Urine Glucose (UA) Urine Ketones Urine Blood Urine Nitrite Ur Leukocyte Esterase Urine WBC (Auto) 02/05/19 02/05/19 02/05/19 10:03 10:03 15:44 Creatine Kinase 107 CK-MB (CK-2) 1.35 Troponin I 0.066 0.065 NT-Pro-B Natriuret Pep 59527 H Impressions: Chest X-Ray 02/05/19 08:27 IMPRESSION: Cardiomegaly without acute abnormality of the lungs. Chest/Abdomen CTA 02/05/19 10:47 IMPRESSION: 1. Negative examination for pulmonary embolism. 2. Emphysema. 3. Bibasilar atelectasis or scarring. 4. There appears to be atherosclerotic occlusion of the midportion of the abdominal aorta and very atrophic bilateral kidneys. There is a right axillary lower extremity bypass graft, partially imaged. Qualifiers - * PATIENT BEING DISCHARGED WITH ANY OF THE FOLLOWING DIAGNOSIS: No Acute Heart Failure - Is this a Heart Failure Patient?: No Plan Discharge Plan: As above Time Spent: Greater than 30 Minutes
[2019-02-05] MEDS ORDERED: CHLORTHALIDONE 25 MG TABLET PO SCH (18:00)
[2019-02-05] MEDS ORDERED: ABACAVIR SULFATE 300 MG PO SCH (22:00)
[2019-02-05] MEDS ORDERED: (PENDING PHARMACY ID) (Warfarin Sodium [Coumadin] 6 MG) PO SCH (22:00)
[2019-02-06] MEDS ORDERED: CALCIUM ACETATE 667 MG CAPSULE PO SCH (08:00)
[2019-02-06] MEDS ORDERED: (PENDING PHARMACY ID) (Isosorbide Mononitrate [Isosorbide Mononitrate Er] 120 MG) PO SCH (10:00)
[2019-02-06] MEDS ORDERED: LAMIVUDINE 50 MG PO SCH (10:00)
[2019-02-06] MEDS ORDERED: FUROSEMIDE 80 MG TABLET PO SCH (10:00)
[2019-02-06] MEDS ORDERED: (PENDING PHARMACY ID) (Dolutegravir Sodium [Tivicay] 50 MG) PO SCH (10:00)
[2019-02-06] MEDS ORDERED: ISOSORBIDE MONONITRATE 60 MG TAB.ER.24H PO SCH (10:00)
[2019-02-12] MEDS ORDERED: CLONIDINE 0.3 MG/24 HR PATCH.TDWK TD SCH (10:00)
== END 2019-02-05 18:09 | disposition home or self-care (01) | DRG 291 ==
LOC: ER 08:05 → EH 14:25
PROVIDERS: ADMIT Hospitalist; ATTEND Hospitalist
DX: I13.2 Hypertensive heart and chronic kidney disease with heart failure and with stage 5 chronic kidney disease, or end stage renal disease (principal); N18.6 End stage renal disease; I50.32 Chronic diastolic (congestive) heart failure; J44.9 Chronic obstructive pulmonary disease, unspecified; I25.10 Atherosclerotic heart disease of native coronary artery without angina pectoris; E11.22 Type 2 diabetes mellitus with diabetic chronic kidney disease; E78.5 Hyperlipidemia, unspecified; E11.51 Type 2 diabetes mellitus with diabetic peripheral angiopathy without gangrene; Z21 Asymptomatic human immunodeficiency virus [HIV] infection status; F32.9 Major depressive disorder, single episode, unspecified; D63.1 Anemia in chronic kidney disease; K21.9 Gastro-esophageal reflux disease without esophagitis; F17.210 Nicotine dependence, cigarettes, uncomplicated; E78.00 Pure hypercholesterolemia, unspecified; Z60.2 Problems related to living alone; I25.2 Old myocardial infarction; Z79.01 Long term (current) use of anticoagulants; Z86.711 Personal history of pulmonary embolism; Z79.899 Other long term (current) drug therapy; Z99.2 Dependence on renal dialysis; Z91.19 Patient's noncompliance with other medical treatment and regimen; Z86.718 Personal history of other venous thrombosis and embolism; Z79.51 Long term (current) use of inhaled steroids; Z79.1 Long term (current) use of non-steroidal anti-inflammatories (NSAID); Z79.4 Long term (current) use of insulin; Z89.511 Acquired absence of right leg below knee; Z89.612 Acquired absence of left leg above knee; Z88.8 Allergy status to other drugs, medicaments and biological substances; Z82.49 Family history of ischemic heart disease and other diseases of the circulatory system; Z82.3 Family history of stroke; Z83.3 Family history of diabetes mellitus; Z80.9 Family history of malignant neoplasm, unspecified
CPT/HCPCS: 36415; 71046; 71275; 80053; 80307; 81001; 82550; 82553; 83690; 83735; 83880; 84439; 84443; 84484; 85025; 85610; 85730; 93005; 93010

== ENCOUNTER 2019-02-12 10:08 | Emergency (ER) | payer MEDICARE, MEDICAID ==
--- NOTE | 2019-02-12 10:34 | ER Document Report ---
ED Medical Screen (RME) - General Chief Complaint: Chest Pain Stated Complaint: CHEST PAIN Time Seen by Provider: 02/12/19 10:31 Primary Care Provider: WILI HERNANDEZ MD [Primary Care Provider] - Follow up as needed Mode of Arrival: Wheelchair Information source: Patient Notes: 63-year-old male presents to ED for complaint of chest pain substernal radiating to the right neck and down the right arm. He states he is also very short of breath feels like his throat is tight in his chest is tight. He states about 3:00 this morning he woke up having trouble breathing. He states he has a history of high blood pressure cholesterol and multiple heart attacks. He states he was in a coma one time from his heart attack. He also has you have been diagnosed with a clot in your extremity. You have been started on a blood thinner called rivaroxaban. You need to take 15 mg twice daily for the first 21 days. You have been prescribed this medication for the first 3 weeks. It is very important that you follow-up with your primary care physician because after the first 3 weeks, you will be transitioned to 20 mg once daily. Please return to emergency department if you notice worsening pain to the affected area, you began having rectal bleeding, hit your head, develop shortness of breath or chest pain, or have any other symptoms that are concerning to you. And blood clots in arms and legs. He is end-stage renal failure on dialysis. He lives with a friend. He states he smokes 4 cigarettes a day. Patient is alert and oriented respirations regular and unlabored at this time. He is speaking in full sentences. I have greeted and performed a rapid initial assessment of this patient. A comprehensive ED assessment and evaluation of the patient, analysis of test results and completion of medical decision making process will be conducted by an additional ED providers. Dictation of this chart was performed using voice recognition software; therefore, there may be some unintended grammatical errors. TRAVEL OUTSIDE OF THE [place] IN LAST 30 DAYS: No - Related Data Allergies/Adverse Reactions: calcitriol Allergy (Verified 08/31/18 14:27) itching Past Medical History - Social History Family history: Reviewed & Not Pertinent - Past Medical History Cardiac Medical History: Reports: Hx Congestive Heart Failure - EF is 40%, with moderate diastolic dysfunction, Hx Coronary Artery Disease, Hx DVT, Hx Heart Attack, Hx Hypercholesterolemia, Hx Hypertension, Hx Peripheral Vascular Disease, Hx Pulmonary Embolism Denies: Hx Atrial Fibrillation Pulmonary Medical History: Reports: Hx Bronchitis, Hx COPD, Hx Pneumonia, Hx Respiratory Failure Denies: Hx Asthma, Hx Sleep Apnea Neurological Medical History: Denies: Hx Migraine, Hx Seizures Endocrine Medical History: Reports: Hx Diabetes Mellitus Type 1 - insulin, Hx Diabetes Mellitus Type 2 - insulin dependent. Denies: Hx Hyperthyroidism, Hx Hypothyroidism Renal/ Medical History: Reports: Hx End Stage Renal Disease - Dialysis MWF with Dr. Pablo Lowe, Hx Hemodialysis, Hx Renal Insufficiency. Denies: Hx Per itoneal Dialysis GI Medical History: Reports: Hx Gastroesophageal Reflux Disease. Denies: Hx Cirrhosis, Hx Crohn's Disease, Hx Hepatitis, Hx Ulcerative Colitis Musculoskeltal Medical History: Reports Hx Arthritis, Denies Hx Fibromyalgia, 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 bilat AKA, Reports Hx Musculoskeletal Trauma Skin Medical History: Denies Hx Eczema, Denies Hx Psoriasis Psychiatric Medical History: Reports: Hx Depression Traumatic Medical History: Denies: Hx Traumatic Brain Injury Infectious Medical History: Reports: Hx HIV - noncompliant with meds. Denies: Hx Hepatitis Past Surgical History: Reports: Hx Orthopedic Surgery - bilateral amputation, R BKA, L AKA, Hx Vascular Surgery - left arm clot removed, IVC filter, thrombectomy 05/18/2018 left arm,. Denies: Other - Endoscopy, dialysis s cadet/tunnel graft-right ax-fem bypass-chron occluded - Immunizations Immunizations up to date: Yes Hx Diphtheria, Pertussis, Tetanus Vaccination: Yes History of Influenza Vaccine for 04/2017 - 09/2017 Season: Yes Influenza Administration Date for 04/2017 - 09/2017 Season: 04/20/17 Physical Exam - Vital signs Vitals: Temp Pulse Resp BP Pulse Ox 98.0 F 79 18 133/78 H 96 02/12/19 10:20 02/12/19 10:20 02/12/19 10:20 02/12/19 10:20 02/12/19 10:20 Course - Vital Signs Vital signs: Temp Pulse Resp BP Pulse Ox 98.0 F 79 18 133/78 H 96 02/12/19 10:20 02/12/19 10:20 02/12/19 10:20 02/12/19 10:20 02/12/19 10:20 Doctor's Discharge - Discharge Referrals: WILI HERNANDEZ MD [Primary Care Provider] - Follow up as needed
--- NOTE | 2019-02-12 11:17 | RADIOLOGY REPORT (SQ) ---
EXAM DESCRIPTION: CHEST 2 VIEWS COMPLETED DATE/TIME: 02/12/2019 11:09 am REASON FOR STUDY: chest pain radiates down right arm and neck COMPARISON: 02/05/2019 EXAM PARAMETERS: NUMBER OF VIEWS: two views TECHNIQUE: Digital Frontal and Lateral radiographic views of the chest acquired. RADIATION DOSE: NA LIMITATIONS: none FINDINGS: LUNGS AND PLEURA: No opacities, masses or pneumothorax. No pleural effusion. MEDIASTINUM AND HILAR STRUCTURES: No masses or contour abnormalities. HEART AND VASCULAR STRUCTURES: Cardiomegaly. BONES: No acute findings. HARDWARE: None in the chest. OTHER: No other significant finding. IMPRESSION: Cardiomegaly without acute abnormality of the lungs. TECHNICAL DOCUMENTATION: JOB ID: [id number] [employer]- All Rights Reserved Reading location - IP/workstation name: [email or web address]
[2019-02-12 11:48] LABS: ABSOLUTE EOSINOPHILS # (AUTO) 0.3 10^3/uL (0.0-0.6); ABSOLUTE LYMPHOCYTES (AUTO) 2.5 10^3/uL (0.5-4.7); ABSOLUTE MONOCYTES (AUTO) 0.7 10^3/uL (0.1-1.4); ABSOLUTE NEUT (AUTO) 2.7 10^3/uL (1.7-8.2); BASOPHILS % (AUTO) 0.8 % (0-2); HEMATOCRIT 34.8 % (37.9-51.0); HEMOGLOBIN 11.8 g/dL (13.5-17.0); LYMPHOCYTES % (AUTO) 39.8 % (13-45); MEAN CORPUSCULAR HEMOGLOBIN 30.7 pg (27.0-33.4); MEAN CORPUSCULAR HGB CONC 33.8 g/dL (32.0-36.0); MEAN CORPUSCULAR VOLUME 91 fl (80-97); MONOCYTES % (AUTO) 11.1 % (3-13); PLATELET COUNT 174 10^3/uL (150-450); RED BLOOD COUNT 3.84 10^6/uL (4.35-5.55); RED CELL DISTRIBUTION WIDTH 14.5 % (11.5-14.0); SEGMENTED NEUTROPHILS % (AUTO) 43.3 % (42-78); TOTAL CELLS COUNTED % (AUTO) 100 %; WHITE BLOOD COUNT 6.2 10^3/uL (4.0-10.5)
[2019-02-12 12:07] LABS: ALANINE AMINOTRANSFERASE 25 U/L (21-72); ALBUMIN 3.7 g/dL (3.5-5.0); ALKALINE PHOSPHATASE 67 U/L (38-126); ANION GAP 16 (5-19); ASPARTATE AMINO TRANSFERASE 27 U/L (17-59); BILIRUBIN,DIRECT 0.5 mg/dL (0.0-0.4); BILIRUBIN,TOTAL 0.5 mg/dL (0.2-1.3); BLOOD UREA NITROGEN 82 mg/dL (7-20); CALCIUM 7.4 mg/dL (8.4-10.2); CARBON DIOXIDE 18 mmol/L (22-30); CHLORIDE 105 mmol/L (98-107); CREATINE KINASE 98 U/L (55-170); GLUCOSE 87 mg/dL (75-110); POTASSIUM 4.9 mmol/L (3.6-5.0); TOTAL PROTEIN 6.9 g/dL (6.3-8.2)
[2019-02-12 12:19] LABS: CREATINE KINASE MB 1.27 ng/mL (<4.55)
[2019-02-12 12:23] LABS: TROPONIN I 0.044 ng/mL
--- NOTE | 2019-02-12 14:06 | ER Document Report ---
ED General - General Chief Complaint: Chest Pain Stated Complaint: CHEST PAIN Time Seen by Provider: 02/12/19 10:31 Primary Care Provider: WILI HERNANDEZ MD [Primary Care Provider] - Follow up in 3-5 days (follow up on Friday, call for appointment time. ) Mode of Arrival: Wheelchair Notes: Patient is a 63-year-old male with end-stage renal disease on dialysis, CAD, hypertension hyperlipidemia that presents to the emergency department for chief complaint of chest pain and shortness of breath. Patient reports that he started having chest pressure in the middle of his chest around 3 AM this morning, with radiation to his right arm, causing a numbness and tingling sensation in his right arm as well. He had associated shortness of breath. He was supposed to go to dialysis this morning, but was unable to make it because of his symptoms and he was advised to come to the emergency department. He states he has had chest pressure like this in the past, states he had a heart at [facility], but reports that he was in a "coma" when he had his heart attack. Denies having any stents. He states he was being scheduled to have a stress test in the next 24 to 48 hours, has not had one in some time otherwise. He states that his pain is minimal at this time, rates it as a 1 out of 10. Past Medical History: End-stage renal disease on dialysis, CAD, hypertension, hyperlipidemia Past Surgical History: Left forearm AV fistula, bilateral LE amputations Social History: Admits to smoking cigarettes, denies current alcohol or illicit drug use. Family History: Reviewed and noncontributory for presenting illness Allergies: Reviewed, see documented allergy list. REVIEW OF SYSTEMS: Other than noted above, the 12 point review of systems was reviewed with the patient and were negative, all pertinent findings are included in the HPI. PHYSICAL EXAMINATION: Vital signs reviewed, nursing noted reviewed. GENERAL: Well-appearing, well-nourished and in no acute distress. HEAD: Atraumatic, normocephalic. EYES: Eyes appear normal, extraocular movements intact, sclera anicteric, conju nctiva are normal. ENT: nares patent, oropharynx clear without exudates. Moist mucous membranes. NECK: Normal range of motion, supple without lymphadenopathy LUNGS: Breath sounds clear to auscultation bilaterally and equal. No wheezes rales or rhonchi. No chest wall tenderness. HEART: Regular rate and rhythm without murmurs ABDOMEN: Soft, nontender, normoactive bowel sounds. No rebound, guarding, or rigidity. No masses appreciated. EXTREMITIES: Bilateral lower extremity amputations, no peripheral edema, left forearm AV fistula, + bruit, + thrill. NEUROLOGICAL: No focal neurological deficits. Moves all extremities spontaneously Motor and sensory grossly intact on exam. PSYCH: Normal mood, normal affect. SKIN: Warm, Dry, normal turgor, no rashes or lesions noted on exposed skin TRAVEL OUTSIDE OF THE [place] IN LAST 30 DAYS: No - Related Data Allergies/Adverse Reactions: calcitriol Allergy (Verified 08/31/18 14:27) itching Past Medical History - General Information source: Patient - Social History Smoking Status: Current Every Day Smoker Chew tobacco use (# tins/day): No Frequency of alcohol use: None Drug Abuse: None Family History: CAD, CVA, DM, Hyperlipidemia, Hypertension, Malignancy Patient has suicidal ideation: No Patient has homicidal ideation: No - Past Medical History Cardiac Medical History: Reports: Hx Congestive Heart Failure - EF is 40%, with moderate diastolic dysfunction, Hx Coronary Artery Disease, Hx DVT, Hx Heart Attack, Hx Hypercholesterolemia, Hx Hypertension, Hx Peripheral Vascular Disease, Hx Pulmonary Embolism Denies: Hx Atrial Fibrillation Pulmonary Medical History: Reports: Hx Bronchitis, Hx COPD, Hx Pneumonia, Hx Respiratory Failure Denies: Hx Asthma, Hx Sleep Apnea Neurological Medical History: Denies: Hx Migraine, Hx Seizures Endocrine Medical History: Reports: Hx Diabetes Mellitus Type 1 - insulin, Hx Diabetes Mellitus Type 2 - insulin dependent. Denies: Hx Hyperthyroidism, Hx Hypothyroidism Renal/ Medical History: Reports: Hx End Stage Renal Disease - Dialysis MWF with Dr. Pablo Lowe, Hx Hemodialysis, Hx Renal Insufficiency. Denies: Hx Peritoneal Dialysis GI Medical History: Reports: Hx Gastroesophageal Reflux Disease. Denies: Hx Cirrhosis, Hx Crohn's Disease, Hx Hepatitis, Hx Ulcerative Colitis Musculoskeletal Medical History: Reports Hx Arthritis, Denies Hx Fibromyalgia, 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 bilat AKA, Reports Hx Musculoskeletal Trauma Skin Medical History: Denies Hx Eczema, Denies Hx Psoriasis Psychiatric Medical History: Reports: Hx Depression Traumatic Medical History: Denies: Hx Traumatic Brain Injury Infectious Medical History: Reports: Hx HIV - noncompliant with meds. Denies: Hx Hepatitis Past Surgical History: Reports: Hx Orthopedic Surgery - bilateral amputation, R BKA, L AKA, Hx Vascular Surgery - left arm clot removed, IVC filter, thrombectomy 05/18/2018 left arm,. Denies: Other - Endoscopy, dialysis shunt/tunnel graft-right ax-fem bypass-chron occluded - Immunizations Immunizations up to date: Yes Hx Diphtheria, Pertussis, Tetanus Vaccination: Yes Hx Pneumococcal Vaccination: 07/21/10 Physical Exam - Vital signs Vitals: Temp Pulse Resp BP Pulse Ox 98.0 F 79 18 133/78 H 96 02/12/19 10:20 02/12/19 10:20 02/12/19 10:20 02/12/19 10:20 02/12/19 10:20 Course - Re-evaluation Re-evalutation: Patient seen and examined vital signs reviewed. Laboratory data and/or imaging were ordered as appropriate for the patient's presenting symptoms and complaint, with consideration of any critical or life threatening conditions that may be associated with their obtained history and exam as noted above Results were reviewed when available and demonstrated stable troponins x2, mild anemia, chronic, patient's BUN and creatinine elevated, but he is a chronic renal patient and end-stage renal dialysis, no hyperkalemia, he did have a mild acidosis, was treated with sodium bicarbonate tablets The patient was re-evaluated and was stable, was chest pain-free, discussed with Dr. Hernandez his conche operator who states that he will see him in the office on Friday, and it ok with two unchanged troponins, and with follow-up, was recently in the hospital for serial troponins and was ruled out. I discussed his missed dialysis with his cd reactor operator and will be set up for tomorrow at 1045, patient was agreeable and understood this plan. Evaluation was most consistent with chest pain, metabolic acidosis. Results were discussed with the patient at this point, after careful consideration I feel that that patient can be discharged from the emergency department, the patient was educated treatments and reasons to return to the emergency department based on their presumed diagnosis as noted above, they were advised to followup with a primary care physician in 2-3 days. Patient was agreeable to plan of care. *Note is created using voice recognition software and may contain spelling, syntax or grammatical errors. Laboratory 02/12/19 02/12/19 02/12/19 11:28 11:29 11:29 WBC 6.2 RBC 3.84 L Hgb 11.8 L Hct 34.8 L MCV 91 MCH 30.7 MCHC 33.8 RDW 14.5 H Plt Count 174 Seg Neutrophils % 43.3 Lymphocytes % 39.8 Monocytes % 11.1 Eosinophils % 5.0 Basophils % 0.8 Absolute Neutrophils 2.7 Absolute Lymphocytes 2.5 Absolute Monocytes 0.7 Absolute Eosinophils 0.3 Absolute Basophils 0.0 PT 16.0 H INR 1.27 Sodium 139.0 Potassium 4.9 Chloride 105 Carbon Dioxide 18 L Anion Gap 16 BUN 82 H Creatinine 8.60 H Est GFR ( Amer) 8 L Est GFR (Non-Af Amer) 6 L Glucose 87 Calcium 7.4 L Total Bilirubin 0.5 Direct Bilirubin 0.5 H Neonat Total Bilirubin Not Reportable Neonat Direct Bilirubin Not Reportable Neonat Indirect Bili Not Reportable AST 27 ALT 25 Alkaline Phosphatase 67 Creatine Kinase 98 CK-MB (CK-2) Troponin I Total Protein 6.9 Albumin 3.7 Lipase 203.3 02/12/19 02/12/19 11:29 14:41 WBC RBC Hgb Hct MCV MCH MCHC RDW Plt Count Seg Neutrophils % Lymphocytes % Monocytes % Eosinophils % Basophils % Absolute Neutrophils Absolute Lymphocytes Absolute Monocytes Absolute Eosinophils Absolute Basophils PT INR Sodium Potassium Chloride Carbon Dioxide Anion Gap BUN Creatinine Est GFR ( Amer) Est GFR (Non-Af Amer) Glucose Calcium Total Bilirubin Direct Bilirubin Neonat Total Bilirubin Neonat Direct Bilirubin Neonat Indirect Bili AST ALT Alkaline Phosphatase Creatine Kinase CK-MB (CK-2) 1.27 Troponin I 0.044 0.040 Total Protein Albumin Lipase Chest X-Ray 02/12/19 10:31 IMPRESSION: Cardiomegaly without acute abnormality of the lungs. - Vital Signs Vital signs: Temp Pulse Resp BP Pulse Ox 98.0 F 79 18 159/74 H 98 02/12/19 10:20 02/12/19 10:20 02/12/19 15:12 02/12/19 15:12 02/12/19 15:12 - Laboratory Result Diagrams: 02/12/19 11:29 02/12/19 11:29 Laboratory results interpreted by me: 02/12/19 02/12/19 02/12/19 11:28 11:29 11:29 RBC 3.84 L Hgb 11.8 L Hct 34.8 L RDW 14.5 H PT 16.0 H Carbon Dioxide 18 L BUN 82 H Creatinine 8.60 H Est GFR ( Amer) 8 L Est GFR (Non-Af Amer) 6 L Calcium 7.4 L Direct Bilirubin 0.5 H - EKG Interpretation by Me Additional EKG results interpreted by me: EKG demonstrates sinus rhythm with a ventricular rate of 70 bpm, left axis deviation, QTC 506 ms, there is T wave inversions noted in leads I and aVL as well as the 5 and V6, compared with prior EKG from 02/05/2019, without significant change. Discharge - Discharge Clinical Impression: Metabolic acidosis Chest pain Qualifiers: Chest pain type: unspecified Qualified Code(s): R07.9 - Chest pain, unspecified Condition: Stable Disposition: HOME, SELF-CARE Instructions: Chest Pain of Unclear Cause ([facility]) Additional Instructions: Please follow-up with Dr. Hernandez on Friday in the office, to schedule stress testing, in the meantime if you have worsening pain or symptoms are not improving, do not hesitate to return to the emergency department to be reevaluated. Please follow-up with dialysis tomorrow. Referrals: WILI HERNANDEZ MD [Primary Care Provider] - Follow up in 3-5 days (follow up on Friday, call for appointment time. )
[2019-02-12 14:47] LABS: INTERNATIONAL RATION (INR) 1.27
[2019-02-12] MEDS ORDERED: SODIUM BICARBONATE 650 MG TABLET PO ONE (14:48)
[2019-02-12 15:47] VITALS: BP 159/74
--- NOTE | 2019-02-12 23:10 | EKG REPORT ---
SEVERITY:- ABNORMAL ECG - SINUS RHYTHM PROBABLE LEFT ATRIAL ABNORMALITY LEFT VENTRICULAR HYPERTROPHY ABNORMAL T, CONSIDER ISCHEMIA, LATERAL LEADS VS LVH PROLONGED QT INTERVAL : Confirmed by: Beulah Storm 12-Feb-2019 23:09:10
== END 2019-02-12 15:47 | disposition home or self-care (01) ==
LOC: ER 10:08
DX: R07.9 Chest pain, unspecified (principal); E10.22 Type 1 diabetes mellitus with diabetic chronic kidney disease; R06.02 Shortness of breath; I13.2 Hypertensive heart and chronic kidney disease with heart failure and with stage 5 chronic kidney disease, or end stage renal disease; N18.6 End stage renal disease; I50.9 Heart failure, unspecified; Z99.2 Dependence on renal dialysis; Z79.4 Long term (current) use of insulin; I25.10 Atherosclerotic heart disease of native coronary artery without angina pectoris; F17.210 Nicotine dependence, cigarettes, uncomplicated
CPT/HCPCS: 36415; 71046; 80053; 82550; 82553; 83690; 84484; 85025; 85610; 93005; 93010; 99285

== ENCOUNTER 2019-02-13 04:33 | Emergency (ER) | payer MEDICARE, MEDICAID ==
[2019-02-13] MEDS ORDERED: ASPIRIN 81 MG TABLET, CHEWABLE PO ONE (05:32)
[2019-02-13 05:42] LABS: ABSOLUTE EOSINOPHILS # (AUTO) 0.3 10^3/uL (0.0-0.6); ABSOLUTE LYMPHOCYTES (AUTO) 2.8 10^3/uL (0.5-4.7); ABSOLUTE MONOCYTES (AUTO) 0.7 10^3/uL (0.1-1.4); ABSOLUTE NEUT (AUTO) 3.8 10^3/uL (1.7-8.2); BASOPHILS % (AUTO) 0.4 % (0-2); EOSINOPHILS % (AUTO) 3.9 % (0-6); HEMATOCRIT 34.9 % (37.9-51.0); LYMPHOCYTES % (AUTO) 37.2 % (13-45); MEAN CORPUSCULAR HEMOGLOBIN 30.9 pg (27.0-33.4); MEAN CORPUSCULAR HGB CONC 34.3 g/dL (32.0-36.0); MEAN CORPUSCULAR VOLUME 90 fl (80-97); MONOCYTES % (AUTO) 8.8 % (3-13); PLATELET COUNT 185 10^3/uL (150-450); RED BLOOD COUNT 3.86 10^6/uL (4.35-5.55); RED CELL DISTRIBUTION WIDTH 14.7 % (11.5-14.0); SEGMENTED NEUTROPHILS % (AUTO) 49.7 % (42-78); TOTAL CELLS COUNTED % (AUTO) 100 %; WHITE BLOOD COUNT 7.6 10^3/uL (4.0-10.5)
[2019-02-13 05:50] LABS: ALANINE AMINOTRANSFERASE 121 U/L (21-72); ALBUMIN 3.9 g/dL (3.5-5.0); ALKALINE PHOSPHATASE 101 U/L (38-126); ANION GAP 18 (5-19); ASPARTATE AMINO TRANSFERASE 173 U/L (17-59); BILIRUBIN,DIRECT 0.3 mg/dL (0.0-0.4); BILIRUBIN,TOTAL 0.3 mg/dL (0.2-1.3); BLOOD UREA NITROGEN 98 mg/dL (7-20); CALCIUM 7.1 mg/dL (8.4-10.2); CARBON DIOXIDE 16 mmol/L (22-30); CHLORIDE 107 mmol/L (98-107); CREATINE KINASE 118 U/L (55-170); GLUCOSE 102 mg/dL (75-110); POTASSIUM 4.8 mmol/L (3.6-5.0); TOTAL PROTEIN 7.2 g/dL (6.3-8.2)
--- NOTE | 2019-02-13 05:57 | ER Document Report ---
Entered by DANIEL HERNANDEZ SCRIBE 02/13/19 0535 Acting as scribe for:XIOMY CASANOVA DO ED Medical Screen (RME) - General Chief Complaint: Chest Pain Stated Complaint: DIFFICULTY BREATHING Time Seen by Provider: 02/13/19 05:26 Primary Care Provider: WILI HERNANDEZ MD [Primary Care Provider] - Follow up as needed Notes: 63-year-old male who presents to the emergency department today with complaints of shortness of breath with associated chest tightness. Patient states he has had a productive cough with sputum that is sometimes "black and other times clear". Patient is a Friday dialysis patient and he missed yesterday's dialysis appointment secondary to being here in the emergency department. Patient states he woke up this morning with shortness of breath, u sed his inhalers which helped minimally, he went to the bathroom, and then became increasingly short of breath. Patient requested BiPAP to "break up the fungus in his lungs". Patient denies fevers. I have greeted and performed a rapid initial assessment of this patient. A comprehensive ED assessment and evaluation of the patient, analysis of test results, and completion of the medical decision making process will be conducted by additional ED providers. Review of systems: Constitutional: Denies fevers Cardiovascular: Chest pain. Respiratory: Cough. Shortness of breath. Physical Exam: General: Alert, appears well. HEENT: Normocephalic. Atraumatic. PERRLA. Extraocular movements intact. Oropharynx clear. Neck: Supple. Respiratory: No respiratory distress. Clear and equal breath sounds bilaterally. Saturating 100% on 2L via nasal cannula. Wet cough. Abdominal: Normal Inspection. No distension. Extremities: Left AKA, Right BKA. AV fistula with palpable thrill in the left upper extremity. Neurological: Normal cognition. AAOx4. Normal speech. Psychological: Normal affect. Normal Mood. Skin: Warm. Dry. Normal color. As the patient is not hypoxic and does have a history of COPD I have asked that the patient be taken off of oxygen and patient states that usually when he has a cough like this he is put on BiPAP and helps to break up the "fungus in his l ungs". I have ordered the patient to be put on BiPAP while we are waiting the rest of his work-up. TRAVEL OUTSIDE OF THE [place] IN LAST 30 DAYS: No - Related Data Allergies/Adverse Reactions: calcitriol Allergy (Verified 08/31/18 14:27) itching Past Medical History - Social History Family history: Reviewed & Not Pertinent - Past Medical History Cardiac Medical History: Reports: Hx Congestive Heart Failure - EF is 40%, with moderate diastolic dysfunction, Hx Coronary Artery Disease, Hx DVT, Hx Heart Attack, Hx Hypercholesterolemia, Hx Hypertension, Hx Peripheral Vascular Disease, Hx Pulmonary Embolism Denies: Hx Atrial Fibrillation Pulmonary Medical History: Reports: Hx Bronchitis, Hx COPD, Hx Pneumonia, Hx Respiratory Failure Denies: Hx Asthma, Hx Sleep Apnea Neurological Medical History: Denies: Hx Migraine, Hx Seizures Endocrine Medical History: Reports: Hx Diabetes Mellitus Type 1 - insulin, Hx Diabetes Mellitus Type 2 - insulin dependent. Denies: Hx Hyperthyroidism, Hx Hypothyroidism Renal/ Medical History: Reports: Hx End Stage Renal Disease - Dialysis MWF with Dr. Pablo Lowe, Hx Hemodialysis, Hx Renal Insufficiency. Denies: Hx Peritoneal Dialysis GI Medical History: Reports: Hx Gastroesophageal Reflux Disease. Denies: Hx Cirrhosis, Hx Crohn's Disease, Hx Hepatitis, Hx Ulcerative Colitis Musculoskeltal Medical History: Reports Hx Arthritis, Denies Hx Fibromyalgia, 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 bilat AKA, Reports Hx Musculoskeletal Trauma Skin Medical History: Denies Hx Eczema, Denies Hx Psoriasis Psychiatric Medical History: Reports: Hx Depression Traumatic Medical History: Denies: Hx Traumatic Brain Injury Infectious Medical History: Reports: Hx HIV - noncompliant with meds. Denies: Hx Hepatitis Past Surgical History: Reports: Hx Orthopedic Surgery - bilateral amputation, R BKA, L AKA, Hx Vascular Surgery - left arm clot removed, IVC filter, thrombectomy 05/18/2018 left arm,. Denies: Other - Endoscopy, dialysis shunt/tunnel graft-right ax-fem bypass-chron occluded - Immunizations Immunizations up to date: Yes Hx Diphtheria, Pertussis, Tetanus Vaccination: Yes History of Influenza Vaccine for 04/2017 - 09/2017 Season: Yes Influenza Administration Date for 04/2017 - 09/2017 Season: 04/20/17 Physical Exam - Vital signs Vitals: Resp BP Pulse Ox 21 H 164/95 H 96 02/13/19 04:50 02/13/19 04:50 02/13/19 04:50 Course - Vital Signs Vital signs: Temp Pulse Resp BP Pulse Ox 23 H 155/85 H 99 02/13/19 05:08 02/13/19 05:08 02/13/19 05:08 - Laboratory Result Diagrams: 02/13/19 04:52 02/13/19 04:52 Laboratory results interpreted by me: 02/13/19 04:52 RBC 3.86 L Hgb 12.0 L Hct 34.9 L RDW 14.7 H Doctor's Discharge - Discharge Referrals: WILI HERNANDEZ MD [Primary Care Provider] - Follow up as needed I personally performed the services described in the documentation, reviewed and edited the documentation which was dictated to the scribe in my presence, and it accurately records my words and actions.
[2019-02-13 06:01] LABS: CREATINE KINASE MB 1.64 ng/mL (<4.55)
[2019-02-13 06:04] LABS: TROPONIN I 0.051 ng/mL
--- NOTE | 2019-02-13 07:12 | RADIOLOGY REPORT (SQ) ---
CLINICAL HISTORY: cough, CP COMPARISON: January 07, 2019. TECHNIQUE: XR CHEST 1 VIEW 02/13/2019 5:32 AM CDT FINDINGS: The heart is mildly enlarged. Lungs are hyperinflated without consolidation. There is no pleural effusion. There is no pneumothorax. There are no acute osseous findings. IMPRESSION: No pneumonia.
[2019-02-13] MEDS ORDERED: IPRATROPIUM/ALBUTEROL 0.5-2.5 MG/3 ML AMPUL NEB ONE (07:33)
--- NOTE | 2019-02-13 08:59 | ER Document Report ---
ED General - General Chief Complaint: Chest Pain Stated Complaint: DIFFICULTY BREATHING Time Seen by Provider: 02/13/19 05:26 Primary Care Provider: WILI HERNANDEZ MD [Primary Care Provider] - Follow up as needed TRAVEL OUTSIDE OF THE [place] IN LAST 30 DAYS: No - HPI Notes: Patient is a 63-year-old gentleman who comes to the emergency department for evaluation of chest pain, cough, difficulty breathing. He has chest pain which may be described as chronic. He has been seen multiple times for this. He describes it as a pain that just hurts. It is worsened with coughing. He was actually seen here yesterday for chest pain. He had a negative work-up. He missed his dialysis secondary to this, so it was set up for today. He denies any fevers. He said this cough for about 2 months. He was actually recently admitted to the hospital for this, started on doxycycline, which he states he took in its entirety. He states he had little in the way of relief from in halers at home. - Related Data Allergies/Adverse Reactions: calcitriol Allergy (Verified 08/31/18 14:27) itching Past Medical History - General Information source: Patient - Social History Smoking Status: Current Every Day Smoker Family History: CAD, CVA, DM, Hyperlipidemia, Hypertension, Malignancy Patient has suicidal ideation: No Patient has homicidal ideation: No - Past Medical History Cardiac Medical History: Reports: Hx Congestive Heart Failure - EF is 40%, with moderate diastolic dysfunction, Hx Coronary Artery Disease, Hx DVT, Hx Heart Attack, Hx Hypercholesterolemia, Hx Hypertension, Hx Peripheral Vascular Disease, Hx Pulmonary Embolism Denies: Hx Atrial Fibrillation Pulmonary Medical History: Reports: Hx Bronchitis, Hx COPD, Hx Pneumonia, Hx Respiratory Failure Denies: Hx Asthma, Hx Sleep Apnea Neurological Medical History: Denies: Hx Migraine, Hx Seizures Endocrine Medical History: Reports: Hx Diabetes Mellitus Type 1 - insulin, Hx D iabetes Mellitus Type 2 - insulin dependent. Denies: Hx Hyperthyroidism, Hx Hypothyroidism Renal/ Medical History: Reports: Hx End Stage Renal Disease - Dialysis MWF with Dr. Pablo Lowe, Hx Hemodialysis, Hx Renal Insufficiency. Denies: Hx Peritoneal Dialysis GI Medical History: Reports: Hx Gastroesophageal Reflux Disease. Denies: Hx Cirrhosis, Hx Crohn's Disease, Hx Hepatitis, Hx Ulcerative Colitis Musculoskeletal Medical History: Reports Hx Arthritis, Denies Hx Fibromyalgia, 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 bilat AKA, Reports Hx Musculoskeletal Trauma Skin Medical History: Denies Hx Eczema, Denies Hx Psoriasis Psychiatric Medical History: Reports: Hx Depression Traumatic Medical History: Denies: Hx Traumatic Brain Injury Infectious Medical History: Reports: Hx HIV - noncompliant with meds. Denies: Hx Hepatitis Past Surgical History: Reports: Hx Orthopedic Surgery - bilateral amputation, R BKA, L AKA, Hx Vascular Surgery - left arm clot removed, IVC filter, thrombectomy 05/18/2018 left arm,. Denies: Other - Endoscopy, dialysis shunt/tunnel graft-right ax-fem bypass-chron occluded - Immunizations Immunizations up to date: Yes Hx Diphtheria, Pertussis, Tetanus Vaccination: Yes Hx Pneumococcal Vaccination: 07/21/10 Review of Systems - Review of Systems Constitutional: No symptoms reported EENT: No symptoms reported Cardiovascular: See HPI Respiratory: No symptoms reported Gastrointestinal: No symptoms reported Genitourinary: No symptoms reported Musculoskeletal: No symptoms reported Skin: No symptoms reported Neurological/Psychological: No symptoms reported Physical Exam - Vital signs Vitals: Resp BP Pulse Ox 21 H 164/95 H 96 02/13/19 04:50 02/13/19 04:50 02/13/19 04:50 - Notes Notes: This is a 63-year-old male appears stated age in no acute distress. Head is normal cephalic and atraumatic. Pupils are equal and round, reactive to light. Oral mucosa is moist. Uvula is midline. Neck is supple without meningismus. Heart is regular rate and rhythm, lungs reveal mildly diminished breath sounds at the bases, but no wheezes, rales, rhonchi. Abdomen is soft and nontender with normal active bowel sounds. Patient has a bilateral BKA. Skin is warm and dry. Patient is awake and alert, oriented x3. Patient is calm, cooperative examiner. Course - Re-evaluation Re-evalutation: 02/13/19 08:56 Patient is a 63-year-old male presents to the emergency department for evaluation. This is his second visit in less than 24 hours in regards to the same symptoms. He had a negative work-up at that time. He had images as initially placed after a rapid medical exam by a colleague. I did go ahead and add a breathing treatment. His troponin was indeterminately elevated, but the patient does need dialysis. It is actually on the lower end of the troponins he has had in the past. I do not suspect cardiac etiology for this patient's pain. He already has a follow-up with Dr. Hernandez scheduled. He needs to be dialyzed this morning. His labs reveal an acidosis and climbing potassium, but no acute abnormalities. I do believe that the patient needs dialyze more than anything else. I will get and send him directly from here to dialysis. He is to follow- up with his urologist and primary care providers, return to the ED with worsening or new concerning symptoms of any sort. - Vital Signs Vital signs: Temp Pulse Resp BP Pulse Ox 14 151/88 H 96 02/13/19 07:01 02/13/19 07:01 02/13/19 07:01 - Laboratory Result Diagrams: 02/13/19 04:52 02/13/19 04:52 Laboratory results interpreted by me: 02/13/19 02/13/19 04:52 04:52 RBC 3.86 L Hgb 12.0 L Hct 34.9 L RDW 14.7 H Carbon Dioxide 16 L BUN 98 H Creatinine 9.59 H Est GFR ( Amer) 7 L Est GFR (Non-Af Amer) 6 L Calcium 7.1 L AST 173 H ALT 121 H - Diagnostic Test Radiology reviewed: Reports reviewed Radiology results interpreted by me: 02/13/19 08:56 Chest X-Ray 02/13/19 05:32 IMPRESSION: No pneumonia. - EKG Interpretation by Me Additional EKG results interpreted by me: 02/13/19 08:58 Sinus mechanism with rate of 82 bpm. First-degree AV block. LVH with strain and associated ST changes. No ST elevation concerning for acute infarction. No significant change compared to prior study performed yesterday. Discharge - Discharge Clinical Impression: End stage renal disease Chest pain Qualifiers: Chest pain type: unspecified Qualified Code(s): R07.9 - Chest pain, unspecified Dyspnea Qualifiers: Dyspnea type: unspecified Qualified Code(s): R06.00 - Dyspnea, unspecified Condition: Stable Disposition: OTHER Instructions: Chest Pain of Unclear Cause ([facility]), Dyspnea, Nonspecific ([facility]) Additional Instructions: He will be taken directly from here to dialysis. Please follow-up with cardiology and primary care next week. Return to the emergency department with worsening or new concerning symptoms. Forms: Smoking Cessation Education Referrals: WILI HERNANDEZ MD [Primary Care Provider] - Follow up as needed
[2019-02-13 11:36] VITALS: BP 157/87
--- NOTE | 2019-02-13 23:15 | EKG REPORT ---
SEVERITY:- ABNORMAL ECG - SINUS RHYTHM PROBABLE LEFT ATRIAL ABNORMALITY LVH WITH IVCD AND SECONDARY REPOL ABNRM ANTEROLATERAL Q WAVES, PROBABLY DUE TO LVH : Confirmed by: Beulah Storm 13-Feb-2019 23:14:12
== END 2019-02-13 11:30 | disposition other institution (70) ==
LOC: ER 04:33
DX: R07.9 Chest pain, unspecified (principal); I44.0 Atrioventricular block, first degree; J44.9 Chronic obstructive pulmonary disease, unspecified; R05 Cough; I12.0 Hypertensive chronic kidney disease with stage 5 chronic kidney disease or end stage renal disease; N18.6 End stage renal disease; E11.22 Type 2 diabetes mellitus with diabetic chronic kidney disease; Z99.2 Dependence on renal dialysis; E87.2 Acidosis; I25.10 Atherosclerotic heart disease of native coronary artery without angina pectoris; I25.2 Old myocardial infarction; F17.200 Nicotine dependence, unspecified, uncomplicated; Z21 Asymptomatic human immunodeficiency virus [HIV] infection status; Z87.01 Personal history of pneumonia (recurrent); Z88.8 Allergy status to other drugs, medicaments and biological substances
CPT/HCPCS: 93005; 94640; 99285; 36415; 82553; 82550; 85025; 80053; 84484; 71045; 93010; A9270; J7620

== ENCOUNTER 2019-02-27 02:57 | Emergency (ER) | payer MEDICARE, MEDICAID ==
[2019-02-27] MEDS ORDERED: ONDANSETRON HCL INJ/PF 4 MG/2 ML SDV IV ONE (03:33)
[2019-02-27] MEDS ORDERED: MORPHINE SULFATE 10 MG/ML INJ IV ONE (03:33)
--- NOTE | 2019-02-27 03:33 | ER Document Report ---
ED Cardiac - General TRAVEL OUTSIDE OF THE [place] IN LAST 30 DAYS: No <CATRINA ALEXANDRE - Last Filed: 02/27/19 08:01> <GUILLENANGELITA - Last Filed: 02/27/19 10:56> - General Chief Complaint: Chest Pain Stated Complaint: CHEST PAIN Time Seen by Provider: 02/27/19 03:22 Primary Care Provider: WILI STORM MD [Primary Care Provider] - Follow up as needed Notes: Patient is a 63-year-old male that comes to the emergency department by EMS from home for chief complaint of chest pain. He states that he woke up with a chest pain at approximately 2 PM today, it is over the left side of his chest. Pain is intermittent. He states that when he lies flat or makes a lot of movement Heema for shortness of breath but denies shortness of breath otherwise. He denies fever/chills, nausea/vomiting. EMS gave him 324 mg of aspirin and 2 sublingual nitroglycerin. Patient also complains of a headache. Past medical history includes hypertension, ESRD on dialysis Friday (last dialysis was earlier today), PE, COPD, IDDM, and cocaine abuse He denies cocaine in the past 6 months. He still smokes. He states thinks he had a heart attack in the past but he has never had stent or bypass. He follows with it admin Dr. Storm, [employer] Dr. Lowe. He states he was supposed to have a test on Friday of this week but he missed it. He is unable to tell me the name of the test. (CATRINA ALEXANDRE) - Related Data Allergies/Adverse Reactions: calcitriol Allergy (Verified 08/31/18 14:27) itching Past Medical History - General Information source: Patient - Social History Smoking Status: Current Every Day Smoker Smoking Education Provided: Yes - <3 min Frequency of alcohol use: None Drug Abuse: Cocaine Lives with: Alone Family History: CAD, CVA, DM, Hyperlipidemia, Hypertension, Malignancy Patient has suicidal ideation: No Patient has homicidal ideation: No - Past Medical History Cardiac Medical History: Reports: Hx Congestive Heart Failure - EF is 40%, with moderate diastolic dysfunction, Hx Coronary Artery Disease, Hx DVT, Hx Heart Attack, Hx Hypercholesterolemia, Hx Hypertension, Hx Peripheral Vascular Disease, Hx Pulmonary Embolism Denies: Hx Atrial Fibrillation Pulmonary Medical History: Reports: Hx Bronchitis, Hx COPD, Hx Pneumonia, Hx Respiratory Failure Denies: Hx Asthma, Hx Sleep Apnea Neurological Medical History: Denies: Hx Migraine, Hx Seizures Endocrine Medical History: Reports: Hx Diabetes Mellitus Type 1 - insulin, Hx Diabetes Mellitus Type 2 - insulin dependent. Denies: Hx Hyperthyroidism, Hx Hypothyroidism Renal/ Medical History: Reports: Hx End Stage Renal Disease - Dialysis MWF with Dr. Pablo Lowe, Hx Hemodialysis, Hx Renal Insufficiency. Denies: Hx Peritoneal Dialysis GI Medical History: Reports: Hx Gastroesophageal Reflux Disease. Denies: Hx Cirrhosis, Hx Crohn's Disease, Hx Hepatitis, Hx Ulcerative Colitis Musculoskeletal Medical History: Reports Hx Arthritis, Denies Hx Fibromyalgia, 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 bilat AKA, Reports Hx Musculoskeletal Trauma Skin Medical History: Denies Hx Eczema, Denies Hx Psoriasis Psychiatric Medical History: Reports: Hx Depression Traumatic Medical History: Denies: Hx Traumatic Brain Injury Infectious Medical History: Reports: Hx HIV - noncompliant with meds. Denies: Hx Hepatitis Past Surgical History: Reports: Hx Orthopedic Surgery - bilateral amputation, R BKA, L AKA, Hx Vascular Surgery - left arm clot removed, IVC filter, thrombectomy 05/18/2018 left arm,. Denies: Other - Endoscopy, dialysis shunt/tunnel graft-right ax-fem bypass-chron occluded - Immunizations Immunizations up to date: Yes Hx Diphtheria, Pertussis, Tetanus Vaccination: Yes Hx Pneumococcal Vaccination: 07/21/10 <CATRINA ALEXANDRE - Last Filed: 02/27/19 08:01> Review of Systems - Review of Systems Constitutional: No symptoms reported EENT: No symptoms reported Cardiovascular: See HPI Respiratory: No symptoms reported Gastrointestinal: No symptoms reported Genitourinary: No symptoms reported Male Genitourinary: No symptoms reported Musculoskeletal: No symptoms reported Skin: No symptoms reported Hematologic/Lymphatic: No symptoms reported Neurological/Psychological: No symptoms reported <CATRINA ALEXANDRE - Last Filed: 02/27/19 08:01> Physical Exam <CATRINA ALEXANDRE - Last Filed: 02/27/19 08:01> - Vital signs Vitals: Resp 02/27/19 03:03 - Notes Notes: GENERAL: Alert, interacts well. No acute distress. HEAD: Normocephalic, atraumatic. EYES: Pupils equal, round, and reactive to light. Extraocular movements intact. ENT: Oral mucosa moist, tongue midline. Oropharynx unremarkable. Airway patent. LUNGS: Minimal Rales in the bilateral lower lung fisher, otherwise clear. No tachypnea or respiratory distress. HEART: Regular rate and rhythm. ABDOMEN: Soft, non-tender. Non-distended. EXTREMITIES: Bilateral lower extremity BKA. Otherwise unremarkable. BACK: no cervical, thoracic, lumbar midline tenderness. No saddle anesthesia, normal distal neurovascular exam. NEUROLOGICAL: Alert and oriented x3. Normal speech. Cranial nerves II through XII grossly intact. PSYCH: Normal affect, normal mood. SKIN: Warm, dry, normal turgor. No rashes or lesions noted. (CATRINA ALEXANDRE) Course - Laboratory Result Diagrams: 02/27/19 03:50 02/27/19 03:50 <CATRINA ALEXANDRE - Last Filed: 02/27/19 08:01> - Laboratory Result Diagrams: 02/27/19 03:50 02/27/19 03:50 - Diagnostic Test Radiology reviewed: Image reviewed, Reports reviewed <ANGELITA GUILLEN - Last Filed: 02/27/19 10:56> - Re-evaluation Re-evalutation: Patient is comfortable in appearance. He is not hypertensive, tachycardic, or febrile. He has no tachypnea or hypoxia. EKG without acute changes. Chest x-ray clear, CBC nonspecific, chemistry shows baseline renal failure with indeterminate troponin which is lower than most of the time. On reevaluation patient has no complaints. Patient states that he missed cardiac testing that he is supposed to perform on Friday although he is unsure of the testing that was supposed to be performed. Plan is to cycle his troponin to make sure he has not had an [place] with the chest pain today and contact his it admin to see what they prefer with his missed testing. Patient states agreement with this plan. 02/27/19 08:01 Report given to Wendi Guillen PA-C pending second troponin and disposition. (CATRINA ALEXANDRE) 02/27/19 10:48 -pt signed out to me by CAIO Alexandre at the end of his shift pending delta trop result and final dispo per cards recommendations. At 10:45 AM: I did speak with Dr. Storm-pts it admin, after the delta troponin had resulted and was pretty much unchanged from previous after discussing the case with ed attending, Dr. Brink, who advised to call Dr. Storm for his advise on dispo. Dr. Storm advised that the patient was supposed to have a stress test on Friday; however, he has missed multiple appointments to schedule the stress test outpatient. He states that no further work-up is indicated at this time and the patient is stable for close outpatient follow-up with them to reschedule his stress test. pt has remained cp free here. pt informed of his findings and the need to f/u closely without fail with cards in the next day or two to schedule his stress test. advised to return for any worsening sx. pt understands and agrees to plan. vss Temp Resp BP Pulse Ox 02/27/19 10:01 17 136/79 H 92 02/27/19 10:00 15 95 02/27/19 09:31 14 146/78 H 93 02/27/19 09:30 16 02/27/19 09:01 14 144/82 H 93 02/27/19 09:00 18 02/27/19 08:31 21 H 141/84 H 94 02/27/19 08:30 14 95 02/27/19 08:01 20 146/86 H 96 02/27/19 08:00 16 94 02/27/19 07:50 98 02/27/19 07:31 25 H 153/91 H 95 02/27/19 07:30 15 95 02/27/19 07:01 20 144/80 H 89 L 02/27/19 07:00 14 92 02/27/19 06:31 17 138/84 H 95 02/27/19 06:30 13 93 02/27/19 06:01 15 147/79 H 92 02/27/19 06:00 12 92 02/27/19 05:31 15 141/72 H 94 02/27/19 05:30 24 H 93 02/27/19 05:01 16 138/72 H 96 02/27/19 05:00 25 H 91 L 02/27/19 04:31 16 150/88 H 95 02/27/19 04:30 12 96 02/27/19 04:01 18 153/78 H 02/27/19 04:00 18 02/27/19 03:31 19 152/93 H 08/10/19 03:30 17 02/27/19 03:14 97.9 F 02/27/19 03:04 13 136/82 H 02/27/19 03:03 19 02/27/19 10:53 (ANGELITA GUILLEN) - Vital Signs Vital signs: Temp Pulse Resp BP Pulse Ox 97.9 F 17 136/79 H 92 02/27/19 03:14 02/27/19 10:01 02/27/19 10:01 02/27/19 10:01 - Laboratory Laboratory results interpreted by me: 02/27/19 02/27/19 03:50 03:50 RBC 4.24 L Hgb 13.0 L RDW 14.3 H Seg Neutrophils % 41.8 L BUN 36 H Creatinine 6.02 H Est GFR ( Amer) 11 L Est GFR (Non-Af Amer) 9 L Direct Bilirubin 0.5 H 02/27/19 10:52 Labs- Entire Visit 02/27/19 02/27/19 02/27/19 03:50 03:50 03:50 WBC 5.4 RBC 4.24 L Hgb 13.0 L Hct 38.5 MCV 91 MCH 30.6 MCHC 33.7 RDW 14.3 H Plt Count 159 Seg Neutrophils % 41.8 L Lymphocytes % 40.9 Monocytes % 12.3 Eosinophils % 4.4 Basophils % 0.6 Absolute Neutrophils 2.3 Absolute Lymphocytes 2.2 Absolute Monocytes 0.7 Absolute Eosinophils 0.2 Absolute Basophils 0.0 Sodium 140.2 Potassium 4.1 Chloride 102 Carbon Dioxide 25 Anion Gap 13 BUN 36 H Creatinine 6.02 H Est GFR ( Amer) 11 L Est GFR (Non-Af Amer) 9 L Glucose 108 Calcium 8.7 Total Bilirubin 0.5 Direct Bilirubin 0.5 H Neonat Total Bilirubin Not Reportable Neonat Direct Bilirubin Not Reportable Neonat Indirect Bili Not Reportable AST 35 ALT 31 Alkaline Phosphatase 77 Troponin I 0.054 Total Protein 7.6 Albumin 4.0 02/27/19 09:53 WBC RBC Hgb Hct MCV MCH MCHC RDW Plt Count Seg Neutrophils % Lymphocytes % Monocytes % Eosinophils % Basophils % Absolute Neutrophils Absolute Lymphocytes Absolute Monocytes Absolute Eosinophils Absolute Basophils Sodium Potassium Chloride Carbon Dioxide Anion Gap BUN Creatinine Est GFR ( Amer) Est GFR (Non-Af Amer) Glucose Calcium Total Bilirubin Direct Bilirubin Neonat Total Bilirubin Neonat Direct Bilirubin Neonat Indirect Bili AST ALT Alkaline Phosphatase Troponin I 0.067 Total Protein Albumin (ANGELITA GUILLEN) - Diagnostic Test Radiology results interpreted by me: 02/27/19 10:53 Chest X-Ray 02/27/19 04:56 IMPRESSION: Clear lungs. (ANGELITA GUILLEN) - EKG Interpretation by Me Additional EKG results interpreted by me: EKG shows sinus rhythm at a rate of 86, prolonged QT at 503, no T wave inversions or ST segment changes in consecutive leads. Left axis deviation present. (CATRINA ALEXANDRE) Discharge <CATRINA ALEXANDRE - Last Filed: 02/27/19 08:01> <ANGELITA GUILLEN - Last Filed: 02/27/19 10:56> - Discharge Clinical Impression: Chest pain of uncertain etiology Condition: Good Disposition: HOME, SELF-CARE Instructions: Chest Pain of Unclear Cause ([facility]) Additional Instructions: Follow-up with PCP/cardiology in 1 to 2 days. Return for any worsening symptoms. continue to take your meds as prescribed. call your it admin's office, dr storm, today to reschedule the stress test appointment that you missed. Referrals: WILI STORM MD [Primary Care Provider] - Follow up in 3-5 days
[2019-02-27 05:19] LABS: ABSOLUTE EOSINOPHILS # (AUTO) 0.2 10^3/uL (0.0-0.6); ABSOLUTE LYMPHOCYTES (AUTO) 2.2 10^3/uL (0.5-4.7); ABSOLUTE MONOCYTES (AUTO) 0.7 10^3/uL (0.1-1.4); ABSOLUTE NEUT (AUTO) 2.3 10^3/uL (1.7-8.2); BASOPHILS % (AUTO) 0.6 % (0-2); EOSINOPHILS % (AUTO) 4.4 % (0-6); HEMATOCRIT 38.5 % (37.9-51.0); LYMPHOCYTES % (AUTO) 40.9 % (13-45); MEAN CORPUSCULAR HEMOGLOBIN 30.6 pg (27.0-33.4); MEAN CORPUSCULAR HGB CONC 33.7 g/dL (32.0-36.0); MEAN CORPUSCULAR VOLUME 91 fl (80-97); MONOCYTES % (AUTO) 12.3 % (3-13); PLATELET COUNT 159 10^3/uL (150-450); RED BLOOD COUNT 4.24 10^6/uL (4.35-5.55); RED CELL DISTRIBUTION WIDTH 14.3 % (11.5-14.0); SEGMENTED NEUTROPHILS % (AUTO) 41.8 % (42-78); TOTAL CELLS COUNTED % (AUTO) 100 %; WHITE BLOOD COUNT 5.4 10^3/uL (4.0-10.5)
[2019-02-27 05:26] LABS: ALKALINE PHOSPHATASE 77 U/L (38-126); ANION GAP 13 (5-19); ASPARTATE AMINO TRANSFERASE 35 U/L (17-59); BILIRUBIN,DIRECT 0.5 mg/dL (0.0-0.4); BILIRUBIN,TOTAL 0.5 mg/dL (0.2-1.3); BLOOD UREA NITROGEN 36 mg/dL (7-20); CALCIUM 8.7 mg/dL (8.4-10.2); CARBON DIOXIDE 25 mmol/L (22-30); CHLORIDE 102 mmol/L (98-107); GLUCOSE 108 mg/dL (75-110); POTASSIUM 4.1 mmol/L (3.6-5.0); TOTAL PROTEIN 7.6 g/dL (6.3-8.2)
--- NOTE | 2019-02-27 05:38 | RADIOLOGY REPORT (SQ) ---
CLINICAL HISTORY: chest pain COMPARISON: 02/13/2019. TECHNIQUE: XR CHEST 1 VIEW 02/27/2019 4:56 AM CDT FINDINGS: Heart is borderline in size. There are surgical clips in the right upper chest. Lungs are clear without consolidation, atelectasis, mass or edema. There is no pleural effusion. There is no pneumothorax. There are no acute osseous findings. IMPRESSION: Clear lungs.
[2019-02-27] MEDS ORDERED: ACETAMINOPHEN 325 MG TABLET PO ONE (08:09)
--- NOTE | 2019-02-27 09:25 | EKG REPORT ---
SEVERITY:- ABNORMAL ECG - SINUS RHYTHM PROBABLE LEFT ATRIAL ABNORMALITY LEFT ANTERIOR FASCICULAR BLOCK LEFT VENTRICULAR HYPERTROPHY PROLONGED QT INTERVAL : Confirmed by: Marco Young MD 27-Feb-2019 09:24:33
[2019-02-27 11:04] VITALS: BP 148/77
== END 2019-02-27 11:20 | disposition home or self-care (01) ==
LOC: ER 02:57
DX: R07.9 Chest pain, unspecified (principal); R51 Headache; E11.22 Type 2 diabetes mellitus with diabetic chronic kidney disease; I12.0 Hypertensive chronic kidney disease with stage 5 chronic kidney disease or end stage renal disease; N18.6 End stage renal disease; F17.200 Nicotine dependence, unspecified, uncomplicated; B20 Human immunodeficiency virus [HIV] disease; Z99.2 Dependence on renal dialysis
CPT/HCPCS: 99285; 93005; 96374; 96375; 36415; 85025; 80053; 84484; 71045; 93010; J2270; J2405

== ENCOUNTER 2019-03-10 05:28 | Emergency (ER) | payer MEDICARE, MEDICAID ==
[2019-03-10] MEDS ORDERED: LIDOCAINE 1% INJ-PF (10 MG/ML) 30 ML SDV NEB ONE (06:02)
--- NOTE | 2019-03-10 06:10 | ER Document Report ---
ED General - General Chief Complaint: Cough Stated Complaint: SORE THROAT Time Seen by Provider: 03/10/19 05:53 Primary Care Provider: WILI HERNANDEZ MD [Primary Care Provider] - Follow up as needed TRAVEL OUTSIDE OF THE [place] IN LAST 30 DAYS: No - Related Data Allergies/Adverse Reactions: calcitriol Allergy (Verified 08/31/18 14:27) itching Past Medical History - Social History Family History: CAD, CVA, DM, Hyperlipidemia, Hypertension, Malignancy - Past Medical History Cardiac Medical History: Reports: Hx Congestive Heart Failure - EF is 40%, with moderate diastolic dysfunction, Hx Coronary Artery Disease, Hx DVT, Hx Heart Attack, Hx Hypercholesterolemia, Hx Hypertension, Hx Peripheral Vascular Disease, Hx Pulmonary Embolism Denies: Hx Atrial Fibrillation Pulmonary Medical History: Reports: Hx Bronchitis, Hx COPD, Hx Pneumonia, Hx Respiratory Failure Denies: Hx Asthma, Hx Sleep Apnea Neurological Medical History: Denies: Hx Migraine, Hx Seizures Endocrine Medical History: Reports: Hx Diabetes Mellitus Type 1 - insulin, Hx Diabetes Mellitus Type 2 - insulin dependent. Denies: Hx Hyperthyroidism, Hx Hypothyroidism Renal/ Medical History: Reports: Hx End Stage Renal Disease - Dialysis MWF with Dr. Pablo Lowe, Hx Hemodialysis, Hx Renal Insufficiency. Denies: Hx Peritoneal Dialysis GI Medical History: Reports: Hx Gastroesophageal Reflux Disease. Denies: Hx Cirrhosis, Hx Crohn's Disease, Hx Hepatitis, Hx Ulcerative Colitis Musculoskeletal Medical History: Reports Hx Arthritis, Denies Hx Fibromyalgia, 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 bilat AKA, Reports Hx Musculoskeletal Trauma Skin Medical History: Denies Hx Eczema, Denies Hx Psoriasis Psychiatric Medical History: Reports: Hx Depression Traumatic Medical History: Denies: Hx Traumatic Brain Injury Infectious Medical History: Reports: Hx HIV - noncompliant with meds. Denies: Hx Hepatitis Past Surgical History: Reports: Hx Orthopedic Surgery - bilateral amputation, R BKA, L AKA, Hx Vascular Surgery - left arm clot removed, IVC filter, thrombectomy 05/18/2018 left arm,. Denies: Other - Endoscopy, dialysis shunt/tunnel graft-right ax-fem bypass-chron occluded - Immunizations Immunizations up to date: Yes Hx Diphtheria, Pertussis, Tetanus Vaccination: Yes Hx Pneumococcal Vaccination: 07/21/10 Physical Exam - Vital signs Vitals: Temp Resp BP Pulse Ox 98.0 F 18 177/87 H 97 03/10/19 05:28 03/10/19 05:28 03/10/19 05:28 03/10/19 05:28 Course - Vital Signs Vital signs: Temp Pulse Resp BP Pulse Ox 98.0 F 18 177/87 H 97 03/10/19 05:28 03/10/19 05:28 03/10/19 05:28 03/10/19 05:28 Discharge - Discharge Referrals: WILI HERNANDEZ MD [Primary Care Provider] - Follow up as needed
--- NOTE | 2019-03-10 06:15 | ER Document Report ---
ED General - General Chief Complaint: Cough Stated Complaint: SORE THROAT Time Seen by Provider: 03/10/19 05:53 Primary Care Provider: WILI HERNANDEZ MD [Primary Care Provider] - Follow up as needed Notes: Patient is a 63-year-old male that comes emergency department for chief complaint of coughing fits, he states that when he coughs it hurts in his throat, and the chest, and in the top of the abdomen. He denies symptoms when he is not coughing. He states that he was having a sleep study last night, stat es that he was coughing a lot during the study and he was told by the personnel to come in and be seen in the emergency department. He denies fever/chills, nausea/vomiting, or any other complaints at this time. He has COPD and continues to smoke, past medical history includes end-stage renal disease on dialysis, he is due this morning for dialysis and had it on Friday. Remaining medical history includes PE, cocaine abuse, PE, HIV, and bilateral BKAs. TRAVEL OUTSIDE OF THE [place] IN LAST 30 DAYS: No - Related Data Allergies/Adverse Reactions: calcitriol Allergy (Verified 08/31/18 14:27) itching Past Medical History - General Information source: Patient - Social History Smoking Status: Current Every Day Smoker Smoking Education Provided: Yes - <3 min Drug Abuse: Cocaine Lives with: Alone Family History: CAD, CVA, DM, Hyperlipidemia, Hypertension, Malignancy Patient has suicidal ideation: No Patient has homicidal ideation: No - Past Medical History Cardiac Medical History: Reports: Hx Congestive Heart Failure - EF is 40%, with moderate diastolic dysfunction, Hx Coronary Artery Disease, Hx DVT, Hx Hypercholesterolemia, Hx Hypertension, Hx Peripheral Vascular Disease, Hx Pulmonary Embolism Denies: Hx Atrial Fibrillation Pulmonary Medical History: Reports: Hx Bronchitis, Hx COPD, Hx Pneumonia, Hx Respiratory Failure Denies: Hx Asthma, Hx Sleep Apnea Neurological Medical History: Denies: Hx Migraine, Hx Seizures Endocrine Medical History: Reports: Hx Diabetes Mellitus Type 2 - insulin dependent. Denies: Hx Hyperthyroidism, Hx Hypothyroidism Renal/ Medical History: Reports: Hx End Stage Renal Disease - Dialysis MWF with Dr. Pablo Lowe, Hx Hemodialysis, Hx Renal Insufficiency. Denies: Hx Peritoneal Dialysis GI Medical History: Reports: Hx Gastroesophageal Reflux Disease. Denies: Hx Cirrhosis, Hx Crohn's Disease, Hx Hepatitis, Hx Ulcerative Colitis Musculoskeletal Medical History: Reports Hx Arthritis, Denies Hx Fibromyalgia, 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 bilat AKA, Reports Hx Musculoskeletal Trauma Skin Medical History: Denies Hx Eczema, Denies Hx Psoriasis Psychiatric Medical History: Reports: Hx Depression Traumatic Medical History: Denies: Hx Traumatic Brain Injury Infectious Medical History: Reports: Hx HIV - noncompliant with meds. Denies: Hx Hepatitis Past Surgical History: Reports: Hx Orthopedic Surgery - bilateral amputation, R BKA, L AKA, Hx Vascular Surgery - left arm clot removed, IVC filter, thrombectomy 05/18/2018 left arm,. Denies: Other - Endoscopy, dialysis shunt/tunnel graft-right ax-fem bypass-chron occluded - Immunizations Immunizations up to date: Yes Hx Diphtheria, Pertussis, Tetanus Vaccination: Yes Hx Pneumococcal Vaccination: 07/21/10 Review of Systems - Review of Systems Constitutional: No symptoms reported EENT: See HPI Cardiovascular: No symptoms reported Respiratory: See HPI Gastrointestinal: No symptoms reported Genitourinary: No symptoms reported Male Genitourinary: No symptoms reported Musculoskeletal: No symptoms reported Skin: No symptoms reported Hematologic/Lymphatic: No symptoms reported Neurological/Psychological: No symptoms reported Physical Exam - Vital signs Vitals: Temp Resp BP Pulse Ox 98.0 F 18 177/87 H 97 03/10/19 05:28 03/10/19 05:28 03/10/19 05:28 03/10/19 05:28 - Notes Notes: GENERAL: Alert, interacts well. No acute distress. HEAD: Normocephalic, atraumatic. EYES: Pupils equal, round, and reactive to light. Extraocular movements intact. ENT: Oral mucosa moist, tongue midline. Oropharynx unremarkable except for some mild irritation and likely postnasal drip. Airway patent. Nares slightly congested, no nasal septal hematoma. Patient complains of tenderness with palpation over the maxillary sinuses but not over the sinuses otherwise. No severe tenderness. NECK: Full range of motion. Supple. Trachea midline. LUNGS: Occasional coughing episodes with congested cough, however no wheezes, rales, or rhonchi are noted. No respiratory distress. HEART: Regular rate and rhythm. No murmur ABDOMEN: Soft, non-tender. Non-distended. GENITOURINARY: Deferred EXTREMITIES: Bilateral BKAs. BACK: no cervical, thoracic, lumbar midline tenderness. NEUROLOGICAL: Alert and oriented x3. Normal speech. Cranial nerves II through XII grossly intact. PSYCH: Normal affect, normal mood. SKIN: Warm, dry, normal turgor. No rashes or lesions noted. Course - Re-evaluation Re-evalutation: Patient has sinus congestion, sinus tenderness, postnasal drip, cough. This is been going on for weeks. He states every time he lies flat he starts having drainage and starts coughing. Chest x-ray is unremarkable, CBC, chemistry nonspecific in approximately baseline, EKG without concerning changes. 03/10/19 07:47 Patient is talkative, smiling, well-appearing. He states he feels much better after the medications including the lidocaine nebulizer. He states he is ready to leave and go to dialysis. He has no current complaints. His lungs are clear to auscultation, he is not hypoxic, he has no tachypnea or signs of distress. D iscussed treatment of sinusitis, expectations, follow-up, return precautions, patient states satisfaction and agreement, stable at time of discharge. - Vital Signs Vital signs: Temp Pulse Resp BP Pulse Ox 98.0 F 18 177/87 H 97 03/10/19 05:28 03/10/19 05:28 03/10/19 05:28 03/10/19 05:28 - Laboratory Result Diagrams: 03/10/19 06:20 03/10/19 06:20 Laboratory results interpreted by me: 03/10/19 03/10/19 06:20 06:20 RBC 3.85 L Hgb 11.8 L Hct 34.6 L RDW 14.3 H BUN 55 H Creatinine 9.37 H Est GFR ( Amer) 7 L Est GFR (Non-Af Amer) 6 L Glucose 132 H Calcium 7.7 L - EKG Interpretation by Me Additional EKG results interpreted by me: EKG shows sinus rhythm at a rate of 77, QTC of 480, left axis deviation. No T wave inversions or ST segment changes in consecutive leads. Discharge - Discharge Clinical Impression: Cough, Sinus congestion, Post-nasal drainage, Tobacco abuse Sinusitis Qualifiers: Sinusitis location: maxillary Chronicity: acute Recurrence: not specified as recurrent Qualified Code(s): J01.00 - Acute maxillary sinusitis, unspecified Condition: Stable Disposition: HOME, SELF-CARE Additional Instructions: Your evaluation indicates sinus infection with postnasal drainage and this is most likely causing the ongoing cough. Take the Augmentin as prescribed, I recommend taking [id number] probiotic to avoid diarrhea as well. Use the Flonase as prescribed. Stop smoking. Follow-up with primary care for additional evaluation and management. Return if you worsen including difficulty breathing, fever, or any other concerning or worsening symptoms. Prescriptions: Amox Tr/Potassium Clavulanate [Augmentin 875-125 Tablet] 1 tab PO BID 7 Days #14 tablet Fluticasone Propionate [Flonase Nasal [place] 50 Mcg/[place] 16 gm] 2 sprays NASL Q12 #1 inhaler Referrals: WILI HERNANDEZ MD [Primary Care Provider] - Follow up as needed
[2019-03-10 06:32] LABS: ABSOLUTE BASOPHILS # (AUTO) 0.1 10^3/uL (0.0-0.2); ABSOLUTE EOSINOPHILS # (AUTO) 0.3 10^3/uL (0.0-0.6); ABSOLUTE LYMPHOCYTES (AUTO) 2.6 10^3/uL (0.5-4.7); ABSOLUTE MONOCYTES (AUTO) 0.8 10^3/uL (0.1-1.4); ABSOLUTE NEUT (AUTO) 2.9 10^3/uL (1.7-8.2); BASOPHILS % (AUTO) 0.9 % (0-2); EOSINOPHILS % (AUTO) 4.6 % (0-6); HEMATOCRIT 34.6 % (37.9-51.0); HEMOGLOBIN 11.8 g/dL (13.5-17.0); LYMPHOCYTES % (AUTO) 39.5 % (13-45); MEAN CORPUSCULAR HEMOGLOBIN 30.5 pg (27.0-33.4); MEAN CORPUSCULAR VOLUME 90 fl (80-97); MONOCYTES % (AUTO) 11.4 % (3-13); PLATELET COUNT 162 10^3/uL (150-450); RED BLOOD COUNT 3.85 10^6/uL (4.35-5.55); RED CELL DISTRIBUTION WIDTH 14.3 % (11.5-14.0); SEGMENTED NEUTROPHILS % (AUTO) 43.6 % (42-78); TOTAL CELLS COUNTED % (AUTO) 100 %; WHITE BLOOD COUNT 6.7 10^3/uL (4.0-10.5)
[2019-03-10] MEDS ORDERED: METOCLOPRAMIDE HCL 10 MG TABLET PO ONE (06:47)
[2019-03-10] MEDS ORDERED: ACETAMINOPHEN 325 MG TABLET PO ONE (06:47)
[2019-03-10] MEDS ORDERED: PROMETHAZINE HCL 25 MG TABLET PO ONE (06:48)
[2019-03-10 07:01] LABS: ALBUMIN 3.6 g/dL (3.5-5.0); ALKALINE PHOSPHATASE 70 U/L (38-126); ANION GAP 14 (5-19); ASPARTATE AMINO TRANSFERASE 23 U/L (17-59); BILIRUBIN,DIRECT 0.4 mg/dL (0.0-0.4); BILIRUBIN,TOTAL 0.4 mg/dL (0.2-1.3); BLOOD UREA NITROGEN 55 mg/dL (7-20); CALCIUM 7.7 mg/dL (8.4-10.2); CARBON DIOXIDE 22 mmol/L (22-30); CHLORIDE 102 mmol/L (98-107); GLUCOSE 132 mg/dL (75-110); POTASSIUM 4.2 mmol/L (3.6-5.0); TOTAL PROTEIN 6.9 g/dL (6.3-8.2)
--- NOTE | 2019-03-10 07:28 | RADIOLOGY REPORT (SQ) ---
EXAM DESCRIPTION: XR CHEST 2 VIEWS COMPLETED DATE/TME: 03/10/2019 06:02 CLINICAL HISTORY: persistent productive cough COMPARISON: None. FINDINGS: Frontal and lateral views of the chest. Atherosclerotic calcification of the thoracic aorta. Heart is not enlarged. Postoperative change in the right upper chest. Minimal linear left basilar opacities. Degenerative change of the spine. Healed mid left clavicular fracture. Upper abdominal soft tissues are unremarkable. IMPRESSION: 1. Minimal linear left basilar opacities may represent mild subsegmental atelectasis.
[2019-03-10 07:59] VITALS: BP 183/92
--- NOTE | 2019-03-10 17:36 | EKG REPORT ---
SEVERITY:- ABNORMAL ECG - SINUS RHYTHM LEFT VENTRICULAR HYPERTROPHY BORDERLINE PROLONGED QT INTERVAL : Confirmed by: Annita Coker MD 10-Mar-2019 17:34:17
== END 2019-03-10 07:57 | disposition home or self-care (01) ==
LOC: ER 05:28
DX: R05 Cough (principal); J44.9 Chronic obstructive pulmonary disease, unspecified; J01.00 Acute maxillary sinusitis, unspecified; R09.81 Nasal congestion; R07.9 Chest pain, unspecified; R07.0 Pain in throat; R09.82 Postnasal drip; R10.10 Upper abdominal pain, unspecified; I25.10 Atherosclerotic heart disease of native coronary artery without angina pectoris; I12.0 Hypertensive chronic kidney disease with stage 5 chronic kidney disease or end stage renal disease; E11.22 Type 2 diabetes mellitus with diabetic chronic kidney disease; N18.6 End stage renal disease; Z79.4 Long term (current) use of insulin; F17.200 Nicotine dependence, unspecified, uncomplicated; Z21 Asymptomatic human immunodeficiency virus [HIV] infection status; Z86.711 Personal history of pulmonary embolism; Z88.8 Allergy status to other drugs, medicaments and biological substances
CPT/HCPCS: 93005; 36415; 85025; 80053; 71046; 93010; A9270 ×2; J3490; 99284

== ENCOUNTER 2019-03-15 07:42 | Emergency (ER) | payer MEDICARE, MEDICAID ==
[2019-03-15] MEDS ORDERED: IPRATROPIUM/ALBUTEROL 0.5-2.5 MG/3 ML AMPUL NEB ONE (08:23)
--- NOTE | 2019-03-15 08:32 | ER Document Report ---
Entered by DANIEL HERNANDEZ SCRIBE 03/15/19 0887 Acting as scribe for:JORGE DAY MD ED General - General Stated Complaint: SHORTNESS OF BREATH Time Seen by Provider: 03/15/19 08:09 Primary Care Provider: WILI HERNANDEZ MD [ACTIVE STAFF] - Follow up as needed Mode of Arrival: Ambulatory Information source: Patient Notes: Patient is a 63 year old male well known to this ED including x5 visits over the last month that presents today with complaints of shortness of breath beginning this morning at around 0200. Patient is a MWF dialysis patient. Patient adds that when he is discharged from here he is "going to find a ride to [place] because every no one at this hospital can figure out what is wrong with his chest". Patient states he tried at home nebulizer treatments with no relief. Patient complains of a headache. TRAVEL OUTSIDE OF THE [place] IN LAST 30 DAYS: No - Related Data Allergies/Adverse Reactions: calcitriol Allergy (Verified 08/31/18 14:27) itching Past Medical History - General Information source: Patient - Social History Smoking Status: Current Every Day Smoker Cigarette use (# per day): Yes Drug Abuse: Cocaine Lives with: Family Family History: CAD, CVA, DM, Hyperlipidemia, Hypertension, Malignancy - Past Medical History Cardiac Medical History: Reports: Hx Congestive Heart Failure - EF is 40%, with moderate diastolic dysfunction, Hx Coronary Artery Disease, Hx DVT, Hx Heart Attack, Hx Hypercholesterolemia, Hx Hypertension, Hx Peripheral Vascular Disease, Hx Pulmonary Embolism Pulmonary Medical History: Reports: Hx Bronchitis, Hx COPD, Hx Pneumonia, Hx Respiratory Failure Neurological Medical History: Endocrine Medical History: Reports: Hx Diabetes Mellitus Type 2 - insulin dependent Renal/ Medical History: Reports: Hx End Stage Renal Disease - Dialysis MWF with Dr. 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, Reports Hx Musculoskeletal Trauma Psychiatric Medical History: Reports: Hx Depression Infectious Medical History: Reports: Hx HIV - noncompliant with meds Past Surgical History: Reports: Hx Orthopedic Surgery - bilateral amputation, R BKA, L AKA, Hx Vascular Surgery - left arm clot removed, IVC filter, thrombectomy 05/18/2018 left arm, Other - Tunnel graft right axillary femoral bypass, dialysis fistula LUE - Immunizations Immunizations up to date: Yes Hx Diphtheria, Pertussis, Tetanus Vaccination: Yes Hx Pneumococcal Vaccination: 07/21/10 Review of Systems - Review of Systems Constitutional: No symptoms reported EENT: No symptoms reported Cardiovascular: No symptoms reported Respiratory: See HPI, Short of breath Gastrointestinal: No symptoms reported Genitourinary: No symptoms reported Male Genitourinary: No symptoms reported Musculoskeletal: No symptoms reported Skin: No symptoms reported Hematologic/Lymphatic: No symptoms reported Neurological/Psychological: See HPI, Headaches -: Yes All other systems reviewed and negative Physical Exam - Vital signs Vitals: Resp BP Pulse Ox 18 165/78 H 96 03/15/19 07:52 03/15/19 07:52 03/15/19 07:52 - Notes Notes: Physical Exam: General: Alert, appears well. HEENT: Normocephalic. Atraumatic. PERRL. Extraocular movements intact. Oropharynx clear. Neck: Supple. Non-tender. Respiratory: No respiratory distress. Faint wheezing bilaterally consistent with extensive smoking history. Cardiovascular: Regular rate and rhythm. Abdominal: Normal Inspection. Non-tender. No distension. Normal Bowel Sounds. Back: No gross abnormalities. Extremities: Upper extremities: Normal inspection. Normal ROM. Lower extremities: Bilateral AKAs Neurological: Normal cognition. AAOx4. Normal speech. Psychological: Normal affect. Normal Mood. Skin: Warm. Dry. Normal color. Course - Re-evaluation Re-evalutation: 03/15/19 08:48 Patient did tell the nurse that he has a headache and would like something for it, but does not want Tylenol because it does not work. 03/15/19 09:22 I was later informed that the patient stated he was leaving, I expect this because I would not provide him narcotics. He is also not happy with the care, because when he makes statements that are not true or are misleading, I will call him out on that and have done so on multiple visits when I have seen him as a patient. For example, today he states that no one can figure out what is going on in his chest, so he is going to get a ride to [place] when he leaves here today. I pointed out that he has COPD due to the smoking that he will not stop doing, and that he has been told this on multiple occasions. - Vital Signs Vital signs: Temp Pulse Resp BP Pulse Ox 98.5 F 14 168/95 H 96 03/15/19 08:45 03/15/19 08:45 03/15/19 09:01 03/15/19 07:52 - Diagnostic Test Radiology reviewed: Image reviewed - Chest x-ray shows borderline enlarged heart with no acute findings. Discharge - Discharge Clinical Impression: Shortness of breath, Wheezing, Tobacco abuse Chronic obstructive pulmonary disease Qualifiers: COPD type: unspecified COPD Qualified Code(s): J44.9 - Chronic obstructive pulmonary disease, unspecified Condition: Stable Disposition: AGAINST MEDICAL ADVICE Referrals: WILI HERNANDEZ MD [ACTIVE STAFF] - Follow up as needed Scribe Attestation: 03/15/19 08:35 I personally performed the services described in the documentation, reviewed and edited the documentation which was dictated to the scribe in my presence, and it accurately records my words and actions. I personally performed the services described in the documentation, reviewed and edited the documentation which was dictated to the scribe in my presence, and it accurately records my words and actions.
--- NOTE | 2019-03-15 09:02 | RADIOLOGY REPORT (SQ) ---
EXAM DESCRIPTION: CHEST SINGLE VIEW COMPLETED DATE/TIME: 03/15/2019 8:47 am REASON FOR STUDY: SOB COMPARISON: 03/10/2019 NUMBER OF VIEWS: One view. TECHNIQUE: Single frontal radiographic view of the chest acquired. LIMITATIONS: None. FINDINGS: LUNGS AND PLEURA: No opacities, masses or pneumothorax. No pleural effusion. MEDIASTINUM AND HILAR STRUCTURES: No masses. Contour normal. HEART AND VASCULAR STRUCTURES: Heart size is stable. No failure. BONES: No acute findings. HARDWARE: None in the chest. OTHER: No other significant finding. IMPRESSION: NO SIGNIFICANT RADIOGRAPHIC FINDING IN THE CHEST. TECHNICAL DOCUMENTATION: JOB ID: [id number] [employer]- All Rights Reserved Reading location - IP/workstation name: [email or web address]
[2019-03-15] MEDS ORDERED: ALBUTEROL SULFATE 0.083% NEB 2.5 MG/3 ML AMPUL NEB ONE (09:10)
[2019-03-15] MEDS ORDERED: METHYLPREDNISOLONE INJ 125 MG/2 ML SDV IV ONE (09:10)
[2019-03-15 09:14] VITALS: BP 168/95
== END 2019-03-15 09:14 | disposition left against medical advice (07) ==
LOC: ER 07:42
DX: Z53.21 Procedure and treatment not carried out due to patient leaving prior to being seen by health care provider (principal); R06.9 Unspecified abnormalities of breathing
CPT/HCPCS: 94640; 99284; 71045; A9270; J7620

== ENCOUNTER 2019-03-17 00:35 | Emergency (ER) | payer MEDICARE, MEDICAID ==
[2019-03-17 00:44] VITALS: BP 153/90
== END 2019-03-17 01:03 | disposition left against medical advice (07) ==
LOC: ER 00:35
DX: Z53.21 Procedure and treatment not carried out due to patient leaving prior to being seen by health care provider (principal); R06.02 Shortness of breath

== ENCOUNTER 2019-04-16 19:05 | Emergency (ER) | payer MEDICARE, MEDICAID ==
[2019-04-16] MEDS ORDERED: PANTOPRAZOLE SODIUM 40 MG VIAL IV ONE (20:13)
[2019-04-16] MEDS ORDERED: MORPHINE SULFATE 10 MG/ML INJ IV ONE ×2 (20:13→23:05)
[2019-04-16] MEDS ORDERED: NORMAL SALINE 1000 ML 1,000 ML IV ONE (20:14)
--- NOTE | 2019-04-16 20:22 | ER Document Report ---
ED General - General Chief Complaint: Nausea/Vomiting Stated Complaint: HEADACHE Time Seen by Provider: 04/16/19 19:54 Primary Care Provider: KELLI MAYNARD MD [Primary Care Provider] - Follow up as needed TRAVEL OUTSIDE OF THE [place] IN LAST 30 DAYS: No - HPI Notes: This is a 63-year-old gentleman who presents today with a complaint of epigastric abdominal pain, nausea, vomiting that started today. The patient has a history of end-stage renal disease on dialysis earlier today. Patient states her symptoms started shortly after. He also describes a slight frontal headache which he states is from all the vomiting. He denies any diarrhea or constipation. He denies any fever or chills. Describes symptoms as moderate. Abdominal pain is worse with palpation. He denies any trauma. He denies any chest pain. - Related Data Allergies/Adverse Reactions: calcitriol Allergy (Verified 08/31/18 14:27) itching Past Medical History - Social History Smoking Status: Current Every Day Smoker Chew tobacco use (# tins/day): No Frequency of alcohol use: None Drug Abuse: None Family History: CAD, CVA, DM, Hyperlipidemia, Hypertension, Malignancy Patient has suicidal ideation: No Patient has homicidal ideation: No - Past Medical History Cardiac Medical History: Reports: Hx Congestive Heart Failure - EF is 40%, with moderate diastolic dysfunction, Hx Coronary Artery Disease, Hx DVT, Hx Heart Attack, Hx Hypercholesterolemia, Hx Hypertension, Hx Peripheral Vascular Diseas e, Hx Pulmonary Embolism Denies: Hx Atrial Fibrillation Pulmonary Medical History: Reports: Hx Bronchitis, Hx COPD, Hx Pneumonia, Hx Respiratory Failure Denies: Hx Asthma, Hx Sleep Apnea Neurological Medical History: Denies: Hx Migraine, Hx Seizures Endocrine Medical History: Reports: Hx Diabetes Mellitus Type 1 - insulin, Hx Diabetes Mellitus Type 2 - insulin dependent. Denies: Hx Hyperthyroidism, Hx Hypothyroidism Renal/ Medical History: Reports: Hx End Stage Renal Disease - Dialysis MWF with Dr. Pablo Lowe, Hx Hemodialysis, Hx Renal Insufficiency. Denies: Hx Peritoneal Dialysis GI Medical History: Reports: Hx Gastroesophageal Reflux Disease. Denies: Hx C irrhosis, Hx Crohn's Disease, Hx Hepatitis, Hx Ulcerative Colitis Musculoskeletal Medical History: Reports Hx Arthritis, Denies Hx Fibromyalgia, 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 bilat AKA, Reports Hx Musculoskeletal Trauma Skin Medical History: Denies Hx Eczema, Denies Hx Psoriasis Psychiatric Medical History: Reports: Hx Depression Traumatic Medical History: Denies: Hx Traumatic Brain Injury Infectious Medical History: Reports: Hx HIV - noncompliant with meds. Denies: Hx Hepatitis Past Surgical History: Reports: Hx Orthopedic Surgery - bilateral amputation, R BKA, L AKA, Hx Vascular Surgery - left arm clot removed, IVC filter, thrombectomy 05/18/2018 left arm, Other - Tunnel graft right axillary femoral bypass, dialysis fistula LUE - Immunizations Immunizations up to date: Yes Hx Diphtheria, Pertussis, Tetanus Vaccination: Yes Hx Pneumococcal Vaccination: 07/21/10 Review of Systems - Review of Systems Respiratory: denies: Cough, Hemoptysis, Short of breath, Wheezing Gastrointestinal: Abdominal pain, Nausea, Vomiting. denies: Diarrhea, Constipation Neurological/Psychological: Headaches - Slight headache -: Yes All other systems reviewed and negative Physical Exam - Vital signs Vitals: Temp Resp BP Pulse Ox 98.9 F 22 H 186/100 H 98 04/16/19 19:10 04/16/19 19:10 04/16/19 19:10 04/16/19 19:10 - General General appearance: Appears well, Alert - Respiratory Respiratory status: No respiratory distress Chest status: Nontender Breath sounds: Normal Chest palpation: Normal - Cardiovascular Rhythm: Regular Heart sounds: Normal auscultation Murmur: No - Abdominal Inspection: Normal Distension: No distension Bowel sounds: Normal Tenderness: Tender - There is epigastric right upper quadrant tenderness. No guarding or rebound. There is no lower abdominal tenderness. Organomegaly: No organomegaly - Neurological Neuro grossly intact: Yes Cognition: Normal Orientation: AAOx4 - Nonfocal neurologic exam. GCS is 15. Star Coma Scale Eye Opening: Spontaneous [place] Coma Scale Verbal: Oriented [place] Coma Scale Motor: Obeys Commands [place] Coma Scale Total: 15 Speech: Normal Sensory: Normal - Psychological Associated symptoms: Normal affect, Normal mood - Skin Skin Temperature: Warm Skin Moisture: Dry Skin Color: Normal Course - Re-evaluation Re-evalutation: 04/16/19 20:21 Differential diagnosis includes nonspecific abdominal pain versus viral syndrome versus gastritis versus pancreatitis versus gallbladder disease versus bowel obstruction. Will check basic labs. Will get ultrasound. We will also get abdominal series. 04/16/19 23:13 Patient reevaluated. Patient states his pain is slightly coming back. He was doing better earlier. Labs and imaging reviewed. We will put him on PPI for gastritis. We will also put him on something for constipation. He is stable for discharge. Discharge instructions discussed with patient. He understands. - Vital Signs Vital signs: Temp Pulse Resp BP Pulse Ox 98.9 F 17 173/98 H 95 04/16/19 19:10 04/16/19 22:00 04/16/19 21:31 04/16/19 21:31 - Laboratory Result Diagrams: 04/16/19 21:20 04/16/19 21:20 Laboratory results interpreted by me: 04/16/19 04/16/19 21:20 21:20 RBC 4.11 L Hgb 12.8 L Hct 37.3 L RDW 14.9 H Creatinine 5.57 H Est GFR ( Amer) 13 L Est GFR (MDRD) Non-Af 10 L Glucose 116 H Discharge - Discharge Clinical Impression: Abdominal pain Qualifiers: Abdominal location: upper abdomen, unspecified Qualified Code(s): R10.10 - Upper abdominal pain, unspecified Gastritis Qualifiers: Gastritis type: unspecified gastritis Chronicity: acute Gastritis bleeding: without bleeding Qualified Code(s): K29.00 - Acute gastritis without bleeding Constipation Qualifiers: Constipation type: unspecified constipation type Qualified Code(s): K59.00 - Constipation, unspecified Condition: Stable Disposition: HOME, SELF-CARE Instructions: Abdominal Pain ([facility]), Constipation ([facility]), Gastritis ([facility]) Additional Instructions: Return if worse or concerns. Prescriptions: Polyethylene Glycol 3350 [Miralax] 1 cap PO DAILY #527 powder Esomeprazole Magnesium [Nexium] 20 mg PO DAILY 30 Days #30 capsule. Ondansetron [Zofran Odt 4 mg Tablet] 1 - 2 tab PO Q4H PRN #15 tab.rapdis PRN Reason: For Nausea/Vomiting Referrals: KELLI MAYNARD MD [Primary Care Provider] - Follow up as needed
[2019-04-16 21:42] LABS: ABSOLUTE EOSINOPHILS # (AUTO) 0.2 10^3/uL (0.0-0.6); ABSOLUTE LYMPHOCYTES (AUTO) 1.7 10^3/uL (0.5-4.7); ABSOLUTE MONOCYTES (AUTO) 0.6 10^3/uL (0.1-1.4); ABSOLUTE NEUT (AUTO) 6.9 10^3/uL (1.7-8.2); BASOPHILS % (AUTO) 0.3 % (0-2); EOSINOPHILS % (AUTO) 2.3 % (0-6); HEMATOCRIT 37.3 % (37.9-51.0); HEMOGLOBIN 12.8 g/dL (13.5-17.0); LYMPHOCYTES % (AUTO) 17.7 % (13-45); MEAN CORPUSCULAR HEMOGLOBIN 31.1 pg (27.0-33.4); MEAN CORPUSCULAR HGB CONC 34.3 g/dL (32.0-36.0); MEAN CORPUSCULAR VOLUME 91 fl (80-97); MONOCYTES % (AUTO) 6.2 % (3-13); PLATELET COUNT 200 10^3/uL (150-450); RED BLOOD COUNT 4.11 10^6/uL (4.35-5.55); RED CELL DISTRIBUTION WIDTH 14.9 % (11.5-14.0); SEGMENTED NEUTROPHILS % (AUTO) 73.5 % (42-78); TOTAL CELLS COUNTED % (AUTO) 100 %; WHITE BLOOD COUNT 9.3 10^3/uL (4.0-10.5)
--- NOTE | 2019-04-16 21:50 | RADIOLOGY REPORT (SQ) ---
EXAM DESCRIPTION: [facility]: XR ABDOMEN SUPINE AND ERECT WITH CHEST (ABD ACUTE SERIES) Views: 3 CLINICAL HISTORY: 63 years Male, abdominal pain COMPARISON: Chest radiograph 03/15/2019 FINDINGS: AP Chest: Lungs are clear without infiltrate, effusion, pneumothorax. Mediastinum is within normal limits for positioning. No acute bone findings. Surgical clips in the right upper chest wall are again noted. Supine and erect AP abdomen: There is moderate colonic fecal retention, without distention. No small bowel distention. No free air or air-fluid levels. Mild degenerative changes are noted in the lower lumbar spine. Several surgical clips are seen in the left pelvis. IMPRESSION: 1. No acute pulmonary findings 2. Moderate colonic fecal retention, without distention. 3. No obstruction or free air.
[2019-04-16 21:56] LABS: ALBUMIN 4.5 g/dL (3.5-5.0); ALKALINE PHOSPHATASE 86 U/L (38-126); ANION GAP 15 (5-19); ASPARTATE AMINO TRANSFERASE 23 U/L (17-59); BILIRUBIN,DIRECT 0.3 mg/dL (0.0-0.4); BILIRUBIN,TOTAL 0.4 mg/dL (0.2-1.3); BLOOD UREA NITROGEN 18 mg/dL (7-20); CALCIUM 9.1 mg/dL (8.4-10.2); CARBON DIOXIDE 25 mmol/L (22-30); CHLORIDE 98 mmol/L (98-107); GLUCOSE 116 mg/dL (75-110); TOTAL PROTEIN 8.2 g/dL (6.3-8.2)
--- NOTE | 2019-04-16 23:01 | RADIOLOGY REPORT (SQ) ---
EXAM DESCRIPTION: [facility]: US ABDOMEN LIMITED CLINICAL HISTORY: 63 years Male; abdominal pain TECHNIQUE: Right upper quadrant ultrasound was performed. COMPARISON: None. FINDINGS: Pancreas: Duct 3 mm diameter. Visualized portions are unremarkable. Liver: 16 cm long. No ductal distention. Portal venous flow is hepatopedal, normal. Gallbladder: normal with no gallstones or sonographic evidence for acute cholecystitis. No pericholecystic fluid. No sonographic Villalta's sign. Common bile duct: 2 mm. Right kidney: 10.8 x 3.7 x 3.6 cm. No hydronephrosis. Cortex is somewhat thin and echogenic. IMPRESSION: 1. No acute findings 2. Right renal atrophy with cortical thinning, suggesting chronic renal disease.
[2019-04-16 23:48] VITALS: BP 156/89
--- NOTE | 2019-04-17 08:58 | EKG REPORT ---
SEVERITY:- ABNORMAL ECG - SINUS RHYTHM LEFT AXIS DEVIATION LEFT VENTRICULAR HYPERTROPHY PROLONGED QT INTERVAL BORDERLINE T ABNORMALITIES, LATERAL LEADS : Confirmed by: Beulah Storm 17-Apr-2019 08:58:05
== END 2019-04-17 00:05 | disposition home or self-care (01) ==
LOC: ER 19:05
DX: R10.10 Upper abdominal pain, unspecified (principal); R51 Headache; K29.00 Acute gastritis without bleeding; K59.00 Constipation, unspecified; I50.9 Heart failure, unspecified; E78.00 Pure hypercholesterolemia, unspecified; I11.0 Hypertensive heart disease with heart failure; E11.9 Type 2 diabetes mellitus without complications; I25.2 Old myocardial infarction; Z79.4 Long term (current) use of insulin; Z89.511 Acquired absence of right leg below knee; Z89.612 Acquired absence of left leg above knee
CPT/HCPCS: 93005; 36415; 83690; 85025; 80053; 74022; 76705; 93010; J2270; C9113; 96374; 96375; 96376; 99285; S0164

== ENCOUNTER 2019-04-26 15:00 | Emergency (ER) | payer MEDICARE, MEDICAID | END 2019-04-26 16:49 | disposition left against medical advice (07) | LOC: ER 15:00 | DX: Z53.21 Procedure and treatment not carried out due to patient leaving prior to being seen by health care provider (principal); R53.1 Weakness ==

== ENCOUNTER 2019-04-30 17:19 | Emergency (ER) | payer MEDICARE, MEDICAID ==
[2019-04-30 18:03] LABS: ABSOLUTE EOSINOPHILS # (AUTO) 0.3 10^3/uL (0.0-0.6); ABSOLUTE LYMPHOCYTES (AUTO) 2.1 10^3/uL (0.5-4.7); ABSOLUTE MONOCYTES (AUTO) 0.7 10^3/uL (0.1-1.4); ABSOLUTE NEUT (AUTO) 5.5 10^3/uL (1.7-8.2); BASOPHILS % (AUTO) 0.3 % (0-2); EOSINOPHILS % (AUTO) 3.6 % (0-6); HEMATOCRIT 36.9 % (37.9-51.0); HEMOGLOBIN 12.7 g/dL (13.5-17.0); LYMPHOCYTES % (AUTO) 24.1 % (13-45); MEAN CORPUSCULAR HGB CONC 34.5 g/dL (32.0-36.0); MEAN CORPUSCULAR VOLUME 90 fl (80-97); MONOCYTES % (AUTO) 8.5 % (3-13); PLATELET COUNT 187 10^3/uL (150-450); RED CELL DISTRIBUTION WIDTH 14.5 % (11.5-14.0); SEGMENTED NEUTROPHILS % (AUTO) 63.5 % (42-78); TOTAL CELLS COUNTED % (AUTO) 100 %; WHITE BLOOD COUNT 8.7 10^3/uL (4.0-10.5)
[2019-04-30] MEDS ORDERED: METOCLOPRAMIDE HCL INJ/PF 10 MG/2 ML SDV IV ONE (18:05)
--- NOTE | 2019-04-30 18:06 | ER Document Report ---
ED Medical Screen (RME) - General Chief Complaint: Nausea/Vomiting Stated Complaint: ABDOMINAL PAIN Time Seen by Provider: 04/30/19 18:03 Primary Care Provider: KELLI MAYNARD MD [Primary Care Provider] - Follow up as needed Mode of Arrival: Medic Information source: Patient Notes: 63-year-old dialysis patient presents emergency department with complaints of abdominal pain that started after he had dialysis today. Reports he has been vomiting since that time. Denies fever or diarrhea. Patient is actively vomiting. He did receive Zofran by EMS but reports it did not help him. I have greeted and performed a rapid initial assessment of this patient. A c omprehensive ED assessment and evaluation of the patient, analysis of test results and completion of the medical decision making process will be conducted by additional ED providers. Dictation of this chart was performed using voice recognition software; therefore, there may be some unintended grammatical errors. TRAVEL OUTSIDE OF THE [place] IN LAST 30 DAYS: No - Related Data Allergies/Adverse Reactions: calcitriol Allergy (Verified 08/31/18 14:27) itching Past Medical History - Social History Family history: Reviewed & Not Pertinent - Past Medical History Cardiac Medical History: Reports: Hx Congestive Heart Failure - EF is 40%, with moderate diastolic dysfunction, Hx Coronary Artery Disease, Hx DVT, Hx Heart Attack, Hx Hypercholesterolemia, Hx Hypertension, Hx Peripheral Vascular Disease, Hx Pulmonary Embolism Denies: Hx Atrial Fibrillation Pulmonary Medical History: Reports: Hx Bronchitis, Hx COPD, Hx Pneumonia, Hx Respiratory Failure Denies: Hx Asthma, Hx Sleep Apnea Neurological Medical History: Denies: Hx Migraine, Hx Seizures Endocrine Medical History: Reports: Hx Diabetes Mellitus Type 1 - insulin, Hx Diabetes Mellitus Type 2 - insulin dependent. Denies: Hx Hyperthyroidism, Hx Hypothyroidism Renal/ Medical History: Reports: Hx End Stage Renal Disease - Dialysis MWF with Dr. Pablo Lowe, Hx Hemodialysis, Hx Renal Insufficiency. Denies: Hx Peritoneal Dialysis GI Medical History: Reports: Hx Gastroesophageal Reflux Disease. Denies: Hx Cirrhosis, Hx Crohn's Disease, Hx Hepatitis, Hx Ulcerative Colitis Musculoskeltal Medical History: Reports Hx Arthritis, Denies Hx Fibromyalgia, 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 bilat AKA, Reports Hx Musculoskeletal Trauma Skin Medical History: Denies Hx Eczema, Denies Hx Psoriasis Psychiatric Medical History: Reports: Hx Depression Traumatic Medical History: Denies: Hx Traumatic Brain Injury Infectious Medical History: Reports: Hx HIV - noncompliant with meds. Denies: Hx Hepatitis Past Surgical History: Reports: Hx Orthopedic Surgery - bilateral amputation, R BKA, L AKA, Hx Vascular Surgery - left arm clot removed, IVC filter, thrombectomy 05/18/2018 left arm, Other - Tunnel graft right axillary femoral bypass, dialysis fistula LUE - Immunizations Immunizations up to date: Yes Hx Diphtheria, Pertussis, Tetanus Vaccination: Yes Physical Exam - Vital signs Vitals: Resp Pulse Ox 14 94 04/30/19 17:25 04/30/19 17:25 Course - Vital Signs Vital signs: Temp Pulse Resp BP Pulse Ox 13 193/89 H 94 04/30/19 17:27 04/30/19 17:27 04/30/19 17:27 - Laboratory Result Diagrams: 04/30/19 17:26 04/30/19 17:26 Doctor's Discharge - Discharge Referrals: KELLI MAYNARD MD [Primary Care Provider] - Follow up as needed
[2019-04-30 18:24] LABS: ALBUMIN 4.2 g/dL (3.5-5.0); ALKALINE PHOSPHATASE 68 U/L (38-126); ANION GAP 14 (5-19); ASPARTATE AMINO TRANSFERASE 21 U/L (17-59); BILIRUBIN,DIRECT 0.3 mg/dL (0.0-0.4); BILIRUBIN,TOTAL 0.3 mg/dL (0.2-1.3); BLOOD UREA NITROGEN 23 mg/dL (7-20); CALCIUM 8.7 mg/dL (8.4-10.2); CARBON DIOXIDE 29 mmol/L (22-30); CHLORIDE 94 mmol/L (98-107); GLUCOSE 109 mg/dL (75-110); POTASSIUM 3.6 mmol/L (3.6-5.0); TOTAL PROTEIN 7.9 g/dL (6.3-8.2)
[2019-04-30] MEDS ORDERED: DICYCLOMINE HCL INJ 20 MG/2 ML AMPULE IM ONE (18:53)
[2019-04-30] MEDS ORDERED: FAMOTIDINE INJ/PF 20 MG/2 ML SDV IV ONE (18:53)
[2019-04-30] MEDS ORDERED: PROMETHAZINE HCL INJ 25 MG/1 ML VIAL IM ONE (20:46)
[2019-04-30] MEDS ORDERED: PHENTOLAMINE MESYLATE INJ 5 MG VIAL IV ONE (20:46)
[2019-04-30] MEDS ORDERED: MORPHINE SULFATE 10 MG/ML INJ IV ONE (21:12)
--- NOTE | 2019-04-30 21:15 | EKG REPORT ---
SEVERITY:- ABNORMAL ECG - SINUS RHYTHM PROBABLE LEFT ATRIAL ABNORMALITY LEFT ANTERIOR FASCICULAR BLOCK LVH WITH SECONDARY REPOLARIZATION ABNORMALITY BORDERLINE PROLONGED QT INTERVAL : Confirmed by: Marco Young MD 30-Apr-2019 21:14:47
--- NOTE | 2019-04-30 23:02 | ER Document Report ---
ED General - General Chief Complaint: Nausea/Vomiting Stated Complaint: ABDOMINAL PAIN Time Seen by Provider: 04/30/19 18:03 Primary Care Provider: KELLI MAYNARD MD [Primary Care Provider] - Follow up as needed Mode of Arrival: Medic TRAVEL OUTSIDE OF THE [place] IN LAST 30 DAYS: No - HPI Notes: Patient is a 63-year-old gentleman who presents to the emergency department for evaluation of abdominal pain, nausea, vomiting. He states that his abdominal pain is generalized. It started after dialysis. He said nausea with a few episodes of nonbloody, nonbilious emesis. He states he had a normal bowel movement recently. He really cannot describe his pain for me other than the state it hurts. No neena fevers to his knowledge. - Related Data Allergies/Adverse Reactions: calcitriol Allergy (Verified 08/31/18 14:27) itching Past Medical History - General Information source: Patient - Social History Smoking Status: Unknown if Ever Smoked Family History: CAD, CVA, DM, Hyperlipidemia, Hypertension, Malignancy Patient has suicidal ideation: No Patient has homicidal ideation: No - Past Medical History Cardiac Medical History: Reports: Hx Congestive Heart Failure - EF is 40%, with moderate diastolic dysfunction, Hx Coronary Artery Disease, Hx DVT, Hx Heart Attack, Hx Hypercholesterolemia, Hx Hypertension, Hx Peripheral Vascular Disease, Hx Pulmonary Embolism Denies: Hx Atrial Fibrillation Pulmonary Medical History: Reports: Hx Bronchitis, Hx COPD, Hx Pneumonia, Hx Respiratory Failure Denies: Hx Asthma, Hx Sleep Apnea Neurological Medical History: Denies: Hx Migraine, Hx Seizures Endocrine Medical History: Reports: Hx Diabetes Mellitus Type 1 - insulin, Hx Diabetes Mellitus Type 2 - insulin dependent. Denies: Hx Hyperthyroidism, Hx Hypothyroidism Renal/ Medical History: Reports: Hx End Stage Renal Disease - Dialysis MWF with Dr. Pablo Lowe, Hx Hemodialysis, Hx Renal Insufficiency. Denies: Hx Peritoneal Dialysis GI Medical History: Reports: Hx Gastroesophageal Reflux Disease. Denies: Hx Cirrhosis, Hx Crohn's Disease, Hx Hepatitis, Hx Ulcerative Colitis Musculoskeletal Medical History: Reports Hx Arthritis, Denies Hx Fibromyalgia, 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 bilat AKA, Reports Hx Musculoskeletal Trauma Skin Medical History: Denies Hx Eczema, Denies Hx Psoriasis Psychiatric Medical History: Reports: Hx Depression Traumatic Medical History: Denies: Hx Traumatic Brain Injury Infectious Medical History: Reports: Hx HIV - noncompliant with meds. Denies: Hx Hepatitis Past Surgical History: Reports: Hx Orthopedic Surgery - bilateral amputation, R BKA, L AKA, Hx Vascular Surgery - left arm clot removed, IVC filter, thrombectomy 05/18/2018 left arm, Other - Tunnel graft right axillary femoral bypass, dialysis fistula LUE - Immunizations Immunizations up to date: Yes Hx Diphtheria, Pertussis, Tetanus Vaccination: Yes Hx Pneumococcal Vaccination: 07/21/10 Review of Systems - Review of Systems Constitutional: No symptoms reported EENT: No symptoms reported Cardiovascular: No symptoms reported Respiratory: No symptoms reported Gastrointestinal: See HPI Genitourinary: No symptoms reported Musculoskeletal: No symptoms reported Skin: No symptoms reported Neurological/Psychological: No symptoms reported Physical Exam - Vital signs Vitals: Resp Pulse Ox 14 94 04/30/19 17:25 04/30/19 17:25 - Notes Notes: Vital signs reviewed, please refer to chart. Head is normocephalic, atraumatic. Pupils equal round, reactive to light. Neck is supple without meningismus. Heart is regular rate and rhythm. Lungs are clear to auscultation bilaterally. Abdomen is soft, diffusely tender without rebound or guarding, normoactive bowel sounds throughout. Extremities without cyanosis, clubbing. Posterior calves are nontender. Peripheral pulses are equal. Skin is warm and dry. Patient is awake, alert, neurological exam is nonfocal. Course - Re-evaluation Re-evalutation: 04/30/19 22:58 Patient presents emergency department for evaluation of abdominal pain, nausea, vomiting. Laboratory investigations are largely unremarkable for anything acute. His pain improved significantly with facet, Bentyl, morphine. He has been resting comfortably. We will send him home with close follow-up. I am not comfortable giving this patient Zofran as a result of his prolonged QT interval. He is told to take small, frequent sips of clear liquids and return if he has worsening. - Vital Signs Vital signs: Temp Pulse Resp BP Pulse Ox 99.0 F 18 165/79 H 90 L 04/30/19 23:31 04/30/19 23:31 04/30/19 23:31 04/30/19 23:01 - Laboratory Result Diagrams: 04/30/19 17:26 04/30/19 17:26 Laboratory results interpreted by me: 04/30/19 04/30/19 17:26 17:26 RBC 4.10 L Hgb 12.7 L Hct 36.9 L RDW 14.5 H Sodium 136.7 L Chloride 94 L BUN 23 H Creatinine 5.34 H Est GFR ( Amer) 13 L Est GFR (MDRD) Non-Af 11 L - EKG Interpretation by Me Additional EKG results interpreted by me: 04/30/19 23:00 Sinus mechanism with a rate of 91 bpm. Left axis deviation, IVCD. Borderline prolonged QT interval. Nonspecific ST changes, but no acute changes concerning for ischemia or infarction. No significant change in compared to prior study. Discharge - Discharge Clinical Impression: Nausea and vomiting Qualifiers: Vomiting type: unspecified Vomiting Intractability: non-intractable Qualified Code(s): R11.2 - Nausea with vomiting, unspecified Abdominal pain Qualifiers: Abdominal location: generalized Qualified Code(s): R10.84 - Generalized abdominal pain Condition: Stable Disposition: HOME, SELF-CARE Instructions: Abdominal Pain ([facility]), Vomiting ([facility]) Additional Instructions: Rest. Small, frequent sips of clear fluids. Follow-up with your primary care provider on Friday. If you develop worsening or new concerning symptoms of any sort, return immediately to the emergency department for reevaluation. Referrals: KELLI MAYNARD MD [Primary Care Provider] - Follow up as needed
[2019-04-30 23:33] VITALS: BP 165/79
[2019-04-30] MEDS ORDERED: ACETAMINOPHEN 325 MG TABLET PO ONE (23:46)
== END 2019-04-30 23:56 | disposition home or self-care (01) ==
LOC: ER 17:19
DX: R11.2 Nausea with vomiting, unspecified (principal); R10.84 Generalized abdominal pain; E10.22 Type 1 diabetes mellitus with diabetic chronic kidney disease; I13.2 Hypertensive heart and chronic kidney disease with heart failure and with stage 5 chronic kidney disease, or end stage renal disease; I50.30 Unspecified diastolic (congestive) heart failure; N18.6 End stage renal disease; Z99.2 Dependence on renal dialysis; Z79.4 Long term (current) use of insulin; Z21 Asymptomatic human immunodeficiency virus [HIV] infection status; Z89.612 Acquired absence of left leg above knee; Z89.511 Acquired absence of right leg below knee
CPT/HCPCS: 93005; 36415; 83690; 85025; 80053; 93010; A9270; J0500; J2765; J2270; J2760; J2550; S0028; 96374; 96375; 99284

== ENCOUNTER 2019-08-03 10:08 | Emergency (ER) | payer MEDICARE, MEDICAID ==
--- NOTE | 2019-08-03 11:03 | ER Document Report ---
ED Medical Screen (RME) - General Chief Complaint: Shortness Of Breath Stated Complaint: SHORTNESS OF BREATH Time Seen by Provider: 08/03/19 10:53 Primary Care Provider: KELLI MAYNARD MD [Primary Care Provider] - Follow up as needed Mode of Arrival: Wheelchair Information source: Patient Notes: 64-year-old male patient with multiple comorbidities presenting to the emergency department with chief complaint of shortness of breath and abdominal pain. Patient has a history of multiple MIs, has a history of CHF. Patient is wheelchair-bound due to a right BKA. Patient is well-known to this facility. Patient is alert, oriented, stating that dialysis tried sending him over yesterday however he tried to wait out his symptoms but they got worse today. I have greeted and performed a rapid initial assessment of this patient. A comprehensive ED assessment and evaluation of the patient, analysis of test results and completion of the medical decision making process will be conducted by additional ED providers. I have specifically instructed the patient or family members with the patient to immediately return to any nursing staff should anything change in the patient's condition or with their chief complaint. TRAVEL OUTSIDE OF THE [place] IN LAST 30 DAYS: No - Related Data Allergies/Adverse Reactions: calcitriol Allergy (Verified 08/31/18 14:27) itching Past Medical History - Social History Family history: Reviewed & Not Pertinent - Past Medical History Cardiac Medical History: Reports: Hx Congestive Heart Failure - EF is 40%, with moderate diastolic dysfunction, Hx Coronary Artery Disease, Hx DVT, Hx Heart Attack, Hx Hypercholesterolemia, Hx Hypertension, Hx Peripheral Vascular Disease, Hx Pulmonary Embolism Denies: Hx Atrial Fibrillation Pulmonary Medical History: Reports: Hx Bronchitis, Hx COPD, Hx Pneumonia, Hx Respiratory Failure Denies: Hx Asthma, Hx Sleep Apnea Neurological Medical History: Denies: Hx Migraine, Hx Seizures Endocrine Medical History: Reports: Hx Diabetes Mellitus Type 1 - insulin, Hx Diabetes Mellitus Type 2 - insulin dependent. Denies: Hx Hyperthyroidism, Hx Hy pothyroidism Renal/ Medical History: Reports: Hx End Stage Renal Disease - Dialysis MWF with Dr. Pablo Lowe, Hx Hemodialysis, Hx Renal Insufficiency. Denies: Hx Peritoneal Dialysis GI Medical History: Reports: Hx Gastroesophageal Reflux Disease. Denies: Hx Cirrhosis, Hx Crohn's Disease, Hx Hepatitis, Hx Ulcerative Colitis Musculoskeltal Medical History: Reports Hx Arthritis, Denies Hx Fibromyalgia, 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 bilat AKA, Reports Hx Musculoskeletal Trauma Skin Medical History: Denies Hx Eczema, Denies Hx Psoriasis Psychiatric Medical History: Reports: Hx Depression Traumatic Medical History: Denies: Hx Traumatic Brain Injury Infectious Medical History: Reports: Hx HIV - noncompliant with meds. Denies: Hx Hepatitis Past Surgical History: Reports: Hx Orthopedic Surgery - bilateral amputation, R BKA, L AKA, Hx Vascular Surgery - left arm clot removed, IVC filter, thrombectomy 05/18/2018 left arm, Other - Tunnel graft right axillary femoral bypass, dialysis fistula LUE - Immunizations Immunizations up to date: Yes Hx Diphtheria, Pertussis, Tetanus Vaccination: Yes Physical Exam - Vital signs Vitals: Temp Pulse Resp BP Pulse Ox 97.8 F 79 20 129/70 H 99 08/03/19 10:56 08/03/19 10:56 08/03/19 10:56 08/03/19 10:56 08/03/19 10:56 Course - Vital Signs Vital signs: Temp Pulse Resp BP Pulse Ox 97.8 F 79 20 129/70 H 99 08/03/19 10:56 08/03/19 10:56 08/03/19 10:56 08/03/19 10:56 08/03/19 10:56 Doctor's Discharge - Discharge Referrals: KELLI MAYNARD MD [Primary Care Provider] - Follow up as needed
--- NOTE | 2019-08-03 11:21 | EKG REPORT ---
SEVERITY:- ABNORMAL ECG - SINUS RHYTHM VENTRICULAR PREMATURE COMPLEX LEFT AXIS DEVIATION LVH WITH SECONDARY REPOLARIZATION ABNORMALITY BORDERLINE PROLONGED QT INTERVAL : Confirmed by: Annita Coker MD 03-Aug-2019 11:21:21
[2019-08-03 12:29] LABS: ABSOLUTE EOSINOPHILS # (AUTO) 0.2 10^3/uL (0.0-0.6); ABSOLUTE LYMPHOCYTES (AUTO) 3.1 10^3/uL (0.5-4.7); ABSOLUTE MONOCYTES (AUTO) 0.5 10^3/uL (0.1-1.4); BASOPHILS % (AUTO) 0.3 % (0-2); EOSINOPHILS % (AUTO) 2.5 % (0-6); LYMPHOCYTES % (AUTO) 45.9 % (13-45); MEAN CORPUSCULAR HEMOGLOBIN 31.6 pg (27.0-33.4); MEAN CORPUSCULAR HGB CONC 34.2 g/dL (32.0-36.0); MEAN CORPUSCULAR VOLUME 92 fl (80-97); MONOCYTES % (AUTO) 6.8 % (3-13); PLATELET COUNT 175 10^3/uL (150-450); SEGMENTED NEUTROPHILS % (AUTO) 44.5 % (42-78); TOTAL CELLS COUNTED % (AUTO) 100 %; WHITE BLOOD COUNT 6.7 10^3/uL (4.0-10.5)
--- NOTE | 2019-08-03 12:55 | RADIOLOGY REPORT (SQ) ---
EXAM DESCRIPTION: CHEST SINGLE VIEW COMPLETED DATE/TIME: 08/03/2019 12:06 pm REASON FOR STUDY: shortness of breath COMPARISON: CT chest 02/05/2019 Chest films 02/12/2019, 03/15/2019 EXAM PARAMETERS: NUMBER OF VIEWS: One view. TECHNIQUE: Single frontal radiographic view of the chest acquired. RADIATION DOSE: NA LIMITATIONS: None. FINDINGS: LUNGS AND PLEURA: Upper lobes are hyperinflated and hyperlucent from obstructive disease. Minimal right basilar atelectasis. No fluffy alveolar infiltrates worrisome for edema or pneumonia. No pleural effusion. No pneumothor ax. MEDIASTINUM AND HILAR STRUCTURES: No masses. Contour normal. HEART AND VASCULAR STRUCTURES: Heart normal in size. Normal vasculature. BONES: No acute findings. HARDWARE: Surgical clips right axilla for a right-sided axillary to femoral bypass graft OTHER: No other significant finding. IMPRESSION: Obstructive lung disease Minimal right basilar atelectasis TECHNICAL DOCUMENTATION: JOB ID: [id number] [employer]- All Rights Reserved Reading location - IP/workstation name: [email or web address]
[2019-08-03 12:57] LABS: ALBUMIN 4.1 g/dL (3.5-5.0); ALKALINE PHOSPHATASE 65 U/L (38-126); ANION GAP 16 (5-19); ASPARTATE AMINO TRANSFERASE 30 U/L (17-59); BILIRUBIN,DIRECT 0.4 mg/dL (0.0-0.4); BILIRUBIN,TOTAL 0.4 mg/dL (0.2-1.3); BLOOD UREA NITROGEN 47 mg/dL (7-20); CALCIUM 8.2 mg/dL (8.4-10.2); CARBON DIOXIDE 23 mmol/L (22-30); CHLORIDE 100 mmol/L (98-107); GLUCOSE 130 mg/dL (75-110); POTASSIUM 3.8 mmol/L (3.6-5.0); TOTAL PROTEIN 7.8 g/dL (6.3-8.2)
[2019-08-03 13:15] LABS: TROPONIN I 0.05 ng/mL
--- NOTE | 2019-08-03 13:45 | ER Document Report ---
ED General - General Chief Complaint: Shortness Of Breath Stated Complaint: SHORTNESS OF BREATH Time Seen by Provider: 08/03/19 10:53 Primary Care Provider: KELLI MAYNARD MD [ACTIVE STAFF] - Follow up as needed Mode of Arrival: Wheelchair Notes: Patient takes Coumadin but is out for the last 24 to 36 hours. Usually takes 10 mg on Friday and 8 mg on Friday TRAVEL OUTSIDE OF THE [place] IN LAST 30 DAYS: No - HPI Patient complains to provider of: Complains of occasional productive green phlegm cough for 3 days. 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 Is oriented conversive very pleasant and laying in gurney watching television Exacerbated by: Denies Relieved by: Denies Similar symptoms previously: Yes Recently seen / treated by doctor: Yes - Patient reports he has had productive green phlegm - Related Data Allergies/Adverse Reactions: calcitriol Allergy (Verified 08/31/18 14:27) itching Home Medications: [employer] [facility] [employer] Past Medical History - General Information source: Patient - Social History Smoking Status: Current Every Day Smoker Cigarette use (# per day): Yes Chew tobacco use (# tins/day): No Smoking Education Provided: Yes Frequency of alcohol use: None Drug Abuse: None Lives with: Other - With roommate as well as his dog; both of whom are healthy at this time Family History: CAD, CVA, DM, Hyperlipidemia, Hypertension, Malignancy Patient has suicidal ideation: No Patient has homicidal ideation: No - Medical History Medical History: Other - Past Medical History Cardiac Medical History: Reports: Hx Congestive Heart Failure - EF is 40%, with moderate diastolic dysfunction, Hx Coronary Artery Disease, Hx DVT, Hx Heart Attack, Hx Hypercholesterolemia, Hx Hypertension, Hx Peripheral Vascular Diseas e, Hx Pulmonary Embolism Denies: Hx Atrial Fibrillation Pulmonary Medical History: Reports: Hx Bronchitis, Hx COPD, Hx Pneumonia, Hx Respiratory Failure Denies: Hx Asthma, Hx Sleep Apnea Neurological Medical History: Denies: Hx Migraine, Hx Seizures Endocrine Medical History: Reports: Hx Diabetes Mellitus Type 1 - insulin, Hx Diabetes Mellitus Type 2 - insulin dependent. Denies: Hx Hyperthyroidism, Hx Hypothyroidism Renal/ Medical History: Reports: Hx End Stage Renal Disease - Dialysis MWF with Dr. Pablo Lowe, Hx Hemodialysis, Hx Renal Insufficiency. Denies: Hx Peritoneal Dialysis GI Medical History: Reports: Hx Gastroesophageal Reflux Disease. Denies: Hx C irrhosis, Hx Crohn's Disease, Hx Hepatitis, Hx Ulcerative Colitis Musculoskeletal Medical History: Reports Hx Arthritis, Denies Hx Fibromyalgia, 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 bilat AKA, Reports Hx Musculoskeletal Trauma Skin Medical History: Denies Hx Eczema, Denies Hx Psoriasis Psychiatric Medical History: Reports: Hx Depression Traumatic Medical History: Denies: Hx Traumatic Brain Injury Infectious Medical History: Reports: Hx HIV - noncompliant with meds. Denies: Hx Hepatitis Past Surgical History: Reports: Hx Orthopedic Surgery - bilateral amputation, R BKA, L AKA, Hx Vascular Surgery - left arm clot removed, IVC filter, thrombectomy 05/18/2018 left arm, Other - Tunnel graft right axillary femoral bypass, dialysis fistula LUE - Immunizations Immunizations up to date: Yes Hx Diphtheria, Pertussis, Tetanus Vaccination: Yes Hx Pneumococcal Vaccination: 07/21/10 Review of Systems - Review of Systems -: Yes ROS unobtainable due to patient's medical condition Constitutional: Malaise, Weakness EENT: Nose congestion Cardiovascular: No symptoms reported Respiratory: Cough Gastrointestinal: No symptoms reported Physical Exam - Vital signs Vitals: Temp Pulse Resp BP Pulse Ox 97.8 F 79 20 129/70 H 99 08/03/19 10:56 08/03/19 10:56 08/03/19 10:56 08/03/19 10:56 08/03/19 10:56 Interpretation: Normal - General General appearance: Appears well, Alert In distress: None - HEENT Head: Normocephalic Eyes: Normal Conjunctiva: Normal Cornea: Normal Extraocular movements intact: Yes Eyelashes: Normal Pupils: PERRL Sinus: Normal Nasal: Normal Mouth/Lips: Normal Mucous membranes: Normal Pharynx: Normal Neck: Normal - Respiratory Respiratory status: No respiratory distress Chest status: Nontender Breath sounds: Nonproductive cough, Other - Patient wheeze clears with cough Chest palpation: Normal - Abdominal Inspection: Normal Distension: No distension - Back Back: Normal - Neurological Neuro grossly intact: Yes Cognition: Normal Orientation: AAOx4 Star Coma Scale Verbal: Oriented Speech: Normal Cranial nerves: Normal Cerebellar coordination: Normal Course - Re-evaluation Re-evalutation: 08/03/19 14:24 DeGeorge advised Rocephin Zithromax and follow-up for dialysis tomorrow - Vital Signs Vital signs: Temp Pulse Resp BP Pulse Ox 97.8 F 79 14 137/82 H 96 08/03/19 10:56 08/03/19 10:56 08/03/19 13:02 08/03/19 13:02 08/03/19 13:02 - Laboratory Result Diagrams: 08/03/19 12:17 08/03/19 12:17 Laboratory results interpreted by me: 08/03/19 08/03/19 08/03/19 12:17 12:17 12:17 RBC 3.80 L Hgb 12.0 L Hct 35.0 L RDW 15.0 H Lymph % (Auto) 45.9 H BUN 47 H Creatinine 7.99 H Est GFR ( Amer) 8 L Est GFR (MDRD) Non-Af 7 L Glucose 130 H Calcium 8.2 L NT-Pro-B Natriuret Pep 96615 H - Diagnostic Test Radiology reviewed: Reports reviewed - Transfer of Care Notes: 08/03/19 14:35 Patient received IV Rocephin and Zithromax and Rx for Zithromax and Tessalon Perles outpatient Critical Care Note - Critical Care Note Total time excluding time spent on procedures (mins): 30 Comments: Dr. Pablo Lowe nephrology was called at 1358. Patient is in no distress but has dialysis tomorrow Discharge - Discharge Clinical Impression: Bronchitis, CHF exacerbation, Fluid overload, ESRD on dialysis Condition: Good Disposition: HOME, SELF-CARE Additional Instructions: Follow-up with dialysis tomorrow return to ER as needed take medicines as directed make sure you take your Coumadin Prescriptions: Benzonatate [Tessalon Perles 100 mg Capsule] 100 mg PO Q8HP PRN #40 capsule PRN Reason: Azithromycin [Zithromax 250 mg Tablet] 250 mg PO ASDIR PRN #6 tablet PRN Reason: Azithromycin [Zithromax 250 mg Tablet] 250 mg PO ASDIR PRN #6 tablet PRN Reason: Referrals: KELLI MAYNARD MD [ACTIVE STAFF] - Follow up as needed
[2019-08-03] MEDS ORDERED: AZITHROMYCIN 250 MG TABLET PO ONE (13:59)
[2019-08-03] MEDS ORDERED: BENZONATATE 100 MG CAPSULE PO ONE (14:02)
[2019-08-03] MEDS ORDERED: CEFTRIAXONE 1 GM/D5W RTU 1 GM/50 ML RTUPB IV ONE (14:22)
[2019-08-03 15:20] VITALS: BP 154/103
== END 2019-08-03 15:54 | disposition home or self-care (01) ==
LOC: ER 10:08
DX: J40 Bronchitis, not specified as acute or chronic (principal); I13.2 Hypertensive heart and chronic kidney disease with heart failure and with stage 5 chronic kidney disease, or end stage renal disease; I50.30 Unspecified diastolic (congestive) heart failure; E11.22 Type 2 diabetes mellitus with diabetic chronic kidney disease; N18.6 End stage renal disease; Z99.2 Dependence on renal dialysis; E11.51 Type 2 diabetes mellitus with diabetic peripheral angiopathy without gangrene; I25.10 Atherosclerotic heart disease of native coronary artery without angina pectoris; J44.9 Chronic obstructive pulmonary disease, unspecified; R06.02 Shortness of breath; R05 Cough; R53.81 Other malaise; R09.81 Nasal congestion; R53.1 Weakness; F17.210 Nicotine dependence, cigarettes, uncomplicated; Z86.711 Personal history of pulmonary embolism; Z86.718 Personal history of other venous thrombosis and embolism; Z21 Asymptomatic human immunodeficiency virus [HIV] infection status
CPT/HCPCS: 93005; 99291; 96365; 36415; 85025; 80053; 84484; 83880; 71045; 93010; A9270 ×2; J0696

== ENCOUNTER 2019-08-22 01:04 | Inpatient (IN) | payer MEDICARE, MEDICAID ==
[2019-08-22 02:01] LABS: ABSOLUTE BASOPHILS # (AUTO) 0.1 10^3/uL (0.0-0.2); ABSOLUTE EOSINOPHILS # (AUTO) 0.4 10^3/uL (0.0-0.6); ABSOLUTE MONOCYTES (AUTO) 0.8 10^3/uL (0.1-1.4); TOTAL CELLS COUNTED % (AUTO) 100 %
[2019-08-22 02:06] LABS: ABSOLUTE LYMPHOCYTES (AUTO) 3.6 10^3/uL (0.5-4.7); ABSOLUTE NEUT (AUTO) 4.1 10^3/uL (1.7-8.2); BASOPHILS % (AUTO) 1.2 % (0-2); EOSINOPHILS % (AUTO) 4.5 % (0-6); HEMATOCRIT 31.9 % (37.9-51.0); MEAN CORPUSCULAR HEMOGLOBIN 31.9 pg (27.0-33.4); MEAN CORPUSCULAR HGB CONC 34.6 g/dL (32.0-36.0); MEAN CORPUSCULAR VOLUME 92 fl (80-97); MONOCYTES % (AUTO) 8.7 % (3-13); PLATELET COUNT 184 10^3/uL (150-450); RED BLOOD COUNT 3.46 10^6/uL (4.35-5.55); RED CELL DISTRIBUTION WIDTH 14.7 % (11.5-14.0); SEGMENTED NEUTROPHILS % (AUTO) 45.6 % (42-78)
[2019-08-22 02:13] LABS: ALKALINE PHOSPHATASE 70 U/L (38-126); ASPARTATE AMINO TRANSFERASE 27 U/L (17-59); BILIRUBIN,DIRECT 0.4 mg/dL (0.0-0.4); BILIRUBIN,TOTAL 0.4 mg/dL (0.2-1.3); BLOOD UREA NITROGEN 104 mg/dL (7-20); CREATINE KINASE 146 U/L (55-170); GLUCOSE 82 mg/dL (75-110); POTASSIUM 4.9 mmol/L (3.6-5.0); TOTAL PROTEIN 7.7 g/dL (6.3-8.2)
[2019-08-22 02:19] LABS: CARBON DIOXIDE 13 mmol/L (22-30); CHLORIDE 109 mmol/L (98-107)
[2019-08-22 02:29] LABS: CREATINE KINASE MB 2.94 ng/mL (<4.55)
[2019-08-22 02:34] LABS: ANION GAP 21 (5-19)
[2019-08-22 02:36] LABS: CALCIUM 6.9 mg/dL (8.4-10.2); TROPONIN I 0.049 ng/mL
--- NOTE | 2019-08-22 03:34 | RADIOLOGY REPORT (SQ) ---
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 Lungs are clear without consolidation, atelectasis, mass or edema. There is no pleural effusion. There is no pneumothorax. There are no acute osseous findings. IMPRESSION: Clear lungs.
--- NOTE | 2019-08-22 05:15 | ER Document Report ---
ED General - General Chief Complaint: Chest Pain > 30 Stated Complaint: CHEST PAIN Time Seen by Provider: 08/22/19 05:12 Primary Care Provider: OLIVER ARTHUR MD [Primary Care Provider] - Follow up as needed Notes: Patient is a 63-year-old male that comes emergency department by EMS for chief complaint of waking up tonight with pain in his chest, he states he has a cough with some sputum production, he states that he felt a little bit short of breath as well. He states now he only has chest pain when he coughs. He denies fever/chills, nausea/vomiting, abdominal pain, dizziness. Patient was given 324 mg of aspirin by EMS and also two sublingual nitroglycerin. Past medical history includes hypertension, ESRD on dialysis Friday (last dialysis was on Friday), PE, COPD, IDDM, and chronic cocaine abuse. He also smokes. He states he believes he had a heart attack in the past but he has never had stent or bypass. He follows with lead refiner Dr. Storm, rush seater Dr. Lowe. TRAVEL OUTSIDE OF THE [place] IN LAST 30 DAYS: No - Related Data Allergies/Adverse Reactions: calcitriol Allergy (Verified 08/31/18 14:27) itching Past Medical History - Social History Smoking Status: Current Every Day Smoker Family History: CAD, CVA, DM, Hyperlipidemia, Hypertension, Malignancy Patient has suicidal ideation: No Patient has homicidal ideation: No - Past Medical History Cardiac Medical History: Reports: Hx Congestive Heart Failure - EF is 40%, with moderate diastolic dysfunction, Hx Coronary Artery Disease, Hx DVT, Hx Heart Attack, Hx Hypercholesterolemia, Hx Hypertension, Hx Peripheral Vascular Disease, Hx Pulmonary Embolism Denies: Hx Atrial Fibrillation Pulmonary Medical History: Reports: Hx Bronchitis, Hx COPD, Hx Pneumonia, Hx Respiratory Failure Denies: Hx Asthma, Hx Sleep Apnea Neurological Medical History: Denies: Hx Migraine, Hx Seizures Endocrine Medical History: Reports: Hx Diabetes Mellitus Type 1 - insulin, Hx Diabetes Mellitus Type 2 - insulin dependent. Denies: Hx Hyperthyroidism, Hx Hypothyroidism Renal/ Medical History: Reports: Hx End Stage Renal Disease - Dialysis MWF with Dr. Pablo Lowe, Hx Hemodialysis, Hx Renal Insufficiency. Denies: Hx Peritoneal Dialysis GI Medical History: Reports: Hx Gastroesophageal Reflux Disease. Denies: Hx Cirrhosis, Hx Crohn's Disease, Hx Hepatitis, Hx Ulcerative Colitis Musculoskeletal Medical History: Reports Hx Arthritis, Denies Hx Fibromyalgia, 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 bilat AKA, Reports Hx Musculoskeletal Trauma Skin Medical History: Denies Hx Eczema, Denies Hx Psoriasis Psychiatric Medical History: Reports: Hx Depression Traumatic Medical History: Denies: Hx Traumatic Brain Injury Infectious Medical History: Reports: Hx HIV - noncompliant with meds. Denies: Hx Hepatitis Past Surgical History: Reports: Hx Orthopedic Surgery - bilateral amputation, R BKA, L AKA, Hx Vascular Surgery - left arm clot removed, IVC filter, thrombectomy 05/18/2018 left arm, Other - Tunnel graft right axillary femoral bypass, dialysis fistula LUE - Immunizations Immunizations up to date: Yes Hx Diphtheria, Pertussis, Tetanus Vaccination: Yes Hx Pneumococcal Vaccination: 07/21/10 Physical Exam - Vital signs Vitals: Temp Pulse Resp BP Pulse Ox 97.7 F 94 24 H 215/85 H 97 08/22/19 01:22 08/22/19 01:22 08/22/19 01:22 08/22/19 01:22 08/22/19 01:22 Course - Vital Signs Vital signs: Temp Pulse Resp BP Pulse Ox 97.7 F 94 17 162/95 H 95 08/22/19 01:22 08/22/19 01:22 08/22/19 03:01 08/22/19 03:01 08/22/19 03:01 - Laboratory Result Diagrams: 08/22/19 01:48 08/22/19 01:48 Laboratory results interpreted by me: 08/22/19 08/22/19 01:48 01:48 RBC 3.46 L Hgb 11.0 L Hct 31.9 L RDW 14.7 H Chloride 109 H Carbon Dioxide 13 L Anion Gap 21 H BUN 104 H Creatinine 14.99 H Est GFR ( Amer) 4 L Est GFR (MDRD) Non-Af 3 L Calcium 6.9 L* Discharge - Discharge Referrals: OLIVER ARTHUR MD [Primary Care Provider] - Follow up as needed
[2019-08-22] MEDS ORDERED: ASPIRIN 81 MG TABLET, CHEWABLE PO ONE (05:34)
--- NOTE | 2019-08-22 05:36 | ER Document Report ---
ED Medical Screen (RME) - General Chief Complaint: Chest Pain > 30 Stated Complaint: CHEST PAIN Time Seen by Provider: 08/22/19 05:12 Primary Care Provider: OLIVER ARTHUR MD [Primary Care Provider] - Follow up as needed Notes: 64-year-old male with chief complaint of shortness of breath and discomfort in his chest over the past couple of days. He states he missed dialysis on Friday and Friday, last dialysis was Friday. He states they changed his time and he could not make it at a later times. He also has a history of COPD, insulin-dependent diabetes, cocaine abuse, and smoking. TRAVEL OUTSIDE OF THE [place] IN LAST 30 DAYS: No - Related Data Allergies/Adverse Reactions: calcitriol Allergy (Verified 08/31/18 14:27) itching Past Medical History - Social History Family history: Reviewed & Not Pertinent - Past Medical History Cardiac Medical History: Reports: Hx Congestive Heart Failure - EF is 40%, with moderate diastolic dysfunction, Hx Coronary Artery Disease, Hx DVT, Hx Heart Attack, Hx Hypercholesterolemia, Hx Hypertension, Hx Peripheral Vascular Disease, Hx Pulmonary Embolism Denies: Hx Atrial Fibrillation Pulmonary Medical History: Reports: Hx Bronchitis, Hx COPD, Hx Pneumonia, Hx Respiratory Failure Denies: Hx Asthma, Hx Sleep Apnea Neurological Medical History: Denies: Hx Migraine, Hx Seizures Endocrine Medical History: Reports: Hx Diabetes Mellitus Type 1 - insulin, Hx Diabetes Mellitus Type 2 - insulin dependent. Denies: Hx Hyperthyroidism, Hx Hypothyroidism Renal/ Medical History: Reports: Hx End Stage Renal Disease - Dialysis MWF with Dr. Pablo Lowe, Hx Hemodialysis, Hx Renal Insufficiency. Denies: Hx Peritoneal Dialysis GI Medical History: Reports: Hx Gastroesophageal Reflux Disease. Denies: Hx Cirrhosis, Hx Crohn's Disease, Hx Hepatitis, Hx Ulcerative Colitis Musculoskeltal Medical History: Reports Hx Arthritis, Denies Hx Fibromyalgia, 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 bilat AKA, Reports Hx Musculoskeletal Trauma Skin Medical History: Denies Hx Eczema, Denies Hx Psoriasis Psychiatric Medical History: Reports: Hx Depression Traumatic Medical History: Denies: Hx Traumatic Brain Injury Infectious Medical History: Reports: Hx HIV - noncompliant with meds. Denies: Hx Hepatitis Past Surgical History: Reports: Hx Orthopedic Surgery - bilateral amputation, R BKA, L AKA, Hx Vascular Surgery - left arm clot removed, IVC filter, thrombectomy 05/18/2018 left arm, Other - Tunnel graft right axillary femoral bypass, dialysis fistula LUE - Immunizations Immunizations up to date: Yes Hx Diphtheria, Pertussis, Tetanus Vaccination: Yes Physical Exam - Vital signs Vitals: Temp Pulse Resp BP Pulse Ox 97.7 F 94 24 H 215/85 H 97 08/22/19 01:22 08/22/19 01:22 08/22/19 01:22 08/22/19 01:22 08/22/19 01:22 - Respiratory Breath sounds: Other - Soft rales in the left lung base Course - Re-evaluation Re-evalutation: I have greeted and performed a rapid initial assessment of this patient. A comprehensive ED assessment and evaluation of the patient, analysis of test results and completion of the medical decision making process will be conducted by additional ED providers. - Vital Signs Vital signs: Temp Pulse Resp BP Pulse Ox 97.7 F 94 17 162/95 H 95 08/22/19 01:22 08/22/19 01:22 08/22/19 03:01 08/22/19 03:01 08/22/19 03:01 - Laboratory Result Diagrams: 08/22/19 01:48 08/22/19 01:48 Laboratory results interpreted by me: 08/22/19 08/22/19 01:48 01:48 RBC 3.46 L Hgb 11.0 L Hct 31.9 L RDW 14.7 H Chloride 109 H Carbon Dioxide 13 L Anion Gap 21 H BUN 104 H Creatinine 14.99 H Est GFR ( Amer) 4 L Est GFR (MDRD) Non-Af 3 L Calcium 6.9 L* Doctor's Discharge - Discharge Referrals: OLIVER ARTHUR MD [Primary Care Provider] - Follow up as needed
[2019-08-22] MEDS ORDERED: NITROGLYCERIN 10 MG (0.4 MG/HR) PATCH.TD24 TD ONE (09:09)
[2019-08-22] MEDS ORDERED: MORPHINE SULFATE 10 MG/ML INJ IV ONE (09:09)
[2019-08-22] MEDS ORDERED: CALCIUM GLUCONATE 1000 MG/10 ML INJ IV ONE ×2 (09:52→11:30)
--- NOTE | 2019-08-22 09:59 | ER Document Report ---
Entered by DANIEL HERNANDEZ SCRIBE 08/22/19 0727 Acting as scribe for:LIVIER PEDROZA MD ED General - General Chief Complaint: Chest Pain > 30 Stated Complaint: CHEST PAIN Time Seen by Provider: 08/22/19 05:12 Mode of Arrival: Ambulatory Information source: Patient Notes: This 64 year old male patient that is well known to this emergency department presents today with complaints of shortness of breath. Patient is a MWF dialysis patient and he has missed his last two dialysis appointments because "his wheelchair stopped working Friday and Friday they scheduled him for 1pm and he doesn't like leaving when it is dark". Patient complains of a productive as well with chills and chest tightness. Patient denies any nausea, vomiting, or diarrhea. Lgsw: Dr. Pablo Lowe TRAVEL OUTSIDE OF THE [place] IN LAST 30 DAYS: No - Related Data Allergies/Adverse Reactions: calcitriol Allergy (Verified 08/31/18 14:27) itching Past Medical History - General Information source: Patient - Social History Smoking Status: Current Every Day Smoker Cigarette use (# per day): Yes Frequency of alcohol use: None Drug Abuse: Cocaine Lives with: Family Family History: Reviewed & Not Pertinent, CAD, CVA, DM, Hyperlipidemia, Hypertension, Malignancy Patient has suicidal ideation: No Patient has homicidal ideation: No - Past Medical History Cardiac Medical History: Reports: Hx Congestive Heart Failure - EF is 40%, with moderate diastolic dysfunction, Hx Coronary Artery Disease, Hx DVT, Hx Heart Attack, Hx Hypercholesterolemia, Hx Hypertension, Hx Peripheral Vascular Disease, Hx Pulmonary Embolism Pulmonary Medical History: Reports: Hx Bronchitis, Hx COPD, Hx Pneumonia, Hx Respiratory Failure Neurological Medical History: Endocrine Medical History: Reports: Hx Diabetes Mellitus Type 2 - insulin dependent Renal/ Medical History: Reports: Hx End Stage Renal Disease - Dialysis MWF with Dr. 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, Reports Hx Musculoskeletal Trauma Psychiatric Medical History: Reports: Hx Depression Infectious Medical History: Reports: Hx HIV - noncompliant with meds Past Surgical History: Reports: Hx Orthopedic Surgery - bilateral amputation, R BKA, L AKA, Hx Vascular Surgery - left arm clot removed, IVC filter, thrombectomy 05/18/2018 left arm, Other - Tunnel graft right axillary femoral bypass, dialysis fistula LUE - Immunizations Immunizations up to date: Yes Hx Diphtheria, Pertussis, Tetanus Vaccination: Yes Hx Pneumococcal Vaccination: 07/21/10 Review of Systems - Review of Systems Constitutional: See HPI, Chills EENT: No symptoms reported Cardiovascular: No symptoms reported Respiratory: See HPI, Cough, Short of breath, Sputum Gastrointestinal: denies: Diarrhea, Nausea, Vomiting Genitourinary: No symptoms reported Male Genitourinary: No symptoms reported Musculoskeletal: No symptoms reported Skin: No symptoms reported Hematologic/Lymphatic: No symptoms reported Neurological/Psychological: No symptoms reported -: Yes All other systems reviewed and negative Physical Exam - Vital signs Vitals: Temp Pulse Resp BP Pulse Ox 97.7 F 94 24 H 215/85 H 97 08/22/19 01:22 08/22/19 01:22 08/22/19 01:22 08/22/19 01:22 08/22/19 01:22 - Notes Notes: Physical Exam: General: Alert, appears at baseline. HEENT: Normocephalic. Atraumatic. PERRL. Extraocular movements intact. Or opharynx clear. Neck: Supple. Non-tender. Respiratory: Mild respiratory distress. Diminished lung sounds in the bases, unable to take deep breaths without coughing. Cardiovascular: Regular rate and rhythm. Abdominal: Normal Inspection. Non-tender. No distension. Normal Bowel Sounds. Back: No gross abnormalities. Extremities: Upper extremities: Normal inspection. Normal ROM. Lower extremities: Right BKA, Left AKA. Neurological: Normal cognition. AAOx4. Normal speech. Psychological: Normal affect. Normal Mood. Skin: Warm. Dry. Normal color. Course - Re-evaluation Re-evalutation: 08/22/19 09:58 Patient is resting comfortably with a sat of 96% on room air. Patient voiced no further chest pain issues. Patient is to be admitted to hospitalist service to observe due to chest pain complaint and CHF. Patient has missed his dialysis in the past 7 days and is due for dialysis tomorrow. At this time potassium is normal and there is no overt congestive heart failure or hypoxia. - Vital Signs Vital signs: Temp Pulse Resp BP Pulse Ox 98 F 94 15 149/88 H 97 08/22/19 09:00 08/22/19 01:22 08/22/19 10:01 08/22/19 10:01 08/22/19 10:01 - Laboratory Result Diagrams: 08/22/19 01:48 08/22/19 01:48 Laboratory results interpreted by me: 08/22/19 08/22/19 08/22/19 01:48 01:48 09:54 RBC 3.46 L Hgb 11.0 L Hct 31.9 L RDW 14.7 H Chloride 109 H Carbon Dioxide 13 L Anion Gap 21 H BUN 104 H Creatinine 14.99 H Est GFR ( Amer) 4 L Est GFR (MDRD) Non-Af 3 L Calcium 6.9 L* Urine Protein 100 H Urine Glucose (UA) 50 H Urine Blood SMALL H - EKG Interpretation by Me Additional EKG results interpreted by me: 08/22/19 09:57 EKG 12-lead time 111 normal sinus rhythm rate of 97, left axis deviation and borderline prolonged QT interval otherwise no acute ST-T wave changes. Discharge - Discharge Clinical Impression: Chronic kidney disease with end stage renal failure on dialysis, Hypocalcemia CHF (congestive heart failure) Qualifiers: Heart failure type: systolic Heart failure chronicity: chronic Qualified Code(s): I50.22 - Chronic systolic (congestive) heart failure Chest pain Qualifiers: Chest pain type: unspecified Qualified Code(s): R07.9 - Chest pain, unspecified Condition: Fair Disposition: ADMITTED INPATIENT Admitting Provider: Nataly (Hospitalist) Unit Admitted: IMCU I personally performed the services described in the documentation, reviewed and edited the documentation which was dictated to the scribe in my presence, and it accurately records my words and actions.
[2019-08-22 10:13] LABS: APPEARANCE,URINE CLEAR; BILIRUBIN,URINE NEGATIVE (NEGATIVE); COLOR,URINE YELLOW; GLUCOSE, URINE 50 mg/dL (NEGATIVE); KETONES,URINE NEGATIVE (NEGATIVE); LEUKOCYTE ESTERASE,URINE NEGATIVE (NEGATIVE); NITRITE,URINE NEGATIVE (NEGATIVE); PROTEIN,URINE 100 mg/dL (NEGATIVE); URINE SPECIFIC GRAVITY 1.012; UROBILINOGEN,URINE NEGATIVE mg/dL (<2.0)
[2019-08-22 10:33] LABS: URINE AMPHETAMINES SCREEN NEGATIVE; URINE BARBITURATES SCREEN NEGATIVE; URINE BENZODIAZEPINES SCREEN NEGATIVE; URINE COCAINE SCREEN NEGATIVE; URINE MARIJUANA (THC) SCREEN NEGATIVE; URINE METHADONE SCREEN NEGATIVE; URINE PHENCYCLIDINE SCREEN NEGATIVE
[2019-08-22] MEDS ORDERED: MAG HYDROX/AL HYDROX/SIMETH SUSP 30 ML UDCUP PO PRN (11:13)
[2019-08-22] MEDS ORDERED: FUROSEMIDE INJ/PF 40 MG/4 ML SDV IV ONE (11:18)
--- NOTE | 2019-08-22 11:43 | PDOC H&P ---
History of Present Illness Admission Date/PCP: 08/22/19 10:07 OLIVER ARTHUR MD Patient complains of: Shortness of breath and chest pain History of Present Illness: KRISTY CANTU is a 64 year old male with a history of ESRD on dialysis Friday and Friday, HIV, VTE on Coumadin, COPD, CAD, right BKA and left AKA, who presents to the hospital with complaints of dyspnea which has been progressive for the past few days. Occurs at rest. Endorses chronic orthopnea. Associated with cough and chest pain that occurred today. Denies fever or chills. Admits to missing his dialysis for the past 1 week and his last session was Friday 1 week ago. States that he misses his dialysis because they keep on changing his times and he never wants to be traveling back home in the night. Patient acknowledges that he makes urine though in small amounts. Currently does not feel overwhelmingly dyspneic. States his primary [employer] senior officer is Dr. Lowe. Gets dialyzed through AV fistula/graft in left upper extremity. Past Medical History Cardiac Medical History: Reports: Congestive Heart Failure - EF is 40%, with moderate diastolic dysfunction, Coronary Artery Disease, DVT, Myocardial Infarction, Hyperlipidema, Hypertension, Peripheral Vascular Disease, Pulmonary Embolism Denies: Atrial Fibrillation Pulmonary Medical History: Reports: Bronchitis, Chronic Obstructive Pulmonary Disease (COPD), Pneumonia, Respiratory Failure Denies: Asthma, Sleep Apnea Neurological Medical History: Denies: Migraine, Seizures Endocrine Medical History: Reports: Diabetes Mellitus Type 2 - insulin dependent Denies: Hyperthyroidism, Hypothyroidism Renal/ Medical History: Reports: End Stage Renal Disease - Dialysis MWF with Dr. Pablo Lowe GI Medical History: Reports: Gastroesophageal Reflux Disease Denies: Cirrhosis, Crohn's Disease, Hepatitis, Ulcerative Colitis Musculoskeltal Medical History: Reports: Arthritis Denies: Fibromyalgia Skin Medical History: Denies: Eczema, Psoriasis Psychiatric Medical History: Reports: Depression Traumatic Medical History: Denies: Traumatic Brain Injury Hematology: Reports: Anemia, Bleeding Tendencies - Since being on warfarin Infectious Medical History: Reports: HIV - noncompliant with meds Past Surgical History Past Surgical History: Reports: Orthopedic Surgery - bilateral amputation, R BKA, L AKA, Vascular Surgery - left arm clot removed, IVC filter, thrombectomy 05/18/2018 left arm, Other - Tunnel graft right axillary femoral bypass, dialysis fistula LUE Social History Information Source: Patient Lives with: Family Smoking Status: Current Every Day Smoker Frequency of Alcohol Use: None Hx Recreational Drug Use: Yes - Last used 09/26/18 Drugs: Cocaine - Last used 9 months ago Hx Prescription Drug Abuse: No - Advance Directive Resuscitation Status: Full Code Family History Family History: Reviewed & Not Pertinent, CAD, CVA, DM, Hyperlipidemia, Hypertension, Malignancy Parental Family History Reviewed: Yes Children Family History Reviewed: NA Sibling(s) Family History Reviewed.: Yes Medication/Allergy Home Medications: Abacavir Sulfate [Abacavir 300 mg Tablet] 300 mg PO Q12 07/15/18 Clonidine [Catapres-Tts 3 (0.3 mg/24 Hr) Transderm Patch] 1 patch TD FR@1000 07/15/18 Isosorbide Mononitrate [Isosorbide Mononitrate ER] 120 mg PO DAILY 07/15/18 Nitroglycerin [Nitrostat 0.4 mg (1/150 Gr) Tabs 25/Bottle] 1 tab SL Q5MP PRN 07/15/18 Albuterol Sulfate [Proair HFA Inhalation Aerosol 8.5 gm MDI] 2 puff IH Q6HP PRN 07/27/18 Calcium Acetate 667 mg PO MEALS 07/27/18 Chlorthalidone [Hygroton 25 mg Tablet] 25 mg PO BID 01/15/19 Acetaminophen [Tylenol 325 mg Tablet] 650 mg PO Q4HP PRN tablet 02/05/19 Dolutegravir Sodium [Tivicay] 50 mg PO DAILY 02/05/19 Doxycycline Hyclate [Vibramycin 100 mg Tablet] 100 mg PO BID #20 tablet 02/05/19 Furosemide [Lasix 80 mg Tablet] 80 mg PO DAILY 02/05/19 Lamivudine [Epivir] 50 mg PO DAILY 02/05/19 Warfarin Sodium [Coumadin] 6 mg PO QHS 30 Days #30 tablet 02/05/19 Amox Tr/Potassium Clavulanate [Augmentin 875-125 Tablet] 1 tab PO BID 7 Days #14 tablet 03/10/19 Fluticasone Propionate [Flonase Nasal [place] 50 Mcg/[place] 16 gm] 2 sprays NASL Q12 #1 inhaler 03/10/19 Esomeprazole Magnesium [Nexium] 20 mg PO DAILY 30 Days #30 capsule. 04/16/19 Ondansetron [Zofran Odt 4 mg Tablet] 1 - 2 tab PO Q4H PRN #15 tab.rapdis 04/16/19 Polyethylene Glycol 3350 [Miralax] 1 cap PO DAILY #527 powder 04/16/19 Azithromycin [Zithromax 250 mg Tablet] 250 mg PO ASDIR PRN #6 tablet 08/03/19 Azithromycin [Zithromax 250 mg Tablet] 250 mg PO ASDIR PRN #6 tablet 08/03/19 Benzonatate [Tessalon Perles 100 mg Capsule] 100 mg PO Q8HP PRN #40 capsule 08/03/19 Allergies/Adverse Reactions: calcitriol Allergy (Verified 08/31/18 14:27) itching Review of Systems Constitutional: PRESENT: headache(s). ABSENT: fatigue, fever(s) Eyes: ABSENT: visual disturbances Nose, Mouth, and Throat: PRESENT: headache(s) Cardiovascular: PRESENT: chest pain, orthropnea Respiratory: PRESENT: cough, dyspnea Gastrointestinal: ABSENT: abdominal pain, diarrhea, nausea, vomiting Genitourinary: PRESENT: other - Makes urine but in small amounts Neurological: ABSENT: confusion, dizziness Psychiatric: ABSENT: anxiety Endocrine: ABSENT: polyuria Physical Exam Vital Signs: Temp Pulse Resp BP Pulse Ox 98 F 94 15 149/88 H 97 08/22/19 09:00 08/22/19 01:22 08/22/19 10:01 08/22/19 10:01 08/22/19 10:01 Intake & Output 08/21/19 08/22/19 08/23/19 06:59 06:59 06:59 Weight 66.8 kg General appearance: PRESENT: no acute distress, cooperative, other - Gets dyspneic when talking Eye exam: PRESENT: EOMI Neck exam: PRESENT: JVD Respiratory exam: PRESENT: crackles, unlabored. ABSENT: accessory muscle use, retraction, wheezes Cardiovascular exam: PRESENT: +S1, +S2, systolic murmur. ABSENT: tachycardia Pulses: PRESENT: other - Left AV access with good thrill GI/Abdominal exam: PRESENT: soft. ABSENT: distended, rebound, rigid, tenderness Extremities exam: PRESENT: other - Right lower extremity BKA, left AKA Musculoskeletal exam: ABSENT: ambulatory Neurological exam: PRESENT: alert, awake, oriented to person, oriented to place, oriented to time, oriented to situation Psychiatric exam: ABSENT: agitated, anxious Focused psych exam: ABSENT: pressured speech Results Laboratory Results: 08/22/19 01:48 08/22/19 01:48 08/22/19 08/22/19 08/22/19 01:48 01:48 09:54 WBC 9.0 RBC 3.46 L Hgb 11.0 L Hct 31.9 L MCV 92 MCH 31.9 MCHC 34.6 RDW 14.7 H Plt Count 184 Seg Neutrophils % 45.6 Sodium 142.7 Potassium 4.9 Chloride 109 H Carbon Dioxide 13 L Anion Gap 21 H BUN 104 H Creatinine 14.99 H Est GFR ( Amer) 4 L Glucose 82 Calcium 6.9 L* Total Bilirubin 0.4 AST 27 Alkaline Phosphatase 70 Total Protein 7.7 Albumin 4.0 Urine Color YELLOW Urine Appearance CLEAR Urine pH 7.0 Ur Specific [place] 1.012 Urine Protein 100 H Urine Glucose (UA) 50 H Urine Ketones NEGATIVE Urine Blood SMALL H Urine Nitrite NEGATIVE Ur Leukocyte Esterase NEGATIVE Urine WBC (Auto) 1 Urine RBC (Auto) 0 08/22/19 08/22/19 08/22/19 01:48 01:48 05:15 Creatine Kinase 146 CK-MB (CK-2) 2.94 Troponin I 0.049 0.049 Impressions: Chest X-Ray 08/22/19 00:00 IMPRESSION: Clear lungs. Assessment and Plan - Diagnosis (1) Fluid overload Qualifiers: Hypervolemia type: other Qualified Code(s): E87.79 - Other fluid overload Is this a current diagnosis for this admission?: Yes Plan: Secondary to missing dialysis for over a week. Chest x-ray showing increased pulmonary vascular congestion. Oxygen supplementation as needed. Fluid restriction. Notably conversationally dyspneic so I will admit to IMCU and keep BiPAP on standby if needed. Dialysis tomorrow I will give Lasix IV 80 mg now and twice daily as patient makes some urine (2) Chest pain Qualifiers: Chest pain type: unspecified Qualified Code(s): R07.9 - Chest pain, unspecified Is this a current diagnosis for this admission?: Yes Plan: Likely secondary to fluid overload state. EKG showing no changes. Troponin showing flat trend at 0.049 Trial of nitroglycerin as needed given his reported history of CAD. (3) ESRD needing dialysis Is this a current diagnosis for this admission?: Yes Plan: Typically dialyzes MWF Very noncompliant with hemodialysis-reports that his noncompliance is due to the time at which he gets dialyzed being in the evening. Nephrology consulted (4) Hypocalcemia Is this a current diagnosis for this admission?: Yes Plan: Secondary to hypovitaminosis D and ESRD Noted to have low vitamin D 25 in 2017 and elevated intact PTH We will recheck vitamin D 25 and vitamin D1 25 levels Calcium and vitamin D3 supplementation. (5) History of venous thromboembolism Is this a current diagnosis for this admission?: Yes Plan: Endorses history of DVT and his prior documentation of PE States he takes Coumadin 10 mg from Friday to Friday and 8 mg to Friday. Resume Coumadin Check INR (6) Chronic obstructive pulmonary disease Qualifiers: COPD type: unspecified COPD Qualified Code(s): J44.9 - Chronic obstructive pulmonary disease, unspecified Is this a current diagnosis for this admission?: Yes Plan: Nebs as needed. Currently stable. (7) HIV (human immunodeficiency virus infection) Qualifiers: HIV symptom status: unspecified Qualified Code(s): B20 - Human immunodef iciency virus [HIV] disease Is this a current diagnosis for this admission?: Yes Plan: Resume HAART therapy once medication reconciliation is confirmed. (8) Tobacco abuse Is this a current diagnosis for this admission?: Yes Plan: Nicotine replacement therapy (9) Morbid obesity with BMI of 40.0-44.9, adult Is this a current diagnosis for this admission?: Yes - Time Time Spent with patient: 35 or more minutes
[2019-08-22] MEDS ORDERED: FUROSEMIDE INJ/PF 100 MG/10 ML SDV IV ONE (12:00)
[2019-08-22 15:31] LABS: INTERNATIONAL RATION (INR) 2.99; PROTHROMBIN TIME 31.7 SEC (11.4-15.4)
[2019-08-22] MEDS: CLONIDINE HCL 0.2 MG TABLET PO SCH ×2 (16:00→21:21)
[2019-08-22] MEDS: ISOSORBIDE MONONITRATE 60 MG TAB.ER.24H PO SCH (16:00)
[2019-08-22] MEDS: NICOTINE 21 MG/24 HR PATCH.TD24 TOP SCH (16:00)
[2019-08-22] MEDS ORDERED: TRAMADOL HCL 50 MG TABLET PO ONE (16:45)
[2019-08-22] MEDS: HYDRALAZINE HCL 10 MG TABLET PO SCH (17:16)
[2019-08-22] MEDS: FUROSEMIDE INJ/PF 100 MG/10 ML SDV IV SCH (17:16)
[2019-08-22] MEDS: CALCIUM CARBONATE 500 MG TABLET PO SCH (17:16)
[2019-08-22] MEDS: FLUTICASONE PROPIONATE HFA 110 MCG/PUFF 12 GM MDI IH SCH (17:27)
[2019-08-22] MEDS ORDERED: FUROSEMIDE INJ/PF 40 MG/4 ML SDV IV SCH (18:00)
[2019-08-22] MEDS ORDERED: CLONIDINE 0.3 MG/24 HR PATCH.TDWK TOP SCH (18:00)
[2019-08-22] MEDS ORDERED: CALCIUM CARBONATE 500 MG TABLET PO SCH (18:00)
[2019-08-22] MEDS ORDERED: HYDRALAZINE HCL INJ/PF 20 MG/1 ML SDV IV PRN (18:33)
[2019-08-22] MEDS: CARVEDILOL 12.5 MG TABLET PO SCH (21:20)
[2019-08-22] MEDS: DOXAZOSIN MESYLATE 4 MG TABLET PO SCH (21:21)
[2019-08-22] MEDS ORDERED: WARFARIN SODIUM 5 MG TABLET PO SCH (22:00)
--- NOTE | 2019-08-23 00:18 | EKG REPORT ---
SEVERITY:- BORDERLINE ECG - SINUS RHYTHM LEFT AXIS DEVIATION BORDERLINE PROLONGED QT INTERVAL : Confirmed by: Beulah Storm 23-Aug-2019 00:17:32
[2019-08-23] MEDS: CLONIDINE HCL 0.2 MG TABLET PO SCH ×3 (05:38→21:27)
[2019-08-23 07:11] LABS: ABSOLUTE EOSINOPHILS # (AUTO) 0.4 10^3/uL (0.0-0.6); ABSOLUTE LYMPHOCYTES (AUTO) 3.1 10^3/uL (0.5-4.7); ABSOLUTE MONOCYTES (AUTO) 0.6 10^3/uL (0.1-1.4); ABSOLUTE NEUT (AUTO) 2.6 10^3/uL (1.7-8.2); BASOPHILS % (AUTO) 0.6 % (0-2); EOSINOPHILS % (AUTO) 6.1 % (0-6); HEMATOCRIT 27.9 % (37.9-51.0); HEMOGLOBIN 9.6 g/dL (13.5-17.0); LYMPHOCYTES % (AUTO) 46.1 % (13-45); MEAN CORPUSCULAR HGB CONC 34.5 g/dL (32.0-36.0); MEAN CORPUSCULAR VOLUME 93 fl (80-97); MONOCYTES % (AUTO) 8.6 % (3-13); PLATELET COUNT 159 10^3/uL (150-450); RED CELL DISTRIBUTION WIDTH 14.8 % (11.5-14.0); SEGMENTED NEUTROPHILS % (AUTO) 38.6 % (42-78); TOTAL CELLS COUNTED % (AUTO) 100 %; WHITE BLOOD COUNT 6.7 10^3/uL (4.0-10.5)
[2019-08-23 07:20] LABS: INTERNATIONAL RATION (INR) 2.77; PROTHROMBIN TIME 29.9 SEC (11.4-15.4)
[2019-08-23 07:30] LABS: ALBUMIN 3.4 g/dL (3.5-5.0); ALKALINE PHOSPHATASE 54 U/L (38-126); ANION GAP 14 (5-19); ASPARTATE AMINO TRANSFERASE 19 U/L (17-59); BILIRUBIN,DIRECT 0.1 mg/dL (0.0-0.4); BILIRUBIN,TOTAL 0.2 mg/dL (0.2-1.3); BLOOD UREA NITROGEN 105 mg/dL (7-20); CARBON DIOXIDE 15 mmol/L (22-30); CHLORIDE 108 mmol/L (98-107); GLUCOSE 79 mg/dL (75-110); PHOSPHORUS 9.5 mg/dL (2.5-4.5); POTASSIUM 5.9 mmol/L (3.6-5.0); TOTAL PROTEIN 6.2 g/dL (6.3-8.2)
[2019-08-23 07:47] LABS: CALCIUM 6.7 mg/dL (8.4-10.2)
[2019-08-23] MEDS ORDERED: NITROGLYCERIN 0.4 MG/TAB 25 TAB/BOTTLE SL PRN (09:42)
--- NOTE | 2019-08-23 09:45 | PDOC PROGRESS REPORT ---
Subjective Progress Note for:: 08/23/19 Subjective:: Patient feeling pretty short of breath this morning. Having some chest tightness. Still coughing. Still notably having conversational dyspnea. Reason For Visit: FLUID OVERLOAD,ESRD Physical Exam Vital Signs: Temp Pulse Resp BP Pulse Ox 97.5 F 72 14 153/86 H 99 08/23/19 03:00 08/23/19 07:00 08/23/19 03:00 08/23/19 03:00 08/23/19 03:00 Intake & Output 08/22/19 08/23/19 08/24/19 06:59 06:59 06:59 Intake Total 860 Output Total 575 Balance 285 Weight 66.8 kg 80.8 kg General appearance: PRESENT: cooperative, mild distress, morbidly obese Neck exam: PRESENT: JVD Respiratory exam: PRESENT: crackles, symmetrical, tachypnea. ABSENT: retraction, stridor, wheezes Cardiovascular exam: PRESENT: RRR, +S1, +S2, systolic murmur. ABSENT: tachycardia GI/Abdominal exam: PRESENT: soft. ABSENT: rebound, rigid, tenderness Musculoskeletal exam: PRESENT: other - Bilateral amputee Results Laboratory Results: 08/23/19 05:38 08/23/19 03:58 08/22/19 08/23/19 08/23/19 09:54 03:58 05:38 WBC 6.7 RBC 3.00 L Hgb 9.6 L Hct 27.9 L MCV 93 MCH 32.0 MCHC 34.5 RDW 14.8 H Plt Count 159 Seg Neutrophils % 38.6 L Sodium 137.2 Potassium 5.9 H Chloride 108 H Carbon Dioxide 15 L Anion Gap 14 BUN 105 H Creatinine 15.58 H Est GFR ( Amer) 4 L Glucose 79 Calcium 6.7 L* Phosphorus 9.5 H Total Bilirubin 0.2 AST 19 Alkaline Phosphatase 54 Total Protein 6.2 L Albumin 3.4 L Urine Color YELLOW Urine Appearance CLEAR Urine pH 7.0 Ur Specific [place] 1.012 Urine Protein 100 H Urine Glucose (UA) 50 H Urine Ketones NEGATIVE Urine Blood SMALL H Urine Nitrite NEGATIVE Ur Leukocyte Esterase NEGATIVE Urine WBC (Auto) 1 Urine RBC (Auto) 0 08/22/19 08/22/19 08/22/19 01:48 01:48 05:15 Creatine Kinase 146 CK-MB (CK-2) 2.94 Troponin I 0.049 0.049 NT-Pro-B Natriuret Pep 08/22/19 15:05 Creatine Kinase CK-MB (CK-2) Troponin I NT-Pro-B Natriuret Pep [id number] H Impressions: Chest X-Ray 08/22/19 00:00 IMPRESSION: Clear lungs. Assessment and Plan - Diagnosis (1) Fluid overload Qualifiers: Hypervolemia type: other Qualified Code(s): E87.79 - Other fluid overload Is this a current diagnosis for this admission?: Yes Plan: Secondary to missing dialysis for over a week. Chest x-ray showing increased pulmonary vascular congestion. BNP of 35,000. Oxygen supplementation as needed. Fluid restriction. Being taken for the dialysis now Continue Lasix IV 80 mg twice daily as patient makes some urine Nephrology consulted (2) Chest pain Qualifiers: Chest pain type: unspecified Qualified Code(s): R07.9 - Chest pain, unspe cified Is this a current diagnosis for this admission?: Yes Plan: Likely secondary to fluid overload state. EKG showing no changes. Troponin showing flat trend at 0.049 Trial of nitroglycerin as needed given his reported history of CAD. (3) ESRD needing dialysis Is this a current diagnosis for this admission?: Yes Plan: Typically dialyzes MWF Very noncompliant with hemodialysis-reports that his noncompliance is due to the time at which he gets dialyzed being in the evening. Nephrology consulted Discharge planning consulted to look into his outpatient dialysis issue (4) Hypocalcemia Is this a current diagnosis for this admission?: Yes Plan: Secondary to hypovitaminosis D and ESRD Noted to have low vitamin D 25 in 2017 and elevated intact PTH Follow-up vitamin D 25 and vitamin D1 25 levels Calcium and vitamin D3 supplementation. Noted allergy to calcitriol though uncertain what allergic reaction truly is. (5) History of venous thromboembolism Is this a current diagnosis for this admission?: Yes Plan: Endorses history of DVT and his prior documentation of PE States he takes Coumadin 10 mg from Friday to Friday and 8 mg to Friday. Continue Coumadin. INR therapeutic. (6) Chronic obstructive pulmonary disease Qualifiers: COPD type: unspecified COPD Qualified Code(s): J44.9 - Chronic obstructive pulmonary disease, unspecified Is this a current diagnosis for this admission?: Yes Plan: Nebs as needed. Currently stable. (7) HIV (human immunodeficiency virus infection) Qualifiers: HIV symptom status: unspecified Qualified Code(s): B20 - Human immunodeficiency virus [HIV] disease Is this a current diagnosis for this admission?: Yes Plan: Resume HAART therapy (8) Tobacco abuse Is this a current diagnosis for this admission?: Yes Plan: Nicotine replacement therapy (9) Morbid obesity Is this a current diagnosis for this admission?: Yes - Time Time Spent with patient: Less than 15 minutes
[2019-08-23] MEDS ORDERED: LAMIVUDINE PO SCH (10:00)
[2019-08-23] MEDS ORDERED: ABACAVIR SULFATE 600 MG PO SCH (10:00)
[2019-08-23] MEDS ORDERED: (PENDING PHARMACY ID) (Dolutegravir Sodium [Tivicay] 50 MG) PO SCH (10:00)
[2019-08-23] MEDS ORDERED: CALCIUM GLUCONATE 1 GM/NS 50 ML RTU IV ONE (11:30)
--- NOTE | 2019-08-23 11:54 | PDOC CONSULTATION ---
Consultation Consult Date: 08/23/19 Provider Consulted: Celeste LOWE Consult reason:: ESRD for hemodialysis History of Present Illness Admission Date/PCP: 08/22/19 10:07 OLIVER ARTHUR MD History of Present Illness: KRISTY CANTU is a 64 year old mal with a history of ESRD on dialysis Friday and Friday, in the background of HIV, VTE on Coumadin, COPD, CHF, CAD, right BKA and left AKA, previous history of cocaine use, who presented to the hospital with complaints of dyspnea which has been progressive for the past few days. His last dialysis was about 10 days ago. He states he was not happy with the fact that he had not been given different time that he had requested for di alysis as an outpatient and so decided not to go for his dialysis. Over the last few days he is also developed a cough which is rather nonproductive. He also admits to the fact that he is orthopneic and is got a chest tightness in the center which is made worse with coughing. He denies any history of fever or chills. He has an unfortunate his history of noncompliance with diet medications and dialysis treatments in the past. Patient currently being seen while undergoing dialysis. He denies any specific complaints of severe chest pain. He says his breathing is better since started on dialysis. Vital signs are stable. Labs and medications were reviewed. His chest x-ray shows features of history of prominent interstitial markings. Dialysis orders were reviewed with the treating dialysis nurse. Oc Past Medical History Cardiac Medical History: Reports: CHF-Diastolic, Coronary Artery Disease, DVT, Hyperlipidemia, Hypertension-primary, Myocardial Infarction, Peripheral Vascular Disease, Pulmonary Embolism Denies: Atrial Fibrillation Pulmonary Medical History: Reports: Bronchitis, Chronic Obstructive Pulmonary Disease (COPD), Pneumonia, Respiratory Failure Denies: Asthma, Sleep Apnea Neurological Medical History: Denies: Migraine, Seizures Endocrine Medical History: Reports: Diabetes Mellitus Type 2 - insulin dependent Denies: Hyperthyroidism, Hypothyroidism Renal/ Medical History: Reports: End Stage Renal Disease - Dialysis MWF with Dr. Pablo Lowe, Metabolic Acidosis, Secondary Hyperparathyroidism GI Medical History: Reports: Gastroesophageal Reflux Disease Denies: Cirrhosis, Crohn's Disease, Hepatitis, Ulcerative Colitis Musculoskeltal Medical History: Reports: Arthritis Denies: Fibromyalgia Skin Medical History: Denies: Eczema, Psoriasis Psychiatric Medical History: Reports: Depression Traumatic Medical History: Denies: Traumatic Brain Injury Infectious Medical History: Reports: HIV - noncompliant with meds Hematology Medical History: Reports Anemia of Chronic Kidney Disease Past Surgical History Past Surgical History: Reports: Dialysis Access Surgery AVF, Orthopedic Surgery - bilateral amputation, R BKA, L AKA, Vascular Surgery - left arm clot removed, IVC filter, thrombectomy 05/18/2018 left arm, Other - Tunnel graft right axillary femoral bypass, dialysis fistula LUE Social History Lives with: Family Smoking Status: Current Every Day Smoker Frequency of Alcohol Use: None Hx Recreational Drug Use: Yes Drugs: Cocaine - Last used 9 months ago Hx Prescription Drug Abuse: No - Advance Directive Resuscitation Status: Full Code Family History Parental Family History Reviewed: Yes - Negative for ESRD Children Family History Reviewed: No Sibling(s) Family History Reviewed.: No Medication/Allergy Home Medications: Abacavir Sulfate [Abacavir 300 mg Tablet] 600 mg PO DAILY 08/22/19 Albuterol Sulfate [Albuterol Sulfate Hfa] 2 puff IH Q6HP PRN 08/22/19 Carvedilol [Coreg] 25 mg PO Q12 08/22/19 Clonidine HCl [Catapres 0.2 mg Tablet] 0.2 mg PO Q8 08/22/19 Clonidine [Catapres-Tts 3 (0.3 mg/24 Hr) Transderm Patch] 0.3 mg TOP GUTIÉRREZ@1000 08/22/19 Dolutegravir Sodium [Tivicay] 50 mg PO DAILY 08/22/19 Doxazosin Mesylate [Cardura 4 mg Tablet] 4 mg PO QHS 08/22/19 Fluticasone Propionate [Flovent Hfa 110 Mcg Inhalation Aerosol 12 gm] 2 puff IH BID 08/22/19 Hydralazine HCl [Apresoline 10 mg Tablet] 10 mg PO BID 08/22/19 Ipratropium/Albuterol Sulfate [Duoneb 3 ml Ampul] 3 ml NEB RTQID 08/22/19 Isosorbide Mononitrate [Isosorbide Mononitrate ER] 120 mg PO DAILY 08/22/19 Lamivudine [Epivir] 1 tsp PO DAILY 08/22/19 Nicotine [Nicoderm 21 mg/24 Hr Transderm Patch] 21 mg TOP DAILY 08/22/19 Nifedipine [Nifedipine ER] 90 mg PO DAILY 08/22/19 Warfarin Sodium 10 mg PO SUFRSA@2200 02/02/20 Warfarin Sodium [Coumadin 4 mg Tablet] 8 mg PO MOTUWETH@219908/22/19 Allergies/Adverse Reactions: calcitriol Allergy (Verified 08/31/18 14:27) itching Review of Systems Constitutional: PRESENT: fatigue. ABSENT: anorexia, chills, fever(s), headache(s), night sweats, weakness Nose, Mouth, and Throat: ABSENT: mouth pain, sore throat Cardiovascular: PRESENT: chest pain, dyspnea on exertion, orthropnea. ABSENT: edema Respiratory: PRESENT: cough, dyspnea. ABSENT: hemoptysis, sputum Gastrointestinal: ABSENT: abdominal pain, coffee ground emesis, constipation, diarrhea, dysphagia, heartburn, hematemesis Genitourinary: ABSENT: dysuria, hematuria Musculoskeletal: ABSENT: deformity, joint swelling Integumentary: ABSENT: lesions, pruritus Neurological: ABSENT: abnormal gait, abnormal movements, abnormal speech, focal weakness, frequent falls, numbness Psychiatric: ABSENT: anxiety Hematologic/Lymphatic: ABSENT: easy bruising, lymphadenopathy Physical Exam Vital Signs: Temp Pulse Resp BP Pulse Ox 98.0 F 72 18 161/83 H 98 08/23/19 07:34 08/23/19 07:34 08/23/19 07:34 08/23/19 07:34 08/23/19 07:34 Intake & Output 08/22/19 08/23/19 08/24/19 06:59 06:59 06:59 Intake Total 860 Output Total 575 Balance 285 Weight 66.8 kg 80.8 kg General appearance: PRESENT: no acute distress Eye exam: PRESENT: EOMI, PERRLA. ABSENT: scleral icterus Ear exam: PRESENT: normal external ear exam Mouth exam: PRESENT: moist, neck supple Neck exam: ABSENT: lymphadenopathy, meningismus, tenderness, thyromegaly, tracheal deviation Respiratory exam: PRESENT: clear to auscultation ramila. ABSENT: crackles Cardiovascular exam: PRESENT: +S1, +S2 GI/Abdominal exam: PRESENT: normal bowel sounds, soft. ABSENT: organomegaly, tenderness Neurological exam: PRESENT: alert, awake, oriented to person, oriented to place Psychiatric exam: PRESENT: appropriate affect Skin exam: ABSENT: cyanosis, erythema, mottled Results Laboratory Results: 08/23/19 05:38 08/23/19 03:58 08/23/19 08/23/19 03:58 05:38 WBC 6.7 RBC 3.00 L Hgb 9.6 L Hct 27.9 L MCV 93 MCH 32.0 MCHC 34.5 RDW 14.8 H Plt Count 159 Seg Neutrophils % 38.6 L Sodium 137.2 Potassium 5.9 H Chloride 108 H Carbon Dioxide 15 L Anion Gap 14 BUN 105 H Creatinine 15.58 H Est GFR ( Amer) 4 L Glucose 79 Calcium 6.7 L* Phosphorus 9.5 H Total Bilirubin 0.2 AST 19 Alkaline Phosphatase 54 Total Protein 6.2 L Albumin 3.4 L 08/22/19 08/22/19 08/22/19 01:48 01:48 05:15 Creatine Kinase 146 CK-MB (CK-2) 2.94 Troponin I 0.049 0.049 NT-Pro-B Natriuret Pep 08/22/19 15:05 Creatine Kinase CK-MB (CK-2) Troponin I NT-Pro-B Natriuret Pep [id number] H Impressions: Chest X-Ray 08/22/19 00:00 IMPRESSION: Clear lungs. Assessment & Plan - Diagnosis (1) Congestive heart failure Qualifiers: Heart failure type: systolic Heart failure chronicity: chronic Qualified Code(s): I50.22 - Chronic systolic (congestive) heart failure Plan: Missing multiple hemodialysis treatments as an outpatient and now presents with combination of CHF/COPD. Patient currently being dialyzed and fluid extraction should make him feel better. We discussed compliance and the consequences of it otherwise. (2) End stage renal disease Plan: Currently undergoing dialysis. Vital signs are stable. Dialysis is being supervised to ensure safe and smooth procedure. Plan to remove it in 3-4 L as tolerated. Patient has been missing multiple treatments and his last dialysis was more than 10 days ago. We discussed the consequences of missing dialysis including congestive heart failure and . (3) Hypocalcemia Is this a current diagnosis for this admission?: Yes Plan: His corrected calcium is also low. We will give him 1 g of IV calcium gluconate. Unfortunately it states patient is allergic to calcitriol. We will have to find him alternate vitamin D3 substitutes. (4) Chronic obstructive pulmonary disease Qualifiers: COPD type: unspecified COPD Qualified Code(s): J44.9 - Chronic obstructive pulmonary disease, unspecified Is this a current diagnosis for this admission?: Yes Plan: As per hospitalist. (5) HIV (human immunodeficiency virus infection) Qualifiers: HIV symptom status: unspecified Qualified Code(s): B20 - Human immunodeficiency virus [HIV] disease Is this a current diagnosis for this admission?: Yes Plan: As per hospitalist. (6) Noncompliance Plan: We discussed at length compliance with diet and medications and not to miss hemodialysis treatments (7) Hyperkalemia Plan: Should respond to hemodialysis. Advised low potassium diet. Discussed the serious consequences of hypertension. Obviously his potassium is high because he has missed last few treatments as an outpatient. (8) Metabolic acidosis Plan: Should improve with hemodialysis. Later see if he needs to be put on sodium bicarbonate replacements.
[2019-08-23] MEDS: FUROSEMIDE INJ/PF 100 MG/10 ML SDV IV SCH ×2 (13:18→17:52)
[2019-08-23] MEDS: CARVEDILOL 12.5 MG TABLET PO SCH ×2 (13:19→21:27)
[2019-08-23] MEDS: ISOSORBIDE MONONITRATE 60 MG TAB.ER.24H PO SCH (13:19)
[2019-08-23] MEDS: NIFEDIPINE 30 MG TAB.ER.24 PO SCH (13:19)
[2019-08-23] MEDS: HYDRALAZINE HCL 10 MG TABLET PO SCH ×2 (13:19→17:52)
[2019-08-23] MEDS: ACETAMINOPHEN 325 MG TABLET PO PRN ×2 (13:20→21:35)
[2019-08-23] MEDS: NICOTINE 21 MG/24 HR PATCH.TD24 TOP SCH (13:20)
[2019-08-23] MEDS: CALCIUM CARBONATE 500 MG TABLET PO SCH ×2 (13:20→17:52)
[2019-08-23] MEDS: IPRATROPIUM/ALBUTEROL 0.5-2.5 MG/3 ML AMPUL NEB PRN (13:39)
[2019-08-23] MEDS: FLUTICASONE PROPIONATE HFA 110 MCG/PUFF 12 GM MDI IH SCH ×2 (17:51)
[2019-08-23] MEDS: WARFARIN SODIUM 4 MG TABLET PO SCH (21:26)
[2019-08-23] MEDS: DOXAZOSIN MESYLATE 4 MG TABLET PO SCH (21:27)
[2019-08-24] MEDS: CLONIDINE HCL 0.2 MG TABLET PO SCH ×3 (05:49→21:19)
[2019-08-24 06:56] LABS: PROTHROMBIN TIME 28.3 SEC (11.4-15.4)
[2019-08-24 07:13] LABS: ANION GAP 12 (5-19); BLOOD UREA NITROGEN 59 mg/dL (7-20); CALCIUM 8.1 mg/dL (8.4-10.2); CARBON DIOXIDE 27 mmol/L (22-30); CHLORIDE 100 mmol/L (98-107); POTASSIUM 4.2 mmol/L (3.6-5.0)
[2019-08-24 07:18] LABS: GLUCOSE 58 mg/dL (75-110)
[2019-08-24] MEDS: CALCIUM CARBONATE 500 MG TABLET PO SCH ×2 (09:27→17:35)
[2019-08-24] MEDS: CARVEDILOL 12.5 MG TABLET PO SCH ×2 (09:27→21:20)
[2019-08-24] MEDS: FUROSEMIDE INJ/PF 100 MG/10 ML SDV IV SCH (09:27)
[2019-08-24] MEDS: ISOSORBIDE MONONITRATE 60 MG TAB.ER.24H PO SCH (09:27)
[2019-08-24] MEDS: HYDRALAZINE HCL 10 MG TABLET PO SCH ×2 (09:27→17:35)
[2019-08-24] MEDS: NIFEDIPINE 30 MG TAB.ER.24 PO SCH (09:28)
[2019-08-24] MEDS: NICOTINE 21 MG/24 HR PATCH.TD24 TOP SCH (09:28)
[2019-08-24] MEDS: FLUTICASONE PROPIONATE HFA 110 MCG/PUFF 12 GM MDI IH SCH ×2 (09:28→17:36)
[2019-08-24] MEDS ORDERED: TRAMADOL HCL 50 MG TABLET PO ONE (10:00)
--- NOTE | 2019-08-24 11:22 | PDOC PROGRESS REPORT ---
Subjective Progress Note for:: 08/24/19 Subjective:: Patient is feeling better today after receiving dialysis yesterday. He states his breathing and chest pain have improved. Complains of headache today. Reason For Visit: FLUID OVERLOAD,ESRD Physical Exam Vital Signs: Temp Pulse Resp BP Pulse Ox 98.0 F 81 16 144/70 H 93 08/24/19 08:10 08/24/19 10:17 08/24/19 10:17 08/24/19 08:10 08/24/19 10:17 Intake & Output 08/23/19 08/24/19 08/25/19 06:59 06:59 06:59 Intake Total 860 720 Output Total 575 2800 Balance 285 -2080 Weight 80.8 kg 79.1 kg General appearance: PRESENT: no acute distress, cooperative Neck exam: PRESENT: JVD Respiratory exam: PRESENT: crackles - Basilar, unlabored. ABSENT: tachypnea, wheezes Cardiovascular exam: PRESENT: RRR, +S1, +S2. ABSENT: tachycardia GI/Abdominal exam: PRESENT: normal bowel sounds, soft. ABSENT: rebound, rigid Neurological exam: PRESENT: alert, awake, oriented to person, oriented to place, oriented to time Results Laboratory Results: 08/23/19 05:38 08/24/19 05:09 08/24/19 08/24/19 05:09 05:09 Sodium 138.5 Potassium 4.2 Chloride 100 Carbon Dioxide 27 Anion Gap 12 BUN 59 H Creatinine 9.97 H Est GFR ( Amer) 6 L Glucose 58 L Calcium 8.1 L PTH Intact 451.4 H 08/22/19 08/22/19 08/22/19 01:48 01:48 05:15 Creatine Kinase 146 CK-MB (CK-2) 2.94 Troponin I 0.049 0.049 NT-Pro-B Natriuret Pep 08/22/19 15:05 Creatine Kinase CK-MB (CK-2) Troponin I NT-Pro-B Natriuret Pep [id number] H Impressions: Chest X-Ray 08/22/19 00:00 IMPRESSION: Clear lungs. Assessment and Plan - Diagnosis (1) Fluid overload Qualifiers: Hypervolemia type: other Qualified Code(s): E87.79 - Other fluid overload Is this a current diagnosis for this admission?: Yes Plan: Secondary to missing dialysis for over a week. Chest x-ray showing increased pulmonary vascular congestion. BNP of 35,000. Fluid restriction. Improved following dialysis yesterday. Patient will get dialyzed again tomorrow. We will transition from IV Lasix to p.o. Lasix 80 mg daily. Patient does have some urine production. Nephrology following. (2) Chest pain Qualifiers: Chest pain type: unspecified Qualified Code(s): R07.9 - Chest pain, unspecified Is this a current diagnosis for this admission?: Yes Plan: Likely secondary to fluid overload state. EKG showing no changes. Troponin showing flat trend at 0.049 Trial of nitroglycerin as needed given his reported history of CAD. (3) ESRD needing dialysis Is this a current diagnosis for this admission?: Yes Plan: Typically dialyzes MWF Very noncompliant with hemodialysis-reports that his noncompliance is due to the time at which he gets dialyzed being in the evening. Nephrology following. We will dialyze again tomorrow. Discharge planning consulted to look into his outpatient dialysis issue (4) Hypocalcemia Is this a current diagnosis for this admission?: Yes Plan: Secondary to hypovitaminosis D and ESRD Intact PTH elevated. Vitamin D 25 is low normal and vitamin D1 25 levels pending Calcium supplementation and correction with HD. Noted allergy to calcitriol and as such will need an alternative analog of calcitriol upon discharge. (5) History of venous thromboembolism Is this a current diagnosis for this admission?: Yes Plan: Endorses history of DVT and his prior documentation of PE States he takes Coumadin 10 mg from Friday to Friday and 8 mg to Friday. Therapeutic INR on Coumadin (6) Chronic obstructive pulmonary disease Qualifiers: COPD type: unspecified COPD Qualified Code(s): J44.9 - Chronic obstructive pulmonary disease, unspecified Is this a current diagnosis for this admission?: Yes Plan: Currently stable. Continue scheduled ICS. Nebs as needed. (7) HIV (human immunodeficiency virus infection) Qualifiers: HIV symptom status: unspecified Qualified Code(s): B20 - Human immunodeficiency virus [HIV] disease Is this a current diagnosis for this admission?: Yes Plan: Continue HAART therapy (8) Tobacco abuse Is this a current diagnosis for this admission?: Yes Plan: Nicotine replacement therapy (9) Morbid obesity Is this a current diagnosis for this admission?: Yes - Time Time Spent with patient: Less than 15 minutes
[2019-08-24] MEDS ORDERED: FUROSEMIDE 80 MG TABLET PO SCH (12:00)
[2019-08-24] MEDS: Dolutegravir Sodium [Tivicay] 50 MG PO SCH (12:43)
[2019-08-24] MEDS: LAMIVUDINE 10 MG/ML PO SCH (12:43)
[2019-08-24] MEDS: DOCUSATE SODIUM 100 MG CAPSULE PO SCH (17:35)
[2019-08-24] MEDS: CALCIUM ACETATE 667 MG CAPSULE PO SCH (17:35)
[2019-08-24] MEDS: DOXAZOSIN MESYLATE 4 MG TABLET PO SCH (21:20)
[2019-08-24] MEDS: WARFARIN SODIUM 4 MG TABLET PO SCH (21:23)
[2019-08-24] MEDS: IPRATROPIUM/ALBUTEROL 0.5-2.5 MG/3 ML AMPUL NEB PRN (23:59)
[2019-08-25 04:27] LABS: HEMATOCRIT 31.9 % (37.9-51.0); HEMOGLOBIN 10.9 g/dL (13.5-17.0); MEAN CORPUSCULAR HEMOGLOBIN 31.7 pg (27.0-33.4); MEAN CORPUSCULAR HGB CONC 34.3 g/dL (32.0-36.0); MEAN CORPUSCULAR VOLUME 92 fl (80-97); PLATELET COUNT 160 10^3/uL (150-450); RED BLOOD COUNT 3.45 10^6/uL (4.35-5.55); RED CELL DISTRIBUTION WIDTH 14.6 % (11.5-14.0); WHITE BLOOD COUNT 7.2 10^3/uL (4.0-10.5)
[2019-08-25 04:40] LABS: ANION GAP 15 (5-19); BLOOD UREA NITROGEN 71 mg/dL (7-20); CALCIUM 8.1 mg/dL (8.4-10.2); CARBON DIOXIDE 20 mmol/L (22-30); CHLORIDE 101 mmol/L (98-107); GLUCOSE 99 mg/dL (75-110); POTASSIUM 4.3 mmol/L (3.6-5.0)
[2019-08-25] MEDS ORDERED: EPOETIN ALFA-EPBX 2,000 UNIT, EPOETIN ALFA-EPBX 3,000 UNIT, EPOETIN ALFA-EPBX 20,000 UN... IV PRN ×4 (05:00)
[2019-08-25] MEDS: CLONIDINE HCL 0.2 MG TABLET PO SCH ×3 (05:44→21:37)
[2019-08-25] MEDS: CALCIUM ACETATE 667 MG CAPSULE PO SCH ×3 (09:17→17:30)
--- NOTE | 2019-08-25 11:26 | PDOC PROGRESS REPORT ---
Subjective Progress Note for:: 08/25/19 Reason For Visit: Patient seen today on dialysis. He is undergoing dialysis without any issues. Vital signs are stable with improved blood pressures. Labs and medications were reviewed. Dialysis orders were reviewed with the treating dialysis nurse. Physical Exam Vital Signs: Temp Pulse Resp BP Pulse Ox 98.0 F 62 18 170/84 H 92 08/25/19 06:46 08/25/19 07:00 08/25/19 06:46 08/25/19 06:46 08/25/19 06:46 Intake & Output 08/24/19 08/25/19 08/26/19 06:59 06:59 06:59 Intake Total 720 256 Output Total 2800 640 Balance -2080 -384 Weight 79.1 kg 79.3 kg General appearance: PRESENT: no acute distress Respiratory exam: PRESENT: clear to auscultation ramila. ABSENT: crackles Cardiovascular exam: PRESENT: +S1, +S2 GI/Abdominal exam: PRESENT: normal bowel sounds, soft. ABSENT: organomegaly, tenderness Neurological exam: PRESENT: alert, awake, oriented to person, oriented to place Psychiatric exam: PRESENT: appropriate affect Results Laboratory Results: 08/25/19 04:03 08/25/19 04:03 08/25/19 08/25/19 04:03 04:03 WBC 7.2 RBC 3.45 L Hgb 10.9 L Hct 31.9 L MCV 92 MCH 31.7 MCHC 34.3 RDW 14.6 H Plt Count 160 Sodium 136.0 L Potassium 4.3 Chloride 101 Carbon Dioxide 20 L Anion Gap 15 BUN 71 H Creatinine 10.88 H Est GFR ( Amer) 6 L Glucose 99 Calcium 8.1 L 08/22/19 08/22/19 08/22/19 01:48 01:48 05:15 Creatine Kinase 146 CK-MB (CK-2) 2.94 Troponin I 0.049 0.049 NT-Pro-B Natriuret Pep 08/22/19 15:05 Creatine Kinase CK-MB (CK-2) Troponin I NT-Pro-B Natriuret Pep [id number] H Impressions: Chest X-Ray 08/22/19 00:00 IMPRESSION: Clear lungs. Assessment & Plan - Diagnosis (1) Congestive heart failure Qualifiers: Heart failure type: systolic Heart failure chronicity: chronic Qualified Code(s): I50.22 - Chronic systolic (congestive) heart failure Plan: Much improved. Advised about compliance with diet medications and hemodialysis treatments. (2) End stage renal disease Plan: Patient currently undergoing dialysis. Vital signs are stable. Dialysis is being supervised to ensure safe and smooth procedure. Plan to remove between 2- 3 L of fluid. Dialysis orders were reviewed with the treating dialysis nurse. (3) Hypocalcemia Is this a current diagnosis for this admission?: Yes Plan: Currently improved. Apparently allergic to calcitriol. We will start him on Hectorol as outpatient.Meanwhile increase calcium intake. (4) Chronic obstructive pulmonary disease Qualifiers: COPD type: unspecified COPD Qualified Code(s): J44.9 - Chronic obstructive pulmonary disease, unspecified Is this a current diagnosis for this admission?: Yes Plan: As per hospitalist. (5) HIV (human immunodeficiency virus infection) Qualifiers: HIV symptom status: unspecified Qualified Code(s): B20 - Human immunodeficiency virus [HIV] disease Is this a current diagnosis for this admission?: Yes Plan: As per hospitalist. (6) Noncompliance Plan: Discussed about compliance with diet medications and hemodialysis treatments. Also advised to make sure that he stays of cocaine. (7) Hyperkalemia Plan: Resolved. Advised proper dietary modifications and compliance. (8) Metabolic acidosis Plan: Stable.
[2019-08-25] MEDS: ISOSORBIDE MONONITRATE 60 MG TAB.ER.24H PO SCH (12:22)
[2019-08-25] MEDS: FUROSEMIDE 80 MG TABLET PO SCH (12:23)
[2019-08-25] MEDS: CALCIUM CARBONATE 500 MG TABLET PO SCH ×2 (12:23→17:30)
[2019-08-25] MEDS: CARVEDILOL 12.5 MG TABLET PO SCH ×2 (12:23→21:37)
[2019-08-25] MEDS: NIFEDIPINE 30 MG TAB.ER.24 PO SCH (12:23)
[2019-08-25] MEDS: HYDRALAZINE HCL 10 MG TABLET PO SCH ×2 (12:23→17:30)
[2019-08-25] MEDS: NICOTINE 21 MG/24 HR PATCH.TD24 TOP SCH (12:24)
[2019-08-25] MEDS: Dolutegravir Sodium [Tivicay] 50 MG PO SCH (12:24)
[2019-08-25] MEDS: FLUTICASONE PROPIONATE HFA 110 MCG/PUFF 12 GM MDI IH SCH ×2 (12:24→17:30)
[2019-08-25] MEDS: DOCUSATE SODIUM 100 MG CAPSULE PO SCH ×2 (12:24→17:30)
[2019-08-25] MEDS: LAMIVUDINE 10 MG/ML PO SCH (12:25)
--- NOTE | 2019-08-25 12:40 | PDOC PROGRESS REPORT ---
Subjective Progress Note for:: 08/25/19 Subjective:: Patient is seen status post dialysis. He complains of a headache as well as a sore throat. Denies any difficulty breathing Reason For Visit: FLUID OVERLOAD,ESRD Physical Exam Vital Signs: Temp Pulse Resp BP Pulse Ox 98.0 F 62 18 170/84 H 92 08/25/19 06:46 08/25/19 07:00 08/25/19 06:46 08/25/19 06:46 08/25/19 06:46 Intake & Output 08/24/19 08/25/19 08/26/19 06:59 06:59 06:59 Intake Total 720 256 Output Total 2800 640 Balance -2080 -384 Weight 79.1 kg 79.3 kg General appearance: PRESENT: no acute distress, well-developed, well-nourished Head exam: PRESENT: atraumatic, normocephalic Eye exam: PRESENT: conjunctiva pink, EOMI, PERRLA. ABSENT: scleral icterus Ear exam: PRESENT: normal external ear exam Mouth exam: PRESENT: moist, tongue midline Neck exam: ABSENT: carotid bruit, JVD, lymphadenopathy, thyromegaly Respiratory exam: PRESENT: clear to auscultation ramila. ABSENT: rales, rhonchi, wheezes Cardiovascular exam: PRESENT: RRR. ABSENT: diastolic murmur, rubs, systolic murmur Pulses: PRESENT: normal dorsalis pedis pul Vascular exam: PRESENT: normal capillary refill GI/Abdominal exam: PRESENT: normal bowel sounds, soft. ABSENT: distended, guarding, mass, organolmegaly, rebound, tenderness Rectal exam: PRESENT: deferred Extremities exam: PRESENT: full ROM. 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 ABSENT: motor sensory deficit Psychiatric exam: PRESENT: flat affect, normal mood. ABSENT: homicidal ideation, suicidal ideation Skin exam: PRESENT: dry, intact, warm. ABSENT: cyanosis, rash Results Laboratory Results: 08/25/19 04:03 08/25/19 04:03 08/25/19 08/25/19 04:03 04:03 WBC 7.2 RBC 3.45 L Hgb 10.9 L Hct 31.9 L MCV 92 MCH 31.7 MCHC 34.3 RDW 14.6 H Plt Count 160 Sodium 136.0 L Potassium 4.3 Chloride 101 Carbon Dioxide 20 L Anion Gap 15 BUN 71 H Creatinine 10.88 H Est GFR ( Amer) 6 L Glucose 99 Calcium 8.1 L 08/22/19 08/22/19 08/22/19 01:48 01:48 05:15 Creatine Kinase 146 CK-MB (CK-2) 2.94 Troponin I 0.049 0.049 NT-Pro-B Natriuret Pep 08/22/19 15:05 Creatine Kinase CK-MB (CK-2) Troponin I NT-Pro-B Natriuret Pep [id number] H Impressions: Chest X-Ray 08/22/19 00:00 IMPRESSION: Clear lungs. Assessment and Plan - Diagnosis (1) Chest pain Qualifiers: Chest pain type: unspecified Qualified Code(s): R07.9 - Chest pain, unspecified Is this a current diagnosis for this admission?: Yes Plan: Likely secondary to fluid overload state. EKG showing no changes. Troponin showing flat trend at 0.049 Trial of nitroglycerin as needed given his reported history of CAD. He is currently chest pain-free (2) Chronic kidney disease with end stage renal failure on dialysis Is this a current diagnosis for this admission?: Yes Plan: Patient was dialyzed today. He apparently missed dialysis for about a week leading to his admission to the hospital for fluid overload. Patient has been advised on the need to be a compliant with his medical treatment (3) Morbid obesity with BMI of 40.0-44.9, adult Is this a current diagnosis for this admission?: Yes (4) Fluid overload Qualifiers: Hypervolemia type: other Qualified Code(s): E87.79 - Other fluid overload Is this a current diagnosis for this admission?: Yes (5) Frontal headache Is this a current diagnosis for this admission?: Yes Plan: Patient complaint of headache with no lateralizing signs. Will treat empirically (6) HIV (human immunodeficiency virus infection) Qualifiers: HIV symptom status: unspecified Qualified Code(s): B20 - Human immunodeficiency virus [HIV] disease Is this a current diagnosis for this admission?: Yes Plan: Continue HAART therapy (7) History of DVT (deep vein thrombosis) Is this a current diagnosis for this admission?: Yes Plan: He is currently on Coumadin although is status post bilateral amputation (8) Noncompliance Is this a current diagnosis for this admission?: Yes (9) Tobacco abuse Is this a current diagnosis for this admission?: Yes Plan: Nicotine replacement therapy - Time Time Spent with patient: 15-24 minutes Medications reviewed and adjusted accordingly: Yes Anticipated discharge: Home Within: within 48 hours
[2019-08-25] MEDS ORDERED: BUTALB/ACETAMINOPHEN/CAFFEINE 1 TAB EACH PO ONE (13:30)
[2019-08-25 13:54] LABS: INTERNATIONAL RATION (INR) 2.55; PROTHROMBIN TIME 27.9 SEC (11.4-15.4)
[2019-08-25] MEDS ORDERED: BENZOCAINE/MENTHOL SORE THROAT LOZENGE BUCCAL PRN (16:54)
[2019-08-25] MEDS: IPRATROPIUM/ALBUTEROL 0.5-2.5 MG/3 ML AMPUL NEB PRN (18:40)
[2019-08-25] MEDS: DOXAZOSIN MESYLATE 4 MG TABLET PO SCH (21:37)
[2019-08-25] MEDS: WARFARIN SODIUM 4 MG TABLET PO SCH (21:45)
[2019-08-25] MEDS: ACETAMINOPHEN 325 MG TABLET PO PRN (22:43)
[2019-08-26 04:57] LABS: INTERNATIONAL RATION (INR) 3.35; PROTHROMBIN TIME 34.7 SEC (11.4-15.4)
[2019-08-26 05:20] LABS: ANION GAP 13 (5-19); CALCIUM 8.9 mg/dL (8.4-10.2); CARBON DIOXIDE 27 mmol/L (22-30); CHLORIDE 95 mmol/L (98-107); GLUCOSE 110 mg/dL (75-110); POTASSIUM 4.3 mmol/L (3.6-5.0)
[2019-08-26] MEDS: CLONIDINE HCL 0.2 MG TABLET PO SCH ×2 (05:29→13:59)
[2019-08-26 05:48] LABS: BLOOD UREA NITROGEN 42 mg/dL (7-20)
[2019-08-26] MEDS: CALCIUM ACETATE 667 MG CAPSULE PO SCH ×2 (08:30→11:48)
[2019-08-26] MEDS ORDERED: OXYCODONE-ACETAMINOPHEN 5-325 MG TABLET PO PRN (09:18)
--- NOTE | 2019-08-26 09:26 | PDOC PROGRESS REPORT ---
Subjective Progress Note for:: 08/26/19 Subjective:: Patient c/o abdominal pain Reason For Visit: FLUID OVERLOAD,ESRD Physical Exam Vital Signs: Temp Pulse Resp BP Pulse Ox 98.6 F 72 20 128/64 H 99 08/26/19 06:50 08/26/19 06:50 08/26/19 06:50 08/26/19 06:50 08/26/19 06:50 Intake & Output 08/25/19 08/26/19 08/27/19 06:59 06:59 06:59 Intake Total 256 1185 Output Total 640 3200 - Weight 79.3 kg 77.3 kg General appearance: PRESENT: no acute distress, cooperative Head exam: PRESENT: atraumatic Respiratory exam: PRESENT: clear to auscultation ramila, unlabored Cardiovascular exam: PRESENT: RRR, +S1, +S2 GI/Abdominal exam: PRESENT: soft. ABSENT: tenderness - Catheter running along R abdominal wall Rectal exam: PRESENT: deferred Musculoskeletal exam: PRESENT: other - L AKA, R BKA Results Laboratory Results: 08/25/19 04:03 08/26/19 03:57 08/26/19 03:57 Sodium 134.5 L Potassium 4.3 Chloride 95 L Carbon Dioxide 27 Anion Gap 13 BUN 42 H D Creatinine 8.56 H Est GFR ( Amer) 8 L Glucose 110 Calcium 8.9 08/22/19 08/22/19 08/22/19 01:48 01:48 05:15 Creatine Kinase 146 CK-MB (CK-2) 2.94 Troponin I 0.049 0.049 NT-Pro-B Natriuret Pep 08/22/19 15:05 Creatine Kinase CK-MB (CK-2) Troponin I NT-Pro-B Natriuret Pep [id number] H Impressions: Chest X-Ray 08/22/19 00:00 IMPRESSION: Clear lungs. Assessment and Plan - Diagnosis (1) Chest pain Qualifiers: Chest pain type: unspecified Qualified Code(s): R07.9 - Chest pain, unspecified Is this a current diagnosis for this admission?: Yes Plan: Likely secondary to fluid overload state. EKG showing no changes. Troponin showing flat trend at 0.049 He is currently chest pain-free (2) Chronic kidney disease with end stage renal failure on dialysis Is this a current diagnosis for this admission?: Yes Plan: Patient was dialyzed 2/5 He apparently missed dialysis for about a week leading to his admission to the hospital for fluid overload. Patient has been advised on the need to be a compliant with his medical treatment Currently awaiting dialysis slot prior to discharge (3) Morbid obesity with BMI of 40.0-44.9, adult Is this a current diagnosis for this admission?: Yes (4) Fluid overload Qualifiers: Hypervolemia type: other Qualified Code(s): E87.79 - Other fluid overload Is this a current diagnosis for this admission?: Yes Plan: Secondary to missing dialysis for over a week. Chest x-ray showing increased pulmonary vascular congestion. BNP of 35,000. Fluid restriction. I (5) Frontal headache Is this a current diagnosis for this admission?: Yes (6) HIV (human immunodeficiency virus infection) Qualifiers: HIV symptom status: unspecified Qualified Code(s): B20 - Human immunodeficiency virus [HIV] disease Is this a current diagnosis for this admission?: Yes Plan: Continue HAART therapy (7) History of DVT (deep vein thrombosis) Is this a current diagnosis for this admission?: Yes Plan: He is currently on Coumadin although is status post bilateral amputation INR noted to be 3.35 Coumadin dose should be adjusted (8) Noncompliance Is this a current diagnosis for this admission?: Yes (9) Tobacco abuse Is this a current diagnosis for this admission?: Yes Plan: Nicotine replacement therapy - Time Time Spent with patient: 15-24 minutes
[2019-08-26] MEDS: CARVEDILOL 12.5 MG TABLET PO SCH (10:04)
[2019-08-26] MEDS: CALCIUM CARBONATE 500 MG TABLET PO SCH (10:05)
[2019-08-26] MEDS: FUROSEMIDE 80 MG TABLET PO SCH (10:05)
[2019-08-26] MEDS: HYDRALAZINE HCL 10 MG TABLET PO SCH (10:05)
[2019-08-26] MEDS: NICOTINE 21 MG/24 HR PATCH.TD24 TOP SCH (10:05)
[2019-08-26] MEDS: ISOSORBIDE MONONITRATE 60 MG TAB.ER.24H PO SCH (10:05)
[2019-08-26] MEDS: DOCUSATE SODIUM 100 MG CAPSULE PO SCH (10:05)
[2019-08-26] MEDS: NIFEDIPINE 30 MG TAB.ER.24 PO SCH (10:05)
[2019-08-26] MEDS: FLUTICASONE PROPIONATE HFA 110 MCG/PUFF 12 GM MDI IH SCH (10:06)
[2019-08-26] MEDS: LAMIVUDINE 10 MG/ML PO SCH (10:07)
[2019-08-26] MEDS: Dolutegravir Sodium [Tivicay] 50 MG PO SCH (10:07)
[2019-08-26] MEDS: IPRATROPIUM/ALBUTEROL 0.5-2.5 MG/3 ML AMPUL NEB PRN (10:23)
[2019-08-26 11:30] VITALS: BP 125/58
[2019-08-26] MEDS ORDERED: ACETAMINOPHEN 325 MG TABLET PO PRN (15:30)
--- NOTE | 2019-08-26 18:18 | PDOC DISCHARGE SUMMARY ---
Impression - Admit/DC Date/PCP Admission Date/Primary Care Provider: 08/22/19 10:07 OLIVER ARTHUR MD Discharge Date: 08/26/19 - Discharge Diagnosis (1) Chest pain Is this a current diagnosis for this admission?: Yes (2) Chronic kidney disease with end stage renal failure on dialysis Is this a current diagnosis for this admission?: Yes (3) Morbid obesity with BMI of 40.0-44.9, adult Is this a current diagnosis for this admission?: Yes (4) Fluid overload Is this a current diagnosis for this admission?: Yes (5) Frontal headache Is this a current diagnosis for this admission?: Yes (6) HIV (human immunodeficiency virus infection) Is this a current diagnosis for this admission?: Yes (7) History of DVT (deep vein thrombosis) Is this a current diagnosis for this admission?: Yes (8) Noncompliance Is this a current diagnosis for this admission?: Yes (9) Tobacco abuse Is this a current diagnosis for this admission?: Yes - Additional Information Resuscitation Status: Full Code Discharge Diet: Other (Comments) - Renal Discharge Activity: Activity As Tolerated Referrals: OLIVER ARTHUR MD [Primary Care Provider] - 09/03/19 1:00 pm ( KAIT SUERO ---09-03-2019@1:00) Home Medications: Abacavir Sulfate [Abacavir 300 mg Tablet] 600 mg PO DAILY 08/22/19 Albuterol Sulfate [Albuterol Sulfate Hfa] 2 puff IH Q6HP PRN 08/22/19 Carvedilol [Coreg] 25 mg PO Q12 08/22/19 Clonidine HCl [Catapres 0.2 mg Tablet] 0.2 mg PO Q8 08/22/19 Clonidine [Catapres-Tts 3 (0.3 mg/24 Hr) Transderm Patch] 0.3 mg TOP GUTIÉRREZ@1000 08/22/19 Dolutegravir Sodium [Tivicay] 50 mg PO DAILY 08/22/19 Doxazosin Mesylate [Cardura 4 mg Tablet] 4 mg PO QHS 08/22/19 Fluticasone Propionate [Flovent Hfa 110 Mcg Inhalation Aerosol 12 gm] 2 puff IH BID 08/22/19 Hydralazine HCl [Apresoline 10 mg Tablet] 10 mg PO Q12 08/22/19 Ipratropium/Albuterol Sulfate [Duoneb 3 ml Ampul] 3 ml NEB RTQID 08/22/19 Isosorbide Mononitrate [Isosorbide Mononitrate ER] 120 mg PO DAILY 08/22/19 Lamivudine [Epivir] 1 tsp PO DAILY 08/22/19 Nicotine [Nicoderm 21 mg/24 Hr Transderm Patch] 21 mg TOP DAILY 08/22/19 Nifedipine [Nifedipine ER] 90 mg PO DAILY 08/22/19 Calcium Acetate [Phoslo 667 mg Capsule] 667 mg PO MEALS MDD LAST FILLED 01/18/19 08/24/19 Calcium Carbonate [Os-Farhad 500 mg Tablet (Oyster-Shell)] 1,000 mg PO BID tablet 08/26/19 Furosemide [Lasix 80 mg Tablet] 80 mg PO DAILY #0 tablet 08/26/19 Warfarin Sodium 10 mg PO SUFRSA@2200 #0 08/26/19 Warfarin Sodium [Coumadin 4 mg Tablet] 8 mg PO MOTUWETH@2200 #0 08/26/19 History of Present Illiness History of Present Illness: KRISTY CANTU is a 64 year old male was admitted with difficulty breathing and shortness of breath. He was in pulmonary edema secondary to missed dialysis. Hospital Course Hospital Course: Patient admitted to missing his dialysis for about 1 week. He also had associated chest pain on admission. This was thought to be secondary to the fluid overload. Acute coronary syndrome was ruled out. Patient was seen by nephrology and he was started back on his dialysis regimen. He has continued to improve while in hospital and he remains hemodynamically stable. He is INR was somewhat elevated today and so he is Coumadin is being held. INR was 3.35. INR to be rechecked tomorrow at dialysis. Patient was also continued on his HAART regimen. With patient being hemodynamically stable he is being discharged home for outpatient follow-up. He scheduled for his dialysis tomorrow and has been advised on the need to be compliant Physical Exam Vital Signs: Temp Pulse Resp BP Pulse Ox 98.6 F 76 20 125/58 L 97 08/26/19 11:12 08/26/19 14:00 08/26/19 11:12 08/26/19 11:12 08/26/19 11:12 Intake & Output 08/25/19 08/26/19 08/27/19 06:59 06:59 06:59 Intake Total 256 1185 240 Output Total 640 3200 150 Weight 79.3 kg 77.3 kg General appearance: PRESENT: no acute distress, cooperative Head exam: PRESENT: atraumatic Neck exam: ABSENT: JVD Respiratory exam: PRESENT: clear to auscultation ramila, unlabored Cardiovascular exam: PRESENT: RRR, +S1, +S2 GI/Abdominal exam: PRESENT: soft. ABSENT: tenderness Extremities exam: PRESENT: other - L AKA,R BKA Results Laboratory Results: WBC 7.2 10^3/uL (4.0-10.5) 08/25/19 04:03 RBC 3.45 10^6/uL (4.35-5.55) L 08/25/19 04:03 Hgb 10.9 g/dL (13.5-17.0) L 08/25/19 04:03 Hct 31.9 % (37.9-51.0) L 08/25/19 04:03 MCV 92 fl (80-97) 08/25/19 04:03 MCH 31.7 pg (27.0-33.4) 08/25/19 04:03 MCHC 34.3 g/dL (32.0-36.0) 08/25/19 04:03 RDW 14.6 % (11.5-14.0) H 08/25/19 04:03 Plt Count 160 10^3/uL (150-450) 08/25/19 04:03 Lymph % (Auto) 46.1 % (13-45) H 08/23/19 05:38 Kerr % (Auto) 8.6 % (3-13) 08/23/19 05:38 Eos % (Auto) 6.1 % (0-6) H 08/23/19 05:38 Baso % (Auto) 0.6 % (0-2) 08/23/19 05:38 Absolute Neuts (auto) 2.6 10^3/uL (1.7-8.2) 08/23/19 05:38 Absolute Lymphs (auto) 3.1 10^3/uL (0.5-4.7) 08/23/19 05:38 Absolute Monos (auto) 0.6 10^3/uL (0.1-1.4) 08/23/19 05:38 Absolute Eos (auto) 0.4 10^3/uL (0.0-0.6) 08/23/19 05:38 Absolute Basos (auto) 0.0 10^3/uL (0.0-0.2) 08/23/19 05:38 Seg Neutrophils % 38.6 % (42-78) L 08/23/19 05:38 PT 34.7 SEC (11.4-15.4) H 08/26/19 03:57 INR 3.35 08/26/19 03:57 Sodium 134.5 mmol/L (137-145) L 08/26/19 03:57 Potassium 4.3 mmol/L (3.6-5.0) 08/26/19 03:57 Chloride 95 mmol/L (98-107) L 08/26/19 03:57 Carbon Dioxide 27 mmol/L (22-30) 08/26/19 03:57 Anion Gap 13 (5-19) 08/26/19 03:57 BUN 42 mg/dL (7-20) H D 08/26/19 03:57 Creatinine 8.56 mg/dL (0.52-1.25) H 08/26/19 03:57 Est GFR ( Amer) 8 (>60) L 08/26/19 03:57 Est GFR (MDRD) Non-Af 6 (>60) L 08/26/19 03:57 Glucose 110 mg/dL (75-110) 08/26/19 03:57 POC Glucose 86 mg/dL (70-110) 08/24/19 07:22 Calcium 8.9 mg/dL (8.4-10.2) 08/26/19 03:57 Phosphorus 9.5 mg/dL (2.5-4.5) H 08/23/19 03:58 Total Bilirubin 0.2 mg/dL (0.2-1.3) 08/23/19 03:58 Direct Bilirubin 0.1 mg/dL (0.0-0.4) 08/23/19 03:58 Neonat Total Bilirubin Not Reportable 08/23/19 03:58 Neonat Direct Bilirubin Not Reportable 08/23/19 03:58 Neonat Indirect Bili Not Reportable 08/23/19 03:58 AST 19 U/L (17-59) 08/23/19 03:58 ALT 19 U/L (<50) 08/23/19 03:58 Alkaline Phosphatase 54 U/L (38-126) 08/23/19 03:58 Creatine Kinase 146 U/L (55-170) 08/22/19 01:48 CK-MB (CK-2) 2.94 ng/mL (<4.55) 08/22/19 01:48 Troponin I 0.049 ng/mL 08/22/19 05:15 NT-Pro-B Natriuret Pep 25630 pg/mL (<125) H 08/22/19 15:05 Total Protein 6.2 g/dL (6.3-8.2) L 08/23/19 03:58 Albumin 3.4 g/dL (3.5-5.0) L 08/23/19 03:58 Vitamin D 25-Hydroxy 17.7 ng/mL (14.7-68.3) 08/22/19 15:05 Vit D 1,25-Dihydroxy <5.0 pg/mL (19.9-79.3) L 08/23/19 03:58 PTH Intact 451.4 pg/mL (10.0-65.0) H 08/24/19 05:09 Urine Color YELLOW 08/22/19 09:54 Urine Appearance CLEAR 08/22/19 09:54 Urine pH 7.0 (5.0-9.0) 08/22/19 09:54 Ur Specific [place] 1.012 08/22/19 09:54 Urine Protein 100 mg/dL (NEGATIVE) H 08/22/19 09:54 Urine Glucose (UA) 50 mg/dL (NEGATIVE) H 08/22/19 09:54 Urine Ketones NEGATIVE mg/dL (NEGATIVE) 08/22/19 09:54 Urine Blood SMALL (NEGATIVE) H 08/22/19 09:54 Urine Nitrite NEGATIVE (NEGATIVE) 08/22/19 09:54 Urine Bilirubin NEGATIVE (NEGATIVE) 08/22/19 09:54 Urine Urobilinogen NEGATIVE mg/dL (<2.0) 08/22/19 09:54 Ur Leukocyte Esterase NEGATIVE (NEGATIVE) 08/22/19 09:54 Urine WBC (Auto) 1 /HPF 08/22/19 09:54 Urine RBC (Auto) 0 /HPF 08/22/19 09:54 Squamous Epi Cells Auto <1 /HPF 08/22/19 09:54 Urine Mucus (Auto) RARE /LPF 08/22/19 09:54 Urine Ascorbic Acid NEGATIVE (NEGATIVE) 08/22/19 09:54 Urine Opiates Screen NEGATIVE 08/22/19 09:54 Urine Methadone Screen NEGATIVE 08/22/19 09:54 Ur Barbiturates Screen NEGATIVE 08/22/19 09:54 Ur Phencyclidine Scrn NEGATIVE 08/22/19 09:54 Ur Amphetamines Screen NEGATIVE 08/22/19 09:54 U Benzodiazepines Scrn NEGATIVE 08/22/19 09:54 Urine Cocaine Screen NEGATIVE 08/22/19 09:54 U Marijuana (THC) Screen NEGATIVE 08/22/19 09:54 08/22/19 08/22/19 08/22/19 01:48 05:15 15:05 CK-MB (CK-2) 2.94 Troponin I 0.049 0.049 NT-Pro-B Natriuret Pep [id number] H Impressions: Chest X-Ray 08/22/19 00:00 IMPRESSION: Clear lungs. Plan Health Concerns: She has been advised on the need to be compliant with his medications as well as his dialysis. He is to skip his Coumadin dose tonight and his PT and INR is to be checked in a.m. Further dose adjustments should be made from there Goals: [facility] [address] [phone] KAIT BARNARD ---09-03-2019@1:00 Stroke Is this a Stroke Patient?: No Acute Heart Failure - Is this a Heart Failure Patient?: No
== END 2019-08-26 18:00 | disposition home or self-care (01) | DRG 640 ==
LOC: ER 01:04 → EH 10:07 → 3W 14:48
PROVIDERS: ADMIT Internal Medicine; ATTEND Internal Medicine
PROC: 5A1D70Z Performance of Urinary Filtration, Intermittent, Less than 6 Hours Per Day (ICD-10-PCS; principal; 2019-08-23)
DX: E87.79 Other fluid overload (principal); N18.6 End stage renal disease; Z68.41 Body mass index [BMI] 40.0-44.9, adult; I13.2 Hypertensive heart and chronic kidney disease with heart failure and with stage 5 chronic kidney disease, or end stage renal disease; N25.81 Secondary hyperparathyroidism of renal origin; I50.42 Chronic combined systolic (congestive) and diastolic (congestive) heart failure; R07.9 Chest pain, unspecified; E87.2 Acidosis; E66.01 Morbid (severe) obesity due to excess calories; Z21 Asymptomatic human immunodeficiency virus [HIV] infection status; J44.9 Chronic obstructive pulmonary disease, unspecified; I25.10 Atherosclerotic heart disease of native coronary artery without angina pectoris; E78.5 Hyperlipidemia, unspecified; E11.22 Type 2 diabetes mellitus with diabetic chronic kidney disease; E11.51 Type 2 diabetes mellitus with diabetic peripheral angiopathy without gangrene; K21.9 Gastro-esophageal reflux disease without esophagitis; F32.9 Major depressive disorder, single episode, unspecified; D63.1 Anemia in chronic kidney disease; E83.51 Hypocalcemia; F17.210 Nicotine dependence, cigarettes, uncomplicated; R51 Headache; E78.00 Pure hypercholesterolemia, unspecified; I25.2 Old myocardial infarction; Z91.19 Patient's noncompliance with other medical treatment and regimen; Z86.718 Personal history of other venous thrombosis and embolism; Z79.899 Other long term (current) drug therapy; Z79.01 Long term (current) use of anticoagulants; Z89.511 Acquired absence of right leg below knee; Z89.612 Acquired absence of left leg above knee; Z79.4 Long term (current) use of insulin; Z91.14 Patient's other noncompliance with medication regimen; Z88.8 Allergy status to other drugs, medicaments and biological substances; Z91.11 Patient's noncompliance with dietary regimen; Z91.15 Patient's noncompliance with renal dialysis
CPT/HCPCS: 36415; 71046; 80048; 80053; 80307; 81001; 82306; 82550; 82553; 82652; 82962; 83880; 83970; 84100; 84484; 85025; 85027; 85610; 93005; 93010; 94660; 96374; 99285; J0360; J0610; J1940; J2270; J3490; J7620; Q5105

== ENCOUNTER 2019-09-28 08:18 | Emergency (ER) | payer MEDICARE, MEDICAID ==
--- NOTE | 2019-09-28 08:41 | ER Document Report ---
ED General - General Chief Complaint: Shortness Of Breath Stated Complaint: SHORTNESS OF BREATH Time Seen by Provider: 09/28/19 08:41 Primary Care Provider: OLIVER ARTHUR MD [Primary Care Provider] - Follow up as needed TRAVEL OUTSIDE OF THE [place] IN LAST 30 DAYS: No - HPI Patient complains to provider of: SOB Notes: 64-year-old male presents with profound shortness of breath and decreased exercise tolerance starting this morning. 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 He could not. Patient has lengthy medical history of COPD, congestive heart failure, hemodialysis. [facility]. Denies fever chills - Related Data Allergies/Adverse Reactions: calcitriol Allergy (Verified 09/28/19 08:47) itching Past Medical History - Social History Smoking Status: Unknown if Ever Smoked Family History: Reviewed & Not Pertinent, CAD, CVA, DM, Hyperlipidemia, Hypertension, Malignancy - Past Medical History Cardiac Medical History: Reports: Hx Congestive Heart Failure - EF is 40%, with moderate diastolic dysfunction, Hx Coronary Artery Disease, Hx DVT, Hx Heart Attack, Hx Hypercholesterolemia, Hx Hypertension, Hx Peripheral Vascular Disease, Hx Pulmonary Embolism Denies: Hx Atrial Fibrillation Pulmonary Medical History: Reports: Hx Bronchitis, Hx COPD, Hx Pneumonia, Hx Respiratory Failure Denies: Hx Asthma, Hx Sleep Apnea Neurological Medical History: Denies: Hx Migraine, Hx Seizures Endocrine Medical History: Reports: Hx Diabetes Mellitus Type 1 - insulin, Hx Diabetes Mellitus Type 2 - insulin dependent. Denies: Hx Hyperthyroidism, Hx Hypothyroidism Renal/ Medical History: Reports: Hx End Stage Renal Disease - Dialysis MWF with Dr. Pablo Lowe, Hx Hemodialysis, Hx Renal Insufficiency. Denies: Hx Peritoneal Dialysis GI Medical History: Reports: Hx Gastroesophageal Reflux Disease. Denies: Hx Cirrhosis, Hx Crohn's Disease, Hx Hepatitis, Hx Ulcerative Colitis Musculoskeletal Medical History: Reports Hx Arthritis, Denies Hx Fibromyalgia, 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 bilat AKA, Reports Hx Musculoskeletal Trauma Skin Medical History: Denies Hx Eczema, Denies Hx Psoriasis Psychiatric Medical History: Reports: Hx Depression Traumatic Medical History: Denies: Hx Traumatic Brain Injury Infectious Medical History: Reports: Hx HIV - noncompliant with meds. Denies: Hx Hepatitis Past Surgical History: Reports: Hx Orthopedic Surgery - bilateral amputation, R BKA, L AKA, Hx Vascular Surgery - left arm clot removed, IVC filter, thrombectomy 05/18/2018 left arm, Other - Tunnel graft right axillary femoral bypass, dialysis fistula LUE - Immunizations Immunizations up to date: Yes Hx Diphtheria, Pertussis, Tetanus Vaccination: Yes Hx Pneumococcal Vaccination: 07/21/10 Review of Systems - Review of Systems Notes: REVIEW OF SYSTEMS: CONSTITUTIONAL: -fevers, -chills EENT: -eye pain, -difficulty swallowing, -nasal congestion CARDIOVASCULAR: -chest pain, -syncope. RESPIRATORY: -cough, positive SOB GASTROINTESTINAL: -abdominal pain, -nausea, -vomiting, -diarrhea GENITOURINARY: -dysuria, -hematuria MUSCULOSKELETAL: -back pain, -neck pain SKIN: -rash or skin lesions. HEMATOLOGIC: -easy bruising or bleeding. LYMPHATIC: -swollen, enlarged glands. NEUROLOGICAL: -altered mental status or loss of consciousness, -headache, - neurologic symptoms PSYCHIATRIC: -anxiety, -depression. ALL OTHER SYSTEMS REVIEWED AND NEGATIVE. Physical Exam - Vital signs Vitals: Temp Pulse Resp BP Pulse Ox 98.2 F 78 20 176/94 H 100 09/28/19 08:34 09/28/19 08:34 09/28/19 08:34 09/28/19 08:34 09/28/19 08:34 - Notes Notes: PHYSICAL EXAMINATION: GENERAL: Well-appearing, well-nourished and in no acute distress. HEAD: Atraumatic, normocephalic. EYES: Pupils equal round and reactive to light, extraocular movements intact, sclera anicteric, conjunctiva are normal. ENT: nares patent, oropharynx clear without exudates. Moist mucous membranes. NECK: Normal range of motion, supple without lymphadenopathy LUNGS: Bilateral basilar crackles HEART: Regular rate and rhythm without murmurs ABDOMEN: Soft, nontender, normoactive bowel sounds. No guarding, no rebound. No masses appreciated. EXTREMITIES: Normal range of motion, no pitting or edema. No cyanosis. NEUROLOGICAL: Cranial nerves grossly intact. Normal speech, normal gait. Normal sensory and motor exams. PSYCH: Normal mood, normal affect. SKIN: Warm, Dry, normal turgor, no rashes or lesions noted. Course - Re-evaluation Re-evalutation: 09/28/19 09:11 64-year-old male presents with significant shortness of breath and decreased exercise tolerance. Patient does have history of congestive heart failure takes daily Lasix. Physical exam concerning for pulmonary edema. 09/28/19 10:12 Patient's extensive lab work-up shows no leukocytosis, mild elevation in potassium near baseline for this patient. Patient is in fluid overload with elevated proBNP. Patient's chest x-ray is no focal infiltrate or pulmonary edema, not requiring any supplemental oxygen. Patient will be given IV dose of Lasix here in the emergency department. Patient is scheduled for dialysis tomorrow morning. Patient also requesting some IV fentanyl for his headache. After this patient will be discharged home improved follow-up PCP return if any changes - Vital Signs Vital signs: Temp Pulse Resp BP Pulse Ox 98.2 F 79 16 176/94 H 100 09/28/19 08:41 09/28/19 08:41 09/28/19 08:41 09/28/19 08:41 09/28/19 08:41 - Laboratory Result Diagrams: 09/28/19 09:05 09/28/19 09:05 Laboratory results interpreted by me: 09/28/19 09/28/19 09/28/19 09:05 09:05 09:05 RBC 3.89 L Hgb 12.4 L Hct 36.5 L RDW 14.8 H Potassium 5.6 H BUN 38 H Creatinine 6.90 H Est GFR ( Amer) 10 L Est GFR (MDRD) Non-Af 8 L NT-Pro-B Natriuret Pep 54462 H Discharge - Discharge Clinical Impression: SOB (shortness of breath) Condition: Stable Disposition: HOME, SELF-CARE Instructions: Congestive Heart Failure ([facility]) Referrals: OLIVER ARTHUR MD [Primary Care Provider] - Follow up as needed
[2019-09-28] MEDS ORDERED: IPRATROPIUM/ALBUTEROL 0.5-2.5 MG/3 ML AMPUL NEB ONE ×3 (08:49)
[2019-09-28 09:27] LABS: ABSOLUTE BASOPHILS # (AUTO) 0.1 10^3/uL (0.0-0.2); ABSOLUTE EOSINOPHILS # (AUTO) 0.3 10^3/uL (0.0-0.6); ABSOLUTE LYMPHOCYTES (AUTO) 2.9 10^3/uL (0.5-4.7); ABSOLUTE MONOCYTES (AUTO) 0.7 10^3/uL (0.1-1.4); ABSOLUTE NEUT (AUTO) 3.3 10^3/uL (1.7-8.2); BASOPHILS % (AUTO) 0.8 % (0-2); EOSINOPHILS % (AUTO) 4.4 % (0-6); HEMATOCRIT 36.5 % (37.9-51.0); HEMOGLOBIN 12.4 g/dL (13.5-17.0); LYMPHOCYTES % (AUTO) 40.1 % (13-45); MEAN CORPUSCULAR HEMOGLOBIN 31.9 pg (27.0-33.4); MEAN CORPUSCULAR VOLUME 94 fl (80-97); MONOCYTES % (AUTO) 9.3 % (3-13); PLATELET COUNT 204 10^3/uL (150-450); RED BLOOD COUNT 3.89 10^6/uL (4.35-5.55); RED CELL DISTRIBUTION WIDTH 14.8 % (11.5-14.0); SEGMENTED NEUTROPHILS % (AUTO) 45.4 % (42-78); TOTAL CELLS COUNTED % (AUTO) 100 %; WHITE BLOOD COUNT 7.2 10^3/uL (4.0-10.5)
[2019-09-28 09:45] LABS: ANION GAP 11 (5-19); BLOOD UREA NITROGEN 38 mg/dL (7-20); CALCIUM 9.1 mg/dL (8.4-10.2); CARBON DIOXIDE 27 mmol/L (22-30); CHLORIDE 101 mmol/L (98-107); GLUCOSE 101 mg/dL (75-110); POTASSIUM 5.6 mmol/L (3.6-5.0)
--- NOTE | 2019-09-28 09:45 | RADIOLOGY REPORT (SQ) ---
EXAM DESCRIPTION: CHEST SINGLE VIEW COMPLETED DATE/TIME: 09/28/2019 9:33 am REASON FOR STUDY: sob COMPARISON: Chest films 08/22/2019, 08/03/2019, 04/18/2019 EXAM PARAMETERS: NUMBER OF VIEWS: One view. TECHNIQUE: Single frontal radiographic view of the chest acquired. RADIATION DOSE: NA LIMITATIONS: None. FINDINGS: LUNGS AND PLEURA: Minimal left basilar atelectasis or scarring. Lungs are otherwise well inflated and clear. No pleural effusion. No pneumothorax. MEDIASTINUM AND HILAR STRUCTURES: No masses. Contour normal. HEART AND VASCULAR STRUCTURES: Heart normal in size. Normal vasculature. BONES: No acute findings. HARDWARE: Surgical clips right axilla OTHER: No other significant finding. IMPRESSION: Minimal left basilar atelectasis or scarring TECHNICAL DOCUMENTATION: JOB ID: [id number] 2010 [employer]- All Rights Reserved Reading location - IP/workstation name: [email or web address]
[2019-09-28 09:59] LABS: TROPONIN I 0.055 ng/mL
[2019-09-28] MEDS ORDERED: FUROSEMIDE INJ/PF 100 MG/10 ML SDV IV ONE (10:09)
[2019-09-28] MEDS ORDERED: FENTANYL CITRATE INJ/PF 100 MCG/2 ML AMPUL IV ONE (10:11)
[2019-09-28 11:19] VITALS: BP 169/89
--- NOTE | 2019-09-28 11:48 | EKG REPORT ---
SEVERITY:- ABNORMAL ECG - SINUS RHYTHM LEFT AXIS DEVIATION LEFT VENTRICULAR HYPERTROPHY : Confirmed by: Beulah Storm 28-Sep-2019 11:47:53
== END 2019-09-28 11:40 | disposition home or self-care (01) ==
LOC: ER 08:18
DX: I13.2 Hypertensive heart and chronic kidney disease with heart failure and with stage 5 chronic kidney disease, or end stage renal disease (principal); I50.9 Heart failure, unspecified; E11.22 Type 2 diabetes mellitus with diabetic chronic kidney disease; N18.6 End stage renal disease; Z99.2 Dependence on renal dialysis; E11.51 Type 2 diabetes mellitus with diabetic peripheral angiopathy without gangrene; R51 Headache; J44.9 Chronic obstructive pulmonary disease, unspecified; R06.02 Shortness of breath; Z79.899 Other long term (current) drug therapy; Z86.711 Personal history of pulmonary embolism; Z21 Asymptomatic human immunodeficiency virus [HIV] infection status; Z88.8 Allergy status to other drugs, medicaments and biological substances
CPT/HCPCS: 93005; 94640; 99285; 96374; 96375; 36415; 85025; 80048; 84484; 83880; 71045; 93010; J3010; J1940; A9270; J7620

== ENCOUNTER 2019-10-04 19:32 | Inpatient (IN) | payer MEDICARE, MEDICAID ==
--- NOTE | 2019-10-04 20:21 | ER Document Report ---
ED Medical Screen (RME) - General Chief Complaint: Chest Pain Stated Complaint: CHEST PAIN Time Seen by Provider: 10/04/19 20:14 Primary Care Provider: OLIVER ARTHUR MD [Primary Care Provider] - Follow up as needed Mode of Arrival: Wheelchair Notes: 64-year-old male with history of left AKA right BKA, [place], dialysis, DVTs presents to the emergency department with complaints of chest pain and severe left leg pain. Reports started today around 1400. Denies hurting his leg. Denies fever vomiting diarrhea. Patient does admit to having this type of chest pain in the past and his doctor gave him pain medication for it. 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 He reports that pain is new. I have greeted and performed a rapid initial assessment of this patient. A c omprehensive ED assessment and evaluation of the patient, analysis of test results and completion of the medical decision making process will be conducted by additional ED providers. TRAVEL OUTSIDE OF THE [place] IN LAST 30 DAYS: No - Related Data Allergies/Adverse Reactions: calcitriol Allergy (Verified 10/04/19 20:15) itching Past Medical History - Social History Family history: Reviewed & Not Pertinent - Past Medical History Cardiac Medical History: Reports: Hx Congestive Heart Failure - EF is 40%, with moderate diastolic dysfunction, Hx Coronary Artery Disease, Hx DVT, Hx Heart Attack, Hx Hypercholesterolemia, Hx Hypertension, Hx Peripheral Vascular Disease, Hx Pulmonary Embolism Denies: Hx Atrial Fibrillation Pulmonary Medical History: Reports: Hx Bronchitis, Hx COPD, Hx Pneumonia, Hx Respiratory Failure Denies: Hx Asthma, Hx Sleep Apnea Neurological Medical History: Denies: Hx Migraine, Hx Seizures Endocrine Medical History: Reports: Hx Diabetes Mellitus Type 1 - insulin, Hx Diabetes Mellitus Type 2 - insulin dependent. Denies: Hx Hyperthyroidism, Hx Hypothyroidism Renal/ Medical History: Reports: Hx End Stage Renal Disease - Dialysis MWF with Dr. Pablo Lowe, Hx Hemodialysis, Hx Renal Insufficiency. Denies: Hx Peritoneal Dialysis GI Medical History: Reports: Hx Gastroesophageal Reflux Disease. Denies: Hx Cirrhosis, Hx Crohn's Disease, Hx Hepatitis, Hx Ulcerative Colitis Musculoskeltal Medical History: Reports Hx Arthritis, Denies Hx Fibromyalgia, 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 bilat AKA, Reports Hx Musculoskeletal Trauma Skin Medical History: Denies Hx Eczema, Denies Hx Psoriasis Psychiatric Medical History: Reports: Hx Depression Traumatic Medical History: Denies: Hx Traumatic Brain Injury Infectious Medical History: Reports: Hx HIV - noncompliant with meds. Denies: Hx Hepatitis Past Surgical History: Reports: Hx Orthopedic Surgery - bilateral amputation, R BKA, L AKA, Hx Vascular Surgery - left arm clot removed, IVC filter, thrombectomy 05/18/2018 left arm, Other - Tunnel graft right axillary femoral bypass, dialysis fistula LUE - Immunizations Immunizations up to date: Yes Hx Diphtheria, Pertussis, Tetanus Vaccination: Yes Physical Exam - Vital signs Vitals: Temp Pulse Resp BP Pulse Ox 98.0 F 18 L 16 178/89 H 96 10/04/19 20:15 10/04/19 20:15 10/04/19 20:15 10/04/19 20:15 10/04/19 20:15 Course - Vital Signs Vital signs: Temp Pulse Resp BP Pulse Ox 98.0 F 18 L 16 178/89 H 96 10/04/19 20:15 10/04/19 20:15 10/04/19 20:15 10/04/19 20:15 10/04/19 20:15 Doctor's Discharge - Discharge Referrals: OLIVER ARTHUR MD [Primary Care Provider] - Follow up as needed
[2019-10-04 21:08] LABS: ABSOLUTE EOSINOPHILS # (AUTO) 0.3 10^3/uL (0.0-0.6); ABSOLUTE LYMPHOCYTES (AUTO) 2.9 10^3/uL (0.5-4.7); ABSOLUTE MONOCYTES (AUTO) 0.7 10^3/uL (0.1-1.4); ABSOLUTE NEUT (AUTO) 2.8 10^3/uL (1.7-8.2); BASOPHILS % (AUTO) 0.7 % (0-2); EOSINOPHILS % (AUTO) 4.2 % (0-6); HEMATOCRIT 35.3 % (37.9-51.0); HEMOGLOBIN 12.3 g/dL (13.5-17.0); LYMPHOCYTES % (AUTO) 42.6 % (13-45); MEAN CORPUSCULAR HEMOGLOBIN 32.5 pg (27.0-33.4); MEAN CORPUSCULAR HGB CONC 34.9 g/dL (32.0-36.0); MEAN CORPUSCULAR VOLUME 93 fl (80-97); MONOCYTES % (AUTO) 10.5 % (3-13); PLATELET COUNT 183 10^3/uL (150-450); RED BLOOD COUNT 3.79 10^6/uL (4.35-5.55); RED CELL DISTRIBUTION WIDTH 14.8 % (11.5-14.0); TOTAL CELLS COUNTED % (AUTO) 100 %; WHITE BLOOD COUNT 6.8 10^3/uL (4.0-10.5)
--- NOTE | 2019-10-04 21:19 | RADIOLOGY REPORT (SQ) ---
EXAM DESCRIPTION: XR CHEST 2 VIEWS COMPLETED DATE/TME: 10/04/2019 20:18 CLINICAL HISTORY: 64 years, Male, cp COMPARISON: Prior study from 09/28/2019 NUMBER OF VIEWS: 2 TECHNIQUE: Frontal and lateral radiograph are obtained LIMITATIONS: None. FINDINGS: Cardiac and mediastinal contours are stable. Surgical clips project over the right apex. Interstitial lines are suspected about the periphery of both lung bases. Additional bandlike opacity at the left lung base most likely corresponds to superimposed atelectasis or scar. No pleural effusion or pneumothorax. IMPRESSION: Interstitial lines about the periphery of both lung bases, potentially corresponding to mild interstitial edema. copyright 2010 [employer]- All Rights Reserved
[2019-10-04 21:20] LABS: ALKALINE PHOSPHATASE 60 U/L (38-126); ANION GAP 12 (5-19); ASPARTATE AMINO TRANSFERASE 22 U/L (17-59); BILIRUBIN,DIRECT 0.3 mg/dL (0.0-0.4); BILIRUBIN,TOTAL 0.3 mg/dL (0.2-1.3); BLOOD UREA NITROGEN 30 mg/dL (7-20); CALCIUM 9.3 mg/dL (8.4-10.2); CARBON DIOXIDE 29 mmol/L (22-30); CHLORIDE 98 mmol/L (98-107); GLUCOSE 87 mg/dL (75-110); POTASSIUM 3.9 mmol/L (3.6-5.0); TOTAL PROTEIN 7.9 g/dL (6.3-8.2)
--- NOTE | 2019-10-04 21:22 | ER Document Report ---
Doctor's Note Notes: 10/04/19 21:22 technical project manager advised at this time that the DVT study was negative for the patient.
--- NOTE | 2019-10-04 21:40 | ER Document Report ---
Doctor's Note Notes: 10/04/19 21:39 I was notified by lab at this time the patient's troponin was elevated. I alerted the triage nurses the patient is still awaiting, the charge nurse was notified and the patient will be direct bed at this time. Charge nurse will notify MD for intervention.
--- NOTE | 2019-10-04 21:48 | RADIOLOGY REPORT (SQ) ---
EXAM DESCRIPTION: US LOWER EXTREMITY VEINS UNILATERAL CLINICAL HISTORY: 64 years, Male, hx aka due to DVT, C/O Severe pain COMPARISON: None. FINDINGS: Duplex imaging of the deep venous system of the left lower extremity was performed with visualization from the common femoral vein to the mid to distal femoral vein. The patient is status post [id number] amputation. There is normal spontaneous, phasic flow, augmentation and compressibility without visualized thrombus. Patent great saphenous vein as imaged. IMPRESSION: No left lower extremity DVT.
[2019-10-04] MEDS ORDERED: FUROSEMIDE INJ/PF 40 MG/4 ML SDV IV ONE (23:01)
[2019-10-04] MEDS ORDERED: MORPHINE SULFATE 10 MG/ML INJ IV ONE (23:02)
--- NOTE | 2019-10-04 23:07 | ER Document Report ---
ED General - General Chief Complaint: Leg Pain Stated Complaint: CHEST PAIN Time Seen by Provider: 10/04/19 20:14 Primary Care Provider: OLIVER ARTHUR MD [Primary Care Provider] - Follow up as needed Mode of Arrival: Wheelchair TRAVEL OUTSIDE OF THE [place] IN LAST 30 DAYS: No - HPI Notes: Patient is a 64-year-old male with a history of ESRD on dialysis Friday and Friday, HIV, VTE on Coumadin, COPD, CAD, hypertension, CHF (EF 40%), right BKA and left AKA presents complaining of having shortness of breath with intermittent chest pain/tightness and left leg pain that began this afternoon around 2 PM. The pain does not radiate. He has not had any recent illness. He completed dialysis today fully. Patient is not normally on oxygen at home. He is able to eat and drink without difficulty. He is urinating normally and having normal bowel movements. Patient states that he has this leg pain chronically and intermittently and has pain medicine for it, but it was not helping today. Denies any headache, fever, neck pain, URI, sore throat, palpitations, syncope, cough, wheeze, abdominal pain, nausea/vomiting/diarrhea, urinary retention, dysuria, hematuria, or rash. - Related Data Allergies/Adverse Reactions: calcitriol Allergy (Verified 10/04/19 20:15) itching Past Medical History - Social History Smoking Status: Current Every Day Smoker Frequency of alcohol use: None Drug Abuse: None Family History: Reviewed & Not Pertinent, CAD, CVA, DM, Hyperlipidemia, Hypertension, Malignancy Patient has suicidal ideation: No Patient has homicidal ideation: No - Past Medical History Cardiac Medical History: Reports: Hx Congestive Heart Failure - EF is 40%, with moderate diastolic dysfunction, Hx Coronary Artery Disease, Hx DVT, Hx Heart Attack, Hx Hypercholesterolemia, Hx Hypertension, Hx Peripheral Vascular Disease, Hx Pulmonary Embolism Denies: Hx Atrial Fibrillation Pulmonary Medical History: Reports: Hx Bronchitis, Hx COPD, Hx Pneumonia, Hx Respiratory Failure Denies: Hx Asthma, Hx Sleep Apnea Neurological Medical History: Denies: Hx Migraine, Hx Seizures Endocrine Medical History: Reports: Hx Diabetes Mellitus Type 1 - insulin, Hx Diabetes Mellitus Type 2 - insulin dependent. Denies: Hx Hyperthyroidism, Hx Hypothyroidism Renal/ Medical History: Reports: Hx End Stage Renal Disease - Dialysis MWF with Dr. Pablo Lowe, Hx Hemodialysis, Hx Renal Insufficiency. Denies: Hx Peritoneal Dialysis GI Medical History: Reports: Hx Gastroesophageal Reflux Disease. Denies: Hx Cirrhosis, Hx Crohn's Disease, Hx Hepatitis, Hx Ulcerative Colitis Musculoskeletal Medical History: Reports Hx Arthritis, Denies Hx Fibromyalgia, 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 bilat AKA, Reports Hx Musculoskeletal Trauma Skin Medical History: Denies Hx Eczema, Denies Hx Psoriasis Psychiatric Medical History: Reports: Hx Depression Traumatic Medical History: Denies: Hx Traumatic Brain Injury Infectious Medical History: Reports: Hx HIV - noncompliant with meds. Denies: Hx Hepatitis Past Surgical History: Reports: Hx Orthopedic Surgery - bilateral amputation, R BKA, L AKA, Hx Vascular Surgery - left arm clot removed, IVC filter, thrombectomy 05/18/2018 left arm, Other - Tunnel graft right axillary femoral bypass, dialysis fistula LUE - Immunizations Immunizations up to date: Yes Hx Diphtheria, Pertussis, Tetanus Vaccination: Yes Hx Pneumococcal Vaccination: 07/21/10 Review of Systems - Review of Systems -: Yes All other systems reviewed and negative Physical Exam - Vital signs Vitals: Temp Pulse Resp BP Pulse Ox 98.0 F 18 L 16 178/89 H 96 10/04/19 20:15 10/04/19 20:15 10/04/19 20:15 10/04/19 20:15 10/04/19 20:15 - Notes Notes: PHYSICAL EXAMINATION: GENERAL: Well-appearing, well-nourished and in no acute distress. Speaking in shorter sentences. HEAD: Atraumatic, normocephalic. EYES: Pupils equal round and reactive to light, extraocular movements intact, s clera anicteric, conjunctiva are normal. ENT: Nares patent and without discharge. oropharynx clear without exudates. No tonsilar hypertrophy or erythema. Moist mucous membranes. NECK: Normal range of motion, supple without lymphadenopathy LUNGS: bibasilar rales noted. no retractions. HEART: Regular rate and rhythm without murmurs, rubs, gallops. ABDOMEN: Soft, nontender, nondistended abdomen. No guarding, no rebound. Normal bowel sounds present. No CVA tenderness bilaterally. Musculoskeletal: Rt BKA and Left AKA. No erythema, ecchymosis, swelling, or abscess noted. Extremities: No cyanosis, clubbing, or edema b/l. Peripheral pulses 2+. Capillary refill less than 3 seconds. NEUROLOGICAL: Cranial nerves grossly intact. Normal speech, normal gait. PSYCH: Normal mood, normal affect. SKIN: Warm, Dry, normal turgor, no rashes or lesions noted. Course - Re-evaluation Re-evalutation: 10/05/19 03:15 Upon attempting to discharge with recheck of his vitals, his BP elevated to 229/99. I did review with Dr. Sanchez and labetolol has been ordered. Pt is starting to feel more SOB so a neb treatment was given and 2 others ordered. Solumedrol ordered. Repeat CXR ordered. We may consider bipap if not responding appropriately to treatment. Labs/imaging otherwise at baseline. 10/05/19 04:53 Pt responded well to the breathing treatments and steroid. Repeat CXR unremarkable. We also tried a 2nd dose of labetolol at 20mg IV and his BP is still 209/105. Pt does continue to have intermittent left leg pain. I have reviewed this case with Dr. Sanchez and we have extinguished our options and will submit for admission for hypertensive urgency. 10/05/19 05:[address] Couch who knows Mr. Peraza fairly well. H/o substance abuse. He recommends clonidine 0.2mg and valium 5mg. If his BP improves to <190 systolic we will discharge. Dr. Sanchez also in agreement. If remaining high, we will re-consult for admission. 10/05/19 06:00 Call placed for consult again with hospitalist after review with Dr. Sanchez. Clonidine 0.2mg PO and valium 5mg IV given 35mins ago and his BP is increasing now to 215/107. 10/05/19 06:13 I did speak with Dr. Couch, believes this needs to go to ICU for Hypertensive emergency. I then spoke with ICU CHIEF WARDEN, Angelito Castillo, believes this is more hypertensive urgency as there is no evidence of other end-organ damage and his kidneys are chronic. He recommends Nitro drip starting at 20mcg and can increase to 60mcg with PRN pushes of hydralazine/labetolol with goal of 25% reduction. If he responds well at <=60mcg then he can be admitted to IMCU; otherwise, we may call ICU back. His highest BP here tonight was 246 systolic. I did take the last 4 BP checks and averaged them to create an average to use the 25% reduction. His average is 210/110 so the 25% reduction goal would be 157/82. We will also check with his morning home meds. Pt has no new concerns or complaints at this time. 10/05/19 06:53 Med recs performed. Nifedipine 90mg ER tab daily (ordered today) Clonidine 0.3 patch/24hr--patient had a dose recently Hydralazine 10mg daily--patient had a dose recently 10/05/19 07:20 BP is responding well on Nitro. Currently at 164/86 at 30mcg. BP now just reloaded and is 152 systolic so we will decrease to 25mcg on the drip. Call placed to hospitalist for admission. No new concerns or complaints. 10/05/19 07:42 I did speak with Dr. Ingram who accepted pt to obs/IMCU. - Vital Signs Vital signs: Temp Pulse Resp BP Pulse Ox 98.4 F 87 16 157/93 H 96 10/05/19 07:00 10/05/19 07:00 10/05/19 07:31 10/05/19 07:31 10/05/19 07:31 - Laboratory Result Diagrams: 10/04/19 20:44 10/04/19 20:44 Laboratory results interpreted by me: 10/04/19 10/04/19 10/04/19 20:44 20:44 20:44 RBC 3.79 L Hgb 12.3 L Hct 35.3 L RDW 14.8 H PT 25.3 H BUN 30 H Creatinine 6.05 H Est GFR ( Amer) 11 L Est GFR (MDRD) Non-Af 9 L NT-Pro-B Natriuret Pep 10/04/19 20:44 RBC Hgb Hct RDW PT BUN Creatinine Est GFR ( Amer) Est GFR (MDRD) Non-Af NT-Pro-B Natriuret Pep 70570 H Discharge - Discharge Clinical Impression: Hypertensive urgency Condition: Stable Disposition: ADMITTED OBSERVATION Admitting Provider: Nataly (Hospitalist) Unit Admitted: IMCU Referrals: OLIVER ARTHUR MD [Primary Care Provider] - Follow up as needed
[2019-10-04 23:14] LABS: INTERNATIONAL RATION (INR) 2.26; PROTHROMBIN TIME 25.3 SEC (11.4-15.4)
[2019-10-05] MEDS ORDERED: MORPHINE SULFATE 10 MG/ML INJ IV ONE ×2 (00:30→02:41)
[2019-10-05] MEDS ORDERED: HYDRALAZINE HCL INJ/PF 20 MG/1 ML SDV IV ONE ×2 (01:51→02:26)
[2019-10-05] MEDS ORDERED: IPRATROPIUM/ALBUTEROL 0.5-2.5 MG/3 ML AMPUL NEB ONE ×2 (02:22→02:53)
[2019-10-05] MEDS ORDERED: ALBUTEROL SULFATE HFA (90 MCG/PUFF) 8 GM MDI (1 MDI/ER DISP) IH ONE (02:23)
[2019-10-05] MEDS ORDERED: LABETALOL HCL INJ 20 MG/4 ML DISP.SYRIN IV ONE ×2 (03:10→03:54)
[2019-10-05] MEDS ORDERED: ALBUTEROL SULFATE 0.083% NEB 2.5 MG/3 ML AMPUL NEB ONE (03:14)
[2019-10-05] MEDS ORDERED: METHYLPREDNISOLONE INJ 125 MG/2 ML SDV IV ONE (03:16)
--- NOTE | 2019-10-05 03:53 | RADIOLOGY REPORT (SQ) ---
EXAM DESCRIPTION: XR CHEST 1 VIEW COMPLETED DATE/TME: 10/05/2019 03:14 CLINICAL HISTORY: 64 years, Male, sob COMPARISON: 10/04/2019 chest NUMBER OF VIEWS: 1 TECHNIQUE: Portable chest LIMITATIONS: None. FINDINGS: The heart size is normal. Atheromatous change thoracic aorta. Osteopenia. No pneumothorax. Underlying COPD. Equivocal/mild interstitial edema with blunting of the costophrenic angles bilaterally. IMPRESSION: Equivocal/mild interstitial edema with blunting of the costophrenic angles bilaterally, which may reflect tiny effusions and/or pleural thickening. Underlying COPD copyright 2011 [employer]- All Rights Reserved
[2019-10-05] MEDS ORDERED: CLONIDINE HCL 0.2 MG TABLET PO ONE (05:15)
[2019-10-05] MEDS ORDERED: DIAZEPAM INJ 10 MG/2 ML DISP.SYRIN IV ONE (05:16)
[2019-10-05] MEDS ORDERED: NITROGLYCERIN/D5W 50 MG/250 ML RTUINJ IV PRN ×2 (06:23→08:33)
[2019-10-05 06:38] LABS: URINE AMPHETAMINES SCREEN NEGATIVE; URINE BARBITURATES SCREEN NEGATIVE; URINE BENZODIAZEPINES SCREEN NEGATIVE; URINE COCAINE SCREEN NEGATIVE; URINE MARIJUANA (THC) SCREEN NEGATIVE; URINE METHADONE SCREEN NEGATIVE; URINE PHENCYCLIDINE SCREEN NEGATIVE
[2019-10-05] MEDS ORDERED: NIFEDIPINE 30 MG TAB.ER.24 PO ONE (06:51)
[2019-10-05] MEDS ORDERED: IPRATROPIUM/ALBUTEROL 0.5-2.5 MG/3 ML AMPUL NEB PRN (08:29)
[2019-10-05] MEDS ORDERED: ACETAMINOPHEN 325 MG TABLET PO PRN (08:29)
[2019-10-05] MEDS ORDERED: HYDRALAZINE HCL INJ/PF 20 MG/1 ML SDV IV PRN (08:45)
--- NOTE | 2019-10-05 08:59 | PDOC H&P ---
History of Present Illness Admission Date/PCP: 10/05/19 07:45 OLIVER ARTHUR MD Patient complains of: Chest pain, left leg pain History of Present Illness: KRISTY CANTU is a 64 year old male with a history of ESRD on dialysis MWF, HIV, VTE on Coumadin, COPD, CAD, right BKA, left AKA, who presents to the hospital with complaints of dyspnea and left stump pain which started yesterday afternoon after dialysis. Patient received a full 3.5 hour session of dialysis yesterday. Started feeling somewhat dyspneic afterwards and came to the hospital. In the hospital he is also started experiencing some chest tightness and was noted to be very hypertensive over 200s systolic. He was placed on a nitroglycerin drip after receiving multiple blood pressure medications including IV. Patient endorses that he has felt relief of the chest pain since being placed on the nitroglycerin drip. Regarding patient's left leg pain, he describes it as originating from his left stump site and going up his leg. Describes it as a squeezing shooting pain. Denies prior episodes. Denies trauma to the area. Denies aggravating or alleviating factors. States that the pain only lasts several seconds to a minute. Occurs intermittently since yesterday but very frequent. Past Medical History Cardiac Medical History: Reports: Congestive Heart Failure - EF is 40%, with moderate diastolic dysfunction, Coronary Artery Disease, DVT, Myocardial Infarction, Hyperlipidema, Hypertension, Peripheral Vascular Disease, Pulmonary Embolism Denies: Atrial Fibrillation Pulmonary Medical History: Reports: Bronchitis, Chronic Obstructive Pulmonary Disease (COPD), Pneumonia, Respiratory Failure Denies: Asthma, Sleep Apnea Neurological Medical History: Denies: Migraine, Seizures Endocrine Medical History: Denies: Hyperthyroidism, Hypothyroidism Renal/ Medical History: Reports: End Stage Renal Disease - Dialysis MWF with Dr. Pablo Lowe GI Medical History: Reports: Gastroesophageal Reflux Disease Denies: Cirrhosis, Crohn's Disease, Hepatitis, Ulcerative Colitis Musculoskeltal Medical History: Reports: Arthritis Denies: Fibromyalgia Skin Medical History: Denies: Eczema, Psoriasis Psychiatric Medical History: Reports: Depression Traumatic Medical History: Denies: Traumatic Brain Injury Hematology: Reports: Anemia, Bleeding Tendencies - Since being on warfarin Infectious Medical History: Reports: HIV - noncompliant with meds Past Surgical History Past Surgical History: Reports: Orthopedic Surgery - bilateral amputation, R BKA, L AKA, Vascular Surgery - left arm clot removed, IVC filter, thrombectomy 05/18/2018 left arm, Other - Tunnel graft right axillary femoral bypass, dialysis fistula LUE Social History Smoking Status: Current Every Day Smoker Frequency of Alcohol Use: None Hx Recreational Drug Use: Yes Drugs: Cocaine - Last used 9 months ago Hx Prescription Drug Abuse: No - Advance Directive Resuscitation Status: Full Code Family History Family History: CAD, CVA, DM, Hyperlipidemia, Hypertension, Malignancy Parental Family History Reviewed: Yes Children Family History Reviewed: NA Sibling(s) Family History Reviewed.: NA Medication/Allergy Home Medications: Abacavir Sulfate [Abacavir 300 mg Tablet] 600 mg PO DAILY 08/22/19 Carvedilol [Coreg] 25 mg PO Q12 08/22/19 Clonidine HCl [Catapres 0.2 mg Tablet] 0.2 mg PO Q8 08/22/19 Clonidine [Catapres-Tts 3 (0.3 mg/24 Hr) Transderm Patch] 0.3 mg TOP GUTIÉRREZ@1000 08/22/19 Dolutegravir Sodium [Tivicay] 50 mg PO DAILY 08/22/19 Doxazosin Mesylate [Cardura 4 mg Tablet] 4 mg PO QHS 08/22/19 Fluticasone Propionate [Flovent Hfa 110 Mcg Inhalation Aerosol 12 gm] 2 puff IH BID 08/22/19 Hydralazine HCl [Apresoline 10 mg Tablet] 10 mg PO Q12 08/22/19 Ipratropium/Albuterol Sulfate [Duoneb 3 ml Ampul] 3 ml NEB RTQID 08/22/19 Isosorbide Mononitrate [Isosorbide Mononitrate ER] 120 mg PO DAILY 08/22/19 Lamivudine [Epivir] 1 tsp PO DAILY 08/22/19 Nicotine [Nicoderm 21 mg/24 Hr Transderm Patch] 21 mg TOP DAILY 08/22/19 Nifedipine [Nifedipine ER] 90 mg PO DAILY 08/22/19 Calcium Acetate [Phoslo 667 mg Capsule] 667 mg PO MEALS 08/24/19 Warfarin Sodium 10 mg PO SUFRSA@2200 #0 08/26/19 Warfarin Sodium [Coumadin 4 mg Tablet] 8 mg PO MOTUWETH@2200 #0 08/26/19 Albuterol Sulfate [Ventolin Hfa 8 gm Mdi (1 Mdi/ER Disp)] 2 puff IH Q4H 10/05/19 Fluticasone Propionate [Flovent Hfa] 2 puff IH QAM 10/05/19 Furosemide [Lasix 80 mg Tablet] 80 mg PO BID 10/05/19 Allergies/Adverse Reactions: calcitriol Allergy (Verified 10/04/19 20:15) itching Review of Systems Constitutional: ABSENT: chills, fever(s) Eyes: ABSENT: visual disturbances Nose, Mouth, and Throat: PRESENT: headache(s) Cardiovascular: PRESENT: chest pain Respiratory: PRESENT: dyspnea Gastrointestinal: ABSENT: abdominal pain Integumentary: ABSENT: diaphoresis Neurological: ABSENT: confusion Psychiatric: ABSENT: anxiety Endocrine: PRESENT: other - makes urine. ABSENT: cold intolerance Hematologic/Lymphatic: ABSENT: lymphadenopathy Allergic/Immunologic: ABSENT: seasonal rhinorrhea Physical Exam Vital Signs: Temp Pulse Resp BP Pulse Ox 98.4 F 87 16 157/93 H 96 10/05/19 07:00 10/05/19 07:00 10/05/19 07:31 10/05/19 07:31 10/05/19 07:31 Intake & Output 10/04/19 10/05/19 10/06/19 06:59 06:59 06:59 Intake Total 2 9 Balance 2 9 Weight 68.039 kg General appearance: PRESENT: no acute distress, cooperative Head exam: ABSENT: normocephalic Eye exam: PRESENT: EOMI Mouth exam: PRESENT: neck supple Respiratory exam: PRESENT: clear to auscultation ramila, symmetrical, unlabored. ABSENT: tachypnea, wheezes Cardiovascular exam: PRESENT: RRR, +S1, +S2. ABSENT: tachycardia GI/Abdominal exam: PRESENT: normal bowel sounds, soft. ABSENT: rebound, rigid, tenderness Extremities exam: PRESENT: other - left aka stump site without any trauma, erythema, bruising or tenderness Musculoskeletal exam: PRESENT: ambulatory - with wheelchair Neurological exam: PRESENT: alert, awake, oriented to person, oriented to place, oriented to time Psychiatric exam: ABSENT: agitated, anxious Focused psych exam: ABSENT: pressured speech Results Laboratory Results: 10/04/19 20:44 10/04/19 20:44 10/04/19 10/04/19 20:44 20:44 WBC 6.8 RBC 3.79 L Hgb 12.3 L Hct 35.3 L MCV 93 MCH 32.5 MCHC 34.9 RDW 14.8 H Plt Count 183 Seg Neutrophils % 42.0 Sodium 138.7 Potassium 3.9 Chloride 98 Carbon Dioxide 29 Anion Gap 12 BUN 30 H Creatinine 6.05 H Est GFR ( Amer) 11 L Glucose 87 Calcium 9.3 Total Bilirubin 0.3 AST 22 Alkaline Phosphatase 60 Total Protein 7.9 Albumin 4.0 10/04/19 10/04/19 10/04/19 20:44 20:44 23:32 Troponin I 0.041 0.049 NT-Pro-B Natriuret Pep 59551 H Impressions: Venous Doppler Study 10/04/19 20:18 IMPRESSION: No left lower extremity DVT. Chest X-Ray 10/05/19 03:14 IMPRESSION: Equivocal/mild interstitial edema with blunting of the costophrenic angles bilaterally, which may reflect tiny effusions and/or pleural thickening. Underlying COPD copyright 2011 [employer]- All Rights Reserved Assessment and Plan - Diagnosis (1) Hypertensive emergency Is this a current diagnosis for this admission?: Yes Plan: Evidenced by shortness of breath, and chest pain with this significant hypertension Currently on a nitro drip after receiving clonidine p.o., nifedipine as well as IV BP meds Admit to IMCU Resume patient's home blood pressure medications and see if possible to titrate off nitroglycerin drip. Cardiac monitoring (2) Chest pain Qualifiers: Chest pain type: unspecified Qualified Code(s): R07.9 - Chest pain, uns pecified Is this a current diagnosis for this admission?: Yes Plan: Likely secondary to hypertensive emergency. Currently resolved after BP co ntrol. Troponin shows flat trend. No need to keep trending. Rest of plan as per problem #1. (3) Left leg pain Is this a current diagnosis for this admission?: Yes Plan: Likely neuropathic pain at site of left stump. Will start patient on gabapentin 300 mg daily. Muscle relaxants as needed. (4) Chronic kidney disease requiring chronic dialysis Is this a current diagnosis for this admission?: Yes Plan: Nephrology consulted. Continue regular dialysis schedule. Last dialysis was a full session on Friday. Renal diet. (5) HIV (human immunodeficiency virus infection) Qualifiers: HIV symptom status: unspecified Qualified Code(s): B20 - Human immunodeficiency virus [HIV] disease Is this a current diagnosis for this admission?: Yes Plan: Continue antivirals (6) History of venous thromboembolism Is this a current diagnosis for this admission?: Yes Plan: Continue patient's Coumadin regimen. Monitor INR. - Time Time Spent with patient: 35 or more minutes
[2019-10-05] MEDS ORDERED: (PENDING PHARMACY ID) (Dolutegravir Sodium [Tivicay] 50 MG) PO SCH (10:00)
[2019-10-05] MEDS ORDERED: LAMIVUDINE PO SCH (10:00)
[2019-10-05] MEDS ORDERED: ABACAVIR SULFATE 600 MG PO SCH (10:00)
[2019-10-05] MEDS: CYCLOBENZAPRINE HCL 10 MG TABLET PO PRN (10:37)
[2019-10-05] MEDS: GABAPENTIN 300 MG CAPSULE PO SCH (10:37)
[2019-10-05] MEDS: FLUTICASONE PROPIONATE HFA 110 MCG/PUFF 12 GM MDI IH SCH ×2 (11:04→17:51)
[2019-10-05] MEDS: NIFEDIPINE 30 MG TAB.ER.24 PO SCH ×2 (11:23→21:48)
[2019-10-05] MEDS: FUROSEMIDE 80 MG TABLET PO SCH ×2 (11:24→17:50)
[2019-10-05] MEDS: CALCIUM ACETATE 667 MG CAPSULE PO SCH ×2 (11:24→16:38)
[2019-10-05] MEDS: CARVEDILOL 12.5 MG TABLET PO SCH ×2 (11:25→21:49)
[2019-10-05] MEDS: HYDRALAZINE HCL 10 MG TABLET PO SCH ×2 (11:25→21:49)
[2019-10-05] MEDS: ISOSORBIDE MONONITRATE 60 MG TAB.ER.24H PO SCH (11:25)
[2019-10-05 11:30] LABS: HEMATOCRIT 35.2 % (37.9-51.0); HEMOGLOBIN 12.3 g/dL (13.5-17.0); MEAN CORPUSCULAR HEMOGLOBIN 32.3 pg (27.0-33.4); MEAN CORPUSCULAR HGB CONC 34.9 g/dL (32.0-36.0); MEAN CORPUSCULAR VOLUME 93 fl (80-97); PLATELET COUNT 190 10^3/uL (150-450); RED BLOOD COUNT 3.81 10^6/uL (4.35-5.55); RED CELL DISTRIBUTION WIDTH 14.7 % (11.5-14.0)
[2019-10-05] MEDS ORDERED: HEPARIN SOD (PORCINE) 5,000 UNIT/ML 1 ML VIAL SUBCUT SCH (14:00)
[2019-10-05] MEDS: CLONIDINE HCL 0.2 MG TABLET PO SCH ×2 (14:08→21:49)
[2019-10-05] MEDS: TRAMADOL HCL 50 MG TABLET PO PRN ×2 (14:20→21:56)
[2019-10-05] MEDS ORDERED: ONDANSETRON HCL INJ/PF 4 MG/2 ML SDV IV PRN (14:40)
[2019-10-05] MEDS: DOXAZOSIN MESYLATE 4 MG TABLET PO SCH (21:49)
[2019-10-05] MEDS: WARFARIN SODIUM 4 MG TABLET PO SCH (21:51)
[2019-10-05] MEDS ORDERED: (PENDING PHARMACY ID) (Warfarin Sodium 8 MG) PO SCH (22:00)
[2019-10-06] MEDS ORDERED: NORMAL SALINE 1000 ML 1,000 ML IV PRN (05:00)
[2019-10-06] MEDS: CLONIDINE HCL 0.2 MG TABLET PO SCH ×3 (05:37→21:28)
[2019-10-06 06:04] LABS: ABSOLUTE LYMPHOCYTES (AUTO) 3.3 10^3/uL (0.5-4.7); ABSOLUTE MONOCYTES (AUTO) 0.9 10^3/uL (0.1-1.4); ABSOLUTE NEUT (AUTO) 3.3 10^3/uL (1.7-8.2); BASOPHILS % (AUTO) 0.4 % (0-2); EOSINOPHILS % (AUTO) 0.6 % (0-6); HEMOGLOBIN 10.7 g/dL (13.5-17.0); LYMPHOCYTES % (AUTO) 43.1 % (13-45); MEAN CORPUSCULAR HEMOGLOBIN 32.5 pg (27.0-33.4); MEAN CORPUSCULAR HGB CONC 34.6 g/dL (32.0-36.0); MEAN CORPUSCULAR VOLUME 94 fl (80-97); MONOCYTES % (AUTO) 12.1 % (3-13); PLATELET COUNT 165 10^3/uL (150-450); RED BLOOD COUNT 3.29 10^6/uL (4.35-5.55); SEGMENTED NEUTROPHILS % (AUTO) 43.8 % (42-78); TOTAL CELLS COUNTED % (AUTO) 100 %; WHITE BLOOD COUNT 7.6 10^3/uL (4.0-10.5)
[2019-10-06 06:21] LABS: ANION GAP 18 (5-19); BLOOD UREA NITROGEN 58 mg/dL (7-20); CALCIUM 8.2 mg/dL (8.4-10.2); CARBON DIOXIDE 21 mmol/L (22-30); CHLORIDE 97 mmol/L (98-107); GLUCOSE 104 mg/dL (75-110); POTASSIUM 4.8 mmol/L (3.6-5.0)
[2019-10-06 06:27] LABS: INTERNATIONAL RATION (INR) 1.98; PROTHROMBIN TIME 22.8 SEC (11.4-15.4)
[2019-10-06] MEDS ORDERED: HYDROCODONE/ACETAMINOPHEN 5-325 MG TABLET PO ONE (09:29)
[2019-10-06] MEDS: CALCIUM ACETATE 667 MG CAPSULE PO SCH ×3 (09:47→17:34)
--- NOTE | 2019-10-06 10:31 | CDI QUERY ---
<JACK ELDRIDGE - Last Filed: 10/06/19 10:31> CDI Query CDI Review: Dear CAITIE, To better reflect your patients severity of illness, morbidity, and resource utilization Please LINK any condition to present on admission, if applicable. The terms probable, suspected, likely, possible or still to be ruled out may be used. If you agree, please add to the Progress Notes and Discharge Summary Query Clinical indicators ESRD ON DIALYSIS? OTHER? NOT APPLICABLE? history of ESRD on dialysis JOSE RIVERA DOCUMENTED: (4) Chronic kidney disease requiring chronic dialysis Is this a current diagnosis for this admission?: Yes Plan: Nephrology consulted. Continue regular dialysis schedule. Last dialysis was a full session on Friday. Renal diet. Thank you, JACK Clinical Documentation [facility] Office [phone] <AILYN BLOOD - Last Filed: 10/07/19 19:39> CDI Query Agree with Query: Yes
[2019-10-06] MEDS ORDERED: BISACODYL 5 MG TABEC PO PRN (10:48)
[2019-10-06] MEDS ORDERED: POLYETHYLENE GLYCOL 3350 POWDER 17 GM/1 PACKET PO PRN (10:48)
--- NOTE | 2019-10-06 10:48 | PDOC PROGRESS REPORT ---
Subjective Progress Note for:: 10/06/19 Subjective:: The patient is currently undergoing hemodialysis. His biggest complaint is sharp pain with cramping in the left stump. He said this previously was happening in the right stump but that has resolved. He has tried pain medications and muscle relaxants with limited relief. Reason For Visit: HYPERTENSIVE EMERGENCY,NEUROPATHY Physical Exam Vital Signs: Temp Pulse Resp BP Pulse Ox 98.2 F 71 16 137/73 H 91 L 10/06/19 03:14 10/06/19 07:00 10/06/19 03:14 10/06/19 03:14 10/06/19 03:14 Intake & Output 10/05/19 10/06/19 10/07/19 06:59 06:59 06:59 Intake Total 2 380 Output Total 125 Balance 2 255 Weight 68.039 kg 68.039 kg General appearance: PRESENT: cooperative, mild distress - Mild to moderate distress when he has the pain in his left stump., well-developed Head exam: PRESENT: atraumatic, normocephalic Eye exam: PRESENT: conjunctiva pink. ABSENT: scleral icterus Ear exam: PRESENT: normal external ear exam. ABSENT: bleeding, drainage Mouth exam: PRESENT: moist, tongue midline Neck exam: PRESENT: full ROM. ABSENT: carotid bruit, tenderness, tracheal deviation Respiratory exam: PRESENT: clear to auscultation ramila, symmetrical, unlabored. ABSENT: accessory muscle use, prolonged expiratory phas, rales, rhonchi, tachypnea, wheezes Cardiovascular exam: PRESENT: RRR, +S1, +S2 GI/Abdominal exam: PRESENT: normal bowel sounds, soft. ABSENT: distended, tenderness Rectal exam: PRESENT: deferred Gentrourinary exam: ABSENT: indwelling catheter Extremities exam: PRESENT: other - Bilateral amputations. Left AKA right BKA Musculoskeletal exam: ABSENT: ambulatory Neurological exam: PRESENT: alert, awake, oriented to person, oriented to place, oriented to time, oriented to situation, CN II-XII grossly intact. ABSENT: altered Psychiatric exam: PRESENT: flat affect. ABSENT: agitated, anxious Focused psych exam: ABSENT: delusional, restlessness Skin exam: PRESENT: dry, normal color, warm. ABSENT: rash Results Laboratory Results: 10/06/19 05:01 10/06/19 05:01 10/05/19 10/06/19 10/06/19 11:17 05:01 05:01 WBC 7.0 7.6 RBC 3.81 L 3.29 L Hgb 12.3 L 10.7 L Hct 35.2 L 31.0 L MCV 93 94 MCH 32.3 32.5 MCHC 34.9 34.6 RDW 14.7 H 15.0 H Plt Count 190 165 Seg Neutrophils % 43.8 Sodium 135.7 L Potassium 4.8 Chloride 97 L Carbon Dioxide 21 L Anion Gap 18 BUN 58 H Creatinine 9.23 H Est GFR ( Amer) 7 L Glucose 104 Calcium 8.2 L 10/04/19 10/04/19 10/04/19 20:44 20:44 23:32 Troponin I 0.041 0.049 NT-Pro-B Natriuret Pep 18212 H Impressions: Venous Doppler Study 10/04/19 20:18 IMPRESSION: No left lower extremity DVT. Chest X-Ray 10/05/19 03:14 IMPRESSION: Equivocal/mild interstitial edema with blunting of the costophrenic angles bilaterally, which may reflect tiny effusions and/or pleural thickening. Underlying COPD copyright 2011 [employer]- All Rights Reserved Assessment and Plan - Diagnosis (1) Hypertensive emergency Is this a current diagnosis for this admission?: Yes Plan: Evidenced by shortness of breath, and chest pain with this significant hypertension Currently on a nitro drip after receiving clonidine p.o., nifedipine as well as IV BP meds Admit to IMCU Resume patient's home blood pressure medications and see if possible to titrate off nitroglycerin drip. Cardiac monitoring 10/06/2019 Blood pressure is much improved and stable. Continue current regimen. Encourage medication compliance. (2) Chest pain Qualifiers: Chest pain type: unspecified Qualified Code(s): R07.9 - Chest pain, unspecified Is this a current diagnosis for this admission?: Yes Plan: Likely secondary to hypertensive emergency. Currently resolved after BP control. Troponin shows flat trend. No need to keep trending. Rest of plan as per problem #1. 10/06/2019 Secondary to hypertensive emergency. No acute coronary syndrome at this time. (3) Left leg pain Is this a current diagnosis for this admission?: Yes Plan: Likely neuropathic pain at site of left stump. Will start patient on gabapentin 300 mg daily. Muscle relaxants as needed. 10/06/2019 This is a sharp intermittent pain with possible spasm. I increased the gabapentin to 300 mg twice daily. Continue Flexeril for any muscle spasm component. Tramadol available for analgesia properties. (4) Chronic kidney disease requiring chronic dialysis Is this a current diagnosis for this admission?: Yes Plan: Nephrology consulted. Continue regular dialysis schedule. Last dialysis was a full session on Friday. Renal diet. 10/06/2019 The patient has a long history of kidney failure and is a chronic dialysis patient so his chronic kidney disease was present on admission. He is undergoing hemodialysis. I will discuss with nephrology regarding likely discharge. (5) HIV (human immunodeficiency virus infection) Qualifiers: HIV symptom status: unspecified Qualified Code(s): B20 - Human immunodeficiency virus [HIV] disease Is this a current diagnosis for this admission?: Yes Plan: Continue antivirals 10/06/2019 Continue current medication plan (6) History of venous thromboembolism Is this a current diagnosis for this admission?: Yes Plan: Continue patient's Coumadin regimen. Monitor INR. 10/06/19 Continue Warfarin. - Time Time Spent with patient: 15-24 minutes Medications reviewed and adjusted accordingly: Yes Anticipated discharge: Home
[2019-10-06] MEDS: CARVEDILOL 12.5 MG TABLET PO SCH ×2 (12:06→21:30)
[2019-10-06] MEDS: FUROSEMIDE 80 MG TABLET PO SCH ×2 (12:06→17:34)
[2019-10-06] MEDS: ISOSORBIDE MONONITRATE 60 MG TAB.ER.24H PO SCH (12:07)
[2019-10-06] MEDS: GABAPENTIN 300 MG CAPSULE PO SCH ×2 (12:07→21:33)
[2019-10-06] MEDS: HYDRALAZINE HCL 10 MG TABLET PO SCH ×2 (12:07→21:31)
[2019-10-06] MEDS: FLUTICASONE PROPIONATE HFA 110 MCG/PUFF 12 GM MDI IH SCH ×2 (12:07→17:34)
[2019-10-06] MEDS: NIFEDIPINE 30 MG TAB.ER.24 PO SCH ×2 (12:07→21:31)
[2019-10-06] MEDS: CYCLOBENZAPRINE HCL 10 MG TABLET PO PRN (15:49)
[2019-10-06] MEDS: DOCUSATE SODIUM 100 MG CAPSULE PO SCH (17:33)
[2019-10-06] MEDS: TRAMADOL HCL 50 MG TABLET PO PRN (17:34)
[2019-10-06] MEDS: DOXAZOSIN MESYLATE 4 MG TABLET PO SCH (21:28)
[2019-10-06] MEDS: WARFARIN SODIUM 4 MG TABLET PO SCH (21:35)
--- NOTE | 2019-10-06 22:56 | PDOC CONSULTATION ---
Consultation Consult Date: 10/06/19 Provider Consulted: KELLI MAYNARD Consult reason:: ESRD requiring HD History of Present Illness Admission Date/PCP: 10/05/19 08:29 OLIVER ARTHUR MD History of Present Illness: KRISTY CANTU is a 64-year-old -[place] gentleman known to me with histo ry of ESRD on maintenance hemodialysis on MWF, hypertension, HIV, venous thromboembolism on anticoagulation with warfarin, coronary artery disease, COPD, peripheral vascular disease with right AKA BKA and left AKA who was admitted yesterday because of left stump severe cramping and mild dyspnea post dialysis treatment. In the emergency room he also experienced some chest tightness with severely elevated blood pressure with systolic blood pressure in the 200s. He was started on nitroglycerin drip which is currently discontinued. Duplex of his left stump was done which was negative for acute DVT. Patient is currently being given pain medications and muscle relaxant. Today the patient said he is still experiences pain. I am seeing the patient during dialysis the morning. Aside from the pain on his left stump, he does not have any other complaints. Blood pressure is relatively low during this dialysis treatment. Be adjusted accordingly depending on his blood pressure. He is so far tolerating dialysis. Past Medical History Cardiac Medical History: Reports: CHF-Diastolic, Coronary Artery Disease, DVT, Hyperlipidemia, Hypertension-primary, Myocardial Infarction, Peripheral Vascular Disease, Pulmonary Embolism Pulmonary Medical History: Reports: Bronchitis, Chronic Obstructive Pulmonary Disease (COPD), Pneumonia, Respiratory Failure Neurological Medical History: Denies: Migraine, Seizures Endocrine Medical History: Reports: Diabetes Mellitus Type 2 - insulin dependent Renal/ Medical History: Reports: End Stage Renal Disease - Dialysis MWF with Dr. Pablo Lowe, Hyperphosphatemia, Metabolic Acidosis GI Medical History: Reports: Gastroesophageal Reflux Disease Musculoskeltal Medical History: Reports: Arthritis Skin Medical History: Denies: Eczema, Psoriasis Psychiatric Medical History: Reports: Depression Traumatic Medical History: Denies: Traumatic Brain Injury Infectious Medical History: Reports: HIV - noncompliant with meds Hematology Medical History: Reports Anemia of Chronic Kidney Disease Past Surgical History Past Surgical History: Reports: Dialysis Access Surgery AVF, Orthopedic Surgery - bilateral amputation, R BKA, L AKA, Vascular Surgery - left arm clot removed, IVC filter, thrombectomy 05/18/2018 left arm, Other - Tunnel graft right axillary femoral bypass, dialysis fistula LUE Social History Information Source: Patient, H Records Smoking Status: Current Every Day Smoker Electronic Cigarette use?: No Number of Years Smokin Frequency of Alcohol Use: None Hx Recreational Drug Use: Yes Drugs: Cocaine Hx Prescription Drug Abuse: No - Advance Directive Resuscitation Status: Full Code Family History Family History: End Stage Renal Disease - Brother Parental Family History Reviewed: Yes Children Family History Reviewed: Yes Sibling(s) Family History Reviewed.: Yes Medication/Allergy Home Medications: Abacavir Sulfate [Abacavir 300 mg Tablet] 600 mg PO DAILY 08/22/19 Carvedilol [Coreg] 25 mg PO Q12 08/22/19 Clonidine HCl [Catapres 0.2 mg Tablet] 0.2 mg PO Q8 08/22/19 Clonidine [Catapres-Tts 3 (0.3 mg/24 Hr) Transderm Patch] 0.3 mg TOP TU@1000 08/22/19 Dolutegravir Sodium [Tivicay] 50 mg PO DAILY 08/22/19 Doxazosin Mesylate [Cardura 4 mg Tablet] 4 mg PO QHS 08/22/19 Fluticasone Propionate [Flovent Hfa 110 Mcg Inhalation Aerosol 12 gm] 2 puff IH BID 08/22/19 Hydralazine HCl [Apresoline 10 mg Tablet] 10 mg PO Q12 08/22/19 Ipratropium/Albuterol Sulfate [Duoneb 3 ml Ampul] 3 ml NEB RTQID 08/22/19 Isosorbide Mononitrate [Isosorbide Mononitrate ER] 120 mg PO DAILY 08/22/19 Lamivudine [Epivir] 5 ml PO DAILY 08/22/19 Nicotine [Nicoderm 21 mg/24 Hr Transderm Patch] 21 mg TOP DAILY 08/22/19 Nifedipine [Nifedipine ER] 90 mg PO DAILY 08/22/19 Calcium Acetate [Phoslo 667 mg Capsule] 667 mg PO MEALS 08/24/19 Warfarin Sodium 10 mg PO SUFRSA@2200 #0 08/26/19 Warfarin Sodium [Coumadin 4 mg Tablet] 8 mg PO MOTUWETH@2200 #0 08/26/19 Albuterol Sulfate [Ventolin Hfa 8 gm Mdi (1 Mdi/ER Disp)] 2 puff IH Q4HP PRN 10/05/19 Furosemide [Lasix 80 mg Tablet] 80 mg PO BID 10/05/19 Oxycodone HCl/Acetaminophen [Percocet 10-325 Mg Tablet] 1 each PO Q6HP PRN 10/05/19 Allergies/Adverse Reactions: calcitriol Allergy (Verified 10/04/19 20:15) itching Review of Systems All systems: reviewed and no additional remarkable complaints except as stated Review of Systems: Constitutional: ABSENT: chills, fatigue, fever(s), headache(s), weight gain, weight loss Eyes: ABSENT: visual disturbances Ears: ABSENT: hearing changes Cardiovascular: ABSENT: Edema, orthropnea, palpitations; reports chest tightness and some dyspnea upon presentation in the emergency room yesterday Respiratory: ABSENT: cough, dyspnea, hemoptysis Gastrointestinal: ABSENT: abdominal pain, constipation, diarrhea, hematemesis, hematochezia, nausea, vomiting Genitourinary: ABSENT: dysuria, hematuria Musculoskeletal: ABSENT: joint swelling; left stump cramping and pain Integumentary: ABSENT: rash, wounds Neurological: ABSENT: abnormal gait, abnormal speech, confusion, dizziness, fo yanet weakness, numbness, syncope Psychiatric: ABSENT: anxiety, depression Endocrine: ABSENT: cold intolerance, heat intolerance, polydipsia, polyuria Hematologic/Lymphatic: ABSENT: easy bleeding, easy bruising, lymphadenopathy Physical Exam Vital Signs: Temp Pulse Resp BP Pulse Ox 98.2 F 71 16 137/73 H 91 L 10/06/19 03:14 10/06/19 07:00 10/06/19 03:14 10/06/19 03:14 10/06/19 03:14 Intake & Output 10/05/19 10/06/19 10/07/19 06:59 06:59 06:59 Intake Total 2 380 Output Total 125 Balance 2 255 Weight 68.039 kg 68.039 kg Vitals on dialysis: Blood pressure 112/56, heart rate of 67, blood flow rate of 400 mL/min and dialysate flow rate of 800 mL/min Exam: General appearance: No acute distress, cooperative, well-developed, well- nourished Head exam: PRESENT: atraumatic, normocephalic Eye exam: PRESENT: Conjunctiva [place], EOMI, PERRLA. ABSENT: conjunctival inj ection, scleral icterus Mouth exam: PRESENT: moist, neck supple, tongue midline Neck exam: PRESENT: full ROM. ABSENT: carotid bruit, JVD, lymphadenopathy, thyromegaly Respiratory exam: PRESENT: clear to auscultation bilaterally. ABSENT: rales, rhonchi, stridor, wheezes Cardiovascular exam: PRESENT: Irregularly irregular, +S1, +S2. ABSENT: systolic murmur Pulses: PRESENT: normal radial pulses, normal dorsalis pedis pulses GI/Abdominal exam: PRESENT: normal bowel sounds, soft. ABSENT: guarding, mass, tenderness Rectal exam: Deferred Extremities exam: PRESENT: full ROM. ABSENT: calf tenderness, pedal edema Musculoskeletal: PRESENT: full ROM. ABSENT: deformity Neurological exam: PRESENT: alert, Awake, Oriented to person, Oriented to place, Oriented to time, reflexes normal, CN II-XII grossly intact. ABSENT: motor sensory deficit Psychiatric exam: PRESENT: appropriate affect, normal mood. ABSENT: homicidal ideation, suicidal ideation Skin exam: PRESENT: intact, dry, warm. ABSENT: rash Results Laboratory Results: 10/06/19 05:01 10/06/19 05:01 10/05/19 10/06/19 10/06/19 11:17 05:01 05:01 WBC 7.0 7.6 RBC 3.81 L 3.29 L Hgb 12.3 L 10.7 L Hct 35.2 L 31.0 L MCV 93 94 MCH 32.3 32.5 MCHC 34.9 34.6 RDW 14.7 H 15.0 H Plt Count 190 165 Seg Neutrophils % 43.8 Sodium 135.7 L Potassium 4.8 Chloride 97 L Carbon Dioxide 21 L Anion Gap 18 BUN 58 H Creatinine 9.23 H Est GFR ( Amer) 7 L Glucose 104 Calcium 8.2 L 10/04/19 10/04/19 10/04/19 20:44 20:44 23:32 Troponin I 0.041 0.049 NT-Pro-B Natriuret Pep [id number] H Impressions: Venous Doppler Study 10/04/19 20:18 IMPRESSION: No left lower extremity DVT. Chest X-Ray 10/05/19 03:14 IMPRESSION: Equivocal/mild interstitial edema with blunting of the costophrenic angles bilaterally, which may reflect tiny effusions and/or pleural thickening. Underlying COPD copyright 2011 [employer]- All Rights Reserved Assessment & Plan - Diagnosis (1) End stage renal disease Is this a current diagnosis for this admission?: Yes Plan: We will do dialysis today for [3 hours, using the patient's AV fistula, with 2 potassium bath, blood flow rate of 400 mL per minute, dialysate flow rate of 800 mL per minute, ultrafiltration 2 to 3 L as tolerated, no heparin and no Procrit. Patient will be monitored throughout dialysis treatment. (2) Left leg pain Is this a current diagnosis for this admission?: Yes Plan: No DVT. Patient on Flexeril, gabapentin and tramadol. (3) Hypertension Qualifiers: Hypertension type: essential hypertension Qualified Code(s): I10 - Essential (primary) hypertension Is this a current diagnosis for this admission?: Yes Plan: Currently improved. Continue blood pressure medications. (4) Anemia in chronic kidney disease, on chronic dialysis Is this a current diagnosis for this admission?: Yes Plan: Retacrit on dialysis as needed. - Notes Notes: Thank you for the consult. We will continue to support dialysis while here in the hospital. - Time Time Spent: 50 to 70 Minutes
[2019-10-07 05:57] LABS: INTERNATIONAL RATION (INR) 1.89
[2019-10-07] MEDS: CLONIDINE HCL 0.2 MG TABLET PO SCH (06:16)
[2019-10-07] MEDS ORDERED: BISACODYL 5 MG TABEC PO ONE (06:48)
[2019-10-07] MEDS: CALCIUM ACETATE 667 MG CAPSULE PO SCH (08:49)
[2019-10-07] MEDS: DOCUSATE SODIUM 100 MG CAPSULE PO SCH (09:59)
[2019-10-07] MEDS: FLUTICASONE PROPIONATE HFA 110 MCG/PUFF 12 GM MDI IH SCH (10:00)
[2019-10-07] MEDS: CARVEDILOL 12.5 MG TABLET PO SCH (10:09)
[2019-10-07] MEDS: FUROSEMIDE 80 MG TABLET PO SCH (10:09)
[2019-10-07] MEDS: ISOSORBIDE MONONITRATE 60 MG TAB.ER.24H PO SCH (10:09)
[2019-10-07] MEDS: HYDRALAZINE HCL 10 MG TABLET PO SCH (10:09)
[2019-10-07] MEDS: GABAPENTIN 300 MG CAPSULE PO SCH (10:10)
[2019-10-07] MEDS: NIFEDIPINE 30 MG TAB.ER.24 PO SCH (10:10)
[2019-10-07 11:47] VITALS: BP 170/86
[2019-10-07] MEDS ORDERED: ACETAMINOPHEN 325 MG TABLET PO PRN (12:16)
--- NOTE | 2019-10-07 12:27 | PDOC DISCHARGE SUMMARY ---
Impression - Admit/DC Date/PCP Admission Date/Primary Care Provider: 10/05/19 08:29 OLIVER ARTHUR MD Discharge Date: 10/07/19 - Discharge Diagnosis (1) Hypertensive emergency Is this a current diagnosis for this admission?: Yes (2) Chest pain Is this a current diagnosis for this admission?: Yes (3) Left leg pain Is this a current diagnosis for this admission?: Yes (4) Chronic kidney disease requiring chronic dialysis Is this a current diagnosis for this admission?: Yes (5) HIV (human immunodeficiency virus infection) Is this a current diagnosis for this admission?: Yes (6) History of venous thromboembolism Is this a current diagnosis for this admission?: Yes - Additional Information Resuscitation Status: Full Code Referrals: OLIVER ARTHUR MD [Primary Care Provider] - Follow up as needed (Left message for someone to call with appointment.) Prescriptions: Gabapentin [Neurontin 300 mg Capsule] 300 mg PO DAILY 30 Days #30 capsule Home Medications: Abacavir Sulfate [Abacavir 300 mg Tablet] 600 mg PO DAILY 08/22/19 Carvedilol [Coreg] 25 mg PO Q12 08/22/19 Clonidine HCl [Catapres 0.2 mg Tablet] 0.2 mg PO Q8 08/22/19 Clonidine [Catapres-Tts 3 (0.3 mg/24 Hr) Transderm Patch] 0.3 mg TOP TU@1000 08/22/19 Dolutegravir Sodium [Tivicay] 50 mg PO DAILY 08/22/19 Doxazosin Mesylate [Cardura 4 mg Tablet] 4 mg PO QHS 08/22/19 Fluticasone Propionate [Flovent Hfa 110 Mcg Inhalation Aerosol 12 gm] 2 puff IH BID 08/22/19 Hydralazine HCl [Apresoline 10 mg Tablet] 10 mg PO Q12 08/22/19 Ipratropium/Albuterol Sulfate [Duoneb 3 ml Ampul] 3 ml NEB RTQID 08/22/19 Isosorbide Mononitrate [Isosorbide Mononitrate ER] 120 mg PO DAILY 08/22/19 Lamivudine [Epivir] 5 ml PO DAILY 08/22/19 Nicotine [Nicoderm 21 mg/24 Hr Transderm Patch] 21 mg TOP DAILY 08/22/19 Nifedipine [Nifedipine ER] 90 mg PO DAILY 08/22/19 Calcium Acetate [Phoslo 667 mg Capsule] 667 mg PO MEALS 08/24/19 Warfarin Sodium 10 mg PO SUFRSA@2200 #0 08/26/19 Warfarin Sodium [Coumadin 4 mg Tablet] 8 mg PO MOTUWETH@2200 #0 08/26/19 Albuterol Sulfate [Ventolin Hfa 8 gm Mdi (1 Mdi/ER Disp)] 2 puff IH Q4HP PRN 10/05/19 Furosemide [Lasix 80 mg Tablet] 80 mg PO BID 10/05/19 Oxycodone HCl/Acetaminophen [Percocet 10-325 mg Tablet] 1 each PO Q6HP PRN 10/05/19 Gabapentin [Neurontin 300 mg Capsule] 300 mg PO DAILY 30 Days #30 capsule 10/07/19 History of Present Illiness History of Present Illness: KRISTY CANTU is a 64 year old male with a history of ESRD on dialysis MWF, HIV, VTE on Coumadin, COPD, CAD, right BKA, left AKA, who presents to the hospital with complaints of dyspnea and left stump pain which started yesterday afternoon after dialysis. Patient received a full 3.5 hour session of dialysis yesterday. Started feeling somewhat dyspneic afterwards and came to the hospital. In the hospital he is also started experiencing some chest tightness and was noted to be very hypertensive over 200s systolic. He was placed on a nitroglycerin drip after receiving multiple blood pressure medications including IV. Patient endorses that he has felt relief of the chest pain since being placed on the nitroglycerin drip. Regarding patient's left leg pain, he describes it as originating from his left stump site and going up his leg. Describes it as a squeezing shooting pain. Denies prior episodes. Denies trauma to the area. Denies aggravating or alleviating factors. States that the pain only lasts several seconds to a minute. Occurs intermittently since yesterday but very frequent. Hospital Course Hospital Course: (1) Hypertensive emergency Moderate improvement. Evidenced by shortness of breath, and chest pain with this significant hypertension Currently on a nitro drip after receiving clonidine p.o., nifedipine as well as IV BP meds Admited to [facility] Resume patient's home blood pressure medications and see if possible to titrate off nitroglycerin drip. Cardiac monitoring (2) Chest pain Resolved. Likely secondary to hypertensive emergency. Currently resolved after BP control. Troponin shows flat trend. No need to keep trending. Rest of plan as per problem #1. (3) Left leg pain Likely neuropathic pain at site of left stump. Will start patient on gabapentin 300 mg daily. Muscle relaxants as needed. Encreased the gabapentin to 300 mg twice daily. Continue Flexeril for any muscle spasm component. Tramadol available for analgesia properties. (4) Chronic kidney disease requiring chronic dialysis History of end-stage renal disease on hemodialysis Friday. Neurology consulted. Received hemodialysis while inpatient. Started on renal diet. Outpatient PCP and nephrology follow-up recommended. (5) HIV (human immunodeficiency virus infection) Outpatient PCP and ID follow-up recommended. (6) History of venous thromboembolism Continue patient's Coumadin regimen. Monitored INR. Continued Warfarin. Physical Exam Vital Signs: Temp Pulse Resp BP Pulse Ox 98.4 F 75 16 170/86 H 92 10/07/19 11:46 10/07/19 11:46 10/07/19 11:46 10/07/19 11:46 10/07/19 11:46 Intake & Output 10/06/19 10/07/19 10/08/19 06:59 06:59 06:59 Intake Total 380 940 Output Total 125 3075 Balance 255 -2135 Weight 68.039 kg 76.5 kg General appearance: PRESENT: no acute distress, well-developed, well-nourished Head exam: PRESENT: atraumatic, normocephalic Respiratory exam: PRESENT: clear to auscultation ramila. ABSENT: rales, rhonchi, wheezes Cardiovascular exam: PRESENT: RRR. ABSENT: diastolic murmur, rubs, systolic murmur Neurological exam: PRESENT: alert, awake, oriented to person, oriented to place, oriented to time, oriented to situation, CN II-XII grossly intact. ABSENT: m otor sensory deficit Results Laboratory Results: WBC 7.6 10^3/uL (4.0-10.5) 10/06/19 05:01 RBC 3.29 10^6/uL (4.35-5.55) L 10/06/19 05:01 Hgb 10.7 g/dL (13.5-17.0) L 10/06/19 05:01 Hct 31.0 % (37.9-51.0) L 10/06/19 05:01 MCV 94 fl (80-97) 10/06/19 05:01 MCH 32.5 pg (27.0-33.4) 10/06/19 05:01 MCHC 34.6 g/dL (32.0-36.0) 10/06/19 05:01 RDW 15.0 % (11.5-14.0) H 10/06/19 05:01 Plt Count 165 10^3/uL (150-450) 10/06/19 05:01 Lymph % (Auto) 43.1 % (13-45) 10/06/19 05:01 [place] % (Auto) 12.1 % (3-13) 10/06/19 05:01 Eos % (Auto) 0.6 % (0-6) 10/06/19 05:01 Baso % (Auto) 0.4 % (0-2) 10/06/19 05:01 Absolute Neuts (auto) 3.3 10^3/uL (1.7-8.2) 10/06/19 05:01 Absolute Lymphs (auto) 3.3 10^3/uL (0.5-4.7) 10/06/19 05:01 Absolute Monos (auto) 0.9 10^3/uL (0.1-1.4) 10/06/19 05:01 Absolute Eos (auto) 0.0 10^3/uL (0.0-0.6) 10/06/19 05:01 Absolute Basos (auto) 0.0 10^3/uL (0.0-0.2) 10/06/19 05:01 Seg Neutrophils % 43.8 % (42-78) 10/06/19 05:01 PT 22.0 SEC (11.4-15.4) H 10/07/19 05:20 INR 1.89 10/07/19 05:20 Sodium 135.7 mmol/L (137-145) L 10/06/19 05:01 Potassium 4.8 mmol/L (3.6-5.0) 10/06/19 05:01 Chloride 97 mmol/L (98-107) L 10/06/19 05:01 Carbon Dioxide 21 mmol/L (22-30) L 10/06/19 05:01 Anion Gap 18 (5-19) 10/06/19 05:01 BUN 58 mg/dL (7-20) H 10/06/19 05:01 Creatinine 9.23 mg/dL (0.52-1.25) H 10/06/19 05:01 Est GFR ( Amer) 7 (>60) L 10/06/19 05:01 Est GFR (MDRD) Non-Af 6 (>60) L 10/06/19 05:01 Glucose 104 mg/dL (75-110) 10/06/19 05:01 Calcium 8.2 mg/dL (8.4-10.2) L 10/06/19 05:01 Total Bilirubin 0.3 mg/dL (0.2-1.3) 10/04/19 20:44 Direct Bilirubin 0.3 mg/dL (0.0-0.4) 10/04/19 20:44 Neonat Total Bilirubin Not Reportable 10/04/19 20:44 Neonat Direct Bilirubin Not Reportable 10/04/19 20:44 Neonat Indirect Bili Not Reportable 10/04/19 20:44 AST 22 U/L (17-59) 10/04/19 20:44 ALT 17 U/L (<50) 10/04/19 20:44 Alkaline Phosphatase 60 U/L (38-126) 10/04/19 20:44 Troponin I 0.049 ng/mL 10/04/19 23:32 NT-Pro-B Natriuret Pep 34089 pg/mL (<125) H 10/04/19 20:44 Total Protein 7.9 g/dL (6.3-8.2) 10/04/19 20:44 Albumin 4.0 g/dL (3.5-5.0) 10/04/19 20:44 Urine Opiates Screen NEGATIVE 10/05/19 06:09 Urine Methadone Screen NEGATIVE 10/05/19 06:09 Ur Barbiturates Screen NEGATIVE 10/05/19 06:09 Ur Phencyclidine Scrn NEGATIVE 10/05/19 06:09 Ur Amphetamines Screen NEGATIVE 10/05/19 06:09 U Benzodiazepines Scrn NEGATIVE 10/05/19 06:09 Urine Cocaine Screen NEGATIVE 10/05/19 06:09 U Marijuana (THC) Screen NEGATIVE 10/05/19 06:09 10/04/19 10/04/19 10/04/19 20:44 20:44 23:32 Troponin I 0.041 0.049 NT-Pro-B Natriuret Pep 28802 H Impressions: Chest X-Ray 10/04/19 20:18 IMPRESSION: Interstitial lines about the periphery of both lung bases, potentially corresponding to mild interstitial edema. copyright 2010 [employer] All Rights Reserved Venous Doppler Study 10/04/19 20:18 IMPRESSION: No left lower extremity DVT. Chest X-Ray 10/05/19 03:14 IMPRESSION: Equivocal/mild interstitial edema with blunting of the costophrenic angles bilaterally, which may reflect tiny effusions and/or pleural thickening. Underlying COPD copyright 2010 [employer] All Rights Reserved Plan Time Spent: Greater than 30 Minutes Stroke Is this a Stroke Patient?: No Acute Heart Failure - Is this a Heart Failure Patient?: No
[2019-10-07] MEDS: CYCLOBENZAPRINE HCL 10 MG TABLET PO PRN (12:29)
[2019-10-08] MEDS ORDERED: GABAPENTIN 300 MG CAPSULE PO SCH (10:00)
[2019-10-08] MEDS ORDERED: WARFARIN SODIUM 5 MG TABLET PO SCH (22:00)
[2019-10-08] MEDS ORDERED: WARFARIN SODIUM 10 MG PO SCH (22:00)
[2019-10-10] MEDS ORDERED: CLONIDINE 0.3 MG/24 HR PATCH.TDWK TOP SCH (10:00)
== END 2019-10-07 12:33 | disposition home or self-care (01) | DRG 304 ==
LOC: ER 19:32 → EH 10-05 07:45 → OBSVTOIN 10-05 08:29 → 3S 10-05 09:32
PROVIDERS: ADMIT Internal Medicine; ATTEND Hospitalist
PROC: 5A1D70Z Performance of Urinary Filtration, Intermittent, Less than 6 Hours Per Day (ICD-10-PCS; principal; 2019-10-06)
DX: I16.1 Hypertensive emergency (principal); N18.6 End stage renal disease; I50.32 Chronic diastolic (congestive) heart failure; B20 Human immunodeficiency virus [HIV] disease; I13.2 Hypertensive heart and chronic kidney disease with heart failure and with stage 5 chronic kidney disease, or end stage renal disease; E11.22 Type 2 diabetes mellitus with diabetic chronic kidney disease; J44.9 Chronic obstructive pulmonary disease, unspecified; I25.10 Atherosclerotic heart disease of native coronary artery without angina pectoris; F17.210 Nicotine dependence, cigarettes, uncomplicated; K21.9 Gastro-esophageal reflux disease without esophagitis; T87.89 Other complications of amputation stump; G54.6 Phantom limb syndrome with pain; E78.5 Hyperlipidemia, unspecified; M19.90 Unspecified osteoarthritis, unspecified site; Z99.2 Dependence on renal dialysis; Z79.4 Long term (current) use of insulin; Z89.511 Acquired absence of right leg below knee; Z89.612 Acquired absence of left leg above knee; Z79.02 Long term (current) use of antithrombotics/antiplatelets; Z86.718 Personal history of other venous thrombosis and embolism; Z86.711 Personal history of pulmonary embolism; Z91.14 Patient's other noncompliance with medication regimen; Z79.01 Long term (current) use of anticoagulants; Z79.899 Other long term (current) drug therapy; Z79.51 Long term (current) use of inhaled steroids; I25.2 Old myocardial infarction
CPT/HCPCS: 36415; 71045; 71046; 80048; 80053; 80307; 83880; 84484; 85025; 85027; 85610; 93971; 94640; 96365; 96372; 96375; 96376; 99285; J0360; J1644; J1940; J2270; J2405; J2930; J3360; J3490; J7620

== ENCOUNTER 2019-10-19 22:10 | Observation (INO) | payer MEDICARE, MEDICAID ==
[2019-10-19 22:37] LABS: ABSOLUTE BASOPHILS # (AUTO) 0.1 10^3/uL (0.0-0.2); ABSOLUTE EOSINOPHILS # (AUTO) 0.4 10^3/uL (0.0-0.6); ABSOLUTE LYMPHOCYTES (AUTO) 3.5 10^3/uL (0.5-4.7); ABSOLUTE MONOCYTES (AUTO) 0.9 10^3/uL (0.1-1.4); ABSOLUTE NEUT (AUTO) 3.4 10^3/uL (1.7-8.2); BASOPHILS % (AUTO) 0.7 % (0-2); EOSINOPHILS % (AUTO) 4.4 % (0-6); HEMATOCRIT 35.4 % (37.9-51.0); HEMOGLOBIN 12.1 g/dL (13.5-17.0); LYMPHOCYTES % (AUTO) 42.7 % (13-45); MEAN CORPUSCULAR HEMOGLOBIN 32.3 pg (27.0-33.4); MEAN CORPUSCULAR HGB CONC 34.2 g/dL (32.0-36.0); MEAN CORPUSCULAR VOLUME 94 fl (80-97); MONOCYTES % (AUTO) 10.6 % (3-13); PLATELET COUNT 213 10^3/uL (150-450); RED BLOOD COUNT 3.76 10^6/uL (4.35-5.55); SEGMENTED NEUTROPHILS % (AUTO) 41.6 % (42-78); TOTAL CELLS COUNTED % (AUTO) 100 %; WHITE BLOOD COUNT 8.2 10^3/uL (4.0-10.5)
[2019-10-19 22:41] LABS: VENOUS BLOOD BASE EXCESS 0.9 mmol/L; VENOUS BLOOD PCO2 43.2 mmHg (35-63); VENOUS BLOOD PH 7.4 (7.30-7.42)
[2019-10-19 22:52] LABS: ALKALINE PHOSPHATASE 69 U/L (38-126); ANION GAP 13 (5-19); ASPARTATE AMINO TRANSFERASE 42 U/L (17-59); BILIRUBIN,DIRECT 0.4 mg/dL (0.0-0.4); BILIRUBIN,TOTAL 0.4 mg/dL (0.2-1.3); BLOOD UREA NITROGEN 50 mg/dL (7-20); CALCIUM 10.4 mg/dL (8.4-10.2); CARBON DIOXIDE 26 mmol/L (22-30); CHLORIDE 100 mmol/L (98-107); GLUCOSE 88 mg/dL (75-110); POTASSIUM 5.6 mmol/L (3.6-5.0); TOTAL PROTEIN 7.6 g/dL (6.3-8.2)
--- NOTE | 2019-10-19 22:58 | RADIOLOGY REPORT (SQ) ---
EXAM DESCRIPTION: X-RAY CHEST ONE VIEW CLINICAL HISTORY: 64 years Male SOB COMPARISON: 10/05/2019 TECHNIQUE: Portable upright chest at 2229 hours on 10/19/2019. FINDINGS: EKG leads overlie the chest. The lungs are slightly overinflated. There is again mild scarring in the projection of the lingula. The left costophrenic angle is no longer blunted. There is again probable slight chronic blunting of the right costophrenic angle. There are emphysematous changes in the upper lobes, most noticeable in the right upper lobe. Mild cardiomegaly with normal pulmonary vascularity. The aorta is calcified. Old fracture deformity of the left mid clavicle. No acute bony abnormalities are seen. IMPRESSION: COPD. Mild cardiomegaly. No active cardiopulmonary lesions.
--- NOTE | 2019-10-20 00:02 | ER Document Report ---
ED General - General Chief Complaint: Shortness Of Breath Stated Complaint: CHEST TIGHTNESS Time Seen by Provider: 10/19/19 23:32 Notes: Patient is a 64-year-old male that comes emergency department by EMS for chief complaint of an episode just prior to arrival where he states he felt tight in his chest, he felt like he could not breathe, he states he started sweating. He also states that he has been having pains in his left arm and left leg but these are not new and he was just discharged on gabapentin for these. He was admitted here on 10/02 until 10/07/2019 for hypertensive emergency and neuropathy. He states he saw his primary care today and he also had dialysis today for the full 3+ hours. Patient denies fever, he does report cough, he continues to smoke, he received nitroglycerin without significant change, he did receive a DuoNeb treatment in route and states he did improve some with this. He reports a current headache as well and is requesting pain medication. 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 His aircraft instrument repairer is Dr. Storm and his clay artist is Dr. Lowe. TRAVEL OUTSIDE OF THE [place] IN LAST 30 DAYS: No - Related Data Allergies/Adverse Reactions: calcitriol Allergy (Verified 10/04/19 20:15) itching Past Medical History - General Information source: Patient - Social History Smoking Status: Current Every Day Smoker Smoking Education Provided: Yes - <3 min Frequency of alcohol use: None Drug Abuse: Cocaine Lives with: Alone Family History: CAD, CVA, DM, Hyperlipidemia, Hypertension, Malignancy Patient has suicidal ideation: No Patient has homicidal ideation: No - Past Medical History Cardiac Medical History: Reports: Hx Congestive Heart Failure - EF is 40%, with moderate diastolic dysfunction, Hx Coronary Artery Disease, Hx DVT, Hx Heart Attack, Hx Hypercholesterolemia, Hx Hypertension, Hx Peripheral Vascular Disease, Hx Pulmonary Embolism Denies: Hx Atrial Fibrillation Pulmonary Medical History: Reports: Hx Bronchitis, Hx COPD, Hx Pneumonia, Hx Respiratory Failure Denies: Hx Asthma, Hx Sleep Apnea Neurological Medical History: Denies: Hx Migraine, Hx Seizures Endocrine Medical History: Reports: Hx Diabetes Mellitus Type 1 - insulin, Hx Diabetes Mellitus Type 2 - insulin dependent. Denies: Hx Hyperthyroidism, Hx Hypothyroidism Renal/ Medical History: Reports: Hx End Stage Renal Disease - Dialysis MWF with Dr. Pablo Lowe, Hx Hemodialysis, Hx Renal Insufficiency. Denies: Hx Peritoneal Dialysis GI Medical History: Reports: Hx Gastroesophageal Reflux Disease. Denies: Hx Cirrhosis, Hx Crohn's Disease, Hx Hepatitis, Hx Ulcerative Colitis Musculoskeletal Medical History: Reports Hx Arthritis, Denies Hx Fibromyalgia, 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 bilat AKA, Reports Hx Musculoskeletal Trauma Skin Medical History: Denies Hx Eczema, Denies Hx Psoriasis Psychiatric Medical History: Reports: Hx Depression Traumatic Medical History: Denies: Hx Traumatic Brain Injury Infectious Medical History: Reports: Hx HIV - noncompliant with meds. Denies: Hx Hepatitis Past Surgical History: Reports: Hx Orthopedic Surgery - bilateral amputation, R BKA, L AKA, Hx Vascular Surgery - left arm clot removed, IVC filter, thrombectomy 05/18/2018 left arm, Other - Tunnel graft right axillary femoral bypass, dialysis fistula LUE - Immunizations Immunizations up to date: Yes Hx Diphtheria, Pertussis, Tetanus Vaccination: Yes Hx Pneumococcal Vaccination: 07/21/10 Review of Systems - Review of Systems Constitutional: No symptoms reported EENT: No symptoms reported Cardiovascular: See HPI Respiratory: See HPI Gastrointestinal: No symptoms reported Genitourinary: No symptoms reported Male Genitourinary: No symptoms reported Musculoskeletal: No symptoms reported Skin: No symptoms reported Hematologic/Lymphatic: No symptoms reported Neurological/Psychological: No symptoms reported Physical Exam - Vital signs Vitals: Temp 98.8 F 10/19/19 22:15 - Notes Notes: GENERAL: Alert, interacts well. No acute distress. HEAD: Normocephalic, atraumatic. EYES: Pupils equal, round, and reactive to light. Extraocular movements intact. ENT: Oral mucosa moist, tongue midline. Oropharynx unremarkable. Airway patent. NECK: Full range of motion. Supple. Trachea midline. No lymphadenopathy. LUNGS: Decreased bilaterally but no wheezing, rales, rhonchi noted HEART: Regular rate and rhythm. No murmur ABDOMEN: Soft, non-tender. Non-distended. EXTREMITIES: Upper extremities unremarkable with left forearm dialysis port access. Right BKA, left AKA. BACK: no cervical, thoracic, lumbar midline tenderness. No saddle anesthesia, normal distal neurovascular exam. NEUROLOGICAL: Alert and oriented x3. Normal speech. Cranial nerves II through XII grossly intact. PSYCH: Normal affect, normal mood. SKIN: Warm, dry, normal turgor. No rashes or lesions noted. Course - Re-evaluation Re-evalutation: Patient does not appear to be in distress although he is still complaining of intermittent chest tightness. He is very hypertensive at 190s over 100s. I do hear some rales on the right lower lung base but he is not in respiratory distress. He cannot lie flat. He denies any other complaints, has no other concerning findings on physical exam. CBC unremarkable, chemistry shows borderline high potassium at 5.6, nonspecific otherwise. Troponin is indeterminate and approximately patient's baseline. EKG without significant change from prior but does show some peaked T waves similar to prior. Chest x-ray without overt abnormality. Patient discussed with Dr. Guzman. He did evaluate the patient at bedside. He recommends pain management at this time to treat headache and elevated blood pressure after he has initially received nitroglycerin, treatment of potassium with dextrose and insulin, discussion with nephrology, and admission to the hospitalist. 10/20/19 01:05 Called package lift operator, requested speech endocrinology, Dr. Renteria is construction coordinator but the patient see Dr. Lowe, they recommended I speak to Dr. Lowe and have paged him. Still waiting callback, patient reevaluated, he has no current symptoms, blood pressure is improved at 170/98, he is well-appearing. 10/20/19 01:52 Patient started getting diaphoretic, blood glucose rechecked and 32, patient had been given insulin and dextrose, patient was given additional dextrose, now he has been given orange juice, he will be eating peanut butter crackers as well, we will recheck Accu-Chek shortly. Patient remains alert and responsive. After additional dextrose was given he states he has no complaints. He is much improved in appearance. I have spoken to Dr. Renteria, nephrology, she states that patient can be dialyzed in the morning. I spoke to Dr. Marin, patient admitted to telemetry observation. - Vital Signs Vital signs: Temp Pulse Resp BP Pulse Ox 98.5 F 19 170/98 H 95 10/20/19 02:40 10/20/19 01:01 10/20/19 01:01 10/20/19 01:01 - Laboratory Result Diagrams: 10/19/19 22:16 10/19/19 22:16 Laboratory results interpreted by me: 10/19/19 10/19/19 10/19/19 22:16 22:16 22:16 RBC 3.76 L Hgb 12.1 L Hct 35.4 L RDW 15.0 H Seg Neutrophils % 41.6 L PT 28.4 H Potassium 5.6 H BUN 50 H Creatinine 8.32 H Est GFR ( Amer) 8 L Est GFR (MDRD) Non-Af 6 L POC Glucose Calcium 10.4 H 10/20/19 10/20/19 01:48 02:33 RBC Hgb Hct RDW Seg Neutrophils % PT Potassium BUN Creatinine Est GFR ( Amer) Est GFR (MDRD) Non-Af POC Glucose 32 L* 139 H Calcium - EKG Interpretation by Me Additional EKG results interpreted by me: EKG shows sinus tachycardia at a rate of 100, QT C of 465, left ventricular hypertrophy. No definite bundle branch block. No T wave inversions or ST segment changes in consecutive leads. Slightly peaked T waves anteriorly but no significant change from prior EKG. Discharge - Discharge Clinical Impression: Hyperkalemia, Shortness of breath, Uncontrolled hypertension Chest pain Qualifiers: Chest pain type: unspecified Qualified Code(s): R07.9 - Chest pain, unspecified Condition: Stable Disposition: ADMITTED OBSERVATION Admitting Provider: Tania (Hospitalist) Unit Admitted: Telemetry
[2019-10-20] MEDS ORDERED: NITROGLYCERIN 2% OINTMENT 1 GM PACKET TP ONE (00:10)
[2019-10-20] MEDS ORDERED: ONDANSETRON HCL INJ/PF 4 MG/2 ML SDV IV ONE (00:10)
[2019-10-20] MEDS ORDERED: MORPHINE SULFATE 10 MG/ML INJ IV ONE (00:10)
[2019-10-20 00:11] LABS: INTERNATIONAL RATION (INR) 2.61; PROTHROMBIN TIME 28.4 SEC (11.4-15.4)
[2019-10-20] MEDS ORDERED: DEXTROSE 50%-WATER 25 GM/50 ML DISP.SYRIN IV ONE ×3 (00:11→01:49)
[2019-10-20] MEDS ORDERED: INSULIN REG, HUMAN 100 UNIT/ML 3 ML VIAL (PYX) IV ONE (00:11)
[2019-10-20 02:40] LABS: URINE AMPHETAMINES SCREEN NEGATIVE; URINE BARBITURATES SCREEN NEGATIVE; URINE BENZODIAZEPINES SCREEN NEGATIVE; URINE COCAINE SCREEN NEGATIVE; URINE MARIJUANA (THC) SCREEN NEGATIVE; URINE METHADONE SCREEN NEGATIVE; URINE PHENCYCLIDINE SCREEN NEGATIVE
[2019-10-20] MEDS ORDERED: MAG HYDROX/AL HYDROX/SIMETH SUSP 30 ML UDCUP PO PRN (04:41)
[2019-10-20] MEDS ORDERED: LEVALBUTEROL HCL NEB 0.63 MG/3 ML AMPUL NEB PRN (04:41)
[2019-10-20] MEDS ORDERED: MAGNESIUM HYDROXIDE SUSP 30 ML UDCUP PO PRN (04:41)
[2019-10-20] MEDS ORDERED: ONDANSETRON HCL INJ/PF 4 MG/2 ML SDV IV PRN (04:41)
[2019-10-20] MEDS ORDERED: DEXTROSE 40% GEL 15 GM TUBE PO PRN ×2 (04:46)
[2019-10-20] MEDS ORDERED: DEXTROSE 50%-WATER 25 GM/50 ML DISP.SYRIN IV PRN ×2 (04:46)
[2019-10-20] MEDS ORDERED: GLUCAGON,HUMAN RECOMB 1 MG INJ IM PRN (04:46)
[2019-10-20] MEDS ORDERED: LORAZEPAM INJ 2 MG/1 ML VIAL IV PRN (04:47)
[2019-10-20] MEDS ORDERED: MORPHINE SULFATE 10 MG/ML INJ IV PRN ×2 (04:47)
[2019-10-20] MEDS ORDERED: ACETAMINOPHEN 325 MG TABLET PO PRN (04:47)
[2019-10-20] MEDS ORDERED: HYDRALAZINE HCL INJ/PF 20 MG/1 ML SDV IV PRN (04:47)
[2019-10-20] MEDS ORDERED: NICOTINE 21 MG/24 HR PATCH.TD24 TD PRN (04:47)
[2019-10-20] MEDS ORDERED: HEPARIN SOD (PORCINE) 5,000 UNIT/ML 1 ML VIAL SUBCUT SCH (06:00)
[2019-10-20 06:22] LABS: CREATINE KINASE MB 2.83 ng/mL (<4.55); TROPONIN I 0.067 ng/mL
--- NOTE | 2019-10-20 06:37 | PDOC H&P ---
History of Present Illness Admission Date/PCP: 10/20/2019 04:25 OLIVER ARTHUR MD Patient complains of: Chest pain History of Present Illness: KRISTY CANTU is a 64 year old male who presented the emergency room via EMS with acute chest pain. He admits the sudden onset of a severe, constant, sharp tightness in his chest accompanied by severe dyspnea and associated with orthopnea and profuse diaphoresis just prior to coming to the emergency room. He also admits pain in his left arm and his left lower extremity that feel the same as his chest pain. He admits numerous prior similar episodes related to his coronary artery disease, congestive heart failure and his end-stage renal disease requiring dialysis. He denies other associated or accompanying signs and symptoms. He has not identified any aggravating or ameliorating factors for his dyspnea. In the emergency room he was found to have an elevated troponin that remained stable over the course of his emergency room visit. He was noted to have a potassium of 5.6 and moderate pulmonary congestion consistent with the need for dialysis. Dr. Renteria was contacted by the emergency room physician and has agreed to dialyze the patient later today after a hospitalist observation status admission. Past Medical History Cardiac Medical History: Reports: Congestive Heart Failure - EF is 40%, with moderate diastolic dysfunction, Coronary Artery Disease, DVT, Myocardial Infarction, Hyperlipidema, Hypertension, Peripheral Vascular Disease, Pulmonary Embolism Denies: Atrial Fibrillation Pulmonary Medical History: Reports: Bronchitis, Chronic Obstructive Pulmonary Disease (COPD), Pneumonia, Respiratory Failure, Other - Chronic cough secondary to smoking Denies: Asthma, Sleep Apnea EENT Medical History: Denies: Cataracts, Ears - Hearing aids Neurological Medical History: Denies: Hemorrhagic CVA, Ischemic CVA, Migraine, Seizures Endocrine Medical History: Reports: Diabetes Mellitus Type 2 - insulin dependent Denies: Diabetes Mellitus Type 1, Hyperthyroidism, Hypothyroidism Renal/ Medical History: Reports: Chronic Kidney Disease, End Stage Renal D isease - Dialysis MWF with Dr. Pablo Lowe Denies: Nephrolithiasis Malignancy Medical History: Reports: None GI Medical History: Reports: Gastroesophageal Reflux Disease Denies: Cirrhosis, Crohn's Disease, Hepatitis, Ulcerative Colitis Musculoskeltal Medical History: Reports: Arthritis Denies: Fibromyalgia Skin Medical History: Denies: Eczema, Psoriasis Psychiatric Medical History: Reports: Depression, Substance Abuse, Tobacco Dependency Denies: Alcohol Dependency Traumatic Medical History: Reports: None Hematology: Reports: Anemia, Bleeding Tendencies - Since being on warfarin Infectious Medical History: Reports: HIV - noncompliant with meds Past Surgical History Past Surgical History: Reports: Orthopedic Surgery - bilateral amputation, R BK A, L AKA, Vascular Surgery - left arm clot removed, IVC filter, thrombectomy 05/18/2018 left arm, Other - Tunnel graft right axillary femoral bypass, dialysis fistula LUE Social History Information Source: Patient Lives with: Alone Smoking Status: Current Every Day Smoker Electronic Cigarette use?: No Frequency of Alcohol Use: None Hx Recreational Drug Use: Yes Drugs: Cocaine Hx Prescription Drug Abuse: No - Advance Directive Resuscitation Status: Full Code Surrogate healthcare decision maker:: Mary Marin Family History Family History: CAD, CVA, DM, Hyperlipidemia, Hypertension, Malignancy Parental Family History Reviewed: Yes Children Family History Reviewed: No Sibling(s) Family History Reviewed.: Yes Medication/Allergy Home Medications: Abacavir Sulfate [Abacavir 300 mg Tablet] 600 mg PO DAILY 08/22/19 Carvedilol [Coreg] 25 mg PO Q12 08/22/19 Clonidine HCl [Catapres 0.2 mg Tablet] 0.2 mg PO Q8 08/22/19 Clonidine [Catapres-Tts 3 (0.3 mg/24 Hr) Transderm Patch] 0.3 mg TOP TU@1000 08/22/19 Dolutegravir Sodium [Tivicay] 50 mg PO DAILY 08/22/19 Doxazosin Mesylate [Cardura 4 mg Tablet] 4 mg PO QHS 08/22/19 Fluticasone Propionate [Flovent Hfa 110 Mcg Inhalation Aerosol 12 gm] 2 puff IH BID 08/22/19 Hydralazine HCl [Apresoline 10 mg Tablet] 10 mg PO Q12 08/22/19 Ipratropium/Albuterol Sulfate [Duoneb 3 ml Ampul] 3 ml NEB RTQID 08/22/19 Isosorbide Mononitrate [Isosorbide Mononitrate ER] 120 mg PO DAILY 08/22/19 Lamivudine [Epivir] 5 ml PO DAILY 08/22/19 Nicotine [Nicoderm 21 mg/24 Hr Transderm Patch] 21 mg TOP DAILY 08/22/19 Nifedipine [Nifedipine ER] 90 mg PO DAILY 08/22/19 Calcium Acetate [Phoslo 667 mg Capsule] 667 mg PO MEALS 08/24/19 Warfarin Sodium 10 mg PO SUFRSA@2200 #0 08/26/19 Warfarin Sodium [Coumadin 4 mg Tablet] 8 mg PO MOTUWETH@2200 #0 08/26/19 Albuterol Sulfate [Ventolin Hfa 8 gm Mdi (1 Mdi/ER Disp)] 2 puff IH Q4HP PRN 10/05/19 Furosemide [Lasix 80 mg Tablet] 80 mg PO BID 10/05/19 Oxycodone HCl/Acetaminophen [Percocet 10-325 mg Tablet] 1 each PO Q6HP PRN 10/05/19 Gabapentin [Neurontin 300 mg Capsule] 300 mg PO DAILY 30 Days #30 capsule 10/07/19 Allergies/Adverse Reactions: calcitriol Allergy (Verified 10/04/19 20:15) itching Review of Systems Constitutional: ABSENT: chills, fever(s) Eyes: ABSENT: visual disturbances, other - Eye pain Ears: ABSENT: hearing changes, other - Ear pain Nose, Mouth, and Throat: ABSENT: headache(s), sore throat Cardiovascular: PRESENT: as per HPI, chest pain, dyspnea on exertion, orthropne a. ABSENT: palpitations Respiratory: PRESENT: as per HPI, cough - Chronic, dyspnea Gastrointestinal: ABSENT: abdominal pain, constipation, diarrhea, nausea, vomiting Genitourinary: ABSENT: dysuria, hematuria Musculoskeletal: ABSENT: back pain, joint swelling Integumentary: ABSENT: pruritus, rash Neurological: ABSENT: confusion, convulsions, focal weakness, memory loss, syncope Psychiatric: ABSENT: anxiety, depression Endocrine: ABSENT: cold intolerance, heat intolerance Hematologic/Lymphatic: ABSENT: easy bleeding, easy bruising Allergic/Immunologic: ABSENT: seasonal rhinorrhea Physical Exam Vital Signs: Temp Pulse Resp BP Pulse Ox 98.5 F 19 170/98 H 95 10/20/19 02:40 10/20/19 01:01 10/20/19 01:01 10/20/19 01:01 Intake & Output 10/18/19 10/19/19 10/20/19 23:59 23:59 23:59 Weight 79.7 kg General appearance: PRESENT: no acute distress, cooperative Head exam: PRESENT: atraumatic, normocephalic Eye exam: ABSENT: conjunctival injection, scleral icterus Ear exam: PRESENT: normal external ear exam. ABSENT: bleeding, drainage Mouth exam: PRESENT: dry mucosa, neck supple Neck exam: PRESENT: JVD - Mild bilateral. ABSENT: thyromegaly, tracheal deviation Respiratory exam: PRESENT: rales - Fine bibasilar rales, symmetrical, unlabored. ABSENT: wheezes Cardiovascular exam: PRESENT: RRR. ABSENT: clicks, gallop, rubs Pulses: PRESENT: normal carotid pulses, normal radial pulses GI/Abdominal exam: PRESENT: normal bowel sounds, soft Rectal exam: PRESENT: deferred Extremities exam: ABSENT: joint swelling, tenderness Musculoskeletal exam: PRESENT: other - Status post left AKA and right BKA. ABSENT: deformity, dislocation Neurological exam: PRESENT: alert, oriented to person, oriented to place, oriented to time, oriented to situation, CN II-XII grossly intact. ABSENT: motor sensory deficit Psychiatric exam: PRESENT: appropriate affect, normal mood Skin exam: PRESENT: dry, intact, warm. ABSENT: jaundice, rash, urticaria Results Laboratory Results: 10/19/19 22:16 10/19/19 22:16 10/19/19 10/19/19 10/19/19 22:16 22:16 22:16 WBC 8.2 RBC 3.76 L Hgb 12.1 L Hct 35.4 L MCV 94 MCH 32.3 MCHC 34.2 RDW 15.0 H Plt Count 213 Seg Neutrophils % 41.6 L VBG pH 7.40 VBG pCO2 43.2 VBG HCO3 26.0 VBG Base Excess 0.9 Sodium 138.5 Potassium 5.6 H Chloride 100 Carbon Dioxide 26 Anion Gap 13 BUN 50 H Creatinine 8.32 H Est GFR ( Amer) 8 L Glucose 88 Calcium 10.4 H Total Bilirubin 0.4 AST 42 Alkaline Phosphatase 69 Total Protein 7.6 Albumin 4.0 10/19/19 10/20/19 22:16 01:48 Troponin I 0.056 0.063 Impressions: Chest X-Ray 10/19/19 22:13 IMPRESSION: COPD. Mild cardiomegaly. No active cardiopulmonary lesions. Assessment and Plan - Diagnosis (1) Chest pain Qualifiers: Chest pain type: unspecified Qualified Code(s): R07.9 - Chest pain, unspecified Is this a current diagnosis for this admission?: Yes (2) Elevated troponin Is this a current diagnosis for this admission?: Yes (3) Uncontrolled hypertension Is this a current diagnosis for this admission?: Yes (4) Hyperkalemia Is this a current diagnosis for this admission?: Yes (5) ESRD needing dialysis Is this a current diagnosis for this admission?: Yes (6) Peripheral vascular disease Is this a current diagnosis for this admission?: Yes (7) HIV (human immunodeficiency virus infection) Qualifiers: HIV symptom status: unspecified Qualified Code(s): B20 - Human immunodeficiency virus [HIV] disease Is this a current diagnosis for this admission?: Yes (8) Tobacco abuse Is this a current diagnosis for this admission?: Yes - Plan Summary Summary: Patient is admitted observation status in a medical telemetry bed where he will receive routine supportive and symptomatic cares. He will have serial cardiac enzymes performed. He will use morphine sulfate 2 to 4 mg IV every 2 hours as needed for pain. He will use Ativan 1 mg IV every 4 hours as needed for anxiety or restlessness. Dr. Renteria has been consulted and has agreed to dialyze the patient later this morning. Smoking cessation is advised and counseled briefly at the bedside. A nicotine replacement patch is available for the patient's use, if desired. Before meals and at bedtime Accu-Cheks will be obtained with sliding scale insulin for hyperglycemia and a hypoglycemic protocol in place. Patient will be continued on his usual home medications as appropriate once his home medication list has been verified and reconciled. - Time Time Spent with patient: 25-34 minutes Smoking Cessation Education: 3 to 10 minutes Medications reviewed and adjusted accordingly: Yes Anticipated discharge: Home Within: within 24 hours
[2019-10-20] MEDS: MORPHINE SULFATE 10 MG/ML INJ IV PRN ×2 (07:01→20:00)
[2019-10-20] MEDS: PANTOPRAZOLE SODIUM 40 MG TABLET.DR PO SCH ×2 (07:02→17:18)
[2019-10-20] MEDS: LEVALBUTEROL HCL NEB 1.25 MG/3 ML AMPUL NEB SCH ×3 (08:10→23:53)
[2019-10-20] MEDS: IPRATROPIUM BROMIDE 0.02% NEB 0.5 MG/2.5 ML AMPUL NEB SCH ×3 (08:10→23:53)
[2019-10-20] MEDS: BUDESONIDE NEB 0.5 MG/2 ML AMPUL NEB SCH ×2 (08:10→19:54)
[2019-10-20] MEDS: INSULIN REG, HUMAN 100 UNIT/ML 3 ML VIAL (PYX) SUBCUT SCH ×4 (08:17→21:30)
--- NOTE | 2019-10-20 08:26 | EKG REPORT ---
SEVERITY:- ABNORMAL ECG - SINUS TACHYCARDIA LEFT ANTERIOR FASCICULAR BLOCK LEFT VENTRICULAR HYPERTROPHY : Confirmed by: Beulah Storm 20-Oct-2019 08:25:49
[2019-10-20] MEDS: DOCUSATE SODIUM 100 MG CAPSULE PO SCH ×2 (09:35→17:18)
[2019-10-20] MEDS ORDERED: NORMAL SALINE 1000 ML 1,000 ML IV PRN (09:39)
[2019-10-20] MEDS ORDERED: LAMIVUDINE PO SCH (10:00)
[2019-10-20] MEDS ORDERED: (PENDING PHARMACY ID) (Nifedipine [Nifedipine Er] 90 MG) PO SCH (10:00)
[2019-10-20] MEDS ORDERED: (PENDING PHARMACY ID) (Isosorbide Mononitrate [Isosorbide Mononitrate Er] 120 MG) PO SCH (10:00)
[2019-10-20] MEDS ORDERED: (PENDING PHARMACY ID) (Dolutegravir Sodium [Tivicay] 50 MG) PO SCH (10:00)
[2019-10-20] MEDS ORDERED: ABACAVIR SULFATE 600 MG PO SCH (10:00)
--- NOTE | 2019-10-20 10:03 | PDOC CONSULTATION ---
Consultation Consult Date: 10/20/19 Provider Consulted: KELLI MAYNARD Consult reason:: ESRD with SOB. History of Present Illness Admission Date/PCP: 10/20/19 04:35 OLIVER ARTHUR MD History of Present Illness: KRISTY CANTU is a 64-year-old -[place] gentleman known to me with history of end-stage renal disease on maintenance hemodialysis on MWF, hypertension, HIV, venous thrombi embolism on anticoagulation, coronary artery disease, COPD, peripheral vascular disease with right AKA BKA and left AKA who presented to the emergency room last night due to acute onset of severe sharp c hest tightness associated with shortness of breath, orthopnea and profuse diaphoresis. Patient relates that this happened acutely as he got up trying to go to the bathroom and all the symptoms started. His troponin is indeterminate. He was admitted for observation due to the chest pains. Patient also relates that yesterday he actually went to his primary care provider because of some cough and with yellow phlegm and he was prescribed antibiotics which I assume is Z-Moreno to really describe it. He said his nifedipine is supposedly increased also to 90 mg every 12 hours to a higher dose. He denies any fever no recent travel. He has some acid reflux. He denies any nausea, vomiting or diarrhea. I am seeing the patient during dialysis this morning. He seems to be clinically well and not requiring oxygen. He said he still has a little bit of chest tightness but this is better. He does not appear to be in any distress. He is currently tolerating dialysis without any problems. His blood pressure is still somewhat elevated. He really has not had his home blood pressure medication started last night or this morning prior to dialysis. Past Medical History Cardiac Medical History: Reports: CHF-Diastolic, Coronary Artery Disease, DVT, Hyperlipidemia, Hypertension-primary, Myocardial Infarction, Peripheral Vascular Disease, Pulmonary Embolism Pulmonary Medical History: Reports: Bronchitis, Chronic Obstructive Pulmonary Disease (COPD), Pneumonia, Respiratory Failure, Other - Chronic cough secondary to smoking Endocrine Medical History: Reports: Diabetes Mellitus Type 2 - insulin dependent Renal/ Medical History: Reports: End Stage Renal Disease - Dialysis MWF with Dr. Pablo Lowe, Hyperphosphatemia, Metabolic Acidosis, Renal Osteodystropy, Secondary Hyperparathyroidism GI Medical History: Reports: Gastroesophageal Reflux Disease Musculoskeltal Medical History: Reports: Arthritis Psychiatric Medical History: Reports: Depression, Substance Abuse, Tobacco Dependency Infectious Medical History: Reports: HIV - noncompliant with meds Hematology Medical History: Reports Anemia of Chronic Kidney Disease Past Surgical History Past Surgical History: Reports: Dialysis Access Surgery AVF, Orthopedic Surgery - bilateral amputation, R BKA, L AKA, Vascular Surgery - left arm clot removed, IVC filter, thrombectomy 05/18/2018 left arm, Other - Tunnel graft right axillary femoral bypass, dialysis fistula LUE Social History Information Source: Patient Lives with: Family Smoking Status: Current Every Day Smoker Electronic Cigarette use?: No Frequency of Alcohol Use: None Hx Recreational Drug Use: Yes Drugs: Cocaine Hx Prescription Drug Abuse: No - Advance Directive Resuscitation Status: Full Code Family History Family History: End Stage Renal Disease - Brother, Hypertension - Brother Parental Family History Reviewed: Yes Children Family History Reviewed: Yes Sibling(s) Family History Reviewed.: Yes Medication/Allergy Home Medications: Abacavir Sulfate [Abacavir 300 mg Tablet] 600 mg PO DAILY 08/22/19 Carvedilol [Coreg] 25 mg PO Q12 08/22/19 Clonidine HCl [Catapres 0.2 mg Tablet] 0.2 mg PO Q8 08/22/19 Clonidine [Catapres-Tts 3 (0.3 mg/24 Hr) Transderm Patch] 0.3 mg TOP TU@1000 08/22/19 Dolutegravir Sodium [Tivicay] 50 mg PO DAILY 08/22/19 Doxazosin Mesylate [Cardura 4 mg Tablet] 4 mg PO QHS 08/22/19 Fluticasone Propionate [Flovent Hfa 110 Mcg Inhalation Aerosol 12 gm] 2 puff IH BID 08/22/19 Hydralazine HCl [Apresoline 10 mg Tablet] 10 mg PO Q12 08/22/19 Isosorbide Mononitrate [Isosorbide Mononitrate ER] 120 mg PO DAILY 08/22/19 Lamivudine [Epivir] 5 ml PO DAILY 08/22/19 Nifedipine [Nifedipine ER] 90 mg PO DAILY 08/22/19 Calcium Acetate [Phoslo 667 mg Capsule] 667 mg PO MEALS 08/24/19 Warfarin Sodium 10 mg PO SUFRSA@2200 #0 08/26/19 Warfarin Sodium [Coumadin 4 mg Tablet] 8 mg PO MOTUWETH@2200 #0 08/26/19 Furosemide [Lasix 80 mg Tablet] 80 mg PO BID 10/05/19 Gabapentin [Neurontin 300 mg Capsule] 300 mg PO DAILY 30 Days #30 capsule 10/07/19 Albuterol Sulfate [Ventolin Hfa 8 gm Mdi] 2 puff IH Q4HP PRN 10/20/19 Allergies/Adverse Reactions: calcitriol Allergy (Verified 10/04/19 20:15) itching Review of Systems All systems: reviewed and no additional remarkable complaints except as stated Review of Systems: Constitutional: ABSENT: chills, fatigue, fever(s), weight gain, weight loss; admits headache Eyes: ABSENT: visual disturbances Ears: ABSENT: hearing changes Cardiovascular: ABSENT: Edema, palpitations; admits chest tightness, shortness of breath and orthopnea Respiratory: ABSENT: Hemoptysis; admits cough Gastrointestinal: ABSENT: abdominal pain, constipation, diarrhea, hematemesis, hematochezia, nausea, vomiting Genitourinary: ABSENT: dysuria, hematuria Musculoskeletal: ABSENT: joint swelling Integumentary: ABSENT: rash, wounds Neurological: ABSENT: abnormal gait, abnormal speech, confusion, dizziness, focal weakness, numbness, syncope Psychiatric: ABSENT: anxiety, depression Endocrine: ABSENT: cold intolerance, heat intolerance, polydipsia, polyuria Hematologic/Lymphatic: ABSENT: easy bleeding, easy bruising, lymphadenopathy Physical Exam Vital Signs: Temp Pulse Resp BP Pulse Ox 97.7 F 86 18 186/95 H 100 10/20/19 08:12 10/20/19 08:12 10/20/19 08:12 10/20/19 08:12 10/20/19 08:12 Intake & Output 10/19/19 10/20/19 10/21/19 06:59 06:59 06:59 Weight 81.1 kg Vitals during dialysis: Blood pressure 166/91, heart rate of 86, blood flow rate of 450 mL/min and dialysate flow rate of 800 mL/min. Exam: General appearance: No acute distress, cooperative, well-developed, well- nourished Head exam: PRESENT: atraumatic, normocephalic Eye exam: PRESENT: Conjunctiva [place], EOMI, PERRLA. ABSENT: conjunctival injection, scleral icterus Mouth exam: PRESENT: moist, neck supple, tongue midline Neck exam: PRESENT: full ROM. ABSENT: carotid bruit, JVD, lymphadenopathy, thyromegaly Respiratory exam: PRESENT: clear to auscultation bilaterally. ABSENT: rales, rhonchi, stridor, wheezes Cardiovascular exam: PRESENT: RRR, +S1, +S2. ABSENT: systolic murmur Pulses: PRESENT: normal radial pulses, normal dorsalis pedis pulses GI/Abdominal exam: PRESENT: normal bowel sounds, soft. ABSENT: guarding, mass, tenderness Rectal exam: Deferred Extremities exam: PRESENT: Right BKA and left AKA stumps ABSENT: calf tenderness, pedal edema Musculoskeletal: PRESENT: full ROM. ABSENT: deformity Neurological exam: PRESENT: alert, Awake, Oriented to person, Oriented to place, Oriented to time, reflexes normal, CN II-XII grossly intact. ABSENT: motor sensory deficit Psychiatric exam: PRESENT: appropriate affect, normal mood. ABSENT: homicidal ideation, suicidal ideation Skin exam: PRESENT: intact, dry, warm. ABSENT: rash Results Laboratory Results: 10/19/19 22:16 10/19/19 22:16 10/19/19 10/19/19 10/19/19 22:16 22:16 22:16 WBC 8.2 RBC 3.76 L Hgb 12.1 L Hct 35.4 L MCV 94 MCH 32.3 MCHC 34.2 RDW 15.0 H Plt Count 213 Seg Neutrophils % 41.6 L VBG pH 7.40 VBG pCO2 43.2 VBG HCO3 26.0 VBG Base Excess 0.9 Sodium 138.5 Potassium 5.6 H Chloride 100 Carbon Dioxide 26 Anion Gap 13 BUN 50 H Creatinine 8.32 H Est GFR ( Amer) 8 L Glucose 88 Calcium 10.4 H Total Bilirubin 0.4 AST 42 Alkaline Phosphatase 69 Total Protein 7.6 Albumin 4.0 10/19/19 10/20/19 10/20/19 22:16 01:48 05:40 Creatine Kinase 67 CK-MB (CK-2) Troponin I 0.056 0.063 10/20/19 05:40 Creatine Kinase CK-MB (CK-2) 2.83 Troponin I 0.067 Impressions: Chest X-Ray 10/19/19 22:13 IMPRESSION: COPD. Mild cardiomegaly. No active cardiopulmonary lesions. Assessment & Plan - Diagnosis (1) ESRD needing dialysis Is this a current diagnosis for this admission?: Yes Plan: We will do dialysis today for 3 hours, using the patient's AV fistula, with 2 potassium bath, blood flow rate of 400 mL per minute, dialysate flow rate of 800 mL per minute, ultrafiltration 3 L as tolerated, no heparin and no Procrit. Discussed treatment plan with our dialysis nurse. Patient will be monitored throughout dialysis treatment. Ultrafiltration will be adjusted accordingly. (2) Chest pain Qualifiers: Chest pain type: unspecified Qualified Code(s): R07.9 - Chest pain, uns pecified Is this a current diagnosis for this admission?: Yes Plan: Hospitalist monitoring the patient's cardiac enzymes. Chest pain clinically better. (3) Hyperkalemia Is this a current diagnosis for this admission?: Yes (4) Hypertension Qualifiers: Hypertension type: essential hypertension Qualified Code(s): I10 - Essential (primary) hypertension Is this a current diagnosis for this admission?: Yes Plan: Resume patient's home blood pressure medications. (5) Elevated troponin Is this a current diagnosis for this admission?: Yes Plan: Indeterminate as of this time. (6) Anemia in chronic kidney disease, on chronic dialysis Is this a current diagnosis for this admission?: Yes Plan: Retacrit as needed during dialysis treatment. (7) Chronic kidney disease-mineral and bone disorder Is this a current diagnosis for this admission?: Yes Plan: Resume calcium acetate for phosphorus binder. - Notes Notes: Thank you very much for this consultation. - Time Time Spent: 50 to 70 Minutes
[2019-10-20 12:20] LABS: CREATINE KINASE MB 3.14 ng/mL (<4.55); TROPONIN I 0.074 ng/mL
[2019-10-20] MEDS: FUROSEMIDE 80 MG TABLET PO SCH ×2 (12:20→17:18)
[2019-10-20] MEDS: GABAPENTIN 300 MG CAPSULE PO SCH (12:20)
[2019-10-20] MEDS: ISOSORBIDE MONONITRATE 60 MG TAB.ER.24H PO SCH (12:20)
[2019-10-20] MEDS: HYDRALAZINE HCL 10 MG TABLET PO SCH ×2 (12:20→21:13)
[2019-10-20] MEDS: CALCIUM ACETATE 667 MG CAPSULE PO SCH ×2 (12:20→17:18)
[2019-10-20] MEDS: NIFEDIPINE 30 MG TAB.ER.24 PO SCH (12:20)
[2019-10-20] MEDS: FLUTICASONE PROPIONATE HFA 110 MCG/PUFF 12 GM MDI IH SCH ×2 (12:21→17:19)
[2019-10-20] MEDS: CARVEDILOL 12.5 MG TABLET PO SCH ×2 (12:22→21:13)
[2019-10-20] MEDS: CLONIDINE HCL 0.2 MG TABLET PO SCH ×2 (14:10→21:13)
[2019-10-20 17:38] LABS: CREATINE KINASE MB 2.65 ng/mL (<4.55); TROPONIN I 0.064 ng/mL
[2019-10-20] MEDS ORDERED: WARFARIN SODIUM 4 MG TABLET PO SCH (22:00)
[2019-10-20] MEDS ORDERED: (PENDING PHARMACY ID) (Warfarin Sodium 8 MG) PO SCH (22:00)
[2019-10-20] MEDS ORDERED: DOXAZOSIN MESYLATE 4 MG TABLET PO SCH (22:00)
[2019-10-21] MEDS: MORPHINE SULFATE 10 MG/ML INJ IV PRN ×3 (03:08→07:40)
[2019-10-21] MEDS: CLONIDINE HCL 0.2 MG TABLET PO SCH ×2 (05:27→13:11)
[2019-10-21] MEDS: PANTOPRAZOLE SODIUM 40 MG TABLET.DR PO SCH (05:27)
[2019-10-21] MEDS: INSULIN REG, HUMAN 100 UNIT/ML 3 ML VIAL (PYX) SUBCUT SCH ×2 (07:31→11:31)
[2019-10-21] MEDS: CALCIUM ACETATE 667 MG CAPSULE PO SCH ×2 (07:34→11:32)
[2019-10-21] MEDS: BUDESONIDE NEB 0.5 MG/2 ML AMPUL NEB SCH (07:51)
[2019-10-21] MEDS: LEVALBUTEROL HCL NEB 1.25 MG/3 ML AMPUL NEB SCH (07:51)
[2019-10-21] MEDS: IPRATROPIUM BROMIDE 0.02% NEB 0.5 MG/2.5 ML AMPUL NEB SCH (07:51)
[2019-10-21] MEDS: HYDRALAZINE HCL 10 MG TABLET PO SCH (09:26)
[2019-10-21] MEDS: GABAPENTIN 300 MG CAPSULE PO SCH (09:26)
[2019-10-21] MEDS: FUROSEMIDE 80 MG TABLET PO SCH (09:26)
[2019-10-21] MEDS: CARVEDILOL 12.5 MG TABLET PO SCH (09:26)
[2019-10-21] MEDS: ISOSORBIDE MONONITRATE 60 MG TAB.ER.24H PO SCH (09:26)
[2019-10-21] MEDS: DOCUSATE SODIUM 100 MG CAPSULE PO SCH (09:26)
[2019-10-21] MEDS: NIFEDIPINE 30 MG TAB.ER.24 PO SCH (09:27)
[2019-10-21] MEDS: FLUTICASONE PROPIONATE HFA 110 MCG/PUFF 12 GM MDI IH SCH (09:27)
[2019-10-21] MEDS ORDERED: OXYCODONE-ACETAMINOPHEN 5-325 MG TABLET PO ONE (10:30)
--- NOTE | 2019-10-21 10:39 | PDOC DISCHARGE SUMMARY ---
Impression - Admit/DC Date/PCP Admission Date/Primary Care Provider: 10/20/19 04:35 OLIVER ARTHUR MD Discharge Date: 10/21/19 - Discharge Diagnosis (1) Hyperkalemia Is this a current diagnosis for this admission?: Yes (2) ESRD needing dialysis Is this a current diagnosis for this admission?: Yes (3) Elevated troponin Is this a current diagnosis for this admission?: Yes (4) Hypertensive emergency Is this a current diagnosis for this admission?: Yes (5) Pulmonary edema Is this a current diagnosis for this admission?: Yes - Assessment Summary: Patient is admitted observation status in a medical telemetry bed where he will receive routine supportive and symptomatic cares. He will have serial cardiac enzymes performed. He will use morphine sulfate 2 to 4 mg IV every 2 hours as needed for pain. He will use Ativan 1 mg IV every 4 hours as needed for anxiety or restlessness. Dr. Renteria has been consulted and has agreed to dialyze the patient later this morning. Smoking cessation is advised and counseled briefly at the bedside. A nicotine replacement patch is available for the patient's use, if desired. Before meals and at bedtime Accu-Cheks will be obtained with sliding scale insulin for hyperglycemia and a hypoglycemic protocol in place. Patient will be continued on his usual home medications as appropriate once his home medication list has been verified and reconciled. - Additional Information Resuscitation Status: Full Code Discharge Activity: Activity As Tolerated Referrals: OLIVER ARTHUR MD [Primary Care Provider] - Follow up as needed (LEFT MESSAGE WITH CHING TO SET UP FOLLOW APPT FOR MESSAGE.) Home Medications: Abacavir Sulfate [Abacavir 300 mg Tablet] 600 mg PO DAILY 08/22/19 Carvedilol [Coreg] 25 mg PO Q12 08/22/19 Clonidine HCl [Catapres 0.2 mg Tablet] 0.2 mg PO Q8 08/22/19 Clonidine [Catapres-Tts 3 (0.3 mg/24 Hr) Transderm Patch] 0.3 mg TOP TU@1000 08/22/19 Dolutegravir Sodium [Tivicay] 50 mg PO DAILY 08/22/19 Doxazosin Mesylate [Cardura 4 mg Tablet] 4 mg PO QHS 08/22/19 Fluticasone Propionate [Flovent Hfa 110 Mcg Inhalation Aerosol 12 gm] 2 puff IH BID 08/22/19 Hydralazine HCl [Apresoline 10 mg Tablet] 10 mg PO Q12 08/22/19 Isosorbide Mononitrate [Isosorbide Mononitrate ER] 120 mg PO DAILY 08/22/19 Lamivudine [Epivir] 5 ml PO DAILY 08/22/19 Nifedipine [Nifedipine ER] 90 mg PO DAILY 08/22/19 Calcium Acetate [Phoslo 667 mg Capsule] 667 mg PO MEALS 08/24/19 Warfarin Sodium 10 mg PO SUFRSA@2200 #0 08/26/19 Warfarin Sodium [Coumadin 4 mg Tablet] 8 mg PO MOTUWETH@2200 #0 08/26/19 Furosemide [Lasix 80 mg Tablet] 80 mg PO BID 10/05/19 Gabapentin [Neurontin 300 mg Capsule] 300 mg PO DAILY 30 Days #30 capsule 10/07/19 Albuterol Sulfate [Ventolin Hfa 8 gm Mdi] 2 puff IH Q4HP PRN 10/20/19 History of Present Illiness History of Present Illness: KRISTY CANTU is a 64 year old male who presents emergency room with complaints of difficulty breathing and shortness of breath as well as chest pain with radiation to his left. He was found to be in hypertensive emergency as well as being hyperkalemic and pain in pulmonary vascular congestion. Nephrology was consulted. Please see admitting history and physical as well as consultation report by nephrology for full details. Hospital Course Hospital Course: P Patient was admitted and had dialysis done with his blood pressure as well as his symptoms improving rapidly. His initial blood pressure on presentation was 194/98 and this morning it is 150/77. He was found to have an elevated troponin however patient's troponin is similar to his baseline and the trend was also flat to downwards. His chest pain was thought to be secondary to pulmonary vascular congestion as well as his hypertensive emergency. There was no EKG changes. Patient has otherwise remained hemodynamically stable and at this time it is felt that he can be discharged home for outpatient follow-up. His initial potassium was 5.6 but he was subsequently dialyzed after that. His antihyperten sives were continued at the current doses but I will suggest outpatient reevaluation and adjustment as clinically indicated. Physical Exam Vital Signs: Temp Pulse Resp BP Pulse Ox 98.3 F 73 16 150/77 H 97 10/21/19 07:31 10/21/19 07:51 10/21/19 07:51 10/21/19 07:31 10/21/19 07:51 Intake & Output 10/20/19 10/21/19 10/22/19 06:59 06:59 06:59 Intake Total 1540 Output Total 3000 Balance -1460 Weight 81.1 kg 78.8 kg General appearance: PRESENT: no acute distress Head exam: PRESENT: atraumatic Neck exam: PRESENT: full ROM Respiratory exam: PRESENT: clear to auscultation ramila Cardiovascular exam: PRESENT: RRR, +S1, +S2 GI/Abdominal exam: PRESENT: normal bowel sounds, soft Extremities exam: PRESENT: other - L AKA R BKA Neurological exam: PRESENT: alert, awake, oriented to person, oriented to place, oriented to time Results Laboratory Results: WBC 8.2 10^3/uL (4.0-10.5) 10/19/19 22:16 RBC 3.76 10^6/uL (4.35-5.55) L 10/19/19 22:16 Hgb 12.1 g/dL (13.5-17.0) L 10/19/19 22:16 Hct 35.4 % (37.9-51.0) L 10/19/19 22:16 MCV 94 fl (80-97) 10/19/19 22:16 MCH 32.3 pg (27.0-33.4) 10/19/19 22:16 MCHC 34.2 g/dL (32.0-36.0) 10/19/19 22:16 RDW 15.0 % (11.5-14.0) H 10/19/19 22:16 Plt Count 213 10^3/uL (150-450) 10/19/19 22:16 Lymph % (Auto) 42.7 % (13-45) 10/19/19 22:16 [place] % (Auto) 10.6 % (3-13) 10/19/19 22:16 Eos % (Auto) 4.4 % (0-6) 10/19/19 22:16 Baso % (Auto) 0.7 % (0-2) 10/19/19 22:16 Absolute Neuts (auto) 3.4 10^3/uL (1.7-8.2) 10/19/19 22:16 Absolute Lymphs (auto) 3.5 10^3/uL (0.5-4.7) 10/19/19 22:16 Absolute Monos (auto) 0.9 10^3/uL (0.1-1.4) 10/19/19 22:16 Absolute Eos (auto) 0.4 10^3/uL (0.0-0.6) 10/19/19 22:16 Absolute Basos (auto) 0.1 10^3/uL (0.0-0.2) 10/19/19 22:16 Seg Neutrophils % 41.6 % (42-78) L 10/19/19 22:16 PT 28.4 SEC (11.4-15.4) H 10/19/19 22:16 INR 2.61 10/19/19 22:16 VBG pH 7.40 (7.30-7.42) 10/19/19 22:16 VBG pCO2 43.2 mmHg (35-63) 10/19/19 22:16 VBG HCO3 26.0 mmol/L (20-32) 10/19/19 22:16 VBG Base Excess 0.9 mmol/L 10/19/19 22:16 Sodium 138.5 mmol/L (137-145) 10/19/19 22:16 Potassium 5.6 mmol/L (3.6-5.0) H 10/19/19 22:16 Chloride 100 mmol/L (98-107) 10/19/19 22:16 Carbon Dioxide 26 mmol/L (22-30) 10/19/19 22:16 Anion Gap 13 (5-19) 10/19/19 22:16 BUN 50 mg/dL (7-20) H 10/19/19 22:16 Creatinine 8.32 mg/dL (0.52-1.25) H 10/19/19 22:16 Est GFR ( Amer) 8 (>60) L 10/19/19 22:16 Est GFR (MDRD) Non-Af 6 (>60) L 10/19/19 22:16 Glucose 88 mg/dL (75-110) 10/19/19 22:16 POC Glucose 117 mg/dL (70-110) H 10/21/19 05:10 Calcium 10.4 mg/dL (8.4-10.2) H 10/19/19 22:16 Total Bilirubin 0.4 mg/dL (0.2-1.3) 10/19/19 22:16 Direct Bilirubin 0.4 mg/dL (0.0-0.4) 10/19/19 22:16 Neonat Total Bilirubin Not Reportable 10/19/19 22:16 Neonat Direct Bilirubin Not Reportable 10/19/19 22:16 Neonat Indirect Bili Not Reportable 10/19/19 22:16 AST 42 U/L (17-59) 10/19/19 22:16 ALT 33 U/L (<50) 10/19/19 22:16 Alkaline Phosphatase 69 U/L (38-126) 10/19/19 22:16 Creatine Kinase 72 U/L (55-170) 10/20/19 16:57 CK-MB (CK-2) 2.65 ng/mL (<4.55) 10/20/19 16:57 Troponin I 0.064 ng/mL 10/20/19 16:57 Total Protein 7.6 g/dL (6.3-8.2) 10/19/19 22:16 Albumin 4.0 g/dL (3.5-5.0) 10/19/19 22:16 Urine Opiates Screen NEGATIVE 10/20/19 01:01 Urine Methadone Screen NEGATIVE 10/20/19 01:01 Ur Barbiturates Screen NEGATIVE 10/20/19 01:01 Ur Phencyclidine Scrn NEGATIVE 10/20/19 01:01 Ur Amphetamines Screen NEGATIVE 10/20/19 01:01 U Benzodiazepines Scrn NEGATIVE 10/20/19 01:01 Urine Cocaine Screen NEGATIVE 10/20/19 01:01 U Marijuana (THC) Screen NEGATIVE 10/20/19 01:01 10/19/19 10/20/19 10/20/19 22:16 01:48 05:40 CK-MB (CK-2) 2.83 Troponin I 0.056 0.063 0.067 10/20/19 10/20/19 11:39 16:57 CK-MB (CK-2) 3.14 2.65 Troponin I 0.074 0.064 Impressions: Chest X-Ray 10/19/19 22:13 IMPRESSION: COPD. Mild cardiomegaly. No active cardiopulmonary lesions. Plan Health Concerns: Will advise follow-up for hypertension and medication adjustment as necessary Time Spent: Greater than 30 Minutes Stroke Is this a Stroke Patient?: No Acute Heart Failure - Is this a Heart Failure Patient?: No
[2019-10-21 12:06] VITALS: BP 144/75
[2019-10-21] MEDS ORDERED: CLONIDINE 0.3 MG/24 HR PATCH.TDWK TOP SCH (14:00)
[2019-10-22] MEDS ORDERED: WARFARIN SODIUM 5 MG TABLET PO SCH (22:00)
[2019-10-22] MEDS ORDERED: WARFARIN SODIUM 10 MG PO SCH (22:00)
[2019-10-26] MEDS ORDERED: CLONIDINE 0.3 MG/24 HR PATCH.TDWK TOP SCH (10:00)
== END 2019-10-21 13:52 | disposition home or self-care (01) ==
LOC: ER 22:10 → EH 10-20 04:35 → 4N 10-20 06:27
PROVIDERS: ADMIT Emergency Medicine; ATTEND Internal Medicine
DX: E87.5 Hyperkalemia (principal); I13.2 Hypertensive heart and chronic kidney disease with heart failure and with stage 5 chronic kidney disease, or end stage renal disease; N18.6 End stage renal disease; I16.1 Hypertensive emergency; J81.1 Chronic pulmonary edema; B20 Human immunodeficiency virus [HIV] disease; I50.30 Unspecified diastolic (congestive) heart failure; D63.1 Anemia in chronic kidney disease; I25.10 Atherosclerotic heart disease of native coronary artery without angina pectoris; J44.9 Chronic obstructive pulmonary disease, unspecified; E11.51 Type 2 diabetes mellitus with diabetic peripheral angiopathy without gangrene; E11.29 Type 2 diabetes mellitus with other diabetic kidney complication; N25.0 Renal osteodystrophy; I25.2 Old myocardial infarction; F14.11 Cocaine abuse, in remission; F17.210 Nicotine dependence, cigarettes, uncomplicated; R79.89 Other specified abnormal findings of blood chemistry; Z79.899 Other long term (current) drug therapy; Z99.2 Dependence on renal dialysis; Z79.01 Long term (current) use of anticoagulants; Z86.711 Personal history of pulmonary embolism; Z79.4 Long term (current) use of insulin; Z89.511 Acquired absence of right leg below knee; Z89.612 Acquired absence of left leg above knee; Z60.2 Problems related to living alone
CPT/HCPCS: 99406; 93005; 96376; 99285; 96374; 96375; 36415 ×2; 82553; 82962 ×2; 82550; 85025; 85610; 80053; 84484 ×2; 80307; 82803; 71045; 93010; 94640 ×2; A9270 ×29; J3490 ×7; J2270 ×2; J2405; G0257; G0378; J1815; J7614

== ENCOUNTER 2019-11-01 05:00 | Emergency (ER) | payer MEDICARE, MEDICAID ==
--- NOTE | 2019-11-01 05:56 | RADIOLOGY REPORT (SQ) ---
EXAM: XR Chest, 1 View EXAM DATE/TIME: 11/01/2019 05:06 CLINICAL HISTORY: The patient is 64 years old and is Male; sob, chest pain, cough TECHNIQUE: Frontal view of the chest. COMPARISON: Chest radiograph from 10/19/2019 FINDINGS: LUNGS: A linear density compatible with subsegmental atelectasis or scarring is again noted in the right lung base. The lungs are otherwise clear. No consolidation visualized. PLEURAL SPACE: No obvious pneumothorax. No significant pleural effusion visualized. HEART: Stable enlargement of the cardiac silhouette. MEDIASTINUM: Unremarkable. BONES/JOINTS: Degenerative changes of the spine. SOFT TISSUES: Surgical clips again visualized projecting over the right upper chest. IMPRESSION: No acute findings visualized in the chest.
[2019-11-01 06:06] LABS: ABSOLUTE BASOPHILS # (AUTO) 0.1 10^3/uL (0.0-0.2); ABSOLUTE EOSINOPHILS # (AUTO) 0.4 10^3/uL (0.0-0.6); ABSOLUTE LYMPHOCYTES (AUTO) 3.2 10^3/uL (0.5-4.7); ABSOLUTE MONOCYTES (AUTO) 0.7 10^3/uL (0.1-1.4); ABSOLUTE NEUT (AUTO) 3.9 10^3/uL (1.7-8.2); BASOPHILS % (AUTO) 0.7 % (0-2); EOSINOPHILS % (AUTO) 4.6 % (0-6); HEMATOCRIT 32.7 % (37.9-51.0); HEMOGLOBIN 11.3 g/dL (13.5-17.0); LYMPHOCYTES % (AUTO) 38.9 % (13-45); MEAN CORPUSCULAR HEMOGLOBIN 32.4 pg (27.0-33.4); MEAN CORPUSCULAR HGB CONC 34.6 g/dL (32.0-36.0); MEAN CORPUSCULAR VOLUME 94 fl (80-97); MONOCYTES % (AUTO) 8.9 % (3-13); PLATELET COUNT 241 10^3/uL (150-450); RED CELL DISTRIBUTION WIDTH 14.7 % (11.5-14.0); SEGMENTED NEUTROPHILS % (AUTO) 46.9 % (42-78); TOTAL CELLS COUNTED % (AUTO) 100 %; WHITE BLOOD COUNT 8.2 10^3/uL (4.0-10.5)
[2019-11-01 06:27] LABS: ALBUMIN 3.9 g/dL (3.5-5.0); ALKALINE PHOSPHATASE 63 U/L (38-126); ANION GAP 13 (5-19); ASPARTATE AMINO TRANSFERASE 19 U/L (17-59); BILIRUBIN,DIRECT 0.2 mg/dL (0.0-0.4); BILIRUBIN,TOTAL 0.3 mg/dL (0.2-1.3); BLOOD UREA NITROGEN 66 mg/dL (7-20); CARBON DIOXIDE 22 mmol/L (22-30); CHLORIDE 103 mmol/L (98-107); CREATINE KINASE 59 U/L (55-170); GLUCOSE 117 mg/dL (75-110); POTASSIUM 4.7 mmol/L (3.6-5.0); TOTAL PROTEIN 7.2 g/dL (6.3-8.2)
[2019-11-01 06:39] LABS: CREATINE KINASE MB 1.62 ng/mL (<4.55)
[2019-11-01 06:47] LABS: TROPONIN I 0.053 ng/mL
[2019-11-01] MEDS ORDERED: IPRATROPIUM/ALBUTEROL 0.5-2.5 MG/3 ML AMPUL NEB ONE (06:56)
[2019-11-01 07:22] LABS: INTERNATIONAL RATION (INR) 3.58; PROTHROMBIN TIME 36.6 SEC (11.4-15.4)
--- NOTE | 2019-11-01 07:30 | EKG REPORT ---
SEVERITY:- ABNORMAL ECG - SINUS RHYTHM VENTRICULAR PREMATURE COMPLEX LAFB LEFT AXIS DEVIATION LEFT VENTRICULAR HYPERTROPHY : Confirmed by: Marco Young MD 01-Nov-2019 07:30:10
[2019-11-01] MEDS ORDERED: ALBUTEROL SULFATE 0.083% NEB 2.5 MG/3 ML AMPUL NEB ONE (07:49)
--- NOTE | 2019-11-01 08:11 | ER Document Report ---
Entered by DANIEL HERNANDEZ SCRIBE 11/01/19 0654 Acting as scribe for:JORGE DAY MD ED Respiratory Problem - General Chief Complaint: Chest Pain Stated Complaint: SHORTNESS OF BREATH Time Seen by Provider: 11/01/19 06:34 Primary Care Provider: OLIVER ARTHUR MD [Primary Care Provider] - Follow up as needed Mode of Arrival: Ambulatory Information source: Patient Notes: This 64 year old male patient presents to the emergency department today with complaints of shortness of breath which began this morning at 3:00 AM. Patient states that his chest feels tight. EMS administered two sublingual nitroglycerin with no change in his chest tightness or shortness of breath. Patient states he took 2 breathing treatments this morning prior to arrival which helped a little bit. Patient states he is due for dialysis today between 10-11 AM. TRAVEL OUTSIDE OF THE [place] IN LAST 30 DAYS: No - Related Data Allergies/Adverse Reactions: calcitriol Allergy (Verified 10/04/19 20:15) itching Past Medical History - General Information source: Patient - Social History Smoking Status: Current Every Day Smoker Cigarette use (# per day): Yes Frequency of alcohol use: None Drug Abuse: None Lives with: Family Family History: Reviewed & Not Pertinent, CAD, CVA, DM, Hyperlipidemia, Hypertension, Malignancy Patient has suicidal ideation: No Patient has homicidal ideation: No - Past Medical History Cardiac Medical History: Reports: Hx Congestive Heart Failure - EF is 40%, with moderate diastolic dysfunction, Hx Coronary Artery Disease, Hx DVT, Hx Heart A ttack, Hx Hypercholesterolemia, Hx Hypertension, Hx Peripheral Vascular Disease, Hx Pulmonary Embolism Pulmonary Medical History: Reports: Hx Bronchitis, Hx COPD, Hx Pneumonia, Hx Respiratory Failure Neurological Medical History: Endocrine Medical History: Reports: Hx Diabetes Mellitus Type 2 - insulin dependent Renal/ Medical History: Reports: Hx End Stage Renal Disease - Dialysis MWF with Dr. 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, Reports Hx Musculoskeletal Trauma Psychiatric Medical History: Reports: Hx Depression Infectious Medical History: Reports: Hx HIV - noncompliant with meds Past Surgical History: Reports: Hx Orthopedic Surgery - bilateral amputation, R BKA, L AKA, Hx Vascular Surgery - left arm clot removed, IVC filter, thrombectomy 05/18/2018 left arm, Other - Tunnel graft right axillary femoral bypass, dialysis fistula LUE - Immunizations Immunizations up to date: Yes Hx Diphtheria, Pertussis, Tetanus Vaccination: Yes Hx Pneumococcal Vaccination: 07/21/10 Review of Systems - Review of Systems Constitutional: No symptoms reported EENT: No symptoms reported Cardiovascular: No symptoms reported Respiratory: See HPI, Short of breath, Other - chest feels tight Gastrointestinal: No symptoms reported Genitourinary: No symptoms reported Male Genitourinary: No symptoms reported Musculoskeletal: No symptoms reported Skin: No symptoms reported Hematologic/Lymphatic: No symptoms reported Neurological/Psychological: No symptoms reported -: Yes All other systems reviewed and negative Physical Exam - Vital signs Vitals: Temp Resp BP Pulse Ox 98.4 F 22 H 154/77 H 99 11/01/19 05:05 11/01/19 05:05 11/01/19 05:05 11/01/19 05:05 - Notes Notes: Physical Exam: General: Alert, appears at baseline. HEENT: Normocephalic. Atraumatic. PERRL. Extraocular movements intact. Oropharynx clear. Neck: Supple. Non-tender. Respiratory: No respiratory distress. Inspiratory and expiratory wheezing bilaterally. Minimal rhonchi. On arrival here he was saturating 98% on room air. Cardiovascular: Regular rate and rhythm. Abdominal: Normal Inspection. Non-tender. No distension. Normal Bowel Sounds. Back: No gross abnormalities. Extremities: Upper extremities: Normal inspection. Normal ROM. Lower extremities: Bilateral AKAs Neurological: Normal cognition. AAOx4. Normal speech. Psychological: Normal affect. Normal Mood. Skin: Warm. Dry. Normal color. Course - Re-evaluation Re-evalutation: 11/01/19 08:59 2 troponins are both in the 0.05 range, which is the patient's baseline. EKG did not show any acute changes. Chest x-ray does not show any pulmonary edema. I suspect this is just another episode of his wheezing which is a chronic problem. His chest pain is noncardiac, and that is also a chronic problem. 11/01/19 09:08 On reevaluation, at this time the patient's lungs are reasonably clear with a little bit of wheeze and rhonchi when he coughs. This is his baseline as he does have a chronic smoker's cough. His pulse ox is 100% on room air and he seems to be quite relaxed. He will be discharged home, he states he canceled his dialysis appointment for today and will do it tomorrow. He states he did not take any of his medications this morning so he needs to go home and take them. - Vital Signs Vital signs: Temp Pulse Resp BP Pulse Ox 98.4 F 14 164/92 H 100 11/01/19 05:05 11/01/19 09:01 11/01/19 09:01 11/01/19 09:01 - Laboratory Result Diagrams: 11/01/19 05:30 11/01/19 05:30 Laboratory results interpreted by me: 11/01/19 11/01/19 11/01/19 05:30 05:30 05:30 RBC 3.50 L Hgb 11.3 L Hct 32.7 L RDW 14.7 H PT 36.6 H BUN 66 H Creatinine 11.48 H Est GFR ( Amer) 5 L Est GFR (MDRD) Non-Af 4 L Glucose 117 H - Diagnostic Test Radiology reviewed: Image reviewed, Reports reviewed - Chest x-ray shows stable cardiac enlargement with no acute changes. There is some scarring in the right base which is a chronic finding. There is no pulmonary edema. - EKG Interpretation by Me EKG shows normal: Sinus rhythm, Pierce, Intervals, QRS Complexes, ST-T Waves Rate: Normal - 77 Rhythm: NSR, PVC's Pierce/QRS: Left axis deviation Voltage: Consistant with LVH When compared to previous EKG there are: No significant change Discharge - Discharge Clinical Impression: Wheezing, Chronic kidney disease requiring chronic dialysis, Excessive antic oagulation Chest pain Qualifiers: Chest pain type: unspecified Qualified Code(s): R07.9 - Chest pain, unspecified Condition: Stable Disposition: HOME, SELF-CARE Additional Instructions: Your chest x-ray today was clear. Your EKG does not show any acute changes. Your lab work shows your normal stable troponin levels. Your lung sounds did improve some with the breathing treatments. You should continue your breathing treatments regularly at home as needed for shortness of breath. Try to avoid cigarette smoke. Your INR today was 3.58, so you should skip today's dose of Coumadin. Follow-up with your dialysis doctors as needed. Referrals: OLIVER ARTHUR MD [Primary Care Provider] - Follow up as needed I personally performed the services described in the documentation, reviewed and edited the documentation which was dictated to the scribe in my presence, and it accurately records my words and actions.
[2019-11-01 09:38] VITALS: BP 158/98
== END 2019-11-01 09:58 | disposition home or self-care (01) ==
LOC: ER 05:00
DX: R06.2 Wheezing (principal); I13.0 Hypertensive heart and chronic kidney disease with heart failure and stage 1 through stage 4 chronic kidney disease, or unspecified chronic kidney disease; E11.22 Type 2 diabetes mellitus with diabetic chronic kidney disease; N18.9 Chronic kidney disease, unspecified; J44.9 Chronic obstructive pulmonary disease, unspecified; R07.9 Chest pain, unspecified; Z99.2 Dependence on renal dialysis; R06.02 Shortness of breath; R05 Cough; Z88.8 Allergy status to other drugs, medicaments and biological substances; F17.210 Nicotine dependence, cigarettes, uncomplicated; I50.9 Heart failure, unspecified; I25.10 Atherosclerotic heart disease of native coronary artery without angina pectoris; I25.2 Old myocardial infarction; Z79.4 Long term (current) use of insulin
CPT/HCPCS: 93005; 94640 ×2; 99285; 36415; 82553; 82550; 85025; 85610; 80053; 84484; 71045; 93010; A9270 ×2; J7620

== ENCOUNTER 2019-11-28 01:18 | Emergency (ER) | payer MEDICARE, MEDICAID ==
[2019-11-28 02:42] LABS: ABSOLUTE EOSINOPHILS # (AUTO) 0.4 10^3/uL (0.0-0.6); ABSOLUTE LYMPHOCYTES (AUTO) 3.6 10^3/uL (0.5-4.7); ABSOLUTE MONOCYTES (AUTO) 0.9 10^3/uL (0.1-1.4); ABSOLUTE NEUT (AUTO) 3.1 10^3/uL (1.7-8.2); BASOPHILS % (AUTO) 0.4 % (0-2); EOSINOPHILS % (AUTO) 5.2 % (0-6); HEMATOCRIT 32.7 % (37.9-51.0); HEMOGLOBIN 11.2 g/dL (13.5-17.0); LYMPHOCYTES % (AUTO) 45.2 % (13-45); MEAN CORPUSCULAR HEMOGLOBIN 32.6 pg (27.0-33.4); MEAN CORPUSCULAR HGB CONC 34.3 g/dL (32.0-36.0); MEAN CORPUSCULAR VOLUME 95 fl (80-97); PLATELET COUNT 195 10^3/uL (150-450); RED BLOOD COUNT 3.45 10^6/uL (4.35-5.55); RED CELL DISTRIBUTION WIDTH 14.5 % (11.5-14.0); SEGMENTED NEUTROPHILS % (AUTO) 38.2 % (42-78); TOTAL CELLS COUNTED % (AUTO) 100 %; WHITE BLOOD COUNT 8.1 10^3/uL (4.0-10.5)
--- NOTE | 2019-11-28 02:42 | RADIOLOGY REPORT (SQ) ---
CHEST 1 VIEW on 11/28/2019 at 2:16 AM CLINICAL INDICATION: Shortness of breath COMPARISON: 11/01/2019 FINDINGS: There is mild linear atelectasis or scarring in the left lower lobe. There is also linear opacity in the right upper lobe may represent an area of atelectasis and/or scarring. Lungs are otherwise clear. Cardiac, hilar and mediastinal contours are within normal limits. Pulmonary vascularity is within normal limits. IMPRESSION: Small bilateral areas of likely linear atelectasis and/or scarring with otherwise no acute disease.
[2019-11-28 03:03] LABS: ALBUMIN 4.1 g/dL (3.5-5.0); ALKALINE PHOSPHATASE 55 U/L (38-126); ANION GAP 11 (5-19); ASPARTATE AMINO TRANSFERASE 20 U/L (17-59); BILIRUBIN,DIRECT 0.1 mg/dL (0.0-0.4); BILIRUBIN,TOTAL 0.3 mg/dL (0.2-1.3); BLOOD UREA NITROGEN 41 mg/dL (7-20); CARBON DIOXIDE 28 mmol/L (22-30); CHLORIDE 98 mmol/L (98-107); CREATINE KINASE 66 U/L (55-170); GLUCOSE 95 mg/dL (75-110); POTASSIUM 5.4 mmol/L (3.6-5.0); TOTAL PROTEIN 7.2 g/dL (6.3-8.2)
[2019-11-28] MEDS ORDERED: NITROGLYCERIN 2% OINTMENT 1 GM PACKET TP ONE (03:14)
[2019-11-28] MEDS ORDERED: FUROSEMIDE INJ/PF 20 MG/2 ML SDV IV ONE (03:14)
[2019-11-28 03:15] LABS: CREATINE KINASE MB 2.06 ng/mL (<4.55)
[2019-11-28] MEDS ORDERED: MORPHINE SULFATE 10 MG/ML INJ IV ONE (03:15)
--- NOTE | 2019-11-28 03:16 | ER Document Report ---
ED General - General Mode of Arrival: Medic Information source: Patient TRAVEL OUTSIDE OF THE [place] IN LAST 30 DAYS: No <LANA CID - Last Filed: 11/28/19 05:37> <TRISTON GOMEZ JR - Last Filed: 11/28/19 08:03> - General Chief Complaint: Chest Pain Stated Complaint: CHEST PAIN Time Seen by Provider: 11/28/19 03:06 Primary Care Provider: LUIS CROW MD [Primary Care Provider] - Follow up as needed Notes: 64-year-old man presents to the emergency department with a history of shortness of breath which is worsened over the past 2 days. He has a known history of CHF and CAD. Patient is also a dialysis patient. He presents tonight with sudden worsening of shortness of breath with chest pain. EMS was called and patient was transported to the emergency department. Blood pressure was noted to be 180/94 with a heart rate of 102. Patient received aspirin, sublingual nitroglycerin x3 and an IV was started in the right forearm. Upon arrival to the emergency department patient continued to have some shortness of breath and a pain which he rates 8/10. He is history of end-stage renal disease on hemodialysis, (Friday) (LANA CID) - Related Data Allergies/Adverse Reactions: calcitriol Allergy (Verified 10/04/19 20:15) itching Past Medical History - General Information source: Patient - Social History Family History: Reviewed & Not Pertinent, CAD, CVA, DM, Hyperlipidemia, Hyper tension, Malignancy - Past Medical History Cardiac Medical History: Reports: Hx Congestive Heart Failure - EF is 40%, with moderate diastolic dysfunction, Hx Coronary Artery Disease, Hx DVT, Hx Heart Attack, Hx Hypercholesterolemia, Hx Hypertension, Hx Peripheral Vascular Disease, Hx Pulmonary Embolism Denies: Hx Atrial Fibrillation Pulmonary Medical History: Reports: Hx Bronchitis, Hx COPD, Hx Pneumonia, Hx Respiratory Failure Denies: Hx Asthma, Hx Sleep Apnea Neurological Medical History: Denies: Hx Migraine, Hx Seizures Endocrine Medical History: Reports: Hx Diabetes Mellitus Type 2 - insulin dependent. Denies: Hx Diabetes Mellitus Type 1, Hx Hyperthyroidism, Hx Hypothyroidism Renal/ Medical History: Reports: Hx End Stage Renal Disease - Dialysis MWF with Dr. Pablo Lowe, Hx Hemodialysis, Hx Renal Insufficiency. Denies: Hx Peritoneal Dialysis GI Medical History: Reports: Hx Gastroesophageal Reflux Disease. Denies: Hx Cirrhosis, Hx Crohn's Disease, Hx Hepatitis, Hx Ulcerative Colitis Musculoskeletal Medical History: Reports Hx Arthritis, Denies Hx Fibromyalgia, 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 bilat AKA, Reports Hx Musculoskeletal Trauma Skin Medical History: Denies Hx Eczema, Denies Hx Psoriasis Psychiatric Medical History: Reports: Hx Depression Traumatic Medical History: Denies: Hx Traumatic Brain Injury Infectious Medical History: Reports: Hx HIV - noncompliant with meds. Denies: Hx Hepatitis Past Surgical History: Reports: Hx Orthopedic Surgery - bilateral amputation, R BKA, L AKA, Hx Vascular Surgery - left arm clot removed, IVC filter, thrombectomy 05/18/2018 left arm, Other - Tunnel graft right axillary femoral bypass, dialysis fistula LUE - Immunizations Immunizations up to date: Yes Hx Diphtheria, Pertussis, Tetanus Vaccination: Yes Hx Pneumococcal Vaccination: 07/21/10 <LANA CID - Last Filed: 11/28/19 05:37> - Social History Smoking Status: Unknown if Ever Smoked Cigarette use (# per day): No Chew tobacco use (# tins/day): No Smoking Education Provided: No Drug Abuse: None Lives with: Family <TRISTON GOMEZ JR - Last Filed: 11/28/19 08:03> Review of Systems <LANA CID - Last Filed: 11/28/19 05:37> - Review of Systems Notes: Constitutional: Negative for fever. HENT: Negative for sore throat. Eyes: Negative for visual changes. Cardiovascular: + Chest pain. Respiratory: + shortness of breath. Gastrointestinal: Negative for abdominal pain, vomiting or diarrhea. Genitourinary: + Dialysis (Friday) Musculoskeletal: + Status post left AKA and right BKA. Skin: Negative for rash. Neurological: Negative for headaches, weakness or numbness. 10 point ROS negative except as marked above and in HPI. (LANA CID) Physical Exam <LANA CID - Last Filed: 11/28/19 05:37> - Vital signs Vitals: Temp 98.1 F 11/28/19 01:19 - Notes Notes: PHYSICAL EXAMINATION: Physical Exam: General: Well-nourished well-developed in no acute distress HEENT: NC/AT, pupils equal round and reactive to light, MM moist,nares clear, or opharynx clear, airway patent Neck: supple, no adenopathy, no masses. Good range of motion Lungs: clear, no wheezing, no rales no rhonchi CVS: Regular rate and rhythm no murmur gallop or rub Abdomen: Soft, active, nontender, no masses, no hepatosplenomegaly Ext: left AKA and right BKA. Neuro: Alert and responsive, moving all 4 extremities on command, cranial nerves intact, no focal findings Skin: Intact no open lesions, no rash PSYCH: Normal mood, normal affect. (LANA CID) Course - Laboratory Result Diagrams: 11/28/19 02:25 11/28/19 02:25 - Diagnostic Test Radiology reviewed: Image reviewed, Reports reviewed - Chest x-ray with small bilateral areas of atelectasis and/or scarring otherwise no acute findings. - EKG Interpretation by Ca EKG shows normal: Sinus rhythm - Normal sinus rhythm rate of 98, left axis deviation, LVH, no significant change compared to previous EKG dated 11/01/2019. <LANA CID - Last Filed: 11/28/19 05:37> - Laboratory Result Diagrams: 11/28/19 02:25 11/28/19 02:25 <TRISTON GOMEZ JR - Last Filed: 11/28/19 08:03> - Vital Signs Vital signs: Temp Pulse Resp BP Pulse Ox 98.2 F 94 18 177/99 H 95 11/28/19 04:59 11/28/19 04:59 11/28/19 04:59 11/28/19 06:00 11/28/19 04:59 - Laboratory Laboratory results interpreted by mt: 11/28/19 11/28/19 11/28/19 02:25 02:25 02:25 RBC 3.45 L Hgb 11.2 L Hct 32.7 L RDW 14.5 H Lymph % (Auto) 45.2 H Seg Neutrophils % 38.2 L Potassium 5.4 H BUN 41 H Creatinine 8.79 H Est GFR ( Amer) 7 L Est GFR (MDRD) Non-Af 6 L NT-Pro-B Natriuret Pep 90374 H Critical Care Note - Critical Care Note Total time excluding time spent on procedures (mins): 60 <TRISTON GOMEZ JR - Last Filed: 11/28/19 08:03> - Critical Care Note Comments: I spoke with Dr. Shah sprinkler repair technician about this patient at [phone] and he agrees with Imdur p.o. for hypertension and angina symptoms. The patient's troponins continue to be the same 0.072 (TRISTON GOMEZ JR) Discharge <JOSE ROBERTOLANA - Last Filed: 11/28/19 05:37> <TRISTON GOMEZ JR - Last Filed: 11/28/19 08:03> - Discharge Clinical Impression: Chronic kidney disease requiring chronic dialysis, Angina at rest Chest pain Qualifiers: Chest pain type: unspecified Qualified Code(s): R07.9 - Chest pain, unspecified Hypertension Qualifiers: Hypertension type: essential hypertension Qualified Code(s): I10 - Essential (primary) hypertension Condition: Good Disposition: HOME, SELF-CARE Instructions: Angina Episode ([facility]) Additional Instructions: Follow-up with personal doctor tomorrow call office and also leaf size picker prescription for Imdur take medicines as directed return to ER as needed and follow-up with your civil division deputy sheriff for your dialysis tomorrow. Prescriptions: Isosorbide Mononitrate [Imdur 30 mg Tablet.er] 30 mg PO DAILY #10 tab.er.24h Referrals: LUIS CROW MD [Primary Care Provider] - Follow up as needed
[2019-11-28 03:17] LABS: TROPONIN I 0.071 ng/mL
[2019-11-28] MEDS ORDERED: METOPROLOL TARTRATE PF/INJ 5 MG/5 ML SDV IV ONE (04:03)
[2019-11-28 07:49] VITALS: BP 166/99
[2019-11-28] MEDS ORDERED: ISOSORBIDE MONONITRATE 30 MG TAB.ER.24H PO ONE (08:02)
--- NOTE | 2019-11-28 09:55 | EKG REPORT ---
SEVERITY:- ABNORMAL ECG - SINUS RHYTHM LEFT ANTERIOR FASCICULAR BLOCK LEFT AXIS DEVIATION LEFT VENTRICULAR HYPERTROPHY : Confirmed by: Marco Young MD 28-Nov-2019 09:54:35
== END 2019-11-28 08:55 | disposition home or self-care (01) ==
LOC: ER 01:18
DX: I20.9 Angina pectoris, unspecified (principal); R07.9 Chest pain, unspecified; R06.02 Shortness of breath; E11.22 Type 2 diabetes mellitus with diabetic chronic kidney disease; I13.2 Hypertensive heart and chronic kidney disease with heart failure and with stage 5 chronic kidney disease, or end stage renal disease; I50.30 Unspecified diastolic (congestive) heart failure; N18.6 End stage renal disease; Z99.2 Dependence on renal dialysis; B20 Human immunodeficiency virus [HIV] disease; Z91.19 Patient's noncompliance with other medical treatment and regimen; Z89.612 Acquired absence of left leg above knee; Z89.511 Acquired absence of right leg below knee
CPT/HCPCS: 93005; 99291; 96374; 96375; 36415; 82553; 82550; 85025; 80053; 84484; 83880; 71045; 93010; A9270 ×2; J1940; J3490; J2270

== ENCOUNTER 2019-12-01 02:49 | Emergency (ER) | payer MEDICARE, MEDICAID ==
--- NOTE | 2019-12-01 03:46 | RADIOLOGY REPORT (SQ) ---
EXAM DESCRIPTION: X-ray single view chest. CLINICAL HISTORY: 64 years Male, chest pain COMPARISON: 11/28/2019 and 11/01/2019 TECHNIQUE: Single portable x-ray view of the chest performed on 12/01/2019 at 3:23 AM FINDINGS: The lungs are hyperinflated. There is slightly increased lucency in the right upper lung likely due to emphysema. There is stable mild bibasilar interstitial prominence more pronounced on the right. There is no evidence of a pneumothorax. The cardiac silhouette is stable and is mildly prominent. The mediastinal contours are normal. No acute osseous abnormality is identified. No focal soft tissue abnormalities are seen. There are surgical clips projecting over the superior lateral aspect of the right hemithorax. Lines and tubes: None. IMPRESSION: 1. No significant change when compared to the prior studies. There are emphysematous changes with mild bibasilar fibrosis. 2. Remote postsurgical changes projecting over the superolateral aspect of the right hemithorax. 3. Stable prominence of the cardiac silhouette.
[2019-12-01] MEDS ORDERED: MORPHINE SULFATE 10 MG/ML INJ IV ONE (04:44)
[2019-12-01 04:55] LABS: ABSOLUTE BASOPHILS # (AUTO) 0.1 10^3/uL (0.0-0.2); ABSOLUTE EOSINOPHILS # (AUTO) 0.4 10^3/uL (0.0-0.6); ABSOLUTE LYMPHOCYTES (AUTO) 3.6 10^3/uL (0.5-4.7); ABSOLUTE MONOCYTES (AUTO) 0.8 10^3/uL (0.1-1.4); ABSOLUTE NEUT (AUTO) 3.4 10^3/uL (1.7-8.2); BASOPHILS % (AUTO) 0.7 % (0-2); HEMATOCRIT 33.4 % (37.9-51.0); HEMOGLOBIN 11.6 g/dL (13.5-17.0); LYMPHOCYTES % (AUTO) 43.4 % (13-45); MEAN CORPUSCULAR HGB CONC 34.8 g/dL (32.0-36.0); MEAN CORPUSCULAR VOLUME 95 fl (80-97); MONOCYTES % (AUTO) 10.3 % (3-13); PLATELET COUNT 228 10^3/uL (150-450); RED BLOOD COUNT 3.52 10^6/uL (4.35-5.55); RED CELL DISTRIBUTION WIDTH 15.2 % (11.5-14.0); SEGMENTED NEUTROPHILS % (AUTO) 40.6 % (42-78); TOTAL CELLS COUNTED % (AUTO) 100 %; WHITE BLOOD COUNT 8.2 10^3/uL (4.0-10.5)
--- NOTE | 2019-12-01 05:59 | ER Document Report ---
ED Cardiac - General Mode of Arrival: Medic Information source: Patient TRAVEL OUTSIDE OF THE [place] IN LAST 30 DAYS: No <KAYLAH BHAGAT - Last Filed: 12/01/19 07:45> <SONJA ALARCON - Last Filed: 12/01/19 09:54> - General Chief Complaint: Chest Pain Stated Complaint: CHEST PAIN Time Seen by Provider: 12/01/19 03:40 Notes: 64-year-old male patient presenting to the emergency department chief complaint of chest pain. Patient reports chest pain ongoing for the last 24 hours intermittently. He is a dialysis patient. He states that he is supposed to have dialysis this morning at 10. He reports his last dialysis was 2 days ago however he did not stay for the entire session, he left 45 minutes early. Patient is also complaining of bilateral leg pain. He has a history of having bilateral amputations. He has been here multiple times with similar complaints. He denies any radiation of the pain, denies any associated nausea or shortness of breath. (KAYLAH BHAGAT) - Related Data Allergies/Adverse Reactions: calcitriol Allergy (Verified 10/04/19 20:15) itching Past Medical History - General Information source: Patient - Social History Smoking Status: Current Every Day Smoker Chew tobacco use (# tins/day): No Frequency of alcohol use: None Drug Abuse: None Family History: Reviewed & Not Pertinent, CAD, CVA, DM, Hyperlipidemia, Hyperte nsion, Malignancy Patient has homicidal ideation: No - Past Medical History Cardiac Medical History: Reports: Hx Congestive Heart Failure - EF is 40%, with moderate diastolic dysfunction, Hx Coronary Artery Disease, Hx DVT, Hx Heart Att ack, Hx Hypercholesterolemia, Hx Hypertension, Hx Peripheral Vascular Disease, Hx Pulmonary Embolism Denies: Hx Atrial Fibrillation Pulmonary Medical History: Reports: Hx Bronchitis, Hx COPD, Hx Pneumonia, Hx Respiratory Failure Denies: Hx Asthma, Hx Sleep Apnea Neurological Medical History: Denies: Hx Migraine, Hx Seizures Endocrine Medical History: Reports: Hx Diabetes Mellitus Type 2 - insulin dependent. Denies: Hx Diabetes Mellitus Type 1, Hx Hyperthyroidism, Hx Hypothyroidism Renal/ Medical History: Reports: Hx End Stage Renal Disease - Dialysis MWF with Dr. Pablo Lowe, Hx Hemodialysis, Hx Renal Insufficiency. Denies: Hx Peritoneal Dialysis GI Medical History: Reports: Hx Gastroesophageal Reflux Disease. Denies: Hx Cirrhosis, Hx Crohn's Disease, Hx Hepatitis, Hx Ulcerative Colitis Musculoskeletal Medical History: Reports Hx Arthritis, Denies Hx Fibromyalgia, 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 bilat AKA, Reports Hx Musculoskeletal Trauma Skin Medical History: Denies Hx Eczema, Denies Hx Psoriasis Psychiatric Medical History: Reports: Hx Depression Traumatic Medical History: Denies: Hx Traumatic Brain Injury Infectious Medical History: Reports: Hx HIV - noncompliant with meds. Denies: Hx Hepatitis Past Surgical History: Reports: Hx Orthopedic Surgery - bilateral amputation, R BKA, L AKA, Hx Vascular Surgery - left arm clot removed, IVC filter, thrombectomy 05/18/2018 left arm, Other - Tunnel graft right axillary femoral bypass, dialysis fistula LUE - Immunizations Immunizations up to date: Yes Hx Diphtheria, Pertussis, Tetanus Vaccination: Yes Hx Pneumococcal Vaccination: 07/21/10 <KAYLAH BHAGAT - Last Filed: 12/01/19 07:45> Review of Systems - Review of Systems Cardiovascular: See HPI Musculoskeletal: See HPI -: Yes All other systems reviewed and negative <KAYLAH BHAGAT - Last Filed: 12/01/19 07:45> Physical Exam <KAYLAH BHAGAT - Last Filed: 12/01/19 07:45> - Vital signs Vitals: Resp BP Pulse Ox 15 164/98 H 94 12/01/19 03:08 12/01/19 03:08 12/01/19 03:08 - Notes Notes: Physical Exam: General: Well-nourished well-developed in no acute distress HEENT: NC/AT, pupils equal round and reactive to light, MM moist, nares clear, oropharynx clear, airway patent Neck: supple, no adenopathy, no masses. Good range of motion Lungs: clear, no wheezing, no rales no rhonchi CVS: Regular rate and rhythm no murmur gallop or rub Abdomen: Soft, active, nontender, no masses, no hepatosplenomegaly Ext: left AKA and right BKA. Neuro: Alert and responsive, moving all 4 extremities on command, cranial nerves intact, no focal findings Skin: Intact no open lesions, no rash PSYCH: Normal mood, normal affect. (KAYLAH BHAGAT) Course - Laboratory Result Diagrams: 12/01/19 04:30 12/01/19 06:23 <KAYLAH BHAGAT - Last Filed: 12/01/19 07:45> - Laboratory Result Diagrams: 12/01/19 04:30 12/01/19 06:23 <SONJA ALARCON - Last Filed: 12/01/19 09:54> - Re-evaluation Re-evalutation: Laboratory 12/01/19 12/01/19 12/01/19 04:30 04:30 04:30 WBC 8.2 RBC 3.52 L Hgb 11.6 L Hct 33.4 L MCV 95 MCH 33.0 MCHC 34.8 RDW 15.2 H Plt Count 228 Lymph % (Auto) 43.4 Anderson % (Auto) 10.3 Eos % (Auto) 5.0 Baso % (Auto) 0.7 Absolute Neuts (auto) 3.4 Absolute Lymphs (auto) 3.6 Absolute Monos (auto) 0.8 Absolute Eos (auto) 0.4 Absolute Basos (auto) 0.1 Seg Neutrophils % 40.6 L Sodium Cancelled Potassium Cancelled Chloride Cancelled Carbon Dioxide Cancelled Anion Gap Cancelled BUN Cancelled Creatinine Cancelled Est GFR ( Amer) Cancelled Est GFR (Non-Af Amer) Cancelled Est GFR (MDRD) Non-Af Cancelled Glucose Cancelled Calcium Cancelled Total Bilirubin Cancelled Direct Bilirubin Cancelled Neonat Total Bilirubin Cancelled Neonat Direct Bilirubin Cancelled Neonat Indirect Bili Cancelled AST Cancelled ALT Cancelled Alkaline Phosphatase Cancelled Creatine Kinase Cancelled CK-MB (CK-2) Cancelled Troponin I Cancelled NT-Pro-B Natriuret Pep Cancelled Total Protein Cancelled Albumin Cancelled EGFR Cancelled 12/01/19 12/01/19 12/01/19 06:23 06:23 06:23 WBC RBC Hgb Hct MCV MCH MCHC RDW Plt Count Lymph % (Auto) Anderson % (Auto) Eos % (Auto) Baso % (Auto) Absolute Neuts (auto) Absolute Lymphs (auto) Absolute Monos (auto) Absolute Eos (auto) Absolute Basos (auto) Seg Neutrophils % Sodium 138.1 Potassium 5.3 H Chloride 101 Carbon Dioxide 21 L Anion Gap 16 BUN 55 H Creatinine 10.34 H Est GFR ( Amer) 6 L Est GFR (Non-Af Amer) Est GFR (MDRD) Non-Af 5 L Glucose 97 Calcium 9.6 Total Bilirubin 0.4 Direct Bilirubin 0.2 Neonat Total Bilirubin Not Reportable Neonat Direct Bilirubin Not Reportable Neonat Indirect Bili Not Reportable AST 21 ALT 12 Alkaline Phosphatase 55 Creatine Kinase 80 CK-MB (CK-2) 2.60 Troponin I Cancelled 0.097 NT-Pro-B Natriuret Pep 56762 H Total Protein 7.3 Albumin 4.2 EGFR Chest X-Ray 12/01/19 02:57 IMPRESSION: 1. No significant change when compared to the prior studies. There are emphysematous changes with mild bibasilar fibrosis. 2. Remote postsurgical changes projecting over the superolateral aspect of the right hemithorax. 3. Stable prominence of the cardiac silhouette. EKG reviewed, shows a sinus rhythm, no ST segment elevations or depressions. Unchanged from previous EKG. Initial troponin is negative. Will await repeat troponin and if negative patient will be discharged home. Patient does report some improvement of his symptoms after administration of IV morphine. 12/01/19 07:45 Patient will have repeat troponin drawn, handoff will be given to Sonja jeronimo. (KAYLAH BHAGAT) 12/01/19 08:00 Report received on patient 12/01/19 09:49 Second troponin is decreased from first. Patient has dialysis scheduled this morning. Will discharge to go to his dialysis. I did discuss this with him. Patient states that he will likely not go to his dialysis today but will go tomorrow. Patient states he is not on pain medication at home normally. I did encourage the patient to try to reschedule his dialysis appointment for today he refuses. I did inform the patient that I would be happy to call his liver trimmer to discuss it with him and he declined stating he does not wish his liver trimmer to be called today but he will go to dialysis tomorrow. He is aware of the risks of increased abnormalities in his labs with the potential for disability or 12/01/19 09:53 (SONJA ALARCON) - Vital Signs Vital signs: Temp Pulse Resp BP Pulse Ox 98.3 F 16 171/98 H 96 12/01/19 03:50 12/01/19 09:01 12/01/19 09:00 12/01/19 09:01 - Laboratory Laboratory results interpreted by me: 12/01/19 12/01/19 12/01/19 04:30 06:23 06:23 RBC 3.52 L Hgb 11.6 L Hct 33.4 L RDW 15.2 H Seg Neutrophils % 40.6 L Potassium 5.3 H Carbon Dioxide 21 L BUN 55 H Creatinine 10.34 H Est GFR ( Amer) 6 L Est GFR (MDRD) Non-Af 5 L NT-Pro-B Natriuret Pep 94797 H Discharge <KAYLAH BHAGAT - Last Filed: 12/01/19 07:45> <SONJA ALARCON - Last Filed: 12/01/19 09:54> - Discharge Clinical Impression: Chest pain Qualifiers: Chest pain type: unspecified Qualified Code(s): R07.9 - Chest pain, unspecified Leg pain Qualifiers: Laterality: bilateral Qualified Code(s): M79.604 - Pain in right leg; M79.605 - Pain in left leg Condition: Stable Disposition: HOME, SELF-CARE Additional Instructions: Follow-up with your liver trimmer today to discuss your leg pain issues and medical management of same. Discuss also your chest pain issues with your liver trimmer and cardiology group. You should try to reschedule your dialysis appointment today if possible. Return for any concerns
[2019-12-01 06:59] LABS: ALBUMIN 4.2 g/dL (3.5-5.0); ALKALINE PHOSPHATASE 55 U/L (38-126); ANION GAP 16 (5-19); ASPARTATE AMINO TRANSFERASE 21 U/L (17-59); BILIRUBIN,DIRECT 0.2 mg/dL (0.0-0.4); BILIRUBIN,TOTAL 0.4 mg/dL (0.2-1.3); BLOOD UREA NITROGEN 55 mg/dL (7-20); CALCIUM 9.6 mg/dL (8.4-10.2); CARBON DIOXIDE 21 mmol/L (22-30); CHLORIDE 101 mmol/L (98-107); CREATINE KINASE 80 U/L (55-170); GLUCOSE 97 mg/dL (75-110); POTASSIUM 5.3 mmol/L (3.6-5.0); TOTAL PROTEIN 7.3 g/dL (6.3-8.2)
[2019-12-01 07:11] LABS: CREATINE KINASE MB 2.6 ng/mL (<4.55)
[2019-12-01 07:12] LABS: TROPONIN I 0.097 ng/mL
--- NOTE | 2019-12-01 08:36 | EKG REPORT ---
SEVERITY:- ABNORMAL ECG - SINUS RHYTHM LEFT ANTERIOR FASCICULAR BLOCK LEFT VENTRICULAR HYPERTROPHY BORDERLINE PROLONGED QT INTERVAL : Confirmed by: Beulah Storm 01-Dec-2019 08:36:28
[2019-12-01] MEDS ORDERED: OXYCODONE-ACETAMINOPHEN 5-325 MG TABLET PO ONE (09:52)
[2019-12-01 11:02] VITALS: BP 189/108
== END 2019-12-01 11:05 | disposition home or self-care (01) ==
LOC: ER 02:49
DX: R07.9 Chest pain, unspecified (principal); I13.2 Hypertensive heart and chronic kidney disease with heart failure and with stage 5 chronic kidney disease, or end stage renal disease; I50.32 Chronic diastolic (congestive) heart failure; N18.6 End stage renal disease; E11.22 Type 2 diabetes mellitus with diabetic chronic kidney disease; Z99.2 Dependence on renal dialysis; Z91.15 Patient's noncompliance with renal dialysis; M79.604 Pain in right leg; M79.605 Pain in left leg; E11.51 Type 2 diabetes mellitus with diabetic peripheral angiopathy without gangrene; Z21 Asymptomatic human immunodeficiency virus [HIV] infection status; J44.9 Chronic obstructive pulmonary disease, unspecified; I25.10 Atherosclerotic heart disease of native coronary artery without angina pectoris; I25.2 Old myocardial infarction; F17.200 Nicotine dependence, unspecified, uncomplicated; Z89.511 Acquired absence of right leg below knee; Z89.612 Acquired absence of left leg above knee; Z88.8 Allergy status to other drugs, medicaments and biological substances; Z79.899 Other long term (current) drug therapy
CPT/HCPCS: 93005; 99284; 96374; 36415; 82553; 82550; 85025; 80053; 84484; 83880; 71045; 93010; J2270; A9270

== ENCOUNTER 2019-12-02 21:47 | Emergency (ER) | payer MEDICARE, MEDICAID ==
--- NOTE | 2019-12-02 22:59 | EKG REPORT ---
SEVERITY:- ABNORMAL ECG - SINUS TACHYCARDIA LEFT ANTERIOR FASCICULAR BLOCK LVH WITH SECONDARY REPOLARIZATION ABNORMALITY CONSIDER ANTERIOR INFARCT : Confirmed by: Beulah Storm 02-Dec-2019 22:59:05
[2019-12-02] MEDS ORDERED: CLONIDINE HCL 0.2 MG TABLET PO ONE (23:25)
--- NOTE | 2019-12-02 23:32 | ER Document Report ---
ED General - General Chief Complaint: Chest Pain > 30 Stated Complaint: CHEST PAIN Time Seen by Provider: 12/02/19 23:07 TRAVEL OUTSIDE OF THE [place] IN LAST 30 DAYS: No - HPI Notes: Patient is a 64-year-old gentleman with history of HIV, CAD, end-stage renal disease, who presents the emergency department for evaluation of chest pain and pain in his bilateral stumps. Patient states he has had chest pain "all day" intermittently. He states that nothing seems to bring it on, laying down made it feel better. He describes it as a tightness. He stated he felt short of breath. He states intermittently the chest pain went from the substernal region into the left arm. Patient also states that he feels tight in his stumps. He really cannot divulge any further information about this for me. He states he believes he has been taking his medications as prescribed, but is unsure as to whether or not he took all of his evening medications. Patient also notes that his last dialysis was Friday. He is normally a Friday, Friday, Friday dialysis candidate. He states he was in the emergency department on Friday, and did not reschedule his dialysis. He did not go today. Patient does report a cough, he states he has had that for the last several months. - Related Data Allergies/Adverse Reactions: calcitriol Allergy (Verified 12/02/19 21:52) itching Past Medical History - General Information source: Patient - Social History Smoking Status: Current Every Day Smoker Frequency of alcohol use: None Family History: Reviewed & Not Pertinent, CAD, CVA, DM, Hyperlipidemia, Hypertension, Malignancy Patient has homicidal ideation: No - Past Medical History Cardiac Medical History: Reports: Hx Congestive Heart Failure - EF is 40%, with moderate diastolic dysfunction, Hx Coronary Artery Disease, Hx DVT, Hx Heart Attack, Hx Hypercholesterolemia, Hx Hypertension, Hx Peripheral Vascular Disease, Hx Pulmonary Embolism Denies: Hx Atrial Fibrillation Pulmonary Medical History: Reports: Hx Bronchitis, Hx COPD, Hx Pneumonia, Hx Respiratory Failure Denies: Hx Asthma, Hx Sleep Apnea Neurological Medical History: Denies: Hx Migraine, Hx Seizures Endocrine Medical History: Reports: Hx Diabetes Mellitus Type 2 - insulin dependent. Denies: Hx Diabetes Mellitus Type 1, Hx Hyperthyroidism, Hx Hypothyroidism Renal/ Medical History: Reports: Hx End Stage Renal Disease - Dialysis MWF with Dr. Pablo Lowe, Hx Hemodialysis, Hx Renal Insufficiency. Denies: Hx Peritoneal Dialysis GI Medical History: Reports: Hx Gastroesophageal Reflux Disease. Denies: Hx Cirrhosis, Hx Crohn's Disease, Hx Hepatitis, Hx Ulcerative Colitis Musculoskeletal Medical History: Reports Hx Arthritis, Denies Hx Fibromyalgia, 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 bilat AKA, Reports Hx Musculoskeletal Trauma Skin Medical History: Denies Hx Eczema, Denies Hx Psoriasis Psychiatric Medical History: Reports: Hx Depression Traumatic Medical History: Denies: Hx Traumatic Brain Injury Infectious Medical History: Reports: Hx HIV - noncompliant with meds. Denies: Hx Hepatitis Past Surgical History: Reports: Hx Orthopedic Surgery - bilateral amputation, R BKA, L AKA, Hx Vascular Surgery - left arm clot removed, IVC filter, thrombectomy 05/18/2018 left arm, Other - Tunnel graft right axillary femoral bypass, dialysis fistula LUE - Immunizations Immunizations up to date: Yes Hx Diphtheria, Pertussis, Tetanus Vaccination: Yes Hx Pneumococcal Vaccination: 07/21/10 Review of Systems - Review of Systems Cardiovascular: See HPI Respiratory: See HPI Musculoskeletal: See HPI -: Yes All other systems reviewed and negative Physical Exam - Vital signs Vitals: Pulse Ox 96 12/02/19 21:48 - Notes Notes: This is a 64-year-old male who appears her stated age in no acute distress. Head is normocephalic and atraumatic, pupils are equal, reactive to light. Onychosis moist. Uvula is midline. Neck supple with out meningismus. Heart regular rate and rhythm, lungs show occasional rhonchi but no wheezes or rales noted. Abdomen soft, nontender, normoactive bowel sounds. Patient has a BKA on the right, AKA on the left. Examination of the stump yields no skin breakdown. No significant erythema. Skin is warm and dry. Course - Re-evaluation Re-evalutation: 12/02/19 23:29 Patient presents to the emergency department for evaluation of chest pain. He began aspirin nitroglycerin in route by EMS. The patient states the nitroglycerin helped his pain, he does not currently have any chest pain at this time. The patient asks me specifically for morphine or Dilaudid for his pain. His EKG failed to show any acute changes compared to his prior study of just a few days ago. Laboratory investigations are ordered, chest x-ray ordered as wel l. Patient is stable at this time, we will continue to monitor. 12/03/19 03:07 Patient's chest pain does not repeat. He continues to complain of pain in his stumps. His repeat troponin was actually decreased. He has a chronic elevation, likely secondary to his CKD. He has hyper kalemia noted. The patient was given dextrose, insulin, Veltassa. He ultimately needs dialyzed. He missed dialysis both Friday and . He is scheduled to have dialysis in less than 4 hours. He has been seen multiple times in the past for pain in his chest, pain in his stump. His blood pressure responded well to the clonidine. He is not fluid overloaded at this time. He is stable and amenable to discharge. He understands the importance of going to dialysis this morning, as it is stressed with him greatly, and the concerns about his potassium continuing to rise were explained in great detail as well. He voiced understanding of the importance of going to dialysis this morning. Otherwise he is to follow-up with primary care, return to the emergency department with worsening or new concerning symptoms of any sort. - Vital Signs Vital signs: Temp Pulse Resp BP Pulse Ox 98.6 F 19 208/112 H 92 12/02/19 21:55 12/02/19 23:31 12/02/19 23:31 12/02/19 23:31 - Laboratory Result Diagrams: 12/02/19 23:35 12/02/19 23:35 Laboratory results interpreted by me: 12/02/19 12/02/19 12/02/19 23:35 23:35 23:35 RBC 3.48 L Hgb 11.6 L Hct 32.9 L RDW 14.5 H PT 43.2 H Potassium 5.9 H Chloride 97 L BUN 74 H Creatinine 13.26 H Est GFR ( Amer) 5 L Est GFR (MDRD) Non-Af 4 L - Diagnostic Test Radiology reviewed: Image reviewed, Reports reviewed - EKG Interpretation by Me Additional EKG results interpreted by me: 12/02/19 23:31 Sinus tachycardia with a rate of 105 bpm. Left axis deviation. Left anterior fascicular block. LVH with strain. No ST elevation. No change when compared to prior study. Discharge - Discharge Clinical Impression: Hyperkalemia, Noncompliance, Supratherapeutic INR Chest pain Qualifiers: Chest pain type: unspecified Qualified Code(s): R07.9 - Chest pain, unspecified Condition: Stable Disposition: HOME, SELF-CARE Instructions: Chest Pain of Unclear Cause ([facility]), High Blood Pressure, Requiring Treatment ([facility]), Kidney Failure ([facility]) Additional Instructions: It is very important that you go to dialysis as scheduled this morning. Your po tassium was high, this was treated, but you need dialysis to ultimately treat it. No clear cause was found for your chest pain today, but your cardiac enzymes look normal. Your INR was actually mildly elevated. Please follow-up with your primary care provider in regards to this. Return to the emergency department for worsening or new concerning symptoms of any sort.
--- NOTE | 2019-12-02 23:49 | RADIOLOGY REPORT (SQ) ---
EXAM DESCRIPTION: XR CHEST 1 VIEW COMPLETED DATE/TME: 12/02/2019 21:54 CLINICAL HISTORY: 64 years Male cp COMPARISON: 12/01/2019 FINDINGS: The cardiomediastinal silhouette appears unchanged.. No consolidating infiltrates or pleural effusions. No pneumothorax. IMPRESSION: No acute abnormality is identified.
[2019-12-02 23:51] LABS: ABSOLUTE BASOPHILS # (AUTO) 0.1 10^3/uL (0.0-0.2); ABSOLUTE EOSINOPHILS # (AUTO) 0.3 10^3/uL (0.0-0.6); ABSOLUTE LYMPHOCYTES (AUTO) 3.1 10^3/uL (0.5-4.7); ABSOLUTE MONOCYTES (AUTO) 0.8 10^3/uL (0.1-1.4); ABSOLUTE NEUT (AUTO) 4.3 10^3/uL (1.7-8.2); BASOPHILS % (AUTO) 0.7 % (0-2); HEMATOCRIT 32.9 % (37.9-51.0); HEMOGLOBIN 11.6 g/dL (13.5-17.0); MEAN CORPUSCULAR HEMOGLOBIN 33.2 pg (27.0-33.4); MEAN CORPUSCULAR HGB CONC 35.1 g/dL (32.0-36.0); MEAN CORPUSCULAR VOLUME 95 fl (80-97); MONOCYTES % (AUTO) 9.8 % (3-13); PLATELET COUNT 224 10^3/uL (150-450); RED BLOOD COUNT 3.48 10^6/uL (4.35-5.55); RED CELL DISTRIBUTION WIDTH 14.5 % (11.5-14.0); SEGMENTED NEUTROPHILS % (AUTO) 49.5 % (42-78); TOTAL CELLS COUNTED % (AUTO) 100 %; WHITE BLOOD COUNT 8.7 10^3/uL (4.0-10.5)
[2019-12-02 23:56] LABS: PROTHROMBIN TIME 43.2 SEC (11.4-15.4)
[2019-12-03 00:18] LABS: ALBUMIN 4.4 g/dL (3.5-5.0); ALKALINE PHOSPHATASE 55 U/L (38-126); ANION GAP 19 (5-19); ASPARTATE AMINO TRANSFERASE 20 U/L (17-59); BILIRUBIN,DIRECT 0.2 mg/dL (0.0-0.4); BILIRUBIN,TOTAL 0.4 mg/dL (0.2-1.3); BLOOD UREA NITROGEN 74 mg/dL (7-20); CALCIUM 9.5 mg/dL (8.4-10.2); CARBON DIOXIDE 23 mmol/L (22-30); CHLORIDE 97 mmol/L (98-107); CREATINE KINASE 83 U/L (55-170); GLUCOSE 93 mg/dL (75-110); POTASSIUM 5.9 mmol/L (3.6-5.0); TOTAL PROTEIN 7.6 g/dL (6.3-8.2)
[2019-12-03 00:28] LABS: CREATINE KINASE MB 2.59 ng/mL (<4.55)
[2019-12-03 00:33] LABS: TROPONIN I 0.085 ng/mL
[2019-12-03] MEDS ORDERED: DEXTROSE 50%-WATER 25 GM/50 ML DISP.SYRIN IV ONE (00:35)
[2019-12-03] MEDS ORDERED: INSULIN REG, HUMAN 100 UNIT/ML 3 ML VIAL (PYX) IV ONE (00:35)
[2019-12-03] MEDS ORDERED: PATIROMER 8.4 GM SUSP PACKET PO ONE (00:35)
[2019-12-03] MEDS ORDERED: PATIROMER 8.4 GM SUSP PACKET ONE (01:24)
[2019-12-03 03:15] VITALS: BP 196/97
== END 2019-12-03 03:35 | disposition home or self-care (01) ==
LOC: ER 21:47
DX: R07.89 Other chest pain (principal); E87.5 Hyperkalemia; I13.2 Hypertensive heart and chronic kidney disease with heart failure and with stage 5 chronic kidney disease, or end stage renal disease; E11.22 Type 2 diabetes mellitus with diabetic chronic kidney disease; N18.6 End stage renal disease; I50.32 Chronic diastolic (congestive) heart failure; Z99.2 Dependence on renal dialysis; Z91.15 Patient's noncompliance with renal dialysis; E11.51 Type 2 diabetes mellitus with diabetic peripheral angiopathy without gangrene; M79.604 Pain in right leg; M79.605 Pain in left leg; R00.0 Tachycardia, unspecified; I25.10 Atherosclerotic heart disease of native coronary artery without angina pectoris; I44.4 Left anterior fascicular block; I25.2 Old myocardial infarction; Z21 Asymptomatic human immunodeficiency virus [HIV] infection status; Z89.511 Acquired absence of right leg below knee; Z89.612 Acquired absence of left leg above knee
CPT/HCPCS: 93005; 99285; 96374; 36415; 82553; 82550; 85025; 85610; 80053; 84484; 71045; 93010; A9270 ×3; J3490; J1815

== ENCOUNTER → 2020-01-05 | Outpatient (CLI) | payer MEDICARE, MEDICAID ==
[2020-01-05 11:44] LABS: ABSOLUTE BASOPHILS # (AUTO) 0.1 10^3/uL (0.0-0.2); ABSOLUTE EOSINOPHILS # (AUTO) 0.6 10^3/uL (0.0-0.6); ABSOLUTE LYMPHOCYTES (AUTO) 3.8 10^3/uL (0.5-4.7); ABSOLUTE NEUT (AUTO) 3.3 10^3/uL (1.7-8.2); BASOPHILS % (AUTO) 0.6 % (0-2); EOSINOPHILS % (AUTO) 6.6 % (0-6); HEMATOCRIT 34.6 % (37.9-51.0); HEMOGLOBIN 11.9 g/dL (13.5-17.0); LYMPHOCYTES % (AUTO) 43.5 % (13-45); MEAN CORPUSCULAR HEMOGLOBIN 33.4 pg (27.0-33.4); MEAN CORPUSCULAR HGB CONC 34.3 g/dL (32.0-36.0); MEAN CORPUSCULAR VOLUME 97 fl (80-97); MONOCYTES % (AUTO) 11.7 % (3-13); PLATELET COUNT 203 10^3/uL (150-450); RED BLOOD COUNT 3.56 10^6/uL (4.35-5.55); RED CELL DISTRIBUTION WIDTH 14.8 % (11.5-14.0); SEGMENTED NEUTROPHILS % (AUTO) 37.6 % (42-78); TOTAL CELLS COUNTED % (AUTO) 100 %; WHITE BLOOD COUNT 8.7 10^3/uL (4.0-10.5)
[2020-01-05 11:59] LABS: ALBUMIN 4.2 g/dL (3.5-5.0); ALKALINE PHOSPHATASE 62 U/L (38-126); ANION GAP 14 (5-19); ASPARTATE AMINO TRANSFERASE 20 U/L (17-59); BILIRUBIN,DIRECT 0.2 mg/dL (0.0-0.4); BILIRUBIN,TOTAL 0.4 mg/dL (0.2-1.3); BLOOD UREA NITROGEN 34 mg/dL (7-20); CALCIUM 9.9 mg/dL (8.4-10.2); CARBON DIOXIDE 25 mmol/L (22-30); CHLORIDE 99 mmol/L (98-107); GLUCOSE 71 mg/dL (75-110); POTASSIUM 5.1 mmol/L (3.6-5.0); TOTAL PROTEIN 7.3 g/dL (6.3-8.2)
== END ==
LOC: OD 10:37
PROVIDERS: ATTEND Nurse Practitioner
DX: Z21 Asymptomatic human immunodeficiency virus [HIV] infection status (principal)
CPT/HCPCS: 36415; 80053; 85025; 86361

== ENCOUNTER 2020-01-16 09:42 | Emergency (ER) | payer MEDICARE, MEDICAID ==
[2020-01-16 10:31] LABS: ABSOLUTE BASOPHILS # (AUTO) 0.1 10^3/uL (0.0-0.2); ABSOLUTE EOSINOPHILS # (AUTO) 0.4 10^3/uL (0.0-0.6); ABSOLUTE LYMPHOCYTES (AUTO) 3.2 10^3/uL (0.5-4.7); ABSOLUTE MONOCYTES (AUTO) 0.8 10^3/uL (0.1-1.4); BASOPHILS % (AUTO) 0.8 % (0-2); EOSINOPHILS % (AUTO) 5.1 % (0-6); HEMATOCRIT 32.7 % (37.9-51.0); HEMOGLOBIN 11.2 g/dL (13.5-17.0); LYMPHOCYTES % (AUTO) 37.1 % (13-45); MEAN CORPUSCULAR HEMOGLOBIN 33.1 pg (27.0-33.4); MEAN CORPUSCULAR HGB CONC 34.3 g/dL (32.0-36.0); MEAN CORPUSCULAR VOLUME 97 fl (80-97); MONOCYTES % (AUTO) 9.7 % (3-13); PLATELET COUNT 231 10^3/uL (150-450); RED BLOOD COUNT 3.38 10^6/uL (4.35-5.55); RED CELL DISTRIBUTION WIDTH 15.4 % (11.5-14.0); SEGMENTED NEUTROPHILS % (AUTO) 47.3 % (42-78); TOTAL CELLS COUNTED % (AUTO) 100 %; WHITE BLOOD COUNT 8.5 10^3/uL (4.0-10.5)
--- NOTE | 2020-01-16 10:33 | RADIOLOGY REPORT (SQ) ---
EXAM DESCRIPTION: CHEST SINGLE VIEW IMAGES COMPLETED DATE/TIME: 01/16/2020 10:22 am REASON FOR STUDY: chest pain COMPARISON: Chest x-ray 12/02/2019, 12/01/2019, 08/03/2019. EXAM PARAMETERS: NUMBER OF VIEWS: One view. TECHNIQUE: Single frontal radiographic view of the chest acquired. RADIATION DOSE: NA LIMITATIONS: None. FINDINGS: LUNGS AND PLEURA: No consolidation, pneumothorax or pleural effusion. Mild bibasilar atel ectasis. MEDIASTINUM AND HILAR STRUCTURES: No masses. Contour normal. HEART AND VASCULAR STRUCTURES: The heart is enlarged. There is no overt vascular congestion . BONES: Multilevel degenerative changes at the spine. HARDWARE: Surgical clips overlying the right upper hemithorax. IMPRESSION: Cardiomegaly. Mild bibasilar atelectasis. TECHNICAL DOCUMENTATION: JOB ID: [id number] 2010 [employer]- All Rights Reserved Reading location - IP/workstation name: [email or web address]
[2020-01-16 10:47] LABS: ALBUMIN 4.1 g/dL (3.5-5.0); ALKALINE PHOSPHATASE 55 U/L (38-126); ANION GAP 13 (5-19); ASPARTATE AMINO TRANSFERASE 23 U/L (17-59); BILIRUBIN,DIRECT 0.2 mg/dL (0.0-0.4); BILIRUBIN,TOTAL 0.4 mg/dL (0.2-1.3); BLOOD UREA NITROGEN 44 mg/dL (7-20); CALCIUM 9.8 mg/dL (8.4-10.2); CARBON DIOXIDE 25 mmol/L (22-30); CHLORIDE 99 mmol/L (98-107); CREATINE KINASE 93 U/L (55-170); GLUCOSE 102 mg/dL (75-110); POTASSIUM 5.7 mmol/L (3.6-5.0); TOTAL PROTEIN 7.2 g/dL (6.3-8.2)
[2020-01-16] MEDS ORDERED: SODIUM POLYSTYRENE SULFONATE 15 GM/60 ML PO ONE ×2 (10:55→13:45)
[2020-01-16 10:59] LABS: CREATINE KINASE MB 3.08 ng/mL (<4.55)
[2020-01-16 11:00] LABS: INTERNATIONAL RATION (INR) 3.94; PROTHROMBIN TIME 39.5 SEC (11.4-15.4)
[2020-01-16 11:01] LABS: TROPONIN I 0.103 ng/mL
[2020-01-16 14:08] VITALS: BP 145/92
--- NOTE | 2020-01-16 18:37 | EKG REPORT ---
SEVERITY:- ABNORMAL ECG - SINUS RHYTHM LEFT VENTRICULAR HYPERTROPHY : Confirmed by: Beulah Storm 16-Jan-2020 18:36:50
--- NOTE | 2020-01-18 10:34 | ER Document Report ---
Entered by HARITHA LAMBERT SCRIBE 01/16/20 1044 Acting as scribe for:JORGE DAY MD ED Respiratory Problem - General Chief Complaint: Chest Pain Stated Complaint: CHEST PAIN Time Seen by Provider: 01/16/20 10:22 Primary Care Provider: LUIS CROW MD [Primary Care Provider] - Follow up as needed Information source: Patient Notes: This 64 year old male patient presents to the emergency department today with left chest pain that began this morning x4.5 hours ago. Patient reports a congested cough for the past x1 week and now there is pain when he coughs. Pa katarina states he has had a mild fever of 99.3 F and states there is tightness in his legs. EMS administered x2 nitroglycerin sprays and aspirin hse specialist, which has reduced the patient's chest pain. Patient states he is on dialysis, with his last appointment being x2 days ago, and his next is tomorrow. TRAVEL OUTSIDE OF THE [place] IN LAST 30 DAYS: No - Related Data Allergies/Adverse Reactions: calcitriol Allergy (Verified 01/16/20 10:07) itching Home Medications: coumadin, calcium, carvedilol, catapres, clonidine, lasix, dyralazine, isosorbide mono, lovenox, nifedipine, ntg, pravastatin, proair, abacavir, epivir, protonix, quavar, ventolin Past Medical History - General Information source: Patient - Social History Smoking Status: Current Every Day Smoker Chew tobacco use (# tins/day): No Frequency of alcohol use: None Drug Abuse: None Family History: Reviewed & Not Pertinent, CAD, CVA, DM, Hyperlipidemia, Hypertension, Malignancy Patient has homicidal ideation: No - Past Medical History Cardiac Medical History: Reports: Hx Congestive Heart Failure - EF is 40%, with moderate diastolic dysfunction, Hx Coronary Artery Disease, Hx DVT, Hx Heart Attack, Hx Hypercholesterolemia, Hx Hypertension, Hx Peripheral Vascular Disease, Hx Pulmonary Embolism Pulmonary Medical History: Reports: Hx Bronchitis, Hx COPD, Hx Pneumonia, Hx Respiratory Failure Neurological Medical History: Endocrine Medical History: Reports: Hx Diabetes Mellitus Type 2 - insulin dependent Renal/ Medical History: Reports: Hx End Stage Renal Disease - Dialysis MWF with Dr. 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, Reports Hx Musculoskeletal Trauma Psychiatric Medical History: Reports: Hx Depression Infectious Medical History: Reports: Hx HIV - noncompliant with meds Past Surgical History: Reports: Hx Orthopedic Surgery - bilateral amputation, R BKA, L AKA, Hx Vascular Surgery - left arm clot removed, IVC filter, thrombectomy 05/18/2018 left arm, Other - Tunnel graft right axillary femoral bypass, dialysis fistula LUE - Immunizations Immunizations up to date: Yes Hx Diphtheria, Pertussis, Tetanus Vaccination: Yes Hx Pneumococcal Vaccination: 07/21/10 Review of Systems - Review of Systems Constitutional: See HPI EENT: No symptoms reported Cardiovascular: See HPI, Chest pain - L Respiratory: See HPI, Cough Gastrointestinal: No symptoms reported Genitourinary: No symptoms reported Male Genitourinary: No symptoms reported Musculoskeletal: See HPI, Other - Legs feel tight Skin: No symptoms reported Hematologic/Lymphatic: No symptoms reported Neurological/Psychological: No symptoms reported -: Yes All other systems reviewed and negative Physical Exam - Vital signs Vitals: Resp BP Pulse Ox 18 147/86 H 100 01/16/20 09:55 01/16/20 09:55 01/16/20 09:55 - General General appearance: Appears well, Alert - HEENT Head: Normocephalic, Atraumatic Eyes: Normal Pupils: PERRL Nasal: Clear rhinorrhea, Other - Nasal congestion - Respiratory Respiratory status: No respiratory distress Breath sounds: Rhonchi Chest palpation: Normal - Cardiovascular Rhythm: Regular Heart sounds: Normal auscultation Murmur: No - Abdominal Inspection: Normal - Soft Distension: No distension Bowel sounds: Normal Tenderness: Nontender - Extremities General upper extremity: Normal inspection. No: Edema Notes: BKA of the right lower extremities. AKA of the left lower extremities. Non-tender with palpation to amputated stumps bilaterally. Skin is warm and of normal temperature. No breakdown of the skin. - Neurological Neuro grossly intact: Yes Cognition: Normal Orientation: AAOx4 Speech: Normal - Psychological Associated symptoms: Normal affect, Normal mood - Skin Skin Temperature: Warm Skin Moisture: Dry Skin Color: Normal Course - Re-evaluation Re-evalutation: 01/16/20 13:30 Patient's EKG does not show acute changes. The troponin was 0.103, a repeat 2 hours later was 0.103, this is most likely due to his chronic renal failure. There is no clear explanation for the complaint of the tightness and pressure he reports in the stumps on either leg. Chest x-ray does show some mild basilar atelectasis, and his chronic cardiomegaly. He does have a little bit of a congested cough. The white blood cell count was not elevated and did not have a shift. The INR was 3.94, it is frequently elevated. He was given 15gm of Kayexalate. He will be advised to not miss dialysis tomorrow. At this time he is mostly complaining about the tightness in his lower extremities. I advised him that he seems to have good circulation, the skin is warm, it is not inflamed, there is no breakdown in skin. There is no particular tenderness noted when the tissue was palpated. He is advised to follow-up with his primary care provider and his grinder tender to discuss this chronic tightness he is experiencing in his legs. - Vital Signs Vital signs: Temp Pulse Resp BP Pulse Ox 97.8 F 16 145/92 H 100 01/16/20 10:07 01/16/20 13:52 01/16/20 13:52 01/16/20 13:52 - Laboratory Result Diagrams: 01/16/20 10:22 01/16/20 10:22 Laboratory results interpreted by me: 01/16/20 01/16/20 01/16/20 10:22 10:22 10:22 RBC 3.38 L Hgb 11.2 L Hct 32.7 L RDW 15.4 H PT 39.5 H Potassium 5.7 H BUN 44 H Creatinine 9.81 H Est GFR ( Amer) 6 L Est GFR (MDRD) Non-Af 5 L - Diagnostic Test Radiology reviewed: Image reviewed, Reports reviewed - Chest x-ray shows cardiomegaly with mild basilar atelectasis. Discharge - Discharge Clinical Impression: Bronchitis, Hyperkalemia, Excessive anticoagulation Chronic renal failure Qualifiers: Chronic kidney disease stage: stage 5 Qualified Code(s): N18.5 - Chronic kidney disease, stage 5 Condition: Stable Disposition: HOME, SELF-CARE Additional Instructions: Bronchitis: You have acute bronchitis. This disease is an infection or inflammation of the air passageways in your lungs. Symptoms usually include cough, low grade fever, shortness of breath, and wheezing. The cough usually persists for a couple of weeks. Most cases of bronchitis get better without antibiotics. We prescribe antibiotics when we believe bacteria are damaging your airways, or if there's high risk the bronchitis will worsen into pneumonia. Increase your fluid intake. A cool mist humidifier may make your lungs more comfortable. An expectorant (cough medicine that loosens phlegm) can help. If you smoke, STOP!!! Recovery from bronchitis can be somewhat slow, but you should see improvement within a day or two. Repeated episodes of bronchitis may result in lung damage -- for example, chronic bronchitis, recurrent pneumonias, or emphysema. Call the doctor if you develop increasing fever, shortness of breath, chest pain, bloody sputum, or otherwise worsen. If you have not improved at all after several days, contact the physician. Chest Pain of Unclear Cause: The exact cause of your chest pain isn't clear. Fortunately, there is no evidence of a dangerous medical condition. Further testing may be required to find the source of the pain. Most often, we find that this pain is coming from the chest wall -- the muscles or rib joints in the chest. But chest pain can come from the lung and lung lining, the esophagus, the heart valves or heart lining, and even the stomach or gallbladder. Rest. Eat lightly until the pain is gone. We may prescribe medicine for pain and inflammation. You should call the physician immediately if the pain radiates to the shoulder, jaw or arms; if you start to run a fever or develop a cough; or if you develop shortness of breath, or other new or alarming symptoms. Hyperkalemia: Your potassium was 5.7 today. You are given 2 doses of Kayexalate to help bind the potassium and prevent it from climbing any further before you go to dialysis tomorrow. Be very careful about what you eat and drink to avoid potassium. Lower Extremity Pain: No clear explanation to explain the tightness you are's experiencing in the stumps on either leg. You should follow-up with your primary care provider for further evaluation of this problem which is now been going on for several weeks. Elevated INR: Your INR today was 3.94 You should hold your Coumadin doses today and tomorrow, talk with your grinder tender tomorrow about when to resume your Coumadin. RETURN TO THE EMERGENCY ROOM IF ANY NEW OR WORSENING SYMPTOMS. Referrals: LUIS CROW MD [Primary Care Provider] - Follow up as needed I personally performed the services described in the documentation, reviewed and edited the documentation which was dictated to the scribe in my presence, and it accurately records my words and actions.
== END 2020-01-16 14:08 | disposition home or self-care (01) ==
LOC: ER 09:42
DX: I13.2 Hypertensive heart and chronic kidney disease with heart failure and with stage 5 chronic kidney disease, or end stage renal disease (principal); E11.22 Type 2 diabetes mellitus with diabetic chronic kidney disease; N18.5 Chronic kidney disease, stage 5; I50.9 Heart failure, unspecified; Z99.2 Dependence on renal dialysis; J40 Bronchitis, not specified as acute or chronic; E87.5 Hyperkalemia; R07.9 Chest pain, unspecified; R09.81 Nasal congestion; R05 Cough; R09.89 Other specified symptoms and signs involving the circulatory and respiratory systems; Z88.8 Allergy status to other drugs, medicaments and biological substances; Z79.899 Other long term (current) drug therapy; Z79.01 Long term (current) use of anticoagulants; F17.200 Nicotine dependence, unspecified, uncomplicated; Z79.4 Long term (current) use of insulin
CPT/HCPCS: 93005; 99285; 36415; 82553; 82550; 85025; 85610; 80053; 84484; 71045; 93010; A9270

== ENCOUNTER 2020-01-16 20:33 | Emergency (ER) | payer MEDICARE, MEDICAID ==
[2020-01-16 22:50] LABS: ABSOLUTE BASOPHILS # (AUTO) 0.1 10^3/uL (0.0-0.2); ABSOLUTE EOSINOPHILS # (AUTO) 0.6 10^3/uL (0.0-0.6); ABSOLUTE LYMPHOCYTES (AUTO) 4.5 10^3/uL (0.5-4.7); ABSOLUTE MONOCYTES (AUTO) 1.1 10^3/uL (0.1-1.4); ABSOLUTE NEUT (AUTO) 4.7 10^3/uL (1.7-8.2); BASOPHILS % (AUTO) 1.2 % (0-2); EOSINOPHILS % (AUTO) 5.2 % (0-6); HEMOGLOBIN 11.5 g/dL (13.5-17.0); LYMPHOCYTES % (AUTO) 40.8 % (13-45); MEAN CORPUSCULAR HEMOGLOBIN 33.7 pg (27.0-33.4); MEAN CORPUSCULAR HGB CONC 34.7 g/dL (32.0-36.0); MEAN CORPUSCULAR VOLUME 97 fl (80-97); MONOCYTES % (AUTO) 10.4 % (3-13); PLATELET COUNT 259 10^3/uL (150-450); RED CELL DISTRIBUTION WIDTH 15.3 % (11.5-14.0); SEGMENTED NEUTROPHILS % (AUTO) 42.4 % (42-78); TOTAL CELLS COUNTED % (AUTO) 100 %
[2020-01-16 23:15] LABS: ALBUMIN 4.4 g/dL (3.5-5.0); ALKALINE PHOSPHATASE 62 U/L (38-126); ANION GAP 15 (5-19); ASPARTATE AMINO TRANSFERASE 25 U/L (17-59); BILIRUBIN,DIRECT 0.2 mg/dL (0.0-0.4); BILIRUBIN,TOTAL 0.4 mg/dL (0.2-1.3); BLOOD UREA NITROGEN 52 mg/dL (7-20); CALCIUM 9.6 mg/dL (8.4-10.2); CARBON DIOXIDE 26 mmol/L (22-30); CHLORIDE 98 mmol/L (98-107); CREATINE KINASE 98 U/L (55-170); GLUCOSE 70 mg/dL (75-110); POTASSIUM 5.2 mmol/L (3.6-5.0); TOTAL PROTEIN 7.6 g/dL (6.3-8.2)
[2020-01-16 23:20] LABS: CREATINE KINASE MB 2.87 ng/mL (<4.55)
[2020-01-16 23:23] LABS: TROPONIN I 0.116 ng/mL
[2020-01-16 23:35] VITALS: BP 177/91
--- NOTE | 2020-01-17 00:22 | EKG REPORT ---
SEVERITY:- ABNORMAL ECG - SINUS TACHYCARDIA LEFT ANTERIOR FASCICULAR BLOCK LVH WITH SECONDARY REPOLARIZATION ABNORMALITY : Confirmed by: Beulah Storm 17-Jan-2020 00:21:33
== END 2020-01-17 01:43 | disposition left against medical advice (07) ==
LOC: ER 20:33
DX: Z53.21 Procedure and treatment not carried out due to patient leaving prior to being seen by health care provider (principal)
CPT/HCPCS: 36415; 82550; 82553; 84484; 87070; 93005; 93010

== ENCOUNTER 2020-01-19 02:28 | Emergency (ER) | payer MEDICARE, MEDICAID ==
[2020-01-19 02:46] VITALS: BP 176/95
--- NOTE | 2020-01-19 03:28 | RADIOLOGY REPORT (SQ) ---
CLINICAL INDICATION: chest pain. TECHNIQUE: A single portable AP view was obtained of the chest at 0312 hours. COMPARISON: January 16, 2020. FINDINGS: The cardiomediastinal silhouette is enlarged but stable. The lungs are grossly clear. No evidence of effusion or pneumothorax. Chronic parenchymal lung change. Osteoarthritis. Old posttraumatic change left clavicle. Old postsurgical change right hemithorax.. IMPRESSION: No evidence of active intrathoracic disease. Chronic change, no adverse change
[2020-01-19 03:35] LABS: ABSOLUTE BASOPHILS # (AUTO) 0.1 10^3/uL (0.0-0.2); ABSOLUTE EOSINOPHILS # (AUTO) 0.4 10^3/uL (0.0-0.6); ABSOLUTE LYMPHOCYTES (AUTO) 2.7 10^3/uL (0.5-4.7); ABSOLUTE MONOCYTES (AUTO) 0.9 10^3/uL (0.1-1.4); BASOPHILS % (AUTO) 0.7 % (0-2); EOSINOPHILS % (AUTO) 5.3 % (0-6); HEMATOCRIT 29.8 % (37.9-51.0); HEMOGLOBIN 10.5 g/dL (13.5-17.0); LYMPHOCYTES % (AUTO) 33.7 % (13-45); MEAN CORPUSCULAR HEMOGLOBIN 34.2 pg (27.0-33.4); MEAN CORPUSCULAR HGB CONC 35.3 g/dL (32.0-36.0); MEAN CORPUSCULAR VOLUME 97 fl (80-97); MONOCYTES % (AUTO) 11.1 % (3-13); PLATELET COUNT 211 10^3/uL (150-450); RED BLOOD COUNT 3.08 10^6/uL (4.35-5.55); SEGMENTED NEUTROPHILS % (AUTO) 49.2 % (42-78); TOTAL CELLS COUNTED % (AUTO) 100 %; WHITE BLOOD COUNT 8.1 10^3/uL (4.0-10.5)
[2020-01-19 03:48] LABS: ALBUMIN 3.9 g/dL (3.5-5.0); ALKALINE PHOSPHATASE 53 U/L (38-126); ANION GAP 13 (5-19); ASPARTATE AMINO TRANSFERASE 25 U/L (17-59); BILIRUBIN,DIRECT 0.1 mg/dL (0.0-0.4); BILIRUBIN,TOTAL 0.3 mg/dL (0.2-1.3); BLOOD UREA NITROGEN 47 mg/dL (7-20); CALCIUM 9.3 mg/dL (8.4-10.2); CARBON DIOXIDE 26 mmol/L (22-30); CHLORIDE 99 mmol/L (98-107); CREATINE KINASE 126 U/L (55-170); GLUCOSE 87 mg/dL (75-110); POTASSIUM 5.7 mmol/L (3.6-5.0)
[2020-01-19 04:06] LABS: CREATINE KINASE MB 2.25 ng/mL (<4.55)
[2020-01-19 04:12] LABS: TROPONIN I 0.098 ng/mL
--- NOTE | 2020-01-19 11:13 | EKG REPORT ---
SEVERITY:- ABNORMAL ECG - SINUS RHYTHM LEFT ANTERIOR FASCICULAR BLOCK LEFT VENTRICULAR HYPERTROPHY BORDERLINE PROLONGED QT INTERVAL : Confirmed by: Annita Coker MD 19-Jan-2020 11:12:53
== END 2020-01-19 04:00 | disposition left against medical advice (07) ==
LOC: ER 02:28
DX: Z53.21 Procedure and treatment not carried out due to patient leaving prior to being seen by health care provider (principal)
CPT/HCPCS: 36415; 71045; 80053; 82550; 82553; 84484; 85025; 93005; 93010

== ENCOUNTER 2020-01-19 04:55 | Emergency (ER) | payer MEDICARE, MEDICAID ==
[2020-01-19] MEDS ORDERED: MORPHINE SULFATE 10 MG/ML INJ IV ONE (06:11)
--- NOTE | 2020-01-19 06:29 | ER Document Report ---
ED General - General Chief Complaint: Chest Wall Pain Stated Complaint: SHORTNESS OF BREATH Time Seen by Provider: 01/19/20 06:01 Primary Care Provider: LUIS CROW MD [Primary Care Provider] - Follow up as needed Mode of Arrival: Wheelchair Information source: Patient TRAVEL OUTSIDE OF THE [place] IN LAST 30 DAYS: No - HPI Notes: Patient presents with several different complaints. He states he feels as if "things are crawling all over me". Patient states that he has having some left thigh pain. He states his thigh pain is constant and moderate to severe in intensity. Nothing makes it better or worse. It does radiate up into the left hip area. He states this is a chronic pain that he has. He also states that ea rlier he was having some trouble breathing but states that his breathing feels better now. Patient was here approximately 6 hours ago however before he could be seen he eloped and took a cab home. His troponin came back above normal so he was called by a nurse to come back. However this troponin is chronically elevated and is actually lower than his last 3 visits. He denies any chest pain at this time. He states he is due to dialyze today at 11:00. - Related Data Allergies/Adverse Reactions: calcitriol Allergy (Verified 01/19/20 02:53) itching Past Medical History - General Information source: Patient - Social History Smoking Status: Current Every Day Smoker Frequency of alcohol use: None Drug Abuse: None Family History: Reviewed & Not Pertinent, CAD, CVA, DM, Hyperlipidemia, Hypertension, Malignancy Patient has homicidal ideation: No - Past Medical History Cardiac Medical History: Reports: Hx Congestive Heart Failure - EF is 40%, with moderate diastolic dysfunction, Hx Coronary Artery Disease, Hx DVT, Hx Heart Attack, Hx Hypercholesterolemia, Hx Hypertension, Hx Peripheral Vascular Disea se, Hx Pulmonary Embolism Denies: Hx Atrial Fibrillation Pulmonary Medical History: Reports: Hx Bronchitis, Hx COPD, Hx Pneumonia, Hx Respiratory Failure Denies: Hx Asthma, Hx Sleep Apnea Neurological Medical History: Denies: Hx Migraine, Hx Seizures Endocrine Medical History: Reports: Hx Diabetes Mellitus Type 2 - insulin dependent. Denies: Hx Diabetes Mellitus Type 1, Hx Hyperthyroidism, Hx Hypothyroidism Renal/ Medical History: Reports: Hx End Stage Renal Disease - Dialysis MWF with Dr. Pablo Lowe, Hx Hemodialysis, Hx Renal Insufficiency. Denies: Hx Peritoneal Dialysis GI Medical History: Reports: Hx Gastroesophageal Reflux Disease. Denies: Hx Cirrhosis, Hx Crohn's Disease, Hx Hepatitis, Hx Ulcerative Colitis Musculoskeletal Medical History: Reports Hx Arthritis, Denies Hx Fibromyalgia, 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 bilat AKA, Reports Hx Musculoskeletal Trauma Skin Medical History: Denies Hx Eczema, Denies Hx Psoriasis Psychiatric Medical History: Reports: Hx Depression Traumatic Medical History: Denies: Hx Traumatic Brain Injury Infectious Medical History: Reports: Hx HIV - noncompliant with meds. Denies: Hx Hepatitis Past Surgical History: Reports: Hx Orthopedic Surgery - bilateral amputation, R BKA, L AKA, Hx Vascular Surgery - left arm clot removed, IVC filter, t hrombectomy 05/18/2018 left arm, Other - Tunnel graft right axillary femoral bypass, dialysis fistula LUE - Immunizations Immunizations up to date: Yes Hx Diphtheria, Pertussis, Tetanus Vaccination: Yes Hx Pneumococcal Vaccination: 07/21/10 Review of Systems - Review of Systems Constitutional: denies: Chills, Fever Cardiovascular: denies: Chest pain, Palpitations Respiratory: Cough, Short of breath -: Yes All other systems reviewed and negative Physical Exam - Vital signs Vitals: Resp 14 01/19/20 05:03 Interpretation: Hypertensive - General General appearance: Appears well, Alert - HEENT Head: Normocephalic, Atraumatic Eyes: Normal Pupils: PERRL - Respiratory Respiratory status: No respiratory distress Chest status: Nontender Breath sounds: Rhonchi Chest palpation: Normal - Cardiovascular Rhythm: Regular Heart sounds: Normal auscultation Murmur: No - Abdominal Inspection: Normal Distension: No distension Bowel sounds: Normal Tenderness: Nontender Organomegaly: No organomegaly - Back Back: Normal, Nontender - Extremities General upper extremity: Normal inspection, Nontender, Normal color, Normal ROM, Normal temperature General lower extremity: Normal inspection, Tender - Patient's left stump is unremarkable in appearance. It is diffusely moderately tender to palpation. There is no induration there is no erythema. There is no increased warmth or signs of infection., Normal color, Normal ROM, Normal temperature. No: Jun's sign - Neurological Neuro grossly intact: Yes Cognition: Normal Orientation: AAOx4 Epworth Coma Scale Eye Opening: Spontaneous Epworth Coma Scale Verbal: Oriented Epworth Coma Scale Motor: Obeys Commands Epworth Coma Scale Total: 15 Speech: Normal Motor strength normal: LUE, RUE, LLE, RLE Sensory: Normal - Psychological Associated symptoms: Normal affect, Normal mood - Skin Skin Temperature: Warm Skin Moisture: Dry Skin Color: Normal Course - Vital Signs Vital signs: Temp Pulse Resp BP Pulse Ox 98.0 F 16 171/99 H 100 01/19/20 05:06 01/19/20 05:06 01/19/20 05:06 01/19/20 05:06 - EKG Interpretation by Hi EKG shows normal: Sinus rhythm Rate: Normal - 94 Rhythm: NSR [place]/QRS: LAHB/LAFB Voltage: Consistant with LVH Discharge - Discharge Clinical Impression: Left leg pain, SOB (shortness of breath), Chronic kidney disease with end stage renal failure on dialysis, Hyperkalemia Dyspnea Qualifiers: Dyspnea type: shortness of breath Qualified Code(s): R06.02 - Shortness of breath Condition: Stable Disposition: HOME, SELF-CARE Additional Instructions: Please go to dialysis today as scheduled Referrals: LUIS CROW MD [Primary Care Provider] - Follow up as needed
[2020-01-19 07:28] VITALS: BP 172/96
--- NOTE | 2020-01-19 11:13 | EKG REPORT ---
SEVERITY:- ABNORMAL ECG - SINUS RHYTHM LEFT ANTERIOR FASCICULAR BLOCK LEFT VENTRICULAR HYPERTROPHY ANTERIOR Q WAVES, POSSIBLY DUE TO LVH : Confirmed by: Annita Coker MD 19-Jan-2020 11:12:50
== END 2020-01-19 07:45 | disposition home or self-care (01) ==
LOC: ER 04:55
DX: M79.652 Pain in left thigh (principal); I13.2 Hypertensive heart and chronic kidney disease with heart failure and with stage 5 chronic kidney disease, or end stage renal disease; E11.22 Type 2 diabetes mellitus with diabetic chronic kidney disease; N18.6 End stage renal disease; I50.30 Unspecified diastolic (congestive) heart failure; Z99.2 Dependence on renal dialysis; E87.5 Hyperkalemia; I44.4 Left anterior fascicular block; J44.9 Chronic obstructive pulmonary disease, unspecified; R06.02 Shortness of breath; R05 Cough; E11.51 Type 2 diabetes mellitus with diabetic peripheral angiopathy without gangrene; I25.10 Atherosclerotic heart disease of native coronary artery without angina pectoris; I25.2 Old myocardial infarction; F17.200 Nicotine dependence, unspecified, uncomplicated; Z21 Asymptomatic human immunodeficiency virus [HIV] infection status; Z89.511 Acquired absence of right leg below knee; Z89.612 Acquired absence of left leg above knee; Z88.8 Allergy status to other drugs, medicaments and biological substances
CPT/HCPCS: 93005; 99284; 96374; 93010; J2270

== ENCOUNTER 2020-01-19 16:46 | Emergency (ER) | payer MEDICARE, MEDICAID ==
[2020-01-19] MEDS ORDERED: IPRATROPIUM/ALBUTEROL 0.5-2.5 MG/3 ML AMPUL NEB ONE (17:43)
--- NOTE | 2020-01-19 17:51 | ER Document Report ---
ED General - General Chief Complaint: Shortness Of Breath Stated Complaint: SHORTNESS OF BREATH,CHEST PAIN Time Seen by Provider: 01/19/20 17:11 Primary Care Provider: LUIS CROW MD [Primary Care Provider] - Follow up as needed TRAVEL OUTSIDE OF THE [place] IN LAST 30 DAYS: No - HPI Notes: Patient is a 64-year-old male who presents to the emergency department for evaluation. Evidently he was seen earlier today in the ED. His initial complaint listed shortness of breath, but the patient denies that to me now. He states he was diagnosed with bronchitis, but states he did not get any treatment for that. He states now he has itching, his stumps are bothering him. His stump pain is chronic. He has had no fevers or chills. No nausea or vomiting. He went to dialysis on Friday, but states he did not go today, as he was late because he was here in the emergency department. His next scheduled dialysis on Friday, he states he underwent full dialysis on Friday. He currently presents stump pain at 1 out of 5. Otherwise, he states he has vomiting "every once in a while" but is able to keep down his medications. His current viral load is undetectable. - Related Data Allergies/Adverse Reactions: calcitriol Allergy (Verified 01/19/20 02:53) itching Home Medications: List reviewed with patient Past Medical History - General Information source: Patient - Social History Smoking Status: Current Every Day Smoker Family History: Reviewed & Not Pertinent, CAD, CVA, DM, Hyperlipidemia, Hypertension, Malignancy - Past Medical History Cardiac Medical History: Reports: Hx Congestive Heart Failure - EF is 40%, with moderate diastolic dysfunction, Hx Coronary Artery Disease, Hx DVT, Hx Heart Attack, Hx Hypercholesterolemia, Hx Hypertension, Hx Peripheral Vascular Disease, Hx Pulmonary Embolism Denies: Hx Atrial Fibrillation Pulmonary Medical History: Reports: Hx Bronchitis, Hx COPD, Hx Pneumonia, Hx Respiratory Failure Denies: Hx Asthma, Hx Sleep Apnea Neurological Medical History: Denies: Hx Migraine, Hx Seizures Endocrine Medical History: Reports: Hx Diabetes Mellitus Type 2 - insulin dependent. Denies: Hx Diabetes Mellitus Type 1, Hx Hyperthyroidism, Hx Hypothyroidism Renal/ Medical History: Reports: Hx End Stage Renal Disease - Dialysis MWF with Dr. Pablo Lowe, Hx Hemodialysis, Hx Renal Insufficiency. Denies: Hx Peritoneal Dialysis GI Medical History: Reports: Hx Gastroesophageal Reflux Disease. Denies: Hx Cirrhosis, Hx Crohn's Disease, Hx Hepatitis, Hx Ulcerative Colitis Musculoskeletal Medical History: Reports Hx Arthritis, Denies Hx Fibromyalgia, 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 bilat AKA, Reports Hx Musculoskeletal Trauma Skin Medical History: Denies Hx Eczema, Denies Hx Psoriasis Psychiatric Medical History: Reports: Hx Depression Traumatic Medical History: Denies: Hx Traumatic Brain Injury Infectious Medical History: Reports: Hx HIV - noncompliant with meds. Denies: Hx Hepatitis Past Surgical History: Reports: Hx Orthopedic Surgery - bilateral amputation, R BKA, L AKA, Hx Vascular Surgery - left arm clot removed, IVC filter, thrombectomy 05/18/2018 left arm, Other - Tunnel graft right axillary femoral bypass, dialysis fistula LUE - Immunizations Immunizations up to date: Yes Hx Diphtheria, Pertussis, Tetanus Vaccination: Yes Hx Pneumococcal Vaccination: 07/21/10 Review of Systems - Review of Systems Respiratory: See HPI Musculoskeletal: See HPI Skin: See HPI -: Yes All other systems reviewed and negative Physical Exam - Vital signs Vitals: Resp Pulse Ox 18 99 01/19/20 16:59 01/19/20 16:59 - Notes Notes: This is a 64-year-old gentleman who appears his stated age in no acute distress. He is breathing at a normal rate, no increased work of breathing. He did cough once while I was in the room, but no excessive coughing. Head is normocephalic and atraumatic, pupils are equal and round, reactive to light. Oral mucosa is moist. Uvula is midline. Heart is regular rate and rhythm, lungs reveal mildly diminished breath sounds with occasional wheeze. Abdomen is soft, nontender, normoactive bowel sounds. Patient has right BKA, left AKA. No edema in the stumps, wounds are well approximated, no erythema or skin breakdown is noted. Patient is awake and alert, cooperative with examiner. Skin is otherwise warm and dry, I cannot appreciate any rashes. Intermittently throughout the interview, the patient scratches at his skin, he does have some dyshidrotic skin in some places, but no rash I can appreciate. Fistula left forearm with palpable thrill. Course - Re-evaluation Re-evalutation: 01/19/20 17:49 Patient presents to the emergency department for evaluation. He was seen earlier today and discharged. He initially presented with shortness of breath, but is oxygenating well. He states he is not short of breath right now. He did however, missed dialysis earlier today. I do not see any obvious source of itching. His stump pain is chronic. I will order some basic blood work on the patient. I expect his troponin to be elevated, as it chronically is, and he missed dialysis this morning. I am specifically concerned about his potassium since he was not dialyzed. He had a chest x-ray earlier today which was unremarkable, and his lung exam is largely unremarkable as well. I am not inclined to repeat it, and particularly in light of the fact that he no longer feels short of breath. The patient is stable, we will continue to monitor. 01/19/20 19:27 Notified of patient's lab findings. His potassium is 5.9. The patient remained significantly hypertensive. He is traditionally noncompliant with all of his medications. I did order him his home hydralazine and his home clonidine, as well as calcium, insulin, dextrose. He is currently stable. I have paged on- call nephrology, awaiting callback. 01/19/20 19:34 I was notified that the patient was upset, threatening to leave. I went over and spoke to the patient. He states he does not want to wait any further. I explained to him I was right eye, I explained to him his potassium was high, his blood pressure was high. I was giving him medication to treat that. I was doing an EKG to test to see if he had any EKG changes from his hyperkalemia. I explained to him that these are immediate possible life-threatening problems. He voiced understanding to this, still wishes to leave AGAINST MEDICAL ADVICE. I was able to talk him into receiving the medications. He refuses EKG. I told him he could wait to see if I could arrange outpatient dialysis for him tomorrow, he still refuses, states he understands that he could , and still does not wish to stay. Again he was amenable to receiving the medications, including his normal clonidine and hydralazine, as well as calcium, insulin, dextrose. I urged him to return if he changes his mind. Otherwise, he will sign out AGAINST MEDICAL ADVICE. The patient has chosen to leave the facility against medical advice. The relevant issues have been reviewed and discussed with the patient and family at the bedside. At the time of this assessment there is no indication for involuntary commitment. The patient is alert, oriented, and able to express clearly their reasoning for not wanting to remain in the emergency department for further treatment. The patient is not clinically psychotic, intoxicated, and denies and suicidal ideation. Differential or suspected diagnoses based on medical screening exam: . The patient is aware of the concerning diagnoses and acknowledges understanding of the reasons for the following recommendations: The following recommendations/services were offered and refused: The following risks were explained: , permanent disability, loss of function Clinical impression: Patient is competent to make decisions regarding the medical that is being offered. - Vital Signs Vital signs: Temp Pulse Resp BP Pulse Ox 98 F 24 H 202/110 H 96 01/19/20 17:25 01/19/20 19:01 01/19/20 19:01 01/19/20 19:01 - Laboratory Result Diagrams: 01/19/20 17:10 01/19/20 17:10 Laboratory results interpreted by me: 01/19/20 01/19/20 17:10 17:10 RBC 3.15 L Hgb 10.8 L Hct 30.8 L MCV 98 H MCH 34.2 H RDW 15.5 H Potassium 5.8 H Chloride 96 L BUN 57 H Creatinine 10.35 H Est GFR ( Amer) 6 L Est GFR (MDRD) Non-Af 5 L Glucose 116 H Discharge - Discharge Clinical Impression: Hyperkalemia, End stage renal disease Disposition: AGAINST MEDICAL ADVICE Instructions: Kidney Failure ([facility]) Additional Instructions: Your potassium and your blood pressure are both very high. It is been explained to you that either of these issues independently can cause serious problems or sudden . You have elected to leave AGAINST MEDICAL ADVICE. Please contact your electrical appliance mechanic to set up dialysis as soon as possible. If you change your mind at any time, please return to the emergency department for further evaluation. Referrals: LUIS CROW MD [Primary Care Provider] - Follow up as needed
[2020-01-19 18:12] LABS: ABSOLUTE BASOPHILS # (AUTO) 0.1 10^3/uL (0.0-0.2); ABSOLUTE EOSINOPHILS # (AUTO) 0.5 10^3/uL (0.0-0.6); ABSOLUTE LYMPHOCYTES (AUTO) 3.6 10^3/uL (0.5-4.7); ABSOLUTE NEUT (AUTO) 4.3 10^3/uL (1.7-8.2); BASOPHILS % (AUTO) 0.6 % (0-2); EOSINOPHILS % (AUTO) 5.2 % (0-6); HEMATOCRIT 30.8 % (37.9-51.0); HEMOGLOBIN 10.8 g/dL (13.5-17.0); LYMPHOCYTES % (AUTO) 38.2 % (13-45); MEAN CORPUSCULAR HEMOGLOBIN 34.2 pg (27.0-33.4); MEAN CORPUSCULAR VOLUME 98 fl (80-97); MONOCYTES % (AUTO) 10.6 % (3-13); PLATELET COUNT 222 10^3/uL (150-450); RED BLOOD COUNT 3.15 10^6/uL (4.35-5.55); RED CELL DISTRIBUTION WIDTH 15.5 % (11.5-14.0); SEGMENTED NEUTROPHILS % (AUTO) 45.4 % (42-78); TOTAL CELLS COUNTED % (AUTO) 100 %; WHITE BLOOD COUNT 9.4 10^3/uL (4.0-10.5)
[2020-01-19 18:29] LABS: ALBUMIN 4.1 g/dL (3.5-5.0); ALKALINE PHOSPHATASE 48 U/L (38-126); ANION GAP 16 (5-19); ASPARTATE AMINO TRANSFERASE 27 U/L (17-59); BILIRUBIN,DIRECT 0.1 mg/dL (0.0-0.4); BILIRUBIN,TOTAL 0.4 mg/dL (0.2-1.3); BLOOD UREA NITROGEN 57 mg/dL (7-20); CALCIUM 9.2 mg/dL (8.4-10.2); CARBON DIOXIDE 26 mmol/L (22-30); CHLORIDE 96 mmol/L (98-107); GLUCOSE 116 mg/dL (75-110); POTASSIUM 5.8 mmol/L (3.6-5.0); TOTAL PROTEIN 6.9 g/dL (6.3-8.2)
[2020-01-19] MEDS ORDERED: DEXTROSE 50%-WATER 25 GM/50 ML DISP.SYRIN IV ONE (19:25)
[2020-01-19] MEDS ORDERED: INSULIN REG, HUMAN 100 UNIT/ML 3 ML VIAL (PYX) IV ONE (19:25)
[2020-01-19] MEDS ORDERED: CALCIUM GLUCONATE 1000 MG/10 ML INJ IV ONE (19:25)
[2020-01-19] MEDS ORDERED: HYDRALAZINE HCL 10 MG TABLET PO ONE (19:26)
[2020-01-19] MEDS ORDERED: CLONIDINE HCL 0.2 MG TABLET PO ONE (19:27)
[2020-01-19 20:08] VITALS: BP 204/107
--- NOTE | 2020-01-20 09:44 | EKG REPORT ---
SEVERITY:- ABNORMAL ECG - SINUS RHYTHM LEFT BUNDLE BRANCH BLOCK : Confirmed by: Annita Coker MD 20-Jan-2020 09:44:16
== END 2020-01-19 20:05 | disposition left against medical advice (07) ==
LOC: ER 16:46
DX: E87.5 Hyperkalemia (principal); I13.2 Hypertensive heart and chronic kidney disease with heart failure and with stage 5 chronic kidney disease, or end stage renal disease; E11.22 Type 2 diabetes mellitus with diabetic chronic kidney disease; N18.6 End stage renal disease; I50.30 Unspecified diastolic (congestive) heart failure; Z99.2 Dependence on renal dialysis; Z91.15 Patient's noncompliance with renal dialysis; E11.51 Type 2 diabetes mellitus with diabetic peripheral angiopathy without gangrene; L29.9 Pruritus, unspecified; R11.10 Vomiting, unspecified; J44.9 Chronic obstructive pulmonary disease, unspecified; F17.200 Nicotine dependence, unspecified, uncomplicated; I25.10 Atherosclerotic heart disease of native coronary artery without angina pectoris; M79.606 Pain in leg, unspecified; G89.29 Other chronic pain; Z21 Asymptomatic human immunodeficiency virus [HIV] infection status; Z89.511 Acquired absence of right leg below knee; Z89.612 Acquired absence of left leg above knee; Z79.899 Other long term (current) drug therapy; Z88.8 Allergy status to other drugs, medicaments and biological substances; Z53.29 Procedure and treatment not carried out because of patient's decision for other reasons
CPT/HCPCS: 93005; 99283; 36415; 87070; 84484; 93010; J0610; A9270 ×4; J3490; J1815

== ENCOUNTER 2020-01-19 23:02 | Inpatient (IN) | payer MEDICARE, MEDICAID ==
[2020-01-19] MEDS ORDERED: CALCIUM GLUCONATE 1000 MG/10 ML INJ IV ONE ×2 (23:30→23:35)
[2020-01-19] MEDS ORDERED: NITROGLYCERIN/D5W 50 MG/250 ML RTUINJ IV PRN (23:37)
--- NOTE | 2020-01-19 23:45 | ER Document Report ---
ED General - General Chief Complaint: Chest Tightness Stated Complaint: CHEST TIGHTNESS Time Seen by Provider: 01/19/20 23:30 Primary Care Provider: LUIS CROW MD [Primary Care Provider] - Follow up as needed TRAVEL OUTSIDE OF THE [place] IN LAST 30 DAYS: No - HPI Notes: Patient is a 64-year-old gentleman, I had the pleasure of seeing this patient earlier in the night. He left AGAINST MEDICAL ADVICE. At that time he had originally presented with shortness of breath, so that had resolved. He complained primarily of itching, chronic pain in his stumps. I explained to him that his potassium was high and he needed to stay for dialysis, the patient elected to leave AGAINST MEDICAL ADVICE. Patient re-presents today with shortness of breath. He states he left the hospital, went straight home and went to sleep. He woke up suddenly short of breath. He describes a pressure in his left chest, relieved entirely by 1 sublingual nitroglycerin in route. The patient states he is pain-free now, just his chronic pain in his bilateral stumps, and is having difficulty breathing. He does admit to feeling anxious. - Related Data Allergies/Adverse Reactions: calcitriol Allergy (Verified 01/19/20 02:53) itching Past Medical History - General Information source: Patient - Social History Smoking Status: Current Some Day Smoker Family History: Reviewed & Not Pertinent, CAD, CVA, DM, Hyperlipidemia, Hypertension, Malignancy - Past Medical History Cardiac Medical History: Reports: Hx Congestive Heart Failure - EF is 40%, with moderate diastolic dysfunction, Hx Coronary Artery Disease, Hx DVT, Hx Heart Attack, Hx Hypercholesterolemia, Hx Hypertension, Hx Peripheral Vascular Disease, Hx Pulmonary Embolism Denies: Hx Atrial Fibrillation Pulmonary Medical History: Reports: Hx Bronchitis, Hx COPD, Hx Pneumonia, Hx Respiratory Failure Denies: Hx Asthma, Hx Sleep Apnea Neurological Medical History: Denies: Hx Migraine, Hx Seizures Endocrine Medical History: Reports: Hx Diabetes Mellitus Type 2 - insulin dependent. Denies: Hx Diabetes Mellitus Type 1, Hx Hyperthyroidism, Hx Hypothyroidism Renal/ Medical History: Reports: Hx End Stage Renal Disease - Dialysis MWF with Dr. Pablo Lowe, Hx Hemodialysis, Hx Renal Insufficiency. Denies: Hx Per itoneal Dialysis GI Medical History: Reports: Hx Gastroesophageal Reflux Disease. Denies: Hx Cirrhosis, Hx Crohn's Disease, Hx Hepatitis, Hx Ulcerative Colitis Musculoskeletal Medical History: Reports Hx Arthritis, Denies Hx Fibromyalgia, 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 bilat AKA, Reports Hx Musculoskeletal Trauma Skin Medical History: Denies Hx Eczema, Denies Hx Psoriasis Psychiatric Medical History: Reports: Hx Depression Traumatic Medical History: Denies: Hx Traumatic Brain Injury Infectious Medical History: Reports: Hx HIV - noncompliant with meds. Denies: Hx Hepatitis Past Surgical History: Reports: Hx Orthopedic Surgery - bilateral amputation, R BKA, L AKA, Hx Vascular Surgery - left arm clot removed, IVC filter, thrombectomy 05/18/2018 left arm, Other - Tunnel graft right axillary femoral bypass, dialysis fistula LUE - Immunizations Immunizations up to date: Yes Hx Diphtheria, Pertussis, Tetanus Vaccination: Yes Hx Pneumococcal Vaccination: 07/21/10 Review of Systems - Review of Systems Cardiovascular: See HPI Respiratory: See HPI Musculoskeletal: See HPI Skin: See HPI -: Yes All other systems reviewed and negative Physical Exam - Vital signs Vitals: Temp 97.5 F 01/19/20 23:02 - Notes Notes: This is a 64-year-old male appears his stated age in a moderate amount of distress. He is intermittently tachypneic. Increased work of breathing. Head is normocephalic and atraumatic, pupils are equal round, reactive to light. Mucosa is moist. Heart is regular rate and rhythm, lungs show bibasilar rales. Abdomen soft, nontender, normoactive bowel sounds. Skin is warm and dry. Bilateral stumps are examined, no skin breakdown, no edema. Patient is awake alert, cooperative examiner. No gross facial asymmetry. Moves all 4 extremities spontaneously. Course - Re-evaluation Re-evalutation: 01/19/20 23:43 Patient is a 64-year-old male who presents to the emergency department for evaluation. He is known end-stage renal disease, did not have his dialysis today. I knew him to have a high potassium earlier today, at this time he seems to have fluid overload. Patient was treated with calcium. I am awaiting his potassium level. He was treated with nitroglycerin drip, to help control his blood pressure and chest pain, but also the fluid in his lungs apparent on exam. He has a left bundle branch block on his EKG, which is somewhat different, and the primary difference is the duration of the QRS. This can be secondary to hyperkalemia. Patient is chest pain-free at this time, I do not think he warrants Tobacco Sampler activation or thrombolytics. Patient is currently stable, we will continue to monitor. 01/20/20 03:44 Patient denied any chest pain after the chest pain that he had in the squad. He was just complaining of shortness of breath. He was placed on BiPAP. He was placed on a nitroglycerin drip to help his blood pressure and his breathing. He is feeling improved. He had laboratory investigations which revealed marked hyperkalemia. He had been given calcium on arrival. I did he had given further calcium, as well as insulin and dextrose. I spoke with Dr. Renteria, who states the patient can be dialyzed here first thing in the morning. I spoke with Dr. Quinones, who will admit the patient for further care. 01/20/20 03:47 Please note patient complained of phantom leg pain. He was offered Tylenol and refused it. - Vital Signs Vital signs: Temp Pulse Resp BP Pulse Ox 97.5 F 16 184/100 H 97 01/19/20 23:02 01/20/20 01:22 01/19/20 23:11 01/20/20 01:22 - Laboratory Result Diagrams: 01/20/20 00:20 01/20/20 02:43 Laboratory results interpreted by me: 01/20/20 01/20/20 00:20 02:43 RBC 3.21 L Hgb 10.8 L Hct 31.3 L MCH 33.7 H RDW 15.4 H [place] % (Auto) 1.4 L Baso % (Auto) 2.2 H Sodium 135.6 L Potassium 8.1 H* D BUN 62 H Creatinine 11.15 H Est GFR ( Amer) 6 L Est GFR (MDRD) Non-Af 5 L Glucose 122 H - Diagnostic Test Radiology reviewed: Image reviewed, Reports reviewed Radiology results interpreted by me: 01/20/20 03:43 Chest X-Ray 01/19/20 23:26 IMPRESSION: Mild progressive bibasilar atelectasis and interstitial prominence when compared to prior. No dense consolidation. 01/20/20 03:44 Consistent with fluid overload per my interpretation - EKG Interpretation by Me Additional EKG results interpreted by me: 01/20/20 03:44 Sinus mechanism with a rate of 97 bpm. Left axis deviation, left bundle branch block. Change from prior and that he has deeper lateral T wave inversions, widened QRS, likely secondary to the hyperkalemia. Discharge - Discharge Clinical Impression: Noncompliance, ESRD needing dialysis, Hyperkalemia Condition: Stable Disposition: ADMITTED OBSERVATION Admitting Provider: Stacie (Hospitalist) Referrals: LUIS CROW MD [Primary Care Provider] - Follow up as needed
--- NOTE | 2020-01-20 00:14 | RADIOLOGY REPORT (SQ) ---
CLINICAL INDICATION: chest tightness. TECHNIQUE: A single portable AP view was obtained of the chest at 0000 hours. COMPARISON: 0312 hours January 19, 2020. FINDINGS: The cardiomediastinal silhouette is prominent but stable. The lungs demonstrate progressive bibasilar atelectasis. Mild interstitial prominence. No dense consolidation. No evidence of effusion or pneumothorax. Lung apices partly obscured by the patient's head. Osteoarthritis. IMPRESSION: Mild progressive bibasilar atelectasis and interstitial prominence when compared to prior. No dense consolidation.
[2020-01-20 00:32] LABS: ABSOLUTE BASOPHILS # (AUTO) 0.2 10^3/uL (0.0-0.2); ABSOLUTE LYMPHOCYTES (AUTO) 1.7 10^3/uL (0.5-4.7); ABSOLUTE MONOCYTES (AUTO) 0.1 10^3/uL (0.1-1.4); ABSOLUTE NEUT (AUTO) 6.6 10^3/uL (1.7-8.2); BASOPHILS % (AUTO) 2.2 % (0-2); EOSINOPHILS % (AUTO) 0.1 % (0-6); HEMATOCRIT 31.3 % (37.9-51.0); HEMOGLOBIN 10.8 g/dL (13.5-17.0); LYMPHOCYTES % (AUTO) 19.8 % (13-45); MEAN CORPUSCULAR HEMOGLOBIN 33.7 pg (27.0-33.4); MEAN CORPUSCULAR HGB CONC 34.5 g/dL (32.0-36.0); MEAN CORPUSCULAR VOLUME 97 fl (80-97); MONOCYTES % (AUTO) 1.4 % (3-13); PLATELET COUNT 232 10^3/uL (150-450); RED BLOOD COUNT 3.21 10^6/uL (4.35-5.55); RED CELL DISTRIBUTION WIDTH 15.4 % (11.5-14.0); SEGMENTED NEUTROPHILS % (AUTO) 76.5 % (42-78); TOTAL CELLS COUNTED % (AUTO) 100 %; WHITE BLOOD COUNT 8.6 10^3/uL (4.0-10.5)
[2020-01-20] MEDS ORDERED: ONDANSETRON HCL INJ/PF 4 MG/2 ML SDV IV ONE (02:57)
[2020-01-20 03:23] LABS: ALKALINE PHOSPHATASE 51 U/L (38-126); ANION GAP 13 (5-19); ASPARTATE AMINO TRANSFERASE 23 U/L (17-59); BILIRUBIN,DIRECT 0.1 mg/dL (0.0-0.4); BILIRUBIN,TOTAL 0.4 mg/dL (0.2-1.3); BLOOD UREA NITROGEN 62 mg/dL (7-20); CALCIUM 9.4 mg/dL (8.4-10.2); CARBON DIOXIDE 22 mmol/L (22-30); CHLORIDE 101 mmol/L (98-107); GLUCOSE 122 mg/dL (75-110); TOTAL PROTEIN 7.2 g/dL (6.3-8.2)
[2020-01-20] MEDS ORDERED: INSULIN REG, HUMAN 100 UNIT/ML 3 ML VIAL (PYX) IV ONE (03:28)
[2020-01-20] MEDS ORDERED: CALCIUM GLUCONATE 1000 MG/10 ML INJ IV ONE (03:28)
[2020-01-20] MEDS ORDERED: DEXTROSE 50%-WATER 25 GM/50 ML DISP.SYRIN IV ONE (03:28)
[2020-01-20 03:29] LABS: POTASSIUM 8.1 mmol/L (3.6-5.0)
[2020-01-20] MEDS ORDERED: SODIUM POLYSTYRENE SULFONATE 15 GM/60 ML PO ONE (03:42)
[2020-01-20] MEDS ORDERED: ALBUTEROL SULFATE 0.083% NEB 2.5 MG/3 ML AMPUL NEB ONE (03:43)
[2020-01-20] MEDS ORDERED: FUROSEMIDE INJ/PF 40 MG/4 ML SDV IV ONE (03:44)
[2020-01-20] MEDS ORDERED: OXYCODONE-ACETAMINOPHEN 5-325 MG TABLET PO PRN (03:45)
--- NOTE | 2020-01-20 04:00 | PDOC H&P ---
History of Present Illness Admission Date/PCP: LUIS CROW MD History of Present Illness: KRISTY CANTU is a 64 year old male past medical history of end-stage renal disease on hemodialysis Friday, hypertension, HIV, DVT on chronic anticoagulation, CAD, COPD, peripheral vascular disease status post right and left AKA, noncompliance presenting the ED complaining of shortness of breath, itching and chest pain. Patient presented to ED on 01/19/2020 noted to be hypertensive and hyperkalemic, left AMA, presented back to ED on 01/20/2020 complaining of nausea, vomiting, worsening shortness of breath, left-sided, nonradiating pressure-like chest pain 6/10 on severity scale, relieved by nitroglycerin, worse exertion, bilateral chronic stump pain, and anxiety. Denies any headache, visual changes, numbness, tingling, fever, chills, diarrhea or constipation. In ED noted to be very hyper tensive, with mildly elevated troponins and potassium of 8.1, Dr. Renteria nephrology was contacted who suggested for patient to be admitted and receive hemodialysis at 6 AM today. Past Medical History Cardiac Medical History: Reports: Congestive Heart Failure - EF is 40%, with moderate diastolic dysfunction, Coronary Artery Disease, DVT, Myocardial Infarction, Hyperlipidema, Hypertension, Peripheral Vascular Disease, Pulmonary Embolism Denies: Atrial Fibrillation Pulmonary Medical History: Reports: Bronchitis, Chronic Obstructive Pulmonary Disease (COPD), Pneumonia, Respiratory Failure Denies: Asthma, Sleep Apnea Neurological Medical History: Denies: Migraine, Seizures Endocrine Medical History: Reports: Diabetes Mellitus Type 2 - insulin dependent Denies: Diabetes Mellitus Type 1, Hyperthyroidism, Hypothyroidism Renal/ Medical History: Reports: End Stage Renal Disease - Dialysis MWF with Dr. Pablo Lowe GI Medical History: Reports: Gastroesophageal Reflux Disease Denies: Cirrhosis, Crohn's Disease, Hepatitis, Ulcerative Colitis Musculoskeltal Medical History: Reports: Arthritis Denies: Fibromyalgia Skin Medical History: Denies: Eczema, Psoriasis Psychiatric Medical History: Reports: Depression Traumatic Medical History: Denies: Traumatic Brain Injury Hematology: Reports: Anemia, Bleeding Tendencies - Since being on warfarin Infectious Medical History: Reports: HIV - noncompliant with meds Past Surgical History Past Surgical History: Reports: Orthopedic Surgery - bilateral amputation, R BKA, L AKA, Vascular Surgery - left arm clot removed, IVC filter, thrombectomy 05/18/2018 left arm, Other - Tunnel graft right axillary femoral bypass, dialysis fistula LUE Social History Smoking Status: Current Some Day Smoker Frequency of Alcohol Use: None Hx Recreational Drug Use: Yes Drugs: Cocaine Hx Prescription Drug Abuse: No Family History Family History: Reviewed & Not Pertinent, CAD, CVA, DM, Hyperlipidemia, Hypertension, Malignancy Parental Family History Reviewed: Yes Children Family History Reviewed: Yes Sibling(s) Family History Reviewed.: Yes Medication/Allergy Home Medications: Abacavir Sulfate [Abacavir 300 mg Tablet] 600 mg PO DAILY 08/22/19 Carvedilol [Coreg] 25 mg PO Q12 08/22/19 Clonidine HCl [Catapres 0.2 mg Tablet] 0.2 mg PO Q8 08/22/19 Clonidine [Catapres-Tts 3 (0.3 mg/24 Hr) Transderm Patch] 0.3 mg TOP TU@1000 08/22/19 Dolutegravir Sodium [Tivicay] 50 mg PO DAILY 08/22/19 Doxazosin Mesylate [Cardura 4 mg Tablet] 4 mg PO QHS 08/22/19 Fluticasone Propionate [Flovent Hfa 110 Mcg Inhalation Aerosol 12 gm] 2 puff IH BID 08/22/19 Hydralazine HCl [Apresoline 10 mg Tablet] 10 mg PO Q12 08/22/19 Isosorbide Mononitrate [Isosorbide Mononitrate ER] 120 mg PO DAILY 08/22/19 Lamivudine [Epivir] 5 ml PO DAILY 08/22/19 Nifedipine [Nifedipine ER] 90 mg PO DAILY 08/22/19 Calcium Acetate [Phoslo 667 mg Capsule] 667 mg PO MEALS 08/24/19 Warfarin Sodium 10 mg PO SUFRSA@2200 #0 08/26/19 Warfarin Sodium [Coumadin 4 mg Tablet] 8 mg PO MOTUWETH@2200 #0 08/26/19 Furosemide [Lasix 80 mg Tablet] 80 mg PO BID 10/05/19 Gabapentin [Neurontin 300 mg Capsule] 300 mg PO DAILY 30 Days #30 capsule 10/07/19 Albuterol Sulfate [Ventolin Hfa 8 gm Mdi] 2 puff IH Q4HP PRN 10/20/19 Isosorbide Mononitrate [Imdur 30 mg Tablet.er] 30 mg PO DAILY #10 tab.er.24h 11/28/19 Allergies/Adverse Reactions: calcitriol Allergy (Verified 01/19/20 02:53) itching Review of Systems Review of Systems: as per hpi Physical Exam Vital Signs: Temp Pulse Resp BP Pulse Ox 97.5 F 16 184/100 H 97 01/19/20 23:02 01/20/20 01:22 01/19/20 23:11 01/20/20 01:22 Intake & Output 01/18/20 01/19/20 01/20/20 06:59 06:59 06:59 Weight 77.1 kg General appearance: PRESENT: morbidly obese Head exam: PRESENT: atraumatic, normocephalic Respiratory exam: PRESENT: clear to auscultation ramila. ABSENT: rales, rhonchi, wheezes Cardiovascular exam: PRESENT: RRR. ABSENT: diastolic murmur, rubs, systolic murmur GI/Abdominal exam: PRESENT: normal bowel sounds, soft. ABSENT: distended, guarding, mass, organolmegaly, rebound, tenderness Extremities exam: PRESENT: full ROM, other - Left AKA, right BKA.. ABSENT: calf tenderness, clubbing, pedal edema Neurological exam: PRESENT: alert, awake, oriented to person, oriented to place, oriented to time, oriented to situation, CN II-XII grossly intact. ABSENT: motor sensory deficit Results Laboratory Results: 01/20/20 00:20 01/20/20 02:43 01/20/20 01/20/20 01/20/20 00:20 00:20 02:43 WBC 8.6 RBC 3.21 L Hgb 10.8 L Hct 31.3 L MCV 97 MCH 33.7 H MCHC 34.5 RDW 15.4 H Plt Count 232 Seg Neutrophils % 76.5 Sodium Cancelled 135.6 L Potassium Cancelled 8.1 H* D Chloride Cancelled 101 Carbon Dioxide Cancelled 22 Anion Gap Cancelled 13 BUN Cancelled 62 H Creatinine Cancelled 11.15 H Est GFR ( Amer) Cancelled 6 L Est GFR (Non-Af Amer) Cancelled Glucose Cancelled 122 H Calcium Cancelled 9.4 Total Bilirubin Cancelled 0.4 AST Cancelled 23 Alkaline Phosphatase Cancelled 51 Total Protein Cancelled 7.2 Albumin Cancelled 4.0 07/02/20 07/02/20 00:20 02:43 Troponin I 0.113 0.103 Impressions: Chest X-Ray 01/19/20 23:26 IMPRESSION: Mild progressive bibasilar atelectasis and interstitial prominence when compared to prior. No dense consolidation. Assessment and Plan - Diagnosis (1) Hyperkalemia Is this a current diagnosis for this admission?: Yes Plan: History of end-stage renal disease on hemodialysis Friday. Missed his hemodialysis on Friday as he was here in ED and unfortunately left AMA. EKG negative for any acute changes. Admit to IMCU, Kayexalate, albuterol nebs, insulin, calcium carbonate, BMP every [address] Renteria from nephrology has been consulted who will give him hemodialysis at 6 AM today. (2) Hypertensive emergency Is this a current diagnosis for this admission?: Yes Plan: Due to noncompliance. Presented with SBP of 200s. Currently on nitroglycerin drip for chest pain. Admit to IMCU, resume home meds, adjust meds as needed. (3) NSTEMI (non-ST elevated myocardial infarction) Is this a current diagnosis for this admission?: Yes Plan: No significant EKG changes. Troponins are elevated at 0.113, 0.103 respectively. Admit to IMCU, trend troponins, antiplatelets, statins, nitroglycerin, anticoagulants, IV morphine, supplemental oxygen. We will consult cardiology for further recommendation. (4) ESRD needing dialysis Is this a current diagnosis for this admission?: Yes Plan: On hemodialysis Friday. Missed hemodialysis on Friday. Nephrology consulted. Hemodialysis scheduled today at 6 AM. (5) HIV (human immunodeficiency virus infection) Qualifiers: Is this a current diagnosis for this admission?: Yes Plan: Resume home meds. Outpatient PCP follow-up. (6) History of DVT (deep vein thrombosis) Is this a current diagnosis for this admission?: Yes Plan: Anticoagulated with Coumadin. Resume Coumadin goal of INR 2-2.5. (7) Noncompliance Is this a current diagnosis for this admission?: Yes Plan: Advised on compliance.
[2020-01-20] MEDS: ASPIRIN 81 MG TABLET, CHEWABLE PO SCH ×2 (04:13→11:31)
[2020-01-20] MEDS ORDERED: IPRATROPIUM/ALBUTEROL 0.5-2.5 MG/3 ML AMPUL NEB SCH (05:00)
[2020-01-20] MEDS: ALBUTEROL SULFATE 0.083% NEB 2.5 MG/3 ML AMPUL NEB SCH ×7 (05:02→23:59)
[2020-01-20] MEDS ORDERED: HEPARIN SOD (PORCINE) 5,000 UNIT/ML 1 ML VIAL SUBCUT SCH (06:00)
[2020-01-20] MEDS ORDERED: NORMAL SALINE 1000 ML 1,000 ML IV PRN (07:59)
[2020-01-20] MEDS ORDERED: DIPHENHYDRAMINE HCL 25 MG CAPSULE PO ONE (08:00)
[2020-01-20] MEDS ORDERED: SODIUM POLYSTYRENE SULFONATE 15 GM/60 ML PO SCH (09:00)
[2020-01-20 09:12] LABS: HEMATOCRIT 31.3 % (37.9-51.0); HEMOGLOBIN 10.8 g/dL (13.5-17.0); MEAN CORPUSCULAR HGB CONC 34.6 g/dL (32.0-36.0); MEAN CORPUSCULAR VOLUME 99 fl (80-97); PLATELET COUNT 202 10^3/uL (150-450); RED BLOOD COUNT 3.18 10^6/uL (4.35-5.55); RED CELL DISTRIBUTION WIDTH 15.3 % (11.5-14.0); WHITE BLOOD COUNT 10.7 10^3/uL (4.0-10.5)
[2020-01-20] MEDS ORDERED: FAMOTIDINE 20 MG TABLET PO SCH (10:00)
[2020-01-20] MEDS ORDERED: HYDRALAZINE HCL INJ/PF 20 MG/1 ML SDV IV PRN (11:15)
[2020-01-20] MEDS: DOCUSATE SODIUM 100 MG CAPSULE PO SCH ×2 (11:26→17:44)
[2020-01-20] MEDS: ISOSORBIDE MONONITRATE 30 MG TAB.ER.24H PO SCH (11:31)
[2020-01-20] MEDS: PROMETHAZINE HCL INJ 25 MG/1 ML VIAL IV PRN (12:04)
[2020-01-20] MEDS ORDERED: HYDROCODONE/ACETAMINOPHEN 5-325 MG TABLET PO ONE (13:05)
[2020-01-20 13:36] LABS: INTERNATIONAL RATION (INR) 2.45; PROTHROMBIN TIME 27.1 SEC (11.4-15.4)
[2020-01-20 13:53] LABS: ANION GAP 13 (5-19); CALCIUM 9.7 mg/dL (8.4-10.2); CARBON DIOXIDE 30 mmol/L (22-30); CHLORIDE 94 mmol/L (98-107); GLUCOSE 140 mg/dL (75-110)
[2020-01-20 14:17] LABS: BLOOD UREA NITROGEN 27 mg/dL (7-20); POTASSIUM 3.9 mmol/L (3.6-5.0)
[2020-01-20] MEDS: ONDANSETRON HCL INJ/PF 4 MG/2 ML SDV IV PRN (14:43)
--- NOTE | 2020-01-20 16:11 | PDOC PROGRESS REPORT ---
Subjective Progress Note for:: 01/20/20 Subjective:: KRISTY CANTU is a 64 year old male past medical history of end-stage renal disease on hemodialysis Friday, hypertension, HIV, DVT on chronic anticoagulation, CAD, COPD, peripheral vascular disease status post right and left AKA, noncompliance was admitted early this morning by the shuttle buggy operator for hypertensive urgency secondary to missed dialysis session. Patient is seen on afternoon rounds following return from dialysis this morning. He was sitting up, to the edge of bed,On room air while eating his lunch. He states that he is feeling well and has no questions or concerns at this time. He denies fever, chills, chest pain, dyspnea, orthopnea, cough, abdominal pain. He does report nausea and vomiting; believes this to be related to Kayexalate provided this morning. He has had multiple bowel movements. He has no other questions or concerns at this time. No concerns per nursing. Reason For Visit: HYPERKALEMIA, HTN, ESRD Physical Exam Vital Signs: Temp Pulse Resp BP Pulse Ox 98.3 F 117 H 17 179/94 H 93 01/20/20 13:18 01/20/20 14:00 01/20/20 13:18 01/20/20 13:18 01/20/20 13:18 Intake & Output 01/19/20 01/20/20 01/21/20 06:59 06:59 06:59 Output Total 0 4600 Balance 0 -4600 Weight 68 kg 68 kg General appearance: PRESENT: no acute distress, well-developed, well-nourished Head exam: PRESENT: atraumatic, normocephalic Eye exam: PRESENT: conjunctiva pink, EOMI, PERRLA. ABSENT: scleral icterus Mouth exam: PRESENT: moist, tongue midline Teeth exam: PRESENT: poor dentation Respiratory exam: PRESENT: crackles - bibasilar, symmetrical, unlabored, other - room air. ABSENT: rales, rhonchi, wheezes Cardiovascular exam: PRESENT: RRR. ABSENT: diastolic murmur, rubs, systolic murmur Vascular exam: PRESENT: normal capillary refill Extremities exam: PRESENT: other - Left AKA, right BKA. ABSENT: calf tenderness, clubbing Neurological exam: PRESENT: alert, awake, oriented to person, oriented to place, oriented to time, oriented to situation, CN II-XII grossly intact. ABSENT: motor sensory deficit Psychiatric exam: PRESENT: appropriate affect, normal mood. ABSENT: homicidal ideation, suicidal ideation Skin exam: PRESENT: dry, intact, warm. ABSENT: cyanosis, rash Results Laboratory Results: 01/20/20 06:40 01/20/20 12:51 01/20/20 01/20/20 01/20/20 00:20 00:20 02:43 WBC 8.6 RBC 3.21 L Hgb 10.8 L Hct 31.3 L MCV 97 MCH 33.7 H MCHC 34.5 RDW 15.4 H Plt Count 232 Seg Neutrophils % 76.5 Sodium Cancelled 135.6 L Potassium Cancelled 8.1 H* D Chloride Cancelled 101 Carbon Dioxide Cancelled 22 Anion Gap Cancelled 13 BUN Cancelled 62 H Creatinine Cancelled 11.15 H Est GFR ( Amer) Cancelled 6 L Est GFR (Non-Af Amer) Cancelled Glucose Cancelled 122 H Calcium Cancelled 9.4 Total Bilirubin Cancelled 0.4 AST Cancelled 23 Alkaline Phosphatase Cancelled 51 Total Protein Cancelled 7.2 Albumin Cancelled 4.0 01/20/20 01/20/20 01/20/20 06:40 06:40 12:51 WBC 10.7 H RBC 3.18 L Hgb 10.8 L Hct 31.3 L MCV 99 H MCH 34.0 H MCHC 34.6 RDW 15.3 H Plt Count 202 Seg Neutrophils % Sodium Cancelled 136.8 L Potassium Cancelled 3.9 D Chloride Cancelled 94 L Carbon Dioxide Cancelled 30 Anion Gap Cancelled 13 BUN Cancelled 27 H D Creatinine Cancelled 6.25 H Est GFR ( Amer) Cancelled 11 L Est GFR (Non-Af Amer) Cancelled Glucose Cancelled 140 H Calcium Cancelled 9.7 Total Bilirubin AST Alkaline Phosphatase Total Protein Albumin 01/20/20 01/20/20 01/20/20 00:20 02:43 06:40 Troponin I 0.113 0.103 0.106 01/20/20 14:42 Troponin I 0.116 Impressions: Chest X-Ray 01/19/20 23:26 IMPRESSION: Mild progressive bibasilar atelectasis and interstitial prominence when compared to prior. No dense consolidation. Assessment and Plan - Diagnosis (1) Hyperkalemia Is this a current diagnosis for this admission?: Yes Plan: Resolved following kayexalate and dialysis History of end-stage renal disease on hemodialysis Friday. Missed his hemodialysis on Friday as he was here in ED and unfortunately left AMA. EKG negative for any acute changes. Admit to IMCU, Kayexalate, albuterol nebs, insulin, calcium carbonate Dr. Renteria from nephrology has been consulted Follow up chemistry (2) ESRD needing dialysis Is this a current diagnosis for this admission?: Yes Plan: On hemodialysis Friday. Missed hemodialysis on Friday. Nephrology consulted. Hemodialysis received today. Continued dialysis per nephrology's expertise. (3) Elevated troponin Is this a current diagnosis for this admission?: Yes Plan: R/t end stage renal disease on dialysis. Troponins flat; 0.113-> 0.103->0.106->0.116 Near baseline. ~0.08 No EKG changes. Denies chest pain. Monitor on telemetry. Resume aspirin, coumadin, and statin therapy. Resume home antihypertensive regimen. (4) History of DVT (deep vein thrombosis) Is this a current diagnosis for this admission?: Yes Plan: Anticoagulated with Coumadin. Resume Coumadin goal of INR 2-2.5. Pharmacy to dose. (5) HIV (human immunodeficiency virus infection) Qualifiers: Is this a current diagnosis for this admission?: Yes Plan: Resume home meds. Outpatient PCP follow-up. (6) Hypertensive emergency Is this a current diagnosis for this admission?: Yes Plan: Improved; 179/94 Due to noncompliance. Presented with SBP of 200s. Admit to IMCU, have resumed home meds, adjust meds as needed. Maintained on Nitro gtt until dialysis; blood pressures improved following. Hydralazine prn for blood pressure control. (7) Noncompliance Is this a current diagnosis for this admission?: Yes Plan: Advised on compliance. - Time Time Spent with patient: 25-34 minutes Medications reviewed and adjusted accordingly: Yes Anticipated discharge: Home Within: within 24 hours
[2020-01-20] MEDS: DIPHENHYDRAMINE HCL 25 MG CAPSULE PO PRN (17:43)
[2020-01-20] MEDS: CALCIUM ACETATE 667 MG CAPSULE PO SCH (17:44)
[2020-01-20] MEDS: FUROSEMIDE 80 MG TABLET PO SCH (17:44)
[2020-01-20] MEDS ORDERED: ABACAVIR SULFATE 300 MG PO SCH (18:00)
--- NOTE | 2020-01-20 20:29 | PDOC CONSULTATION ---
Consultation Consult Date: 01/20/20 Provider Consulted: KELLI MAYNARD Consult reason:: Hyperkalemia, ESRD requiring HD History of Present Illness Admission Date/PCP: 01/20/20 03:59 LUIS CROW MD History of Present Illness: KRISTY CANTU is a 64 year old -[place] gentleman known to me with history of end-stage renal disease on hemodialysis on MWF, hypertension, HIV, DVT on anticoagulation,'s coronary artery disease, COPD, peripheral vascular disease with right BKA and left AKA who presented to the emergency room for the third time in 24 hours complaining of shortness of breath, chest pains and itching. Patient was seen yesterday morning for some chest pain and some mildly elevated troponin with potassium of 5.7, he was discharged with instruction to keep his appointment for his dialysis yesterday at 11 AM. Unfortunately the patient did not go. He went back to the emergency room again in the early evening and this time his potassium was 5.9. He was also noted to be hypertensive. Unfortunately he signed out AGAINST MEDICAL ADVICE. And finally he presented again for the third time in desk interviewer with above complaints and this time presenting with initial work-up of potassium of 8.1. I was then called a desk interviewer for dialysis but since we do not have dialysis until this morning he was given medications in the emergency room to temporize until we get him to dialysis. He received Kayexalate, calcium gluconate, albuterol, and insulin. He also has elevated troponin. This morning I am seeing the patient during dialysis. He states that he has been short of breath since Friday. He reports some cough with some yellowish/whitish phlegm. He admits some on and off chest pains. He also has some itching and stomach pains. He denies any fever. His blood pressure is still elevated. He had missed his dialysis yesterday due to the above accounts. During dialysis this morning he seems to be very comfortable and not in distress. Past Medical History Cardiac Medical History: Reports: CHF-Diastolic, Coronary Artery Disease, DVT, Hyperlipidemia, Hypertension-primary, Myocardial Infarction, Peripheral Vascular Disease, Pulmonary Embolism Pulmonary Medical History: Reports: Bronchitis, Chronic Obstructive Pulmonary Disease (COPD), Pneumonia, Respiratory Failure Endocrine Medical History: Reports: Diabetes Mellitus Type 2 - insulin dependent Renal/ Medical History: Reports: End Stage Renal Disease - Dialysis MWF with Dr. Pablo Lowe, Hyperphosphatemia, Metabolic Acidosis GI Medical History: Reports: Gastroesophageal Reflux Disease Musculoskeltal Medical History: Reports: Arthritis Psychiatric Medical History: Reports: Depression Infectious Medical History: Reports: HIV - noncompliant with meds Hematology Medical History: Reports Anemia of Chronic Kidney Disease Past Surgical History Past Surgical History: Reports: Dialysis Access Surgery AVF, Orthopedic Surgery - bilateral amputation, R BKA, L AKA, Vascular Surgery - left arm clot removed, IVC filter, thrombectomy 05/18/2018 left arm, Other - Tunnel graft right axillary femoral bypass, dialysis fistula LUE Social History Information Source: Patient, [facility] Records Lives with: Alone Smoking Status: Current Some Day Smoker Electronic Cigarette use?: No Frequency of Alcohol Use: None Hx Recreational Drug Use: Yes Drugs: Cocaine Hx Prescription Drug Abuse: No Family History Family History: Reviewed & Not Pertinent Parental Family History Reviewed: Yes Children Family History Reviewed: Yes Sibling(s) Family History Reviewed.: Yes Medication/Allergy Home Medications: Abacavir Sulfate [Abacavir 300 mg Tablet] 300 mg PO BID 08/22/19 Carvedilol [Coreg] 25 mg PO Q12 08/22/19 Clonidine [Catapres-Tts 3 (0.3 mg/24 Hr) Transderm Patch] 0.3 mg TOP TU@1000 08/22/19 Dolutegravir Sodium [Tivicay] 50 mg PO DAILY 08/22/19 Hydralazine HCl [Apresoline 10 mg Tablet] 10 mg PO Q12 08/22/19 Isosorbide Mononitrate [Isosorbide Mononitrate ER] 120 mg PO DAILY 08/22/19 Lamivudine [Epivir] 5 ml PO DAILY 08/22/19 Calcium Acetate [Phoslo 667 mg Capsule] 667 mg PO MEALS 08/24/19 Warfarin Sodium 10 mg PO SUFRSA@2200 #0 08/26/19 Warfarin Sodium [Coumadin 4 mg Tablet] 8 mg PO MOTUWETH@2200 #0 08/26/19 Furosemide [Lasix 80 mg Tablet] 80 mg PO BID 10/05/19 Albuterol Sulfate [Ventolin Hfa 8 gm Mdi] 2 puff IH Q4HP PRN 10/20/19 Bupropion HCl [Bupropion HCl Sr] 150 mg PO BID 01/20/20 Gabapentin [Neurontin 100 mg Capsule] 100 mg PO QHS 01/20/20 Nifedipine [Nifedipine ER] 120 mg PO DAILY 01/20/20 Allergies/Adverse Reactions: calcitriol Allergy (Verified 01/19/20 02:53) itching Review of Systems All systems: reviewed and no additional remarkable complaints except as stated Review of Systems: Constitutional: ABSENT: chills, fatigue, fever(s), headache(s), weight gain, weight loss Eyes: ABSENT: visual disturbances Ears: ABSENT: hearing changes Cardiovascular: ABSENT: dyspnea on exertion, edema, orthropnea, palpitations; admits chest pains Respiratory: ABSENT: hemoptysis; admits cough and shortness of breath Gastrointestinal: ABSENT: abdominal pain, constipation, diarrhea, hematemesis, hematochezia, nausea, vomiting Genitourinary: ABSENT: dysuria, hematuria Musculoskeletal: ABSENT: joint swelling Integumentary: ABSENT: rash, wounds; admits itching Neurological: ABSENT: abnormal gait, abnormal speech, confusion, dizziness, focal weakness, numbness, syncope Psychiatric: ABSENT: anxiety, depression Endocrine: ABSENT: cold intolerance, heat intolerance, polydipsia, polyuria Hematologic/Lymphatic: ABSENT: easy bleeding, easy bruising, lymphadenopathy Physical Exam Vital Signs: Temp Pulse Resp BP Pulse Ox 97.6 F 97 21 H 184/78 H 100 01/20/20 05:13 01/20/20 05:40 01/20/20 05:13 01/20/20 06:13 01/20/20 05:18 Intake & Output 01/19/20 01/20/20 01/21/20 06:59 06:59 06:59 Output Total 0 Balance 0 Weight 68 kg Vitals during dialysis: 180/97, HR 104, Blood Flow 450 ml/min, Dialysate Flow 800 ml/min. Exam: General appearance: PRESENT: no acute distress, cooperative, well-developed, well-nourished Head exam: PRESENT: atraumatic, normocephalic Eye exam: PRESENT: conjunctiva pink, PERRLA. ABSENT: scleral icterus Neck exam: ABSENT: JVD Respiratory exam: PRESENT: Normal breath sounds. ABSENT: crackles, rales, rhonchi, unlabored, wheezes Cardiovascular exam: PRESENT: Regular rate rhythm -+S1, +S2. ABSENT: diastolic murmur, systolic murmur GI/Abdominal exam: PRESENT: normal bowel sounds, soft. ABSENT: guarding, mass, tenderness Extremities exam: ABSENT: No edema; right BKA, left AKA Neurological exam: PRESENT: alert, awake, oriented to person, place and time. Skin exam: PRESENT: dry, warm, Results Laboratory Results: 01/20/20 01/20/20 01/20/20 00:20 00:20 02:43 WBC 8.6 RBC 3.21 L Hgb 10.8 L Hct 31.3 L MCV 97 MCH 33.7 H MCHC 34.5 RDW 15.4 H Plt Count 232 Seg Neutrophils % 76.5 Sodium Cancelled 135.6 L Potassium Cancelled 8.1 H* D Chloride Cancelled 101 Carbon Dioxide Cancelled 22 Anion Gap Cancelled 13 BUN Cancelled 62 H Creatinine Cancelled 11.15 H Est GFR ( Amer) Cancelled 6 L Est GFR (Non-Af Amer) Cancelled Glucose Cancelled 122 H Calcium Cancelled 9.4 Total Bilirubin Cancelled 0.4 AST Cancelled 23 Alkaline Phosphatase Cancelled 51 Total Protein Cancelled 7.2 Albumin Cancelled 4.0 01/20/20 01/20/20 00:20 02:43 Troponin I 0.113 0.103 Impressions: Chest X-Ray 01/19/20 23:26 IMPRESSION: Mild progressive bibasilar atelectasis and interstitial prominence when compared to prior. No dense consolidation. Assessment & Plan - Diagnosis (1) Hyperkalemia Is this a current diagnosis for this admission?: Yes Plan: Emergent hemodialysis arrange early this morning. I will use a low potassium bath during dialysis treatment. Advised compliance with diet and dialysis treatment. (2) End stage renal disease Is this a current diagnosis for this admission?: Yes Plan: We will do dialysis today for 3 hours, using the patient's AV fistula, with 1K for 1-1/2 hours and 2K for another 1-1/2 hours bath, blood flow rate of 450 mL per minute, dialysate flow rate of 800 mL per minute, ultrafiltration 4 to 5 L as tolerated, no heparin and Procrit with no Retacrit. Patient is monitored very closely during dialysis treatment. Treatment will be adjusted accordingly. (3) Hypertension Qualifiers: Hypertension type: essential hypertension Qualified Code(s): I10 - Essential (primary) hypertension Is this a current diagnosis for this admission?: Yes Plan: Elevated. Needs to resume home blood pressure medications. Hopefully hemodialysis with ultrafiltration will also help decrease the blood pressure. (4) Elevated troponin Is this a current diagnosis for this admission?: Yes Plan: Needs to rule out acute cardiac event versus just effect of severe hypertension. (5) Anemia in chronic kidney disease, on chronic dialysis Is this a current diagnosis for this admission?: Yes Plan: Retacrit on dialysis as needed if hemoglobin is less than 10. (6) Noncompliance Is this a current diagnosis for this admission?: Yes - Notes Notes: Thank you very much for this consultation. - Time Time Spent: 50 to 70 Minutes
[2020-01-20] MEDS: CARVEDILOL 12.5 MG TABLET PO SCH (21:43)
[2020-01-20] MEDS: BUPROPION HCL 100 MG TABLET PO SCH (21:44)
[2020-01-20] MEDS: HYDRALAZINE HCL 10 MG TABLET PO SCH (21:44)
[2020-01-20] MEDS: GABAPENTIN 100 MG CAPSULE PO SCH (21:44)
[2020-01-20] MEDS ORDERED: WARFARIN SODIUM 4 MG TABLET PO SCH (22:00)
[2020-01-20] MEDS ORDERED: (PENDING PHARMACY ID) (Warfarin Sodium 8 MG) PO SCH (22:00)
[2020-01-20 22:21] LABS: ANION GAP 16 (5-19); BLOOD UREA NITROGEN 33 mg/dL (7-20); CALCIUM 9.3 mg/dL (8.4-10.2); CARBON DIOXIDE 28 mmol/L (22-30); CHLORIDE 93 mmol/L (98-107); GLUCOSE 109 mg/dL (75-110); POTASSIUM 4.2 mmol/L (3.6-5.0)
[2020-01-21] MEDS: ALBUTEROL SULFATE 0.083% NEB 2.5 MG/3 ML AMPUL NEB SCH ×3 (02:30→08:35)
[2020-01-21 04:49] LABS: ANION GAP 14 (5-19); BLOOD UREA NITROGEN 36 mg/dL (7-20); CALCIUM 8.9 mg/dL (8.4-10.2); CARBON DIOXIDE 28 mmol/L (22-30); CHLORIDE 94 mmol/L (98-107); GLUCOSE 106 mg/dL (75-110); HEMATOCRIT 34.2 % (37.9-51.0); HEMOGLOBIN 11.8 g/dL (13.5-17.0); MEAN CORPUSCULAR HEMOGLOBIN 33.6 pg (27.0-33.4); MEAN CORPUSCULAR HGB CONC 34.6 g/dL (32.0-36.0); MEAN CORPUSCULAR VOLUME 97 fl (80-97); PLATELET COUNT 223 10^3/uL (150-450); RED BLOOD COUNT 3.51 10^6/uL (4.35-5.55); RED CELL DISTRIBUTION WIDTH 15.4 % (11.5-14.0); WHITE BLOOD COUNT 10.3 10^3/uL (4.0-10.5)
[2020-01-21 05:02] LABS: POTASSIUM 5.2 mmol/L (3.6-5.0)
[2020-01-21] MEDS: BUPROPION HCL 100 MG TABLET PO SCH ×3 (06:11→21:39)
[2020-01-21] MEDS: ONDANSETRON HCL INJ/PF 4 MG/2 ML SDV IV PRN (08:47)
[2020-01-21] MEDS: DIPHENHYDRAMINE HCL 25 MG CAPSULE PO PRN (08:48)
[2020-01-21] MEDS: CALCIUM ACETATE 667 MG CAPSULE PO SCH ×3 (08:55→18:14)
[2020-01-21] MEDS ORDERED: LABETALOL HCL INJ 20 MG/4 ML DISP.SYRIN IV ONE (09:21)
[2020-01-21 09:59] LABS: CREATINE KINASE MB 5.24 ng/mL (<4.55)
[2020-01-21] MEDS ORDERED: LAMIVUDINE PO SCH (10:00)
[2020-01-21] MEDS ORDERED: (PENDING PHARMACY ID) (Nifedipine [Nifedipine Er] 120 MG) PO SCH (10:00)
[2020-01-21] MEDS ORDERED: (PENDING PHARMACY ID) (Dolutegravir Sodium [Tivicay] 50 MG) PO SCH (10:00)
[2020-01-21] MEDS ORDERED: (PENDING PHARMACY ID) (Isosorbide Mononitrate [Isosorbide Mononitrate Er] 120 MG) PO SCH (10:00)
--- NOTE | 2020-01-21 10:02 | RADIOLOGY REPORT (SQ) ---
EXAM DESCRIPTION: CHEST SINGLE VIEW IMAGES COMPLETED DATE/TIME: 01/21/2020 9:43 am REASON FOR STUDY: increased respiratory distress COMPARISON: AP chest 01/19/2020, 01/16/2020, 12/02/2019 EXAM PARAMETERS: NUMBER OF VIEWS: One view. TECHNIQUE: Single frontal radiographic view of the chest acquired. RADIATION DOSE: NA LIMITATIONS: None. FINDINGS: LUNGS AND PLEURA: Lungs are hyperinflated and hyperlucent. No focal infiltrates. Minimal platelike atelectasis right lung base. No pleural effusion or pneumothorax MEDIASTINUM AND HILAR STRUCTURES: No masses. Contour normal. HEART AND VASCULAR STRUCTURES: Heart normal in size. Normal vasculature. BONES: No acute findings. HARDWARE: Old surgical clips over the right anterior upper chest OTHER: No other significant finding. IMPRESSION: Minimal platelike atelectasis right lung base TECHNICAL DOCUMENTATION: JOB ID: [id number] 2010 [employer]- All Rights Reserved Reading location - IP/workstation name: [email or web address]
[2020-01-21 10:05] LABS: TROPONIN I 0.153 ng/mL
[2020-01-21] MEDS: FAMOTIDINE 20 MG TABLET PO SCH (11:42)
[2020-01-21] MEDS: NIFEDIPINE 30 MG TAB.ER.24 PO SCH (11:42)
[2020-01-21] MEDS: FUROSEMIDE 80 MG TABLET PO SCH ×2 (11:43→18:19)
[2020-01-21] MEDS: ISOSORBIDE MONONITRATE 30 MG TAB.ER.24H PO SCH (11:43)
[2020-01-21] MEDS: ASPIRIN 81 MG TABLET, CHEWABLE PO SCH (11:43)
[2020-01-21] MEDS: CARVEDILOL 12.5 MG TABLET PO SCH ×2 (11:44→21:39)
[2020-01-21] MEDS: DOCUSATE SODIUM 100 MG CAPSULE PO SCH ×2 (11:44→18:14)
[2020-01-21] MEDS: HYDRALAZINE HCL 10 MG TABLET PO SCH ×2 (11:44→21:38)
--- NOTE | 2020-01-21 12:14 | PDOC PROGRESS REPORT ---
Subjective Progress Note for:: 01/21/20 Reason For Visit: Patient seen today on dialysis. Undergoing dialysis without any issues. He complains of some shortness of breath without any history of chest pains, fever or chills. He was admitted with history of noncompliance with his dialysis treatments resulting in severe hyperkalemia of 8+. Background history includes chronic hypertension, ESRD on hemodialysis with noncompliance, history of cocaine abuse, HIV and history of multiple admissions with hypertensive emerg ency and acute on chronic congestive heart failure. Incidental evaluations also revealed that he had a troponin leak. Labs and medications were reviewed. Dialysis orders were reviewed with the treating dialysis nurse. Physical Exam Vital Signs: Temp Pulse Resp BP Pulse Ox 97.7 F 106 H 18 161/90 H 93 01/21/20 03:18 01/21/20 07:00 01/21/20 03:18 01/21/20 03:18 01/21/20 03:18 Intake & Output 01/20/20 01/21/20 01/22/20 06:59 06:59 06:59 Intake Total 820 1000 Output Total 0 4690 4000 Balance 0 -3870 -3000 Weight 68 kg 72.3 kg General appearance: PRESENT: no acute distress Respiratory exam: PRESENT: clear to auscultation ramila. ABSENT: crackles, decreased breath sounds Cardiovascular exam: PRESENT: +S1, +S2 GI/Abdominal exam: PRESENT: normal bowel sounds, soft. ABSENT: organomegaly, tenderness Extremities exam: PRESENT: pedal edema Neurological exam: PRESENT: alert, awake, oriented to person, oriented to place Psychiatric exam: PRESENT: anxious Results Laboratory Results: 01/21/20 04:01 01/21/20 04:01 01/20/20 01/20/20 01/21/20 12:51 21:56 04:01 WBC 10.3 RBC 3.51 L Hgb 11.8 L Hct 34.2 L MCV 97 MCH 33.6 H MCHC 34.6 RDW 15.4 H Plt Count 223 Sodium 136.8 L 136.5 L Potassium 3.9 D 4.2 Chloride 94 L 93 L Carbon Dioxide 30 28 Anion Gap 13 16 BUN 27 H D 33 H Creatinine 6.25 H 7.58 H Est GFR ( Amer) 11 L 9 L Glucose 140 H 109 Calcium 9.7 9.3 01/21/20 04:01 WBC RBC Hgb Hct MCV MCH MCHC RDW Plt Count Sodium 135.7 L Potassium 5.2 H D Chloride 94 L Carbon Dioxide 28 Anion Gap 14 BUN 36 H Creatinine 8.34 H Est GFR ( Amer) 8 L Glucose 106 Calcium 8.9 01/20/20 01/20/20 01/20/20 00:20 02:43 06:40 Creatine Kinase CK-MB (CK-2) Troponin I 0.113 0.103 0.106 01/20/20 01/21/20 01/21/20 14:42 04:01 04:01 Creatine Kinase 124 CK-MB (CK-2) 5.24 H Troponin I 0.116 0.153 Impressions: Chest X-Ray 01/21/20 00:00 IMPRESSION: Minimal platelike atelectasis right lung base Assessment & Plan - Diagnosis (1) ESRD needing dialysis Is this a current diagnosis for this admission?: Yes Plan: Patient currently being seen while undergoing dialysis. Dialysis going very well without any issues. Vital signs are stable. Plan to remove between 2-2.5 L as tolerated. Dialysis orders were reviewed with the treating dialysis nurse. Potassium should respond to his treatment today. However his potassium is considerably better than when he was admitted at 8. (2) Hyperkalemia Is this a current diagnosis for this admission?: Yes Plan: Come down to 5.2 from admission of 8. Advised compliance but is always fallen on deaf ears unfortunately. (3) Noncompliance Is this a current diagnosis for this admission?: Yes Plan: Discussed compliance with diet medications and ESRD and dialysis treatments. (4) CHF exacerbation Plan: See response to ultrafiltration. (5) Elevated troponin Is this a current diagnosis for this admission?: Yes Plan: As per hospitalist. (6) HIV (human immunodeficiency virus infection) Qualifiers: Is this a current diagnosis for this admission?: Yes Plan: On HAART medications. (7) Hypertension Qualifiers: Hypertension type: essential hypertension Qualified Code(s): I10 - Essential (primary) hypertension Is this a current diagnosis for this admission?: Yes Plan: Fairly well controlled. See response to dialysis and ultrafiltration. Unsure whether he has been using cocaine as patient is not always truthful about his usage. Monitor.
[2020-01-21] MEDS ORDERED: NITROGLYCERIN 0.4 MG/TAB 25 TAB/BOTTLE SL PRN (12:15)
[2020-01-21] MEDS ORDERED: NITROGLYCERIN 0.4 MG/TAB 25 TAB/BOTTLE ONE (12:26)
[2020-01-21] MEDS: PROMETHAZINE HCL INJ 25 MG/1 ML VIAL IV PRN ×2 (12:30→22:20)
--- NOTE | 2020-01-21 13:33 | PDOC PROGRESS REPORT ---
Subjective Progress Note for:: 01/21/20 Subjective:: KRISTY CANTU is a 64 year old male past medical history of end-stage renal disease on hemodialysis Friday, hypertension, HIV, DVT on chronic anticoagulation, CAD, COPD, peripheral vascular disease status post right and left AKA, noncompliance was admitted early this morning by the bulb filler for hypertensive urgency secondary to missed dialysis session. Patient is seen on morning rounds while in dialysis and early afternoon following return from dialysis. During dialysis the patient was noted to be tachypneic, diaphoretic, and complaining of dyspnea. He denied chest pain, palpiatation, cough, abd pain, n/v/d at that time. During the follow up visit, he was found to be sitting up in bed, comfortably, on supplemental oxygen via NC. He complained of generalized abd discomfort, but no nausea or vomiting at that time. He denies all other symptoms during follow up. He has no specific questions or concerns. Discussed plan of care w/ nursing. Reason For Visit: HYPERKALEMIA, HTN, ESRD Physical Exam Vital Signs: Temp Pulse Resp BP Pulse Ox 97.4 F 59 L 20 162/89 H 98 01/21/20 12:16 01/21/20 12:16 01/21/20 12:16 01/21/20 12:16 01/21/20 12:16 Intake & Output 01/20/20 01/21/20 01/22/20 06:59 06:59 06:59 Intake Total 820 1000 Output Total 0 4690 4000 Balance 0 -3870 -3000 Weight 68 kg 72.3 kg General appearance: PRESENT: no acute distress, well-developed, well-nourished Head exam: PRESENT: atraumatic, normocephalic Eye exam: PRESENT: conjunctiva pink, EOMI, PERRLA. ABSENT: scleral icterus Mouth exam: PRESENT: moist, tongue midline Teeth exam: PRESENT: poor dentation Respiratory exam: PRESENT: crackles - during dialysis; none present post-dialys is, symmetrical, unlabored, other - supplemental oxygen via nc. ABSENT: rales, wheezes Cardiovascular exam: PRESENT: RRR. ABSENT: diastolic murmur, rubs, systolic murmur Vascular exam: PRESENT: normal capillary refill GI/Abdominal exam: PRESENT: normal bowel sounds, soft, tenderness - generalized, nonspecific. ABSENT: distended, guarding, mass, organolmegaly, rebound Rectal exam: PRESENT: deferred Extremities exam: PRESENT: full ROM, other - Left AKA, Right BKA. ABSENT: calf tenderness, clubbing, pedal edema Neurological exam: PRESENT: alert, awake, oriented to person, oriented to place, oriented to time, oriented to situation, CN II-XII grossly intact. ABSENT: motor sensory deficit Psychiatric exam: PRESENT: appropriate affect, normal mood. ABSENT: homicidal ideation, suicidal ideation Skin exam: PRESENT: dry, intact, warm. ABSENT: cyanosis, rash Results Laboratory Results: 01/21/20 04:01 01/21/20 04:01 01/20/20 01/20/20 01/21/20 12:51 21:56 04:01 WBC 10.3 RBC 3.51 L Hgb 11.8 L Hct 34.2 L MCV 97 MCH 33.6 H MCHC 34.6 RDW 15.4 H Plt Count 223 Sodium 136.8 L 136.5 L Potassium 3.9 D 4.2 Chloride 94 L 93 L Carbon Dioxide 30 28 Anion Gap 13 16 BUN 27 H D 33 H Creatinine 6.25 H 7.58 H Est GFR ( Amer) 11 L 9 L Glucose 140 H 109 Calcium 9.7 9.3 01/21/20 04:01 WBC RBC Hgb Hct MCV MCH MCHC RDW Plt Count Sodium 135.7 L Potassium 5.2 H D Chloride 94 L Carbon Dioxide 28 Anion Gap 14 BUN 36 H Creatinine 8.34 H Est GFR ( Amer) 8 L Glucose 106 Calcium 8.9 01/20/20 01/20/20 01/20/20 00:20 02:43 06:40 Creatine Kinase CK-MB (CK-2) Troponin I 0.113 0.103 0.106 01/20/20 01/21/20 01/21/20 14:42 04:01 04:01 Creatine Kinase 124 CK-MB (CK-2) 5.24 H Troponin I 0.116 0.153 Impressions: Chest X-Ray 01/21/20 00:00 IMPRESSION: Minimal platelike atelectasis right lung base Assessment and Plan - Diagnosis (1) Hyperkalemia Is this a current diagnosis for this admission?: Yes Plan: History of end-stage renal disease on hemodialysis Friday. Missed his hemodialysis on Friday as he was here in ED and unfortunately left AMA. EKG negative for any acute changes. Admit to [facility] At admission, received Kayexalate, albuterol nebs, insulin, calcium carbonate Dr. Renteria from nephrology has been consulted. Dialysis per nephrology's exper tise. Follow up chemistry (2) ESRD needing dialysis Is this a current diagnosis for this admission?: Yes Plan: On hemodialysis Friday. Missed hemodialysis on last Friday. Nephrology consulted. Hemodialysis received yesterday and today. Removed ~8.6L Continued dialysis per nephrology's expertise. (3) Elevated troponin Is this a current diagnosis for this admission?: Yes Plan: R/t end stage renal disease on dialysis. Troponins flat; 0.113-> 0.103->0.106->0.116 Near baseline. ~0.08 No EKG changes. Chest pain today. EKG unchanged. Continue troponins. SL Nitro prn chest pain. Monitor on telemetry. Continue aspirin, coumadin, and statin therapy. Continue home antihypertensive regimen. UDS pending (4) History of DVT (deep vein thrombosis) Is this a current diagnosis for this admission?: Yes Plan: Anticoagulated with Coumadin. Resume Coumadin goal of INR 2-2.5. Pharmacy to dose. (5) HIV (human immunodeficiency virus infection) Qualifiers: Is this a current diagnosis for this admission?: Yes Plan: Resume home meds. Outpatient PCP follow-up. (6) Hypertensive emergency Is this a current diagnosis for this admission?: Yes Plan: Improved; 162/89 Due to noncompliance. Presented with SBP of 200s. Admit to [facility], have resumed home meds, adjust meds as needed. Hydralazine prn for blood pressure control. (7) Noncompliance Is this a current diagnosis for this admission?: Yes Plan: Advised on compliance. (8) Abdominal pain Qualifiers: Abdominal location: generalized Qualified Code(s): R10.84 - Generalized abdominal pain Is this a current diagnosis for this admission?: Yes Plan: Nonspecific abd pain; chronic per patient. Bentyl prn. Avoid opiates. Antiemetics as needed. (9) Dyspnea Qualifiers: Dyspnea type: shortness of breath Qualified Code(s): R06.02 - Shortness of breath; R06.00 - Dyspnea, unspecified; R06.01 - Orthopnea Is this a current diagnosis for this admission?: Yes Plan: Unclear etiology. Likely r/t pulmonary edema (volume overload in setting of dialysis noncompliance) and hypertensive emergency. Continue dialysis per nephrology. Continue home dose furosemide. Supplemental oxygen as needed. Scheduled and as needed nebulizer treatments. Encourage pulmonary toilet. COVID pending; low clinical suspicion but w/ high risk profile - Time Time Spent with patient: 35 or more minutes Medications reviewed and adjusted accordingly: Yes Anticipated discharge: Home
[2020-01-21 13:48] LABS: ANION GAP 17 (5-19); BLOOD UREA NITROGEN 22 mg/dL (7-20); CALCIUM 9.7 mg/dL (8.4-10.2); CARBON DIOXIDE 27 mmol/L (22-30); CHLORIDE 94 mmol/L (98-107); GLUCOSE 127 mg/dL (75-110); POTASSIUM 4.3 mmol/L (3.6-5.0)
[2020-01-21 14:01] LABS: CREATINE KINASE MB 5.54 ng/mL (<4.55); TROPONIN I 0.107 ng/mL
[2020-01-21] MEDS: IPRATROPIUM/ALBUTEROL 0.5-2.5 MG/3 ML AMPUL NEB SCH ×2 (14:07→20:15)
[2020-01-21] MEDS ORDERED: MORPHINE SULFATE 10 MG/ML INJ ONE (15:33)
[2020-01-21] MEDS ORDERED: MORPHINE SULFATE 10 MG/ML INJ IV ONE (15:45)
--- NOTE | 2020-01-21 18:26 | RADIOLOGY REPORT (SQ) ---
EXAM DESCRIPTION: NM LUNG PERFUSION SCAN IMAGES COMPLETED DATE/TIME: 01/21/2020 6:04 pm REASON FOR STUDY: dyspnea, tachycardia, hx DVT COMPARISON: 01/21/2020 RADIONUCLIDE AND DOSE: 5.3 millicuries TC-99m MAA The route of agent administration: Intravenous TECHNIQUE: Eight views of the lungs acquired following injection of MAA. LIMITATIONS: None. FINDINGS: PERFUSION: Scattered small photopenic foci are seen bilaterally. OTHER: No other significant finding. IMPRESSION: Scattered small photopenic foci are seen bilaterally. This remains nonspecific and may represent underlying parenchymal disease. Subsegmental pulmonary emboli may have a similar appearanc e. TECHNICAL DOCUMENTATION: JOB ID: [id number] 2010 [email or web address]- All Rights Reserved Reading location - IP/workstation name: [email or web address]
[2020-01-21 19:35] LABS: CREATINE KINASE MB 3.74 ng/mL (<4.55); TROPONIN I 0.102 ng/mL
[2020-01-21] MEDS: ACETAMINOPHEN 325 MG TABLET PO PRN (20:09)
[2020-01-21] MEDS: DICYCLOMINE HCL 10 MG CAPSULE PO PRN (20:11)
[2020-01-21] MEDS: GABAPENTIN 100 MG CAPSULE PO SCH (21:39)
[2020-01-21] MEDS: WARFARIN SODIUM 5 MG TABLET PO SCH (21:43)
[2020-01-21] MEDS ORDERED: WARFARIN SODIUM 10 MG PO SCH (22:00)
--- NOTE | 2020-01-21 22:11 | EKG REPORT ---
SEVERITY:- ABNORMAL ECG - SINUS TACHYCARDIA BIATRIAL ABNORMALITIES LEFT AXIS DEVIATION LEFT VENTRICULAR HYPERTROPHY BORDERLINE PROLONGED QT INTERVAL : Confirmed by: Annita oCker MD 21-Jan-2020 22:10:36
[2020-01-21 22:43] LABS: ANION GAP 16 (5-19); BLOOD UREA NITROGEN 30 mg/dL (7-20); CALCIUM 9.6 mg/dL (8.4-10.2); CARBON DIOXIDE 30 mmol/L (22-30); CHLORIDE 91 mmol/L (98-107); GLUCOSE 136 mg/dL (75-110); POTASSIUM 4.9 mmol/L (3.6-5.0)
[2020-01-22 01:53] LABS: CREATINE KINASE MB 2.5 ng/mL (<4.55); TROPONIN I 0.114 ng/mL
[2020-01-22] MEDS: IPRATROPIUM/ALBUTEROL 0.5-2.5 MG/3 ML AMPUL NEB SCH ×3 (02:08→14:47)
[2020-01-22] MEDS: BUPROPION HCL 100 MG TABLET PO SCH ×3 (05:40→21:03)
[2020-01-22 06:23] LABS: INTERNATIONAL RATION (INR) 1.75; PROTHROMBIN TIME 20.6 SEC (11.4-15.4)
[2020-01-22 06:58] LABS: ANION GAP 19 (5-19); BLOOD UREA NITROGEN 42 mg/dL (7-20); CARBON DIOXIDE 24 mmol/L (22-30); CHLORIDE 92 mmol/L (98-107); GLUCOSE 111 mg/dL (75-110); POTASSIUM 5.1 mmol/L (3.6-5.0)
[2020-01-22] MEDS: CALCIUM ACETATE 667 MG CAPSULE PO SCH ×3 (08:16→17:28)
[2020-01-22] MEDS: DOCUSATE SODIUM 100 MG CAPSULE PO SCH ×2 (09:37→17:17)
[2020-01-22] MEDS: HYDRALAZINE HCL 10 MG TABLET PO SCH ×2 (09:37→21:01)
[2020-01-22] MEDS: ASPIRIN 81 MG TABLET, CHEWABLE PO SCH (09:42)
[2020-01-22] MEDS: NIFEDIPINE 30 MG TAB.ER.24 PO SCH (09:42)
[2020-01-22] MEDS: CARVEDILOL 12.5 MG TABLET PO SCH ×2 (09:42→21:02)
[2020-01-22] MEDS: FAMOTIDINE 20 MG TABLET PO SCH (09:42)
[2020-01-22] MEDS: FUROSEMIDE 80 MG TABLET PO SCH ×2 (09:43→17:29)
[2020-01-22] MEDS: ISOSORBIDE MONONITRATE 30 MG TAB.ER.24H PO SCH (09:43)
--- NOTE | 2020-01-22 11:57 | XCELERA REPORT ---
[address] [address] Transthoracic Echocardiogram Report Name: KRISTY CANTU Age: 64 yrs Gender: Male : 1955 Patient Status: Inpatient Patient Location: [facility]^A Study Date: 01/22/2020 08:49 AM History: Dyspnea CHF Height: 52 in Weight: 159 lb BSA: 1.5 m2 Procedure: A complete two-dimensional transthoracic echocardiogram was performed (2D, M-mode, spectral and color flow Doppler). The study was technically difficult with many images being suboptimal in quality. Reason For Study: dyspnea, elevated proBNP Ordering Physician: TARIK MENDEZ Performed By: Faye Villa Interpretation Summary Left ventricular systolic function is moderately reduced. The Ejection Fraction estimate is 25-30% The right ventricle is normal in size and function. There is a trace amount of mitral regurgitation There is no aortic valve stenosis There is a trace amount of tricuspid regurgitation There is no pericardial effusion. MMode/2D Measurements & Calculations RVDd: 2.8 cm LVIDd: 5.3 cm FS: 10.9 % Ao root diam: 3.7 cm IVSd: 1.3 cm LVIDs: 4.7 cm EDV(Teich): 134.9 ml Ao root area: 10.7 cm2 LVPWd: 1.5 cm ESV(Teich): 103.0 ml EF(Teich): 23.6 % Doppler Measurements & Calculations Ao V2 max: 117.5 cm/sec LV V1 max P.4 mmHg PA V2 max: 54.0 cm/sec Ao max P.5 mmHg LV V1 max: 77.2 cm/sec PA max P.2 mmHg Left Ventricle The left ventricle is borderline dilated. There is moderate to severe concentric left ventricular hypertrophy. Left ventricular systolic function is moderately reduced. The Ejection Fraction estimate is 25-30%. LV diastolic function could not be adequately assessed. There is moderate global hypokinesis of the left ventricle. Right Ventricle The right ventricle is normal in size and function. Atria The right atrium is normal in size. The left atrium is mildly dilated. Mitral Valve The mitral valve leaflets are sclerotic and show some degree of functional abnormality. Calcified mitral apparatus. There is no mitral valve stenosis. There is a trace amount of mitral regurgitation. Aortic Valve The aortic valve is not well visualized secondary to technical limitations. There is no aortic valve stenosis. No aortic regurgitation is present. Tricuspid Valve The tricuspid valve is not well visualized, but is grossly normal. There is a trace amount of tricuspid regurgitation. Tricuspid regurgitation jet envelope not well defined to measure RV systolic pressure accurately. Pulmonic Valve The pulmonic valve is not well visualized. Great Vessels The aortic root is normal size. The inferior vena cava appeared normal and decreased > 50% with respiration (RAP 5-10 mmHg). Effusions There is no pericardial effusion. : TARIK MENDEZ Anil
[2020-01-22] MEDS: DICYCLOMINE HCL 10 MG CAPSULE PO PRN ×2 (14:45→20:50)
[2020-01-22] MEDS: PROMETHAZINE HCL INJ 25 MG/1 ML VIAL IV PRN ×2 (14:45→20:49)
--- NOTE | 2020-01-22 18:10 | CDI QUERY ---
<LUZ STAUFFER - Last Filed: 01/22/20 18:09> CDI Query CDI Review: Documentation Clarification We are seeking further clarification of documentation to reflect the severity of illness of your patient. Noted in the H&P and Progress Notes: HIV (human immunodeficiency virus infection) Qualifiers: Is this a current diagnosis for this admission?: Yes Plan: Resume home meds. Outpatient PCP follow-up. Please clarify and document the patients HIV status: HIV positive serology only HIV disease AIDS Unable to determine Other Thank you for your consideration. 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 Last check (2019) he had HIV disease.
--- NOTE | 2020-01-22 18:15 | RADIOLOGY REPORT (SQ) ---
EXAM DESCRIPTION: CT ABD/PELVIS NO ORAL OR IV IMAGES COMPLETED DATE/TIME: 01/22/2020 5:55 pm REASON FOR STUDY: diffuse abdominal pain, n/v COMPARISON: 02/15/2016 TECHNIQUE: CT scan of the abdomen and pelvis performed without intravenous or oral contrast. Images reviewed with lung, soft tissue, and bone windows. Reconstructed coronal and sagittal MPR images revi ewed. All images stored on PACS. All CT scanners at this facility use dose modulation, iterative reconstruction, and/or weight based d osing when appropriate to reduce radiation dose to as low as reasonably achievable (ALARA). [facility]: Dose Right [facility]: CareDose [facility]: Dose Right [facility]: Teradose 4D [facility]: Smart efw-suhl RADIATION DOSE: CT Rad equipment meets quality standard of care and radiation dose reduction techniq ues were employed. CTDIvol: 8.9 mGy. DLP: 489 mGy-cm.mGy. LIMITATIONS: None. FINDINGS: LOWER CHEST: Bilateral lower lobe subsegmental atelectasis. NON-CONTRASTED LIVER, SPLEEN, ADRENALS: Evaluation limited by lack of IV contrast. No identified sign ificant masses. PANCREAS: No masses. No peripancreatic inflammatory changes. GALLBLADDER: No calcified stones. No inflammatory changes to suggest cholecystitis. RIGHT KIDNEY AND URETER: Increased atrophy. Small cysts identified. No solid masses identified. No c alcified stones. No hydronephrosis or hydroureter. LEFT KIDNEY AND URETER: Increased atrophy. Small cysts identified. No solid masses identified.. No c alcified stones. No hydronephrosis or hydroureter. AORTA AND RETROPERITONEUM: Increase [place] vessel calcifications. Right axillary to femoral -femoral bypass. . No retroperitoneal masses or adenopathy. BOWEL AND PERITONEAL CAVITY: No obvious masses or inflammatory changes. No free fluid. APPENDIX: Normal. PELVIS, BLADDER, AND ABDOMINAL WALL:No abnormal masses. No free fluid. Unremarkable bladder. BONES: No acute findings. OTHER: No other significant finding. IMPRESSION: NO ACUTE FINDINGS. TECHNICAL DOCUMENTATION: JOB ID: [id number] [id number] Quality ID # [id number]: Final reports with documentation of one or more dose reduction techniques (e.g., Au tomated exposure control, adjustment of the mA and/or kV according to patient size, use of iterative reconstruction technique) 2010 [employer]- All Rights Reserved Reading location - IP/workstation name: [email or web address]
--- NOTE | 2020-01-22 19:08 | PDOC PROGRESS REPORT ---
Subjective Progress Note for:: 01/22/20 Subjective:: KRISTY CANTU is a 64 year old male past medical history of end-stage renal disease on hemodialysis Friday, hypertension, HIV, DVT on chronic anticoagulation, CAD, COPD, peripheral vascular disease status post right and left AKA, noncompliance was admitted early this morning by the inspector canned food reconditioning for hypertensive urgency secondary to missed dialysis session. Patient is seen on afternoon rounds. He was found resting in bed maintaining oxygen saturations on room air. He continues to report generalized, nonspecific, abdominal pain. He cannot quantify or describe his discomfort further. Reports mild nausea but no further episodes of emesis. He denies diarrhea or constipation. He further denies fever, chills, chest pain, palpitations, dyspnea, orthopnea He has no other questions or concerns. No concerns per nursing Reason For Visit: HYPERKALEMIA, HTN, ESRD Physical Exam Vital Signs: Temp Pulse Resp BP Pulse Ox 98.1 F 107 H 16 149/86 H 91 L 01/22/20 15:41 01/22/20 15:41 01/22/20 15:41 01/22/20 15:41 01/22/20 15:41 Intake & Output 01/21/20 01/22/20 01/23/20 06:59 06:59 06:59 Intake Total 820 1150 518 Output Total 4690 4000 Balance -2780 -1350 518 Weight 72.3 kg 72.3 kg General appearance: PRESENT: no acute distress, well-developed, well-nourished Head exam: PRESENT: atraumatic, normocephalic Eye exam: PRESENT: conjunctiva pink, EOMI, PERRLA. ABSENT: scleral icterus Mouth exam: PRESENT: moist, tongue midline Teeth exam: PRESENT: poor dentation Respiratory exam: PRESENT: clear to auscultation ramila, symmetrical, unlabored, other - room air. ABSENT: rales, rhonchi, wheezes Cardiovascular exam: PRESENT: RRR GI/Abdominal exam: PRESENT: normal bowel sounds, soft, tenderness. ABSENT: distended, guarding, mass, organolmegaly, rebound Extremities exam: PRESENT: other - Left AKA, Right BKA Neurological exam: PRESENT: alert, awake, oriented to person, oriented to place, oriented to time, oriented to situation, CN II-XII grossly intact. ABSENT: motor sensory deficit Psychiatric exam: PRESENT: appropriate affect, normal mood. ABSENT: homicidal ideation, suicidal ideation Skin exam: PRESENT: dry, intact, warm. ABSENT: cyanosis, rash Results Laboratory Results: 01/21/20 04:01 01/22/20 05:25 01/21/20 01/22/20 19:00 05:25 Sodium 137.0 135.0 L Potassium 4.9 5.1 H Chloride 91 L 92 L Carbon Dioxide 30 24 Anion Gap 16 19 BUN 30 H 42 H Creatinine 6.57 H 7.59 H Est GFR ( Amer) 10 L 9 L Glucose 136 H 111 H Calcium 9.6 9.0 01/20/20 01/20/20 01/20/20 00:20 02:43 06:40 Creatine Kinase CK-MB (CK-2) Troponin I 0.113 0.103 0.106 NT-Pro-B Natriuret Pep 01/20/20 01/21/20 01/21/20 14:42 04:01 04:01 Creatine Kinase 124 CK-MB (CK-2) 5.24 H Troponin I 0.116 0.153 NT-Pro-B Natriuret Pep 01/21/20 01/21/20 01/21/20 12:48 12:48 12:48 Creatine Kinase 143 CK-MB (CK-2) 5.54 H Troponin I 0.107 NT-Pro-B Natriuret Pep 94431 H 01/21/20 01/21/20 01/22/20 19:00 19:00 01:17 Creatine Kinase 104 90 CK-MB (CK-2) 3.74 Troponin I 0.102 NT-Pro-B Natriuret Pep 01/22/20 01:17 Creatine Kinase CK-MB (CK-2) 2.50 Troponin I 0.114 NT-Pro-B Natriuret Pep Impressions: Chest X-Ray 01/21/20 00:00 IMPRESSION: Minimal platelike atelectasis right lung base Lung Scan-VQ NM 01/21/20 00:00 IMPRESSION: Scattered small photopenic foci are seen bilaterally. This remains nonspecific and may represent underlying parenchymal disease. Subsegmental pulmonary emboli may have a similar appearance. Abdomen/Pelvis CT 01/22/20 00:00 IMPRESSION: NO ACUTE FINDINGS. Assessment and Plan - Diagnosis (1) Hyperkalemia Is this a current diagnosis for this admission?: Yes Plan: Persistent. History of end-stage renal disease on hemodialysis Friday. Missed his hemodialysis on Friday as he was here in ED and unfortunately left AMA. EKG negative for any acute changes. Admit to [facility] At admission, received Kayexalate, albuterol nebs, insulin, calcium carbonate Dr. Renteria from nephrology has been consulted. Dialysis per nephrology's expertise. Start Veltassa Have resumed home dose furosemide. Follow up chemistry (2) ESRD needing dialysis Is this a current diagnosis for this admission?: Yes Plan: On hemodialysis Friday. Missed hemodialysis last Friday. Nephrology consulted. Hemodialysis received yesterday and today. Removed ~8.6L Continued dialysis per nephrology's expertise. (3) Elevated troponin Is this a current diagnosis for this admission?: Yes Plan: R/t end stage renal disease on dialysis. Troponins flat; 0.113-> 0.103->0.106->0.116 Near baseline. ~0.08 No EKG changes. Chest pain today. EKG unchanged. Continue troponins. SL Nitro prn chest pain. Monitor on telemetry. Continue aspirin, coumadin, and statin therapy. Continue home antihypertensive regimen. UDS pending (4) History of DVT (deep vein thrombosis) Is this a current diagnosis for this admission?: Yes Plan: Anticoagulated with Coumadin. Resume Coumadin goal of INR 2-2.5. Pharmacy to dose. (5) HIV (human immunodeficiency virus infection) Qualifiers: Qualified Code(s): Z21 - Asymptomatic human immunodeficiency virus [HIV] infection status Is this a current diagnosis for this admission?: Yes Plan: Resume home meds. Outpatient PCP follow-up. (6) Hypertensive emergency Is this a current diagnosis for this admission?: Yes Plan: Improved; 149/86 Due to noncompliance. Presented with SBP of 200s. Admit to [facility] Have resumed home dose carvedilol, clonidine patches, p.o. hydralazine, Imdur, Procardia, and furosemide. Hydralazine prn for blood pressure control. (7) Noncompliance Is this a current diagnosis for this admission?: Yes Plan: Advised on compliance. (8) Abdominal pain Qualifiers: Abdominal location: generalized Qualified Code(s): R10.84 - Generalized abdominal pain Is this a current diagnosis for this admission?: Yes Plan: Nonspecific abd pain; chronic per patient. Abdominal/pelvic CT is benign. Bentyl prn. Avoid opiates. Antiemetics as needed. (9) Dyspnea Qualifiers: Dyspnea type: shortness of breath Qualified Code(s): R06.02 - Shortness of breath; R06.00 - Dyspnea, unspecified; R06.01 - Orthopnea Is this a current diagnosis for this admission?: Yes Plan: Resolved. Likely r/t pulmonary edema (volume overload in setting of dialysis noncompliance) and hypertensive emergency. Continue dialysis per nephrology. Continue home dose furosemide. Supplemental oxygen as needed. Scheduled and as needed nebulizer treatments. Encourage pulmonary toilet. COVID negative (10) Chronic combined systolic and diastolic CHF (congestive heart failure) Is this a current diagnosis for this admission?: Yes Plan: Echocardiogram reveals LVEF 25 to 30% proBNP 58k, increased from baseline of 22k Troponins flat at ~0.114 Continue dialysis. Encouraged patient to stop cocaine use Have resumed home dose carvedilol, clonidine patches, p.o. hydralazine, Imdur, Procardia, furosemide, aspirin and statin therapy. Discussed with Dr. Shah; recommends that patient have ischemic evaluation. Discussed with the patient, he is established with [facility]. He is encouraged to follow-up immediately upon discharge. Strict I&O's, daily weights. - Time Time Spent with patient: 25-34 minutes
[2020-01-22] MEDS: ACETAMINOPHEN 325 MG TABLET PO PRN (20:48)
[2020-01-22] MEDS: GABAPENTIN 100 MG CAPSULE PO SCH (21:02)
[2020-01-22] MEDS: WARFARIN SODIUM 5 MG TABLET PO SCH (21:02)
[2020-01-23] MEDS: IPRATROPIUM/ALBUTEROL 0.5-2.5 MG/3 ML AMPUL NEB SCH ×4 (00:05→20:49)
[2020-01-23] MEDS: PATIROMER 8.4 GM SUSP PACKET PO SCH ×2 (02:23→17:30)
[2020-01-23 05:46] LABS: HEMATOCRIT 35.3 % (37.9-51.0); HEMOGLOBIN 12.3 g/dL (13.5-17.0); MEAN CORPUSCULAR HEMOGLOBIN 33.7 pg (27.0-33.4); MEAN CORPUSCULAR HGB CONC 34.8 g/dL (32.0-36.0); MEAN CORPUSCULAR VOLUME 97 fl (80-97); PLATELET COUNT 217 10^3/uL (150-450); RED BLOOD COUNT 3.64 10^6/uL (4.35-5.55); RED CELL DISTRIBUTION WIDTH 15.4 % (11.5-14.0); WHITE BLOOD COUNT 13.5 10^3/uL (4.0-10.5)
[2020-01-23 05:57] LABS: INTERNATIONAL RATION (INR) 1.91; PROTHROMBIN TIME 22.2 SEC (11.4-15.4)
[2020-01-23 06:06] LABS: ANION GAP 19 (5-19); CALCIUM 9.2 mg/dL (8.4-10.2); CARBON DIOXIDE 24 mmol/L (22-30); CHLORIDE 89 mmol/L (98-107); GLUCOSE 110 mg/dL (75-110); POTASSIUM 4.6 mmol/L (3.6-5.0)
[2020-01-23 06:08] LABS: BLOOD UREA NITROGEN 62 mg/dL (7-20)
[2020-01-23] MEDS: BUPROPION HCL 100 MG TABLET PO SCH ×3 (06:13→21:25)
[2020-01-23] MEDS: CALCIUM ACETATE 667 MG CAPSULE PO SCH ×3 (07:55→17:31)
[2020-01-23] MEDS: NIFEDIPINE 30 MG TAB.ER.24 PO SCH (09:48)
[2020-01-23] MEDS: ASPIRIN 81 MG TABLET, CHEWABLE PO SCH (09:48)
[2020-01-23] MEDS: FUROSEMIDE 80 MG TABLET PO SCH ×2 (09:48→17:31)
[2020-01-23] MEDS: FAMOTIDINE 20 MG TABLET PO SCH (09:49)
[2020-01-23] MEDS: HYDRALAZINE HCL 10 MG TABLET PO SCH ×2 (09:49→21:24)
[2020-01-23] MEDS: CARVEDILOL 12.5 MG TABLET PO SCH ×2 (09:49→21:24)
[2020-01-23] MEDS: DOCUSATE SODIUM 100 MG CAPSULE PO SCH ×2 (09:49→17:30)
[2020-01-23] MEDS: ISOSORBIDE MONONITRATE 30 MG TAB.ER.24H PO SCH (09:49)
--- NOTE | 2020-01-23 16:02 | PDOC PROGRESS REPORT ---
Subjective Progress Note for:: 01/23/20 Subjective:: KRISTY CANTU is a 64 year old male past medical history of end-stage renal disease on hemodialysis Friday, hypertension, HIV, DVT on chronic anticoagulation, CAD, COPD, peripheral vascular disease status post right and left AKA, noncompliance was admitted early this morning by the community relations officer for hypertensive urgency secondary to missed dialysis session. Patient is seen on afternoon rounds. He was found resting in bed maintaining oxygen saturations on room air. He continues to report generalized, nonspecific, abdominal pain. He cannot quantify or describe his discomfort further. States that it is similar to pain he has had in the past when he was told he may need his gallbladder removed. No further episodes of nausea/emesis. Eating 100% of meals. He further denies fever, chills, chest pain, palpitations, dyspnea, orthopnea He has no other questions or concerns. No concerns per nursing Reason For Visit: HYPERKALEMIA, HTN, ESRD Physical Exam Vital Signs: Temp Pulse Resp BP Pulse Ox 97.9 F 99 18 157/85 H 92 01/23/20 11:56 01/23/20 15:12 01/23/20 15:12 01/23/20 11:56 01/23/20 15:12 Intake & Output 01/22/20 01/23/20 01/24/20 06:59 06:59 06:59 Intake Total 1150 1018 440 Output Total 4000 0 Balance -2850 1018 440 Weight 72.3 kg 70 kg General appearance: PRESENT: no acute distress, well-developed, well-nourished Head exam: PRESENT: atraumatic, normocephalic Eye exam: PRESENT: conjunctiva pink, EOMI, PERRLA. ABSENT: scleral icterus Mouth exam: PRESENT: moist, tongue midline Teeth exam: PRESENT: poor dentation Respiratory exam: PRESENT: clear to auscultation ramila, symmetrical, unlabored, other - room air. ABSENT: rales, rhonchi, wheezes Cardiovascular exam: PRESENT: RRR. ABSENT: diastolic murmur, rubs, systolic murmur Pulses: PRESENT: normal dorsalis pedis pul Vascular exam: PRESENT: normal capillary refill GI/Abdominal exam: PRESENT: normal bowel sounds, soft, tenderness - diffuse/vague tenderness. ABSENT: distended, guarding, mass, organolmegaly, rebound Extremities exam: PRESENT: other - Left AKA, Right BKA Neurological exam: PRESENT: alert, awake, oriented to person, oriented to place, oriented to time, oriented to situation, CN II-XII grossly intact. ABSENT: motor sensory deficit Psychiatric exam: PRESENT: appropriate affect, normal mood. ABSENT: homicidal ideation, suicidal ideation Skin exam: PRESENT: dry, intact, warm. ABSENT: cyanosis, rash Results Laboratory Results: 01/23/20 05:04 01/23/20 05:04 01/23/20 01/23/20 05:04 05:04 WBC 13.5 H RBC 3.64 L Hgb 12.3 L Hct 35.3 L MCV 97 MCH 33.7 H MCHC 34.8 RDW 15.4 H Plt Count 217 Sodium 132.2 L Potassium 4.6 Chloride 89 L Carbon Dioxide 24 Anion Gap 19 BUN 62 H D Creatinine 10.26 H Est GFR ( Amer) 6 L Glucose 110 Calcium 9.2 01/20/20 01/20/20 01/20/20 00:20 02:43 06:40 Creatine Kinase CK-MB (CK-2) Troponin I 0.113 0.103 0.106 NT-Pro-B Natriuret Pep 01/20/20 01/21/20 01/21/20 14:42 04:01 04:01 Creatine Kinase 124 CK-MB (CK-2) 5.24 H Troponin I 0.116 0.153 NT-Pro-B Natriuret Pep 01/21/20 01/21/20 01/21/20 12:48 12:48 12:48 Creatine Kinase 143 CK-MB (CK-2) 5.54 H Troponin I 0.107 NT-Pro-B Natriuret Pep 97114 H 01/21/20 01/21/20 01/22/20 19:00 19:00 01:17 Creatine Kinase 104 90 CK-MB (CK-2) 3.74 Troponin I 0.102 NT-Pro-B Natriuret Pep 01/22/20 01:17 Creatine Kinase CK-MB (CK-2) 2.50 Troponin I 0.114 NT-Pro-B Natriuret Pep Impressions: Chest X-Ray 01/21/20 00:00 IMPRESSION: Minimal platelike atelectasis right lung base Lung Scan-VQ NM 01/21/20 00:00 IMPRESSION: Scattered small photopenic foci are seen bilaterally. This remains nonspecific and may represent underlying parenchymal disease. Subsegmental pulmonary emboli may have a similar appearance. Abdomen/Pelvis CT 01/22/20 00:00 IMPRESSION: NO ACUTE FINDINGS. Assessment and Plan - Diagnosis (1) Hyperkalemia Is this a current diagnosis for this admission?: Yes Plan: Resolved. History of end-stage renal disease on hemodialysis Friday. Missed his hemodialysis on Friday as he was here in ED and unfortunately left AMA. EKG negative for any acute changes. Admit to [facility] At admission, received Kayexalate, albuterol nebs, insulin, calcium carbonate Dr. Renteria from nephrology has been consulted. Dialysis per nephrology's expertise. Continue Veltassa Have resumed home dose furosemide. Follow up chemistry (2) ESRD needing dialysis Is this a current diagnosis for this admission?: Yes Plan: On hemodialysis Friday. Missed hemodialysis last Friday. Nephrology consulted. Hemodialysis received yesterday and today. Removed ~8.6L Continued dialysis per nephrology's expertise. (3) Elevated troponin Is this a current diagnosis for this admission?: Yes Plan: R/t end stage renal disease on dialysis. Troponins flat; 0.113-> 0.103->0.106->0.116 Near baseline. ~0.08 No EKG changes. Chest pain today. EKG unchanged. Continue troponins. SL Nitro prn chest pain. Monitor on telemetry. Continue aspirin, coumadin, and statin therapy. Continue home antihypertensive regimen. UDS pending (4) History of DVT (deep vein thrombosis) Is this a current diagnosis for this admission?: Yes Plan: Anticoagulated with Coumadin. Resume Coumadin goal of INR 2-2.5. Pharmacy to dose. (5) HIV (human immunodeficiency virus infection) Qualifiers: Qualified Code(s): Z21 - Asymptomatic human immunodeficiency virus [HIV] infection status Is this a current diagnosis for this admission?: Yes Plan: Resume home meds. Outpatient PCP follow-up. (6) Hypertensive emergency Is this a current diagnosis for this admission?: Yes Plan: Improved Due to noncompliance. Presented with SBP of 200s. Admit to [facility] Have resumed home dose carvedilol, clonidine patches, p.o. hydralazine, Imdur, Procardia, and furosemide. Hydralazine prn for blood pressure control. (7) Noncompliance Is this a current diagnosis for this admission?: Yes Plan: Advised on compliance. (8) Abdominal pain Qualifiers: Abdominal location: generalized Qualified Code(s): R10.84 - Generalized abdominal pain Is this a current diagnosis for this admission?: Yes Plan: Nonspecific abd pain; chronic per patient. Abdominal/pelvic CT is benign. Bentyl prn. Continue Protonix Avoid opiates. Antiemetics as needed. Recommend outpatient GI follow up. (9) Dyspnea Qualifiers: Dyspnea type: shortness of breath Qualified Code(s): R06.02 - Shortness of breath; R06.00 - Dyspnea, unspecified; R06.01 - Orthopnea Is this a current diagnosis for this admission?: Yes Plan: Resolved. Likely r/t pulmonary edema (volume overload in setting of dialysis noncompliance) and hypertensive emergency. Continue dialysis per nephrology. Continue home dose furosemide. Supplemental oxygen as needed. Scheduled and as needed nebulizer treatments. Encourage pulmonary toilet. COVID negative (10) Chronic combined systolic and diastolic CHF (congestive heart failure) Is this a current diagnosis for this admission?: Yes Plan: Echocardiogram reveals LVEF 25 to 30% proBNP 58k, increased from baseline of 22k Troponins flat at ~0.114 Continue dialysis. Encouraged patient to stop cocaine use Have resumed home dose carvedilol, clonidine patches, p.o. hydralazine, Imdur, Procardia, furosemide, aspirin and statin therapy. Discussed with Dr. Shah; recommends that patient have ischemic evaluation. Discussed with the patient, he is established with [facility]. He is encouraged to follow-up immediately upon discharge. Strict I&O's, daily weights. - Time Time Spent with patient: 25-34 minutes Medications reviewed and adjusted accordingly: Yes Anticipated discharge: Home Within: within 24 hours - following dialysis
[2020-01-23] MEDS: DICYCLOMINE HCL 10 MG CAPSULE PO PRN (21:25)
[2020-01-23] MEDS: PROMETHAZINE HCL INJ 25 MG/1 ML VIAL IV PRN (21:25)
[2020-01-23] MEDS: GABAPENTIN 100 MG CAPSULE PO SCH (21:25)
[2020-01-23] MEDS: WARFARIN SODIUM 5 MG TABLET PO SCH (21:27)
[2020-01-24] MEDS: BUPROPION HCL 100 MG TABLET PO SCH ×2 (05:41→14:40)
[2020-01-24 06:35] LABS: HEMATOCRIT 35.3 % (37.9-51.0); HEMOGLOBIN 12.2 g/dL (13.5-17.0); MEAN CORPUSCULAR HEMOGLOBIN 33.2 pg (27.0-33.4); MEAN CORPUSCULAR HGB CONC 34.5 g/dL (32.0-36.0); MEAN CORPUSCULAR VOLUME 96 fl (80-97); PLATELET COUNT 218 10^3/uL (150-450); RED BLOOD COUNT 3.67 10^6/uL (4.35-5.55); RED CELL DISTRIBUTION WIDTH 15.6 % (11.5-14.0); WHITE BLOOD COUNT 13.9 10^3/uL (4.0-10.5)
[2020-01-24 06:56] LABS: BLOOD UREA NITROGEN 80 mg/dL (7-20); CARBON DIOXIDE 22 mmol/L (22-30); CHLORIDE 89 mmol/L (98-107); GLUCOSE 115 mg/dL (75-110)
[2020-01-24 07:04] LABS: ANION GAP 21 (5-19)
[2020-01-24 07:15] LABS: INTERNATIONAL RATION (INR) 2.43; PROTHROMBIN TIME 26.9 SEC (11.4-15.4)
[2020-01-24 07:30] LABS: APPEARANCE,URINE CLOUDY; BILIRUBIN,URINE NEGATIVE (NEGATIVE); COLOR,URINE YELLOW; GLUCOSE, URINE NEGATIVE (NEGATIVE); KETONES,URINE NEGATIVE (NEGATIVE); LEUKOCYTE ESTERASE,URINE LARGE (NEGATIVE); NITRITE,URINE NEGATIVE (NEGATIVE); PROTEIN,URINE 100 mg/dL (NEGATIVE); URINE SPECIFIC GRAVITY 1.011; UROBILINOGEN,URINE NEGATIVE mg/dL (<2.0)
[2020-01-24] MEDS: IPRATROPIUM/ALBUTEROL 0.5-2.5 MG/3 ML AMPUL NEB SCH (08:03)
[2020-01-24] MEDS ORDERED: ACETAMINOPHEN 325 MG TABLET PO PRN (08:26)
[2020-01-24] MEDS ORDERED: PROMETHAZINE HCL INJ 25 MG/1 ML VIAL IV PRN ×2 (08:30)
[2020-01-24] MEDS: CALCIUM ACETATE 667 MG CAPSULE PO SCH ×2 (08:46→12:09)
--- NOTE | 2020-01-24 10:08 | PDOC PROGRESS REPORT ---
Subjective Progress Note for:: 01/24/20 Reason For Visit: Patient seen on dialysis today. He is overall feeling better even though he is still has some mild nausea. No complaints of any chest pain or shortness of breath. Labs and medications were reviewed. Vital signs are stable. Dialysis orders were reviewed with the treating dialysis nurse. Physical Exam Vital Signs: Temp Pulse Resp BP Pulse Ox 98.1 F 91 16 148/75 H 96 01/24/20 03:15 01/24/20 08:06 01/24/20 08:06 01/24/20 03:15 01/24/20 08:06 Intake & Output 01/23/20 01/24/20 01/25/20 06:59 06:59 06:59 Intake Total 1018 540 Output Total 0 0 Balance 1018 540 Weight 70 kg 71.5 kg General appearance: PRESENT: no acute distress Respiratory exam: PRESENT: clear to auscultation ramila. ABSENT: crackles Cardiovascular exam: PRESENT: +S1, +S2 GI/Abdominal exam: PRESENT: normal bowel sounds, soft. ABSENT: organomegaly, tenderness Neurological exam: PRESENT: alert, awake, oriented to person, oriented to place Psychiatric exam: PRESENT: appropriate affect Results Laboratory Results: 01/24/20 06:20 01/24/20 06:20 01/24/20 01/24/20 01/24/20 06:00 06:20 06:20 WBC 13.9 H RBC 3.67 L Hgb 12.2 L Hct 35.3 L MCV 96 MCH 33.2 MCHC 34.5 RDW 15.6 H Plt Count 218 Sodium 131.9 L Potassium 5.0 Chloride 89 L Carbon Dioxide 22 Anion Gap 21 H BUN 80 H Creatinine 12.52 H Est GFR ( Amer) 5 L Glucose 115 H Calcium 9.0 Urine Color YELLOW Urine Appearance CLOUDY Urine pH 8.0 Ur Specific [place] 1.011 Urine Protein 100 H Urine Glucose (UA) NEGATIVE Urine Ketones NEGATIVE Urine Blood SMALL H Urine Nitrite NEGATIVE Ur Leukocyte Esterase LARGE H Urine WBC (Auto) 117 Urine RBC (Auto) 7 01/20/20 01/20/20 01/20/20 00:20 02:43 06:40 Creatine Kinase CK-MB (CK-2) Troponin I 0.113 0.103 0.106 NT-Pro-B Natriuret Pep 01/20/20 01/21/20 01/21/20 14:42 04:01 04:01 Creatine Kinase 124 CK-MB (CK-2) 5.24 H Troponin I 0.116 0.153 NT-Pro-B Natriuret Pep 01/21/20 01/21/20 01/21/20 12:48 12:48 12:48 Creatine Kinase 143 CK-MB (CK-2) 5.54 H Troponin I 0.107 NT-Pro-B Natriuret Pep 01659 H 01/21/20 01/21/20 01/22/20 19:00 19:00 01:17 Creatine Kinase 104 90 CK-MB (CK-2) 3.74 Troponin I 0.102 NT-Pro-B Natriuret Pep 01/22/20 01:17 Creatine Kinase CK-MB (CK-2) 2.50 Troponin I 0.114 NT-Pro-B Natriuret Pep Impressions: Chest X-Ray 01/21/20 00:00 IMPRESSION: Minimal platelike atelectasis right lung base Lung Scan-VQ NM 01/21/20 00:00 IMPRESSION: Scattered small photopenic foci are seen bilaterally. This remains nonspecific and may represent underlying parenchymal disease. Subsegmental pulm onary emboli may have a similar appearance. Abdomen/Pelvis CT 01/22/20 00:00 IMPRESSION: NO ACUTE FINDINGS. Assessment & Plan - Diagnosis (1) ESRD needing dialysis Is this a current diagnosis for this admission?: Yes Plan: Patient currently being seen while undergoing dialysis. Dialysis going very well without any issues. Vital signs are stable. Plan to remove between 2-2.5 L as tolerated. Dialysis orders were reviewed with the treating dialysis nurse. (2) Hyperkalemia Is this a current diagnosis for this admission?: Yes Plan: Come down to 5.0 from admission of 8. Advised compliance but is always fallen on deaf ears unfortunately. (3) Noncompliance Is this a current diagnosis for this admission?: Yes Plan: Discussed compliance with diet medications and ESRD and dialysis treatments. (4) CHF exacerbation Plan: Resolved. (5) Elevated troponin Is this a current diagnosis for this admission?: Yes Plan: As per hospitalist. (6) HIV (human immunodeficiency virus infection) Qualifiers: Qualified Code(s): Z21 - Asymptomatic human immunodeficiency virus [HIV] infection status Is this a current diagnosis for this admission?: Yes Plan: On HAART medications. (7) Hypertension Qualifiers: Hypertension type: essential hypertension Qualified Code(s): I10 - Essential (primary) hypertension Is this a current diagnosis for this admission?: Yes Plan: Fairly well controlled. See response to dialysis and ultrafiltration.Monitor. (8) Nausea Plan: I note that the urine analysis done is suggestive of UTI. His white count is climbing. I would proceed with a culture and start him empirically on antibiotics pending culture results.
[2020-01-24] MEDS: ASPIRIN 81 MG TABLET, CHEWABLE PO SCH (10:41)
[2020-01-24] MEDS: FAMOTIDINE 20 MG TABLET PO SCH (10:41)
[2020-01-24] MEDS: DOCUSATE SODIUM 100 MG CAPSULE PO SCH (10:41)
[2020-01-24] MEDS: NIFEDIPINE 30 MG TAB.ER.24 PO SCH (10:41)
[2020-01-24] MEDS: ISOSORBIDE MONONITRATE 30 MG TAB.ER.24H PO SCH (10:41)
[2020-01-24] MEDS: DICYCLOMINE HCL 10 MG CAPSULE PO PRN (10:41)
[2020-01-24] MEDS: CARVEDILOL 12.5 MG TABLET PO SCH (10:41)
[2020-01-24] MEDS: FUROSEMIDE 80 MG TABLET PO SCH (10:41)
[2020-01-24] MEDS: HYDRALAZINE HCL 10 MG TABLET PO SCH (10:41)
[2020-01-24] MEDS ORDERED: OXYCODONE-ACETAMINOPHEN 5-325 MG TABLET PO ONE (10:44)
[2020-01-24] MEDS ORDERED: LEVOFLOXACIN 750 MG TABLET PO ONE (12:00)
[2020-01-24 14:11] VITALS: BP 185/87
--- NOTE | 2020-01-27 07:30 | PDOC DISCHARGE SUMMARY ---
Impression - Admit/DC Date/PCP Admission Date/Primary Care Provider: 01/20/20 03:59 LUIS CROW MD Discharge Date: 01/24/20 - Discharge Diagnosis (1) Hyperkalemia Is this a current diagnosis for this admission?: Yes (2) ESRD needing dialysis Is this a current diagnosis for this admission?: Yes (3) Elevated troponin Is this a current diagnosis for this admission?: Yes (4) History of DVT (deep vein thrombosis) Is this a current diagnosis for this admission?: Yes (5) HIV (human immunodeficiency virus infection) Is this a current diagnosis for this admission?: Yes (6) Hypertensive emergency Is this a current diagnosis for this admission?: Yes (7) Noncompliance Is this a current diagnosis for this admission?: Yes (8) Abdominal pain Is this a current diagnosis for this admission?: Yes (9) Dyspnea Is this a current diagnosis for this admission?: Yes (10) Chronic combined systolic and diastolic CHF (congestive heart failure) Is this a current diagnosis for this admission?: Yes (11) UTI (urinary tract infection) Is this a current diagnosis for this admission?: Yes - Additional Information Discharge Diet: Other (Comments) Discharge Activity: Activity As Tolerated, Balance Activity w/Rest Referrals: [facility] [Provider Group] - 01/27/20 11:00 am Prescriptions: Levofloxacin [Levaquin 500 mg Tablet] 500 mg PO Q48H #2 tablet Oxycodone HCl/Acetaminophen [Percocet 5-325 mg Tablet] 1 tab PO Q6H PRN #12 tab PRN Reason: Home Medications: Abacavir Sulfate [Abacavir 300 mg Tablet] 300 mg PO BID 08/22/19 Carvedilol [Coreg] 25 mg PO Q12 08/22/19 Clonidine [Catapres-Tts 3 (0.3 mg/24 Hr) Transderm Patch] 0.3 mg TOP TU@1000 08/22/19 Dolutegravir Sodium [Tivicay] 50 mg PO DAILY 08/22/19 Hydralazine HCl [Apresoline 10 mg Tablet] 10 mg PO Q12 08/22/19 Isosorbide Mononitrate [Isosorbide Mononitrate ER] 120 mg PO DAILY 08/22/19 Lamivudine [Epivir] 5 ml PO DAILY 08/22/19 Calcium Acetate [Phoslo 667 mg Capsule] 667 mg PO MEALS 08/24/19 Warfarin Sodium 10 mg PO SUFRSA@2200 #0 08/26/19 Warfarin Sodium [Coumadin 4 mg Tablet] 8 mg PO MOTUWETH@2200 #0 08/26/19 Furosemide [Lasix 80 mg Tablet] 80 mg PO BID 10/05/19 Albuterol Sulfate [Ventolin Hfa 8 gm Mdi] 2 puff IH Q4HP PRN 10/20/19 Bupropion HCl [Bupropion HCl Sr] 150 mg PO BID 01/20/20 Gabapentin [Neurontin 100 mg Capsule] 100 mg PO QHS 01/20/20 Nifedipine [Nifedipine ER] 120 mg PO DAILY 01/20/20 Acetaminophen [Tylenol 325 mg Tablet] 325 mg PO Q8HP PRN tablet 01/24/20 Levofloxacin [Levaquin 500 mg Tablet] 500 mg PO Q48H #2 tablet 01/24/20 Oxycodone HCl/Acetaminophen [Percocet 5-325 mg Tablet] 1 tab PO Q6H PRN #12 tab 01/24/20 History of Present Illiness History of Present Illness: Per H&P by Dr. Quinones: KRISTY CANTU is a 64 year old male past medical history of end-stage renal disease on hemodialysis Friday, hypertension, HIV, DVT on chronic anticoagulation, CAD, COPD, peripheral vascular disease status post right and left AKA, noncompliance presenting the ED complaining of shortness of breath, itching and chest pain. Patient presented to ED on 01/19/2020 noted to be hypertensive and hyperkalemic, left AMA, presented back to ED on 01/20/2020 complaining of nausea, vomiting, worsening shortness of breath, left-sided, nonradiating pressure-like chest pain 6/10 on severity scale, relieved by nitroglycerin, worse exertion, bilateral chronic stump pain, and anxiety. Denies any headache, visual changes, numbness, tingling, fever, chills, diarrhea or constipation. In ED noted to be very hyper tensive, with mildly elevated troponins and potassium of 8.1, Dr. Renteria nephrology was contacted who suggested for patient to be admitted and receive hemodialysis at 6 AM today. Hospital Course Hospital Course: (1) Hyperkalemia Resolved. History of end-stage renal disease on hemodialysis Friday. Missed his hemodialysis on Friday as he was here in ED and unfortunately left AMA. EKG negative for any acute changes. Patient was admitted to [facility] At admission, received Kayexalate, albuterol nebs, insulin, calcium carbonate. Received Veltassa x1. Nephrology has been consulted. Dialysis per nephrology's expertise. Have resumed home dose furosemide. Encouraged medication, dietary, and dialysis compliance. (2) ESRD needing dialysis On hemodialysis Friday. Missed hemodialysis last Friday. Hemodialysis received x 3 this admission. Continued dialysis per nephrology's expertise. (3) Elevated troponin R/t end stage renal disease on dialysis. Troponins flat; 0.113-> 0.103->0.106->0.116 Near baseline. ~0.08 No EKG changes. Repeat EKG unchanged. Patient was monitored on telemetry. Continue aspirin, coumadin, and statin therapy. Continue home antihypertensive regimen. Follow up with established overnight babysitter. (4) History of DVT (deep vein thrombosis) Anticoagulated with Coumadin. Resume Coumadin goal of INR 2-2.5. (5) HIV (human immunodeficiency virus infection) Resume home meds. Outpatient PCP follow-up. (6) Hypertensive emergency Improved Due to noncompliance. Presented with SBP of 200s. Have resumed home dose carvedilol, clonidine patches, p.o. hydralazine, Imdur, Procardia, and furosemide. Encouraged medication, dietary, and dialysis compliance. Cardiology and Nephrology outpatient follow up. (7) Noncompliance Advised on compliance. (8) Abdominal pain Nonspecific abd pain; chronic per patient. Abdominal/pelvic CT is benign. Urinalysis suggest UTI. Bentyl prn. Continue Protonix Avoid opiates. Start renally dosed Lovenox. Recommend outpatient GI follow up. (9) Dyspnea Resolved. Likely r/t pulmonary edema (volume overload in setting of dialysis noncompliance) and hypertensive emergency. Continue dialysis per nephrology. Continue home dose furosemide. Encourage pulmonary toilet. COVID negative (10) Chronic combined systolic and diastolic CHF (congestive heart failure) Echocardiogram reveals LVEF 25 to 30% proBNP 58k, increased from baseline of 22k Troponins flat at ~0.114 Continue dialysis. Encouraged patient to stop cocaine use Have resumed home dose carvedilol, clonidine patches, p.o. hydralazine, Imdur, Procardia, furosemide, aspirin and statin therapy. Discussed with Dr. Shah; recommends that patient have ischemic evaluation. Discussed with the patient, he is established with [facility]. He is encouraged to follow-up immediately upon discharge. (11) UTI Renally dosed Levaquin Physical Exam Vital Signs: Temp Pulse Resp BP Pulse Ox 98.1 F 91 16 185/87 H 96 01/24/20 14:08 01/24/20 14:08 01/24/20 14:08 01/24/20 14:08 01/24/20 14:08 General appearance: PRESENT: no acute distress, well-developed, well-nourished Head exam: PRESENT: atraumatic, normocephalic Eye exam: PRESENT: conjunctiva pink, EOMI, PERRLA. ABSENT: scleral icterus Mouth exam: PRESENT: moist, tongue midline Teeth exam: PRESENT: poor dentation Respiratory exam: PRESENT: clear to auscultation ramila, symmetrical, unlabored. ABSENT: rales, rhonchi, wheezes Cardiovascular exam: PRESENT: RRR. ABSENT: diastolic murmur, rubs, systolic murmur Vascular exam: PRESENT: normal capillary refill GI/Abdominal exam: PRESENT: normal bowel sounds, soft, tenderness. ABSENT: distended, guarding, mass, organolmegaly, rebound Rectal exam: PRESENT: deferred Extremities exam: PRESENT: full ROM, other - Left AKA, Right BKA. ABSENT: calf tenderness, clubbing, pedal edema Neurological exam: PRESENT: alert, awake, oriented to person, oriented to place, oriented to time, oriented to situation, CN II-XII grossly intact. ABSENT: rima r sensory deficit Psychiatric exam: PRESENT: appropriate affect, normal mood. ABSENT: homicidal ideation, suicidal ideation Skin exam: PRESENT: dry, intact, warm. ABSENT: cyanosis, rash Results Laboratory Results: WBC 13.9 10^3/uL (4.0-10.5) H 01/24/20 06:20 RBC 3.67 10^6/uL (4.35-5.55) L 01/24/20 06:20 Hgb 12.2 g/dL (13.5-17.0) L 01/24/20 06:20 Hct 35.3 % (37.9-51.0) L 01/24/20 06:20 MCV 96 fl (80-97) 01/24/20 06:20 MCH 33.2 pg (27.0-33.4) 01/24/20 06:20 MCHC 34.5 g/dL (32.0-36.0) 01/24/20 06:20 RDW 15.6 % (11.5-14.0) H 01/24/20 06:20 Plt Count 218 10^3/uL (150-450) 01/24/20 06:20 Lymph % (Auto) 19.8 % (13-45) 01/20/20 00:20 [place] % (Auto) 1.4 % (3-13) L 01/20/20 00:20 Eos % (Auto) 0.1 % (0-6) 01/20/20 00:20 Baso % (Auto) 2.2 % (0-2) H 01/20/20 00:20 Absolute Neuts (auto) 6.6 10^3/uL (1.7-8.2) 01/20/20 00:20 Absolute Lymphs (auto) 1.7 10^3/uL (0.5-4.7) 01/20/20 00:20 Absolute Monos (auto) 0.1 10^3/uL (0.1-1.4) 01/20/20 00:20 Absolute Eos (auto) 0.0 10^3/uL (0.0-0.6) 01/20/20 00:20 Absolute Basos (auto) 0.2 10^3/uL (0.0-0.2) 01/20/20 00:20 Seg Neutrophils % 76.5 % (42-78) 01/20/20 00:20 PT 26.9 SEC (11.4-15.4) H 01/24/20 06:20 INR 2.43 01/24/20 06:20 Sodium 131.9 mmol/L (137-145) L 01/24/20 06:20 Potassium 5.0 mmol/L (3.6-5.0) 01/24/20 06:20 Chloride 89 mmol/L (98-107) L 01/24/20 06:20 Carbon Dioxide 22 mmol/L (22-30) 01/24/20 06:20 Anion Gap 21 (5-19) H 01/24/20 06:20 BUN 80 mg/dL (7-20) H 01/24/20 06:20 Creatinine 12.52 mg/dL (0.52-1.25) H 01/24/20 06:20 Est GFR ( Amer) 5 (>60) L 01/24/20 06:20 Est GFR (Non-Af Amer) Cancelled 01/20/20 06:40 Est GFR (MDRD) Non-Af 4 (>60) L 01/24/20 06:20 Glucose 115 mg/dL (75-110) H 01/24/20 06:20 POC Glucose 116 mg/dL (70-110) H 01/21/20 08:45 Hemoglobin A1c % 5.5 % (4.7-6.0) 01/21/20 04:01 Calcium 9.0 mg/dL (8.4-10.2) 01/24/20 06:20 Total Bilirubin 0.4 mg/dL (0.2-1.3) 01/20/20 02:43 Direct Bilirubin 0.1 mg/dL (0.0-0.4) 01/20/20 02:43 Neonat Total Bilirubin Not Reportable 01/20/20 02:43 Neonat Direct Bilirubin Not Reportable 01/20/20 02:43 Neonat Indirect Bili Not Reportable 01/20/20 02:43 AST 23 U/L (17-59) 01/20/20 02:43 ALT 17 U/L (<50) 01/20/20 02:43 Alkaline Phosphatase 51 U/L (38-126) 01/20/20 02:43 Creatine Kinase 90 U/L (55-170) 01/22/20 01:17 CK-MB (CK-2) 2.50 ng/mL (<4.55) 01/22/20 01:17 Troponin I 0.114 ng/mL 01/22/20 01:17 NT-Pro-B Natriuret Pep 62875 pg/mL (<125) H 01/21/20 12:48 Total Protein 7.2 g/dL (6.3-8.2) 01/20/20 02:43 Albumin 4.0 g/dL (3.5-5.0) 01/20/20 02:43 EGFR Cancelled 01/20/20 06:40 Urine Color YELLOW 01/24/20 06:00 Urine Appearance CLOUDY 01/24/20 06:00 Urine pH 8.0 (5.0-9.0) 01/24/20 06:00 Ur Specific [place] 1.011 01/24/20 06:00 Urine Protein 100 mg/dL (NEGATIVE) H 01/24/20 06:00 Urine Glucose (UA) NEGATIVE mg/dL (NEGATIVE) 01/24/20 06:00 Urine Ketones NEGATIVE mg/dL (NEGATIVE) 01/24/20 06:00 Urine Blood SMALL (NEGATIVE) H 01/24/20 06:00 Urine Nitrite NEGATIVE (NEGATIVE) 01/24/20 06:00 Urine Bilirubin NEGATIVE (NEGATIVE) 01/24/20 06:00 Urine Urobilinogen NEGATIVE mg/dL (<2.0) 01/24/20 06:00 Ur Leukocyte Esterase LARGE (NEGATIVE) H 01/24/20 06:00 Urine WBC (Auto) 117 /HPF 01/24/20 06:00 Urine RBC (Auto) 7 /HPF 01/24/20 06:00 Urine Bacteria (Auto) 1+ /HPF 01/24/20 06:00 Urine Mucus (Auto) RARE /LPF 01/24/20 06:00 Urine Ascorbic Acid NEGATIVE (NEGATIVE) 01/24/20 06:00 SARS-CoV-2 (PCR) NEGATIVE (NEGATIVE) 01/21/20 12:30 01/20/20 01/20/20 01/20/20 00:20 02:43 06:40 CK-MB (CK-2) Troponin I 0.113 0.103 0.106 NT-Pro-B Natriuret Pep 01/20/20 01/21/20 01/21/20 14:42 04:01 12:48 CK-MB (CK-2) 5.24 H Troponin I 0.116 0.153 NT-Pro-B Natriuret Pep 79573 H 01/21/20 01/21/20 01/22/20 12:48 19:00 01:17 CK-MB (CK-2) 5.54 H 3.74 2.50 Troponin I 0.107 0.102 0.114 NT-Pro-B Natriuret Pep Impressions: Chest X-Ray 01/19/20 23:26 IMPRESSION: Mild progressive bibasilar atelectasis and interstitial prominence when compared to prior. No dense consolidation. Chest X-Ray 01/21/20 00:00 IMPRESSION: Minimal platelike atelectasis right lung base Lung Scan-VQ NM 01/21/20 00:00 IMPRESSION: Scattered small photopenic foci are seen bilaterally. This remains nonspecific and may represent underlying parenchymal disease. Subsegmental pulmonary emboli may have a similar appearance. Abdomen/Pelvis CT 01/22/20 00:00 IMPRESSION: NO ACUTE FINDINGS. Stroke Is this a Stroke Patient?: No Acute Heart Failure - Is this a Heart Failure Patient?: Yes Documentation of LVEF assessment?: Yes LVEF: LVEF Greater Than 40% Anticoagulant Therapy: Yes Discharged on Evidence-Based Beta Blockers: Yes Discharged on ARNI?: No-Document Contraindications Reason(s) not discharged on ARNI: Impaired/worsening renal functions Discharged on ARB?: No-document contraindications Reason(s) not Discharged on ARB: Impaired/worsening renal functions Discharged on ACEI?: N/A Discharged on ARNI Reason(s) not Discharged on ACEI: Impaied/worsening renal function For LVEF <35%, discharged on Aldosterone Antagonist?: Yes Reason(s) not discharged on Aldosterone Antagonist: Renal dysfunction (c reatinine >2.5 mg/dL in men or 2.0 mg/dL in women) Follow-up Appointment scheduled within 7 days?: Yes
[2020-01-28] MEDS ORDERED: CLONIDINE 0.3 MG/24 HR PATCH.TDWK TD SCH (10:00)
== END 2020-01-24 16:55 | disposition home or self-care (01) | DRG 640 ==
LOC: ER 23:02 → EH 01-20 03:59 → 5 01-20 05:04 → 3W 01-23 15:40
PROVIDERS: ADMIT Internal Medicine; ATTEND Registered Nurse
PROC: 5A1D70Z Performance of Urinary Filtration, Intermittent, Less than 6 Hours Per Day (ICD-10-PCS; principal; 2020-01-20)
DX: E87.5 Hyperkalemia (principal); N18.6 End stage renal disease; I21.4 Non-ST elevation (NSTEMI) myocardial infarction; I13.2 Hypertensive heart and chronic kidney disease with heart failure and with stage 5 chronic kidney disease, or end stage renal disease; I50.42 Chronic combined systolic (congestive) and diastolic (congestive) heart failure; I16.1 Hypertensive emergency; N39.0 Urinary tract infection, site not specified; Z68.41 Body mass index [BMI] 40.0-44.9, adult; D63.1 Anemia in chronic kidney disease; Z89.611 Acquired absence of right leg above knee; E11.22 Type 2 diabetes mellitus with diabetic chronic kidney disease; I25.10 Atherosclerotic heart disease of native coronary artery without angina pectoris; J44.9 Chronic obstructive pulmonary disease, unspecified; I73.9 Peripheral vascular disease, unspecified; E78.5 Hyperlipidemia, unspecified; K21.9 Gastro-esophageal reflux disease without esophagitis; M19.90 Unspecified osteoarthritis, unspecified site; F32.9 Major depressive disorder, single episode, unspecified; F17.200 Nicotine dependence, unspecified, uncomplicated; E66.01 Morbid (severe) obesity due to excess calories; R79.89 Other specified abnormal findings of blood chemistry; R06.00 Dyspnea, unspecified; R10.9 Unspecified abdominal pain; R10.84 Generalized abdominal pain; Z20.828 Contact with and (suspected) exposure to other viral communicable diseases; Z21 Asymptomatic human immunodeficiency virus [HIV] infection status; Z86.718 Personal history of other venous thrombosis and embolism; Z91.19 Patient's noncompliance with other medical treatment and regimen; Z79.01 Long term (current) use of anticoagulants; Z79.899 Other long term (current) drug therapy; Z99.2 Dependence on renal dialysis; Z91.15 Patient's noncompliance with renal dialysis; I25.2 Old myocardial infarction; Z86.711 Personal history of pulmonary embolism; Z88.8 Allergy status to other drugs, medicaments and biological substances; Z83.3 Family history of diabetes mellitus; Z83.42 Family history of familial hypercholesterolemia; Z82.49 Family history of ischemic heart disease and other diseases of the circulatory system
CPT/HCPCS: 36415; 71045; 74176; 78580; 80048; 80053; 81001; 82550; 82553; 82962; 83036; 83880; 84484; 85027; 85610; 87070; 87635; 93005; 93010; 93306; 94640; 94660; 96365; 96366; 96375; 96376; 99283; 99285; A9540; C9803; J0360; J0610; J1815; J1940; J2270; J2405; J2550; J3490; Q9969

== ENCOUNTER 2020-01-25 12:16 | Emergency (ER) | payer MEDICARE, MEDICAID ==
[2020-01-25 12:49] LABS: ABSOLUTE BASOPHILS # (AUTO) 0.1 10^3/uL (0.0-0.2); ABSOLUTE EOSINOPHILS # (AUTO) 0.1 10^3/uL (0.0-0.6); ABSOLUTE LYMPHOCYTES (AUTO) 2.3 10^3/uL (0.5-4.7); ABSOLUTE MONOCYTES (AUTO) 1.2 10^3/uL (0.1-1.4); ABSOLUTE NEUT (AUTO) 9.6 10^3/uL (1.7-8.2); BASOPHILS % (AUTO) 0.6 % (0-2); EOSINOPHILS % (AUTO) 0.7 % (0-6); HEMATOCRIT 36.8 % (37.9-51.0); HEMOGLOBIN 12.6 g/dL (13.5-17.0); LYMPHOCYTES % (AUTO) 17.5 % (13-45); MEAN CORPUSCULAR HEMOGLOBIN 33.4 pg (27.0-33.4); MEAN CORPUSCULAR HGB CONC 34.3 g/dL (32.0-36.0); MEAN CORPUSCULAR VOLUME 97 fl (80-97); MONOCYTES % (AUTO) 8.7 % (3-13); PLATELET COUNT 260 10^3/uL (150-450); RED BLOOD COUNT 3.77 10^6/uL (4.35-5.55); RED CELL DISTRIBUTION WIDTH 15.3 % (11.5-14.0); SEGMENTED NEUTROPHILS % (AUTO) 72.5 % (42-78); TOTAL CELLS COUNTED % (AUTO) 100 %; WHITE BLOOD COUNT 13.3 10^3/uL (4.0-10.5)
[2020-01-25 13:12] LABS: ALBUMIN 4.5 g/dL (3.5-5.0); ALKALINE PHOSPHATASE 81 U/L (38-126); ANION GAP 17 (5-19); ASPARTATE AMINO TRANSFERASE 22 U/L (17-59); BILIRUBIN,DIRECT 0.4 mg/dL (0.0-0.4); BILIRUBIN,TOTAL 0.6 mg/dL (0.2-1.3); BLOOD UREA NITROGEN 60 mg/dL (7-20); CALCIUM 9.5 mg/dL (8.4-10.2); CARBON DIOXIDE 25 mmol/L (22-30); CHLORIDE 92 mmol/L (98-107); GLUCOSE 137 mg/dL (75-110); POTASSIUM 5.7 mmol/L (3.6-5.0); TOTAL PROTEIN 8.1 g/dL (6.3-8.2)
[2020-01-25] MEDS ORDERED: DICYCLOMINE HCL INJ 20 MG/2 ML AMPULE IM ONE (14:21)
[2020-01-25] MEDS ORDERED: PROMETHAZINE HCL INJ 25 MG/1 ML VIAL IV ONE (14:21)
[2020-01-25] MEDS ORDERED: FUROSEMIDE 80 MG TABLET PO ONE (14:28)
[2020-01-25] MEDS ORDERED: HYDRALAZINE HCL 10 MG TABLET PO ONE (14:28)
--- NOTE | 2020-01-25 14:37 | ER Document Report ---
ED General - General Chief Complaint: Abdominal Pain Stated Complaint: abdominal pain Time Seen by Provider: 01/25/20 13:53 Primary Care Provider: LUIS CROW MD [Primary Care Provider] - Follow up as needed TRAVEL OUTSIDE OF THE [place] IN LAST 30 DAYS: No - HPI Notes: Patient is a 64-year-old patient, HIV positive, end-stage renal disease, on dialysis Friday, Friday, Friday, who presents to the emergency department for evaluation of abdominal pain. He was actually discharged from the hospital yesterday afternoon. He states he had dialysis prior to leaving. He went home. He ate a normal dinner. He states he woke up suddenly at 4 AM with terrible abdominal pain. It is diffuse. Sharp and stabbing. He had nausea and did have one episode of emesis. He states that he was "afraid" to take any of his medications this morning, so he did not. No fevers or chills. He had a bowel movement prior to leaving the hospital yesterday afternoon. He does still make urine. He cannot really describe the pain for me, other than to state "it just hurts." He states he was told he had gallbladder issues when he was hospitalized in [facility] in the past. He did not have any of this abdominal pain while he was in the hospital over the weekend. - Related Data Allergies/Adverse Reactions: calcitriol Allergy (Verified 01/19/20 02:53) itching Home Medications: calcium, carediolo, catapres, clonidine, eliquis, furosemide, hydralazine, isosorbie, lisinopril, lovenox, nitro, abacanir, epivir, p ravastatin, proair, protonix, qvar, ventolin, warfarin, levaquin started on Friday, January 23 Past Medical History - General Information source: Patient - Social History Smoking Status: Current Every Day Smoker Family History: Reviewed & Not Pertinent, CAD, CVA, DM, Hyperlipidemia, Hypertension, Malignancy Patient has homicidal ideation: No - Past Medical History Cardiac Medical History: Reports: Hx Congestive Heart Failure - EF is 25-30% in 01/2020, + diastolic dysfunction, Hx Coronary Artery Disease, Hx DVT, Hx Heart Attack, Hx Hypercholesterolemia, Hx Hypertension, Hx Peripheral Vascular Disease, Hx Pulmonary Embolism Denies: Hx Atrial Fibrillation Pulmonary Medical History: Reports: Hx Bronchitis, Hx COPD, Hx Pneumonia, Hx Respiratory Failure Denies: Hx Asthma, Hx Sleep Apnea Neurological Medical History: Denies: Hx Migraine, Hx Seizures Endocrine Medical History: Reports: Hx Diabetes Mellitus Type 2 - insulin depen dent. Denies: Hx Diabetes Mellitus Type 1, Hx Hyperthyroidism, Hx Hypothyroidism Renal/ Medical History: Reports: Hx End Stage Renal Disease - Dialysis MWF with Dr. Pablo Lowe, Hx Hemodialysis, Hx Renal Insufficiency. Denies: Hx Peritoneal Dialysis GI Medical History: Reports: Hx Gastroesophageal Reflux Disease. Denies: Hx Cirrhosis, Hx Crohn's Disease, Hx Hepatitis, Hx Ulcerative Colitis Musculoskeletal Medical History: Reports Hx Arthritis, Denies Hx Fibromyalgia, 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 bilat AKA, Reports Hx Musculoskeletal Trauma Skin Medical History: Denies Hx Eczema, Denies Hx Psoriasis Psychiatric Medical History: Reports: Hx Depression Traumatic Medical History: Denies: Hx Traumatic Brain Injury Infectious Medical History: Reports: Hx HIV - noncompliant with meds. Denies: Hx Hepatitis Past Surgical History: Reports: Hx Orthopedic Surgery - bilateral amputation, R BKA, L AKA, Hx Vascular Surgery - left arm clot removed, IVC filter, thrombec elvis 05/18/2018 left arm, Other - Tunnel graft right axillary femoral bypass, dialysis fistula LUE - Immunizations Immunizations up to date: Yes Hx Diphtheria, Pertussis, Tetanus Vaccination: Yes Hx Pneumococcal Vaccination: 07/21/10 Review of Systems - Review of Systems Constitutional: Chills Gastrointestinal: See HPI Musculoskeletal: Other - Chronic stump pain -: Yes All other systems reviewed and negative Physical Exam - Vital signs Vitals: Temp Resp BP Pulse Ox 97.5 F 30 H 183/90 H 99 01/25/20 12:27 01/25/20 12:27 01/25/20 12:27 01/25/20 12:27 - Notes Notes: This is a 64-year-old male who appears his stated age in a moderate amount of distress. He is distractible, but intermittently moans out in pain, rocks back and forth. His forehead is mildly diaphoretic. Head is normocephalic and appears atraumatic, pupils are equal round, active to light. Oral mucosa is moist. Uvula is midline. Heart is regular rate and rhythm, lungs are clear to auscultation bilaterally. Abdomen is mildly distended, diffusely tender with some voluntary guarding, no rebound. Negative heeltap. Normoactive bowel sounds. Patient with right BKA, left AKA, stump intact. Patient is awake and alert, cooperative with examiner. Course - Re-evaluation Re-evalutation: 01/25/20 14:40 Patient presents to the emergency department for evaluation. This is largely noncompliant patient with multiple medical issues who presents with diffuse abdominal pain. His white count is mildly high, he was diagnosed with a UTI prior to discharge. I do not see any urine cultures noted. He states he did take his Levaquin yesterday. I will can order a CT scan of his abdomen and pelvis. He is given Phenergan, Bentyl. He is mildly hyperkalemic, did not take his Lasix. He is given Lasix as well as his Apresoline today. He is currently stable, we will continue to monitor. 01/25/20 17:05 Patient's blood pressure is improved to the 180s over 80s. This is an excellent blood pressure for this noncompliant patient. His potassium was high, but he was given Lasix, he did urinate. He is due for dialysis tomorrow. Again his potassium is nearly almost always chronically high. He does have continued white blood cells in his urine, but he is already on Levaquin. He is only had one dose which was yesterday. A second dose will be after dialysis tomorrow. He is not febrile here. He continues to have a leukocytosis, which she had when he left the hospital. This is attributed at this time to UTI, cultures are pending. I did order a urine culture today. The patient CT scan reveals some constipation but otherwise no findings. After his nausea medication, the patient is resting comfortably, and he states his abdominal pain has entirely resolved. Serial abdominal exams are entirely benign. We talked at length about the need for compliance, he voiced understanding. I talked to him about his potassium being high today, likely from him missing his Lasix dose this morning, and the need for him to be on time for dialysis tomorrow. We talked about the need for him to continue his antibiotic. He voiced understanding to all this information. He will go home and take his antiretroviral therapy and other medications as prescribed. I will send him home with some Zofran. Constipation on his CT scan was revealed, he would like to try an enema at home. He is given a soapsuds enema here, as to avoid the patient going to the store and buying a fleets enema, which would not be appropriate given his renal disease. He is to return to the emergency department with worsening or new concerning symptoms of any sort. - Vital Signs Vital signs: Temp Pulse Resp BP Pulse Ox 97.5 F 18 194/103 H 100 01/25/20 12:27 01/25/20 16:01 01/25/20 16:01 01/25/20 16:01 - Laboratory Result Diagrams: 01/25/20 12:30 01/25/20 12:30 Laboratory results interpreted by me: 01/25/20 01/25/20 01/25/20 12:30 12:30 15:45 WBC 13.3 H RBC 3.77 L Hgb 12.6 L Hct 36.8 L RDW 15.3 H Absolute Neuts (auto) 9.6 H Sodium 134.0 L Potassium 5.7 H Chloride 92 L BUN 60 H Creatinine 10.51 H Est GFR ( Amer) 6 L Est GFR (MDRD) Non-Af 5 L Glucose 137 H Urine Protein 100 H Urine Blood MODERATE H Ur Leukocyte Esterase LARGE H - Diagnostic Test Radiology reviewed: Reports reviewed Radiology results interpreted by me: 01/25/20 17:07 Abdomen/Pelvis CT 01/25/20 14:22 IMPRESSION: Cannot exclude mild constipation. No other significant finding. Discharge - Discharge Clinical Impression: Hyperkalemia, Generalized abdominal pain, Noncompliance, Nausea Constipation Qualifiers: Constipation type: unspecified constipation type Qualified Code(s): K59.00 - Constipation, unspecified UTI (urinary tract infection) Qualifiers: Urinary tract infection type: site unspecified Hematuria presence: with hematuria Qualified Code(s): N39.0 - Urinary tract infection, site not specified; R31.9 - Hematuria, unspecified Condition: Stable Disposition: HOME, SELF-CARE Instructions: Abdominal Pain ([facility]), Urinary Tract Infection ([facility]), Constipation ([facility]) Additional Instructions: It is very important you go to dialysis as scheduled tomorrow. It is very important that you take your home medications as prescribed. Please continue your antibiotic tomorrow after dialysis as prescribed by the inpatient team. Try the enema at home for your constipation. If you develop increased pain, fevers, or any other new or concerning symptoms, please return immediately to the emergency department for evaluation. Referrals: LUIS CROW MD [Primary Care Provider] - Follow up as needed
--- NOTE | 2020-01-25 15:19 | RADIOLOGY REPORT (SQ) ---
EXAM DESCRIPTION: CT ABD/PELVIS NO ORAL OR IV IMAGES COMPLETED DATE/TIME: 01/25/2020 3:03 pm REASON FOR STUDY: diffuse abdominal pain COMPARISON: 01/22/2020 TECHNIQUE: CT scan of the abdomen and pelvis performed without intravenous or oral contrast. Images reviewed with lung, soft tissue, and bone windows. Reconstructed coronal and sagittal MPR images revi ewed. All images stored on PACS. All CT scanners at this facility use dose modulation, iterative reconstruction, and/or weight based d osing when appropriate to reduce radiation dose to as low as reasonably achievable (ALARA). [facility]: Dose Right [facility]: CareDose [facility]: Dose Right [facility]: Teradose 4D [facility]: [employer] RADIATION DOSE: mGy. LIMITATIONS: None. FINDINGS: LOWER CHEST: No significant findings. No nodules or infiltrates. NON-CONTRASTED LIVER, SPLEEN, ADRENALS: Evaluation limited by lack of IV contrast. No identified sign ificant masses. PANCREAS: No masses. No peripancreatic inflammatory changes. GALLBLADDER: No identified stones by CT criteria. No inflammatory changes to suggest cholecystitis. RIGHT KIDNEY AND URETER: No suspicious masses. Assessment limited by lack of IV contrast. No signif icant calcifications. No hydronephrosis or hydroureter. LEFT KIDNEY AND URETER: No suspicious masses. Assessment limited by lack of IV contrast. No signifi cant calcifications. No hydronephrosis or hydroureter. AORTA AND RETROPERITONEUM: No aneurysm. No retroperitoneal masses or adenopathy. BOWEL AND PERITONEAL CAVITY: Moderate retained stool. APPENDIX: Normal. PELVIS, BLADDER, AND ABDOMINAL WALL:No abnormal masses. No free fluid. Bladder normal. BONES: No significant findings. OTHER: No other significant finding. IMPRESSION: Cannot exclude mild constipation. No other significant finding. COMMENT: Quality ID # [id number]: Final reports with documentation of one or more dose reduction techniques (e.g., Automated exposure control, adjustment of the mA and/or kV according to patient size, use of iterative reconstruction technique) TECHNICAL DOCUMENTATION: JOB ID: [id number] 2010 [employer]- All Rights Reserved Reading location - IP/workstation name: [email or web address]
[2020-01-25 16:02] LABS: AMORPHOUS SEDIMENT,URINE TRACE /HPF; APPEARANCE,URINE CLOUDY; BILIRUBIN,URINE NEGATIVE (NEGATIVE); COLOR,URINE YELLOW; GLUCOSE, URINE NEGATIVE (NEGATIVE); KETONES,URINE NEGATIVE (NEGATIVE); LEUKOCYTE ESTERASE,URINE LARGE (NEGATIVE); NITRITE,URINE NEGATIVE (NEGATIVE); PROTEIN,URINE 100 mg/dL (NEGATIVE); UROBILINOGEN,URINE NEGATIVE mg/dL (<2.0)
[2020-01-25 17:08] VITALS: BP 182/86
--- NOTE | 2020-01-25 18:07 | EKG REPORT ---
SEVERITY:- ABNORMAL ECG - ECTOPIC ATRIAL TACHYCARDIA PROBABLE LEFT ATRIAL ABNORMALITY CONSIDER ANTERIOR INFARCT : Confirmed by: Marco Young MD 25-Jan-2020 18:07:02
== END 2020-01-25 17:25 | disposition home or self-care (01) ==
LOC: ER 12:16
DX: N39.0 Urinary tract infection, site not specified (principal); R31.9 Hematuria, unspecified; R10.84 Generalized abdominal pain; R11.0 Nausea; E87.5 Hyperkalemia; R10.9 Unspecified abdominal pain; K59.00 Constipation, unspecified; Z88.8 Allergy status to other drugs, medicaments and biological substances; I13.2 Hypertensive heart and chronic kidney disease with heart failure and with stage 5 chronic kidney disease, or end stage renal disease; E11.22 Type 2 diabetes mellitus with diabetic chronic kidney disease; N18.6 End stage renal disease; I50.9 Heart failure, unspecified; Z99.2 Dependence on renal dialysis; Z79.4 Long term (current) use of insulin; Z91.19 Patient's noncompliance with other medical treatment and regimen; Z79.01 Long term (current) use of anticoagulants; Z79.899 Other long term (current) drug therapy; F17.200 Nicotine dependence, unspecified, uncomplicated
CPT/HCPCS: 93005; 99284; 96372; 96374; 36415; 87086; 83605; 83690; 85025; 80053; 81001; 74176; 93010; J0500; A9270 ×2; J2550; J3490

== ENCOUNTER 2020-02-02 22:11 | Emergency (ER) | payer MEDICAID, MEDICARE ==
[2020-02-02 22:54] LABS: ABSOLUTE BASOPHILS # (AUTO) 0.1 10^3/uL (0.0-0.2); ABSOLUTE EOSINOPHILS # (AUTO) 0.3 10^3/uL (0.0-0.6); ABSOLUTE LYMPHOCYTES (AUTO) 2.7 10^3/uL (0.5-4.7); ABSOLUTE MONOCYTES (AUTO) 1.3 10^3/uL (0.1-1.4); ABSOLUTE NEUT (AUTO) 7.4 10^3/uL (1.7-8.2); BASOPHILS % (AUTO) 0.6 % (0-2); EOSINOPHILS % (AUTO) 2.4 % (0-6); HEMATOCRIT 34.5 % (37.9-51.0); HEMOGLOBIN 11.6 g/dL (13.5-17.0); LYMPHOCYTES % (AUTO) 23.1 % (13-45); MEAN CORPUSCULAR HEMOGLOBIN 32.8 pg (27.0-33.4); MEAN CORPUSCULAR HGB CONC 33.6 g/dL (32.0-36.0); MEAN CORPUSCULAR VOLUME 98 fl (80-97); MONOCYTES % (AUTO) 11.1 % (3-13); PLATELET COUNT 275 10^3/uL (150-450); RED BLOOD COUNT 3.53 10^6/uL (4.35-5.55); RED CELL DISTRIBUTION WIDTH 15.5 % (11.5-14.0); SEGMENTED NEUTROPHILS % (AUTO) 62.8 % (42-78); TOTAL CELLS COUNTED % (AUTO) 100 %; WHITE BLOOD COUNT 11.7 10^3/uL (4.0-10.5)
[2020-02-02 23:06] LABS: ALBUMIN 3.7 g/dL (3.5-5.0); ALKALINE PHOSPHATASE 49 U/L (38-126); ANION GAP 11 (5-19); ASPARTATE AMINO TRANSFERASE 18 U/L (17-59); BILIRUBIN,DIRECT 0.1 mg/dL (0.0-0.4); BILIRUBIN,TOTAL 0.3 mg/dL (0.2-1.3); BLOOD UREA NITROGEN 21 mg/dL (7-20); CALCIUM 8.9 mg/dL (8.4-10.2); CARBON DIOXIDE 26 mmol/L (22-30); CHLORIDE 97 mmol/L (98-107); CREATINE KINASE 65 U/L (55-170); GLUCOSE 96 mg/dL (75-110); POTASSIUM 4.9 mmol/L (3.6-5.0); TOTAL PROTEIN 6.7 g/dL (6.3-8.2)
--- NOTE | 2020-02-02 23:12 | RADIOLOGY REPORT (SQ) ---
EXAM DESCRIPTION: XR CHEST 1 VIEW COMPLETED DATE/TME: 02/02/2020 22:31 CLINICAL HISTORY: 64 years, Male, chest pain COMPARISON: Prior chest radiograph from 01/21/2020 NUMBER OF VIEWS: 2 TECHNIQUE: 2 frontal radiographs were obtained LIMITATIONS: None. FINDINGS: Cardiac and mediastinal contours are stable. Patchy right basilar opacity is noted. Lungs are otherwise clear. No pleural effusion or pneumothorax. Surgical clips project over the right apex. There is remote deformity involving the left clavicular midshaft. IMPRESSION: Patchy right basilar opacity. Consider atelectasis or pneumonia to include aspiration. Recommend follow-up to clearing. copyright 2010 [employer]- All Rights Reserved
[2020-02-02 23:17] LABS: CREATINE KINASE MB 1.56 ng/mL (<4.55)
[2020-02-02 23:20] LABS: TROPONIN I 0.085 ng/mL
--- NOTE | 2020-02-03 02:57 | ER Document Report ---
ED General - General Chief Complaint: Chest Pain Stated Complaint: CHEST PAIN Time Seen by Provider: 02/03/20 00:31 Mode of Arrival: Medic Information source: Patient Notes: 64-year-old male patient with end-stage renal disease and multiple cardiac issues presented to the emergency department chief complaint chest pain. He states the pain started yesterday and feels like cramping in the middle of his chest. He thinks it is related to his bronchitis. He states his primary care provider diagnosed him with this recently. He came in via EMS, EMS gave him 250 mL's of normal saline and 324 mg of aspirin. He reports the chest pain comes and goes. He reports he has history of hypertension, CHF, COPD and dialysis. He reports he had dialysis today and was there for nearly 4 hours. TRAVEL OUTSIDE OF THE [place] IN LAST 30 DAYS: No - Related Data Allergies/Adverse Reactions: calcitriol Allergy (Verified 02/02/20 22:32) itching Past Medical History - General Information source: Patient - Social History Smoking Status: Current Every Day Smoker Frequency of alcohol use: None Drug Abuse: None Family History: Reviewed & Not Pertinent, CAD, CVA, DM, Hyperlipidemia, Hypertension, Malignancy Patient has homicidal ideation: No - Past Medical History Cardiac Medical History: Reports: Hx Congestive Heart Failure - EF is 25-30% in 01/2020, + diastolic dysfunction, Hx Coronary Artery Disease, Hx DVT, Hx Heart Attack, Hx Hypercholesterolemia, Hx Hypertension, Hx Peripheral Vascular Disease, Hx Pulmonary Embolism Denies: Hx Atrial Fibrillation Pulmonary Medical History: Reports: Hx Bronchitis, Hx COPD, Hx Pneumonia, Hx Respiratory Failure Denies: Hx Asthma, Hx Sleep Apnea Neurological Medical History: Denies: Hx Migraine, Hx Seizures Endocrine Medical History: Reports: Hx Diabetes Mellitus Type 2 - insulin dependent. Denies: Hx Diabetes Mellitus Type 1, Hx Hyperthyroidism, Hx Hypothyroidism Renal/ Medical History: Reports: Hx End Stage Renal Disease - Dialysis MWF with Dr. Pablo Lowe, Hx Hemodialysis, Hx Renal Insufficiency. Denies: Hx Peritoneal Dialysis GI Medical History: Reports: Hx Gastroesophageal Reflux Disease. Denies: Hx Cirrhosis, Hx Crohn's Disease, Hx Hepatitis, Hx Ulcerative Colitis Musculoskeletal Medical History: Reports Hx Arthritis, Denies Hx Fibromyalgia, 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 bilat AKA, Reports Hx Musculoskeletal Trauma Skin Medical History: Denies Hx Eczema, Denies Hx Psoriasis Psychiatric Medical History: Reports: Hx Depression Traumatic Medical History: Denies: Hx Traumatic Brain Injury Infectious Medical History: Reports: Hx HIV - noncompliant with meds. Denies: Hx Hepatitis Past Surgical History: Reports: Hx Orthopedic Surgery - bilateral amputation, R BKA, L AKA, Hx Vascular Surgery - left arm clot removed, IVC filter, thrombectomy 05/18/2018 left arm, Other - Tunnel graft right axillary femoral bypass, dialysis fistula LUE - Immunizations Immunizations up to date: Yes Hx Diphtheria, Pertussis, Tetanus Vaccination: Yes Hx Pneumococcal Vaccination: 07/21/10 Review of Systems - Review of Systems Cardiovascular: Chest pain - cramping middle of chest -: Yes All other systems reviewed and negative Physical Exam - Vital signs Vitals: Temp Pulse Resp BP Pulse Ox 98.1 F 95 16 108/68 97 02/02/20 22:33 02/02/20 22:33 02/02/20 22:02/02/20 22:02/02/20 22:33 - Notes Notes: PHYSICAL EXAMINATION: GENERAL: Well-appearing, well-nourished and in no acute distress. HEAD: Atraumatic, normocephalic. EYES: Pupils equal round and reactive to light, extraocular movements intact, sclera anicteric, conjunctiva are normal. ENT: Nares patent, oropharynx clear without exudates. Moist mucous membranes. NECK: Normal range of motion, supple without lymphadenopathy LUNGS: Breath sounds clear to auscultation bilaterally and equal. No wheezes rales or rhonchi. HEART: Regular rate and rhythm without murmurs ABDOMEN: Soft, nontender, nondistended abdomen. No guarding, no rebound. No masses appreciated. Musculoskeletal: Bilateral lower extremity amputations. NEUROLOGICAL: Cranial nerves grossly intact. Normal speech. Normal sensory, motor exams PSYCH: Normal mood, normal affect. SKIN: Fistula left forearm. Course - Vital Signs Vital signs: Temp Pulse Resp BP Pulse Ox 98.1 F 95 16 108/68 97 02/02/20 22:33 02/02/20 22:33 02/02/20 22:33 02/02/20 22:33 02/02/20 22:45 Laboratory 02/02/20 02/02/20 02/02/20 22:29 22: 22:29 WBC 11.7 H RBC 3.53 L Hgb 11.6 L Hct 34.5 L MCV 98 H MCH 32.8 MCHC 33.6 RDW 15.5 H Plt Count 275 Lymph % (Auto) 23.1 [place] % (Auto) 11.1 Eos % (Auto) 2.4 Baso % (Auto) 0.6 Absolute Neuts (auto) 7.4 Absolute Lymphs (auto) 2.7 Absolute Monos (auto) 1.3 Absolute Eos (auto) 0.3 Absolute Basos (auto) 0.1 Seg Neutrophils % 62.8 Sodium 133.6 L Potassium 4.9 Chloride 97 L Carbon Dioxide 26 Anion Gap 11 BUN 21 H Creatinine 4.96 H Est GFR ( Amer) 14 L Est GFR (MDRD) Non-Af 12 L Glucose 96 Calcium 8.9 Total Bilirubin 0.3 Direct Bilirubin 0.1 Neonat Total Bilirubin Not Reportable Neonat Direct Bilirubin Not Reportable Neonat Indirect Bili Not Reportable AST 18 ALT 12 Alkaline Phosphatase 49 Creatine Kinase 65 CK-MB (CK-2) 1.56 Troponin I 0.085 Total Protein 6.7 Albumin 3.7 02/03/20 01:43 WBC RBC Hgb Hct MCV MCH MCHC RDW Plt Count Lymph % (Auto) [place] % (Auto) Eos % (Auto) Baso % (Auto) Absolute Neuts (auto) Absolute Lymphs (auto) Absolute Monos (auto) Absolute Eos (auto) Absolute Basos (auto) Seg Neutrophils % Sodium Potassium Chloride Carbon Dioxide Anion Gap BUN Creatinine Est GFR ( Amer) Est GFR (MDRD) Non-Af Glucose Calcium Total Bilirubin Direct Bilirubin Neonat Total Bilirubin Neonat Direct Bilirubin Neonat Indirect Bili AST ALT Alkaline Phosphatase Creatine Kinase CK-MB (CK-2) Troponin I 0.083 Total Protein Albumin Chest X-Ray 02/02/20 22:31 IMPRESSION: Patchy right basilar opacity. Consider atelectasis or pneumonia to include aspiration. Recommend follow-up to clearing. copyright 2010 [employer]- All Rights Reserved Patient appears well, nontoxic. Chest x-ray is unknown changed from previous. EKG reviewed, see interpretation. Patient has now had 2- troponins. He is chest pain-free. He states he feels comfortable going home. He has had a recent echocardiogram. 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 - Laboratory Result Diagrams: 02/02/20 22:29 02/02/20 22:29 Laboratory results interpreted by me: 02/02/20 02/02/20 22:29 22:29 WBC 11.7 H RBC 3.53 L Hgb 11.6 L Hct 34.5 L MCV 98 H RDW 15.5 H Sodium 133.6 L Chloride 97 L BUN 21 H Creatinine 4.96 H Est GFR ( Amer) 14 L Est GFR (MDRD) Non-Af 12 L - EKG Interpretation by Me EKG shows normal: Sinus rhythm Rate: Normal Rhythm: NSR [place]/QRS: Left axis deviation Additional EKG results interpreted by me: EKG was reviewed by attending physician, Dr. Tello. Repeat EKG was reviewed by Dr. Joseph. Discharge - Discharge Clinical Impression: Chest pain Qualifiers: Chest pain type: unspecified Qualified Code(s): R07.9 - Chest pain, unspecified Condition: Stable Disposition: HOME, SELF-CARE Instructions: Chest Pain of Unclear Cause ([facility]) Additional Instructions: You were seen in the emergency department today for chest pain. Your work-up today was reassuring. Please follow-up with your primary care provider. Return to the emergency department for any new or worsening symptoms.
[2020-02-03 03:44] VITALS: BP 118/83
--- NOTE | 2020-02-03 13:20 | EKG REPORT ---
SEVERITY:- ABNORMAL ECG - SINUS RHYTHM LEFT ANTERIOR FASCICULAR BLOCK LEFT VENTRICULAR HYPERTROPHY BORDERLINE ST ELEVATION, ANTEROLATERAL LEADS BORDERLINE PROLONGED QT INTERVAL : Confirmed by: Theron Shah MD 03-Feb-2020 13:20:22
--- NOTE | 2020-02-03 13:20 | EKG REPORT ---
SEVERITY:- ABNORMAL ECG - SINUS RHYTHM LEFT ANTERIOR FASCICULAR BLOCK LEFT VENTRICULAR HYPERTROPHY BORDERLINE PROLONGED QT INTERVAL : Confirmed by: Theron Shah MD 03-Feb-2020 13:20:28
== END 2020-02-03 03:42 | disposition home or self-care (01) ==
LOC: ER 22:11
DX: R07.9 Chest pain, unspecified (principal); R25.2 Cramp and spasm; I13.2 Hypertensive heart and chronic kidney disease with heart failure and with stage 5 chronic kidney disease, or end stage renal disease; E11.22 Type 2 diabetes mellitus with diabetic chronic kidney disease; N18.6 End stage renal disease; I50.30 Unspecified diastolic (congestive) heart failure; Z99.2 Dependence on renal dialysis; I25.10 Atherosclerotic heart disease of native coronary artery without angina pectoris; I25.2 Old myocardial infarction; E11.51 Type 2 diabetes mellitus with diabetic peripheral angiopathy without gangrene; Z86.711 Personal history of pulmonary embolism; J44.9 Chronic obstructive pulmonary disease, unspecified; F17.200 Nicotine dependence, unspecified, uncomplicated; Z21 Asymptomatic human immunodeficiency virus [HIV] infection status; Z88.8 Allergy status to other drugs, medicaments and biological substances; Z82.49 Family history of ischemic heart disease and other diseases of the circulatory system
CPT/HCPCS: 36415; 71045; 80053; 82550; 82553; 84484; 85025; 93005; 93010; 99285

== ENCOUNTER 2020-02-25 20:37 | Emergency (ER) | payer MEDICARE, MEDICAID ==
--- NOTE | 2020-02-25 20:59 | ER Document Report ---
ED Medical Screen (RME) - General TRAVEL OUTSIDE OF THE [place] IN LAST 30 DAYS: No <KIZZYMARILEE CASTILLO - Last Filed: 02/25/20 20:55> - General Mode of Arrival: Medic Information source: Patient, Emergency Med Personnel <TRISTON GOMEZ JR - Last Filed: 02/26/20 01:06> - General Chief Complaint: Chest Pain Stated Complaint: CHEST PAIN Time Seen by Provider: 02/25/20 20:47 Primary Care Provider: LUIS CROW MD [Primary Care Provider] - Follow up as needed Notes: KIZZY notes Chief Complaint: Chest Pain Stated Complaint: CHEST PAIN Time Seen by Provider: 02/25/20 20:47 Primary Care Provider: LUIS CROW MD [Primary Care Provider] - Follow up as needed TRAVEL OUTSIDE OF THE [place] IN LAST 30 DAYS: No - HPI Notes: 02/25/20 20:56 64-year-old male with a history of end-stage renal disease, CHF, COPD, history of multiple blood clots, [place] last year who is on dialysis presents to the [facility] room for midsternal chest pain with that started approximately an hour ago. Patient reports that he had sudden onset chest pain at rest, felt diaphoretic with nausea. Called EMS where they gave him 2 sublingual nitroglycerin which did ease his chest pain from a 5 out of 5 to only when he coughs now. 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 Could not find his nitros when he called EMS. Was also given 324 baby aspirin. Patient is not on any anticoagulation. He does go to dialysis on Wednesdays and Fridays, he did go today. Has any fevers or chills. I have greeted and performed a rapid initial assessment of this patient. A comprehensive ED assessment and evaluation of the patient, analysis of test results and completion of the medical decision making process will be conducted by additional ED providers. PHYSICAL EXAMINATION: GENERAL: Well-appearing, well-nourished and in mild distress. CV: s1, s2 regular LUNGS: slight wheezing in upper lobes my notes 64-year-old black male arrives by EMS with chief complaint of acute on chronic chest pain. Patient has a history of CHF COPD and ESRD on Friday dialysis. Patient is complaining of substernal chest pain with radiation to the left chest. This occurred while shortly after dialysis today. Chest pain is a 8 out of 10 especially on movement and cough. Patient reports she has been coughing up some phlegm but denies any coronavirus himself or coronavirus exposure. Patient denies any hemoptysis or trauma or abuse. He denies any rhinorrhea or sore throat or nuchal rigidity or cephalgia. He denies any rhinorrhea and denies any dental problems. He did give himself a breathing treatment just prior to calling EMS. (TRISTON GOMEZ JR) - HPI Notes: 02/25/20 20:56 64-year-old male with a history of end-stage renal disease, CHF, COPD, history of multiple blood clots, [place] last year who is on dialysis presents to the emergency room for midsternal chest pain with that started approximately an hour ago. Patient reports that he had sudden onset chest pain at rest, felt diaphoretic with nausea. Called EMS where they gave him 2 sublingual nitroglycerin which did ease his chest pain from a 5 out of 5 to only when he coughs now. 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 Could not find his nitros when he called EMS. Was also given 324 baby aspirin. Patient is not on any anticoagulation. He does go to dialysis on Wednesdays and Fridays, he did go today. Has any fevers or chills. I have greeted and performed a rapid initial assessment of this patient. A comprehensive ED assessment and evaluation of the patient, analysis of test results and completion of the medical decision making process will be conducted by additional ED providers. PHYSICAL EXAMINATION: GENERAL: Well-appearing, well-nourished and in mild distress. CV: s1, s2 regular LUNGS: slight wheezing in upper lobes (MARILEE DURAND) - Related Data Allergies/Adverse Reactions: calcitriol Allergy (Verified 02/02/20 22:32) itching Past Medical History - Social History Family history: Reviewed & Not Pertinent - Past Medical History Cardiac Medical History: Reports: Hx Congestive Heart Failure - EF is 25-30% in 01/2020, + diastolic dysfunction, Hx Coronary Artery Disease, Hx DVT, Hx Heart Attack, Hx Hypercholesterolemia, Hx Hypertension, Hx Peripheral Vascular Disease, Hx Pulmonary Embolism Denies: Hx Atrial Fibrillation Pulmonary Medical History: Reports: Hx Bronchitis, Hx COPD, Hx Pneumonia, Hx Respiratory Failure Denies: Hx Asthma, Hx Sleep Apnea Neurological Medical History: Denies: Hx Migraine, Hx Seizures Endocrine Medical History: Reports: Hx Diabetes Mellitus Type 2 - insulin dependent. Denies: Hx Diabetes Mellitus Type 1, Hx Hyperthyroidism, Hx Hypothyroidism Renal/ Medical History: Reports: Hx End Stage Renal Disease - Dialysis MWF with Dr. Pablo Lowe, Hx Hemodialysis, Hx Renal Insufficiency. Denies: Hx Peritoneal Dialysis GI Medical History: Reports: Hx Gastroesophageal Reflux Disease. Denies: Hx Cirrhosis, Hx Crohn's Disease, Hx Hepatitis, Hx Ulcerative Colitis Musculoskeltal Medical History: Reports Hx Arthritis, Denies Hx Fibromyalgia, 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 bilat AKA, Reports Hx Musculoskeletal Trauma Skin Medical History: Denies Hx Eczema, Denies Hx Psoriasis Psychiatric Medical History: Reports: Hx Depression Traumatic Medical History: Denies: Hx Traumatic Brain Injury Infectious Medical History: Reports: Hx HIV - noncompliant with meds. Denies: Hx Hepatitis Past Surgical History: Reports: Hx Orthopedic Surgery - bilateral amputation, R BKA, L AKA, Hx Vascular Surgery - left arm clot removed, IVC filter, thrombectomy 05/18/2018 left arm, Other - Tunnel graft right axillary femoral bypass, dialysis fistula LUE - Immunizations Immunizations up to date: Yes Hx Diphtheria, Pertussis, Tetanus Vaccination: Yes <MARILEE DURAND - Last Filed: 02/25/20 20:55> Physical Exam - Vital signs Vitals: Temp Resp BP Pulse Ox 97.9 F 16 171/90 H 95 02/25/20 21:13 02/25/20 21:13 02/25/20 21:13 02/25/20 21:13 Course - Laboratory Result Diagrams: 02/25/20 22:10 02/25/20 22:10 <PATRICIATRISTON Allen LEON - Last Filed: 02/26/20 01:06> - Vital Signs Vital signs: Temp Pulse Resp BP Pulse Ox 97.9 F 16 171/90 H 95 02/25/20 21:13 02/25/20 21:13 02/25/20 21:13 02/25/20 21:13 - Laboratory Laboratory results interpreted by me: 02/25/20 02/25/20 22:10 22:10 RBC 3.48 L Hgb 11.8 L Hct 34.7 L MCV 100 H MCH 34.0 H RDW 16.8 H Sodium 136.9 L Potassium 5.5 H Chloride 96 L BUN 24 H Creatinine 4.79 H Est GFR ( Amer) 15 L Est GFR (MDRD) Non-Af 12 L Creatine Kinase 219 H Doctor's Discharge <MARILEE DURAND - Last Filed: 02/25/20 20:55> <TRISTON GOMEZ JR - Last Filed: 02/26/20 01:06> - Discharge Referrals: LUIS CROW MD [Primary Care Provider] - Follow up as needed
--- NOTE | 2020-02-25 21:51 | RADIOLOGY REPORT (SQ) ---
EXAM DESCRIPTION: XR CHEST 2 VIEWS COMPLETED DATE/TME: 02/25/2020 20:54 CLINICAL HISTORY: 64 years, Male, chest pain COMPARISON: February 02, 2020 NUMBER OF VIEWS: 2 TECHNIQUE: PA and lateral views the chest were obtained LIMITATIONS: Lungs are relatively overexposed FINDINGS: Heart size is within normal limits. Lungs appear emphysematous. There is mild basilar atelectasis and/or scarring. There is a small focal opacity lateral left lower chest measuring approximately 1 cm at the bisection of the posterior ninth and anterior fifth ribs, likely due to overlapping shadows, however attention on follow-up is recommended to exclude true nodularity. There is no evidence of pleural effusion or pneumothorax. IMPRESSION: No acute abnormality is seen. Small nodular opacity left lower chest is likely artifactual, however attention on follow-up chest x-ray is recommended to exclude a true lung nodule. copyright 2010 [employer]- All Rights Reserved
[2020-02-25 22:26] LABS: ABSOLUTE BASOPHILS # (AUTO) 0.1 10^3/uL (0.0-0.2); ABSOLUTE EOSINOPHILS # (AUTO) 0.4 10^3/uL (0.0-0.6); ABSOLUTE MONOCYTES (AUTO) 0.8 10^3/uL (0.1-1.4); ABSOLUTE NEUT (AUTO) 4.3 10^3/uL (1.7-8.2); EOSINOPHILS % (AUTO) 5.1 % (0-6); HEMATOCRIT 34.7 % (37.9-51.0); HEMOGLOBIN 11.8 g/dL (13.5-17.0); LYMPHOCYTES % (AUTO) 26.3 % (13-45); MEAN CORPUSCULAR HGB CONC 34.1 g/dL (32.0-36.0); MEAN CORPUSCULAR VOLUME 100 fl (80-97); MONOCYTES % (AUTO) 10.8 % (3-13); PLATELET COUNT 234 10^3/uL (150-450); RED BLOOD COUNT 3.48 10^6/uL (4.35-5.55); RED CELL DISTRIBUTION WIDTH 16.8 % (11.5-14.0); SEGMENTED NEUTROPHILS % (AUTO) 56.8 % (42-78); TOTAL CELLS COUNTED % (AUTO) 100 %; WHITE BLOOD COUNT 7.6 10^3/uL (4.0-10.5)
[2020-02-25 22:47] LABS: ALBUMIN 4.3 g/dL (3.5-5.0); ALKALINE PHOSPHATASE 70 U/L (38-126); ANION GAP 11 (5-19); ASPARTATE AMINO TRANSFERASE 25 U/L (17-59); BILIRUBIN,DIRECT 0.1 mg/dL (0.0-0.4); BILIRUBIN,TOTAL 0.3 mg/dL (0.2-1.3); BLOOD UREA NITROGEN 24 mg/dL (7-20); CARBON DIOXIDE 30 mmol/L (22-30); CHLORIDE 96 mmol/L (98-107); CREATINE KINASE 219 U/L (55-170); GLUCOSE 101 mg/dL (75-110); POTASSIUM 5.5 mmol/L (3.6-5.0); TOTAL PROTEIN 7.8 g/dL (6.3-8.2)
[2020-02-25 22:59] LABS: CREATINE KINASE MB 2.73 ng/mL (<4.55)
[2020-02-25 23:06] LABS: TROPONIN I 0.11 ng/mL
--- NOTE | 2020-02-26 00:21 | EKG REPORT ---
SEVERITY:- ABNORMAL ECG - SINUS TACHYCARDIA LEFT ANTERIOR FASCICULAR BLOCK LEFT VENTRICULAR HYPERTROPHY BORDERLINE PROLONGED QT INTERVAL : Confirmed by: Marco Young MD 26-Feb-2020 00:21:11
[2020-02-26] MEDS ORDERED: MORPHINE SULFATE 10 MG/ML INJ IV ONE (00:59)
[2020-02-26] MEDS ORDERED: ONDANSETRON HCL INJ/PF 4 MG/2 ML SDV IV ONE (00:59)
[2020-02-26] MEDS ORDERED: IPRATROPIUM/ALBUTEROL 0.5-2.5 MG/3 ML AMPUL NEB ONE (01:00)
--- NOTE | 2020-02-26 01:14 | ER Document Report ---
ED Respiratory Problem - General Chief Complaint: Chest Tightness Stated Complaint: CHEST PAIN Time Seen by Provider: 02/25/20 20:47 Primary Care Provider: LUIS CROW MD [Primary Care Provider] - Follow up as needed Mode of Arrival: Medic Information source: Patient Notes: General Chief Complaint: Chest Pain Stated Complaint: CHEST PAIN Time Seen by Provider: 02/25/20 20:47 Primary Care Provider: LUIS CROW MD [Primary Care Provider] - Follow up as needed Notes: KIZZY notes Chief Complaint: Chest Pain Stated Complaint: CHEST PAIN Time Seen by Provider: 02/25/20 20:47 Primary Care Provider: LUIS CORW MD [Primary Care Provider] - Follow up as needed TRAVEL OUTSIDE OF THE [place] IN LAST 30 DAYS: No - HPI Notes: 02/25/20 20:56 64-year-old male with a history of end-stage renal disease, CHF, COPD, history of multiple blood clots, [place] last year who is on dialysis presents to the emergency room for midsternal chest pain with that started approximately an hour ago. Patient reports that he had sudden onset chest pain at rest, felt diap horetic with nausea. Called EMS where they gave him 2 sublingual nitroglycerin which did ease his chest pain from a 5 out of 5 to only when he coughs now. 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 Could not find his nitros when he called EMS. Was also given 324 baby aspirin. Patient is not on any anticoagulation. He does go to dialysis on Wednesdays and Fridays, he did go today. Has any fevers or chills. I have greeted and performed a rapid initial assessment of this patient. A comprehensive ED assessment and evaluation of the patient, analysis of test results and completion of the medical decision making process will be conducted by additional ED providers. PHYSICAL EXAMINATION: GENERAL: Well-appearing, well-nourished and in mild distress. CV: s1, s2 regular LUNGS: slight wheezing in upper lobes my notes 64-year-old black male arrives by EMS with chief complaint of acute on chronic chest pain. Patient has a history of CHF COPD and ESRD on Friday dialysis. Patient is complaining of substernal chest pain with radiation to the left chest. This occurred while shortly after dialysis today. Chest pain is a 8 out of 10 especially on movement and cough. Patient reports he has been coughing up some phlegm but denies any coronavirus himself or coronavirus exposure. Patient denies any hemoptysis or trauma or abuse. He denies any rhinorrhea or sore throat or nuchal rigidity or cephalgia. He denies any rhinorrhea and denies any dental problems. He did give himself a breathing treatment just prior to calling EMS. (TRISTON GOMEZ JR) patient is well- known to the ER and tested negative for patricia virus on 20 February. Evaluation of prior troponins reveal consistently high troponins probably because of his ESRD TRAVEL OUTSIDE OF THE [place] IN LAST 30 DAYS: No - HPI Patient complains to provider of: Chest pain, COPD, Cough Onset: This afternoon Quality of pain: Achy Severity: Moderate Pain Level: 2 Short of Breath: Mild - Related Data Allergies/Adverse Reactions: calcitriol Allergy (Verified 02/02/20 22:32) itching Home Medications: pt cant tell Past Medical History - General Information source: Patient, Emergency Med Personnel - Social History Smoking Status: Current Every Day Smoker - Started smoking when he was 14 years old 1 pack/day Cigarette use (# per day): Yes Chew tobacco use (# tins/day): No Smoking Education Provided: Yes Frequency of alcohol use: None Drug Abuse: None Lives with: Family Family History: Reviewed & Not Pertinent, CAD, CVA, DM, Hyperlipidemia, Hypertension, Malignancy Patient has suicidal ideation: No Patient has homicidal ideation: No - Past Medical History Cardiac Medical History: Reports: Hx Congestive Heart Failure - EF is 25-30% in 01/2020, + diastolic dysfunction, Hx Coronary Artery Disease, Hx DVT, Hx Heart Attack, Hx Hypercholesterolemia, Hx Hypertension, Hx Peripheral Vascular Disease, Hx Pulmonary Embolism Denies: Hx Atrial Fibrillation Pulmonary Medical History: Reports: Hx Bronchitis, Hx COPD, Hx Pneumonia, Hx Respiratory Failure Denies: Hx Asthma, Hx Sleep Apnea Neurological Medical History: Denies: Hx Migraine, Hx Seizures Endocrine Medical History: Reports: Hx Diabetes Mellitus Type 2 - insulin dependent. Denies: Hx Diabetes Mellitus Type 1, Hx Hyperthyroidism, Hx Hypothyroidism Renal/ Medical History: Reports: Hx End Stage Renal Disease - Dialysis MWF with Dr. Pablo Lowe, Hx Hemodialysis, Hx Renal Insufficiency. Denies: Hx Peritoneal Dialysis GI Medical History: Reports: Hx Gastroesophageal Reflux Disease. Denies: Hx Cirrhosis, Hx Crohn's Disease, Hx Hepatitis, Hx Ulcerative Colitis Musculoskeletal Medical History: Reports Hx Arthritis, Denies Hx Fibromyalgia, 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 bilat AKA, Reports Hx Musculoskeletal Trauma Skin Medical History: Denies Hx Eczema, Denies Hx Psoriasis Psychiatric Medical History: Reports: Hx Depression Traumatic Medical History: Denies: Hx Traumatic Brain Injury Infectious Medical History: Reports: Hx HIV - noncompliant with meds. Denies: Hx Hepatitis Past Surgical History: Reports: Hx Orthopedic Surgery - bilateral amputation, R BKA, L AKA, Hx Vascular Surgery - left arm clot removed, IVC filter, thrombectomy 05/18/2018 left arm, Other - Tunnel graft right axillary femoral bypass, dialysis fistula LUE - Immunizations Immunizations up to date: Yes Hx Diphtheria, Pertussis, Tetanus Vaccination: Yes Hx Pneumococcal Vaccination: 07/21/10 Review of Systems - Review of Systems Constitutional: See HPI, Other - esrd dialysis EENT: No symptoms reported Cardiovascular: See HPI, Chest pain Respiratory: See HPI, Cough, Wheezing Gastrointestinal: No symptoms reported Genitourinary: No symptoms reported Male Genitourinary: No symptoms reported Musculoskeletal: No symptoms reported Skin: No symptoms reported Hematologic/Lymphatic: No symptoms reported Neurological/Psychological: No symptoms reported Physical Exam - Vital signs Vitals: Temp Resp BP Pulse Ox 97.9 F 16 171/90 H 95 02/25/20 21:13 02/25/20 21:13 02/25/20 21:13 02/25/20 21:13 Interpretation: Hypertensive - HEENT Head: Normocephalic Eyes: Normal Extraocular movements intact: Yes Pupils: PERRL Sinus: Normal Nasal: Normal Mouth/Lips: Normal Mucous membranes: Normal Pharynx: Normal Neck: Normal - Respiratory Respiratory status: No respiratory distress Chest status: Nontender Breath sounds: Wheezing Chest palpation: Normal - Cardiovascular Rhythm: Regular Heart sounds: Normal auscultation Murmur: No - Abdominal Inspection: Normal - Rectal Prostate: Other - deferred - Genitourinary Scrotum: Other - deferred - Back Back: Normal - Extremities General upper extremity: Normal inspection General lower extremity: Other - ramila aka - Neurological Neuro grossly intact: Yes Cognition: Normal Orientation: AAOx4 Star Coma Scale Eye Opening: Spontaneous [place] Coma Scale Verbal: Oriented Star Coma Scale Motor: Obeys Commands Star Coma Scale Total: 15 Speech: Normal Motor strength normal: LUE, RUE, LLE, RLE Sensory: Normal - Psychological Associated symptoms: Normal mood - Skin Skin Temperature: Warm Skin Moisture: Dry Course - Vital Signs Vital signs: Temp Pulse Resp BP Pulse Ox 97.9 F 16 171/90 H 95 02/25/20 21:13 02/25/20 21:13 02/25/20 21:13 02/25/20 21:13 - Laboratory Result Diagrams: 02/25/20 22:10 02/25/20 22:10 Laboratory results interpreted by me: 02/25/20 02/25/20 22:10 22:10 RBC 3.48 L Hgb 11.8 L Hct 34.7 L MCV 100 H MCH 34.0 H RDW 16.8 H Sodium 136.9 L Potassium 5.5 H Chloride 96 L BUN 24 H Creatinine 4.79 H Est GFR ( Amer) 15 L Est GFR (MDRD) Non-Af 12 L Creatine Kinase 219 H - Diagnostic Test Radiology reviewed: Reports reviewed - EKG Interpretation by Me EKG shows normal: Sinus rhythm Rate: Tachycardia - 108 hr Rhythm: NSR - No ST elevation no ST depression no T wave elevation no T wave depression axis within normal limits with a heart rate of 108 bpm Critical Care Note - Critical Care Note Comments: Patient much improved after breathing treatment morphine and order for Imdur. Discharge - Discharge Clinical Impression: Chronic kidney disease with end stage renal failure on dialysis, Angina at rest, Hyperkalemia, chronic elevated troponin RAD (reactive airway disease) with wheezing Qualifiers: Asthma severity: mild Asthma persistence: intermittent Asthma complication type: uncomplicated Qualified Code(s): J45.20 - Mild intermittent asthma, uncomplicated Condition: Good Disposition: HOME, SELF-CARE Additional Instructions: Follow-up with personal doctor and Dr. Huggins on Friday return to ER as needed take medicines as directed encourage fluids Prescriptions: Isosorbide Mononitrate [Imdur 30 mg Tablet.er] 30 mg PO DAILY #10 tab Referrals: LUIS CROW MD [Primary Care Provider] - Follow up as needed
[2020-02-26] MEDS ORDERED: SODIUM POLYSTYRENE SULFONATE 15 GM/60 ML PO ONE (01:31)
[2020-02-26] MEDS ORDERED: ISOSORBIDE MONONITRATE 30 MG TAB.ER.24H PO ONE (01:50)
[2020-02-26] MEDS ORDERED: HYDROCODONE/ACETAMINOPHEN 5-325 MG (6 TAB/ER DISP) PO PRN (02:15)
[2020-02-26 02:33] VITALS: BP 178/107
== END 2020-02-26 02:33 | disposition home or self-care (01) ==
LOC: ER 20:37
DX: I25.119 Atherosclerotic heart disease of native coronary artery with unspecified angina pectoris (principal); I13.2 Hypertensive heart and chronic kidney disease with heart failure and with stage 5 chronic kidney disease, or end stage renal disease; E11.22 Type 2 diabetes mellitus with diabetic chronic kidney disease; N18.6 End stage renal disease; I50.30 Unspecified diastolic (congestive) heart failure; Z99.2 Dependence on renal dialysis; E87.5 Hyperkalemia; J45.20 Mild intermittent asthma, uncomplicated; J44.9 Chronic obstructive pulmonary disease, unspecified; R79.89 Other specified abnormal findings of blood chemistry; R61 Generalized hyperhidrosis; R11.0 Nausea; R05 Cough; R00.0 Tachycardia, unspecified; F17.210 Nicotine dependence, cigarettes, uncomplicated; I25.2 Old myocardial infarction; Z86.711 Personal history of pulmonary embolism; Z86.718 Personal history of other venous thrombosis and embolism; Z21 Asymptomatic human immunodeficiency virus [HIV] infection status; Z89.612 Acquired absence of left leg above knee; Z89.611 Acquired absence of right leg above knee; Z88.8 Allergy status to other drugs, medicaments and biological substances
CPT/HCPCS: 93005; 94640; 99285; 96374; 96375; 36415; 82553; 82550; 85025; 80053; 84484; 71046; 93010; J2270; A9270 ×3; J2405

== ENCOUNTER 2020-02-27 00:50 | Emergency (ER) | payer MEDICARE, MEDICAID ==
[2020-02-27 01:28] LABS: ABSOLUTE BASOPHILS # (AUTO) 0.1 10^3/uL (0.0-0.2); ABSOLUTE EOSINOPHILS # (AUTO) 0.4 10^3/uL (0.0-0.6); ABSOLUTE NEUT (AUTO) 5.1 10^3/uL (1.7-8.2); BASOPHILS % (AUTO) 0.9 % (0-2); EOSINOPHILS % (AUTO) 4.4 % (0-6); HEMATOCRIT 30.2 % (37.9-51.0); HEMOGLOBIN 10.3 g/dL (13.5-17.0); LYMPHOCYTES % (AUTO) 31.1 % (13-45); MEAN CORPUSCULAR HEMOGLOBIN 34.1 pg (27.0-33.4); MEAN CORPUSCULAR VOLUME 100 fl (80-97); MONOCYTES % (AUTO) 10.7 % (3-13); PLATELET COUNT 221 10^3/uL (150-450); RED BLOOD COUNT 3.02 10^6/uL (4.35-5.55); RED CELL DISTRIBUTION WIDTH 16.9 % (11.5-14.0); SEGMENTED NEUTROPHILS % (AUTO) 52.9 % (42-78); TOTAL CELLS COUNTED % (AUTO) 100 %; WHITE BLOOD COUNT 9.6 10^3/uL (4.0-10.5)
[2020-02-27 01:34] LABS: INTERNATIONAL RATION (INR) 1.24; PROTHROMBIN TIME 15.8 SEC (11.4-15.4)
[2020-02-27 02:36] LABS: BLOOD UREA NITROGEN 48 mg/dL (7-20); CALCIUM 8.9 mg/dL (8.4-10.2); GLUCOSE 122 mg/dL (75-110)
[2020-02-27 02:37] LABS: ALKALINE PHOSPHATASE 59 U/L (38-126); ANION GAP 14 (5-19); ASPARTATE AMINO TRANSFERASE 22 U/L (17-59); BILIRUBIN,DIRECT 0.1 mg/dL (0.0-0.4); BILIRUBIN,TOTAL 0.3 mg/dL (0.2-1.3); CARBON DIOXIDE 26 mmol/L (22-30); CHLORIDE 97 mmol/L (98-107); POTASSIUM 5.6 mmol/L (3.6-5.0); TOTAL PROTEIN 7.1 g/dL (6.3-8.2)
--- NOTE | 2020-02-27 03:35 | ER Document Report ---
Entered by SEBASTIAN MCCALL SCRIBE 02/27/20 0323 Acting as scribe for:RICA CLAROS IV, MD ED General - General Mode of Arrival: Medic Information source: Patient TRAVEL OUTSIDE OF THE [place] IN LAST 30 DAYS: No <RICA CLAROS IV - Last Filed: 02/27/20 06:26> <GUZMANDENIS - Last Filed: 02/27/20 08:59> - General Chief Complaint: Respiratory Distress Stated Complaint: SHORTNESS OF BREATH Time Seen by Provider: 02/27/20 03:04 Primary Care Provider: LUIS CROW MD [Primary Care Provider] - Follow up as needed Notes: This 64 year old male patient with a history of CHF and COPD brought in by EMS presents to the ED today with complaints of shortness of breath while laying flat, cough, and abdominal distension. Patient states that his work of breathing is improved with sitting up. Patient was seen here yesterday with a similar complaint and reports that the breathing treatments he received here "worked a little bit." He admits that he continues to smoke, but he is trying to quit. Patient has a history of ESRD on HD (MWF) and states that he has been compliant with dialysis and has not missed an appointment. Denies any other complaints. (RICA CLAROS IV) - Related Data Allergies/Adverse Reactions: calcitriol Allergy (Verified 02/02/20 22:32) itching Past Medical History - General Information source: Patient, [facility] Records - Social History Smoking Status: Current Every Day Smoker Cigarette use (# per day): Yes Chew tobacco use (# tins/day): No Smoking Education Provided: No Frequency of alcohol use: None Drug Abuse: None Family History: Reviewed & Not Pertinent, CAD, CVA, DM, Hyperlipidemia, Hypertension, Malignancy Patient has suicidal ideation: No Patient has homicidal ideation: No - Past Medical History Cardiac Medical History: Reports: Hx Congestive Heart Failure - EF is 25-30% in 01/2020, + diastolic dysfunction, Hx Coronary Artery Disease, Hx DVT, Hx Heart Attack, Hx Hypercholesterolemia, Hx Hypertension, Hx Peripheral Vascular Disease, Hx Pulmonary Embolism Pulmonary Medical History: Reports: Hx Bronchitis, Hx COPD, Hx Pneumonia, Hx Respiratory Failure Neurological Medical History: Endocrine Medical History: Reports: Hx Diabetes Mellitus Type 2 - insulin dependent Renal/ Medical History: Reports: Hx End Stage Renal Disease - Dialysis MWF with Dr. 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, Reports Hx Musculoskeletal Trauma Psychiatric Medical History: Reports: Hx Depression Infectious Medical History: Reports: Hx HIV - noncompliant with meds Past Surgical History: Reports: Hx Orthopedic Surgery - bilateral amputation, R BKA, L AKA, Hx Vascular Surgery - left arm clot removed, IVC filter, thrombectomy 05/18/2018 left arm, Other - Tunnel graft right axillary femoral bypass, dialysis fistula LUE - Immunizations Immunizations up to date: Yes Hx Diphtheria, Pertussis, Tetanus Vaccination: Yes Hx Pneumococcal Vaccination: 07/21/10 <RICA CLAROS IV - Last Filed: 02/27/20 06:26> Review of Systems - Review of Systems Constitutional: No symptoms reported EENT: No symptoms reported Cardiovascular: No symptoms reported Respiratory: See HPI, Cough, Short of breath Gastrointestinal: See HPI, Abdomen distended Genitourinary: No symptoms reported Male Genitourinary: No symptoms reported Musculoskeletal: No symptoms reported Skin: No symptoms reported Hematologic/Lymphatic: No symptoms reported Neurological/Psychological: No symptoms reported -: Yes All other systems reviewed and negative <RICA CLAROS IV - Last Filed: 02/27/20 06:26> Physical Exam - General General appearance: Alert - Looking on his phone In distress: None - HEENT Head: Normocephalic, Atraumatic Eyes: Normal Pupils: PERRL - Respiratory Respiratory status: No respiratory distress Chest status: Nontender Breath sounds: Normal Chest palpation: Normal - Cardiovascular Rhythm: Regular, Tachycardia - slight Murmur: No Friction rub: No Gallop: None auscultated - Abdominal Inspection: Normal Distension: No distension Bowel sounds: Normal Tenderness: Nontender - Abdomen soft Organomegaly: No organomegaly - Back Back: Normal, Nontender - Extremities General upper extremity: Normal inspection General lower extremity: Other - Left AKA, Right BKA - Neurological Neuro grossly intact: Yes Orientation: AAOx4 Star Coma Scale Eye Opening: Spontaneous Star Coma Scale Verbal: Oriented Star Coma Scale Motor: Obeys Commands Star Coma Scale Total: 15 - Psychological Associated symptoms: Normal affect, Normal mood - Skin Skin Temperature: Warm Skin Moisture: Dry Skin Color: Normal <RICA CLAROS IV - Last Filed: 02/27/20 06:26> - Vital signs Vitals: Temp 97.9 F 02/27/20 00:51 Course - Laboratory Result Diagrams: 02/27/20 01:10 02/27/20 01:46 - Transfer of Care Care transferred to following provider: Dr. Guzman at 0625 <RICA CLAROS IV - Last Filed: 02/27/20 06:26> - Laboratory Result Diagrams: 02/27/20 01:10 02/27/20 01:46 <DENIS GUZMAN - Last Filed: 02/27/20 08:59> - Re-evaluation Re-evalutation: 02/27/20 08:57 Patient was seen primarily by Dr. Claros and I assumed care at 0630 hrs. Initial treating physician had already addressed the patient's mild hyperkalemia. Patient has chronic recurrent chest pain. He showed no acute changes on his initial EKG and I repeated a tracing that was unchanged. He has had 2 troponins here that are mildly elevated but they are trending downward and neither reaches the threshold for a non-STEMI. We note also that he is in end- stage renal disease patient on dialysis. There was some question on plain film of the chest about a possible infiltrate versus atelectasis at the left base. A noncontrast CT of the chest was obtained and this confirmed that this was simple atelectasis. Patient is reassured and advised to continue his usual medications at home and go for dialysis tomorrow. He may return here for new or worsening symptoms. Findings, clinical impression and plan of treatment have been discussed with patient/family. Understanding of current findings and recommendations has been acknowledged by them and there is agreement regarding disposition and follow-up. (DENIS GUZMAN) - Vital Signs Vital signs: Temp Pulse Resp BP Pulse Ox 97.9 F 12 159/102 H 99 02/27/20 01:05 02/27/20 06:50 02/27/20 06:50 02/27/20 06:50 - Laboratory Laboratory results interpreted by me: 02/27/20 02/27/20 02/27/20 01:10 01:10 01:46 RBC 3.02 L Hgb 10.3 L Hct 30.2 L MCV 100 H MCH 34.1 H RDW 16.9 H PT 15.8 H Potassium 5.6 H Chloride 97 L BUN 48 H Creatinine 7.76 H Est GFR ( Amer) 9 L Est GFR (MDRD) Non-Af 7 L Glucose 122 H - EKG Interpretation by Me Additional EKG results interpreted by me: 02/27/20 06:27 EKG obtained on 02/27/2020 at 035 7 hours was interpreted by this MD. Findings sinus tachycardia, right 103, left axis deviation is present, P waves preceding QRS complexes, QRS complexes appear narrow, there are no obvious patterns of ST segment elevation or depression present to suggest acute myocardial ischemia or infarction. Impression sinus tachycardia with left axis deviation and nonspecific ST segments. (RICA CLAROS IV) 02/27/20 08:07 Repeat EKG at 0727 hrs. is reviewed contemporaneously by me showing sinus tachycardia with a rate of 102. Patient has a left anterior fascicular block and LVH. These findings are similar to prior tracing from 0357 hrs. this morning. There are no new ST/T wave changes noted. (DENIS GUZMAN) Discharge <RICA CLAROS IV - Last Filed: 02/27/20 06:26> <DENIS GUZMAN - Last Filed: 02/27/20 08:59> - Discharge Clinical Impression: Chronic kidney disease with end stage renal failure on dialysis Dyspnea Qualifiers: Dyspnea type: unspecified Qualified Code(s): R06.00 - Dyspnea, unspecified Condition: Stable Disposition: HOME, SELF-CARE Additional Instructions: Go to dialysis tomorrow. Take previously prescribed medications as instructed. You may return here as needed for new or worsening symptoms. Referrals: LUIS CROW MD [Primary Care Provider] - Follow up as needed I personally performed the services described in the documentation, reviewed and edited the documentation which was dictated to the scribe in my presence, and it accurately records my words and actions.
[2020-02-27] MEDS ORDERED: IPRATROPIUM/ALBUTEROL 0.5-2.5 MG/3 ML AMPUL NEB ONE (03:41)
[2020-02-27] MEDS ORDERED: ISOSORBIDE MONONITRATE 30 MG TAB.ER.24H PO STA (03:42)
[2020-02-27] MEDS ORDERED: MORPHINE SULFATE 10 MG/ML INJ IV ONE (03:43)
[2020-02-27] MEDS ORDERED: SODIUM POLYSTYRENE SULFONATE 15 GM/60 ML PO ONE (03:45)
[2020-02-27] MEDS ORDERED: DIPHENHYDRAMINE HCL 50 MG/ML VIAL IV ONE (04:15)
--- NOTE | 2020-02-27 04:29 | RADIOLOGY REPORT (SQ) ---
EXAM DESCRIPTION: XR CHEST 1 VIEW COMPLETED DATE/TME: 02/27/2020 03:43 CLINICAL HISTORY: 64 years, Male, dyspnea COMPARISON: None. NUMBER OF VIEWS: 1 TECHNIQUE: Portable chest LIMITATIONS: None. FINDINGS: Heart size is normal. Subsegmental atelectasis in each leg base. Underlying COPD. Patchy left basilar airspace opacity. Surgical clips right axilla. No pneumothorax IMPRESSION: COPD. Left basilar airspace opacity copyright 2010 [employer]- All Rights Reserved
--- NOTE | 2020-02-27 06:17 | RADIOLOGY REPORT (SQ) ---
EXAM DESCRIPTION: CT CHEST WITHOUT IV CONTRAST COMPLETED DATE/TME: 02/27/2020 04:49 CLINICAL HISTORY: renal patient left infiltrate on cxr COMPARISON: 02/06/2020 TECHNIQUE: Axial CT images of the chest without IV contrast obtained from the thoracic inlet through the diaphragm. Coronal and sagittal reformatted images available. FINDINGS: Chest: Thyroid:No abnormalities of the visualized thyroid. Great Vessels:Great vessels have normal anatomic configuration. Thoracic Aorta: Atherosclerotic calcification of the thoracic aorta. Pulmonary arteries:The main pulmonary artery is not dilated. Heart: Cardiomegaly. No significant pericardial effusion. Coronary artery atherosclerosis. Lymph Nodes:No enlarged mediastinal lymph nodes identified. Esophagus:No abnormalities of the esophagus identified Other:No additional findings. Lungs: Linear bibasilar opacities likely representing atelectasis. Centrilobular emphysematous change. Pleura:No pleural effusion or pneumothorax. Trachea/Airways:No abnormalities of the visualized trachea or airways. Bones: Mild degenerative endplate spondylosis. Upper Abdomen:Limited images of the upper abdomen demonstrate no definite abnormalities of visualized portions of the liver, gallbladder, pancreas, spleen, or adrenal glands. Bilateral renal atrophy. Stable appearance of the suprarenal abdominal aorta. IMPRESSION: 1. Linear bibasilar opacities likely related to atelectasis. 2. Cardiomegaly. 3. Centrilobular emphysematous change This exam was performed according to our departmental dose-optimization program, which includes automated exposure control, adjustment of the mA and/or kV according to patient size and/or use of iterative reconstruction technique.
[2020-02-27] MEDS ORDERED: ACETAMINOPHEN 325 MG TABLET PO ONE (08:06)
--- NOTE | 2020-02-27 08:24 | EKG REPORT ---
SEVERITY:- ABNORMAL ECG - SINUS TACHYCARDIA LEFT ANTERIOR FASCICULAR BLOCK LEFT VENTRICULAR HYPERTROPHY BORDERLINE PROLONGED QT INTERVAL : Confirmed by: Marco Young MD 27-Feb-2020 08:23:56
--- NOTE | 2020-02-27 08:26 | EKG REPORT ---
SEVERITY:- ABNORMAL ECG - SINUS TACHYCARDIA WITH PAC LEFT AXIS DEVIATION LEFT VENTRICULAR HYPERTROPHY BORDERLINE PROLONGED QT INTERVAL LA ABNORMALITY : Confirmed by: Marco Young MD 27-Feb-2020 08:25:35
[2020-02-27 09:04] VITALS: BP 172/94
== END 2020-02-27 09:17 | disposition home or self-care (01) ==
LOC: ER 00:50
DX: I13.2 Hypertensive heart and chronic kidney disease with heart failure and with stage 5 chronic kidney disease, or end stage renal disease (principal); E11.22 Type 2 diabetes mellitus with diabetic chronic kidney disease; N18.6 End stage renal disease; I50.30 Unspecified diastolic (congestive) heart failure; R06.00 Dyspnea, unspecified; R06.02 Shortness of breath; J44.9 Chronic obstructive pulmonary disease, unspecified; R05 Cough; R14.0 Abdominal distension (gaseous); R07.9 Chest pain, unspecified; R00.0 Tachycardia, unspecified; E87.5 Hyperkalemia; Z99.2 Dependence on renal dialysis; Z79.4 Long term (current) use of insulin; Z88.8 Allergy status to other drugs, medicaments and biological substances; F17.200 Nicotine dependence, unspecified, uncomplicated; I25.10 Atherosclerotic heart disease of native coronary artery without angina pectoris; I25.2 Old myocardial infarction; Z86.718 Personal history of other venous thrombosis and embolism
CPT/HCPCS: 93005; 94640; 99284; 96374; 96375; 36415; 85025; 85610; 85730; 80053; 84484; 71045; 71250; 93010; J1200; J2270; A9270 ×2

== ENCOUNTER → 2020-03-31 | Outpatient (CLI) | payer MEDICARE, MEDICAID ==
[2020-03-31 13:58] LABS: ABSOLUTE EOSINOPHILS # (AUTO) 0.4 10^3/uL (0.0-0.6); ABSOLUTE LYMPHOCYTES (AUTO) 2.5 10^3/uL (0.5-4.7); ABSOLUTE MONOCYTES (AUTO) 0.7 10^3/uL (0.1-1.4); ABSOLUTE NEUT (AUTO) 4.5 10^3/uL (1.7-8.2); BASOPHILS % (AUTO) 0.5 % (0-2); EOSINOPHILS % (AUTO) 4.5 % (0-6); HEMATOCRIT 33.5 % (37.9-51.0); HEMOGLOBIN 11.6 g/dL (13.5-17.0); MEAN CORPUSCULAR HGB CONC 34.7 g/dL (32.0-36.0); MEAN CORPUSCULAR VOLUME 98 fl (80-97); MONOCYTES % (AUTO) 8.8 % (3-13); PLATELET COUNT 233 10^3/uL (150-450); RED BLOOD COUNT 3.42 10^6/uL (4.35-5.55); RED CELL DISTRIBUTION WIDTH 15.3 % (11.5-14.0); SEGMENTED NEUTROPHILS % (AUTO) 55.2 % (42-78); TOTAL CELLS COUNTED % (AUTO) 100 %; WHITE BLOOD COUNT 8.2 10^3/uL (4.0-10.5)
[2020-03-31 14:05] LABS: APPEARANCE,URINE SLIGHTLY-CLOUDY; BILIRUBIN,URINE NEGATIVE (NEGATIVE); COLOR,URINE YELLOW; GLUCOSE, URINE 50 mg/dL (NEGATIVE); KETONES,URINE NEGATIVE (NEGATIVE); LEUKOCYTE ESTERASE,URINE LARGE (NEGATIVE); NITRITE,URINE NEGATIVE (NEGATIVE); PROTEIN,URINE 100 mg/dL (NEGATIVE); URINE SPECIFIC GRAVITY 1.011; UROBILINOGEN,URINE NEGATIVE mg/dL (<2.0)
[2020-03-31 14:34] LABS: ALBUMIN 4.1 g/dL (3.5-5.0); ALKALINE PHOSPHATASE 52 U/L (38-126); ANION GAP 15 (5-19); ASPARTATE AMINO TRANSFERASE 20 U/L (17-59); BILIRUBIN,DIRECT 0.7 mg/dL (0.0-0.4); BILIRUBIN,TOTAL 0.7 mg/dL (0.2-1.3); BLOOD UREA NITROGEN 53 mg/dL (7-20); CALCIUM 9.1 mg/dL (8.4-10.2); CARBON DIOXIDE 25 mmol/L (22-30); CHLORIDE 97 mmol/L (98-107); GLUCOSE 83 mg/dL (75-110); TOTAL PROTEIN 6.9 g/dL (6.3-8.2)
[2020-03-31 15:02] LABS: POTASSIUM 6.7 mmol/L (3.6-5.0)
[2020-04-01 16:37] LABS: % CD 4 POS LYMPH 26.1 % (30.8-58.5); ABSOLUTE CD 4 HELPER 705 /uL (359-1519); BASOPHILS (ABSOLUTE) 0.1 x10E3/uL (0.0-0.2); CD BASOPHILS 1 % (Not Estab.); CD EOSINOPHILS 5 % (Not Estab.); CD MONOCYTES 9 % (Not Estab.); CD NEUTROPHILS 52 % (Not Estab.); EOSINOPHILS (ABSOLUTE) 0.4 x10E3/uL (0.0-0.4); HEMOGLOBIN 11.5 g/dL (13.0-17.7); IMMATURE GRANULOCYTES 1 % (Not Estab.); LYMPHS(ABSOLUTE) 2.7 x10E3/uL (0.7-3.1); MCHC 35.3 g/dL (31.5-35.7); MCV 94 fL (79-97); PLATELETS 254 x10E3/uL (150-450); RBC 3.46 x10E6/uL (4.14-5.80); RDW 14.1 % (11.6-15.4); WBC 8.7 x10E3/uL (3.4-10.8)
== END ==
LOC: OD 12:30
PROVIDERS: ATTEND Nurse Practitioner
DX: E78.5 Hyperlipidemia, unspecified (principal); Z21 Asymptomatic human immunodeficiency virus [HIV] infection status; Z11.3 Encounter for screening for infections with a predominantly sexual mode of transmission
CPT/HCPCS: 36415; 80053; 81001; 85025; 86361; 86592

== ENCOUNTER 2020-04-24 06:38 | Inpatient (IN) | payer MEDICARE, MEDICAID ==
[2020-04-24] MEDS ORDERED: IPRATROPIUM/ALBUTEROL 0.5-2.5 MG/3 ML AMPUL NEB ONE (06:47)
[2020-04-24] MEDS ORDERED: MORPHINE SULFATE 10 MG/ML INJ IV ONE (06:51)
[2020-04-24] MEDS ORDERED: METHYLPREDNISOLONE INJ 125 MG/2 ML SDV IV ONE (06:51)
[2020-04-24] MEDS ORDERED: NITROGLYCERIN 2% OINTMENT 1 GM PACKET TP ONE (06:52)
[2020-04-24] MEDS ORDERED: ONDANSETRON HCL INJ/PF 4 MG/2 ML SDV IV ONE (06:52)
[2020-04-24] MEDS ORDERED: ALBUTEROL SULFATE 0.083% NEB 2.5 MG/3 ML AMPUL NEB ONE (06:57)
[2020-04-24 07:15] LABS: INTERNATIONAL RATION (INR) 1.69
[2020-04-24 07:16] LABS: PARTIAL THROMBOPLASTIN TIME 39.7 SEC (23.5-35.8)
[2020-04-24 07:22] LABS: ABSOLUTE BASOPHILS # (AUTO) 0.1 10^3/uL (0.0-0.2); ABSOLUTE EOSINOPHILS # (AUTO) 0.2 10^3/uL (0.0-0.6); ABSOLUTE LYMPHOCYTES (AUTO) 3.6 10^3/uL (0.5-4.7); ABSOLUTE MONOCYTES (AUTO) 1.3 10^3/uL (0.1-1.4); ABSOLUTE NEUT (AUTO) 8.4 10^3/uL (1.7-8.2); BASOPHILS % (AUTO) 0.6 % (0-2); EOSINOPHILS % (AUTO) 1.4 % (0-6); HEMATOCRIT 41.3 % (37.9-51.0); HEMOGLOBIN 13.9 g/dL (13.5-17.0); LYMPHOCYTES % (AUTO) 26.5 % (13-45); MEAN CORPUSCULAR HEMOGLOBIN 33.3 pg (27.0-33.4); MEAN CORPUSCULAR HGB CONC 33.7 g/dL (32.0-36.0); MEAN CORPUSCULAR VOLUME 99 fl (80-97); MONOCYTES % (AUTO) 9.5 % (3-13); PLATELET COUNT 286 10^3/uL (150-450); RED BLOOD COUNT 4.17 10^6/uL (4.35-5.55); RED CELL DISTRIBUTION WIDTH 15.5 % (11.5-14.0); TOTAL CELLS COUNTED % (AUTO) 100 %; WHITE BLOOD COUNT 13.6 10^3/uL (4.0-10.5)
[2020-04-24 07:23] LABS: ALBUMIN 4.7 g/dL (3.5-5.0); ALKALINE PHOSPHATASE 79 U/L (38-126); ASPARTATE AMINO TRANSFERASE 25 U/L (17-59); BILIRUBIN,DIRECT 0.5 mg/dL (0.0-0.4); BILIRUBIN,TOTAL 0.6 mg/dL (0.2-1.3); BLOOD UREA NITROGEN 55 mg/dL (7-20); CARBON DIOXIDE 19 mmol/L (22-30); CHLORIDE 97 mmol/L (98-107); CREATINE KINASE 215 U/L (55-170); GLUCOSE 143 mg/dL (75-110); TOTAL PROTEIN 7.8 g/dL (6.3-8.2)
[2020-04-24 07:32] LABS: ANION GAP 21 (5-19)
[2020-04-24 07:39] LABS: TROPONIN I 0.315 ng/mL
[2020-04-24] MEDS ORDERED: HYDRALAZINE HCL INJ/PF 20 MG/1 ML SDV IV ONE ×2 (07:48→10:35)
[2020-04-24] MEDS ORDERED: NITROGLYCERIN/D5W 50 MG/250 ML RTUINJ IV PRN ×3 (07:51→13:50)
[2020-04-24] MEDS ORDERED: ASPIRIN 81 MG TABLET, CHEWABLE PO ONE (07:54)
--- NOTE | 2020-04-24 07:59 | RADIOLOGY REPORT (SQ) ---
AP Portable chest: 04/24/2020 6:57 AM CDT History: 64-year old patient with dyspnea. Comparison: Chest radiograph performed 02/27/2020. Findings: The cardiomediastinal silhouette is enlarged. No pneumothorax is seen. No discrete pleural effusion is apparent. There are airspace opacities seen bilaterally, right greater than left. These may reflect developing infection. Impression: There are bilateral airspace opacities, right greater than left which may reflect infection. Interval follow-up to exclude a mass is recommended.
[2020-04-24] MEDS ORDERED: LABETALOL HCL INJ 20 MG/4 ML DISP.SYRIN IV ONE (08:17)
[2020-04-24] MEDS ORDERED: CLOPIDOGREL BISULFATE 300 MG TABLET PO ONE (08:40)
[2020-04-24] MEDS ORDERED: CLOPIDOGREL BISULFATE 75 MG TABLET PO ONE (09:35)
[2020-04-24 11:30] LABS: VENOUS BLOOD BASE EXCESS -6.4 mmol/L; VENOUS BLOOD HCO3 18.6 mmol/L (20-32); VENOUS BLOOD PCO2 35.4 mmHg (35-63); VENOUS BLOOD PH 7.34 (7.30-7.42)
--- NOTE | 2020-04-24 11:31 | ER Document Report ---
Entered by SEBASTIAN MCCALL SCRIBE 04/24/20 0647 Acting as scribe for:LIVIER PEDROZA MD ED Respiratory Problem - General Chief Complaint: Breathing Difficulty Stated Complaint: DIFFICULTY BREATHING Mode of Arrival: Medic Information source: Emergency Med Personnel Notes: This 64 year old male patient with a history significant for morbid obesity, HTN, HLD, CAD s/p SD, PE on Warfarin, ESRD on HD (MWF, last on 04/21), and CKD stage IV presents to the ED today via EMS for evaluation of shortness of breath that started around 0500 this morning. EMS reports associated mid-sternal chest pain and diaphoresis. Vital signs with DuoNeb treatment per EMS were: BP 180/123, HR 120, RR 26, O2 sats 94%, and temp 97.7. TRAVEL OUTSIDE OF THE [place] IN LAST 30 DAYS: No - Related Data Allergies/Adverse Reactions: calcitriol Allergy (Verified 04/24/20 08:42) itching Past Medical History - General Information source: Emergency Med Personnel, [facility] Records - Social History Smoking Status: Unknown if Ever Smoked Smoking Education Provided: No Family History: Reviewed & Not Pertinent, CAD, CVA, DM, Hyperlipidemia, Hypertension, Malignancy Patient has suicidal ideation: No Patient has homicidal ideation: No - Past Medical History Cardiac Medical History: Reports: Hx Congestive Heart Failure - EF is 25-30% in 01/2020, + diastolic dysfunction, Hx Coronary Artery Disease, Hx DVT, Hx Heart Attack, Hx Hypercholesterolemia, Hx Hypertension, Hx Peripheral Vascular Disease, Hx Pulmonary Embolism Pulmonary Medical History: Reports: Hx Bronchitis, Hx COPD, Hx Pneumonia, Hx Respiratory Failure Neurological Medical History: Endocrine Medical History: Reports: Hx Diabetes Mellitus Type 2 - insulin dependent Renal/ Medical History: Reports: Hx End Stage Renal Disease - Dialysis MWF with Dr. 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, Reports Hx Musculoskeletal Trauma Psychiatric Medical History: Reports: Hx Depression Infectious Medical History: Reports: Hx HIV - noncompliant with meds Past Surgical History: Reports: Hx Orthopedic Surgery - bilateral amputation, R BKA, L AKA, Hx Vascular Surgery - IVC filter, thrombectomy 05/18/2018 left arm, Other - Tunnel graft right axillary femoral bypass, dialysis fistula LUE - Immunizations Immunizations up to date: Yes Hx Diphtheria, Pertussis, Tetanus Vaccination: Yes Hx Pneumococcal Vaccination: 07/21/10 Review of Systems - Review of Systems Constitutional: See HPI, Diaphoresis EENT: No symptoms reported Cardiovascular: See HPI, Chest pain Respiratory: See HPI, Short of breath Gastrointestinal: No symptoms reported Genitourinary: No symptoms reported Male Genitourinary: No symptoms reported Musculoskeletal: No symptoms reported Skin: No symptoms reported Hematologic/Lymphatic: No symptoms reported Neurological/Psychological: No symptoms reported -: Yes All other systems reviewed and negative Physical Exam - Vital signs Vitals: Resp Pulse Ox 26 H 100 04/24/20 06:43 04/24/20 06:43 - General General appearance: Alert, Other - Appears chronically ill and acute severe distress In distress: Severe - HEENT Head: Normocephalic, Atraumatic Eyes: Normal Pupils: PERRL - Respiratory Respiratory status: Tachypnea Breath sounds: Wheezing - Diffuse inspiratory and expiratory wheezing - Cardiovascular Rhythm: Regular, Tachycardia Heart sounds: Normal auscultation, S1 appreciated, S2 appreciated Murmur: No Friction rub: No Gallop: None auscultated - Abdominal Inspection: Obese Distension: No distension Bowel sounds: Normal Tenderness: Nontender - Abdomen soft Organomegaly: No organomegaly - Back Back: Normal, Nontender - Extremities General upper extremity: Normal inspection General lower extremity: Other - Right BKA, left AKA - Neurological Neuro grossly intact: Yes Orientation: AAOx4 [place] Coma Scale Eye Opening: Spontaneous [place] Coma Scale Verbal: Oriented Star Coma Scale Motor: Obeys Commands [place] Coma Scale Total: 15 - Psychological Associated symptoms: Normal affect, Normal mood - Skin Skin Temperature: Warm Skin Moisture: Diaphoretic Skin Color: Normal Course - Re-evaluation Re-evalutation: 04/24/20 10:[address] Larios again regarding this patient at 1032. 04/24/20 16:08 Patient was seen on arrival to the emergency department by EMS. Patient in respiratory distress extremis with tachypnea on nonrebreather facemask with diffuse inspiratory expiratory wheezing. Sweats and systolic diastolic hypertension. Patient required further albuterol nebulizer treatment x2 and BiPAP with clearing of wheezing. Patient also complained of some chest tightness that was intermittent. Patient was found to be in congestive heart failure and a J-point elevation in the anterior lateral chest leads. Patient's initial troponin was elevated with a repeat troponin showing an improvement. Case was discussed with Dr. Larios who recommended that patient should be transferred to another facility inasmuch as patient is a chronic renal failure patient requiring dialysis today as well as an elevated troponin and acute respiratory distress. Patient was accepted in transfer to [facility] however they do not have bed availability to make an assignment for patient as yet therefore patient received which still in our hospital. Due to patient's accelerated hypertension patient was placed on a nitroglycerin drip as well as other blood pressure medications to lower his systolic and diastolic hypertension. We determined that since patient had no bed assignment as yet at [facility] that it was concepcion to go ahead and check admit patient and perform hemodialysis which is necessary today. Patient was accepted by our hospitalist team for dialysis purposes and further management and transfer to [facility] is still currently the plan of transfer. 04/24/20 16:13 Case was discussed with Dr. Villalta cloth hauler [facility] and inasmuch as patient has been there before they had records of patient showing these EKG changes were consistent with the EKG changes that he had previously were present at their hospital his last admission. It was determined that patient did not need emergency cardiac catheterization, therefore patient was accepted by the hospitalist team at [facility]. - Vital Signs Vital signs: Temp Pulse Resp BP Pulse Ox 97.4 F 112 H 18 144/80 H 99 04/24/20 15:54 04/24/20 15:54 04/24/20 15:54 04/24/20 15:54 04/24/20 15:54 - Laboratory Result Diagrams: 04/24/20 14:42 04/24/20 06:42 Laboratory results interpreted by me: 04/24/20 04/24/20 04/24/20 06:42 06:42 06:42 WBC 13.6 H RBC 4.17 L MCV 99 H RDW 15.5 H Absolute Neuts (auto) 8.4 H PT 20.0 H APTT 39.7 H VBG HCO3 Chloride 97 L Carbon Dioxide 19 L Anion Gap 21 H BUN 55 H Creatinine 11.56 H Est GFR ( Amer) 5 L Est GFR (MDRD) Non-Af 4 L Glucose 143 H Direct Bilirubin 0.5 H Creatine Kinase 215 H NT-Pro-B Natriuret Pep 04/24/20 04/24/20 06:42 11:12 WBC RBC MCV RDW Absolute Neuts (auto) PT APTT VBG HCO3 18.6 L Chloride Carbon Dioxide Anion Gap BUN Creatinine Est GFR ( Amer) Est GFR (MDRD) Non-Af Glucose Direct Bilirubin Creatine Kinase NT-Pro-B Natriuret Pep 08173 H - Diagnostic Test Radiology reviewed: Image reviewed, Reports reviewed Radiology results interpreted by me: 04/24/20 16:14 Chest x-ray shows cardiomegaly and interstitial bilateral infiltrate markings cephalization noted as well. - EKG Interpretation by Me Additional EKG results interpreted by me: 04/24/20 16:17 Twelve-lead EKG x0 734 shows sinus tachycardia rate of 109 left anterior fascicular block and borderline ST elevations also left ventricular hypertrophy with re-pole changes and a borderline prolonged QT interval DE interval and QRS intervals were within normal range no evidence for an acute STEMi Second EKG 0 821 -sinus tachycardia rate of greater than 100 left ventricular hypertrophy noted consider anterior SD infarct with ST elevations in the anterior septal region. This appears to be J-point elevation and not an acute STEMI. Borderline prolonged QT interval. Normal DE interval and QRS interval. [place] normal. - Consults Dr. Larios, Timber Packer Time consulted: 08:28 Dr. Villalta, Timber Packer @ [facility] Time consulted: 08:55 Dr. Hoff, Hospitalist @ [facility] Time consulted: 09:10 Dr. Lowe, Regional Account Manager Time consulted: 10:45 Dr. Schreiber, Hospitalist Time consulted: 10:50 Consulted provider: will come to ER Critical Care Note - Critical Care Note Total time excluding time spent on procedures (mins): 56 - Critical care time s pent on management the patient in respiratory failure congestive heart failure and elevated troponin with chest pain. Coordination of medications for IV nitroglycerin drip and other medications to control blood pressure. Also multiple discussions with specialists including cardiology local cardiology at [facility], nephrology Dr. chan and the hospitalist doctors at both facilities they both local and at the [facility] where we were transferring patient to when bed availability is available. Discharge - Discharge Clinical Impression: CHF (congestive heart failure), Chronic renal failure, Chronic kidney disease r equiring chronic dialysis, Hypertension, accelerated, Elevated troponin Condition: Critical Disposition: ADMITTED INPATIENT Admitting Provider: Abdoul (Hospitalist) Unit Admitted: IMCHASITY I personally performed the services described in the documentation, reviewed and edited the documentation which was dictated to the scribe in my presence, and it accurately records my words and actions.
--- NOTE | 2020-04-24 12:47 | EKG REPORT ---
SEVERITY:- ABNORMAL ECG - SINUS TACHYCARDIA LEFT ANTERIOR FASCICULAR BLOCK PROBABLE LEFT VENTRICULAR HYPERTROPHY BORDERLINE ST ELEVATION, ANTEROLATERAL LEADS BORDERLINE PROLONGED QT INTERVAL : Confirmed by: Annita Coker MD 24-Apr-2020 12:46:27
[2020-04-24] MEDS ORDERED: LEVALBUTEROL HCL NEB 1.25 MG/3 ML AMPUL NEB PRN (13:20)
[2020-04-24] MEDS ORDERED: ACETAMINOPHEN 325 MG TABLET PO PRN (13:20)
[2020-04-24] MEDS ORDERED: ONDANSETRON HCL INJ/PF 4 MG/2 ML SDV IV PRN (13:20)
[2020-04-24] MEDS ORDERED: HYDRALAZINE HCL INJ/PF 20 MG/1 ML SDV IV PRN (13:34)
[2020-04-24] MEDS ORDERED: PHARMACY COMMUNICATION ORDER MC NR (13:45)
[2020-04-24] MEDS ORDERED: MORPHINE SULFATE 10 MG/ML INJ IV PRN (13:52)
[2020-04-24] MEDS ORDERED: IPRATROPIUM BROMIDE 0.02% NEB 0.5 MG/2.5 ML AMPUL NEB SCH (14:00)
[2020-04-24] MEDS ORDERED: LEVALBUTEROL HCL NEB 1.25 MG/3 ML AMPUL NEB SCH (14:00)
[2020-04-24] MEDS ORDERED: CLONIDINE HCL 0.2 MG TABLET PO SCH (14:00)
[2020-04-24] MEDS ORDERED: DEXTROSE 50%-WATER 25 GM/50 ML DISP.SYRIN IV PRN ×2 (14:13)
[2020-04-24] MEDS ORDERED: DEXTROSE 40% GEL 15 GM TUBE PO PRN ×2 (14:13)
[2020-04-24] MEDS ORDERED: GLUCAGON,HUMAN RECOMB 1 MG INJ IM PRN (14:13)
--- NOTE | 2020-04-24 14:29 | PDOC H&P ---
History of Present Illness Admission Date/PCP: 04/24/20 11:28 LUIS CROW MD Patient complains of: Shortness of breath and chest pain History of Present Illness: KRISTY CANTU is a 64 year old male who is well-known to the hospitalist service. He was most recently admitted on January 20, 2020. He reports that at approximately 3:00 this morning he had abrupt onset of shortness of breath and chest pain. The chest pain was central and radiated to the right shoulder and right leg. He does have a history of bilateral above-knee amputations for peripheral vascular disease likely related to his diabetes. The patient noted that he was short of breath even at rest. He experienced increased work of breathing. He reported some nausea but no vomiting. He has had intermittent coughing and will produce white frothy sputum. In the emergency department his initial vital signs showed a blood pressure of 219/118. Pulse was 130 with a respiratory rate of 26. On BiPAP 16/8 with an FiO2 of 45% he did achieve a 100% saturation. He was placed on IV nitroglycerin and given several doses of IV hydralazine. His blood pressure has improved slightly but he is still having some discomfort. It is difficult to tell how much of it is related to his increased work of breathing versus actual chest pain. He is initial troponin was 0.315. Reviewing the last 12 months of lab work shows that his troponin is typically between 0.05 and 0.11. He was due for dialysis today and the patient was brought to the third floor as a patient under investigation and for emergent dialysis. He is currently on hemodialysis. He is still quite tachypneic. We will resume his home antihypertensive medications which are extensive. We will continue the IV nitroglycerin with a goal of chest pain-free and systolic blood pressure less than 160. He remains on telemetry with sinus tachycardia. EKG shows likely left anterior fascicular block, probable left ventricular hypert rophy and borderline prolonged QT interval. Past Medical History Cardiac Medical History: Reports: Congestive Heart Failure - EF is 25-30% in 01/2020, + diastolic dysfunction, Coronary Artery Disease, DVT, Myocardial Infarction, Hyperlipidema, Hypertension, Peripheral Vascular Disease, Pulmonary Embolism Denies: Atrial Fibrillation Pulmonary Medical History: Reports: Bronchitis, Chronic Obstructive Pulmonary Disease (COPD), Pneumonia, Respiratory Failure Denies: Asthma, Sleep Apnea Neurological Medical History: Denies: Migraine, Seizures Endocrine Medical History: Reports: Diabetes Mellitus Type 2 - insulin dependent Denies: Diabetes Mellitus Type 1, Hyperthyroidism, Hypothyroidism Renal/ Medical History: Reports: End Stage Renal Disease - Dialysis MWF with Dr. Pablo Lowe GI Medical History: Reports: Gastroesophageal Reflux Disease Denies: Cirrhosis, Crohn's Disease, Hepatitis, Ulcerative Colitis Musculoskeltal Medical History: Reports: Arthritis Denies: Fibromyalgia Skin Medical History: Denies: Eczema, Psoriasis Psychiatric Medical History: Reports: Depression Traumatic Medical History: Denies: Traumatic Brain Injury Hematology: Reports: Anemia, Bleeding Tendencies - Since being on warfarin Infectious Medical History: Reports: HIV - noncompliant with meds Past Surgical History Past Surgical History: Reports: Orthopedic Surgery - bilateral amputation, R BKA, L AKA, Vascular Surgery - IVC filter, thrombectomy 05/18/2018 left arm, Other - Tunnel graft right axillary femoral bypass, dialysis fistula LUE Social History Information Source: Patient, [facility] Records Lives with: Alone Smoking Status: Current Every Day Smoker Frequency of Alcohol Use: None Hx Recreational Drug Use: Yes Drugs: Cocaine Hx Prescription Drug Abuse: No - Advance Directive Resuscitation Status: Full Code Family History Family History: CAD, CVA, DM, Hyperlipidemia, Hypertension, Malignancy Parental Family History Reviewed: Yes Children Family History Reviewed: NA Sibling(s) Family History Reviewed.: Yes Medication/Allergy Home Medications: Abacavir Sulfate [Abacavir 300 mg Tablet] 300 mg PO BID 08/22/19 Dolutegravir Sodium [Tivicay] 50 mg PO DAILY 08/22/19 Hydralazine HCl [Apresoline 10 mg Tablet] 10 mg PO Q12 08/22/19 Lamivudine [Epivir] 5 ml PO DAILY 08/22/19 Albuterol Sulfate [Ventolin Hfa 8 gm Mdi] 2 puff IH Q4HP PRN 10/20/19 Bupropion HCl [Bupropion HCl Sr] 150 mg PO Q12 01/20/20 Gabapentin [Neurontin 100 mg Capsule] 100 mg PO QHS 01/20/20 Nifedipine [Nifedipine ER] 120 mg PO DAILY 01/20/20 Atorvastatin Calcium [Lipitor 40 mg Tablet] 40 mg PO QHS 04/24/20 Clonidine HCl [Catapres 0.2 mg Tablet] 0.2 mg PO Q8 04/24/20 Furosemide [Lasix 80 mg Tablet] 80 mg PO BID 04/24/20 Isosorbide Mononitrate [Imdur 30 mg Tablet.er] 150 mg PO DAILY 04/24/20 Sevelamer Carbonate [Renvela] 2.4 gm PO MEALS 04/24/20 Warfarin Sodium 10 mg PO MOWEFR@219904/24/20 Warfarin Sodium [Jantoven 4 mg Tablet] 8 mg PO SUTUTHSA@2200 04/24/20 Allergies/Adverse Reactions: calcitriol Allergy (Verified 04/24/20 08:42) itching Review of Systems All systems: reviewed and no additional remarkable complaints except as stated Cardiovascular: PRESENT: chest pain, dyspnea on exertion - And at rest, other - Tachycardia Respiratory: PRESENT: cough, dyspnea, sputum - White frothy sputum Gastrointestinal: PRESENT: nausea Psychiatric: PRESENT: depression Physical Exam Vital Signs: Temp Pulse Resp BP Pulse Ox 25 H 196/101 H 99 04/24/20 12:00 04/24/20 11:56 04/24/20 12:00 Intake & Output 04/23/20 04/24/20 04/25/20 06:59 06:59 06:59 Intake Total 20 Balance 20 Weight 78.018 kg General appearance: PRESENT: cooperative - As best he can while on BiPAP, severe distress, well-developed Head exam: PRESENT: atraumatic, normocephalic Eye exam: PRESENT: conjunctiva pink. ABSENT: scleral icterus Ear exam: PRESENT: normal external ear exam. ABSENT: bleeding, drainage Mouth exam: PRESENT: other - On BiPAP. Difficult to assess. Teeth exam: PRESENT: other - On BiPAP. Difficult to assess. Throat exam: PRESENT: other - On BiPAP. Unable to assess Neck exam: PRESENT: JVD - Even at 90 degrees. ABSENT: carotid bruit, lymphadenopathy, thyromegaly, tracheostomy Respiratory exam: PRESENT: accessory muscle use, decreased breath sounds - Very shallow inspiratory phase due to tachypnea, prolonged expiratory phas, tachypnea. ABSENT: wheezes Cardiovascular exam: PRESENT: +S1, +S2, tachycardia. ABSENT: bradycardia, diastolic murmur, irregular rhythm, systolic murmur GI/Abdominal exam: PRESENT: hypoactive bowel sounds, soft. ABSENT: tenderness Rectal exam: PRESENT: deferred Gentrourinary exam: ABSENT: indwelling catheter Extremities exam: PRESENT: other - Bilateral amputee Musculoskeletal exam: PRESENT: deformity - Bilateral lower extremity amputee Neurological exam: PRESENT: alert, awake, oriented to person, oriented to place, oriented to situation, CN II-XII grossly intact. ABSENT: altered Psychiatric exam: PRESENT: anxious, appropriate affect - Affect reflects his current clinical condition. ABSENT: agitated Focused psych exam: ABSENT: delusional, paranoid, restlessness Skin exam: PRESENT: dry, normal color, warm. ABSENT: rash Results Laboratory Results: 04/24/20 06:42 04/24/20 06:42 04/24/20 04/24/20 04/24/20 06:42 06:42 06:42 WBC 13.6 H RBC 4.17 L Hgb 13.9 Hct 41.3 MCV 99 H MCH 33.3 MCHC 33.7 RDW 15.5 H Plt Count 286 Seg Neutrophils % 62.0 VBG pH VBG pCO2 VBG HCO3 VBG Base Excess Sodium 137.3 Potassium 5.0 Chloride 97 L Carbon Dioxide 19 L Anion Gap 21 H BUN 55 H Creatinine 11.56 H Est GFR ( Amer) 5 L Glucose 143 H Lactic Acid 1.3 Calcium 10.0 Total Bilirubin 0.6 AST 25 Alkaline Phosphatase 79 Total Protein 7.8 Albumin 4.7 04/24/20 11:12 WBC RBC Hgb Hct MCV MCH MCHC RDW Plt Count Seg Neutrophils % VBG pH 7.34 VBG pCO2 35.4 VBG HCO3 18.6 L VBG Base Excess -6.4 Sodium Potassium Chloride Carbon Dioxide Anion Gap BUN Creatinine Est GFR ( Amer) Glucose Lactic Acid Calcium Total Bilirubin AST Alkaline Phosphatase Total Protein Albumin 04/24/20 04/24/20 04/24/20 06:42 06:42 10:31 Creatine Kinase 215 H Troponin I 0.315 0.282 NT-Pro-B Natriuret Pep 93891 H Assessment and Plan - Diagnosis (1) Hypertensive emergency Is this a current diagnosis for this admission?: Yes (2) Acute respiratory failure with hypoxia Is this a current diagnosis for this admission?: Yes (3) Acute on chronic combined systolic and diastolic congestive heart failure Is this a current diagnosis for this admission?: Yes (4) ESRD needing dialysis Is this a current diagnosis for this admission?: Yes (5) Elevated troponin Is this a current diagnosis for this admission?: Yes (6) Hyperglycemia due to diabetes mellitus Is this a current diagnosis for this admission?: Yes (7) Elevated brain natriuretic peptide (BNP) level Is this a current diagnosis for this admission?: Yes (8) Tachycardia Is this a current diagnosis for this admission?: Yes (9) HIV (human immunodeficiency virus infection) Qualifiers: HIV symptom status: asymptomatic Qualified Code(s): Z21 - Asymptomatic human immunodeficiency virus [HIV] infection status Is this a current diagnosis for this admission?: Yes (10) Hyperlipidemia Qualifiers: Hyperlipidemia type: unspecified Qualified Code(s): E78.5 - Hyperlipidemia, unspecified Is this a current diagnosis for this admission?: Yes (11) Depression Qualifiers: Depression Type: unspecified Qualified Code(s): F32.9 - Major depressive disorder, single episode, unspecified Is this a current diagnosis for this admission?: Yes (12) FCI (current) use of anticoagulants Is this a current diagnosis for this admission?: Yes - Plan Summary Summary: This 64-year-old patient is well-known to the hospitalist service. He presents with chest pain and hypertensive emergency. He was due for dialysis today as well. He is pending transfer to [facility]. In the interim he will be admitted to [facility] to receive emergent hemodialysis. He has received several doses of intravenous hydralazine and is on a nitroglycerin infusion. I have ordered his standing antihypertensive medications including carvedilol 25 mg twice daily, clonidine 0.2 mg every 8 hours, Cardura 4 mg at at bedtime, hydralazine 10 mg p.o. every 12 hours, isosorbide mononitrate 150 mg daily, nifedipine extended release 90 mg daily and furosemide 80 mg twice daily. I also have morphine sulfate ordered for pain as well as to ease shortness of breath from heart failure. We will continue his warfarin at 10 mg on Friday and Friday and 8 mg on Friday, Friday, Friday and . He reports taking his warfarin yesterday. His INR is currently subtherapeutic at 1.69. BUN is 55 with a creatinine of 11.56 and I anticipate this to improve after dialysis. Glucose is 143 with a sodium of 137.3, potassium 5.0, chloride 97 and CO2 of 19. Brain natruretic peptide was elevated at 77,700. The initial troponin was 0.315 with a second troponin of 0.282. He has been accepted at [facility] and his transfer is pending bed availability. - Time Time Spent with patient: 35 or more minutes Smoking Cessation Education: 3 to 10 minutes Medications reviewed and adjusted accordingly: Yes Anticipated Discharge Disposition: [facility] Anticipated Discharge Timeframe: when bed available - Inpatient Certification Based on my medical assessment, after consideration of the patient's comorbidities, presenting symptoms, or acuity I expect that the services needed warrant INPATIENT care.: Yes I certify that my determination is in accordance with my understanding of Medicare's requirements for reasonable and necessary INPATIENT services [42 CFR 412.3e].: Yes Medical Necessity: Need Close Monitoring Due to Risk of Patient Decompensation, Need For Continuous Telemetry Monitoring, Need for Nebulizer Therapy and Monitoring of Response, Need for Pain Control Post Hospital Care: D/C or Transfer Summary
[2020-04-24] MEDS ORDERED: METOPROLOL TARTRATE PF/INJ 5 MG/5 ML SDV IV ONE (14:35)
--- NOTE | 2020-04-24 14:40 | PDOC TRANSFER SUMMARY ---
General Admission Date/PCP: 04/24/20 11:28 LUIS CROW MD Admission Date: 04/24/20 Transfer Date: 04/24/20 Accepting Facility: [facility] OF [facility] Resuscitation Status: Full Code - Transfer Diagnosis (1) Hypertensive emergency Is this a current diagnosis for this admission?: Yes (2) Acute respiratory failure with hypoxia Is this a current diagnosis for this admission?: Yes (3) Acute on chronic combined systolic and diastolic congestive heart failure Is this a current diagnosis for this admission?: Yes (4) ESRD needing dialysis Is this a current diagnosis for this admission?: Yes (5) Elevated troponin Is this a current diagnosis for this admission?: Yes (6) Hyperglycemia due to diabetes mellitus Is this a current diagnosis for this admission?: Yes (7) Elevated brain natriuretic peptide (BNP) level Is this a current diagnosis for this admission?: Yes (8) Tachycardia Is this a current diagnosis for this admission?: Yes (9) HIV (human immunodeficiency virus infection) Is this a current diagnosis for this admission?: Yes (10) Hyperlipidemia Is this a current diagnosis for this admission?: Yes (11) Depression Is this a current diagnosis for this admission?: Yes (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 Is this a current diagnosis for this admission?: Yes - Transfer Medications Home Medications: Abacavir Sulfate [Abacavir 300 mg Tablet] 300 mg PO BID 08/22/19 Dolutegravir Sodium [Tivicay] 50 mg PO DAILY 08/22/19 Hydralazine HCl [Apresoline 10 mg Tablet] 10 mg PO Q12 08/22/19 Lamivudine [Epivir] 5 ml PO DAILY 08/22/19 Albuterol Sulfate [Ventolin Hfa 8 gm Mdi] 2 puff IH Q4HP PRN 10/20/19 Bupropion HCl [Bupropion HCl Sr] 150 mg PO Q12 01/20/20 Gabapentin [Neurontin 100 mg Capsule] 100 mg PO QHS 01/20/20 Nifedipine [Nifedipine ER] 120 mg PO DAILY 01/20/20 Atorvastatin Calcium [Lipitor 40 mg Tablet] 40 mg PO QHS 04/24/20 Clonidine HCl [Catapres 0.2 mg Tablet] 0.2 mg PO Q8 04/24/20 Furosemide [Lasix 80 mg Tablet] 80 mg PO BID 04/24/20 Isosorbide Mononitrate [Imdur 30 mg Tablet.er] 150 mg PO DAILY 04/24/20 Sevelamer Carbonate [Renvela] 2.4 gm PO MEALS 04/24/20 Warfarin Sodium 10 mg PO MOWEFR@219904/24/20 Warfarin Sodium [Jantoven 4 mg Tablet] 8 mg PO SUTUTHSA@219904/24/20 Transfer Medications: Current Medications Acetaminophen (Tylenol 325 Mg Tablet) 650 mg PO Q4HP PRN PRN Reason: FOR PAIN OR TEMP Stop: 05/24/20 13:19 Atorvastatin Calcium (Lipitor 40 Mg Tablet) 40 mg PO QHS SHAQ Stop: 05/24/20 21:59 Budesonide (Pulmicort Neb 0.5 Mg/2 Ml Ampul) 0.5 mg NEB RTQ12 SHAQ Stop: 05/24/20 19:59 Bupropion HCl (Wellbutrin 75 Mg Tablet) 75 mg PO Q12 SHAQ Stop: 05/24/20 21:59 Carvedilol (Coreg 12.5 Mg Tablet) 25 mg PO Q12 SHAQ Stop: 05/24/20 21:59 Clonidine (Catapres 0.2 Mg Tablet) 0.2 mg PO Q8 SHAQ Stop: 05/24/20 13:59 Dextrose (Dextrose Inj 50% Syringe (25 Gm/50 Ml)) 12.5 gm IV PRN PRN; Protocol PRN Reason: FOR BG 50-69 IN ALERT PATIENT Stop: 05/24/20 14:12 Dextrose (Dextrose Inj 50% Syringe (25 Gm/50 Ml)) 25 gm IV PRN PRN; Protocol PRN Reason: PER PROTOCOL Stop: 05/24/20 14:12 Doxazosin Mesylate (Cardura 4 Mg Tablet) 4 mg PO QHS SHAQ Stop: 05/24/20 21:59 Furosemide (Lasix 80 Mg Tablet) 80 mg PO BID SHAQ Stop: 05/24/20 17:59 Gabapentin (Neurontin 300 Mg Capsule) 300 mg PO DAILY SHAQ Stop: 05/25/20 09:59 Glucagon (Glucagen Inj 1 Mg Vial) 1 mg IM PRN PRN; Protocol PRN Reason: Evaluate for BG < 70 Stop: 05/24/20 14:12 Glucose (Glutose 40% Gel 15 Gm Tube) 15 gm PO PRN PRN; Protocol PRN Reason: FOR BG 50-69 IN ALERT PATIENT Stop: 05/24/20 14:12 Glucose (Glutose 40% Gel 15 Gm Tube) 30 gm PO PRN PRN; Protocol PRN Reason: FOR BG < 50 IN ALERT PATIENT Stop: 05/24/20 14:12 Hydralazine HCl (Apresoline 10 Mg Tablet) 10 mg PO Q12 [facility] Stop: 05/24/20 21:59 Hydralazine HCl (Apresoline Inj/Pf 20 Mg/1 Ml Sdv) 10 mg IV Q6HP PRN PRN Reason: Give For Sbp > 160 / Dbp > 100 Stop: 05/24/20 13:33 Nitroglycerin/Dextrose (Ntg Rtu 50 Mg/D5w 250 Ml Iv Premix Bottle) 50 mg in 250 mls @ 0 mls/hr IV CONTINUOUS PRN; Protocol PRN Reason: THIS MED IS NOT "PRN" Stop: 05/24/20 13:42 Insulin Human Lispro (Humalog Insulin 100 Unit/1 Ml 3 Ml Vial) 0 - 12 unit SUBCUT ACHS [facility]; Protocol Stop: 05/24/20 15:59 Ipratropium [place] (Atrovent 0.02% Neb 0.5 Mg/2.5 Ml Ampul) 0.5 mg NEB RTQ6 [facility] Stop: 05/24/20 13:59 Isosorbide Mononitrate (Imdur 60 Mg Tablet.Er) 150 mg PO DAILY [facility] Stop: 05/25/20 09:59 Levalbuterol HCl (Xopenex Neb 1.25 Mg/3 Ml Ampul) 1.25 mg NEB RTQ6 [facility] Stop: 05/24/20 13:59 Levalbuterol HCl (Xopenex Neb 1.25 Mg/3 Ml Ampul) 1.25 mg NEB RTQ3HP PRN PRN Reason: SHORTNESS OF BREATH Stop: 05/24/20 13:19 Morphine Sulfate (Morphine 10 Mg/Ml Inj) 4 mg IV Q4HP PRN PRN Reason: FOR PAIN Stop: 05/01/20 13:51 Nifedipine (Procardia Xl 30 Mg Tablet) 90 mg PO DAILY [facility] Stop: 05/25/20 09:59 Ondansetron HCl (Zofran Inj/Pf 4 Mg/2 Ml Sdv) 4 mg IV Q6HP PRN PRN Reason: FOR NAUSEA/VOMITING Stop: 05/24/20 13:19 Pharmacy Consult (Warfarin Pharmacy To Dose) 1 dose PO .PHARMACY TO DOSE PRN; Protocol PRN Reason: THIS MED IS NOT "PRN" Stop: 05/24/20 13:46 Pharmacy Profile Note (Medication Communication Order) 1 each [facility] .NOTICE NR Stop: 05/24/20 13:44 Sodium Chloride (Saline Flush 2.5 Ml Monoject Prefil Syrin) 2.5 ml IV Q8 SHAQ Stop: 05/24/20 13:59 - Allergies Allergies/Adverse Reactions: calcitriol Allergy (Verified 04/24/20 08:42) itching Hospital Course Hospital Course: The patient had a brief hospital course. After only approximately 2 hours on the floor we were contacted by [facility] to be notified that there was a bed available. He was taken from the emergency department and urgent hemodialysis was performed. He is currently about 90 minutes from the end of his treatment. A bed has opened up at [facility] and we are timing the transfer to coincide with the end of his hemodialysis. On the nitroglycerin he is not having any chest pain currently. He is on a trial off of the BiPAP but there will be a low threshold to resume BiPAP therapy. His antihypertensive regimen, which is extensive, has been ordered. For his diabetes I have ordered Accu-Cheks and sliding scale coverage. He clearly is improved part way through his hemodialysis however he is still tachycardic and tachypneic. He did receive a single dose of IV Lopressor for his tachycardia and his blood pressure is improved from admission but still elevated. Postdialysis he is stable for transfer. Physical Exam Vital Signs: Temp Pulse Resp BP Pulse Ox 25 H 196/101 H 99 04/24/20 12:00 04/24/20 11:56 04/24/20 12:00 Intake & Output 04/23/20 04/24/20 04/25/20 06:59 06:59 06:59 Intake Total 46 Balance 46 Weight 78.018 kg General appearance: PRESENT: cooperative, severe distress, well-developed Head exam: PRESENT: atraumatic, normocephalic Neck exam: PRESENT: JVD. ABSENT: carotid bruit, lymphadenopathy Respiratory exam: PRESENT: decreased breath sounds - Decreased inspiratory phase due to tachypnea, symmetrical, tachypnea. ABSENT: rales, rhonchi, wheezes Cardiovascular exam: PRESENT: +S1, +S2, tachycardia GI/Abdominal exam: PRESENT: hypoactive bowel sounds, soft. ABSENT: distended, guarding, tenderness Rectal exam: PRESENT: deferred Extremities exam: PRESENT: other - Bilateral lower extremity amputee Musculoskeletal exam: PRESENT: deformity - Bilateral lower extremity amputee Neurological exam: PRESENT: alert, awake, oriented to person, oriented to place, oriented to time, oriented to situation, CN II-XII grossly intact. ABSENT: altered Psychiatric exam: PRESENT: anxious. ABSENT: agitated Focused psych exam: ABSENT: delusional, paranoid, restlessness Skin exam: PRESENT: dry, normal color, warm. ABSENT: rash Results Laboratory Results: 04/24/20 06:42 04/24/20 06:42 04/24/20 04/24/20 04/24/20 06:42 06:42 06:42 WBC 13.6 H RBC 4.17 L Hgb 13.9 Hct 41.3 MCV 99 H MCH 33.3 MCHC 33.7 RDW 15.5 H Plt Count 286 Seg Neutrophils % 62.0 VBG pH VBG pCO2 VBG HCO3 VBG Base Excess Sodium 137.3 Potassium 5.0 Chloride 97 L Carbon Dioxide 19 L Anion Gap 21 H BUN 55 H Creatinine 11.56 H Est GFR ( Amer) 5 L Glucose 143 H Lactic Acid 1.3 Calcium 10.0 Total Bilirubin 0.6 AST 25 Alkaline Phosphatase 79 Total Protein 7.8 Albumin 4.7 04/24/20 11:12 WBC RBC Hgb Hct MCV MCH MCHC RDW Plt Count Seg Neutrophils % VBG pH 7.34 VBG pCO2 35.4 VBG HCO3 18.6 L VBG Base Excess -6.4 Sodium Potassium Chloride Carbon Dioxide Anion Gap BUN Creatinine Est GFR ( Amer) Glucose Lactic Acid Calcium Total Bilirubin AST Alkaline Phosphatase Total Protein Albumin 04/24/20 04/24/20 04/24/20 06:42 06:42 10:31 Creatine Kinase 215 H Troponin I 0.315 0.282 NT-Pro-B Natriuret Pep [id number] H Plan Discharge Plan: Fortunately a bed has become available at [facility]. With his severe hypertension, depressed ejection fraction with diastolic dysfunction and elevated troponin with chest pain will be transferring to a higher level of care for possible intervention. The transfer will occur once he completes his hemodialysis treatment. Time Spent: Greater than 30 Minutes
[2020-04-24 14:52] LABS: HEMATOCRIT 41.7 % (37.9-51.0); HEMOGLOBIN 14.3 g/dL (13.5-17.0); MEAN CORPUSCULAR HEMOGLOBIN 33.2 pg (27.0-33.4); MEAN CORPUSCULAR HGB CONC 34.3 g/dL (32.0-36.0); MEAN CORPUSCULAR VOLUME 97 fl (80-97); PLATELET COUNT 281 10^3/uL (150-450); RED BLOOD COUNT 4.31 10^6/uL (4.35-5.55); RED CELL DISTRIBUTION WIDTH 15.4 % (11.5-14.0); WHITE BLOOD COUNT 10.6 10^3/uL (4.0-10.5)
[2020-04-24] MEDS ORDERED: INSULIN LISPRO 100 UNIT/ML 3 ML VIAL SUBCUT SCH (16:00)
[2020-04-24] MEDS ORDERED: FUROSEMIDE 80 MG TABLET PO SCH (18:00)
[2020-04-24 18:51] VITALS: BP 117/77
[2020-04-24] MEDS ORDERED: BUDESONIDE NEB 0.5 MG/2 ML AMPUL NEB SCH (20:00)
--- NOTE | 2020-04-24 21:53 | EKG REPORT ---
SEVERITY:- ABNORMAL ECG - SINUS TACHYCARDIA LEFT ANTERIOR FASCICULAR BLOCK PROBABLE LEFT VENTRICULAR HYPERTROPHY CONSIDER ANTERIOR INFARCT BORDERLINE PROLONGED QT INTERVAL : Confirmed by: Annita Coker MD 24-Apr-2020 21:52:07
[2020-04-24] MEDS ORDERED: HYDRALAZINE HCL 10 MG TABLET PO SCH (22:00)
[2020-04-24] MEDS ORDERED: CARVEDILOL 12.5 MG TABLET PO SCH (22:00)
[2020-04-24] MEDS ORDERED: ATORVASTATIN CALCIUM 40 MG TABLET PO SCH (22:00)
[2020-04-24] MEDS ORDERED: BUPROPION HCL 75 MG TABLET PO SCH (22:00)
[2020-04-24] MEDS ORDERED: DOXAZOSIN MESYLATE 4 MG TABLET PO SCH (22:00)
[2020-04-24] MEDS ORDERED: WARFARIN SODIUM 5 MG TABLET PO SCH (22:00)
[2020-04-25] MEDS ORDERED: GABAPENTIN 300 MG CAPSULE PO SCH (10:00)
[2020-04-25] MEDS ORDERED: NIFEDIPINE 30 MG TAB.ER.24 PO SCH (10:00)
[2020-04-25] MEDS ORDERED: ISOSORBIDE MONONITRATE 60 MG TAB.ER.24H PO SCH (10:00)
[2020-04-25] MEDS ORDERED: WARFARIN SODIUM 4 MG TABLET PO SCH (22:00)
== END 2020-04-24 19:26 | disposition short-term general hospital (02) | DRG 304 ==
LOC: ER 06:38 → EH 11:28 → 3N 12:26
PROVIDERS: ADMIT Hospitalist; ATTEND Hospitalist
PROC: 5A1D70Z Performance of Urinary Filtration, Intermittent, Less than 6 Hours Per Day (ICD-10-PCS; principal; 2020-04-24)
PROC: 5A09357 Assistance with Respiratory Ventilation, Less than 24 Consecutive Hours, Continuous Positive Airway Pressure (ICD-10-PCS; 2020-04-24)
DX: I16.1 Hypertensive emergency (principal); I50.43 Acute on chronic combined systolic (congestive) and diastolic (congestive) heart failure; N18.6 End stage renal disease; J96.01 Acute respiratory failure with hypoxia; I13.2 Hypertensive heart and chronic kidney disease with heart failure and with stage 5 chronic kidney disease, or end stage renal disease; Z99.2 Dependence on renal dialysis; R79.89 Other specified abnormal findings of blood chemistry; Z21 Asymptomatic human immunodeficiency virus [HIV] infection status; E11.51 Type 2 diabetes mellitus with diabetic peripheral angiopathy without gangrene; E11.22 Type 2 diabetes mellitus with diabetic chronic kidney disease; E78.5 Hyperlipidemia, unspecified; I25.10 Atherosclerotic heart disease of native coronary artery without angina pectoris; K21.9 Gastro-esophageal reflux disease without esophagitis; M19.90 Unspecified osteoarthritis, unspecified site; E11.65 Type 2 diabetes mellitus with hyperglycemia; F32.9 Major depressive disorder, single episode, unspecified; F17.200 Nicotine dependence, unspecified, uncomplicated; F14.90 Cocaine use, unspecified, uncomplicated; Z91.14 Patient's other noncompliance with medication regimen; Z89.612 Acquired absence of left leg above knee; Z86.711 Personal history of pulmonary embolism; Z86.718 Personal history of other venous thrombosis and embolism; Z89.611 Acquired absence of right leg above knee; I25.2 Old myocardial infarction; Z20.828 Contact with and (suspected) exposure to other viral communicable diseases; Z82.3 Family history of stroke; Z79.4 Long term (current) use of insulin; Z83.3 Family history of diabetes mellitus; Z82.49 Family history of ischemic heart disease and other diseases of the circulatory system; Z79.01 Long term (current) use of anticoagulants; Z79.899 Other long term (current) drug therapy; Z88.8 Allergy status to other drugs, medicaments and biological substances
CPT/HCPCS: 36415; 71045; 80053; 82550; 82803; 82962; 83605; 83880; 84484; 85025; 85610; 85730; 87040; 87635; 93005; 93010; 94640; 96365; 96366; 96375; 99285; C9803; J0360; J2270; J2405; J2930; J3490; J7613

== ENCOUNTER 2020-04-30 04:24 | Emergency (ER) | payer MEDICAID, MEDICARE ==
[2020-04-30 05:10] LABS: ABSOLUTE BASOPHILS # (AUTO) 0.1 10^3/uL (0.0-0.2); ABSOLUTE LYMPHOCYTES (AUTO) 3.1 10^3/uL (0.5-4.7); ABSOLUTE MONOCYTES (AUTO) 1.2 10^3/uL (0.1-1.4); ABSOLUTE NEUT (AUTO) 5.8 10^3/uL (1.7-8.2); EOSINOPHILS % (AUTO) 0.3 % (0-6); LYMPHOCYTES % (AUTO) 30.5 % (13-45); MEAN CORPUSCULAR HEMOGLOBIN 33.6 pg (27.0-33.4); MEAN CORPUSCULAR VOLUME 96 fl (80-97); MONOCYTES % (AUTO) 11.4 % (3-13); PLATELET COUNT 256 10^3/uL (150-450); RED BLOOD COUNT 3.85 10^6/uL (4.35-5.55); RED CELL DISTRIBUTION WIDTH 14.7 % (11.5-14.0); SEGMENTED NEUTROPHILS % (AUTO) 56.8 % (42-78); TOTAL CELLS COUNTED % (AUTO) 100 %; WHITE BLOOD COUNT 10.3 10^3/uL (4.0-10.5)
[2020-04-30 05:29] LABS: ALBUMIN 4.2 g/dL (3.5-5.0); ALKALINE PHOSPHATASE 61 U/L (38-126); ASPARTATE AMINO TRANSFERASE 18 U/L (17-59); BILIRUBIN,DIRECT 0.5 mg/dL (0.0-0.4); BILIRUBIN,TOTAL 0.5 mg/dL (0.2-1.3); BLOOD UREA NITROGEN 99 mg/dL (7-20); CALCIUM 9.7 mg/dL (8.4-10.2); CARBON DIOXIDE 22 mmol/L (22-30); GLUCOSE 97 mg/dL (75-110); POTASSIUM 5.9 mmol/L (3.6-5.0); TOTAL PROTEIN 6.9 g/dL (6.3-8.2)
--- NOTE | 2020-04-30 05:42 | ER Document Report ---
ED Medical Screen (RME) - General Chief Complaint: Shortness Of Breath Stated Complaint: SHORTNESS OF BREATH/HIGH BLOOD PRESSURE/HEADACHE Time Seen by Provider: 04/30/20 05:10 Primary Care Provider: LUIS CROW MD [Primary Care Provider] - Follow up as needed TRAVEL OUTSIDE OF THE [place] IN LAST 30 DAYS: No - HPI Notes: 04/30/20 05:39 This is a 64-year-old male patient with history of hemodialysis presenting for shortness of breath and headache. Patient is well-known to this emergency department. Patient states he is compliant with dialysis and his last dialysis was on Friday. Patient states he woke up around 2 AM with shortness of breath. Patient states his blood pressure is also elevated and is complaining of a headache. Physical exam: Patient is alert and oriented x3 patient has some rhonchi at the bases of his lungs, heart has regular rate and rhythm abdomen soft nontender nondistended. Patient has a left AKA and a right BKA patient appears to be in no acute distress at this time. This is a rapid medical evaluation. Further work-up will be undertaken by ED provider. - Related Data Allergies/Adverse Reactions: calcitriol Allergy (Verified 04/24/20 08:42) itching Past Medical History - Social History Family history: Reviewed & Not Pertinent - Past Medical History Cardiac Medical History: Reports: Hx Congestive Heart Failure - EF is 25-30% in 01/2020, + diastolic dysfunction, Hx Coronary Artery Disease, Hx DVT, Hx Heart Attack, Hx Hypercholesterolemia, Hx Hypertension, Hx Peripheral Vascular Disease, Hx Pulmonary Embolism Denies: Hx Atrial Fibrillation Pulmonary Medical History: Reports: Hx Bronchitis, Hx COPD, Hx Pneumonia, Hx Respiratory Failure Denies: Hx Asthma, Hx Sleep Apnea Neurological Medical History: Denies: Hx Migraine, Hx Seizures Endocrine Medical History: Reports: Hx Diabetes Mellitus Type 2 - insulin dependent. Denies: Hx Diabetes Mellitus Type 1, Hx Hyperthyroidism, Hx Hypothyroidism Renal/ Medical History: Reports: Hx End Stage Renal Disease - Dialysis MWF with Dr. Pablo Lowe, Hx Hemodialysis, Hx Renal Insufficiency. Denies: Hx Peritoneal Dialysis GI Medical History: Reports: Hx Gastroesophageal Reflux Disease. Denies: Hx Cirrhosis, Hx Crohn's Disease, Hx Hepatitis, Hx Ulcerative Colitis Musculoskeltal Medical History: Reports Hx Arthritis, Denies Hx Fibromyalgia, 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 bilat AKA, Reports Hx Musculoskeletal Trauma Skin Medical History: Denies Hx Eczema, Denies Hx Psoriasis Psychiatric Medical History: Reports: Hx Depression Traumatic Medical History: Denies: Hx Traumatic Brain Injury Infectious Medical History: Reports: Hx HIV - noncompliant with meds. Denies: Hx Hepatitis Past Surgical History: Reports: Hx Orthopedic Surgery - bilateral amputation, R BKA, L AKA, Hx Vascular Surgery - IVC filter, thrombectomy 05/18/2018 left arm, Other - Tunnel graft right axillary femoral bypass, dialysis fistula LUE - Immunizations Immunizations up to date: Yes Hx Diphtheria, Pertussis, Tetanus Vaccination: Yes Physical Exam - Vital signs Vitals: Pulse Ox 100 04/30/20 04:27 Course - Vital Signs Vital signs: Temp Pulse Resp BP Pulse Ox 97.4 F 98 22 H 202/97 H 97 04/30/20 04:33 04/30/20 04:33 04/30/20 04:33 04/30/20 04:33 04/30/20 04:41 - Laboratory Result Diagrams: 04/30/20 04:51 04/30/20 04:51 Laboratory results interpreted by me: 04/30/20 04:51 RBC 3.85 L Hgb 13.0 L Hct 37.0 L MCH 33.6 H RDW 14.7 H Doctor's Discharge - Discharge Referrals: LUIS CROW MD [Primary Care Provider] - Follow up as needed
--- NOTE | 2020-04-30 05:47 | RADIOLOGY REPORT (SQ) ---
COMPLETED DATE/TME: 04/30/2020 04:32 EXAM: Single view chest. INDICATION: Shortness of breath. COMPARISON: Chest x-ray: 04/24/2020. FINDINGS: Cardiac silhouette: Mildly enlarged Zee: Unremarkable. Lobar consolidation: None. Pleural effusion: None. Pneumothorax: None. Other: Right basilar subsegmental atelectasis. Surgical clips along the right subclavian region.. Bones: Unremarkable. Other: None. IMPRESSION: 1. No acute cardiopulmonary process.
[2020-04-30 06:00] LABS: CHLORIDE 90 mmol/L (98-107)
[2020-04-30 06:05] LABS: ANION GAP 22 (5-19)
--- NOTE | 2020-04-30 06:20 | ER Document Report ---
ED General - General Chief Complaint: Shortness Of Breath Stated Complaint: SHORTNESS OF BREATH/HIGH BLOOD PRESSURE/HEADACHE Time Seen by Provider: 04/30/20 05:10 Primary Care Provider: LUIS CROW MD [Primary Care Provider] - Follow up as needed Notes: 64-year-old man presenting to the emergency department history of renal failure and hemodialysis recent hospitalization with uncontrolled hypertension and hist ory of cardiomyopathy with respiratory failure, acute on chronic CHF, positive HIV, controlled medical status. He was on the couch this morning when he became very short of breath. He was dialyzed at [facility] Friday, Friday and of last week. (May 02, , 2019 TRAVEL OUTSIDE OF THE [place] IN LAST 30 DAYS: No - Related Data Allergies/Adverse Reactions: calcitriol Allergy (Verified 04/24/20 08:42) itching Past Medical History - Social History Smoking Status: Current Every Day Smoker Family History: Reviewed & Not Pertinent, CAD, CVA, DM, Hyperlipidemia, Hypertension, Malignancy - Past Medical History Cardiac Medical History: Reports: Hx Congestive Heart Failure - EF is 25-30% in 01/2020, + diastolic dysfunction, Hx Coronary Artery Disease, Hx DVT, Hx Heart Attack, Hx Hypercholesterolemia, Hx Hypertension, Hx Peripheral Vascular Disease, Hx Pulmonary Embolism Denies: Hx Atrial Fibrillation Pulmonary Medical History: Reports: Hx Bronchitis, Hx COPD, Hx Pneumonia, Hx Respiratory Failure Denies: Hx Asthma, Hx Sleep Apnea Neurological Medical History: Denies: Hx Migraine, Hx Seizures Endocrine Medical History: Reports: Hx Diabetes Mellitus Type 2 - insulin dependent. Denies: Hx Diabetes Mellitus Type 1, Hx Hyperthyroidism, Hx Hypothyroidism Renal/ Medical History: Reports: Hx End Stage Renal Disease - Dialysis MWF with Dr. Pablo Lowe, Hx Hemodialysis, Hx Renal Insufficiency. Denies: Hx Peritoneal Dialysis GI Medical History: Reports: Hx Gastroesophageal Reflux Disease. Denies: Hx Cirrhosis, Hx Crohn's Disease, Hx Hepatitis, Hx Ulcerative Colitis Musculoskeletal Medical History: Reports Hx Arthritis, Denies Hx Fibromyalgia, 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 bilat AKA, Reports Hx Musculoskeletal Trauma Skin Medical History: Denies Hx Eczema, Denies Hx Psoriasis Psychiatric Medical History: Reports: Hx Depression Traumatic Medical History: Denies: Hx Traumatic Brain Injury Infectious Medical History: Reports: Hx HIV - noncompliant with meds. Denies: Hx Hepatitis Past Surgical History: Reports: Hx Orthopedic Surgery - bilateral amputation, R BKA, L AKA, Hx Vascular Surgery - IVC filter, thrombectomy 05/18/2018 left arm, Other - Tunnel graft right axillary femoral bypass, dialysis fistula LUE - Immunizations Immunizations up to date: Yes Hx Diphtheria, Pertussis, Tetanus Vaccination: Yes Hx Pneumococcal Vaccination: 07/21/10 Review of Systems - Review of Systems Notes: Constitutional: Negative for fever. HENT: Negative for sore throat. Eyes: Negative for visual changes. Cardiovascular: Negative for chest pain. Respiratory: + Dyspnea, + shortness of breath Gastrointestinal: Negative for abdominal pain, vomiting or diarrhea. Genitourinary: Negative for dysuria. Musculoskeletal: Negative for back pain. Skin: Negative for rash. Neurological: Negative for headaches, weakness or numbness. 10 point ROS negative except as marked above and in HPI. Physical Exam - Vital signs Vitals: Pulse Ox 100 04/30/20 04:27 - Notes Notes: PHYSICAL EXAMINATION: Physical Exam: General: Chronically ill 64-year-old man in respiratory distress HEENT: NC/AT, pupils equal round and reactive to light, MM moist,nares clear, oropharynx clear, airway patent Neck: supple, no adenopathy, no masses. Good range of motion Lungs: clear, no wheezing, no rales no rhonchi CVS: Tachycardia, rate and rhythm no murmur gallop or rub Abdomen: Soft, active, nontender, no masses, no hepatosplenomegaly Ext: Bilateral BKA, AV shunt left arm with good thrill Neuro: Alert and responsive, no focal findings. Skin: Intact no open lesions, no rash Course - Re-evaluation Re-evalutation: 04/30/20 10:11 Continued to complain of respiratory difficulty and increasing labored breathing. Apparently was placed on BiPAP, began to have an increasing respiratory difficulty and requesting to be taken off of the BiPAP. The BiPAP was discontinued patient satting at 100% on room air and very anxious and tachypneic. He was given 0.5 mg of lorazepam with a marked improvement in his symptoms. He has been watched and monitored in the ED closely with no change in his respiratory status. Patient has a elevated troponin, however the value is much lower than his previous ones and very compatible with renal disease. Presently he is feeling better, however states that he needs something for pain. He has been taking Percocet for pain for a chronic pain medication and has been out of those medications since returning home from [facility]. States he will see his doctor on Friday regarding continuing his medications. In retrospect, some of the symptoms may represent early withdrawal from opiate. He is given a IV dose of morphine in the emergency department. Will be discharged home with 6 tablets of Percocet to bridge him until he can see his primary doctor. - Vital Signs Vital signs: Temp Pulse Resp BP Pulse Ox 98.2 F 98 14 192/92 H 95 04/30/20 10:38 04/30/20 04:33 04/30/20 10:01 04/30/20 10:01 04/30/20 10:01 - Laboratory Result Diagrams: 04/30/20 04:51 04/30/20 04:51 Laboratory results interpreted by me: 04/30/20 04/30/20 04/30/20 04:51 04:51 04:51 RBC 3.85 L Hgb 13.0 L Hct 37.0 L MCH 33.6 H RDW 14.7 H Sodium 133.8 L Potassium 5.9 H Chloride 90 L Anion Gap 22 H BUN 99 H Creatinine 11.82 H Est GFR ( Amer) 5 L Est GFR (MDRD) Non-Af 4 L Direct Bilirubin 0.5 H NT-Pro-B Natriuret Pep 90126 H Urine Protein Urine Glucose (UA) Urine Blood 04/30/20 09:10 RBC Hgb Hct MCH RDW Sodium Potassium Chloride Anion Gap BUN Creatinine Est GFR ( Amer) Est GFR (MDRD) Non-Af Direct Bilirubin NT-Pro-B Natriuret Pep Urine Protein 100 H Urine Glucose (UA) 150 H Urine Blood SMALL H - Diagnostic Test Radiology reviewed: Image reviewed, Reports reviewed - EKG Interpretation by Me Rate: Normal - EKG interpreted by Dr. Ramos: Normal sinus rhythm, rate 96, ER interval 196, QT interval 377, probable left atrial abnormality, left anterior fascicular block, LVH, no acute ST or T wave abnormalities, no ischemic findings, when compared to EKG dated 04/24/2020 sinus tachycardia has now resolved. Discharge - Discharge Clinical Impression: Shortness of breath, Chronic kidney disease requiring chronic dialysis, Un controlled hypertension, Anxiety, Chronic prescription opiate use Chronic pain Qualifiers: Chronic pain type: chronic pain syndrome Qualified Code(s): G89.4 - Chronic pain syndrome Condition: Good Disposition: HOME, SELF-CARE Instructions: Anxiety ([facility]), Chronic Pain Control ([facility]), High Blood Pressure ([facility]) Additional Instructions: You are seen in the emergency department today with episode of shortness of breath and feeling like he could not breathe. Findings suggest that this was related to your emotional state and not a worsening condition related to your lungs or heart. Please continue your usual medications and please follow-up with dialysis tomorrow. You are being discharged with medications for pain. Contact your usual doctor regarding further management of the pain. Your symptoms are worsening or if you have other concerns you may return to the emergency department for further evaluation and treatment. HOME CARE INSTRUCTIONS & INFORMATION: Thank you for choosing us for your medical needs. We hope you're satisfied with the care you received. After you leave, you must properly care for your problem and, at the same time, observe its progress. Any condition can change. Some illnesses can change rapidly over hours or days. If your condition worsens, return to the Emergency Department or see your physician promptly. ABOUT YOUR X-RAYS AND EKG'S: If you had an EKG or X-rays taken, they have been read by the Emergency Physician. The X-rays and EKG's will also be read by a Radiologist or Light Fixture Servicer within 24 hours. If discrepancies are noted, you will be notified by telephone. Please be certain the ED has a correct telephone number & address where you can be reached. Also, realize that some fractures or abnormalities do not show up on initial X-rays. If your symptoms continue, see your physician. ABOUT YOUR LABORATORY TEST: If you had laboratory tests, the results have been reviewed by the Emergency Physician. Some test results (for example cultures) may not be available for several days. You will be contacted if any test result shows you need additional treatment. Please be certain the ED has a correct telephone number and address where you can be reached. ABOUT YOUR MEDICATIONS: You will receive instructions on how to take your medicine on the prescription label you receive. Additional information may be provided by the Pharmacy. If you have questions afterwards, call the ED for clarification or further instructions. Some prescribed medications may cause drowsiness. Do not perform tasks such as driving a car or operating machinery without consulting your Pharmacist. If you feel you need a refill of pain medication, your condition will need re-evaluation. Please do not call for a refill of any medication. ABOUT YOUR SIGNATURE: Signature of this document acknowledges to followin. Understanding that you received emergency treatment and that you may be released before al medical problems are known or treated. Please be certain the ED has a correct phone number & address where you can be reached. 2. Acknowledgement that you will arrange for follow-up care as recommended. 3. Authorization for the Emergency Physician to provide information to your follow-up Physician in order to maximize your care. AT ANY TIME, IF YOUR SYMPTOMS CHANGE SIGNIFICANTLY OR WORSEN OR YOU DEVELOP NEW SYMPTOMS, RETURN TO THE EMERGENCY DEPARTMENT IMMEDIATELY FOR RE-EVALUATION. OUR GOAL IS TO PROVIDE EXCELLENT MEDICAL CARE! WE HOPE THAT WE HAVE MET YOUR EXPECTATIONS DURING YOUR EMERGENCY DEPARTMENT VISIT AND THAT YOU FEEL YOU HAVE RECEIVED EXCELLENT CARE! Referrals: LUIS CROW MD [Primary Care Provider] - Follow up as needed
[2020-04-30] MEDS ORDERED: HYDRALAZINE HCL INJ/PF 20 MG/1 ML SDV IV ONE (06:26)
[2020-04-30] MEDS ORDERED: MORPHINE SULFATE 10 MG/ML INJ IV ONE ×2 (06:27→10:10)
[2020-04-30] MEDS ORDERED: ETOMIDATE INJ/PF 20 MG/10 ML SDV IV ONE (08:00)
[2020-04-30] MEDS ORDERED: LORAZEPAM INJ 2 MG/1 ML VIAL IV ONE (08:06)
--- NOTE | 2020-04-30 09:10 | EKG REPORT ---
SEVERITY:- ABNORMAL ECG - SINUS RHYTHM PROBABLE LEFT ATRIAL ABNORMALITY LEFT ANTERIOR FASCICULAR BLOCK LEFT VENTRICULAR HYPERTROPHY : Confirmed by: Annita Coker MD 30-Apr-2020 09:09:49
[2020-04-30 09:33] LABS: VENOUS BLOOD BASE EXCESS -2.1 mmol/L; VENOUS BLOOD HCO3 22.2 mmol/L (20-32); VENOUS BLOOD PCO2 36.5 mmHg (35-63); VENOUS BLOOD PH 7.4 (7.30-7.42)
[2020-04-30 09:45] LABS: APPEARANCE,URINE CLEAR; BILIRUBIN,URINE NEGATIVE (NEGATIVE); COLOR,URINE STRAW; GLUCOSE, URINE 150 mg/dL (NEGATIVE); KETONES,URINE NEGATIVE (NEGATIVE); LEUKOCYTE ESTERASE,URINE NEGATIVE (NEGATIVE); NITRITE,URINE NEGATIVE (NEGATIVE); PROTEIN,URINE 100 mg/dL (NEGATIVE); URINE SPECIFIC GRAVITY 1.009; UROBILINOGEN,URINE NEGATIVE mg/dL (<2.0)
[2020-04-30 10:01] LABS: URINE AMPHETAMINES SCREEN NEGATIVE; URINE BARBITURATES SCREEN NEGATIVE; URINE BENZODIAZEPINES SCREEN NEGATIVE; URINE COCAINE SCREEN NEGATIVE; URINE MARIJUANA (THC) SCREEN NEGATIVE; URINE METHADONE SCREEN NEGATIVE; URINE PHENCYCLIDINE SCREEN NEGATIVE
[2020-04-30 10:27] VITALS: BP 192/92
[2020-04-30] MEDS ORDERED: HYDROCODONE/ACETAMINOPHEN 5-325 MG (6 TAB/ER DISP) PO PRN (10:28)
== END 2020-04-30 10:38 | disposition home or self-care (01) ==
LOC: ER 04:24
DX: J44.9 Chronic obstructive pulmonary disease, unspecified (principal); I13.2 Hypertensive heart and chronic kidney disease with heart failure and with stage 5 chronic kidney disease, or end stage renal disease; E11.22 Type 2 diabetes mellitus with diabetic chronic kidney disease; I43 Cardiomyopathy in diseases classified elsewhere; N18.6 End stage renal disease; I50.32 Chronic diastolic (congestive) heart failure; Z99.2 Dependence on renal dialysis; F41.9 Anxiety disorder, unspecified; G89.4 Chronic pain syndrome; I44.4 Left anterior fascicular block; R06.02 Shortness of breath; F17.200 Nicotine dependence, unspecified, uncomplicated; I25.10 Atherosclerotic heart disease of native coronary artery without angina pectoris; I25.2 Old myocardial infarction; E11.51 Type 2 diabetes mellitus with diabetic peripheral angiopathy without gangrene; R00.0 Tachycardia, unspecified; Z86.711 Personal history of pulmonary embolism; Z21 Asymptomatic human immunodeficiency virus [HIV] infection status; Z87.01 Personal history of pneumonia (recurrent); Z88.8 Allergy status to other drugs, medicaments and biological substances
CPT/HCPCS: 93005; 96376; 99285; 96374; 96375; 36415; 80307 ×2; 85025; 80053; 81001; 84484; 82803; 83880; 71045; 93010; J0360; J2270; J2060

== ENCOUNTER 2020-05-05 19:10 | Emergency (ER) | payer MEDICARE, MEDICAID ==
[2020-05-05] MEDS ORDERED: MORPHINE SULFATE 10 MG/ML INJ IV ONE (19:56)
--- NOTE | 2020-05-05 19:59 | ER Document Report ---
ED Medical Screen (RME) - General Chief Complaint: Chest Pressure Stated Complaint: SHORTNESS OF BREATH Time Seen by Provider: 05/05/20 19:41 Notes: Patient is a 64-year-old male who presents emergency department with chest pressure and chest pain that started around 1400 today. 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 Patient states that he attempted to give himself some breathing treatments, but they did not help. Patient is a dialysis patient. Dr. Lowe is his credit officer. Patient is a Friday dialysis patient and he missed today, but is scheduled tomorrow. Patient still makes urine. Patient also reports that he has a "splitting headache." He is currently on Coumadin. CT of the head ordered. Labs, chest x-ray, and further work-up ordered. Patient will be given morphine for pain. Exam: Crackles noted in bases of lungs. I have greeted and performed a rapid initial assessment of this patient. A comprehensive ED assessment and evaluation of the patient, analysis of test results and completion of medical decision making process will be conducted by an additional ED providers. TRAVEL OUTSIDE OF THE [place] IN LAST 30 DAYS: No - Related Data Allergies/Adverse Reactions: calcitriol Allergy (Verified 05/05/20 19:26) itching Past Medical History - Social History Family history: Reviewed & Not Pertinent - Past Medical History Cardiac Medical History: Reports: Hx Congestive Heart Failure - EF is 25-30% in 01/2020, + diastolic dysfunction, Hx Coronary Artery Disease, Hx DVT, Hx Heart Attack, Hx Hypercholesterolemia, Hx Hypertension, Hx Peripheral Vascular Disease, Hx Pulmonary Embolism Denies: Hx Atrial Fibrillation Pulmonary Medical History: Reports: Hx Bronchitis, Hx COPD, Hx Pneumonia, Hx Respiratory Failure Denies: Hx Asthma, Hx Sleep Apnea Neurological Medical History: Denies: Hx Migraine, Hx Seizures Endocrine Medical History: Reports: Hx Diabetes Mellitus Type 2 - insulin dependent. Denies: Hx Diabetes Mellitus Type 1, Hx Hyperthyroidism, Hx Hypothyroidism Renal/ Medical History: Reports: Hx End Stage Renal Disease - Dialysis MWF with Dr. Pablo Lowe, Hx Hemodialysis, Hx Renal Insufficiency. Denies: Hx Peritoneal Dialysis GI Medical History: Reports: Hx Gastroesophageal Reflux Disease. Denies: Hx Cirrhosis, Hx Crohn's Disease, Hx Hepatitis, Hx Ulcerative Colitis Musculoskeltal Medical History: Reports Hx Arthritis, Denies Hx Fibromyalgia, 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 bilat AKA, Reports Hx Musculoskeletal Trauma Skin Medical History: Denies Hx Eczema, Denies Hx Psoriasis Psychiatric Medical History: Reports: Hx Depression Traumatic Medical History: Denies: Hx Traumatic Brain Injury Infectious Medical History: Reports: Hx HIV - noncompliant with meds. Denies: Hx Hepatitis Past Surgical History: Reports: Hx Orthopedic Surgery - bilateral amputation, R BKA, L AKA, Hx Vascular Surgery - IVC filter, thrombectomy 05/18/2018 left arm, Other - Tunnel graft right axillary femoral bypass, dialysis fistula LUE - Immunizations Immunizations up to date: Yes Hx Diphtheria, Pertussis, Tetanus Vaccination: Yes Physical Exam - Vital signs Vitals: Resp BP Pulse Ox 25 H 188/111 H 96 05/05/20 19:16 05/05/20 19:16 05/05/20 19:16 Course - Vital Signs Vital signs: Temp Pulse Resp BP Pulse Ox 97.7 F 25 H 188/111 H 96 05/05/20 19:55 05/05/20 19:16 05/05/20 19:16 05/05/20 19:16
[2020-05-05 20:18] LABS: ABSOLUTE BASOPHILS # (AUTO) 0.1 10^3/uL (0.0-0.2); ABSOLUTE EOSINOPHILS # (AUTO) 0.2 10^3/uL (0.0-0.6); ABSOLUTE LYMPHOCYTES (AUTO) 1.9 10^3/uL (0.5-4.7); ABSOLUTE MONOCYTES (AUTO) 0.9 10^3/uL (0.1-1.4); BASOPHILS % (AUTO) 0.8 % (0-2); EOSINOPHILS % (AUTO) 2.6 % (0-6); HEMATOCRIT 34.8 % (37.9-51.0); HEMOGLOBIN 11.8 g/dL (13.5-17.0); LYMPHOCYTES % (AUTO) 20.7 % (13-45); MEAN CORPUSCULAR HGB CONC 33.9 g/dL (32.0-36.0); MEAN CORPUSCULAR VOLUME 97 fl (80-97); PLATELET COUNT 247 10^3/uL (150-450); RED BLOOD COUNT 3.57 10^6/uL (4.35-5.55); RED CELL DISTRIBUTION WIDTH 15.2 % (11.5-14.0); SEGMENTED NEUTROPHILS % (AUTO) 65.9 % (42-78); TOTAL CELLS COUNTED % (AUTO) 100 %; WHITE BLOOD COUNT 9.1 10^3/uL (4.0-10.5)
[2020-05-05 20:34] LABS: ALBUMIN 3.9 g/dL (3.5-5.0); ALKALINE PHOSPHATASE 53 U/L (38-126); ANION GAP 15 (5-19); ASPARTATE AMINO TRANSFERASE 25 U/L (17-59); BILIRUBIN,DIRECT 0.7 mg/dL (0.0-0.4); BILIRUBIN,TOTAL 0.7 mg/dL (0.2-1.3); BLOOD UREA NITROGEN 72 mg/dL (7-20); CALCIUM 8.9 mg/dL (8.4-10.2); CARBON DIOXIDE 22 mmol/L (22-30); CHLORIDE 96 mmol/L (98-107); CREATINE KINASE 125 U/L (55-170); GLUCOSE 90 mg/dL (75-110); POTASSIUM 5.9 mmol/L (3.6-5.0); TOTAL PROTEIN 6.5 g/dL (6.3-8.2)
[2020-05-05 20:46] LABS: CREATINE KINASE MB 3.73 ng/mL (<4.55)
[2020-05-05 20:49] LABS: TROPONIN I 0.232 ng/mL
--- NOTE | 2020-05-05 20:58 | RADIOLOGY REPORT (SQ) ---
EXAM DESCRIPTION: X-ray, single view of the chest CLINICAL HISTORY: 64 years Male, chest pain; shortness of breath COMPARISON: Single view of the chest April 30, 2020. FINDINGS: Exam is somewhat limited secondary to overpenetration. Lungs: Mild upper lobe vessel distention and recruitment is seen and there is engorgement of central pulmonary vessels. Airways thickening. There is mild infrahilar volume loss. Overall the appearance is similar to the previous exam. No pneumothorax. No pleural effusion. Mediastinum: Heart size is enlarged and the mediastinum is mildly widened. Bones: Osseous structures are stable IMPRESSION: Enlargement the cardiac silhouette with mild changes of increased intravascular volume. The appearance is similar to the previous exam.
--- NOTE | 2020-05-05 21:16 | RADIOLOGY REPORT (SQ) ---
EXAM DESCRIPTION: CT HEAD WITHOUT IV CONTRAST COMPLETED DATE/TME: 05/05/2020 19:53 CLINICAL HISTORY: 64 years, Male, headache on coumadin COMPARISON: March 11, 2018 TECHNIQUE: Noncontrast images of the brain were obtained. Images stored on PACS. All CT scanners at this facility use dose modulation, iterative reconstruction, and/or weight based dosing when appropriate to reduce radiation dose to as low as reasonably achievable (ALARA). [facility]: Dose Right [facility]: CareDose [facility]: Dose Right [facility]: Teradose 4D [facility]: [employer] LIMITATIONS: None. FINDINGS: There is no acute intracranial hemorrhage, abnormal mass effect, or major vascular territorial infarction. There is mild low-attenuation again noted within the deep white matter, likely on the basis of chronic small vessel ischemic disease. There is no hydrocephalus. Calvarium appears intact. The visualized portions of the paranasal sinuses and mastoid air cells are clear. IMPRESSION: No acute abnormality as above. TECHNICAL DOCUMENTATION: Quality ID # [id number]: Final reports with documentation of one or more dose reduction techniques (e.g., Automated exposure control, adjustment of the mA and/or kV according to patient size, use of iterative reconstruction technique) copyright 2010 [employer]- All Rights Reserved
[2020-05-05] MEDS ORDERED: ALBUTEROL SULFATE 0.083% NEB 2.5 MG/3 ML AMPUL NEB ONE (22:17)
[2020-05-05] MEDS ORDERED: IPRATROPIUM/ALBUTEROL 0.5-2.5 MG/3 ML AMPUL NEB ONE (22:34)
[2020-05-05] MEDS ORDERED: FUROSEMIDE INJ/PF 20 MG/2 ML SDV IV ONE (22:54)
[2020-05-05] MEDS ORDERED: SODIUM POLYSTYRENE SULFONATE 15 GM/60 ML PO ONE (22:54)
[2020-05-05] MEDS ORDERED: LORAZEPAM INJ 2 MG/1 ML VIAL IV ONE (23:09)
--- NOTE | 2020-05-05 23:13 | ER Document Report ---
ED General - General Chief Complaint: Chest Pressure Stated Complaint: SHORTNESS OF BREATH Time Seen by Provider: 05/05/20 19:41 TRAVEL OUTSIDE OF THE [place] IN LAST 30 DAYS: No - HPI Context: This is a 64-year-old male with a history of of COPD, end-stage renal disease, on dialysis Friday and Friday presenting complaining of chest pressure, and chest pain as well as anxiety and shortness of breath that started around 1400 hrs. today. Patient was supposed to have dialysis today but states he missed his dialysis appointment because he had an appointment with his it portfolio manager today. Patient states that he tried some breathing treatments when he got home but they did not help his symptoms. Patient's horse show manager is Dr. Lowe. Patient states that while he missed his dialysis appointment today, he is scheduled tomorrow. Patient is also complaining of a headache. Patient is on Coumadin. Patient has a history of paroxysmal A. fib. Patient denies fever, chills, loss of sense of taste or loss of sense of smell, history of Covid infection, known exposure to Covid positive persons or persons under investigation for COVID-19. Patient rates his pain as a 5 out of 5 and localizes it to his mid chest. Patient describes it as sharp. Patient states symptoms are worsened with exertion and deep breaths. Patient states nothing alleviates his symptoms. Associated symptoms: Other - See HPI Exacerbated by: Other - See HPI Relieved by: Other - See HPI Similar symptoms previously: Yes Recently seen / treated by doctor: Yes - Related Data Allergies/Adverse Reactions: calcitriol Allergy (Verified 05/05/20 19:26) itching Past Medical History - General Information source: Patient - Social History Smoking Status: Former Smoker - Patient states he quit smoking 2 weeks ago Frequency of alcohol use: None Drug Abuse: None - Patient has a medical history of cocaine abuse in the past Family History: Reviewed & Not Pertinent, CAD, CVA, DM, Hyperlipidemia, Hypertension, Malignancy Patient has homicidal ideation: No - Past Medical History Cardiac Medical History: Reports: Hx Congestive Heart Failure - EF is 25-30% in 01/2020, + diastolic dysfunction, Hx Coronary Artery Disease, Hx DVT, Hx Heart Attack, Hx Hypercholesterolemia, Hx Hypertension, Hx Peripheral Vascular Di sease, Hx Pulmonary Embolism Denies: Hx Atrial Fibrillation Pulmonary Medical History: Reports: Hx Bronchitis, Hx COPD, Hx Pneumonia, Hx Respiratory Failure Denies: Hx Asthma, Hx Sleep Apnea Neurological Medical History: Denies: Hx Migraine, Hx Seizures Endocrine Medical History: Reports: Hx Diabetes Mellitus Type 2 - insulin dependent. Denies: Hx Diabetes Mellitus Type 1, Hx Hyperthyroidism, Hx Hypothyroidism Renal/ Medical History: Reports: Hx End Stage Renal Disease - Dialysis MWF with Dr. Pablo Lowe, Hx Hemodialysis, Hx Renal Insufficiency. Denies: Hx Peritoneal Dialysis GI Medical History: Reports: Hx Gastroesophageal Reflux Disease. Denies: Hx Cirrhosis, Hx Crohn's Disease, Hx Hepatitis, Hx Ulcerative Colitis Musculoskeletal Medical History: Reports Hx Arthritis, Denies Hx Fibromyalgia, 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 bilat AKA, Reports Hx Musculoskeletal Trauma Skin Medical History: Denies Hx Eczema, Denies Hx Psoriasis Psychiatric Medical History: Reports: Hx Depression Traumatic Medical History: Denies: Hx Traumatic Brain Injury Infectious Medical History: Reports: Hx HIV - noncompliant with meds. Denies: Hx Hepatitis Past Surgical History: Reports: Hx Orthopedic Surgery - bilateral amputation, R BKA, L AKA, Hx Vascular Surgery - IVC filter, thrombectomy 05/18/2018 left arm, Other - Tunnel graft right axillary femoral bypass, dialysis fistula LUE - Immunizations Immunizations up to date: Yes Hx Diphtheria, Pertussis, Tetanus Vaccination: Yes Hx Pneumococcal Vaccination: 07/21/10 Review of Systems - Review of Systems Constitutional: No symptoms reported EENT: No symptoms reported Cardiovascular: Chest pain Respiratory: Short of breath Gastrointestinal: No symptoms reported Genitourinary: No symptoms reported Male Genitourinary: No symptoms reported Musculoskeletal: No symptoms reported Skin: No symptoms reported Hematologic/Lymphatic: No symptoms reported Neurological/Psychological: Anxiety, Headaches -: Yes All other systems reviewed and negative Physical Exam - Vital signs Vitals: Resp BP Pulse Ox 25 H 188/111 H 96 05/05/20 19:16 05/05/20 19:16 05/05/20 19:16 - Notes Notes: CONSTITUTIONAL [Vital signs reviewed, Patient appears anxious, Alert and oriented X 3, Normal stature.] HEAD [Atraumatic, Normocephalic.] EYES [Eyes are normal to inspection, No discharge from eyes, Extraocular muscles intact, Sclera are normal, Conjunctiva are normal.] NECK [Normal ROM, No jugular venous distention, No meningeal signs, no carotid bruit.] RESPIRATORY CHEST [Chest is nontender, Breath sounds are diminished bilaterally, No respiratory distress.] CARDIOVASCULAR [RRR, No murmurs, Normal S1 S2, No rub, No gallop.] ABDOMEN [Abdomen is nontender, No pulsatile masses, No other masses, Bowel sounds normal, No distension, No peritoneal signs, No hernias.] BACK [There is no CVA Tenderness, There is no tenderness to palpation, Normal inspection.] UPPER EXTREMITY Upper extremity exam is significant for a left-sided AV shunt present in the patient's forearm it has a audible bruit and palpable thrill. LOWER EXTREMITY Lower extremity exam is significant for a left [id number]-mbd-lows amputation and a right below the knee amputation NEURO [No focal motor deficits, No focal sensory deficits, Speech normal.] SKIN [Skin is warm, Skin is dry, Skin is normal color.] PSYCHIATRIC [Anxious affect. ] Course - Re-evaluation Re-evalutation: 05/06/20 05:23 Results of ED MSE discussed with patient. All questions were answered prior to discharge. Emergency signs and symptoms, reasons to return to the emergency department discussed with patient. Patient is instructed to go directly to dialysis this morning at 6 AM. - Vital Signs Vital signs: Temp Pulse Resp BP Pulse Ox 97.7 F 24 H 188/111 H 98 05/05/20 19:55 05/06/20 02:54 05/05/20 19:16 05/06/20 02:54 - Laboratory Result Diagrams: 05/05/20 20:01 05/05/20 20:01 Laboratory results interpreted by me: 05/05/20 05/05/20 05/06/20 20:01 20:01 01:16 RBC 3.57 L Hgb 11.8 L Hct 34.8 L RDW 15.2 H Sodium 133.1 L Potassium 5.9 H Chloride 96 L BUN 72 H Creatinine 11.31 H Est GFR ( Amer) 6 L Est GFR (MDRD) Non-Af 5 L Direct Bilirubin 0.7 H NT-Pro-B Natriuret Pep 23826 H - Diagnostic Test Radiology reviewed: Reports reviewed - EKG Interpretation by Me Additional EKG results interpreted by me: 05/05/20 23:23 EKG obtained on 05/05/2020 at 1919 hrs. was interpreted by this MD. Findings: Normal sinus rhythm, rate 96, left axis deviation was present, AL interval appears within normal limits, P waves preceding QRS complexes, QRS appears narrow, QTC is 476, there are no obvious patterns of ST segment elevation, depression or reciprocal changes seen to suggest acute myocardial ischemia or infarction. When compared to patient's prior EKG from 04/30/2020, there is no obvious acute changes and the overall gross morphology appears to be the same. Impression: Normal sinus rhythm with left axis deviation and nonspecific ST segments. 05/05/20 23:25 Discharge - Discharge Clinical Impression: Chest pain Qualifiers: Chest pain type: unspecified Qualified Code(s): R07.9 - Chest pain, unspecified Dyspnea Qualifiers: Dyspnea type: unspecified Qualified Code(s): R06.00 - Dyspnea, unspecified Condition: Stable Disposition: HOME, SELF-CARE Additional Instructions: Return to the Emergency Department without delay if any worse. Go directly to dialysis upon discharge. HOME CARE INSTRUCTIONS & INFORMATION: Thank you for choosing us for your medical needs. We hope you're satisfied with the care you received. After you leave, you must properly care for your problem and, at the same time, observe it s progress. Any condition can change. Some illnesses can change rapidly over hours or days. If your condition worsens, return to the Emergency Department or see your physician promptly. ABOUT YOUR X-RAYS AND EKG'S: If you had an EKG or X-rays taken, they have been read by the Emergency Physician. The X-rays and EKG's will also be read by a Radiologist or Awning Installer within 24 hours. If discrepancies are noted, you will be notified by telephone. Please be certain the ED has a correct telephone number & address where you can be reached. Also, realize that some fractures or abnormalities do not show up on initial X-rays. If your symptoms continue, see your physician. ABOUT YOUR LABORATORY TEST: If you had laboratory tests, the results have been reviewed by the Emergency Physician. Some test results (for example cultures) may not be available for several days. You will be contacted if any test result shows you need additional treatment. Please be certain the ED has a correct telephone number and address where you can be reached. ABOUT YOUR MEDICATIONS: You will receive instructions on how to take your medicine on the prescription label you receive. Additional information may be provided by the Pharmacy. If you have questions afterwards, call the ED for clarification or further instructions. Some prescribed medications may cause drowsiness. Do not perform tasks such as driving a car or operating machinery without consulting your Pharmacist. If you feel you need a refill of pain medication, your condition will need re-evaluation. Please do not call for a refill of any medication. ABOUT YOUR SIGNATURE: Signature of this document acknowledges to followin. Understanding that you received emergency treatment and that you may be released before al medical problems are known or treated. Please be certain the ED has a correct phone number & address where you can be reached. 2. Acknowledgement that you will arrange for follow-up care as recommended. 3. Authorization for the Emergency Physician to provide information to your follow-up Physician in order to maximize your care. AT ANY TIME, IF YOUR SYMPTOMS CHANGE SIGNIFICANTLY OR WORSEN OR YOU DEVELOP NEW SYMPTOMS, RETURN TO THE EMERGENCY DEPARTMENT IMMEDIATELY FOR RE-EVALUATION. OUR GOAL IS TO PROVIDE EXCELLENT MEDICAL CARE! WE HOPE THAT WE HAVE MET YOUR EXPECTATIONS DURING YOUR EMERGENCY DEPARTMENT VISIT AND THAT YOU FEEL YOU HAVE RECEIVED EXCELLENT CARE! Referrals: Celeste LOWE MD [ACTIVE STAFF] - Follow up as needed
[2020-05-06 02:24] LABS: TROPONIN I 0.233 ng/mL
[2020-05-06 05:44] VITALS: BP 159/109
--- NOTE | 2020-05-06 09:51 | EKG REPORT ---
SEVERITY:- ABNORMAL ECG - SINUS RHYTHM PROBABLE LEFT ATRIAL ABNORMALITY LEFT AXIS DEVIATION LEFT VENTRICULAR HYPERTROPHY BORDERLINE ST ELEVATION, ANTEROLATERAL LEADS BORDERLINE PROLONGED QT INTERVAL : Confirmed by: Beulah Storm 06-May-2020 09:50:31
== END 2020-05-06 06:10 | disposition home or self-care (01) ==
LOC: ER 19:10
DX: R07.89 Other chest pain (principal); I13.2 Hypertensive heart and chronic kidney disease with heart failure and with stage 5 chronic kidney disease, or end stage renal disease; I50.32 Chronic diastolic (congestive) heart failure; E11.22 Type 2 diabetes mellitus with diabetic chronic kidney disease; N18.6 End stage renal disease; Z99.2 Dependence on renal dialysis; Z91.15 Patient's noncompliance with renal dialysis; R51.9 Headache, unspecified; E11.51 Type 2 diabetes mellitus with diabetic peripheral angiopathy without gangrene; I25.10 Atherosclerotic heart disease of native coronary artery without angina pectoris; F41.9 Anxiety disorder, unspecified; J44.9 Chronic obstructive pulmonary disease, unspecified; R06.02 Shortness of breath; I48.0 Paroxysmal atrial fibrillation; Z79.01 Long term (current) use of anticoagulants; Z88.8 Allergy status to other drugs, medicaments and biological substances; Z87.891 Personal history of nicotine dependence; Z86.711 Personal history of pulmonary embolism; Z87.01 Personal history of pneumonia (recurrent); Z21 Asymptomatic human immunodeficiency virus [HIV] infection status
CPT/HCPCS: 93005; 99285; 96374; 96375; 36415; 82553; 82550; 85025; 80053; 84484; 83880; 71045; 70450; 93010; J1940; J2270; J2060; A9270

== ENCOUNTER 2020-05-29 19:09 | Emergency (ER) | payer MEDICARE, MEDICAID ==
[2020-05-29 20:09] LABS: ABSOLUTE EOSINOPHILS # (AUTO) 0.2 10^3/uL (0.0-0.6); ABSOLUTE LYMPHOCYTES (AUTO) 2.3 10^3/uL (0.5-4.7); ABSOLUTE MONOCYTES (AUTO) 0.8 10^3/uL (0.1-1.4); ABSOLUTE NEUT (AUTO) 2.9 10^3/uL (1.7-8.2); BASOPHILS % (AUTO) 0.6 % (0-2); EOSINOPHILS % (AUTO) 2.5 % (0-6); HEMATOCRIT 32.1 % (37.9-51.0); HEMOGLOBIN 10.9 g/dL (13.5-17.0); LYMPHOCYTES % (AUTO) 36.7 % (13-45); MEAN CORPUSCULAR HEMOGLOBIN 32.5 pg (27.0-33.4); MEAN CORPUSCULAR VOLUME 96 fl (80-97); MONOCYTES % (AUTO) 13.3 % (3-13); PLATELET COUNT 241 10^3/uL (150-450); RED BLOOD COUNT 3.36 10^6/uL (4.35-5.55); SEGMENTED NEUTROPHILS % (AUTO) 46.9 % (42-78); TOTAL CELLS COUNTED % (AUTO) 100 %; WHITE BLOOD COUNT 6.2 10^3/uL (4.0-10.5)
[2020-05-29 20:14] LABS: VENOUS BLOOD BASE EXCESS 4.5 mmol/L; VENOUS BLOOD HCO3 28.9 mmol/L (20-32); VENOUS BLOOD PCO2 41.7 mmHg (35-63); VENOUS BLOOD PH 7.46 (7.30-7.42)
[2020-05-29 20:20] LABS: ALBUMIN 4.1 g/dL (3.5-5.0); ALKALINE PHOSPHATASE 64 U/L (38-126); ANION GAP 12 (5-19); ASPARTATE AMINO TRANSFERASE 19 U/L (17-59); BILIRUBIN,DIRECT 0.5 mg/dL (0.0-0.4); BILIRUBIN,TOTAL 0.5 mg/dL (0.2-1.3); BLOOD UREA NITROGEN 25 mg/dL (7-20); CALCIUM 8.2 mg/dL (8.4-10.2); CARBON DIOXIDE 29 mmol/L (22-30); CHLORIDE 102 mmol/L (98-107); GLUCOSE 114 mg/dL (75-110); POTASSIUM 4.8 mmol/L (3.6-5.0)
--- NOTE | 2020-05-29 20:34 | ER Document Report ---
ED General - General Chief Complaint: Breathing Difficulty Stated Complaint: DIFFICULTY BREATHING Time Seen by Provider: 05/29/20 19:38 Primary Care Provider: LUIS CROW MD [Primary Care Provider] - Follow up as needed TRAVEL OUTSIDE OF THE [place] IN LAST 30 DAYS: No - HPI Notes: Patient is a 65-year-old male with a history of HIV, end-stage renal disease on dialysis, last dialyzed today, who presents to the emergency department for evaluation of cough and shortness of breath. He states symptoms of been going on for the last several days. He was seen at an urgent care, was told that he has pneumonia. He was started on a "green" antibiotic. He did take it this mor carey but has not yet taken it this evening. He did go to dialysis today, states he stayed the desizing machine offbearer, this took off the appropriate amount of fluid. He is unaware of any fevers. He had 3 episode of nonbloody, nonbilious emesis. One episode of diarrhea. - Related Data Allergies/Adverse Reactions: calcitriol Allergy (Verified 05/29/20 19:47) itching Past Medical History - General Information source: Patient - Social History Smoking Status: Current Some Day Smoker Family History: Reviewed & Not Pertinent, CAD, CVA, DM, Hyperlipidemia, Hypertension, Malignancy - Past Medical History Cardiac Medical History: Reports: Hx Congestive Heart Failure - EF is 25-30% in 01/2020, + diastolic dysfunction, Hx Coronary Artery Disease, Hx DVT, Hx Heart Attack, Hx Hypercholesterolemia, Hx Hypertension, Hx Peripheral Vascular Disease, Hx Pulmonary Embolism Denies: Hx Atrial Fibrillation Pulmonary Medical History: Reports: Hx Bronchitis, Hx COPD, Hx Pneumonia, Hx Respiratory Failure Denies: Hx Asthma, Hx Sleep Apnea Neurological Medical History: Denies: Hx Migraine, Hx Seizures Endocrine Medical History: Reports: Hx Diabetes Mellitus Type 2 - insulin dependent. Denies: Hx Diabetes Mellitus Type 1, Hx Hyperthyroidism, Hx Hypothyroidism Renal/ Medical History: Reports: Hx End Stage Renal Disease - Dialysis MWF with Dr. Pablo Lowe, Hx Hemodialysis. Denies: Hx Peritoneal Dialysis GI Medical History: Reports: Hx Gastroesophageal Reflux Disease. Denies: Hx Cirrhosis, Hx Crohn's Disease, Hx Hepatitis, Hx Ulcerative Colitis Musculoskeletal Medical History: Reports Hx Arthritis, Denies Hx Fibromyalgia, 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 bilat AKA, Reports Hx Musculoskeletal Trauma Skin Medical History: Denies Hx Eczema, Denies Hx Psoriasis Psychiatric Medical History: Reports: Hx Depression Traumatic Medical History: Denies: Hx Traumatic Brain Injury Infectious Medical History: Reports: Hx HIV - noncompliant with meds. Denies: Hx Hepatitis Past Surgical History: Reports: Hx Orthopedic Surgery - bilateral amputation, R BKA, L AKA, Hx Vascular Surgery - IVC filter, thrombectomy 05/18/2018 left arm, Other - Tunnel graft right axillary femoral bypass, dialysis fistula LUE - Immunizations Immunizations up to date: Yes Hx Diphtheria, Pertussis, Tetanus Vaccination: Yes Hx Pneumococcal Vaccination: 07/21/10 Review of Systems - Review of Systems Constitutional: Weakness EENT: No symptoms reported Cardiovascular: No symptoms reported Respiratory: See HPI Gastrointestinal: See HPI Genitourinary: No symptoms reported Musculoskeletal: No symptoms reported Skin: No symptoms reported Neurological/Psychological: No symptoms reported -: Yes All other systems reviewed and negative Physical Exam - Vital signs Vitals: Temp Resp BP Pulse Ox 98.4 F 18 169/96 H 98 05/29/20 19:20 05/29/20 19:20 05/29/20 19:20 05/29/20 19:20 - Notes Notes: Vital signs reviewed, please refer to chart. Head is normocephalic, atraumatic. Pupils equal round, reactive to light. Neck is supple without meningismus. Heart is regular rate and rhythm. Lungs reveal diminished breath sounds in the bases but no wheezes, rales, rhonchi. Abdomen is soft, nontender, normoactive bowel sounds throughout. Bilateral AKA's noted, no edema. Skin is warm and dry. Patient is awake, alert, neurological exam is nonfocal. Course - Re-evaluation Re-evalutation: 05/29/20 20:41 Patient presents to the emergency department for evaluation. He has a history of an immunocompromised state. He had imaging and blood work ordered. Awaiting radiology read, but I do not see any significant infiltrates at this time. He is oxygenating well. He is breathing 13 times a minute with a pulse ox of 96% on room air. He is already on antibiotics. His troponin was mildly elevated, this as a result of his end-stage renal disease. I do not see any indication for further intervention at this time. Will discuss with patient. 05/29/20 20:54 Patient's chest x-ray is interpreted by radiology showing chronic changes without any sort of acute infiltrative process. He is oxygenating well. His vital signs are unremarkable. He is already on antibiotics. His INR will need to be rechecked. Changes in his Coumadin dose may need to be made based on this finding, but otherwise there is no other acute process. Awaiting this. Othe rwise patient will be discharged with bronchitis instructions, a to go pack of Zofran, referral to follow-up with primary care. He is to return to the ED with worsening. - Vital Signs Vital signs: Temp Pulse Resp BP Pulse Ox 98.4 F 18 169/96 H 98 05/29/20 19:40 05/29/20 19:20 05/29/20 19:20 05/29/20 19:20 - Laboratory Result Diagrams: 05/29/20 19:22 05/29/20 19:22 Laboratory results interpreted by me: 05/29/20 05/29/20 05/29/20 19:22 19:22 19:22 RBC 3.36 L Hgb 10.9 L Hct 32.1 L RDW 15.0 H Loving % (Auto) 13.3 H VBG pH 7.46 H BUN 25 H Creatinine 5.76 H Est GFR ( Amer) 12 L Est GFR (MDRD) Non-Af 10 L Glucose 114 H Calcium 8.2 L Direct Bilirubin 0.5 H - Diagnostic Test Radiology reviewed: Image reviewed, Reports reviewed Discharge - Discharge Clinical Impression: Acute bronchitis, Viral syndrome, Nausea and vomiting Condition: Stable Disposition: HOME, SELF-CARE Instructions: Viral Syndrome ([facility]), Bronchitis ([facility]) Additional Instructions: Continue the antibiotics you have already been prescribed. Follow-up with your primary care provider next week. Zofran as needed for severe nausea. Return to the emergency department with worsening or new concerning symptoms of any sort. Referrals: LUIS CROW MD [Primary Care Provider] - Follow up as needed
--- NOTE | 2020-05-29 20:53 | RADIOLOGY REPORT (SQ) ---
EXAM DESCRIPTION: XR CHEST 1 VIEW COMPLETED DATE/TME: 05/29/2020 20:11 CLINICAL HISTORY: 65 years, Male, cough COMPARISON: Chest x-ray 05/05/2020. CT chest 02/05/2019 /TECHNIQUE: Upright portable chest x-ray FINDINGS: Mild cardiomegaly. No suspicious mediastinal widening.Mild hyperinflation. Chronic bibasilar opacity. No new findings.
[2020-05-29] MEDS ORDERED: ONDANSETRON ODT 4 MG TAB (6 TAB/ER DISP) PO PRN (20:55)
[2020-05-29 21:17] LABS: INTERNATIONAL RATION (INR) 2.62
[2020-05-29 21:34] VITALS: BP 165/98
--- NOTE | 2020-05-29 22:53 | EKG REPORT ---
SEVERITY:- ABNORMAL ECG - SINUS RHYTHM LEFT VENTRICULAR HYPERTROPHY : Confirmed by: Beulah Storm 29-May-2020 22:52:21
== END 2020-05-29 21:40 | disposition home or self-care (01) ==
LOC: ER 19:09
DX: J20.9 Acute bronchitis, unspecified (principal); J44.0 Chronic obstructive pulmonary disease with (acute) lower respiratory infection; J18.9 Pneumonia, unspecified organism; B34.9 Viral infection, unspecified; R11.2 Nausea with vomiting, unspecified; R19.7 Diarrhea, unspecified; I13.2 Hypertensive heart and chronic kidney disease with heart failure and with stage 5 chronic kidney disease, or end stage renal disease; E11.22 Type 2 diabetes mellitus with diabetic chronic kidney disease; N18.6 End stage renal disease; I50.32 Chronic diastolic (congestive) heart failure; Z99.2 Dependence on renal dialysis; F17.200 Nicotine dependence, unspecified, uncomplicated; I25.10 Atherosclerotic heart disease of native coronary artery without angina pectoris; E11.51 Type 2 diabetes mellitus with diabetic peripheral angiopathy without gangrene; Z21 Asymptomatic human immunodeficiency virus [HIV] infection status; Z79.01 Long term (current) use of anticoagulants; Z88.8 Allergy status to other drugs, medicaments and biological substances
CPT/HCPCS: 93005; 99285; 36415; 87040; 83605; 85025; 85610; 87077; 80053; 84484; 82803; 87150 ×26; 71045; 93010; A9270

== ENCOUNTER 2020-06-01 01:43 | Emergency (ER) | payer MEDICARE, MEDICAID ==
--- NOTE | 2020-06-01 02:12 | ER Document Report ---
ED General - General Chief Complaint: Shortness Of Breath Stated Complaint: CHEST PAIN Time Seen by Provider: 06/01/20 01:57 Primary Care Provider: LUIS CROW MD [Primary Care Provider] - Follow up as needed TRAVEL OUTSIDE OF THE [place] IN LAST 30 DAYS: No - HPI Notes: Patient is a 65-year-old male who presents to the emergency department for evaluation of shortness of breath. He is normally a Friday candidate for dialysis. He was supposed to be changed to Friday, , Friday. He was last dialyzed on Friday. He states today started getting more short of breath, became acutely more short of breath in the last 2 hours. No fevers or chills. No nausea or vomiting. He continues to have a cough. He was diagnosed with bronchitis earlier in the week, started on antibiotics. He has been taking them as prescribed. - Related Data Allergies/Adverse Reactions: calcitriol Allergy (Verified 06/01/20 01:54) itching Past Medical History - General Information source: Patient - Social History Smoking Status: Current Every Day Smoker Frequency of alcohol use: None Drug Abuse: None Family History: Reviewed & Not Pertinent, CAD, CVA, DM, Hyperlipidemia, Hypertension, Malignancy - Past Medical History Cardiac Medical History: Reports: Hx Congestive Heart Failure - EF is 25-30% in 01/2020, + diastolic dysfunction, Hx Coronary Artery Disease, Hx DVT, Hx Heart Attack, Hx Hypercholesterolemia, Hx Hypertension, Hx Peripheral Vascular Disease, Hx Pulmonary Embolism Denies: Hx Atrial Fibrillation Pulmonary Medical History: Reports: Hx Bronchitis, Hx COPD, Hx Pneumonia, Hx Respiratory Failure Denies: Hx Asthma, Hx Sleep Apnea Neurological Medical History: Denies: Hx Migraine, Hx Seizures Endocrine Medical History: Reports: Hx Diabetes Mellitus Type 2 - insulin dependent. Denies: Hx Diabetes Mellitus Type 1, Hx Hyperthyroidism, Hx Hypothyroidism Renal/ Medical History: Reports: Hx End Stage Renal Disease - Dialysis MWF with Dr. Pablo Lowe, Hx Hemodialysis. Denies: Hx Peritoneal Dialysis GI Medical History: Reports: Hx Gastroesophageal Reflux Disease. Denies: Hx Cirrhosis, Hx Crohn's Disease, Hx Hepatitis, Hx Ulcerative Colitis Musculoskeletal Medical History: Reports Hx Arthritis, Denies Hx Fibromyalgia, 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 bilat AKA, Reports Hx Musculoskeletal Trauma Skin Medical History: Denies Hx Eczema, Denies Hx Psoriasis Psychiatric Medical History: Reports: Hx Depression Traumatic Medical History: Denies: Hx Traumatic Brain Injury Infectious Medical History: Reports: Hx HIV - noncompliant with meds. Denies: Hx Hepatitis Past Surgical History: Reports: Hx Orthopedic Surgery - bilateral amputation, R BKA, L AKA, Hx Vascular Surgery - IVC filter, thrombectomy 05/18/2018 left arm, Other - Tunnel graft right axillary femoral bypass, dialysis fistula LUE - Immunizations Immunizations up to date: Yes Hx Diphtheria, Pertussis, Tetanus Vaccination: Yes Hx Pneumococcal Vaccination: 07/21/10 Review of Systems - Review of Systems Constitutional: No symptoms reported EENT: No symptoms reported Cardiovascular: See HPI Respiratory: See HPI Gastrointestinal: No symptoms reported Genitourinary: No symptoms reported Musculoskeletal: No symptoms reported Skin: No symptoms reported Neurological/Psychological: No symptoms reported -: Yes All other systems reviewed and negative Physical Exam - Vital signs Vitals: Resp 21 H 06/01/20 01:45 - Notes Notes: Vital signs reviewed, please refer to chart. Normal respiratory effort and rate. Head is normocephalic, atraumatic. Pupils equal round, reactive to light. Neck is supple without meningismus. Heart is regular rate and rhythm. Lungs reveal scattered rales throughout.. Abdomen is soft, nontender, normoactive bowel sounds throughout. Bilateral AKA with stump intact, no wounds noted. Skin is warm and dry. Patient is awake, alert, neurological exam is nonfocal. Course - Re-evaluation Re-evalutation: 06/01/20 02:17 Patient presents to the emergency department for evaluation. He was initially seen by nursing, who was concerned about his lungs, so started him on BiPAP. Work-up is begun, patient is currently stable. We will continue to monitor. 06/01/20 04:19 Patient's laboratory investigations are congruent with his history of end-stage renal disease. He has a very mild hyperkalemia but is only 5.2, he does not show any other acute changes at this time. His chest x-ray actually shows improved aeration per radiology. He is not exhibiting any signs of severe hypertension, and he actually urinated while here in the department. The patient has dialysis scheduled at 11:00 today. I do not see any need for more emergent dialysis tonight. I will been discharged the patient. He had been on BiPAP for some time, but I did not see any real indication for initially. He felt improved on it somewhat, and tolerated being off BiPAP for some time here. He is 95 to 97% on room air. Respiratory rate is between 19 and 22. He is stable for discharge. - Vital Signs Vital signs: Temp Pulse Resp BP Pulse Ox 98.4 F 88 16 142/72 H 99 06/01/20 05:18 06/01/20 05:18 06/01/20 05:18 06/01/20 05:18 06/01/20 05:18 - Laboratory Result Diagrams: 06/01/20 02:18 06/01/20 02:18 Laboratory results interpreted by me: 06/01/20 06/01/20 02:18 02:18 RBC 2.97 L Hgb 9.8 L Hct 28.4 L RDW 15.2 H Potassium 5.3 H Carbon Dioxide 21 L BUN 66 H Creatinine 11.23 H Est GFR ( Amer) 6 L Est GFR (MDRD) Non-Af 5 L Calcium 7.5 L Direct Bilirubin 0.8 H - Diagnostic Test Radiology reviewed: Image reviewed, Reports reviewed Radiology results interpreted by me: 06/01/20 04:20 Chest X-Ray 06/01/20 02:09 IMPRESSION: 1. Right basilar subsegmental atelectasis. Improved aeration from the comparison study. 2. Cardiomegaly. - EKG Interpretation by Me Additional EKG results interpreted by me: 06/01/20 04:21 Sinus mechanism with a rate of 85 bpm. Left axis deviation. IVCD. LVH with nonspecific ST changes. No acute changes concerning for ischemia or infarction. Discharge - Discharge Clinical Impression: End stage renal disease, Hyperkalemia Dyspnea Qualifiers: Dyspnea type: shortness of breath Qualified Code(s): R06.02 - Shortness of breath Condition: Stable Disposition: HOME, SELF-CARE Instructions: Dyspnea, Nonspecific ([facility]) Additional Instructions: Please go to dialysis as scheduled at 11 AM today. Follow-up with your primary care provider this week. Return to the emergency department with worsening or new concerning symptoms of any sort. Referrals: LUIS CROW MD [Primary Care Provider] - Follow up as needed
[2020-06-01 02:37] LABS: ABSOLUTE EOSINOPHILS # (AUTO) 0.2 10^3/uL (0.0-0.6); ABSOLUTE MONOCYTES (AUTO) 0.7 10^3/uL (0.1-1.4); ABSOLUTE NEUT (AUTO) 4.4 10^3/uL (1.7-8.2); BASOPHILS % (AUTO) 0.4 % (0-2); EOSINOPHILS % (AUTO) 2.5 % (0-6); HEMATOCRIT 28.4 % (37.9-51.0); HEMOGLOBIN 9.8 g/dL (13.5-17.0); LYMPHOCYTES % (AUTO) 27.8 % (13-45); MEAN CORPUSCULAR HEMOGLOBIN 32.9 pg (27.0-33.4); MEAN CORPUSCULAR HGB CONC 34.5 g/dL (32.0-36.0); MEAN CORPUSCULAR VOLUME 96 fl (80-97); MONOCYTES % (AUTO) 9.6 % (3-13); PLATELET COUNT 232 10^3/uL (150-450); RED BLOOD COUNT 2.97 10^6/uL (4.35-5.55); RED CELL DISTRIBUTION WIDTH 15.2 % (11.5-14.0); SEGMENTED NEUTROPHILS % (AUTO) 59.7 % (42-78); TOTAL CELLS COUNTED % (AUTO) 100 %; WHITE BLOOD COUNT 7.3 10^3/uL (4.0-10.5)
[2020-06-01 02:55] LABS: ALBUMIN 3.9 g/dL (3.5-5.0); ALKALINE PHOSPHATASE 60 U/L (38-126); ANION GAP 17 (5-19); ASPARTATE AMINO TRANSFERASE 27 U/L (17-59); BILIRUBIN,DIRECT 0.8 mg/dL (0.0-0.4); BILIRUBIN,TOTAL 0.8 mg/dL (0.2-1.3); BLOOD UREA NITROGEN 66 mg/dL (7-20); CALCIUM 7.5 mg/dL (8.4-10.2); CARBON DIOXIDE 21 mmol/L (22-30); CHLORIDE 101 mmol/L (98-107); GLUCOSE 87 mg/dL (75-110); POTASSIUM 5.3 mmol/L (3.6-5.0); TOTAL PROTEIN 6.4 g/dL (6.3-8.2)
--- NOTE | 2020-06-01 03:35 | RADIOLOGY REPORT (SQ) ---
EXAM DESCRIPTION: XR CHEST 1 VIEW COMPLETED DATE/TME: 06/01/2020 02:42 CLINICAL HISTORY: dyspnea COMPARISON: 05/29/2020 FINDINGS: Single frontal radiograph view of the chest. Cardiomediastinal silhouette: Atherosclerotic calcification of the thoracic aorta. Cardiomegaly. Lungs: Linear right basilar opacities likely representing subsegmental atelectasis. No pneumothorax or large effusion. Improved aeration from the comparison study. Bones: Degenerative endplate spondylosis. Postoperative change in the right upper abdomen. Upper abdomen: No abnormality identified. IMPRESSION: 1. Right basilar subsegmental atelectasis. Improved aeration from the comparison study. 2. Cardiomegaly.
[2020-06-01 05:20] VITALS: BP 142/72
--- NOTE | 2020-06-02 00:34 | EKG REPORT ---
SEVERITY:- ABNORMAL ECG - SINUS RHYTHM LVH WITH IVCD, LAD AND SECONDARY REPOL ABNRM : Confirmed by: Beulah Storm 02-Jun-2020 00:33:05
--- OUTSIDE RECORDS SUMMARY | 2020-06-02 14:50 | XMS REPORT ---
:1955 [facility] [address] [place] [address] Care Team Providers Name Role Phone PCP, NONE PER PATIENT Primary Care Physician Unavailable PADMA Attending Clinician Unavailable LAB DRAW Attending Clinician Unavailable ZHANG LICEA Attending Clinician Unavailable OSMAN HUTCHISON Attending Clinician Unavailable REYES Attending Clinician Unavailable SALARY, D Attending Clinician Unavailable BEENHERBERTI Admitting Clinician Unavailable Allergies, Adverse Reactions, Alerts This patient has no known allergies or adverse reactions. Medications Ordered Filled Start Stop Current Ordering Indication Dosage Frequency Signature Comments Components Medication Medication Date Date Medication? Clinician (SIG) Name Name abacavir 2019-0 No 300mg QD Take 300 (ZIAGEN) 7-20 mg by 300 mg 00:00: mouth once tablet 00 daily TIVICAY 50 2020-0 No 50mg QD Take 50 mg mg tablet 7-20 by mouth 00:00: once daily 00 EPIVIR 10 2019-0 No QD Take by mg/mL 7-20 mouth once solution 00:00: daily 00 cloNIDine 2020-0 No HCL 7-16 (CATAPRES) 00:00: 0.2 MG 00 tablet oxyCODONE-a 2020-0 No cetaminophe 7-06 n 00:00: (PERCOCET) 00 5-325 mg tablet warfarin 2019-0 No 4mg Take 4 mg (COUMADIN) 5-23 by mouth 4 MG tablet 00:00: as 00 directed Takes 8 mg on Tue, TH, Sat and Sun and 10 mg on MWF isosorbide 2019-0 No 30mg QD Take 30 mg mononitrate 5-10 by mouth (IMDUR) 30 00:00: once daily MG ER 00 tablet FUROsemide 2019-0 No 80mg Q.5D Take 80 mg (LASIX) 80 5-05 by mouth 2 MG tablet 00:00: (two) 00 times daily buPROPion 2019-2020- No Take by (WELLBUTRIN 4-16 04-16 mouth SR) 150 MG 00:00: 23:59 SR tablet 00 :00 niFEdipine No 90mg QD Take 90 mg (PROCARDIA- 1-20 by mouth XL) 90 MG 00:00: once daily (OSM) XL 00 tablet albuterol No 1{puff} Q4H Inhale 1 90 1-09 inhalation mcg/actuati 00:00: into the on inhaler 00 lungs every 4 (four) hours as needed hydrALAZINE 2018-07- No 10mg Q.5D Take 10 mg (APRESOLINE 2-31 12-30 by mouth 2 ) 10 MG 00:00: 23:59 (two) tablet 00 :00 times daily warfarin 2018-07 No 5mg Take 5 mg (COUMADIN) 1-20 by mouth 5 MG tablet 00:00: as 00 directed Takes 10 mg on MWF and 8 mg on Fri, , Fri and Sun fluticasone 2018-07- No Inhale propionate 1-13 11-12 into the (FLOVENT 00:00: 23:59 lungs HFA) 110 00 :00 mcg/actuati on inhaler calcium No Take by acetate,stanley 523 mouth sphat bind, 00:00: (PHOSLO) 00 667 mg capsule gabapentin No 100mg Q24H Take 100 (NEURONTIN) mg by 100 MG mouth once capsule daily as needed Problems Condition Condition Condition Status Onset Resolution Last Treatin g Comments Name Details Category Date Date Treatment Clinician Date Abdominal Abdominal [id number] Active 2020-02-10 Overview: aorta aorta 02-09 17:16:13 subacut e thrombosis thrombosis 00:00: in trarena 00 l abdomina l aortic occlusio n . 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 Risk Factor: IVDU, MSM. Pansensi t rafael genotype in 2003. ART hx- 1999: Epivir, Zerit, Viramune 2003: Videx, Kaletra, Zerit 2007: Kaletra and Truvada 2012: Atripla 2012:Slim e tra and Truvada Last Assessme n t & Plan : -current l y taking abacavir and dolutegr a vir Hypertensio Hypertensio [id number] Active 2020-02-10 Overview: n goal BP n goal BP 02-09 17:16:13 Pat ient (blood (blood 00:00: is pressure) < pressure) < 00 currently 130/80 130/80 taking amlodipi n e-benazo p ril as his home regimen. Tobacco Tobacco [id number] Active 2020-02-10 Over view: dependency dependency 02-09 17:16:13 1 00:00: Encourag e 00 d cessatio n . Will try Nicotine patches. 07/02/18 pt is aware he needs to stop!; reports he is down to 2 a day Last Assessme n t & Plan : I personal l y discusse d the patient' s tobacco dependen c y with him for 3-5 minutes. The patient was encourag e d to linda t smoking as soon as possible and was offered nicotine replacem e nt therapy via nicotine patch. H e will followup with his primary care provider after discharg e for continue d tobacco cessatio n counseli n g. -nicotin e patch in place PVD PVD [id number] Active 2020-02-10 Over view: (peripheral (peripheral 02-09 17:16:13 S/p vascular vascular 00:00: bilate ral disease) disease) 00 amputa marilu ns (R-BK A and L-AKA). 04/27/13 Seen by vascular surgery at [facility] with diagnosi s of left hand ischemia . Pletal and diagnost i c studie s ordered. Last Assessme n t & Plan : Thrombos i s of bilatera l poplitea l arteries in setting of cocaine use June 1999. Bilatera l BKA (Kotwal) early July 1999. Bronchitis Bronchitis 12489828 Active 2020-02-10- 17:16:13 00:00: 00 Paroxysmal Paroxysmal 60834677 Active 2020-02-10 atrial atrial 1-10 17:16:13 fibrillatio fibrillatio 00:00: n n 00 Ischemic Ischemic 03697215 Active 2018-072020-02-10 colitis colitis - 17:16:13 00:00: 00 End-stage End-stage 74957876 Active 2018-072020-02-10 Overview: renal renal 0-12 17:16:13 Last disease on disease on 00:00: As sessmen hemodialysi hemodialysi 00 t & Plan: s s -complet e d a full session yesterda y . -consult Nephrolo g y for hemodial y sis. Thi s can be done in am. Noncomplian Noncomplian 04492639 Active 2020-02-10 ce ce 12-10 17:16:13 00:00: 00 Other Other 90286140 Active 2017-072020-02-10 Over view: pulmonary pulmonary 09-02 17:16:13 On embolism embolism 00:00: Chroni c without without 00 Coumadin acute cor acute cor ther apy pulmonale, pulmonale, unspecified unspecified chronicity chronicity Amputation Amputation 06379013 Active 2017-072020-02-10 Overview: of both of both 0 17:16:13 10/22/18 lower lower 00:00: never extremities extremities 00 followed through with Bashir d ; using someone [employer] i r; order given to get his own. 05/04/18 - face to face for Bashir goode Cardiomyopa Cardiomyopa 87503991 Active 2017-072020-02-10 Overview: thy, thy, 0-05 17:16:13 Last hypertensiv hypertensiv 00:00: Assessmen e, with e, with 00 t & Plan : heart heart -euvolem i failure failure c currentl y , withou t edema noted on CT chest - resume diuretic - continue imdur/hy d ralazine combo an d continue to hold beta gregorio due to cocaine abuse Substance Substance 57970807 Active 2020-02-10 Overview: use use - 17:16:13 Current ly disorder disorder 00:00: report s 00 no other use except cigarett e s. Last Assessme n t & Plan : - check urine drug screen Chronic Chronic 66825011 Active 2020-02-10 Over view: systolic systolic 04-12 17:16:13 Hospi nancy (congestive (congestive 00:00: zation in ) heart ) heart e failure failure ptember 2014 in [facility] . Echocard i ogram done, systolic dysfunct i on,07/24 diastoli c dysfunct i on, 35-40% EF. 03/21/15 Lesixcan cardioli t e strss test: Normal EKG and hemodyna m ic response to IV Lexiscan COPD COPD 08537066 Active 2020-02-10 Over view: (chronic (chronic 2-06 17:16:13 Uses QVAR obstructive obstructive 00:00: daily and pulmonary pulmonary 00 Vent eloise disease) disease) prn [facility] Assessme n t & Plan : - no wheezes - resume home maintena n ce inhalers and bronchod i lators a s needed Hypercoagul Hypercoagul 56371086 Active 2020-02-10 Overview: able state able state 5-13 17:16:13 00:00: managed 00 by [facility] who has him getting INR draw n during dialysis . No longe r followin g Dr. Skelton since he r office closure. Still waiting for him to get i n to see Cardiokalpesh graves for manageme n t [facility]. I will manage i n meantime . We had a lengthy discussi o n about his INR goal, th e reason his has occlusio n in dista l Aorta, need for improved complian c e and communic a tion wit h us so we can manage and control his INR better. He seems to understa n d this. Last Assessme n t & Plan : - resume warfarin , pharmacy [facility] - will provide warfarin refill a t discharg e Procedures Procedure Date / Time Performed Performing Clinician Devic e ALBUMIN 2020-02-10 08:38:00 Owen Licea CREATININE 2020-02-10 08:38:00 Owen Licea VARICELLA ZOSTER ANTIBODY, IGG 2020-02-10 08:38:00 Margarette Licea TYPE AND SCREEN 2020-02-10 08:38:00 Owen Licea CYTOMEGALOVIRUS (CMV) ANTIBODY, IGG 2020-02-10 08:38:00 Michaela Licea HEPATITIS B SURFACE ANTIGEN 2020-02-10 08:38:00 Owen Licea HEPATITIS B SURFACE ANTIBODY 2020-02-10 08:38:00 Owen Licea HIV-1 AND HIV-2 ANTIBODY, COMBINED 2020-02-10 08:38:00 Yuan Licea RUBEOLA ANTIBODIES, IGG 2020-02-10 08:38:00 Owen Licea CYTOMEGALOVIRUS (CMV) ANTIBODY, IGM 2020-02-10 08:38:00 Michaela Licea YAMILETH SPRINGER VIRUS ANTIBODIES 2020-02-10 08:38:00 Owen Licea PROSTATE SPECIFIC ANTIGEN (PSA), 2020-02-10 08:38:00 Hira Licea TOTAL, SCREEN HC HEPATITIS A AB 2020-02-10 08:38:00 Owen Licea HCV ANTIBODY TESTING WITH REFLEX TO 2020-02-10 08:38:00 Michaela Licea VIRAL LOAD PCR HLA CLASS I TYPING LOW RESOLUTION 2020-02-10 08:38:00 Lion Licea HLA FLOW PRA SCREEN PRE TRANSPLANT 2020-02-10 08:38:00 Yuan Licea HLA ANTIBODY SPECIFICITY CLASS II 2020-02-10 08:38:00 Lion Licea (LO) HLA CLASS II TYPING LOW RESOLUTION 2020-02-10 08:38:00 Yuan Licea MUMPS ANTIBODIES, IGG ONLY 2020-02-10 08:38:00 Owen Licea Results Test Description Test Time Test Comments Text Results Atomic Results Result Comments HLA Flow PRA Screen Pre Transplant 2020-02-21 16:38:00 Test Item Value Reference Range Comments PERCENT RELATIVE AB CLASS I (test code = 0 26237305) PERCENT RELATIVE AB CLASS II (test code = TU 70898116) DILUTION (test code = 80478228) 1:1 METHOD AB (test code = 64333239) Flow Cytometry TEST DATE AB (test code = 53012602) 20200215 SAMPLE DATE (test code = 49258521) 20200210 HLA COMMENTS (test code = 75627816) Flow Screen DE: TU=NO ACCURA TE PRA PERCENTAGE CAN BE DETERMINED Disclaimer #1 (test code = 77956332) HLA Antibody Specificity Class [id number] 16:31:00 Test Item Value Reference Range Comments CPRA CLASS II (test code = 76278264) 0 SPEC CII AB (test code = 90055890) SEE COMMENT DILUTION (test code = 69934658) 1:1 METHOD AB (test code = 68783297) LUMINEX TEST DATE AB (test code = 34083282) 20200214 SAMPLE DATE (test code = 11216541) 20200210 HLA COMMENTS (test code = 33146612) Disclaimer #2 (test code = 54988067) HLA Class I Typing Low [id number] 16:45:00 Test Item Value Reference Range Comments HLA A LR ALLELE 1 (test code = 66378651) A*03:01 HLA A* LR ALLELE 2 (test code = 05162456) A*30:02 HLA B LR ALLELE 1 (test code = 66568397) B*08:01 HLA B LR ALLELE 2 (test code = 40966862) B*52:01 HLA C LR ALLELE 1 (test code = 11983078) C*07:01 HLA C LR ALLELE 2 (test code = 47587555) C*16:01 METHOD TYP (test code = 69437249) NGS HLA A LR ALLELE 1 SEROLOGICAL EQUIVALENT (test A3 code = 89474673) HLA A LR ALLELE 2 SEROLOGICAL EQUIVALENT (test A30 code = 68199574) HLA B* LR ALLELE 1 SEROLOGICAL EQUIVALENT (test B8 code = 48146871) HLA B LR ALLELE 2 SEROLOGICAL EQUIVALENT (test B52 code = 96242879) HLA BW LR ALLELE 1 (test code = 30994729) Bw6 HLA BW LR ALLELE 2 (BKR) (test code = 65844994) Bw4 HLA C LR ALLELE 1 SEROLOGICAL EQUIVALENT (test Cw7 code = 28431534) HLA C LR ALLELE 2 SEROLOGICAL EQUIVALENT (test Cw16 code = 70891539) Patient Type (test code = 36922111) RECIPIENT SAMPLE SOURCE (test code = 01268603) BLOOD SAMPLE DATE (test code = 60781723) 20200210 HLA COMMENTS (test code = 87914468) HLA Class II Typing Low [id number] 16:45:00 Test Item Value Reference Range Comments HLA DRB1 LR ALLELE 1 (test code = 37224523) DRB1*03:01 HLA DRB1 LR ALLELE 2 (test code = 66880876) DRB1*11:01 HLA DRB3 LR ALLELE 1 (test code = 48730877) DRB3*01:01 HLA DRB3 LR ALLELE 2 (test code = 83831179) DRB3*02:02 HLA DQA1 LR ALLELE 1 (test code = 66142211) DQA1*01:02 HLA DQA1 LR ALLELE 2 (test code = 48500358) DQA1*05:01 HLA DQB1 LR ALLELE 1 (test code = 48758091) DQB1*02:01 HLA DQB1 LR ALLELE 2 (test code = 46065104) DQB1*06:02 HLA DPA1 LR ALLELE 1 (test code = 23304584) DPA1*02:01 HLA DPA1 LR ALLELE 2 (test code = 40466181) DPA1*02:02 HLA DPB1 LR ALLELE 1 (test code = 69357058) DPB1*01:01 HLA DPB1 LR ALLELE 2 (test code = 89560359) DPB1*- METHOD TYP (test code = 46063400) NGS HLA-DRB1 LR ALLELE 1 SEROLOGICAL EQUIVALENT (test DR17 code = 11874414) HLA DRB1 LR ALLELE 2 SEROLOGICAL EQUIVALENT (test DR11 code = 22876777) HLA DRB3 LR ALLELE 1 SEROLOGICAL EQUIVALENT (test DR52 code = 28912611) HLA DRB3 LR ALLELE 2 SEROLOGICAL EQUIVALENT (test DR52 code = 61067503) HLA DQB1* LR ALLELE 1 SEROLOGICAL EQUIVALENT DQ2 (test code = 95288594) HLA DQB1* LR ALLELE 2 SEROLOGICAL EQUIVALENT DQ6 (test code = 54460083) HLA DPB1 LR ALLELE 1 SEROLOGICAL EQUIVALENT (test DP1 code = 03305161) HLA DPB1* LR ALLELE 2 SEROLOGICAL EQUIVALENT DP- (test code = 27738450) Patient Type (test code = 78495981) RECIPIENT SAMPLE SOURCE (test code = 37050367) BLOOD SAMPLE DATE (test code = 30629464) 20200210 HLA COMMENTS (test code = 65338545) Cytomegalovirus (CMV) Antibody, [id number] 16:23:00 Test Item Value Reference Range Comments Cytomegalovirus (CMV) Antibody, IGG (test code = Positive Negative 73521821) CLEMENTE (test code = CLEMENTE) Lab Interpretation (test code = 39080-1) Abnormal Cytomegalovirus (CMV) Antibody, [id number] 16:16:00 Test Item Value Reference Range Comments Cytomegalovirus (CMV) Antibody, IGM (test code = Positive Negative 38297701) CLEMENTE (test code = CLEMENTE) Lab Interpretation (test code = 80749-5) Abnormal Yamileth Springer Virus [id number] 15:47:00 Test Item Value Reference Range Comments EBV Ab/VCA IgG (test code = 07067270) Positive Negative EBV Ab/VCA IgM (test code = 21121549) Negative Negative EBV Ab/EBNA (test code = 66630068) Positive Negative EBV Ab/EA IgG (test code = 49422858) Negative Negative Lab Interpretation (test code = 38941-4) Abnormal Varicella Zoster antibody, [id number] 15:11:00 Test Item Value Reference Range Comments Varicella-Zoster Antibody, IGG (test code = Positive Posi tive 77093-1) CLEMENTE (test code = CLEMENTE) Lab Interpretation (test code = 20036-3) Normal Rubeola Antibodies, [id number] 07:36:00 Test Item Value Reference Range Comments Rubeola Antibodies, IgG >300.0 Immune >16.4 AU/mL (test code = 60917776) Negative <13.5 Equivocal 13.5 - 16.4 Positiv e >16.4 Presence of antibodies to Rubeola is pr esumptive evidence of immu nity except when acute infec tion is suspected. CLEMENTE (test code = CLEMENTE) Mumps Antibodies, IgG [id number] 07:36:00 Test Item Value Reference Range Comments Mumps IgG Antibody (test code 239 AU/mL Immune >10.9 = 12178246) Negative <9.0 Equivocal 9. 0 - 10.9 Posit rafael >10.9 A positi ve result generally indica fabiola past exposure to Mump s virus or previous vaccina tion. CLEMENTE (test code = CLEMENTE) HIV-1 And HIV-2 Antibody & [id number] 13:40:00 Test Item Value Reference Range Comments HIV 1&2 Antibody/Antigen (test code = Reactive NonReactiv e 92426-2) HIV Antibody (test code = 38449-6) HIV-1 POSITIVE (none) CLEMENTE (test code = CLEMENTE) Lab Interpretation (test code = 79418-1) Abnormal Hepatitis A Antibody, [id number] 11:36:00 Test Item Value Reference Range Comments Hepatitis A Virus, Antibody (test code = 26640-6) Reactive NonReactive Lab Interpretation (test code = 34802-1) Abnormal HCV ANTIBODY TESTING WITH REFLEX TO VIRAL LOAD [id number] 11:35:00 Test Item Value Reference Range Comments Hepatitis C Virus Antibody (test code = 39296-0) NonReactive NonReactive Lab Interpretation (test code = 00126-4) Normal Hepatitis B Surface [id number] 11:17:00 Test Item Value Reference Range Comments Hepatitis B Surface Antibody (test code = 62475-4) Reactive NonReactive Hepatitis B Surface Antibody Quant (test code = >1000 mIU/mL 73239880) CLEMENTE (test code = CLEMENTE) Lab Interpretation (test code = 35412-7) Abnormal Hepatitis B Surface [id number] 11:16:00 Test Item Value Reference Range Comments Hepatitis B Surface Antigen (test code = 5195-3) NonReactive NonReactive Lab Interpretation (test code = 43538-7) Normal Type And [id number] 10:08:00 Test Item Value Reference Range Comments ABO RH TYPE (test code = 882-1) AB Positive Antibody Screen (test code = 890-4) Negative Specimen Outdate (test code = 97455625) 02-13-2020 23:59 Prostate Specific Antigen (PSA), [id number] 09:51:00 Test Item Value Reference Range Comments PSA (Prostate Specific 6.05 ng/mL <=2.99 [facility] [place] PSA Antigen), Total (test code = Scr eening algorithm, based on 2857-1) a multi-discipli lucy consensus panel review of best reported pr actice in the literature. All recommendations and treatment decisions should be made in conjunction with the patient after discussion and counseling. If P SA >= 3.0 ng/ml, consider referral to Urology If PSA < 3.0 ng/ml, consider screeni ng every two years Access AFAR Total-PSA Method : The measured value o f this analyte can vary depending upon the testing procedure used. Values det ermined on patient samples by differing testing procedur es cannot be directly compare d with one another, and cou ld be cause of erroneous med ical interpretation. Lab Interpretation (test code Abnormal = 29058-5) Prostate Specific Antigen (PSA), [id number] 09:51:00 Test Item Value Reference Range Comments PSA (Prostate Specific 6.05 ng/mL <=2.99 [facility] [place] PSA Antigen), Total (test code = Scr eening algorithm, based on 2857-1) a multi-discipli lucy consensus panel review of best reported pr actice in the literature. All recommendations and treatment decisions should be made in conjunction with the patient after discussion and counseling. If P SA >= 3.0 ng/ml, consider referral to Urology If PSA < 3.0 ng/ml, consider screeni ng every two years [employer] Total-PSA Method : The measured value o f this analyte can vary depending upon the testing procedure used. Values det ermined on patient samples by differing testing procedur es cannot be directly compare d with one another, and cou ld be cause of erroneous med ical interpretation. Lab Interpretation (test code Abnormal = 20086-7) [id number] 09:37:00 Test Item Value Reference Range Comments Albumin (test code = 1751-7) 3.2 g/dL 3.5-4.8 Lab Interpretation (test code = 48301-6) Abnormal [id number] 09:37:00 Test Item Value Reference Range Comments Creatinine (test code = 2160-0) 7.1 mg/dL 0.6-1.3 Glomerular Filtration Rate 8 mL/min/1.73sq m Inter pretive Ranges for (eGFR) (test code = 83922-0) eG FR(CKD-EPI): eGFR: > 60 mL/min/1.73 sq m - Normal eGFR: 30 - 59 mL/min/1.73 sq m - Moderately Decre ased eGFR: 15 - 29 mL/min/1.73 sq m - Severely Decreased eGFR: < 15 mL/ min/1.73 sq m - Kidney Yordan lure Note: These GFR calcul ations do not apply in acu te situations when GFR is changing rapidly or in patients on dial ysis. Lab Interpretation (test code = Abnormal 93739-7) [id number] 09:37:00 Test Item Value Reference Range Comments Albumin (test code = 1751-7) 3.2 g/dL 3.5-4.8 Lab Interpretation (test code = 82736-6) Abnormal [id number] 09:37:00 Test Item Value Reference Range Comments Creatinine (test code = 2160-0) 7.1 mg/dL 0.6-1.3 Glomerular Filtration Rate 8 mL/min/1.73sq m Inter pretive Ranges for (eGFR) (test code = 24141-2) eG FR(CKD-EPI): eGFR: > 60 mL/min/1.73 sq m - Normal eGFR: 30 - 59 mL/min/1.73 sq m - Moderately Decre ased eGFR: 15 - 29 mL/min/1.73 sq m - Severely Decreased eGFR: < 15 mL/ min/1.73 sq m - Kidney Yordan lure Note: These GFR calcul ations do not apply in acu te situations when GFR is changing rapidly or in patients on dial ysis. Lab Interpretation (test code = Abnormal 23233-8) REQUEST TO STORE OUTSIDE [id number] 07:11:40Please refer to the appropriate PACS to view images. Assessments Condition Name Status Diagnosis Date Treating Clinici an Awaiting transplantation of kidney Unknown Screening PSA (prostate specific antigen) Unknown Awaiting transplantation of kidney Unknown Encounter for screening for other viral Unknown diseases Awaiting organ transplant status Unknown Organ transplant candidate Unknown Encounters Start End Encounter Admission Attending Care Care Encounter Date/Time Date/Time Type Type Clinicians Facility Department ID 2020-02-14 2020-02-14 Outpatient [facility] [id number] 00:00:00 00:00:00 2020-02-10 2020-02-10 Outpatient [facility] [id number] 07:44:30 17:04:01 2020-02-10 2020-02-10 Outpatient [facility] [id number] 07:46:05 17:03:36 2020-02-10 2020-02-10 [facility] [id number] 07:42:52 17:01:27 DAVID 2020-02-10 2020-02-10 Outpatient TREV EMERY, [facility] [id number] 07:42:12 16:49:06 2B2C 2020-02-10 2020-02-10 Outpatient VINAY [facility] [id number] 08:47:11 08:47:11 OWEN 2020-02-10 2020-02-10 Outpatient VINAY [facility] [id number] 08:31:31 08:46:00 OWEN 2020-02-10 2020-02-10 Outpatient FOSTER [facility] [id number] 07:43:34 07:43:34 DOMINIK 2020-02-10 2020-02-10 Outpatient [facility]LEEN [facility] [id number] 07:41:05 07:41:05 ELENITA 2019-09-28 2019-09-28 Outpatient [facility] [id number] 00:00:00 00:00:00 2019-08-16 2019-08-16 Outpatient CARLEEN LICEA [facility] [id number] 10:42:20 23:59:00 OWEN 2019-07-30 2019-07-30 Outpatient [facility] [id number] 00:00:00 00:00:00 2019-07-07 2019-07-07 Outpatient [facility] [id number] 00:00:00 00:00:00 2018-04-06 2018-04-08 Inpatient 1 [facility], [facility] [id number] 07:43:00 18:00:00 ZAC Immunizations Ordered Immunization Filled Immunization Date Status Commen ts Refusal Reason Name Name Influenza, IM 2019-05-04 Completed unspecified 00:00:00 Influenza, IM 2017-05-19 Completed unspecified 00:00:00 Payers Payer Name Policy Type Policy Number Effective Date Expiration D ate Plan of Treatment Planned Activity Planned Date Details Comments Future Scheduled Test [code = ] Future Scheduled Test [code = ] Future Scheduled Test [code = ] Future Scheduled Test [code = ] Future Scheduled Test [code = ] Future Scheduled Test [code = ] Future Scheduled Test [code = ] Future Scheduled Test [code = ] Future Scheduled Test [code = ] Future Scheduled Test [code = ] Future Scheduled Test [code = ] Future Scheduled Test [code = ] Future Scheduled Test [code = ] Future Scheduled Test [code = ] Future Scheduled Test [code = ] Future Scheduled Test [code = ] Future Scheduled Test [code = ] Future Scheduled Test [code = ] Future Scheduled Test [code = ] Future Scheduled Test [code = ] Future Scheduled Test [code = ] Future Scheduled Test [code = ] Future Scheduled Test [code = ] Future Scheduled Test [code = ] Future Scheduled Test [code = ] Future Scheduled Test [code = ] Future Scheduled Test [code = ] Future Scheduled Test [code = ] Future Scheduled Test [code = ] Future Scheduled Test [code = ] Future Scheduled Test [code = ] Future Scheduled Test [code = ] Future Scheduled Test [code = ] Future Scheduled Test [code = ] Future Scheduled Test [code = ] Future Scheduled Test [code = ] Future Scheduled Test [code = ] Future Scheduled Test [code = ] Future Scheduled Test [code = ] Future Scheduled Test [code = ] Future Scheduled Test [code = ] Future Scheduled Test [code = ] Future Scheduled Test [code = ] Future Scheduled Test [code = ] Future Scheduled Test [code = ] Future Scheduled Test [code = ] Future Scheduled Test [code = ] Future Scheduled Test [code = ] Future Scheduled Test [code = ] Future Scheduled Test [code = ] Social History Social Habit Start Date Stop Date Comments Exposure to SARS-CoV-2 (event) Tobacco use and exposure 2020-02-10 00:00:00 2020-02-10 00:00:00 Cigarettes smoked current (pack per 2020-02-10 00:00:00 00:00:00 day) - Reported Alcohol intake 2020-02-10 00:00:00 2020-02-10 00:00:00 Tobacco Comment 2020-02-10 00:00:00 2020-02-10 00:00:00 Smoking Status Start Date Stop Date History of tobacco use Current every day smoker 2020-02-10 00:00:00 2020-02-10 00:0 0:00 Vital Signs Vital Name Observation Time Observation Value Comments Systolic blood pressure 2020-02-10 11:40:00 153 mm[Hg] Diastolic blood pressure 2020-02-10 11:40:00 76 mm[Hg] Heart rate 2020-02-10 11:40:00 98 /min Body temperature 2020-02-10 11:40:00 36.83 Laisha Body height 2020-02-10 11:40:00 127 cm Body weight 2020-02-10 11:40:00 73.029 kg BMI 2020-02-10 11:40:00 45.28 kg/m2 Body height 2019-07-07 15:00:00 167.6 cm Body weight 2019-07-07 15:00:00 72 kg BMI 2019-07-07 15:00:00 25.62 kg/m2
== END 2020-06-01 05:18 | disposition home or self-care (01) ==
LOC: ER 01:43
DX: I13.2 Hypertensive heart and chronic kidney disease with heart failure and with stage 5 chronic kidney disease, or end stage renal disease (principal); E11.22 Type 2 diabetes mellitus with diabetic chronic kidney disease; N18.6 End stage renal disease; I50.9 Heart failure, unspecified; E87.5 Hyperkalemia; Z99.2 Dependence on renal dialysis; Z79.4 Long term (current) use of insulin; R06.02 Shortness of breath; R07.9 Chest pain, unspecified; Z88.8 Allergy status to other drugs, medicaments and biological substances; F17.200 Nicotine dependence, unspecified, uncomplicated; I25.10 Atherosclerotic heart disease of native coronary artery without angina pectoris; I25.2 Old myocardial infarction; J44.9 Chronic obstructive pulmonary disease, unspecified
CPT/HCPCS: 36415; 71045; 80053; 84484; 85025; 93005; 93010; 99285

== ENCOUNTER 2020-06-01 06:37 | Emergency (ER) | payer MEDICARE, MEDICAID ==
--- NOTE | 2020-06-01 09:24 | ER Document Report ---
ED General - General Chief Complaint: Shortness Of Breath Stated Complaint: DIFFICULTY BREATHING Time Seen by Provider: 06/01/20 09:02 Primary Care Provider: LUIS CROW MD [Primary Care Provider] - Follow up as needed TRAVEL OUTSIDE OF THE [place] IN LAST 30 DAYS: No - HPI Context: This is a 65-year-old male with a history of end-stage renal disease, typically on a Friday schedule for dialysis. Patient states that his last dialysis appointment was Friday and he was switched to dialysis is on the Friday schedule starting of this week which is today. Patient was seen here in this ED earlier this morning around 2 AM, thoroughly evaluated and discharged home with directions to follow-up with dialysis today as scheduled at 11 AM. Patient states after he got home he started feeling short of breath again and called EMS. Per EMS report the patient was found to be hyperventilating and anxious. Apparently EMS gave the patient 5 mg of Versed IM at 0607 and then at 0 619 put him on CPAP. Patient states not having supplemental oxygen and not having had his dialysis exacerbates his shortness of breath and states that the CPAP and BiPAP has been used on him has helped alleviate his symptoms. Patient denies fever, chills, chest pain, loss of sense of taste or smell, history of COVID-19 infection, known exposure to persons positive for or under investigation for COVID-19. Associated symptoms: Other - See HPI Exacerbated by: Other - See HPI Relieved by: Other - See HPI Similar symptoms previously: Yes Recently seen / treated by doctor: Yes - Related Data Allergies/Adverse Reactions: calcitriol Allergy (Verified 06/01/20 01:54) itching Past Medical History - General Information source: Patient - Social History Smoking Status: Former Smoker Frequency of alcohol use: None Drug Abuse: None Family History: Reviewed & Not Pertinent, CAD, CVA, DM, Hyperlipidemia, Hypertension, Malignancy - Past Medical History Cardiac Medical History: Reports: Hx Congestive Heart Failure - EF is 25-30% in 01/2020, + diastolic dysfunction, Hx Coronary Artery Disease, Hx DVT, Hx Heart Attack, Hx Hypercholesterolemia, Hx Hypertension, Hx Peripheral Vascular Disease, Hx Pulmonary Embolism Denies: Hx Atrial Fibrillation Pulmonary Medical History: Reports: Hx Bronchitis, Hx COPD, Hx Pneumonia, Hx Respiratory Failure Denies: Hx Asthma, Hx Sleep Apnea Neurological Medical History: Denies: Hx Migraine, Hx Seizures Endocrine Medical History: Reports: Hx Diabetes Mellitus Type 2 - insulin dependent. Denies: Hx Diabetes Mellitus Type 1, Hx Hyperthyroidism, Hx Hypothyroidism Renal/ Medical History: Reports: Hx End Stage Renal Disease - Dialysis MWF with Dr. Pablo Lowe, Hx Hemodialysis. Denies: Hx Peritoneal Dialysis GI Medical History: Reports: Hx Gastroesophageal Reflux Disease. Denies: Hx Cirrhosis, Hx Crohn's Disease, Hx Hepatitis, Hx Ulcerative Colitis Musculoskeletal Medical History: Reports Hx Arthritis, Denies Hx Fibromyalgia, 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 bilat AKA, Reports Hx Musculoskeletal Trauma Skin Medical History: Denies Hx Eczema, Denies Hx Psoriasis Psychiatric Medical History: Reports: Hx Depression Traumatic Medical History: Denies: Hx Traumatic Brain Injury Infectious Medical History: Reports: Hx HIV - noncompliant with meds. Denies: Hx Hepatitis Past Surgical History: Reports: Hx Orthopedic Surgery - bilateral amputation, R BKA, L AKA, Hx Vascular Surgery - IVC filter, thrombectomy 05/18/2018 left arm, Other - Tunnel graft right axillary femoral bypass, dialysis fistula LUE - Immunizations Immunizations up to date: Yes Hx Diphtheria, Pertussis, Tetanus Vaccination: Yes Hx Pneumococcal Vaccination: 07/21/10 Review of Systems - Review of Systems Constitutional: No symptoms reported EENT: No symptoms reported Cardiovascular: No symptoms reported Respiratory: Short of breath Gastrointestinal: No symptoms reported Genitourinary: No symptoms reported Male Genitourinary: No symptoms reported Musculoskeletal: No symptoms reported Skin: No symptoms reported Hematologic/Lymphatic: No symptoms reported Neurological/Psychological: No symptoms reported -: Yes All other systems reviewed and negative Physical Exam - Vital signs Vitals: Resp Pulse Ox 19 100 06/01/20 06:40 06/01/20 06:40 - Notes Notes: CONSTITUTIONAL [Vital signs reviewed, Patient is on BiPAP and appears to be tolerating it well, Alert and oriented X 3, ] HEAD [Atraumatic, Normocephalic.] EYES [Eyes are normal to inspection, No discharge from eyes, Extraocular muscles intact, Sclera are normal, Conjunctiva are normal.] ENT [External ears normal to inspection, Nose examination normal, ] NECK [Normal ROM, No jugular venous distention, No meningeal signs, no carotid bruit.] RESPIRATORY CHEST [Chest is nontender, Breath sounds normal, No respiratory distress.] CARDIOVASCULAR [RRR, No murmurs, Normal S1 S2, No rub, No gallop.] ABDOMEN [Abdomen is nontender, No pulsatile masses, No other masses, Bowel sounds normal, No distension, No peritoneal signs, No hernias.] BACK [There is no CVA Tenderness, There is no tenderness to palpation, Normal inspection.] UPPER EXTREMITY [Upper extremity exam is significant for a left forearm AV fistula that has a palpable thrill and audible bruit, No cyanosis, No clubbing, No edema,] LOWER EXTREMITY Lower extremity exam is significant for a left AKA and a right BKA] NEURO [No focal motor deficits, No focal sensory deficits, Speech normal.] SKIN [Skin is warm, Skin is dry, Skin is normal color.] PSYCHIATRIC Anxious affect. ] Course - Re-evaluation Re-evalutation: 06/01/20 10:40 Patient was taken off of BiPAP and had O2 by nasal cannula at 1 L. Patient has a person in the room that is ready to take him to dialysis but he states he is scared he is not going to make it because he believes he needs to be on oxygen at this time. This MD turned off the 1 L of oxygen by nasal cannula. The patient continued to talk in full sentences and maintained a O2 sat of 98% on room air. The person in the room that is going to transport patient stated "he is just really scared and needs something for his nerves." The patient apparently agreed with his sedating "if you will just give me something for my nerves doc, I'll go to dialysis." This MD ordered 1 mg Ativan IV for the patient. While I do see signs of anxiety, I do not see any evidence consistent with hypoxia or actual respiratory distress. I believe the patient is stable and to be discharged to be taken to his dialysis appointment at 11:00 by private vehicle. All questions were answered prior to discharge. Emergency signs and symptoms, reasons to return to the emergency department discussed with patient and person in the room providing transportation. - Vital Signs Vital signs: Temp Pulse Resp BP Pulse Ox 20 187/97 H 100 06/01/20 10:01 06/01/20 10:01 06/01/20 10:01 - EKG Interpretation by Me Additional EKG results interpreted by me: 06/01/20 09:31 EKG obtained on 06/01/2020 at 0707 hrs. was interpreted by this MD. Findings sinus rhythm, rate 89, LAD is present, PA interval appears to be within normal limits, P waves preceding QRS complexes, there is a nonspecific intraventricular delay present, QTC is 473, there are no obvious patterns of ST segment elevation, depression, reciprocal changes seen to suggest acute myocardial ischemia or infarction. When compared to prior EKG from earlier this morning, 06/01/2020 at 0234 hrs., no significant changes seen. Impression: Sinus rhythm with LAD, nonspecific intraventricular conduction delay and nonspecific ST segments. Discharge - Discharge Clinical Impression: Anxiety about health Condition: Stable Disposition: HOME, SELF-CARE Additional Instructions: Return to the Emergency Department without delay if any worse. Be certain to go directly to [facility] upon discharge for your dialysis appointment. HOME CARE INSTRUCTIONS & INFORMATION: Thank you for choosing us for your medical needs. We hope you're satisfied with the care you received. After you leave, you must properly care for your problem and, at the same time, observe its progress. Any condition can change. Some illnesses can change rapidly over hours or days. If your condition worsens, return to the Emergency Department or see your physician promptly. ABOUT YOUR X-RAYS AND EKG'S: If you had an EKG or X-rays taken, they have been read by the Emergency Physician. The X-rays and EKG's will also be read by a Radiologist or Information And Referral Director within 24 hours. If discrepancies are noted, you will be notified by telephone. Please be certain the ED has a correct telephone number & address where you can be reached. Also, realize that some fractures or abnormalities do not show up on initial X-rays. If your symptoms continue, see your physician. ABOUT YOUR LABORATORY TEST: If you had laboratory tests, the results have been reviewed by the Emergency Physician. Some test results (for example cultures) may not be available for several days. You will be contacted if any test result shows you need additional treatment. Please be certain the ED has a correct telephone number and address where you can be reached. ABOUT YOUR MEDICATIONS: You will receive instructions on how to take your medicine on the prescription label you receive. Additional information may be provided by the Pharmacy. If you have questions afterwards, call the ED for clarification or further instructions. Some prescribed medications may cause drowsiness. Do not perform tasks such as driving a car or operating machinery without consulting your Pharmacist. If you feel you need a refill of pain medication, your condition will need re-evaluation. Please do not call for a refill of any medication. ABOUT YOUR SIGNATURE: Signature of this document acknowledges to followin. Understanding that you received emergency treatment and that you may be released before al medical problems are known or treated. Please be certain the ED has a correct phone number & address where you can be reached. 2. Acknowledgement that you will arrange for follow-up care as recommended. 3. Authorization for the Emergency Physician to provide information to your follow-up Physician in order to maximize your care. AT ANY TIME, IF YOUR SYMPTOMS CHANGE SIGNIFICANTLY OR WORSEN OR YOU DEVELOP NEW SYMPTOMS, RETURN TO THE EMERGENCY DEPARTMENT IMMEDIATELY FOR RE-EVALUATION. OUR GOAL IS TO PROVIDE EXCELLENT MEDICAL CARE! WE HOPE THAT WE HAVE MET YOUR EXPECTATIONS DURING YOUR EMERGENCY DEPARTMENT VISIT AND THAT YOU FEEL YOU HAVE RECEIVED EXCELLENT CARE! Referrals: LUIS CROW MD [Primary Care Provider] - Follow up as needed
[2020-06-01 10:06] VITALS: BP 187/97
[2020-06-01] MEDS ORDERED: LORAZEPAM INJ 2 MG/1 ML VIAL IV ONE (10:39)
[2020-06-01] MEDS ORDERED: IPRATROPIUM/ALBUTEROL 0.5-2.5 MG/3 ML AMPUL NEB ONE (12:17)
--- NOTE | 2020-06-02 00:33 | EKG REPORT ---
SEVERITY:- ABNORMAL ECG - SINUS RHYTHM NONSPECIFIC IVCD WITH LAD LEFT VENTRICULAR HYPERTROPHY : Confirmed by: Beulah Storm 02-Jun-2020 00:33:01
--- OUTSIDE RECORDS SUMMARY | 2020-06-02 14:59 | XMS REPORT ---
:1955 Author Organization [facility] Address [facility] [address] [place] [address] Care Team Providers Name Role Phone PCP, [...] Date Date Treatment Clinician Date Abdominal Abdominal [id number] Active 2020-02-10 Overview: aorta aorta 02-09 17:16:13 subacut e thrombosis thrombosis 00:00: in trarena 00 l abdomina l aortic occlusio n . 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 Risk Factor: IVDU, MSM. Pansensi t rafael genotype in 2003. ART hx- 1999: Epivir, Zerit, Viramune 2003: Videx, Kaletra, Zerit 2007: Kaletra and Truvada 2012: Atripla 2012:Slim e tra and Truvada Last Assessme n t & Plan : -current l y taking abacavir and dolutegr a vir Hypertensio Hypertensio 06417873 Active 2020-02-10 Overview: n goal BP n goal BP 02-09 17:16:13 Pat ient (blood (blood 00:00: is pressure) < pressure) < 00 currently 130/80 130/80 taking amlodipi n e-benazo p ril as his home regimen. Tobacco Tobacco 28932192 Active 2020-02-10 Over view: dependency dependency 02-09 [...] -nicotin e patch in place PVD PVD 91062953 Active 2020-02-10 Over view: (peripheral (peripheral 02-09 17:16:13 S/p vascular vascular 00:00: bilate ral disease) disease) 00 amputa marilu ns (R-BK A and L-AKA). 04/27/13 Seen by vascular surgery at [facility] with diagnosi s of left hand ischemia . Pletal and diagnost i c studie s ordered. Last Assessme n t & Plan : Thrombos i s of bilatera l poplitea l arteries in setting of cocaine use June 1999. Bilatera l BKA (Kotwal) early July 1999. Bronchitis Bronchitis 99485169 Active 2020-02-10- 17:16:13 00:00: 00 Paroxysmal Paroxysmal 54026546 Active 2020-02-10 atrial atrial 1-10 17:16:13 fibrillatio fibrillatio 00:00: n n 00 Ischemic Ischemic 67868509 Active 2018-072020-02-10 colitis colitis - 17:16:13 00:00: 00 End-stage End-stage 90026882 Active 2018-072020-02-10 Overview: renal renal 0-12 17:16:13 Last disease on disease on 00:00: As sessmen hemodialysi hemodialysi 00 t & Plan: s s -complet e d a full session yesterda y . -consult Nephrolo g y for hemodial y sis. Thi s can be done in am. Noncomplian Noncomplian 35871412 Active 2020-02-10 ce ce 12-10 17:16:13 00:00: 00 Other Other 40217473 Active 2017-072020-02-10 Over view: pulmonary pulmonary 09-02 17:16:13 On embolism embolism 00:00: Chroni c without without 00 Coumadin acute cor acute cor ther apy pulmonale, pulmonale, unspecified unspecified chronicity chronicity Amputation Amputation 09411713 Active 2017-072020-02-10 Overview: of both of both 0 17:16:13 10/22/18 lower lower 00:00: never extremities extremities 00 followed through with Bashir d ; using someone Celect i r; order given to get his own. 05/04/18 - face to face for Bashir goode Cardiomyopa Cardiomyopa 76612377 Active 2017-072020-02-10 Overview: thy, thy, 0-05 17:16:13 Last hypertensiv hypertensiv 00:00: Assessmen e, with e, with 00 t & Plan : heart heart -euvolem i failure failure c currentl y , withou t edema noted on CT chest - resume diuretic - continue imdur/hy d ralazine combo an d continue to hold beta gregorio due to cocaine abuse Substance Substance 70886615 Active 2020-02-10 Overview: use use - 17:16:13 Current ly disorder disorder 00:00: report s 00 no other use except cigarett e s. Last Assessme n t & Plan : - check urine drug screen Chronic Chronic 59350506 Active 2020-02-10 Over view: systolic systolic 04-12 17:16:13 Hospi nancy (congestive (congestive 00:00: zation in ) heart ) heart e failure failure ptember 2014 in [facility] . Echocard i ogram done, systolic dysfunct i on,07/24 diastoli c dysfunct i on, 35-40% EF. 03/21/15 Lesixcan cardioli t e strss test: Normal EKG and hemodyna m ic response to IV Lexiscan COPD COPD 37516060 Active 2020-02-10 Over view: (chronic (chronic 2-06 17:16:13 Uses QVAR obstructive obstructive 00:00: daily and pulmonary pulmonary 00 Vent eloise disease) disease) prn [facility] Assessme n t & Plan : - no wheezes - resume home maintena n ce inhalers and bronchod i lators a s needed Hypercoagul Hypercoagul 86785936 Active 2020-02-10 Overview: able state able state [...] AB CLASS I (test code = 0 17615883) PERCENT RELATIVE AB CLASS II (test code = TU 84917776) DILUTION (test code = 91502743) 1:1 METHOD AB (test code = 98489064) Flow Cytometry TEST DATE AB (test code = 55679128) 20200215 SAMPLE DATE (test code = 56026622) 20200210 HLA COMMENTS (test code = 43412384) Flow Screen DE: TU=NO ACCURA TE PRA PERCENTAGE CAN BE DETERMINED Disclaimer #1 (test code = 17936569) HLA Antibody Specificity Class [id number] 16:31:00 Test Item Value Reference Range Comments CPRA CLASS II (test code = 39235846) 0 SPEC CII AB (test code = 22701716) SEE COMMENT DILUTION (test code = 25937038) 1:1 METHOD AB (test code = 21305773) LUMINEX TEST DATE AB (test code = 08822538) 20200214 SAMPLE DATE (test code = 69190531) 20200210 HLA COMMENTS (test code = 72489826) Disclaimer #2 (test code = 39453452) HLA Class I Typing Low [id number] 16:45:00 Test Item Value Reference Range Comments HLA A LR ALLELE 1 (test code = 03584993) A*03:01 HLA A* LR ALLELE 2 (test code = 14525345) A*30:02 HLA B LR ALLELE 1 (test code = 17564384) B*08:01 HLA B LR ALLELE 2 (test code = 89351498) B*52:01 HLA C LR ALLELE 1 (test code = 98628089) C*07:01 HLA C LR ALLELE 2 (test code = 07235001) C*16:01 METHOD TYP (test code = 28085720) NGS HLA A LR ALLELE 1 SEROLOGICAL EQUIVALENT (test A3 code = 26005659) HLA A LR ALLELE 2 SEROLOGICAL EQUIVALENT (test A30 code = 83644557) HLA B* LR ALLELE 1 SEROLOGICAL EQUIVALENT (test B8 code = 54440394) HLA B LR ALLELE 2 SEROLOGICAL EQUIVALENT (test B52 code = 03806687) HLA BW LR ALLELE 1 (test code = 17568591) Bw6 HLA BW LR ALLELE 2 (BKR) (test code = 50856894) Bw4 HLA C LR ALLELE 1 SEROLOGICAL EQUIVALENT (test Cw7 code = 77702224) HLA C LR ALLELE 2 SEROLOGICAL EQUIVALENT (test Cw16 code = 87293910) Patient Type (test code = 03571485) RECIPIENT SAMPLE SOURCE (test code = 37501530) BLOOD SAMPLE DATE (test code = 48283475) 20200210 HLA COMMENTS (test code = 98763500) HLA Class II Typing Low [id number] 16:45:00 Test Item Value Reference Range Comments HLA DRB1 LR ALLELE 1 (test code = 84370148) DRB1*03:01 HLA DRB1 LR ALLELE 2 (test code = 90867394) DRB1*11:01 HLA DRB3 LR ALLELE 1 (test code = 71939673) DRB3*01:01 HLA DRB3 LR ALLELE 2 (test code = 16468250) DRB3*02:02 HLA DQA1 LR ALLELE 1 (test code = 92297727) DQA1*01:02 HLA DQA1 LR ALLELE 2 (test code = 47975368) DQA1*05:01 HLA DQB1 LR ALLELE 1 (test code = 04951855) DQB1*02:01 HLA DQB1 LR ALLELE 2 (test code = 74466494) DQB1*06:02 HLA DPA1 LR ALLELE 1 (test code = 93594044) DPA1*02:01 HLA DPA1 LR ALLELE 2 (test code = 60208266) DPA1*02:02 HLA DPB1 LR ALLELE 1 (test code = 26222677) DPB1*01:01 HLA DPB1 LR ALLELE 2 (test code = 09508507) DPB1*- METHOD TYP (test code = 59296470) NGS HLA-DRB1 LR ALLELE 1 SEROLOGICAL EQUIVALENT (test DR17 code = 86098917) HLA DRB1 LR ALLELE 2 SEROLOGICAL EQUIVALENT (test DR11 code = 35442068) HLA DRB3 LR ALLELE 1 SEROLOGICAL EQUIVALENT (test DR52 code = 02478855) HLA DRB3 LR ALLELE 2 SEROLOGICAL EQUIVALENT (test DR52 code = 02201480) HLA DQB1* LR ALLELE 1 SEROLOGICAL EQUIVALENT DQ2 (test code = 91352913) HLA DQB1* LR ALLELE 2 SEROLOGICAL EQUIVALENT DQ6 (test code = 76879480) HLA DPB1 LR ALLELE 1 SEROLOGICAL EQUIVALENT (test DP1 code = 19843846) HLA DPB1* LR ALLELE 2 SEROLOGICAL EQUIVALENT DP- (test code = 97207513) Patient Type (test code = 64738158) RECIPIENT SAMPLE SOURCE (test code = 20312069) BLOOD SAMPLE DATE (test code = 16434744) 20200210 HLA COMMENTS (test code = 83513766) Cytomegalovirus (CMV) Antibody, [id number] 16:23:00 Test Item Value Reference Range Comments Cytomegalovirus (CMV) Antibody, IGG (test code = Positive Negative 43663409) CLEMENTE (test code = CLEMENTE) Lab Interpretation (test code = 52793-0) Abnormal Cytomegalovirus (CMV) Antibody, [id number] 16:16:00 Test Item Value Reference Range Comments Cytomegalovirus (CMV) Antibody, IGM (test code = Positive Negative 89759350) CLEMENTE (test code = CLEMENTE) Lab Interpretation (test code = 18062-8) Abnormal Yamileth Springer Virus [id number] 15:47:00 Test Item Value Reference Range Comments EBV Ab/VCA IgG (test code = 18001983) Positive Negative EBV Ab/VCA IgM (test code = 19072235) Negative Negative EBV Ab/EBNA (test code = 26688749) Positive Negative EBV Ab/EA IgG (test code = 20140035) Negative Negative Lab Interpretation (test code = 99881-1) Abnormal Varicella Zoster antibody, [id number] 15:11:00 Test Item Value Reference Range Comments Varicella-Zoster Antibody, IGG (test code = Positive Posi tive 61547-3) CLEMENTE (test code = CLEMENTE) Lab Interpretation (test code = 18632-3) Normal Rubeola Antibodies, [id number] 07:36:00 Test Item Value Reference Range Comments Rubeola Antibodies, IgG >300.0 Immune >16.4 AU/mL (test code = 89739880) Negative <13.5 Equivocal 13.5 - 16.4 Positiv e >16.4 Presence of antibodies to Rubeola is pr esumptive evidence of immu nity except when acute infec tion is suspected. CLEMENTE (test code = CLEMENTE) Mumps Antibodies, IgG [id number] 07:36:00 Test Item Value Reference Range Comments Mumps IgG Antibody (test code 239 AU/mL Immune >10.9 = 53541543) Negative <9.0 Equivocal 9. 0 - 10.9 Posit rafael >10.9 A positi ve result generally indica fabiola past exposure to Mump s virus or previous vaccina tion. CLEMENTE (test code = CLEMENTE) HIV-1 And HIV-2 Antibody & [id number] 13:40:00 Test Item Value Reference Range Comments HIV 1&2 Antibody/Antigen (test code = Reactive NonReactiv e 45252-3) HIV Antibody (test code = 77182-3) HIV-1 POSITIVE (none) CLEMENTE (test code = CLEMENTE) Lab Interpretation (test code = 09981-3) Abnormal Hepatitis A Antibody, [id number] 11:36:00 Test Item Value Reference Range Comments Hepatitis A Virus, Antibody (test code = 03524-9) Reactive NonReactive Lab Interpretation (test code = 15263-4) Abnormal HCV ANTIBODY TESTING WITH REFLEX TO VIRAL LOAD [id number] 11:35:00 Test Item Value Reference Range Comments Hepatitis C Virus Antibody (test code = 70733-0) NonReactive NonReactive Lab Interpretation (test code = 93385-5) Normal Hepatitis B Surface [id number] 11:17:00 Test Item Value Reference Range Comments Hepatitis B Surface Antibody (test code = 22013-0) Reactive NonReactive Hepatitis B Surface Antibody Quant (test code = >1000 mIU/mL 35542718) CLEMENTE (test code = CLEMENTE) Lab Interpretation (test code = 64235-4) Abnormal Hepatitis B Surface [id number] 11:16:00 Test Item Value Reference Range Comments Hepatitis B Surface Antigen (test code = 5195-3) NonReactive NonReactive Lab Interpretation (test code = 31237-0) Normal Type And [id number] 10:08:00 Test Item Value Reference Range Comments ABO RH TYPE (test code = 882-1) AB Positive Antibody Screen (test code = 890-4) Negative Specimen Outdate (test code = 28126672) 02-13-2020 23:59 Prostate Specific Antigen (PSA), [id number] 09:51:00 Test Item Value Reference Range Comments PSA (Prostate Specific 6.05 ng/mL <=2.99 [facility] [place] PSA Antigen), Total (test code = Scr [...] consider screeni ng every two years Access hoohbe Total-PSA Method : The measured value o f this analyte can vary depending upon the testing procedure used. Values det ermined on patient samples by differing testing procedur es cannot be directly compare d with one another, and cou ld be cause of erroneous med ical interpretation. Lab Interpretation (test code Abnormal = 64574-7) Prostate Specific Antigen (PSA), [id number] 09:51:00 Test Item Value Reference Range Comments PSA (Prostate Specific 6.05 ng/mL <=2.99 [facility] [place] PSA Antigen), Total (test code = Scr [...] interpretation. Lab Interpretation (test code Abnormal = 00739-0) [id number] 09:37:00 Test Item Value Reference Range Comments Albumin (test code = 1751-7) 3.2 g/dL 3.5-4.8 Lab Interpretation (test code = 84245-6) Abnormal [id number] 09:37:00 Test Item Value Reference Range Comments Creatinine (test code = 2160-0) 7.1 mg/dL 0.6-1.3 Glomerular Filtration Rate 8 mL/min/1.73sq m Inter pretive Ranges for (eGFR) (test code = 38119-7) eG FR(CKD-EPI): eGFR: > 60 mL/min/1.73 sq [...] ysis. Lab Interpretation (test code = Abnormal 20787-4) [id number] 09:37:00 Test Item Value Reference Range Comments Albumin (test code = 1751-7) 3.2 g/dL 3.5-4.8 Lab Interpretation (test code = 26454-4) Abnormal [id number] 09:37:00 Test Item Value Reference Range Comments Creatinine (test code = 2160-0) 7.1 mg/dL 0.6-1.3 Glomerular Filtration Rate 8 mL/min/1.73sq m Inter pretive Ranges for (eGFR) (test code = 68715-4) eG FR(CKD-EPI): eGFR: > 60 mL/min/1.73 sq [...] ysis. Lab Interpretation (test code = Abnormal 18240-9) REQUEST TO STORE OUTSIDE [id number] 07:11:40Please refer to the appropriate PACS to [...] Clinicians Facility Department ID 2020-02-14 2020-02-14 Outpatient [facility] [id number] 00:00:00 00:00:00 2020-02-10 2020-02-10 Outpatient [facility] [id number] 07:44:30 17:04:01 2020-02-10 2020-02-10 Outpatient [facility] [id number] 07:46:05 17:03:36 2020-02-10 2020-02-10 [id number] 07:42:52 17:01:27 DAVID 2020-02-10 2020-02-10 Outpatient TREV EMERY, [facility] [id number] 07:42:12 16:49:06 2B2C 2020-02-10 2020-02-10 Outpatient VINAY [facility] [id number] 08:47:11 08:47:11 OWEN 2020-02-10 2020-02-10 Outpatient VINAY [facility] [id number] 08:31:31 08:46:00 OWEN 2020-02-10 2020-02-10 Outpatient FOSTER [facility] [id number] 07:43:34 07:43:34 DOMINIK 2020-02-10 2020-02-10 Outpatient CARLEEN CHAMBERS [facility] [id number] 07:41:05 07:41:05 ELENITA 2019-09-28 2019-09-28 Outpatient [facility] [id number] 00:00:00 00:00:00 2019-08-16 2019-08-16 Outpatient CARLEEN LICEA [facility] [id number] 10:42:20 23:59:00 OWEN 2019-07-30 2019-07-30 Outpatient [facility] [id number] 00:00:00 00:00:00 2019-07-07 2019-07-07 Outpatient [facility] [id number] 00:00:00 00:00:00 2018-04-06 2018-04-08 Inpatient 1 SALARY, [facility] [id number] 07:43:00 18:00:00 ZAC Immunizations Ordered Immunization [...]
== END 2020-06-01 10:55 | disposition home or self-care (01) ==
LOC: ER 06:37
DX: F41.9 Anxiety disorder, unspecified (principal); R06.02 Shortness of breath; I13.2 Hypertensive heart and chronic kidney disease with heart failure and with stage 5 chronic kidney disease, or end stage renal disease; E11.22 Type 2 diabetes mellitus with diabetic chronic kidney disease; N18.6 End stage renal disease; I50.9 Heart failure, unspecified; Z99.2 Dependence on renal dialysis; Z79.4 Long term (current) use of insulin
CPT/HCPCS: 93005; 99284; 96374; 93010; J2060

== ENCOUNTER 2020-06-01 12:14 | Emergency (ER) | payer MEDICARE, MEDICAID ==
[2020-06-01 12:36] LABS: ABSOLUTE BASOPHILS # (AUTO) 0.1 10^3/uL (0.0-0.2); ABSOLUTE EOSINOPHILS # (AUTO) 0.1 10^3/uL (0.0-0.6); ABSOLUTE LYMPHOCYTES (AUTO) 2.5 10^3/uL (0.5-4.7); ABSOLUTE MONOCYTES (AUTO) 0.8 10^3/uL (0.1-1.4); ABSOLUTE NEUT (AUTO) 10.5 10^3/uL (1.7-8.2); BASOPHILS % (AUTO) 0.4 % (0-2); EOSINOPHILS % (AUTO) 0.8 % (0-6); HEMATOCRIT 33.7 % (37.9-51.0); MEAN CORPUSCULAR HEMOGLOBIN 31.5 pg (27.0-33.4); MEAN CORPUSCULAR HGB CONC 32.7 g/dL (32.0-36.0); MEAN CORPUSCULAR VOLUME 97 fl (80-97); MONOCYTES % (AUTO) 5.5 % (3-13); PLATELET COUNT 289 10^3/uL (150-450); SEGMENTED NEUTROPHILS % (AUTO) 75.3 % (42-78); TOTAL CELLS COUNTED % (AUTO) 100 %; WHITE BLOOD COUNT 13.9 10^3/uL (4.0-10.5)
[2020-06-01 12:39] LABS: VENOUS BLOOD BASE EXCESS -8.1 mmol/L; VENOUS BLOOD HCO3 20.7 mmol/L (20-32); VENOUS BLOOD PCO2 55.7 mmHg (35-63)
[2020-06-01 12:41] LABS: VENOUS BLOOD PH 7.19 (7.30-7.42)
--- NOTE | 2020-06-01 12:55 | RADIOLOGY REPORT (SQ) ---
EXAM DESCRIPTION: CHEST SINGLE VIEW IMAGES COMPLETED DATE/TIME: 06/01/2020 12:40 pm REASON FOR STUDY: chest pain COMPARISON: 06/01/2020. EXAM PARAMETERS: NUMBER OF VIEWS: One view. TECHNIQUE: Single frontal radiographic view of the chest acquired. RADIATION DOSE: NA LIMITATIONS: None. FINDINGS: LUNGS AND PLEURA: Mild basilar atelectasis/ scarring. No infiltrates, masses or pneumotho rax. No pleural effusion. MEDIASTINUM AND HILAR STRUCTURES: No masses. Contour normal. HEART AND VASCULAR STRUCTURES: Heart upper limits of normal in size. Normal vasculature. BONES: No acute findings. HARDWARE: Clips in the upper right chest. OTHER: No other significant finding. IMPRESSION: NO ACUTE RADIOGRAPHIC FINDING IN THE CHEST. TECHNICAL DOCUMENTATION: JOB ID: [id number] 2010 [employer]- All Rights Reserved Reading location - IP/workstation name: [email or web address]
[2020-06-01 13:01] LABS: ALBUMIN 4.3 g/dL (3.5-5.0); ALKALINE PHOSPHATASE 72 U/L (38-126); ANION GAP 18 (5-19); ASPARTATE AMINO TRANSFERASE 120 U/L (17-59); BILIRUBIN,DIRECT 0.8 mg/dL (0.0-0.4); BILIRUBIN,TOTAL 0.9 mg/dL (0.2-1.3); BLOOD UREA NITROGEN 72 mg/dL (7-20); CALCIUM 7.8 mg/dL (8.4-10.2); CARBON DIOXIDE 19 mmol/L (22-30); CHLORIDE 101 mmol/L (98-107); CREATINE KINASE 153 U/L (55-170); GLUCOSE 163 mg/dL (75-110); TOTAL PROTEIN 7.2 g/dL (6.3-8.2)
[2020-06-01 13:12] LABS: CREATINE KINASE MB 2.44 ng/mL (<4.55)
[2020-06-01] MEDS ORDERED: SODIUM BICARBONATE 8.4% INJ 50 MEQ/50 ML DISP.SYRIN IV ONE (13:13)
[2020-06-01] MEDS ORDERED: SODIUM POLYSTYRENE SULFONATE 15 GM/60 ML PO ONE (13:13)
[2020-06-01] MEDS ORDERED: IPRATROPIUM/ALBUTEROL 0.5-2.5 MG/3 ML AMPUL NEB ONE (13:13)
[2020-06-01] MEDS ORDERED: CALCIUM GLUCONATE 1000 MG/10 ML INJ IV ONE (13:13)
[2020-06-01 13:14] LABS: TROPONIN I 0.072 ng/mL
[2020-06-01] MEDS ORDERED: INSULIN REG, HUMAN 100 UNIT/ML 3 ML VIAL (PYX) IV ONE (13:23)
[2020-06-01] MEDS ORDERED: DEXTROSE 50%-WATER 25 GM/50 ML DISP.SYRIN IV ONE (13:23)
[2020-06-01 13:30] LABS: INTERNATIONAL RATION (INR) 1.44; PROTHROMBIN TIME 17.7 SEC (11.4-15.4)
[2020-06-01 13:33] LABS: D-DIMER 1.04 ug/mL (0.00-0.50)
[2020-06-01 14:05] LABS: ARTERIAL BLOOD BASE EXCESS -6.9 mmol/L; ARTERIAL BLOOD H2CO3 0.99 mmol/L (1.05-1.35); ARTERIAL BLOOD HCO3 17.8 mmol/L (20-24); ARTERIAL BLOOD O2 SATURATION 93.4 % (94-98); ARTERIAL BLOOD PCO2 32.9 mmHg (35-45); ARTERIAL BLOOD PH 7.35 (7.35-7.45); ARTERIAL BLOOD PO2 69.5 mmHg (80-100); ARTERIAL BLOOD TOTAL CO2 18.8 mmol/L (23-27)
--- NOTE | 2020-06-01 14:05 | ER Document Report ---
Entered by SEBASTIAN MCCALL SCRIBE 06/01/20 1256 Acting as scribe for:JORGE DAY MD ED Respiratory Problem - General Chief Complaint: Shortness Of Breath Stated Complaint: DIFFICULTY BREATHING Time Seen by Provider: 06/01/20 12:54 Primary Care Provider: LUIS CROW MD [Primary Care Provider] - Follow up as needed Mode of Arrival: Medic Information source: Patient, Emergency Med Personnel Notes: This 65 year old male patient with a history of HTN, HLD, CAD, CHF, PE/DVT on Coumadin, COPD and ESRD on HD (was M/W/F, currently T/TH/Sat) presents to the ED today via EMS with complaints of shortness of breath that started last night. Patient was last dialyzed on 05/29 and was supposed to switch dialysis to T/Th/Sat starting today at 11:00 AM; however, he did not got to his appointment because he was here for evaluation. This is the patient's third visit today for shortness of breath. He was first evaluated around 0200 this morning and then again around 0700. He was discharged both times with instructions to go to his dialysis appointment at 1100 after he tolerated being off BiPAP while maintaining O2 sats in the mid to high 90s. When asked if his breathing is better with the BiPAP, patient nods his head. Denies any chest pain. The patient was prescribed doxycycline for bronchitis on 05/28/2020. TRAVEL OUTSIDE OF THE [place] IN LAST 30 DAYS: No - Related Data Allergies/Adverse Reactions: calcitriol Allergy (Verified 06/01/20 01:54) itching Past Medical History - General Information source: [facility] Records - Social History Smoking Status: Unknown if Ever Smoked Smoking Education Provided: No Family History: Reviewed & Not Pertinent, CAD, CVA, DM, Hyperlipidemia, Hypertension, Malignancy - Past Medical History Cardiac Medical History: Reports: Hx Congestive Heart Failure - EF is 25-30% in 01/2020, + diastolic dysfunction, Hx Coronary Artery Disease, Hx DVT, Hx Heart Attack, Hx Hypercholesterolemia, Hx Hypertension, Hx Peripheral Vascular Disease, Hx Pulmonary Embolism Pulmonary Medical History: Reports: Hx Bronchitis, Hx COPD, Hx Pneumonia, Hx Respiratory Failure Neurological Medical History: Endocrine Medical History: Reports: Hx Diabetes Mellitus Type 2 - insulin dependent Renal/ Medical History: Reports: Hx End Stage Renal Disease, Hx Hemodialysis GI Medical History: Reports: Hx Gastroesophageal Reflux Disease Musculoskeletal Medical History: Reports Hx Arthritis, 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 bilat AKA, Reports Hx Musculoskeletal Trauma Psychiatric Medical History: Reports: Hx Depression Infectious Medical History: Reports: Hx HIV - noncompliant with meds Past Surgical History: Reports: Hx Orthopedic Surgery - bilateral amputation, R BKA, L AKA, Hx Vascular Surgery - IVC filter, thrombectomy 05/18/2018 left arm, Other - Tunnel graft right axillary femoral bypass, dialysis fistula LUE - Immunizations Immunizations up to date: Yes Hx Diphtheria, Pertussis, Tetanus Vaccination: Yes Hx Pneumococcal Vaccination: 07/21/10 Review of Systems - Review of Systems Constitutional: No symptoms reported EENT: No symptoms reported Cardiovascular: See HPI. denies: Chest pain Respiratory: See HPI, Short of breath Gastrointestinal: No symptoms reported Genitourinary: No symptoms reported Male Genitourinary: No symptoms reported Musculoskeletal: No symptoms reported Skin: No symptoms reported Hematologic/Lymphatic: No symptoms reported Neurological/Psychological: No symptoms reported -: Yes All other systems reviewed and negative Physical Exam - Vital signs Vitals: Resp Pulse Ox 24 H 99 06/01/20 12:12 06/01/20 12:12 - General General appearance: Anxious - Patient appears anxious and is bobbing his head while sucking in deep breaths on BiPAP - HEENT Head: Normocephalic, Atraumatic Eyes: Normal Pupils: PERRL Mucous membranes: Dry - Respiratory Respiratory status: Other - Patient is 100% on BiPAP at this time; however, he is hyperventilating and breathing fast and deep Chest status: Nontender Breath sounds: Rhonchi - Mild, Wheezing - Mild Chest palpation: Normal - Cardiovascular Rhythm: Regular, Tachycardia Heart sounds: Normal auscultation Murmur: No Friction rub: No Gallop: None auscultated - Abdominal Inspection: Normal Distension: No distension Bowel sounds: Normal Tenderness: Nontender - Abdomen soft Organomegaly: No organomegaly - Back Back: Normal, Nontender - Extremities General upper extremity: Normal inspection General lower extremity: Other - Left AKA, Right BKA - Neurological Neuro grossly intact: Yes - Psychological Associated symptoms: Anxious - Skin Skin Temperature: Warm Skin Moisture: Dry Skin Color: Normal Course - Re-evaluation Re-evalutation: 06/01/20 13:33 The patient was evaluated during the global COVID-19 pandemic and that diagnosis was suspected/considered upon their initial presentation. Their evaluation, treatment and testing was consistent with current guidelines for patients who present with complaints or symptoms that may be related to COVID-19. 06/01/20 19:37 The patient had a CTA chest to exclude pulmonary embolus or other cause of his shortness of breath. It was an unremarkable study. An ABG done on BiPAP with FiO2 of 30% showed a pH of 7.35, PCO2 of 33, PO2 of 69.5 and O2 saturation 93.4% This was done after the patient received 1 amp of sodium bicarb. Just prior to sodium bicarb, I venous blood gas showed a pH of 7.19, PCO2 of 55.7 and this is very difficult to understand why his PCO2 was so high when he was severely acidotic yet his PCO2 went excessively low after he had sodium bicarb to help correct his acidosis. The patient was repeatedly asking nurse for Ativan for his nerves so he was given a dose to see if it would help calm him down, improve his breathing, and help with his poorly controlled blood pressure. 06/01/20 19:47 At this time the patient's pulse oximeter reading is 100% on room air. He will be given his blood pressure medications that he is missed today at this time and will consider discharge soon. 06/01/20 20:37 At this time the patient's pulse oximetry reading is 98 and 99%. I did order several of his blood pressure medications almost 1 hour ago but they were never given. He remains tachycardic and hypertensive. - Vital Signs Vital signs: Temp Pulse Resp BP Pulse Ox 97.5 F 28 H 194/105 H 100 06/01/20 17:50 06/01/20 16:00 06/01/20 15:46 06/01/20 16:00 - Laboratory Result Diagrams: 06/01/20 12:20 06/01/20 12:20 Laboratory results interpreted by me: 06/01/20 06/01/20 06/01/20 12:18 12:18 12:20 WBC 13.9 H RBC 3.50 L Hgb 11.0 L Hct 33.7 L RDW 15.0 H Absolute Neuts (auto) 10.5 H ESR 51 H PT D-Dimer Carbonic Acid ABG pCO2 ABG pO2 ABG HCO3 ABG Total CO2 ABG O2 Saturation VBG pH Potassium Carbon Dioxide BUN Creatinine Est GFR ( Amer) Est GFR (MDRD) Non-Af Glucose Calcium Ferritin 730.00 H Direct Bilirubin AST ALT Lactate Dehydrogenase 456 H 06/01/20 06/01/20 06/01/20 12:20 12:20 12:20 WBC RBC Hgb Hct RDW Absolute Neuts (auto) ESR PT 17.7 H D-Dimer 1.04 H Carbonic Acid ABG pCO2 ABG pO2 ABG HCO3 ABG Total CO2 ABG O2 Saturation VBG pH 7.19 L* Potassium 7.0 H* D Carbon Dioxide 19 L BUN 72 H Creatinine 12.39 H Est GFR ( Amer) 5 L Est GFR (MDRD) Non-Af 4 L Glucose 163 H Calcium 7.8 L Ferritin Direct Bilirubin 0.8 H AST 120 H ALT 141 H Lactate Dehydrogenase 06/01/20 13:38 WBC RBC Hgb Hct RDW Absolute Neuts (auto) ESR PT D-Dimer Carbonic Acid 0.99 L ABG pCO2 32.9 L ABG pO2 69.5 L ABG HCO3 17.8 L ABG Total CO2 18.8 L ABG O2 Saturation 93.4 L VBG pH Potassium Carbon Dioxide BUN Creatinine Est GFR ( Amer) Est GFR (MDRD) Non-Af Glucose Calcium Ferritin Direct Bilirubin AST ALT Lactate Dehydrogenase - Diagnostic Test Radiology reviewed: Image reviewed, Reports reviewed - CTA chest shows no PE, there is atelectasis or early infiltrate in the lingula. There is chronic vasculopathy, patient on hemodialysis. - EKG Interpretation by Me EKG shows normal: Sinus rhythm, [place], Intervals, QRS Complexes, ST-T Waves Rate: Tachycardia - 108 not urinate had been always a little [place]/QRS: RBBB, LAHB/LAFB Voltage: Consistent with LVH When compared to previous EKG there are: Changes noted Critical Care Note - Critical Care Note Total time excluding time spent on procedures (mins): 50 Comments: At least 50 minutes spent examining and evaluating the patient. Repeatedly putting orders in to manage his [id number] blood pressure. Evaluating and deciding how to work-up his multitude of complaints and conflicting lab data. Time spent reviewing prior history, particularly the 2 ER visits earlier the same day. Time spent discussing the patient with the lightning protection installer and getting dialysis started for the patient. Instituting emergency management of life-t hreatening hyperkalemia. Later evaluating and managing his anxiety and determining if his hypoxia remains a problem requiring admission or if he was stable for discharge. Discharge - Discharge Clinical Impression: Hyperkalemia, Chronic kidney disease with end stage renal failure on dialysis, Metabolic acidosis, Missed dialysis Dyspnea Qualifiers: Dyspnea type: shortness of breath Qualified Code(s): R06.02 - Shortness of breath Hypertension Qualifiers: Hypertension type: essential hypertension Qualified Code(s): I10 - Essential (primary) hypertension Condition: Stable Disposition: HOME, SELF-CARE Additional Instructions: Your electrolyte abnormalities were corrected with medication and dialysis today. You were given 1 dose of your isosorbide, carvedilol, nifedipine and hydralazine. You were given 2 doses of your clonidine. You should take the remainder of your medications that you were due to have today when you get home. The CT angiogram of your chest was negative for any significant abnormalities, specifically nothing that was contributing to your feeling of being short of ángel ath. Your oxygen levels were normal while you were resting and sleeping after you had finished dialysis. Follow-up with your primary care provider if you are not feeling better. RETURN TO THE EMERGENCY ROOM IF ANY NEW OR WORSENING SYMPTOMS. Referrals: LUIS CROW MD [Primary Care Provider] - Follow up as needed I personally performed the services described in the documentation, reviewed and edited the documentation which was dictated to the scribe in my presence, and it accurately records my words and actions.
[2020-06-01 14:07] LABS: ARTERIAL BLOOD FIO2 30%
[2020-06-01 14:15] LABS: C-REACTIVE PROTEIN < 5.0 mg/L (<10.0)
--- NOTE | 2020-06-01 15:12 | RADIOLOGY REPORT (SQ) ---
EXAM DESCRIPTION: CTA CHEST IMAGES COMPLETED DATE/TIME: 06/01/2020 2:34 pm REASON FOR STUDY: Acute dyspnea with clear chest x-ray COMPARISON: Multiple, most recent 02/27/2020 TECHNIQUE: CT scan of the chest performed using helical scanning technique with dynamic intravenous contrast injection. Images reviewed with lung, soft tissue and bone windows. Reconstructed coronal and sagittal MPR images reviewed. Additional 3 dimensional post-processing performed to develop Maximal Intensity Projection images (WA P). All images stored on PACS. All CT scanners at this facility use dose modulation, iterative reconstruction, and/or weight based d osing when appropriate to reduce radiation dose to as low as reasonably achievable (ALARA). [facility]: Dose Right [facility]: CareDose [facility]: Dose Right [facility]: Teradose 4D [facility]: [facility] CONTRAST TYPE AND DOSE: contrast/concentration: Isovue 350.00 mmol/ml; Total Contrast Delivered: 70. 0 ml; Total Saline Delivered: 37.7 ml RENAL FUNCTION: Hemodialysis. RADIATION DOSE: CT Rad equipment meets quality standard of care and radiation dose reduction techniq ues were employed. CTDIvol: 28.0 - 33.1 mGy. DLP: 1275 mGy-cm. . LIMITATIONS: None. FINDINGS: LUNGS AND PLEURA: Subsegmental bandlike scarring in the lower lobes. Subsegmental airspac e disease in the lingula most likely atelectasis. AORTA AND GREAT VESSELS: No aneurysm. HEART: No pericardial effusion. Cardiomegaly. PULMONARY ARTERIES: No emboli visualized in the main pulmonary arteries or the segmental branches. HILAR AND MEDIASTINAL STRUCTURES: No identified masses or abnormal nodes. HARDWARE: None in the chest. 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 Bilateral renal atrophy. THYROID AND OTHER SOFT TISSUES: Occluded right upper extremity to lower extremity bypass graft. BONES: No acute or significant finding. 3D MIPS: Confirm above findings. OTHER: No other significant finding. IMPRESSION: 1. No PE. 2. Atelectasis or early infiltrate in the lingula. 3. Chronic vasculopath on hemodialysis. COMMENT: Quality ID # [id number]: Final reports with documentation of one or more dose reduction techniques (e.g., Automated exposure control, adjustment of the mA and/or kV according to patient size, use of iterative reconstruction technique) TECHNICAL DOCUMENTATION: JOB ID: [id number] [employer]- All Rights Reserved Reading location - IP/workstation name: [email or web address]
[2020-06-01] MEDS ORDERED: HYDRALAZINE HCL INJ/PF 20 MG/1 ML SDV IV ONE ×2 (15:56→18:58)
--- NOTE | 2020-06-01 16:13 | PDOC CONSULTATION ---
Consultation Consult Date: 06/01/20 Provider Consulted: Celeste ARIAS Consult reason:: ESRD with SOB for urgent HD. History of Present Illness Admission Date/PCP: LUIS CROW MD History of Present Illness: Tad Peraza is a 65 year old male patient well known to me with a history of ESRD on HD in the background of HIV, HTN, CAD, CHF, PE/DVT on Coumadin, COPD and non compliance presents to the ED today via EMS with complaints of shortness of breath that started last night. Patient was last dialyzed on 05/29 and was supposed to switch dialysis to T/Th/Sat starting today at 11:00 AM at [place];but he did not got to his appointment because he was here for subacute onset of dyspnea. This is the patient's third visit today for shortness of breath. He was first evaluated around 0200 this morning and then again around 0700. He was discharged both times with instructions to go to his dialysis appointment at 1100 after he tolerated being off BiPAP while maintaining O2 sats in the mid to high 90s. He was just sent to [facility] dialysis where he was found to be in severe shortness of breath and decompensating in spite of being on 5 L by nasal cannula and therefore was transferred back to the ER. Chest x-ray is surprisingly unremarkable for any evidences of infiltrates or congestive heart failure. Therefore Dr. Daniel Kramer from ER discussed the possibilities and we thought we should rule him out for pulmonary embolism/Covid and he underwent a CT angiogram which was negative for pulmonary embolism. Patient is now being seen while undergoing urgent dialysis.He is not on BiPAP and is on nasal cannula and sitting up comfortably talking but he still says he gets worsening short of breath if he keeps on talking for a while. He denies any history of chest pains . No history of any fever or chills. He admits to a cough has been going on for the last couple of months. No history of any body aches. No history of any anosmia or loss of taste. Dialysis orders were reviewed with the treating dialysis nurse. Labs and medications were reviewed. His potassium has gone up from around 5 early this morning to 7 and therefore has been put on 1K bath for 2 hours followed by 2K. Past Medical History Cardiac Medical History: Reports: CHF-Diastolic, Coronary Artery Disease, DVT, Hyperlipidemia, Hypertension-primary, Myocardial Infarction, Peripheral Vascular Disease, Pulmonary Embolism Denies: Atrial Fibrillation Pulmonary Medical History: Reports: Bronchitis, Chronic Obstructive Pulmonary Disease (COPD), Pneumonia, Respiratory Failure Denies: Asthma, Sleep Apnea Neurological Medical History: Denies: Migraine, Seizures Endocrine Medical History: Reports: Diabetes Mellitus Type 2 - insulin dependent Denies: Diabetes Mellitus Type 1, Hyperthyroidism, Hypothyroidism Renal/ Medical History: Reports: End Stage Renal Disease, Hyperphosphatemia, Metabolic Acidosis, Secondary Hyperparathyroidism Denies: Hematuria GI Medical History: Reports: Gastroesophageal Reflux Disease Denies: Cirrhosis, Crohn's Disease, Hepatitis, Ulcerative Colitis Musculoskeltal Medical History: Reports: Arthritis Denies: Fibromyalgia Skin Medical History: Denies: Eczema, Psoriasis Psychiatric Medical History: Reports: Depression Traumatic Medical History: Denies: Traumatic Brain Injury Infectious Medical History: Reports: HIV - noncompliant with meds Past Surgical History Past Surgical History: Reports: Dialysis Access Surgery AVF, Orthopedic Surgery - bilateral amputation, R BKA, L AKA, Vascular Surgery - IVC filter, throm bectomy 05/18/2018 left arm, Other - Tunnel graft right axillary femoral bypass, dialysis fistula LUE Social History Smoking Status: Unknown if Ever Smoked Electronic Cigarette use?: No Frequency of Alcohol Use: None Hx Recreational Drug Use: Yes Drugs: Cocaine Hx Prescription Drug Abuse: No Family History Parental Family History Reviewed: Yes - Negative for ESRD Children Family History Reviewed: No Sibling(s) Family History Reviewed.: No Medication/Allergy Home Medications: Abacavir Sulfate [Abacavir 300 mg Tablet] 300 mg PO BID 08/22/19 Dolutegravir Sodium [Tivicay] 50 mg PO DAILY 08/22/19 Hydralazine HCl [Apresoline 10 mg Tablet] 10 mg PO Q12 08/22/19 Lamivudine [Epivir] 5 ml PO DAILY 08/22/19 Albuterol Sulfate [Ventolin Hfa 8 gm Mdi] 2 puff IH Q4HP PRN 10/20/19 Bupropion HCl [Bupropion HCl Sr] 150 mg PO Q12 01/20/20 Gabapentin [Neurontin 100 mg Capsule] 100 mg PO QHS 01/20/20 Nifedipine [Nifedipine ER] 120 mg PO DAILY 01/20/20 Atorvastatin Calcium [Lipitor 40 mg Tablet] 40 mg PO QHS 04/24/20 Clonidine HCl [Catapres 0.2 mg Tablet] 0.2 mg PO Q8 04/24/20 Furosemide [Lasix 80 mg Tablet] 80 mg PO BID 04/24/20 Isosorbide Mononitrate [Imdur 30 mg Tablet.er] 150 mg PO DAILY 04/24/20 Sevelamer Carbonate [Renvela] 2.4 gm PO MEALS 04/24/20 Warfarin Sodium 10 mg PO MOWEFR@0 04/24/20 Warfarin Sodium [Jantoven 4 mg Tablet] 8 mg PO SUTUTHSA@219904/24/20 Allergies/Adverse Reactions: calcitriol Allergy (Verified 06/01/20 01:54) itching Review of Systems Constitutional: PRESENT: anorexia, fatigue, weakness. ABSENT: chills, fever(s), headache(s) Nose, Mouth, and Throat: ABSENT: mouth pain, sore throat Cardiovascular: PRESENT: dyspnea on exertion. ABSENT: chest pain, edema, orthropnea, palpitations Respiratory: PRESENT: cough, dyspnea. ABSENT: hemoptysis Gastrointestinal: ABSENT: abdominal pain, bloating, coffee ground emesis, diarrhea, dysphagia, heartburn, hematemesis Genitourinary: ABSENT: hematuria Musculoskeletal: ABSENT: deformity, joint swelling Integumentary: ABSENT: lesions, pruritus, rash Neurological: ABSENT: abnormal movements, confusion, convulsions, focal weakness, frequent falls Hematologic/Lymphatic: ABSENT: easy bruising, lymphadenopathy Physical Exam Vital Signs: Temp Pulse Resp BP Pulse Ox 98.1 F 15 194/105 H 100 06/01/20 12:35 06/01/20 15:46 06/01/20 15:46 06/01/20 15:46 General appearance: PRESENT: mild distress Eye exam: PRESENT: EOMI, PERRLA. ABSENT: scleral icterus Ear exam: PRESENT: normal external ear exam Mouth exam: PRESENT: moist, neck supple Neck exam: ABSENT: lymphadenopathy, meningismus, tenderness, thyromegaly, tracheal deviation Respiratory exam: PRESENT: clear to auscultation ramila, decreased breath sounds. ABSENT: crackles Cardiovascular exam: PRESENT: +S1, +S2 GI/Abdominal exam: PRESENT: normal bowel sounds, soft. ABSENT: organomegaly, tenderness Neurological exam: PRESENT: alert, awake, oriented to person, oriented to place, oriented to time Psychiatric exam: PRESENT: appropriate affect Skin exam: ABSENT: cyanosis, erythema, mottled Results Laboratory Results: 06/01/20 12:20 06/01/20 12:20 06/01/20 06/01/20 06/01/20 12:18 12:20 12:20 WBC 13.9 H RBC 3.50 L Hgb 11.0 L Hct 33.7 L MCV 97 MCH 31.5 MCHC 32.7 RDW 15.0 H Plt Count 289 Seg Neutrophils % 75.3 Carbonic Acid HCO3/H2CO3 Ratio ABG pH ABG pCO2 ABG pO2 ABG HCO3 ABG O2 Saturation ABG Base Excess VBG pH VBG pCO2 VBG HCO3 VBG Base Excess FiO2 Sodium 138.3 Potassium 7.0 H* D Chloride 101 Carbon Dioxide 19 L Anion Gap 18 BUN 72 H Creatinine 12.39 H Est GFR ( Amer) 5 L Glucose 163 H Lactic Acid Calcium 7.8 L Magnesium Ferritin 730.00 H Total Bilirubin 0.9 AST 120 H Alkaline Phosphatase 72 C-Reactive Protein < 5.0 Total Protein 7.2 Albumin 4.3 06/01/20 06/01/20 06/01/20 12:20 12:20 12:20 WBC RBC Hgb Hct MCV MCH MCHC RDW Plt Count Seg Neutrophils % Carbonic Acid HCO3/H2CO3 Ratio ABG pH ABG pCO2 ABG pO2 ABG HCO3 ABG O2 Saturation ABG Base Excess VBG pH 7.19 L* VBG pCO2 55.7 VBG HCO3 20.7 VBG Base Excess -8.1 FiO2 Sodium Potassium Chloride Carbon Dioxide Anion Gap BUN Creatinine Est GFR ( Amer) Glucose Lactic Acid 1.4 Calcium Magnesium 1.8 Ferritin Total Bilirubin AST Alkaline Phosphatase C-Reactive Protein Total Protein Albumin 06/01/20 13:38 WBC RBC Hgb Hct MCV MCH MCHC RDW Plt Count Seg Neutrophils % Carbonic Acid 0.99 L HCO3/H2CO3 Ratio 17:1 ABG pH 7.35 ABG pCO2 32.9 L ABG pO2 69.5 L ABG HCO3 17.8 L ABG O2 Saturation 93.4 L ABG Base Excess -6.9 VBG pH VBG pCO2 VBG HCO3 VBG Base Excess FiO2 30% Sodium Potassium Chloride Carbon Dioxide Anion Gap BUN Creatinine Est GFR ( Amer) Glucose Lactic Acid Calcium Magnesium Ferritin Total Bilirubin AST Alkaline Phosphatase C-Reactive Protein Total Protein Albumin 06/01/20 06/01/20 12:20 12:20 Creatine Kinase 153 CK-MB (CK-2) 2.44 Troponin I 0.072 Impressions: Chest X-Ray 06/01/20 00:00 IMPRESSION: NO ACUTE RADIOGRAPHIC FINDING IN THE CHEST. Chest/Abdomen CTA 06/01/20 13:22 IMPRESSION: 1. No PE. 2. Atelectasis or early infiltrate in the lingula. 3. Chronic vasculopath on hemodialysis. Assessment & Plan - Diagnosis (1) SOB (shortness of breath) Plan: Patient is apparently clinically short of breath. However his chest x-ray is is not is not supporting any infiltrates features suggestive of congestive heart failure. Pulmonary embolism has been ruled out by negative CTA. One should entertain possibility of underlying Covid infection and serologies are pending. Patient currently undergoing dialysis like he could be having congestive heart failure even though is not supported radiologically or clinically. Monitor closely. (2) Hyperkalemia Plan: We will treat him with a 1K bath for 2 hours followed by 2K bath for now. Advised on compliance with dietary modifications. Monitor. (3) ESRD needing dialysis Plan: Patient currently undergoing supervised dialysis. He seems to be tolerating well. Blood pressure still high and see response to volume removal. Labs and medications were reviewed. Dialysis orders were reviewed with the treating dialysis nurse.Patient will be undergoing dialysis again tomorrow. (4) HIV (human immunodeficiency virus infection) Qualifiers: HIV symptom status: asymptomatic Qualified Code(s): Z21 - Asymptomatic human immunodeficiency virus [HIV] infection status Plan: On HAART. As per hospitalist. (5) Hx pulmonary embolism Plan: On anticoagulation. (6) Hypertension Qualifiers: Hypertension type: essential hypertension Qualified Code(s): I10 - Essential (primary) hypertension Plan: Uncontrolled. See response to fluid removal. Advised compliance with medications and dialysis.
[2020-06-01] MEDS ORDERED: CLONIDINE HCL 0.2 MG TABLET PO ONE ×2 (16:38→18:58)
[2020-06-01] MEDS ORDERED: LORAZEPAM INJ 2 MG/1 ML VIAL IV ONE (17:26)
[2020-06-01] MEDS ORDERED: METOPROLOL TARTRATE PF/INJ 5 MG/5 ML SDV IV ONE (19:41)
[2020-06-01] MEDS ORDERED: CARVEDILOL 12.5 MG TABLET PO ONE (19:42)
[2020-06-01] MEDS ORDERED: NIFEDIPINE 30 MG TAB.ER.24 PO ONE (19:44)
[2020-06-01] MEDS ORDERED: ISOSORBIDE MONONITRATE 60 MG TAB.ER.24H PO ONE (19:45)
[2020-06-01 21:58] VITALS: BP 161/88
--- NOTE | 2020-06-02 00:33 | EKG REPORT ---
SEVERITY:- ABNORMAL ECG - SINUS TACHYCARDIA RBBB AND LAFB PROBABLE LVH WITH SECONDARY REPOL ABNRM : Confirmed by: Beulah Storm 02-Jun-2020 00:32:55
--- OUTSIDE RECORDS SUMMARY | 2020-06-02 15:27 | XMS REPORT ---
:1955 [facility] [address] [place] [address] Care Team Providers Name Role Phone PCP, [...] Date Date Treatment Clinician Date Abdominal Abdominal [id number] Active 2020-02-10 Overview: aorta aorta 02-09 17:16:13 subacut e thrombosis thrombosis 00:00: in trarena 00 l abdomina l aortic occlusio n . HIV (human HIV (human [id number] Active 2020-02-10 Overview: immunodefic immunodefic 02-09 17:16:13 Patient iency virus iency virus 00:00: was infection) infection) 00 di agnosed in [facility] [place] in 1995. Risk Factor: IVDU, MSM. Pansensi t rafael genotype in 2003. ART hx- 1999: Epivir, Zerit, Viramune 2003: Videx, Kaletra, Zerit 2007: Kaletra and Truvada 2012: Atripla 2012:Slim e tra and Truvada Last Assessme n t & Plan : -current l y taking abacavir and dolutegr a vir Hypertensio Hypertensio [id number] Active 2020-02-10 Overview: n goal BP n goal BP 02-09 17:16:13 Pat ient (blood (blood 00:00: is pressure) < pressure) < 00 currently 130/80 130/80 taking amlodipi n e-benazo p ril as his home regimen. Tobacco Tobacco 25160947 Active 2020-02-10 Over view: dependency dependency 02-09 [...] -nicotin e patch in place PVD PVD 86594144 Active 2020-02-10 Over view: (peripheral (peripheral 02-09 17:16:13 S/p vascular vascular 00:00: bilate ral disease) disease) 00 amputa marilu ns (R-BK A and L-AKA). 04/27/13 Seen by vascular surgery at [facility] with diagnosi s of left hand ischemia . Pletal and diagnost i c studie s ordered. Last Assessme n t & Plan : Thrombos i s of bilatera l poplitea l arteries in setting of cocaine use June 1999. Bilatera l BKA (Kotwal) early July 1999. Bronchitis Bronchitis 70101778 Active 2020-02-10- 17:16:13 00:00: 00 Paroxysmal Paroxysmal 62232166 Active 2020-02-10 atrial atrial 1-10 17:16:13 fibrillatio fibrillatio 00:00: n n 00 Ischemic Ischemic 07706560 Active 2018-072020-02-10 colitis colitis - 17:16:13 00:00: 00 End-stage End-stage 04967963 Active 2018-072020-02-10 Overview: renal renal 0-12 17:16:13 Last disease on disease on 00:00: As sessmen hemodialysi hemodialysi 00 t & Plan: s s -complet e d a full session yesterda y . -consult Nephrolo g y for hemodial y sis. Thi s can be done in am. Noncomplian Noncomplian 79407990 Active 2020-02-10 ce ce 12-10 17:16:13 00:00: 00 Other Other 39741564 Active 2017-072020-02-10 Over view: pulmonary pulmonary 09-02 17:16:13 On embolism embolism 00:00: Chroni c without without 00 Coumadin acute cor acute cor ther apy pulmonale, pulmonale, unspecified unspecified chronicity chronicity Amputation Amputation 91545949 Active 2017-072020-02-10 Overview: of both of both 0 17:16:13 10/22/18 lower lower 00:00: never extremities extremities 00 followed through with Bashir d ; using someone LOC&ALL i r; order given to get his own. 05/04/18 - face to face for Bashir goode Cardiomyopa Cardiomyopa 92822962 Active 2017-072020-02-10 Overview: thy, thy, 0-05 17:16:13 Last hypertensiv hypertensiv 00:00: Assessmen e, with e, with 00 t & Plan : heart heart -euvolem i failure failure c currentl y , withou t edema noted on CT chest - resume diuretic - continue imdur/hy d ralazine combo an d continue to hold beta gregorio due to cocaine abuse Substance Substance 35108544 Active 2020-02-10 Overview: use use - 17:16:13 Current ly disorder disorder 00:00: report s 00 no other use except cigarett e s. Last Assessme n t & Plan : - check urine drug screen Chronic Chronic 44177531 Active 2020-02-10 Over view: systolic systolic 04-12 17:16:13 Hospi nancy (congestive (congestive 00:00: zation in ) heart ) heart e failure failure ptember 2014 in [facility] . Echocard i ogram done, systolic dysfunct i on,07/24 diastoli c dysfunct i on, 35-40% EF. 03/21/15 Lesixcan cardioli t e strss test: Normal EKG and hemodyna m ic response to IV Lexiscan COPD COPD 15198724 Active 2020-02-10 Over view: (chronic (chronic 2-06 17:16:13 Uses QVAR obstructive obstructive 00:00: daily and pulmonary pulmonary 00 Vent eloise disease) disease) prn [facility] Assessme n t & Plan : - no wheezes - resume home maintena n ce inhalers and bronchod i lators a s needed Hypercoagul Hypercoagul 20959254 Active 2020-02-10 Overview: able state able state [...] AB CLASS I (test code = 0 32201873) PERCENT RELATIVE AB CLASS II (test code = TU 28582903) DILUTION (test code = 68382848) 1:1 METHOD AB (test code = 86361673) Flow Cytometry TEST DATE AB (test code = 77962298) 20200215 SAMPLE DATE (test code = 23937839) 20200210 HLA COMMENTS (test code = 26407139) Flow Screen DE: TU=NO ACCURA TE PRA PERCENTAGE CAN BE DETERMINED Disclaimer #1 (test code = 26409553) HLA Antibody Specificity Class [id number] 16:31:00 Test Item Value Reference Range Comments CPRA CLASS II (test code = 98155934) 0 SPEC CII AB (test code = 02447862) SEE COMMENT DILUTION (test code = 92572119) 1:1 METHOD AB (test code = 66239320) LUMINEX TEST DATE AB (test code = 86953421) 20200214 SAMPLE DATE (test code = 69070747) 20200210 HLA COMMENTS (test code = 35290200) Disclaimer #2 (test code = 95773981) HLA Class I Typing Low [id number] 16:45:00 Test Item Value Reference Range Comments HLA A LR ALLELE 1 (test code = 97802254) A*03:01 HLA A* LR ALLELE 2 (test code = 95742163) A*30:02 HLA B LR ALLELE 1 (test code = 10037785) B*08:01 HLA B LR ALLELE 2 (test code = 38362613) B*52:01 HLA C LR ALLELE 1 (test code = 12492402) C*07:01 HLA C LR ALLELE 2 (test code = 02054553) C*16:01 METHOD TYP (test code = 93853681) NGS HLA A LR ALLELE 1 SEROLOGICAL EQUIVALENT (test A3 code = 31482242) HLA A LR ALLELE 2 SEROLOGICAL EQUIVALENT (test A30 code = 45839332) HLA B* LR ALLELE 1 SEROLOGICAL EQUIVALENT (test B8 code = 18999226) HLA B LR ALLELE 2 SEROLOGICAL EQUIVALENT (test B52 code = 10056603) HLA BW LR ALLELE 1 (test code = 77981384) Bw6 HLA BW LR ALLELE 2 (BKR) (test code = 04247598) Bw4 HLA C LR ALLELE 1 SEROLOGICAL EQUIVALENT (test Cw7 code = 88423524) HLA C LR ALLELE 2 SEROLOGICAL EQUIVALENT (test Cw16 code = 39706810) Patient Type (test code = 30020570) RECIPIENT SAMPLE SOURCE (test code = 95649648) BLOOD SAMPLE DATE (test code = 40976328) 20200210 HLA COMMENTS (test code = 83115425) HLA Class II Typing Low [id number] 16:45:00 Test Item Value Reference Range Comments HLA DRB1 LR ALLELE 1 (test code = 29759538) DRB1*03:01 HLA DRB1 LR ALLELE 2 (test code = 28034018) DRB1*11:01 HLA DRB3 LR ALLELE 1 (test code = 18009705) DRB3*01:01 HLA DRB3 LR ALLELE 2 (test code = 50167543) DRB3*02:02 HLA DQA1 LR ALLELE 1 (test code = 59781582) DQA1*01:02 HLA DQA1 LR ALLELE 2 (test code = 39052795) DQA1*05:01 HLA DQB1 LR ALLELE 1 (test code = 18469319) DQB1*02:01 HLA DQB1 LR ALLELE 2 (test code = 66541392) DQB1*06:02 HLA DPA1 LR ALLELE 1 (test code = 16520757) DPA1*02:01 HLA DPA1 LR ALLELE 2 (test code = 91943432) DPA1*02:02 HLA DPB1 LR ALLELE 1 (test code = 21770312) DPB1*01:01 HLA DPB1 LR ALLELE 2 (test code = 36889639) DPB1*- METHOD TYP (test code = 90095750) NGS HLA-DRB1 LR ALLELE 1 SEROLOGICAL EQUIVALENT (test DR17 code = 91472726) HLA DRB1 LR ALLELE 2 SEROLOGICAL EQUIVALENT (test DR11 code = 91837466) HLA DRB3 LR ALLELE 1 SEROLOGICAL EQUIVALENT (test DR52 code = 29269193) HLA DRB3 LR ALLELE 2 SEROLOGICAL EQUIVALENT (test DR52 code = 91273557) HLA DQB1* LR ALLELE 1 SEROLOGICAL EQUIVALENT DQ2 (test code = 48507895) HLA DQB1* LR ALLELE 2 SEROLOGICAL EQUIVALENT DQ6 (test code = 86644150) HLA DPB1 LR ALLELE 1 SEROLOGICAL EQUIVALENT (test DP1 code = 37392021) HLA DPB1* LR ALLELE 2 SEROLOGICAL EQUIVALENT DP- (test code = 03904590) Patient Type (test code = 33660165) RECIPIENT SAMPLE SOURCE (test code = 92564766) BLOOD SAMPLE DATE (test code = 65315587) 20200210 HLA COMMENTS (test code = 31575137) Cytomegalovirus (CMV) Antibody, [id number] 16:23:00 Test Item Value Reference Range Comments Cytomegalovirus (CMV) Antibody, IGG (test code = Positive Negative 50761285) CLEMENTE (test code = CLEMENTE) Lab Interpretation (test code = 04805-1) Abnormal Cytomegalovirus (CMV) Antibody, [id number] 16:16:00 Test Item Value Reference Range Comments Cytomegalovirus (CMV) Antibody, IGM (test code = Positive Negative 35372576) CLEMENTE (test code = CLEMENTE) Lab Interpretation (test code = 34120-7) Abnormal Yamileth Springer Virus [id number] 15:47:00 Test Item Value Reference Range Comments EBV Ab/VCA IgG (test code = 80894462) Positive Negative EBV Ab/VCA IgM (test code = 36901414) Negative Negative EBV Ab/EBNA (test code = 14297385) Positive Negative EBV Ab/EA IgG (test code = 15757390) Negative Negative Lab Interpretation (test code = 17915-9) Abnormal Varicella Zoster antibody, [id number] 15:11:00 Test Item Value Reference Range Comments Varicella-Zoster Antibody, IGG (test code = Positive Posi tive 08991-5) CLEMENTE (test code = CLEMENTE) Lab Interpretation (test code = 59907-7) Normal Rubeola Antibodies, [id number] 07:36:00 Test Item Value Reference Range Comments Rubeola Antibodies, IgG >300.0 Immune >16.4 AU/mL (test code = 43158667) Negative <13.5 Equivocal 13.5 - 16.4 Positiv e >16.4 Presence of antibodies to Rubeola is pr esumptive evidence of immu nity except when acute infec tion is suspected. CLEMENTE (test code = CLEMENTE) Mumps Antibodies, IgG [id number] 07:36:00 Test Item Value Reference Range Comments Mumps IgG Antibody (test code 239 AU/mL Immune >10.9 = 42331928) Negative <9.0 Equivocal 9. 0 - 10.9 Posit rafael >10.9 A positi ve result generally indica fabiola past exposure to Mump s virus or previous vaccina tion. CLEMENTE (test code = CLEMENTE) HIV-1 And HIV-2 Antibody & [id number] 13:40:00 Test Item Value Reference Range Comments HIV 1&2 Antibody/Antigen (test code = Reactive NonReactiv e 54317-8) HIV Antibody (test code = 27706-4) HIV-1 POSITIVE (none) CLEMENTE (test code = CLEMENTE) Lab Interpretation (test code = 87894-0) Abnormal Hepatitis A Antibody, [id number] 11:36:00 Test Item Value Reference Range Comments Hepatitis A Virus, Antibody (test code = 65300-9) Reactive NonReactive Lab Interpretation (test code = 18239-4) Abnormal HCV ANTIBODY TESTING WITH REFLEX TO VIRAL LOAD [id number] 11:35:00 Test Item Value Reference Range Comments Hepatitis C Virus Antibody (test code = 36643-7) NonReactive NonReactive Lab Interpretation (test code = 50579-9) Normal Hepatitis B Surface [id number] 11:17:00 Test Item Value Reference Range Comments Hepatitis B Surface Antibody (test code = 03785-4) Reactive NonReactive Hepatitis B Surface Antibody Quant (test code = >1000 mIU/mL 09009113) CLEMENTE (test code = CLEMENTE) Lab Interpretation (test code = 43612-9) Abnormal Hepatitis B Surface [id number] 11:16:00 Test Item Value Reference Range Comments Hepatitis B Surface Antigen (test code = 5195-3) NonReactive NonReactive Lab Interpretation (test code = 06445-2) Normal Type And [id number] 10:08:00 Test Item Value Reference Range Comments ABO RH TYPE (test code = 882-1) AB Positive Antibody Screen (test code = 890-4) Negative Specimen Outdate (test code = 72575397) 02-13-2020 23:59 Prostate Specific Antigen (PSA), [id number] 09:51:00 Test Item Value Reference Range Comments PSA (Prostate Specific 6.05 ng/mL <=2.99 [facility] [place] PSA Antigen), Total (test code = Scr [...] consider screeni ng every two years [employer] Total-PSA Method : The measured value o f this analyte can vary depending upon the testing procedure used. Values det ermined on patient samples by differing testing procedur es cannot be directly compare d with one another, and cou ld be cause of erroneous med ical interpretation. Lab Interpretation (test code Abnormal = 02526-7) Prostate Specific Antigen (PSA), [id number] 09:51:00 Test Item Value Reference Range Comments PSA (Prostate Specific 6.05 ng/mL <=2.99 [facility] [place] PSA Antigen), Total (test code = Scr [...] interpretation. Lab Interpretation (test code Abnormal = 07281-7) [id number] 09:37:00 Test Item Value Reference Range Comments Albumin (test code = 1751-7) 3.2 g/dL 3.5-4.8 Lab Interpretation (test code = 91537-1) Abnormal [id number] 09:37:00 Test Item Value Reference Range Comments Creatinine (test code = 2160-0) 7.1 mg/dL 0.6-1.3 Glomerular Filtration Rate 8 mL/min/1.73sq m Inter pretive Ranges for (eGFR) (test code = 36054-1) eG FR(CKD-EPI): eGFR: > 60 mL/min/1.73 sq [...] ysis. Lab Interpretation (test code = Abnormal 02800-5) [id number] 09:37:00 Test Item Value Reference Range Comments Albumin (test code = 1751-7) 3.2 g/dL 3.5-4.8 Lab Interpretation (test code = 39089-9) Abnormal [id number] 09:37:00 Test Item Value Reference Range Comments Creatinine (test code = 2160-0) 7.1 mg/dL 0.6-1.3 Glomerular Filtration Rate 8 mL/min/1.73sq m Inter pretive Ranges for (eGFR) (test code = 72706-3) eG FR(CKD-EPI): eGFR: > 60 mL/min/1.73 sq [...] ysis. Lab Interpretation (test code = Abnormal 59172-9) REQUEST TO STORE OUTSIDE [id number] 07:11:40Please refer to the appropriate PACS to [...] Clinicians Facility Department ID 2020-02-14 2020-02-14 Outpatient [facility] [id number] 00:00:00 00:00:00 2020-02-10 2020-02-10 Outpatient [facility] [id number] 07:44:30 17:04:01 2020-02-10 2020-02-10 Outpatient [facility] [id number] 07:46:05 17:03:36 2020-02-10 2020-02-10 [facility] [id number] 07:42:52 17:01:27 DAVID 2020-02-10 2020-02-10 Outpatient TREV EMERY, [facility] [id number] 07:42:12 16:49:06 2B2C 2020-02-10 2020-02-10 Outpatient VINAY [facility] [id number] 08:47:11 08:47:11 OWEN 2020-02-10 2020-02-10 Outpatient VINAY [facility] [id number] 08:31:31 08:46:00 OWEN 2020-02-10 2020-02-10 Outpatient FOSTER [facility] [id number] 07:43:34 07:43:34 DOMINIK 2020-02-10 2020-02-10 Outpatient CARLEEN CHAMBERS [facility] [id number] 07:41:05 07:41:05 ELENITA 2019-09-28 2019-09-28 Outpatient [facility] [id number] 00:00:00 00:00:00 2019-08-16 2019-08-16 Outpatient CARLEEN LICEA [facility] [id number] 10:42:20 23:59:00 OWEN 2019-07-30 2019-07-30 Outpatient [facility] [id number] 00:00:00 00:00:00 2019-07-07 2019-07-07 Outpatient [facility] [id number] 00:00:00 00:00:00 2018-04-06 2018-04-08 Inpatient 1 SALARY, [facility] [id number] 07:43:00 18:00:00 ZAC Immunizations Ordered Immunization [...]
--- NOTE | 2020-06-06 16:03 | PDOC PROGRESS REPORT ---
Subjective Date:: 06/06/20 Reason For Visit: Patient admitted into the ER today with shortness of breath. He is apparently was on his way to dialysis when he says he began to notice shortness of breath which began actually early this this morning and therefore decided to go to the ER instead of going to dialysis. Denies any history of chest pain. He states he is compliant with his medications. However his blood pressure is very high. Always had history of compliance with medications and diet and missing dialysis treatments before. Labs and medications were reviewed. He was due for dialysis today as his last dialysis was Friday at [facility]. Patient currently being seen while undergoing dialysis. Patient is quite comfortable. Vital signs shows elevated blood pressures. Dialysis orders were reviewed with the treating dialysis nurse. We will plan to remove 3-4 L of fluid as tolerated. Physical Exam Vital Signs: Temp Pulse Resp BP Pulse Ox 98.1 F 16 161/88 H 100 06/01/20 21:50 06/01/20 21:50 06/01/20 21:50 06/01/20 21:50 General appearance: PRESENT: no acute distress Respiratory exam: PRESENT: clear to auscultation ramila, decreased breath sounds. ABSENT: crackles Cardiovascular exam: PRESENT: +S1, +S2 GI/Abdominal exam: PRESENT: normal bowel sounds, soft. ABSENT: organomegaly, tenderness Neurological exam: PRESENT: alert, awake, oriented to person Psychiatric exam: PRESENT: appropriate affect Results Laboratory Results: 06/01/20 12:20 06/01/20 12:20 06/01/20 12:20 Blood Blood Culture - Final NO GROWTH IN 5 DAYS 06/01/20 00:28 Blood Blood Culture - Final NO GROWTH IN 5 DAYS 06/01/20 06/01/20 06/01/20 12:20 12:20 16:54 Creatine Kinase 153 CK-MB (CK-2) 2.44 Troponin I 0.072 0.102 Impressions: Chest X-Ray 06/01/20 00:00 IMPRESSION: NO ACUTE RADIOGRAPHIC FINDING IN THE CHEST. Chest/Abdomen CTA 06/01/20 13:22 IMPRESSION: 1. No PE. 2. Atelectasis or early infiltrate in the lingula. 3. Chronic vasculopath on hemodialysis. Assessment & Plan - Diagnosis (1) SOB (shortness of breath) Plan: Patient is apparently clinically short of breath. Patient currently undergoing dialysis like he could be having congestive heart failure even though is not supported radiologically or clinically. Patient currently undergoing dialysis without any issues. See the response postdialysis. Monitor closely. (2) Hyperkalemia Plan: See the response to dialysis. Advised on compliance with dietary modifications. Monitor. (3) ESRD needing dialysis Plan: Patient currently undergoing supervised dialysis. He seems to be tolerating well. Blood pressure still high and see response to volume removal. Labs and medications were reviewed. Plan to remove 3-4 L of fluid as tolerated. Dialysis orders were reviewed with the treating dialysis nurse. (4) HIV (human immunodeficiency virus infection) Qualifiers: HIV symptom status: asymptomatic Qualified Code(s): Z21 - Asymptomatic human immunodeficiency virus [HIV] infection status Plan: On HAART. As per hospitalist. (5) Hx pulmonary embolism Plan: On anticoagulation. (6) Hypertension Qualifiers: Hypertension type: essential hypertension Qualified Code(s): I10 - Ess ential (primary) hypertension Plan: Uncontrolled. See response to fluid removal. Advised compliance with medications and dialysis.
== END 2020-06-01 21:59 | disposition home or self-care (01) ==
LOC: ER 12:14
DX: I13.2 Hypertensive heart and chronic kidney disease with heart failure and with stage 5 chronic kidney disease, or end stage renal disease (principal); E11.22 Type 2 diabetes mellitus with diabetic chronic kidney disease; N18.6 End stage renal disease; I50.32 Chronic diastolic (congestive) heart failure; Z99.2 Dependence on renal dialysis; Z91.15 Patient's noncompliance with renal dialysis; E87.6 Hypokalemia; E11.51 Type 2 diabetes mellitus with diabetic peripheral angiopathy without gangrene; R00.0 Tachycardia, unspecified; I45.2 Bifascicular block; J44.9 Chronic obstructive pulmonary disease, unspecified; R05 Cough; E78.5 Hyperlipidemia, unspecified; E78.00 Pure hypercholesterolemia, unspecified; F32.9 Major depressive disorder, single episode, unspecified; I25.10 Atherosclerotic heart disease of native coronary artery without angina pectoris; I25.2 Old myocardial infarction; Z21 Asymptomatic human immunodeficiency virus [HIV] infection status; Z86.711 Personal history of pulmonary embolism; Z86.718 Personal history of other venous thrombosis and embolism; Z79.899 Other long term (current) drug therapy; Z79.01 Long term (current) use of anticoagulants; Z89.511 Acquired absence of right leg below knee; Z89.612 Acquired absence of left leg above knee; Z88.8 Allergy status to other drugs, medicaments and biological substances; Z20.828 Contact with and (suspected) exposure to other viral communicable diseases
CPT/HCPCS: 93005; 96376; 94640; 99285; 96374; 96375; 36415; 87040; 82553; 82803 ×2; 82550; 82728; 83605; 83615; 83735; 85652; 85610; 87070; 86140; 84484; 85379; 71045; 71275; 93010; 36600; G0257; U0003; J0610; A9270 ×5; J3490 ×3; J0360; J2060; C9803; 87635; J1815

== ENCOUNTER 2020-06-06 08:42 | Emergency (ER) | payer MEDICARE, MEDICAID ==
[2020-06-06] MEDS ORDERED: IPRATROPIUM/ALBUTEROL 0.5-2.5 MG/3 ML AMPUL NEB ONE (08:49)
[2020-06-06 09:13] LABS: ABSOLUTE BASOPHILS # (AUTO) 0.1 10^3/uL (0.0-0.2); ABSOLUTE EOSINOPHILS # (AUTO) 0.2 10^3/uL (0.0-0.6); ABSOLUTE LYMPHOCYTES (AUTO) 4.9 10^3/uL (0.5-4.7); ABSOLUTE MONOCYTES (AUTO) 1.1 10^3/uL (0.1-1.4); ABSOLUTE NEUT (AUTO) 8.4 10^3/uL (1.7-8.2); BASOPHILS % (AUTO) 0.5 % (0-2); EOSINOPHILS % (AUTO) 1.3 % (0-6); HEMATOCRIT 32.4 % (37.9-51.0); HEMOGLOBIN 10.6 g/dL (13.5-17.0); LYMPHOCYTES % (AUTO) 33.2 % (13-45); MEAN CORPUSCULAR HEMOGLOBIN 31.9 pg (27.0-33.4); MEAN CORPUSCULAR HGB CONC 32.8 g/dL (32.0-36.0); MEAN CORPUSCULAR VOLUME 97 fl (80-97); MONOCYTES % (AUTO) 7.7 % (3-13); PLATELET COUNT 236 10^3/uL (150-450); RED BLOOD COUNT 3.33 10^6/uL (4.35-5.55); RED CELL DISTRIBUTION WIDTH 15.3 % (11.5-14.0); SEGMENTED NEUTROPHILS % (AUTO) 57.3 % (42-78); TOTAL CELLS COUNTED % (AUTO) 100 %; WHITE BLOOD COUNT 14.7 10^3/uL (4.0-10.5)
--- NOTE | 2020-06-06 09:22 | RADIOLOGY REPORT (SQ) ---
EXAM DESCRIPTION: CHEST SINGLE VIEW IMAGES COMPLETED DATE/TIME: 06/06/2020 9:07 am REASON FOR STUDY: Respiratory distress, wheezes, CRF, COPD COMPARISON: AP view of the chest from 06/01/2020. EXAM PARAMETERS: NUMBER OF VIEWS: One view. TECHNIQUE: An AP view of the chest was obtained. RADIATION DOSE: NA LIMITATIONS: None. FINDINGS: LUNGS AND PLEURA: No consolidation, pleural effusion or pneumothorax. MEDIASTINUM AND HILAR STRUCTURES: No mediastinal or hilar contour abnormality. HEART AND VASCULAR STRUCTURES: The cardiac silhouette is enlarged. BONES: No acute findings. HARDWARE: Surgical clips that project within the right axilla. OTHER: No other finding. IMPRESSION: Cardiomegaly without a superimposed acute cardiopulmonary process. TECHNICAL DOCUMENTATION: JOB ID: [id number] 2010 [employer]- All Rights Reserved Reading location - IP/workstation name: [email or web address]
[2020-06-06 09:29] LABS: VENOUS BLOOD BASE EXCESS -11.2 mmol/L; VENOUS BLOOD HCO3 20.4 mmol/L (20-32)
[2020-06-06 09:30] LABS: VENOUS BLOOD PCO2 74.7 mmHg (35-63); VENOUS BLOOD PH 7.06 (7.30-7.42)
[2020-06-06 09:34] LABS: ALBUMIN 4.1 g/dL (3.5-5.0); ALKALINE PHOSPHATASE 81 U/L (38-126); ANION GAP 19 (5-19); ASPARTATE AMINO TRANSFERASE 41 U/L (17-59); BILIRUBIN,DIRECT 0.7 mg/dL (0.0-0.4); BILIRUBIN,TOTAL 0.7 mg/dL (0.2-1.3); BLOOD UREA NITROGEN 79 mg/dL (7-20); CALCIUM 7.8 mg/dL (8.4-10.2); CARBON DIOXIDE 19 mmol/L (22-30); CHLORIDE 102 mmol/L (98-107); CREATINE KINASE 128 U/L (55-170); GLUCOSE 185 mg/dL (75-110); POTASSIUM 5.9 mmol/L (3.6-5.0); TOTAL PROTEIN 7.2 g/dL (6.3-8.2)
[2020-06-06] MEDS ORDERED: FUROSEMIDE INJ/PF 100 MG/10 ML SDV IV ONE (09:43)
[2020-06-06] MEDS ORDERED: CLONIDINE HCL 0.2 MG TABLET PO ONE ×2 (09:44→15:04)
[2020-06-06] MEDS ORDERED: HYDRALAZINE HCL INJ/PF 20 MG/1 ML SDV IV ONE (09:44)
--- NOTE | 2020-06-06 09:44 | ER Document Report ---
Entered by SEBASTIAN MCCALL SCRIBE 06/06/20 0850 Acting as scribe for:JORGE DAY MD ED Respiratory Problem - General Chief Complaint: Shortness Of Breath Stated Complaint: SHORTNESS OF BREATH Primary Care Provider: LUIS CROW MD [Primary Care Provider] - Follow up as needed Mode of Arrival: Medic Information source: Emergency Med Personnel Notes: This 65 year old male patient with a history of HIV, HTN, HLD, CAD, CHF, PE/DVT on Coumadin, COPD and ESRD on HD (//Fri) presents to the ED today via EMS with complaints of shortness of breath that started just prior to arrival. EMS reports that the patient was receiving an albuterol treatment via JFD upon their arrival and that the patient was "out of control," so they administered x5 mg Versed IM. Patient was placed on CPAP and received 125 mg Solumedrol IV and a Xopenex treatment via EMS. Patient was evaluated here x3 separate times on 06/01 for shortness of breath and was placed on BiPAP. He was able to tolerate being off BiPAP each time while maintaining O2 sats in the mid to high 90s on room air and was discharged with instructions to go to dialysis; patient was last dialyzed on 06/03. He was schedule asked to go to dialysis today. Patient initially had a blood pressure 221/107 with a pulse of 106. He was put on BiPAP, and his pulse ox remained at 98% on 30% FiO2. He is known to be extremely noncompliant with his medication regimen. He reports that he had not been using cocaine now for several months. TRAVEL OUTSIDE OF THE [place] IN LAST 30 DAYS: No - Related Data Allergies/Adverse Reactions: calcitriol Allergy (Verified 06/01/20 01:54) itching Past Medical History - General Information source: [facility] Records - Social History Smoking Status: Unknown if Ever Smoked Smoking Education Provided: No Family History: Reviewed & Not Pertinent, CAD, CVA, DM, Hyperlipidemia, Hypertension, Malignancy - Past Medical History Cardiac Medical History: Reports: Hx Congestive Heart Failure - EF is 25-30% in 01/2020, + diastolic dysfunction, Hx Coronary Artery Disease, Hx DVT, Hx Heart Attack, Hx Hypercholesterolemia, Hx Hypertension, Hx Peripheral Vascular Disease, Hx Pulmonary Embolism Pulmonary Medical History: Reports: Hx Bronchitis, Hx COPD, Hx Pneumonia, Hx Respiratory Failure Neurological Medical History: Endocrine Medical History: Reports: Hx Diabetes Mellitus Type 2 - insulin dependent Renal/ Medical History: Reports: Hx End Stage Renal Disease, Hx Hemodialysis GI Medical History: Reports: Hx Gastroesophageal Reflux Disease Musculoskeletal Medical History: Reports Hx Arthritis, 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 bilat AKA, Reports Hx Musculoskeletal Trauma Psychiatric Medical History: Reports: Hx Depression Infectious Medical History: Reports: Hx HIV - noncompliant with meds Past Surgical History: Reports: Hx Orthopedic Surgery - bilateral amputation, R BKA, L AKA, Hx Vascular Surgery - IVC filter, thrombectomy 05/18/2018 left arm, Other - Tunnel graft right axillary femoral bypass, dialysis fistula LUE - Immunizations Immunizations up to date: Yes Hx Diphtheria, Pertussis, Tetanus Vaccination: Yes Hx Pneumococcal Vaccination: 07/21/10 Physical Exam - Vital signs Vitals: Resp Pulse Ox 21 H 80 L 06/06/20 08:44 06/06/20 08:44 - HEENT Head: Normocephalic, Atraumatic Eyes: Normal Pupils: PERRL - Respiratory Respiratory status: Tachypnea, Other - 82% on CPAP initially, placed on BiPAP with O2 sats 98% on 30% FiO2 Chest status: Nontender Breath sounds: Wheezing - Diffuse Chest palpation: Normal - Cardiovascular Rhythm: Regular, Tachycardia Heart sounds: Normal auscultation Murmur: No Friction rub: No Gallop: None auscultated - Abdominal Inspection: Normal Distension: No distension Bowel sounds: Normal Tenderness: Nontender - Abdomen soft Organomegaly: No organomegaly - Back Back: Normal, Nontender - Extremities General upper extremity: Normal inspection General lower extremity: Other - Left AKA, Right BKA - Neurological Neuro grossly intact: Yes - Skin Skin Temperature: Warm Skin Moisture: Dry Skin Color: Normal Course - Re-evaluation Re-evalutation: 06/06/20 15:37 The patient tells me that he does not take any of his medications on his dialysis days until he gets home from dialysis. He said he takes the isosorbide 5 pills at 1 time after dialysis. He frequently comes here when he is on his way to dialysis and his blood pressure is always extremely high. 06/06/20 15:52 The patient currently has an oxygen saturation of 96% on room air. He was given several of his blood pressure medications here in the emergency room, and at this time he is stable for discharge. He completed dialysis, and had 3400 mL of fluid removed. - Vital Signs Vital signs: Temp Pulse Resp BP Pulse Ox 17 181/95 H 96 06/06/20 15:02 06/06/20 15:02 06/06/20 15:02 - Laboratory Result Diagrams: 06/06/20 08:53 06/06/20 08:53 Laboratory results interpreted by me: 06/06/20 06/06/20 06/06/20 08:53 08:53 08:53 WBC 14.7 H RBC 3.33 L Hgb 10.6 L Hct 32.4 L RDW 15.3 H Absolute Neuts (auto) 8.4 H Absolute Lymphs (auto) 4.9 H PT D-Dimer VBG pH VBG pCO2 Potassium 5.9 H Carbon Dioxide 19 L BUN 79 H Creatinine 10.84 H Est GFR ( Amer) 6 L Est GFR (MDRD) Non-Af 5 L Glucose 185 H Calcium 7.8 L Direct Bilirubin 0.7 H ALT 63 H Lactate Dehydrogenase NT-Pro-B Natriuret Pep 45941 H 06/06/20 06/06/20 06/06/20 08:53 08:53 08:53 WBC RBC Hgb Hct RDW Absolute Neuts (auto) Absolute Lymphs (auto) PT D-Dimer 0.72 H VBG pH 7.06 L* VBG pCO2 74.7 H* Potassium Carbon Dioxide BUN Creatinine Est GFR ( Amer) Est GFR (MDRD) Non-Af Glucose Calcium Direct Bilirubin ALT Lactate Dehydrogenase 277 H NT-Pro-B Natriuret Pep 06/06/20 08:53 WBC RBC Hgb Hct RDW Absolute Neuts (auto) Absolute Lymphs (auto) PT 21.4 H D-Dimer VBG pH VBG pCO2 Potassium Carbon Dioxide BUN Creatinine Est GFR ( Amer) Est GFR (MDRD) Non-Af Glucose Calcium Direct Bilirubin ALT Lactate Dehydrogenase NT-Pro-B Natriuret Pep - Diagnostic Test Radiology reviewed: Image reviewed, Reports reviewed - CXR shows cardiomegaly without other acute abnormalities. - EKG Interpretation by Me EKG shows normal: Sinus rhythm, [place], Intervals, QRS Complexes, ST-T Waves Rate: Tachycardia - 108 [place]/QRS: Left axis deviation, IVCD Voltage: Consistent with LVH When compared to previous EKG there are: No significant change - Consults Dr. Lowe Time consulted: 11:30 Consulted provider: other - Dr. Lowe agrees that it would be best to dialyze the patient in the emergency room since his potassium is 5.9 at this time. Critical Care Note - Critical Care Note Total time excluding time spent on procedures (mins): 35 Comments: At least 35 minutes spent seeing and evaluating patient, getting his current and old history. Reviewing records, discussing the patient with the aeronautical inspector several times. Reevaluating patient several times. Getting dialysis done for him today, and continuing to give him medications to bring his blood pressure d own. He is a difficult noncompliant hypertensive dialysis patient. Discharge - Discharge Clinical Impression: Shortness of breath, ESRD needing dialysis, Uncontrolled hypertension, Hyperkalemia Condition: Stable Disposition: HOME, SELF-CARE Additional Instructions: You were given your isosorbide mononitrate 150mg here in the emergency room today. You were given 2 doses of your clonidine 0.2mg. You were given 1 dose of your carvedilol 25mg. You should be sure to take the rest of your blood pressure medications when you get home. Be sure not to miss any of your medications. You should check your blood pressure in the morning every day before you start your medicines, or before you leave for dialysis and keep a record of this. Follow-up with Dr. Lowe or your primary care provider. Referrals: LUIS CROW MD [Primary Care Provider] - Follow up as needed I personally performed the services described in the documentation, reviewed and edited the documentation which was dictated to the scribe in my presence, and it accurately records my words and actions.
[2020-06-06 09:53] LABS: TROPONIN I 0.093 ng/mL
[2020-06-06 10:09] LABS: INTERNATIONAL RATION (INR) 1.85; PROTHROMBIN TIME 21.4 SEC (11.4-15.4)
[2020-06-06] MEDS ORDERED: CALCIUM GLUCONATE 1000 MG/10 ML INJ IV ONE (10:36)
[2020-06-06] MEDS ORDERED: METOPROLOL TARTRATE PF/INJ 5 MG/5 ML SDV IV ONE (15:04)
--- NOTE | 2020-06-06 15:16 | EKG REPORT ---
SEVERITY:- ABNORMAL ECG - SINUS TACHYCARDIA NONSPECIFIC IVCD WITH LAD LEFT VENTRICULAR HYPERTROPHY ANTERIOR Q WAVES, POSSIBLY DUE TO LVH : Confirmed by: Annita Coker MD 06-Jun-2020 15:16:00
[2020-06-06] MEDS ORDERED: ACETAMINOPHEN 325 MG TABLET PO ONE (15:21)
[2020-06-06] MEDS ORDERED: ISOSORBIDE MONONITRATE 60 MG TAB.ER.24H PO ONE ×2 (15:37→15:51)
[2020-06-06] MEDS ORDERED: CARVEDILOL 12.5 MG TABLET PO ONE (15:39)
[2020-06-06 17:03] VITALS: BP 135/67
== END 2020-06-06 17:09 | disposition home or self-care (01) ==
LOC: ER 08:42
DX: I13.2 Hypertensive heart and chronic kidney disease with heart failure and with stage 5 chronic kidney disease, or end stage renal disease (principal); I50.32 Chronic diastolic (congestive) heart failure; N18.6 End stage renal disease; E11.22 Type 2 diabetes mellitus with diabetic chronic kidney disease; Z99.2 Dependence on renal dialysis; E87.5 Hyperkalemia; J44.9 Chronic obstructive pulmonary disease, unspecified; R06.02 Shortness of breath; Z91.14 Patient's other noncompliance with medication regimen; Z21 Asymptomatic human immunodeficiency virus [HIV] infection status; Z79.899 Other long term (current) drug therapy; Z79.01 Long term (current) use of anticoagulants; Z86.711 Personal history of pulmonary embolism; Z86.718 Personal history of other venous thrombosis and embolism; Z88.8 Allergy status to other drugs, medicaments and biological substances
CPT/HCPCS: 93005; 94640; 99285; 96374; 96375; 36415; 82550; 83615; 83735; 85025; 85610; 80053; 84484; 85379; 82803; 83880; 71045; 93010; G0257; A9270 ×4; J0610; J1940; J0360; J3490

== ENCOUNTER 2020-06-10 07:35 | Emergency (ER) | payer MEDICARE, MEDICAID ==
--- NOTE | 2020-06-10 08:21 | RADIOLOGY REPORT (SQ) ---
EXAM DESCRIPTION: CHEST SINGLE VIEW IMAGES COMPLETED DATE/TIME: 06/10/2020 8:09 am REASON FOR STUDY: shortness of breath COMPARISON: 06/06/2020 and 06/01/2020. EXAM PARAMETERS: NUMBER OF VIEWS: One view. TECHNIQUE: Single frontal radiographic view of the chest acquired. RADIATION DOSE: NA LIMITATIONS: None. FINDINGS: LUNGS AND PLEURA: Mild interstitial prominence, probably chronic, masses or pneumothorax. No pleural effusion. MEDIASTINUM AND HILAR STRUCTURES: No masses. Contour normal. HEART AND VASCULAR STRUCTURES: Cardiomegaly unchanged. Normal vasculature. BONES: No acute findings. HARDWARE: None in the chest. OTHER: No other significant finding. IMPRESSION: NO CHANGE IN APPEARANCE OF THE CHEST. CARDIOMEGALY AND PROBABLE CHRONIC INTERSTITIAL MD OMINENCE. NO APPARENT ACUTE RADIOGRAPHIC FINDING IN THE CHEST. TECHNICAL DOCUMENTATION: JOB ID: [id number] 2010 [employer]- All Rights Reserved Reading location - IP/workstation name: [email or web address]
[2020-06-10 09:22] LABS: ABSOLUTE BASOPHILS # (AUTO) 0.1 10^3/uL (0.0-0.2); ABSOLUTE EOSINOPHILS # (AUTO) 0.1 10^3/uL (0.0-0.6); ABSOLUTE LYMPHOCYTES (AUTO) 1.4 10^3/uL (0.5-4.7); ABSOLUTE MONOCYTES (AUTO) 0.5 10^3/uL (0.1-1.4); ABSOLUTE NEUT (AUTO) 5.6 10^3/uL (1.7-8.2); BASOPHILS % (AUTO) 0.9 % (0-2); EOSINOPHILS % (AUTO) 0.9 % (0-6); HEMATOCRIT 30.3 % (37.9-51.0); HEMOGLOBIN 10.1 g/dL (13.5-17.0); LYMPHOCYTES % (AUTO) 18.5 % (13-45); MEAN CORPUSCULAR HEMOGLOBIN 31.7 pg (27.0-33.4); MEAN CORPUSCULAR HGB CONC 33.5 g/dL (32.0-36.0); MEAN CORPUSCULAR VOLUME 95 fl (80-97); MONOCYTES % (AUTO) 7.1 % (3-13); PLATELET COUNT 211 10^3/uL (150-450); RED CELL DISTRIBUTION WIDTH 15.5 % (11.5-14.0); SEGMENTED NEUTROPHILS % (AUTO) 72.6 % (42-78); TOTAL CELLS COUNTED % (AUTO) 100 %; WHITE BLOOD COUNT 7.7 10^3/uL (4.0-10.5)
[2020-06-10 09:39] LABS: ALBUMIN 3.9 g/dL (3.5-5.0); ALKALINE PHOSPHATASE 62 U/L (38-126); ANION GAP 17 (5-19); ASPARTATE AMINO TRANSFERASE 21 U/L (17-59); BILIRUBIN,DIRECT 0.5 mg/dL (0.0-0.4); BILIRUBIN,TOTAL 0.5 mg/dL (0.2-1.3); BLOOD UREA NITROGEN 79 mg/dL (7-20); CALCIUM 8.2 mg/dL (8.4-10.2); CARBON DIOXIDE 19 mmol/L (22-30); CHLORIDE 103 mmol/L (98-107); CREATINE KINASE 94 U/L (55-170); GLUCOSE 100 mg/dL (75-110); POTASSIUM 5.7 mmol/L (3.6-5.0); TOTAL PROTEIN 6.7 g/dL (6.3-8.2)
[2020-06-10 09:51] LABS: CREATINE KINASE MB 2.73 ng/mL (<4.55)
[2020-06-10] MEDS ORDERED: MORPHINE SULFATE 10 MG/ML INJ IV ONE (09:51)
[2020-06-10] MEDS ORDERED: ONDANSETRON HCL INJ/PF 4 MG/2 ML SDV IV ONE (09:52)
[2020-06-10 09:54] LABS: TROPONIN I 0.095 ng/mL
[2020-06-10] MEDS ORDERED: NIFEDIPINE 30 MG TAB.ER.24 PO ONE (11:08)
[2020-06-10] MEDS ORDERED: CLONIDINE HCL 0.2 MG TABLET PO ONE (11:08)
[2020-06-10] MEDS ORDERED: CARVEDILOL 12.5 MG TABLET PO ONE (11:09)
[2020-06-10] MEDS ORDERED: HYDRALAZINE HCL 50 MG TABLET PO ONE (11:09)
[2020-06-10] MEDS ORDERED: ISOSORBIDE MONONITRATE 30 MG TAB.ER.24H PO STA (11:10)
--- NOTE | 2020-06-10 11:17 | ER Document Report ---
Entered by AHRITHA LAMBERT SCRIBE 06/10/20 1008 Acting as scribe for:LIVIER PEDROZA MD ED General - General Chief Complaint: Breathing Difficulty Stated Complaint: SHORTNESS OF BREATH Time Seen by Provider: 06/10/20 07:43 Primary Care Provider: LUIS CROW MD [Primary Care Provider] - Follow up as needed Information source: Patient, [facility] Records Notes: This 65 year old male patient with history of HLD, HTN, CHF, CAD, COPD, and DVT/PE, presents to the emergency department today with complaints of shortness of breath. Patient reports history of ESRD with HD (/Fri). Patient states he was getting ready for his dialysis appointment this morning and felt short of breath, then called for EMS. Patient has a left AKA and while in the ED reports "spasms" in his left stump. TRAVEL OUTSIDE OF THE [place] IN LAST 30 DAYS: No - Related Data Allergies/Adverse Reactions: calcitriol Allergy (Verified 06/10/20 08:24) itching Home Medications: copd. chf. esrd. hiv/aids. mi. dvt Past Medical History - General Information source: Patient, [facility] Records - Social History Smoking Status: Unknown if Ever Smoked Family History: Reviewed & Not Pertinent, CAD, CVA, DM, Hyperlipidemia, Hypertension, Malignancy Patient has homicidal ideation: No - Past Medical History Cardiac Medical History: Reports: Hx Congestive Heart Failure - EF is 25-30% in 01/2020, + diastolic dysfunction, Hx Coronary Artery Disease, Hx DVT, Hx Heart Attack, Hx Hypercholesterolemia, Hx Hypertension, Hx Peripheral Vascular Disease, Hx Pulmonary Embolism Pulmonary Medical History: Reports: Hx Bronchitis, Hx COPD, Hx Pneumonia, Hx Respiratory Failure Neurological Medical History: Endocrine Medical History: Reports: Hx Diabetes Mellitus Type 2 - insulin dependent Renal/ Medical History: Reports: Hx End Stage Renal Disease, Hx Hemodialysis GI Medical History: Reports: Hx Gastroesophageal Reflux Disease Musculoskeletal Medical History: Reports Hx Arthritis, Reports Hx Mu sculoskeletal Deformity - double amputee bilat AKA, Reports Hx Musculoskeletal Trauma Psychiatric Medical History: Reports: Hx Depression Infectious Medical History: Reports: Hx HIV - noncompliant with meds Past Surgical History: Reports: Hx Orthopedic Surgery - bilateral amputation, R BKA, L AKA, Hx Vascular Surgery - IVC filter, thrombectomy 05/18/2018 left arm, Other - Tunnel graft right axillary femoral bypass, dialysis fistula LUE - Immunizations Immunizations up to date: Yes Hx Diphtheria, Pertussis, Tetanus Vaccination: Yes Hx Pneumococcal Vaccination: 07/21/10 Review of Systems - Review of Systems Constitutional: No symptoms reported EENT: No symptoms reported Cardiovascular: No symptoms reported Respiratory: See HPI, Short of breath Gastrointestinal: No symptoms reported Genitourinary: No symptoms reported Male Genitourinary: No symptoms reported Musculoskeletal: See HPI, Other - "spasms" in left stump Skin: No symptoms reported Hematologic/Lymphatic: No symptoms reported Neurological/Psychological: No symptoms reported -: Yes All other systems reviewed and negative Physical Exam - Vital signs Vitals: Temp Pulse Ox 98.7 F 100 06/10/20 07:35 06/10/20 07:35 - General General appearance: Alert - HEENT Head: Normocephalic, Atraumatic Eyes: Normal Pupils: PERRL - Respiratory Notes: Placed on BiPAP on arrival with O2 sats 100%. Diminished breath sounds bilaterally. Rales bilaterally. No expiratory wheeze. - Cardiovascular Rhythm: Regular Heart sounds: Normal auscultation, S1 appreciated, S2 appreciated Murmur: No - Abdominal Inspection: Normal - Soft Distension: No distension Bowel sounds: Normal Tenderness: Nontender - Extremities General upper extremity: Normal inspection, Normal ROM Notes: Lower extremities: Left AKA. Right BKA. - Neurological Neuro grossly intact: Yes Cognition: Normal Orientation: AAOx4 Star Coma Scale Eye Opening: Spontaneous [place] Coma Scale Verbal: Oriented [place] Coma Scale Motor: Obeys Commands [place] Coma Scale Total: 15 - Psychological Associated symptoms: Normal affect, Normal mood - Skin Skin Temperature: Warm Skin Moisture: Dry Skin Color: Normal Course - Re-evaluation Re-evalutation: 06/10/20 10:56 Patient sats are 95 to 96% on room air. Patient states he is ready to go to dialysis at this time. States his left spasm of left stump amputee has improved but not completely gone. - Vital Signs Vital signs: Temp Pulse Resp BP Pulse Ox 98.7 F 19 190/106 H 94 06/10/20 07:46 06/10/20 11:19 06/10/20 11:19 06/10/20 11:19 - Laboratory Result Diagrams: 06/10/20 09:09 06/10/20 09:09 Laboratory results interpreted by me: 06/10/20 06/10/20 09:09 09:09 RBC 3.20 L Hgb 10.1 L Hct 30.3 L RDW 15.5 H Potassium 5.7 H Carbon Dioxide 19 L BUN 79 H Creatinine 9.01 H Est GFR ( Amer) 7 L Est GFR (MDRD) Non-Af 6 L Calcium 8.2 L Direct Bilirubin 0.5 H 06/10/20 10:57 Patient has elevated BUN/creatinine BUN 79 creatinine 9.0. Patient is chronic renal failure and is due for dialysis today 11 a.m. Phone call has been made as we will try to get patient in his dialysis chair time today at 11. 06/10/20 10:59 Patient has a troponin level of 0.095 which is baseline for patient when you review his trending patient trends between 0.9 as high up as to 0.180. 06/10/20 11:00 There are no EKG changes to suggest a STEMI and patient's dialysis time is due at this point in time and we are trying our best to get patient transferred over to the [facility] for hemodialysis. - Diagnostic Test Radiology reviewed: Image reviewed, Reports reviewed Radiology results interpreted by me: 06/10/20 10:58 Chest X-Ray 06/10/20 07:37 IMPRESSION: NO CHANGE IN APPEARANCE OF THE CHEST. CARDIOMEGALY AND PROBABLE CHRONIC INTERSTITIAL PROMINENCE. NO APPARENT ACUTE RADIOGRAPHIC FINDING IN THE CHEST. Chest x-ray shows no change in appearance from prior chest x-rays. Cardiomegaly and chronic interstitial prominence no apparent radiographic change your finding on this chest x-ray at this time. - EKG Interpretation by Me Additional EKG results interpreted by me: 06/10/20 10:59 Twelve-lead EKG shows a normal sinus rhythm rate of 87 left ventricular hypertrophy with interventricular conduction delay left axis deviation and secondary repull abnormality. Patient's ND interval is within normal range QRS within normal range and QT interval within normal range no evidence for an acute STEMI. Discharge - Discharge Clinical Impression: Hypertension, Acute on chronic respiratory failure with hypoxemia, Chronic kidney disease stage , Chronic elevated troponin, History of DVT (deep vein thrombosis), Mild elevation in potassium Condition: Stable Disposition: HOME, SELF-CARE Additional Instructions: Kidney Failure When your kidneys no longer filter the blood adequately, we call this "kidney failure." While kidney failure can happen suddenly, usually it's the result of many years of slow damage. Kidneys can be injured by many different medical problems including infections, diabetes, high blood pressure, kidney stones, drug toxicity, and immune reactions. The symptoms of kidney failure do not develop until most of the normal kidney tissue has been lost. Early kidney failure usually has no symptoms. As it gets worse, symptoms can include weakness, confusion, high blood pressure, swelling, nausea, anemia, and itching. The seriousness of kidney failure is determined by measuring kidney f unction tests such as BUN or creatinine. The cause of kidney failure may be obvious from the medical history, but occasionally requires special tests such as an angiogram or kidney biopsy. Kidney failure can cause high blood pressure, and uncontrolled hypertension damages kidneys. Good control of blood pressure is important. If you have diabetes, good blood sugar control helps prevent further kidney damage. Fluid retention can be monitored by checking your weight daily. It's best to eat a diet low in protein, potassium, and salt. When kidney failure becomes severe, dialysis or kidney transplant may be required. Call the doctor or return if you develop significant weakness, repeated vomiting, severe lightheadedness, confusion, severe headache, or other serious change in your health. Go directly to your dialysis center for hemodialysis today. Referrals: LUIS CROW MD [Primary Care Provider] - Follow up as needed I personally performed the services described in the documentation, reviewed and edited the documentation which was dictated to the scribe in my presence, and it accurately records my words and actions.
[2020-06-10 11:38] VITALS: BP 190/106
--- NOTE | 2020-06-10 19:46 | EKG REPORT ---
SEVERITY:- ABNORMAL ECG - SINUS RHYTHM LVH WITH IVCD, LAD AND SECONDARY REPOL ABNRM : Confirmed by: Annita Coker MD 10-Jun-2020 19:45:28
== END 2020-06-10 11:38 | disposition home or self-care (01) ==
LOC: ER 07:35
DX: J96.21 Acute and chronic respiratory failure with hypoxia (principal); I13.2 Hypertensive heart and chronic kidney disease with heart failure and with stage 5 chronic kidney disease, or end stage renal disease; N18.5 Chronic kidney disease, stage 5; I50.30 Unspecified diastolic (congestive) heart failure; E87.5 Hyperkalemia; Z79.4 Long term (current) use of insulin; Z89.612 Acquired absence of left leg above knee; Z89.511 Acquired absence of right leg below knee; Z86.718 Personal history of other venous thrombosis and embolism
CPT/HCPCS: 93005; 99285; 96374; 96375; 36415; 82553; 82550; 85025; 80053; 84484; 71045; 93010; A9270 ×5; J2270; J2405

== ENCOUNTER 2020-06-26 09:19 | Observation (INO) | payer MEDICARE, MEDICAID ==
[2020-06-26] MEDS ORDERED: LORAZEPAM INJ 2 MG/1 ML VIAL IV ONE (09:43)
[2020-06-26 09:48] LABS: ABSOLUTE BASOPHILS # (AUTO) 0.1 10^3/uL (0.0-0.2); ABSOLUTE EOSINOPHILS # (AUTO) 0.5 10^3/uL (0.0-0.6); ABSOLUTE LYMPHOCYTES (AUTO) 4.9 10^3/uL (0.5-4.7); ABSOLUTE MONOCYTES (AUTO) 0.9 10^3/uL (0.1-1.4); ABSOLUTE NEUT (AUTO) 5.4 10^3/uL (1.7-8.2); ARTERIAL BLOOD BASE EXCESS -5.8 mmol/L; ARTERIAL BLOOD H2CO3 1.86 mmol/L (1.05-1.35); ARTERIAL BLOOD HCO3 23.1 mmol/L (20-24); ARTERIAL BLOOD O2 SATURATION 99.2 % (94-98); ARTERIAL BLOOD PCO2 61.8 mmHg (35-45); ARTERIAL BLOOD PO2 213.6 mmHg (80-100); BASOPHILS % (AUTO) 0.6 % (0-2); EOSINOPHILS % (AUTO) 4.1 % (0-6); HEMATOCRIT 34.5 % (37.9-51.0); HEMOGLOBIN 11.2 g/dL (13.5-17.0); LYMPHOCYTES % (AUTO) 41.6 % (13-45); MEAN CORPUSCULAR HEMOGLOBIN 31.4 pg (27.0-33.4); MEAN CORPUSCULAR HGB CONC 32.6 g/dL (32.0-36.0); MEAN CORPUSCULAR VOLUME 96 fl (80-97); MONOCYTES % (AUTO) 7.6 % (3-13); PLATELET COUNT 252 10^3/uL (150-450); RED BLOOD COUNT 3.57 10^6/uL (4.35-5.55); RED CELL DISTRIBUTION WIDTH 15.7 % (11.5-14.0); SEGMENTED NEUTROPHILS % (AUTO) 46.1 % (42-78); TOTAL CELLS COUNTED % (AUTO) 100 %; WHITE BLOOD COUNT 11.7 10^3/uL (4.0-10.5)
[2020-06-26 10:07] LABS: ARTERIAL BLOOD FIO2 45%
--- NOTE | 2020-06-26 10:07 | RADIOLOGY REPORT (SQ) ---
EXAM DESCRIPTION: CHEST SINGLE VIEW IMAGES COMPLETED DATE/TIME: 06/26/2020 9:48 am REASON FOR STUDY: acute shortness of breath HD patient COMPARISON: AP view of the chest from 06/10/2020. EXAM PARAMETERS: NUMBER OF VIEWS: One view. TECHNIQUE: An AP view of the chest was obtained. RADIATION DOSE: NA LIMITATIONS: None. FINDINGS: LUNGS AND PLEURA: Bilateral basal predominant patchy parenchymal opacities. The right lat eral costophrenic sulcus is blunted. The left lateral costophrenic sulcus is excluded from the field -of-view. There is no pneumothorax. MEDIASTINUM AND HILAR STRUCTURES: No mediastinal or hilar contour abnormality. HEART AND VASCULAR STRUCTURES: The cardiac silhouette is enlarged. BONES: No acute findings. HARDWARE: Surgical clips that project within the right axilla. OTHER: No other finding. IMPRESSION: Cardiomegaly and bilateral basilar predominant patchy parenchymal opacities. Differenti al considerations include pulmonary edema and multifocal pneumonia. TECHNICAL DOCUMENTATION: JOB ID: [id number] 2010 [employer]- All Rights Reserved Reading location - IP/workstation name: [email or web address]
[2020-06-26] MEDS ORDERED: NITROGLYCERIN/D5W 50 MG/250 ML RTUINJ IV PRN (10:08)
[2020-06-26 10:11] LABS: ARTERIAL BLOOD PH 7.19 (7.35-7.45)
--- NOTE | 2020-06-26 10:21 | ER Document Report ---
ED Respiratory Problem - General Chief Complaint: Shortness Of Breath Stated Complaint: DIFFICULTY BREATHING Time Seen by Provider: 06/26/20 09:32 TRAVEL OUTSIDE OF THE [place] IN LAST 30 DAYS: No - HPI Notes: Patient is a 65-year-old male with a past medical history of end-stage renal disease on dialysis Friday, , Friday, HIV, hypertension who presents with shortness of breath in respiratory distress. Patient states that shortness of breath began today and has worsened. He has had a chronic cough but no new cough. He denies any fevers. Patient states he has not missed any dialysis sessions. History is limited as patient is on BiPAP. - Related Data Allergies/Adverse Reactions: calcitriol Allergy (Verified 06/10/20 08:24) itching Past Medical History - General Information source: Patient - Social History Smoking Status: Unknown if Ever Smoked Family History: Reviewed & Not Pertinent, CAD, CVA, DM, Hyperlipidemia, Hypertension, Malignancy Patient has homicidal ideation: No - Past Medical History Cardiac Medical History: Reports: Hx Congestive Heart Failure - EF is 25-30% in 01/2020, + diastolic dysfunction, Hx Coronary Artery Disease, Hx DVT, Hx Heart Attack, Hx Hypercholesterolemia, Hx Hypertension, Hx Peripheral Vascular Disease, Hx Pulmonary Embolism Denies: Hx Atrial Fibrillation Pulmonary Medical History: Reports: Hx Bronchitis, Hx COPD, Hx Pneumonia, Hx Respiratory Failure Denies: Hx Asthma, Hx Sleep Apnea Neurological Medical History: Denies: Hx Migraine, Hx Seizures Endocrine Medical History: Reports: Hx Diabetes Mellitus Type 2 - insulin depen dent. Denies: Hx Diabetes Mellitus Type 1, Hx Hyperthyroidism, Hx Hypothyroidism Renal/ Medical History: Reports: Hx End Stage Renal Disease, Hx Hemodialysis. Denies: Hx Peritoneal Dialysis GI Medical History: Reports: Hx Gastroesophageal Reflux Disease. Denies: Hx Cirrhosis, Hx Crohn's Disease, Hx Hepatitis, Hx Ulcerative Colitis Musculoskeletal Medical History: Reports Hx Arthritis, Denies Hx Fibromyalgia, 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 bilat AKA, Reports Hx Musculoskeletal Trauma Skin Medical History: Denies Hx Eczema, Denies Hx Psoriasis Psychiatric Medical History: Reports: Hx Depression Traumatic Medical History: Denies: Hx Traumatic Brain Injury Infectious Medical History: Reports: Hx HIV - noncompliant with meds. Denies: Hx Hepatitis Past Surgical History: Reports: Hx Orthopedic Surgery - bilateral amputation, R BKA, L AKA, Hx Vascular Surgery - IVC filter, thrombectomy 05/18/2018 left arm, Other - Tunnel graft right axillary femoral bypass, dialysis fistula LUE - Immunizations Immunizations up to date: Yes Hx Diphtheria, Pertussis, Tetanus Vaccination: Yes Hx Pneumococcal Vaccination: 07/21/10 Review of Systems - Review of Systems Notes: Review of systems limited due to patient being in respiratory distress. CONSTITUTIONAL: No fever CARDIOVASCULAR: No chest pain RESPIRATORY: Positive for chronic cough. Positive for shortness of breath. GENITOURINARY: Makes urine HEMATOLOGIC: No unusual bruising or bleeding. Physical Exam - Vital signs Vitals: Resp BP 24 H 174/123 H 06/26/20 09:22 06/26/20 09:22 - General General appearance: Anxious In distress: Moderate Notes: GENERAL: Moderate respiratory distress HEAD: Normal with no signs of head trauma. EYES: Conjunctiva normal, no discharge. EARS: Hearing grossly intact. NOSE: Normal. NECK: Normal range of motion, no tenderness, supple, no lymphadenopathy, No adenopathy, no JVD. CHEST: Coarse lung sounds bilaterally. CARDIAC: Regular rate and rhythm. VASCULAR: No Edema. ABDOMEN: Normal and soft MUSCULOSKELETAL: Bilateral lower extremity amputations. NEUROLOGICAL: Alert and oriented x 3. No focal sensory or strength deficits. Speech normal. Follows commands appropriately. PSYCHIATRIC: Normal Affect, judgement and mood. SKIN: Normal appearance with no rashes or lesions. Course - Re-evaluation Re-evalutation: 06/26/20 10:20 Patient presents in respiratory distress. He was placed on BiPAP by nursing staff. On my evaluation, patient is having increased work of breathing. He is sitting up in bed with respiratory distress. O2 saturations are 100% on BiPAP. On review of patient's x-ray, there is concern for bilateral patchy infiltrates versus edema. Patient will be Covid tested. He will also be placed on nitro as I am concerned for flash pulmonary edema as he was very hypertensive. Nitro was ordered but patient improved with BiPAP so it was not started. I discussed with Dr. Renteria from nephrology. She states they will likely need to dialyze him today. Spoke with the hospitalist who will admit the patient. He is acidotic. He is doing much better on BiPAP. I did order Rocephin and azithromycin to cover for pneumonia. His Covid test was negative. Patient is very agreeable to the plan. 06/26/20 11:14 06/26/20 14:47 - Vital Signs Vital signs: Temp Pulse Resp BP Pulse Ox 20 140/87 H 100 06/26/20 13:30 06/26/20 13:30 06/26/20 13:30 - Laboratory Result Diagrams: 06/26/20 15:40 06/26/20 09:20 Laboratory results interpreted by me: 06/26/20 06/26/20 06/26/20 09:20 09:20 09:20 WBC 11.7 H RBC 3.57 L Hgb 11.2 L Hct 34.5 L RDW 15.7 H Absolute Lymphs (auto) 4.9 H PT Carbonic Acid 1.86 H ABG pH 7.19 L* ABG pCO2 61.8 H ABG pO2 213.6 H ABG O2 Saturation 99.2 H Potassium 5.2 H BUN 36 H Creatinine 8.85 H Est GFR ( Amer) 7 L Est GFR (MDRD) Non-Af 6 L Glucose 209 H Lactic Acid Calcium 8.3 L Direct Bilirubin 0.8 H NT-Pro-B Natriuret Pep 06/26/20 06/26/20 06/26/20 09:20 09:20 09:20 WBC RBC Hgb Hct RDW Absolute Lymphs (auto) PT 16.2 H Carbonic Acid ABG pH ABG pCO2 ABG pO2 ABG O2 Saturation Potassium BUN Creatinine Est GFR ( Amer) Est GFR (MDRD) Non-Af Glucose Lactic Acid 3.3 H Calcium Direct Bilirubin NT-Pro-B Natriuret Pep 90181 H - Diagnostic Test Radiology reviewed: Image reviewed, Reports reviewed - EKG Interpretation by Me EKG shows normal: Sinus rhythm Rate: Tachycardia Rhythm: NSR When compared to previous EKG there are: Previous EKG unavailable Additional EKG results interpreted by me: 06/26/20 10:21 Sinus tachycardia at a rate of 119. QTc 468. Significant artifact present. No previous EKG immediately available for comparison. Critical Care Note - Critical Care Note Total time excluding time spent on procedures (mins): 40 Comments: Upon my evaluation, this patient had a high probability of imminent or life- threatening deterioration due to acute respiratory failure, which required my direct attention, intervention, and personal management. I have personally divided 40 minutes of critical care time. Time includes review of laboratory data, radiology results, discussion with consultants, and monitoring for potential decompensation. Interventions were performed as documented above. Discharge - Discharge Clinical Impression: Elevated brain natriuretic peptide (BNP) level Acute respiratory failure Qualifiers: Respiratory failure complication: hypercapnia Qualified Code(s): J96.02 - Acute respiratory failure with hypercapnia Pulmonary edema Qualifiers: Chronicity: acute Qualified Code(s): J81.0 - Acute pulmonary edema Condition: Serious Disposition: ADMITTED INPATIENT Admitting Provider: [facility] Unit Admitted: [facility]
[2020-06-26 10:28] LABS: ALBUMIN 4.4 g/dL (3.5-5.0); ALKALINE PHOSPHATASE 74 U/L (38-126); ANION GAP 18 (5-19); ASPARTATE AMINO TRANSFERASE 31 U/L (17-59); BILIRUBIN,DIRECT 0.8 mg/dL (0.0-0.4); BILIRUBIN,TOTAL 0.8 mg/dL (0.2-1.3); BLOOD UREA NITROGEN 36 mg/dL (7-20); CALCIUM 8.3 mg/dL (8.4-10.2); CARBON DIOXIDE 22 mmol/L (22-30); CHLORIDE 101 mmol/L (98-107); GLUCOSE 209 mg/dL (75-110); POTASSIUM 5.2 mmol/L (3.6-5.0); TOTAL PROTEIN 7.7 g/dL (6.3-8.2)
[2020-06-26] MEDS ORDERED: CEFTRIAXONE 1 GM/D5W RTU 1 GM/50 ML RTUPB IV ONE ×2 (10:59→11:29)
[2020-06-26 11:25] LABS: INTERNATIONAL RATION (INR) 1.28; PROTHROMBIN TIME 16.2 SEC (11.4-15.4)
[2020-06-26] MEDS ORDERED: AZITHROMYCIN INJ 500 MG VIAL IV ONE (11:29)
[2020-06-26] MEDS ORDERED: NORMAL SALINE 1000 ML 1,000 ML IV PRN (13:14)
--- NOTE | 2020-06-26 14:29 | PDOC H&P ---
History of Present Illness Admission Date/PCP: LUIS CROW MD Patient complains of: Shortness of breath History of Present Illness: KRISTY CANTU is a 65 year old male He has multiple medical problems including congestive heart failure with ejection fraction 25 to 30% and diastolic dysfunction in January 2020 with echocardiogram. He has end-stage renal disease and he is receiving hemodialysis on Friday and Friday each week. Last hemodialysis was on the previous Friday. He is suffering from HIV disease, he does not have any chronic opportunistic infection. He was doing reasonably well yesterday, this morning he woke up with significant shortness of breath. He was coughing and he had yellowish-greenish sputum. He did not have any fever. No shaking or chills. He came to the emergency department with increasing shortness of breath. He was in significant respiratory distress, he was placed on BiPAP. His blood pressure was significantly elevated and it was plan to start him on nitroglycerin drip. Once his respiratory distress improved his blood pressure normalized and he did not require nitroglycerin drip. He did not have any chest pain. Now he maintains good oxygen saturation on BiPAP. He was started on ceftriaxone and Zithromax for community-acquired pneumonia. When I arrived to see him he was on BiPAP, he appeared to be comfortable and had probably only mild distress. He was able to answer questions, obviously limited on a limited way due to the fact that he still had a BiPAP mask on. Past Medical History Cardiac Medical History: Reports: Coronary Artery Disease, DVT, Myocardial Infarction, Hyperlipidema, Hypertension, Peripheral Vascular Disease, Pulmonary Embolism Denies: Atrial Fibrillation Pulmonary Medical History: Reports: Bronchitis, Chronic Obstructive Pulmonary Disease (COPD), Pneumonia, Respiratory Failure Denies: Asthma, Sleep Apnea Neurological Medical History: Denies: Migraine, Seizures Endocrine Medical History: Denies: Diabetes Mellitus Type 1, Diabetes Mellitus Type 2, Hyperthyroidism, Hypothyroidism Renal/ Medical History: Reports: End Stage Renal Disease GI Medical History: Reports: Gastroesophageal Reflux Disease Denies: Cirrhosis, Crohn's Disease, Hepatitis, Ulcerative Colitis Musculoskeltal Medical History: Reports: Arthritis Denies: Fibromyalgia Skin Medical History: Denies: Eczema, Psoriasis Psychiatric Medical History: Reports: Depression Traumatic Medical History: Denies: Traumatic Brain Injury Hematology: Reports: Anemia, Bleeding Tendencies - Since being on warfarin Infectious Medical History: Reports: HIV - noncompliant with meds Past Surgical History Past Surgical History: Reports: Orthopedic Surgery - bilateral amputation, R BKA, L AKA, Vascular Surgery - Thrombectomy left arm, Dialysis fistula, Right subclavian femoral bypass,, Other - Tunnel graft right axillary femoral bypass, dialysis fistula LUE Social History Smoking Status: Current Every Day Smoker Frequency of Alcohol Use: None Hx Recreational Drug Use: Yes Drugs: Cocaine Hx Prescription Drug Abuse: No Family History Family History: Reviewed & Not Pertinent, CAD, CVA, DM, Hyperlipidemia, Hypertension, Malignancy Parental Family History Reviewed: Yes Children Family History Reviewed: NA Sibling(s) Family History Reviewed.: NA Medication/Allergy Home Medications: Abacavir Sulfate [Abacavir 300 mg Tablet] 300 mg PO BID 06/10/20 Albuterol Sulfate [Ventolin Hfa 8 gm Mdi] 2 puff IH Q4HP PRN 06/10/20 Bupropion HCl [Bupropion HCl Sr] 150 mg PO Q12 06/10/20 Calcium Acetate [Phoslo 667 Mg Capsule] mg PO AC 06/10/20 Carvedilol 25 mg PO Q12 06/10/20 Clonidine HCl [Catapres 0.2 mg Tablet] 0.2 mg PO TID 06/10/20 Dolutegravir Sodium [Tivicay] 50 mg PO DAILY 06/10/20 Doxazosin Mesylate [Cardura 2 mg Tablet] 2 mg PO DAILY 06/10/20 Furosemide [Lasix] 80 mg PO BID 06/10/20 Hydralazine HCl [Apresoline 50 mg Tablet] 50 mg PO Q8 06/10/20 Isosorbide Mononitrate [Imdur 30 mg Tablet.er] mg PO DAILY 06/10/20 Lamivudine [Epivir] 5 mg PO DAILY 06/10/20 Nifedipine [Nifedipine ER] 90 mg PO 06/10/20 Hydroxyzine HCl [Atarax 10 mg Tablet] 25 mg PO TIDP PRN 06/26/20 Sevelamer Carbonate [Renvela] 06/26/20 Warfarin Sodium [Jantoven 3 mg Tablet] 3 mg PO 06/26/20 Allergies/Adverse Reactions: calcitriol Allergy (Verified 06/10/20 08:24) itching Review of Systems Constitutional: PRESENT: fatigue, weakness Ears: ABSENT: hearing changes Cardiovascular: PRESENT: orthropnea Respiratory: PRESENT: dyspnea, sputum - Greenish-yellowish sputum Gastrointestinal: ABSENT: abdominal pain, constipation, diarrhea, hematemesis, hematochezia, nausea, vomiting Musculoskeletal: ABSENT: joint swelling Integumentary: ABSENT: rash, wounds Neurological: ABSENT: abnormal gait, abnormal speech, confusion, dizziness, focal weakness, syncope Endocrine: ABSENT: cold intolerance, heat intolerance, polydipsia, polyuria Hematologic/Lymphatic: ABSENT: easy bleeding, easy bruising Physical Exam Vital Signs: Temp Pulse Resp BP Pulse Ox 14 129/83 H 100 06/26/20 11:01 06/26/20 11:01 06/26/20 11:01 Intake & Output 06/25/20 06/26/20 06/27/20 06:59 06:59 06:59 Intake Total 50 Balance 50 Weight 77.111 kg General appearance: PRESENT: mild distress - Very mild distress while on BiPAP. Head exam: PRESENT: atraumatic, normocephalic Eye exam: PRESENT: conjunctiva pink, EOMI, PERRLA. ABSENT: scleral icterus Respiratory exam: PRESENT: rales - Over both lower lung fisher, rhonchi Cardiovascular exam: PRESENT: gallop - S3 gallop, systolic murmur - 2/6 systolic murmur Pulses: PRESENT: normal radial pulses Vascular exam: PRESENT: other - Dialysis fistula left arm GI/Abdominal exam: PRESENT: normal bowel sounds, soft. ABSENT: distended, guarding, mass, organolmegaly, rebound, tenderness Extremities exam: PRESENT: other - Right below-knee amputation, left abowe the knee amputation Neurological exam: PRESENT: alert, oriented to person, oriented to place, oriented to time, oriented to situation Psychiatric exam: PRESENT: appropriate affect, normal mood. ABSENT: homicidal ideation, suicidal ideation Skin exam: PRESENT: dry, intact, warm. ABSENT: cyanosis, rash Results Laboratory Results: 06/26/20 09:20 06/26/20 09:20 06/26/20 06/26/20 06/26/20 09:20 09: 09:20 WBC 11.7 H RBC 3.57 L Hgb 11.2 L Hct 34.5 L MCV 96 MCH 31.4 MCHC 32.6 RDW 15.7 H Plt Count 252 Seg Neutrophils % 46.1 Carbonic Acid 1.86 H HCO3/H2CO3 Ratio 12:1 ABG pH 7.19 L* ABG pCO2 61.8 H ABG pO2 213.6 H ABG HCO3 23.1 ABG O2 Saturation 99.2 H ABG Base Excess -5.8 FiO2 45% Sodium 140.9 Potassium 5.2 H Chloride 101 Carbon Dioxide 22 Anion Gap 18 BUN 36 H Creatinine 8.85 H Est GFR ( Amer) 7 L Glucose 209 H Lactic Acid Calcium 8.3 L Total Bilirubin 0.8 AST 31 Alkaline Phosphatase 74 Total Protein 7.7 Albumin 4.4 06/26/20 09:20 WBC RBC Hgb Hct MCV MCH MCHC RDW Plt Count Seg Neutrophils % Carbonic Acid HCO3/H2CO3 Ratio ABG pH ABG pCO2 ABG pO2 ABG HCO3 ABG O2 Saturation ABG Base Excess FiO2 Sodium Potassium Chloride Carbon Dioxide Anion Gap BUN Creatinine Est GFR ( Amer) Glucose Lactic Acid 3.3 H Calcium Total Bilirubin AST Alkaline Phosphatase Total Protein Albumin 06/26/20 06/26/20 09:20 09:20 Troponin I 0.111 NT-Pro-B Natriuret Pep 05312 H Impressions: Chest X-Ray 06/26/20 09:32 IMPRESSION: Cardiomegaly and bilateral basilar predominant patchy parenchymal opacities. Differential considerations include pulmonary edema and multifocal pneumonia. Assessment and Plan - Diagnosis (1) Acute respiratory failure with hypoxia and hypercapnia Is this a current diagnosis for this admission?: Yes Plan: Continue BiPAP for now. Hopefully once hemodialysis treatment was completed BiPAP can be discontinued. Arterial blood gas after hemodialysis treatment. (2) Pneumonia Qualifiers: Pneumonia type: due to unspecified organism Laterality: bilateral Lung location: lower lobe of lung Qualified Code(s): J18.9 - Pneumonia, unspecified organism Is this a current diagnosis for this admission?: Yes Plan: Continue ceftriaxone and azithromycin. Blood and sputum cultures. Hopefully he can be converted to oral antibiotics soon. (3) CHF (congestive heart failure) Qualifiers: Heart failure type: combined systolic and diastolic Heart failure chronicity: acute on chronic Qualified Code(s): I50.43 - Acute on chronic combined systolic (congestive) and diastolic (congestive) heart failure Is this a current diagnosis for this admission?: Yes Plan: Hemodialysis treatment. (4) ESRD (end stage renal disease) on dialysis Is this a current diagnosis for this admission?: Yes (5) Chronic obstructive pulmonary disease Qualifiers: COPD type: unspecified COPD Qualified Code(s): J44.9 - Chronic obstructive pulmonary disease, unspecified Is this a current diagnosis for this admission?: Yes Plan: No significant wheezing, no sign of COPD exacerbation. Continue bronchodilator as needed. (6) Hypertension Qualifiers: Is this a current diagnosis for this admission?: Yes Plan: Home blood pressure medications. If necessary make adjustment. (7) Fluid overload Qualifiers: Hypervolemia type: other Qualified Code(s): E87.79 - Other fluid overload Is this a current diagnosis for this admission?: Yes Plan: Hemodialysis treatment. This is related to heart failure and kidney failure. (8) HIV (human immunodeficiency virus infection) Qualifiers: HIV symptom status: asymptomatic Qualified Code(s): Z21 - Asymptomatic human immunodeficiency virus [HIV] infection status Is this a current diagnosis for this admission?: Yes Plan: Continue with his usual HIV medications. (9) History of venous thromboembolism Is this a current diagnosis for this admission?: Yes Plan: DVT prophylaxis with heparin. INR is subtherapeutic. He is only partially compliant with warfarin. (10) intermediate designer (current) use of anticoagulants Is this a current diagnosis for this admission?: Yes Plan: Continue warfarin, monitor INR. - Plan Summary Summary: He was admitted to intermediate care unit with acute respiratory failure secondary to volume overload and community-acquired pneumonia. At present he is on BiPAP, hopefully after hemodialysis treatment BiPAP can be discontinued. He was started on ceftriaxone and azithromycin. Hopefully he can be converted to oral antibiotic tomorrow. He was placed in observation, hopefully after hemodialysis treatment his volume status normalizes and he can be discharged home tomorrow with oral antibiotic. - Time Time Spent with patient: 35 or more minutes Medications reviewed and adjusted accordingly: Yes Anticipated Discharge Disposition: Home, Self Care Anticipated Discharge Timeframe: within 24 hours - Inpatient Certification Based on my medical assessment, after consideration of the patient's comorbidities, presenting symptoms, or acuity I expect that the services needed warrant INPATIENT care.: Yes I certify that my determination is in accordance with my understanding of Medicare's requirements for reasonable and necessary INPATIENT services [42 CFR 412.3e].: Yes Medical Necessity: Risk of Complication if Not Cared For in Hospital
[2020-06-26] MEDS: HEPARIN SOD (PORCINE) 5,000 UNIT/ML 1 ML VIAL SUBCUT SCH ×2 (14:43→21:26)
[2020-06-26] MEDS ORDERED: HYDROXYZINE HCL 10 MG TABLET PO PRN (15:32)
[2020-06-26 15:53] LABS: HEMOGLOBIN 10.1 g/dL (13.5-17.0); MEAN CORPUSCULAR HEMOGLOBIN 31.6 pg (27.0-33.4); MEAN CORPUSCULAR HGB CONC 33.7 g/dL (32.0-36.0); MEAN CORPUSCULAR VOLUME 94 fl (80-97); PLATELET COUNT 210 10^3/uL (150-450); RED CELL DISTRIBUTION WIDTH 15.4 % (11.5-14.0); WHITE BLOOD COUNT 8.5 10^3/uL (4.0-10.5)
[2020-06-26] MEDS ORDERED: MORPHINE SULFATE 10 MG/ML INJ IV ONE (16:39)
--- NOTE | 2020-06-26 16:39 | EKG REPORT ---
SEVERITY:- ABNORMAL ECG - SINUS TACHYCARDIA LEFT ANTERIOR FASCICULAR BLOCK LEFT VENTRICULAR HYPERTROPHY : Confirmed by: Beulah Storm 26-Jun-2020 16:39:21
[2020-06-26] MEDS ORDERED: ALBUTEROL SULFATE HFA (90 MCG/PUFF) 8 GM MDI IH PRN (17:00)
[2020-06-26] MEDS ORDERED: SEVELAMER CARBONATE PO SCH (17:00)
[2020-06-26] MEDS: CLONIDINE HCL 0.2 MG TABLET PO SCH ×2 (17:26→21:25)
[2020-06-26] MEDS: CALCIUM ACETATE 667 MG CAPSULE PO SCH (17:27)
[2020-06-26] MEDS ORDERED: ABACAVIR SULFATE 300 MG PO SCH (18:00)
[2020-06-26] MEDS ORDERED: DEXTROMETHORPHAN PO SCH (18:00)
[2020-06-26] MEDS ORDERED: [UNRECOGNIZED DRUG - OTHER] PO SCH (18:00)
[2020-06-26] MEDS ORDERED: GUAIFENESIN PO SCH (18:00)
--- NOTE | 2020-06-26 18:38 | PDOC CONSULTATION ---
Consultation Consult Date: 06/26/20 Provider Consulted: KELLI MAYNARD Consult reason:: ESRD with Acute respiratory distress History of Present Illness Admission Date/PCP: 06/26/20 14:21 LUIS CROW MD History of Present Illness: KRISTY CANTU is a 65 year old -[place] gentleman known to me with history of ESRD on maintenance hemodialysis 3 times a week, hypertension, hyperlipidemia, HIV infection, CAD status post MD, CHF with EF of 25 to 30% and diastolic dysfunction, history of PE on warfarin who was brought in to the ED by EMS because of acute onset of shortness of breath. Patient states that this morning on his way to work he started experiencing shortness of breath which persisted so he called 911 and was brought to the ED. He also had some chest pains. He was initially placed on BiPAP. He reports cough productive of some yellowish-greenish phlegm which he had for a while. He denies any fever. Initial evaluation showed a chest x-ray with bilateral basilar patchy opacities which could either be pulmonary edema versus multifocal pneumonia. Patient's last dialysis was last Friday. Due to possibility of pulmonary edema I was then called for hemodialysis. I am seeing the patient currently well on hemodialysis. Is sitting down on bed comfortably currently without any oxygen and is on room air with oxygen saturation of 95%. He does not appear to be in distress. He is currently tolerating dialysis without any much problems. Past Medical History Cardiac Medical History: Reports: CHF-Diastolic, Coronary Artery Disease, DVT, Hyperlipidemia, Hypertension-primary, Myocardial Infarction, Peripheral Vascular Disease, Pulmonary Embolism Pulmonary Medical History: Reports: Bronchitis, Chronic Obstructive Pulmonary Disease (COPD), Pneumonia, Respiratory Failure Endocrine Medical History: Reports: Diabetes Mellitus Type 2 - insulin dependent Renal/ Medical History: Reports: End Stage Renal Disease, Hyperphosphatemia, Metabolic Acidosis GI Medical History: Reports: Gastroesophageal Reflux Disease Musculoskeltal Medical History: Reports: Arthritis Psychiatric Medical History: Reports: Depression Traumatic Medical History: Denies: Traumatic Brain Injury Infectious Medical History: Reports: HIV - noncompliant with meds Hematology Medical History: Reports Anemia of Chronic Kidney Disease Past Surgical History Past Surgical History: Reports: Dialysis Access Surgery AVF, Orthopedic Surgery - bilateral amputation, R BKA, L AKA, Vascular Surgery - IVC filter, thrombectomy 05/18/2018 left arm, Other - Tunnel graft right axillary femoral by pass, dialysis fistula LUE Social History Information Source: Patient, [facility] Records Smoking Status: Unknown if Ever Smoked Electronic Cigarette use?: No Frequency of Alcohol Use: None Hx Recreational Drug Use: Yes Drugs: Cocaine Hx Prescription Drug Abuse: No Family History Family History: Reviewed & Not Pertinent Parental Family History Reviewed: Yes Children Family History Reviewed: Yes Sibling(s) Family History Reviewed.: Yes Medication/Allergy Home Medications: Abacavir Sulfate [Abacavir 300 mg Tablet] 300 mg PO BID 06/10/20 Albuterol Sulfate [Ventolin Hfa 8 gm Mdi] 2 puff IH Q4HP PRN 06/10/20 Bupropion HCl [Bupropion HCl Sr] 150 mg PO Q12 06/10/20 Calcium Acetate [Phoslo 667 Mg Capsule] 1,334 mg PO AC 06/10/20 Carvedilol 25 mg PO Q12 06/10/20 Clonidine HCl [Catapres 0.2 mg Tablet] 0.2 mg PO TID 06/10/20 Dolutegravir Sodium [Tivicay] 50 mg PO DAILY 06/10/20 Doxazosin Mesylate [Cardura 2 mg Tablet] 2 mg PO QHS 06/10/20 Furosemide [Lasix] 80 mg PO BID 06/10/20 Hydralazine HCl [Apresoline 50 mg Tablet] 50 mg PO Q8 06/10/20 Isosorbide Mononitrate [Imdur 30 mg Tablet.er] 150 mg PO DAILY 06/10/20 Lamivudine [Epivir] 50 mg PO DAILY 06/10/20 Gabapentin [Neurontin 100 mg Capsule] 100 mg PO QHS 06/26/20 Guaifenesin/Dextromethorphan [Mucinex Dm ER 600-30 mg Tablet] 1 each PO BID 06/26/20 Hydroxyzine HCl [Atarax 10 mg Tablet] 25 mg PO TIDP PRN 06/26/20 Nifedipine [Nifedipine ER] 120 mg PO DAILY 06/26/20 Sevelamer Carbonate [Renvela] 1 packet PO MEALS 06/26/20 Warfarin Sodium [Jantoven 3 mg Tablet] 3 mg PO QHS MDD 7 MG 06/26/20 Warfarin Sodium [Jantoven 4 mg Tablet] 4 mg PO QHS MDD 7 MG 06/26/20 Allergies/Adverse Reactions: calcitriol Allergy (Verified 06/10/20 08:24) itching Review of Systems All systems: reviewed and no additional remarkable complaints except as stated Review of Systems: Constitutional: ABSENT: chills, fatigue, fever(s), headache(s), weight gain, weight loss Eyes: ABSENT: visual disturbances Ears: ABSENT: hearing changes Cardiovascular: ABSENT: Edema, orthropnea, palpitations; admits chest pain and worsening shortness of breath Respiratory: ABSENT: Hemoptysis; admits cough with sputum production Gastrointestinal: ABSENT: abdominal pain, constipation, diarrhea, hematemesis, hematochezia, nausea, vomiting Genitourinary: ABSENT: dysuria, hematuria Musculoskeletal: ABSENT: joint swelling Integumentary: ABSENT: rash, wounds Neurological: ABSENT: abnormal gait, abnormal speech, confusion, dizziness, focal weakness, numbness, syncope Psychiatric: ABSENT: anxiety, depression Endocrine: ABSENT: cold intolerance, heat intolerance, polydipsia, polyuria Hematologic/Lymphatic: ABSENT: easy bleeding, easy bruising, lymphadenopathy Physical Exam Vital Signs: Temp Pulse Resp BP Pulse Ox 32 H 140/87 H 98 06/26/20 15:40 06/26/20 13:30 06/26/20 15:40 Intake & Output 06/25/20 06/26/20 06/27/20 06:59 06:59 06:59 Intake Total 50 Balance 50 Weight 77.111 kg Vitals during dialysis: Blood pressure 139/79, heart rate of 93, oxygen saturation 95% at room air, blood flow rate of 450 mL/min and dialysate flow rate of 800 mL/min. Exam: General appearance: No acute distress, cooperative, well-developed, well- nourished Head exam: PRESENT: atraumatic, normocephalic Eye exam: PRESENT: Conjunctiva slightly pale, EOMI, PERRLA. ABSENT: conjunctival injection, scleral icterus Mouth exam: PRESENT: moist, neck supple, tongue midline Neck exam: PRESENT: full ROM. ABSENT: carotid bruit, JVD, lymphadenopathy, thyromegaly Respiratory exam: PRESENT: Diminished to auscultation bilaterally. ABSENT: rales, rhonchi, stridor, wheezes Cardiovascular exam: PRESENT: RRR, +S1, +S2. ABSENT: systolic murmur Pulses: PRESENT: normal radial pulses, normal dorsalis pedis pulses GI/Abdominal exam: PRESENT: normal bowel sounds, soft. ABSENT: guarding, mass, tenderness Rectal exam: Deferred Extremities exam: PRESENT: full ROM. Status post bilateral AKA ABSENT: calf tenderness, pedal edema Musculoskeletal: PRESENT: full ROM. Bilateral amputee Neurological exam: PRESENT: alert, Awake, Oriented to person, Oriented to place, Oriented to time, reflexes normal, CN II-XII grossly intact. ABSENT: motor sensory deficit Psychiatric exam: PRESENT: appropriate affect, normal mood. ABSENT: homicidal ideation, suicidal ideation Skin exam: PRESENT: intact, dry, warm. ABSENT: rash Results Laboratory Results: 06/26/20 15:40 06/26/20 09:20 06/26/20 06/26/20 06/26/20 09:20 09:20 09:20 WBC 11.7 H RBC 3.57 L Hgb 11.2 L Hct 34.5 L MCV 96 MCH 31.4 MCHC 32.6 RDW 15.7 H Plt Count 252 Seg Neutrophils % 46.1 Carbonic Acid 1.86 H HCO3/H2CO3 Ratio 12:1 ABG pH 7.19 L* ABG pCO2 61.8 H ABG pO2 213.6 H ABG HCO3 23.1 ABG O2 Saturation 99.2 H ABG Base Excess -5.8 FiO2 45% Sodium 140.9 Potassium 5.2 H Chloride 101 Carbon Dioxide 22 Anion Gap 18 BUN 36 H Creatinine 8.85 H Est GFR ( Amer) 7 L Glucose 209 H Lactic Acid Calcium 8.3 L Total Bilirubin 0.8 AST 31 Alkaline Phosphatase 74 Total Protein 7.7 Albumin 4.4 06/26/20 06/26/20 09:20 15:40 WBC 8.5 RBC 3.20 L Hgb 10.1 L Hct 30.0 L MCV 94 MCH 31.6 MCHC 33.7 RDW 15.4 H Plt Count 210 Seg Neutrophils % Carbonic Acid HCO3/H2CO3 Ratio ABG pH ABG pCO2 ABG pO2 ABG HCO3 ABG O2 Saturation ABG Base Excess FiO2 Sodium Potassium Chloride Carbon Dioxide Anion Gap BUN Creatinine Est GFR ( Amer) Glucose Lactic Acid 3.3 H Calcium Total Bilirubin AST Alkaline Phosphatase Total Protein Albumin 06/26/20 06/26/20 09:20 09:20 Troponin I 0.111 NT-Pro-B Natriuret Pep 25500 H Impressions: Chest X-Ray 06/26/20 09:32 IMPRESSION: Cardiomegaly and bilateral basilar predominant patchy parenchymal opacities. Differential considerations include pulmonary edema and multifocal pneumonia. Assessment & Plan - Diagnosis (1) Acute respiratory failure with hypoxia and hypercapnia Is this a current diagnosis for this admission?: Yes Plan: Presently due to acute pulmonary edema versus multifocal pneumonia. Initially requiring BiPAP but currently comfortable on room air. (2) ESRD (end stage renal disease) on dialysis Is this a current diagnosis for this admission?: Yes Plan: We will do dialysis today for 3 hours, using the patient's AV fistula, with 2 potassium bath, blood flow rate of 450 mL per minute, dialysate flow rate of 800 mL per minute, ultrafiltration 3 to 4 L as tolerated, no heparin and no Retacrit during dialysis. Discussed with her dialysis nurse. Ultrafiltration will be adjusted accordingly. Patient will be monitored throughout dialysis treatment. (3) Pulmonary edema Qualifiers: Chronicity: acute Qualified Code(s): J81.0 - Acute pulmonary edema Is this a current diagnosis for this admission?: Yes (4) Pneumonia Qualifiers: Pneumonia type: due to unspecified organism Laterality: bilateral Lung location: lower lobe of lung Qualified Code(s): J18.9 - Pneumonia, unspecified organism Is this a current diagnosis for this admission?: Yes Plan: Empirically started on ceftriaxone. Chest x-ray should be repeated after dialysis to see if it clears up. (5) Hyperkalemia Is this a current diagnosis for this admission?: Yes Plan: Mild. Dialysis today. (6) Anemia in chronic kidney disease, on chronic dialysis Is this a current diagnosis for this admission?: Yes Plan: Currently does not require any Retacrit.
[2020-06-26] MEDS: FUROSEMIDE 80 MG TABLET PO SCH ×2 (19:51→21:18)
[2020-06-26] MEDS: HYDRALAZINE HCL 50 MG TABLET PO SCH (21:22)
[2020-06-26] MEDS: ACETAMINOPHEN 325 MG TABLET PO PRN (21:22)
[2020-06-26] MEDS: GABAPENTIN 100 MG CAPSULE PO SCH (21:22)
[2020-06-26] MEDS: CARVEDILOL 12.5 MG TABLET PO SCH (21:25)
[2020-06-26] MEDS: DOXAZOSIN MESYLATE 2 MG TABLET PO SCH (21:26)
[2020-06-26] MEDS: BUPROPION HCL 150 MG PO SCH (21:41)
[2020-06-26] MEDS ORDERED: (PENDING PHARMACY ID) (Carvedilol [Carvedilol] 25 MG Tablet) PO SCH (22:00)
[2020-06-26] MEDS ORDERED: WARFARIN SODIUM 5 MG TABLET PO SCH (22:00)
[2020-06-27] MEDS: CLONIDINE HCL 0.2 MG TABLET PO SCH ×3 (05:17→22:55)
[2020-06-27] MEDS: HYDRALAZINE HCL 50 MG TABLET PO SCH ×3 (05:17→22:55)
[2020-06-27] MEDS: HEPARIN SOD (PORCINE) 5,000 UNIT/ML 1 ML VIAL SUBCUT SCH ×3 (05:17→22:55)
[2020-06-27 07:01] LABS: ABSOLUTE EOSINOPHILS # (AUTO) 0.3 10^3/uL (0.0-0.6); ABSOLUTE LYMPHOCYTES (AUTO) 2.3 10^3/uL (0.5-4.7); ABSOLUTE MONOCYTES (AUTO) 0.8 10^3/uL (0.1-1.4); BASOPHILS % (AUTO) 0.7 % (0-2); EOSINOPHILS % (AUTO) 4.8 % (0-6); HEMATOCRIT 32.4 % (37.9-51.0); HEMOGLOBIN 10.7 g/dL (13.5-17.0); LYMPHOCYTES % (AUTO) 35.1 % (13-45); MEAN CORPUSCULAR HEMOGLOBIN 31.1 pg (27.0-33.4); MEAN CORPUSCULAR VOLUME 94 fl (80-97); MONOCYTES % (AUTO) 12.6 % (3-13); PLATELET COUNT 191 10^3/uL (150-450); RED BLOOD COUNT 3.44 10^6/uL (4.35-5.55); RED CELL DISTRIBUTION WIDTH 15.5 % (11.5-14.0); SEGMENTED NEUTROPHILS % (AUTO) 46.8 % (42-78); TOTAL CELLS COUNTED % (AUTO) 100 %; WHITE BLOOD COUNT 6.4 10^3/uL (4.0-10.5)
[2020-06-27 07:14] LABS: INTERNATIONAL RATION (INR) 1.41; PROTHROMBIN TIME 17.4 SEC (11.4-15.4)
[2020-06-27 07:24] LABS: ALKALINE PHOSPHATASE 65 U/L (38-126); ANION GAP 12 (5-19); ASPARTATE AMINO TRANSFERASE 20 U/L (17-59); BILIRUBIN,DIRECT 0.4 mg/dL (0.0-0.4); BILIRUBIN,TOTAL 0.5 mg/dL (0.2-1.3); BLOOD UREA NITROGEN 24 mg/dL (7-20); CALCIUM 8.7 mg/dL (8.4-10.2); CARBON DIOXIDE 29 mmol/L (22-30); CHLORIDE 95 mmol/L (98-107); GLUCOSE 129 mg/dL (75-110); POTASSIUM 4.4 mmol/L (3.6-5.0); TOTAL PROTEIN 6.9 g/dL (6.3-8.2)
--- NOTE | 2020-06-27 08:46 | RADIOLOGY REPORT (SQ) ---
EXAM DESCRIPTION: CHEST SINGLE VIEW IMAGES COMPLETED DATE/TIME: 06/27/2020 8:15 am REASON FOR STUDY: pneumonia ,chf COMPARISON: 06/26/2020. EXAM PARAMETERS: NUMBER OF VIEWS: One view. TECHNIQUE: Single frontal radiographic view of the chest acquired. RADIATION DOSE: NA LIMITATIONS: None. FINDINGS: LUNGS AND PLEURA: Improved aeration. Faint basilar densities have improved. MEDIASTINUM AND HILAR STRUCTURES: No masses. Contour normal. HEART AND VASCULAR STRUCTURES: Mild cardiomegaly. BONES: No acute findings. Degenerative changes in the spine. HARDWARE: None in the chest. OTHER: No other significant finding. IMPRESSION: IMPROVED AERATION IN THE LUNG BASES. TECHNICAL DOCUMENTATION: JOB ID: [id number] [employer]- All Rights Reserved Reading location - IP/workstation name: [email or web address]
[2020-06-27] MEDS: CALCIUM ACETATE 667 MG CAPSULE PO SCH ×4 (08:47→18:16)
[2020-06-27] MEDS ORDERED: DOLUTEGRAVIR SODIUM 50 MG PO SCH (10:00)
[2020-06-27] MEDS ORDERED: AZITHROMYCIN INJ 500 MG VIAL IV SCH (10:00)
[2020-06-27] MEDS ORDERED: LAMIVUDINE 10 MG/ML PO SCH (10:00)
[2020-06-27] MEDS ORDERED: NIFEDIPINE 60 MG PO SCH (10:00)
[2020-06-27] MEDS: NIFEDIPINE 30 MG TAB.ER.24 PO SCH (10:15)
[2020-06-27] MEDS: ISOSORBIDE MONONITRATE 30 MG TAB.ER.24H PO SCH (10:15)
[2020-06-27] MEDS: CARVEDILOL 12.5 MG TABLET PO SCH ×2 (10:16→22:55)
[2020-06-27] MEDS: FUROSEMIDE 80 MG TABLET PO SCH ×2 (10:18→18:17)
[2020-06-27] MEDS: CEFTRIAXONE 1 GM/D5W RTU 1 GM/50 ML RTUPB IV SCH (10:18)
[2020-06-27 10:31] LABS: ARTERIAL BLOOD BASE EXCESS 2.4 mmol/L; ARTERIAL BLOOD FIO2 ROOM AIR; ARTERIAL BLOOD H2CO3 1.14 mmol/L (1.05-1.35); ARTERIAL BLOOD HCO3 26.3 mmol/L (20-24); ARTERIAL BLOOD O2 SATURATION 96.7 % (94-98); ARTERIAL BLOOD PCO2 37.9 mmHg (35-45); ARTERIAL BLOOD PH 7.46 (7.35-7.45); ARTERIAL BLOOD PO2 82.6 mmHg (80-100); ARTERIAL BLOOD TOTAL CO2 27.5 mmol/L (23-27)
[2020-06-27] MEDS: BUPROPION HCL 150 MG PO SCH ×2 (12:01→23:02)
[2020-06-27] MEDS: AZITHROMYCIN 500 MG in DEXTROSE 5%-WATER 250 ML IV SCH (13:05)
--- NOTE | 2020-06-27 13:56 | PDOC PROGRESS REPORT ---
Subjective Date:: 06/27/20 Subjective:: KRISTY CANTU is a 65 year old male He has multiple medical problems including congestive heart failure with ejection fraction 25 to 30% and diastolic dysfunction in January 2020 with echocardiogram. He has end-stage renal disease and he is receiving hemodialysis on Friday and Friday each week. Last hemodialysis was on the previous Friday. He is suffering from HIV disease, he does not have any chronic opportunistic infection. He was doing reasonably well yesterday, this morning he woke up with significant shortness of breath. He was coughing and he had yellowish-greenish sputum. He did not have any fever. No shaking or chills. He came to the emergency department with increasing shortness of breath. He was in significant respiratory distress, he was placed on BiPAP. His blood pressure was significantly elevated and it was plan to start him on nitroglycerin drip. Once his respiratory distress improved his blood pressure normalized and he did not require nitroglycerin drip. He did not have any chest pain. Now he maintains good oxygen saturation on BiPAP. He was started on ceftriaxone and Zithromax for community-acquired pneumonia. When I arrived to see him he was on BiPAP, he appeared to be comfortable and had probably only mild distress. He was able to answer questions, obviously limited on a limited way due to the fact that he still had a BiPAP mask on. D2 06/27/20 He was seen and examined at bedside. He reports that his breathing is much better and he has been weaned off O2. He had dialysis yesterday. His BP has been much better at about 130s to 150s systolic. repeat CXR showed improvement of aeration in the lung bases which tells me that he likely had pulmonary edema rather than pneumonia. Reason For Visit: ACUTE RESPIRATORY FAILURE Physical Exam Vital Signs: Temp Pulse Resp BP Pulse Ox 97.9 F 80 18 123/69 95 06/27/20 11:22 06/27/20 11:22 06/27/20 11:22 06/27/20 11:22 06/27/20 11:22 Intake & Output 06/26/20 06/27/20 06/28/20 06:59 06:59 06:59 Intake Total 476 50 Output Total 4100 Balance -3624 50 Weight 75.7 kg General appearance: PRESENT: no acute distress, cooperative Head exam: PRESENT: atraumatic, normocephalic Eye exam: PRESENT: EOMI, PERRLA Mouth exam: PRESENT: moist Neck exam: PRESENT: full ROM Respiratory exam: PRESENT: rales, symmetrical, unlabored Cardiovascular exam: PRESENT: RRR, +S1, +S2 GI/Abdominal exam: PRESENT: normal bowel sounds, soft. ABSENT: rebound, tenderness Extremities exam: PRESENT: full ROM Musculoskeletal exam: PRESENT: other - surgically absent right lower leg Neurological exam: PRESENT: alert, awake, oriented to person, oriented to place, oriented to time, oriented to situation Psychiatric exam: PRESENT: normal mood Skin exam: PRESENT: normal color Results Laboratory Results: 06/27/20 06:31 06/27/20 06:31 06/26/20 06/26/20 06/27/20 15:40 22:20 06:31 WBC 8.5 6.4 RBC 3.20 L 3.44 L Hgb 10.1 L 10.7 L Hct 30.0 L 32.4 L MCV 94 94 MCH 31.6 31.1 MCHC 33.7 33.0 RDW 15.4 H 15.5 H Plt Count 210 191 Seg Neutrophils % 46.8 Carbonic Acid HCO3/H2CO3 Ratio ABG pH ABG pCO2 ABG pO2 ABG HCO3 ABG O2 Saturation ABG Base Excess FiO2 Sodium Potassium Chloride Carbon Dioxide Anion Gap BUN Creatinine Est GFR ( Amer) Glucose Lactic Acid 2.9 H Calcium Total Bilirubin AST Alkaline Phosphatase Total Protein Albumin 06/27/20 06/27/20 06/27/20 06:31 06:40 09:03 WBC RBC Hgb Hct MCV MCH MCHC RDW Plt Count Seg Neutrophils % Carbonic Acid Cancelled 1.14 HCO3/H2CO3 Ratio Cancelled 23:1 ABG pH Cancelled 7.46 H ABG pCO2 Cancelled 37.9 ABG pO2 Cancelled 82.6 ABG HCO3 Cancelled 26.3 H ABG O2 Saturation Cancelled 96.7 ABG Base Excess Cancelled 2.4 FiO2 Cancelled ROOM AIR Sodium 136.1 L Potassium 4.4 Chloride 95 L Carbon Dioxide 29 Anion Gap 12 BUN 24 H Creatinine 6.80 H Est GFR ( Amer) 10 L Glucose 129 H Lactic Acid Calcium 8.7 Total Bilirubin 0.5 AST 20 Alkaline Phosphatase 65 Total Protein 6.9 Albumin 4.0 06/26/20 06/26/2020 09:20 09:20 22:20 Troponin I 0.111 0.111 NT-Pro-B Natriuret Pep 36199 H Impressions: Chest X-Ray 06/27/20 00:00 IMPRESSION: IMPROVED AERATION IN THE LUNG BASES. Assessment and Plan - Diagnosis (1) Acute respiratory failure with hypoxia and hypercapnia Is this a current diagnosis for this admission?: Yes Plan: -improved. He is off O2 support - this is likely from fluid overload. It improved with dialysis - will continue to monitor (2) CHF (congestive heart failure) Qualifiers: Heart failure type: combined systolic and diastolic Heart failure chronicity: acute on chronic Qualified Code(s): I50.43 - Acute on chronic combined systolic (congestive) and diastolic (congestive) heart failure Is this a current diagnosis for this admission?: Yes Plan: - systolic HF EF 25-30 % as of January 2020 - BNP 32,100. he's had higher values before - continue lasix 80 mg BID, carvedilol - not on danie/arb, spironolactone or aspirin - needs a cardio follow up - no indication for repeat echo (3) ESRD (end stage renal disease) on dialysis Is this a current diagnosis for this admission?: Yes Plan: - HD every Fri, , Sat and has not missed a dialysis recently - nephro on board (4) Pneumonia Qualifiers: Pneumonia type: due to unspecified organism Laterality: bilateral Lung location: lower lobe of lung Qualified Code(s): J18.9 - Pneumonia, unspecified organism Is this a current diagnosis for this admission?: Yes Plan: - repeat CXR improved aeration in the lung bases -Sputum culture negative, blood culture negative -Pneumonia is less likely given that he is not coughing, downtrending WBC, and improvement of dyspnea symptoms after dialysis -We will stop antibiotics tomorrow (5) Chronic obstructive pulmonary disease Qualifiers: COPD type: unspecified COPD Qualified Code(s): J44.9 - Chronic obstructive pulmonary disease, unspecified Is this a current diagnosis for this admission?: Yes Plan: No significant wheezing, no sign of COPD exacerbation. Continue bronchodilator as needed. (6) Fluid overload Qualifiers: Hypervolemia type: other Qualified Code(s): E87.79 - Other fluid overload Is this a current diagnosis for this admission?: Yes Plan: Hemodialysis treatment. This is related to heart failure and kidney failure. (7) HIV (human immunodeficiency virus infection) Qualifiers: HIV symptom status: asymptomatic Qualified Code(s): Z21 - Asymptomatic human immunodeficiency virus [HIV] infection status Is this a current diagnosis for this admission?: Yes Plan: Continue with his usual HIV medications. (8) History of venous thromboembolism Is this a current diagnosis for this admission?: Yes Plan: - DVT prophylaxis with heparin. INR is subtherapeutic. - warfarin increased to 7.5 (9) Hypertension Qualifiers: Is this a current diagnosis for this admission?: Yes Plan: resumed clonidine, doxazosin, hydralazine, ISDN, nifedipine, carvedilol - unsure why he is not on DANIE/ARB (10) roasterman (current) use of anticoagulants Is this a current diagnosis for this admission?: Yes Plan: Continue warfarin, monitor INR. - Plan Summary Summary: . - Time Time Spent with patient: 25-34 minutes Smoking Cessation Education: 3 to 10 minutes Medications reviewed and adjusted accordingly: Yes Anticipated Discharge Disposition: Home, Self Care Anticipated Discharge Timeframe: within 48 hours
--- NOTE | 2020-06-27 17:50 | EKG REPORT ---
SEVERITY:- ABNORMAL ECG - SINUS RHYTHM PROBABLE LEFT ATRIAL ABNORMALITY LEFT ANTERIOR FASCICULAR BLOCK LEFT VENTRICULAR HYPERTROPHY : Confirmed by: Beulah Storm 27-Jun-2020 17:50:03
[2020-06-27] MEDS ORDERED: WARFARIN SODIUM 7.5 MG TABLET PO SCH (22:00)
[2020-06-27] MEDS ORDERED: WARFARIN SODIUM 5 MG TABLET PO SCH (22:00)
[2020-06-27] MEDS: DOXAZOSIN MESYLATE 2 MG TABLET PO SCH (22:55)
[2020-06-27] MEDS: GABAPENTIN 100 MG CAPSULE PO SCH (22:55)
--- NOTE | 2020-06-27 23:22 | RADIOLOGY REPORT (SQ) ---
EXAM DESCRIPTION: VENOUS UNILATERAL UPPER 06/27/2020 10:21 PM ARCHITECTURE DEPARTMENT CHAIR CLINICAL HISTORY: 65 years, Male, pain fistula site COMPARISON: [None] TECHNIQUE: Utilizing a linear array transducer, real-time ultrasound evaluation of the left upper extremity was performed. Color Doppler imaging was used to assess vascular flow. FINDINGS: The left internal jugular vein demonstrates normal compressibility with normal waveform. There is no echogenic thrombus. The left subclavian vein demonstrates normal waveform. There is no echogenic thrombus. The left axillary vein demonstrates normal compressibility with normal waveform. There is no echogenic thrombus. The left cephalic vein demonstrates normal compressibility with normal waveform. There is no echogenic thrombus. The left basilic vein demonstrates normal compressibility with normal waveform. There is no echogenic thrombus. The left brachial vein demonstrates normal compressibility with normal waveform. There is no echogenic thrombus. The left radial vein demonstrates normal compressibility with normal waveform. There is no echogenic thrombus. The left ulnar vein demonstrates normal compressibility with normal waveform. There is no echogenic thrombus. IMPRESSION: No evidence of left upper extremity deep venous thrombosis.
[2020-06-28] MEDS: ACETAMINOPHEN 325 MG TABLET PO PRN (00:02)
[2020-06-28] MEDS ORDERED: NORMAL SALINE 1000 ML 1,000 ML IV PRN (05:00)
[2020-06-28] MEDS: HYDRALAZINE HCL 50 MG TABLET PO SCH (05:52)
[2020-06-28] MEDS: CLONIDINE HCL 0.2 MG TABLET PO SCH (05:52)
[2020-06-28] MEDS: HEPARIN SOD (PORCINE) 5,000 UNIT/ML 1 ML VIAL SUBCUT SCH (05:52)
[2020-06-28 06:50] LABS: ABSOLUTE EOSINOPHILS # (AUTO) 0.4 10^3/uL (0.0-0.6); ABSOLUTE MONOCYTES (AUTO) 0.8 10^3/uL (0.1-1.4); ABSOLUTE NEUT (AUTO) 2.3 10^3/uL (1.7-8.2); BASOPHILS % (AUTO) 0.6 % (0-2); EOSINOPHILS % (AUTO) 5.4 % (0-6); HEMATOCRIT 31.4 % (37.9-51.0); HEMOGLOBIN 10.4 g/dL (13.5-17.0); LYMPHOCYTES % (AUTO) 46.1 % (13-45); MEAN CORPUSCULAR HGB CONC 33.1 g/dL (32.0-36.0); MEAN CORPUSCULAR VOLUME 94 fl (80-97); MONOCYTES % (AUTO) 12.7 % (3-13); PLATELET COUNT 201 10^3/uL (150-450); RED BLOOD COUNT 3.35 10^6/uL (4.35-5.55); RED CELL DISTRIBUTION WIDTH 15.7 % (11.5-14.0); SEGMENTED NEUTROPHILS % (AUTO) 35.2 % (42-78); TOTAL CELLS COUNTED % (AUTO) 100 %; WHITE BLOOD COUNT 6.6 10^3/uL (4.0-10.5)
[2020-06-28 06:54] LABS: INTERNATIONAL RATION (INR) 1.29; PROTHROMBIN TIME 16.3 SEC (11.4-15.4)
[2020-06-28 07:50] LABS: ANION GAP 14 (5-19); BLOOD UREA NITROGEN 38 mg/dL (7-20); CALCIUM 8.5 mg/dL (8.4-10.2); CARBON DIOXIDE 28 mmol/L (22-30); CHLORIDE 94 mmol/L (98-107); GLUCOSE 116 mg/dL (75-110); POTASSIUM 4.9 mmol/L (3.6-5.0)
[2020-06-28] MEDS: CALCIUM ACETATE 667 MG CAPSULE PO SCH ×2 (08:21→12:25)
[2020-06-28] MEDS ORDERED: HYDROXYZINE PAMOATE 25 MG CAPSULE PO PRN (09:09)
--- NOTE | 2020-06-28 09:47 | PDOC PROGRESS REPORT ---
Subjective Date:: 06/28/20 Subjective:: I am seeing the patient during dialysis this morning. He is comfortable receivi ng dialysis but ask for some oxygen. Our dialysis nurse give him 1 L of oxygen per nasal cannulae this actually saturating 100%. I am not sure that he really needs to but just for comfort. He said he feels better. He states that he is still coughing with scant yellow-green phlegm. He is afebrile. Reason For Visit: ACUTE RESPIRATORY FAILURE Physical Exam Vital Signs: Temp Pulse Resp BP Pulse Ox 98.1 F 78 17 145/82 H 97 06/28/20 07:43 06/28/20 07:00 06/28/20 03:43 06/28/20 03:43 06/28/20 03:43 Intake & Output 06/27/20 06/28/20 06/29/20 06:59 06:59 06:59 Intake Total 476 1380 Output Total 4100 Balance -3624 1380 Weight 75.7 kg 79.3 kg Vitals during dialysis: Blood pressure 104/65, heart rate of 78, blood flow rate of 400 mL/min and dialysate flow rate of 800 mL/min. Exam: General appearance: PRESENT: no acute distress, cooperative, well-developed, well-nourished Head exam: PRESENT: atraumatic, normocephalic Eye exam: PRESENT: conjunctiva pink, PERRLA. ABSENT: scleral icterus Neck exam: ABSENT: JVD Respiratory exam: PRESENT: Diminished breath sounds. ABSENT: crackles, rales, rhonchi, unlabored, wheezes Cardiovascular exam: PRESENT: Regular rate rhythm -+S1, +S2. ABSENT: diastolic murmur, systolic murmur GI/Abdominal exam: PRESENT: normal bowel sounds, soft. ABSENT: guarding, mass, tenderness Extremities exam: ABSENT: No edema Neurological exam: PRESENT: alert, awake, oriented to person, place and time. Skin exam: PRESENT: dry, warm, Results Laboratory Results: 06/28/20 06:16 06/28/20 06:16 06/27/20 06/28/20 06/28/20 09:03 06:16 06:16 WBC 6.6 RBC 3.35 L Hgb 10.4 L Hct 31.4 L MCV 94 MCH 31.0 MCHC 33.1 RDW 15.7 H Plt Count 201 Seg Neutrophils % 35.2 L Carbonic Acid 1.14 HCO3/H2CO3 Ratio 23:1 ABG pH 7.46 H ABG pCO2 37.9 ABG pO2 82.6 ABG HCO3 26.3 H ABG O2 Saturation 96.7 ABG Base Excess 2.4 FiO2 ROOM AIR Sodium 136.2 L Potassium 4.9 Chloride 94 L Carbon Dioxide 28 Anion Gap 14 BUN 38 H Creatinine 8.88 H Est GFR ( Amer) 7 L Glucose 116 H Calcium 8.5 06/26/20 06/26/20 06/26/20 09:20 09:20 22:20 Troponin I 0.111 0.111 NT-Pro-B Natriuret Pep 45947 H Impressions: Chest X-Ray 06/27/20 00:00 IMPRESSION: IMPROVED AERATION IN THE LUNG BASES. Venous Doppler Study 06/27/20 00:00 IMPRESSION: No evidence of left upper extremity deep venous thrombosis. Assessment & Plan - Diagnosis (1) ESRD (end stage renal disease) on dialysis Is this a current diagnosis for this admission?: Yes Plan: We will do dialysis today for 3 hours, using the patient's AV fistula, with 2 potassium bath, blood flow rate of 400 mL per minute, dialysate flow rate of 800 mL per minute, ultrafiltration 2 to 2.5 L as tolerated, no heparin and no Retacrit. Patient will be monitored throughout dialysis treatment. (2) Acute respiratory failure with hypoxia and hypercapnia Is this a current diagnosis for this admission?: Yes Plan: Due to acute pulmonary edema. Now resolved after dialysis treatment on admission. (3) Pulmonary edema Qualifiers: Chronicity: acute Qualified Code(s): J81.0 - Acute pulmonary edema Is this a current diagnosis for this admission?: Yes Plan: Resolved. (4) Pneumonia Qualifiers: Pneumonia type: due to unspecified organism Laterality: bilateral Lung location: lower lobe of lung Qualified Code(s): J18.9 - Pneumonia, unspecified organism Is this a current diagnosis for this admission?: Yes Plan: Chest x-ray findings of bilateral lung opacities improved after dialysis treatment. Clinically he does not seem to have pneumonia. (5) Hyperkalemia Is this a current diagnosis for this admission?: Yes Plan: Resolved. (6) Anemia in chronic kidney disease, on chronic dialysis Is this a current diagnosis for this admission?: Yes Plan: Currently does not require any Retacrit. - Notes Notes: From nephrology standpoint I think patient can be discharged home anytime after dialysis today. - Time Time with patient: 15-25 minutes
[2020-06-28] MEDS: BUPROPION HCL 150 MG PO SCH (12:19)
[2020-06-28] MEDS: NIFEDIPINE 30 MG TAB.ER.24 PO SCH (12:21)
[2020-06-28] MEDS: ISOSORBIDE MONONITRATE 30 MG TAB.ER.24H PO SCH (12:21)
[2020-06-28] MEDS: CEFTRIAXONE 1 GM/D5W RTU 1 GM/50 ML RTUPB IV SCH (12:22)
[2020-06-28] MEDS: CARVEDILOL 12.5 MG TABLET PO SCH (12:22)
[2020-06-28] MEDS: FUROSEMIDE 80 MG TABLET PO SCH (12:22)
[2020-06-28] MEDS: AZITHROMYCIN 500 MG in DEXTROSE 5%-WATER 250 ML IV SCH (12:23)
[2020-06-28 12:58] VITALS: BP 141/81
--- NOTE | 2020-06-29 06:56 | PDOC DISCHARGE SUMMARY ---
Impression - Admit/DC Date/PCP Admission Date/Primary Care Provider: 06/26/20 14:21 LUIS CROW MD Discharge Date: 06/28/20 - Discharge Diagnosis (1) Acute respiratory failure with hypoxia and hypercapnia Is this a current diagnosis for this admission?: Yes (2) CHF (congestive heart failure) Is this a current diagnosis for this admission?: Yes (3) ESRD (end stage renal disease) on dialysis Is this a current diagnosis for this admission?: Yes (4) Pneumonia Is this a current diagnosis for this admission?: Yes (5) Chronic obstructive pulmonary disease Is this a current diagnosis for this admission?: Yes (6) Fluid overload Is this a current diagnosis for this admission?: Yes (7) HIV (human immunodeficiency virus infection) Is this a current diagnosis for this admission?: Yes (8) History of venous thromboembolism Is this a current diagnosis for this admission?: Yes (9) Hypertension Is this a current diagnosis for this admission?: Yes (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 He is off O2 support - this is likely from fluid overload. It improved with dialysis - will continue to monitor (2) CHF (congestive heart failure) Qualifiers: Heart failure type: combined systolic and diastolic Heart failure chronicity: acute on chronic Qualified Code(s): I50.43 - Acute on chronic combined systolic (congestive) and diastolic (congestive) heart failure Is this a current diagnosis for this admission?: Yes Plan: - systolic HF EF 25-30 % as of January 2020 - BNP 32,100. he's had higher values before - continue lasix 80 mg BID, carvedilol - not on danie/arb, spironolactone or aspirin - needs a cardio follow up - no indication for repeat echo (3) ESRD (end stage renal disease) on dialysis Is this a current diagnosis for this admission?: Yes Plan: - HD every e, Th, Sat and has not missed a dialysis recently - nephro on board (4) Pneumonia Qualifiers: Pneumonia type: due to unspecified organism Laterality: bilateral Lung location: lower lobe of lung Qualified Code(s): J18.9 - Pneumonia, unspecified organism Is this a current diagnosis for this admission?: Yes Plan: - repeat CXR improved aeration in the lung bases -Sputum culture negative, blood culture negative -Pneumonia is less likely given that he is not coughing, downtrending WBC, and improvement of dyspnea symptoms after dialysis -We will stop antibiotics tomorrow (5) Chronic obstructive pulmonary disease Qualifiers: COPD type: unspecified COPD Qualified Code(s): J44.9 - Chronic obstructive pulmonary disease, unspecified Is this a current diagnosis for this admission?: Yes Plan: No significant wheezing, no sign of COPD exacerbation. Continue bronchodilator as needed. (6) Fluid overload Qualifiers: Hypervolemia type: other Qualified Code(s): E87.79 - Other fluid overload Is this a current diagnosis for this admission?: Yes Plan: Hemodialysis treatment. This is related to heart failure and kidney failure. (7) HIV (human immunodeficiency virus infection) Qualifiers: HIV symptom status: asymptomatic Qualified Code(s): Z21 - Asymptomatic human immunodeficiency virus [HIV] infection status Is this a current diagnosis for this admission?: Yes Plan: Continue with his usual HIV medications. (8) History of venous thromboembolism Is this a current diagnosis for this admission?: Yes Plan: - DVT prophylaxis with heparin. INR is subtherapeutic. 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 - Additional Information Discharge Diet: Cardiac Discharge Activity: Activity As Tolerated, Balance Activity w/Rest Referrals: LUIS CROW MD [Primary Care Provider] - 07/05/20 1:00 pm Prescriptions: Cefuroxime Axetil [Ceftin 500 mg Tablet] 500 mg PO BID 5 Days #10 tablet Warfarin Sodium [Jantoven 7.5 mg Tablet] 7.5 mg PO QHS 30 Days #30 tablet Home Medications: Abacavir Sulfate [Abacavir 300 mg Tablet] 300 mg PO BID 06/10/20 Albuterol Sulfate [Ventolin Hfa 8 gm Mdi] 2 puff IH Q4HP PRN 06/10/20 Bupropion HCl [Bupropion HCl Sr] 150 mg PO Q12 06/10/20 Calcium Acetate [Phoslo 667 mg Capsule] 1,334 mg PO AC 06/10/20 Carvedilol 25 mg PO Q12 06/10/20 Clonidine HCl [Catapres 0.2 mg Tablet] 0.2 mg PO TID 06/10/20 Dolutegravir Sodium [Tivicay] 50 mg PO DAILY 06/10/20 Doxazosin Mesylate [Cardura 2 mg Tablet] 2 mg PO QHS 06/10/20 Furosemide [Lasix] 80 mg PO BID 06/10/20 Hydralazine HCl [Apresoline 50 mg Tablet] 50 mg PO Q8 06/10/20 Isosorbide Mononitrate [Imdur 30 mg Tablet.er] 150 mg PO DAILY 06/10/20 Lamivudine [Epivir] 50 mg PO DAILY 06/10/20 Gabapentin [Neurontin 100 mg Capsule] 100 mg PO QHS 06/26/20 Guaifenesin/Dextromethorphan [Mucinex Dm ER 600-30 mg Tablet] 1 each PO BID 06/26/20 Hydroxyzine HCl [Atarax 10 mg Tablet] 25 mg PO TIDP PRN 06/26/20 Nifedipine [Nifedipine ER] 120 mg PO DAILY 06/26/20 Sevelamer Carbonate [Renvela] 1 packet PO MEALS 06/26/20 Cefuroxime Axetil [Ceftin 500 mg Tablet] 500 mg PO BID 5 Days #10 tablet 06/28/20 Warfarin Sodium [Jantoven 7.5 mg Tablet] 7.5 mg PO QHS 30 Days #30 tablet 06/28/20 History of Present Illiness History of Present Illness: KRISTY CANTU is a 65 year old male He has multiple medical problems including congestive heart failure with ejection fraction 25 to 30% and diastolic dysfunction in January 2020 with echocardiogram. He has end-stage renal disease and he is receiving hemodialysis on Friday and Friday each week. Last hemodialysis was on the previous Friday. He is suffering from HIV disease, he does not have any chronic opportunistic infection. He was doing reasonably well yesterday, this morning he woke up with significant shortness of breath. He was coughing and he had yellowish-greenish sputum. He did not have any fever. No shaking or chills. He came to the emergency department with increasing shortness of breath. He was in significant respiratory distress, he was placed on BiPAP. His blood pressure was significantly elevated and it was plan to start him on nitroglycerin drip. Once his respiratory distress improved his blood pressure normalized and he did not require nitroglycerin drip. He did not have any chest pain. Now he maintains good oxygen saturation on BiPAP. He was started on ceftriaxone and Zithromax for community-acquired pneumonia. When I arrived to see him he was on BiPAP, he appeared to be comfortable and had probably only mild distress. He was able to answer questions, obviously limited on a limited way due to the fact that he still had a BiPAP mask on. Hospital Course Hospital Course: D2 06/27/20 He was seen and examined at bedside. He reports that his breathing is much better and he has been weaned off O2. He had dialysis yesterday. His BP has been much better at about 130s to 150s systolic. repeat CXR showed improvement of aeration in the lung bases which tells me that he likely had pulmonary edema rather than pneumonia. D3 Hospital stay 06/28/20 He underwent dialysis again. repeat CXR showed improvement of previously noted opacities and his breathing is much improved. He was discharged on his home medications and was advised to ff.up with PCP and seismic observer Physical Exam Vital Signs: Temp Pulse Resp BP Pulse Ox 97.6 F 73 19 141/81 H 100 06/28/20 12:57 06/28/20 12:57 06/28/20 12:57 06/28/20 12:57 06/28/20 12:57 Intake & Output 06/27/20 06/28/20 06/29/20 06:59 06:59 06:59 Intake Total 476 1380 Output Total 4100 2600 Balance -3624 1380 -2600 Weight 75.7 kg 79.3 kg General appearance: PRESENT: no acute distress, cooperative Head exam: PRESENT: atraumatic, normocephalic Eye exam: PRESENT: EOMI, PERRLA Neck exam: PRESENT: full ROM Respiratory exam: PRESENT: clear to auscultation ramila, symmetrical, unlabored Cardiovascular exam: PRESENT: RRR, +S1, +S2 GI/Abdominal exam: PRESENT: normal bowel sounds, soft. ABSENT: rebound, tenderness Musculoskeletal exam: PRESENT: other - wheelchair bound Neurological exam: PRESENT: alert, awake, oriented to person, oriented to place, oriented to time, oriented to situation Psychiatric exam: PRESENT: normal mood Skin exam: PRESENT: normal color Results Laboratory Results: WBC 6.6 10^3/uL (4.0-10.5) 06/28/20 06:16 RBC 3.35 10^6/uL (4.35-5.55) L 06/28/20 06:16 Hgb 10.4 g/dL (13.5-17.0) L 06/28/20 06:16 Hct 31.4 % (37.9-51.0) L 06/28/20 06:16 MCV 94 fl (80-97) 06/28/20 06:16 MCH 31.0 pg (27.0-33.4) 06/28/20 06:16 MCHC 33.1 g/dL (32.0-36.0) 06/28/20 06:16 RDW 15.7 % (11.5-14.0) H 06/28/20 06:16 Plt Count 201 10^3/uL (150-450) 06/28/20 06:16 Lymph % (Auto) 46.1 % (13-45) H 06/28/20 06:16 [place] % (Auto) 12.7 % (3-13) 06/28/20 06:16 Eos % (Auto) 5.4 % (0-6) 06/28/20 06:16 Baso % (Auto) 0.6 % (0-2) 06/28/20 06:16 Absolute Neuts (auto) 2.3 10^3/uL (1.7-8.2) 06/28/20 06:16 Absolute Lymphs (auto) 3.0 10^3/uL (0.5-4.7) 06/28/20 06:16 Absolute Monos (auto) 0.8 10^3/uL (0.1-1.4) 06/28/20 06:16 Absolute Eos (auto) 0.4 10^3/uL (0.0-0.6) 06/28/20 06:16 Absolute Basos (auto) 0.0 10^3/uL (0.0-0.2) 06/28/20 06:16 Seg Neutrophils % 35.2 % (42-78) L 06/28/20 06:16 PT 16.3 SEC (11.4-15.4) H 06/28/20 06:16 INR 1.29 06/28/20 06:16 Carbonic Acid 1.14 mmol/L (1.05-1.35) 06/27/20 09:03 HCO3/H2CO3 Ratio 23:1 06/27/20 09:03 ABG pH 7.46 (7.35-7.45) H 06/27/20 09:03 ABG pCO2 37.9 mmHg (35-45) 06/27/20 09:03 ABG pO2 82.6 mmHg (80-100) 06/27/20 09:03 ABG HCO3 26.3 mmol/L (20-24) H 06/27/20 09:03 ABG Total CO2 27.5 mmol/L (23-27) H 06/27/20 09:03 ABG O2 Saturation 96.7 % (94-98) 06/27/20 09:03 ABG Base Excess 2.4 mmol/L 06/27/20 09:03 FiO2 ROOM AIR 06/27/20 09:03 Sodium 136.2 mmol/L (137-145) L 06/28/20 06:16 Potassium 4.9 mmol/L (3.6-5.0) 06/28/20 06:16 Chloride 94 mmol/L (98-107) L 06/28/20 06:16 Carbon Dioxide 28 mmol/L (22-30) 06/28/20 06:16 Anion Gap 14 (5-19) 06/28/20 06:16 BUN 38 mg/dL (7-20) H 06/28/20 06:16 Creatinine 8.88 mg/dL (0.52-1.25) H 06/28/20 06:16 Est GFR ( Amer) 7 (>60) L 06/28/20 06:16 Est GFR (MDRD) Non-Af 6 (>60) L 06/28/20 06:16 Glucose 116 mg/dL (75-110) H 06/28/20 06:16 Lactic Acid 2.9 mmol/L (0.7-2.1) H 06/26/20 22:20 Calcium 8.5 mg/dL (8.4-10.2) 06/28/20 06:16 Total Bilirubin 0.5 mg/dL (0.2-1.3) 06/27/20 06:31 Direct Bilirubin 0.4 mg/dL (0.0-0.4) 06/27/20 06:31 Neonat Total Bilirubin Not Reportable 06/27/20 06:31 Neonat Direct Bilirubin Not Reportable 06/27/20 06:31 Neonat Indirect Bili Not Reportable 06/27/20 06:31 AST 20 U/L (17-59) 06/27/20 06:31 ALT 17 U/L (<50) 06/27/20 06:31 Alkaline Phosphatase 65 U/L (38-126) 06/27/20 06:31 Troponin I 0.111 ng/mL 06/26/20 22:20 NT-Pro-B Natriuret Pep 97696 pg/mL (<125) H 06/26/20 09:20 Total Protein 6.9 g/dL (6.3-8.2) 06/27/20 06:31 Albumin 4.0 g/dL (3.5-5.0) 06/27/20 06:31 Influenza A (RT-PCR) NEGATIVE (NEGATIVE) 06/26/20 10:25 Influenza B (RT-PCR) NEGATIVE (NEGATIVE) 06/26/20 10:25 RSV (RT-PCR) NEGATIVE (NEGATIVE) 06/26/20 10:25 SARS-CoV-2 Rap RNA(RT-PCR) NEGATIVE (NEGATIVE) 06/26/20 10:25 06/26/20 06/26/20 06/26/20 09:20 09:20 22:20 Troponin I 0.111 0.111 NT-Pro-B Natriuret Pep 64368 H Impressions: Chest X-Ray 06/26/20 09:32 IMPRESSION: Cardiomegaly and bilateral basilar predominant patchy parenchymal opacities. Differential considerations include pulmonary edema and multifocal pneumonia. Chest X-Ray 06/27/20 00:00 IMPRESSION: IMPROVED AERATION IN THE LUNG BASES. Venous Doppler Study 06/27/20 00:00 IMPRESSION: No evidence of left upper extremity deep venous thrombosis. Plan Plan of Treatment: - advised to have a ff.up with his seismic observer for medication adjustment and his PCP. Stroke Is this a Stroke Patient?: No Acute Heart Failure Is this a Heart Failure Patient?: Yes Documentation of LVEF assessment?: Planned for after discharge LVEF: LVEF Less Than or Equal to 40% Anticoagulant Therapy: No, document contraindications Reason(s) not Discharged on Anticoagulant Therapy: Risk for bleeding Discharged on Evidence-Based Beta Blockers: Yes Discharged on ARNI?: No-Document Contraindications Reason(s) not discharged on ARNI: Impaired/worsening renal functions Discharged on ARB?: No-document contraindications Reason(s) not Discharged on ARB: Impaired/worsening renal functions Discharged on ACEI?: N/A Discharged on ARNI Reason(s) not Discharged on ACEI: Impaied/worsening renal function For LVEF <35%, discharged on Aldosterone Antagonist?: N/A (LVEF > or = 35%) Reason(s) not discharged on Aldosterone Antagonist: Renal dysfunction (creatinine >2.5 mg/dL in men or 2.0 mg/dL in women) Follow-up Appointment scheduled within 7 days?: Yes
== END 2020-06-28 13:38 | disposition home or self-care (01) ==
LOC: ER 09:19 → EH 14:21 → 3S 20:18
PROVIDERS: ADMIT Internal Medicine; ATTEND Internal Medicine
DX: I13.2 Hypertensive heart and chronic kidney disease with heart failure and with stage 5 chronic kidney disease, or end stage renal disease (principal); E11.22 Type 2 diabetes mellitus with diabetic chronic kidney disease; N18.6 End stage renal disease; I50.43 Acute on chronic combined systolic (congestive) and diastolic (congestive) heart failure; Z99.2 Dependence on renal dialysis; Z79.4 Long term (current) use of insulin; J96.02 Acute respiratory failure with hypercapnia; J96.01 Acute respiratory failure with hypoxia; D63.1 Anemia in chronic kidney disease; J18.9 Pneumonia, unspecified organism; J44.9 Chronic obstructive pulmonary disease, unspecified; E87.79 Other fluid overload; Z86.711 Personal history of pulmonary embolism; Z79.01 Long term (current) use of anticoagulants; Z21 Asymptomatic human immunodeficiency virus [HIV] infection status; Z88.8 Allergy status to other drugs, medicaments and biological substances; Z20.828 Contact with and (suspected) exposure to other viral communicable diseases
CPT/HCPCS: 93005; 99285; 96375; 96365; 96367; 36415 ×3; 87040; 87070; 87205; 82803 ×2; 83605; 85025 ×3; 85610 ×3; 0241U ×4; 80048; 80053 ×2; 84484; 83880; 93971; 71045 ×2; 93010; 94660 ×2; G0378 ×4; A9270 ×26; J1644 ×3; J2270; J2060; J3490 ×3; J7060; J0456 ×2; J0696 ×2; C9803

== ENCOUNTER 2020-07-11 07:35 | Emergency (ER) | payer MEDICARE, MEDICAID ==
[2020-07-11 08:04] LABS: ABSOLUTE EOSINOPHILS # (AUTO) 0.4 10^3/uL (0.0-0.6); ABSOLUTE LYMPHOCYTES (AUTO) 2.3 10^3/uL (0.5-4.7); ABSOLUTE MONOCYTES (AUTO) 0.7 10^3/uL (0.1-1.4); ABSOLUTE NEUT (AUTO) 4.5 10^3/uL (1.7-8.2); BASOPHILS % (AUTO) 0.2 % (0-2); EOSINOPHILS % (AUTO) 4.8 % (0-6); HEMATOCRIT 31.8 % (37.9-51.0); HEMOGLOBIN 10.6 g/dL (13.5-17.0); LYMPHOCYTES % (AUTO) 28.9 % (13-45); MEAN CORPUSCULAR HEMOGLOBIN 31.2 pg (27.0-33.4); MEAN CORPUSCULAR HGB CONC 33.4 g/dL (32.0-36.0); MEAN CORPUSCULAR VOLUME 93 fl (80-97); MONOCYTES % (AUTO) 8.6 % (3-13); PLATELET COUNT 268 10^3/uL (150-450); RED BLOOD COUNT 3.41 10^6/uL (4.35-5.55); RED CELL DISTRIBUTION WIDTH 15.8 % (11.5-14.0); SEGMENTED NEUTROPHILS % (AUTO) 57.5 % (42-78); TOTAL CELLS COUNTED % (AUTO) 100 %; WHITE BLOOD COUNT 7.9 10^3/uL (4.0-10.5)
--- NOTE | 2020-07-11 08:35 | RADIOLOGY REPORT (SQ) ---
EXAM DESCRIPTION: CHEST SINGLE VIEW IMAGES COMPLETED DATE/TIME: 07/11/2020 7:58 am REASON FOR STUDY: bed 20 chest pain COMPARISON: 06/27/2020. EXAM PARAMETERS: NUMBER OF VIEWS: One view. TECHNIQUE: Single frontal radiographic view of the chest acquired. RADIATION DOSE: NA LIMITATIONS: None. FINDINGS: LUNGS AND PLEURA: There are few linear densities in the lower lobes. No lobar infiltrates , masses or pneumothorax. No pleural effusion. MEDIASTINUM AND HILAR STRUCTURES: No masses. Contour normal. HEART AND VASCULAR STRUCTURES: Heart normal in size. Normal vasculature. BONES: No acute findings. HARDWARE: Surgical clips on the right. OTHER: No other significant finding. IMPRESSION: SCATTERED ATELECTASIS. OTHERWISE NO ACUTE RADIOGRAPHIC FINDING IN THE CHEST. TECHNICAL DOCUMENTATION: JOB ID: [id number] [employer]- All Rights Reserved Reading location - IP/workstation name: [email or web address]
[2020-07-11 08:48] LABS: ALKALINE PHOSPHATASE 61 U/L (38-126); ANION GAP 13 (5-19); ASPARTATE AMINO TRANSFERASE 28 U/L (17-59); BILIRUBIN,DIRECT 0.8 mg/dL (0.0-0.4); BILIRUBIN,TOTAL 0.8 mg/dL (0.2-1.3); BLOOD UREA NITROGEN 50 mg/dL (7-20); CALCIUM 7.7 mg/dL (8.4-10.2); CARBON DIOXIDE 20 mmol/L (22-30); CHLORIDE 104 mmol/L (98-107); CREATINE KINASE 85 U/L (55-170); GLUCOSE 96 mg/dL (75-110); POTASSIUM 5.3 mmol/L (3.6-5.0); TOTAL PROTEIN 7.3 g/dL (6.3-8.2)
[2020-07-11 08:50] LABS: CREATINE KINASE MB 2.21 ng/mL (<4.55)
[2020-07-11 09:08] LABS: TROPONIN I 0.06 ng/mL
[2020-07-11 09:37] VITALS: BP 139/79
--- NOTE | 2020-07-11 09:49 | ER Document Report ---
ED General - General Chief Complaint: Shortness Of Breath Stated Complaint: WEAKNESS Time Seen by Provider: 07/11/20 09:11 Primary Care Provider: YOSHI JEAN-BAPTISTE NP [Primary Care Provider] - Follow up as needed Mode of Arrival: Medic Information source: Patient TRAVEL OUTSIDE OF THE [place] IN LAST 30 DAYS: No - HPI Notes: Patient presents clinic shortness of breath. Patient states he is due for dialysis today at [facility] at 11 AM. He states he was getting dressed this morning when he felt that he could not breathe well and felt that he could not make it into dialysis so he called the ambulance to be brought to emergency department. He has had some chest heaviness. No significant radiation of this it is worse with exertion better with rest. It does feel previously like when he has been fluid overloaded he states. He states has had a mild nonproductive cough lately but otherwise no fevers. No chills. No significant vomiting or diarrhea. - Related Data Allergies/Adverse Reactions: calcitriol Allergy (Verified 07/11/20 07:43) itching Past Medical History - General Information source: Patient - Social History Smoking Status: Current Every Day Smoker Frequency of alcohol use: None Drug Abuse: None Family History: Reviewed & Not Pertinent, CAD, CVA, DM, Hyperlipidemia, Hypertension, Malignancy - Past Medical History Cardiac Medical History: Reports: Hx Congestive Heart Failure - EF is 25-30% in 01/2020, + diastolic dysfunction, Hx Coronary Artery Disease, Hx DVT, Hx Heart Attack, Hx Hypercholesterolemia, Hx Hypertension, Hx Peripheral Vascular Disease, Hx Pulmonary Embolism Denies: Hx Atrial Fibrillation Pulmonary Medical History: Reports: Hx Bronchitis, Hx COPD, Hx Pneumonia, Hx Respiratory Failure Denies: Hx Asthma, Hx Sleep Apnea Neurological Medical History: Denies: Hx Migraine, Hx Seizures Endocrine Medical History: Reports: Hx Diabetes Mellitus Type 2 - insulin dependent. Denies: Hx Diabetes Mellitus Type 1, Hx Hyperthyroidism, Hx Hypothyroidism Renal/ Medical History: Reports: Hx End Stage Renal Disease, Hx Hemodialysis. Denies: Hx Peritoneal Dialysis GI Medical History: Reports: Hx Gastroesophageal Reflux Disease. Denies: Hx Cirrhosis, Hx Crohn's Disease, Hx Hepatitis, Hx Ulcerative Colitis Musculoskeletal Medical History: Reports Hx Arthritis, Denies Hx Fibromyalgia, 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 bilat AKA, Reports Hx Musculoskeletal Trauma Skin Medical History: Denies Hx Eczema, Denies Hx Psoriasis Psychiatric Medical History: Reports: Hx Depression Traumatic Medical History: Denies: Hx Traumatic Brain Injury Infectious Medical History: Reports: Hx HIV - noncompliant with meds. Denies: Hx Hepatitis Past Surgical History: Reports: Hx Orthopedic Surgery - bilateral amputation, R BKA, L AKA, Hx Vascular Surgery - IVC filter, thrombectomy 05/18/2018 left arm, Other - Tunnel graft right axillary femoral bypass, dialysis fistula LUE - Immunizations Immunizations up to date: Yes Hx Diphtheria, Pertussis, Tetanus Vaccination: Yes Hx Pneumococcal Vaccination: 07/21/10 Review of Systems - Review of Systems Constitutional: denies: Chills, Fever Cardiovascular: Chest pain. denies: Palpitations Respiratory: Cough, Short of breath -: Yes All other systems reviewed and negative Physical Exam - Vital signs Vitals: Resp Pulse Ox 21 H 100 07/11/20 07:42 07/11/20 07:42 Interpretation: Normal - General General appearance: Appears well, Alert - HEENT Head: Normocephalic, Atraumatic Eyes: Normal Pupils: PERRL - Respiratory Respiratory status: Respiratory distress, Tachypnea - Mild Chest status: Nontender Breath sounds: Rales, Rhonchi Chest palpation: Normal - Cardiovascular Rhythm: Regular Heart sounds: Normal auscultation Murmur: No - Abdominal Inspection: Normal Distension: No distension Bowel sounds: Normal Tenderness: Nontender Organomegaly: No organomegaly - Back Back: Normal, Nontender - Extremities General upper extremity: Normal inspection, Nontender, Normal color, Normal ROM, Normal temperature General lower extremity: Nontender, Normal color - Neurological Neuro grossly intact: Yes Cognition: Normal Orientation: AAOx4 [place] Coma Scale Eye Opening: Spontaneous Star Coma Scale Verbal: Oriented [place] Coma Scale Motor: Obeys Commands Star Coma Scale Total: 15 Speech: Normal Motor strength normal: LUE, RUE, LLE, RLE Sensory: Normal - Psychological Associated symptoms: Normal affect, Normal mood - Skin Skin Temperature: Warm Skin Moisture: Dry Skin Color: Normal Course - Re-evaluation Re-evalutation: 07/11/20 09:46 Patient presents complaining of shortness of breath. He is due to dialyze today. I have seen the patient several times in the past for similar complaints. He appears to be somewhat fluid overloaded but he does appear stable for me to be able to send him by private transportation or community transportation to dialysis. It is currently 940 in the morning he is due there at 11. 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 His potassium is only minimally elevated. He has no significant ischemic EKG changes. His troponin is stable for him. His laboratory values are otherwise fairly unremarkable. His vital signs are stable as well. Subjectively he looks well h e is slightly tachypneic but this is to be expected. I think patient will be best served by being discharged and transferred to dialysis center. - Vital Signs Vital signs: Temp Pulse Resp BP Pulse Ox 98.0 F 90 14 139/79 H 100 07/11/20 07:49 07/11/20 07:49 07/11/20 09:01 07/11/20 09:01 07/11/20 09:01 - Laboratory Results Result Diagrams: 07/11/20 07:42 07/11/20 07:42 Laboratory Results Interpreted: 07/11/20 07/11/20 07:42 07:42 RBC 3.41 L Hgb 10.6 L Hct 31.8 L RDW 15.8 H Potassium 5.3 H Carbon Dioxide 20 L BUN 50 H Creatinine 10.52 H Est GFR ( Amer) 6 L Est GFR (MDRD) Non-Af 5 L Calcium 7.7 L Direct Bilirubin 0.8 H Critical Laboratory Results Reviewed: No Critical Results - Radiology Results Critical Radiology Results Reviewed: No Critical Results - EKG Interpretation by Me EKG shows normal: Sinus rhythm Rate: Normal - 89 Rhythm: NSR [place]/QRS: LAHB/LAFB Discharge - Discharge Clinical Impression: Chronic kidney disease with end stage renal failure on dialysis Pulmonary edema Qualifiers: Chronicity: acute Qualified Code(s): J81.0 - Acute pulmonary edema Condition: Stable Disposition: HOME, SELF-CARE Additional Instructions: Please go straight to your dialysis appointment Referrals: YOSHI JEAN-BAPTISTE NP [Primary Care Provider] - Follow up as needed
--- NOTE | 2020-07-11 12:22 | EKG REPORT ---
SEVERITY:- ABNORMAL ECG - SINUS RHYTHM LEFT ANTERIOR FASCICULAR BLOCK LEFT VENTRICULAR HYPERTROPHY BORDERLINE PROLONGED QT INTERVAL : Confirmed by: Marco Young MD 11-Jul-2020 12:22:14
== END 2020-07-11 09:50 | disposition home or self-care (01) ==
LOC: ER 07:35
DX: J81.0 Acute pulmonary edema (principal); R06.02 Shortness of breath; R53.1 Weakness; E11.22 Type 2 diabetes mellitus with diabetic chronic kidney disease; I13.2 Hypertensive heart and chronic kidney disease with heart failure and with stage 5 chronic kidney disease, or end stage renal disease; I50.9 Heart failure, unspecified; N18.6 End stage renal disease; Z99.2 Dependence on renal dialysis; Z79.4 Long term (current) use of insulin; F17.200 Nicotine dependence, unspecified, uncomplicated; I25.2 Old myocardial infarction; E78.00 Pure hypercholesterolemia, unspecified; B20 Human immunodeficiency virus [HIV] disease; Z91.19 Patient's noncompliance with other medical treatment and regimen
CPT/HCPCS: 36415; 71045; 80053; 82550; 82553; 84484; 85025; 93005; 93010; 99285